=== PATIENT | female | born 1980 | race Caucasian/White ===

== ENCOUNTER 2019-09-04 13:21 | Emergency (ER) | payer OTHER, SELFPAY ==
[2019-09-04 14:32] LABS: Absolute Lymphocytes (CBC) 2.3 K/uL (0.7-4.9); Basophils % 1.2 % (0-1.3); Hematocrit 37.3 % (36.0-45.0); Lymphocytes % 48.4 % (15.3-44.8); MPV 8.7 fL (7.6-11.3); RBC Red Blood Cell Count 4.31 M/uL (3.86-4.86)
[2019-09-04 14:38] LABS: Protime INR 1.03
[2019-09-04 15:04] LABS: ALT/SGPT 18 U/L (12-78); AST/SGOT 9 U/L (15-37); Albumin 4.2 g/dL (3.4-5.0); Alkaline Phosphatase 53 U/L (45-117); BUN Blood Urea Nitrogen 15 mg/dL (7-18); Bicarbonate 26 mmol/L (21-32); Bilirubin Direct 0.2 mg/dL (0-0.2); Bilirubin Total 0.7 mg/dL (0.2-1.0); Glucose Level 86 mg/dL (74-106); Potassium 3.9 mmol/L (3.5-5.1); Protein, Total 7.5 g/dL (6.4-8.2); Sodium Level 140 mmol/L (136-145)
[2019-09-04] MEDS ORDERED: THIAMINE 200 MG/2 ML INJ ONE (15:08)
[2019-09-04 15:09] LABS: Urine Blood NEGATIVE (NEG); Urine Glucose NEGATIVE (NEG); Urine Protein TRACE (NEG); Urine Specific Gravity >1.030 (1.005-1.030); Urine pH 5.5 (5.0-7.0)
[2019-09-04 15:20] LABS: Barbiturates NEGATIVE (NEGATIVE); Benzodiazepines NEGATIVE (NEGATIVE); Cocaine NEGATIVE (NEGATIVE); METHAMPHETAM POSITIVE (NEGATIVE); Methadone NEGATIVE (NEGATIVE); Opiates NEGATIVE (NEGATIVE); Phencyclidine NEGATIVE (NEGATIVE); THC Cannibis NEGATIVE (NEGATIVE)
--- NOTE | 2019-09-04 15:39 | RAD REPORT ---
EXAM DESCRIPTION: CT - CTHCSPWOC - 09/04/2019 3:24 pm CLINICAL HISTORY: Trauma, head and neck injury. Weakness;Pain COMPARISON: No comparisons TECHNIQUE: Axial 5 mm thick images of the head were obtained. Axial 2 mm thick images of the cervical spine were obtained with sagittal and coronal reconstruction images generated and reviewed. All CT scans are performed using dose optimization technique as appropriate and may include automated exposure control or mA/KV adjustment according to patient size. FINDINGS: CT HEAD WITHOUT CONTRAST: No acute hemorrhage, hydrocephalus or extra-axial collection is identified.No areas of brain edema or midline shift. The paranasal sinuses and mastoids are clear.The calvarium is intact. CT CERVICAL SPINE WITHOUT CONTRAST: No fracture or subluxation.No prevertebral soft tissues swelling is identified. IMPRESSION: No acute intracranial or cervical spine findings.
--- NOTE | 2019-09-04 15:39 | RAD REPORT ---
EXAM DESCRIPTION: RAD - Chest Single View - 09/04/2019 3:28 pm CLINICAL HISTORY: COUGH Chest pain. COMPARISON: No comparisons FINDINGS: Portable technique limits examination quality. The lungs are grossly clear. The heart is normal in size. No displaced fractures. IMPRESSION: No acute intrathoracic process suspected.
[2019-09-04 15:52] LABS: Magnesium 2.3 mg/dL (1.8-2.4); NT PRO-BNP 16 pg/mL (<125); Troponin (Emerg Dept Use Only) < 0.02 ng/mL (0.0-0.045)
[2019-09-04] MEDS ORDERED: NA CHLORIDE 0.9% 1,000 ML ONE (16:23)
--- NOTE | 2019-09-04 17:08 | EDPHYS ---
Physician Documentation [facility] Name: Anne Marie Cruz Age: 39 yrs Sex: Female : 1980 Arrival Date: 09/04/2019 Time: 13:23 Bed 25 Private MD: ED Physician Greg Barry HPI: 09/04 14:49 This 39 yrs old Female presents to ER via EMS with complaints of ams x 1 day. efraín 14:49 ams. The patient presents with confusion, decreased mental status. Onset: The efraín symptoms/episode began/occurred this morning. Possible causes: unknown. Associated signs and symptoms: The patient has no apparent associated signs or symptoms. Current symptoms: In the emergency department the patient's symptoms are unchanged from the initial presentation. Patient's baseline: Neuro: alert and fully oriented. FLUE BLOWER: 17:53 lmp unknown mg2 Historical: - Allergies: 13:35 Latex, Natural Rubber; mg2 - Home Meds: 13:35 Clonazepam Oral [Active]; Tramadol Oral [Active]; mg2 - PMHx: 13:35 Chronic pain; Anxiety; mg2 - Immunization history:: Flu vaccine status is unknown. - Ebola Screening: : No symptoms or risks identified at this time. - Family history:: not pertinent. - Social history:: Smoking status: unknown. ROS: 14:49 Constitutional: Negative for fever, chills, and weight loss, Eyes: Negative for injury, efraín pain, redness, and discharge, ENT: Negative for injury, pain, and discharge, Neck: Negative for injury, pain, and swelling, Cardiovascular: Negative for chest pain, palpitations, and edema, Respiratory: Negative for shortness of breath, cough, wheezing, and pleuritic chest pain, Abdomen/GI: Negative for abdominal pain, nausea, vomiting, diarrhea, and constipation, Back: Negative for injury and pain, : Negative for injury, bleeding, discharge, and swelling, MS/Extremity: Negative for injury and deformity, Skin: Negative for injury, rash, and discoloration, Psych: Negative for depression, anxiety, suicide ideation, homicidal ideation, and hallucinations, Allergy/Immunology: Negative for hives, rash, and allergies, Endocrine: Negative for neck swelling, polydipsia, polyuria, polyphagia, and marked weight changes, Hematologic/Lymphatic: Negative for swollen nodes, abnormal bleeding, and unusual bruising. 14:49 Neuro: Positive for altered mental status. Exam: 14:49 Constitutional: This is a well developed, well nourished patient who is awake, alert, efraín and in no acute distress. Head/Face: Normocephalic, atraumatic. Eyes: Pupils equal round and reactive to light, extra-ocular motions intact. Lids and lashes normal. Conjunctiva and sclera are non-icteric and not injected. Cornea within normal limits. Periorbital areas with no swelling, redness, or edema. ENT: Nares patent. No nasal discharge, no septal abnormalities noted. Tympanic membranes are normal and external auditory canals are clear. Oropharynx with no redness, swelling, or masses, exudates, or evidence of obstruction, uvula midline. Mucous membranes moist. Neck: Trachea midline, no thyromegaly or masses palpated, and no cervical lymphadenopathy. Supple, full range of motion without nuchal rigidity, or vertebral point tenderness. No Meningismus. Chest/axilla: Normal chest wall appearance and motion. Nontender with no deformity. No lesions are appreciated. Cardiovascular: Regular rate and rhythm with a normal S1 and S2. No gallops, murmurs, or rubs. Normal PMI, no JVD. No pulse deficits. Respiratory: Lungs have equal breath sounds bilaterally, clear to auscultation and percussion. No rales, rhonchi or wheezes noted. No increased work of breathing, no retractions or nasal flaring. Abdomen/GI: Soft, non-tender, with normal bowel sounds. No distension or tympany. No guarding or rebound. No evidence of tenderness throughout. Back: No spinal tenderness. No costovertebral tenderness. Full range of motion. Female : Normal external genitalia. Skin: Warm, dry with normal turgor. Normal color with no rashes, no lesions, and no evidence of cellulitis. MS/ Extremity: Pulses equal, no cyanosis. Neurovascular intact. Full, normal range of motion. Neuro: Awake and alert, GCS 15, oriented to person, place, time, and situation. Cranial nerves II-XII grossly intact. Motor strength 5/5 in all extremities. Sensory grossly intact. Cerebellar exam normal. Normal gait. Psych: Awake, alert, with orientation to person, place and time. Behavior, mood, and affect are within normal limits. 14:49 Neck: External neck: is normal, no acute changes, C-spine: appears grossly normal, no acute changes, Thyroid: appears normal, no acute changes, Trachea: is midline with no obvious abnormalities, no acute changes, ROM/movement: no acute changes, pain, Meningeal signs: are not present, Kernig's sign is negative, Brudzinski's sign is negative. Vital Signs: 13:33 BP 147 / 90; Pulse 72; Resp 18; Temp 96.9(A); Pulse Ox 100% on R/A; mg2 14:30 BP 133 / 78; Pulse 80; Resp 18; Pulse Ox 100% on R/A; mg2 16:14 BP 135 / 92; Pulse 79; Resp 18; Pulse Ox 100% on R/A; mg2 17:00 BP 133 / 84; Pulse 70; Resp 18; Pulse Ox 100% on R/A; mg2 17:40 Temp 98.7(O); mg2 18:11 BP 119 / 79; Pulse 81; Resp 18; Temp 98.7(O); Pulse Ox 100% on R/A; mg2 MDM: 13:55 Patient medically screened. [facility] 14:51 Data reviewed: vital signs, nurses notes, lab test result(s), EKG, radiologic studies, [facility] CT scan, plain films. 09/04 14:02 Order name: Acetaminophen; Complete Time: 16:23 mg2 09/04 14:02 Order name: Basic Metabolic Panel; Complete Time: 16:23 mg2 09/04 14:02 Order name: CBC with Diff; Complete Time: 16:23 mg2 09/04 14:02 Order name: ETOH Level; Complete Time: 16:23 mg2 09/04 14:02 Order name: Hepatic Function; Complete Time: 16:23 mg2 09/04 14:02 Order name: PT-INR; Complete Time: 16:23 mg2 09/04 14:02 Order name: Ptt, Activated; Complete Time: 16:23 mg2 09/04 14:02 Order name: Salicylate; Complete Time: 16:23 mg2 09/04 14:02 Order name: Urine Drug Screen; Complete Time: 16:23 mg2 09/04 14:48 Order name: Magnesium; Complete Time: 16:23 efraín 09/04 14:48 Order name: NT PRO-BNP; Complete Time: 16:23 efraín 09/04 14:48 Order name: Troponin (emerg Dept Use Only); Complete Time: 16:23 [facility] 09/04 15:06 Order name: Urine Dipstick--Ancillary (enter results); Complete Time: 16:23 [facility] 09/04 14:02 Order name: EKG; Complete Time: 14:04 [facility] 09/04 14:02 Order name: EKG - Nurse/Tech; Complete Time: 14:28 [facility] 09/04 14:03 Order name: IV Saline Lock; Complete Time: 14:03 [facility] 09/04 14:03 Order name: Labs collected and sent; Complete Time: 14:29 [facility] 09/04 14:03 Order name: Urine Dipstick-Ancillary (obtain specimen); Complete Time: 14:56 [facility] 09/04 14:48 Order name: XRAY Chest (1 view); Complete Time: 16:23 [facility] 09/04 14:48 Order name: Cardiac monitoring; Complete Time: 14:56 [facility] 09/04 14:48 Order name: O2 Per Protocol; Complete Time: 14:56 [facility] 09/04 14:48 Order name: O2 Sat Monitoring; Complete Time: 14:56 [facility] 09/04 15:06 Order name: Urine --Ancillary (enter results) [facility] 09/04 15:10 Order name: Urine --Ancillary [facility] 09/04 15:10 Order name: CT Head C Spine; Complete Time: 16:23 [facility] 09/04 16:23 Order name: TSH [facility] 09/04 14:53 Order name: Urine Test (obtain specimen); Complete Time: 14:57 [facility] Administered Medications: 15:13 Drug: Thiamine 100 mg Route: IV; Rate: per protocol; Site: left forearm; mg2 17:40 Follow up: Response: No adverse reaction; IV Status: Completed infusion mg2 16:24 Drug: NS 0.9% 1000 ml Route: IV; Rate: 1 bolus; Site: left forearm; mg2 17:40 Follow up: Response: No adverse reaction; IV Status: Completed infusion; IV Intake: mg2 1000ml Disposition: 09/04/19 17:07 Discharged to Home. Impression: Weakness, Altered mental status, unspecified. - Condition is Stable. - Discharge Instructions: Weakness, Fatigue, Weakness, Iiro-rx-Dbsq. - Medication Reconciliation Form, Thank You Letter, Antibiotic Education, Prescription Opioid Use form. - Follow up: Private Physician; When: 2 - 3 days; Reason: Recheck today's complaints, Continuance of care, Re-evaluation by your physician. Follow up: Howard Arroyo MD; When: 2 - 3 days; Reason: Recheck today's complaints, Re-evaluation by your physician. - Problem is new. - Symptoms are unchanged. Signatures: Dispatcher [employer] [facility] Greg Barry MD MD cha Gardose, Michele RN RN mg2 Corrections: (The following items were deleted from the chart) 14:59 14:48 Centeno ordered. [facility] mg2 15:19 14:49 Head Brain Wo Cont+CT.RAD.BRZ ordered. [facility] EDNY 16:40 14:49 Arterial Blood Gas+RC.LAB.BRZ ordered. [facility] EDNY 17:08 17:07 09/04/2019 17:07 Discharged to Home. Impression: Weakness. Condition is Stable. [facility] Forms are Medication Reconciliation Form, Thank You Letter, Antibiotic Education, Prescription Opioid Use. Follow up: Private Physician; When: 2 - 3 days; Reason: Recheck today's complaints, Continuance of care, Re-evaluation by your physician. Problem is new. Symptoms are unchanged. [facility] 17:09 17:08 09/04/2019 17:07 Discharged to Home. Impression: Weakness; Altered mental status, efraín unspecified. Condition is Stable. Discharge Instructions: Weakness, Fatigue, Weakness, Kijz-uj-Atne. Forms are Medication Reconciliation Form, Thank You Letter, Antibiotic Education, Prescription Opioid Use. Follow up: Private Physician; When: 2 - 3 days; Reason: Recheck today's complaints, Continuance of care, Re-evaluation by your physician. Problem is new. Symptoms are unchanged. [facility] 18:15 17:09 09/04/2019 17:07 Discharged to Home. Impression: Weakness; Altered mental status, mg2 unspecified. Condition is Stable. Discharge Instructions: Weakness, Fatigue, Weakness, Lcvs-so-Efgp. Forms are Medication Reconciliation Form, Thank You Letter, Antibiotic Education, Prescription Opioid Use. Follow up: Private Physician; When: 2 - 3 days; Reason: Recheck today's complaints, Continuance of care, Re-evaluation by your physician. Follow up: Howard Arroyo; When: 2 - 3 days; Reason: Recheck today's complaints, Re-evaluation by your physician. Problem is new. Symptoms are unchanged. efraín
--- NOTE | 2019-09-04 17:08 | ER ---
Nurse's Notes [facility] Name: Anne Marie Cruz Age: 39 yrs Sex: Female : 1980 Arrival Date: 09/04/2019 Time: 13:23 Bed 25 Private MD: Diagnosis: Weakness;Altered mental status, unspecified Presentation: 09/04 13:30 Presenting complaint: EMS states: mother called us because her daughter was unable to mg2 wake up. on scene patient was able to follow commands, move and walk to the stretcher, put on her jacket but she refused to talk and open her eyes. BGL-86 mg/dl. Transition of care: patient was not received from another setting of care. Onset of symptoms was September 04, 2019. Risk Assessment: Do you want to hurt yourself or someone else? Patient reports no desire to harm self or others. Initial Sepsis Screen: Does the patient meet any 2 criteria? No. Patient's initial sepsis screen is negative. Does the patient have a suspected source of infection? No. Patient's initial sepsis screen is negative. Care prior to arrival: None. 13:30 Method Of Arrival: EMS: [facility] mg2 13:30 Acuity: PARISH 3 mg2 Triage Assessment: 13:35 General: Appears in no apparent distress. comfortable, Behavior is not talking or mg2 opening her eyes but v/s stable . Pain: Unable to use pain scale. Patient appears quiet. 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 - Ebola Screening: : No symptoms or risks identified at this time. - Family history:: not pertinent. - Social history:: Smoking status: unknown. Screenin:42 Abuse screen: Denies threats or abuse. Denies injuries from another. Nutritional mg2 screening: No deficits noted. Tuberculosis screening: No symptoms or risk factors identified. Fall Risk. Assessment: 13:43 General: Appears Behavior is quiet. Pain: Unable to use pain scale. Patient appears mg2 quiet. Neuro: patient refused to talk or open her eyes. Cardiovascular: Capillary refill < 3 seconds Patient's skin is warm and dry. Respiratory: Airway is patent Respiratory effort is even, unlabored, Respiratory pattern is regular, symmetrical. 13:43 GI: No deficits noted. : No deficits noted. EENT: patient refused to open her eyes.. mg2 13:43 Derm: Skin is intact, is healthy with good turgor, Skin is pink, warm \T\ dry. normal. mg2 Musculoskeletal: Circulation, motion, and sensation intact. Capillary refill < 3 seconds. 14:57 Reassessment: patient assisted by her sister to the restroom. mg2 17:30 Reassessment: Patient appears in no apparent distress at this time. patient up for d/c mg2 once IVF is completed. 18:13 Reassessment: patient was able to move from bed to the wheelchair when told so. she mg2 perfectly obeys command except that she still refused to talk and open her eyes. d/c in stable condition. Vital Signs: 13:33 BP 147 / 90; Pulse 72; Resp 18; Temp 96.9(A); Pulse Ox 100% on R/A; mg2 14:30 BP 133 / 78; Pulse 80; Resp 18; Pulse Ox 100% on R/A; mg2 16:14 BP 135 / 92; Pulse 79; Resp 18; Pulse Ox 100% on R/A; mg2 17:00 BP 133 / 84; Pulse 70; Resp 18; Pulse Ox 100% on R/A; mg2 17:40 Temp 98.7(O); mg2 18:11 BP 119 / 79; Pulse 81; Resp 18; Temp 98.7(O); Pulse Ox 100% on R/A; mg2 ED Course: 13:23 Patient arrived in ED. aa5 13:30 Gallo Macias, RN is Primary Nurse. mg2 13:33 Triage completed. mg2 13:35 Arm band placed on. mg2 13:55 Greg Barry MD is Attending Physician. efraín 14:03 No provider procedures requiring assistance completed. Inserted saline lock: 22 gauge mg2 in left forearm, using aseptic technique. 14:57 Patient has correct armband on for positive identification. 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 Pulse mg2 ox on. NIBP on. Door closed. Warm blanket given. 15:24 CT completed. Patient tolerated procedure well. Patient moved to radiology. bq 15:25 CT Head C Spine In Process Unspecified. EDMS 15:28 XRAY Chest (1 view) In Process Unspecified. EDMS 17:09 Howard Arroyo MD is Referral Physician. efraín 18:15 IV discontinued, intact, bleeding controlled, No redness/swelling at site. Pressure mg2 dressing applied. Administered Medications: 15:13 Drug: Thiamine 100 mg Route: IV; Rate: per protocol; Site: left forearm; mg2 17:40 Follow up: Response: No adverse reaction; IV Status: Completed infusion mg2 16:24 Drug: NS 0.9% 1000 ml Route: IV; Rate: 1 bolus; Site: left forearm; mg2 17:40 Follow up: Response: No adverse reaction; IV Status: Completed infusion; IV Intake: mg2 1000ml Intake: 17:40 IV: 1000ml; Total: 1000ml. mg2 Outcome: 17:07 Discharge ordered by . efraín 18:15 Discharged to home via wheelchair, with family. mg2 18:15 Condition: stable 18:15 Discharge instructions given to family, Instructed on discharge instructions, follow up and referral plans. Demonstrated understanding of instructions, follow-up care. 18:15 Patient left the ED. mg2 Signatures: Dispatcher [employer] Greg Wilson MD MD cha Quilty, Betty bq Calderon, Audri, RN RN aa5 Gallo Macias, HILLARY RN mg2
[2019-09-04 18:51] VITALS: O2SAT 100
[2019-09-04 18:55] VITALS: TEMP 98.7
[2019-09-04 18:56] VITALS: BP 119/79
--- NOTE | 2019-09-05 10:05 | EKG ---
Test Date: 2019-09-04 Test Time: 14:26:02 Career Services Officer: CLAU MEASUREMENT RESULTS: Intervals: Rate: 81 IL: 126 QRSD: 92 QT: 366 QTc: 425 [place]: P: 47 IL: 126 QRS: 53 T: 51 INTERPRETIVE STATEMENTS: Normal sinus rhythm Normal ECG No previous ECG available for comparison Electronically Signed On 09-05-19 10:04:42 STRAIGHTEDGE WORKER by Jayro Wall
== END 2019-09-04 18:15 | disposition home or self-care (01) ==
LOC: ER 13:21
DX: R53.1 Weakness (principal); F41.9 Anxiety disorder, unspecified; Z91.040 Latex allergy status; Z91.048 Other nonmedicinal substance allergy status
CPT/HCPCS: 36415; 70450; 71045; 72125; 80048; 80076; 80307; 80320; 80329; 81003; 81025; 83735; 83880; 84443; 84484; 85025; 85610; 85730; 93005; 96365; 96366; 99284; J3411; J7030

== ENCOUNTER 2019-09-29 09:09 | Emergency (ER) | payer SELFPAY ==
--- NOTE | 2019-09-29 09:45 | ER ---
Nurse's Notes [facility] Name: Anne Marie Cruz Age: 39 yrs Sex: Female : 1980 Arrival Date: 09/29/2019 Time: 09:11 Bed Waiting Private MD: Diagnosis: Presentation: 09/29 09:23 Presenting complaint: Patient states: "the police think i should go to the ER, because iw I'm on Beny Bentley". 09:25 Presenting complaint: Patient states: pt is A\\T\\O X 4, was brought to hospital by [place] PD, pt requesting to leave and see her PCP, does not want to be evaluated in ER, states she has not started her Zyprexa yet because the first Warning on the label stated she could , pt denies suicidal ideation and denies homicidal ideation. Transition of care: patient was not received from another setting of care. Onset of symptoms was September 29, 2019. Risk Assessment: Do you want to hurt yourself or someone else? Patient reports no desire to harm self or others. Initial Sepsis Screen: Does the patient meet any 2 criteria? No. Patient's initial sepsis screen is negative. Does the patient have a suspected source of infection? No. Patient's initial sepsis screen is negative. Care prior to arrival: None. 09:25 Method Of Arrival: Ambulatory iw 09:31 Acuity: PARISH 5 iw 09:31 Note pt states she wants to follow up with her PCP because it's cheaper. iw MINER PICK: 09:28 LMP 09/09/2019 iw Historical: - Allergies: 09:28 Latex, Natural Rubber; iw - PMHx: 09:28 Anxiety; Chronic pain; iw - Immunization history:: Adult Immunizations not up to date. - Social history:: Smoking status: Patient/guardian denies using tobacco. - Ebola Screening: : Patient negative for fever greater than or equal to 101.5 degrees Fahrenheit, and additional compatible Ebola Virus Disease symptoms Patient denies exposure to infectious person Patient denies travel to an Ebola-affected area in the 21 days before illness onset No symptoms or risks identified at this time. Vital Signs: 09:28 BP 129 / 87; Pulse 97; Resp 16; Temp 98.2; Pulse Ox 100% on R/A; Weight 67.59 kg; iw Height 5 ft. 4 in. (162.56 cm); Pain 0/10; 09:28 Body Mass Index 25.58 (67.59 kg, 162.56 cm) iw ED Course: 09:11 Patient arrived in ED. mr 09:28 Triage completed. iw 09:28 Arm band placed on. iw Administered Medications: No medications were administered Outcome: :44 Eloped from waiting room, before seeing physician Time discovered patient gone: iw September 29, 2019 at 09:44 09:45 Patient left the ED. iw Signatures: Thania De Los Santos mr Bernadette Vieyra, RN RN iw Corrections: (The following items were deleted from the chart) 09:31 09:25 Acuity: PARISH 3 iw iw
[2019-09-29 09:50] VITALS: BP 129/87; TEMP 98.2; O2SAT 100
== END 2019-09-29 09:45 | disposition left against medical advice (07) ==
LOC: ER 09:09
DX: Z53.21 Procedure and treatment not carried out due to patient leaving prior to being seen by health care provider (principal)
CPT/HCPCS: 99281

== ENCOUNTER 2021-06-01 16:31 | Emergency (ER) | payer OTHER ==
--- OUTSIDE RECORDS SUMMARY | 2021-06-01 16:34 | XMS REPORT | Continuity of Care Document ---
:[address] [facility] t Address [address] [place] [address] Care Team Providers Name Role Phone Chi Caceres MD Attending Clinician Peng PARKER Attending Clinician Ric Sims Attending Clinician Doctor Unassigned, Name Attending Clinician Unavailable Problems This patient has no known problems. Allergies, Adverse Reactions, Alerts This patient has no known allergies or adverse reactions. Medications This patient has no known medications. Procedures This patient has no known procedures. Encounters Start End Encounter Admission Attending Care Care Encounter Source Date/Time Date/Time Type Type Clinicians Facility Department ID 2021-05-25 2021-05-25 Telephone [facility] [id number] 00:00:00 00:00:00 [facility] [id number] [facility] [id number] Professio [phone] [place] [address] 2021-05-21 2021-05-21 [facility] [id number] 00:00:00 00:00:00 [facility] [id number] [facility] [id number] Professio [phone] [place] [address] 2021-05-05 2021-05-05 Emergency [facility] [id number] 11:42:00 13:42:00 Marc [place] [id number] [place] [id number] [place] [id number] 2021-05-04 2021-05-[address] [facility] [id number] 00:00:00 00:00:00 [facility] [id number] [place] [id number] Professio [phone] [place] [address] [address] 2021-05-03 2021-05-[address] [facility] [id number] 17:09:02 17:56:[facility] [id number] [place] [id number] Professio [phone] [place] [address] [address] 2021-04-25 2021-04-25 Office [facility] [id number] 10:32:12 10:47:12 Visit [facility] [id number] Edward [place] [id number] Professio [phone] [place] [address] [address] 2021-04-25 2021-04-25 Orders Doctor DESTINEY [id number] 00:00:00 00:00:00 Only Unassigned, IJEOMA [id number] [place] [facility] [id number] Results This patient has no known results.
[2021-06-01] MEDS ORDERED: DIPHENHYDRAMINE 50 MG/ML VIAL ONE (21:52)
[2021-06-01] MEDS ORDERED: LORazepam 2 MG/ML VIAL ONE (21:52)
[2021-06-01 23:17] LABS: Urine Blood Trace-lysed (Negative); Urine Glucose Negative (Negative); Urine Protein Negative (Negative); Urine Specific Gravity 1.025 (1.005-1.030); Urine pH 5.5 (5.0-7.0)
[2021-06-01 23:24] LABS: Basophils % 0.9 % (0-1.3); Hematocrit 38.3 % (36.0-45.0); Lymphocytes % 27.3 % (15.3-44.8); MPV 8.5 fL (7.6-11.3); RBC Red Blood Cell Count 4.37 M/uL (3.86-4.86)
[2021-06-01 23:28] LABS: Protime INR 1.03
[2021-06-01 23:29] LABS: Urine Specific Gravity/Preg 1.025 (1.005-1.030)
[2021-06-01 23:45] LABS: ALT/SGPT 21 U/L (12-78); AST/SGOT 16 U/L (15-37); Albumin 4.3 g/dL (3.4-5.0); Alkaline Phosphatase 84 U/L (45-117); BUN Blood Urea Nitrogen 9 mg/dL (7-18); Bicarbonate 28 mmol/L (21-32); Bilirubin Direct 0.1 mg/dL (0-0.2); Bilirubin Total 0.5 mg/dL (0.2-1.0); Glucose Level 84 mg/dL (74-106); Potassium 3.2 mmol/L (3.5-5.1); Protein, Total 7.9 g/dL (6.4-8.2); Sodium Level 139 mmol/L (136-145)
[2021-06-01 23:52] LABS: Barbiturates NEGATIVE (NEGATIVE); Benzodiazepines NEGATIVE (NEGATIVE); Cocaine NEGATIVE (NEGATIVE); METHAMPHETAM POSITIVE (NEGATIVE); Methadone NEGATIVE (NEGATIVE); Opiates NEGATIVE (NEGATIVE); Phencyclidine NEGATIVE (NEGATIVE); THC Cannibis NEGATIVE (NEGATIVE)
[2021-06-02] MEDS ORDERED: NA CHLORIDE 0.9% 500 ML ONE ×2 (01:31→04:34)
[2021-06-02] MEDS ORDERED: KCL 20 MEQ/100 mL IVPB 20 MEQ/100 ML BAG IV ONE (01:32)
--- NOTE | 2021-06-02 02:40 | EDPHYS ---
Physician Documentation [facility] Name: Anne Marie Cruz Age: 40 yrs Sex: Female : 1980 Arrival Date: 06/01/2021 Time: 16:55 Bed 14 Private MD: ED Physician Tian Plasencia HPI: 06/01 17:15 This 40 yrs old Female presents to ER via Unassigned with complaints of cp Confusion. 17:15 The patient presents to the emergency department with paranoia. Onset: The cp symptoms/episode began/occurred at an unknown time. Past psychiatric history: Prior diagnosis: ADHD, Psychiatric medications include: Adderall. Associated signs and symptoms: Pertinent negatives: abdominal pain, chest pain, homicidal ideation, suicide ideation. 17:15 Patient uncooperative, making paranoid statements concerning the government and cp attempting to take clothes off in ED. Historical: - Allergies: 06/02 03:01 Latex, Natural Rubber; bb - Home Meds: 03:01 Clonazepam Oral [Active]; Tramadol Oral [Active]; bb - PMHx: 03:01 Anxiety; Chronic pain; Bipolar disorder; bb - Immunization history:: Adult Immunizations unknown. - Social history:: Smoking status: unknown. ROS: 06/01 17:20 Constitutional: Negative for fever, poor PO intake. cp 17:20 Cardiovascular: Negative for chest pain. cp 17:20 Respiratory: Negative for cough, shortness of breath, wheezing. 17:20 Abdomen/GI: Negative for abdominal pain, nausea, vomiting, and diarrhea. 17:20 Neuro: Negative for headache. 17:20 All other systems are negative. 17:20 Psych: Positive for visual hallucinations, homicidal ideation, suicide gesture, cp suicidal ideation. 17:20 Eyes: Negative for injury, pain, redness, and discharge. cp 17:20 Unable to obtain ROS due to patient being uncooperative. Exam: 17:30 Constitutional: The patient appears in no acute distress, alert, awake, non-toxic, well cp developed, well nourished. 17:30 Head/Face: Normocephalic, atraumatic. cp 17:30 Eyes: Pupils: equal, round, and reactive to light and accomodation, Conjunctiva: normal, no exudate, no injection, Sclera: no appreciated abnormality, Lids and lashes: appear normal, bilaterally. 17:30 ENT: External ear(s): are unremarkable, Nose: is normal, Mouth: Lips: moist, Oral mucosa: moist, Posterior pharynx: Airway: no evidence of obstruction, patent. 17:30 Neck: ROM/movement: is normal, is supple, without pain, no range of motions limitations, no meningismus. 17:30 Chest/axilla: Inspection: normal, Palpation: is normal, no crepitus, no tenderness. 17:30 Cardiovascular: Rhythm: regular. 17:30 Respiratory: the patient does not display signs of respiratory distress, Respirations: normal, no use of accessory muscles, no retractions, labored breathing, is not present, Breath sounds: are clear throughout, no decreased breath sounds, no stridor, no wheezing. 17:30 Abdomen/GI: Inspection: abdomen appears normal, Palpation: abdomen is soft and non-tender, in all quadrants. 17:30 Neuro: Orientation: to person, situation, Motor: moves all fours, strength is normal. 17:30 Psych: Behavior/mood is uncooperative, Affect is animated. 22:30 ECG was reviewed by the Attending Physician. Vital Signs: 06/02 00:00 BP 111 / 75; Pulse 54; Resp 16; Pulse Ox 100% on R/A; fu 02:48 BP 119 / 64; Pulse 45; Resp 16; Temp 98.2(A); Pulse Ox 100% on R/A; fu 04:00 BP 114 / 81; Pulse 47; Resp 18; Temp 98(A); Pulse Ox 100% on R/A; fu Procedures: 06/01 22:59 Peripheral line: by aseptic technique a peripheral line was placed in the right antecubital vein. MDM: 06/02 00:30 Data reviewed: vital signs, nurses notes, lab test result(s), EKG, I have discussed the patient's presentation/case with the attending Emergency Department Physician; and as a result, I will attempt to transfer to psych facility for evaluation. 02:39 Patient medically screened. 06/01 16:56 Order name: Acetaminophen 06/01 16:56 Order name: Basic Metabolic Panel; Complete Time: 00:14 06/02 00:14 Interpretation: Normal except: K 3.2. 06/01 16:56 Order name: CBC with Diff; Complete Time: 00:14 cp 06/01 16:56 Order name: ETOH Level; Complete Time: 00:14 06/01 16:56 Order name: Hepatic Function; Complete Time: 00:14 cp 06/02 00:14 Interpretation: Normal except: GLOB 3.6. 06/01 16:56 Order name: PT-INR; Complete Time: 00:14 cp 06/01 16:56 Order name: Ptt, Activated; Complete Time: 00:14 cp 06/01 16:56 Order name: Salicylate; Complete Time: 00:14 cp 06/01 16:56 Order name: Urine Drug Screen; Complete Time: 00:14 cp 06/02 00:14 Interpretation: Abnormal: METHAMPHETAMINE POSITIVE. 06/01 16:56 Order name: Acetaminophen Level; Complete Time: 00:14 EDMS 06/01 22:57 Order name: Glucose, Ancillary Testing; Complete Time: 00:14 EDMS 06/01 23:17 Order name: Urine Dipstick-Ancillary; Complete Time: 00:14 EDMS 06/02 00:15 Interpretation: Normal except: UKET 3+; UBLD Trace-lysed. 06/01 23:21 Order name: Urine --Ancillary (enter results); Complete Time: 00:14 tt3 06/01 16:56 Order name: EKG; Complete Time: 16:56 06/01 16:56 Order name: EKG - Nurse/Tech 06/01 16:56 Order name: IV Saline Lock 06/01 16:56 Order name: Labs collected and sent 06/01 16:56 Order name: Suicide Screening ([place]) 06/01 16:56 Order name: Urine Dipstick-Ancillary (obtain specimen) 06/02 04:35 Order name: SARS-COV-2 RT PCR; Complete Time: 04:39 EDMS 06/01 16:56 Order name: Urine Test (obtain specimen) 06/02 01:14 Order name: Vital Signs; Complete Time: 02:51 cp EC/13 22:30 Rate is 74 beats/min. Rhythm is regular. SC interval is normal. QRS interval is normal. cp QT interval is normal. T waves are Inverted in lead aVR. Interpreted by me. Reviewed by me. Administered Medications: 20:01 Not Given (Physician Discretion): Geodon (ziprasidone) 10 mg IM once iw 20:01 Drug: Geodon (ziprasidone) 20 mg Route: IM; Site: left deltoid; iw 20:16 CANCELLED (Physician Discretion): Benadryl (diphenhydrAMINE) 25 mg IM once cp 20:16 CANCELLED (Physician Discretion): Ativan (LORazepam) 1 mg IM once cp 21:30 Drug: Benadryl (diphenhydrAMINE) 25 mg Route: IM; Site: left deltoid; bb 22:05 Drug: Ativan (LORazepam) 2 mg Route: IM; Site: left deltoid; bb 06/02 01:17 Drug: Potassium Chloride 20 mEq Route: IV; Rate: calculated rate; Site: right fu antecubital; 02:17 Follow up: Response: No adverse reaction fu 01:17 Drug: NS 0.9% 1000 ml Route: IV; Rate: 500 ml/hr; Site: right antecubital; fu 02:17 Follow up: Response: No adverse reaction; IV Intake: 1000ml fu Disposition Summary: 06/02/21 02:39 Transfer Ordered Transfer Location: [facility] Facility cp Reason: Higher level of care cp Condition: Stable cp Problem: an acute exacerbation cp Symptoms: are unchanged cp Accepting Physician: Dr. Da Silva(06/02/21 07:41) eb Diagnosis - Unspecified psychosis not due to a substance or known physiological condition cp Discharge Instructions: - Discharge Summary Sheet tt3 Forms: - Medication Reconciliation Form tt3 - SBAR form tt3 Addendum: 06/04/2021 07:10 Co-signature as Attending Physician, Tian Plasencia MD I agree with the assessment and k dr plan of care. Signatures: Dispatcher [employer] EDLA Tian Plasencia MD MD [facility] Barbara uHa RN RN bb Bernadette Vieyra RN RN iw Greg Olguin PA PA cp Isaac Pino RN RN Sushma Parsons Maurice, MD MD [email or web address] Corrections: (The following items were deleted from the chart) 06/01 20:16 16:56 Benadryl (diphenhydrAMINE) 25 mg IM once ordered. cp cp 20:16 17:40 Ativan (LORazepam) 1 mg IM once ordered. cp cp 06/02 03:10 02:58 CORONAVIRUS+MRKHADAR.BRZ ordered. EDMS EDMS 04:44 02:39 Doctor jeovanny [email or web address] 07:41 04:44 Dr. Da Silva [facility]
--- NOTE | 2021-06-02 02:40 | ER ---
Nurse's Notes [facility] Name: Anne Marie Cruz Age: 40 yrs Sex: Female : 1980 Arrival Date: 06/01/2021 Time: 16:55 Bed 14 Private MD: Diagnosis: Unspecified psychosis not due to a substance or known physiological condition Presentation: 06/02 00:00 Method Of Arrival: EMS: [facility] fu 00:00 Chief complaint: EMS states: paranoia. Coronavirus screen: At this time, unable to fu obtain information related to travel outside the [place] Ebola Screen: No symptoms or risks identified at this time. Initial Sepsis Screen: Does the patient meet any 2 criteria? No. Patient's initial sepsis screen is negative. Does the patient have a suspected source of infection? No. Patient's initial sepsis screen is negative. Risk Assessment: Do you want to hurt yourself or someone else? Patient reports desire/thoughts of hurting themselves or someone else. Provider notified. Onset of symptoms is unknown. 00:00 Acuity: PARISH 2 bb Historical: - Allergies: 03:01 Latex, Natural Rubber; bb - Home Meds: 03:01 Clonazepam Oral [Active]; Tramadol Oral [Active]; bb - PMHx: 03:01 Anxiety; Chronic pain; Bipolar disorder; bb - Immunization history:: Adult Immunizations unknown. - Social history:: Smoking status: unknown. Screenin:02 Abuse screen: Denies threats or abuse. Nutritional screening: No deficits noted. bb Tuberculosis screening: No symptoms or risk factors identified. Fall Risk None identified. Assessment: 00:00 General: Appears in no apparent distress. patient asleep at this time, restrained on fu both wrist and both legs, no circulatory impediments noted. Pain: Unable to use pain scale. asleep. 02:45 Reassessment: Received call from [facility] staff, updated on patient status, fu questions were answered. Needs COVID test result. To fax results to [phone]. 02:50 Reassessment: Received call from HILLARY [facility], Question fu were answered. Needs COVID test results. To fax COVID test results to [phone]. 03:32 Reassessment: Received call from [facility]. Questions were answered, fu Will call COVID results to [phone]. 03:45 Reassessment: Received call from [facility] [employer] stating that they can only fu accept patient if patient is out of restraints for 4 hours. 04:32 Reassessment: 4 point restraints checked, circulatory impediments noted. fu 05:25 Reassessment: Patient removed her restraints< IV line and trying to get out of bed and fu hospital premises. Code denton announced. 05:53 Reassessment: called pt's father per her request he said he would come pick her up bb after he got up this morning. 06:55 Reassessment: Patient left AMA, refuse to sign AMA paper, Patient father signed fu instead. Patient left ambulatory with her father. Vital Signs: 00:00 BP 111 / 75; Pulse 54; Resp 16; Pulse Ox 100% on R/A; fu 02:48 BP 119 / 64; Pulse 45; Resp 16; Temp 98.2(A); Pulse Ox 100% on R/A; fu 04:00 BP 114 / 81; Pulse 47; Resp 18; Temp 98(A); Pulse Ox 100% on R/A; fu ED Course: 06/01 16:55 Patient arrived in ED. kdr 16:55 Greg Olguin PA is PHCP. cp 16:55 Tian Plasencia MD is Attending Physician. cp 17:06 sister Jovanna called to leave her cell number [phone]/ she also left her mother's eb cell number at [phone]./ please call them if we need any assistance with her. 22:15 Arm band placed on Patient placed in an exam room, on a stretcher, on pulse oximetry. bb 22:30 Patient has correct armband on for positive identification. bb 23:36 Isaac Pino, HILLARY is Primary Nurse. fu 06/02 01:35 Triage completed. fu 01:35 No provider procedures requiring assistance completed. fu Administered Medications: 06/01 20:01 Not Given (Physician Discretion): Geodon (ziprasidone) 10 mg IM once iw 20:01 Drug: Geodon (ziprasidone) 20 mg Route: IM; Site: left deltoid; iw 20:16 CANCELLED (Physician Discretion): Benadryl (diphenhydrAMINE) 25 mg IM once cp 20:16 CANCELLED (Physician Discretion): Ativan (LORazepam) 1 mg IM once cp 21:30 Drug: Benadryl (diphenhydrAMINE) 25 mg Route: IM; Site: left deltoid; bb 22:05 Drug: Ativan (LORazepam) 2 mg Route: IM; Site: left deltoid; bb 08 01:17 Drug: Potassium Chloride 20 mEq Route: IV; Rate: calculated rate; Site: right fu antecubital; 02:17 Follow up: Response: No adverse reaction fu 01:17 Drug: NS 0.9% 1000 ml Route: IV; Rate: 500 ml/hr; Site: right antecubital; fu 02:17 Follow up: Response: No adverse reaction; IV Intake: 1000ml fu Intake: 02:17 IV: 1000ml; Total: 1000ml. fu Outcome: 02:39 ER care complete, transfer ordered by . cp 07:06 AMA Other Refused to sign fu 07:41 Patient left the ED. eb Signatures: Tian Plasencia MD MD [facility] Barbara Hua RN RN bb Bernadette Vieyra RN RN Greg Shetty PA PA Isaac Pino RN RN Sushma Parsons Corrections: (The following items were deleted from the chart) 01:28 01:25 General: Appears in no apparent distress. patient asleep at this time, restrained fu on both wrist and both legs, no circulatory impediments noted. fu 01:28 01:25 Pain: Unable to use pain scale. asleep fu fu 03:01 00:00 Acuity: PARISH 4 fu 03:10 03:01 CORONAVIRUS+MR.LAB.KENISHA drawn and sent. fu EDMS 03:22 02:45 Reassessment: Received call from [facility] staff, updated on patient fu status, questions were answered. Needs COVID test result. fu 06:27 04:25 BP 0 / ???; Response: No adverse reaction; IV Intake: 1000ml fu fu
[2021-06-02] MEDS ORDERED: CEFTRIAXONE/SWI 1gm 2 GM/20 ML SYR ONE (02:44)
[2021-06-02 07:49] VITALS: O2SAT 100
[2021-06-02 07:53] VITALS: BP 114/81; TEMP 98
== END 2021-06-02 07:41 ==
LOC: ER 16:31
PROC: 05HD33Z Insertion of Infusion Device into Right Cephalic Vein, Percutaneous Approach (ICD-10-PCS; principal; 2021-06-02)
DX: F29 Unspecified psychosis not due to a substance or known physiological condition (principal); F31.9 Bipolar disorder, unspecified; Z20.822 Contact with and (suspected) exposure to COVID-19; Z91.040 Latex allergy status; Z91.048 Other nonmedicinal substance allergy status
CPT/HCPCS: 93005; 85025; 80048; 36415; 80320; 80329 ×2; 81025; 85610; 82947; 80076; 85730; 81003; 80307; 96372; 96374; 99283; 36569; U0003; J1200; J3480; J0696; J7040 ×2

== ENCOUNTER 2021-06-24 18:41 | Emergency (ER) | payer OTHER ==
--- OUTSIDE RECORDS SUMMARY | 2021-06-24 18:44 | XMS REPORT | Continuity of Care Document ---
:1980 Author Organization [facility] t Address [address] [place] [address] Care Team Providers Name Role Phone Chi [...] Clinicians Facility Department ID 2021-05-25 2021-05-25 [id number] 00:00:00 00:00:00 [facility] [id number] [facility] [id number] Professio [phone] nal [address] 2021-05-21 2021-05-21 [facility] [id number] 00:00:00 00:00:00 [facility] [id number] [facility] [id number] Professio [phone] nal [address] 2021-05-05 2021-05-05 Emergency [facility] [id number] 11:42:00 13:42:00 Marc Bangura [id number] [place] [id number] [place] [phone] [phone] 2021-05-04 Telephone [facility] [id number] 00:00:00 00:00:00 [facility] [id number] [place] [id number] Professio [phone] [place] [address] [address] 2021-05-03 2021-05-03 Urgent [facility] [id number] 17:09:02 17:56:38 Care [facility] [id number] [place] [id number] Professio [phone] [place] [address] [address] 2021-04-25 2021-04-25 Office [facility] [id number] 10:32:12 10:47:12 Visit [facility] [id number] Edward [place] [id number] Professio [phone] [place] [address] [address] 2021-04-25 2021-04-25 Orders Doctor DESTINEY [id number] 00:00:00 00:00:00 Only Unassigned, IJEOMA [id number] [place] [facility] [phone] [id number] Results This patient has no known results.
--- NOTE | 2021-06-24 21:59 | EDPHYS ---
Physician Documentation [facility] Name: Anne Marie Cruz Age: 40 yrs Sex: Female : 1980 Arrival Date: 06/24/2021 Time: 18:41 Bed DX3 Private MD: ED Physician Jason White HPI: 06/24 21:54 This 40 yrs old Female presents to ER via Ambulatory with complaints of r/o cp covid. 21:54 The patient or guardian reports cough. cp 21:54 Onset: The symptoms/episode began/occurred for months. Associated signs and symptoms: cp Pertinent positives: sinus pressure/congestion times 1 week, headache times 1 day, Pertinent negatives: ear ache, fever, sore throat, vomiting. Severity of symptoms: in the emergency department the symptoms are unchanged. Patient admits to smoking 2 packs cigarettes per day. Historical: - Allergies: 20:33 Latex, Natural Rubber; kg - Home Meds: 20:33 Clonazepam Oral [Active]; Tramadol Oral [Active]; kg - PMHx: 20:33 Anxiety; Bipolar disorder; Chronic pain; kg - PSHx: 20:33 None; kg - Immunization history:: Adult Immunizations not up to date, Client reports having NOT received the Covid vaccine. - Social history:: Smoking status: Patient reports the use of cigarette tobacco products, smokes one pack cigarettes per day. ROS: 21:54 Eyes: Negative for injury, pain, redness, and discharge. cp 21:54 Constitutional: Negative for body aches, chills, fever, poor PO intake. 21:54 ENT: Positive for sinus congestion. 21:54 Cardiovascular: Negative for chest pain, palpitations. 21:54 Respiratory: Positive for cough, "sounds productive", Negative for shortness of breath, wheezing. 21:54 Abdomen/GI: Negative for abdominal pain, nausea, vomiting, and diarrhea. 21:54 Neuro: Positive for headache, Negative for altered mental status, weakness. Exam: 21:55 Constitutional: The patient appears in no acute distress, alert, awake, non-toxic, well cp developed, well nourished. 21:55 Head/face: Sinus tenderness, that is mild, is located over the right frontal sinus, left frontal sinus, right maxillary sinus and left maxillary sinus. 21:55 Eyes: Periorbital structures: appear normal, Conjunctiva: normal, no exudate, no injection, Sclera: no appreciated abnormality, Lids and lashes: appear normal, bilaterally. 21:55 ENT: External ear(s): are unremarkable, Ear canal(s): are normal, clear, TM's: dullness, bilaterally, Nose: is normal, Posterior pharynx: Airway: no evidence of obstruction, patent. 21:55 Neck: ROM/movement: is normal, is supple, no meningismus, no nuchal rigidity. 21:55 Chest/axilla: Inspection: normal, Palpation: is normal, no crepitus, no tenderness. cp 21:55 Cardiovascular: Rate: normal. 21:55 Respiratory: the patient does not display signs of respiratory distress, Respirations: normal, no use of accessory muscles, no retractions, labored breathing, is not present, Breath sounds: decreased breath sounds, are not appreciated, stridor, is not appreciated, + upper airway congestion. wheezing: is not appreciated. 21:55 Abdomen/GI: Exam negative for discomfort, distension, guarding, Inspection: abdomen appears normal. 21:55 Neuro: Orientation: to person, place \\T\\ time. Mentation: is normal, Motor: moves all cp fours, strength is normal, Gait: is steady, at a normal pace, without difficulty. Vital Signs: 20:30 BP 139 / 93; Pulse 97; Resp 20; Temp 98.1(TE); Pulse Ox 100% on R/A; Weight 72.57 kg kg (R); Height 5 ft. 4 in. (162.56 cm) (R); Pain 9/10; 20:30 Body Mass Index 27.46 (72.57 kg, 162.56 cm) kg MDM: 21:50 Patient medically screened. cp 21:57 Data reviewed: vital signs, nurses notes, lab test result(s). cp 21:57 Differential diagnosis: bronchitis, flu, URI, sinusitis. Counseling: I had a detailed cp discussion with the patient and/or guardian regarding: the historical points, exam findings, and any diagnostic results supporting the discharge/admit diagnosis, lab results, to return to the emergency department if symptoms worsen or persist or if there are any questions or concerns that arise at home. 06/24 20:08 Order name: COVID-19 : Document "Date of Symptom Onset" if Symptomatic. kg 06/24 20:36 Order name: CORONAVIRUS EDMS 06/24 21:30 Order name: SARS-COV-2 RT PCR; Complete Time: 22:01 EDMS Administered Medications: No medications were administered Disposition: 22:05 Chart complete. cp 06/25 07:40 Co-signature as Attending Physician, Jason White MD. [email or web address] Disposition Summary: 06/24/21 21:58 Discharge Ordered Location: Home cp Problem: new cp Symptoms: are unchanged cp Condition: Stable cp Diagnosis - Acute sinusitis, unspecified cp - Bronchitis, not specified as acute or chronic cp Followup: cp - With: Private Physician - When: 2 - 3 days - Reason: Worsening of condition Discharge Instructions: - Discharge Summary Sheet cp - Chronic Bronchitis, Adult cp - Sinusitis, Adult cp - Steps to Quit Smoking cp - Smoking Tobacco Information, Adult cp Forms: - Medication Reconciliation Form cp - Thank You Letter cp - Antibiotic Education cp - Prescription Opioid Use cp Prescriptions: - Flonase Allergy Relief 50 mcg/actuation Nasal spray,suspension - inhale 1 spray by INTRANASAL route once daily for 10 days; 1 Applicator; cp Refills: 0, Product Selection Permitted - Augmentin 875-125 mg Oral Tablet - take 1 tablet by ORAL route every 12 hours for 10 days; 20 tablet; Refills: 0, cp Product Selection Permitted - Tessalon Perles 100 mg Oral Capsule - take 2 capsule by ORAL route every 8 hours As needed; 20 capsule; Refills: 0, cp Product Selection Permitted Signatures: Dispatcher [employer] EDCT Greg Olguin PA PA cp Jason White MD MD 7 Rafaela Benavides, RN RN kg
--- NOTE | 2021-06-24 21:59 | ER ---
Nurse's Notes [facility] Name: Anne Marie Cruz Age: 40 yrs Sex: Female : 1980 Arrival Date: 06/24/2021 Time: 18:41 Bed DX3 Private MD: Diagnosis: Acute sinusitis, unspecified;Bronchitis, not specified as acute or chronic Presentation: 06/24 20:30 Chief complaint: Patient states: Headache, cough x 1 day. Coronavirus screen: Vaccine kg status: Patient reports being unvaccinated. Client denies travel out of the [place] in the last 14 days. At this time, unable to obtain information related to travel outside the [place] cough unrelated to allergies, headache, Client presents with at least one sign or symptom that may indicate coronavirus-19. Standard/surgical mask placed on the client. Provider contacted for isolation considerations. Ebola Screen: Patient negative for fever greater than or equal to 101.5 degrees Fahrenheit, and additional compatible Ebola Virus Disease symptoms Patient denies exposure to infectious person. Patient denies travel to an Ebola-affected area in the 21 days before illness onset. No symptoms or risks identified at this time. Initial Sepsis Screen: Does the patient meet any 2 criteria? No. Patient's initial sepsis screen is negative. Does the patient have a suspected source of infection? No. Patient's initial sepsis screen is negative. Risk Assessment: Do you want to hurt yourself or someone else? Patient reports no desire to harm self or others. Onset of symptoms was June 23, 2021. 20:30 Method Of Arrival: Ambulatory kg 20:30 Acuity: PARISH 4 kg Triage Assessment: 20:33 General: Appears in no apparent distress. Behavior is calm, cooperative, appropriate kg for age, quiet. Pain: Complains of pain in Head. Historical: - Allergies: 20:33 Latex, Natural Rubber; kg - Home Meds: 20:33 Clonazepam Oral [Active]; Tramadol Oral [Active]; kg - PMHx: 20:33 Anxiety; Bipolar disorder; Chronic pain; kg - PSHx: 20:33 None; kg - Immunization history:: Adult Immunizations not up to date, Client reports having NOT received the Covid vaccine. - Social history:: Smoking status: Patient reports the use of cigarette tobacco products, smokes one pack cigarettes per day. Screenin:00 Abuse screen: Denies threats or abuse. Denies injuries from another. Nutritional lp1 screening: No deficits noted. Tuberculosis screening: No symptoms or risk factors identified. Fall Risk None identified. Assessment: 22:00 Reassessment: Patient appears in no apparent distress at this time. Patient is alert, lp1 oriented x 3, equal unlabored respirations, skin warm/dry/pink. Patient assessed on discharge, no apparent distress; talking on phone during discharge instructions, demonstrates understanding. 22:00 Neuro: Level of Consciousness is awake, alert, obeys commands. Respiratory: Respiratory lp1 effort is even, unlabored. Derm: Skin is pink, warm \T\ dry. Vital Signs: 20:30 BP 139 / 93; Pulse 97; Resp 20; Temp 98.1(TE); Pulse Ox 100% on R/A; Weight 72.57 kg kg (R); Height 5 ft. 4 in. (162.56 cm) (R); Pain 9/10; 20:30 Body Mass Index 27.46 (72.57 kg, 162.56 cm) kg ED Course: 18:41 Patient arrived in ED. as 20:33 Triage completed. kg 21:46 Greg Olguin PA is PHCP. cp 21:46 Jason White MD is Attending Physician. cp 22:00 Patient has correct armband on for positive identification. lp1 22:00 No provider procedures requiring assistance completed. Patient did not have IV access lp1 during this emergency room visit. 22:15 Joslyn Rocha, RN is Primary Nurse. lp1 Administered Medications: No medications were administered Outcome: 21:58 Discharge ordered by MD. cp 22:15 Discharged to home ambulatory. lp1 22:15 Condition: good 22:15 Discharge instructions given to patient, Instructed on discharge instructions, follow up and referral plans. medication usage, Demonstrated understanding of instructions, follow-up care, medications, Prescriptions given X 3. 22:15 Patient left the ED. lp1 Signatures: Krista Hadley as Joslyn Rocha, RN RN lp1 Greg Olguin PA PA cp Rafaela Benavides RN RN kg
[2021-06-24 22:31] VITALS: BP 139/93; TEMP 98.1; O2SAT 100
== END 2021-06-24 22:15 | disposition home or self-care (01) ==
LOC: ER 18:41
DX: J40 Bronchitis, not specified as acute or chronic (principal); J01.90 Acute sinusitis, unspecified; F31.9 Bipolar disorder, unspecified; F17.210 Nicotine dependence, cigarettes, uncomplicated; Z91.040 Latex allergy status; Z20.822 Contact with and (suspected) exposure to COVID-19
CPT/HCPCS: 99282; U0003

== ENCOUNTER 2022-06-24 11:30 | Emergency (ER) | payer OTHER ==
--- OUTSIDE RECORDS SUMMARY | 2022-06-24 11:33 | XMS REPORT | Continuity of Care Document ---
:1980 Author Organization [facility] t Address [address] [place] [address] Care Team Providers Name Role Phone LAURA BELTRAN Primary Care Physician Unavailable LAURA BELTRAN Attending Clinician Unavailable Ruby PARKER, Laura Mireles Attending Clinician Marc Khoury MD Attending Clinician Nayla Sims Attending Clinician Doctor Unassigned, [place] Attending Clinician Unavailable Payers Payer Name Policy Type Policy Number Effective Date Expiration Date [facility] [id number] 2017 [facility] MEDICAID 00:00:00 Problems Condition Condition Condition Status Onset Resolution Last Treating Co mments Source Name Details Category Date Date Treatment Clinician Date Bipolar 1 Bipolar 1 Disease Active Uni vers disorder, disorder, 9-29 ity of manic, manic, 00:00: [place] mild mild 00 Medical Branch Attention Attention Disease Active Uni vers deficit deficit 8-09 ity of disorder disorder 00:00: [place] (ADD) in (ADD) in 00 Medica l adult adult Branch Allergies, Adverse Reactions, Alerts Allergy Allergy Status Severity Reaction(s) Onset Inactive Treating Comm ents Source Name Type Date Date Clinician NO KNOWN Drug Active Univers ALLERGIE Class ity of S [facility] Social History Social Habit Start Date Stop Date Quantity Comments Source Exposure to 2022-05-25 2022-06-04 Not sure [facility] SARS-CoV-2 00:00:00 13:05:00 [facility] (event) Branch Alcohol intake 2022-04-28 2022-04-28 Ex-drinker [facility] 00:00:00 00:00:00 (finding) [facility] Tobacco use and 2021-03-28 2021-03-28 Smokeless tobacco Un iversity of exposure 00:00:00 00:00:00 non-user [facility] History of 2010-03-28 Cigarette Smoker Universi ty of tobacco use 00:00:00 [facility] Sex Ass[birth year] At [birth year] Universit y of 00:00:00 00:00:00 [facility] Smoking Status Start Date Stop Date Source Ex-smoker 2021-03-28 00:00:00 2021-03-28 00:00:00 Universi ty of [facility] Medications Ordered Filled Start Stop Current Ordering Indication Dosage Frequency Signature Comments Components Source Medication Medication Date Date Medication? Clinician (SIG) Name Name clonazePAM Yes .5mg Take 0.5 Uni vers 0.5 mg 8-16 mg by ity of tablet 13:20: mouth at [place] [address] bedtime. Medical Branch clonazePAM Yes .5mg Take 0.5 Uni vers 0.5 mg 8-16 mg by ity of tablet 13:20: mouth at [place] [address] bedtime. Medical Branch traZODone 2021- No 50mg Take 50 mg U nivers 50 mg 8-16 08-16 by mouth ity of tablet 13:19: 00:00 at [place] 27 :00 bedtime. Medical Branch traZODone 2021- No 50mg Take 50 mg U nivers 50 mg 8-16 08-16 by mouth ity of tablet 13:19: 00:00 at [place] 27 :00 bedtime. Medical Branch lithium 2021- No 900mg Take 900 Univ ers carbonate 8-16 08-16 mg by ity of 300 mg 13:17: 00:00 mouth at [place] tablet 48 :00 bedtime. Medical Branch lithium 2021- No 900mg Take 900 Univ ers carbonate 8-16 08-16 mg by ity of 300 mg 13:17: 00:00 mouth at [place] tablet 48 :00 bedtime. Medical Branch dextroamphe 2-0 Yes [id number] 20mg Take 1 Univers tamine-amph 8-16 tablet by ity of etamine 00:00: mouth in [place] (ADDERALL) 00 the Medical 20 mg morning Branch tablet and 1 tablet in the evening. dextroamphe 2022-0 Yes [id number] 20mg Take 1 Univers tamine-amph 8-16 tablet by ity of etamine 00:00: mouth in [place] (ADDERALL) 00 the Medical 20 mg morning Branch tablet and 1 tablet in the evening. benzonatate 2021-0 2022- No [id number] 100mg Take 1 Univers 100 mg 7-10 08-16 capsule by ity of capsule 00:00: 00:00 mouth 3 [place] 00 :00 (three) Medical times Branch daily as needed for Cough. benzonatate 2021-0 2- No [id number] 100mg Take 1 Univers 100 mg 7-10 08-16 capsule by ity of capsule 00:00: 00:00 mouth 3 [place] 00 :00 (three) Medical times Branch daily as needed for Cough. lamoTRIgine 2021-0 Yes 50mg Take 50 mg Univers 25 mg 6-30 by mouth ity of tablet 00:00: in the [place] 00 morning. Medical Branch lamoTRIgine 2021-0 Yes 50mg Take 50 mg Univers 25 mg 6-30 by mouth ity of tablet 00:00: in the [place] 00 morning. Medical Branch amoxicillin 2020-0 Yes 1{tbl} Take 1 Un ninoska -clavulanat 9-29 tablet by ity of e 15:10: mouth 2 [place] (AUGMENTIN) 21 (two) Medical 875-125 mg times Branch per tablet daily. OXcarbazepi 2020-0 Yes 300mg Take 300 U nivers ne 300 mg 9-29 mg by ity of tablet 15:10: mouth at [place] [address] bedtime. Medical Branch amoxicillin 2020-0 Yes 1{tbl} Take 1 Un ninoska -clavulanat 9-29 tablet by ity of e 15:10: mouth 2 [place] (AUGMENTIN) 21 (two) Medical 875-125 mg times Branch per tablet daily. OXcarbazepi 2021-0 Yes 300mg Take 300 U nivers ne 300 mg 9-29 mg by ity of tablet 15:10: mouth at [place] 21 bedtime. Medical Branch benzonatate Yes [id number] 100mg Take 1 Univers 100 mg 7-17 capsule by ity of capsule 00:00: mouth 3 [place] 00 (three) Medical times [place] daily as needed for Cough. benzonatate Yes [id number] 100mg Take 1 Univers 100 mg 7-17 capsule by ity of capsule 00:00: mouth 3 [place] 00 (three) Medical times [place] daily as needed for Cough. pantoprazol Yes [id number] 40mg Take 1 Univers e 40 mg EC 6-09 tablet by ity of tablet 00:00: mouth [place] 00 daily. Medical Branch pantoprazol Yes [id number] 40mg Take 1 Univers e 40 mg EC 6-09 tablet by ity of tablet 00:00: mouth [place] 00 daily. [facility] Immunizations Ordered Filled Immunization Date Status Comments [facility] e Immunization Name Name SARS-COV-2 COVID-19 2021-01-15 Completed Unive rsity of LUISANA/J&J VACCINE 00:00:00 [facility] SARS-COV-2 COVID-19 2021-01-15 Completed Unive rsity of LUISANA/J&J VACCINE 00:00:00 [facility] Vital Signs Vital Name Observation Time Observation Value Comments Source Systolic blood 2022-06-04 18:16:00 115 mm[Hg] Univer [facility] Diastolic blood 2022-06-04 18:16:00 74 [facility]Hg] [facility] Body height 2022-06-04 18:16:00 162.6 cm [facility] Body weight 2022-06-04 18:16:00 64.864 kg [facility] BMI 2022-06-04 18:16:00 24.55 kg/m2 [facility] Procedures This patient has no known procedures. Encounters Start End Encounter Admission Attending Care Care Encounter Source Date/Time Date/Time Type Type Clinicians Facility Department ID 2022-07-09 2022-07-09 Outpatient Casey BELTRAN [facility] [id number] Univers 09:15:00 09:15:00 LAURA [id number] [facility] 2022-07-09 2022-07-09 Outpatient R RUBY [facility] [id number] Univers 09:15:00 09:15:00 LAURA bates [facility] 2022-06-04 2022-06-04 Outpatient Casey BELTRAN [facility] [id number] Univers 13:15:00 13:32:49 LAURA bates [facility] 2022-06-04 2022-06-04 Office [facility] [id number] Univers 13:15:00 13:30:00 Visit [facility] [id number] it y of Edward RAYRAYBARB [id number] Jorge Alberto as LUCIUS?BLEA [phone] Tn fuentes BECERRA [address] [place] [address] OFFICE BUILDING 2021-05-25 2021-05-25 Telephone [facility] [id number] 00:00:00 00:00:00 [facility] [id number] Edward [place] [id number] Professio [phone] [place] [address] Office [facility] One 2021-05-21 2021-05-21 Refill [facility] [id number] 00:00:00 00:00:00 [facility] [id number] Edward [place] [id number] Professio [phone] [place] [address] Office [facility] One 2021-05-05 2021-05-05 Emergency [facility] [id number] 11:42:00 13:42:00 Marc [place] [id number] [place] [id number] Ralph [id number] 2021-05-04 2021-05-04 Telephone [facility] [id number] 00:00:00 00:00:00 Nayla [facility] [id number] [place] [id number] Professio [phone] [place] [address] Office [facility] One 2021-05-03 2021-05-03 Urgent [facility] [id number] 17:09:02 17:56:38 Care [facility] 350..13.10 Sveta [id number] Profchrissy [phone] nal 044 Office Building One 2021-04-25 2021-04-25 Office Juan Pabloartie [facility] [id number] 10:32:12 10:47:12 Visit [facility] 350..13.10 Edward Sveta [id number] Profchrissy [phone] nal 044 Office Building One 2021-04-25 2021-04-25 Orders Doctor DESTINEY [id number] 00:00:00 00:00:00 Only Unassigned, [place] [id number] [place] [facility] [id number] Results This patient has no known results.
[2022-06-24 12:42] LABS: Absolute Lymphocytes (CBC) 3.1 K/uL (0.7-4.9); Hematocrit 38.7 % (36.0-45.0); Lymphocytes % 28.9 % (15.3-44.8); MPV 8.4 fL (7.6-11.3); RBC Red Blood Cell Count 4.35 M/uL (3.86-4.86)
[2022-06-24 12:46] LABS: Protime INR 1.03
[2022-06-24 13:00] LABS: ALT/SGPT 14 U/L (12-78); AST/SGOT 4 U/L (15-37); Albumin 3.5 g/dL (3.4-5.0); Alkaline Phosphatase 68 U/L (45-117); BUN Blood Urea Nitrogen 9 mg/dL (7-18); Bicarbonate 29 mmol/L (21-32); Bilirubin Direct < 0.1 mg/dL (0-0.2); Bilirubin Total 0.4 mg/dL (0.2-1.0); Glomerular Filtration Rate 98 ml/min (=/>90); Glucose Level 123 mg/dL (74-106); Potassium 3.3 mmol/L (3.5-5.1); Protein, Total 7.1 g/dL (6.4-8.2); Sodium Level 139 mmol/L (136-145)
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
[2022-06-24 14:19] LABS: SARS-CoV-2 Antigen Rapid Res Negative (Negative)
[2022-06-24] MEDS ORDERED: DIAZEPAM 5 MG TABLET ONE (18:40)
[2022-06-24 18:43] LABS: Urine Blood 1+ (Negative); Urine Glucose Negative (Negative); Urine Protein Negative (Negative); Urine Specific Gravity 1.015 (1.005-1.030)
[2022-06-24 18:58] LABS: Barbiturates NEGATIVE (NEGATIVE); Benzodiazepines NEGATIVE (NEGATIVE); Cocaine NEGATIVE (NEGATIVE); METHAMPHETAM POSITIVE (NEGATIVE); Methadone NEGATIVE (NEGATIVE); Opiates NEGATIVE (NEGATIVE); Phencyclidine NEGATIVE (NEGATIVE); THC Cannibis NEGATIVE (NEGATIVE)
[2022-06-24 20:21] LABS: Urine Specific Gravity/Preg 1.015 (1.005-1.030)
[2022-06-25 01:51] VITALS: BP 119/84; TEMP 98.3; O2SAT 100
== END 2022-06-24 22:42 | disposition home or self-care (01) ==
LOC: ER 11:30
DX: R44.2 Other hallucinations (principal); T43.625A Adverse effect of amphetamines, initial encounter; F31.9 Bipolar disorder, unspecified; Z20.822 Contact with and (suspected) exposure to COVID-19; Z91.040 Latex allergy status; Z91.048 Other nonmedicinal substance allergy status
CPT/HCPCS: 36415; 80048; 80076; 80307; 80320; 80329; 81003; 81025; 85025; 85610; 85730; 87811; 99284

== ENCOUNTER 2022-07-22 07:20 | Emergency (ER) | payer OTHER ==
--- OUTSIDE RECORDS SUMMARY | 2022-07-22 07:24 | XMS REPORT | Continuity of Care Document ---
:1980 Author Organization [facility] t Address [address] [place] [address] Care Team Providers Name Role Phone Laura Caceres MD Primary Care Physician [phone] LAURA CACERES Attending Clinician Unavailable Morris PARKER, Laura Mireles Attending Clinician Marc Khoury MD Attending Clinician Nayla Sims Attending Clinician Doctor Unassigned, Ald[place] Attending Clinician Unavailable Payers Payer Name Policy Type Policy Number Effective Date Expiration Date [facility] [id number] 2017 [facility] STAR 00:00:00 Problems Condition Condition Condition Status Onset [...] Active Univers ALLERGIE Class ity of S [facility] Social History Social Habit Start Date Stop Date Quantity Comments Source Exposure to 2022-06-29 2022-07-09 Not sure [facility] SARS-CoV-2 00:00:00 08:58:00 [facility] (event) Branch Tobacco use and 2022-07-09 2022-07-09 Smokeless tobacco Un iversity of exposure 00:00:00 00:00:00 non-user [facility] Alcohol intake 2022-07-09 2022-07-09 Ex-drinker [facility] 00:00:00 00:00:00 (finding) [facility] History of 2010-03-28 Cigarette Smoker Universi ty of tobacco use 00:00:00 [facility] Sex Ass[birth year] Universit y of 00:00:00 00:00:00 [facility] Smoking Status Start Date Stop Date Source Ex-smoker 2022-07-09 00:00:00 2022-07-09 00:00:00 Universi ty of [facility] Medications Ordered Filled Start Stop Current Ordering Indication Dosage Frequency Signature Comments Components Source Medication Medication Date Date Medication? Clinician (SIG) Name Name traZODone Yes 100mg Take 100 Uni vers 100 mg 9-20 mg by ity of tablet 09:29: mouth at [place] [address] bedtime. Medical Branch traZODone Yes 100mg Take 100 Uni vers 100 mg 9-20 mg by ity of tablet 09:29: mouth [address] traZODone Yes 100mg Take 100 Uni vers 100 mg 9-20 mg by ity of tablet 09:29: mouth [address] Branch traZODone Yes 100mg Take 100 Uni vers 100 mg 9-20 mg by ity of tablet 09:29: mouth [address] Branch clonazePAM 2021- No .5mg Take 0.5 Un ninoska 0.5 mg 9-20 09-20 mg by ity of tablet 09:29: 00:00 mouth at [place] 09 :00 bedtime. Medical Branch clonazePAM 2021-2021- No .5mg Take 0.5 Un ninoska 0.5 mg 9-20 09-20 mg by ity of tablet 09:29: 00:00 mouth at [place] 09 :00 bedtime. Medical Branch OXcarbazepi 2021- No 300mg Take 300 Univers ne 300 mg 9-20 09-20 mg by ity of tablet 09:28: 00:00 mouth at [place] 57 :00 bedtime. Medical Branch OXcarbazepi 2021- No 300mg Take 300 Univers ne 300 mg 9-20 09-20 mg by ity of tablet 09:28: 00:00 mouth at [place] 57 :00 bedtime. Medical Branch amoxicillin 2021-2021- No 1{tbl} Take 1 U nivers -clavulanat 9-20 09-20 tablet by it y of e 09:28: 00:00 mouth 2 [place] (AUGMENTIN) 22 :00 (two) Medical 875-125 mg times Branch per tablet daily. amoxicillin 2021- No 1{tbl} Take 1 U nivers -clavulanat 9-20 09-20 tablet by it y of e 09:28: 00:00 mouth 2 [place] (AUGMENTIN) 22 :00 (two) Medical 875-125 mg times Branch per tablet daily. dextroamphe 2021-0 Yes [id number] 20mg Take 1 Univers tamine-amph 9-20 tablet by ity of etamine 00:00: mouth in [place] (ADDERALL) 00 the Medical 20 mg morning Branch tablet and 1 tablet in the evening. dextroamphe 2021-0 Yes [id number] 20mg Take 1 Univers tamine-amph 9-20 tablet by ity of etamine 00:00: mouth in [place] (ADDERALL) 00 the Medical 20 mg morning Branch tablet and 1 tablet in the evening. dextroamphe 2021-0 Yes [id number] 20mg Take 1 Univers tamine-amph 9-20 tablet by ity of etamine 00:00: mouth in [place] (ADDERALL) 00 the Medical 20 mg morning Branch tablet and 1 tablet in the evening. dextroamphe 2021-0 Yes [id number] 20mg Take 1 Univers tamine-amph 9-20 tablet by ity of etamine 00:00: mouth in [place] (ADDERALL) 00 the Medical 20 mg morning Branch tablet and 1 tablet in the evening. dextroamphe 2021-0 2021- No [id number] 20mg Take 1 Univers tamine-amph 9-20 09-20 tablet by it y of etamine 00:00: 00:00 mouth in [place] (ADDERALL) 00 :00 the Medical 20 mg morning Branch tablet and 1 tablet in the evening. clonazePAM 2021-0 Yes .5mg Take 0.5 Uni vers 0.5 mg 8-16 mg by ity of tablet 13:20: mouth at [place] 16 bedtime. Medical Branch clonazePAM 2021-0 Yes .5mg Take 0.5 Uni vers 0.5 mg 8-16 mg by ity of tablet 13:20: mouth at [place] 16 bedtime. Medical Branch traZODone 2021-0 2- No 50mg Take 50 mg U nivers 50 mg 8-16 08-16 by mouth ity of tablet 13:19: 00:00 at [place] 27 :00 bedtime. Medical Branch traZODone 2021-0 2021- No 50mg Take 50 mg U nivers 50 mg 8-16 08-16 by mouth ity of tablet 13:19: 00:00 at [place] 27 :00 bedtime. Medical Branch lithium 2021-0 2- No 900mg Take 900 Univ ers carbonate 8-16 08-16 mg by ity of 300 mg 13:17: 00:00 mouth at [place] tablet 48 :00 bedtime. Medical Branch lithium 2021-0 2- No 900mg Take 900 Univ ers carbonate 8-16 08-16 mg by ity of 300 mg 13:17: 00:00 mouth at [place] tablet 48 :00 bedtime. Medical Branch dextroamphe 2021-0 Yes [id number] 20mg Take 1 Univers tamine-amph 8-16 tablet by ity of etamine 00:00: mouth in [place] (ADDERALL) 00 the Medical 20 mg morning Branch tablet and 1 tablet in the evening. dextroamphe 2-0 Yes [id number] 20mg Take 1 Univers tamine-amph 8-16 tablet by ity of etamine 00:00: mouth in [place] (ADDERALL) 00 the Medical 20 mg morning Branch tablet and 1 tablet in the evening. dextroamphe 2021-0 2- No [id number] 20mg Take 1 Univers tamine-amph 8-16 09-20 tablet by it y of etamine 00:00: 00:00 mouth in [place] (ADDERALL) 00 :00 the Medical 20 mg morning Branch tablet and 1 tablet in the evening. dextroamphe 2021-0 2021- No [id number] 20mg Take 1 Univers tamine-amph 8-16 09-20 tablet by it y of etamine 00:00: 00:00 mouth in [place] (ADDERALL) 00 :00 the Medical 20 mg morning Branch tablet and 1 tablet in the evening. benzonatate 2021-0 2021- No [id number] 100mg Take 1 Univers 100 mg 7-10 08-16 capsule by ity of capsule 00:00: 00:00 mouth 3 [place] 00 :00 (three) Medical times Branch daily as needed for Cough. benzonatate 2021-0 2021- No [id number] 100mg Take 1 Univers 100 mg 7-10 08-16 capsule by ity of capsule 00:00: 00:00 mouth 3 [place] 00 :00 (three) Medical times Branch daily as needed for Cough. lamoTRIgine 2021-0 Yes 50mg Take 50 mg Univers 25 mg 6-30 by mouth ity of tablet 00:00: in the [place] 00 morning. Medical Branch lamoTRIgine 2021-0 Yes 50mg Take 50 mg Univers 25 mg 6-30 by mouth ity of tablet 00:00: in the [place] 00 morning. Medical Branch lamoTRIgine 2022-0 Yes 50mg Take 50 mg Univers 25 mg 6-30 by mouth ity of tablet 00:00: in the [place] [address] morning. Medical Branch lamoTRIgine 2021-0 Yes 50mg Take 50 mg Univers 25 mg 6-30 by mouth ity of tablet 00:00: in the [place] 00 morning. Medical Branch lamoTRIgine 2021-0 Yes 50mg Take 50 mg Univers 25 mg 6-30 by mouth ity of tablet 00:00: in the [place] 00 morning. Medical Branch lamoTRIgine 2022-0 Yes 50mg Take 50 mg Univers 25 mg 6-30 by mouth ity of tablet 00:00: in the [place] [address] morning. Medical Branch amoxicillin 2020-0 Yes 1{tbl} Take 1 Un ninoska -clavulanat 9-29 tablet by ity of e 15:10: mouth 2 [place] (AUGMENTIN) 21 (two) Medical 875-125 mg times Branch per tablet daily. OXcarbazepi 2021-0 Yes 300mg Take 300 U nivers ne 300 mg 9-29 mg by ity of tablet 15:10: mouth at [place] 21 bedtime. Medical Branch amoxicillin Yes 1{tbl} Take 1 Un ninoska -clavulanat 9-29 tablet by ity of e 15:10: mouth 2 [place] (AUGMENTIN) 21 (two) Medical 875-125 mg times Branch per tablet daily. OXcarbazepi Yes 300mg Take 300 U nivers ne 300 mg 9-29 mg by ity of tablet 15:10: mouth at [place] 21 bedtime. Medical Branch benzonatate Yes [id number] 100mg Take 1 Univers 100 mg 7-17 capsule by ity of capsule 00:00: mouth 3 [place] 00 (three) Medical times Branch daily as needed for Cough. benzonatate Yes [id number] 100mg Take 1 Univers 100 mg 7-17 capsule by ity of capsule 00:00: mouth 3 [place] 00 (three) Medical times Branch daily as needed for Cough. benzonatate 2021- No [id number] 100mg Take 1 Univers 100 mg 7-17 09-20 capsule by ity of capsule 00:00: 00:00 mouth 3 [place] 00 :00 (three) Medical times Branch daily as needed for Cough. benzonatate 2021- No [id number] 100mg Take 1 Univers 100 mg 7-17 09-20 capsule by ity of capsule 00:00: 00:00 mouth 3 [place] 00 :00 (three) Medical times Branch daily as needed for Cough. pantoprazol Yes [id number] 40mg Take 1 Univers e 40 mg EC 6-09 tablet by ity of tablet 00:00: mouth [place] 00 daily. Medical Branch pantoprazol Yes [id number] 40mg Take 1 Univers e 40 mg EC 6-09 tablet by ity of tablet 00:00: mouth [place] 00 daily. Medical Branch pantoprazol Yes [id number] 40mg Take 1 Univers e 40 mg EC 6-09 tablet by ity of tablet 00:00: mouth [place] 00 daily. Medical Branch pantoprazol Yes [id number] 40mg Take 1 Univers e 40 mg EC 6-09 tablet by ity of tablet 00:00: mouth [place] 00 daily. Medical Branch pantoprazol Yes [id number] 40mg Take 1 Univers e 40 mg EC 6-09 tablet by ity of tablet 00:00: mouth [place] 00 daily. Medical Branch pantoprazol Yes [id number] 40mg Take 1 Univers e 40 mg EC 6-09 tablet by ity of tablet 00:00: mouth [place] 00 daily. [facility] Branch Immunizations Ordered Filled Immunization Date Status Comments Sour e Immunization Name Name SARS-COV-2 COVID-19 2021-01-15 Completed Unive rsity of LUISANA/J&J VACCINE 00:00:00 [facility] SARS-COV-2 COVID-19 2021-01-15 Completed Unive rsity of LUISANA/J&J VACCINE 00:00:00 [facility] SARS-COV-2 COVID-19 2021-01-15 Completed Unive rsity of LUISANA/J&J VACCINE 00:00:00 [facility] SARS-COV-2 COVID-19 2021-01-15 Completed Unive rsity of LUISANA/J&J VACCINE 00:00:00 [facility] SARS-COV-2 COVID-19 2021-01-15 Completed Unive rsity of LUISANA/J&J VACCINE 00:00:00 [facility] SARS-COV-2 COVID-19 2021-01-15 Completed Unive rsity of LUISANA/J&J VACCINE 00:00:00 [facility] Vital Signs Vital Name Observation Time Observation Value Comments Source Systolic blood 2022-07-09 14:25:00 139 mm[Hg] Univer sity of [facility] Diastolic blood 2022-07-09 14:25:00 94 mm[Hg] Unive rsity of [facility] Heart rate 2022-07-09 14:25:00 88 /min [facility] Body height 2022-07-09 14:25:00 162.6 cm [facility] Body weight 2022-07-09 14:25:00 65.318 kg [facility] BMI 2022-07-09 14:25:00 24.72 kg/m2 [facility] Systolic blood 2022-06-04 18:16:00 115 [facility] 2022-06-04 18:16:00 74 mm[Hg] [facility] Body height 2022-06-04 18:16:00 162.6 cm [facility] Body weight 2022-06-04 18:16:00 64.864 kg [facility] BMI 2022-06-04 18:16:00 24.55 kg/m2 [facility] Procedures This patient has no known procedures. Encounters Start End Encounter Admission Attending Care Care Encounter Source Date/Time Date/Time Type Type Clinicians Facility Department ID 2022-11-11 2022-11-11 [facility] [id number] L-20 [facility] 09:15:00 09:15:00 LAURA [id number] [facility] 2022-11-11 2022-11-11 [facility] [id number] Univers 09:15:00 09:15:00 LAURA [facility] 2022-07-10 2022-07-10 Telephone [facility] [id number] [facility] 00:00:00 00:00:00 [facility] [id number] it y of [place] [id number] Jorge Alberto as LUCIUS?BLEA [id number] [address] MEDICAL OFFICE [facility] 2022-07-09 2022-07-09 [facility] [id number] Univers 09:15:00 09:44:28 LAURA [facility] 2022-07-09 2022-07-09 Office [facility] [id number] [facility] 09:15:00 09:30:00 Visit [facility] [id number] it y of [place] [id number] Jorge Alberto as LUCIUS?BLEA [phone] [address] MEDICAL OFFICE [facility] 2022-07-09 2022-07-09 [facility] [id number] [facility] 09:15:00 09:15:00 LAURA [id number] [facility] 2022-07-09 2022-07-09 Telephone [facility] [id number] Univers 00:00:00 00:00:00 [facility] [id number] it y of [place] [id number] Jorge Alberto as LUCIUS?BLEA [id number] [address] OFFICE [facility] 2022-06-04 2022-06-04 Outpatient R [facility] [id number] [facility] 13:15:00 13:32:49 LAURA ity of [facility] 2022-06-04 2022-06-04 Office [facility] [id number] Univers 13:15:00 13:30:00 Visit [facility] [id number] it y of [facility] [id number] Jorge Alberto as LUCIUS?BLEA [id number] [address] OFFICE [facility] 2021-05-25 2021-05-25 Telephone [facility] [id number] 00:00:00 00:00:00 [facility] [id number] Edward [place] [id number] Professio [id number] [address] One 2021-05-21 2021-05-21 Refill [facility] [id number] 00:00:00 00:00:00 [facility] [id number] Edward [place] [id number] [id number] [address] One 2021-05-05 2021-05-05 Emergency [facility] [id number] 11:42:00 13:42:00 Marc Bangura [id number] Amy [id number] [place] [id number] 2021-05-04 2021-05-04 [facility] [id number] 00:00:00 00:00:00 [facility] [id number] Sveta [id number] Professio [id number] nal [address] 2021-05-03 2021-05-03 [facility] [id number] 17:09:02 17:56:38 Care Nayla [facility] [id number] Sveta [id number] Professio [id number] nal 044 Office [address] 2021-04-25 2021-04-25 [facility] [id number] 10:32:12 10:47:12 Visit [facility] [id number] Edmik Bangura [id number] Professio [phone] [place] [address] [address] 2021-04-25 2021-04-25 Orders Doctor DESTINEY [id number] 00:00:00 00:00:00 Only Unassigned, [place] [id number] [place] [facility] [id number] [id number] Results This patient has no known results.
[2022-07-22] MEDS ORDERED: MAGNES/ALUMIN/SIMET 30ML UCUP ONE (07:52)
[2022-07-22] MEDS ORDERED: LIDOCAINE VISCOUS 2% SOLN 15 ML UDC ONE (07:52)
[2022-07-22] MEDS ORDERED: NA CHLORIDE 0.9% 1,000 ML ONE (07:52)
[2022-07-22] MEDS ORDERED: FAMOTIDINE 20 MG/2 ML VIAL IV ONE (07:52)
[2022-07-22] MEDS ORDERED: ONDANSETRON 4 MG/2 ML VIAL ONE (07:52)
[2022-07-22 07:56] LABS: Absolute Lymphocytes (CBC) 4.3 K/uL (0.7-4.9); Hematocrit 38.9 % (36.0-45.0); Lymphocytes % 40.1 % (15.3-44.8); MCV 87.3 fL (80-100); MPV 7.7 fL (7.6-11.3); RBC Red Blood Cell Count 4.46 M/uL (3.86-4.86)
[2022-07-22 08:16] LABS: Albumin 3.7 g/dL (3.4-5.0); Bilirubin Total 0.5 mg/dL (0.2-1.0); Potassium 3.6 mmol/L (3.5-5.1); Protein, Total 7.3 g/dL (6.4-8.2)
[2022-07-22 08:41] LABS: Urine Blood 2+ (Negative); Urine Glucose Negative (Negative); Urine Protein 1+ (Negative); Urine Specific Gravity >=1.030 (1.005-1.030); Urine pH 6.5 (5.0-7.0)
[2022-07-22 09:11] LABS: Urine Bacteria <20 /HPF (<20); Urine Mucus 3+ /HPF (None Seen); Urine WBC Clump Rare /HPF (None Seen)
--- NOTE | 2022-07-22 09:25 | RAD REPORT ---
EXAM DESCRIPTION: CTAbdomen Pelvis W Contrast - 07/22/2022 9:06 am CLINICAL HISTORY: Abdominal pain. Abdominal pain, acute, nonlocalized COMPARISON: CT ABD PELVIS W CONTRAST dated 04/07/2009 TECHNIQUE: Biphasic CT imaging of the abdomen and pelvis was performed with 100 ml non-ionic IV cont rast. All CT scans are performed using dose optimization technique as appropriate and may include automated exposure control or mA/KV adjustment according to patient size. FINDINGS: The lung bases are clear. The liver, spleen, pancreas, adrenal glands and kidneys are within normal limits. No bowel obstruction, free air, free fluid or abscess. Significant stool is retained in the colon. No nvisualized appendix. No evidence of significant lymphadenopathy. No suspicious bony findings. IMPRESSION: No acute intra-abdominal or pelvic finding. Moderate stool retention throughout the colon.
--- NOTE | 2022-07-22 09:51 | EDPHYS ---
Physician Documentation [facility] Name: Anne Marie Cruz Age: 42 yrs Sex: Female : 1980 Arrival Date: 07/22/2022 Time: 07:21 Bed 17 Private MD: ED Physician Nitesh Zarate HPI: 07/22 07:43 This 42 yrs old Female presents to ER via Unassigned with complaints of Abdominal Pain. jr11 07:43 The patient presents with abdominal pain in the left lower quadrant, abdominal jr11 distention in the epigastric area, blunt injury. Onset: The symptoms/episode began/occurred 2 week(s) ago. The symptoms do not radiate. Associated signs and symptoms: Pertinent positives: nausea, vomiting. The symptoms are described as achy, sharp. Modifying factors: The symptoms are alleviated by nothing, the symptoms are aggravated by movement. Severity of pain: At its worst the pain was severe in the emergency department the pain is actually worse. not same pain as chronic constipation, worse. Pt recently had endoscopy and colonoscopy. . Historical: - Allergies: 07:50 Latex, Natural Rubber; ap3 - Home Meds: 07:50 Pepcid AC Oral [Active]; Omeprazole Oral [Active]; Protonix Oral [Active]; Adderall XR ap3 Oral [Active]; - PMHx: 07:50 Anxiety; Bipolar disorder; Chronic pain; ap3 - Immunization history:: Client reports receiving the 2nd dose of the Covid vaccine. - Social history:: Smoking status: Patient reports the use of cigarette tobacco products, smokes one pack cigarettes per day. ROS: 07:43 All other systems are negative. jr11 Exam: 07:43 Constitutional: This is a well developed, well nourished patient who is awake, alert, jr11 and in no acute distress. Head/Face: Normocephalic, atraumatic. Eyes: Extra-ocular motions intact. Lids and lashes normal. Conjunctiva and sclera are non-icteric and not injected. Cornea within normal limits. Periorbital areas with no swelling, redness, or edema. ENT: Nares patent. No nasal discharge, no septal abnormalities noted. Oropharynx with no redness, swelling, or masses, exudates, or evidence of obstruction, uvula midline. Mucous membranes moist. Neck: Trachea midline, no thyromegaly or masses palpated, and no cervical lymphadenopathy. Supple, full range of motion without nuchal rigidity, or vertebral point tenderness. No Meningismus. Chest/axilla: Normal chest wall appearance and motion. Nontender with no deformity. No lesions are appreciated. Cardiovascular: Regular rate and rhythm with a normal S1 and S2. No gallops, murmurs, or rubs. Normal PMI, no JVD. No pulse deficits. Respiratory: Lungs have equal breath sounds bilaterally, clear to auscultation and percussion. No rales, rhonchi or wheezes noted. No increased work of breathing, no retractions or nasal flaring. Abdomen/GI: diffuse ttp, LLQ pain worse +vol guarding Skin: Warm, dry with normal turgor. Normal color with no rashes, no lesions, and no evidence of cellulitis. MS/ Extremity: Pulses equal, no cyanosis. Neurovascular intact. Full, normal range of motion. Neuro: Awake and alert, GCS 15, oriented to person, place, time, and situation. No gross motor or sensory deficits. Vital Signs: 07:47 BP 139 / 83; Pulse 73; Resp 19; Temp 97.9; Pulse Ox 100% ; Weight 65.77 kg; Height 5 ap3 ft. 4 in. (162.56 cm); 08:33 BP 121 / 83; Pulse 80; Resp 20; Pulse Ox 99% ; mb8 07:47 Body Mass Index 24.89 (65.77 kg, 162.56 cm) ap3 MDM: 07:42 Patient medically screened. jr11 07:43 Differential diagnosis: non-specific abd pain. Data reviewed: vital signs, nurses notes.jr11 09:49 ED course: No acute abnormality on CT, will RX golytely to clear our colon, f/u GI . jr11 07/22 07:43 Order name: CBC with Diff jr11 07/22 07:43 Order name: CMP jr11 07/22 07:43 Order name: Lipase jr11 07/22 08:02 Order name: CBC with Automated Diff; Complete Time: 08:51 EDMS 07/22 08:17 Order name: Comprehensive Metabolic Panel; Complete Time: 08:51 EDMS 07/22 07:43 Order name: CT Abd/Pelvis - IV Contrast Only 11 07/22 08:17 Order name: Lipase; Complete Time: 08:51 EDMS 07/22 08:41 Order name: Urine Dipstick-Ancillary; Complete Time: 08:51 EDMS 07/22 09:12 Order name: Urine Microscopic Only; Complete Time: 09:18 EDMS 07/22 09:25 Order name: CT; Complete Time: 09:49 EDMS 07/22 07:43 Order name: IV Saline Lock; Complete Time: 07:51 jr11 07/22 07:43 Order name: Labs collected and sent; Complete Time: 07:51 jr11 07/22 07:43 Order name: Urine Dipstick-Ancillary (obtain specimen); Complete Time: 08:47 jr11 07/22 07:43 Order name: Urine Test (obtain specimen); Complete Time: 08:47 jr Administered Medications: 07:59 Drug: NS 0.9% 1000 ml Route: IV; Rate: 1 bolus; Site: right antecubital; mb8 08:46 Follow up: IV Status: Completed infusion mb8 08:00 Drug: Pepcid (famotidine) 20 mg Route: IVP; Site: right antecubital; mb8 08:46 Follow up: Response: No adverse reaction mb8 08:00 Drug: Zofran (Ondansetron) 4 mg Route: IVP; Site: right antecubital; mb8 08:46 Follow up: Response: No adverse reaction; Nausea is decreased mb8 08:00 Drug: GI Cocktail with - (Phenobarbital-Belladonna 10 ml, Maalox Suspension 30 mb8 ml, Lidocaine Liquid 2 % 20 ml) Route: PO; 08:46 Follow up: Response: No adverse reaction mb8 09:56 Drug: Ketorolac 15 mg Route: IVP; Site: right antecubital; mb8 10:09 Follow up: Response: No adverse reaction mb8 Disposition Summary: 07/22/22 09:50 Discharge Ordered Location: Home [facility] Condition: Stable 11 Diagnosis - Constipation, unspecified jr11 - Abdominal pain, Generalized jr11 Discharge Instructions: - Discharge Summary Sheet jr11 - Abdominal Pain, Adult jr11 - Constipation, Adult jr11 Forms: - Medication Reconciliation Form jr11 - Thank You Letter jr11 - Antibiotic Education jr11 - Prescription Opioid Use jr11 Prescriptions: - Golytely - take 8 Fluid Ounce by ORAL route 6 times per day Take 8 oz q 15 min until you jr11 relieve yourself; 1 dose pack; Refills: 0, Product Selection Permitted - Zofran 4 mg Oral Tablet - take 1 tablet by ORAL route every 12 hours As needed; 6 tablet; Refills: 0, jr11 Product Selection Permitted Signatures: Dispatcher [employer] EDFlor Alvarenga RN RN ap3 Nitesh Zarate MD MD jr11 Deni Guy RN RN mb8 Corrections: (The following items were deleted from the chart) 07:51 07:43 [email or web address].BRZ ordered. EDMS EDMS
--- NOTE | 2022-07-22 09:51 | ER ---
Nurse's Notes [facility] Name: Anne Marie Cruz Age: 42 yrs Sex: Female : 1980 Arrival Date: 07/22/2022 Time: 07:21 Bed 17 Private MD: Diagnosis: Constipation, unspecified;Abdominal pain, Generalized Presentation: 07/22 07:47 Chief complaint: Patient states: she is having severe abdominal pain. that when she ap3 went to the restroom this morning, she attempted a bowel movement but was only able to get out a small about. patient states she then started having severe abdominal pain to the point she was sweating, with nausea and vomiting. patient reports having a colonoscopy and endoscopy last week, along with a CT scan with contrast of which she has not received the results. Coronavirus screen: At this time, the client does not indicate any symptoms associated with coronavirus-19. Ebola Screen: No symptoms or risks identified at this time. Initial Sepsis Screen: Does the patient meet any 2 criteria? No. Patient's initial sepsis screen is negative. Does the patient have a suspected source of infection? No. Patient's initial sepsis screen is negative. Risk Assessment: Do you want to hurt yourself or someone else? Patient reports no desire to harm self or others. Onset of symptoms was July 22, 2022. 07:47 Method Of Arrival: Ambulatory ap3 07:47 Acuity: PARISH 3 ap3 Triage Assessment: 07:51 General: Appears uncomfortable, Behavior is crying. Pain: Complains of pain in left ap3 upper quadrant Pain began suddenly. Neuro: Level of Consciousness is awake, alert, obeys commands, Oriented to person, place, time, situation, Gait is steady, Speech is normal. Cardiovascular: Patient's skin is warm and dry. Respiratory: Airway is patent Respiratory effort is even, unlabored. GI: Reports upper abdominal pain, nausea, vomiting. Historical: - Allergies: 07:50 Latex, Natural Rubber; ap3 - Home Meds: 07:50 Pepcid AC Oral [Active]; Omeprazole Oral [Active]; Protonix Oral [Active]; Adderall XR ap3 Oral [Active]; - PMHx: 07:50 Anxiety; Bipolar disorder; Chronic pain; ap3 - Immunization history:: Client reports receiving the 2nd dose of the Covid vaccine. - Social history:: Smoking status: Patient reports the use of cigarette tobacco products, smokes one pack cigarettes per day. Screenin:52 Abuse screen: Denies threats or abuse. Nutritional screening: No deficits noted. ap3 Tuberculosis screening: No symptoms or risk factors identified. 08:01 Fall Risk None identified. mb8 Assessment: 08:00 Pain: Complains of pain in Chest, epigastric, LLQ Pain currently is 10 out of 10 on a mb8 pain scale. GI: Bowel sounds present X 4 quads. Abd is soft. 08:05 General: Patient attempting UA sample. mb8 08:32 General: Patient attempted UA sample again. mb8 Vital Signs: 07:47 BP 139 / 83; Pulse 73; Resp 19; Temp 97.9; Pulse Ox 100% ; Weight 65.77 kg; Height 5 ap3 ft. 4 in. (162.56 cm); 08:33 BP 121 / 83; Pulse 80; Resp 20; Pulse Ox 99% ; mb8 07:47 Body Mass Index 24.89 (65.77 kg, 162.56 cm) ap3 ED Course: 07:21 Patient arrived in ED. as 07:35 Nitesh Zarate MD is Attending Physician. jr11 07:41 Deni Guy RN is Primary Nurse. mb8 07:50 Triage completed. ap3 07:50 Inserted saline lock: 20 gauge in right antecubital area, using aseptic technique. mb8 Blood collected. 07:51 CBC with Diff Sent. kc6 07:51 CMP Sent. kc6 07:51 Lipase Sent. kc6 07:52 Arm band placed on right wrist. ap3 07:52 Placed in gown. Bed in low position. Call light in reach. Adult w/ patient. Pulse ox ap3 on. NIBP on. Door closed. Noise minimized. 08:01 No provider procedures requiring assistance completed. mb8 08:47 Warm blanket given. mb8 09:56 IV discontinued, intact, bleeding controlled, No redness/swelling at site. Pressure mb8 dressing applied. Administered Medications: 07:59 Drug: NS 0.9% 1000 ml Route: IV; Rate: 1 bolus; Site: right antecubital; mb8 08:46 Follow up: IV Status: Completed infusion mb8 08:00 Drug: Pepcid (famotidine) 20 mg Route: IVP; Site: right antecubital; mb8 08:46 Follow up: Response: No adverse reaction mb8 08:00 Drug: Zofran (Ondansetron) 4 mg Route: IVP; Site: right antecubital; mb8 08:46 Follow up: Response: No adverse reaction; Nausea is decreased mb8 08:00 Drug: GI Cocktail with - (Phenobarbital-Belladonna 10 ml, Maalox Suspension 30 mb8 ml, Lidocaine Liquid 2 % 20 ml) Route: PO; 08:46 Follow up: Response: No adverse reaction mb8 09:56 Drug: Ketorolac 15 mg Route: IVP; Site: right antecubital; mb8 10:09 Follow up: Response: No adverse reaction mb8 Medication: 07:52 VIS not applicable for this client. ap3 Outcome: 09:50 Discharge ordered by . irina 10:09 Discharged to home ambulatory. mb8 10:09 Condition: stable 10:09 Discharge instructions given to patient, Instructed on discharge instructions, follow up and referral plans. medication usage, Demonstrated understanding of instructions, follow-up care, medications, Prescriptions given X 2. 10:09 Patient left the ED. mb8 Signatures: Krista Hadley Amanda, RN RN ap3 Nitesh Zarate MD MD jr11 Blanca Telles kc6 Deni Guy RN RN mb8
[2022-07-22] MEDS ORDERED: KETOROLAC 30 MG/ML INJ ONE (09:53)
[2022-07-22 10:17] VITALS: TEMP 97.9
[2022-07-22 10:18] VITALS: BP 121/83; O2SAT 99
== END 2022-07-22 10:09 | disposition home or self-care (01) ==
LOC: ER 07:20
DX: K59.00 Constipation, unspecified (principal); R10.84 Generalized abdominal pain; Z91.09 Other allergy status, other than to drugs and biological substances; F31.9 Bipolar disorder, unspecified; F41.9 Anxiety disorder, unspecified; F17.210 Nicotine dependence, cigarettes, uncomplicated
CPT/HCPCS: 96361; 87088; 85025; 87086; 36415; 83690; 80053; 74177; 96375; 96374; 99284; Q9967; J7030; J2405; 81003; 81015

== ENCOUNTER 2022-11-17 16:04 | Emergency (ER) | payer OTHER ==
--- OUTSIDE RECORDS SUMMARY | 2022-11-17 16:10 | XMS REPORT | Continuity of Care Document ---
:1980 Author Organization [facility] t Address [address] [place] [address] Care Team Providers Name Role Phone Otto Torres Primary Care Physician [phone] LAURA BELTRAN Attending Clinician Unavailable STU BORGES Attending Clinician Unavailable Laura Beltran MD Attending Clinician WALLY ROLDAN Attending Clinician Unavailable Wally Tracy Attending Clinician MUNDO SOMERS Attending Clinician Unavailable Mundo Reyes Attending Clinician Lora oGuld RN Attending Clinician Unavailable Doctor Unassigned, [place] Attending Clinician Unavailable Marc Khoury MD Attending Clinician Nayla Sims Attending Clinician JORDAN HALEY Attending Clinician Unavailable Jhoana Townsend Attending Clinician JHOANA SAINZ Attending Clinician Unavailable Pob, [facility] Attending Clinician Unavailable Zenon Cochran MD Attending Clinician [phone] ZENON COCHRAN Attending Clinician Unavailable KELSI CORBETT Attending Clinician Unavailable Kelsi Corbett DO Attending Clinician JHOANA SAINZ Admitting Clinician Unavailable Payers Payer Name Policy Type Policy Number Effective Date Expiration Date Greg dawson [facility] [id number] 2017 CHOICE MEDICAID 00:00:00 [facility] [id number] [facility] 00:00:00 MEDICAID [facility] [id number] 2017 00:00:00 Problems Condition Condition Condition Status Onset Resolution Last Treating Co mments Source Name Details Category Date Date Treatment Clinician Date Bipolar 1 Bipolar 1 Disease Active Uni vers disorder, disorder, 9 ity of manic, manic, 00:00: [place] mild mild 00 Medical Branch Attention Attention Disease Active Uni vers deficit deficit 8- ity of disorder disorder 00:00: [place] (ADD) in (ADD) in 00 Medica l adult adult Branch Allergies, Adverse Reactions, Alerts Allergy Allergy Status Severity Reaction(s) Onset Inactive Treating Comm ents Source Name Type Date Date Clinician NO KNOWN Drug Active Univers ALLERGIE Class ity of S [facility] Social History Social Habit Start Date Stop Date Quantity Comments Source Exposure to 2022-09-15 2022-09-25 Not sure [facility] SARS-CoV-2 00:00:00 11:03:00 [facility] (event) [place] Alcohol intake 2022-08-08 2022-08-08 Ex-drinker [facility] 00:00:00 00:00:00 (finding) [facility] Tobacco use and 2022-07-09 2022-07-09 Smokeless tobacco Un iversity of exposure 00:00:00 00:00:00 non-user [facility] History of 2010-03-28 Cigarette Smoker [facility] of tobacco use 00:00:00 [facility] Sex Ass[birth year] Universit y of 00:00:00 00:00:00 [facility] Smoking Status Start Date Stop Date Source Ex-smoker 2022-07-09 00:00:00 2022-07-09 00:00:00 [facility] Medications Ordered Filled Start Stop Current Ordering Indication Dosage Frequency Signature Comments Components Source Medication Medication Date Date Medication? Clinician (SIG) Name Name FAMOTIDINE No 1-17 00:00: 00 LAMOTRIGINE 2023-0 No 1-12 00:00: 00 dextroamphe 2022-0 Yes [id number] 30mg Take 1 Univers tamine-amph 1-11 tablet by ity of etamine 00:00: mouth in [place] (ADDERALL) 00 the Medical 30 mg morning Branch tablet and 1 tablet in the evening. ACYCLOVIR 2021-1 No 2-29 00:00: 00 TAKE 1 2021- No 400 TABLET 2-29 EVERY 8 00:00: HOURS 00 DAILY. TAKE 1-2 2021-10 No 25 TABLET(S) 2-23 FOR SLEEP 00:00: 00 HYDROXYZ 2021-10 No HCL 2-23 00:00: 00 TAKE 1 2021-10 No 100 TABLET 2-23 DAILY. 00:00: 00 AMPHET/DEXT 2021-10 No R 30MG 2-22 Tablets 00:00: 00 AMPHET/DEXT 2021-10 No 30 R 30MG 2-22 00:00: 00 dextroamphe 2021-10 Yes [id number] 30mg Take 1 Univers tamine-amph 2-22 tablet by ity of etamine 00:00: mouth in [place] (ADDERALL) 00 the Medical 30 mg morning Branch tablet and 1 tablet in the evening. dextroamphe 2021-10- No [id number] 30mg Take 1 Univers tamine-amph 2-22 01-11 tablet by it y of etamine 00:00: 00:00 mouth in [place] (ADDERALL) 00 :00 the Medical 30 mg morning Branch tablet and 1 tablet in the evening. FAMOTIDINE 2021-1 No 2-20 00:00: 00 OMEPRAZOLE 2021-1 No 2-20 00:00: 00 BUSPIRONE 2021-1 No 2-09 00:00: 00 TRAMADOL 2021-1 No HCL 2-08 00:00: 00 TAKE 1 2021- No 50 TABLET BY 2-08 MOUTH EVERY 00:00: 6 HOURS 00 NEEDED dextroamphe 2021-10 Yes [id number] 30mg Take 1 Univers tamine-amph 2-07 tablet by ity of etamine 00:00: mouth in [place] (ADDERALL) 00 the Medical 30 mg morning Branch tablet and 1 tablet in the evening. dextroamphe 2021- Yes [id number] 30mg Take 1 Univers tamine-amph 2-07 tablet by ity of etamine 00:00: mouth in [place] (ADDERALL) 00 the Medical 30 mg morning Branch tablet and 1 tablet in the evening. dextroamphe 2021-10 Yes [id number] 30mg Take 1 Univers tamine-amph 2-07 tablet by ity of etamine 00:00: mouth in [place] (ADDERALL) 00 the Medical 30 mg morning Branch tablet and 1 tablet in the evening. dextroamphe 2021-10- No [id number] 30mg Take 1 Univers tamine-amph 2-07 - tablet by it y of etamine 00:00: 00:00 mouth in [place] (ADDERALL) 00 :00 the Medical 30 mg morning Branch tablet and 1 tablet in the evening. TAKE 1 2021- No 100 TABLET 1-28 DAILY. 00:00: 00 TAKE 1 2021- No 5 TABLET BY 1-28 MOUTH TWICE 00:00: DAILY 00 TAKE 1 2021- No 100 TABLET AT 1-28 BEDTIME. 00:00: 00 TAKE 1 2021- No 100 TABLET BY 1-28 MOUTH DAILY 00:00: 00 PANTOPRAZOL 2021-10 No E -22 00:00: 00 TAKE 1 2021- No TABLET BY 1-16 MOUTH IN 00:00: THE MORNING 00 AND IN THE EVENING dextroamphe 2021-10 Yes [id number] 20mg Take 1 Univers tamine-amph 1-16 tablet by ity of etamine 00:00: mouth in [place] (ADDERALL) 00 the Medical 20 mg morning Branch tablet and 1 tablet in the evening. dextroamphe 2021-10- No [id number] 20mg Take 1 Univers tamine-amph 1-16 12- tablet by it y of etamine 00:00: 00:00 mouth in [place] (ADDERALL) 00 :00 the Medical 20 mg morning Branch tablet and 1 tablet in the evening. dextroamphe 2021-10- No [id number] 20mg Take 1 Univers tamine-amph 1-16 12- tablet by it y of etamine 00:00: 00:00 mouth in [place] (ADDERALL) 00 :00 the Medical 20 mg morning Branch tablet and 1 tablet in the evening. TRAZODONE 2021-10 No 0-28 00:00: 00 TRAZODONE 2021-10 No 0-28 00:00: 00 dextroamphe 2021-10 Yes [id number] 20mg Take 1 Univers tamine-amph 0-24 tablet by ity of etamine 00:00: mouth in [place] (ADDERALL) 00 the Medical 20 mg morning Branch tablet and 1 tablet in the evening. dextroamphe 2021-10 No [id number] 20mg Take 1 Univers tamine-amph 0-24 11-16 tablet by it y of etamine 00:00: 00:00 mouth in [place] (ADDERALL) 00 :00 the Medical 20 mg morning Branch tablet and 1 tablet in the evening. diazePAM 2021-10 No 2mg 2 mg, Slow [place] (VALIUM) 0-20 10-20 IV Push, ity of injection 2 02:15: 02:20 [place] 1 [place] :[place] dose, On [facility] 08/07/22 at 2115, STAT diazePAM 2021-10 No 2mg 2 mg, Slow [place] (VALIUM) 0-20 10-20 IV Push, ity of injection 2 01:45: 01:43 [place]CE[place] :[place] dose, On [facility] 08/07/22 at 2045, STAT NaCl 0.9% 2021-10 No 1000mL at 999 Uni vers (NS) bolus 0-19 10-20 mL/hr, ity of infusion 22:00: 00:30 1,000 mL, Jorge Alberto as 1,000 mL 00 :00 IV Medical Infusion, Branch ONCE, 1 dose, On [facility] 08/07/22 at 1700, CAMILA diazePAM 2021-10 No 5mg 5 mg, Univers (VALIUM) 0-19 10-19 Oral, ity of tablet 5 mg 22:00: 21:48 [place]CE[place] :[place] dose, On [facility] 08/07/22 at 1700, CAMILA AZITHROMYCI No N TAB 250MG 07-10 00:00: 00 METRONIDAZO 0 No L TAB 500MG 07-10 00:00: 00 traZODone 2022-0 Yes 100mg Take 100 Uni vers 100 mg 9-20 mg by ity of tablet 09:29: mouth at [place] [address] bedtime. Medical Branch traZODone 2-0 Yes 100mg Take 100 Uni vers 100 mg 9-20 mg by ity of tablet 09:29: mouth at [place] [address] bedtime. Medical Branch traZODone 2-0 Yes 100mg Take 100 Uni vers 100 mg 9-20 mg by ity of tablet 09:29: mouth at [place] [address] bedtime. Medical Branch traZODone 2-0 Yes 100mg Take 100 Uni vers 100 mg 9-20 mg by ity of tablet 09:29: mouth at [place] [address] bedtime. Medical Branch traZODone 2-0 Yes 100mg Take 100 Uni vers 100 mg 9-20 mg by ity of tablet 09:29: mouth at [place] [address] bedtime. Medical Branch traZODone 2-0 Yes 100mg Take 100 Uni vers 100 mg 9-20 mg by ity of tablet 09:29: mouth at [place] [address] bedtime. Medical Branch traZODone 2-0 Yes 100mg Take 100 Uni vers 100 mg 9-20 mg by ity of tablet 09:29: mouth at [place] [address] bedtime. Medical Branch traZODone 2-0 Yes 100mg Take 100 Uni vers 100 mg 9-20 mg by ity of tablet 09:29: mouth at [place] [address] bedtime. Medical Branch traZODone 2-0 Yes 100mg Take 100 Uni vers 100 mg 9-20 mg by ity of tablet 09:29: mouth at [place] [address] bedtime. Medical Branch traZODone 2-0 Yes 100mg Take 100 Uni vers 100 mg 9-20 mg by ity of tablet 09:29: mouth at [place] [address] bedtime. Medical Branch traZODone 2-0 Yes 100mg Take 100 Uni vers 100 mg 9-20 mg by ity of tablet 09:29: mouth at [place] [address] bedtime. Medical Branch traZODone 2-0 Yes 100mg Take 100 Uni vers 100 mg 9-20 mg by ity of tablet 09:29: mouth at [place] [address] bedtime. Medical Branch traZODone 2022-0 Yes 100mg Take 100 Uni vers 100 mg 9-20 mg by ity of tablet 09:29: mouth at [place] [address] bedtime. Medical Branch clonazePAM 2021- No .5mg Take 0.5 Un [place] 0.5 mg 9-20 09-20 mg by ity of tablet 09:29: 00:00 mouth at [place] 09 :00 bedtime. Medical Branch clonazePAM 2021- No .5mg Take 0.5 Un [place] 0.5 mg 9-20 09-20 mg by ity of tablet 09:29: 00:00 mouth at [place] 09 :00 bedtime. Medical Branch OXcarbazepi 2021- No 300mg Take 300 Univers ne 300 mg 9-20 09-20 mg by ity of tablet 09:28: 00:00 mouth at [place] 57 :00 bedtime. Medical Branch OXcarbazepi 2021- No 300mg Take 300 Univers ne 300 mg 9-20 09-20 mg by ity of tablet 09:28: 00:00 mouth at [place] 57 :00 bedtime. Medical Branch amoxicillin 2021- No 1{tbl} Take 1 U nivers -clavulanat 9-20 09-20 tablet by it y of e 09:28: 00:00 mouth 2 [place] (AUGMENTIN) 22 :00 (two) Medical 875-125 mg times Branch per tablet daily. amoxicillin 2021- No 1{tbl} Take 1 U nivers -clavulanat 9-20 09-20 tablet by it y of e 09:28: 00:00 mouth 2 [place] (AUGMENTIN) 22 :00 (two) Medical 875-125 mg times Branch per tablet daily. dextroamphe 2021-0 Yes [id number] 20mg Take 1 Univers tamine-amph 9-20 tablet by ity of etamine 00:00: mouth in [place] (ADDERALL) 00 the Medical 20 mg morning Branch tablet and 1 tablet in the evening. dextroamphe 2021-0 Yes [id number] 20mg Take 1 Univers tamine-amph 9-20 tablet by ity of etamine 00:00: mouth in [place] (ADDERALL) 00 the Medical 20 mg morning Branch tablet and 1 tablet in the evening. dextroamphe 2021-0 Yes [id number] 20mg Take 1 Univers tamine-amph 9-20 tablet by ity of etamine 00:00: mouth in [place] (ADDERALL) 00 the Medical 20 mg morning Branch tablet and 1 tablet in the evening. dextroamphe 2021-0 Yes [id number] 20mg Take 1 Univers tamine-amph 9-20 tablet by ity of etamine 00:00: mouth in [place] (ADDERALL) 00 the Medical 20 mg morning Branch tablet and 1 tablet in the evening. dextroamphe 2021-0 Yes [id number] 20mg Take 1 Univers tamine-amph 9-20 tablet by ity of etamine 00:00: mouth in [place] ([facility]) 00 the Medical 20 mg morning Branch tablet and 1 tablet in the evening. dextroamphe 2021-0 Yes [id number] 20mg Take 1 Univers tamine-amph 9-20 tablet by ity of etamine 00:00: mouth in [place] ([facility]) 00 the Medical 20 mg morning Branch tablet and 1 tablet in the evening. dextroamphe 2021-2021- No [id number] 20mg Take 1 Univers tamine-amph 9-20 10-24 tablet by it y of etamine 00:00: 00:00 mouth in [place] ([facility]) 00 :00 the Medical 20 mg morning Branch tablet and 1 tablet in the evening. dextroamphe 2021-0 2021- No [id number] 20mg Take 1 Univers tamine-amph 9-20 09-20 tablet by it y of etamine 00:00: 00:00 mouth in [place] ([facility]) 00 :00 the Medical 20 mg morning Branch tablet and 1 tablet in the evening. TAKE 1 2021-0 No 10 TABLET BY 17 MOUTH ONCE 00:00: DAILY 00 METRONIDAZO 2021-0 No 500 L TAB 500MG 06-05 00:00: 00 AZITHROMYCI 2021-0 No 250 N TAB 250MG 06-05 00:00: 00 clonazePAM 2021-0 Yes .5mg Take 0.5 Uni vers 0.5 mg 8-16 mg by ity of tablet 13:20: mouth at [place] 16 bedtime. Medical Branch clonazePAM 2021-0 Yes .5mg Take 0.5 Uni vers 0.5 mg 8-16 mg by ity of tablet 13:20: mouth at [place] 16 bedtime. Medical Branch traZODone 2021-0 2- No 50mg Take 50 mg U nivers 50 mg 06-0416 by mouth ity of tablet 13:19: 00:00 at [place] 27 :00 bedtime. Medical Branch traZODone 2021- No 50mg Take 50 mg U nivers 50 mg 06-04-16 by mouth ity of tablet 13:19: 00:00 at [place] 27 :00 bedtime. Medical Branch lithium 2021- No 900mg Take 900 Univ ers carbonate 8-16 08-16 mg by ity of 300 mg 13:17: 00:00 mouth at [place] tablet 48 :00 bedtime. Medical Branch lithium 2021- No 900mg Take 900 Univ ers carbonate 8-16 08-16 mg by ity of 300 mg 13:17: 00:00 mouth at [place] tablet 48 :00 bedtime. Medical Branch dextroamphe Yes [id number] 20mg Take 1 Univers tamine-amph 8-16 tablet by ity of etamine 00:00: mouth in [place] (ADDERALL) 00 the Medical 20 mg morning Branch tablet and 1 tablet in the evening. dextroamphe Yes [id number] 20mg Take 1 Univers tamine-amph 8-16 tablet by ity of etamine 00:00: mouth in [place] (ADDERALL) 00 the Medical 20 mg morning Branch tablet and 1 tablet in the evening. dextroamphe 2021- No [id number] 20mg Take 1 Univers tamine-amph 8-16 09-20 tablet by it y of etamine 00:00: 00:00 mouth in [place] (ADDERALL) 00 :00 the Medical 20 mg morning Branch tablet and 1 tablet in the evening. dextroamphe 2021- No [id number] 20mg Take 1 Univers tamine-amph 8-16 09-20 tablet by it y of etamine 00:00: 00:00 mouth in [place] (ADDERALL) 00 :00 the Medical 20 mg morning Branch tablet and 1 tablet in the evening. TAKE 1 No 20 TABLET BY 7-12 MOUTH TWICE 00:00: DAILY 00 &lt 2021-0 No 100 7-12 00:00: 00 benzonatate 2021- No [id number] 100mg Take 1 Univers 100 mg 7-10 08-16 capsule by ity of capsule 00:00: 00:00 mouth 3 [place] 00 :00 (three) Medical times Branch daily as needed for Cough. benzonatate 2022-0 2022- No [id number] 100mg Take 1 Univers 100 mg 7-10 08-16 capsule by ity of capsule 00:00: 00:00 mouth 3 [place] 00 :00 (three) Medical times Branch daily as needed for Cough. Lamictal 25 2-0 No 2mg mg tablet 6-30 00:00: 00 trazodone 2022-0 No 1mg 50 mg 6-30 tablet 00:00: 00 &lt 2022-0 No 6-30 00:00: 00 &lt 2022-0 No 6-30 00:00: 00 Dose 2022-0 No Unknown 6-30 00:00: 00 TAKE 1 2-0 No TABLET BY 6-30 MOUTH ONCE 00:00: DAILY 00 lamoTRIgine 2022-0 Yes 50mg Take 50 mg Univers 25 mg 6-30 by mouth ity of tablet 00:00: in the [place] 00 morning. Medical Branch lamoTRIgine 2022-0 Yes 50mg Take 50 mg Univers 25 mg 6-30 by mouth ity of tablet 00:00: in the [place] 00 morning. Medical Branch lamoTRIgine 2022-0 Yes 50mg Take 50 mg Univers 25 mg 6-30 by mouth ity of tablet 00:00: in the [place] [address] morning. Medical Branch lamoTRIgine 2022-0 Yes 50mg Take 50 mg Univers 25 mg 6-30 by mouth ity of tablet 00:00: in the [place] 00 morning. Medical Branch lamoTRIgine 2022-0 Yes 50mg Take 50 mg Univers 25 mg 6-30 by mouth ity of tablet 00:00: in the [place] 00 morning. Medical Branch lamoTRIgine 2022-0 Yes 50mg Take 50 mg Univers 25 mg 6-30 by mouth ity of tablet 00:00: in the [place] 00 morning. Medical Branch lamoTRIgine 2022-0 Yes 50mg Take 50 mg Univers 25 mg 6-30 by mouth ity of tablet 00:00: in the [place] 00 morning. Medical Branch lamoTRIgine 2022-0 Yes 50mg Take 50 mg Univers 25 mg 6-30 by mouth ity of tablet 00:00: in the [place] 00 morning. Medical Branch lamoTRIgine 2022-0 Yes 50mg Take 50 mg Univers 25 mg 6-30 by mouth ity of tablet 00:00: in the [place] 00 morning. Medical Branch lamoTRIgine 2022-0 Yes 50mg Take 50 mg Univers 25 mg 6-30 by mouth ity of tablet 00:00: in the [place] 00 morning. Medical Branch lamoTRIgine 2022-0 Yes 50mg Take 50 mg Univers 25 mg 6-30 by mouth ity of tablet 00:00: in the [place] morning. Medical Branch lamoTRIgine 2022-0 Yes 50mg Take 50 mg Univers 25 mg 6-30 by mouth ity of tablet 00:00: in the [place] morning. Medical Branch lamoTRIgine 2022-0 Yes 50mg Take 50 mg Univers 25 mg 6-30 by mouth ity of tablet 00:00: in the [place] morning. Medical Branch lamoTRIgine 2022-0 Yes 50mg Take 50 mg Univers 25 mg 6-30 by mouth ity of tablet 00:00: in the [place] morning. Medical Branch lamoTRIgine 2022-0 Yes 50mg Take 50 mg Univers 25 mg 6-30 by mouth ity of tablet 00:00: in the [place] 00 morning. Medical Branch Dose 2022-0 No Unknown 5-31 00:00: 00 Dose 2022-0 No Unknown 3-21 00:00: 00 Dose 2022-0 No Unknown 3-21 00:00: 00 Dose 2022-0 No Unknown 3-21 00:00: 00 Dose 2022-0 No Unknown 3-21 00:00: 00 Dose 2022-0 No Unknown 3-21 00:00: 00 Dose 2022-0 No Unknown 3-21 00:00: 00 Dose 2022-0 No Unknown 3-21 00:00: 00 Dose 2022-0 No Unknown 3-21 00:00: 00 Dose 2022-0 No Unknown 3-14 00:00: 00 Dose 2022-0 No Unknown 3-14 00:00: 00 Dose 2022-0 No Unknown 3-14 00:00: 00 Dose 2022-0 No Unknown 3-14 00:00: 00 Dose 2022-0 No Unknown 3-14 00:00: 00 Dose 2022-0 No Unknown 3-14 00:00: 00 Dose 2022-0 No Unknown 3-14 00:00: 00 Dose 2022-0 No Unknown 3-14 00:00: 00 Dose 2022-0 No Unknown 3-14 00:00: 00 Dose 2022-0 No Unknown 3-14 00:00: 00 Dose 2022-0 No Unknown 3-14 00:00: 00 Dose 2022-0 No Unknown 3-14 00:00: 00 Dose 2022-0 No Unknown 3-14 00:00: 00 Dose 2022-0 No Unknown 3-14 00:00: 00 Dose 2022-0 No Unknown 3-14 00:00: 00 Dose 2022-0 No Unknown 3-14 00:00: 00 Dose 2022-0 No Unknown 3-14 00:00: 00 Dose 2022-0 No Unknown 3-14 00:00: 00 Dose 2022-0 No Unknown 3-14 00:00: 00 Dose 2022-0 No Unknown 3-14 00:00: 00 Dose 2022-0 No Unknown 3-14 00:00: 00 Dose 2022-0 No Unknown 3-14 00:00: 00 Dose 2022-0 No Unknown 3-14 00:00: 00 Dose 2022-0 No Unknown 3-14 00:00: 00 Dose 2022-0 No Unknown 3-14 00:00: 00 Dose 2022-0 No Unknown 3-14 00:00: 00 Dose 2022-0 No Unknown 3-14 00:00: 00 Dose 2022-0 No Unknown 3-14 00:00: 00 Dose 2022-0 No Unknown 3-14 00:00: 00 Dose 2022-0 No Unknown 3-14 00:00: 00 Dose 2022-0 No Unknown 3-14 00:00: 00 Dose 2022-0 No Unknown 3-14 00:00: 00 Dose 2022-0 No Unknown 3-14 00:00: 00 Dose 2022-0 No Unknown 3-14 00:00: 00 Dose 2022-0 No Unknown 3-14 00:00: 00 Dose 2022-0 No Unknown 3-14 00:00: 00 Dose 2022-0 No Unknown 3-14 00:00: 00 Dose 2022-0 No Unknown 3-14 00:00: 00 Dose 2022-0 No Unknown 3-14 00:00: 00 Dose 2022-0 No Unknown 3-14 00:00: 00 Dose 2022-0 No Unknown 3-14 00:00: 00 Dose 2022-0 No Unknown 3-14 00:00: 00 Dose 2022-0 No Unknown 3-14 00:00: 00 Dose 2022-0 No Unknown 3-14 00:00: 00 Dose 2022-0 No Unknown 3-14 00:00: 00 Dose 2022-0 No Unknown 3-14 00:00: 00 Dose 2022-0 No Unknown 3-14 00:00: 00 Dose 2022-0 No Unknown 3-14 00:00: 00 Dose 2022-0 No Unknown 3-14 00:00: 00 Dose 2022-0 No Unknown 3-14 00:00: 00 Dose 2022-0 No Unknown 3-14 00:00: 00 Dose 2022-0 No Unknown 3-14 00:00: 00 Dose 2022-0 No Unknown 3-14 00:00: 00 Dose 2022-0 No Unknown 3-14 00:00: 00 Dose 2022-0 No Unknown 3-14 00:00: 00 Dose 2022-0 No Unknown 3-14 00:00: 00 Dose 2022-0 No Unknown 3-14 00:00: 00 Dose 2022-0 No Unknown 3-14 00:00: 00 Dose 2022-0 No Unknown 3-14 00:00: 00 Dose 2022-0 No Unknown 3-14 00:00: 00 Lamictal 25 2-0 No 2mg mg tablet 2-17 00:00: 00 trazodone 2022-0 No 1mg 50 mg 2-17 tablet 00:00: 00 Dose 2022-0 No Unknown 1-20 00:00: 00 Dose 2022-0 No Unknown 1-20 00:00: 00 Lamictal 25 1-1 No 2mg mg tablet 2-06 00:00: 00 trazodone 1-1 No 1mg 50 mg 2-06 tablet 00:00: 00 Lamictal 25 1-1 No 1mg mg tablet 1-08 00:00: 00 Lamictal 25 1-1 No 2mg mg tablet 1-08 00:00: 00 trazodone 1-1 No 1mg 50 mg 1-08 tablet 00:00: 00 Lamictal 25 1-1 No 1mg mg tablet 0-18 00:00: 00 trazodone 2020-1 No 1mg 50 mg 0-18 tablet 00:00: 00 amoxicillin 2020-0 Yes 1{tbl} Take 1 Un [place] -clavulanat 9-29 tablet by ity of e 15:10: mouth 2 [place] (AUGMENTIN) 21 (two) Medical 875-125 mg times Branch per tablet daily. OXcarbazepi 2020-0 Yes 300mg Take 300 U nivers ne 300 mg 9-29 mg by ity of tablet 15:10: mouth at [place] [address] bedtime. Medical Branch amoxicillin 2020-0 Yes 1{tbl} Take 1 Un [place] -clavulanat 9-29 tablet by ity of e 15:10: mouth 2 [place] (AUGMENTIN) 21 (two) Medical 875-125 mg times Branch per tablet daily. OXcarbazepi 2020-0 Yes 300mg Take 300 U nivers ne 300 mg 9-29 mg by ity of tablet 15:10: mouth at [place] [address] bedtime. Medical Branch Lamictal 25 2020-0 No 1mg mg tablet 9 00:00: 00 trazodone 2020-0 No 1mg 50 mg 9- tablet 00:00: 00 Abilify 30 2020-0 No 1mg mg tablet 06-20 00:00: 00 oxcarbazepi 2020-0 No 2mg ne 600 mg 9 tablet 00:00: 00 lithium 2020-0 No 3mg carbonate 9 300 mg 00:00: capsule 00 benzonatate 2020-0 Yes [id number] 100mg Take 1 Univers 100 mg 7-17 capsule by ity of capsule 00:00: mouth 3 [place] 00 (three) Medical times Branch daily as needed for Cough. benzonatate 2020-0 Yes [id number] 100mg Take 1 Univers 100 mg 7-17 capsule by ity of capsule 00:00: mouth 3 [place] 00 (three) Medical times Branch daily as needed for Cough. benzonatate 2020-0 2021- No [id number] 100mg Take 1 Univers 100 mg 7-17 09-20 capsule by ity of capsule 00:00: 00:00 mouth 3 [place] 00 :00 (three) Medical times Branch daily as needed for Cough. benzonatate 2020-0 2021- No [id number] 100mg Take 1 Univers 100 mg 05-05 09-20 capsule by ity of capsule 00:00: 00:00 mouth 3 [place] 00 :00 (three) Medical times Branch daily as needed for Cough. Lamictal 25 No 1mg mg tablet 04-27 00:00: 00 hydroxyzine 0 No 1mg HCl 25 mg 04-27 tablet 00:00: 00 Lamictal 25 0 No 1mg mg tablet 03-30 00:00: 00 hydroxyzine 0 No 1mg HCl 25 mg 6- tablet 00:00: 00 pantoprazol Yes [id number] 40mg Take 1 Univers e 40 mg EC 6-09 tablet by ity of tablet 00:00: mouth [place] 00 daily. Medical Branch pantoprazol Yes [id number] 40mg Take 1 Univers e 40 mg EC 6-09 tablet by ity of tablet 00:00: mouth [place] 00 daily. Medical Branch pantoprazol Yes [id number] 40mg Take 1 Univers e 40 mg EC 6-09 tablet by ity of tablet 00:00: mouth [place] 00 daily. Medical Branch pantoprazol Yes [id number] 40mg Take 1 Univers e 40 mg EC 6-09 tablet by ity of tablet 00:00: mouth [place] 00 daily. Medical Branch pantoprazol Yes [id number] 40mg Take 1 Univers e 40 mg EC 6-09 tablet by ity of tablet 00:00: mouth [place] 00 daily. Medical Branch pantoprazol Yes [id number] 40mg Take 1 Univers e 40 mg EC 6-09 tablet by ity of tablet 00:00: mouth [place] 00 daily. Medical Branch pantoprazol Yes [id number] 40mg Take 1 Univers e 40 mg EC 6-09 tablet by ity of tablet 00:00: mouth [place] 00 daily. Medical Branch pantoprazol Yes [id number] 40mg Take 1 Univers e 40 mg EC 6-09 tablet by ity of tablet 00:00: mouth [place] 00 daily. Medical Branch pantoprazol Yes [id number] 40mg Take 1 Univers e 40 mg EC 6-09 tablet by ity of tablet 00:00: mouth [place] 00 daily. Medical Branch pantoprazol 2021-0 Yes [id number] 40mg Take 1 Univers e 40 mg EC 6-09 tablet by ity of tablet 00:00: mouth [place] 00 daily. Medical Branch pantoprazol 2020-0 Yes [id number] 40mg Take 1 Univers e 40 mg EC 6-09 tablet by ity of tablet 00:00: mouth [place] 00 daily. [facility] Branch pantoprazol 2020-0 Yes [id number] 40mg Take 1 Univers e 40 mg EC 6-09 tablet by ity of tablet 00:00: mouth [place] 00 daily. [facility] Branch pantoprazol 2020-0 Yes [id number] 40mg Take 1 Univers e 40 mg EC 6-09 tablet by ity of tablet 00:00: mouth [place] 00 daily. [facility] Branch pantoprazol 0 Yes [id number] 40mg Take 1 Univers e 40 mg EC 6-09 tablet by ity of tablet 00:00: mouth [place] 00 daily. [facility] Branch pantoprazol 2020-0 Yes [id number] 40mg Take 1 Univers e 40 mg EC 6-09 tablet by ity of tablet 00:00: mouth [place] 00 daily. Medical Branch Lamictal 25 2020-0 No 1mg mg tablet 5-14 00:00: 00 hydroxyzine 2020-0 No 1mg HCl 25 mg 5-14 tablet 00:00: 00 Lamictal 25 2020-0 No 1mg mg tablet 4-16 00:00: 00 hydroxyzine 2020-0 No 1mg HCl 25 mg 4-16 tablet 00:00: 00 metronidazo 1-0 No 1mg le 500 mg 4-03 tablet 00:00: 00 ciprofloxac 2020-0 No 1mg in 500 mg 4-03 tablet 00:00: 00 Lamictal 25 2020-0 No 1mg mg tablet 3-19 00:00: 00 hydroxyzine 1-0 No 1mg HCl 25 mg 3-19 tablet 00:00: 00 Augmentin 1-0 No 1mg 875 mg-125 3-17 mg tablet 00:00: 00 Macrobid 1-0 No 1mg 100 mg 3-10 capsule 00:00: 00 Lamictal 25 2020-0 No 1mg mg tablet 2-26 00:00: 00 hydroxyzine 1-0 No 1mg HCl 25 mg 2-26 tablet 00:00: 00 Macrobid 2020-0 No 1mg 100 mg 2-09 capsule 00:00: 00 Lamictal 25 2020-0 No 1mg mg tablet 2- 00:00: 00 hydroxyzine 2020-0 No 1mg HCl 25 mg 2-01 tablet 00:00: 00 Lamictal 25 2020-0 No 1mg mg tablet 1-15 00:00: 00 hydroxyzine 2020-0 No 1mg HCl 25 mg 1-15 tablet 00:00: 00 Flagyl 500 2019-1 No 1mg mg tablet 0-23 00:00: 00 mupirocin 2 2019-1 No 1% % topical 0-20 ointment 00:00: 00 acyclovir 2019-1 No 1mg 400 mg 0-20 tablet 00:00: 00 cephalexin 2019-1 No 1mg 500 mg 0-20 capsule 00:00: 00 Flagyl 500 2019-1 No 1mg mg tablet 0-17 00:00: 00 Caladryl 1 2019-1 No 1% %-8 % 0-16 lotion 00:00: 00 hydroxyzine 2019-1 No 12mg HCl 25 mg 0-16 tablet 00:00: 00 Lamictal 25 2019-1 No 2mg mg tablet 0-15 00:00: 00 Lamictal 25 2019-1 No 2mg mg tablet 0-01 00:00: 00 Lamictal 25 2019-0 No 2mg mg tablet 8-19 00:00: 00 hydroxyzine 2019-0 No 12mg HCl 25 mg 8-07 tablet 00:00: 00 Caladryl 1 2019-0 No 1% %-8 % 8-07 lotion 00:00: 00 Lamictal 25 2019-0 No 1mg mg tablet 8-06 00:00: 00 triamcinolo 2020-0 No 1% ne 8-05 acetonide 00:00: 0.1 % 00 topical cream Flagyl 500 2019-0 No 1mg mg tablet 8-05 00:00: 00 acyclovir 2020-0 No 1mg 400 mg 8-05 tablet 00:00: 00 acyclovir 2020-0 No 1mg 400 mg 7-15 tablet 00:00: 00 Latuda 20 2020-0 No 1mg mg tablet 7-08 00:00: 00 Immunizations Ordered Filled Immunization Date Status Comments [facility] e Immunization Name Name SARS-COV-2 COVID-19 2021-01-15 Completed Unive rsity of LUISANA/J&J VACCINE 00:00:00 [facility] SARS-COV-2 COVID-19 2021-01-15 Completed Unive rsity of LUISANA/J&J VACCINE 00:00:00 [facility] SARS-COV-2 COVID-19 2021-01-15 Completed Unive rsity of [place]ISANA/J&J VACCINE 00:00:00 [facility] SARS-COV-2 COVID-19 2021-01-15 Completed Unive rsity of [place]ISANA/J&J VACCINE 00:00:00 [facility] SARS-COV-2 COVID-19 2021-01-15 Completed Unive rsity of [place]ISA[place]/J&J VACCINE 00:00:00 [facility] SARS-COV-2 COVID-19 2021-01-15 Completed Unive rsity of [place]ISANA/J&J VACCINE 00:00:00 [facility] SARS-COV-2 COVID-19 2021-01-15 Completed Unive rsity of [place]ISA[place]/J&J VACCINE 00:00:00 [facility] SARS-COV-2 COVID-19 2021-01-15 Completed Unive rsity of [place]ISA[place]/J&J VACCINE 00:00:00 [facility] SARS-COV-2 COVID-19 2021-01-15 Completed Unive rsity of [place]ISA[place]/J&J VACCINE 00:00:00 [facility] SARS-COV-2 COVID-19 2021-01-15 Completed Unive rsity of LUISANA/J&J VACCINE 00:00:00 [facility] SARS-COV-2 COVID-19 2021-01-15 Completed Unive rsity of LUISA[place]/J&J VACCINE 00:00:00 [facility] SARS-COV-2 COVID-19 2021-01-15 Completed Unive rsity of LUISANA/J&J VACCINE 00:00:00 [facility] SARS-COV-2 COVID-19 2021-01-15 Completed Unive rsity of LUISA[place]/J&J VACCINE 00:00:00 [facility] SARS-COV-2 COVID-19 2021-01-15 Completed Unive rsity of LUISANA/J&J VACCINE 00:00:00 [facility] SARS-COV-2 COVID-19 2021-01-15 Completed Unive rsity of LUISANA/J&J VACCINE 00:00:00 [facility] Vital Signs Vital Name Observation Time Observation Value Comments Source Systolic blood 2022-09-25 17:10:00 120 mm[Hg] Univer sity of pressure [facility] Diastolic blood 2022-09-25 17:10:00 80 mm[Hg] Unive rsity of pressure [facility] Heart rate 2022-09-25 17:10:00 92 /min Universi ty of [facility] Body height 2022-09-25 17:10:00 162.6 cm Universi ty of [facility] Body weight 2022-09-25 17:10:00 64.864 kg Universi ty of [facility] BMI 2022-09-25 17:10:00 24.55 kg/m2 Universi ty of [facility] Systolic blood 2022-08-08 02:23:00 122 mm[Hg] Univer sity of [facility] Diastolic blood 2022-08-08 02:23:00 78 mm[Hg] Unive rsity of pressure [facility] Heart rate 2022-08-08 02:23:00 76 /min Universi ty of [facility] Body temperature 2022-08-08 02:23:00 36.67 Annia Univ ersity of [facility] Respiratory rate 2022-08-08 02:23:00 19 /min Univ ersity of [facility] Oxygen saturation in 2022-08-08 02:23:00 96 /min [facility] Arterial blood by [facility] Pulse oximetry Branch Body height 2022-08-07 20:26:00 162.6 cm [facility] [place] Body weight 2022-08-07 20:26:00 64.1 kg [facility] BMI 2022-08-07 20:26:00 24.26 kg/m2 Universi ty of [facility] Branch Systolic blood 2022-07-09 14:25:00 139 mm[Hg] Univer sity of pressure [facility] Diastolic blood 2022-07-09 14:25:00 94 mm[Hg] Unive rsity of pressure [facility] Heart rate 2022-07-09 14:25:00 88 /min Universi ty of [facility] Body height 2022-07-09 14:25:00 162.6 cm Universi ty [facility] Body weight 2022-07-09 14:25:00 65.318 kg [facility] BMI 2022-07-09 14:25:00 24.72 kg/m2 Universi [facility] Systolic blood 2022-06-04 18:16:00 115 mm[Hg] Univer sity of pressure [facility] Diastolic blood 2022-06-04 18:16:00 74 mm[Hg] Unive rsity of pressure [facility] Body height 2022-06-04 18:16:00 162.6 cm Universi [facility] Body weight 2022-06-04 18:16:00 64.864 kg [facility] BMI 2022-06-04 18:16:00 24.55 kg/m2 [facility] BP Systolic 2022-11-12 09:56:00 119 mm[Hg] BP Diastolic 2022-11-12 09:56:00 84 mm[Hg] Weight Measured 2022-11-12 09:56:00 148.40 pounds Height Measured 2022-11-12 09:56:00 64.00 inches Body Temperature 2022-11-12 09:56:00 98.00 degrees Heart Rate 2022-11-12 09:56:00 99.00 /min Respiratory Rate 2022-11-12 09:56:00 18.00 /min BP Systolic 2021-06-27 13:18:00 BP Diastolic 2021-06-27 13:18:00 Weight Measured 2021-06-27 13:18:00 160.00 pounds Height Measured 2021-06-27 13:18:00 64.00 inches Body Temperature 2021-06-27 13:18:00 Heart Rate 2021-06-27 13:18:00 Respiratory Rate 2021-06-27 13:18:00 BP Systolic 2021-06-18 12:46:00 143 mm[Hg] BP Diastolic 2021-06-18 12:46:00 96 mm[Hg] Weight Measured 2021-06-18 12:46:00 157.60 pounds Height Measured 2021-06-18 12:46:00 64.00 inches Body Temperature 2021-06-18 12:46:00 98.70 degrees Heart Rate 2021-06-18 12:46:00 107.00 /min Respiratory Rate 2021-06-18 12:46:00 BP Systolic 2021-06-06 15:52:00 159 mm[Hg] BP Diastolic 2021-06-06 15:52:00 89 mm[Hg] Weight Measured 2021-06-06 15:52:00 159.40 pounds Height Measured 2021-06-06 15:52:00 64.00 inches Body Temperature 2021-06-06 15:52:00 98.20 degrees Heart Rate 2021-06-06 15:52:00 110.00 /min Respiratory Rate 2021-06-06 15:52:00 BP Systolic 2021-02-02 09:09:00 BP Diastolic 2021-02-02 09:09:00 Weight Measured 2021-02-02 09:09:00 159.40 pounds Height Measured 2021-02-02 09:09:00 64.00 inches Body Temperature 2021-02-02 09:09:00 Heart Rate 2021-02-02 09:09:00 Respiratory Rate 2021-02-02 09:09:00 BP Systolic 2021-01-31 10:37:00 116 mm[Hg] BP Diastolic 2021-01-31 10:37:00 70 mm[Hg] Weight Measured 2021-01-31 10:37:00 159.40 pounds Height Measured 2021-01-31 10:37:00 64.00 inches Body Temperature 2021-01-31 10:37:00 97.30 degrees Heart Rate 2021-01-31 10:37:00 69.00 /min Respiratory Rate 2021-01-31 10:37:00 18.00 /min BP Systolic 2021-01-17 15:51:00 116 mm[Hg] BP Diastolic 2021-01-17 15:51:00 82 mm[Hg] Weight Measured 2021-01-17 15:51:00 160.20 pounds Height Measured 2021-01-17 15:51:00 64.00 inches Body Temperature 2021-01-17 15:51:00 98.20 degrees Heart Rate 2021-01-17 15:51:00 103.00 /min Respiratory Rate 2021-01-17 15:51:00 16.00 /min BP Systolic 2020-12-27 10:17:00 107 mm[Hg] BP Diastolic 2020-12-27 10:17:00 82 mm[Hg] Weight Measured 2020-12-27 10:17:00 162.60 pounds Height Measured 2020-12-27 10:17:00 64.00 inches Body Temperature 2020-12-27 10:17:00 Heart Rate 2020-12-27 10:17:00 75.00 /min Respiratory Rate 2020-12-27 10:17:00 16.00 /min BP Systolic 2020-11-28 10:44:00 111 mm[Hg] BP Diastolic 2020-11-28 10:44:00 55 mm[Hg] Weight Measured 2020-11-28 10:44:00 161.00 pounds Height Measured 2020-11-28 10:44:00 64.00 inches Body Temperature 2020-11-28 10:44:00 97.70 degrees Heart Rate 2020-11-28 10:44:00 71.00 /min Respiratory Rate 2020-11-28 10:44:00 17.00 /min BP Systolic 2020-08-08 17:18:00 129 mm[Hg] BP Diastolic 2020-08-08 17:18:00 80 mm[Hg] Weight Measured 2020-08-08 17:18:00 171.40 pounds Height Measured 2020-08-08 17:18:00 64.00 inches Body Temperature 2020-08-08 17:18:00 98.40 degrees Heart Rate 2020-08-08 17:18:00 67.00 /min Respiratory Rate 2020-08-08 17:18:00 Procedures Procedure Date / Time Performed Performing Clinician Sour e CREATINE KINASE 2022-08-07 21:44:00 [facility] LIPASE 2022-08-07 21:44:00 [facility] TEST, SERUM 2022-08-07 21:44:00 Wally Roldan [facility] rajesh [facility] TROPONIN I 2022-08-07 21:44:00 [facility] HEPATIC FUNCTION PANEL 2022-08-07 21:44:[address] [facility] ([id number]) Medical Branch (ALB,T.PRO,BILI T,BU/BC,ALT,AST,ALK PHOS) BASIC METABOLIC PANEL 2022-08-07 21:44[facility] (NA, K, CL, CO2, Medical Branch GLUCOSE, BUN, CREATININE, CA) SALICYLATE 2022-08-07 21:44:00 [facility] ETHANOL 2022-08-07 21:44:00 [facility] CBC WITH DIFF 2022-08-07 21:44:00 [facility] Plan of Care Planned Activity Planned Date Details Comments Source Goal Plan of Care Note [code = 38416-0] Goal Plan of Care Note [code = 92904-6] Goal Plan of Care Note [code = 94549-9] Goal Plan of Care Note [code = 04751-3] Goal Plan of Care Note [code = 48267-9] Goal Plan of Care Note [code = 29002-9] Goal Plan of Care Note [code = 83174-9] Goal Plan of Care Note [code = 59681-4] Goal Plan of Care Note [code = 60188-7] Goal Plan of Care Note [code = 98969-2] Goal Plan of Care Note [code = 23539-5] Goal Plan of Care Note [code = 67668-2] Goal Plan of Care Note [code = 74091-7] Goal Plan of Care Note [code = 91941-0] Goal Plan of Care Note [code = 07931-4] Goal Plan of Care Note [code = 70815-8] Goal Plan of Care Note [code = 70883-0] Goal Plan of Care Note [code = 58931-2] Goal Plan of Care Note [code = 06876-3] Goal Plan of Care Note [code = 22624-0] Goal Plan of Care Note [code = 28184-8] Goal Plan of Care Note [code = 14747-5] Goal Plan of Care Note [code = 96699-4] Goal Plan of Care Note [code = 50520-2] Goal Plan of Care Note [code = 43828-3] Goal Plan of Care Note [code = 90017-0] Goal Plan of Care Note [code = 51847-9] Goal Plan of Care Note [code = 53975-1] Goal Plan of Care Note [code = 89780-0] Goal Plan of Care Note [code = 31544-9] Goal Plan of Care Note [code = 73576-0] Goal Plan of Care Note [code = 84941-0] Goal Plan of Care Note [code = 59964-8] Encounters Start End Encounter Admission Attending Care Care Encounter Source Date/Time Date/Time Type Type Clinicians Facility Department ID 2021-08-20 Emergency [facility] [id number] [facility] 08:51:37 [facility] 2023-01-23 2023-01-23 Outpatient Casey BELTRAN [facility] [id number] Univers 10:00:00 10:00:00 LAURA [facility] 2022-12-26 2022-12-26 Outpatient [facility] [id number] [address] [place] [address] 00:00:00 00:00:00 [facility] 2022-11-14 2022-11-14 Outpatient [facility] [id number] Ignacio 11:59:29 11:59:29 0126 [facility] 2022-11-12 2022-11-12 Outpatient [facility] [id number] Ignacio 09:48:10 09:48:10 0124 [facility] 2022-11-12 2022-11-12 Outpatient [id number] 00:00:00 00:00:00 Visit [id number] 2022-11-11 2022-11-11 Outpatient Casey BELTRAN [facility] [id number] Univers 09:15:00 09:15:00 LAURA [facility] 2022-10-30 2022-10-30 Ming Beltran [facility] 1.2.840.114 [id number] Univers 00:00:00 00:00:00 Laura [facility] [id number] it y of [place] 4.2.7.2.686 Jorge Alberto as HI?BLEA [id number] [address] MEDICAL OFFICE BUILDING 2022-10-10 2022-10-10 Telephone [facility] 1.2.840.114 [id number] Univers 00:00:00 00:00:00 [facility] [id number] it y of [place] 4.2.7.2.686 Jorge Alberto as HI?BLEA [id number] Ky fuentes BECERRA [address] [place] [address] OFFICE [facility] 2022-10-07 2022-10-07 Telephone [facility] 1.2.840.114 [id number] Univers 00:00:00 00:00:00 [facility] [id number] it y of [place] 4.2.7.2.686 Jorge Alberto as HI?BLEA [phone] Ky fuentes BECERRA [address] [place] [address] OFFICE [facility] 2022-09-25 2022-09-25 Outpatient R [facility] [id number] [facility] 11:00:00 11:20:08 LAURA ity of [facility] 2022-09-25 2022-09-25 Office [facility] 1.2.840.114 [id number] [facility] 11:00:00 11:20:08 Visit [facility] 350.1.13.10 it y of [place] 4.2.7.2.686 Jorge Alberto as HI?BLEA [id number] [place] fuentes BACON[address] OFFICE [facility] 2022-09-03 2022-09-03 [facility] 1.2.840.114 [id number] Univers 00:00:00 00:00:00 [facility] 350.1.13.10 it y of [place] 4.2.7.2.686 Jorge Alberto as HI?BLEA [id number] Ky fuentes BECERRA [address] [place] [address] OFFICE [facility] 2022-08-09 2022-08-09 [facility] 1.2.840.114 [id number] Univers 00:00:00 00:00:00 [facility] 350.1.13.10 it y of [place] 4.2.7.2.686 Jorge Alberto as HI?BLEA [phone] Ky fuentes BECERRA [address] [place] [address] OFFICE [facility] 2022-08-082022-08-08 Telephone [facility] 1.2.840.114 [id number] Univers 00:00:00 00:00:00 [facility] HEALTH 350.1.13.10 it y of [place] 4.2.7.2.686 Jorge Alberto as HI?BLEA [id number] [address] OFFICE [facility] 2022-08-07 2022-08-07 Emergency X [facility] ERT [id number] Univers 15:19:00 21:35:00 [facility] 2022-08-07 2022-08-07 Emergency [facility] [id number] Univers 15:19:00 21:35:00 [facility] 350.1.13.10 it y [place] [id number] [address] ([facility]) 2022-07-10 2022-07-10 Telephone [facility] 1.2.840.114 [id number] Univers 00:00:00 00:00:00 [facility] 350.1.13.10 it y of [place] 4.2.7.2.686 Jorge Alberto as HI?BLEA [id number] [address] OFFICE [facility] 2022-07-09 2022-07-09 Out[facility] [id number] Univers 09:15:00 09:44:28 [facility] 2022-07-09 2022-07-09 Office [facility] 1.2.840.114 [id number] Univers 09:15:00 09:30:00 Visit [facility] 350.1.13.10 it y of [place] 4.2.7.2.686 Jorge Alberto as HI?BLEA [id number] [address] OFFICE [facility] 2022-07-09 2022-07-09 Telephone [facility] 1.2.840.114 [id number] Univers 00:00:00 00:00:00 Laura HEALTH 350.1.13.10 it y of [place] 4.2.7.2.686 Jorge Alberto as HI?BLEA [phone] [address] MEDICAL OFFICE [facility] 2022-06-04 2022-06-04 Outpatient [facility] [id number] Univers 13:15:00 13:32:49 LAURA yvonne [facility] 2022-06-04 2022-06-04 Office [facility] 1.2.840.114 [id number] Univers 13:15:00 13:30:00 Visit [facility] 350.1.13.10 it y of [facility] 4.2.7.2.686 Jorge Alberto as HI?BLEA [id number] [address] OFFICE [facility] 2022-06-04 2022-06-04 Outpatient [facility] [id number] Univers 13:15:00 13:15:00 LAURA [facility] 2022-04-28 2022-04-28 Emergency X [facility] ERT [id number] Univers 11:37:00 12:24:00 MUNDO [facility] 2022-04-28 2022-04-28 Emergency [facility] 1.2.840.114 [id number] Univers 11:37:00 12:24:00 Mundo [place] 350.1.13.10 i [place] [id number] [facility] 084 [place] 2022-04-28 2022-04-28 Letter Lora Gould 1.2.840.114 [id number] Univers 00:00:00 00:00:00 (Out) [facility] [facility] 350.1.13.10 it y of [facility] 4.2.7.2.686 Jorge Alberto as [id number] [facility] 019 [place] 2021-07-18 2021-07-18 Office [facility] 1.2.840.114 [id number] Univers 14:56:51 15:32:[address] [facility] 350.1.13.10 it y of [place] 4.2.7.2.686 Jorge Alberto as Hi?Blea [phone] [address] Office [facility] 2021-07-18 2021-07-18 [facility] [id number] Univers 15:00:00 15:00:00 LAURA ity of [facility] 2021-05-30 2021-05-30 Orders Doctor DESTINEY 1.2.840.114 [id number] Univers 00:00:00 00:00:00 Only Unassigned, IJEOMA 350.1.13.10 ity of [place] [facility] 4.2.7.2.686 Jorge Alberto as [phone] [address] 2021-05-25 2021-05-25 Telephone [facility] 1.2.840.114 [id number] [facility] 00:00:00 00:00:[address] [facility] 350.1.13.10 it y of [place] 4.2.7.2.686 Jorge Alberto as Professio [phone] [address] Office Building One 2021-05-25 2021-05-25 [facility] 1.2.840.114 [id number] 00:00:00 00:00:[address] [facility] 350.1.13.10 [place] 4.2.7.2.686 Professio [phone] [place] [address] Office [facility] One 2021-05-21 2021-05-21 [facility] 1.2.840.114 [id number] [facility] 00:00:00 00:00:[address] [facility] 350.1.13.10 it y of [place] 4.2.7.2.686 Jorge Alberto as Professio [phone] [address] Office Building One 2021-05-21 2021-05-21 [facility] 1.2.840.114 [id number] 00:00:00 00:00:[address] [facility] 350.1.13.10 [place] 4.2.7.2.686 Professio [phone] [place] [address] Office Building One 2021-05-05 2021-05-05 [facility] 1.2.309.722 [id number] Univers 11:42:00 13:42:00 Marc [place] 350.1.13.10 i ty of [place]2.[place] [id number] [address] 2021-05-05 2021-05-05 Emergency [facility] 1.2.132.170 [id number] 11:42:00 13:42:00 aMrc [place] 350.1.13.10 [place] 4.2.7.2.686 [place] [id number] 2021-05-04 2021-05-04 Telephone [facility] 1.2.521.030 [id number] [facility] 00:00:00 00:00:00 [facility] 350.1.13.10 ity of [place] 4.2.7.2.686 Jorge Alberto as Professio [phone] [place] dic[address] Office Building One 2021-05-04 2021-05-04 Telephone [facility] 1.2.814.399 [id number] 00:00:00 00:00:00 [facility] 350.1.13.10 [place] 4.2.7.2.686 Professio [id number] nal [facility] Office Building One 2021-05-03 2021-05-03 Urgent [facility] 1.2.840.114 [id number] [facility] 17:09:02 17:56:38 Care [facility] 350.1.13.10 ity of [place] 4.2.7.2.686 Jorge Alberto as Professio [phone] [place] dic[address] Office Building [facility] 2021-05-03 2021-05-03 Urgent [facility] 1.2.840.114 [id number] 17:09:02 17:56:38 Care [facility] 350.1.13.10 [place] 4.2.7.2.686 Professio [id number] [place] [address] Office Building One 2021-05-03 2021-05-03 Outpatient [facility] [id number] Univers 17:20:00 17:20:00 ity of [facility] 2021-04-25 2021-04-25 [facility] 1.2.840.114 [id number] 10:32:12 10:47:[address] [facility] 350.1.13.10 [place] 4.2.7.2.686 Professio [phone] [place] [address] Office [facility] One 2021-04-25 2021-04-25 Office [facility] 1.2.840.114 [id number] Univers 10:32:12 10:47:[address] [facility] 350.1.13.10 it y of [place] 4.2.7.2.686 Jorge Alberto as Professio [phone] [place] dical [address] Office [facility] One 2021-04-25 2021-04-25 Outpatient R RUBY [facility] [id number] Univers 10:30:00 10:30:00 LAURA bates [facility] 2021-04-25 2021-04-25 Orders Doctor DESTINEY 1.2.840.114 [id number] 00:00:00 00:00:00 Only Unassigned, IJEOMA 350.1.13.10 [place] [facility] 4.2.7.2.686 [id number] 2021-04-25 2021-04-25 Orders Doctor DESTINEY 1.2.840.114 [id number] Univers 00:00:00 00:00:00 Only Unassigned, IJEOMA 350.1.13.10 ity of [place] [facility] 4.2.7.2.686 Jorge Alberto as [phone] [address] 2021-04-19 2021-04-19 Orders Doctor CABELLO 1.2.840.114 [id number] Univers 00:00:00 00:00:00 Only Unassigned, IJEOMA 350.1.13.10 ity of [place] [facility] 4.2.7.2.686 Jorge Alberto as [id number] [address] 2021-04-11 2021-04-11 Outpatient Casey HALEY [facility] [id number] Univers 15:30:00 15:30:00 JORDAN castañedayvonne [facility] 2021-03-28 2021-03-28 Office [facility] 1.2.840.114 [id number] Univers 09:16:27 09:46:[address] [facility] 350.1.13.10 it y of [place] 4.2.7.2.686 Jorge Alberto as Professio [phone] [place] dical nal [address] Office Building One 2021-03-28 2021-03-28 Outpatient R [facility] [id number] Univers 09:30:00 09:30:00 LAURA ity of [facility] 2020-11-25 2020-11-26 Emergency [facility] 1.2.840.114 [id number] Univers 22:09:00 00:35:00 Jhoana Kathleen [place] 350.1.13.10 ity of [place] [id number] [facility] 084 [place] 2020-11-25 2020-11-26 Emergency X [facility] E[facility] [id number] Univers 22:09:00 00:35:00 JHOANA ity of [facility] 2020-10-17 2020-10-17 Job Spotter Marly, Vishnu Lab Main [facility] 1.2.8 40.114 [id number] Univers 11:03:50 11:18:50 Visit Sammie, Zenon Rolo [place] 350.1. 13.10 ity of [place] Profess[place] [id number] [place] dical nal [facility] 2020-10-17 2020-10-17 Outpatient R [facility] [id number] Univers 11:00:00 11:00:00 ZENON ityvonne [facility] 2020-10-17 2020-10-17 Orders Doctor CABELLO 1.2.840.114 [id number] Univers 00:00:00 00:00:00 Only Unassigned, IJEOMA 350.1.13.10 ity of [place] [facility] 4.2.7.2.686 Jorge Alberto as [phone] [facility] [address] [place] 2020-10-05 2020-10-05 Emergency X ARIC [facility] ERT [id number] Univers 09:47:00 15:13:00 KELSI ity [facility] 2020-10-05 2020-10-05 [facility] 1.2.840.114 [id number] Univers 09:47:00 15:13:00 Kelsi Barlow 350.1.13.[address] [facility] [place] 4.2.7.2.686 [facility] [phone] [address] Results Test Description Test Time Test Comments Results Result Comments Source TEST, SERUM 2022-08-07 22:34:41 Test Item Value Reference Range Interpretation Comme nts PREG SERUM (test code = [id number]) Negative GALLO (test code = GALLO) Less than 10 IU/L. ?If low titer or ectopic is suspected, resubmit specimen in 48-72 hours. [facility] NorthwestTROPONIN [id number] 22:33:51 Test Item Value Reference Interpretation Comments Range TROPONIN I (test 0.002 ng/mL See_Comment [Automated code = [id number]) message] The system which generated this result transmitted reference range : <=0.034. The reference range was not used to interpret this result as normal/abnormal . GALLO (test code = Reference (Normal) GALLO) Range (defined by the 99th percentile reference limit): <= 0.034 ng/mL Note: Cardiac troponin begins to rise 3-4 hours after the onset of ischemia. Repeat in 4-6 hours if the sample was drawn within 3-4 hours of the onset of the symptom and found normal. Diagnosis of myocardial injury is made with acute changes in cTn concentrations with at least one serial sample above the 99th percentile upper reference limit (URL), taken together with the patient's clinical presentation. Biotin has been reported to cause a negative bias, interpret results relative to patient's use of biotin. Lab Interpretation Normal (test code = 72892-1) [facility] NorthwestSALICYLATE2022-10-19 22:27:20 SALICYLATE<10mg/L1 5:27 PM [facility] Range: ? Analgesic and Antipyretic Use ? 20-100 mg/L ? ? Anti-Inflammatory Use ? 100-250 mg/L Toxic Range: ? Greater than 300 mg/LUn[facility] [id number] 22:27:15ALCOHOL<10mg/dL10/ 5:27 PM [facility] CAMPUSToxic Greater thanor equal to 80 mg/dL. NOTE: Whole blood values are approximately 10% to 15% lower than serum and plas ma.[facility] NorthwestACETAMINOPHEN2022-10-19 22:27:10 Test Item Value Reference Range Interpretation Comments ACETAMINOP (test code = 10-30 L [id number]) GALLO (test code = GALLO) Toxic: Greater than 200 ug/mL @ 4 hour post ingestion or greater than 50 ug/mL @ 12 hour post ingestion Lab Interpretation (test Abnormal code = 40343-2) [facility] (NA, K, CL, CO2, GLUCOSE, BUN, CREATININE, CA)2022-08-07 22:23:27 Test Item Value Reference Range Interpretation Comments NA (test code = 138 mmol/L 135-145 5900010762) K (test code = 3.9 mmol/L 3.5-5 1459098540) CL (test code = 102 mmol/L 98-108 7803783378) CO2 TOTAL (test code 27 mmol/L 23-31 = 3062989925) AGAP (test code = 2-16 6610867064) BUN (test code = 16 mg/dL 7-23 3535833236) GLUCOSE (test code = 87 mg/dL 70-110 4281812592) CREATININE (test code 0.69 mg/dL 0.5-1.04 = 4834295610) CALCIUM (test code = 9.7 mg/dL 8.6-10.6 0674863262) eGFR (test code = mL/min/1.73m2 1777549141) GALLO (test code = GALLO) Association of Glomerular Filtration Rate (GFR) and Staging of Kidney Disease* + + +- +| GFR (mL/min/1.73 m2) ?| With Kidney Damage ?| ?Without Kidney Damage+ ------+ ----+ ------+| ?>90 ?| ?Stage one ?| ? Normal ?+ -+ + -+| ?60-89 ?| ?Stage two ?| ? Decreased GFR ? + + +- +| ?30-59 ?| ?Stage three ?| ? Stage three ? + + +- +| ?15-29 ?| ?Stage four ? | ? Stage four ?+ -+ + -+| ?<15 (or dialysis) ? ?| ?Stage five ? | ? Stage five ?+ -+ + -+ *Each stage assumes the associated GFR level has been in effect for at least three months. ?Stages 1 to 5, with or without kidney disease, indicate chronic kidney disease. Notes: Determination of stages one and two (with eGFR >59mL/min/1.73 m2) requires estimation of kidney damage for at least three months as defined by structural or functional abnormalities of the kidney, manifested by either:Pathological abnormalities or Markers of kidney damage (including abnormalities in the composition of the blood or urine or abnormalities in imaging tests). [facility] NorthwestCREATINE [id number] 22:23:27 Test Item Value Reference Range Interpretation Comments CK (test code = 0864377029) 45 U/L 33-194 Lab Interpretation (test code = Normal 42224-5) [facility] NorthwestHEPATIC FUNCTION PANEL (06972) (ALB,T.PRO,BILI T,BU/BC,ALT,AST,ALK PHOS)2022-08-07 22:23:27 Test Item Value Reference Range Interpretation Comments TOTAL BILI (test code = 1348918550) 0.7 mg/dL 0.1-1.1 BILI UNCON (test code = 8159664326) 0.3 mg/dL 0.1-1.1 BILI CONJ (test code = 1510096765) 0.0 mg/dL 0-0.3 T PROTEIN (test code = 5250256956) 7.4 g/dL 6.3-8.2 ALBUMIN (test code = 0362208584) 4.4 g/dL 3.5-5 ALK PHOS (test code = 3071517845) 80 U/L 34-122 ALTv (test code = 1742-6) 15 U/L 5-35 AST(SGOT) (test code = 2076386643) 15 U/L 13-40 Lab Interpretation (test code = Normal 55180-7) [facility] NorthwestLIPASE2022-10-19 22:23:27 Test Item Value Reference Range Interpretation Comments LIPASE (test code = 6086504127) 51 U/L 0-220 Lab Interpretation (test code = Normal 13917-1) [facility] WITH [id number] 22:06:06 Test Item Value Reference Range Interpretation Comments WBC (test code = See_Comment H [Automated 6690-2) message] The sy stem which generated this result transmitted reference range : 4.30 - 11.10 10*3/?L. The reference range was not used to interpret this result as normal/abnormal . RBC (test code = See_Comment [Automated 789-8) message] The sy stem which generated this result transmitted reference range : 3.93 - 5.25 10*6/?L. The reference range was not used to interpret this result as normal/abnormal . HGB (test code = 13.6 g/dL 11.6-15 718-7) HCT (test code = 37.9 % 35.7-45.2 4544-3) MCV (test code = 84.8 fL 80.6-95.5 787-2) MCH (test code = 30.4 pg 25.9-32.8 785-6) MCHC (test code = 35.9 g/dL 31.6-35.1 H 786-4) RDW-SD (test code = 40.6 fL 39-49.9 13466-0) RDW-CV (test code = 13.1 % 12-15.5 788-0) PLT (test code = See_Comment H [Automated 777-3) message] The sy stem which generated this result transmitted reference range : 166 - 358 10*3/ ?L. The reference r deb was not used to interpret this result as normal/abnormal . MPV (test code = 10.1 fL 9.5-12.9 59469-2) NRBC/100 WBC (test See_Comment [Automat ed code = 5408377511) message] The system which generated this result transmitted reference range : 0.0 - 10.0 /100 WBCs. The refer ence range was not u sed to interpret th is result as normal/abnormal . NRBC x10^3 (test code See_Comment [Auto mated = 1530971382) message] The s ystem which generated this result transmitted reference range : 10*3/?L. The reference range was not used to interpret this result as normal/abnormal . GRAN MAT (NEUT) % 62.7 % (test code = 770-8) IMM GRAN % (test code 0.40 % = 6176522443) LYMPH % (test code = 25.7 % 736-9) MONO % (test code = 7.8 % 5905-5) EOS % (test code = 2.8 % 713-8) BASO % (test code = 0.6 % 706-2) GRAN MAT x10^3(ANC) 8.40 10*3/uL 1.88-7.09 H (test code = 3073158939) IMM GRAN x10^3 (test 0.06 10*3/uL 0-0.06 code = 9976636889) LYMPH x10^3 (test code 3.44 10*3/uL 1.32-3.29 H = 731-0) MONO x10^3 (test code 1.04 10*3/uL 0.33-0.92 H = 742-7) EOS x10^3 (test code = 0.38 10*3/uL 0.03-0.39 711-2) BASO x10^3 (test code 0.08 10*3/uL 0.01-0.07 H = 704-7) Lab Interpretation Abnormal (test code = 13026-4) [facility] NorthwestSARS-CoV-2 (COVID-19) by RT-PCR (HIGH RISK) 2021-06-29 00:00:00 Test Item Value Reference Range Interpretation Comments SARS-CoV-2 INTERPRETATION (test NEGATIVE code = 09393) SOURCE (test code = 27200) NOT SPECIFIED SARS-CoV-2 (COVID-19) by RT-PCR (HIGH RISK)2021-06-29 00:00:00 Test Item Value Reference Range Interpretation Comments SARS-CoV-2 INTERPRETATION (test NEGATIVE code = 78833) SOURCE (test code = 88136) NOT SPECIFIED COMPREHENSIVE METABOLIC [id number] 00:00:00 Test Item Value Reference Range Interpretation Comments GLUCOSE (test code = 2217) 92 MG/DL BUN (test code = 2208) 11 MG/DL CREATININE (test code = 2214) 0.80 MG/DL eGFR AMER. (test code 108 ML/MIN/1.73 = 10068) eGFR NON- AMER. (test 94 ML/MIN/1.73 code = 03601) CALC BUN/CREAT (test code = 14 RATIO 2235) SODIUM (test code = 2231) 142 MEQ/L POTASSIUM (test code = 2228) 4.3 MEQ/L CHLORIDE (test code = 2215) 106 MEQ/L CARBON DIOXIDE (test code = 27 MEQ/L 2206) CALCIUM (test code = 2209) 9.3 MG/DL PROTEIN, TOTAL (test code = 6.6 G/DL 2228) ALBUMIN (test code = 2201) 4.3 G/DL CALC GLOBULIN (test code = 2.3 G/DL 2240) CALC A/G RATIO (test code = 1.9 RATIO 2234) BILIRUBIN, TOTAL (test code = 0.3 MG/DL 2206) ALKALINE PHOSPHATASE (test 55 U/L code = 2204) AST (test code = 2218) 13 U/L ALT (test code = 2219) 11 U/L COMPREHENSIVE METABOLIC [id number] 00:00:00 Test Item Value Reference Range Interpretation Comments GLUCOSE (test code = 2217) 92 MG/DL BUN (test code = 2208) 11 MG/DL CREATININE (test code = 2214) 0.80 MG/DL eGFR AMER. (test code 108 ML/MIN/1.73 = 40679) eGFR NON- AMER. (test 94 ML/MIN/1.73 code = 88082) CALC BUN/CREAT (test code = 14 RATIO 2235) SODIUM (test code = 2231) 142 MEQ/L POTASSIUM (test code = 2228) 4.3 MEQ/L CHLORIDE (test code = 2215) 106 MEQ/L CARBON DIOXIDE (test code = 27 MEQ/L 2206) CALCIUM (test code = 2209) 9.3 MG/DL PROTEIN, TOTAL (test code = 6.6 G/DL 2228) ALBUMIN (test code = 2201) 4.3 G/DL CALC GLOBULIN (test code = 2.3 G/DL 2240) CALC A/G RATIO (test code = 1.9 RATIO 2234) BILIRUBIN, TOTAL (test code = 0.3 MG/DL 2206) ALKALINE PHOSPHATASE (test 55 U/L code = 2204) AST (test code = 2218) 13 U/L ALT (test code = 2219) 11 U/L [id number] 00:00:00 Test Item Value Reference Range Interpretation Comments AMYLASE (test code = 5) 52 U/L [id number] 00:00:00 Test Item Value Reference Range Interpretation Comments AMYLASE (test code = 5) 52 U/L [id number] 00:00:00 Test Item Value Reference Range Interpretation Comments LIPASE (test code = 2057) 20 U/L [id number] 00:00:00 Test Item Value Reference Range Interpretation Comments LIPASE (test code = 2057) 20 U/L [id number] 00:00:00 Test Item Value Reference Range Interpretation Comments LIPASE (test code = 2057) 20 U/L CULTURE, URINE [ADDED]2021-01-20 00:00:00 Test Item Value Reference Range Interpretation Comments CULTURE, URINE (test SPECIMEN NUMBER: code = 45715) [id number] CULTURE, URINE [ADDED]2021-01-20 00:00:00 Test Item Value Reference Range Interpretation Comments CULTURE, URINE (test SPECIMEN NUMBER: code = 57510) [id number] GC, AMPLIFIED, [id number] 00:00:00 Test Item Value Reference Range Interpretation Comments GONORRHEA, NAAT (test code = 19699) NEGATIVE GC, AMPLIFIED, [id number] 00:00:00 Test Item Value Reference Range Interpretation Comments GONORRHEA, NAAT (test code = 34405) NEGATIVE [id number] 00:00:00 Test Item Value Reference Range Interpretation Comments RPR RESULT (test code = NON-REACTIVE 3501) RPR TITER (test code = 3500) NOT INDIC. TITER [id number] 00:00:00 Test Item Value Reference Range Interpretation Comments RPR RESULT (test code = NON-REACTIVE 3501) RPR TITER (test code = 3500) NOT INDIC. TITER [id number] 00:00:00 Test Item Value Reference Range Interpretation Comments RPR RESULT (test code = NON-REACTIVE 3501) RPR TITER (test code = 3500) NOT INDIC. TITER VAGINAL PATHOGENS DNA [id number] 00:00:00 Test Item Value Reference Range Interpretation Comments CONRAD SPECIES (test code = ) NEGATIVE G. VAGINALIS (test code = 18864) POSITIVE T. VAGINALIS (test code = 25896) NEGATIVE VAGINAL PATHOGENS DNA [id number] 00:00:00 Test Item Value Reference Range Interpretation Comments CONRAD SPECIES (test code = ) NEGATIVE G. VAGINALIS (test code = 10419) POSITIVE T. VAGINALIS (test code = 75464) NEGATIVE HIV AB/AG COMBO RFLX [id number] 00:00:00 Test Item Value Reference Range Interpretation Comments HIV 1/2 4TH GEN, RFLX CONF (test NON-REACTIVE code = 3514) HIV AB/AG COMBO RFLX [id number] 00:00:00 Test Item Value Reference Range Interpretation Comments HIV 1/2 4TH GEN, RFLX CONF (test NON-REACTIVE code = 3514) ACUTE HEPATITIS [id number] 00:00:00 Test Item Value Reference Range Interpretation Comments HEPATITIS A IgM (test code = NON-REACTIVE 99464) HEPATITIS B CORE IgM (test code NON-REACTIVE = 4644) HEPATITIS B SURF AG (test code = NON-REACTIVE 2739) HEPATITIS C ANTIBODY (test code NON-REACTIVE = 4675) INTERPRETATION HEPATITIS A: (NOTE) (test code = 2552) INTERPRETATION HEPATITIS B: (NOTE) (test code = 27020) INTERPRETATION HEPATITIS C: (NOTE) (test code = 50730) ACUTE HEPATITIS [id number] 00:00:00 Test Item Value Reference Range Interpretation Comments HEPATITIS A IgM (test code = NON-REACTIVE 39124) HEPATITIS B CORE IgM (test code NON-REACTIVE = 4644) HEPATITIS B SURF AG (test code = NON-REACTIVE 2739) HEPATITIS C ANTIBODY (test code NON-REACTIVE = 4675) INTERPRETATION HEPATITIS A: (NOTE) (test code = 2552) INTERPRETATION HEPATITIS B: (NOTE) (test code = 25963) INTERPRETATION HEPATITIS C: (NOTE) (test code = 38679) CHLAMYDIA, AMPLIFIED, [id number] 00:00:00 Test Item Value Reference Range Interpretation Comments CHLAMYDIA, NAAT (test code = 81085) NEGATIVE CHLAMYDIA, AMPLIFIED, [id number] 00:00:00 Test Item Value Reference Range Interpretation Comments CHLAMYDIA, NAAT (test code = 52528) NEGATIVE CULTURE, [id number] 00:00:00 Test Item Value Reference Range Interpretation Comments CULTURE, URINE (test SPECIMEN NUMBER: code = 19806) [id number] CULTURE, [id number] 00:00:00 Test Item Value Reference Range Interpretation Comments CULTURE, URINE (test SPECIMEN NUMBER: code = 39496) [id number] CULTURE, [id number] 00:00:00 Test Item Value Reference Range Interpretation Comments CULTURE, URINE (test SPECIMEN NUMBER: code = 44456) [id number] CULTURE, [id number] 00:00:00 Test Item Value Reference Range Interpretation Comments CULTURE, URINE (test SPECIMEN NUMBER: code = 54896) [id number] SARS-CoV-2 (COVID-19) by RT-PCR (HIGH RISK)2020-11-03 00:00:00 Test Item Value Reference Range Interpretation Comments SARS-CoV-2 INTERPRETATION (test NEGATIVE code = 81020) SOURCE (test code = 67428) NOT SPECIFIED SARS-CoV-2 (COVID-19) by RT-PCR (HIGH RISK)2020-11-03 00:00:00 Test Item Value Reference Range Interpretation Comments SARS-CoV-2 INTERPRETATION (test NEGATIVE code = 89284) SOURCE (test code = 92403) NOT SPECIFIED CHLAMYDIA, AMPLIFIED, [id number] 00:00:00 Test Item Value Reference Range Interpretation Comments CHLAMYDIA, NAAT (test code = 84076) NEGATIVE CHLAMYDIA, AMPLIFIED, [id number] 00:00:00 Test Item Value Reference Range Interpretation Comments CHLAMYDIA, NAAT (test code = 10803) NEGATIVE GC, AMPLIFIED, [id number] 00:00:00 Test Item Value Reference Range Interpretation Comments GONORRHEA, NAAT (test code = 34168) NEGATIVE GC, AMPLIFIED, [id number] 00:00:00 Test Item Value Reference Range Interpretation Comments GONORRHEA, NAAT (test code = 09602) NEGATIVE VAGINAL PATHOGENS DNA [id number] 00:00:00 Test Item Value Reference Range Interpretation Comments CONRAD SPECIES (test code = 68322) NEGATIVE G. VAGINALIS (test code = 21127) POSITIVE T. VAGINALIS (test code = 20789) NEGATIVE VAGINAL PATHOGENS DNA [id number] 00:00:00 Test Item Value Reference Range Interpretation Comments CONRAD SPECIES (test code = ) NEGATIVE G. VAGINALIS (test code = 03625) POSITIVE T. VAGINALIS (test code = ) NEGATIVE GC, AMPLIFIED, [id number] 00:00:00 Test Item Value Reference Range Interpretation Comments GONORRHEA, TMA (test code = 40306) NEGATIVE [id number] 00:00:00 Test Item Value Reference Range Interpretation Comments RPR RESULT (test code = NON-REACTIVE 3501) RPR TITER (test code = 3500) NOT INDIC. TITER [id number] 00:00:00 Test Item Value Reference Range Interpretation Comments RPR RESULT (test code = NON-REACTIVE 3501) RPR TITER (test code = 3500) NOT INDIC. TITER [id number] 00:00:00 Test Item Value Reference Range Interpretation Comments RPR RESULT (test code = NON-REACTIVE 3501) RPR TITER (test code = 3500) NOT INDIC. TITER HIV AB/AG COMBO RFLX [id number] 00:00:00 Test Item Value Reference Range Interpretation Comments HIV 1/2 4TH GEN, RFLX CONF (test NON-REACTIVE code = 3514) PAP TEST, THINPREP, [id number] 00:00:00 Test Item Value Reference Range Interpretation Comments SOURCE: (test code = Cervical/Endocervical 8001) SLIDES: (test code = 1 8011) LMP: (test code = 8021) 05/11/2020 SPECIMEN ADEQUACY: (test (NOTE) code = 01120) INTERPRETATION: (test NILM/NO EPITH. 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 VAGINALIS (test code = ) NEGATIVE T. VAGINALIS (test code = ) NEGATIVE HIV AB/AG COMBO RFLX [id number] 00:00:00 Test Item Value Reference Range Interpretation Comments HIV 1/2 4TH GEN, RFLX CONF (test NON-REACTIVE code = 3514) VAGINAL PATHOGENS DNA [id number] 00:00:00 Test Item Value Reference Range Interpretation Comments CONRAD SPECIES (test code = ) NEGATIVE G. VAGINALIS (test code = ) NEGATIVE T. VAGINALIS (test code = ) NEGATIVE PAP TEST, THINPREP, [id number] 00:00:00 Test Item Value Reference Range Interpretation Comments SOURCE: (test code = Cervical/Endocervical 8001) SLIDES: (test code = 1 8011) LMP: (test code = 8021) 05/11/2020 SPECIMEN ADEQUACY: (test (NOTE) code = 85260) INTERPRETATION: (test NILM/NO EPITH. code = 21331) ABNORMALITY;SEE BELOW ELECTRONIC WARFARE OPERATOR: (test JACKSON Mao(ASCP) code = 8101) LOCATION: (test code = (NOTE) 70350) CPT: (test code = 8140) (NOTE) ACUTE HEPATITIS [id number] 00:00:00 Test Item Value Reference Range Interpretation Comments HEPATITIS A IgM (test code = NON-REACTIVE 95714) HEPATITIS B CORE IgM (test code NON-REACTIVE = 4644) HEPATITIS B SURF AG (test code = NON-REACTIVE 3599) HEPATITIS C ANTIBODY (test code NON-REACTIVE = 4675) INTERPRETATION HEPATITIS A: (NOTE) (test code = 2552) INTERPRETATION HEPATITIS B: (NOTE) (test code = 94494) INTERPRETATION HEPATITIS C: (NOTE) (test code = 85041) HPV HIGH RISK WITH GENOTYPE, [id number] 00:00:00 Test Item Value Reference Range Interpretation Comments HPV HIGH RISK INTERP (test code = NEGATIVE 58720) HPV 16 (test code = 96582) NEGATIVE HPV 18 (test code = 95686) NEGATIVE HPV, HR, OTHER GENOTYPES (test code NEGATIVE = 27522) HPV HIGH RISK WITH GENOTYPE, [id number] 00:00:00 Test Item Value Reference Range Interpretation Comments HPV HIGH RISK INTERP (test code = NEGATIVE 96767) HPV 16 (test code = 24817) NEGATIVE HPV 18 (test code = 52031) NEGATIVE HPV, HR, OTHER GENOTYPES (test code NEGATIVE = 61577) ACUTE HEPATITIS [id number] 00:00:00 Test Item Value Reference Range Interpretation Comments HEPATITIS A IgM (test code = NON-REACTIVE 93058) HEPATITIS B CORE IgM (test code NON-REACTIVE = 4644) HEPATITIS B SURF AG (test code = NON-REACTIVE 2739) HEPATITIS C ANTIBODY (test code NON-REACTIVE = 4675) INTERPRETATION HEPATITIS A: (NOTE) (test code = 2552) INTERPRETATION HEPATITIS B: (NOTE) (test code = 38962) INTERPRETATION HEPATITIS C: (NOTE) (test code = 78804) CHLAMYDIA, AMPLIFIED, [id number] 00:00:00 Test Item Value Reference Range Interpretation Comments CHLAMYDIA, TMA (test code = 13106) NEGATIVE CHLAMYDIA, AMPLIFIED, [id number] 00:00:00 Test Item Value Reference Range Interpretation Comments CHLAMYDIA, TMA (test code = 54679) NEGATIVE GC, AMPLIFIED, [id number] 00:00:00 Test Item Value Reference Range Interpretation Comments GONORRHEA, TMA (test code = 08425) NEGATIVE [id number] 00:00:00 Test Item Value Reference Range Interpretation Comments PROLACTIN (test code = 2800) 11.0 NG/ML [id number] 00:00:00 Test Item Value Reference Range Interpretation Comments PROLACTIN (test code = 2800) 11.0 NG/ML [id number] 00:00:00 Test Item Value Reference Range Interpretation Comments TSH, THIRD GENERATION (test code 0.793 UIU/ML = 2821) [id number] 00:00:00 Test Item Value Reference Range Interpretation Comments TSH, THIRD GENERATION (test code 0.793 UIU/ML = 2821) [id number] 00:00:00 Test Item Value Reference Range Interpretation Comments TSH, THIRD GENERATION (test code 0.793 UIU/ML = 2821)"
[2022-11-17 19:34] LABS: Urine Blood 2+ (Negative); Urine Glucose Negative (Negative); Urine Protein Negative (Negative); Urine Specific Gravity 1.025 (1.005-1.030); Urine pH 5.5 (5.0-7.0)
[2022-11-17 19:35] LABS: Hematocrit 38.8 % (36.0-45.0); Lymphocytes % 9.6 % (15.3-44.8); MCV 90.1 fL (80-100); MPV 7.9 fL (7.6-11.3); RBC Red Blood Cell Count 4.31 M/uL (3.86-4.86)
[2022-11-17 19:39] LABS: Protime INR 1.04
[2022-11-17 19:49] LABS: Barbiturates NEGATIVE (NEGATIVE); Benzodiazepines NEGATIVE (NEGATIVE); Cocaine NEGATIVE (NEGATIVE); METHAMPHETAM POSITIVE (NEGATIVE); Methadone NEGATIVE (NEGATIVE); Opiates NEGATIVE (NEGATIVE); Phencyclidine NEGATIVE (NEGATIVE); THC Cannibis NEGATIVE (NEGATIVE)
[2022-11-17 19:50] LABS: Urine Specific Gravity/Preg 1.025 (1.005-1.030)
[2022-11-17] MEDS ORDERED: LIDOCAINE 1% W/EPI 1:100,000 50 ML MDV ONE (19:50)
[2022-11-17] MEDS ORDERED: MUPIROCIN 2% OINT 22GM TUBE TOP ONE (19:50)
[2022-11-17] MEDS ORDERED: SMZ./TMP. 800/160 MG TABLET ONE (19:50)
[2022-11-17 19:55] LABS: ALT/SGPT 20 U/L (13-56); AST/SGOT 7 U/L (15-37); Albumin 3.8 g/dL (3.4-5.0); Alkaline Phosphatase 79 U/L (45-117); BUN Blood Urea Nitrogen 19 mg/dL (7-18); Bicarbonate 25 mmol/L (21-32); Bilirubin Total 0.3 mg/dL (0.2-1.0); Glomerular Filtration Rate 102 ml/min (=/>90); Glucose Level 117 mg/dL (74-106); Protein, Total 7.7 g/dL (6.4-8.2); Sodium Level 136 mmol/L (136-145)
[2022-11-17 19:56] LABS: Bilirubin Direct < 0.1 mg/dL (0-0.2)
--- NOTE | 2022-11-17 20:00 | ER ---
Nurse's Notes [facility] Name: Anne Marie Cruz Age: 42 yrs Sex: Female : 1980 Arrival Date: 11/17/2022 Time: 16:29 Bed 5 Private MD: Diagnosis: Bipolar disorder, unspecified;Cutaneous abscess of left lower limb-knee;Abuse of other non-psychoactive substances Presentation: 11/17 16:41 Chief complaint: Patient states: abdominal pain, thinks she has poison rita, possible ko1 shingles, migraine, chest pain. Coronavirus screen: At this time, the client does not indicate any symptoms associated with coronavirus-19. Ebola Screen: No symptoms or risks identified at this time. Initial Sepsis Screen: Does the patient meet any 2 criteria? No. Patient's initial sepsis screen is negative. Does the patient have a suspected source of infection? No. Patient's initial sepsis screen is negative. Risk Assessment: Do you want to hurt yourself or someone else? Patient reports no desire to harm self or others. Onset of symptoms was November 17, 2022 at 16:44. 16:41 Method Of Arrival: Ambulatory ko1 16:41 Acuity: PARISH 4 ko1 Triage Assessment: 16:44 General: Appears distressed, uncomfortable, Behavior is cooperative, appropriate for ko1 age, anxious. Pain: Complains of pain in abdomen. 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 - Social history:: Smoking status: Patient reports the use of cigarette tobacco products, smokes one pack cigarettes per day. - Family history:: not pertinent. Screenin:00 [facility] ED Fall Risk Assessment (Adult) History of falling in the last 3 months, jb4 including since admission No falls in past 3 months (0 pts) Confusion or Disorientation No (0 pts) Intoxicated or Sedated No (0 pts) Impaired Gait No (0 pts) Mobility Assist Device Used No (0 pt) Altered Elimination No (0 pt) Score/Fall Risk Level 0 - 2 = Low Risk Oriented to surroundings, Maintained a safe environment. Abuse screen: Denies threats or abuse. Nutritional screening: No deficits noted. Tuberculosis screening: No symptoms or risk factors identified. Assessment: 19:00 General: Appears in no apparent distress. uncomfortable, Behavior is calm, cooperative, jb4 appropriate for age. Pain: Complains of pain in abdomen Pain does not radiate. Pain currently is 9 out of 10 on a pain scale. Neuro: Level of Consciousness is awake, alert, obeys commands, Oriented to person, place, time, situation. Cardiovascular: Patient's skin is warm and dry. Respiratory: Airway is patent Respiratory effort is even, unlabored, Respiratory pattern is regular, symmetrical. GI: Abdomen is flat, non-distended. : No signs and/or symptoms were reported regarding the genitourinary system. EENT: No signs and/or symptoms were reported regarding the EENT system. Derm: Skin is intact, Skin is pink, warm \T\ dry. Musculoskeletal: Circulation, motion, and sensation intact. Range of motion: intact in all extremities. 20:00 Reassessment: Patient appears in no apparent distress at this time. Patient and/or jb4 family updated on plan of care and expected duration. Pain level reassessed. Patient is alert, oriented x 3, equal unlabored respirations, skin warm/dry/pink. 11/18 12:18 Reassessment: Pt called ED reporting severe pain to left knee, reports pain with jl7 ambulation, requesting pain medication be called in. This nurse informed pt we are not able to call in pain medication and to return to ED if needed. Vital Signs: 11/17 16:41 BP 131 / 94; Pulse 87; Resp 18; Temp 98.1; Pulse Ox 97% ; Weight 67.13 kg; Height 5 ft. ko1 4 in. (162.56 cm); Pain 10/10; 16:41 Body Mass Index 25.40 (67.13 kg, 162.56 cm) ko1 ED Course: 16:29 Patient arrived in ED. rg4 16:44 Triage completed. ko1 16:44 Arm band placed on right wrist. ko1 16:47 Patient placed in waiting room, Patient notified of wait time. ko1 17:53 Greg Barry MD is Attending Physician. [facility] 19:25 Initial lab(s) drawn, by me, sent to lab. Inserted saline lock: 18 gauge in right jb4 antecubital area, using aseptic technique. Blood collected. 19:59 Colin Hadley MD is Referral Physician. [facility] 19:59 Shmuel Baumann MD is Referral Physician. [facility] 20:00 Patient has correct armband on for positive identification. Placed in gown. Bed in low jb4 position. Call light in reach. Side rails up X 1. 20:10 Assist provider with I \T\ D: of an abscess on left knee Performed by Greg Barry MD jb4 Wound packed. iodoform gauze, Dressing with bandaid Patient tolerated well. IV discontinued, intact, bleeding controlled, No redness/swelling at site. Pressure dressing applied. Administered Medications: 19:48 Drug: Bactrim (trimethoprim-sulfamethoxazole) (160 mg-800 mg (DS) 1 tablet Route: PO; jb4 20:13 Follow up: Response: No adverse reaction [facility] 20:00 Drug: Lidocaine-Epinephrine -1%: (1:100,000) 8 ml {Note: adminitered by ER provider..} jb4 Volume: 20 ml; Route: Infiltration; 20:13 Follow up: Response: No adverse reaction jb4 20:13 Drug: Bactroban (mupirocin) Ointment 2 % 1 application {Note: Applied by ER jb4 physician..} Route: Topical; Site: wound; 20:13 Follow up: Response: Adverse reaction, Physician notified jb4 Medication: 20:00 VIS not applicable for this client. jb4 Outcome: 20:00 Discharge ordered by . [facility] 20:10 Discharged to home ambulatory, with family. jb4 20:10 Condition: stable 20:10 Discharge instructions given to patient, family, Instructed on discharge instructions, follow up and referral plans. medication usage, Demonstrated understanding of instructions, follow-up care, medications, Prescriptions given X 3. 20:17 Patient left the ED. jb4 Signatures: Greg Barry MD MD cha Garcia, Rubi rg4 Kel Sierra, RN RN jb4 Krystal Swartz RN RN jl7 Flor Lala RN RN ap3 Lyssa Munoz RN RN ko1 Corrections: (The following items were deleted from the chart) 16:46 16:44 Allergies: Latex, Natural Rubber; ko1 ko1 20:15 19:00 Reassessment: Patient appears in no apparent distress at this time. Patient jb4 and/or family updated on plan of care and expected duration. Pain level reassessed. Patient is alert, oriented x 3, equal unlabored respirations, skin warm/dry/pink. jb4 11/18 12:22 12:18 Reassessment: Pt called ED reporting severe pain to left knee, reports pain with jl7 ambulation, requesting pain medication be called in. Informed pt we are not able to call in pain medication and to return to ED if needed. ap3
--- NOTE | 2022-11-17 20:00 | EDPHYS ---
Physician Documentation [facility] Name: Anne Marie Cruz Age: 42 yrs Sex: Female : 1980 Arrival Date: 11/17/2022 Time: 16:29 Bed 5 Private MD: ED Physician Greg Barry HPI: 11/17 19:36 This 42 yrs old Female presents to ER via Ambulatory with complaints of efraín Hernia. 19:36 The patient presents with decreased range of motion. The complaints affect the left efraín knee. Context: The problem was sustained at an unknown site. Onset: The symptoms/episode began/occurred 3 day(s) ago. Modifying factors: The symptoms are alleviated by elevating leg, remaining still, the symptoms are aggravated by movement. Associated signs and symptoms: The patient has no apparent associated signs or symptoms. Severity of symptoms: At their worst the symptoms were mild, in the emergency department the symptoms are unchanged. The patient has experienced similar episodes in the past, several times. 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 - Social history:: Smoking status: Patient reports the use of cigarette tobacco products, smokes one pack cigarettes per day. - Family history:: not pertinent. ROS: 19:36 Constitutional: Negative for fever, chills, and weight loss, Eyes: Negative for injury, efraín pain, redness, and discharge, ENT: Negative for injury, pain, and discharge, Neck: Negative for injury, pain, and swelling, Cardiovascular: Negative for chest pain, palpitations, and edema, Respiratory: Negative for shortness of breath, cough, wheezing, and pleuritic chest pain, Abdomen/GI: Negative for abdominal pain, nausea, vomiting, diarrhea, and constipation, Back: Negative for injury and pain, : Negative for injury, bleeding, discharge, and swelling, Neuro: Negative for headache, weakness, numbness, tingling, and seizure, Psych: Negative for depression, anxiety, suicide ideation, homicidal ideation, and hallucinations, Allergy/Immunology: Negative for hives, rash, and allergies, Endocrine: Negative for neck swelling, polydipsia, polyuria, polyphagia, and marked weight changes, Hematologic/Lymphatic: Negative for swollen nodes, abnormal bleeding, and unusual bruising. 19:36 MS/extremity: Positive for decreased range of motion, pain, swelling, tenderness, warmth, of the left knee. Exam: 19:36 Constitutional: This is a well developed, well nourished patient who is awake, alert, efraín and in no acute distress. Head/Face: Normocephalic, atraumatic. Eyes: Pupils equal round and reactive to light, extra-ocular motions intact. Lids and lashes normal. Conjunctiva and sclera are non-icteric and not injected. Cornea within normal limits. Periorbital areas with no swelling, redness, or edema. ENT: Nares patent. No nasal discharge, no septal abnormalities noted. Tympanic membranes are normal and external auditory canals are clear. Oropharynx with no redness, swelling, or masses, exudates, or evidence of obstruction, uvula midline. Mucous membranes moist. Neck: Trachea midline, no thyromegaly or masses palpated, and no cervical lymphadenopathy. Supple, full range of motion without nuchal rigidity, or vertebral point tenderness. No Meningismus. Chest/axilla: Normal chest wall appearance and motion. Nontender with no deformity. No lesions are appreciated. Cardiovascular: Regular rate and rhythm with a normal S1 and S2. No gallops, murmurs, or rubs. Normal PMI, no JVD. No pulse deficits. Respiratory: Lungs have equal breath sounds bilaterally, clear to auscultation and percussion. No rales, rhonchi or wheezes noted. No increased work of breathing, no retractions or nasal flaring. Abdomen/GI: Soft, non-tender, with normal bowel sounds. No distension or tympany. No guarding or rebound. No evidence of tenderness throughout. Back: No spinal tenderness. No costovertebral tenderness. Full range of motion. Pelvic Exam: Normal external genitalia. Speculum exam with closed cervical os, no discharge or bleeding noted. Bimanual exam with normal adnexa, no adnexal or cervical motion tenderness. Normal uterus. Neuro: Awake and alert, GCS 15, oriented to person, place, time, and situation. Cranial nerves II-XII grossly intact. Motor strength 5/5 in all extremities. Sensory grossly intact. Cerebellar exam normal. Normal gait. Psych: Awake, alert, with orientation to person, place and time. Behavior, mood, and affect are within normal limits. 19:36 Skin: abscess, that is small, that is moderate sized, of the left knee, with fluctuance, with induration, with surrounding cellulitis, that is mild, cellulitis, that is minimal, that is mild, induration, that is moderate is noted, located on the left knee. 20:16 ECG was reviewed by the Attending Physician. [facility] Vital Signs: 16:41 BP 131 / 94; Pulse 87; Resp 18; Temp 98.1; Pulse Ox 97% ; Weight 67.13 kg; Height 5 ft. ko1 4 in. (162.56 cm); Pain 10/10; 16:41 Body Mass Index 25.40 (67.13 kg, 162.56 cm) ko1 Procedures: 20:16 I \T\ D: Incision and drainage was performed for an abscess of the left Prepped with [facility] Betadine, Anesthetized with 10 ml's 1% Lidocaine w/ Epi. Incised with #11 blade. Drained moderate amount purulent fluid. Packed with iodoform gauze, Dressing: non-Adherent dressing, the patient tolerated the procedure well. MDM: 17:53 Patient medically screened. [facility] 19:38 Differential diagnosis: contusion, tendonitis. Data reviewed: vital signs, nurses [facility] notes, lab test result(s), EKG. Consideration of Admission/Observation Patient was admitted/placed on observation. Escalation of care including admission/observation considered. I considered the following discharge prescriptions or medication management in the emergency department Medications were administered in the Emergency Department. See MAR. Test considered but Not performed: CT: no ct abd pelvis. 11/17 18:35 Order name: Acetaminophen; Complete Time: 19:59 [facility] 11/17 18:35 Order name: Basic Metabolic Panel; Complete Time: :59 [facility] 11/17 18:35 Order name: CBC with Diff; Complete Time: :59 [facility] 11/17 18:35 Order name: ETOH Level; Complete Time: :59 [facility] 11/17 18:35 Order name: Hepatic Function; Complete Time: 19:59 [facility] 11/17 18:35 Order name: PT-INR; Complete Time: 19:59 [facility] 11/17 18:35 Order name: Ptt, Activated; Complete Time: 19:59 [facility] 11/17 18:35 Order name: Salicylate; Complete Time: 19:59 [facility] 11/17 18:35 Order name: Urine Drug Screen; Complete Time: 19:59 [facility] 11/17 19:34 Order name: Urine Dipstick-Ancillary; Complete Time: 19:34 EDMS 11/17 19:41 Order name: Urine --Ancillary (enter results); Complete Time: 19:59 2 11/17 18:35 Order name: EKG; Complete Time: 18:36 [facility] 11/17 18:35 Order name: EKG - Nurse/Tech; Complete Time: 19:09 [facility] 11/17 18:35 Order name: IV Saline Lock; Complete Time: 19:48 [facility] 11/17 18:35 Order name: Labs collected and sent; Complete Time: 19:48 [facility] 11/17 18:35 Order name: Urine Dipstick-Ancillary (obtain specimen); Complete Time: 19:39 [facility] 11/17 18:35 Order name: Urine Test (obtain specimen); Complete Time: 19:39 [facility] 11/17 19:36 Order name: Dressing - Wound; Complete Time: 20:13 [facility] 11/17 19:36 Order name: Gloves, Sterile; Complete Time: 20:13 [facility] 11/17 19:36 Order name: Setup Suture Tray; Complete Time: 20:13 [facility] EC:16 Rate is 72 beats/min. Rhythm is regular. QRS [place] is Normal. [place] interval is normal. QRS efraín interval is normal. QT interval is normal. No Q waves. T waves are Normal. No ST changes noted. Clinical impression: Normal ECG and No evidence of ischemia. Interpreted by me. Reviewed by me. Administered Medications: 19:48 Drug: Bactrim (trimethoprim-sulfamethoxazole) (160 mg-800 mg (DS) 1 tablet Route: PO; jb4 20:13 Follow up: Response: No adverse reaction jb4 20:00 Drug: Lidocaine-Epinephrine -1%: (1:100,000) 8 ml {Note: adminitered by ER provider..} jb4 Volume: 20 ml; Route: Infiltration; 20:13 Follow up: Response: No adverse reaction jb4 20:13 Drug: Bactroban (mupirocin) Ointment 2 % 1 application {Note: Applied by ER jb4 physician..} Route: Topical; Site: wound; 20:13 Follow up: Response: Adverse reaction, Physician notified jb4 Disposition Summary: 11/17/22 20:00 Discharge Ordered Location: Home [facility] Problem: new efraín Symptoms: have improved efraín Condition: Stable efraín Diagnosis - Bipolar disorder, unspecified efraín - Cutaneous abscess of left lower limb - knee efraín - Abuse of other non-psychoactive substances efraín Followup: efraín - With: Private Physician - When: 2 - 3 days - Reason: Recheck today's complaints, Continuance of care, Re-evaluation by your physician Followup: efraín - With: - When: 2 - 3 days - Reason: Recheck today's complaints, Re-evaluation by your physician Followup: efraín - With: - When: 2 - 3 days - Reason: Recheck today's complaints, Re-evaluation by your physician Discharge Instructions: - Discharge Summary Sheet efraín - Skin Abscess efraín - Incision and Drainage efraín - Skin Abscess, [id number] efraín - Amphetamines Use Disorder efraín - Substance Use Disorder efraín - Mixed Bipolar Disorder efraín - Substance Use Disorder and Mental Illness efraín - Supporting Someone With Substance Use Disorder [facility] Forms: - Medication Reconciliation Form efraín - Thank You Letter efraín - Antibiotic Education efraín - Prescription Opioid Use [facility] Prescriptions: - Cent[place] 2 % Topical ointment - apply 1 application by TOPICAL route 3 times per day; 30 gram; Refills: 0, [facility] Product Selection Permitted - Bactrim DS 800-160 mg Oral Tablet - take 1 tablet by ORAL route every 12 hours for 7 days; 14 tablet; Refills: 0, [facility] Product Selection Permitted - Doxycycline Hyclate 100 mg Oral Tablet - take 1 tablet by ORAL route every 12 hours; 14 tablet; Refills: 0, Product [facility] Selection Permitted Signatures: Dispatcher [employer] Greg Wilson MD MD cha Bryson, James RN RN jb4 Lyssa Munoz RN RN ko1 Corrections: (The following items were deleted from the chart) 16:46 16:44 Allergies: Latex, Natural Rubber; ko1 ko1 19:17 18:35 Suicide Precautions ordered. [facility] [email or web address] 19:17 18:35 Suicide Screening ([place]) ordered. [facility] mary ann
[2022-11-17 21:17] VITALS: BP 131/94; TEMP 98.1; O2SAT 97
--- NOTE | 2022-11-19 17:01 | EKG ---
Test Date: 2022-11-17 Test Time: 19:05:51 Sewing Machine Adjuster: VALERY MEASUREMENT RESULTS: Intervals: Rate: 72 MA: 136 QRSD: 90 QT: 366 QTc: 400 [place]: P: 48 MA: 136 QRS: 65 T: 59 INTERPRETIVE STATEMENTS: Normal sinus rhythm Normal ECG Compared to ECG 06/01/2021 22:22:53 Sinus arrhythmia no longer present Electronically Signed On 11-19-22 16:57:16 NUCLEAR FUEL PROCESSING TECHNICIAN by Arash Quintero
== END 2022-11-17 20:17 | disposition home or self-care (01) ==
LOC: ER 16:04
DX: L02.416 Cutaneous abscess of left lower limb (principal); F55.8 Abuse of other non-psychoactive substances; F31.9 Bipolar disorder, unspecified; F17.210 Nicotine dependence, cigarettes, uncomplicated
CPT/HCPCS: 93005; 85025; 80048; 36415; 81025; 85610; 80076; 85730; 81003; 80307; 99284; G0480 ×3

== ENCOUNTER 2022-12-03 01:09 | Emergency (ER) | payer OTHER ==
--- OUTSIDE RECORDS SUMMARY | 2022-12-03 01:14 | XMS REPORT | Continuity of Care Document ---
:1980 Author Organization [facility] t Address [address] [place] [address] Care Team Providers Name Role Phone Otto Torres Primary Care Physician [phone] LAURA BELTRAN Attending Clinician Unavailable STU BORGES Attending Clinician Unavailable VAUGHN CHOUDHURY Attending Clinician Unavailable Vaughn Iqbal Attending Clinician ARNEL ALARCON Attending Clinician Unavailable Laura eBltran MD Attending Clinician WALLY KEYS Attending Clinician Unavailable Wally Tracy Attending Clinician MUNDO SOMERS Attending Clinician Unavailable Mundo Reyes Attending Clinician Luis Fernando THORNTON, Lora Attending Clinician Unavailable Doctor Unassigned, [place] Attending Clinician Unavailable Marc Khoury MD Attending Clinician Nayla Sims Attending Clinician JORDAN HALEY Attending Clinician Unavailable Jhoana Townsend Attending Clinician JHOANA SAINZ Attending Clinician Unavailable Pob, [facility] Attending Clinician Unavailable Sammie PARKER, Zenon Seth Attending Clinician ZENON COCHRAN Attending Clinician Unavailable KELSI CORBETT Attending Clinician Unavailable Kelsi Corbett DO Attending Clinician JHOANA SAINZ Admitting Clinician Unavailable Payers Payer Name Policy Type Policy Number Effective Date Expiration Date Gustabo dawson [facility] [id number] 2017 [place] [facility] MEDICAID 00:00:00 [facility] [id number] 0420-12-17 [facility] 00:00:00 MEDICAID [facility] [id number] 2017 00:00:00 Problems Condition Condition Condition Status Onset Resolution Last Treating Co mments Source Name Details Category Date Date Treatment Clinician Date Cellulitis Cellulitis Disease Active U nivers of left of left 2- ity of lower lower 00:00: [place] extremity extremity 00 Medi amari Branch Abscess Abscess Disease Active Univers 2- ity of 00:00: [place] 00 [facility] [place] Skin sore Skin sore Disease Active Uni vers 2- ity of 00:00: [place] 00 Medical Branch Follow-up Follow-up Disease Active Uni vers exam exam 2- ity of 00:00: [place] 00 [facility] Bipolar 1 Bipolar 1 Disease Active Uni vers disorder, disorder, 9-29 ity of manic, manic, 00:00: [place] mild mild 00 [facility] [place] Attention Attention Disease Active Uni vers deficit deficit 8-09 ity of disorder disorder 00:00: [place] (ADD) in (ADD) in 00 Medica l adult adult Branch Allergies, Adverse Reactions, Alerts Allergy Allergy Status Severity Reaction(s) Onset Inactive Treating Comm ents Source Name Type Date Date Clinician NO KNOWN Drug Active Univers ALLERGIE Class ity of S [facility] Social History Social Habit Start Date Stop Date Quantity Comments Source Exposure to 2022-11-10 2022-11-20 Not sure [facility] SARS-CoV-2 00:00:00 15:14:00 [facility] (event) Branch Alcohol intake 2022-11-20 2022-11-20 Ex-drinker [facility] 00:00:00 00:00:00 (finding) [facility] Tobacco use and 2022-07-09 2022-07-09 Smokeless tobacco Un iversity of exposure 00:00:00 00:00:00 non-user [facility] History of 2010-03-28 Cigarette Smoker [facility] ty of tobacco use 00:00:00 [facility] Sex Ass[birth year] Universit y of 00:00:00 00:00:00 [facility] Smoking Status Start Date Stop Date Source Ex-smoker 2022-07-09 00:00:00 2022-07-09 00:00:00 [facility] of [facility] Medications Ordered Filled Start Stop Current Ordering Indication Dosage Frequency Signature Comments Components Source Medication Medication Date Date Medication? Clinician (SIG) Name Name triamcinolo 2022-0 Yes [id number] Apply to [place] [address] area(s) 2 ity of acetonide 00:00: (two) [place] 0.1 % cream 00 times Medical daily. Branch triamcinolo 2022-0 Yes [id number] Apply to [place] [address] area(s) 2 ity of acetonide 00:00: (two) [place] 0.1 % cream 00 times Medical daily. Branch sulfamethox 2022-0 Yes Univer s azole-trime 1-31 ity of thoprim 00:00: [place] 800-160 mg 00 Medical per tablet Branch sulfamethox 2022-0 Yes Univer s azole-trime 1-31 ity of thoprim 00:00: [place] 800-160 mg 00 Medical per tablet Branch hydrOXYzine 2022-0 Yes TAKE 1-2 Un ninoska 25 mg 1-27 TABLET BY ity of tablet 00:00: MOUTH FOR SLEEP Medical Branch hydrOXYzine 2022-0 Yes TAKE 1-2 Un ninoska 25 mg 1-27 TABLET BY ity of tablet 00:00: MOUTH FOR [place] SLEEP Medical Branch mupirocin 2 2022-0 Yes APPLY Unive rs % ointment 1-26 SPARINGLY ity of 00:00: TOPICALLY 00 TO THE Medical AFFECTED Branch AREA TWICE DAILY mupirocin 2 2022-0 Yes APPLY Unive rs % ointment 1-26 SPARINGLY ity of 00:00: TOPICALLY TO THE Medical AFFECTED Branch AREA TWICE DAILY predniSONE 2022-0 Yes 20mg Take 20 mg U nivers 20 mg 1-25 by mouth ity of tablet 00:00: every [place] 00 morning. Medical Branch SENNA 8.6 2022-0 Yes TAKE 2-4 Univ ers mg tablet 1-25 TABLETS BY ity of 00:00: MOUTH [place] [address] DIRECTED Medical NEEDED. Branch DO NOT EXCEED 4 TABLETS IN 24 HOURS predniSONE 2022-0 Yes 20mg Take 20 mg U nivers 20 mg 1-25 by mouth ity of tablet 00:00: every [place] 00 morning. Medical Branch SENNA 8.6 2022-0 Yes TAKE 2-4 Univ ers mg tablet 1-25 TABLETS BY ity of 00:00: MOUTH [place] [address] DIRECTED Medical NEEDED. Branch DO NOT EXCEED 4 TABLETS IN 24 HOURS omeprazole 2022-0 Yes TAKE 1 Unive rs 40 mg 1-23 CAPSULE BY ity of capsule 00:00: MOUTH IN [place] 00 THE Medical MORNING Branch omeprazole 2022-0 Yes TAKE 1 Unive rs 40 mg 1-23 CAPSULE BY ity of capsule 00:00: MOUTH IN [place] 00 THE Medical MORNING Branch FAMOTIDINE 2022-0 No 1-17 00:00: 00 LAMOTRIGINE 2022-0 No 1-12 00:00: 00 dextroamphe 3-0 Yes [id number] 30mg Take 1 Univers tamine-amph 1-11 tablet by ity of etamine 00:00: mouth in [place] (ADDERALL) 00 the Medical 30 mg morning Branch tablet and 1 tablet in the evening. dextroamphe 3-0 Yes [id number] 30mg Take 1 Univers tamine-amph 1-11 tablet by ity of etamine 00:00: mouth in [place] (ADDERALL) 00 the Medical 30 mg morning Branch tablet and 1 tablet in the evening. dextroamphe 3-0 Yes [id number] 30mg Take 1 Univers tamine-amph 1-11 tablet by ity of etamine 00:00: mouth in [place] (ADDERALL) 00 the Medical 30 mg morning Branch tablet and 1 tablet in the evening. dextroamphe 2023-0 Yes [id number] 30mg Take 1 Univers tamine-amph 1-11 tablet by ity of etamine 00:00: mouth in [place] (ADDERALL) 00 the Medical 30 mg morning Branch tablet and 1 tablet in the evening. ACYCLOVIR 2021-1 No 2-29 00:00: 00 TAKE 1 2021-1 No 400 TABLET 2-29 EVERY 8 00:00: HOURS 00 DAILY. acyclovir 2021-10 Yes 400mg Take 400 Uni vers 400 mg 2-29 mg by ity of tablet 00:00: mouth [place] 00 every 8 Medical (eight) Branch hours. acyclovir 2021-10 Yes 400mg Take 400 Uni vers 400 mg 2-29 mg by ity of tablet 00:00: mouth [place] 00 every 8 Medical (eight) Branch hours. TAKE 1-2 2021-10 No 25 TABLET(S) 2-23 FOR SLEEP 00:00: 00 HYDROXYZ 2021-10 No HCL 2-23 00:00: 00 TAKE 1 2021-10 No 100 TABLET 2-23 DAILY. 00:00: 00 AMPHET/DEXT 2021-10 No R 30MG 2-22 Tablets 00:00: 00 AMPHET/DEXT 2021-10 No 30 R 30MG 2-22 00:00: 00 dextroamphe 2021-10 Yes [id number] 30mg Take 1 Univers tamine-amph 2-22 tablet by ity of etamine 00:00: mouth in [place] ([facility]) 00 the Medical 30 mg morning Branch tablet and 1 tablet in the evening. dextroamphe 2021-10- No [id number] 30mg Take 1 Univers tamine-amph 2-22 -11 tablet by it y of etamine 00:00: 00:00 mouth in [place] [facility] :[facility] the Medical 30 mg morning Branch tablet and 1 tablet in the evening. FAMOTIDINE 2021-10 No 2-20 00:00: 00 OMEPRAZOLE 2021- No 2-20 00:00: 00 BUSPIRONE 2021-1 No 2-09 00:00: 00 TRAMADOL 2021-10 No HCL 2-08 00:00: 00 TAKE 1 2021-10 No 50 TABLET BY 2-08 MOUTH EVERY 00:00: 6 HOURS 00 NEEDED dextroamphe 2021-10 Yes [id number] 30mg Take 1 Univers tamine-amph 2-07 tablet by ity of etamine 00:00: mouth in [place] (ADDERALL) 00 the Medical 30 mg morning Branch tablet and 1 tablet in the evening. dextroamphe 2021-10 Yes [id number] 30mg Take 1 Univers tamine-amph 2-07 tablet by ity of etamine 00:00: mouth in [place] (ADDERALL) 00 the Medical 30 mg morning Branch tablet and 1 tablet in the evening. dextroamphe 2021-10 Yes [id number] 30mg Take 1 Univers tamine-amph 2-07 tablet by ity of etamine 00:00: mouth in [place] (ADDERALL) 00 the Medical 30 mg morning Branch tablet and 1 tablet in the evening. dextroamphe 2021-10- No [id number] 30mg Take 1 Univers tamine-amph 2-07 10-10 tablet by it y of etamine 00:00: 00:00 mouth in [place] (ADDERALL) 00 :00 the Medical 30 mg morning Branch tablet and 1 tablet in the evening. TAKE 1 2021- No 100 TABLET 1-28 DAILY. 00:00: 00 TAKE 1 2021-10 No 5 TABLET BY 1-28 MOUTH TWICE 00:00: DAILY 00 TAKE 1 2021-10 No 100 TABLET AT -28 BEDTIME. 00:00: 00 TAKE 1 2021- No 100 TABLET BY 1-28 MOUTH DAILY 00:00: 00 PANTOPRAZOL 2021-10 No E 11-10 00:00: 00 TAKE 1 2021- No TABLET BY 1-16 MOUTH IN 00:00: THE MORNING 00 AND IN THE EVENING dextroamphe 2021-10 Yes [id number] 20mg Take 1 Univers tamine-amph -16 tablet by ity of etamine 00:00: mouth in [place] (ADDERALL) 00 the Medical 20 mg morning Branch tablet and 1 tablet in the evening. dextroamphe 2021-10- No [id number] 20mg Take 1 Univers tamine-amph 1-16 12- tablet by it y of etamine 00:00: 00:00 mouth in [place] (ADDERALL) 00 :00 the Medical 20 mg morning Branch tablet and 1 tablet in the evening. dextroamphe 2021-10- No [id number] 20mg Take 1 Univers tamine-amph 1-16 - tablet by it y of etamine 00:00: 00:00 mouth in [place] (ADDERALL) 00 :00 the Medical 20 mg morning Branch tablet and 1 tablet in the evening. TRAZODONE 2021-1 No 0-28 00:00: 00 TRAZODONE 2021-10 No 0-28 00:00: 00 dextroamphe 2021-10 Yes [id number] 20mg Take 1 Univers tamine-amph 0-24 tablet by ity of etamine 00:00: mouth in [place] (ADDERALL) 00 the Medical 20 mg morning Branch tablet and 1 tablet in the evening. dextroamphe 2021-10- No [id number] 20mg Take 1 Univers tamine-amph 0-24 11-16 tablet by it y of etamine 00:00: 00:00 mouth in [place] (ADDERALL) 00 :00 the Medical 20 mg morning Branch tablet and 1 tablet in the evening. diazePAM 2021-10 No 2mg 2 mg, Slow Un ninoska (VALIUM) 0-20 10-20 IV Push, ity of injection 2 02:15: 02:20 [place]CE[place] 1 [place] :[place] dose, On [facility] 08/07/22 at 2115, STAT diazePAM 2021-10 No 2mg 2 mg, Slow Un ninos[place] (VALIUM) 0-20 10-20 IV Push, ity of injection 2 01:45: 01:43 [place]CE[place] 1 [place] 00 :[place] dose, On [facility] 08/07/22 at 2045, STAT NaCl 0.9% 2021-10 No 1000mL at 999 Uni vers (NS) bolus 0-19 10-20 mL/hr, ity of infusion 22:00: 00:30 1,000 mL, Jorge Alberto as 1,000 mL 00 :00 IV Medical Infusion, Branch ONCE, 1 dose, On [facility] 08/07/22 at 1700, CAMILA diazePAM 2021-10 No 5mg 5 mg, Univers (VALIUM) 0-19 10-19 Oral, ity of tablet 5 mg 22:00: 21:48 ONCE, 1 [place] 00 :[place] dose, On [facility] 08/07/22 at 1700, CAMIL[place] AZITHROMYCI 0 No N TAB 250MG 07-10 00:00: 00 METRONIDAZO 0 No L TAB 500MG 07-10 00:00: 00 traZODone Yes 100mg Take 100 Uni vers 100 mg 9-20 mg by ity of tablet 09:29: mouth at [place] [address] bedtime. Medical Branch traZODone 2022-0 Yes 100mg Take 100 Uni vers 100 mg 9-20 mg by ity of tablet 09:29: mouth at [place] [address] bedtime. Medical Branch traZODone 2-0 Yes 100mg Take 100 Uni vers 100 mg 9-20 mg by ity of tablet 09:29: mouth at [place] [address] bedtime. Medical Branch traZODone 2022-0 Yes 100mg Take 100 Uni vers 100 mg 9-20 mg by ity of tablet 09:29: mouth at [place] [address] bedtime. Medical Branch traZODone 2-0 Yes 100mg Take 100 Uni vers 100 mg 9-20 mg by ity of tablet 09:29: mouth at [place] [address] bedtime. Medical Branch traZODone 2-0 Yes 100mg Take 100 Uni vers 100 mg 9-20 mg by ity of tablet 09:29: mouth at [place] [address] bedtime. Medical Branch traZODone 2-0 Yes 100mg Take 100 Uni vers 100 mg 9-20 mg by ity of tablet 09:29: mouth at [place] [address] bedtime. Medical Branch traZODone 2-0 Yes 100mg Take 100 Uni vers 100 mg 9-20 mg by ity of tablet 09:29: mouth at [place] [address] bedtime. Medical Branch traZODone 2-0 Yes 100mg Take 100 Uni vers 100 mg 9-20 mg by ity of tablet 09:29: mouth at [place] [address] bedtime. Medical Branch traZODone 2-0 Yes 100mg Take 100 Uni vers 100 mg 9-20 mg by ity of tablet 09:29: mouth at [place] [address] bedtime. Medical Branch traZODone 2-0 Yes 100mg Take 100 Uni vers 100 mg 9-20 mg by ity of tablet 09:29: mouth at [place] [address] bedtime. Medical Branch traZODone 2-0 Yes 100mg Take 100 Uni vers 100 mg 9-20 mg by ity of tablet 09:29: mouth at [place] [address] bedtime. Medical Branch traZODone 2022-0 Yes 100mg Take 100 Uni vers 100 mg 9-20 mg by ity of tablet 09:29: mouth at [place] [address] bedtime. Medical Branch traZODone 2022-0 Yes 100mg Take 100 Uni vers 100 mg 9-20 mg by ity of tablet 09:29: mouth at [place] 11 bedtime. Medical Branch traZODone Yes 100mg Take 100 Uni vers 100 mg 9-20 mg by ity of tablet 09:29: mouth at [place] 11 bedtime. Medical Branch traZODone Yes 100mg Take 100 Uni vers 100 mg 9-20 mg by ity of tablet 09:29: mouth at [place] 11 bedtime. Medical Branch clonazePAM 2021- No .5mg Take 0.5 Un ninoska 0.5 mg 9-20 09-20 mg by ity of tablet 09:29: 00:00 mouth at [place] 09 :00 bedtime. Medical Branch clonazePAM 2021-2021- No .5mg Take 0.5 Un ninoska 0.5 mg 9-20 09-20 mg by ity of tablet 09:29: 00:00 mouth at [place] 09 :00 bedtime. Medical Branch OXcarbazepi 2021- No 300mg Take 300 Univers ne 300 mg 9-20 09-20 mg by ity of tablet 09:28: 00:00 mouth at [place] 57 :00 bedtime. Medical Branch OXcarbazepi 2021- No 300mg Take 300 Univers ne 300 mg 9-20 09-20 mg by ity of tablet 09:28: 00:00 mouth at [place] 57 :00 bedtime. Medical Branch amoxicillin 2021- No 1{tbl} Take 1 U nivers -clavulanat 9-20 09-20 tablet by it y of e 09:28: 00:00 mouth 2 [place] (AUGMENTIN) 22 :00 (two) Medical 875-125 mg times Branch per tablet daily. amoxicillin 2021- No 1{tbl} Take 1 U nivers -clavulanat 9-20 09-20 tablet by it y of e 09:28: 00:00 mouth 2 [place] (AUGMENTIN) 22 :00 (two) Medical 875-125 mg times Branch per tablet daily. dextroamphe Yes [id number] 20mg Take 1 Univers tamine-amph 9-20 tablet by ity of etamine 00:00: mouth in [place] (ADDERALL) 00 the Medical 20 mg morning Branch tablet and 1 tablet in the evening. dextroamphe 2021-0 Yes [id number] 20mg Take 1 Univers tamine-amph 9-20 tablet by ity of etamine 00:00: mouth in [place] (ADDERALL) 00 the Medical 20 mg morning Branch tablet and 1 tablet in the evening. dextroamphe 2021-0 Yes [id number] 20mg Take 1 Univers tamine-amph 9-20 tablet by ity of etamine 00:00: mouth in [place] (ADDERALL) 00 the Medical 20 mg morning Branch tablet and 1 tablet in the evening. dextroamphe 2021-0 Yes [id number] 20mg Take 1 Univers tamine-amph 9-20 tablet by ity of etamine 00:00: mouth in [place] (ADDERALL) 00 the Medical 20 mg morning Branch tablet and 1 tablet in the evening. dextroamphe 2021-0 Yes [id number] 20mg Take 1 Univers tamine-amph 9-20 tablet by ity of etamine 00:00: mouth in [place] (ADDERALL) 00 the Medical 20 mg morning Branch tablet and 1 tablet in the evening. dextroamphe 2021-0 Yes [id number] 20mg Take 1 Univers tamine-amph 9-20 tablet by ity of etamine 00:00: mouth in [place] (ADDERALL) 00 the Medical 20 mg morning Branch tablet and 1 tablet in the evening. dextroamphe 2021-0 2- No [id number] 20mg Take 1 Univers tamine-amph 9-20 10-24 tablet by it y of etamine 00:00: 00:00 mouth in [place] (ADDERALL) 00 :00 the Medical 20 mg morning Branch tablet and 1 tablet in the evening. dextroamphe 2021-0 2022- No [id number] 20mg Take 1 Univers tamine-amph 9-20 09-20 tablet by it y of etamine 00:00: 00:00 mouth in [place] (ADDERALL) 00 :00 the Medical 20 mg morning Branch tablet and 1 tablet in the evening. TAKE 1 2021-0 No 10 TABLET BY 8-17 MOUTH ONCE 00:00: DAILY 00 METRONIDAZO 2021-0 No 500 L TAB 500MG 8-17 00:00: 00 AZITHROMYCI 2021-0 No 250 N TAB 250MG 06-05 00:00: 00 clonazePAM 2021-0 Yes .5mg Take 0.5 Uni vers 0.5 mg 8-16 mg by ity of tablet 13:20: mouth at [place] [address] bedtime. Medical Branch clonazePAM 2021-0 Yes .5mg Take 0.5 Uni vers 0.5 mg 8-16 mg by ity of tablet 13:20: mouth at [place] 16 bedtime. Medical Branch traZODone 2021-2021- No 50mg Take 50 mg U nivers 50 mg 8-16 08-16 by mouth ity of tablet 13:19: 00:00 at [place] 27 :00 bedtime. Medical Branch traZODone 2021-2021- No 50mg Take 50 mg U nivers 50 mg 8-16 08-16 by mouth ity of tablet 13:19: 00:00 at [place] 27 :00 bedtime. Medical Branch lithium 2021-2021- No 900mg Take 900 Univ ers carbonate 8-16 08-16 mg by ity of 300 mg 13:17: 00:00 mouth at [place] tablet 48 :00 bedtime. Medical Branch lithium 2021-2021- No 900mg Take 900 Univ ers carbonate 8-16 08-16 mg by ity of 300 mg 13:17: 00:00 mouth at [place] tablet 48 :00 bedtime. Medical Branch dextroamphe 2021-0 Yes [id number] 20mg Take 1 Univers tamine-amph 8-16 tablet by ity of etamine 00:00: mouth in [place] (ADDERALL) 00 the Medical 20 mg morning Branch tablet and 1 tablet in the evening. dextroamphe 2021-0 Yes [id number] 20mg Take 1 Univers tamine-amph 8-16 tablet by ity of etamine 00:00: mouth in [place] (ADDERALL) 00 the Medical 20 mg morning Branch tablet and 1 tablet in the evening. dextroamphe 2021-2021- No [id number] 20mg Take 1 Univers tamine-amph 8-16 09-20 tablet by it y of etamine 00:00: 00:00 mouth in [place] (ADDERALL) 00 :00 the Medical 20 mg morning Branch tablet and 1 tablet in the evening. dextroamphe 2021-2021- No [id number] 20mg Take 1 Univers tamine-amph 8-16 09-20 tablet by it y of etamine 00:00: 00:00 mouth in [place] (ADDERALL) 00 :00 the Medical 20 mg morning Branch tablet and 1 tablet in the evening. TAKE 1 2-0 No 20 TABLET BY 7-12 MOUTH TWICE 00:00: DAILY 00 &lt 2022-0 No 100 7-12 00:00: 00 benzonatate 2022-0 2022- No [id number] 100mg Take 1 Univers 100 mg 7-10 08-16 capsule by ity of capsule 00:00: 00:00 mouth 3 [place] 00 :00 (three) Medical times Branch daily as needed for Cough. benzonatate 2022-0 2022- No [id number] 100mg Take 1 Univers 100 mg 7-10 08-16 capsule by ity of capsule 00:00: 00:00 mouth 3 [place] 00 :00 (three) Medical times Branch daily [...] mouth ity of tablet 00:00: in the [place] [address] morning. Medical Branch lamoTRIgine 2022-0 Yes 50mg Take 50 mg Univers 25 mg 6-30 by mouth ity of tablet 00:00: in the [place] [address] morning. Medical Branch lamoTRIgine 2022-0 Yes 50mg Take 50 mg Univers 25 mg 6-30 by mouth ity of tablet 00:00: in the [place] [address] morning. Medical Branch lamoTRIgine 2022-0 Yes 50mg Take 50 mg Univers 25 mg 6-30 by mouth ity of tablet 00:00: in the [place] [address] morning. Medical Branch lamoTRIgine 2022-0 Yes 50mg Take 50 mg Univers 25 mg 6-30 by mouth ity of tablet 00:00: in the [place] [address] morning. Medical Branch lamoTRIgine 2022-0 Yes 50mg Take 50 mg Univers 25 mg 6-30 by mouth ity of tablet 00:00: in the [place] 00 morning. Medical Branch lamoTRIgine 2022-0 Yes 50mg Take 50 mg Univers 25 mg 6-30 by mouth ity of tablet 00:00: in the [place] 00 morning. Medical Branch lamoTRIgine 2022-0 Yes 50mg Take 50 mg Univers 25 mg 6-30 by mouth ity of tablet 00:00: in the [place] morning. Medical Branch lamoTRIgine 2022-0 Yes 50mg Take 50 mg Univers 25 mg 6-30 by mouth ity of tablet 00:00: in the [place] morning. Medical Branch lamoTRIgine 2022-0 Yes 50mg Take 50 mg Univers 25 mg 6-30 by mouth ity of tablet 00:00: in the [place] morning. Medical Branch lamoTRIgine 2022-0 Yes 50mg Take 50 mg Univers 25 mg 6-30 by mouth ity of tablet 00:00: in the [place] morning. Medical Branch lamoTRIgine 2022-0 Yes 50mg Take 50 mg Univers 25 mg 6-30 by mouth ity of tablet 00:00: in the [place] morning. Medical Branch lamoTRIgine 2022-0 Yes 50mg Take 50 mg Univers 25 mg 6-30 by mouth ity of tablet 00:00: in the [place] 00 morning. Medical Branch lamoTRIgine 2022-0 Yes 50mg Take 50 mg Univers 25 mg 6-30 by mouth ity of tablet 00:00: in the [place] morning. Medical Branch lamoTRIgine 2022-0 Yes 50mg Take 50 mg Univers 25 mg 6-30 by mouth ity of tablet 00:00: in the [place] morning. Medical Branch lamoTRIgine 2022-0 Yes 50mg Take 50 mg Univers 25 mg 6-30 by mouth ity of tablet 00:00: in the [place] morning. Medical Branch lamoTRIgine 2022-0 Yes 50mg Take 50 mg Univers 25 mg 6-30 by mouth ity of tablet 00:00: in the [place] 00 morning. Medical Branch lamoTRIgine 2022-0 Yes 50mg Take 50 mg Univers 25 mg 6-30 by mouth ity of tablet 00:00: in the [place] 00 morning. Medical Branch Dose 2022-0 No [...] 2022-0 No Unknown 3-14 00:00: 00 Dose 2021-0 No Unknown 3-14 00:00: 00 Lamictal 25 2021-0 No 2mg mg tablet 2-17 00:00: 00 trazodone 2021-0 No 1mg 50 mg 2-17 tablet 00:00: 00 Dose 2-0 No Unknown 1-20 00:00: 00 Dose 2-0 No Unknown 1-20 00:00: 00 Lamictal 25 2020-1 No 2mg mg tablet 2-06 00:00: 00 trazodone 2020-1 No 1mg 50 mg 2-06 tablet 00:00: 00 Lamictal 25 2020-1 No 1mg mg tablet 1-08 00:00: 00 Lamictal 25 2020-1 No 2mg mg tablet 1-08 00:00: 00 trazodone 2020-1 No 1mg 50 mg 1-08 tablet 00:00: 00 Lamictal 25 2020-1 No 1mg mg tablet 0-18 00:00: 00 trazodone 2020-1 No 1mg 50 mg 0-18 tablet 00:00: 00 amoxicillin 2020-0 Yes 1{tbl} Take 1 Un ninoska -clavulanat 9-29 tablet by ity of e 15:10: mouth 2 [place] (AUGMENTIN) 21 (two) Medical 875-125 mg times Branch per tablet daily. OXcarbazepi 2020-0 Yes 300mg Take 300 U nivers ne 300 mg 9-29 mg by ity of tablet 15:10: mouth at [place] [address] bedtime. Medical Branch amoxicillin 2020-0 Yes 1{tbl} Take 1 Un ninoska -clavulanat 9-29 tablet by ity of e 15:10: mouth 2 [place] (AUGMENTIN) 21 (two) Medical 875-125 mg times Branch per tablet daily. OXcarbazepi 1-0 Yes 300mg Take 300 U nivers ne 300 mg 9-29 mg by ity of tablet 15:10: mouth at [place] [address] bedtime. Medical Branch Lamictal 25 2020-0 No 1mg mg tablet 9- 00:00: 00 trazodone 2020-0 No 1mg 50 mg 9-21 tablet 00:00: 00 Abilify 30 2020-0 No 1mg mg tablet 06-20 00:00: 00 oxcarbazepi 2020-0 No 2mg ne 600 mg 06-20 tablet 00:00: 00 lithium 2020-0 No 3mg carbonate 06-20 300 mg 00:00: capsule 00 benzonatate 2020-0 Yes [id number] 100mg Take 1 Univers 100 mg 7-17 capsule by ity of capsule 00:00: mouth 3 [place] 00 (three) Medical times Branch daily as needed for Cough. benzonatate 2020-0 Yes [id number] 100mg Take 1 Univers 100 mg 7-17 capsule by ity of capsule 00:00: mouth 3 [place] 00 (three) Medical times Branch daily as needed for Cough. benzonatate 2020-0 2- No [id number] 100mg Take 1 Univers 100 mg 7-17 09-20 capsule by ity of capsule 00:00: 00:00 mouth 3 [place] 00 :00 (three) Medical times Branch daily as needed for Cough. benzonatate 0 2- No [id number] 100mg Take 1 Univers 100 mg 7-17 09-20 capsule by ity of capsule 00:00: 00:00 mouth 3 [place] 00 :00 (three) Medical times Branch daily as needed for Cough. Lamictal 25 2020-0 No 1mg mg tablet 7 00:00: 00 hydroxyzine 2020-0 No 1mg HCl 25 mg 7-09 tablet 00:00: 00 Lamictal 25 2020-0 No 1mg mg tablet 6- 00:00: 00 hydroxyzine 2020-0 No 1mg HCl 25 mg 6-11 tablet 00:00: 00 pantoprazol 2020-0 Yes [id number] 40mg Take 1 Univers e 40 mg EC 6-09 tablet by ity of tablet 00:00: mouth [place] 00 daily. Medical Branch pantoprazol 2020-0 Yes [id number] 40mg Take 1 Univers e 40 mg EC 6-09 tablet by ity of tablet 00:00: mouth [place] 00 daily. Medical Branch pantoprazol 2020-0 Yes [id number] 40mg Take 1 Univers e 40 mg EC 6-09 tablet by ity of tablet 00:00: mouth [place] 00 daily. Medical Branch pantoprazol 2020-0 Yes [id number] 40mg Take 1 Univers e 40 mg EC 6-09 tablet by ity of tablet 00:00: mouth [place] 00 daily. Medical Branch pantoprazol Yes [id number] 40mg Take 1 Univers e 40 mg EC 6-09 tablet by ity of tablet 00:00: mouth [place] 00 daily. Medical Branch pantoprazol Yes [id number] 40mg Take 1 Univers e 40 mg EC 6-09 tablet by ity of tablet 00:00: mouth [place] 00 daily. Medical Branch pantoprazol Yes [id number] 40mg Take 1 Univers e 40 mg EC 6-09 tablet by ity of tablet 00:00: mouth [place] 00 daily. Medical Branch pantoprazol Yes [id number] 40mg Take 1 Univers e 40 mg EC 6-09 tablet by ity of tablet 00:00: mouth [place] 00 daily. Medical Branch pantoprazol Yes [id number] 40mg Take 1 Univers e 40 mg EC 6-09 tablet by ity of tablet 00:00: mouth [place] 00 daily. [facility] pantoprazol Yes [id number] 40mg Take 1 Univers e 40 mg EC 6-09 tablet by ity of tablet 00:00: mouth [place] 00 daily. [facility] pantoprazol Yes [id number] 40mg Take 1 Univers e 40 mg EC 6-09 tablet by ity of tablet 00:00: mouth [place] 00 daily. [facility] pantoprazol Yes [id number] 40mg Take 1 Univers e 40 mg EC 6-09 tablet by ity of tablet 00:00: mouth [place] 00 daily. [facility] pantoprazol Yes [id number] 40mg Take 1 Univers e 40 mg EC 6-09 tablet by ity of tablet 00:00: mouth [place] 00 daily. [facility] pantoprazol Yes [id number] 40mg Take 1 Univers e 40 mg EC 6-09 tablet by ity of tablet 00:00: mouth [place] 00 daily. [facility] pantoprazol Yes [id number] 40mg Take 1 Univers e 40 mg EC 6-09 tablet by ity of tablet 00:00: mouth [place] 00 daily. [facility] pantoprazol Yes [id number] 40mg Take 1 Univers e 40 mg EC 6-09 tablet by ity of tablet 00:00: mouth [place] 00 daily. [facility] pantoprazol 2020-0 Yes [id number] 40mg Take 1 Univers e 40 mg EC 6-09 tablet by ity of tablet 00:00: mouth 00 daily. [facility] pantoprazol 2020-0 Yes [id number] 40mg Take 1 Univers e 40 mg EC 6-09 tablet by ity of tablet 00:00: mouth 00 daily. Medical Branch Lamictal 25 2020-0 No 1mg mg tablet 5-14 00:00: 00 hydroxyzine 2020-0 No 1mg HCl 25 mg 5-14 tablet 00:00: 00 Lamictal 25 2020-0 No 1mg mg tablet 4-16 00:00: 00 hydroxyzine 2020-0 No 1mg HCl 25 mg 4-16 tablet 00:00: 00 metronidazo 2020-0 No 1mg le 500 mg 4-03 tablet 00:00: 00 ciprofloxac 2020-0 No 1mg in 500 mg 4-03 tablet 00:00: 00 Lamictal 25 2020-0 No 1mg mg tablet 3-19 00:00: 00 hydroxyzine 2020-0 No 1mg HCl 25 mg 3-19 tablet 00:00: 00 Augmentin 2020-0 No 1mg 875 mg-125 3-17 mg tablet 00:00: 00 Macrobid 2020-0 No 1mg 100 mg 3-10 capsule 00:00: 00 Lamictal 25 2020-0 No 1mg mg tablet 2-26 00:00: 00 hydroxyzine 1-0 No 1mg HCl 25 mg 2-26 tablet 00:00: 00 Macrobid 1-0 No 1mg 100 mg 2-09 capsule 00:00: 00 Lamictal 25 2020-0 No 1mg mg tablet 2- 00:00: 00 hydroxyzine 1-0 No 1mg HCl 25 mg 2-01 tablet 00:00: 00 Lamictal 25 2020-0 No 1mg mg tablet 1-15 00:00: 00 hydroxyzine 2020-0 No 1mg HCl 25 mg 1-15 tablet 00:00: 00 Flagyl 500 2019-1 No 1mg mg tablet 0-23 00:00: 00 mupirocin 2 2019- No 1% % topical 0-20 ointment 00:00: 00 acyclovir 2020-1 No 1mg 400 mg 0-20 tablet 00:00: 00 cephalexin 2020-1 No 1mg 500 mg 0-20 capsule 00:00: 00 Flagyl 500 2019-1 No 1mg mg tablet 0-17 00:00: 00 Caladryl 1 2020-1 No 1% %-8 % 0-16 lotion 00:00: 00 hydroxyzine 2020-1 No 12mg HCl 25 mg 0-16 tablet 00:00: 00 Lamictal 25 2019-1 No 2mg mg tablet 0-15 00:00: 00 Lamictal 25 2020-1 No 2mg mg tablet 0-01 00:00: 00 Lamictal 25 2020-0 No 2mg mg tablet 8-19 00:00: 00 hydroxyzine 2020-0 No 12mg HCl 25 mg 8-07 tablet 00:00: 00 Caladryl 1 2020-0 No 1% %-8 % 8-07 lotion 00:00: 00 Lamictal 25 2020-0 No 1mg mg tablet 8-06 00:00: 00 triamcinolo 2020-0 No 1% ne 8-05 acetonide 00:00: 0.1 % 00 topical cream Flagyl 500 2020-0 No 1mg mg tablet 8-05 00:00: 00 acyclovir 2020-0 No 1mg 400 mg 8-05 tablet 00:00: 00 acyclovir 2020-0 No 1mg 400 mg 7-15 tablet 00:00: 00 Latuda 20 2020-0 No 1mg mg tablet 7-08 00:00: 00 Immunizations Ordered Filled Immunization Date Status Comments [facility] e Immunization Name Name SARS-COV-2 COVID-19 2021-01-15 Completed Unive rsity of LUISANA/J&J VACCINE 00:00:00 [facility] SARS-COV-2 COVID-19 2021-01-15 Completed Unive rsity of LUISANA/J&J VACCINE 00:00:00 [facility] SARS-COV-2 COVID-19 2021-01-15 Completed Unive rsity of LUISANA/J&J VACCINE 00:00:00 [facility] SARS-COV-2 COVID-19 2021-01-15 Completed Unive rsity of LUISANA/J&J VACCINE 00:00:00 [facility] SARS-COV-2 COVID-19 2021-01-15 Completed Unive rsity of LUISANA/J&J VACCINE 00:00:00 [facility] SARS-COV-2 COVID-19 2021-01-15 Completed Unive rsity of LUISANA/J&J VACCINE 00:00:00 [facility] SARS-COV-2 COVID-19 2021-01-15 Completed Unive rsity of LUISANA/J&J VACCINE 00:00:00 [facility] SARS-COV-2 COVID-19 2021-01-15 Completed Unive rsity of LUISANA/J&J VACCINE 00:00:00 [facility] SARS-COV-2 COVID-19 2021-01-15 Completed Unive rsity of LUISANA/J&J VACCINE 00:00:00 [facility] SARS-COV-2 COVID-19 2021-01-15 Completed Unive rsity of LUISANA/J&J VACCINE 00:00:00 [facility] SARS-COV-2 COVID-19 2021-01-15 Completed Unive rsity of LUISANA/J&J VACCINE 00:00:00 [facility] SARS-COV-2 COVID-19 2021-01-15 Completed Unive rsity of LUISANA/J&J VACCINE 00:00:00 [facility] SARS-COV-2 COVID-19 2021-01-15 Completed Unive rsity of LUISANA/J&J VACCINE 00:00:00 [facility] SARS-COV-2 COVID-19 2021-01-15 Completed Unive rsity of LUISANA/J&J VACCINE 00:00:00 [facility] SARS-COV-2 COVID-19 2021-01-15 Completed Unive rsity of LUISANA/J&J VACCINE 00:00:00 [facility] SARS-COV-2 COVID-19 2021-01-15 Completed Unive rsity of LUISANA/J&J VACCINE 00:00:00 [facility] SARS-COV-2 COVID-19 2021-01-15 Completed Unive rsity of LUISANA/J&J VACCINE 00:00:00 [facility] SARS-COV-2 COVID-19 2021-01-15 Completed Unive rsity of LUISANA/J&J VACCINE 00:00:00 [facility] Vital Signs Vital Name Observation Time Observation Value Comments Source Systolic blood 2022-11-20 21:39:00 106 mm[Hg] Univer sity of pressure [place] [facility] Diastolic blood 2022-11-20 21:39:00 63 mm[Hg] Unive rsity of pressure [place] [facility] Heart rate 2022-11-20 21:39:00 118 /min [facility] [place] [facility] Body temperature 2022-11-20 21:39:00 36.72 Annia Univ ersity of [place] [facility] Body height 2022-11-20 21:39:00 162.6 cm [facility] [place] [facility] Body weight 2022-11-20 21:39:00 68.04 kg [facility]i [facility] [place] [facility] BMI 2022-11-20 21:39:00 25.75 kg/m2 [facility] [place] [facility] Oxygen saturation in 2022-11-20 21:39:00 99 /min University of Arterial blood by [employer] [facility]ulse oximetry Branch Systolic blood 2022-09-25 17:10:00 120 mm[Hg] Univer sity of pressure [place] [facility] Diastolic blood 2022-09-25 17:10:00 80 mm[Hg] Unive rsity of pressure [place] [facility] Heart rate 2022-09-25 17:10:00 92 /min [facility] [place] [facility] Body height 2022-09-25 17:10:00 162.6 cm [facility]i ty [facility] [place] [facility] Body weight 2022-09-25 17:10:00 64.864 kg [facility] [place] [facility] BMI 2022-09-25 17:10:00 24.55 kg/m2 [facility] [place] [facility] Systolic blood 2022-08-08 02:23:00 122 mm[Hg] Univer sity of pressure [place] [facility] Diastolic blood 2022-08-08 02:23:00 78 mm[Hg] Unive rsity of pressure [place] [facility] Heart rate 2022-08-08 02:23:00 76 /min [facility]i [facility] [place] [facility] Body temperature 2022-08-08 02:23:00 36.67 Annia Univ [facility] [place] [facility] Respiratory rate 2022-08-08 02:23:00 19 /min Univ ersity [facility] [place] [facility] Oxygen saturation in 2022-08-08 02:23:00 96 /min University of Arterial blood by [employer] [place] [employer] [facility]xim[facility] Branch Body height 2022-08-07 20:26:00 162.6 cm [facility]i [facility] [place] [facility] Body weight 2022-08-07 20:26:00 64.1 kg [facility] [place] [facility] [place] BMI 2022-08-07 20:26:00 24.26 kg/m2 Universi ty of [facility] Systolic blood 2022-07-09 14:25:00 139 mm[Hg] Univer sity of pressure [facility] Diastolic blood 2022-07-09 14:25:00 94 mm[Hg] Unive rsity of pressure [facility] Heart rate 2022-07-09 14:25:00 88 /min Universi ty of [facility] Branch Body height 2022-07-09 14:25:00 162.6 cm Universi ty of [facility] Body weight 2022-07-09 14:25:00 65.318 kg Universi ty [facility] BMI 2022-07-09 14:25:00 24.72 kg/m2 Universi ty [facility] Systolic blood 2022-06-04 18:16:00 115 mm[Hg] Univer sity of pressure [facility] Diastolic blood 2022-06-04 18:16:00 74 mm[Hg] Unive rsity of pressure [facility] Body height 2022-06-04 18:16:00 162.6 cm [facility]i [facility] [place] [facility] Body weight 2022-06-04 18:16:00 64.864 kg Universi ty [facility] BMI 2022-06-04 18:16:00 24.55 kg/m2 Universi ty [facility] BP Systolic 2022-11-12 09:56:00 119 mm[Hg] BP [...] Procedure Date / Time Performed Performing Clinician Lara ya CREATINE KINASE 2022-08-07 21:44:00 [facility] LIPASE 2022-08-07 21:44:00 [facility] TEST, SERUM 2022-08-07 21:44:00 [facility] TROPONIN I 2022-08-07 21:44:00 [facility] HEPATIC FUNCTION PANEL 2022-08-07 21:44:00 [facility] ([id number]) [facility] (ALB,T.PRO,BILI T,BU/BC,ALT,AST,ALK PHOS) BASIC METABOLIC PANEL 2022-08-07 21:44:00 [facility] (NA, K, CL, CO2, Medical Branch GLUCOSE, BUN, CREATININE, CA) SALICYLATE 2022-08-07 21:44:00 [facility] ETHANOL 2022-08-07 21:44:00 [facility] CBC WITH DIFF 2022-08-07 21:44:00 [facility] Plan of Care Planned Activity Planned Date Details Comments Source Goal Plan of Care Note [code = 57603-5] Goal Plan of Care Note [code = 58767-0] Goal Plan of Care Note [code = 54726-2] Goal Plan of Care Note [code = 64251-2] Goal Plan of Care Note [code = 68398-2] Goal Plan of Care Note [code = 73399-8] Goal Plan of Care Note [code = 46017-9] Goal Plan of Care Note [code = 57202-2] Goal Plan of Care Note [code = 84257-5] Goal Plan of Care Note [code = 59246-6] Goal Plan of Care Note [code = 02915-4] Goal Plan of Care Note [code = 24354-4] Goal Plan of Care Note [code = 74875-8] Goal Plan of Care Note [code = 38729-6] Goal Plan of Care Note [code = 98839-0] Goal Plan of Care Note [code = 13450-4] Goal Plan of Care Note [code = 45937-2] Goal Plan of Care Note [code = 81962-2] Goal Plan of Care Note [code = 11301-9] Goal Plan of Care Note [code = 93282-7] Goal Plan of Care Note [code = 11481-0] Goal Plan of Care Note [code = 98407-8] Goal Plan of Care Note [code = 77208-4] Goal Plan of Care Note [code = 76303-6] Goal Plan of Care Note [code = 62229-5] Goal Plan of Care Note [code = 02008-8] Goal Plan of Care Note [code = 67789-1] Goal Plan of Care Note [code = 35941-5] Goal Plan of Care Note [code = 52532-2] Goal Plan of Care Note [code = 40672-7] Goal Plan of Care Note [code = 86766-7] Goal Plan of Care Note [code = 68022-9] Goal Plan of Care Note [code = 28142-7] Encounters Start End Encounter Admission Attending Care Care Encounter Source Date/Time Date/Time Type Type Clinicians Facility Department ID 2021-08-20 Emergency [facility] [id number] Univers 08:51:37 [facility] 2023-01-23 2023-01-23 Outpatient Casey BELTRAN [facility] [id number] Univers 10:00:00 10:00:00 LAURA [facility] 2022-12-26 2022-12-26 Outpatient [facility] [id number] [place] [address] 00:00:00 00:00:00 [facility] 2022-11-20 2022-11-20 Outpatient Casey CHOUDHURY [facility] [id number] Univers 15:30:00 16:22:49 VAUGHN [facility] 2022-11-20 2022-11-20 Office Britney [facility] 1.2.840.114 [id number] Univers 15:30:00 16:22:49 Visit Vaughn [facility] [id number] it y of [facility] 4.2.7.2.686 Jorge Alberto as HI?BLEA [id number] Me dical KNEY 044 [facility] 2022-11-19 2022-11-19 Outpatient Casey AGNES [facility] [id number] Univers 09:30:00 09:30:00 ARNEL bates [facility] 2022-11-14 2022-11-14 Outpatient [facility] [id number] Ignacio 11:59:29 11:59:29 0126 F Yan 2022-11-13 2022-11-[address] [facility] 1.2.840.114 [id number] Univers 00:00:00 00:00:00 [facility] [id number] it y of [place] 4.2.7.2.686 Jorge Alberto as HI?BLEA [phone] Ca fuentes BECERRA [address] [place] [address] 2022-11-12 2022-11-12 Outpatient [facility] [id number] Ignacio 09:48:10 09:48:10 0124 [facility] 2022-11-12 2022-11-12 Outpatient [id number] 00:00:00 00:00:00 Visit [id number] 2022-11-11 2022-11-11 Outpatient Casey RUBY [facility] [id number] Univers 09:15:00 09:15:00 LAURA bates [facility] 2022-10-30 2022-10-30 [facility] 1.2.840.114 [id number] Univers 00:00:00 00:00:00 [facility] [id number] it y of [place] 4.2.7.2.686 Jorge Alberto as HI?BLEA [phone] Ca fuentes BECERRA [address] [place] [address] 2022-10-10 2022-10-[address] [facility] 1.2.840.[id number] [facility] 00:00:00 00:00:00 Laura HEALTH [id number] it y of [place] 4.2.7.2.686 Jorge Alberto as HI?BLEA [phone] Ca dicfaheem BECERRA [address] [place] [address] 2022-10-07 2022-10-[address] [facility] 1.2.840.[id number] [facility] 00:00:00 00:00:00 [facility] [id number] it y of [place] 4.2.7.2.686 Jorge Alberto as HI?BLEA [phone] Ca fuentes [address] OFFICE [facility] 2022-09-25 2022-09-25 Outpatient R [facility] [id number] Univers 11:00:00 11:20:08 LAURA ity of [facility] 2022-09-25 2022-09-[address] [facility] 1.2.840.[id number] [facility] 11:00:00 11:20:08 Visit [facility] [id number] it y of [place] 4.2.7.2.686 Jorge Alberto as HI?BLEA [phone] Ca fuentes BECERRA [address] [place] [address] OFFICE [facility] 2022-09-03 2022-09-03 [facility] 1.2.840.114 [id number] Univers 00:00:00 00:00:00 [facility] [id number] it y of [place] 4.2.7.2.686 Jorge Alberto as HI?BLEA [phone] Ca fuentes [address] OFFICE [facility] 2022-08-09 2022-08-09 [facility] 1.2.840.114 [id number] Univers 00:00:00 00:00:00 [facility] [id number] it y of [place] 4.2.7.2.686 Jorge Alberto as HI?BLEA [phone] Ca fuentes BECERRA [address] [place] [address] OFFICE [facility] 2022-08-08 2022-08-[address] [facility] 1.2.840.114 [id number] Univers 00:00:00 00:00:00 [facility] HEALTH [id number] it y of [place] 4.2.7.2.686 Jorge Alberto as HI?BLEA [phone] Ca fuentes BACON[address] OFFICE [facility] 2022-08-072022-08-07 Emergency X [facility] ERT [id number] Univers 15:19:00 21:35:00 WALLY [facility] 2022-08-07 2022-08-[address] [facility] [id number] Univers 15:19:00 21:35:00 [facility] [id number] it y of [place] 4.2.7.2.686 [place] [phone] [address] ([facility]) 2022-07-10 2022-07-[address] [facility] 1.2.840.114 [id number] Univers 00:00:00 00:00:00 Laura HEALTH [id number] it y of [place] 4.2.7.2.686 Jorge Alberto as HI?BLEA [phone] [address] MEDICAL OFFICE [facility] 2022-07-09 2022-07-09 Outpatient R [facility] [id number] Univers 09:15:00 09:44:28 [facility] 2022-07-09 2022-07-[address] [facility] 1.2.840.114 [id number] Univers 09:15:00 09:30:00 Visit [facility] [id number] it y of [place] 4.2.7.2.686 Jorge Alberto as HI?BLEA [phone] [address] MEDICAL OFFICE [facility] 2022-07-09 2022-07-[address] [facility] 1.2.840.114 [id number] Univers 00:00:00 00:00:00 Laura HEALTH 350.1.13.10 it y of [place] 4.2.7.2.686 Jorge Alberto as HI?BLEA [phone] [address] OFFICE BUILDING 2022-06-04 2022-06-04 Outpatient R [facility] [id number] Univers 13:15:00 13:32:49 [facility] 2022-06-04 2022-06-[address] [facility] 1.2.840.114 [id number] Univers 13:15:00 13:30:00 Visit [facility] 350.1.13.10 it y of [facility] 4.2.7.2.686 Jorge Alberto as HI?BLEA [id number] [address] MEDICAL OFFICE BUILDING 2022-06-04 2022-06-04 Outpatient Casey BELTRAN [facility] [id number] Univers 13:15:00 13:15:00 LAURA [facility] 2022-04-28 2022-04-28 Emergency X [facility] ERT [id number] Univers 11:37:00 12:24:00 MUNDO [facility] 2022-04-28 2022-04-28 [facility] 1.2.840.114 [id number] Univers 11:37:00 12:24:00 Mundo [place] 350.1.13.10 i ty of [place] [id number] [facility] [address] [place] [address] 2022-04-28 2022-04-28 Letter Lora Gould 1.2.840.114 [id number] Univers 00:00:00 00:00:00 (Out) IJEOMA 350.1.13.10 it y of [facility] 4.2.7.2.686 Jorge Alberto as [id number] [facility] [address]19 [place] 2021-07-18 2021-07-[address] [facility] 1.2.840.114 [id number] Univers 14:56:51 15:32:09 Visit [facility] 350.1.13.10 it y of [facility] 4.2.7.2.686 Jorge Alberto as Hi?Blea [phone] [address] Medical Office [facility] 2021-07-18 2021-07-18 Outpatient Casey BELTRAN [facility] [id number] Univers 15:00:00 15:00:00 LAURA yvonne [facility] 2021-05-30 2021-05-30 Pauline CABELLO 1.2.840.114 [id number] Univers 00:00:00 00:00:00 Only Unassigned, IJEOMA 350.1.13.10 ity of [place] [facility] 4.2.7.2.686 Jorge Alberto as [phone] [facility] [address] [place] 2021-05-25 2021-05-25 [facility] 1.2.840.114 [id number] Univers 00:00:00 00:00:00 [facility] 350.1.13.10 it y of [place] 4.2.7.2.686 Jorge Alberto as Professio [phone] Ca dic[address] Office [facility] One 2021-05-25 2021-05-25 [facility] 1.2.840.114 [id number] 00:00:00 00:00:00 [facility] 350.1.13.10 [place] 4.2.7.2.686 Professio [phone] [place] [address] Office [facility] One 2021-05-21 2021-05-21 [facility] 1.2.840.114 [id number] Univers 00:00:00 00:00:00 [facility] 350.1.13.10 it y of [place] 4.2.7.2.686 Jorge Alberto as Professio [phone] [address] Office [facility] One 2021-05-21 2021-05-21 [facility] 1.2.840.114 [id number] 00:00:00 00:00:00 [facility] 350.1.13.10 [place] 4.2.7.2.686 Professio [phone] [place] [address] Office [facility] 2021-05-05 2021-05-05 [facility] 1.2.254.[id number] [facility] [place] 11:42:00 13:42:00 Marc [place] 350.1.13.10 i ty of [place]2.7.2.686 [place] [facility] [id number] [facility] [address]84 [place] 2021-05-05 2021-05-05 [facility] [id number] 11:42:00 13:42:00 Marc [place] 350.1.13.10 [place] 4.2.7.2.686 [facility] [id number] 2021-05-04 2021-05-04 Telephone [facility] [id number] [facility] [place] 00:00:00 00:00:00 Nayla [facility] 350.1.13.10 ity of [place] 4.2.7.2.686 Jorge Alberto as Professio [phone] [address] Office Building One 2021-05-04 2021-05-04 Telephone [facility] [id number] [id number] 00:00:00 00:00:00 Nayla [facility] 350.1.13.10 [place] 4.2.7.2.686 Professio [phone] [place] [address] Office [facility] One 2021-05-03 2021-05-03 Urgent [facility] 1.2.840.114 [id number] Univers 17:09:02 17:56:38 Care Nayla [facility] 350.1.13.10 ity of [place] 4.2.7.2.686 Jorge Alberto as Professio [phone] [address] Office [facility] 2021-05-03 2021-05-03 Urgent [facility] 1.2.840.114 [id number] 17:09:02 17:56:38 Care Nayla L[facility] 350.1.13.10 [place] 4.2.7.2.686 Professio [phone] [place] [address] Office Building One 2021-05-03 2021-05-03 Outpatient R [facility] [id number] Univers 17:20:00 17:20:00 ity of [facility] 2021-04-25 2021-04-[address] [facility] 1.2.840.114 [id number] 10:32:12 10:47:12 Visit [facility] 350.1.13.10 Edward [place] 4.2.7.2.686 Professio [id number] [place] [address] Office Building One 2021-04-25 2021-04-[address] [facility] 1.2.840.114 [id number] Univers 10:32:12 10:47:12 Visit [facility] 350.1.13.10 it y of [place] 4.2.7.2.686 Jorge Alberto as Professio [phone] [address] Office [facility] One 2021-04-25 2021-04-25 Outpatient Casey BELTRAN [facility] [id number] Univers 10:30:00 10:30:00 LAURA castañedayvonne [facility] 2021-04-25 2021-04-25 Orders Doctor DESTINEY 1.2.840.114 [id number] 00:00:00 00:00:00 Only Unassigned, IJEOMA 350.1.13.10 [place] [facility] 4.2.7.2.686 [id number] 2021-04-25 2021-04-25 Orders Doctor DESTINEY 1.2.840.114 [id number] Univers 00:00:00 00:00:00 Only Unassigned, IJEOMA 350.1.13.10 ity of [place] [facility] 4.2.7.2.686 Jorge Alberto as [phone] [address] 2021-04-19 2021-04-19 Orders Doctor DESTINEY 1.2.840.114 [id number] Univers 00:00:00 00:00:00 Only Unassigned, IJEOMA 350.1.13.10 ity of [place] [facility] 4.2.7.2.686 Jorge Alberto as [id number] [address] 2021-04-11 2021-04-11 Outpatient Casey HALEY [facility] [id number] Univers 15:30:00 15:30:00 JORDAN castañedayvonne [facility] 2021-03-28 2021-03-28 [facility] 1.2.840.114 [id number] Univers 09:16:27 09:46:27 Visit [facility] 350.1.13.10 it y of [place] 4.2.7.2.686 Jorge Alberto as Professio [phone] [address] One 2021-03-28 2021-03-28 Outpatient Casey BELTRAN [facility] [id number] Univers 09:30:00 09:30:00 LAURA paulo [facility] 2020-11-25 2020-11-26 Emergency [facility] 1.2.840.114 [id number] Univers 22:09:00 00:35:00 Jhoana [place] 350.1.13.10 ity [facility] 4.2.7.2.686 [facility] [phone] [address] 2020-11-25 2020-11-26 Emergency [facility] [id number] Univers 22:09:00 00:35:00 JHOANA ity [facility] 2020-10-17 2020-10-17 Coding File Clerk Marly, Adc Lab Main [facility] 1.2.8 40.114 [id number] Univers 11:03:50 11:18:50 Visit Zenon Cochran 350.1. 13.10 ity [facility] 4.2.7.[address] [place] [address] Professio [phone] Ca dical [address] 2020-10-17 2020-10-17 Outpatient R [facility]E [facility] [id number] Univers 11:00:00 11:00:00 ZENON bates [facility] 2020-10-17 2020-10-17 Orders Doctor DESTINEY [id number] Univers 00:00:00 00:00:00 Only Unassigned, IJEOMA [id number] ity of [place] [facility] [id number] [facility] [phone] [address] 2020-10-05 2020-10-05 Emergency [facility] [id number] Univers 09:47:00 15:13:00 KELSI ity [facility] 2020-10-05 2020-10-05 Emergency [facility] [id number] [facility] 09:47:00 15:13:00 Kelsi Barlow [id number] [facility] [id number] [facility] [phone] [address] Results Test Description Test Time Test Comments Results Result Comments Source TEST, SERUM 2022-08-07 22:34:41 Test Item Value Reference Range Interpretation Comme nts PREG SERUM (test code = 2003568675) Negative GALLO (test code = GALLO) Less than 10 IU/L. ?If low titer or ectopic is suspected, resubmit specimen in 48-72 hours. [facility] [id number] 22:33:51 Test Item Value Reference Interpretation Comments Range TROPONIN I (test 0.002 ng/mL See_Comment [Automated code = 5549999267) message] The system which generated this result [...] biotin. Lab Interpretation Normal (test code = 62811-9) [facility] 22:27:20 SALICYLATE<10mg/L1 5:[address] [facility]AT[facility] SERVICESVA [facility]ENTERTherapeutic Range: ? Analgesic and Antipyretic Use ? 20-100 mg/L ? ? Anti-Inflammatory Use ? 100-250 mg/L Toxic Range: ? Greater than 300 [facility] [id number] 22:27:15ALCOHOL<10mg/dL08/07/2022 5:[address] [facility] Greater thanor equal to 80 mg/dL. NOTE: Whole blood values are approximately 10% to 15% lower than serum and plas ma.[facility] CenterACETAMINOPHEN2022-10-19 22:27:10 Test Item Value Reference Range Interpretation Comments ACETAMINOP (test code = 10-30 L 7108937076) GALLO (test code = GALLO) Toxic: Greater than 200 ug/mL @ 4 hour post ingestion or greater than 50 ug/mL @ 12 hour post ingestion Lab Interpretation (test Abnormal code = 22037-5) [facility] METABOLIC PANEL (NA, K, CL, CO2, GLUCOSE, BUN, CREATININE, CA)2022-08-07 22:23:27 Test Item Value Reference Range Interpretation Comments NA (test code = 138 mmol/L 135-145 4566719838) K (test code = 3.9 mmol/L 3.5-5 3429502259) CL (test code = 102 mmol/L 98-108 9150080667) CO2 TOTAL (test code 27 mmol/L 23-31 = 5880000632) AGAP (test code = 2-16 7226222026) BUN (test code = 16 mg/dL 7-23 7529415625) GLUCOSE (test code = 87 mg/dL 70-110 5392830889) CREATININE (test code 0.69 mg/dL 0.5-1.04 = 0905513653) CALCIUM (test code = 9.7 mg/dL 8.6-10.6 6562896483) eGFR (test code = mL/min/1.73m2 3946765637) GALLO (test code = GALLO) Association of [...] or urine or abnormalities in imaging tests). [facility] CenterCREATINE [id number] 22:23:27 Test Item Value Reference Range Interpretation Comments CK (test code = 9519522770) 45 U/L 33-194 Lab Interpretation (test code = Normal 36183-4) [facility] CenterHEPATIC FUNCTION PANEL (88939) (ALB,T.PRO,BILI T,BU/BC,ALT,AST,ALK PHOS)2022-08-07 22:23:27 Test Item Value Reference Range Interpretation Comments TOTAL BILI (test code = 2532507251) 0.7 mg/dL 0.1-1.1 BILI UNCON (test code = 4104904277) 0.3 mg/dL 0.1-1.1 BILI CONJ (test code = 1240444624) 0.0 mg/dL 0-0.3 T PROTEIN (test code = 5836328446) 7.4 g/dL 6.3-8.2 ALBUMIN (test code = 6084407641) 4.4 g/dL 3.5-5 ALK PHOS (test code = 7177245868) 80 U/L 34-122 ALTv (test code = 1742-6) 15 U/L 5-35 AST(SGOT) (test code = 9209133574) 15 U/L 13-40 Lab Interpretation (test code = Normal 04600-9) [facility] CenterLIPASE2022-[facility] 22:23:27 Test Item Value Reference Range Interpretation Comments LIPASE (test code = 5684811896) 51 U/L 0-220 Lab Interpretation (test code = Normal 91923-2) [facility] CenterCBC WITH [id number] 22:06:06 Test Item Value Reference Range Interpretation [...] RDW-SD (test code = 40.6 fL 39-49.9 35801-7) RDW-CV (test code = 13.1 % 12-15.5 788-0) PLT (test code = See_Comment H [Automated 777-3) message] The sy stem which generated this result transmitted reference range : 166 - 358 10*3/ ?L. The reference r deb was not used to interpret this result as normal/abnormal . MPV (test code = 10.1 fL 9.5-12.9 09570-0) NRBC/100 WBC (test See_Comment [Automat ed code = 9792497360) message] The system which generated this result transmitted reference range : 0.0 - 10.0 /100 WBCs. The refer ence range was not u sed to interpret th is result as normal/abnormal . NRBC x10^3 (test code See_Comment [Auto mated = 7086828846) message] The s ystem which generated this result transmitted reference range : 10*3/?L. The reference range was not used to interpret this result as normal/abnormal . GRAN MAT (NEUT) % 62.7 % (test code = 770-8) IMM GRAN % (test code 0.40 % = 3260016596) LYMPH % (test code = 25.7 % 736-9) MONO % (test code = 7.8 % 5905-5) EOS % (test code = 2.8 % 713-8) BASO % (test code = 0.6 % 706-2) GRAN MAT x10^3(ANC) 8.40 10*3/uL 1.88-7.09 H (test code = 7441109020) IMM GRAN x10^3 (test 0.06 10*3/uL 0-0.06 code = 7278548156) LYMPH x10^3 (test code 3.44 10*3/uL 1.32-3.29 H = 731-0) MONO x10^3 (test code 1.04 10*3/uL 0.33-0.92 H = 742-7) EOS x10^3 (test code = 0.38 10*3/uL 0.03-0.39 711-2) BASO x10^3 (test code 0.08 10*3/uL 0.01-0.07 H = 704-7) Lab Interpretation Abnormal (test code = 82861-7) [facility] ([facility]OVID-19[facility] by RT-PCR (HIGH RISK) 2021-06-29 00:00:00 Test Item Value Reference Range Interpretation Comments SARS-CoV-2 INTERPRETATION (test NEGATIVE code = 82594) SOURCE (test code = 04699) NOT SPECIFIED SARS-CoV-2 (COVID-19) by RT-PCR (HIGH RISK)2021-06-29 00:00:00 Test Item Value Reference Range Interpretation Comments SARS-CoV-2 INTERPRETATION (test NEGATIVE code = 69804) SOURCE (test code = 22071) NOT SPECIFIED COMPREHENSIVE METABOLIC [id number] 00:00:00 Test Item Value Reference Range Interpretation Comments GLUCOSE (test code = 2217) 92 MG/DL BUN (test code = 2208) 11 MG/DL CREATININE (test code = 2214) 0.80 MG/DL eGFR AMER. (test code 108 ML/MIN/1.73 = 40741) eGFR NON- AMER. (test 94 ML/MIN/1.73 code = 42144) CALC BUN/CREAT (test code = 14 RATIO 2235) SODIUM (test code = 2231) 142 MEQ/L POTASSIUM (test code = 2228) 4.3 MEQ/L CHLORIDE (test code = 2215) 106 MEQ/L CARBON DIOXIDE (test code = 27 MEQ/L 2206) CALCIUM (test code = 2209) 9.3 MG/DL PROTEIN, TOTAL (test code = 6.6 G/DL 222) ALBUMIN (test code = 2201) 4.3 G/DL CALC GLOBULIN (test code = 2.3 G/DL 2240) CALC A/G RATIO (test code = 1.9 RATIO 2234) BILIRUBIN, TOTAL (test code = 0.3 MG/DL 220) ALKALINE PHOSPHATASE (test 55 U/L code = 2204) AST (test code = 2218) 13 U/L ALT (test code = 2219) 11 U/L COMPREHENSIVE METABOLIC [id number] 00:00:00 Test Item Value Reference Range Interpretation Comments GLUCOSE (test code = 2217) 92 MG/DL BUN (test code = 2208) 11 MG/DL CREATININE (test code = 2214) 0.80 MG/DL eGFR AMER. (test code 108 ML/MIN/1.73 = 02330) eGFR NON- AMER. (test 94 ML/MIN/1.73 code = 04912) CALC BUN/CREAT (test code = 14 RATIO 2235) SODIUM (test code = 2231) 142 MEQ/L POTASSIUM (test code = 2228) 4.3 MEQ/L CHLORIDE (test code = 2215) 106 MEQ/L CARBON DIOXIDE (test code = 27 MEQ/L 2205) CALCIUM (test code = 2209) 9.3 MG/DL PROTEIN, TOTAL (test code = 6.6 G/DL 2228) ALBUMIN (test code = 2201) 4.3 G/DL CALC GLOBULIN (test code = 2.3 G/DL 2240) CALC A/G RATIO (test code = 1.9 RATIO 2234) BILIRUBIN, TOTAL (test code = 0.3 MG/DL 7) ALKALINE PHOSPHATASE (test 55 U/L code = 2204) AST (test code = 2218) 13 U/L ALT (test code = 2219) 11 U/L [id number] 00:00:00 Test Item Value Reference Range Interpretation Comments AMYLASE (test code = 2205) 52 U/L [id number] 00:00:00 Test Item Value Reference Range Interpretation Comments AMYLASE (test code = 2205) 52 U/L [id number] 00:00:00 Test Item Value Reference Range Interpretation Comments LIPASE (test code = 2057) 20 U/L [id number] 00:00:00 Test Item Value Reference Range Interpretation Comments LIPASE (test code = 2057) 20 U/L [id number] 00:00:00 Test Item Value Reference Range Interpretation Comments LIPASE (test code = 2057) 20 U/L CULTURE, URINE [ADDED]2021-01-20 00:00:00 Test Item Value Reference Range Interpretation Comments CULTURE, URINE (test SPECIMEN NUMBER: code = 11576) [id number] CULTURE, URINE [ADDED]2021-01-20 00:00:00 Test Item Value Reference Range Interpretation Comments CULTURE, URINE (test SPECIMEN NUMBER: code = 28979) [id number] GC, AMPLIFIED, [id number] 00:00:00 Test Item Value Reference Range Interpretation Comments GONORRHEA, NAAT (test code = 81005) NEGATIVE GC, AMPLIFIED, [id number] 00:00:00 Test Item Value Reference Range Interpretation Comments GONORRHEA, NAAT (test code = 98806) NEGATIVE [id number] 00:00:00 Test Item Value Reference Range Interpretation Comments RPR RESULT (test code = NON-REACTIVE 3501) RPR TITER (test code = 3500) NOT INDIC. TITER [id number] 00:00:00 Test Item Value Reference Range Interpretation Comments RPR RESULT (test code = NON-REACTIVE 3501) RPR TITER (test code = 3500) NOT INDIC. TITER [id number] 00:00:00 Test Item Value Reference Range Interpretation Comments RPR RESULT (test code = NON-REACTIVE 3501) RPR TITER (test code = 3500) NOT INDIC. TITER VAGINAL PATHOGENS DNA [id number] 00:00:00 Test Item Value Reference Range Interpretation Comments CONRAD SPECIES (test code = ) NEGATIVE G. VAGINALIS (test code = 95457) POSITIVE T. VAGINALIS (test code = ) NEGATIVE VAGINAL PATHOGENS DNA [id number] 00:00:00 Test Item Value Reference Range Interpretation Comments CONRAD SPECIES (test code = ) NEGATIVE G. VAGINALIS (test code = 57921) POSITIVE T. VAGINALIS (test code = 11135) NEGATIVE HIV AB/AG COMBO RFLX [id number] 00:00:00 Test Item Value Reference Range Interpretation Comments HIV 1/2 4TH GEN, RFLX CONF (test NON-REACTIVE code = 3514) HIV AB/AG COMBO RFLX [id number] 00:00:00 Test Item Value Reference Range Interpretation Comments HIV 1/2 4TH GEN, RFLX CONF (test NON-REACTIVE code = 3514) ACUTE HEPATITIS [id number] 00:00:00 Test Item Value Reference Range Interpretation Comments HEPATITIS A IgM (test code = NON-REACTIVE 12762) HEPATITIS B CORE IgM (test code NON-REACTIVE = 4644) HEPATITIS B SURF AG (test code = NON-REACTIVE 2739) HEPATITIS C ANTIBODY (test code NON-REACTIVE = 4675) INTERPRETATION HEPATITIS A: (NOTE) (test code = 2552) INTERPRETATION HEPATITIS B: (NOTE) (test code = 29485) INTERPRETATION HEPATITIS C: (NOTE) (test code = 39173) ACUTE HEPATITIS [id number] 00:00:00 Test Item Value Reference Range Interpretation Comments HEPATITIS A IgM (test code = NON-REACTIVE 48940) HEPATITIS B CORE IgM (test code NON-REACTIVE = 4644) HEPATITIS B SURF AG (test code = NON-REACTIVE 2739) HEPATITIS C ANTIBODY (test code NON-REACTIVE = 4675) INTERPRETATION HEPATITIS A: (NOTE) (test code = 2552) INTERPRETATION HEPATITIS B: (NOTE) (test code = 36721) INTERPRETATION HEPATITIS C: (NOTE) (test code = 13478) CHLAMYDIA, AMPLIFIED, [id number] 00:00:00 Test Item Value Reference Range Interpretation Comments CHLAMYDIA, NAAT (test code = 32529) NEGATIVE CHLAMYDIA, AMPLIFIED, [id number] 00:00:00 Test Item Value Reference Range Interpretation Comments CHLAMYDIA, NAAT (test code = 68193) NEGATIVE CULTURE, [id number] 00:00:00 Test Item Value Reference Range Interpretation Comments CULTURE, URINE (test SPECIMEN NUMBER: code = 70749) [id number] CULTURE, [id number] 00:00:00 Test Item Value Reference Range Interpretation Comments CULTURE, URINE (test SPECIMEN NUMBER: code = 46697) [id number] CULTURE, [id number] 00:00:00 Test Item Value Reference Range Interpretation Comments CULTURE, URINE (test SPECIMEN NUMBER: code = 57941) [id number] CULTURE, [id number] 00:00:00 Test Item Value Reference Range Interpretation Comments CULTURE, URINE (test SPECIMEN NUMBER: code = 86740) [id number] SARS-CoV-2 (COVID-19) by RT-PCR (HIGH RISK)2020-11-03 00:00:00 Test Item Value Reference Range Interpretation Comments SARS-CoV-2 INTERPRETATION (test NEGATIVE code = 35217) SOURCE (test code = 37221) NOT SPECIFIED SARS-CoV-2 (COVID-19) by RT-PCR (HIGH RISK)2020-11-03 00:00:00 Test Item Value Reference Range Interpretation Comments SARS-CoV-2 INTERPRETATION (test NEGATIVE code = 20896) SOURCE (test code = 31353) NOT SPECIFIED CHLAMYDIA, AMPLIFIED, [id number] 00:00:00 Test Item Value Reference Range Interpretation Comments CHLAMYDIA, NAAT (test code = 74397) NEGATIVE CHLAMYDIA, AMPLIFIED, [id number] 00:00:00 Test Item Value Reference Range Interpretation Comments CHLAMYDIA, NAAT (test code = 05490) NEGATIVE GC, AMPLIFIED, [id number] 00:00:00 Test Item Value Reference Range Interpretation Comments GONORRHEA, NAAT (test code = 74496) NEGATIVE GC, AMPLIFIED, [id number] 00:00:00 Test Item Value Reference Range Interpretation Comments GONORRHEA, NAAT (test code = 02491) NEGATIVE VAGINAL PATHOGENS DNA [id number] 00:00:00 Test Item Value Reference Range Interpretation Comments CONRAD SPECIES (test code = ) NEGATIVE G. VAGINALIS (test code = 18461) POSITIVE T. VAGINALIS (test code = 69956) NEGATIVE VAGINAL PATHOGENS DNA [id number] 00:00:00 Test Item Value Reference Range Interpretation Comments CONRAD SPECIES (test code = 80222) NEGATIVE G. VAGINALIS (test code = 83151) POSITIVE T. VAGINALIS (test code = 31435) NEGATIVE GC, AMPLIFIED, [id number] 00:00:00 Test Item Value Reference Range Interpretation Comments GONORRHEA, TMA (test code = 86434) NEGATIVE [id number] 00:00:00 Test Item Value Reference Range Interpretation Comments RPR RESULT (test code = NON-REACTIVE 3501) RPR TITER (test code = 3500) NOT INDIC. TITER [id number] 00:00:00 Test Item Value Reference Range Interpretation Comments RPR RESULT (test code = NON-REACTIVE 3501) RPR TITER (test code = 3500) NOT INDIC. TITER [id number] 00:00:00 Test Item Value Reference Range Interpretation Comments RPR RESULT (test code = NON-REACTIVE 3501) RPR TITER (test code = 3500) NOT INDIC. TITER HIV AB/AG COMBO RFLX [id number] 00:00:00 Test Item Value Reference Range Interpretation Comments HIV 1/2 4TH GEN, RFLX CONF (test NON-REACTIVE code = 3514) PAP TEST, THINPREP, [id number] 00:00:00 Test Item Value Reference Range Interpretation Comments SOURCE: (test code = Cervical/Endocervical 8001) SLIDES: (test code = 1 8011) LMP: (test code = 8021) 05/11/2020 SPECIMEN ADEQUACY: (test (NOTE) code = 15007) INTERPRETATION: (test NILM/NO EPITH. code = 90399) ABNORMALITY;SEE BELOW TROMPER: (test JACKSON Mao(ASCP) code = 8101) LOCATION: (test code = (NOTE) 87464) CPT: (test code = 8140) (NOTE) VAGINAL PATHOGENS DNA [id number] 00:00:00 Test Item Value Reference Range Interpretation Comments CONRAD SPECIES (test code = ) NEGATIVE G. VAGINALIS (test code = 35221) NEGATIVE T. VAGINALIS (test code = 35182) NEGATIVE HIV AB/AG COMBO RFLX [id number] 00:00:00 Test Item Value Reference Range Interpretation Comments HIV 1/2 4TH GEN, RFLX CONF (test NON-REACTIVE code = 3514) VAGINAL PATHOGENS DNA [id number] 00:00:00 Test Item Value Reference Range Interpretation Comments CONRAD SPECIES (test code = ) NEGATIVE G. VAGINALIS (test code = 03047) NEGATIVE T. VAGINALIS (test code = 70383) NEGATIVE PAP TEST, THINPREP, [id number] 00:00:00 Test Item Value Reference Range Interpretation Comments SOURCE: (test code = Cervical/Endocervical 8001) SLIDES: (test code = 1 8011) LMP: (test code = 8021) 05/11/2020 SPECIMEN ADEQUACY: (test (NOTE) code = 84782) INTERPRETATION: (test NILM/NO EPITH. code = 10441) ABNORMALITY;SEE BELOW TROMPER: (test JACKSON Mao(ASCP) code = 8101) LOCATION: (test code = (NOTE) 50673) CPT: (test code = 8140) (NOTE) ACUTE HEPATITIS [id number] 00:00:00 Test Item Value Reference Range Interpretation Comments HEPATITIS A IgM (test code = NON-REACTIVE 28710) HEPATITIS B CORE IgM (test code NON-REACTIVE = 4644) HEPATITIS B SURF AG (test code = NON-REACTIVE 2739) HEPATITIS C ANTIBODY (test code NON-REACTIVE = 4675) INTERPRETATION HEPATITIS A: (NOTE) (test code = 2552) INTERPRETATION HEPATITIS B: (NOTE) (test code = 69982) INTERPRETATION HEPATITIS C: (NOTE) (test code = 43365) HPV HIGH RISK WITH GENOTYPE, [id number] 00:00:00 Test Item Value Reference Range Interpretation Comments HPV HIGH RISK INTERP (test code = NEGATIVE 51494) HPV 16 (test code = 69506) NEGATIVE HPV 18 (test code = 66339) NEGATIVE HPV, HR, OTHER GENOTYPES (test code NEGATIVE = 30540) HPV HIGH RISK WITH GENOTYPE, [id number] 00:00:00 Test Item Value Reference Range Interpretation Comments HPV HIGH RISK INTERP (test code = NEGATIVE 99991) HPV 16 (test code = 96472) NEGATIVE HPV 18 (test code = 58332) NEGATIVE HPV, HR, OTHER GENOTYPES (test code NEGATIVE = 20569) ACUTE HEPATITIS [id number] 00:00:00 Test Item Value Reference Range Interpretation Comments HEPATITIS A IgM (test code = NON-REACTIVE 72750) HEPATITIS B CORE IgM (test code NON-REACTIVE = 4644) HEPATITIS B SURF AG (test code = NON-REACTIVE 2739) HEPATITIS C ANTIBODY (test code NON-REACTIVE = 4675) INTERPRETATION HEPATITIS A: (NOTE) (test code = 2552) INTERPRETATION HEPATITIS B: (NOTE) (test code = 45379) INTERPRETATION HEPATITIS C: (NOTE) (test code = 38435) CHLAMYDIA, AMPLIFIED, [id number] 00:00:00 Test Item Value Reference Range Interpretation Comments CHLAMYDIA, TMA (test code = 59283) NEGATIVE CHLAMYDIA, AMPLIFIED, [id number] 00:00:00 Test Item Value Reference Range Interpretation Comments CHLAMYDIA, TMA (test code = 40920) NEGATIVE GC, AMPLIFIED, [id number] 00:00:00 Test Item Value Reference Range Interpretation Comments GONORRHEA, TMA (test code = 72990) NEGATIVE [id number] 00:00:00 Test Item Value Reference Range Interpretation Comments PROLACTIN (test code = 2800) 11.0 NG/ML [id number] 00:00:00 Test Item Value Reference Range Interpretation Comments PROLACTIN (test code = 2800) 11.0 NG/ML [id number] 00:00:00 Test Item Value Reference Range Interpretation Comments TSH, THIRD GENERATION (test code 0.793 UIU/ML = 2821) [id number] 00:00:00 Test Item Value Reference Range Interpretation Comments TSH, THIRD GENERATION (test code 0.793 UIU/ML = 2821) [id number] 00:00:00 Test Item Value Reference Range Interpretation Comments TSH, THIRD GENERATION (test code 0.793 UIU/ML = 2821)"
[2022-12-03] MEDS ORDERED: METOCLOPRAMIDE 10 MG/2mL INJ ONE (02:39)
[2022-12-03] MEDS ORDERED: MORPHINE 2 MG/ML SYR ONE (02:40)
[2022-12-03] MEDS ORDERED: NA CHLORIDE 0.9% 1,000 ML ONE (02:40)
[2022-12-03] MEDS ORDERED: PANTOPRAZOLE 40 MG INJ ONE (02:40)
[2022-12-03 02:54] LABS: Absolute Lymphocytes (CBC) 2.7 K/uL (0.7-4.9); Hematocrit 38.4 % (36.0-45.0); Lymphocytes % 14.9 % (15.3-44.8); MCV 88.4 fL (80-100); RBC Red Blood Cell Count 4.35 M/uL (3.86-4.86)
[2022-12-03 03:09] LABS: Albumin 3.7 g/dL (3.4-5.0); Bilirubin Total 0.2 mg/dL (0.2-1.0); Potassium 3.7 mmol/L (3.5-5.1); Protein, Total 7.6 g/dL (6.4-8.2)
[2022-12-03 03:28] LABS: SARS-COV-2 RT PCR NEGATIVE (NEGATIVE)
[2022-12-03 04:13] LABS: Urine Blood Trace-intact (Negative); Urine Glucose Negative (Negative); Urine Protein Negative (Negative); Urine Specific Gravity 1.015 (1.005-1.030); Urine pH 7.5 (5.0-7.0)
[2022-12-03 04:28] LABS: Urine Bacteria None Seen /HPF (<20)
[2022-12-03 04:54] LABS: Urine Specific Gravity/Preg 1.015 (1.005-1.030)
--- NOTE | 2022-12-03 05:43 | EDPHYS ---
Physician Documentation [facility] Name: Anne Marie Cruz Age: 42 yrs Sex: Female : 1980 Arrival Date: 12/03/2022 Time: 01:12 Bed 14 Private MD: ELIA Physician Greg Barry HPI: 12/03 02:20 This 42 yrs old Female presents to ER via Ambulatory with complaints of Vomiting. cp 02:20 The patient presents to the emergency department with nausea, that is moderate, cp vomiting, 3 times since yesterday, described as bilious. Possible causes: flare up of bowel problem, gastritis, gastric ulcers and possible Crohn's Disease. Associated signs and symptoms: Pertinent positives: abdominal pain for years, cough and headache times 1 month. Severity of symptoms: in the emergency department the symptoms are unchanged. Historical: - Allergies: 01:32 No Known Allergies; kl - Home Meds: 01:31 Adderall XR Oral [Active]; Omeprazole Oral [Active]; Pepcid AC Oral [Active]; Protonix kl Oral [Active]; - PMHx: 01:31 Anxiety; Bipolar disorder; Chronic pain; kl - PSHx: 01:31 hernia repair; kl - Immunization history:: Adult Immunizations up to date. - Social history:: Smoking status: Patient reports the use of cigarette tobacco products, smokes one pack cigarettes per day. ROS: 02:25 Constitutional: Positive for poor PO intake, Negative for body aches, chills, fever. cp 02:25 Eyes: Negative for injury, pain, redness, and discharge. cp 02:25 ENT: Negative for drainage from ear(s), ear pain, sore throat, difficulty swallowing, difficulty handling secretions. 02:25 Cardiovascular: Negative for chest pain, palpitations. 02:25 Respiratory: Positive for cough, Negative for shortness of breath, wheezing. 02:25 Abdomen/GI: Positive for abdominal pain, nausea and vomiting, Negative for diarrhea, constipation, dysphagia, hematemesis, black/tarry stool, rectal bleeding. 02:25 Neuro: Negative for altered mental status, headache, numbness, syncope, weakness. 02:25 All other systems are negative. Exam: 02:30 Constitutional: The patient appears in no acute distress, alert, awake, cp non-diaphoretic, non-toxic, well developed, well nourished. 02:30 Head/Face: Normocephalic, atraumatic. cp 02:30 Eyes: Periorbital structures: appear normal, Conjunctiva: normal, no exudate, no injection, Sclera: no appreciated abnormality, Lids and lashes: appear normal, bilaterally. 02:30 ENT: External ear(s): are unremarkable, Nose: is normal, Mouth: Lips: moist, Oral mucosa: moist, Posterior pharynx: is normal, airway is patent, no erythema, no exudate, Tonsils: are normal in appearance. 02:30 Chest/axilla: Inspection: normal. 02:30 Cardiovascular: Rate: normal, Rhythm: regular, Edema: is not appreciated, JVD: is not appreciated. 02:30 Respiratory: the patient does not display signs of respiratory distress, Respirations: normal, no use of accessory muscles, no retractions, labored breathing, is not present, Breath sounds: are clear throughout, no decreased breath sounds, no stridor, no wheezing. 02:30 Abdomen/GI: Inspection: abdomen appears normal, Bowel sounds: active, all quadrants, Palpation: soft, in all quadrants, moderate abdominal tenderness, in the epigastric area, right upper quadrant and left upper quadrant, rebound tenderness, is not appreciated, involuntary guarding, is not appreciated. 02:30 Back: pain, is absent, ROM is normal. 02:30 Neuro: Orientation: to person, place \T\ time. Mentation: is normal, Motor: moves all fours, strength is normal, Sensation: is normal. Vital Signs: 01:29 BP 113 / 79; Pulse 80; Resp 18; Temp 98.2(TE); Pulse Ox 100% on R/A; Weight 68.04 kg kl (R); Height 5 ft. 4 in. (162.56 cm); Pain 8/10; 03:00 BP 101 / 72; Pulse 75; Resp 16; Pulse Ox 99% on R/A; jb4 01:29 Body Mass Index 25.75 (68.04 kg, 162.56 cm) kl MDM: 01:33 Patient medically screened. efraín 12/03 02:16 Order name: CBC with Diff cp 12/03 02:16 Order name: CMP cp 12/03 02:16 Order name: Lipase cp 12/03 02:16 Order name: Urine Microscopic Only cp 12/03 02:16 Order name: Troponin High Sensitivity cp 12/03 02:16 Order name: COVID-19/FLU A+B cp 12/03 02:16 Order name: Strep cp 12/03 03:01 Order name: CBC with Automated Diff; Complete Time: 03:17 EDMS 12/03 03:17 Interpretation: Normal except: WBC 18.00; GINGER% 77.9; LYM% 14.9; NEUT A 14.0. cp 12/03 03:10 Order name: Comprehensive Metabolic Panel; Complete Time: 03:17 EDMS 12/03 03:10 Order name: Troponin High Sensitivity; Complete Time: 03:17 EDMS 12/03 03:10 Order name: Lipase; Complete Time: 03:17 EDMS 12/03 03:28 Order name: COVID-19/FLU A+B; Complete Time: 04:09 EDMS 12/03 04:13 Order name: Urine Dipstick-Ancillary; Complete Time: 05:33 EDMS 12/03 04:16 Order name: Group A Streptococcus Rapid Sc; Complete Time: 05:33 EDMS 12/03 02:16 Order name: CT Abd/Pelvis - IV Contrast Only cp 12/03 02:16 Order name: IV Saline Lock; Complete Time: 02:32 cp 12/03 02:16 Order name: Labs collected and sent; Complete Time: 02:32 cp 12/03 02:16 Order name: Urine Dipstick-Ancillary (obtain specimen); Complete Time: 04:35 cp 12/03 02:16 Order name: Urine Test (obtain specimen); Complete Time: 04:35 cp 12/03 02:16 Order name: XRAY Chest (1 view) cp 12/03 04:29 Order name: Urine Microscopic Only; Complete Time: 05:33 EDMS 12/03 04:35 Order name: Urine --Ancillary (enter results) mw2 12/03 04:54 Order name: Urine --Ancillary; Complete Time: 05:33 EDMS Administered Medications: 02:49 Drug: NS 0.9% 1000 ml Route: IV; Rate: 1 bolus; Site: right antecubital; jb4 04:00 Follow up: Response: No adverse reaction; IV Status: Completed infusion; IV Intake: jb4 1000ml 02:49 Drug: Reglan (metoCLOPramide) 10 mg Route: IVP; Site: right antecubital; jb4 03:20 Follow up: Response: No adverse reaction jb4 02:49 Drug: morphine 2 mg Route: IVP; Infused Over: 4 mins; Site: right antecubital; jb4 03:20 Follow up: Response: No adverse reaction; Marked relief of symptoms jb4 02:49 Drug: ProTONIX (pantoprazole) 40 mg Route: IVP; Site: right antecubital; jb4 03:20 Follow up: Response: No adverse reaction; Marked relief of symptoms jb4 Disposition Summary: 12/03/22 05:43 Discharge Ordered Location: Home [facility] Problem: new efraín Symptoms: have improved efraín Condition: Stable efraín Diagnosis - Bipolar disorder, unspecified efraín - Abdominal pain, Generalized efraín - Acute bronchitis, unspecified efraín - Tobacco abuse counseling efraín - Tobacco use efraín - Elevated white blood cell count efraín Followup: efraín - With: Private Physician - When: 2 - 3 days - Reason: Recheck today's complaints, Continuance of care, Re-evaluation by your physician Discharge Instructions: - Discharge Summary Sheet efraín - Abdominal Pain, Adult efraín - Abdominal Pain, Adult, [id number] efraín - Acute Bronchitis, Adult efraín - Steps to Quit Smoking efraín - Health Risks of Smoking efraín Forms: - Medication Reconciliation Form [facility] - Thank You Letter [facility] - Antibiotic Education [facility] - Prescription Opioid Use [facility] Prescriptions: - Pepcid 20 mg Oral Tablet - take 1 tablet by ORAL route every 12 hours for 21 days; 42 tablet; Refills: 0, [facility] Product Selection Permitted - Zofran 4 mg Oral Tablet - take 1 tablet by ORAL route every 12 hours As needed; 20 tablet; Refills: 0, [facility] Product Selection Permitted Signatures: Dispatcher [employer] Nayla Singh, RN RN Greg Henry MD MD cha Page, Corey, PA PA cp Bryson, James, RN RN jb4
--- NOTE | 2022-12-03 05:43 | ER ---
Nurse's Notes [facility] Name: Anne Marie Cruz Age: 42 yrs Sex: Female : 1980 Arrival Date: 12/03/2022 Time: 01:12 Bed 14 Private MD: Diagnosis: Bipolar disorder, unspecified;Abdominal pain, Generalized;Acute bronchitis, unspecified;Tobacco abuse counseling;Tobacco use;Elevated white blood cell count Presentation: 12/03 01:29 Chief complaint: Patient states: cough x 1 month vomited x 3 tonight headache x 1 month kl also reports left jaw pain just started. Coronavirus screen: Vaccine status: Patient reports receiving the 2nd dose of the covid vaccine. Ebola Screen: Patient negative for fever greater than or equal to 101.5 degrees Fahrenheit, and additional compatible Ebola Virus Disease symptoms. Initial Sepsis Screen: Does the patient meet any 2 criteria? No. Patient's initial sepsis screen is negative. Does the patient have a suspected source of infection? No. Patient's initial sepsis screen is negative. Risk Assessment: Do you want to hurt yourself or someone else? Patient reports no desire to harm self or others. 01:29 Method Of Arrival: Ambulatory kl 01:29 Acuity: PARISH 3 kl Triage Assessment: 01:32 General: Appears in no apparent distress. comfortable, Behavior is calm, cooperative. kl Pain: Complains of pain in top of head Pain currently is 9 out of 10 on a pain scale. 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 Historical: - Allergies: 01:32 No Known Allergies; kl - Home Meds: 01:31 Adderall XR Oral [Active]; Omeprazole Oral [Active]; Pepcid AC Oral [Active]; Protonix kl Oral [Active]; - PMHx: 01:31 Anxiety; Bipolar disorder; Chronic pain; kl - PSHx: 01:31 hernia repair; kl - Immunization history:: Adult Immunizations up to date. - Social history:: Smoking status: Patient reports the use of cigarette tobacco products, smokes one pack cigarettes per day. Screenin:41 [facility] ED Fall Risk Assessment (Adult) History of falling in the last 3 months, jb4 including since admission No falls in past 3 months (0 pts) Confusion or Disorientation No (0 pts) Score/Fall Risk Level 0 - 2 = Low Risk Oriented to surroundings, Maintained a safe environment. Abuse screen: Denies threats or abuse. Nutritional screening: No deficits noted. Tuberculosis screening: No symptoms or risk factors identified. Assessment: 01:45 General: Appears in no apparent distress. comfortable, Behavior is calm, cooperative, jb4 appropriate for age. Pain: Complains of pain in abdomen Pain does not radiate. Pain currently is 8 out of 10 on a pain scale. Neuro: Level of Consciousness is awake, alert, obeys commands, Oriented to person, place, time, situation. Cardiovascular: Patient's skin is warm and dry. Respiratory: Airway is patent Respiratory effort is even, unlabored, Respiratory pattern is regular, symmetrical. GI: Abdomen is flat. : No signs and/or symptoms were reported regarding the genitourinary system. EENT: No signs and/or symptoms were reported regarding the EENT system. Derm: Skin is intact, Skin is pink, warm \T\ dry. Musculoskeletal: Circulation, motion, and sensation intact. Range of motion: intact in all extremities. 03:00 Reassessment: Patient appears in no apparent distress at this time. Patient and/or jb4 family updated on plan of care and expected duration. Pain level reassessed. Patient is alert, oriented x 3, equal unlabored respirations, skin warm/dry/pink. Pt removed monitoring equipment. 04:00 Reassessment: Pt resting in bed with eyes closed, respirations are even and unlabored jb4 with no s/s of pain or distress noted. 05:11 Reassessment: Patient appears in no apparent distress at this time. No changes from jb4 previously documented assessment. Patient and/or family updated on plan of care and expected duration. Pain level reassessed. Patient is alert, oriented x 3, equal unlabored respirations, skin warm/dry/pink. 05:41 Reassessment: Patient appears in no apparent distress at this time. Patient and/or jb4 family updated on plan of care and expected duration. Pain level reassessed. Patient is alert, oriented x 3, equal unlabored respirations, skin warm/dry/pink. Pt refusing further vitals. Vital Signs: 01:29 BP 113 / 79; Pulse 80; Resp 18; Temp 98.2(TE); Pulse Ox 100% on R/A; Weight 68.04 kg kl (R); Height 5 ft. 4 in. (162.56 cm); Pain 8/10; 03:00 BP 101 / 72; Pulse 75; Resp 16; Pulse Ox 99% on R/A; jb4 01:29 Body Mass Index 25.75 (68.04 kg, 162.56 cm) ED Course: 01:12 Patient arrived in ED. ag3 01:14 Greg Olguin PA is PHCP. jeovanny 01:14 Greg Barry MD is Attending Physician. 01:31 Triage completed. 02:18 Kel Sierra, RN is Primary Nurse. jb4 05:41 No provider procedures requiring assistance completed. IV discontinued, intact, jb4 bleeding controlled, No redness/swelling at site. Pressure dressing applied. 05:42 Patient has correct armband on for positive identification. Bed in low position. Call jb4 light in reach. Side rails up X 1. Administered Medications: 02:49 Drug: NS 0.9% 1000 ml Route: IV; Rate: 1 bolus; Site: right antecubital; jb4 04:00 Follow up: Response: No adverse reaction; IV Status: Completed infusion; IV Intake: jb4 1000ml 02:49 Drug: Reglan (metoCLOPramide) 10 mg Route: IVP; Site: right antecubital; jb4 03:20 Follow up: Response: No adverse reaction jb4 02:49 Drug: morphine 2 mg Route: IVP; Infused Over: 4 mins; Site: right antecubital; jb4 03:20 Follow up: Response: No adverse reaction; Marked relief of symptoms jb4 02:49 Drug: ProTONIX (pantoprazole) 40 mg Route: IVP; Site: right antecubital; jb4 03:20 Follow up: Response: No adverse reaction; Marked relief of symptoms jb4 Intake: 04:00 IV: 1000ml; Total: 1000ml. jb4 Outcome: 05:43 Discharge ordered by . efraín 05:46 Discharged to home ambulatory. jb4 05:46 Condition: stable 05:46 Discharge instructions given to Pt left prior to receiving dispo packet. 05:47 Patient left the ED. jb4 Signatures: Nayla Moreno RN RN kl Anderson, Corey, MD MD cha Page, Corey, PA PA cp Bryson, James, RN RN jb4 Wen Raymundo ag3 Corrections: (The following items were deleted from the chart) 05:11 03:00 Reassessment: Patient appears in no apparent distress at this time. Patient jb4 and/or family updated on plan of care and expected duration. Pain level reassessed. Patient is alert, oriented x 3, equal unlabored respirations, skin warm/dry/pink. Pt removed monitoring equipment. jb4 05:12 03:21 BP 101 / 72; Pulse 75bpm; Resp 16bpm; Pulse Ox 99% RA; jb4 jb4
[2022-12-03 05:57] VITALS: TEMP 98.2
[2022-12-03 05:58] VITALS: BP 101/72; O2SAT 99
--- NOTE | 2022-12-03 18:36 | RAD REPORT ---
EXAM DESCRIPTION: RAD - Chest Single View - 12/03/2022 4:57 am CLINICAL HISTORY: The patient is 42 years old and is Female; COUGH [facility] MAIN TECHNIQUE: Frontal view of the chest. COMPARISON: No relevant prior studies available. FINDINGS: LUNGS: Unremarkable. No consolidation. PLEURAL SPACE: No pleural effusion. No pneumothorax. HEART: See below. MEDIASTINUM: Prominence of the cardiomediastinal silhouette, likely exaggerated secondary to facundo ble technique, positioning, and patient body habitus. BONES/JOINTS: Unremarkable. IMPRESSION: No acute findings in the chest. Electronically signed by: Jake Barnes MD 12/03/2022 5:38 AM SENIOR FINANCIAL ACCOUNTANT Due to temporary technical issues with the PACS/Fluency reporting system, reports are being signed by the in house radiologists without review as a courtesy to insure prompt reporting. The interpreting radiologist is fully responsible for the content of the report.
--- NOTE | 2022-12-03 18:48 | RAD REPORT ---
EXAM DESCRIPTION: CT - Abdomen Pelvis W Contrast - 12/03/2022 6:44 am CLINICAL HISTORY: The patient is 42 years old and is Female; ABD PAIN [facility] MAIN TECHNIQUE: Axial computed tomography images of the abdomen and pelvis with intravenous contrast. S agittal and coronal reformatted images were created and reviewed. This CT exam was performed using one or more of the following dose reduction techniques: automated exposure control, adjustment of t he mA and/or kV according to patient size, and/or use of iterative reconstruction technique. COMPARISON: 07/22/2022 CT abdomen pelvis with contrast FINDINGS: LUNG BASES: Unremarkable. No mass. No consolidation. MEDIASTINUM: Small hiatal hernia. ABDOMEN: LIVER: Indeterminate, single too small to characterize low-attenuation focus within the tip of the right hepatic lobe. No dedicated imaging follow-up recommended for this particular finding. GALLBLADDER AND BILE DUCTS: Unremarkable. No calcified stones. No ductal dilation. PANCREAS: Unremarkable. No mass. No ductal dilation. SPLEEN: Unremarkable. No splenomegaly. ADRENALS: Unremarkable. No mass. KIDNEYS AND URETERS: Unremarkable. No solid mass. No hydronephrosis. STOMACH AND BOWEL: Unremarkable. No obstruction. No mucosal thickening. PELVIS: APPENDIX: No findings to suggest acute appendicitis. BLADDER: Unremarkable. No mass. REPRODUCTIVE: Unremarkable as visualized. ABDOMEN and PELVIS: INTRAPERITONEAL SPACE: Unremarkable. No free air. No significant fluid collection. BONES/JOINTS: Unremarkable. No acute fracture or significant subluxation. SOFT TISSUES: Partially visualized left breast prosthesis. Redemonstrated calcifications in the subcutaneous lower flanks bilaterally, not significantl y changed from prior exam and favoring a chronic or remote traumatic or inflammatory process. VASCULATURE: Unremarkable. No abdominal aortic aneurysm. LYMPH NODES: Unremarkable. No enlarged lymph nodes. IMPRESSION: No acute findings in the abdomen or pelvis. Electronically signed by: Jake Barnes MD 12/03/2022 4:54 AM LOG BUYER Due to temporary technical issues with the PACS/Fluency reporting system, reports are being signed by the in house radiologists without review as a courtesy to insure prompt reporting. The interpreting radiologist is fully responsible for the content of the report.
== END 2022-12-03 05:47 | disposition home or self-care (01) ==
LOC: ER 01:09
DX: R10.84 Generalized abdominal pain (principal); J20.9 Acute bronchitis, unspecified; D72.829 Elevated white blood cell count, unspecified; F31.9 Bipolar disorder, unspecified; Z72.0 Tobacco use; Z71.6 Tobacco abuse counseling; Z20.822 Contact with and (suspected) exposure to COVID-19
CPT/HCPCS: 87070; 85025; 36415; 81025; 87081; 84484; 83690; 80053; 0240U; 74177; 71045; Q9967; J2765; C9113; J2270; J7030; 81003; 81015

== ENCOUNTER 2023-06-03 07:32 | Emergency (ER) | payer OTHER ==
--- OUTSIDE RECORDS SUMMARY | 2023-06-03 07:40 | XMS REPORT | Continuity of Care Document ---
:1980 Author Organization [facility] t Address [address] [facility]. [address] [place] [address] Care Team Providers Name Role Phone Otto Torres Primary Care Physician [phone] LAURA BELTRAN Attending Clinician Unavailable Feroz Barakat MD Attending Clinician FEROZ BARAKAT Attending Clinician Unavailable Laura Beltran MD Attending Clinician YESSENIA CALL Attending Clinician Unavailable Nurse, [facility] Attending Clinician Unavailable Unknown, Attending Attending Clinician Unavailable Yessenia Cruz Attending Clinician UNKNOWN, ATTENDING Attending Clinician Unavailable Vivienne Campuzano Attending Clinician VIVIENNE HOLT Attending Clinician Unavailable Provider, [facility] Attending Clinician Unavailable FLOR INFANTE Attending Clinician Unavailable Flor Infante MD Attending Clinician Doctor Unassigned, Ackley Attending Clinician Unavailable Trena Fairbanks Attending Clinician STU BORGES Attending Clinician Unavailable TRENA RUSSELL Attending Clinician Unavailable VAUGHN CHOUDHURY Attending Clinician Unavailable Vaughn Iqbal Attending Clinician ARNEL ALARCON Attending Clinician Unavailable MILA ROLDAN Attending Clinician Unavailable Jamar VALET PARKER, Mila Attending Clinician MUNDO SOMERS Attending Clinician Unavailable Yovany VALET PARKER, Mundo Attending Clinician Lora Gould RN Attending Clinician Unavailable Marc Khoury MD Attending Clinician Marilyn ANGELP, Nayla Larios Attending Clinician JORDAN HALEY Attending Clinician Unavailable Jhoana Townsend Attending Clinician JHOANA SAINZ Attending Clinician Unavailable Pob, [facility] Attending Clinician Unavailable Cristal Cochran MD Attending Clinician [phone] CRISTAL COCHRAN Attending Clinician Unavailable KELSI CORBETT Attending Clinician Unavailable Kelsi Corbett DO Attending Clinician JHOANA SAINZ Admitting Clinician Unavailable Payers Payer Name Policy Type Policy Number Effective Date Expiration Date [facility] [id number] 2017 [facility] MEDICAID 00:00:00 [facility] [id number] CUSTODIAL 00:00:00 MEDICAID [facility] [id number] 2017 00:00:00 Problems Condition Condition Condition Status Onset Resolution Last Treating Co mments Source Name Details Category Date Date Treatment Clinician Date Cellulitis Cellulitis Disease Active U nivers of left of left 2 ity of lower lower 00:00: [place] extremity extremity 00 [facility] Branch Abscess Abscess Disease Active Univers 2- ity of 00:00: [place] 00 [facility] Branch Skin sore Skin sore Disease Active Uni vers 2- ity of 00:00: 00 [facility] Branch Follow-up Follow-up Disease Active Uni vers exam exam 2- ity of 00:00: [place] 00 [facility] Branch Bipolar 1 Bipolar 1 Disease Active Uni vers disorder, disorder, 9-29 ity of manic, manic, 00:00: [place] mild mild 00 Medical Branch Attention Attention Disease Active 2021-0 Uni vers deficit deficit 8-09 ity of disorder disorder 00:00: [place] (ADD) in (ADD) in 00 Medica l adult adult Branch Allergies, Adverse Reactions, Alerts Allergy Allergy Status Severity Reaction(s) Onset Inactive Treating Comm ents Source Name Type Date Date Clinician NO KNOWN Drug Active Univers ALLERGIE Class ity of S [facility] [place] [facility] Social History Social Habit Start Date Stop Date Quantity Comments Source Gender identity Universit y of [facility] [place] [facility] Sexual orientation Univer sity [facility] Alcohol intake 2023-02-15 2023-02-15 Ex-drinker University 00:00:00 00:00:00 (finding) [facility] [place] [facility] Exposure to 2023-01-28 2023-02-07 Not sure [facility] SARS-CoV-2 (event) 00:00:00 09:18:00 [facility] [place] [facility] Tobacco use and 2022-07-09 2022-07-09 Smokeless Universit y of exposure 00:00:00 00:00:00 tobacco non-user [facility] History of Social 2022-06-04 2022-06-04 Univers ity of function 00:00:00 00:00:00 [facility] [place] [facility] History of tobacco 2010-03-28 Cigarette Smoker University of use 00:00:00 [facility] [place] [facility] Sex [birth year] Universit y of 00:00:00 00:00:00 [facility] [place] [facility] Smoking Status Start Date Stop Date Source Ex-smoker 2022-07-09 00:00:00 2022-07-09 00:00:00 Universi ty [facility] Medications Ordered Filled Start Stop Current Ordering Indication Dosage Frequency Signature Comments Components Source Medication Medication Date Date Medication? Clinician (SIG) Name Name VENTOLIN Yes [id number] INHALE 2 U nivers HFA 90 7-22 PUFFS BY ity of mcg/actuati 00:00: MOUTH [place] on inhaler 00 EVERY 6 Medica l HOURS Branch NEEDED FOR WHEEZING VENTOLIN Yes [id number] INHALE 2 U nivers HFA 90 7-22 PUFFS BY ity of mcg/actuati 00:00: MOUTH [place] on inhaler 00 EVERY 6 Medica l HOURS Branch NEEDED FOR WHEEZING VENTOLIN Yes [id number] INHALE 2 U nivers HFA 90 7-22 PUFFS BY ity of mcg/actuati 00:00: MOUTH [place] on inhaler 00 EVERY 6 Medica l HOURS Branch NEEDED FOR WHEEZING dextroamphe 2023-0 Yes [id number] 30mg Take 1 Univers tamine-amph 7-17 tablet by ity of etamine 00:00: mouth in [place] (ADDERALL) 00 the Medical 30 mg morning Branch tablet and 1 tablet in the evening. dextroamphe 2023-0 Yes [id number] 30mg Take 1 Univers tamine-amph 7-17 tablet by ity of etamine 00:00: mouth in [place] (ADDERALL) 00 the Medical 30 mg morning Branch tablet and 1 tablet in the evening. dextroamphe 2023-0 Yes [id number] 30mg Take 1 Univers tamine-amph 7-17 tablet by ity of etamine 00:00: mouth in [place] (ADDERALL) 00 the Medical 30 mg morning Branch tablet and 1 tablet in the evening. dextroamphe 2023-0 Yes [id number] 30mg Take 1 Univers tamine-amph 7-17 tablet by ity of etamine 00:00: mouth in [place] (ADDERALL) 00 the Medical 30 mg morning Branch tablet and 1 tablet in the evening. VENTOLIN 2023-0 Yes [id number] INHALE 2 U nivers HFA 90 6-20 PUFFS BY ity of mcg/actuati 00:00: MOUTH [place] on inhaler 00 EVERY 6 Medica l HOURS Branch NEEDED FOR WHEEZING VENTOLIN 2023-0 Yes [id number] INHALE 2 U nivers HFA 90 6-20 PUFFS BY ity of mcg/actuati 00:00: MOUTH [place] on inhaler 00 EVERY 6 Medica l HOURS Branch NEEDED FOR WHEEZING VENTOLIN 2023-0 2023- No [id number] INHALE 2 Univers HFA 90 6-20 07-22 PUFFS BY ity of mcg/actuati 00:00: 00:00 M[place]TH [place] inhal[place] 00 :00 EVERY 6 Medica l HOURS Branch NEEDED FOR WHEEZING dextroamphe 2023-0 Yes [id number] 30mg Take 1 Univers tamine-amph 6-15 tablet by ity of etamine 00:00: mouth in [place] (ADDERALL) 00 the Medical 30 mg morning Branch tablet and 1 tablet in the evening. dextroamphe 2023-0 Yes [id number] 30mg Take 1 Univers tamine-amph 6-15 tablet by ity of etamine 00:00: mouth in [place] (ADDERALL) 00 the Medical 30 mg morning Branch tablet and 1 tablet in the evening. dextroamphe 2022-0 2022- No [id number] 30mg Take 1 Univers tamine-amph 6-15 07-17 tablet by it y of etamine 00:00: 00:00 mouth in [place] (ADDERALL) 00 :00 the Medical 30 mg morning Branch tablet and 1 tablet in the evening. dextroamphe 2022-0 Yes [id number] 30mg Take 1 Univers tamine-amph 5-22 tablet by ity of etamine 00:00: mouth in [place] (ADDERALL) 00 the Medical 30 mg morning Branch tablet and 1 tablet in the evening. dextroamphe 2022-0 Yes [id number] 30mg Take 1 Univers tamine-amph 5-22 tablet by ity of etamine 00:00: mouth in [place] (ADDERALL) 00 the Medical 30 mg morning Branch tablet and 1 tablet in the evening. dextroamphe 2022-0 2022- No [id number] 30mg Take 1 Univers tamine-amph 5-22 06-15 tablet by it y of etamine 00:00: 00:00 mouth in [place] (ADDERALL) 00 :00 the Medical 30 mg morning Branch tablet and 1 tablet in the evening. VENTOLIN 3-0 Yes [id number] INHALE 2 U nivers HFA 90 5-20 PUFFS BY ity of mcg/actuati 00:00: MOUTH [place] on inhaler 00 EVERY 6 Medica l HOURS Branch NEEDED FOR WHEEZING VENTOLIN 2023-0 Yes [id number] INHALE 2 U nivers HFA 90 5-20 PUFFS BY ity of mcg/actuati 00:00: MOUTH [place] on inhaler 00 EVERY 6 Medica l HOURS Branch NEEDED FOR WHEEZING VENTOLIN 2023-0 Yes [id number] INHALE 2 U nivers HFA 90 5-20 PUFFS BY ity of mcg/actuati 00:00: MOUTH [place] on inhaler 00 EVERY 6 Medica l HOURS Branch NEEDED FOR WHEEZING VENTOLIN 2023-0 3- No [id number] INHALE 2 Univers HFA 90 5-20 06-20 PUFFS BY ity of mcg/actuati 00:00: 00:00 M[place]TH [place] inhal[place] 00 :00 EVERY 6 Medica l HOURS Branch NEEDED FOR WHEEZING ketorolac 2022- No [id number] 30mg Un ninoska (TORADOL) 02-07 ity of injection 15:45: 14:58 [place] 30 mg 00 :00 Medical Branch ketorolac 2022- No [id number] 30mg 30 mg, Univers (TORADOL) 02-07 Intramuscu ity of injection 15:45: 14:58 [place], ONCE, [place] 30 mg 00 :00 1 dose, On Medical Fri Branch 02/07/23 at 1045, Routine promethazin 2022- No [id number] 5mL Take 5 mL Univers e-dextromet 02-07 by mouth 4 i ty of horphan 00:00: 04:59 (four) [place] 6.25-15 00 :00 times Medical mg/5 mL daily for Branch syrup 10 days. promethazin 2022- No [id number] 5mL Take 5 mL Univers e-dextromet 02-07 by mouth 4 i ty of horphan 00:00: 04:59 (four) [place] 6.25-15 00 :00 times Medical mg/5 mL daily for Branch syrup 10 days. oseltamivir 2022- No [id number] 75mg Take 1 Univers (TAMIFLU) 02-07 capsule by ity of 75 mg 00:00: 04:59 mouth in [place] capsule 00 :00 the Medical morning Branch and 1 capsule in the evening. Do all this for 5 days. traZODone 2022- No 100mg Take 1 Univ ers 100 mg 4-17 -17 tablet by ity of tablet 10:06: 00:00 mouth at [place] 00 :00 bedtime. Medical Branch traZODone 2022- No 100mg Take 1 Univ ers 100 mg 4-17 -17 tablet by ity of tablet 10:06: 00:00 mouth at [place] 00 :00 bedtime. Medical Branch dextroamphe Yes [id number] 30mg Take 1 Univers tamine-amph -17 tablet by ity of etamine 00:00: mouth in [place] (ADDERALL) 00 the Medical 30 mg morning Branch tablet and 1 tablet in the evening. dextroamphe 2023-0 Yes [id number] 30mg Take 1 Univers tamine-amph 4-17 tablet by ity of etamine 00:00: mouth in [place] (ADDERALL) 00 the Medical 30 mg morning Branch tablet and 1 tablet in the evening. dextroamphe 2023-0 Yes [id number] 30mg Take 1 Univers tamine-amph 4-17 tablet by ity of etamine 00:00: mouth in [place] (ADDERALL) 00 the Medical 30 mg morning Branch tablet and 1 tablet in the evening. dextroamphe 2023-0 Yes [id number] 30mg Take 1 Univers tamine-amph 4-17 tablet by ity of etamine 00:00: mouth in [place] (ADDERALL) 00 the Medical 30 mg morning Branch tablet and 1 tablet in the evening. dextroamphe 2023-0 Yes [id number] 30mg Take 1 Univers tamine-amph 4-17 tablet by ity of etamine 00:00: mouth in [place] (ADDERALL) 00 the Medical 30 mg morning Branch tablet and 1 tablet in the evening. dextroamphe 2023-0 Yes [id number] 30mg Take 1 Univers tamine-amph 4-17 tablet by ity of etamine 00:00: mouth in [place] (ADDERALL) 00 the Medical 30 mg morning Branch tablet and 1 tablet in the evening. dextroamphe 2023-0 Yes [id number] 30mg Take 1 Univers tamine-amph 4-17 tablet by ity of etamine 00:00: mouth in [place] (ADDERALL) 00 the Medical 30 mg morning Branch tablet and 1 tablet in the evening. dextroamphe 2023-0 2023- No [id number] 30mg Take 1 Univers tamine-amph 4-17 05-22 tablet by it y of etamine 00:00: 00:00 mouth in [place] (ADDERALL) 00 :00 the Medical 30 mg morning Branch tablet and 1 tablet in the evening. dextroamphe 2023-0 Yes [id number] 30mg Take 1 Univers tamine-amph 3-20 tablet by ity of etamine 00:00: mouth in [place] (ADDERALL) 00 the Medical 30 mg morning Branch tablet and 1 tablet in the evening. dextroamphe 2023-0 Yes [id number] 30mg Take 1 Univers tamine-amph 3-20 tablet by ity of etamine 00:00: mouth in [place] (ADDERALL) 00 the Medical 30 mg morning Branch tablet and 1 tablet in the evening. dextroamphe 2023-0 2023- No [id number] 30mg Take 1 Univers tamine-amph 3-20 04-17 tablet by it y of etamine 00:00: 00:00 mouth in [place] (ADDERALL) 00 :00 the Medical 30 mg morning Branch tablet and 1 tablet in the evening. dextroamphe 2023-0 3- No [id number] 30mg Take 1 Univers tamine-amph 3-20 04-17 tablet by it y of etamine 00:00: 00:00 mouth in [place] (ADDERALL) 00 :00 the Medical 30 mg morning Branch tablet and 1 tablet in the evening. promethazin 3-0 3- No [id number] 5mL Take 5 mL Univers e-dextromet 3-18 -29 by mouth 4 i ty of horphan 00:00: 04:59 (four) [place] 6.25-15 00 :00 times Medical mg/5 mL daily for Branch syrup 10 days. promethazin 2023-0 3- No [id number] 5mL Take 5 mL Univers e-dextromet 3-18 -29 by mouth 4 i ty of horphan 00:00: 04:59 (four) [place] 6.25-15 00 :00 times Medical mg/5 mL daily for Branch syrup 10 days. traZODone 2023-0 Yes 100mg Take 1 Unive rs 100 mg 3-17 tablet by ity of tablet 17:01: mouth at [place] [id number] bedtime. Medical Branch traZODone 2023-0 Yes 100mg Take 1 Unive rs 100 mg 3-17 tablet by ity of tablet 17:01: mouth at [place] 55 bedtime. Medical Branch traZODone 2023-0 Yes 100mg Take 1 Unive rs 100 mg 3-17 tablet by ity of tablet 17:01: mouth at [place] [address] bedtime. Medical Branch traZODone 2023-0 Yes 100mg Take 1 Unive rs 100 mg 3-17 tablet by ity of tablet 17:01: mouth at [place] [address] bedtime. Medical Branch traZODone 2022-0 Yes 100mg Take 1 Unive rs 100 mg 3-17 tablet by ity of tablet 17:01: mouth at [place] [address] bedtime. Medical Branch albuterol 2022-0 Yes [id number] 2{puff} Inhale 2 Univers 90 3-17 Puffs ity of mcg/actuati 00:00: every 6 [place] Alberto as on inhaler 00 (six) Medical hours as Branch needed for Wheezing. triamcinolo 2022-0 Yes [id number] Apply to [facility] ne 3-17 area(s) 2 ity of acetonide 00:00: (two) [place] 0.1 % cream 00 times Medical daily. Branch albuterol 2022-0 Yes [id number] 2{puff} Inhale 2 Univers 90 3-17 Puffs ity of mcg/actuati 00:00: every 6 [place] as on inhaler 00 (six) Medical hours as Branch needed for Wheezing. triamcinolo 2022-0 Yes [id number] Apply to [facility] ne 3-17 area(s) 2 ity of acetonide 00:00: (two) [place] 0.1 % cream 00 times Medical daily. Branch albuterol 2022-0 Yes [id number] 2{puff} Inhale 2 Univers 90 3-17 Puffs ity of mcg/actuati 00:00: every 6 [place] as on inhaler 00 (six) Medical hours as Branch needed for Wheezing. triamcinolo 2022-0 Yes [id number] Apply to [facility] ne 3-17 area(s) 2 ity of acetonide 00:00: (two) [place] 0.1 % cream 00 times Medical daily. Branch albuterol 2022-0 Yes [id number] 2{puff} Inhale 2 Univers 90 3-17 Puffs ity of mcg/actuati 00:00: every 6 [place] as on inhaler 00 (six) Medical hours as Branch needed for Wheezing. triamcinolo 2022-0 Yes [id number] Apply to [facility] ne 3-17 area(s) 2 ity of acetonide 00:00: (two) [place] 0.1 % cream 00 times Medical daily. Branch albuterol 2022-0 Yes [id number] 2{puff} Inhale 2 Univers 90 3-17 Puffs ity of mcg/actuati 00:00: every 6 [place] as on inhaler 00 (six) Medical hours as Branch needed for Wheezing. triamcinolo 2022-0 Yes [id number] Apply to [facility] 3-17 area(s) 2 ity of acetonide 00:00: (two) [place] 0.1 % cream 00 times Medical daily. Branch albuterol 2022-0 Yes [id number] 2{puff} Inhale 2 Univers 90 3-17 Puffs ity of mcg/actuati 00:00: every 6 [place] as on inhaler 00 (six) Medical hours as Branch needed for Wheezing. triamcinolo 2022-0 Yes [id number] Apply to [facility] 3-17 area(s) 2 ity of acetonide 00:00: (two) [place] 0.1 % cream 00 times Medical daily. Branch albuterol 2022-0 Yes [id number] 2{puff} Inhale 2 Univers 90 3-17 Puffs ity of mcg/actuati 00:00: every 6 [place] as on inhaler 00 (six) Medical hours as Branch needed for Wheezing. triamcinolo 2022-0 Yes [id number] Apply to [facility] 3-17 area(s) 2 ity of acetonide 00:00: (two) [place] 0.1 % cream 00 times Medical daily. Branch albuterol 2022-0 Yes [id number] 2{puff} Inhale 2 Univers 90 3-17 Puffs ity of mcg/actuati 00:00: every 6 [place] as on inhaler 00 (six) Medical hours as Branch needed for Wheezing. triamcinolo 2022-0 Yes [id number] Apply to [facility] 3-17 area(s) 2 ity of acetonide 00:00: (two) [place] 0.1 % cream 00 times Medical daily. Branch albuterol 2022-0 Yes [id number] 2{puff} Inhale 2 Univers 90 3-17 Puffs ity of mcg/actuati 00:00: every 6 [place] as on inhaler 00 (six) Medical hours as Branch needed for Wheezing. triamcinolo 2022-0 Yes [id number] Apply to [facility] 3-17 area(s) 2 ity of acetonide 00:00: (two) [place] 0.1 % cream 00 times Medical daily. Branch albuterol 2022-0 Yes [id number] 2{puff} Inhale 2 Univers 90 3-17 Puffs ity of mcg/actuati 00:00: every 6 [place] as on inhaler 00 (six) Medical hours as Branch needed for Wheezing. triamcinolo 2022-0 Yes [id number] Apply to Univers ne 3-17 area(s) 2 ity of acetonide 00:00: (two) [place] 0.1 % cream 00 times Medical daily. Branch albuterol 2022-0 Yes [id number] 2{puff} Inhale 2 Univers 90 3-17 Puffs ity of mcg/actuati 00:00: every 6 [place] as on inhaler 00 (six) Medical hours as Branch needed for Wheezing. triamcinolo 2022-0 Yes [id number] Apply to Univers ne 3-17 area(s) 2 ity of acetonide 00:00: (two) [place] 0.1 % cream 00 times Medical daily. Branch albuterol 2022-0 Yes [id number] 2{puff} Inhale 2 Univers 90 3-17 Puffs ity of mcg/actuati 00:00: every 6 [place] as on inhaler 00 (six) Medical hours as Branch needed for Wheezing. triamcinolo 2022-0 Yes [id number] Apply to Univers ne 3-17 area(s) 2 ity of acetonide 00:00: (two) [place] 0.1 % cream 00 times Medical daily. Branch albuterol 2022-0 Yes [id number] 2{puff} Inhale 2 Univers 90 3-17 Puffs ity of mcg/actuati 00:00: every 6 [place] as on inhaler 00 (six) Medical hours as Branch needed for Wheezing. triamcinolo 2022-0 Yes [id number] Apply to Univers ne 3-17 area(s) 2 ity of acetonide 00:00: (two) [place] 0.1 % cream 00 times Medical daily. Branch albuterol 2022-0 Yes [id number] 2{puff} Inhale 2 Univers 90 3-17 Puffs ity of mcg/actuati 00:00: every 6 [place] Alber[place] as on inhaler 00 (six) Medical hours as Branch needed for Wheezing. triamcinolo 2022-0 Yes [id number] Apply to Univers ne 3-17 area(s) 2 ity of acetonide 00:00: (two) [place] 0.1 % cream 00 times Medical daily. Branch albuterol 2022-0 Yes [id number] 2{puff} Inhale 2 Univers 90 3-17 Puffs ity of mcg/actuati 00:00: every 6 [place] Alberto as on inhaler 00 (six) Medical hours as Branch needed for Wheezing. triamcinolo 2022-0 Yes [id number] Apply to Univers ne 3-17 area(s) 2 ity of acetonide 00:00: (two) [place] 0.1 % cream 00 times Medical daily. Branch benzonatate 2022-0 Yes [id number] 200mg Take 2 Univers 100 mg 3-17 capsules ity of capsule 00:00: by mouth [place] 00 every 8 Medical (eight) Branch hours as needed for Cough. albuterol 2022-0 Yes [id number] 2{puff} Inhale 2 Univers 90 3-17 Puffs ity of mcg/actuati 00:00: every 6 [place] Alber[place] as on inhaler 00 (six) Medical hours as Branch needed for Wheezing. triamcinolo 2022-0 Yes [id number] Apply to [facility] ne 3-17 area(s) 2 ity of acetonide 00:00: (two) [place] 0.1 % cream 00 times Medical daily. Branch benzonatate 2022-0 Yes [id number] 200mg Take 2 Univers 100 mg 3-17 capsules ity of capsule 00:00: by mouth [place] 00 every 8 Medical (eight) Branch hours as needed for Cough. albuterol 2022-0 Yes [id number] 2{puff} Inhale 2 Univers 90 3-17 Puffs ity of mcg/actuati 00:00: every 6 [place] Alber[place] as on inhaler 00 (six) Medical hours as Branch needed for Wheezing. triamcinolo 2022-0 [id number] Apply to [facility] ne 3-17 area(s) 2 ity of acetonide 00:00: (two) [place] 0.1 % cream 00 times Medical daily. Branch benzonatate 3-0 Yes [id number] 200mg Take 2 Univers 100 mg 3-17 capsules ity of capsule 00:00: by mouth [place] 00 every 8 Medical (eight) Branch hours as needed for Cough. albuterol 3-0 Yes [id number] 2{puff} Inhale 2 Univers 90 3-17 Puffs ity of mcg/actuati 00:00: every 6 [place] Alberto as on inhaler 00 (six) Medical hours as Branch needed for Wheezing. triamcinolo 2022-0 Yes [id number] Apply to [facility] ne 3-17 area(s) 2 ity of acetonide 00:00: (two) [place] 0.1 % cream 00 times Medical daily. Branch benzonatate 2022-0 Yes [id number] 200mg Take 2 Univers 100 mg 3-17 capsules ity of capsule 00:00: by mouth [place] 00 every 8 Medical (eight) Branch hours as needed for Cough. albuterol 2022-0 Yes [id number] 2{puff} Inhale 2 Univers 90 3-17 Puffs ity of mcg/actuati 00:00: every 6 [place] Alber[place] as on inhaler 00 (six) Medical hours as Branch needed for Wheezing. triamcinolo 2022-0 [id number] Apply to [facility] ne 3-17 area(s) 2 ity of acetonide 00:00: (two) [place] 0.1 % cream 00 times Medical daily. Branch benzonatate 2022-2022- No [id number] 200mg Take 2 Univers 100 mg 3-17 04-17 capsules ity of capsule 00:00: 00:00 by mouth [place] 00 :00 every 8 Medical (eight) Branch hours as needed for Cough. benzonatate 2022-0 3- No [id number] 200mg Take 2 Univers 100 mg 3-17 04-17 capsules ity of capsule 00:00: 00:00 by mouth [place] 00 :00 every 8 Medical (eight) Branch hours as needed for Cough. predniSONE 2022-0 2023- No [id number] 20mg Take 1 Univers 20 mg 3-17 03-23 tablet by ity of tablet 00:00: 04:59 mouth in [place] 00 :00 the Medical morning Branch for 5 days. predniSONE 202-0 2023- No [id number] 20mg Take 1 Univers 20 mg 3-17 03-23 tablet by ity of tablet 00:00: 04:59 mouth in [place] 00 :00 the Medical morning Branch for 5 days. predniSONE 2022-0 2023- No [id number] 20mg Take 1 Univers 20 mg 3-17 03-23 tablet by ity of tablet 00:00: 04:59 mouth in [place] 00 :00 the Medical morning Branch for 5 days. predniSONE 2022-0 202- No [id number] 20mg Take 1 Univers 20 mg 3-17 - tablet by ity of tablet 00:00: 04:59 mouth in [place] 00 :00 the Medical [facility] for 5 days. albuterol 0 Yes [id number] INHALE 2 Univers (VENTOLIN 3-14 PUFFS BY ity of HFA) 90 00:00: MOUTH [place] mcg/actuati 00 EVERY 6 Medic al on inhaler HOURS Branc h NEEDED FOR WHEEZING albuterol 2022-0 Yes [id number] INHALE 2 Univers (VENTOLIN 3-14 PUFFS BY ity of HFA) 90 00:00: MOUTH [place] mcg/actuati 00 EVERY 6 Medic al on inhaler HOURS Branc h NEEDED FOR WHEEZING albuterol 2022-0 Yes [id number] INHALE 2 Univers (VENTOLIN 3-14 PUFFS BY ity of HFA) 90 00:00: MOUTH [place] mcg/actuati 00 EVERY 6 Medic al on inhaler HOURS Branc h NEEDED FOR WHEEZING albuterol 2022-0 Yes [id number] INHALE 2 Univers (VENTOLIN 3-14 PUFFS BY ity of HFA) 90 00:00: MOUTH [place] mcg/actuati 00 EVERY 6 Medic al on inhaler HOURS Branc h NEEDED FOR WHEEZING albuterol 2022-0 Yes [id number] INHALE 2 Univers (VENTOLIN 3-14 PUFFS BY ity of HFA) 90 00:00: MOUTH [place] mcg/actuati 00 EVERY 6 Medic al on inhaler HOURS Branc h NEEDED FOR WHEEZING albuterol 2022-0 Yes [id number] INHALE 2 Univers (VENTOLIN 3-14 PUFFS BY ity of HFA) 90 00:00: MOUTH [place] mcg/actuati 00 EVERY 6 Medic al on inhaler HOURS Branc h NEEDED FOR WHEEZING albuterol 2022-0 Yes [id number] INHALE 2 Univers (VENTOLIN 3-14 PUFFS BY ity of HFA) 90 00:00: MOUTH [place] mcg/actuati 00 EVERY 6 Medic al on inhaler HOURS Branc h NEEDED FOR WHEEZING albuterol 2022-0 Yes [id number] INHALE 2 Univers (VENTOLIN 3-14 PUFFS BY ity of HFA) 90 00:00: MOUTH [place] mcg/actuati 00 EVERY 6 Medic al on inhaler HOURS Branc h NEEDED FOR WHEEZING albuterol 2023-0 Yes [id number] INHALE 2 Univers (VENTOLIN 3-14 PUFFS BY ity of HFA) 90 00:00: MOUTH [place] mcg/actuati 00 EVERY 6 Medic al on inhaler HOURS Branc h NEEDED FOR WHEEZING albuterol 2022-0 Yes [id number] INHALE 2 Univers (VENTOLIN 3-14 PUFFS BY ity of HFA) 90 00:00: MOUTH [place] mcg/actuati 00 EVERY 6 Medic al on inhaler HOURS Branc h NEEDED FOR WHEEZING albuterol 2022-0 Yes [id number] INHALE 2 Univers (VENTOLIN 3-14 PUFFS BY ity of HFA) 90 00:00: MOUTH [place] mcg/actuati 00 EVERY 6 Medic al on inhaler HOURS Branc h NEEDED FOR WHEEZING albuterol 0 Yes [id number] INHALE 2 Univers (VENTOLIN 3-14 PUFFS BY ity of HFA) 90 00:00: MOUTH [place] mcg/actuati 00 EVERY 6 Medic al on inhaler HOURS Branc h NEEDED FOR WHEEZING albuterol 0 Yes [id number] INHALE 2 Univers (VENTOLIN 3-14 PUFFS BY ity of HFA) 90 00:00: MOUTH [place] mcg/actuati 00 EVERY 6 Medic al on inhaler HOURS Branc h NEEDED FOR WHEEZING albuterol 0 Yes [id number] INHALE 2 [facility] (VENTOLIN 3-14 PUFFS BY ity of HFA) 90 00:00: MOUTH [place] mcg/actuati 00 EVERY 6 Medic al on inhaler HOURS Branc h NEEDED FOR WHEEZING albuterol 2022-0 2022- No [id number] INHALE 2 [facility] (VENTOLIN 3-14 05-20 PUFFS BY ity o f HFA) 90 00:00: 23:29 MOUTH [place] mcg/actuati 00 :11 EVERY 6 Medic al on inhaler HOURS Branc h NEEDED FOR WHEEZING dextroamphe 2022-0 Yes [id number] 30mg Take 1 [facility] tamine-amph 2-20 tablet by ity of etamine 00:00: mouth in [place] (ADDERALL) 00 the Medical 30 mg morning Branch tablet and 1 tablet in the evening. dextroamphe 2022-0 Yes [id number] 30mg Take 1 [facility] tamine-amph 2-20 tablet by ity of etamine 00:00: mouth in [place] (ADDERALL) 00 the Medical 30 mg morning Branch tablet and 1 tablet in the evening. dextroamphe 2023-0 Yes [id number] 30mg Take 1 [facility] tamine-amph 2-20 tablet by ity of etamine 00:00: mouth in [place] (ADDERALL) 00 the Medical 30 mg morning Branch tablet and 1 tablet in the evening. dextroamphe 2023-0 Yes [id number] 30mg Take 1 [facility] tamine-amph 2-20 tablet by ity of etamine 00:00: mouth in [place] (ADDERALL) 00 the Medical 30 mg morning Branch tablet and 1 tablet in the evening. dextroamphe 2023-0 Yes [id number] 30mg Take 1 [facility] tamine-amph 2-20 tablet by ity of etamine 00:00: mouth in [place] (ADDERALL) 00 the Medical 30 mg morning Branch tablet and 1 tablet in the evening. dextroamphe 3-0 Yes [id number] 30mg Take 1 [facility] tamine-amph 2-20 tablet by ity of etamine 00:00: mouth in [place] (ADDERALL) 00 the Medical 30 mg morning Branch tablet and 1 tablet in the evening. dextroamphe 3-0 Yes [id number] 30mg Take 1 [facility] tamine-amph 2-20 tablet by ity of etamine 00:00: mouth in [place] (ADDERALL) 00 the Medical 30 mg morning Branch tablet and 1 tablet in the evening. dextroamphe 2023-0 Yes [id number] 30mg Take 1 [facility] tamine-amph 2-20 tablet by ity of etamine 00:00: [facility] [place] [facility] 30 mg morning Branch tablet and 1 tablet in the evening. dextroamphe 2023-0 2023- No [id number] 30mg Take 1 [facility] tamine-amph 2-20 03-20 tablet by it y of etamine 00:00: 00:00 [facility] [place] [facility] Medical 30 mg morning Branch tablet and 1 tablet in the evening. azelastine 3-0 Yes [id number] 1{spray Use 1 [facility] 137 mcg 2-17 } [address] in ity of (0.1 %) 00:00: each [place] nasal spray 00 nostril in Me dical the Branch morning and [address] in [address] evening. Use in each nostril as directed azelastine 2023-0 Yes [id number] 1{spray Use 1 [facility] 137 mcg 2-17 } [address] in ity of (0.1 %) 00:00: each [place] nasal spray 00 nostril in Me dical the Branch morning and [address] in [address] evening. Use in each nostril as directed azelastine 2023-0 Yes [id number] 1{spray Use 1 [facility] 137 mcg 2-17 } [address] in ity of (0.1 %) 00:00: each [place] nasal spray 00 nostril in Me dical the Branch morning and [address] in the evening. Use in each nostril as directed azelastine 2023-0 Yes [id number] 1{spray Use 1 [facility] 137 mcg 2-17 } [address] in ity of (0.1 %) 00:00: each [place] nasal spray 00 nostril in Me dical the Branch morning and [address] in the evening. Use in each nostril as directed azelastine 2023-0 Yes [id number] 1{spray Use 1 [facility] 137 mcg 2-17 } [address] in ity of (0.1 %) 00:00: each [place] nasal spray 00 nostril in Me dical the Branch morning and [address] in the evening. Use in each nostril as directed azelastine 2023-0 Yes [id number] 1{spray Use 1 [facility] 137 mcg 2-17 } [address] in ity of (0.1 %) 00:00: each [place] nasal spray 00 nostril in N[place] dical the Branch morning and [address] in the evening. Use in each nostril as directed azelastine 2023-0 Yes [id number] 1{spray Use 1 [facility] 137 mcg 2-17 } [address] in ity of (0.1 %) 00:00: each [place] nasal spray 00 nostril in Me dical the Branch morning and [address] in the evening. Use in each nostril as directed azelastine 2023-0 Yes [id number] 1{spray Use 1 [facility] 137 mcg 2-17 } [address] in ity of (0.1 %) 00:00: each [place] nasal spray 00 nostril in Me dical the Branch morning and [address] in the evening. Use in each nostril as directed azelastine 3-0 Yes [id number] 1{spray Use 1 [facility] 137 mcg 2-17 } [address] in ity of (0.1 %) 00:00: each [place] nasal spray 00 nostril in N[place] dical the Branch morning and [address] in the evening. Use in each nostril as directed azelastine 3-0 Yes [id number] 1{spray Use 1 [facility] 137 mcg 2-17 } [address] in ity of (0.1 %) 00:00: each [place] nasal spray 00 nostril in [place] dical the Branch morning and [address] in the evening. Use in each nostril as directed azelastine 2023-0 Yes [id number] 1{spray Use 1 [facility] 137 mcg 2-17 } [address] in ity of (0.1 %) 00:00: each [place] nasal spray 00 nostril in N[place] dical the Branch morning and [address] in the evening. Use in each nostril as directed azelastine 2022-0 Yes [id number] 1{spray Use 1 [facility] 137 mcg 2-17 } [address] in ity of (0.1 %) 00:00: each [place] nasal spray 00 nostril in N[place] dical the Branch morning and [address] in the evening. Use in each nostril as directed azelastine 2022-0 Yes [id number] 1{spray Use 1 [facility] 137 mcg 2-17 } [address] in ity of (0.1 %) 00:00: each [place] nasal spray 00 nostril in N[place] dical the Branch morning and [address] in the evening. Use in each nostril as directed azelastine 2022-0 Yes [id number] 1{spray Use 1 [facility] 137 mcg 2-17 } [address] in ity of (0.1 %) 00:00: each [place] nasal spray 00 nostril in Nd dical the Branch morning and [address] in the evening. Use in each nostril as directed methylPREDN 2022-0 Yes [id number] Take by [facility] ISolone 2-17 mouth ity of (MEDROL, 00:00: SEE-INSTRU [place] as ADAM,) 4 mg 00 CTIONS. Medica l tablets follow Branch package directions azelastine 2022-0 Yes [id number] 1{spray Use 1 [facility] 137 mcg 2-17 } [address] in ity of (0.1 %) 00:00: each [place] nasal spray 00 nostril in Me dical the Branch morning and [address] in the evening. Use in each nostril as directed albuterol 2023-0 Yes [id number] 2{puff} Inhale 2 [facility] 90 2-17 Puffs ity of mcg/actuati 00:00: every 6 [place] Alberto as on inhaler 00 (six) Medical hours as Branch needed for Wheezing. benzonatate 2023-0 Yes [id number] 100mg Take 1 [facility] (TESSALON 2-17 capsule by ity of PERLES) 100 00:00: mouth [place] mg capsule 00 every 8 Medica l (eight) Branch hours as needed for Cough. methylPREDN 2023-0 Yes [id number] Take by [facility] ISolone 2-17 mouth ity of (MEDROL, 00:00: SEE-INSTRU [place] ADAM,) 4 mg 00 CTIONS. Medica l tablets follow Branch package directions azelastine 2023-0 Yes [id number] 1{spray Use 1 [facility] 137 mcg 2-17 } [address] in ity of (0.1 %) 00:00: each [place] nasal spray 00 nostril in N[place] dical the Branch morning and [address] in the evening. Use in each nostril as directed albuterol 3-0 Yes [id number] 2{puff} Inhale 2 [facility] 90 2-17 Puffs ity of mcg/actuati 00:00: every 6 [place] as on inhaler 00 (six) Medical hours as Branch needed for Wheezing. benzonatate 2023-0 Yes [id number] 100mg Take 1 [facility] (TESSALON 2-17 capsule by ity of PERLES) 100 00:00: mouth [place] mg capsule 00 every 8 Medica l (eight) Branch hours as needed for Cough. methylPREDN 2023-0 Yes [id number] Take by [facility] ISolone 2-17 mouth ity of (MEDROL, 00:00: SEE-INSTRU [place] ADAM,) 4 mg 00 CTIONS. Medica l tablets follow Branch package directions azelastine 2023-0 Yes [id number] 1{spray Use 1 [facility] 137 mcg 2-17 } [address] in ity of (0.1 %) 00:00: each [place] nasal spray 00 nostril in Me dical the Branch morning and [address] in the evening. Use in each nostril as directed albuterol 2022-0 Yes [id number] 2{puff} Inhale 2 [facility] 90 2-17 Puffs ity of mcg/actuati 00:00: every 6 [place] as on inhaler 00 (six) Medical hours as Branch needed for Wheezing. benzonatate 2022-0 Yes [id number] 100mg Take 1 [facility] (TESSALON 2-17 capsule by ity of PERLES) 100 00:00: mouth [place] mg capsule 00 every 8 Medica l (eight) Branch hours as needed for Cough. methylPREDN 202-0 Yes [id number] Take by [facility] ISolone 2-17 mouth ity of (MEDROL, 00:00: SEE-INSTRU [place] ADAM,) 4 mg 00 CTIONS. Medica l tablets follow Branch package directions azelastine 2022-0 Yes [id number] 1{spray Use 1 [facility] 137 mcg 2-17 } [address] in ity of (0.1 %) 00:00: each [place] nasal spray 00 nostril in Nd dical the Branch morning and [address] in the evening. Use in each nostril as directed benzonatate 2022-0 Yes [id number] 100mg Take 1 [facility] (TESSALON 2-17 capsule by ity of PERLES) 100 00:00: mouth [place] mg capsule 00 every 8 Medica l (eight) Branch hours as needed for Cough. methylPREDN 3-0 Yes [id number] Take by [facility] ISolone 2-17 mouth ity of (MEDROL, 00:00: SEE-INSTRU [place] as ADAM,) 4 mg 00 CTIONS. Medica l tablets follow Branch package directions azelastine 3-0 Yes [id number] 1{spray Use 1 [facility] 137 mcg 2-17 } [address] in ity of (0.1 %) 00:00: each [place] nasal spray 00 nostril in Me dical the Branch morning and [address] in the evening. Use in each nostril as directed benzonatate 3-0 Yes [id number] 100mg Take 1 [facility] (TESSALON 2-17 capsule by ity of PERLES) 100 00:00: mouth [place] mg capsule 00 every 8 Medica l (eight) Branch hours as needed for Cough. methylPREDN 2023-0 Yes [id number] Take by [facility] ISolone 2-17 mouth ity of (MEDROL, 00:00: SEE-INSTRU [place] ADAM,) 4 mg 00 CTIONS. Medica l tablets follow Branch package directions azelastine 2023-0 Yes [id number] 1{spray Use 1 [facility] 137 mcg 2-17 } [place] in ity of (0.1 %) 00:00: each [place] nasal spray 00 nostril in Nd dical the Branch morning and [address] in the evening. Use in each nostril as directed benzonatate 2023-0 Yes [id number] 100mg Take 1 [facility] (TESSALON 2-17 capsule by ity of PERLES) 100 00:00: mouth [place] mg capsule 00 every 8 Medica l (eight) Branch hours as needed for Cough. methylPREDN 2023-0 Yes [id number] Take by [facility] ISolone 2-17 mouth ity of (MEDROL, 00:00: SEE-INSTRU [place] as ADAM,) 4 mg 00 CTIONS. Medica l tablets follow Branch package directions azelastine 2023-0 Yes [id number] 1{spray Use 1 [facility] 137 mcg 2-17 } [address] in ity of (0.1 %) 00:00: each [place] nasal spray 00 nostril in Nd dical the Branch morning and [address] in the evening. Use in each nostril as directed benzonatate 2023-0 Yes [id number] 100mg Take 1 [facility] (TESSALON 2-17 capsule by ity of PERLES) 100 00:00: mouth [place] mg capsule 00 every 8 Medica l (eight) Branch hours as needed for Cough. methylPREDN 2023-0 Yes [id number] Take by [facility] ISolone 2-17 mouth ity of (MEDROL, 00:00: SEE-INSTRU [place] as ADAM,) 4 mg 00 CTIONS. Medica l tablets follow Branch package directions azelastine 2023-0 Yes [id number] 1{spray Use 1 [facility] 137 mcg 2-17 } [address] in ity of (0.1 %) 00:00: each [place] nasal spray 00 nostril in Nd dical the Branch morning and [address] in the evening. Use in each nostril as directed benzonatate 2023-0 Yes [id number] 100mg Take 1 [facility] (TESSALON 2-17 capsule by ity of PERLES) 100 00:00: mouth [place] mg capsule 00 every 8 Medica l (eight) Branch hours as needed for Cough. methylPREDN 2023-0 Yes [id number] Take by [facility] ISolone 2-17 mouth ity of (MEDROL, 00:00: SEE-INSTRU [place] as ADAM,) 4 mg 00 CTIONS. Medica l tablets follow Branch package directions azelastine 2023-0 Yes [id number] 1{spray Use 1 [facility] 137 mcg 2-17 } [address] in ity of (0.1 %) 00:00: each [place] nasal spray 00 nostril in Nd dical the Branch morning and [address] in the evening. Use in each nostril as directed benzonatate 2023-0 Yes [id number] 100mg Take 1 [facility] (TESSALON 2-17 capsule by ityvonne of PERLES) 100 00:00: mouth [place] mg capsule 00 every 8 Medica l (eight) Branch hours as needed for Cough. methylPREDN 2023-0 Yes [id number] Take by [facility] ISolone 2-17 mouth ity of (MEDROL, 00:00: SEE-INSTRU [place] as ADAM,) 4 mg 00 CTIONS. Medica l tablets follow Branch package directions azelastine 2023-0 Yes [id number] 1{spray Use 1 [facility] 137 mcg 2-17 } [address] in ity of (0.1 %) 00:00: each [place] [facility] [address] in the evening. Use in each nostril as directed benzonatate 2023-0 Yes [id number] 100mg Take 1 [facility] (TESSALON 2-17 capsule by ityvonne of ABNER) 100 00:00: mouth [place] mg capsule 00 every 8 Medica l (eight) Branch hours as needed for Cough. methylPREDN 2023-0 Yes [id number] Take by [facility] ISolone 2-17 mouth ity of (MEDROL, 00:00: SEE-INSTRU [place] as ADAM,) 4 mg 00 CTIONS. Medica l tablets follow Branch package directions azelastine 2023-0 Yes [id number] 1{spray Use 1 [facility] 137 mcg 2-17 } [address] in ity of (0.1 %) 00:00: each [place] nasal spray 00 nostril in Nd dical the Branch morning and [address] in the evening. Use in each nostril as directed benzonatate 2023-0 Yes [id number] 100mg Take 1 [facility] (TESSALON 2-17 capsule by ityvonne of [place]) 100 00:00: mouth [place] mg capsule 00 every 8 Medica l (eight) Branch hours as needed for Cough. azelastine 0 Yes [id number] 1{spray Use 1 [facility] 137 mcg 2-17 } [address] in ity of (0.1 %) 00:00: each [place] nasal spray 00 nostril in Nd dical the Branch morning and [address] in the evening. Use in each nostril as directed benzonatate 0 2022- No [id number] 100mg Take 1 [facility] (TESSALON 2-17 04-17 capsule by ity of [place]REW[place]) 100 00:00: 00:00 mouth [place] mg capsule 00 :00 every 8 Medica l (eight) Branch hours as needed for Cough. methylPREDN 2022-0 2022- No [id number] Take by [facility] ISolone 2-17 04-17 mouth ity of (MEDROL, 00:00: 00:00 SEE-INSTRU [place] ADAM,) 4 mg 00 :00 CTIONS. Medica l tablets follow Branch package directions benzonatate 2022-2022- No [id number] 100mg Take 1 [facility] (TESSALON 2-17 04-17 capsule by ityvonne of [place]) 100 00:00: 00:00 mouth [place] mg capsule 00 :00 every 8 Medica l (eight) Branch hours as needed for Cough. methylPREDN 2022-0 3- No [id number] Take by [facility] ISolone 2-17 04-17 mouth ity of (MEDROL, 00:00: 00:00 SEE-INSTRU [place] ADAM,) 4 mg 00 :00 CTIONS. Medica l tablets follow Branch package directions albuterol 2022-3- No [id number] 2{puff} Inhale 2 [facility] 90 2-17 03-14 Puffs ity of mcg/actuati 00:00: 00:00 every 6 [place] on inhaler 00 :00 (six) Medical hours as Branch needed for Wheezing. albuterol 2022-0 2023- No [id number] 2{puff} Inhale 2 [facility] 90 2-17 03-14 Puffs ity of mcg/actuati 00:00: 00:00 every 6 [place] on inhaler 00 :00 (six) Medical hours as Branch needed for Wheezing. triamcinolo 2023-0 Yes [id number] Apply to [facility] ne 2-01 area(s) 2 ity of acetonide 00:00: (two) [place] 0.1 % cream 00 times Medical daily. Branch triamcinolo 2023-0 Yes [id number] Apply to [facility] ne 2-01 area(s) 2 ity of acetonide 00:00: (two) [place] 0.1 % cream 00 times Medical daily. Branch triamcinolo 2023-0 Yes [id number] Apply to [facility] ne 2-01 area(s) 2 ity of acetonide 00:00: (two) [place] 0.1 % cream 00 times Medical daily. Branch triamcinolo 2023-0 Yes [id number] Apply to [facility] ne 2-01 area(s) 2 ity of acetonide 00:00: (two) [place] 0.1 % cream 00 times Medical daily. Branch triamcinolo 2023-0 Yes [id number] Apply to [facility] ne 2-01 area(s) 2 ity of acetonide 00:00: (two) [place] 0.1 % cream 00 times Medical daily. Branch triamcinolo 2023-0 Yes [id number] Apply to [facility] ne 2-01 area(s) 2 ity of acetonide 00:00: (two) [place] 0.1 % cream 00 times Medical daily. Branch triamcinolo 2023-0 Yes [id number] Apply to [facility] ne 2-01 area(s) 2 ity of acetonide 00:00: (two) [place] 0.1 % cream 00 times Medical daily. Branch triamcinolo 2023-0 Yes [id number] Apply to [facility] ne 2-01 area(s) 2 ity of acetonide 00:00: (two) [place] 0.1 % cream 00 times Medical daily. Branch triamcinolo 2023-0 Yes [id number] Apply to Univers ne 2-01 area(s) 2 ity of acetonide 00:00: (two) [place] 0.1 % cream 00 times Medical daily. Branch triamcinolo 2023-0 2023- No [id number] Apply to Univers ne 2-01 03-17 area(s) 2 ity of acetonide 00:00: 00:00 (two) [place] 0.1 % cream 00 :00 times Medical daily. Branch triamcinolo 2022-0 3- No [id number] Apply to [facility] 11-20 area(s) 2 ity of acetonide 00:00: 00:00 (two) [place] 0.1 % cream 00 :00 times Medical daily. Branch sulfamethox 2022-0 Yes Univer s azole-trime 11-19 ity of thoprim 00:00: [place] 800-160 mg 00 Medical per tablet Branch sulfamethox 2022-0 Yes Univer s azole-trime 11-19 ity of thoprim 00:00: [place] 800-160 mg 00 Medical per tablet Branch sulfamethox 2022-0 2022- No Unive rs azole-trime 11-19 ity of thoprim 00:00: 00:00 [place] 800-160 mg 00 :00 Medical per tablet Branch sulfamethox 2022-0 2022- No Unive rs azole-trime 11-19 ity of thoprim 00:00: 00:00 [place] 800-160 mg 00 :00 Medical per tablet Branch hydrOXYzine 2022-0 Yes TAKE 1-2 Un ninoska 25 mg 1-27 TABLET BY ity of tablet 00:00: MOUTH FOR [place] SLEEP Medical Branch hydrOXYzine 2022-0 Yes TAKE 1-2 Un ninoska 25 mg 1-27 TABLET BY ity of tablet 00:00: MOUTH FOR [place] SLEEP Medical Branch hydrOXYzine 2022-0 Yes TAKE 1-2 Un ninoska 25 mg 1-27 TABLET BY ity of tablet 00:00: MOUTH FOR [place] SLEEP Medical Branch hydrOXYzine 2022-0 Yes TAKE 1-2 Un ninoska 25 mg 1-27 TABLET BY ity of tablet 00:00: MOUTH FOR [place] SLEEP Medical Branch hydrOXYzine 2022-0 Yes TAKE 1-2 Un ninoska 25 mg 1-27 TABLET BY ity of tablet 00:00: MOUTH FOR [place] SLEEP Medical Branch hydrOXYzine 2022-0 Yes TAKE 1-2 Un ninoska 25 mg 1-27 TABLET BY ity of tablet 00:00: MOUTH FOR [place] SLEEP Medical Branch hydrOXYzine 2022-0 Yes TAKE 1-2 Un ninoska 25 mg 1-27 TABLET BY ity of tablet 00:00: MOUTH FOR SLEEP Medical Branch hydrOXYzine 0 Yes TAKE 1-2 Un ninoska 25 mg 1-27 TABLET BY ity of tablet 00:00: MOUTH FOR SLEEP Medical Branch hydrOXYzine 0 Yes TAKE 1-2 Un ninoska 25 mg 1-27 TABLET BY ity of tablet 00:00: MOUTH FOR SLEEP Medical Branch hydrOXYzine 0 Yes TAKE 1-2 Un ninoska 25 mg 1-27 TABLET BY ity of tablet 00:00: MOUTH FOR SLEEP Medical Branch hydrOXYzine 0 Yes TAKE 1-2 Un ninoska 25 mg 1-27 TABLET BY ity of tablet 00:00: MOUTH FOR SLEEP Medical Branch hydrOXYzine 0 Yes TAKE 1-2 Un ninoska 25 mg 1-27 TABLET BY ity of tablet 00:00: MOUTH FOR SLEEP Medical Branch hydrOXYzine 0 Yes TAKE 1-2 Un ninoska 25 mg 1-27 TABLET BY ity of tablet 00:00: MOUTH FOR SLEEP Medical Branch hydrOXYzine 0 Yes TAKE 1-2 Un ninoska 25 mg 1-27 TABLET BY ity of tablet 00:00: MOUTH FOR SLEEP Medical Branch hydrOXYzine 0 2022- No TAKE 1-2 U nivers 25 mg 1-27 04-17 TABLET BY ity of tablet 00:00: 00:00 MOUTH FOR 00 :00 SLEEP Medical Branch hydrOXYzine 0 2022- No TAKE 1-2 U nivers 25 mg 1-27 04-17 TABLET BY ity of tablet 00:00: 00:00 MOUTH FOR 00 :00 SLEEP Medical Branch mupirocin 2 2022-0 Yes [...] AFFECTED Branch AREA TWICE DAILY mupirocin 2 Yes APPLY Unive rs % ointment 1-26 SPARINGLY ity of 00:00: TOPICALLY [place] 00 TO THE Medical AFFECTED Branch AREA TWICE DAILY mupirocin 2 Yes APPLY Unive rs % ointment 1-26 SPARINGLY ity of 00:00: TOPICALLY [place] 00 TO THE Medical AFFECTED Branch AREA TWICE DAILY mupirocin 2 Yes APPLY Unive rs % ointment 1-26 SPARINGLY ity of 00:00: TOPICALLY [place] 00 TO THE Medical AFFECTED Branch AREA TWICE DAILY mupirocin 2 Yes APPLY Unive rs % ointment 1-26 SPARINGLY ity of 00:00: TOPICALLY [place] 00 TO THE Medical AFFECTED Branch AREA TWICE DAILY mupirocin 2 Yes APPLY Unive rs % ointment 1-26 SPARINGLY ity of 00:00: TOPICALLY [place] 00 TO THE Medical AFFECTED Branch AREA TWICE DAILY mupirocin 2 Yes APPLY Unive rs % ointment 1-26 SPARINGLY ity of 00:00: TOPICALLY [place] 00 TO THE Medical AFFECTED Branch AREA TWICE DAILY mupirocin 2 Yes APPLY Unive rs % ointment 1-26 SPARINGLY ity of 00:00: TOPICALLY [place] 00 TO THE Medical AFFECTED Branch AREA TWICE DAILY mupirocin 2 Yes APPLY Unive rs % ointment 1-26 SPARINGLY ity of 00:00: TOPICALLY [place] 00 TO THE Medical AFFECTED Branch AREA TWICE DAILY mupirocin 2 Yes APPLY Unive rs % ointment 1-26 SPARINGLY ity of 00:00: TOPICALLY [place] 00 TO THE Medical AFFECTED Branch AREA TWICE DAILY mupirocin 2 Yes APPLY Unive rs % ointment 1-26 SPARINGLY ity of 00:00: TOPICALLY [place] 00 TO THE Medical AFFECTED Branch AREA TWICE DAILY mupirocin 2 Yes APPLY Unive rs % ointment 1-26 SPARINGLY ity of 00:00: TOPICALLY [place] 00 TO THE Medical AFFECTED Branch AREA TWICE DAILY mupirocin 2 0 2022- No APPLY Univ ers % ointment 1-26 04-17 SPARINGLY ity of 00:00: 00:00 TOPICALLY [place] 00 :00 TO THE Medical AFFECTED Branch AREA TWICE DAILY mupirocin 2 2022-0 2022- No APPLY Univ ers % ointment 11-1417 SPARINGLY ity of 00:00: 00:00 TOPICALLY [place] 00 :00 TO THE Medical AFFECTED Branch AREA TWICE DAILY predniSONE 2022-0 Yes 20mg Take 20 mg U nivers 20 mg 1-25 by mouth ity of tablet 00:00: every 00 morning. Medical Branch SENNA 8.6 Yes TAKE 2-4 Univ ers mg tablet 1-25 TABLETS BY ity of 00:00: MOUTH [place] 00 DIRECTED Medical NEEDED. Branch DO NOT EXCEED 4 TABLETS IN 24 HOURS predniSONE 2022- Yes 20mg Take 20 mg U nivers 20 mg 1-25 by mouth ity of tablet 00:00: every 00 morning. Medical Branch SENNA 8.6 Yes TAKE 2-4 Univ ers mg tablet 1-25 TABLETS BY ity of 00:00: MOUTH [place] 00 DIRECTED Medical NEEDED. Branch DO NOT EXCEED 4 TABLETS IN 24 HOURS SENNA 8.6 Yes TAKE 2-4 Univ ers mg tablet 1-25 TABLETS BY ity of 00:00: MOUTH [place] 00 DIRECTED Medical NEEDED. Branch DO NOT EXCEED 4 TABLETS IN 24 HOURS SENNA 8.6 Yes TAKE 2-4 Univ ers mg tablet 1-25 TABLETS BY ity of 00:00: MOUTH [place] 00 DIRECTED Medical NEEDED. Branch DO NOT EXCEED 4 TABLETS IN 24 HOURS SENNA 8.6 Yes TAKE 2-4 Univ ers mg tablet 1-25 TABLETS BY ity of 00:00: MOUTH [place] 00 DIRECTED Medical NEEDED. Branch DO NOT EXCEED 4 TABLETS IN 24 HOURS SENNA 8.6 Yes TAKE 2-4 Univ ers mg tablet 1-25 TABLETS BY ity of 00:00: MOUTH [place] 00 DIRECTED Medical NEEDED. Branch DO NOT EXCEED 4 TABLETS IN 24 HOURS SENNA 8.6 2022-0 Yes TAKE 2-4 Univ ers mg tablet 1-25 TABLETS BY ity of 00:00: MOUTH [place] 00 DIRECTED Medical NEEDED. Branch DO NOT EXCEED 4 TABLETS IN 24 HOURS SENNA 8.6 Yes TAKE 2-4 Univ ers mg tablet 1-25 TABLETS BY ity of 00:00: MOUTH [place] 00 DIRECTED Medical NEEDED. Branch DO NOT EXCEED 4 TABLETS IN 24 HOURS SENNA 8.6 Yes TAKE 2-4 Univ ers mg tablet 1-25 TABLETS BY ity of 00:00: MOUTH [place] 00 DIRECTED Medical NEEDED. Branch DO NOT EXCEED 4 TABLETS IN 24 HOURS SENNA 8.6 0 Yes TAKE 2-4 Univ ers mg tablet 1-25 TABLETS BY ity of 00:00: MOUTH [place] 00 DIRECTED Medical NEEDED. Branch DO NOT EXCEED 4 TABLETS IN 24 HOURS SENNA 8.6 Yes TAKE 2-4 Univ ers mg tablet 1-25 TABLETS BY ity of 00:00: MOUTH [place] 00 DIRECTED Medical NEEDED. Branch DO NOT EXCEED 4 TABLETS IN 24 HOURS SENNA 8.6 Yes TAKE 2-4 Univ ers mg tablet 1-25 TABLETS BY ity of 00:00: MOUTH [place] 00 DIRECTED Medical NEEDED. Branch DO NOT EXCEED 4 TABLETS IN 24 HOURS SENNA 8.6 Yes TAKE 2-4 Univ ers mg tablet 1-25 TABLETS BY ity of 00:00: MOUTH [place] 00 DIRECTED Medical NEEDED. Branch DO NOT EXCEED 4 TABLETS IN 24 HOURS SENNA 8.6 Yes TAKE 2-4 Univ ers mg tablet 1-25 TABLETS BY ity of 00:00: MOUTH [place] 00 DIRECTED Medical NEEDED. Branch DO NOT EXCEED 4 TABLETS IN 24 HOURS SENNA 8.6 0 2022- No TAKE 2-4 Uni vers mg tablet 1-25 04-17 TABLETS BY ity of 00:00: 00:00 MOUTH [place] 00 :00 DIRECTED Medical NEEDED. Branch DO NOT EXCEED 4 TABLETS IN 24 HOURS SENNA 8.6 0 2022- No TAKE 2-4 Uni vers mg tablet 1-25 04-17 TABLETS BY ity of 00:00: 00:00 MOUTH [place] 00 :00 DIRECTED Medical NEEDED. Branch DO NOT EXCEED 4 TABLETS IN 24 HOURS predniSONE 2022-2022- No 20mg Take 20 mg [facility] 20 mg -25 12-06 by mouth ity of tablet 00:00: 00:00 every [place] 00 :00 morning. Medical Branch predniSONE 2022-2022- No 20mg Take 20 mg [facility] 20 mg -25 02-17 by mouth ity of tablet 00:00: 00:00 every [place] 00 :00 morning. Medical Branch omeprazole 2023-0 Yes TAKE 1 Unive rs 40 mg 1-23 CAPSULE BY ity of capsule 00:00: MOUTH IN [place] 00 THE Medical MORNING Branch omeprazole 2023-0 Yes TAKE 1 Unive rs 40 mg 1-23 CAPSULE BY ity of capsule 00:00: MOUTH IN [place] 00 THE Medical MORNING Branch omeprazole 2023-0 Yes TAKE 1 Unive rs 40 mg 1-23 CAPSULE BY ity of capsule 00:00: MOUTH IN [place] 00 THE Medical MORNING Branch omeprazole 2023-0 Yes TAKE 1 Unive rs 40 mg 1-23 CAPSULE BY ity of capsule 00:00: MOUTH IN [place] 00 THE Medical MORNING Branch omeprazole 2023-0 Yes TAKE 1 Unive rs 40 mg 1-23 CAPSULE BY ity of capsule 00:00: MOUTH IN [place] 00 THE Medical MORNING Branch omeprazole 2023-0 Yes TAKE 1 Unive rs 40 mg 1-23 CAPSULE BY ity of capsule 00:00: MOUTH IN [place] 00 THE Medical MORNING Branch omeprazole 2023-0 Yes TAKE 1 Unive rs 40 mg 1-23 CAPSULE BY ity of capsule 00:00: MOUTH IN [place] 00 THE Medical MORNING Branch omeprazole 2023-0 Yes TAKE 1 Unive rs 40 mg 1-23 CAPSULE BY ity of capsule 00:00: MOUTH IN [place] 00 THE Medical MORNING Branch omeprazole 2023-0 Yes TAKE 1 Unive rs 40 mg 1-23 CAPSULE BY ity of capsule 00:00: MOUTH IN [place] 00 THE Medical MORNING Branch omeprazole 2023-0 Yes TAKE 1 Unive rs 40 mg 1-23 CAPSULE BY ity of capsule 00:00: MOUTH IN [place] 00 THE Medical MORNING Branch omeprazole 2023-0 Yes TAKE 1 Unive rs 40 mg 1-23 CAPSULE BY ity of capsule 00:00: MOUTH IN [place] 00 THE Medical MORNING Branch omeprazole 2023-0 Yes TAKE 1 Unive rs 40 mg 1-23 CAPSULE BY ity of capsule 00:00: MOUTH IN [place] 00 THE Medical MORNING Branch omeprazole 2023-0 Yes TAKE 1 Unive rs 40 mg 1-23 CAPSULE BY ity of capsule 00:00: MOUTH IN [place] 00 THE Medical MORNING Branch omeprazole 2023-0 Yes TAKE 1 Unive rs 40 mg 1-23 CAPSULE BY ity of capsule 00:00: MOUTH IN [place] 00 THE Medical MORNING Branch omeprazole 2022-0 3- No TAKE 1 Univ ers 40 mg 11-11 CAPSULE BY ity of capsule 00:00: 00:00 MOUTH IN [place] 00 :00 THE Medical MORNING Branch omeprazole 2022-0 3- No TAKE 1 Univ ers 40 mg 11-11 CAPSULE BY ity of capsule 00:00: 00:00 MOUTH IN [place] 00 :00 THE Medical MORNING Branch FAMOTIDINE 3-0 No 11-05 00:00: 00 LAMOTRIGINE 3-0 No 1-12 00:00: 00 dextroamphe 3-0 Yes [id number] 30mg Take 1 [facility] tamine-amph 1-11 tablet by ity of etamine 00:00: mouth in [place] [facility] 00 the Medical 30 mg morning Branch tablet and 1 tablet in the evening. dextroamphe 3-0 Yes [id number] 30mg Take 1 [facility] tamine-amph 1-11 tablet by ity of etamine 00:00: mouth in [place] ([facility] 00 the Medical 30 mg morning Branch tablet and 1 tablet in the evening. dextroamphe 3-0 Yes [id number] 30mg Take 1 [facility] tamine-amph 1-11 tablet by ity of etamine 00:00: mouth in [place] ([facility] 00 the Medical 30 mg morning Branch tablet and 1 tablet in the evening. dextroamphe 3-0 Yes [id number] 30mg Take 1 [facility] tamine-amph 1-11 tablet by ity of etamine 00:00: mouth in [place] ([facility] 00 the Medical 30 mg morning Branch tablet and 1 tablet in the evening. dextroamphe 3-0 Yes [id number] 30mg Take 1 [facility] tamine-amph 1-11 tablet by ity of etamine 00:00: mouth in [place] ([facility]) 00 the Medical 30 mg morning Branch tablet and 1 tablet in the evening. dextroamphe 3-0 Yes [id number] 30mg Take 1 [facility] tamine-amph 1-11 tablet by ity of etamine 00:00: mouth in [place] ([facility] the Medical 30 mg morning Branch tablet and 1 tablet in the evening. dextroamphe 3-0 2023- No [id number] 30mg Take 1 [facility] tamine-amph 11 02-20 tablet by it y of etamine 00:00: 00:00 mouth in [place] ([facility]) 00 :00 the Medical 30 mg morning Branch tablet and 1 tablet in the evening. ACYCLOVIR 2021-1 No 2-29 00:00: 00 TAKE 1 2021-1 No 400 TABLET 2-29 EVERY 8 00:00: HOURS 00 DAILY. acyclovir 2021-1 Yes 400mg Take 400 Uni vers 400 mg 2-29 mg by ity of tablet 00:00: mouth 00 every 8 Medical (eight) Branch hours. acyclovir 2021-1 Yes 400mg Take 400 Uni vers 400 mg 2-29 mg by ity of tablet 00:00: mouth [place] 00 every 8 Medical (eight) Branch hours. acyclovir 2021-1 Yes 400mg Take 400 Uni vers 400 mg 2-29 mg by ity of tablet 00:00: mouth [place] 00 every 8 Medical (eight) Branch hours. acyclovir 2021-1 Yes 400mg Take 400 Uni vers 400 mg 2-29 mg by ity of tablet 00:00: mouth [place] 00 every 8 Medical (eight) Branch hours. acyclovir 2021-1 Yes 400mg Take 400 Uni vers 400 mg 2-29 mg by ity of tablet 00:00: mouth [place] 00 every 8 Medical (eight) Branch hours. acyclovir 2021-1 Yes 400mg Take 400 Uni vers 400 mg 2-29 mg by ity of tablet 00:00: mouth [place] 00 every 8 Medical (eight) Branch hours. acyclovir 2021-1 Yes 400mg Take 400 Uni vers 400 mg 2-29 mg by ity of tablet 00:00: mouth 00 every 8 Medical (eight) Branch hours. acyclovir 2021-1 Yes 400mg Take 400 Uni vers 400 mg 2-29 mg by ity of tablet 00:00: mouth [place] 00 every 8 Medical (eight) Branch hours. acyclovir 2021-1 Yes 400mg Take 400 Uni vers 400 mg 2-29 mg by ity of tablet 00:00: mouth [place] 00 every 8 Medical (eight) Branch hours. acyclovir 2021-1 Yes 400mg Take 1 Unive rs 400 mg 2-29 tablet by ity of tablet 00:00: mouth [place] 00 every 8 Medical (eight) Branch hours. acyclovir 2021-10 Yes 400mg Take 1 Unive rs 400 mg 2-29 tablet by ity of tablet 00:00: mouth [place] 00 every 8 Medical (eight) Branch hours. acyclovir 2021-10 Yes 400mg Take 1 Unive rs 400 mg 2-29 tablet by ity of tablet 00:00: mouth [place] 00 every 8 Medical (eight) Branch hours. acyclovir 2021-10 Yes 400mg Take 1 Unive rs 400 mg 2-29 tablet by ity of tablet 00:00: mouth [place] 00 every 8 Medical (eight) Branch hours. acyclovir 2021-10 Yes 400mg Take 1 Unive rs 400 mg 2-29 tablet by ity of tablet 00:00: [facility] 00 every 8 Medical (eight) Branch hours. acyclovir 2021-10- No 400mg Take 1 Univ ers 400 mg 2-29 04-17 tablet by ity of tablet 00:00: 00:00 [facility] 00 :00 every 8 Medical (eight) Branch hours. acyclovir 2021-10- No 400mg Take 1 Univ ers 400 mg 2-29 04-17 tablet by ity of tablet 00:00: 00:00 [facility] [place] 00 :00 every 8 Medical (eight) Branch hours. TAKE 1-2 2021-10 No 25 TABLET(S) 2-23 FOR SLEEP 00:00: 00 HYDROXYZ 2021-10 No HCL 2-23 00:00: 00 TAKE 1 2021- No 100 TABLET 2-23 DAILY. 00:00: 00 AMPHET/DEXT 2021-10 No R 30MG 2-22 Tablets 00:00: 00 AMPHET/DEXT 2021-10 No 30 R 30MG 2-22 00:00: 00 dextroamphe 2021-10 Yes [id number] 30mg Take 1 [facility] tamine-amph 2-22 tablet by ity of etamine 00:00: mouth in [place] ([facility]) 00 the Medical 30 mg morning Branch tablet and 1 tablet in the evening. dextroamphe 2021-2022- No [id number] 30mg Take 1 [facility] tamine-amph 2-22 01-11 tablet by it y of etamine 00:00: 00:00 mouth in [place] ([facility]) 00 :00 the Medical 30 mg morning Branch tablet and 1 tablet in the evening. FAMOTIDINE 2021-10 No 2-20 00:00: 00 OMEPRAZOLE 2021-10 No 2-20 00:00: 00 BUSPIRONE 2021- No 2-09 00:00: 00 TRAMADOL 2021-10 No HCL 2-08 00:00: 00 TAKE 2021-10 No 50 TABLET BY 2-08 MOUTH EVERY 00:00: 6 HOURS 00 NEEDED dextroamphe 2021-10 Yes [id number] 30mg Take 1 [facility] tamine-amph 2-07 tablet by ity of etamine 00:00: mouth in [place] ([facility]) 00 the Medical 30 mg morning Branch tablet and 1 tablet in the evening. dextroamphe 2021-10 Yes [id number] 30mg Take 1 [facility] tamine-amph 2-07 tablet by ity of etamine 00:00: mouth in [place] ([facility]) 00 the Medical 30 mg morning Branch tablet and 1 tablet in the evening. dextroamphe 2021-10 Yes [id number] 30mg Take 1 [facility] tamine-amph 2-07 tablet by ity of etamine 00:00: mouth in [place] ([facility]) 00 the Medical 30 mg morning Branch tablet and 1 tablet in the evening. dextroamphe 2021-10- No [id number] 30mg Take 1 [facility] tamine-amph 2-07 - tablet by it y of etamine 00:00: 00:00 mouth in [place] ([facility]) 00 :00 the Medical 30 mg morning Branch tablet and 1 tablet in the evening. TAKE 2021-10 No 100 TABLET 1-28 DAILY. 00:00: 00 TAKE 2021-10 No 5 TABLET BY 1-28 MOUTH TWICE 00:00: DAILY 00 TAKE 2021-10 No 100 TABLET AT -28 BEDTIME. 00:00: 00 TAKE 2021-10 No 100 TABLET BY 1-28 MOUTH DAILY 00:00: 00 PANTOPRAZOL 2021-10 No E -22 00:00: 00 TAKE 2021-10 No TABLET BY 1-16 MOUTH IN 00:00: THE MORNING 00 AND IN THE EVENING dextroamphe 2021-10 Yes [id number] 20mg Take 1 [facility] tamine-amph 1-16 tablet by ity of etamine 00:00: mouth in [place] ([facility]) 00 the Medical 20 mg morning Branch tablet and 1 tablet in the evening. dextroamphe 2021-10- No [id number] 20mg Take 1 [facility] tamine-amph 1-16 12-07 tablet by it y of etamine 00:00: 00:00 mouth in [place] ([facility]) 00 :00 the Medical 20 mg morning Branch tablet and 1 tablet in the evening. dextroamphe 2021-10- No [id number] 20mg Take 1 [facility] tamine-amph 1-16 12-07 tablet by it y of etamine 00:00: 00:00 mouth in [place] ([facility]) 00 :00 the Medical 20 mg morning Branch tablet and 1 tablet in the evening. TRAZODONE 2021-10 No 0-28 00:00: 00 TRAZODONE 2021-10 No 0-28 00:00: 00 dextroamphe 2021-10 Yes [id number] 20mg Take 1 [facility] tamine-amph 0-24 tablet by ity of etamine 00:00: mouth in [place] ([facility]) 00 the Medical 20 mg morning Branch tablet and 1 tablet in the evening. dextroamphe 2021-10- No [id number] 20mg Take 1 [facility] tamine-amph 0-24 11-16 tablet by it y of etamine 00:00: 00:00 mouth in [place] ([facility]) 00 :00 the Medical 20 mg morning Branch tablet and 1 tablet in the evening. diazePAM 2021-10- No 2mg 2 mg, Slow [facility] [place] (VALIUM) 0-20 10-20 IV Push, ity of injection 2 02:15: 02:20 ONCE, 1 [place] mg 00 :[place] dose, On Fri [place] 08/07/22 at 2115, STAT diazePAM 2021-10- No 2mg 2 mg, Slow [facility] [place] (VALIUM) 0-20 10-20 IV Push, ity of injection 2 01:45: 01:43 ONCE, 1 [place] 00 :00 dose, On Fri [place] 08/07/22 at 2045, STAT NaCl 0.9% 2021-10- No 1000mL at 999 Uni vers (NS) bolus 0-19 10-20 mL/hr, ity of infusion 22:00: 00:30 1,000 mL, Jorge Alberto as 1,000 mL 00 :00 IV Medical Infusion, Branch ONCE, 1 dose, On Fri08/07/22 at 1700, CAMILA diazePAM 2021-10- No 5mg 5 mg, Univers (VALIUM) 0-19 08-07 Oral, ity of tablet 5 mg 22:00: 21:48 ONCE, 1 [place] 00 :00 dose, On Medical Wed Branch 08/07/22 at 1700, CAMIL[place] AZITHROMYCI 0 No N TAB 250MG 07-10 00:00: 00 METRONIDAZO 2021-0 No L TAB 500MG 07-10 00:00: 00 traZODone 2021-0 Yes 100mg Take 100 Uni vers 100 mg 9-20 mg by ity of tablet 09:29: mouth at [address] Medical Branch traZODone 2021-0 Yes 100mg Take 100 Uni vers 100 mg 9-20 mg by [facility]y [facility] tablet 09:29: [address] [facility] traZODone 2021-0 Yes 100mg Take 100 Uni vers 100 mg 9-20 mg by ity of tablet 09:29: [address] Branch traZODone 2021-0 Yes 100mg Take 100 Uni vers 100 mg 9-20 mg by ity of tablet 09:29: [address] Branch traZODone 2021-0 Yes 100mg Take 100 Uni vers 100 mg 9-20 mg by ity of tablet 09:29: [address] Branch traZODone 2021-0 Yes 100mg Take 100 Uni vers 100 mg 9-20 mg by ity of tablet 09:29: [address] Branch traZODone 2021-0 Yes 100mg Take 100 Uni vers 100 mg 9-20 mg by ity of tablet 09:29: [address] Branch traZODone 2021-0 Yes 100mg Take 100 Uni vers 100 mg 9-20 mg by ity of tablet 09:29: [address] Branch traZODone 2021-0 Yes 100mg Take 100 Uni vers 100 mg 9-20 mg by ity of tablet 09:29: mouth at [place] 11 bedtime. Medical Branch traZODone 2022-0 Yes 100mg Take 100 Uni vers 100 mg 9-20 mg by ity of tablet 09:29: mouth at [place] [address] bedtime. Medical Branch traZODone 2022-0 Yes 100mg Take 100 Uni vers 100 mg 9-20 mg by ity of tablet 09:29: mouth at [place] [address] bedtime. Medical Branch traZODone 2022-0 Yes 100mg Take 100 Uni vers 100 mg 9-20 mg by ity of tablet 09:29: mouth at [place] [address] bedtime. Medical Branch traZODone 2022-0 Yes 100mg Take 100 Uni vers 100 mg 9-20 mg by ity of tablet 09:29: mouth at [place] [address] bedtime. Medical Branch traZODone 2022-0 Yes 100mg Take 100 Uni vers 100 mg 9-20 mg by ity of tablet 09:29: mouth at [place] [address] bedtime. Medical Branch traZODone 2022-0 Yes 100mg Take 100 Uni vers 100 mg 9-20 mg by ity of tablet 09:29: mouth at [place] [address] bedtime. Medical Branch traZODone 2022-0 Yes 100mg Take 100 Uni vers 100 mg 9-20 mg by ity of tablet 09:29: mouth at [place] [address] bedtime. Medical Branch traZODone 2022-0 Yes 100mg Take 100 Uni vers 100 mg 9-20 mg by ity of tablet 09:29: mouth at [place] [address] bedtime. Medical Branch traZODone 2022-0 Yes 100mg Take 100 Uni vers 100 mg 9-20 mg by ity of tablet 09:29: mouth at [place] [address] bedtime. Medical Branch traZODone 2022-0 Yes 100mg Take 100 Uni vers 100 mg 9-20 mg by ity of tablet 09:29: mouth at [place] [address] bedtime. Medical Branch traZODone 2022-0 Yes 100mg Take 100 Uni vers 100 mg 9-20 mg by ity of tablet 09:29: mouth at [place] [address] bedtime. Medical Branch traZODone 2022-0 Yes 100mg Take 100 Uni vers 100 mg 9-20 mg by ity of tablet 09:29: mouth at [place] [address] bedtime. Medical Branch traZODone 2022-0 Yes 100mg Take 100 Uni vers 100 mg 9-20 mg by ity of tablet 09:29: mouth at [place] 11 bedtime. Medical Branch traZODone Yes 100mg Take 100 Uni vers 100 mg 9-20 mg by ity of tablet 09:29: mouth at [place] 11 bedtime. Medical Branch clonazePAM 2021- No .5mg Take 0.5 Un [place] 0.5 mg 9-20 09-20 mg by ity of tablet 09:29: 00:00 mouth at [place] 09 :00 bedtime. Medical Branch clonazePAM 2021-2021- No .5mg Take 0.5 Un [place] 0.5 mg 9-20 09-20 mg by ity of tablet 09:29: 00:00 mouth at [place] 09 :00 bedtime. Medical Branch OXcarbazepi 2021- No 300mg Take 300 Univers ne 300 mg 9-20 09-20 mg by ity of tablet 09:28: 00:00 mouth at [place] 57 :00 bedtime. Medical Branch OXcarbazepi 2021- No 300mg Take 300 Univers ne 300 mg 9-20 09-20 mg by ity of tablet 09:28: 00:00 mouth at [place] 57 :00 bedtime. Medical Branch amoxicillin 2021- No 1{tbl} Take 1 U nivers -clavulanat 9-20 09-20 tablet by it y of e 09:28: 00:00 mouth 2 [place] ([facility]) 22 :00 (two) Medical 875-125 mg times Branch per tablet daily. amoxicillin 2021- No 1{tbl} Take 1 U nivers -clavulanat 9-20 09-20 tablet by it y of e 09:28: 00:00 mouth 2 [place] ([facility]) 22 :00 (two) Medical 875-125 mg times Branch per tablet daily. dextroamphe Yes [id number] 20mg Take 1 [facility] tamine-amph 9-20 tablet by ity of etamine 00:00: mouth in [place] ([facility]) 00 the Medical 20 mg morning Branch tablet and 1 tablet in the evening. dextroamphe 2021- Yes [id number] 20mg Take 1 [facility] tamine-amph 9-20 tablet by ity of etamine 00:00: mouth in [place] ([facility]) 00 the Medical 20 mg morning Branch tablet and 1 tablet in the evening. dextroamphe 2-0 Yes [id number] 20mg Take 1 [facility] tamine-amph 9-20 tablet by ity of etamine 00:00: mouth in [place] ([facility]) 00 the Medical 20 mg morning Branch tablet and 1 tablet in the evening. dextroamphe 2-0 Yes [id number] 20mg Take 1 [facility] tamine-amph 9-20 tablet by ity of etamine 00:00: mouth in [place] ([facility]) 00 the Medical 20 mg morning Branch tablet and 1 tablet in the evening. dextroamphe 2021-0 Yes [id number] 20mg Take 1 [facility] tamine-amph 9-20 tablet by ity of etamine 00:00: mouth in [place] ([facility]) 00 the Medical 20 mg morning Branch tablet and 1 tablet in the evening. dextroamphe 2021-0 Yes [id number] 20mg Take 1 [facility] tamine-amph 9-20 tablet by ity of etamine 00:00: mouth in [place] ([facility]) 00 the Medical 20 mg morning Branch tablet and 1 tablet in the evening. dextroamphe 2021-0 2- No [id number] 20mg Take 1 [facility] tamine-amph 9-20 10-24 tablet by it y of etamine 00:00: 00:00 mouth in [place] ([facility]) 00 :00 the Medical 20 mg morning Branch tablet and 1 tablet in the evening. dextroamphe 2021-0 2022- No [id number] 20mg Take 1 [facility] tamine-amph 9-20 09-20 tablet by it y of etamine 00:00: 00:00 mouth in [place] ([facility]) 00 :00 the Medical 20 mg morning Branch tablet and 1 tablet in the evening. TAKE 1 2021-0 No 10 TABLET BY 8-17 MOUTH ONCE 00:00: DAILY 00 METRONIDAZO 2-0 No 500 L TAB 500MG 8-17 00:00: 00 AZITHROMYCI 2-0 No 250 N TAB 250MG 8-17 00:00: 00 clonazePAM 2-0 Yes .5mg Take 0.5 Uni vers 0.5 mg 8-16 mg by ity of tablet 13:20: mouth at [place] 16 bedtime. Medical Branch clonazePAM 2022-0 Yes .5mg Take 0.5 Uni vers 0.5 mg 8-16 mg by ity of tablet 13:20: mouth at [place] 16 bedtime. Medical Branch traZODone 2021- No 50mg Take 50 mg U nivers 50 mg 8-16 08-16 by mouth ity of tablet 13:19: 00:00 at [place] 27 :00 bedtime. Medical Branch traZODone 2021- No 50mg Take 50 mg U nivers 50 mg 8-16 08-16 by mouth ity of tablet 13:19: 00:00 at [place] 27 :00 bedtime. Medical Branch lithium 2021- No 900mg Take 900 Univ ers carbonate 8-16 08-16 mg by ity of 300 mg 13:17: 00:00 mouth at [place] tablet 48 :00 bedtime. Medical Branch lithium 2021- No 900mg Take 900 Univ ers carbonate 8-16 08-16 mg by ity of 300 mg 13:17: 00:00 mouth at [place] tablet 48 :00 bedtime. Medical Branch dextroamphe Yes [id number] 20mg Take 1 [facility] tamine-amph 8-16 tablet by ity of etamine 00:00: mouth in [place] ([facility]) 00 the Medical 20 mg morning Branch tablet and 1 tablet in the evening. dextroamphe Yes [id number] 20mg Take 1 [facility] tamine-amph 8-16 tablet by ity of etamine 00:00: mouth in [place] ([facility]) 00 the Medical 20 mg morning Branch tablet and 1 tablet in the evening. dextroamphe 2021- No [id number] 20mg Take 1 [facility] tamine-amph 8-16 09-20 tablet by it y of etamine 00:00: 00:00 mouth in [place] ([facility]) 00 :00 the Medical 20 mg morning Branch tablet and 1 tablet in the evening. dextroamphe 2021- No [id number] 20mg Take 1 [facility] tamine-amph 8-16 09-20 tablet by it y of etamine 00:00: 00:00 mouth in [place] ([facility]) 00 :00 the Medical 20 mg morning Branch tablet and 1 tablet in the evening. TAKE 1 2022-0 No 20 TABLET BY 7-12 MOUTH TWICE 00:00: DAILY 00 &lt 2022-0 No 100 7-12 00:00: 00 benzonatate 2022-0 2022- No [id number] 100mg Take 1 [facility] 100 mg 7-10 08-16 capsule by ity of capsule 00:00: 00:00 mouth 3 [place] 00 :00 (three) Medical times Branch daily as needed for Cough. benzonatate 2022-0 2022- No [id number] 100mg Take 1 [facility] 100 mg 7-10 08-16 capsule by ity of capsule 00:00: 00:00 mouth 3 [place] 00 :00 (three) Medical times Branch daily as needed for Cough. lamoTRIgine 2022-0 Yes 50mg Take 50 mg [facility] 25 mg 6-30 by mouth ity of tablet 00:00: in the [place] 00 morning. Medical Branch lamoTRIgine 2022-0 Yes 50mg Take 50 mg [facility] 25 mg 6-30 by mouth ity of tablet 00:00: in the [place] 00 morning. Medical Branch lamoTRIgine 2022-0 Yes 50mg Take 50 mg [facility] 25 mg 6-30 by mouth ity of tablet 00:00: in the [place] 00 morning. Medical Branch lamoTRIgine 2022-0 Yes 50mg Take 50 mg [facility] 25 mg 6-30 by mouth ity of tablet 00:00: in the [place] 00 morning. Medical Branch lamoTRIgine 2022-0 Yes 50mg Take 50 mg [facility] 25 mg 6-30 by mouth ity of tablet 00:00: in the [place] 00 morning. Medical Branch lamoTRIgine 2022-0 Yes 50mg Take 50 mg [facility] 25 mg 6-30 by mouth ity of tablet 00:00: in the [place] 00 morning. Medical Branch lamoTRIgine 2022-0 Yes 50mg Take 50 mg [facility] 25 mg 6-30 by mouth ity of tablet 00:00: in the [place] 00 morning. Medical Branch lamoTRIgine 2022-0 Yes 50mg Take 50 mg [facility] 25 mg 6-30 by mouth ity of tablet 00:00: in the [place] 00 morning. Medical Branch lamoTRIgine 2022-0 Yes 50mg Take 50 mg [facility] 25 mg 6-30 by mouth ity of tablet 00:00: in the [place] 00 morning. Medical Branch lamoTRIgine 2022-0 Yes 50mg Take 50 mg [facility] 25 mg 6-30 by mouth ity of tablet 00:00: in the [place] 00 morning. Medical Branch lamoTRIgine 2022-0 Yes 50mg Take 50 mg [facility] 25 mg 6-30 by mouth ity of tablet 00:00: in the [place] 00 morning. Medical Branch lamoTRIgine 2022-0 Yes 50mg Take 50 mg [facility] 25 mg 6-30 by mouth ity of tablet 00:00: in the [place] morning. Medical Branch lamoTRIgine 2022-0 Yes 50mg Take 50 mg [facility] 25 mg 6-30 by mouth ity of tablet 00:00: in the [place] morning. Medical Branch lamoTRIgine 2022-0 Yes 50mg Take 50 mg [facility] 25 mg 6-30 by mouth ity of tablet 00:00: in the [place] morning. Medical Branch lamoTRIgine 2022-0 Yes 50mg Take 50 mg [facility] 25 mg 6-30 by mouth ity of tablet 00:00: in the [place] morning. Medical Branch lamoTRIgine 2022-0 Yes 50mg Take 50 mg [facility] 25 mg 6-30 by mouth ity of tablet 00:00: in the [place] morning. Medical Branch lamoTRIgine 2022-0 Yes 50mg Take 50 mg [facility] 25 mg 6-30 by mouth ity of tablet 00:00: in the [place] 00 morning. Medical Branch lamoTRIgine 2022-0 Yes 50mg Take 50 mg [facility] 25 mg 6-30 by mouth ity of tablet 00:00: in the [place] 00 morning. Medical Branch lamoTRIgine 2022-0 Yes 50mg Take 50 mg [facility] 25 mg 6-30 by mouth ity of tablet 00:00: in the [place] morning. Medical Branch lamoTRIgine 2022-0 Yes 50mg Take 50 mg [facility] 25 mg 6-30 by mouth ity of tablet 00:00: in the [place] morning. Medical Branch lamoTRIgine 2022-0 Yes 50mg Take 50 mg [facility] 25 mg 6-30 by mouth ity of tablet 00:00: in the [place] 00 morning. Medical Branch lamoTRIgine 2022-0 Yes 50mg Take 50 mg [facility] 25 mg 6-30 by mouth ity of tablet 00:00: in the [place] 00 morning. Medical Branch lamoTRIgine 2022-0 Yes 50mg Take 50 mg [facility] 25 mg 6-30 by mouth ity of tablet 00:00: in the [place] 00 morning. Medical Branch lamoTRIgine 2022-0 Yes 50mg Take 2 Univ ers 25 mg 6-30 tablets by ity of tablet 00:00: mouth in [place] 00 the Medical morning. Branch lamoTRIgine 2022-0 Yes 50mg Take 2 Univ ers 25 mg 6-30 tablets by ity of tablet 00:00: mouth in [place] 00 the Medical morning. Branch lamoTRIgine 2022-0 Yes 50mg Take 2 Univ ers 25 mg 6-30 tablets by ity of tablet 00:00: mouth in [place] 00 the Medical morning. Branch lamoTRIgine 2022-0 Yes 50mg Take 2 Univ ers 25 mg 6-30 tablets by ity of tablet 00:00: mouth in [place] 00 the Medical morning. Branch lamoTRIgine 2022-0 Yes 50mg Take 2 Univ ers 25 mg 6-30 tablets by ity of tablet 00:00: mouth in [place] 00 the Medical morning. Branch Lamictal 25 2-0 No 2mg mg tablet [...] mouth ity of tablet 00:00: in the [place] 00 morning. Medical Branch lamoTRIgine 2022-0 Yes 50mg Take 50 mg [facility] 25 mg 6-30 by mouth ity of tablet 00:00: in the [place] 00 morning. Medical Branch lamoTRIgine 2022-0 2023- No 50mg Take 2 Uni vers 25 mg 6-30 04-17 tablets by ity of tablet 00:00: 00:00 mouth in [place] 00 :00 the Medical morning. Branch lamoTRIgine 2022-0 2023- No 50mg Take 2 Uni vers 25 mg 6-30 04-17 tablets by ity of tablet 00:00: 00:00 mouth in [place] 00 :00 the Medical morning. Branch Dose 2022-0 No Unknown 5-31 00:00: [...] 2022-0 No Unknown 3-14 00:00: 00 Dose 2-0 No Unknown 3-14 00:00: 00 Dose 2-0 No Unknown 3-14 00:00: 00 Lamictal 25 [...] by ity of e 15:10: mouth 2 [place] ([facility]) 21 (two) Medical 875-125 mg times Branch per tablet daily. OXcarbazepi 2020-0 Yes 300mg Take 300 U nivers ne 300 mg 9-29 mg by ity of tablet 15:10: mouth at [place] [address] bedtime. Medical Branch amoxicillin 2020-0 Yes 1{tbl} Take 1 Un [place] -clavulanat 9-29 tablet by ity of e 15:10: mouth 2 [place] ([facility]GMENTIN) 21 (two) Medical 875-125 mg times Branch per tablet daily. OXcarbazepi 1-0 Yes 300mg Take 300 U nivers ne 300 mg 9-29 mg by ity of tablet 15:10: mouth at [place] [address] bedtime. Medical Branch Lamictal 25 2020-0 No 1mg mg tablet 9-21 00:00: 00 trazodone 2020-0 No 1mg 50 mg 9-21 tablet 00:00: 00 Abilify 30 2020-0 No 1mg mg tablet 06-20 00:00: 00 oxcarbazepi 2020-0 No 2mg ne 600 mg 06-20 tablet 00:00: 00 lithium 2020-0 No 3mg carbonate 06-20 300 mg 00:00: capsule 00 benzonatate 2020-0 Yes [id number] 100mg Take 1 [facility] 100 mg 7-17 capsule by ity of capsule 00:00: mouth 3 [place] 00 (three) Medical times Branch daily as needed for Cough. benzonatate 0 Yes [id number] 100mg Take 1 [facility] 100 mg 7-17 capsule by ity of capsule 00:00: mouth 3 [place] 00 (three) Medical times Branch daily as needed for Cough. benzonatate 0 2021- No [id number] 100mg Take 1 [facility] 100 mg 7-17 09-20 capsule by ity of capsule 00:00: 00:00 mouth 3 [place] 00 :00 (three) Medical times Branch daily as needed for Cough. benzonatate 0 2- No [id number] 100mg Take 1 [facility] 100 mg 7-17 09-20 capsule by ity of capsule 00:00: 00:00 mouth 3 [place] 00 :00 (three) Medical times Branch daily as needed for Cough. Lamictal 25 2020-0 No 1mg mg tablet 04-27 00:00: 00 hydroxyzine 2020-0 No 1mg HCl 25 mg 7-09 tablet 00:00: 00 Lamictal 25 2020-0 No 1mg mg tablet 03-30 00:00: 00 hydroxyzine 2020-0 No 1mg HCl 25 mg 6-11 tablet 00:00: 00 pantoprazol 2020-0 Yes [id number] 40mg Take 1 Univers e 40 mg EC 6-09 tablet by ity of tablet 00:00: mouth [place] 00 daily. Medical Branch pantoprazol 2020-0 Yes [id number] 40mg Take 1 [facility] e 40 mg EC 6-09 tablet by ity of tablet 00:00: mouth [place] 00 daily. Medical Branch pantoprazol 2020-0 Yes [id number] 40mg Take 1 [facility] e 40 mg EC 6-09 tablet by ity of tablet 00:00: mouth [place] 00 daily. Medical Branch pantoprazol 2020-0 Yes [id number] 40mg Take 1 [facility] e 40 mg EC 6-09 tablet by ity of tablet 00:00: mouth [place] 00 daily. Medical Branch pantoprazol Yes [id number] 40mg Take 1 [facility] e 40 mg EC 6-09 tablet by ity of tablet 00:00: mouth [place] 00 daily. Medical Branch pantoprazol Yes [id number] 40mg Take 1 Univers e 40 mg EC 6-09 tablet by ity of tablet 00:00: mouth [place] 00 daily. [facility] pantoprazol Yes [id number] 40mg Take 1 Univers e 40 mg EC 6-09 tablet by ity of tablet 00:00: mouth [place] 00 daily. [facility] pantoprazol Yes [id number] 40mg Take 1 Univers e 40 mg EC 6-09 tablet by ity of tablet 00:00: mouth [place] 00 daily. [facility] pantoprazol Yes [id number] 40mg Take 1 Univers e 40 mg EC 6-09 tablet by ity of tablet 00:00: mouth [place] 00 daily. [facility] pantoprazol Yes [id number] 40mg Take 1 Univers e 40 mg EC 6-09 tablet by ity of tablet 00:00: mouth [place] 00 daily. [facility] pantoprazol Yes [id number] 40mg Take 1 Univers e 40 mg EC 6-09 tablet by ity of tablet 00:00: mouth [place] 00 daily. [facility] pantoprazol Yes [id number] 40mg Take 1 Univers e 40 mg EC 6-09 tablet by ity of tablet 00:00: mouth [place] 00 daily. [facility] pantoprazol Yes [id number] 40mg Take 1 Univers e 40 mg EC 6-09 tablet by ity of tablet 00:00: mouth [place] 00 daily. [facility] pantoprazol Yes [id number] 40mg Take 1 Univers e 40 mg EC 6-09 tablet by ity of tablet 00:00: mouth [place] 00 daily. [facility] pantoprazol Yes [id number] 40mg Take 1 Univers e 40 mg EC 6-09 tablet by ity of tablet 00:00: mouth [place] 00 daily. [facility] pantoprazol Yes [id number] 40mg Take 1 Univers e 40 mg EC 6-09 tablet by ity of tablet 00:00: mouth [place] 00 daily. [facility] pantoprazol 0 Yes [id number] 40mg Take 1 Univers e 40 mg EC 6-09 tablet by ity of tablet 00:00: mouth [place] 00 daily. [facility] pantoprazol Yes [id number] 40mg Take 1 Univers e 40 mg EC 6-09 tablet by ity of tablet 00:00: mouth [place] 00 daily. [facility] pantoprazol 0 Yes [id number] 40mg Take 1 Univers e 40 mg EC 6-09 tablet by ity of tablet 00:00: mouth [place] 00 daily. [facility] pantoprazol Yes [id number] 40mg Take 1 Univers e 40 mg EC 6-09 tablet by ity of tablet 00:00: mouth [place] 00 daily. [facility] pantoprazol Yes [id number] 40mg Take 1 Univers e 40 mg EC 6-09 tablet by ity of tablet 00:00: mouth [place] 00 daily. [facility] pantoprazol Yes [id number] 40mg Take 1 Univers e 40 mg EC 6-09 tablet by ity of tablet 00:00: mouth [place] 00 daily. [facility] pantoprazol Yes [id number] 40mg Take 1 Univers e 40 mg EC 6-09 tablet by ity of tablet 00:00: mouth [place] 00 daily. [facility] pantoprazol Yes [id number] 40mg Take 1 Univers e 40 mg EC 6-09 tablet by ity of tablet 00:00: mouth [place] 00 daily. [facility] pantoprazol 0 Yes [id number] 40mg Take 1 Univers e 40 mg EC 6-09 tablet by ity of tablet 00:00: mouth [place] 00 daily. [facility] pantoprazol 2020-0 Yes [id number] 40mg Take 1 Univers e 40 mg EC 6-09 tablet by ity of tablet 00:00: mouth [place] 00 daily. [facility] pantoprazol 0 Yes [id number] 40mg Take 1 Univers e 40 mg EC 6-09 tablet by ity of tablet 00:00: mouth [place] 00 daily. [facility] pantoprazol 2020-0 Yes [id number] 40mg Take 1 Univers e 40 mg EC 6-09 tablet by ity of tablet 00:00: mouth [place] 00 daily. [facility] pantoprazol 2020-0 Yes [id number] 40mg Take 1 Univers e 40 mg EC 6-09 tablet by ity of tablet 00:00: mouth [place] 00 daily. [facility] pantoprazol 2020-0 Yes [id number] 40mg Take 1 Univers e 40 mg EC 6- tablet by ity of tablet 00:00: mouth [place] 00 daily. [facility] pantoprazol 2020-0 3- No [id number] 40mg Take 1 Univers e 40 mg EC 6- tablet by ity of tablet 00:00: 00:00 mouth [place] 00 :00 daily. [facility] pantoprazol 0 3- No [id number] 40mg Take 1 Univers e 40 mg EC 03-28 tablet by ity of tablet 00:00: 00:00 mouth [place] 00 :00 daily. [facility] Lamictal 25 2020-0 No 1mg mg tablet 5-14 00:00: 00 hydroxyzine 2020-0 No 1mg HCl 25 mg 5-14 tablet 00:00: 00 Lamictal 25 2020-0 No 1mg mg tablet 4-16 00:00: 00 hydroxyzine 1-0 No 1mg HCl 25 mg 4-16 tablet 00:00: 00 metronidazo 1-0 No 1mg le 500 mg 4-03 tablet 00:00: 00 ciprofloxac 1-0 No 1mg in 500 mg 4-03 tablet 00:00: 00 Lamictal 25 1-0 No 1mg mg tablet 3-19 00:00: 00 hydroxyzine 1-0 No 1mg HCl 25 mg 3-19 tablet 00:00: 00 Augmentin 1-0 No 1mg 875 mg-125 3-17 mg tablet 00:00: 00 Macrobid 2021-0 No 1mg 100 mg 3-10 capsule 00:00: 00 Lamictal 25 1-0 No 1mg mg tablet 2-26 00:00: 00 hydroxyzine 2021-0 No 1mg HCl 25 mg 2-26 tablet 00:00: 00 Macrobid 2021-0 No 1mg 100 mg 2-09 capsule 00:00: 00 Lamictal 25 1-0 No 1mg mg tablet 2- 00:00: 00 [...] Completed Unive rsity of LUISANA/J&J VACCINE 00:00:00 [facility] [place] [facility] SARS-COV-2 COVID-19 2021-01-15 Completed Unive rsity of LUISANA/J&J VACCINE 00:00:00 [facility] [place] [facility] SARS-COV-2 COVID-19 2021-01-15 Completed Unive rsity of LUISANA/J&J VACCINE 00:00:00 [facility] [place] [facility] SARS-COV-2 COVID-19 2021-01-15 Completed Unive rsity of LUISANA/J&J VACCINE 00:00:00 [facility] [place] [facility] SARS-COV-2 COVID-19 2021-01-15 Completed Unive rsity of LUISANA/J&J VACCINE 00:00:00 [facility] [place] [facility] SARS-COV-2 COVID-19 2021-01-15 Completed Unive rsity of LUISANA/J&J VACCINE 00:00:00 [facility] [place] [facility] SARS-COV-2 COVID-19 2021-01-15 Completed Unive rsity of LUISANA/J&J VACCINE 00:00:00 [facility] [place] [facility] SARS-COV-2 COVID-19 2021-01-15 Completed Unive rsity of LUISANA/J&J VACCINE 00:00:00 [facility] [place] [facility] SARS-COV-2 COVID-19 2021-01-15 Completed Unive rsity of LUISANA/J&J VACCINE 00:00:00 [facility] [place] [facility] SARS-COV-2 COVID-19 2021-01-15 Completed Unive rsity of LUISANA/J&J VACCINE 00:00:00 [facility] [place] [facility] SARS-COV-2 COVID-19 2021-01-15 Completed Unive rsity of LUISANA/J&J VACCINE 00:00:00 [facility] [place] [facility] SARS-COV-2 COVID-19 2021-01-15 Completed Unive rsity of LUISANA/J&J VACCINE 00:00:00 [facility] [place] [facility] SARS-COV-2 COVID-19 2021-01-15 Completed Unive rsity of LUISANA/J&J VACCINE 00:00:00 [facility] [place] [facility] SARS-COV-2 COVID-19 2021-01-15 Completed Unive rsity of LUISANA/J&J VACCINE 00:00:00 [facility] [place] [facility] SARS-COV-2 COVID-19 2021-01-15 Completed Unive rsity of LUISANA/J&J VACCINE 00:00:00 [facility] [place] [facility] SARS-COV-2 COVID-19 2021-01-15 Completed Unive rsity of LUISANA/J&J VACCINE 00:00:00 [facility] [place] [facility] SARS-COV-2 COVID-19 2021-01-15 Completed Unive rsity of LUISANA/J&J VACCINE 00:00:00 [facility] [place] [facility] SARS-COV-2 COVID-19 2021-01-15 Completed Unive rsity of LUISANA/J&J VACCINE 00:00:00 [facility] [place] [facility] SARS-COV-2 COVID-19 2021-01-15 Completed Unive rsity of LUISANA/J&J VACCINE 00:00:00 [facility] [place] [facility] SARS-COV-2 COVID-19 2021-01-15 Completed Unive rsity of LUISANA/J&J VACCINE 00:00:00 [facility] [place] [facility] SARS-COV-2 COVID-19 2021-01-15 Completed Unive rsity of LUISANA/J&J VACCINE 00:00:00 [facility] [place] [facility] SARS-COV-2 COVID-19 2021-01-15 Completed Unive rsity of LUISANA/J&J VACCINE 00:00:00 [facility] [place] [facility] SARS-COV-2 COVID-19 2021-01-15 Completed Unive rsity of LUISANA/J&J VACCINE 00:00:00 [facility] [place] [facility] SARS-COV-2 COVID-19 2021-01-15 Completed Unive rsity of LUISANA/J&J VACCINE 00:00:00 [facility] [place] [facility] SARS-COV-2 COVID-19 2021-01-15 Completed Unive rsity of LUISANA/J&J VACCINE 00:00:00 [facility] [place] [facility] SARS-COV-2 COVID-19 2021-01-15 Completed Unive rsity of LUISANA/J&J VACCINE 00:00:00 [facility] [place] [facility] SARS-COV-2 COVID-19 2021-01-15 Completed Unive rsity of LUISANA/J&J VACCINE 00:00:00 [facility] [place] [facility] SARS-COV-2 COVID-19 2021-01-15 Completed Unive rsity of LUISANA/J&J VACCINE 00:00:00 [facility] [place] [facility] SARS-COV-2 COVID-19 2021-01-15 Completed Unive rsity of LUISANA/J&J VACCINE 00:00:00 [facility] [place] [facility] SARS-COV-2 COVID-19 2021-01-15 Completed Unive rsity of LUISANA/J&J VACCINE 00:00:00 [facility] [place] [facility] SARS-COV-2 COVID-19 2021-01-15 Completed Unive rsity of LUISANA/J&J VACCINE 00:00:00 [facility] [place] [facility] SARS-COV-2 COVID-19 2021-01-15 Completed Unive rsity of LUISANA/J&J VACCINE 00:00:00 [facility] [place] [facility] SARS-COV-2 COVID-19 2021-01-15 Completed Unive rsity of LUISANA/J&J VACCINE 00:00:00 [facility] [place] [facility] SARS-COV-2 COVID-19 2021-01-15 Completed Unive rsity of LUISANA/J&J VACCINE 00:00:00 [facility] [place] [facility] SARS-COV-2 COVID-19 2021-01-15 Completed Unive rsity of LUISANA/J&J VACCINE 00:00:00 [facility] [place] [facility] SARS-COV-2 COVID-19 2021-01-15 Completed Unive rsity of LUISANA/J&J VACCINE 00:00:00 [facility] [place] [facility] SARS-COV-2 COVID-19 2021-01-15 Completed Unive rsity of LUISANA/J&J VACCINE 00:00:00 [facility] [place] [facility] SARS-COV-2 COVID-19 2021-01-15 Completed Unive rsity of LUISANA/J&J VACCINE 00:00:00 [facility] [place] [facility] SARS-COV-2 COVID-19 2021-01-15 Completed Unive rsity of LUISANA/J&J VACCINE 00:00:00 [facility] [place] [facility] SARS-COV-2 COVID-19 2021-01-15 Completed Unive rsity of LUISANA/J&J VACCINE 00:00:00 [facility] [place] [facility] SARS-COV-2 COVID-19 2021-01-15 Completed Unive rsity of LUISANA/J&J VACCINE 00:00:00 [facility] [place] [facility] SARS-COV-2 COVID-19 2021-01-15 Completed Unive rsity of [facility]ISA[place]/J&J VACCINE 00:00:00 [facility] [place] [facility] SARS-COV-2 COVID-19 2021-01-15 Completed Unive rsity of LUISANA/J&J VACCINE 00:00:00 [facility] [place] [facility] SARS-COV-2 COVID-19 2021-01-15 Completed Unive rsity of LUISANA/J&J VACCINE 00:00:00 [place] [facility] SARS-COV-2 COVID-19 2021-01-15 Completed Unive rsity of LUISANA/J&J VACCINE 00:00:00 [facility] [place] [facility] Vital Signs Vital Name Observation Time Observation Value Comments Source Systolic blood 2023-02-15 22:41:00 109 mm[Hg] Univer sity of pressure [place] [facility] Diastolic blood 2023-02-15 22:41:00 72 mm[Hg] Unive rsity of pressure [facility] Heart rate 2023-02-15 22:41:00 87 /min Universi ty of [place] [facility] Body temperature 2023-02-15 22:41:00 36.83 Annia Univ ersity of [facility] Respiratory rate 2023-02-15 22:41:00 18 /min Univ ersity of [place] [facility] Body height 2023-02-15 22:41:00 162.6 cm Universi ty [facility] [place] [facility] Body weight 2023-02-15 22:41:00 68.947 kg Universi ty of [place] [facility] BMI 2023-02-15 22:41:00 26.09 kg/m2 Universi ty [facility] [place] [facility] Oxygen saturation in 2023-02-15 22:41:00 96 /min University of Arterial blood by [place] [facility] oxim[facility] Branch Systolic blood 2023-02-07 14:41:00 124 mm[Hg] Univer sity of pressure [place] [facility] Diastolic blood 2023-02-07 14:41:00 83 mm[Hg] Unive rsity of pressure [place] [facility] Heart rate 2023-02-07 14:41:00 94 /min [facility]i ty [facility] [place] [facility] Body temperature 2023-02-07 14:41:00 36.67 Annia Univ ersity of [place] [facility] Body height 2023-02-07 14:41:00 162.6 cm [facility]i ty [facility] [place] [facility] Body weight 2023-02-07 14:41:00 69.718 kg [facility]i [facility] [place] [facility] BMI 2023-02-07 14:41:00 26.38 kg/m2 [facility] [place] [facility] Oxygen saturation in 2023-02-07 14:41:00 98 /min University of Arterial blood by [place] [facility] Pulse oximetry Branch Systolic blood 2023-02-03 14:53:00 125 mm[Hg] Univer sity of pressure [place] [facility] Diastolic blood 2023-02-03 14:53:00 68 mm[Hg] Unive rsity of pressure [place] [facility] Heart rate 2023-02-03 14:53:00 79 /min Universi ty [facility] [place] [facility] Body temperature 2023-02-03 14:53:00 36.33 Annia Univ ersity of [place] [facility] Body height 2023-02-03 14:53:00 162.6 cm Universi ty [facility] [place] [facility] Body weight 2023-02-03 14:53:00 68.629 kg Universi ty [facility] [place] [facility] BMI 2023-02-03 14:53:00 25.97 kg/m2 [facility] ty [facility] [place] [facility] Oxygen saturation in 2023-02-03 14:53:00 100 /min University of Arterial blood by [facility] Pulse oximetry Branch Systolic blood 2023-01-03 21:59:00 133 mm[Hg] Univer sity of pressure [place] [facility] Diastolic blood 2023-01-03 21:59:00 87 mm[Hg] Unive rsity of pressure [place] [facility] Heart rate 2023-01-03 21:59:00 109 /min Universi ty [facility] [place] [facility] Body temperature 2023-01-03 21:59:00 36.89 Annia Univ ers[facility] of [place] [facility] Respiratory rate 2023-01-03 21:59:00 17 /min Univ ersity of [place] [facility] Body weight 2023-01-03 21:59:00 70.308 kg Universi ty [facility] [place] [facility] BMI 2023-01-03 21:59:00 26.61 kg/m2 Univers[facility] ty [facility] [place] [facility] Oxygen saturation in 2023-01-03 21:59:00 98 /min University of Arterial blood by [facility] Pulse oximetry Branch Systolic blood 2022-12-06 15:29:00 132 mm[Hg] Univer sity of pressure [place] [facility] Diastolic blood 2022-12-06 15:29:00 85 mm[Hg] Unive rsity of pressure [place] [facility] Body temperature 2022-12-06 15:29:00 37.11 Annia Univ ersity of [place] [facility] Body height 2022-12-06 15:29:00 162.6 cm Universi ty [facility] [place] [facility] Body weight 2022-12-06 15:29:00 68.947 kg Universi ty of [place] [facility] BMI 2022-12-06 15:29:00 26.09 kg/m2 [facility] ty [facility] [place] [facility] Oxygen saturation in 2022-12-06 15:29:00 99 /min University of Arterial blood by [place] [employer] amari Pulse oximetry Branch Systolic blood 2022-11-20 21:39:00 106 mm[Hg] Univer sity of pressure [place] [facility] Diastolic blood 2022-11-20 21:39:00 63 mm[Hg] Unive rsity of pressure [place] [facility] Heart rate 2022-11-20 21:39:00 118 /min [facility]i ty [facility] [place] [facility] Body temperature 2022-11-20 21:39:00 36.72 Annia Univ ersity of [place] [facility] Body height 2022-11-20 21:39:00 162.6 cm Universi ty [facility] [place] [facility] Body weight 2022-11-20 21:39:00 68.04 kg [facility] [place] [facility] BMI 2022-11-20 21:39:00 25.75 kg/m2 [facility] [place] [facility] Oxygen saturation in 2022-11-20 21:39:00 99 /min University of Arterial blood by [facility] Pulse oximetry Branch Systolic blood 2022-09-25 17:10:00 120 mm[Hg] Univer sity of pressure [place] [facility] Diastolic blood 2022-09-25 17:10:00 80 mm[Hg] Unive rsity of pressure [place] [facility] Heart rate 2022-09-25 17:10:00 92 /min [facility]i ty [facility] [place] [facility] Body height 2022-09-25 17:10:00 162.6 cm [facility] [place] [facility] Body weight 2022-09-25 17:10:00 64.864 kg [facility] [place] [facility] BMI 2022-09-25 17:10:00 24.55 kg/m2 [facility] [place] [facility] Systolic blood 2022-08-08 02:23:00 122 mm[Hg] Univer sity of pressure [place] [facility] Diastolic blood 2022-08-08 02:23:00 78 mm[Hg] Unive rsity of pressure [place] [facility] Heart rate 2022-08-08 02:23:00 76 /min [facility] [place] [facility] Body temperature 2022-08-08 02:23:00 36.67 Annia Univ ersity of [facility] [place] [facility] Respiratory rate 2022-08-08 02:23:00 19 /min Univ ersity of [facility] [place] [facility] Oxygen saturation in 2022-08-08 02:23:00 96 /min [facility] Arterial blood by [facility] Pulse oximetry Branch Body height 2022-08-07 20:26:00 162.6 cm [facility] [place] [facility] [place] Body weight 2022-08-07 20:26:00 64.1 kg [facility] [place] [facility] [place] BMI 2022-08-07 20:26:00 24.26 kg/m2 Universi ty of [facility] [place] [facility] Systolic blood 2022-07-09 14:25:00 139 mm[Hg] Univer sity of [facility] Diastolic blood 2022-07-09 14:25:00 94 mm[Hg] Unive rsity of [facility] Heart rate 2022-07-09 14:25:00 88 /min Universi ty of [facility] [place] [facility] Body height 2022-07-09 14:25:00 162.6 cm [facility] [place] [facility] [place] Body weight 2022-07-09 14:25:00 65.318 kg [facility] [place] [facility] [place] BMI 2022-07-09 14:25:00 24.72 kg/m2 [facility] [place] [facility] [place] Systolic blood 2022-06-04 18:16:00 115 mm[Hg] Univer [facility]ity of [facility] [place] [facility] [place] Diastolic blood 2022-06-04 18:16:00 74 mm[Hg] Unive rsity of [facility] Body height 2022-06-04 18:16:00 162.6 cm [facility] [place] [facility] [place] Body weight 2022-06-04 18:16:00 64.864 kg [facility] [place] [facility] [place] BMI 2022-06-04 18:16:00 24.55 kg/m2 Universi ty of [facility] [place] [facility] BP Systolic 2022-11-12 09:56:00 119 mm[Hg] BP [...] / Time Performed Performing Clinician Sour e POCT SARS-COV-2 2023-02-07 15:13:00 Vivienne Holt [facility] ANTIGEN (BINAX NOW) Medical Bran ch POCT MOLECULAR FLU 2023-02-07 15:06:00 Unknown, Attending [facility] POCT MOLECULAR STREP 2023-02-07 14:52:00 Unknown, Attending [facility] PATIENT FINANCIAL 2023-01-03 21:48:53 Doctor Unassigned, No [facility] POLICY Name [facility] EXTERNAL PROVIDER 2022-12-24 06:01:00 Doctor Unassigned, No [facility] RECORDS Name [facility] CREATINE KINASE 2022-08-07 [facility]44[facility], [facility]UM 2022-08-07 21:44:00 [facility] TROPONIN I 2022-08-07 21:44[facility]EL 2022-08-07 21:44:00 Jamar Mila [facility] ([id number]) [facility] (ALB,T.PRO,BILI T,BU/BC,ALT,AST,ALK PHOS) BASIC METABOLIC PANEL 2022-08-07 [facility], CL, CO2, Medical Branch GLUCOSE, BUN, CREATININE, CA) SALICYLATE 2022-08-07 21:44[facility]22-08-07 [facility] WITH DIFF 2022-08-07 21:44:00 Mila Roldan [place] [facility] [place] [facility] Plan of Care Planned Activity Planned Date Details Comments Source Goal Plan of Care Note [code = 49335-6] Goal Plan of Care Note [code = 95401-3] Goal Plan of Care Note [code = 41671-8] Goal Plan of Care Note [code = 03374-3] Goal Plan of Care Note [code = 55566-0] Goal Plan of Care Note [code = 24630-4] Goal Plan of Care Note [code = 91489-3] Goal Plan of Care Note [code = 98336-1] Goal Plan of Care Note [code = 03708-6] Goal Plan of Care Note [code = 01497-0] Goal Plan of Care Note [code = 01203-9] Goal Plan of Care Note [code = 78880-4] Goal Plan of Care Note [code = 81184-9] Goal Plan of Care Note [code = 83192-2] Goal Plan of Care Note [code = 09709-5] Goal Plan of Care Note [code = 53831-5] Goal Plan of Care Note [code = 66457-5] Goal Plan of Care Note [code = 35822-7] Goal Plan of Care Note [code = 16006-2] Goal Plan of Care Note [code = 99089-9] Goal Plan of Care Note [code = 84170-8] Goal Plan of Care Note [code = 49551-5] Goal Plan of Care Note [code = 06512-6] Goal Plan of Care Note [code = 65659-8] Goal Plan of Care Note [code = 10727-1] Goal Plan of Care Note [code = 80289-2] Goal Plan of Care Note [code = 55473-6] Goal Plan of Care Note [code = 87031-0] Goal Plan of Care Note [code = 17448-6] Goal Plan of Care Note [code = 41473-0] Goal Plan of Care Note [code = 27859-9] Goal Plan of Care Note [code = 08378-7] Goal Plan of Care Note [code = 10433-8] Encounters Start End Encounter Admission Attending Care Care Encounter Source Date/Time Date/Time Type Type Clinicians Facility Department ID 2021-08-20 Emergency [facility] [id number] Univers 08:51:37 ity of [facility] [place] [facility] 2023-05-23 2023-05-23 [facility] 1.2.840.114 [id number] Univers 16:51:14 23:59:00 Encounter Feroz BARLOW [id number] [facility] [place] [id number] [address] 2023-05-23 2023-05-23 [facility] [facility] [id number] Univers 16:50:23 16:50:00 FEROZ ity [facility] 2023-05-23 2023-05-23 [facility] 1.2.840.114 [id number] Univers 16:30:00 16:50:00 Encounter eFroz [place] [id number] ity [facility] [place] [id number] [address] 2023-05-10 2023-05-10 [facility] 1.2.840.114 [id number] Univers 00:00:00 00:00:00 [facility] [id number] it y of [place] 4.2.7.2.686 Jorge Alberto as [place] [id number] [address] MEDICAL OFFICE [facility] 2023-05-05 2023-05-05 [facility] 1.2.840.114 [id number] Univers 00:00:00 00:00:00 [facility] 350.1.13.10 it y of [place] 4.2.7.2.686 Jorge Alberto as [place] [id number] [address] MEDICAL OFFICE [facility] 2023-05-02 2023-05-02 Outpatient [facility] [id number] Univers 00:00:00 00:00:00 FEROZ ity [facility] 2023-04-25 2023-04-25 Outpatient [facility] [id number] Univers 00:00:00 00:00:00 FEROZ ity [facility] 2023-04-08 2023-04-08 [facility] 1.2.840.114 [id number] Univers 00:00:00 00:00:00 [facility] 350.1.13.10 it y of [place] 4.2.7.2.686 Jorge Alberto as [place] [phone] [facility] OFFICE [facility] 2023-04-03 2023-04-03 [facility] 1.2.840.114 [id number] Univers 00:00:00 00:00:00 [facility] 350.1.13.10 it y of [place] 4.2.7.2.686 Jorge Alberto as [place]?BLEA [id number] [facility] JORDI[address] OFFICE [facility] 2023-03-10 2023-03-10 [facility] 1.2.840.114 [id number] Univers 00:00:00 00:00:00 [facility] 350.1.13.10 it y of [place] 4.2.7.2.686 Jorge Alberto as [place]?BLEA [id number] [facility] [address] OFFICE [facility] 2023-03-08 2023-03-08 [facility] 1.2.840.114 [id number] Univers 00:00:00 00:00:00 [facility] 350.1.13.10 it y of [place] 4.2.7.2.686 Jorge Alberto as [place]?BLEA [id number] [facility] J[address] OFFICE [facility] 2023-03-07 2023-03-07 [facility] 1.2.840.114 [id number] Univers 00:00:00 00:00:00 [facility] 350.1.13.10 it y of [place] 4.2.7.2.686 Jorge Alberto as [place] [id number] [address] OFFICE [facility] 2023-03-07 2023-03-07 [facility] 1.2.840.114 [id number] Univers 00:00:00 00:00:00 [facility] 350.1.13.10 it y of [place] 4.2.7.2.686 Jorge Alberto as [place]?BLEA [id number] Nd dical HERNAN [address] MEDICAL OFFICE [facility] 2023-02-17 2023-02-17 Telephone [facility] 1.2.840.114 [id number] Univers 00:00:00 00:00:00 [facility] 350.1.13.10 it y of [place] 4.2.7.2.686 Jorge Alberto as [place]A [id number] Nd fuentes [address] [address] MEDICAL OFFICE [facility] 2023-02-15 2023-02-15 Outpatient R JE [facility] [id number] Univers 17:30:00 17:41:47 REENU [facility] 2023-02-15 2023-02-15 Nurse Nurse, [facility] 1.2.840.114 [id number] Univers 17:30:00 17:41:47 Visit Unknown, [place] [id number] ity of Je Isabellstephan [place] 4.2.7.2.686 [place]A [phone] Nd fuentes [address] MEDICAL OFFICE [facility] 2023-02-15 2023-02-15 Outpatient R UNKNOWN, [facility] [id number] Univers 17:20:00 17:20:00 ATTENDING ity [facility] 2023-02-07 2023-02-07 Urgent Yanet Ishmaelkendy [facility] 1.2.840.114 [id number] Univers 09:20:00 09:40:00 Care Unknown, [facility] 350.1.13.10 ity [facility] 4.2.7.2.686 Jorge Alberto as [place] [phone] Nd fuentes [address] MEDICAL OFFICE [facility] 2023-02-07 2023-02-07 Outpatient R UNKNOWN, ATTENDING [facility] [id number] Univers 09:20:00 09:20:00 [facility]ENNE [facility]-03 2023-02-03 Office [facility] 1.2.840.114 [id number] Univers 10:15:00 10:30:00 Visit [facility] 350.1.13.10 it y of [place] 4.2.7.2.686 Jorge Alberto as HI?BLEA [phone] Nd fuentes BECERRA [address] MEDICAL OFFICE [facility] 2023-02-03 2023-02-03 Outpatient R RUBY [facility] [id number] Univers 10:15:00 10:15:00 LAURA yvonne [facility] 2023-01-23 2023-01-23 Outpatient R RUBY [facility] [id number] Univers 10:00:00 10:00:00 LAURA [facility] 2023-01-06 2023-01-06 [facility] 1.2.840.114 [id number] Univers 00:00:00 00:00:00 [facility] 350.1.13.10 it y of [place] 4.2.7.2.686 Jorge Alberto as HI?BLEA [phone] [facility] 044 [facility] OFFICE [facility] 2023-01-04 2023-01-04 Telephone Provider, [facility] 1.2.840.114 [id number] Univers 00:00:00 00:00:00 [facility] HEALTH 350.1.13.10 it y of Urgent Care [place] 4.2.7.2.686 [place] HI?BLEA [id number] Nd fuentes BECERRA [address] MEDICAL OFFICE [facility] 2023-01-03 2023-01-03 Outpatient Casey INFANTE [facility] [id number] Univers 16:40:00 17:14:19 FLOR bates [facility] 2023-01-03 2023-01-03 Urgent Flor Infante [facility] 1.2.840.114 [id number] Univers 16:40:00 17:14:19 Care Unknown, [facility] 350.1.13.10 ity [facility] 4.2.7.2.686 Jorge Alberto as HI?BLEA [phone] Nd fuentes BECERRA [address] MEDICAL OFFICE [facility] 2023-01-03 2023-01-03 Orders Doctor DESTINEY 1.2.840.114 [id number] Univers 00:00:00 00:00:00 Only Unassigned, IJEOMA 350.1.13.10 ity of [place] [facility] 4.2.7.2.686 Jorge Alberto as [phone] [address] 2023-01-03 2023-01-03 Efraín Infante [facility] 1.2.840.114 [id number] Univers 00:00:00 00:00:00 (Out) Flor HEALTH 350.1.13.10 it y of [place] 4.2.7.2.686 Jorge Alberto as HI?BLEA [phone] [facility] [address] MEDICAL OFFICE [facility] 2023-01-02 2023-01-02 Ming Beltran [facility] 1.2.840.114 [id number] Univers 00:00:00 00:00:00 Laura HEALTH 350.1.13.10 it y of [place] [facility] 4.2.7.2.686 Jorge Alberto as HI?BLEA [phone] [facility] [address] MEDICAL OFFICE [facility] 2022-12-28 2022-12-28 [facility]ill [facility] 1.2.840.114 [id number] Univers 00:00:00 00:00:00 Trena A HEALTH 350.1.13.10 i ty of [facility] 4.2.7.2.686 Jorge Alberto as HI?BLEA [phone] [address] OFFICE [facility] 2022-12-26 2022-12-26 Outpatient KATERINA, [facility] [id number] [address] [place] [address] 00:00:00 00:00:00 [facility] 2022-12-24 2022-12-24 Orders Doctor DESTINEY 1.2.840.114 [id number] Univers 00:00:00 00:00:00 Only Unassigned, IJEOMA 350.1.13.10 ity of [place] [facility] 4.2.7.2.686 Jorge Alberto as [phone] [address] 2022-12-06 2022-12-06 Outpatient R YOSELIN [facility] [id number] Univers 09:30:00 09:56:07 TRENA ity of [facility] 2022-12-06 2022-12-06 Office [facility] 1.2.840.114 [id number] Univers 09:30:00 09:56:07 Visit Trena Althea HEALTH 350.1.13.10 i ty of [place] 4.2.7.2.686 Jorge Alberto as HI?BLEA [phone] Nd fuentes BACON[address] OFFICE [facility] 2022-12-06 2022-12-06 Outpatient R YOSELIN [facility] [id number] Univers 07:00:00 07:00:00 TRENA bates [facility] 2022-12-05 2022-12-05 [facility] 1.2.840.114 [id number] Univers 00:00:00 00:00:00 [facility] 350.1.13.10 it y of [place] 4.2.7.2.686 Jorge Alberto as HI?BLEA [phone] [address] OFFICE [facility] 2022-11-20 2022-11-20 Outpatient R BRITNEY [facility] [id number] Univers 15:30:00 16:22:49 VAUGHN bates [facility] 2022-11-20 2022-11-20 Office [facility] 1.2.840.114 [id number] Univers 15:30:00 16:22:49 Visit [facility] 350.1.13.10 it y of [place] 4.2.7.2.686 Jorge Alberto as HI?BLEA [phone] [address] OFFICE [facility] 2022-11-19 2022-11-19 Outpatient R AGNES [facility] [id number] Univers 09:30:00 09:30:00 ARNELSHAHEEN bates [facility] 2022-11-14 2022-11-14 Outpatient [facility] [id number] Ignacio 11:59:29 11:59:29 0126 [facility] 2022-11-13 2022-11-13 Telephone [facility] 1.2.840.114 [id number] Univers 00:00:00 00:00:00 [facility] 350.1.13.10 it y of [place] 4.2.7.2.686 Jorge Alberto as HI?BLEA [phone] [address] OFFICE [facility] 2022-11-12 2022-11-12 Outpatient [facility] [id number] Ignacio 09:48:10 09:48:10 0124 F Yan 2022-11-12 2022-11-12 Outpatient [id number]- [id number] fc [id number] 00:00:00 00:00:00 Visit [id number] 2022-11-11 2022-11-11 Outpatient Casey BELTRAN [facility] [id number] Univers 09:15:00 09:15:00 [facility] 2022-10-30 2022-10-30 Refill [facility] 1.2.840.114 [id number] Univers 00:00:00 00:00:00 [facility] 350.1.13.10 it y of [place] 4.2.7.2.686 Jorge Alberto as HI?BLEA [phone] [address] OFFICE [facility] 2022-10-10 2022-10-10 Telephone [facility] 1.2.840.114 [id number] Univers 00:00:00 00:00:00 [facility] 350.1.13.10 it y of [place] 4.2.7.2.686 Jorge Alberto as HI?BLEA [phone] [address] 2022-10-07 2022-10-07 Telephone [facility] 1.2.840.[id number] [facility] 00:00:00 00:00:00 [facility] 350.1.13.10 it y of [place] 4.2.7.2.686 Jorge Alberto as HI?BLEA [phone] [address] OFFICE [facility] 2022-09-25 2022-09-25 Outpatient Casey BELTRAN [facility] [id number] Univers 11:00:00 11:20:08 LAURA [facility] 2022-09-25 2022-09-25 Office [facility] 1.2.840.114 [id number] Univers 11:00:00 11:20:08 Visit [facility] 350.1.13.10 it y of [place] 4.2.7.2.686 Jorge Alberto as HI?BLEA [phone] [address] MEDICAL OFFICE [facility] 2022-09-03 2022-09-03 Refill [facility] 1.2.840.114 [id number] Univers 00:00:00 00:00:00 Laura HEALTH 350.1.13.10 it y of [place] 4.2.7.2.686 Jorge Alberto as HI?BLEA [phone] [address] MEDICAL OFFICE [facility] 2022-08-09 2022-08-09 Telephone [facility] 1.2.840.114 [id number] Univers 00:00:00 00:00:00 Laura HEALTH 350.1.13.10 it y of [place] 4.2.7.2.686 Jorge Alberto as HI?BLEA [phone] [address] OFFICE [facility] 2022-08-08 2022-08-08 Telephone [facility] 1.2.840.114 [id number] Univers 00:00:00 00:00:00 [facility] 350.1.13.10 it y of [place] 4.2.7.2.686 Jorge Alberto as HI?BLEA [phone] [address] OFFICE [facility] 2022-08-07 2022-08-07 Emergency X [facility] ERT [id number] Univers 15:19:00 21:35:00 [facility] 2022-08-07 2022-08-07 Emergency [facility] 1.2.395.916 [id number] Univers 15:19:00 21:35:00 [facility] 350.1.13.10 it y of [place].2.[place] [phone] [address] ([facility]) 2022-07-10 2022-07-10 Telephone [facility] 1.2.840.114 [id number] Univers 00:00:00 00:00:00 Laura HEALTH 350.1.13.10 it y of [place] 4.2.7.2.686 Jorge Alberto as HI?BLEA [phone] Me fuentes BECERRA [address] [place] [address] MEDICAL OFFICE [facility] 2022-07-09 2022-07-09 Outpatient R [facility] [id number] Univers 09:15:00 09:44:28 LAURA yvonne [facility] 2022-07-09 2022-07-09 Office [facility] 1.2.840.114 [id number] Univers 09:15:00 09:30:00 Visit [place] [address]503.1.13.10 it y of [place] 4.2.7.2.686 Jorge Alberto as HI?BLEA [phone] Nd fuentes [address]ACON[address] MEDICAL OFFICE [facility] 2022-07-09 2022-07-09 Telephone [facility] 1.2.840.114 [id number] Univers 00:00:00 00:00:00 [facility] 350.1.13.10 it y of [place] 4.2.7.2.686 Jorge Alberto as HI?BLEA [phone] Nd fuentes [address] MEDICAL OFFICE [facility] 2022-06-04 2022-06-04 Outpatient R [facility] [id number] Univers 13:15:00 13:32:49 LAURA [facility] 2022-06-04 2022-06-04 Office [facility] 1.2.840.114 [id number] Univers 13:15:00 13:30:00 Visit [place] [address].1.13.10 it y of [place] 4.2.7.2.686 Jorge Alberto as HI?BLEA [phone] Nd fuentes BECERRA [address] [place] [address] MEDICAL OFFICE [facility] 2022-06-04 2022-06-04 Outpatient R [facility] [id number] Univers 13:15:00 13:15:00 LAURA [facility] 2022-04-28 2022-04-28 Emergency X [facility] ERT [id number] Univers 11:37:00 12:24:00 MUNDO [facility] 2022-04-28 2022-04-28 Emergency [facility] 1.2.840.114 [id number] Univers 11:37:00 12:24:00 Mundo YEN 350.1.13.10 i ty of [place].2.7.2.[place] [phone] [facility] [address] 2022-04-28 2022-04-28 Letter Lora Gould 1.2.840.114 [id number] Univers 00:00:00 00:00:00 (Out) IJEOMA 350.1.13.10 it y of HOSPITAL 4.2.7.2.686 Jorge Alberto as [phone] [facility] [address] 2021-07-18 2021-07-18 Office [facility] 1.2.840.114 [id number] Univers 14:56:51 15:32:09 Visit [facility] 350.1.13.10 it y of [place] 4.2.7.2.686 Jorge Alberto as Hi?Blea [phone] [address] Office Building 2021-07-18 2021-07-18 Outpatient R [facility] [id number] Univers 15:00:00 15:00:00 LAURA ity of [facility] 2021-05-30 2021-05-30 Orders Doctor DESTINEY 1.2.840.114 [id number] Univers 00:00:00 00:00:00 Only Unassigned, IJEOMA 350.1.13.10 ity of [place] [facility] 4.2.7.2.686 Jorge Alberto as [phone] [facility] [address] 2021-05-25 2021-05-25 Telephone [facility] 1.2.840.114 [id number] Univers 00:00:00 00:00:00 [facility] 350.1.13.10 it y of [place] 4.2.7.2.686 Jorge Alberto as Professio [phone] [address] Office Building One 2021-05-25 2021-05-25 Telephone [facility] 1.2.840.114 [id number] 00:00:00 00:00:00 [facility] 350.1.13.10 [place] 4.2.7.2.686 Professio [phone] [place] [address] [facility] 2021-05-21 2021-05-21 [facility] 1.2.840.[id number] [facility] 00:00:00 00:00:00 [facility] 350.1.13.10 it y of [place] 4.2.7.2.686 Jorge Alberto as Professio [phone] [address] 2021-05-21 2021-05-21 [facility] 1.2.840.114 [id number] 00:00:00 00:00:00 [facility] 350.1.13.10 [place] 4.2.7.2.686 Professio [phone] [place] [address] [facility] 2021-05-05 2021-05-05 Emergency [facility] 1.2.554.[id number] [facility] 11:42:00 13:42:00 Marc [place] 350.1.13.10 i ty of [place] 4.2.7.2.686 [facility] [phone] [address] 2021-05-05 2021-05-05 Emergency [facility] 1.2.419.500 [id number] 11:42:00 13:42:00 Marc [place] 350.1.13.10 [place] 4.2.7.2.686 [place] [id number] 2021-05-04 2021-05-04 Telephone [facility] 1.2.699.[id number] [facility] 00:00:00 00:00:00 [facility] 350.1.13.10 ity of [place] 4.2.7.2.686 Jorge Alberto as Professio [phone] [address] [facility] 2021-05-04 2021-05-04 Telephone [facility] 1.2.742.762 [id number] 00:00:00 00:00:00 [facility] 350.1.13.10 [place] 4.2.7.2.686 Professio [phone] [place] [address] [facility] 2021-05-03 2021-05-03 Urgent [facility] 1.2.840.114 [id number] Univers 17:09:02 17:56:38 Care [facility] 350.1.13.10 ity of [place] 4.2.7.2.686 Jorge Alberto as Professio [id number] [address] Office Building One 2021-05-03 2021-05-03 Urgent Marilyn, [facility] 1.2.840.114 [id number] 17:09:02 17:56:38 Care [facility] 350.1.13.10 [place] 4.2.7.2.686 Professio [phone] [place] [address] Office Building One 2021-05-03 2021-05-03 Outpatient R [facility] [id number] Univers 17:20:00 17:20:00 [facility] 2021-04-25 2021-04-25 Office [facility] 1.2.840.114 [id number] 10:32:12 10:47:12 Visit [facility] 350.1.13.10 [place] 4.2.7.2.686 Professio [phone] [place] [address] Office [facility] One 2021-04-25 2021-04-25 Office [facility] 1.2.840.114 [id number] Univers 10:32:12 10:47:12 Visit [facility] 350.1.13.10 it y of [place] 4.2.7.2.686 Jorge Alberto as Professio [phone] [address] Office [facility] One 2021-04-25 2021-04-25 Outpatient R [facility] [id number] [facility] 10:30:00 10:30:00 LAURA [facility] 2021-04-25 2021-04-25 Orders Doctor CABELLO 1.2.840.114 [id number] 00:00:00 00:00:00 Only Unassigned, IJEOMA 350.1.13.10 [place] [facility] 4.2.7.2.686 [id number] 009 2021-04-25 2021-04-25 Orders Doctor CABELLO 1.2.840.114 [id number] Univers 00:00:00 00:00:00 Only Unassigned, IJEOMA 350.1.13.10 ity of [place] [facility] 4.2.7.2.686 Jorge Alberto as [phone] [facility] [address] 2021-04-19 2021-04-19 Orders Doctor DESTINEY 1.2.840.114 [id number] Univers 00:00:00 00:00:00 Only Unassigned, IJEOMA 350.1.13.10 ity of [place] [facility] 4.2.7.2.686 Jorge Alberto as [phone] [address] 2021-04-11 2021-04-11 Outpatient R SUDHA [facility] [id number] Univers 15:30:00 15:30:00 JORDAN bates [facility] 2021-03-28 2021-03-28 [facility] 1.2.840.114 [id number] Univers 09:16:27 09:46:27 Visit [facility] 350.1.13.10 it y of [place] 4.2.7.2.686 Jorge Alberto as essandrey [phone] [address] Office [facility] One 2021-03-28 2021-03-28 Outpatient R RUBY [facility] [id number] Univers 09:30:00 09:30:00 LAURA btaes [facility] 2020-11-25 2020-11-26 Emergency [facility] 1.2.840.114 [id number] Univers 22:09:00 00:35:00 Jhoana [place] 350.1.13.10 ity of [place] 4.2.7.2.686 [place] [facility] [phone] [facility] [address] 2020-11-25 2020-11-26 Emergency X [facility] ERT [id number] Univers 22:09:00 00:35:00 JHOANA bates [facility] 2020-10-17 2020-10-17 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 13.10 ity of [place] 4.2.7.2.686 [facility] [phone] Nd dical nal 353 [facility] 2020-10-17 2020-10-17 Outpatient R URSZULA [facility] [id number] Univers 11:00:00 11:00:00 CRISTAL ityvonne [facility] 2020-10-17 2020-10-17 Orders Doctor DESTINEY 1.2.840.114 [id number] Univers 00:00:00 00:00:00 Only Unassigned, IJEOMA 350.1.13.10 ity of [place] [facility] 4.2.7.2.686 Jorge Alberto [phone] [address] 2020-10-05 2020-10-05 Emergency [facility] [id number] Univers 09:47:00 15:13:00 [facility] 2020-10-05 2020-10-05 Emergency [facility] 1.2.840.114 [id number] Univers 09:47:00 15:13:00 Kelsi [place] 350.1.13.10 garryyvonne [facility] 4.2.7.2.686 [facility] [phone] [address] Results Test Description Test Time Test Comments Results Result Comments Source POCT SARS-COV-2 ANTIGEN (BINAX NOW) 2023-02-07 15:14:00 Test Item Value Reference Range Interpretation Comme nts POCT SARS-COV-2 ANTIGEN (test code Not Detected Not Detected = 49237-1) On board controls acceptable with Yes C Line (test code = 3574) GALLO (test code = GALLO) accurate development and interpretation of all internal controls Lab Interpretation (test code = Normal 09337-7) [facility] MOLECULAR [id number] 15:10:42 Test Item Value Reference Range Interpretation Comments POCT Molecular FluA (test code = Positive Negative A 77594-5) Lab Interpretation (test code = Abnormal 99776-9) [facility] MOLECULAR [id number] 14:59:48 Test Item Value Reference Range Interpretation Comments POCT Molecular Strep (test code = Negative Negative 66830-0) Lab Interpretation (test code = Normal 85962-1) [facility], [id number] 22:34:41 Test Item Value Reference Range Interpretation Comments PREG SERUM (test code Negative = 2911450576) GALLO (test code = GALLO) Less than 10 IU/L. ?If low titer or ectopic is suspected, resubmit specimen in 48-72 hours. [facility] CenterTR[facility] [id number] 22:33:51 Test Item Value Reference Interpretation Comments Range TROPONIN I (test 0.002 ng/mL See_Comment [Automated code = 7455203976) message] The system which generated this result [...] biotin. Lab Interpretation Normal (test code = 54988-1) [facility] Center[facility]ALICYLATE2022-10-19 22:27:20 SALICYLATE<10mg/L1 5:27 PM [facility]Therapeutic Range: ? Analgesic and Antipyretic Use ? 20-100 mg/L ? ? Anti-Inflammatory Use ? 100-250 mg/L Toxic Range: ? Greater than 300 mg/[facility]UnC[facility] [id number] 22:27:15ALCOHOL<10mg/dL08/07/2022 5:27 PM [facility]oxic Greater thanor equal to 80 mg/dL. NOTE: Whole blood values are approximately 10% to 15% lower than serum and plas ma.[facility] CenterACETAMINOPHEN2022-10-19 22:27:10 Test Item Value Reference Range Interpretation Comments ACETAMINOP (test code = 10-30 L 1952955445) GALLO (test code = GALLO) Toxic: Greater than 200 ug/mL @ 4 hour post ingestion or greater than 50 ug/mL @ 12 hour post ingestion Lab Interpretation (test Abnormal code = 03120-6) [facility] METABOLIC PANEL (NA, K, CL, CO2, GLUCOSE, BUN, CREATININE, CA)2022-08-07 22:23:27 Test Item Value Reference Range Interpretation Comments NA (test code = 138 mmol/L 135-145 2388829728) K (test code = 3.9 mmol/L 3.5-5 8460984949) CL (test code = 102 mmol/L 98-108 1132354234) CO2 TOTAL (test code 27 mmol/L 23-31 = 1889228856) AGAP (test code = 2-16 0021976923) BUN (test code = 16 mg/dL 7-23 8831697316) GLUCOSE (test code = 87 mg/dL 70-110 4039222974) CREATININE (test code 0.69 mg/dL 0.5-1.04 = 3320182171) CALCIUM (test code = 9.7 mg/dL 8.6-10.6 2475296807) eGFR (test code = mL/min/1.73m2 6754530929) GALLO (test code = GALLO) Association of [...] or urine or abnormalities in imaging tests). [facility] CenterCREATINE [id number] 22:23:27 Test Item Value Reference Range Interpretation Comments CK (test code = 0246886272) 45 U/L 33-194 Lab Interpretation (test code = Normal 45907-0) [facility] CenterHEPATIC FUNCTION PANEL (16429) (ALB,T.PRO,BILI T,BU/BC,ALT,AST,ALK PHOS)2022-08-07 22:23:27 Test Item Value Reference Range Interpretation Comments TOTAL BILI (test code = 9561942119) 0.7 mg/dL 0.1-1.1 BILI UNCON (test code = 1465410603) 0.3 mg/dL 0.1-1.1 BILI CONJ (test code = 2100455494) 0.0 mg/dL 0-0.3 T PROTEIN (test code = 5191722145) 7.4 g/dL 6.3-8.2 ALBUMIN (test code = 0942041717) 4.4 g/dL 3.5-5 ALK PHOS (test code = 6351839818) 80 U/L 34-122 ALTv (test code = 1742-6) 15 U/L 5-35 AST(SGOT) (test code = 9529724734) 15 U/L 13-40 Lab Interpretation (test code = Normal 14102-8) [facility] CenterLIPASE2022-10-19 22:23:27 Test Item Value Reference Range Interpretation Comments LIPASE (test code = 9507641831) 51 U/L 0-220 Lab Interpretation (test code = Normal 55475-9) [facility] CenterCBC WITH [id number] 22:06:06 Test Item Value Reference Range Interpretation [...] RDW-SD (test code = 40.6 fL 39-49.9 49300-2) RDW-CV (test code = 13.1 % 12-15.5 788-0) PLT (test code = See_Comment H [Automated 777-3) message] The sy stem which generated this result transmitted reference range : 166 - 358 10*3/ ?L. The reference r deb was not used to interpret this result as normal/abnormal . MPV (test code = 10.1 fL 9.5-12.9 85544-4) NRBC/100 WBC (test See_Comment [Automat ed code = 7974222026) message] The system which generated this result transmitted reference range : 0.0 - 10.0 /100 WBCs. The refer ence range was not u sed to interpret th is result as normal/abnormal . NRBC x10^3 (test code See_Comment [Auto mated = 8021588905) message] The s ystem which generated this result transmitted reference range : 10*3/?L. The reference range was not used to interpret this result as normal/abnormal . GRAN MAT (NEUT) % 62.7 % (test code = 770-8) IMM GRAN % (test code 0.40 % = 4884167888) LYMPH % (test code = 25.7 % 736-9) MONO % (test code = 7.8 % 5905-5) EOS % (test code = 2.8 % 713-8) BASO % (test code = 0.6 % 706-2) GRAN MAT x10^3(ANC) 8.40 10*3/uL 1.88-7.09 H (test code = 1425967836) IMM GRAN x10^3 (test 0.06 10*3/uL 0-0.06 code = [id number]) LYMPH x10^3 (test code 3.44 10*3/uL 1.32-3.29 H = 731-0) MONO x10^3 (test code 1.04 10*3/uL 0.33-0.92 H = 742-7) EOS x10^3 (test code = 0.38 10*3/uL 0.03-0.39 711-2) BASO x10^3 (test code 0.08 10*3/uL 0.01-0.07 H = 704-7) Lab Interpretation Abnormal (test code = 68747-5) [facility] 2021-06-29 00:00:00 Test Item Value Reference Range Interpretation Comments SARS-CoV-2 INTERPRETATION (test NEGATIVE code = 33124) SOURCE (test code = 89583) NOT SPECIFIED SARS-CoV-2 (COVID-19) by RT-PCR (HIGH RISK)2021-06-29 00:00:00 Test Item Value Reference Range Interpretation Comments SARS-CoV-2 INTERPRETATION (test NEGATIVE code = 34067) SOURCE (test code = 69143) NOT SPECIFIED COMPREHENSIVE METABOLIC [id number] 00:00:00 Test Item Value Reference Range Interpretation Comments GLUCOSE (test code = 2217) 92 MG/DL BUN (test code = 2208) 11 MG/DL CREATININE (test code = 2214) 0.80 MG/DL eGFR AMER. (test code 108 ML/MIN/1.73 = 74063) eGFR NON- AMER. (test 94 ML/MIN/1.73 code = 56566) CALC BUN/CREAT (test code = 14 RATIO [...] code = 2219) 11 U/L COMPREHENSIVE METABOLIC [id number] 00:00:00 Test Item Value Reference Range Interpretation Comments GLUCOSE (test code = 2217) 92 MG/DL BUN (test code = 2208) 11 MG/DL CREATININE (test code = 2214) 0.80 MG/DL eGFR AMER. (test code 108 ML/MIN/1.73 = 24508) eGFR NON- AMER. (test 94 ML/MIN/1.73 code = 45784) CALC BUN/CREAT (test code = 14 RATIO [...] ALT (test code = 2219) 11 U/L [id number] 00:00:00 Test Item Value Reference Range Interpretation Comments AMYLASE (test code = 2205) 52 U/L [id number] 00:00:00 Test Item Value Reference Range Interpretation Comments AMYLASE (test code = 2205) 52 U/L [id number] 00:00:00 Test Item Value Reference Range Interpretation Comments LIPASE (test code = 2057) 20 U/L [id number] 00:00:00 Test Item Value Reference Range Interpretation Comments LIPASE (test code = 2057) 20 U/L [id number] 00:00:00 Test Item Value Reference Range Interpretation Comments LIPASE (test code = 2057) 20 U/L CULTURE, URINE [ADDED]2021-01-20 00:00:00 Test Item Value Reference Range Interpretation Comments CULTURE, URINE (test SPECIMEN NUMBER: code = 12491) [id number] CULTURE, URINE [ADDED]2021-01-20 00:00:00 Test Item Value Reference Range Interpretation Comments CULTURE, URINE (test SPECIMEN NUMBER: code = 31177) [id number] GC, AMPLIFIED, [id number] 00:00:00 Test Item Value Reference Range Interpretation Comments GONORRHEA, NAAT (test code = 37812) NEGATIVE GC, AMPLIFIED, [id number] 00:00:00 Test Item Value Reference Range Interpretation Comments GONORRHEA, NAAT (test code = 28649) NEGATIVE [id number] 00:00:00 Test Item Value Reference Range Interpretation Comments RPR RESULT (test code = NON-REACTIVE 3501) RPR TITER (test code = 3500) NOT INDIC. TITER [id number] 00:00:00 Test Item Value Reference Range Interpretation Comments RPR RESULT (test code = NON-REACTIVE 3501) RPR TITER (test code = 3500) NOT INDIC. TITER [id number] 00:00:00 Test Item Value Reference Range Interpretation Comments RPR RESULT (test code = NON-REACTIVE 3501) RPR TITER (test code = 3500) NOT INDIC. TITER VAGINAL PATHOGENS DNA [id number] 00:00:00 Test Item Value Reference Range Interpretation Comments CONRAD SPECIES (test code = ) NEGATIVE G. VAGINALIS (test code = ) POSITIVE T. VAGINALIS (test code = ) NEGATIVE VAGINAL PATHOGENS DNA [id number] 00:00:00 Test Item Value Reference Range Interpretation Comments CONRAD SPECIES (test code = ) NEGATIVE G. VAGINALIS (test code = 25428) POSITIVE T. VAGINALIS (test code = 82118) NEGATIVE HIV AB/AG COMBO RFLX [id number] 00:00:00 Test Item Value Reference Range Interpretation Comments HIV 1/2 4TH GEN, RFLX CONF (test NON-REACTIVE code = 3514) HIV AB/AG COMBO RFLX [id number] 00:00:00 Test Item Value Reference Range Interpretation Comments HIV 1/2 4TH GEN, RFLX CONF (test NON-REACTIVE code = 3514) ACUTE HEPATITIS [id number] 00:00:00 Test Item Value Reference Range Interpretation Comments HEPATITIS A IgM (test code = NON-REACTIVE 66763) HEPATITIS B CORE IgM (test code NON-REACTIVE = 4644) HEPATITIS B SURF AG (test code = NON-REACTIVE 2739) HEPATITIS C ANTIBODY (test code NON-REACTIVE = 4675) INTERPRETATION HEPATITIS A: (NOTE) (test code = 2552) INTERPRETATION HEPATITIS B: (NOTE) (test code = 31145) INTERPRETATION HEPATITIS C: (NOTE) (test code = 64249) ACUTE HEPATITIS [id number] 00:00:00 Test Item Value Reference Range Interpretation Comments HEPATITIS A IgM (test code = NON-REACTIVE 13135) HEPATITIS B CORE IgM (test code NON-REACTIVE = 4644) HEPATITIS B SURF AG (test code = NON-REACTIVE 2739) HEPATITIS C ANTIBODY (test code NON-REACTIVE = 4675) INTERPRETATION HEPATITIS A: (NOTE) (test code = 2552) INTERPRETATION HEPATITIS B: (NOTE) (test code = 28626) INTERPRETATION HEPATITIS C: (NOTE) (test code = 11045) CHLAMYDIA, AMPLIFIED, [id number] 00:00:00 Test Item Value Reference Range Interpretation Comments CHLAMYDIA, NAAT (test code = 03342) NEGATIVE CHLAMYDIA, AMPLIFIED, [id number] 00:00:00 Test Item Value Reference Range Interpretation Comments CHLAMYDIA, NAAT (test code = 93782) NEGATIVE CULTURE, [id number] 00:00:00 Test Item Value Reference Range Interpretation Comments CULTURE, URINE (test SPECIMEN NUMBER: code = 06958) [id number] CULTURE, [id number] 00:00:00 Test Item Value Reference Range Interpretation Comments CULTURE, URINE (test SPECIMEN NUMBER: code = 15923) [id number] CULTURE, [id number] 00:00:00 Test Item Value Reference Range Interpretation Comments CULTURE, URINE (test SPECIMEN NUMBER: code = 69994) [id number] CULTURE, [id number] 00:00:00 Test Item Value Reference Range Interpretation Comments CULTURE, URINE (test SPECIMEN NUMBER: code = 17186) [id number] SARS-CoV-2 (COVID-19) by RT-PCR (HIGH RISK)2020-11-03 00:00:00 Test Item Value Reference Range Interpretation Comments SARS-CoV-2 INTERPRETATION (test NEGATIVE code = 71225) SOURCE (test code = 00787) NOT SPECIFIED SARS-CoV-2 (COVID-19) by RT-PCR (HIGH RISK)2020-11-03 00:00:00 Test Item Value Reference Range Interpretation Comments SARS-CoV-2 INTERPRETATION (test NEGATIVE code = 78973) SOURCE (test code = 89652) NOT SPECIFIED CHLAMYDIA, AMPLIFIED, [id number] 00:00:00 Test Item Value Reference Range Interpretation Comments CHLAMYDIA, NAAT (test code = 25116) NEGATIVE CHLAMYDIA, AMPLIFIED, [id number] 00:00:00 Test Item Value Reference Range Interpretation Comments CHLAMYDIA, NAAT (test code = 98350) NEGATIVE GC, AMPLIFIED, [id number] 00:00:00 Test Item Value Reference Range Interpretation Comments GONORRHEA, NAAT (test code = 38131) NEGATIVE GC, AMPLIFIED, [id number] 00:00:00 Test Item Value Reference Range Interpretation Comments GONORRHEA, NAAT (test code = 51093) NEGATIVE VAGINAL PATHOGENS DNA [id number] 00:00:00 Test Item Value Reference Range Interpretation Comments CONRAD SPECIES (test code = 65819) NEGATIVE G. VAGINALIS (test code = 94277) POSITIVE T. VAGINALIS (test code = 79404) NEGATIVE VAGINAL PATHOGENS DNA [id number] 00:00:00 Test Item Value Reference Range Interpretation Comments CONRAD SPECIES (test code = 50138) NEGATIVE G. VAGINALIS (test code = 36077) POSITIVE T. VAGINALIS (test code = 89211) NEGATIVE GC, AMPLIFIED, [id number] 00:00:00 Test Item Value Reference Range Interpretation Comments GONORRHEA, TMA (test code = 42737) NEGATIVE [id number] 00:00:00 Test Item Value Reference Range Interpretation Comments RPR RESULT (test code = NON-REACTIVE 3501) RPR TITER (test code = 3500) NOT INDIC. TITER [id number] 00:00:00 Test Item Value Reference Range Interpretation Comments RPR RESULT (test code = NON-REACTIVE 3501) RPR TITER (test code = 3500) NOT INDIC. TITER [id number] 00:00:00 Test Item Value Reference Range Interpretation Comments RPR RESULT (test code = NON-REACTIVE 3501) RPR TITER (test code = 3500) NOT INDIC. TITER HIV AB/AG COMBO RFLX [id number] 00:00:00 Test Item Value Reference Range Interpretation Comments HIV 1/2 4TH GEN, RFLX CONF (test NON-REACTIVE code = 3514) PAP TEST, THINPREP, [id number] 00:00:00 Test Item Value Reference Range Interpretation Comments SOURCE: (test code = Cervical/Endocervical 8001) SLIDES: (test code = 1 8011) LMP: (test code = 8021) 05/11/2020 SPECIMEN ADEQUACY: (test (NOTE) code = 18952) INTERPRETATION: (test NILM/NO EPITH. code = 58961) ABNORMALITY;SEE BELOW THREAD REELER: (test JACKSON Mao(ASCP) code = 8101) LOCATION: (test code = (NOTE) 83951) CPT: (test code = 8140) (NOTE) VAGINAL PATHOGENS DNA [id number] 00:00:00 Test Item Value Reference Range Interpretation Comments CONRAD SPECIES (test code = ) NEGATIVE G. VAGINALIS (test code = 63319) NEGATIVE T. VAGINALIS (test code = 25974) NEGATIVE HIV AB/AG COMBO RFLX [id number] 00:00:00 Test Item Value Reference Range Interpretation Comments HIV 1/2 4TH GEN, RFLX CONF (test NON-REACTIVE code = 3514) VAGINAL PATHOGENS DNA [id number] 00:00:00 Test Item Value Reference Range Interpretation Comments CONRAD SPECIES (test code = 85995) NEGATIVE G. VAGINALIS (test code = 67033) NEGATIVE T. VAGINALIS (test code = 40417) NEGATIVE PAP TEST, THINPREP, [id number] 00:00:00 Test Item Value Reference Range Interpretation Comments SOURCE: (test code = Cervical/Endocervical 8001) SLIDES: (test code = 1 8011) LMP: (test code = 8021) 05/11/2020 SPECIMEN ADEQUACY: (test (NOTE) code = 60191) INTERPRETATION: (test NILM/NO EPITH. code = 86878) ABNORMALITY;SEE BELOW THREAD REELER: (test JACKSON Mao(ASCP) code = 8101) LOCATION: (test code = (NOTE) 23663) CPT: (test code = 8140) (NOTE) ACUTE HEPATITIS [id number] 00:00:00 Test Item Value Reference Range Interpretation Comments HEPATITIS A IgM (test code = NON-REACTIVE 23841) HEPATITIS B CORE IgM (test code NON-REACTIVE = 4644) HEPATITIS B SURF AG (test code = NON-REACTIVE 2739) HEPATITIS C ANTIBODY (test code NON-REACTIVE = 4675) INTERPRETATION HEPATITIS A: (NOTE) (test code = 2552) INTERPRETATION HEPATITIS B: (NOTE) (test code = 78948) INTERPRETATION HEPATITIS C: (NOTE) (test code = 32313) HPV HIGH RISK WITH GENOTYPE, [id number] 00:00:00 Test Item Value Reference Range Interpretation Comments HPV HIGH RISK INTERP (test code = NEGATIVE 37824) HPV 16 (test code = 93521) NEGATIVE HPV 18 (test code = 01793) NEGATIVE HPV, HR, OTHER GENOTYPES (test code NEGATIVE = 24421) HPV HIGH RISK WITH GENOTYPE, [id number] 00:00:00 Test Item Value Reference Range Interpretation Comments HPV HIGH RISK INTERP (test code = NEGATIVE 56360) HPV 16 (test code = 66671) NEGATIVE HPV 18 (test code = 27549) NEGATIVE HPV, HR, OTHER GENOTYPES (test code NEGATIVE = 81633) ACUTE HEPATITIS [id number] 00:00:00 Test Item Value Reference Range Interpretation Comments HEPATITIS A IgM (test code = NON-REACTIVE 60956) HEPATITIS B CORE IgM (test code NON-REACTIVE = 4644) HEPATITIS B SURF AG (test code = NON-REACTIVE 2739) HEPATITIS C ANTIBODY (test code NON-REACTIVE = 4675) INTERPRETATION HEPATITIS A: (NOTE) (test code = 2552) INTERPRETATION HEPATITIS B: (NOTE) (test code = 97708) INTERPRETATION HEPATITIS C: (NOTE) (test code = 53863) CHLAMYDIA, AMPLIFIED, [id number] 00:00:00 Test Item Value Reference Range Interpretation Comments CHLAMYDIA, TMA (test code = 82363) NEGATIVE CHLAMYDIA, AMPLIFIED, [id number] 00:00:00 Test Item Value Reference Range Interpretation Comments CHLAMYDIA, TMA (test code = 85491) NEGATIVE GC, AMPLIFIED, [id number] 00:00:00 Test Item Value Reference Range Interpretation Comments GONORRHEA, TMA (test code = 17523) NEGATIVE [id number] 00:00:00 Test Item Value Reference Range Interpretation Comments PROLACTIN (test code = 2800) 11.0 NG/ML [id number] 00:00:00 Test Item Value Reference Range Interpretation Comments PROLACTIN (test code = 2800) 11.0 NG/ML [id number] 00:00:00 Test Item Value Reference Range Interpretation Comments TSH, THIRD GENERATION (test code 0.793 UIU/ML = 2821) [id number] 00:00:00 Test Item Value Reference Range Interpretation Comments TSH, THIRD GENERATION (test code 0.793 UIU/ML = 2821) [id number] 00:00:00 Test Item Value Reference Range Interpretation Comments TSH, THIRD GENERATION (test code 0.793 UIU/ML = 2821)"
--- NOTE | 2023-06-03 08:28 | EDPHYS ---
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 08:24 The patient presents to the emergency department with bipolar disorder. Onset: The rn symptoms/episode began/occurred at an unknown time. Severity of symptoms: At their worst the symptoms were mild in the emergency department the symptoms are unchanged. The patient has experienced similar episodes in the past. The patient has not recently seen a physician. 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 Reports has bipolar disorder, refuses to take medication because makes her feel like "a zombie", denies suicidal or homicidal ideations. Denies overdose or ETOH/drugs this AM. . Historical: - Allergies: 07:47 Latex, Natural Rubber; ap3 - Home Meds: 07:47 Adderall XR Oral [Active]; ap3 - PMHx: 07:47 Anxiety; Bipolar disorder; Chronic pain; ap3 - PSHx: 07:47 hernia repair; ap3 - Immunization history:: Adult Immunizations unknown. - Social history:: Smoking status: Patient reports the use of cigarette tobacco products, smokes two packs cigarettes per day. - Family history:: not pertinent. - Hospitalizations: : No recent hospitalization is reported. ROS: 08:24 Constitutional: Negative for fever, chills, and weight loss, Eyes: Negative for injury, rn pain, redness, and discharge, Neck: Negative for injury, pain, and swelling, Cardiovascular: Negative for chest pain, palpitations, and edema, Respiratory: Negative for shortness of breath, cough, wheezing, and pleuritic chest pain, Abdomen/GI: Negative for abdominal pain, nausea, vomiting, diarrhea, and constipation, MS/Extremity: Negative for injury and deformity, Skin: Negative for injury, rash, and discoloration, Neuro: Negative for headache, weakness, numbness, tingling, and seizure, Psych: Negative for suicide ideation, homicidal ideation Exam: 08:24 Constitutional: This is a well developed, well nourished patient who is awake, alert, rn and in no acute distress. Cardiovascular: Regular rate and rhythm. No pulse deficits. Respiratory: No increased work of breathing, no retractions or nasal flaring. Neuro: Awake and alert, GCS 15, oriented to person, place, time, and situation. Vital Signs: 07:46 BP 139 / 101; Pulse 98; Resp 19; Temp 98.2; Pulse Ox 100% ; Weight 67.13 kg (M); ap3 08:28 BP 128 / 77; Pulse 76; Resp 18 S; Pulse Ox 99% on R/A; aa5 MDM: 07:34 Patient medically screened. rn 08:24 Differential diagnosis: bipolar disorder, verónica, depression, non-compliance with rn medications prescribed. Data reviewed: vital signs, nurses notes, and as a result, I will discharge patient. Counseling: I had a detailed discussion with the patient and/or guardian regarding: the historical points, exam findings, and any diagnostic results supporting the discharge/admit diagnosis, the need for outpatient follow up, to return to the emergency department if symptoms worsen or persist or if there are any questions or concerns that arise at home. Special discussion: I discussed with the patient/guardian in detail that at this point there is no indication for admission to the hospital. It is understood, however, that if the symptoms persist or worsen the patient needs to return immediately for re-evaluation. Based on the history and exam findings, there is no indication for further emergent testing or inpatient evaluation. I discussed with the patient/guardian the need to see the psychiatrist for further evaluation of the symptoms. ED course: Pt without suicidal or homicidal ideations, denies intent to harm herself or others, also declines medication or recommendations to see a psychiatrist. Stable vitals, and no overdose. Will dc home with return precautions. . Administered Medications: No medications were administered Disposition Summary: 06/03/23 08:28 Discharge Ordered Location: Home rn Problem: chronic rn Symptoms: are unchanged rn Condition: Stable rn Diagnosis - Bipolar disorder, unspecified rn Followup: rn - With: Private Physician - When: As needed - Reason: Recheck today's complaints, Re-evaluation by your physician Discharge Instructions: - Discharge Summary Sheet rn - Verónica rn - Managing Bipolar Disorder rn Forms: - Medication Reconciliation Form rn - Thank You Letter rn - Antibiotic photo intern - Prescription Opioid Use rn - Patient Portal Instructions rn - Leadership Thank You Letter rn Signatures: Bucky Nichols MD MD rn Calderon, Audri RN RN aa5 Flor Lala RN RN ap3
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
[2023-06-03 08:51] VITALS: BP 139/101; TEMP 98.2; O2SAT 100
== END 2023-06-03 08:43 | disposition home or self-care (01) ==
LOC: ER 07:32
DX: F31.9 Bipolar disorder, unspecified (principal); F17.210 Nicotine dependence, cigarettes, uncomplicated
CPT/HCPCS: 99282

== ENCOUNTER 2023-06-16 08:30 | Emergency (ER) | payer OTHER ==
--- OUTSIDE RECORDS SUMMARY | 2023-06-16 08:37 | XMS REPORT | Continuity of Care Document ---
:1980 Author Organization [facility] t Address [address] [place] [address] Care Team Providers Name Role Phone Otto Torres Primary Care Physician [phone] Laura Beltran MD Attending Clinician LAURA BELTRAN Attending Clinician Unavailable Feroz Barakat MD Attending Clinician FEROZ BARAKAT Attending Clinician Unavailable YESESNIA CALL Attending Clinician Unavailable [facility] Attending Clinician Unavailable Unknown, Attending Attending Clinician Unavailable Yessenia Cruz Attending Clinician UNKNOWN, ATTENDING Attending Clinician Unavailable Vivienne Campuzano Attending Clinician VIVIENNE HOLT Attending Clinician Unavailable Provider, [facility] Attending Clinician Unavailable FLOR INFANTE Attending Clinician Unavailable Flor Infante MD Attending Clinician Doctor Unassigned, [place] Attending Clinician Unavailable Trena [place] Attending Clinician STU BORGES Attending Clinician Unavailable TRENA RUSSELL Attending Clinician Unavailable VAUGHN TAN Attending Clinician Unavailable Vaughn Iqbal Attending Clinician ARNEL ALARCON Attending Clinician Unavailable MILA ROLDAN Attending Clinician Unavailable Jamar DISTRIBUTION TECHNICIAN, Mila Attending Clinician MUNDO SOMERS Attending Clinician Unavailable oYvany TAYLOR, Mundo Attending Clinician Luis Fernando THORNTON, Lora Attending Clinician Unavailable Marc Khoury MD Attending Clinician Marilyn ANGELP, Nayla Larios Attending Clinician JORDAN HALEY Attending Clinician Unavailable Jhoana Townsend Attending Clinician JHOANA SAINZ Attending Clinician Unavailable Marly, [facility] Attending Clinician Unavailable Cristal Cochran MD Attending Clinician [phone] CRISTAL COCHRAN Attending Clinician Unavailable KELSI CORBETT Attending Clinician Unavailable Kelsi Corbett DO Attending Clinician JHOANA SAINZ Admitting Clinician Unavailable Payers Payer Name Policy Type Policy Number Effective Date Expiration Date [facility] [id number] 2017 [facility] MEDICAID 00:00:00 [facility] [id number] [facility] 00:00:00 MEDICAID OF [place] [id number] 2017 00:00:00 Problems Condition Condition Condition Status Onset Resolution Last Treating Co mments Source Name Details Category Date Date Treatment Clinician Date Cellulitis Cellulitis Disease Active U nivers of left of left 2- ity of lower lower 00:00: [place] extremity extremity 00 [facility] Branch Abscess Abscess Disease Active Univers 2- ity of 00:00: [place] 00 [facility] Branch Skin sore Skin sore Disease Active Uni vers 2- ity of 00:00: [place] 00 [facility] Branch Follow-up Follow-up Disease Active Uni vers exam exam 2- ity of 00:00: [place] 00 [facility] Branch Bipolar 1 Bipolar 1 Disease Active Uni vers disorder, disorder, 9-29 ity of manic, manic, 00:00: [place] mild mild 00 Medical Branch Attention Attention Disease Active Uni vers deficit deficit 8-09 ity of disorder disorder 00:00: [place] (ADD) in (ADD) in 00 Medica l adult adult Branch Allergies, Adverse Reactions, Alerts Allergy Allergy Status Severity Reaction(s) Onset Inactive Treating Comm ents Source Name Type Date Date Clinician NO KNOWN Drug Active Univers ALLERGIE Class ity of [facility] Social History Social Habit Start Date Stop Date Quantity Comments Source Gender identity Universit y of [facility] Sexual orientation Univer sity [facility] Alcohol intake 2023-02-15 2023-02-15 Ex-drinker [facility] 00:00:00 00:00:00 (finding) [facility] Exposure to 2023-01-28 2023-02-07 Not sure [facility] SARS-CoV-2 (event) 00:00:00 09:18:[address] [facility] Tobacco use and 2022-07-09 2022-07-09 Smokeless Universit y of exposure 00:00:00 00:00:00 tobacco non-user [facility] History of Social 2022-06-04 2022-06-04 Univers ity of function 00:00:00 00:00:[address] [facility] History of tobacco 2010-03-28 Cigarette Smoker University of use 00:00:[address] [facility] Sex Assigned At [birth year] Universit y of 00:00:00 00:00:[address] [facility] Smoking Status Start Date Stop Date Source Ex-smoker 2022-07-09 00:00:00 2022-07-09 00:00:00 Universi ty [facility] Medications Ordered Filled Start Stop Current Ordering Indication Dosage Frequency Signature Comments Components Source Medication Medication Date Date Medication? Clinician (SIG) Name Name dextroamphe Yes [id number] 30mg Take 1 Univers tamine-amph 8-21 tablet by ity of etamine 00:00: mouth in [place] (ADDERALL) 00 the Medical 30 mg morning Branch tablet and 1 tablet in the evening. dextroamphe Yes [id number] 30mg Take 1 Univers tamine-amph 8-21 tablet by ity of etamine 00:00: mouth in [place] (ADDERALL) 00 the Medical 30 mg morning Branch tablet and 1 tablet in the evening. VENTOLIN Yes [id number] INHALE 2 U nivers HFA 90 8-18 PUFFS BY ity of mcg/actuati 00:00: MOUTH [place] on inhaler 00 EVERY 6 Medica l HOURS Branch NEEDED FOR WHEEZING VENTOLIN 2023-0 Yes [id number] INHALE 2 U nivers HFA 90 8-18 PUFFS BY ity of mcg/actuati 00:00: MOUTH [place] on inhaler 00 EVERY 6 Medica l HOURS Branch NEEDED FOR WHEEZING VENTOLIN 2023-0 Yes [id number] INHALE 2 U nivers HFA 90 8-18 PUFFS BY ity of mcg/actuati 00:00: MOUTH [place] on inhaler 00 EVERY 6 Medica l HOURS Branch NEEDED FOR WHEEZING VENTOLIN 2023-0 Yes [id number] INHALE 2 U nivers HFA 90 7-22 PUFFS BY ity of mcg/actuati 00:00: MOUTH [place] on inhaler 00 EVERY 6 Medica l HOURS Branch NEEDED FOR WHEEZING VENTOLIN 2023-0 Yes [id number] INHALE 2 U nivers HFA 90 7-22 PUFFS BY ity of mcg/actuati 00:00: MOUTH [place] on inhaler 00 EVERY 6 Medica l HOURS Branch NEEDED FOR WHEEZING VENTOLIN 2023-0 Yes [id number] INHALE 2 U nivers HFA 90 7-22 PUFFS BY ity of mcg/actuati 00:00: MOUTH [place] on inhaler 00 EVERY 6 Medica l HOURS Branch NEEDED FOR WHEEZING VENTOLIN 2023-0 2023- No [id number] INHALE 2 Univers HFA 90 7-22 08-18 PUFFS BY ity of mcg/actuati 00:00: 00:00 M[place]TH [place] inhaler 00 :00 EVERY 6 Medica l HOURS Branch NEEDED FOR WHEEZING dextroamphe 2023-0 Yes [id number] 30mg Take 1 Univers tamine-amph 7-17 tablet by ity of etamine 00:00: mouth in [place] (ADDERALL) 00 the Medical 30 mg morning Branch tablet and 1 tablet in the evening. dextroamphe 2023-0 Yes [id number] 30mg Take 1 Univers tamine-amph 7-17 tablet by ity of etamine 00:00: mouth in [place] (ADDERALL) 00 the Medical 30 mg morning Branch tablet and 1 tablet in the evening. dextroamphe 2023-0 Yes [id number] 30mg Take 1 Univers tamine-amph 7-17 tablet by ity of etamine 00:00: mouth in [place] (ADDERALL) 00 the Medical 30 mg morning Branch tablet and 1 tablet in the evening. dextroamphe 2023-0 Yes [id number] 30mg Take 1 Univers tamine-amph 7-17 tablet by ity of etamine 00:00: mouth in [place] (ADDERALL) 00 the Medical 30 mg morning Branch tablet and 1 tablet in the evening. dextroamphe 2023-0 Yes [id number] 30mg Take 1 Univers tamine-amph 7-17 tablet by ity of etamine 00:00: mouth in [place] (ADDERALL) 00 the Medical 30 mg morning Branch tablet and 1 tablet in the evening. dextroamphe 2023-0 2023- No [id number] 30mg Take 1 Univers tamine-amph 7-17 08-21 tablet by it y of etamine 00:00: 00:00 mouth in [place] (ADDERALL) 00 :00 the Medical 30 mg morning Branch tablet and 1 tablet in the evening. VENTOLIN 2023-0 Yes [id number] INHALE 2 U nivers HFA 90 6-20 PUFFS BY ity of mcg/actuati 00:00: MOUTH [place] on inhaler 00 EVERY 6 Medica l HOURS Branch NEEDED FOR WHEEZING VENTOLIN 2023-0 Yes [id number] INHALE 2 U nivers HFA 90 6-20 PUFFS BY ity of mcg/actuati 00:00: MOUTH [place] on inhaler 00 EVERY 6 Medica l HOURS Branch NEEDED FOR WHEEZING VENTOLIN 2023-0 2023- No [id number] INHALE 2 Univers HFA 90 6-20 07-22 PUFFS BY ity of mcg/actuati 00:00: 00:00 [place]TH [place] inhal[place] 00 :00 EVERY 6 Medica l HOURS Branch NEEDED FOR WHEEZING dextroamphe 2023-0 Yes [id number] 30mg Take 1 Univers tamine-amph 6-15 tablet by ity of etamine 00:00: mouth in [place] (ADDERALL) 00 the Medical 30 mg morning Branch tablet and 1 tablet in the evening. dextroamphe 2023-0 Yes [id number] 30mg Take 1 Univers tamine-amph 6-15 tablet by ity of etamine 00:00: mouth in [place] (ADDERALL) 00 the Medical 30 mg morning Branch tablet and 1 tablet in the evening. dextroamphe 2022-0 3- No [id number] 30mg Take 1 Univers tamine-amph 6-15 07-17 tablet by it y of etamine 00:00: 00:00 mouth in [place] (ADDERALL) 00 :00 the Medical 30 mg morning Branch tablet and 1 tablet in the evening. dextroamphe 2022-0 Yes [id number] 30mg Take 1 Univers tamine-amph 5-22 tablet by ity of etamine 00:00: mouth in [place] (ADDERALL) 00 the Medical 30 mg morning Branch tablet and 1 tablet in the evening. dextroamphe 2022-0 Yes [id number] 30mg Take 1 Univers tamine-amph 5-22 tablet by ity of etamine 00:00: mouth in [place] (ADDERALL) 00 the Medical 30 mg morning Branch tablet and 1 tablet in the evening. dextroamphe 2022-0 3- No [id number] 30mg Take 1 Univers tamine-amph 5-22 06-15 tablet by it y of etamine 00:00: 00:00 mouth in [place] (ADDERALL) 00 :00 the Medical 30 mg morning Branch tablet and 1 tablet in the evening. VENTOLIN 2023-0 Yes [id number] INHALE 2 U nivers HFA 90 5-20 PUFFS BY ity of mcg/actuati 00:00: MOUTH [place] on inhaler 00 EVERY 6 Medica l HOURS Branch NEEDED FOR WHEEZING VENTOLIN 2023-0 Yes [id number] INHALE 2 U nivers HFA 90 5-20 PUFFS BY ity of mcg/actuati 00:00: MOUTH [place] on inhaler 00 EVERY 6 Medica l HOURS Branch NEEDED FOR WHEEZING VENTOLIN 2023-0 Yes [id number] INHALE 2 U nivers HFA 90 5-20 PUFFS BY ity of mcg/actuati 00:00: MOUTH [place] on inhaler 00 EVERY 6 Medica l HOURS Branch NEEDED FOR WHEEZING VENTOLIN 2023-0 2023- No [id number] INHALE 2 Univers HFA 90 5-20 06-20 PUFFS BY ity of mcg/actuati 00:00: 00:00 M[place]TH [place] inhaler 00 :00 EVERY 6 Medica l HOURS Branch NEEDED FOR WHEEZING ketorolac 2023-0 2023- No [id number] 30mg Un ninoska (TORADOL) 02-07 ity of injection 15:45: 14:58 [place] 30 mg 00 :00 Medical Branch ketorolac 2022- No [id number] 30mg 30 mg, Univers (TORADOL) 02-07 Intramuscu ity of injection 15:45: 14:58 [place], ONCE, [place] 30 mg 00 :00 1 dose, On Medical Fri Branch 02/07/23 at 1045, Routine promethazin 2022- No [id number] 5mL Take 5 mL Univers e-dextromet 02-07 by mouth 4 i ty of horphan 00:00: 04:59 (four) [place] 6.25-15 00 :00 times Medical mg/5 mL daily for Branch syrup 10 days. promethazin 2022- No [id number] 5mL Take 5 mL Univers e-dextromet 02-07 by mouth 4 i ty of horphan 00:00: 04:59 (four) [place] 6.25-15 00 :00 times Medical mg/5 mL daily for Branch syrup 10 days. oseltamivir 2022- No [id number] 75mg Take 1 Univers (TAMIFLU) 02-07 capsule by ity of 75 mg 00:00: 04:59 mouth in [place] capsule 00 :00 the Medical morning Branch and 1 capsule in the evening. Do all this for 5 days. traZODone 2022- No 100mg Take 1 Univ ers 100 mg 4-17 -17 tablet by ity of tablet 10:06: 00:00 mouth at [place] 00 :00 bedtime. Medical Branch traZODone 2022- No 100mg Take 1 Univ ers 100 mg 4-17 -17 tablet by ity of tablet 10:06: 00:00 mouth at [place] 00 :00 bedtime. Medical Branch dextroamphe Yes [id number] 30mg Take 1 Univers tamine-amph 4-17 tablet by ity of etamine 00:00: mouth in [place] (ADDERALL) 00 the Medical 30 mg morning Branch tablet and 1 tablet in the evening. dextroamphe 2023-0 Yes [id number] 30mg Take 1 Univers tamine-amph 4-17 tablet by ity of etamine 00:00: mouth in [place] (ADDERALL) 00 the Medical 30 mg morning Branch tablet and 1 tablet in the evening. dextroamphe 3-0 Yes [id number] 30mg Take 1 Univers tamine-amph 4-17 tablet by ity of etamine 00:00: mouth in [place] (ADDERALL) 00 the Medical 30 mg morning Branch tablet and 1 tablet in the evening. dextroamphe 2023-0 Yes [id number] 30mg Take 1 Univers tamine-amph 4-17 tablet by ity of etamine 00:00: mouth in [place] (ADDERALL) 00 the Medical 30 mg morning Branch tablet and 1 tablet in the evening. dextroamphe 3-0 Yes [id number] 30mg Take 1 Univers tamine-amph 4-17 tablet by ity of etamine 00:00: mouth in [place] (ADDERALL) 00 the Medical 30 mg morning Branch tablet and 1 tablet in the evening. dextroamphe 3-0 Yes [id number] 30mg Take 1 Univers tamine-amph 4-17 tablet by ity of etamine 00:00: mouth in [place] (ADDERALL) 00 the Medical 30 mg morning Branch tablet and 1 tablet in the evening. dextroamphe 3-0 Yes [id number] 30mg Take 1 Univers tamine-amph 4-17 tablet by ity of etamine 00:00: mouth in [place] (ADDERALL) 00 the Medical 30 mg morning Branch tablet and 1 tablet in the evening. dextroamphe 2023-0 3- No [id number] 30mg Take 1 Univers tamine-amph 4-17 05-22 tablet by it y of etamine 00:00: 00:00 mouth in [place] (ADDERALL) 00 :00 the Medical 30 mg morning Branch tablet and 1 tablet in the evening. dextroamphe 2023-0 Yes [id number] 30mg Take 1 Univers tamine-amph 3-20 tablet by ity of etamine 00:00: mouth in [place] (ADDERALL) 00 the Medical 30 mg morning Branch tablet and 1 tablet in the evening. dextroamphe 2023-0 Yes [id number] 30mg Take 1 Univers tamine-amph 3-20 tablet by ity of etamine 00:00: mouth in [place] (ADDERALL) 00 the Medical 30 mg morning Branch tablet and 1 tablet in the evening. dextroamphe 2023-0 3- No [id number] 30mg Take 1 Univers tamine-amph 3-20 04-17 tablet by it y of etamine 00:00: 00:00 mouth in [place] (ADDERALL) 00 :00 the Medical 30 mg morning Branch tablet and 1 tablet in the evening. dextroamphe 2023-0 3- No [id number] 30mg Take 1 Univers tamine-amph 3-20 04-17 tablet by it y of etamine 00:00: 00:00 mouth in [place] (ADDERALL) 00 :00 the Medical 30 mg morning Branch tablet and 1 tablet in the evening. promethazin 3-0 3- No [id number] 5mL Take 5 mL Univers e-dextromet 3-18 -29 by mouth 4 i ty of horphan 00:00: 04:59 (four) [place] 6.25-15 00 :00 times Medical mg/5 mL daily for Branch syrup 10 days. promethazin 2023-0 3- No [id number] 5mL Take 5 mL Univers e-dextromet 3-18 -29 by mouth 4 i ty of horphan 00:00: 04:59 (four) [place] 6.25-15 00 :00 times Medical mg/5 mL daily for Branch syrup 10 days. traZODone 2023-0 Yes 100mg Take 1 Unive rs 100 mg 3-17 tablet by ity of tablet 17:01: mouth at [place] [address] bedtime. Medical Branch traZODone 2023-0 Yes 100mg Take 1 Unive rs 100 mg 3-17 tablet by ity of tablet 17:01: mouth at [place] [address] bedtime. Medical Branch traZODone 2023-0 Yes 100mg Take 1 Unive rs 100 mg 3-17 tablet by ity of tablet 17:01: mouth at [place] [address] bedtime. Medical Branch traZODone 2023-0 Yes 100mg Take 1 Unive rs 100 mg 3-17 tablet by ity of tablet 17:01: mouth at [place] [address] bedtime. Medical Branch traZODone 2023-0 Yes 100mg Take 1 Unive rs 100 mg 3-17 tablet by ity of tablet 17:01: mouth at [place] 55 bedtime. Medical Branch albuterol 2022-0 Yes [id number] 2{puff} Inhale 2 Univers 90 3-17 Puffs ity of mcg/actuati 00:00: every 6 Jorge Alberto as on inhaler 00 (six) Medical hours as Branch needed for Wheezing. triamcinolo 2022-0 Yes [id number] Apply to [facility] 3-17 area(s) 2 ity of acetonide 00:00: (two) [place] 0.1 % cream 00 times Medical daily. Branch albuterol 2022-0 Yes [id number] 2{puff} Inhale 2 Univers 90 3-17 Puffs ity of mcg/actuati 00:00: every 6 [place] Alber[place] as on inhaler 00 (six) Medical hours as Branch needed for Wheezing. triamcinolo 2022-0 Yes [id number] Apply to [facility] 3- area(s) 2 ity of acetonide 00:00: (two) [place] 0.1 % cream 00 times Medical daily. Branch albuterol 2022-0 Yes [id number] 2{puff} Inhale 2 Univers 90 3-17 Puffs ity of mcg/actuati 00:00: every 6 [place] Alber[place] as on inhaler 00 (six) Medical hours as Branch needed for Wheezing. triamcinolo 2022-0 Yes [id number] Apply to [facility] 3-17 area(s) 2 ity of acetonide 00:00: (two) [place] 0.1 % cream 00 times Medical daily. Branch albuterol 2022-0 Yes [id number] 2{puff} Inhale 2 Univers 90 3-17 Puffs ity of mcg/actuati 00:00: every 6 [place] as on inhaler 00 (six) Medical hours as Branch needed for Wheezing. triamcinolo 2022-0 Yes [id number] Apply to [facility] 3-17 area(s) 2 ity of acetonide 00:00: (two) [place] 0.1 % cream 00 times Medical daily. Branch albuterol 2022-0 Yes [id number] 2{puff} Inhale 2 Univers 90 3-17 Puffs ity of mcg/actuati 00:00: every 6 [place] as on inhaler 00 (six) Medical hours as Branch needed for Wheezing. triamcinolo 2022-0 Yes [id number] Apply to [facility] 3-17 area(s) 2 ity of acetonide 00:00: (two) [place] 0.1 % cream 00 times Medical daily. Branch albuterol 2022-0 Yes [id number] 2{puff} Inhale 2 Univers 90 3-17 Puffs ity of mcg/actuati 00:00: every 6 [place] as on inhaler 00 (six) Medical hours as Branch needed for Wheezing. triamcinolo 2022-0 Yes [id number] Apply to Univers ne 3-17 area(s) 2 ity of acetonide 00:00: (two) [place] 0.1 % cream 00 times Medical daily. Branch albuterol 2022-0 Yes [id number] 2{puff} Inhale 2 Univers 90 3-17 Puffs ity of mcg/actuati 00:00: every 6 [place] Alber[place] as on inhaler 00 (six) Medical hours as Branch needed for Wheezing. triamcinolo 2022-0 Yes [id number] Apply to [facility] ne 3-17 area(s) 2 ity of acetonide 00:00: (two) [place] 0.1 % cream 00 times Medical daily. Branch albuterol 2022-0 Yes [id number] 2{puff} Inhale 2 Univers 90 3-17 Puffs ity of mcg/actuati 00:00: every 6 [place] as on inhaler 00 (six) Medical hours as Branch needed for Wheezing. triamcinolo 2022-0 Yes [id number] Apply to [facility] ne 3-17 area(s) 2 ity of acetonide 00:00: (two) [place] 0.1 % cream 00 times Medical daily. Branch albuterol 2022-0 Yes [id number] 2{puff} Inhale 2 Univers 90 3-17 Puffs ity of mcg/actuati 00:00: every 6 [place] as on inhaler 00 (six) Medical hours as Branch needed for Wheezing. triamcinolo 2022-0 Yes [id number] Apply to [facility] ne 3-17 area(s) 2 ity of acetonide 00:00: (two) [place] 0.1 % cream 00 times Medical daily. Branch albuterol 2022-0 Yes [id number] 2{puff} Inhale 2 Univers 90 3-17 Puffs ity of mcg/actuati 00:00: every 6 [place] Alber[place] as on inhaler 00 (six) Medical hours as Branch needed for Wheezing. triamcinolo 2022-0 Yes [id number] Apply to [facility] 3-17 area(s) 2 ity of acetonide 00:00: (two) [place] 0.1 % cream 00 times Medical daily. Branch albuterol 2022-0 Yes [id number] 2{puff} Inhale 2 Univers 90 3-17 Puffs ity of mcg/actuati 00:00: every 6 [place] Alber[place] as on inhaler 00 (six) Medical hours as Branch needed for Wheezing. triamcinolo 2022-0 Yes [id number] Apply to [facility] 3-17 area(s) 2 ity of acetonide 00:00: (two) [place] 0.1 % cream 00 times Medical daily. Branch albuterol 2022-0 Yes [id number] 2{puff} Inhale 2 Univers 90 3-17 Puffs ity of mcg/actuati 00:00: every 6 [place] Alber[place] as on inhaler 00 (six) Medical hours as Branch needed for Wheezing. triamcinolo 2022-0 Yes [id number] Apply to [facility] 3-17 area(s) 2 ity of acetonide 00:00: (two) [place] 0.1 % cream 00 times Medical daily. Branch albuterol 2022-0 Yes [id number] 2{puff} Inhale 2 Univers 90 3-17 Puffs ity of mcg/actuati 00:00: every 6 [place] Alber[place] as on inhaler 00 (six) Medical hours as Branch needed for Wheezing. triamcinolo 2022-0 Yes [id number] Apply to [facility] 3-17 area(s) 2 ity of acetonide 00:00: (two) [place] 0.1 % cream 00 times Medical daily. Branch albuterol 2022-0 Yes [id number] 2{puff} Inhale 2 Univers 90 3-17 Puffs ity of mcg/actuati 00:00: every 6 [place] Alber[place] as on inhaler 00 (six) Medical hours as Branch needed for Wheezing. triamcinolo 2022-0 Yes [id number] Apply to [facility] ne 3-17 area(s) 2 ity of acetonide 00:00: (two) [place] 0.1 % cream 00 times Medical daily. Branch albuterol 2022-0 Yes [id number] 2{puff} Inhale 2 Univers 90 3-17 Puffs ity of mcg/actuati 00:00: every 6 [place] Alberto as on inhaler 00 (six) Medical hours as Branch needed for Wheezing. triamcinolo 2023-0 Yes [id number] Apply to Univers ne 3-17 area(s) 2 ity of acetonide 00:00: (two) [place] 0.1 % cream 00 times Medical daily. Branch triamcinolo 2023-0 Yes [id number] Apply to Univers ne 3-17 area(s) 2 ity of acetonide 00:00: (two) [place] 0.1 % cream 00 times Medical daily. Branch triamcinolo 3-0 Yes [id number] Apply to Univers ne 3-17 area(s) 2 ity of acetonide 00:00: (two) [place] 0.1 % cream 00 times Medical daily. Branch triamcinolo 3-0 Yes [id number] Apply to Univers ne 3-17 area(s) 2 ity of acetonide 00:00: (two) [place] 0.1 % cream 00 times Medical daily. Branch benzonatate 3-0 Yes [id number] 200mg Take 2 Univers 100 mg 3-17 capsules ity of capsule 00:00: by mouth [place] 00 every 8 Medical (eight) Branch hours as needed for Cough. albuterol 2023-0 Yes [id number] 2{puff} Inhale 2 Univers 90 3-17 Puffs ity of mcg/actuati 00:00: every 6 [place] Alber[place] as on inhaler 00 (six) Medical hours as Branch needed for Wheezing. triamcinolo 2023-0 Yes [id number] Apply to Univers ne 3-17 area(s) 2 ity of acetonide 00:00: (two) [place] 0.1 % cream 00 times Medical daily. Branch benzonatate 2022-0 Yes [id number] 200mg Take 2 Univers 100 mg 3-17 capsules ity of capsule 00:00: by mouth [place] 00 every 8 Medical (eight) Branch hours as needed for Cough. albuterol 2023-0 Yes [id number] 2{puff} Inhale 2 Univers 90 3-17 Puffs ity of mcg/actuati 00:00: every 6 [place] Alber[place] as on inhaler 00 (six) Medical hours as Branch needed for Wheezing. triamcinolo 2023-0 Yes [id number] Apply to Univers ne 3-17 area(s) 2 ity of acetonide 00:00: (two) [place] 0.1 % cream 00 times Medical daily. Branch benzonatate 2022-0 Yes [id number] 200mg Take 2 Univers 100 mg 3-17 capsules ity of capsule 00:00: by mouth [place] 00 every 8 Medical (eight) Branch hours as needed for Cough. albuterol 2022-0 Yes [id number] 2{puff} Inhale 2 Univers 90 3-17 Puffs ity of mcg/actuati 00:00: every 6 Jorge Alberto as on inhaler 00 (six) Medical hours as Branch needed for Wheezing. triamcinolo 2022-0 Yes [id number] Apply to Univers ne 3-17 area(s) 2 ity of acetonide 00:00: (two) [place] 0.1 % cream 00 times Medical daily. Branch benzonatate 2022-0 Yes [id number] 200mg Take 2 Univers 100 mg 3-17 capsules ity of capsule 00:00: by mouth [place] 00 every 8 Medical (eight) Branch hours as needed for Cough. albuterol 2022-0 Yes [id number] 2{puff} Inhale 2 Univers 90 3-17 Puffs ity of mcg/actuati 00:00: every 6 Jorge Alberto as on inhaler 00 (six) Medical hours as Branch needed for Wheezing. triamcinolo 2022-0 Yes [id number] Apply to Univers ne 3-17 area(s) 2 ity of acetonide 00:00: (two) [place] 0.1 % cream 00 times Medical daily. Branch albuterol 2022-0 2023- No [id number] 2{puff} Inhale 2 Univers 90 3-17 08-18 Puffs ity of mcg/actuati 00:00: 00:00 every 6 [place] on inhaler 00 :00 (six) Medical hours as Branch needed for Wheezing. benzonatate 2023-0 2023- No [id number] 200mg Take 2 Univers 100 mg 3-17 04-17 capsules ity of capsule 00:00: 00:00 by mouth [place] 00 :00 every 8 Medical (eight) Branch hours as needed for Cough. benzonatate 2023-0 2023- No [id number] 200mg Take 2 Univers 100 mg 3-17 04-17 capsules ity of capsule 00:00: 00:00 by mouth [place] 00 :00 every 8 Medical (eight) Branch hours as needed for Cough. predniSONE 2022-0 2023- No [id number] 20mg Take 1 Univers 20 mg 3-17 -23 tablet by ity of tablet 00:00: 04:59 mouth in [place] 00 :00 the Medical morning Branch for 5 days. predniSONE 2022-0 2023- No [id number] 20mg Take 1 Univers 20 mg 3-17 -23 tablet by ity of tablet 00:00: 04:59 mouth in [place] 00 :00 the Medical morning Branch for 5 days. predniSONE 2022-0 2023- No [id number] 20mg Take 1 Univers 20 mg 3-17 -23 tablet by ity of tablet 00:00: 04:59 mouth in [place] 00 :00 the Medical morning Branch for 5 days. predniSONE 2022-0 2023- No [id number] 20mg Take 1 Univers 20 mg 3-17 -23 tablet by ity of tablet 00:00: 04:59 mouth in [place] 00 :00 the Medical morning Branch for 5 days. albuterol 2022-0 Yes [id number] INHALE 2 Univers (VENTOLIN 3-14 PUFFS BY ity of HFA) 90 00:00: MOUTH [place] mcg/actuati 00 EVERY 6 Medic al on inhaler HOURS Branc h NEEDED FOR WHEEZING albuterol 2022-0 Yes [id number] INHALE 2 Univers (VENTOLIN 3-14 PUFFS BY ity of HFA) 90 00:00: MOUTH [place] mcg/actuati 00 EVERY 6 Medic al on inhaler HOURS Branc h NEEDED FOR WHEEZING albuterol 2022-0 Yes [id number] INHALE 2 [facility] (VENTOLIN 3-14 PUFFS BY ity of HFA) 90 00:00: MOUTH [place] mcg/actuati 00 EVERY 6 Medic al on inhaler HOURS Branc h NEEDED FOR WHEEZING albuterol 2022-0 Yes [id number] INHALE 2 [facility] (VENTOLIN 3-14 PUFFS BY ity of HFA) 90 00:00: MOUTH [place] mcg/actuati 00 EVERY 6 Medic al on inhaler HOURS Branc h NEEDED FOR WHEEZING albuterol 2022-0 Yes [id number] INHALE 2 [facility] (VENTOLIN 3-14 PUFFS BY ity of HFA) 90 00:00: MOUTH [place] mcg/actuati 00 EVERY 6 Medic al on inhaler HOURS Branc h NEEDED FOR WHEEZING albuterol 2022-0 Yes [id number] INHALE 2 [facility] (VENTOLIN 3-14 PUFFS BY ity of HFA) 90 00:00: MOUTH [place] mcg/actuati 00 EVERY 6 Medic al on inhaler HOURS Branc h NEEDED FOR WHEEZING albuterol 2022-0 Yes [id number] INHALE 2 [facility] (VENTOLIN 3-14 PUFFS BY ity of HFA) 90 00:00: MOUTH [place] mcg/actuati 00 EVERY 6 Medic al on inhaler HOURS Branc h NEEDED FOR WHEEZING albuterol 2022-0 Yes [id number] INHALE 2 [facility] (VENTOLIN 3-14 PUFFS BY ity of HFA) 90 00:00: MOUTH [place] mcg/actuati 00 EVERY 6 Medic al on inhaler HOURS Branc h NEEDED FOR WHEEZING albuterol 2022-0 Yes [id number] INHALE 2 [facility] (VENTOLIN 3-14 PUFFS BY ity of HFA) 90 00:00: MOUTH [place] mcg/actuati 00 EVERY 6 Medic al on inhaler HOURS Branc h NEEDED FOR WHEEZING albuterol 2022-0 Yes [id number] INHALE 2 [facility] (VENTOLIN 3-14 PUFFS BY ity of HFA) 90 00:00: MOUTH [place] mcg/actuati 00 EVERY 6 Medic al on inhaler HOURS Branc h NEEDED FOR WHEEZING albuterol 2022-0 Yes [id number] INHALE 2 [facility] (VENTOLIN 3-14 PUFFS BY ity of HFA) 90 00:00: MOUTH [place] mcg/actuati 00 EVERY 6 Medic al on inhaler HOURS Branc h NEEDED FOR WHEEZING albuterol 2022-0 Yes [id number] INHALE 2 [facility] (VENTOLIN 3-14 PUFFS BY ity of HFA) 90 00:00: MOUTH [place] mcg/actuati 00 EVERY 6 Medic al on inhaler HOURS Branc h NEEDED FOR WHEEZING albuterol 2022-0 Yes [id number] INHALE 2 [facility] (VENTOLIN 3-14 PUFFS BY ity of HFA) 90 00:00: MOUTH [place] mcg/actuati 00 EVERY 6 Medic al on inhaler HOURS Branc h NEEDED FOR WHEEZING albuterol 2022-0 Yes [id number] INHALE 2 [facility] (VENTOLIN 3-14 PUFFS BY ity of HFA) 90 00:00: MOUTH [place] mcg/actuati 00 EVERY 6 Medic al on inhaler HOURS Branc h NEEDED FOR WHEEZING albuterol 2022-0 3- No [id number] INHALE 2 [facility] (VENTOLIN 3-14 05-20 PUFFS BY ity o f HFA) 90 00:00: 23:29 MOUTH [place] mcg/actuati 00 :11 EVERY 6 Medic al on inhaler HOURS Branc h NEEDED FOR WHEEZING dextroamphe 2022-0 Yes [id number] 30mg Take 1 [facility] tamine-amph 2-20 tablet by ity of etamine 00:00: mouth in [place] (ADDERALL) 00 the Medical 30 mg morning Branch tablet and 1 tablet in the evening. dextroamphe 2022-0 Yes [id number] 30mg Take 1 [facility] tamine-amph 2-20 tablet by ity of etamine 00:00: mouth in [place] (ADDERALL) 00 the Medical 30 mg morning Branch tablet and 1 tablet in the evening. dextroamphe 2022-0 Yes [id number] 30mg Take 1 [facility] tamine-amph 2-20 tablet by ity of etamine 00:00: mouth in [place] (ADDERALL) 00 the Medical 30 mg morning Branch tablet and 1 tablet in the evening. dextroamphe 2022-0 Yes [id number] 30mg Take 1 [facility] tamine-amph 2-20 tablet by ity of etamine 00:00: mouth in [place] (ADDERALL) 00 the Medical 30 mg morning Branch tablet and 1 tablet in the evening. dextroamphe 2022-0 Yes [id number] 30mg Take 1 [facility] tamine-amph 2-20 tablet by ity of etamine 00:00: mouth in [place] (ADDERALL) 00 the Medical 30 mg morning Branch tablet and 1 tablet in the evening. dextroamphe 3-0 Yes [id number] 30mg Take 1 [facility] tamine-amph 2-20 tablet by ity of etamine 00:00: mouth in [place] (ADDERALL) 00 the Medical 30 mg morning Branch tablet and 1 tablet in the evening. dextroamphe 2022-0 Yes [id number] 30mg Take 1 [facility] tamine-amph 2-20 tablet by ity of etamine 00:00: mouth in [place] (ADDERALL) 00 the Medical 30 mg morning Branch tablet and 1 tablet in the evening. dextroamphe 2022-0 Yes [id number] 30mg Take 1 [facility] tamine-amph 2-20 tablet by ity of etamine 00:00: mouth in [place] (ADDERALL) 00 the Medical 30 mg morning Branch tablet and 1 tablet in the evening. dextroamphe 2022-0 2023- No [id number] 30mg Take 1 [facility] tamine-amph 2-20 03-20 tablet by it y of etamine 00:00: 00:00 mouth in [place] (ADDERALL) 00 :00 the Medical 30 mg morning Branch tablet and 1 tablet in the evening. azelastine 2022-0 Yes [id number] 1{spray Use 1 [facility] 137 mcg 2-17 } [facility] in ity of (0.1 %) 00:00: each [place] [facility] 1 [facility] in the evening. Use in each nostril as directed azelastine 2022-0 Yes [id number] 1{spray Use 1 [facility] 137 mcg 2-17 } [facility] in ity of (0.1 %) 00:00: each [place] [facility] and 1 [facility] in the evening. Use in each nostril as directed azelastine 2022-0 Yes [id number] 1{spray Use 1 [facility] 137 mcg 2-17 } [facility] in ity of (0.1 %) 00:00: each [place] nasal spray 00 nostril in N[facility] the Branch morning and 1 [facility] in the evening. Use in each nostril as directed azelastine 2022-0 Yes [id number] 1{spray Use 1 [facility] 137 mcg 2-17 } [facility] in ity of (0.1 %) 00:00: each [place] nasal spray 00 nostril in N[facility] the Branch morning and 1 [facility] in the evening. Use in each nostril as directed azelastine 2022-0 Yes [id number] 1{spray Use 1 [facility] 137 mcg 2-17 } [facility] in ity of (0.1 %) 00:00: each [place] nasal spray 00 nostril in Nm dical the Branch morning and 1 [facility] in the evening. Use in each nostril as directed azelastine 2022-0 Yes [id number] 1{spray Use 1 [facility] 137 mcg 2-17 } [facility] in ity of (0.1 %) 00:00: each [place] nasal spray 00 nostril in [facility] the Branch morning and 1 [facility] in the evening. Use in each nostril as directed azelastine 2023-0 Yes [id number] 1{spray Use 1 [facility] 137 mcg 2-17 } [facility] in ity of (0.1 %) 00:00: each [place] nasal spray 00 nostril in Me dical the Branch morning and 1 [facility] in the evening. Use in each nostril as directed azelastine 2023-0 Yes [id number] 1{spray Use 1 [facility] 137 mcg 2-17 } [facility] in ity of (0.1 %) 00:00: each [place] nasal spray 00 nostril in Nm dical the Branch morning and 1 [facility] in the evening. Use in each nostril as directed azelastine 2023-0 Yes [id number] 1{spray Use 1 [facility] 137 mcg 2-17 } [facility] in ity of (0.1 %) 00:00: each [place] nasal spray 00 nostril in Nm dical the Branch morning and 1 [facility] in the evening. Use in each nostril as directed azelastine 2023-0 Yes [id number] 1{spray Use 1 [facility] 137 mcg 2-17 } [facility] in ity of (0.1 %) 00:00: each [place] nasal spray 00 nostril in Me dical the Branch morning and 1 [facility] in the evening. Use in each nostril as directed azelastine 2023-0 Yes [id number] 1{spray Use 1 [facility] 137 mcg 2-17 } [facility] in ity of (0.1 %) 00:00: each [place] nasal spray 00 nostril in Me dical the Branch morning and 1 [facility] in the evening. Use in each nostril as directed azelastine 2023-0 Yes [id number] 1{spray Use 1 [facility] 137 mcg 2-17 } [facility] in ity of (0.1 %) 00:00: each [place] nasal spray 00 nostril in Me dical the Branch morning and 1 [facility] in the evening. Use in each nostril as directed azelastine 2023-0 Yes [id number] 1{spray Use 1 [facility] 137 mcg 2-17 } [facility] in ity of (0.1 %) 00:00: each [place] nasal spray 00 nostril in Nm [facility]ical the Branch morning and 1 [facility] in the evening. Use in each nostril as directed azelastine 2022-0 Yes [id number] 1{spray Use 1 [facility] 137 mcg 2-17 } [facility] in ity of (0.1 %) 00:00: each [place] nasal spray 00 nostril in Nm [facility]ical the Branch morning and 1 [facility] in the evening. Use in each nostril as directed azelastine 2022-0 Yes [id number] 1{spray Use 1 [facility] 137 mcg 2-17 } [facility] in ity of (0.1 %) 00:00: each [place] [facility] in the evening. Use in each nostril as directed azelastine 2022-0 Yes [id number] 1{spray Use 1 [facility] 137 mcg 2-17 } [facility] in ity of (0.1 %) 00:00: each [place] nasal spray 00 nostril in [facility] the Branch morning and 1 [facility] in the evening. Use in each nostril as directed azelastine 2022-0 Yes [id number] 1{spray Use 1 [facility] 137 mcg 2-17 } [facility] in ity of (0.1 %) 00:00: each [place] nasal spray 00 nostril in [facility] the Branch morning and 1 [facility] in the evening. Use in each nostril as directed methylPREDN 0 Yes [id number] Take by [facility] ISolone 2-17 mouth ity of (MEDROL, 00:00: SEE-INSTRU [place] as ADAM,) 4 mg 00 CTIONS. Medica l tablets follow Branch package directions azelastine 0 Yes [id number] 1{spray Use 1 [facility] 137 mcg 2-17 } [facility] in ity of (0.1 %) 00:00: each [place] [facility] and 1 [facility] in the evening. Use in each nostril as directed albuterol 0 Yes [id number] 2{puff} Inhale 2 [facility] 90 2-17 Puffs ity of mcg/actuati 00:00: every 6 [place] as on inhaler 00 (six) Medical hours as Branch needed for Wheezing. benzonatate 0 Yes [id number] 100mg Take 1 [facility] (TESSALON 2-17 capsule by ity of PERLhomedeco2u) 100 00:00: mouth [place] mg capsule 00 every 8 Medica l (eight) Branch hours as needed for Cough. methylPREDN 2023-0 Yes [id number] Take by [facility] ISolone 2-17 mouth ity of (MEDROL, 00:00: SEE-INSTRU [place] ADAM,) 4 mg 00 CTIONS. Medica l tablets follow Branch package directions azelastine 2022-0 Yes [id number] 1{spray Use 1 [facility] 137 mcg 2-17 } [facility] in ity of (0.1 %) 00:00: each [place] nasal spray 00 nostril in [facility] the Branch morning and 1 [facility] in the evening. Use in each nostril as directed albuterol 2022-0 Yes [id number] 2{puff} Inhale 2 [facility] 90 2-17 Puffs ity of mcg/actuati 00:00: every 6 [place] as on inhaler 00 (six) Medical hours as Branch needed for Wheezing. benzonatate 2022-0 Yes [id number] 100mg Take 1 [facility] (TESSALON 2-17 capsule by ity of PERLES) 100 00:00: mouth [place] mg capsule 00 every 8 Medica l (eight) Branch hours as needed for Cough. methylPREDN 2022-0 Yes [id number] Take by [facility] ISolone 2-17 mouth ity of (MEDROL, 00:00: SEE-INSTRU [place] ADAM,) 4 mg 00 CTIONS. Medica l tablets follow Branch package directions azelastine 3-0 Yes [id number] 1{spray Use 1 [facility] 137 mcg 2-17 } [facility] in ity of (0.1 %) 00:00: each [place] nasal spray 00 nostril in Me dical the Branch morning and 1 [facility] in the evening. Use in each nostril as directed albuterol 2023-0 Yes [id number] 2{puff} Inhale 2 [facility] 90 2-17 Puffs ity of mcg/actuati 00:00: every 6 [place] as on inhaler 00 (six) Medical hours as Branch needed for Wheezing. benzonatate 2023-0 Yes [id number] 100mg Take 1 [facility] (TESSALON 2-17 capsule by ity of PERLES) 100 00:00: mouth [place] mg capsule 00 every 8 Medica l (eight) Branch hours as needed for Cough. methylPREDN 2023-0 Yes [id number] Take by [facility] ISolone 2-17 mouth ity of (MEDROL, 00:00: SEE-INSTRU [place] ADAM,) 4 mg 00 CTIONS. Medica l tablets follow Branch package directions azelastine 2023-0 Yes [id number] 1{spray Use 1 [facility] 137 mcg 2-17 } [facility] in ity of (0.1 %) 00:00: each [place] nasal spray 00 nostril in Nm dical the Branch morning and 1 [facility] in the evening. Use in each nostril as directed benzonatate 2023-0 Yes [id number] 100mg Take 1 [facility] (TESSALON 2-17 capsule by ity of PERLES) 100 00:00: mouth [place] mg capsule 00 every 8 Medica l (eight) Branch hours as needed for Cough. methylPREDN 2023-0 Yes [id number] Take by [facility] ISolone 2-17 mouth ity of (MEDROL, 00:00: SEE-INSTRU [place] as ADAM,) 4 mg 00 CTIONS. Medica l tablets follow Branch package directions azelastine 3-0 Yes [id number] 1{spray Use 1 [facility] 137 mcg 2-17 } [facility] in ity of (0.1 %) 00:00: each [place] nasal spray 00 nostril in Nm dical the Branch morning and 1 [facility] in the evening. Use in each nostril as directed benzonatate 2023-0 Yes [id number] 100mg Take 1 [facility] (TESSALON 2-17 capsule by ity of PERLES) 100 00:00: mouth [place] mg capsule 00 every 8 Medica l (eight) Branch hours as needed for Cough. methylPREDN 2023-0 Yes [id number] Take by [facility] ISolone 2-17 mouth ity of (MEDROL, 00:00: SEE-INSTRU [place] as ADAM,) 4 mg 00 CTIONS. Medica l tablets follow Branch package directions azelastine 2023-0 Yes [id number] 1{spray Use 1 [facility] 137 mcg 2-17 } [facility] in ity of (0.1 %) 00:00: each [place] nasal spray 00 nostril in Nm dical the Branch morning and 1 [facility] in the evening. Use in each nostril as directed benzonatate 2023-0 Yes [id number] 100mg Take 1 [facility] (TESSALON 2-17 capsule by ity of PERLES) 100 00:00: mouth [place] mg capsule 00 every 8 Medica l (eight) Branch hours as needed for Cough. methylPREDN 2023-0 Yes [id number] Take by [facility] ISolone 2-17 mouth ity of (MEDROL, 00:00: SEE-INSTRU [place] as ADAM,) 4 mg 00 CTIONS. Medica l tablets follow Branch package directions azelastine 2023-0 Yes [id number] 1{spray Use 1 [facility] 137 mcg 2-17 } [facility] in ity of (0.1 %) 00:00: each [place] nasal spray 00 nostril in Me [facility] the Branch morning and 1 [facility] in the evening. Use in each nostril as directed benzonatate 3-0 Yes [id number] 100mg Take 1 [facility] (TESSALON 2-17 capsule by ity of PERLhomedeco2u) 100 00:00: mouth [place] mg capsule 00 every 8 Medica l (eight) Branch hours as needed for Cough. methylPREDN 2023-0 Yes [id number] Take by [facility] ISolone 2-17 mouth ity of (MEDROL, 00:00: SEE-INSTRU [place] ADAM,) 4 mg 00 CTIONS. Medica l tablets follow Branch package directions azelastine 3-0 Yes [id number] 1{spray Use 1 [facility] 137 mcg 2-17 } [facility] in ity of (0.1 %) 00:00: each [place] nasal spray 00 nostril in Me [facility] the Branch morning and 1 [facility] in the evening. Use in each nostril as directed benzonatate 2023-0 Yes [id number] 100mg Take 1 [facility] (TESSALON 2-17 capsule by ity of PERLES) 100 00:00: mouth [place] mg capsule 00 every 8 Medica l (eight) Branch hours as needed for Cough. methylPREDN 2023-0 Yes [id number] Take by [facility] ISolone 2-17 mouth ity of (MEDROL, 00:00: SEE-INSTRU [place] as ADAM,) 4 mg 00 CTIONS. Medica l tablets follow Branch package directions azelastine 2023-0 Yes [id number] 1{spray Use 1 [facility] 137 mcg 2-17 } [facility] in ity of (0.1 %) 00:00: each [place] nasal spray 00 nostril in [facility] the Branch morning and 1 [facility] in the evening. Use in each nostril as directed benzonatate 2023-0 Yes [id number] 100mg Take 1 [facility] (TESSALON 2-17 capsule by ity of PERLES) 100 00:00: mouth [place] mg capsule 00 every 8 Medica l (eight) Branch hours as needed for Cough. methylPREDN 2023-0 Yes [id number] Take by [facility] ISolone 2-17 mouth ity of (MEDROL, 00:00: SEE-INSTRU [place] ADAM,) 4 mg 00 CTIONS. Medica l tablets follow Branch package directions azelastine 2023-0 Yes [id number] 1{spray Use 1 [facility] 137 mcg 2-17 } [facility] in ity of (0.1 %) 00:00: each [place] nasal spray 00 nostril in [facility] the Branch morning and 1 [facility] in the evening. Use in each nostril as directed benzonatate 2023-0 Yes [id number] 100mg Take 1 [facility] (TESSALON 2-17 capsule by ity of PERLES) 100 00:00: mouth [place] mg capsule 00 every 8 Medica l (eight) Branch hours as needed for Cough. methylPREDN 2023-0 Yes [id number] Take by [facility] ISolone 2-17 mouth ity of (MEDROL, 00:00: SEE-INSTRU [place] as ADAM,) 4 mg 00 CTIONS. Medica l tablets follow Branch package directions azelastine 2023-0 Yes [id number] 1{spray Use 1 [facility] 137 mcg 2-17 } [facility] in ity of (0.1 %) 00:00: each [place] nasal spray 00 nostril in [facility] the Branch morning and 1 [facility] in the evening. Use in each nostril as directed benzonatate 2023-0 Yes [id number] 100mg Take 1 [facility] (TESSALON 2-17 capsule by ity of PERLES) 100 00:00: mouth [place] mg capsule 00 every 8 Medica l (eight) Branch hours as needed for Cough. azelastine 2023-0 Yes [id number] 1{spray Use 1 [facility] 137 mcg 2-17 } [facility] in ity of (0.1 %) 00:00: each [place] nasal spray 00 nostril in [facility] the Branch morning and 1 [facility] in the evening. Use in each nostril as directed benzonatate 2022- No [id number] 100mg Take 1 [facility] (TESSALON 2-17 -17 capsule by ityvonne of DREWhomedeco2u) 100 00:00: 00:00 mouth [place] mg capsule 00 :00 every 8 Medica l (eight) Branch hours as needed for Cough. methylPREDN 2022-2022- No [id number] Take by [facility] ISolone 217 -17 mouth ity of (MEDROL, 00:00: 00:00 SEE-INSTRU [place] ADAM,) 4 mg 00 :00 CTIONS. Medica l tablets follow Branch package directions benzonatate 2022-2022- No [id number] 100mg Take 1 [facility] (TESSALON 2-17 -17 capsule by ityvonne of ABNER) 100 00:00: 00:00 mouth [place] mg capsule 00 :00 every 8 Medica l (eight) Branch hours as needed for Cough. methylPREDN 2022- No [id number] Take by [facility] ISolone 217 17 mouth ity of (MEDROL, 00:00: 00:00 SEE-INSTRU [place] ADAM,) 4 mg 00 :00 CTIONS. Medica l tablets follow Branch package directions albuterol 2022- No [id number] 2{puff} Inhale 2 [facility] 90 217 03-14 Puffs ity of mcg/actuati 00:00: 00:00 every 6 [place] on inhaler 00 :00 (six) Medical hours as Branch needed for Wheezing. albuterol 2022- No [id number] 2{puff} Inhale 2 [facility] 90 217 03-14 Puffs ity of mcg/actuati 00:00: 00:00 every 6 [place] on inhaler 00 :00 (six) Medical hours as Branch needed for Wheezing. triamcinolo Yes [id number] Apply to [facility] 11-20 area(s) 2 ity of acetonide 00:00: (two) [place] 0.1 % cream 00 times Medical daily. Branch triamcinolo Yes [id number] Apply to [facility] 2- area(s) 2 ity of acetonide 00:00: (two) [place] 0.1 % cream 00 times Medical daily. Branch triamcinolo 2023-0 Yes [id number] Apply to [facility] 2-01 area(s) 2 ity of acetonide 00:00: (two) [place] 0.1 % cream 00 times Medical daily. Branch triamcinolo 2023-0 Yes [id number] Apply to [facility] 2- area(s) 2 ity of acetonide 00:00: (two) [place] 0.1 % cream 00 times Medical daily. Branch triamcinolo 2023-0 Yes [id number] Apply to [facility] 2- area(s) 2 ity of acetonide 00:00: (two) [place] 0.1 % cream 00 times Medical daily. Branch triamcinolo 2023-0 Yes [id number] Apply to [facility] 2- area(s) 2 ity of acetonide 00:00: (two) [place] 0.1 % cream 00 times Medical daily. Branch triamcinolo 2023-0 Yes [id number] Apply to [facility] 2- area(s) 2 ity of acetonide 00:00: (two) [place] 0.1 % cream 00 times Medical daily. Branch triamcinolo 2023-0 Yes [id number] Apply to [facility] 2- area(s) 2 ity of acetonide 00:00: (two) [place] 0.1 % cream 00 times Medical daily. Branch triamcinolo 2023-0 Yes [id number] Apply to [facility] 2- area(s) 2 ity of acetonide 00:00: (two) [place] 0.1 % cream 00 times Medical daily. Branch triamcinolo 2023-0 2023- No [id number] Apply to [facility] 2-10 22-17 area(s) 2 ity of acetonide 00:00: 00:00 (two) [place] 0.1 % cream 00 :00 times Medical daily. Branch triamcinolo 2023-0 2023- No [id number] Apply to [facility] 2-10 22-17 area(s) 2 ity of acetonide 00:00: 00:00 (two) [place] 0.1 % cream 00 :00 times Medical daily. Branch sulfamethox 3-0 Yes [facility] [place] [facility] s azole-trime 1-31 ity of thoprim 00:00: [...] BY ity of tablet 00:00: MOUTH FOR [place] SLEEP Medical Branch hydrOXYzine 2022-0 Yes TAKE 1-2 Un ninoska 25 mg 1-27 TABLET BY ity of tablet 00:00: MOUTH FOR [place] SLEEP Medical Branch hydrOXYzine 2022-0 Yes TAKE 1-2 Un ninoska 25 mg 1-27 TABLET BY ity of tablet 00:00: MOUTH FOR [place] SLEEP Medical Branch hydrOXYzine 2022-0 Yes TAKE 1-2 Un ninoska 25 mg 1-27 TABLET BY ity of tablet 00:00: MOUTH FOR [place] SLEEP Medical Branch hydrOXYzine 2022-0 Yes TAKE 1-2 Un ninoska 25 mg 1-27 TABLET BY ity of tablet 00:00: MOUTH FOR [place] SLEEP Medical Branch hydrOXYzine 2022-0 Yes TAKE 1-2 Un ninoska 25 mg 1-27 TABLET BY ity of tablet 00:00: MOUTH FOR [place] SLEEP Medical Branch hydrOXYzine 2022-0 Yes TAKE 1-2 Un ninoska 25 mg 1-27 TABLET BY ity of tablet 00:00: MOUTH FOR [place] SLEEP Medical Branch hydrOXYzine 2022-0 Yes TAKE 1-2 Un ninoska 25 mg 1-27 TABLET BY ity of tablet 00:00: MOUTH FOR [place] SLEEP Medical Branch hydrOXYzine 2022-0 Yes TAKE 1-2 Un ninoska 25 mg 1-27 TABLET BY ity of tablet 00:00: MOUTH FOR [place] SLEEP Medical Branch hydrOXYzine 2022-0 Yes TAKE [...] 00 :00 SLEEP Medical Branch mupirocin 2 0 Yes APPLY Unive rs % ointment 1-26 SPARINGLY ity of 00:00: TOPICALLY TO THE Medical AFFECTED Branch AREA TWICE DAILY mupirocin 2 0 Yes APPLY Unive rs % ointment 1-26 SPARINGLY ity of 00:00: TOPICALLY TO THE Medical AFFECTED Branch AREA TWICE DAILY mupirocin 2 0 Yes APPLY Unive rs % ointment 1-26 SPARINGLY ity of 00:00: TOPICALLY 00 TO THE Medical AFFECTED Branch AREA TWICE DAILY mupirocin 2 0 Yes APPLY Unive rs % ointment 1-26 SPARINGLY ity of 00:00: TOPICALLY 00 TO THE Medical AFFECTED Branch AREA TWICE DAILY mupirocin 2 0 Yes APPLY Unive rs % ointment 1-26 [...] AFFECTED Branch AREA TWICE DAILY mupirocin 2 2022- No APPLY Univ ers % ointment 11-14-17 SPARINGLY ity of 00:00: 00:00 TOPICALLY [place] 00 :00 TO THE Medical AFFECTED Branch AREA TWICE DAILY mupirocin 2 0 2022- No APPLY Univ ers % ointment 11-14-17 SPARINGLY ity of 00:00: 00:00 TOPICALLY [place] 00 :00 TO THE Medical AFFECTED Branch AREA TWICE DAILY predniSONE Yes 20mg Take 20 mg U nivers [...] by mouth ity of tablet 00:00: every [place] 00 morning. Medical Branch SENNA 8.6 Yes [...] 1-25 TABLETS BY ity of 00:00: MOUTH [place] 00 DIRECTED Medical NEEDED. Branch DO NOT EXCEED 4 TABLETS IN 24 HOURS SENNA 8.6 Yes TAKE 2-4 Univ ers mg tablet 1-25 TABLETS BY ity of 00:00: MOUTH [place] 00 DIRECTED Medical NEEDED. Branch DO NOT EXCEED 4 TABLETS IN 24 HOURS SENNA 8.6 2022- No TAKE 2-4 Uni vers mg tablet 1-25 04-17 TABLETS BY ity of 00:00: 00:00 MOUTH [place] 00 :00 DIRECTED Medical NEEDED. Branch DO NOT EXCEED 4 TABLETS IN 24 HOURS SENNA 8.6 2022- No TAKE 2-4 Uni vers mg tablet 1-25 04-17 TABLETS BY ity of 00:00: 00:00 MOUTH [place] 00 :00 DIRECTED Medical NEEDED. Branch DO NOT EXCEED 4 TABLETS IN 24 HOURS predniSONE 2022-0 2022- No 20mg Take 20 mg [facility] 20 mg -25 12-06 by mouth ity of tablet 00:00: 00:00 every [place] 00 :00 morning. Medical Branch predniSONE 2022-0 2022- No 20mg Take 20 mg [facility] 20 mg 1-25 -17 by mouth ity of tablet 00:00: 00:00 every [place] 00 :00 morning. Medical Branch omeprazole Yes TAKE 1 Unive rs 40 mg 1-23 CAPSULE BY ity of capsule 00:00: MOUTH IN [place] 00 THE Medical MORNING Branch omeprazole Yes TAKE 1 Unive rs 40 mg 1-23 CAPSULE BY ity of capsule 00:00: MOUTH IN [place] 00 THE Medical MORNING Branch omeprazole Yes TAKE 1 Unive rs 40 mg 1-23 CAPSULE BY ity of capsule 00:00: MOUTH IN [place] 00 THE Medical MORNING Branch omeprazole 2023-0 Yes TAKE 1 Unive rs 40 mg 1-23 CAPSULE BY ity of capsule 00:00: MOUTH IN [place] 00 THE Medical MORNING Branch omeprazole 2023-0 Yes TAKE 1 Unive rs 40 mg 1-23 CAPSULE BY ity of capsule 00:00: MOUTH IN [place] 00 THE Medical MORNING Branch omeprazole 2023-0 Yes TAKE 1 Unive rs 40 mg 1-23 CAPSULE BY ity of capsule 00:00: MOUTH IN [place] 00 THE Medical MORNING Branch omeprazole 2023-0 Yes TAKE 1 Unive rs 40 mg 1-23 CAPSULE BY ity of capsule 00:00: MOUTH IN [place] 00 THE Medical MORNING Branch omeprazole 2023-0 Yes TAKE 1 Unive rs 40 mg 1-23 CAPSULE BY ity of capsule 00:00: MOUTH IN [place] 00 THE Medical MORNING Branch omeprazole 2023-0 Yes TAKE 1 Unive rs 40 mg 1-23 CAPSULE BY ity of capsule 00:00: MOUTH IN [place] 00 THE Medical MORNING Branch omeprazole 2023-0 Yes TAKE 1 Unive rs 40 mg 1-23 CAPSULE BY ity of capsule 00:00: MOUTH IN [place] 00 THE Medical MORNING Branch omeprazole 2023-0 Yes TAKE 1 Unive rs 40 mg 1-23 CAPSULE BY ity of capsule 00:00: MOUTH IN [place] 00 THE Medical MORNING Branch omeprazole 2023-0 Yes TAKE 1 Unive rs 40 mg 1-23 CAPSULE BY ity of capsule 00:00: MOUTH IN [place] 00 THE Medical MORNING Branch omeprazole 2023-0 Yes TAKE 1 Unive rs 40 mg 1-23 CAPSULE BY ity of capsule 00:00: MOUTH IN [place] 00 THE Medical MORNING Branch omeprazole 2023-0 Yes TAKE 1 Unive rs 40 mg 1-23 CAPSULE BY ity of capsule 00:00: MOUTH IN [place] 00 THE Medical MORNING Branch omeprazole 2023-0 3- No TAKE 1 Univ ers 40 mg 1-23 04-17 CAPSULE BY ity of capsule 00:00: 00:00 MOUTH IN [place] 00 :00 THE Medical MORNING Branch omeprazole 2023-0 3- No TAKE 1 Univ ers 40 mg 1-23 04-17 CAPSULE BY ity of capsule 00:00: 00:00 MOUTH IN [place] 00 :00 THE Medical MORNING Branch FAMOTIDINE 3-0 No 1-17 00:00: 00 LAMOTRIGINE 2023-0 No 1-12 00:00: 00 dextroamphe 2023-0 Yes [id number] 30mg Take 1 [facility] tamine-amph 1-11 tablet by ity of etamine 00:00: mouth in [place] ([facility]) 00 the Medical 30 mg morning Branch tablet and 1 tablet in the evening. dextroamphe 2023-0 Yes [id number] 30mg Take 1 [facility] tamine-amph 1-11 tablet by ity of etamine 00:00: mouth in [place] ([facility]) 00 the Medical 30 mg morning Branch tablet and 1 tablet in the evening. dextroamphe 3-0 Yes [id number] 30mg Take 1 [facility] tamine-amph 1-11 tablet by ity of etamine 00:00: mouth in [place] ([facility]) 00 the Medical 30 mg morning Branch tablet and 1 tablet in the evening. dextroamphe 2023-0 Yes [id number] 30mg Take 1 [facility] tamine-amph 1-11 tablet by ity of etamine 00:00: mouth in [place] ([facility]) 00 the Medical 30 mg morning Branch tablet and 1 tablet in the evening. dextroamphe 3-0 Yes [id number] 30mg Take 1 [facility] tamine-amph 1-11 tablet by ity of etamine 00:00: mouth in [place] ([facility]DERAL) 00 the Medical 30 mg morning Branch tablet and 1 tablet in the evening. dextroamphe 3-0 Yes [id number] 30mg Take 1 [facility] tamine-amph 1-11 tablet by ity of etamine 00:00: mouth in [place] ([facility]) 00 the Medical 30 mg morning Branch tablet and 1 tablet in the evening. dextroamphe 2023-0 2023- No [id number] 30mg Take 1 [facility] tamine-amph 1-11 02-20 tablet by it y of etamine 00:00: 00:00 [facility] [place] [facility] Medical 30 mg morning Branch tablet and 1 tablet in the evening. ACYCLOVIR 2021-1 No 2-29 00:00: 00 TAKE 1 2-1 No 400 TABLET 2-29 EVERY 8 00:00: HOURS 00 DAILY. acyclovir 2021-1 Yes 400mg Take 400 [facility] vers 400 mg 2-29 mg by ity of tablet 00:00: mouth [place] 00 every 8 Medical (eight) Branch hours. acyclovir 2-1 Yes 400mg Take 400 [facility] vers 400 mg 2-29 mg by ity of tablet 00:00: mouth [place] 00 every 8 Medical (eight) Branch hours. acyclovir 2022-1 Yes 400mg Take 400 [facility] vers 400 mg 2-29 mg by ity of tablet 00:00: mouth [place] 00 every 8 Medical (eight) Branch hours. acyclovir 2-1 Yes 400mg Take 400 [facility] vers 400 mg 2-29 mg by ity of tablet 00:00: mouth [place] 00 every 8 Medical (eight) Branch hours. acyclovir 2-1 Yes 400mg Take 400 [facility] vers 400 mg 2-29 mg by ity of tablet 00:00: mouth [place] 00 every 8 Medical (eight) Branch hours. acyclovir 2-1 Yes 400mg Take 400 [facility] vers 400 mg 2-29 mg by ity of tablet 00:00: mouth [place] 00 every 8 Medical (eight) Branch hours. acyclovir 2-1 Yes 400mg Take 400 [facility] vers 400 mg 2-29 mg by ity of tablet 00:00: mouth [place] 00 every 8 Medical (eight) Branch hours. acyclovir 2-1 Yes 400mg Take 400 [facility] vers 400 mg 2-29 mg by ity of tablet 00:00: mouth [place] 00 every 8 Medical (eight) Branch hours. acyclovir 2-1 Yes 400mg Take 400 [facility] vers 400 mg 2-29 mg by ity of tablet 00:00: mouth [place] 00 every 8 Medical (eight) Branch hours. acyclovir 2-1 Yes 400mg Take 1 [facility] rs 400 mg 2-29 tablet by ity of tablet 00:00: mouth [place] 00 every 8 Medical (eight) Branch hours. acyclovir 2022-1 Yes 400mg Take 1 [facility] rs 400 mg 2-29 tablet by ity of tablet 00:00: mouth [place] 00 every 8 Medical (eight) Branch hours. acyclovir 2022-1 Yes 400mg Take 1 [facility] rs 400 mg 2-29 tablet by ity of tablet 00:00: mouth [place] 00 every 8 Medical (eight) Branch hours. acyclovir 2022-1 Yes 400mg Take 1 [facility] rs 400 mg 2-29 tablet by ity of tablet 00:00: mouth [place] 00 every 8 Medical (eight) Branch hours. acyclovir 2021-10 Yes 400mg Take 1 [facility] rs 400 mg 2-29 tablet by ity of tablet 00:00: mouth [place] 00 every 8 Medical (eight) Branch hours. acyclovir 2021-10- No 400mg Take 1 [facility] ers 400 mg 2-29 -17 tablet by ity of tablet 00:00: 00:00 mouth [place] 00 :00 every 8 Medical (eight) Branch hours. acyclovir 2021-10- No 400mg Take 1 [facility] ers 400 mg 2-29 -17 tablet by ity of tablet 00:00: 00:00 mouth [place] 00 :00 every 8 Medical (eight) Branch hours. TAKE 1-2 2021-10 No 25 TABLET(S) 2-23 FOR SLEEP 00:00: 00 HYDROXYZ 2021-10 No HCL 2-23 00:00: 00 TAKE 1 2021-10 No 100 TABLET 2-23 DAILY. 00:00: 00 AMPHET/DEXT 2021-10 No R 30MG 2-22 Tablets 00:00: 00 AMPHET/DEXT 2021-10 No 30 R 30MG 2-22 00:00: 00 dextroamphe 2021-10 Yes [id number] 30mg Take 1 [facility] tamine-amph 2-22 tablet by ity of etamine 00:00: mouth in [place] ([facility]) 00 the Medical 30 mg morning Branch tablet and 1 tablet in the evening. dextroamphe 2021-10- No [id number] 30mg Take 1 [facility] tamine-amph 2-22 - tablet by it y of etamine 00:00: 00:00 mouth in [place] ([facility]) 00 :00 the Medical 30 mg morning Branch tablet and 1 tablet in the evening. FAMOTIDINE 2021-10 No 2-20 00:00: 00 OMEPRAZOLE 2021-10 No 2-20 00:00: 00 BUSPIRONE 2021- No 2-09 00:00: 00 TRAMADOL 2021-10 No HCL 2-08 00:00: 00 TAKE 1 2021- No 50 TABLET BY 2-08 MOUTH EVERY 00:00: 6 HOURS 00 NEEDED dextroamphe 2021-10 Yes [id number] 30mg Take 1 [facility] tamine-amph 2-07 tablet by ity of etamine 00:00: mouth in [place] ([facility]) 00 the Medical 30 mg morning Branch tablet and 1 tablet in the evening. dextroamphe 2021-10 Yes [id number] 30mg Take 1 [facility] tamine-amph 2-07 tablet by ity of etamine 00:00: mouth in [place] ([facility]) 00 the Medical 30 mg morning Branch tablet and 1 tablet in the evening. dextroamphe 2021-10 Yes [id number] 30mg Take 1 [facility] tamine-amph 2-07 tablet by ity of etamine 00:00: mouth in [place] ([facility]) 00 the Medical 30 mg morning Branch tablet and 1 tablet in the evening. dextroamphe 2021-10- No [id number] 30mg Take 1 [facility] tamine-amph 2-07 - tablet by it y of etamine 00:00: 00:00 mouth in [place] ([facility]) 00 :00 the Medical 30 mg morning Branch tablet and 1 tablet in the evening. TAKE 2021-10 No 100 TABLET 1-28 DAILY. 00:00: 00 TAKE 2021-10 No 5 TABLET BY 1-28 MOUTH TWICE 00:00: DAILY 00 TAKE 2021-10 No 100 TABLET AT 1-28 BEDTIME. 00:00: 00 TAKE 2021-10 No 100 TABLET BY 1-28 MOUTH DAILY 00:00: 00 PANTOPRAZOL 2021-10 No E - 00:00: 00 TAKE 2021-10 No TABLET BY 1-16 MOUTH IN 00:00: THE MORNING 00 AND IN THE EVENING dextroamphe 2021-10 Yes [id number] 20mg Take 1 [facility] tamine-amph 1-16 tablet by ity of etamine 00:00: mouth in [place] ([facility]) 00 the Medical 20 mg morning Branch tablet and 1 tablet in the evening. dextroamphe 2021-10- No [id number] 20mg Take 1 [facility] tamine-amph 1-16 12-07 tablet by it y of etamine 00:00: 00:00 mouth in [place] ([facility]) 00 :00 the Medical 20 mg morning Branch tablet and 1 tablet in the evening. dextroamphe 2021-10- No [id number] 20mg Take 1 [facility] tamine-amph 1-16 12-07 tablet by it y of etamine 00:00: 00:00 mouth in [place] ([facility]) 00 :00 the Medical 20 mg morning Branch tablet and 1 tablet in the evening. TRAZODONE 2021-10 No 0-28 00:00: 00 TRAZODONE 2021-10 No 0-28 00:00: 00 dextroamphe 2021-10 Yes [id number] 20mg Take 1 [facility] tamine-amph 0-24 tablet by ity of etamine 00:00: mouth in [place] ([facility]) 00 the Medical 20 mg morning Branch tablet and 1 tablet in the evening. dextroamphe 2021-10- No [id number] 20mg Take 1 [facility] tamine-amph 0-24 11-16 tablet by it y of etamine 00:00: 00:00 mouth in [place] ([facility]) 00 :00 the Medical 20 mg morning Branch tablet and 1 tablet in the evening. diazePAM 2021-10- No 2mg 2 mg, Slow [facility] [place] (VALIUM) 0-20 10-20 IV Push, ity of injection 2 02:15: 02:20 ONCE, 1 [place] 00 :[place] dose, On [facility] 08/07/22 at 2115, STAT diazePAM 2021-10 No 2mg 2 mg, Slow [facility] [place] (VALIUM) 0-20 10-20 IV Push, ity of injection 2 01:45: 01:43 ONCE, 1 [place] 00 :[place] dose, On [facility] 08/07/22 at 2045, STAT NaCl 0.9% 2021-10 No 1000mL at 999 Uni vers (NS) bolus 0-19 10-20 mL/hr, ity of infusion 22:00: 00:30 1,000 mL, Jorge Alberto as 1,000 mL 00 :00 IV Medical Infusion, Branch ONCE, 1 dose, On [facility] 08/07/22 at 1700, CAMILA diazePAM 2021-10- No 5mg 5 mg, Univers (VALIUM) 0-19 10-19 Oral, ity of tablet 5 mg 22:00: 21:48 ONCE, [place] :[place] dose, On [facility] 08/07/22 at 1700, CAMILA AZITHROMYCI 2-0 No N TAB 250MG 07-10 00:00: 00 METRONIDAZO 2022-0 No L TAB 500MG 07-10 00:00: 00 traZODone 2022-0 Yes 100mg Take 100 Uni vers 100 mg 9-20 mg by ity of tablet 09:29: mouth at [place] [address] bedtime. Medical Branch traZODone 2022-0 Yes 100mg Take 100 [facility] vers 100 mg 9-20 mg by ity of tablet 09:29: mouth at [place] [address] bedtime. Medical Branch traZODone 2022-0 Yes 100mg Take 100 [facility] vers 100 mg 9-20 mg by ity of tablet 09:29: mouth at [place] [address] bedtime. Medical Branch traZODone 2-0 Yes 100mg Take 100 [facility] vers 100 mg 9-20 mg by ity of tablet 09:29: mouth [address] Branch traZODone 2022-0 Yes 100mg Take 100 [facility] vers 100 mg 9-20 mg by ity of tablet 09:29: mouth [address] Branch traZODone 2-0 Yes 100mg Take 100 [facility] vers 100 mg 9-20 mg by ity of tablet 09:29: mouth [address] Branch traZODone 2-0 Yes 100mg Take 100 [facility] vers 100 mg 9-20 mg by ity of tablet 09:29: mouth [address] Branch traZODone 2-0 Yes 100mg Take 100 [facility] vers 100 mg 9-20 mg by ity of tablet 09:29: mouth at [place] [address] bedtime. Medical Branch traZODone 2022-0 Yes 100mg Take 100 [facility] vers 100 mg 9-20 mg by ity of tablet 09:29: mouth [address] Branch traZODone 2022-0 Yes 100mg Take 100 [facility] vers 100 mg 9-20 mg by ity of tablet 09:29: mouth at [place] [address] bedtime. Medical Branch traZODone 2022-0 Yes 100mg Take 100 Uni vers 100 mg 9-20 mg by ity of tablet 09:29: mouth at [place] [address] bedtime. Medical Branch traZODone 2022-0 Yes 100mg Take 100 Uni vers 100 mg 9-20 mg by ity of tablet 09:29: mouth at [place] [address] bedtime. Medical Branch traZODone 2022-0 Yes 100mg Take 100 Uni vers 100 mg 9-20 mg by ity of tablet 09:29: mouth at [place] [address] bedtime. Medical Branch traZODone 2-0 Yes 100mg Take 100 Uni vers 100 mg 9-20 mg by ity of tablet 09:29: mouth at [place] [address] bedtime. Medical Branch traZODone 2-0 Yes 100mg Take 100 Uni vers 100 mg 9-20 mg by ity of tablet 09:29: mouth at [place] [address] bedtime. Medical Branch traZODone 2-0 Yes 100mg Take 100 Uni vers 100 mg 9-20 mg by ity of tablet 09:29: mouth at [place] [address] bedtime. Medical Branch traZODone 2-0 Yes 100mg Take 100 Uni vers 100 mg 9-20 mg by ity of tablet 09:29: mouth at [place] [address] bedtime. Medical Branch traZODone 2-0 Yes 100mg Take 100 Uni vers 100 mg 9-20 mg by ity of tablet 09:29: mouth at [place] [address] bedtime. Medical Branch traZODone 2-0 Yes 100mg Take 100 [facility] vers 100 mg 9-20 mg by ity of tablet 09:29: mouth at [place] [address] bedtime. Medical Branch traZODone 2-0 Yes 100mg Take 100 [facility] vers 100 mg 9-20 mg by ity of tablet 09:29: mouth at [place] [address] bedtime. Medical Branch traZODone 2-0 Yes 100mg Take 100 [facility] vers 100 mg 9-20 mg by ity of tablet 09:29: mouth at [place] [address] bedtime. Medical Branch traZODone 2-0 Yes 100mg Take 100 [facility] vers 100 mg 9-20 mg by ity of tablet 09:29: mouth at [place] [address] bedtime. Medical Branch traZODone 2-0 Yes 100mg Take 100 Uni vers 100 mg 9-20 mg by ity of tablet 09:29: mouth at [place] [address] bedtime. Medical Branch clonazePAM 2022-0 2022- No .5mg Take 0.5 [facility] [place] 0.5 mg 9-20 09-20 mg by ity of tablet 09:29: 00:00 mouth at [place] 09 :00 bedtime. Medical Branch clonazePAM 2022-0 2022- No .5mg Take 0.5 [facility] [place] 0.5 mg 9-20 09-20 mg by ity of tablet 09:29: 00:00 mouth at [place] 09 :00 bedtime. Medical Branch OXcarbazepi 2021- No 300mg Take 300 [facility] ne 300 mg 9-20 09-20 mg by ity of tablet 09:28: 00:00 mouth at [place] 57 :00 bedtime. Medical Branch OXcarbazepi 2021- No 300mg Take 300 [facility] ne 300 mg 9-20 09-20 mg by ity of tablet 09:28: 00:00 mouth at [place] 57 :00 bedtime. Medical Branch amoxicillin 2021- No 1{tbl} Take 1 U nivers -clavulanat 9-20 09-20 tablet by it y of e 09:28: 00:00 mouth 2 [place] (AUGMENTIN) 22 :00 (two) Medical 875-125 mg times Branch per tablet daily. amoxicillin 2021- No 1{tbl} Take 1 U nivers -clavulanat 9-20 09-20 tablet by it y of e 09:28: 00:00 mouth 2 [place] (AUGMENTIN) 22 :00 (two) Medical 875-125 mg times Branch per tablet daily. dextroamphe 2021- Yes [id number] 20mg Take 1 [facility] tamine-amph 9-20 tablet by ity of etamine 00:00: mouth in [place] ([facility]) 00 the Medical 20 mg morning Branch tablet and 1 tablet in the evening. dextroamphe 2021-0 Yes [id number] 20mg Take 1 [facility] tamine-amph 9-20 tablet by ity of etamine 00:00: mouth in [place] (ADDERALL) 00 the Medical 20 mg morning Branch tablet and 1 tablet in the evening. dextroamphe 2021-0 Yes [id number] 20mg Take 1 [facility] tamine-amph 9-20 tablet by ity of etamine 00:00: mouth in [place] ([facility]DERALL) 00 the Medical 20 mg morning Branch tablet and 1 tablet in the evening. dextroamphe 2021-0 Yes [id number] 20mg Take 1 [facility] tamine-amph 9-20 tablet by ity of etamine 00:00: mouth in [place] (ADDERALL) 00 the Medical 20 mg morning Branch tablet and 1 tablet in the evening. dextroamphe 2-0 Yes [id number] 20mg Take 1 [facility] tamine-amph 9-20 tablet by ity of etamine 00:00: mouth in [place] (ADDERALL) 00 the Medical 20 mg morning Branch tablet and 1 tablet in the evening. dextroamphe 2022-0 Yes [id number] 20mg Take 1 [facility] tamine-amph 9-20 tablet by ity of etamine 00:00: mouth in [place] ([facility]) 00 the Medical 20 mg morning Branch tablet and 1 tablet in the evening. dextroamphe 2021-0 2022- No [id number] 20mg Take 1 [facility] tamine-amph 9-20 10-24 tablet by it y of etamine 00:00: 00:00 mouth in [place] ([facility]) 00 :00 the Medical 20 mg morning Branch tablet and 1 tablet in the evening. dextroamphe 2021-0 2- No [id number] 20mg Take 1 [facility] tamine-amph 9-20 09-20 tablet by it y of etamine 00:00: 00:00 mouth in [place] ([facility]) 00 :00 the Medical 20 mg morning Branch tablet and 1 tablet in the evening. TAKE 1 2021-0 No 10 TABLET BY 06-05 MOUTH ONCE 00:00: DAILY 00 METRONIDAZO 2-0 No 500 L TAB 500MG 06-05 00:00: 00 AZITHROMYCI 2-0 No 250 N TAB 250MG 06-05 00:00: 00 clonazePAM 2022-0 Yes .5mg Take 0.5 Uni vers 0.5 mg 8-16 mg by ity of tablet 13:20: mouth at [place] 16 bedtime. Medical Branch clonazePAM 2-0 Yes .5mg Take 0.5 Uni vers 0.5 mg 8-16 mg by ity of tablet 13:20: mouth at [place] 16 bedtime. Medical Branch traZODone 2-0 2- No 50mg Take 50 mg U nivers 50 mg 06-04-16 by mouth ity of tablet 13:19: 00:00 at [place] 27 :00 bedtime. Medical Branch traZODone 2022-0 2022- No 50mg Take 50 mg U nivers 50 mg 8-16 08-16 by mouth ity of tablet 13:19: 00:00 at [place] 27 :00 bedtime. Medical Branch lithium 2021- No 900mg Take 900 Univ ers carbonate 8-16 08-16 mg by ity of 300 mg 13:17: 00:00 mouth at [place] tablet 48 :00 bedtime. Medical Branch lithium 2021- No 900mg Take 900 Univ ers carbonate 8-16 08-16 mg by ity of 300 mg 13:17: 00:00 mouth at [place] tablet 48 :00 bedtime. Medical Branch dextroamphe Yes [id number] 20mg Take 1 [facility] tamine-amph 8-16 tablet by ity of etamine 00:00: mouth in [place] ([facility]) 00 the Medical 20 mg morning Branch tablet and 1 tablet in the evening. dextroamphe Yes [id number] 20mg Take 1 [facility] tamine-amph 8-16 tablet by ity of etamine 00:00: mouth in [place] ([facility]) 00 the Medical 20 mg morning Branch tablet and 1 tablet in the evening. dextroamphe 2021- No [id number] 20mg Take 1 [facility] tamine-amph 8-16 09-20 tablet by it y of etamine 00:00: 00:00 mouth in [place] ([facility]) 00 :00 the Medical 20 mg morning Branch tablet and 1 tablet in the evening. dextroamphe 2021- No [id number] 20mg Take 1 [facility] tamine-amph 8-16 09-20 tablet by it y of etamine 00:00: 00:00 mouth in [place] ([facility]) 00 :00 the Medical 20 mg morning Branch tablet and 1 tablet in the evening. TAKE 1 2021-0 No 20 TABLET BY 7-12 MOUTH TWICE 00:00: DAILY 00 &lt 2021-0 No 100 7-12 00:00: 00 benzonatate 2021-2021- No [id number] 100mg Take 1 [facility] 100 mg 7-07 27-16 capsule by ity of capsule 00:00: 00:00 mouth 3 [place] 00 :00 (three) Medical times Branch daily as needed for Cough. benzonatate 2021-2021- No [id number] 100mg Take 1 [facility] 100 mg 7-10 08-16 capsule by ity of capsule 00:00: 00:00 mouth 3 [place] 00 :00 (three) Medical times Branch daily as needed for Cough. lamoTRIgine 2022-0 Yes 50mg Take 50 mg [facility] 25 mg 6-30 by mouth ity of tablet 00:00: in the [place] 00 morning. Medical Branch lamoTRIgine 2022-0 Yes 50mg Take 50 mg [facility] 25 mg 6-30 by mouth ity of tablet 00:00: in the [place] 00 morning. Medical Branch lamoTRIgine 2022-0 Yes 50mg Take 50 mg [facility] 25 mg 6-30 by mouth ity of tablet 00:00: in the [place] 00 morning. Medical Branch lamoTRIgine 2022-0 Yes 50mg Take 50 mg [facility] 25 mg 6-30 by mouth ity of tablet 00:00: in the [place] 00 morning. Medical Branch lamoTRIgine 2022-0 Yes 50mg Take 50 mg [facility] 25 mg 6-30 by mouth ity of tablet 00:00: in the [place] morning. Medical Branch lamoTRIgine 2022-0 Yes 50mg Take 50 mg [facility] 25 mg 6-30 by mouth ity of tablet 00:00: in the [place] 00 morning. Medical Branch lamoTRIgine 2022-0 Yes 50mg Take 50 mg [facility] 25 mg 6-30 by mouth ity of tablet 00:00: in the [place] 00 morning. Medical Branch lamoTRIgine 2022-0 Yes 50mg Take 50 mg [facility] 25 mg 6-30 by mouth ity of tablet 00:00: in the [place] 00 morning. Medical Branch lamoTRIgine 2022-0 Yes 50mg Take 50 mg [facility] 25 mg 6-30 by mouth ity of tablet 00:00: in the [place] 00 morning. Medical Branch lamoTRIgine 2022-0 Yes 50mg Take 50 mg [facility] 25 mg 6-30 by mouth ity of tablet 00:00: in the [place] 00 morning. Medical Branch lamoTRIgine 2022-0 Yes 50mg Take 50 mg [facility] 25 mg 6-30 by mouth ity of tablet 00:00: in the [place] 00 morning. Medical Branch lamoTRIgine 2022-0 Yes 50mg Take 50 mg [facility] 25 mg 6-30 by mouth ity of tablet 00:00: in the [place] 00 morning. Medical Branch lamoTRIgine 2022-0 Yes 50mg Take 50 mg [facility] 25 mg 6-30 by mouth ity of tablet 00:00: in the [place] 00 morning. Medical Branch lamoTRIgine 2022-0 Yes 50mg Take 50 mg [facility] 25 mg 6-30 by mouth ity of tablet 00:00: in the [place] 00 morning. Medical Branch lamoTRIgine 2022-0 Yes 50mg Take 50 mg [facility] 25 mg 6-30 by mouth ity of tablet 00:00: in the [place] morning. Medical Branch lamoTRIgine 2022-0 Yes 50mg Take 50 mg [facility] 25 mg 6-30 by mouth ity of tablet 00:00: in the [place] 00 morning. Medical Branch lamoTRIgine 2022-0 Yes 50mg Take 50 mg [facility] 25 mg 6-30 by mouth ity of tablet 00:00: in the [place] morning. Medical Branch lamoTRIgine 2022-0 Yes 50mg Take 50 mg [facility] 25 mg 6-30 by mouth ity of tablet 00:00: in the [place] morning. Medical Branch lamoTRIgine 2022-0 Yes 50mg Take 50 mg [facility] 25 mg 6-30 by mouth ity of tablet 00:00: in the [place] morning. Medical Branch lamoTRIgine 2022-0 Yes 50mg Take 50 mg [facility] 25 mg 6-30 by mouth ity of tablet 00:00: in the [place] 00 morning. Medical Branch lamoTRIgine 2022-0 Yes 50mg Take 50 mg [facility] 25 mg 6-30 by mouth ity of tablet 00:00: in the [place] 00 morning. Medical Branch lamoTRIgine 2022-0 Yes 50mg Take 50 mg [facility] 25 mg 6-30 by mouth ity of tablet 00:00: in the [place] morning. Medical Branch lamoTRIgine 2022-0 Yes 50mg Take 50 mg [facility] 25 mg 6-30 by mouth ity of tablet 00:00: in the [place] 00 morning. Medical Branch lamoTRIgine 2022-0 Yes 50mg Take 50 mg [facility] 25 mg 6-30 by mouth ity of tablet 00:00: in the [place] 00 morning. Medical Branch lamoTRIgine 2022-0 Yes 50mg Take 50 mg [facility] 25 mg 6-30 by mouth ity of tablet 00:00: in the [place] 00 morning. Medical Branch lamoTRIgine 2022-0 Yes 50mg Take 2 Univ ers 25 mg 6-30 tablets by ity of tablet 00:00: mouth in [place] 00 the Medical morning. Branch lamoTRIgine 2022-0 Yes 50mg Take 2 Univ ers 25 mg 6-30 tablets by ity of tablet 00:00: mouth in [place] 00 the Medical morning. Branch lamoTRIgine 2022-0 Yes 50mg Take 2 Univ ers 25 mg 6-30 tablets by ity of tablet 00:00: mouth in [place] 00 the Medical morning. Branch lamoTRIgine 2022-0 Yes 50mg Take 2 Univ ers 25 mg 6-30 tablets by ity of tablet 00:00: mouth in [place] 00 the Medical morning. Branch lamoTRIgine 2022-0 Yes 50mg Take 2 Univ ers 25 mg 6-30 tablets by ity of tablet 00:00: mouth in [place] 00 the Medical morning. Branch Lamictal 25 2-0 No 2mg mg tablet 6-30 00:00: 00 trazodone 2022-0 No 1mg 50 mg 6-30 tablet 00:00: 00 &lt 2022-0 No 6-30 00:00: 00 &lt 2022-0 No 6-30 00:00: 00 Dose 2022-0 No Unknown 6-30 00:00: 00 TAKE 1 2-0 No TABLET BY 6-30 MOUTH ONCE 00:00: DAILY 00 lamoTRIgine 2022-0 2023- No 50mg Take 2 Uni vers 25 mg 6-30 04-17 tablets by ity of tablet 00:00: 00:00 mouth in [place] 00 :00 the Medical morning. Branch lamoTRIgine 2022-0 2023- No 50mg Take 2 Uni vers 25 mg 6-30 04-17 tablets by ity of tablet 00:00: 00:00 mouth in [place] 00 :00 the Medical morning. Branch Dose [...] No Unknown 1-20 00:00: 00 Lamictal 25 2021-1 No 2mg mg tablet 2-06 00:00: 00 trazodone 2020-10 No 1mg 50 mg 2-06 tablet 00:00: 00 Lamictal 25 2020-10 No 1mg mg tablet 1-08 00:00: 00 Lamictal 25 2020-10 No 2mg mg tablet 1-08 00:00: 00 trazodone 2020-10 No 1mg 50 mg 1-08 tablet 00:00: 00 Lamictal 25 2020-10 No 1mg mg tablet 0-18 00:00: 00 trazodone 2020-10 No 1mg 50 mg 0-18 tablet 00:00: 00 amoxicillin 0 Yes 1{tbl} Take 1 [facility] [place] -clavulanat 9-29 tablet by ity of e 15:10: mouth 2 [place] ([facility]) 21 (two) Medical 875-125 mg times Branch per tablet daily. OXcarbazepi 0 Yes 300mg Take 300 U nivers ne 300 mg 9-29 mg by ity of tablet 15:10: mouth at [place] [address] bedtime. Medical Branch amoxicillin Yes 1{tbl} Take 1 Un [place] -clavulanat 9-29 tablet by ity of e 15:10: mouth 2 [place] (AUGMENTIN) 21 (two) Medical 875-125 mg times Branch per tablet daily. OXcarbazepi 0 Yes 300mg Take 300 U nivers ne 300 mg 9-29 mg by ity of tablet 15:10: mouth at [place] [address] bedtime. Medical Branch Lamictal 25 No 1mg mg tablet 07-10 00:00: 00 trazodone 2020-0 No 1mg 50 mg 9- tablet 00:00: 00 Abilify 30 2020-0 No 1mg mg tablet 06-20 00:00: 00 oxcarbazepi 2020-0 No 2mg ne 600 mg 06-20 tablet 00:00: 00 lithium 2020-0 No 3mg carbonate 06-20 300 mg 00:00: capsule 00 benzonatate 2020-0 Yes [id number] 100mg Take 1 [facility] 100 mg 7-17 capsule by ity of capsule 00:00: mouth 3 [place] [address] (three) Medical times Branch daily as needed for Cough. benzonatate Yes [id number] 100mg Take 1 [facility] 100 mg 7-17 capsule by ity of capsule 00:00: mouth 3 [place] 00 (three) Medical times Branch daily as needed for Cough. benzonatate 2021- No [id number] 100mg Take 1 [facility] 100 mg 7-17 09-20 capsule by ity of capsule 00:00: 00:00 mouth 3 [place] 00 :00 (three) Medical times Branch daily as needed for Cough. benzonatate 2021- No [id number] 100mg Take 1 [facility] 100 mg 7-17 09-20 capsule by ity of capsule 00:00: 00:00 mouth 3 [place] 00 :00 (three) Medical times Branch daily as needed for Cough. Lamictal 25 0 No 1mg mg tablet 7-09 00:00: 00 hydroxyzine 2020-0 No 1mg HCl 25 mg 7-09 tablet 00:00: 00 Lamictal 25 2020-0 No 1mg mg tablet 6-11 00:00: 00 hydroxyzine 2020-0 No 1mg HCl 25 mg 6-11 tablet 00:00: 00 pantoprazol 0 Yes [id number] 40mg Take 1 [facility] e 40 mg EC 6-09 tablet by ity of tablet 00:00: mouth [place] 00 daily. Medical Branch pantoprazol Yes [id number] 40mg Take 1 [facility] e 40 mg EC 6-09 tablet by ity of tablet 00:00: mouth [place] 00 daily. Medical Branch pantoprazol Yes [id number] 40mg Take 1 [facility] e 40 mg EC 6-09 tablet by ity of tablet 00:00: mouth [place] 00 daily. Medical Branch pantoprazol Yes [id number] 40mg Take 1 [facility] e 40 mg EC 6-09 tablet by ity of tablet 00:00: mouth [place] 00 daily. Medical Branch pantoprazol 2020-0 Yes [id number] 40mg Take 1 [facility] e 40 mg EC 6-09 tablet by ity of tablet 00:00: mouth [place] 00 daily. Medical Branch pantoprazol Yes [id number] 40mg Take 1 [facility] e 40 mg EC 6-09 tablet by ity of tablet 00:00: mouth [place] 00 daily. Medical Branch pantoprazol Yes [id number] 40mg Take 1 [facility] e 40 mg EC 6-09 tablet by ity of tablet 00:00: mouth [place] 00 daily. Medical Branch pantoprazol Yes [id number] 40mg Take 1 [facility] e 40 mg EC 6-09 tablet by ity of tablet 00:00: mouth [place] 00 daily. Medical Branch pantoprazol Yes [id number] 40mg Take 1 [facility] e 40 mg EC 6-09 tablet by ity of tablet 00:00: mouth [place] 00 daily. Medical Branch pantoprazol Yes [id number] 40mg Take 1 Univers e 40 mg EC 6-09 tablet by ity of tablet 00:00: mouth [place] 00 daily. [facility] pantoprazol Yes [id number] 40mg Take 1 Univers e 40 mg EC 6-09 tablet by ity of tablet 00:00: mouth [place] 00 daily. [facility] pantoprazol Yes [id number] 40mg Take 1 Univers e 40 mg EC 6-09 tablet by ity of tablet 00:00: mouth [place] 00 daily. [facility] pantoprazol Yes [id number] 40mg Take 1 Univers e 40 mg EC 6-09 tablet by ity of tablet 00:00: mouth [place] 00 daily. [facility] pantoprazol Yes [id number] 40mg Take 1 Univers e 40 mg EC 6-09 tablet by ity of tablet 00:00: mouth [place] 00 daily. [facility] pantoprazol Yes [id number] 40mg Take 1 Univers e 40 mg EC 6-09 tablet by ity of tablet 00:00: mouth [place] 00 daily. [facility] pantoprazol Yes [id number] 40mg Take 1 Univers e 40 mg EC 6-09 tablet by ity of tablet 00:00: mouth [place] 00 daily. [facility] pantoprazol Yes [id number] 40mg Take 1 Univers e 40 mg EC 6-09 tablet by ity of tablet 00:00: mouth [place] 00 daily. [facility] pantoprazol Yes [id number] 40mg Take 1 Univers e 40 mg EC 6-09 tablet by ity of tablet 00:00: mouth [place] 00 daily. [facility] pantoprazol Yes [id number] 40mg Take 1 Univers e 40 mg EC 6-09 tablet by ity of tablet 00:00: mouth [place] 00 daily. [facility] pantoprazol Yes [id number] 40mg Take 1 Univers e 40 mg EC 6-09 tablet by ity of tablet 00:00: mouth [place] 00 daily. [facility] pantoprazol Yes [id number] 40mg Take 1 Univers e 40 mg EC 6-09 tablet by ity of tablet 00:00: mouth [place] 00 daily. [facility] pantoprazol Yes [id number] 40mg Take 1 Univers e 40 mg EC 6-09 tablet by ity of tablet 00:00: mouth [place] 00 daily. [facility] pantoprazol Yes [id number] 40mg Take 1 Univers e 40 mg EC 6-09 tablet by ity of tablet 00:00: mouth [place] 00 daily. [facility] pantoprazol Yes [id number] 40mg Take 1 Univers e 40 mg EC 6-09 tablet by ity of tablet 00:00: mouth [place] 00 daily. [facility] pantoprazol Yes [id number] 40mg Take 1 Univers e 40 mg EC 6-09 tablet by ity of tablet 00:00: mouth [place] 00 daily. [facility] pantoprazol Yes [id number] 40mg Take 1 Univers e 40 mg EC 6-09 tablet by ity of tablet 00:00: mouth [place] 00 daily. [facility] pantoprazol Yes [id number] 40mg Take 1 Univers e 40 mg EC 6-09 tablet by ity of tablet 00:00: mouth [place] 00 daily. [facility] pantoprazol Yes [id number] 40mg Take 1 Univers e 40 mg EC 6-09 tablet by ity of tablet 00:00: mouth [place] 00 daily. [facility] pantoprazol Yes [id number] 40mg Take 1 Univers e 40 mg EC 6-09 tablet by ity of tablet 00:00: mouth [place] 00 daily. [facility] pantoprazol Yes [id number] 40mg Take 1 Univers e 40 mg EC 6-09 tablet by ity of tablet 00:00: mouth [place] 00 daily. [facility] pantoprazol 3- No [id number] 40mg Take 1 Univers e 40 mg EC 6-09 04-17 tablet by ity of tablet 00:00: 00:00 mouth [place] 00 :00 daily. [facility] pantoprazol 2020-0 2023- No [id number] 40mg Take 1 Univers e 40 mg [...] 1mg mg tablet 1-15 00:00: 00 hydroxyzine 1-0 No 1mg HCl 25 mg 1-15 tablet 00:00: 00 Flagyl 500 2019-1 No 1mg mg tablet 0- 00:00: 00 mupirocin 2 2019- No 1% [...] Immunizations Ordered Filled Immunization Date Status Comments [facility] e Immunization Name Name SARS-COV-2 COVID-19 2021-01-15 Completed Unive rsity of [facility]/J&J VACCINE 00:00:[address] [facility] SARS-COV-2 COVID-19 2021-01-15 Completed Unive rsity of [facility]J&J VACCINE 00:00:[address] [facility] SARS-COV-2 COVID-19 2021-01-15 Completed Unive rsity of [place]/J&J VACCINE 00:00:[address] [facility] SARS-COV-2 COVID-19 2021-01-15 Completed Unive rsity of [facility]J&J VACCINE 00:00:[address] [facility] SARS-COV-2 COVID-19 2021-01-15 Completed Unive rsity of [facility]J&J VACCINE 00:00:[address] [facility] SARS-COV-2 COVID-19 2021-01-15 Completed Unive rsity of [facility]/J&J VACCINE 00:00:[address] [facility] SARS-COV-2 COVID-19 2021-01-15 Completed Unive rsity of [facility]/J&J VACCINE 00:00:[address] [facility] SARS-COV-2 COVID-19 2021-01-15 Completed Unive rsity of [place]/J&J VACCINE 00:00:[address] [facility] SARS-COV-2 COVID-19 2021-01-15 Completed Unive rsity of [facility]/J&J VACCINE 00:00:[address] [facility] SARS-COV-2 COVID-19 2021-01-15 Completed Unive rsity of [place]/J&J VACCINE 00:00:[address] [facility] SARS-COV-2 COVID-19 2021-01-15 Completed Unive rsity of [facility]/J&J VACCINE 00:00:[address] [facility] SARS-COV-2 COVID-19 2021-01-15 Completed Unive rsity of [place]/J&J VACCINE 00:00:[address] [facility] SARS-COV-2 COVID-19 2021-01-15 Completed Unive rsity of [place]/J&J VACCINE 00:00:[address] [facility] SARS-COV-2 COVID-19 2021-01-15 Completed Unive rsity of [place]/J&J VACCINE 00:00:[address] [facility] SARS-COV-2 COVID-19 2021-01-15 Completed Unive rsity of [place]/J&J VACCINE 00:00:[address] [facility] SARS-COV-2 COVID-19 2021-01-15 Completed Unive rsity of [place]/J&J VACCINE 00:00:[address] [facility] SARS-COV-2 COVID-19 2021-01-15 Completed Unive rsity of [facility]/J&J VACCINE 00:00:[address] [facility] SARS-COV-2 COVID-19 2021-01-15 Completed Unive rsity of [facility]/J&J VACCINE 00:00:[address] [facility] SARS-COV-2 COVID-19 2021-01-15 Completed Unive rsity of [facility]/J&J VACCINE 00:00:[address] [facility] SARS-COV-2 COVID-19 2021-01-15 Completed Unive rsity of [facility]/J&J VACCINE 00:00:[address] [facility] SARS-COV-2 COVID-19 2021-01-15 Completed Unive rsity of [facility]/J&J VACCINE 00:00:[address] [facility] SARS-COV-2 COVID-19 2021-01-15 Completed Unive rsity of [facility]/J&J VACCINE 00:00:[address] [facility] SARS-COV-2 COVID-19 2021-01-15 Completed Unive rsity of [facility]/J&J VACCINE 00:00:[address] [facility] SARS-COV-2 COVID-19 2021-01-15 Completed Unive rsity of [facility]J&J VACCINE 00:00:[address] [facility] SARS-COV-2 COVID-19 2021-01-15 Completed Unive rsity of [facility]/J&J VACCINE 00:00:[address] [facility] SARS-COV-2 COVID-19 2021-01-15 Completed Unive rsity of [facility]J&J VACCINE 00:00:[address] [facility] SARS-COV-2 COVID-19 2021-01-15 Completed Unive rsity of [facility]/J&J VACCINE 00:00:[address] [facility] SARS-COV-2 COVID-19 2021-01-15 Completed Unive rsity of [facility]/J&J VACCINE 00:00:[address] [facility] SARS-COV-2 COVID-19 2021-01-15 Completed Unive rsity of [facility]/J&J VACCINE 00:00:[address] [facility] SARS-COV-2 COVID-19 2021-01-15 Completed Unive rsity of [facility]/J&J VACCINE 00:00:[address] [facility] SARS-COV-2 COVID-19 2021-01-15 Completed Unive rsity of [facility]/J&J VACCINE 00:00:[address] [facility] SARS-COV-2 COVID-19 2021-01-15 Completed Unive rsity of [facility]J&J VACCINE 00:00:[address] [facility] SARS-COV-2 COVID-19 2021-01-15 Completed Unive rsity of [facility]J&J VACCINE 00:00:[address] [facility] SARS-COV-2 COVID-19 2021-01-15 Completed Unive rsity of [facility]J&J VACCINE 00:00:[address] [facility] SARS-COV-2 COVID-19 2021-01-15 Completed Unive rsity of [facility]J&J VACCINE 00:00:[address] [facility] SARS-COV-2 COVID-19 2021-01-15 Completed Unive rsity of [facility]/J&J VACCINE 00:00:[address] [facility] SARS-COV-2 COVID-19 2021-01-15 Completed Unive rsity of [facility]/J&J VACCINE 00:00:[address] [facility] SARS-COV-2 COVID-19 2021-01-15 Completed Unive rsity of [facility]/J&J VACCINE 00:00:[address] [facility] SARS-COV-2 COVID-19 2021-01-15 Completed Unive rsity of [facility]/J&J VACCINE 00:00:[address] [facility] SARS-COV-2 COVID-19 2021-01-15 Completed Unive rsity of [facility]/J&J VACCINE 00:00:[address] [facility] SARS-COV-2 COVID-19 2021-01-15 Completed Unive rsity of [facility]/J&J VACCINE 00:00:[address] [facility] SARS-COV-2 COVID-19 2021-01-15 Completed Unive rsity of [facility]/J&J VACCINE 00:00:[address] [facility] SARS-COV-2 COVID-19 2021-01-15 Completed Unive rsity of [facility]/J&J VACCINE 00:00:[address] [facility] SARS-COV-2 COVID-19 2021-01-15 Completed Unive rsity of [facility]/J&J VACCINE 00:00:[address] [facility] SARS-COV-2 COVID-19 2021-01-15 Completed Unive rsity of [facility]J&J VACCINE 00:00:[address] [facility] SARS-COV-2 COVID-19 2021-01-15 Completed Unive rsity of [facility]/J&J VACCINE 00:00:[address] [facility] SARS-COV-2 COVID-19 2021-01-15 Completed Unive rsity of [facility]/J&J VACCINE 00:00:[address] [facility] SARS-COV-2 COVID-19 2021-01-15 Completed Unive rsity of [facility]/J&J VACCINE 00:00:[address] [facility] Vital Signs Vital Name Observation Time Observation Value Comments Source Systolic blood 2023-02-15 22:41:00 109 mm[Hg] Univer sity of pressure [place] [facility] Diastolic blood 2023-02-15 22:41:00 72 mm[Hg] Unive rsity of pressure [facility] Heart rate 2023-02-15 22:41:00 87 /min Universi ty of [facility] Body temperature 2023-02-15 22:41:00 36.83 Annia Univ ersity of [facility] Respiratory rate 2023-02-15 22:41:00 18 /min Univ ersity of [facility] Body height 2023-02-15 22:41:00 162.6 cm Universi ty of [place] [facility] Body weight 2023-02-15 22:41:00 68.947 kg Universi ty of [place] [facility] BMI 2023-02-15 22:41:00 26.09 kg/m2 Universi ty of [place] [facility] Oxygen saturation in 2023-02-15 22:41:00 96 /min University of Arterial blood by [place] [facility] Pulse oximetry Branch Systolic blood 2023-02-07 14:41:00 124 mm[Hg] Univer sity of pressure [place] [facility] Diastolic blood 2023-02-07 14:41:00 83 mm[Hg] Unive rsity of pressure [facility] Heart rate 2023-02-07 14:41:00 94 /min Universi ty of [place] [facility] Body temperature 2023-02-07 14:41:00 36.67 Annia Univ ersity of [place] [facility] Body height 2023-02-07 14:41:00 162.6 cm Universi ty of [place] [facility] Body weight 2023-02-07 14:41:00 69.718 kg Universi ty of [place] [facility] BMI 2023-02-07 14:41:00 26.38 kg/m2 Universi ty of [facility] Oxygen saturation in 2023-02-07 14:41:00 98 /min University of Arterial blood by [place] [facility] Pulse oximetry Branch Systolic blood 2023-02-03 14:53:00 125 mm[Hg] Univer sity of pressure [facility] Diastolic blood 2023-02-03 14:53:00 68 mm[Hg] Unive rsity of pressure [facility] Heart rate 2023-02-03 14:53:00 79 /min Universi ty of [place] [facility] Body temperature 2023-02-03 14:53:00 36.33 Annia Univ ersity of [place] [facility] Body height 2023-02-03 14:53:00 162.6 cm Universi ty of [place] [facility] Body weight 2023-02-03 14:53:00 68.629 kg Universi ty of [place] [facility] BMI 2023-02-03 14:53:00 25.97 kg/m2 Universi ty of [place] [facility] Oxygen saturation in 2023-02-03 14:53:00 100 /min University of Arterial blood by [place] [employer] [facility] Pulse oximetry Branch Systolic blood 2023-01-03 21:59:00 133 mm[Hg] Univer sity of pressure [facility] Diastolic blood 2023-01-03 21:59:00 87 mm[Hg] Unive rsity of pressure [facility] Heart rate 2023-01-03 21:59:00 109 /min Universi ty of [facility] Body temperature 2023-01-03 21:59:00 36.89 Annia Univ ersity of [place] [facility] Respiratory rate 2023-01-03 21:59:00 17 /min Univ ersity of [facility] Body weight 2023-01-03 21:59:00 70.308 kg Universi ty of [place] [facility] BMI 2023-01-03 21:59:00 26.61 kg/m2 Universi ty of [place] [facility] Oxygen saturation in 2023-01-03 21:59:00 98 /min University of Arterial blood by [facility] Pulse oximetry Branch Systolic blood 2022-12-06 15:29:00 132 mm[Hg] Univer sity of pressure [facility] Diastolic blood 2022-12-06 15:29:00 85 mm[Hg] Unive rsity of pressure [facility] Body temperature 2022-12-06 15:29:00 37.11 Annia Univ ersity of [place] [facility] Body height 2022-12-06 15:29:00 162.6 cm Universi ty of [place] [facility] Body weight 2022-12-06 15:29:00 68.947 kg Universi ty of [place] [facility] BMI 2022-12-06 15:29:00 26.09 kg/m2 Universi ty of [place] [facility] Oxygen saturation in 2022-12-06 15:29:00 99 /min University of Arterial blood by [facility] Pulse oximetry Branch Systolic blood 2022-11-20 21:39:00 106 mm[Hg] Univer sity of pressure [facility] Diastolic blood 2022-11-20 21:39:00 63 mm[Hg] Unive rsity of pressure [facility] Heart rate 2022-11-20 21:39:00 118 /min Universi ty of [place] [facility] Body temperature 2022-11-20 21:39:00 36.72 Annia Univ ersity of [place] [facility] Body height 2022-11-20 21:39:00 162.6 cm Universi ty of [place] [facility] Body weight 2022-11-20 21:39:00 68.04 kg Universi ty of [place] [facility] BMI 2022-11-20 21:39:00 25.75 kg/m2 Universi ty of [place] [facility] Oxygen saturation in 2022-11-20 21:39:00 99 /min University of Arterial blood by [facility] Pulse oximetry Branch Systolic blood 2022-09-25 17:10:00 120 mm[Hg] Univer sity of pressure [facility] Diastolic blood 2022-09-25 17:10:00 80 mm[Hg] Unive rsity of pressure [facility] Heart rate 2022-09-25 17:10:00 92 /min Universi ty of [place] [facility] Body height 2022-09-25 17:10:00 162.6 cm Universi ty of [place] [facility] Body weight 2022-09-25 17:10:00 64.864 kg Universi ty of [place] [facility] BMI 2022-09-25 17:10:00 24.55 kg/m2 Universi ty of [place] [facility] Systolic blood 2022-08-08 02:23:00 122 mm[Hg] Univer sity of pressure [facility] Diastolic blood 2022-08-08 02:23:00 78 mm[Hg] Unive rsity of pressure [facility] Heart rate 2022-08-08 02:23:00 76 /min Universi ty of [place] [facility] Body temperature 2022-08-08 02:23:00 36.67 Annia Univ ersity of [place] [facility] Respiratory rate 2022-08-08 02:23:00 19 /min [facility] Oxygen saturation in 2022-08-08 02:23:00 96 /min [facility] Arterial blood by [facility] Pulse oximetry Branch Body height 2022-08-07 20:26:00 162.6 cm [facility] [place] [facility] Body weight 2022-08-07 20:26:00 64.1 kg [facility]i ty [facility] [place] [facility] BMI 2022-08-07 20:26:00 24.26 kg/m2 Universi ty of [facility] Systolic blood 2022-07-09 14:25:00 139 mm[Hg] Univer sity of [facility] Diastolic blood 2022-07-09 14:25:00 94 mm[Hg] Unive rsity of [facility] Heart rate 2022-07-09 14:25:00 88 /min [facility]i ty [facility] [place] [facility] Body height 2022-07-09 14:25:00 162.6 cm [facility]i ty [facility] [place] [facility] Body weight 2022-07-09 14:25:00 65.318 kg [facility] [place] [facility] BMI 2022-07-09 14:25:00 24.72 kg/m2 [facility] ty [facility] [place] [facility] Systolic blood 2022-06-04 18:16:00 115 mm[Hg] Univer sity of pressure [facility] Diastolic blood 2022-06-04 18:16:00 74 mm[Hg] Unive rsity of [facility] Body height 2022-06-04 18:16:00 162.6 cm [facility] ty [facility] [place] [facility] Body weight 2022-06-04 18:16:00 64.864 kg [facility] [place] [facility] BMI 2022-06-04 18:16:00 24.55 kg/m2 Universi ty of [facility] BP Systolic 2022-11-12 09:56:00 119 mm[Hg] [...] e POCT SARS-COV-2 2023-02-07 15:13:[address] [facility] ANTIGEN (BINAX NOW) Medical Bran ch POCT MOLECULAR FLU 2023-02-07 15:06:00 Unknown, Attending [facility] POCT MOLECULAR STREP 2023-02-07 14:52:00 Unknown, Attending [facility] [place] [facility] PATIENT FINANCIAL 2023-01-03 21:48:53 Doctor Unassigned, No [facility] POLICY Name [facility] EXTERNAL PROVIDER 2022-12-24 06:01:00 Doctor Unassigned, No [facility] RECORDS Name [facility] CREATINE KINASE 2022-08-07 21:44[facility]07 [facility] TEST, SERUM 2022-08-07 [facility]:44[facility]22-08-07 21:44[facility]EL 2022-08-07 21:44:00 Jamar Mila [facility] ([id number]) [facility] (ALB,T.PRO,BILI T,BU/BC,ALT,AST,ALK PHOS) BASIC METABOLIC PANEL 2022-08-07 21:44:[address] [facility] (NA, K, CL, CO2, Medical Branch GLUCOSE, BUN, CREATININE, CA) SALICYLATE 2022-08-07 21:44:00 [facility] 2022-08-07 21:44:[address] [facility] CBC WITH DIFF 2022-08-07 21:44:[address]an o f [facility] Plan of Care Planned Activity Planned Date Details Comments Source Goal Plan of Care Note [code = 53820-3] Goal Plan of Care Note [code = 18210-5] Goal Plan of Care Note [code = 22450-0] Goal Plan of Care Note [code = 45245-1] Goal Plan of Care Note [code = 36109-6] Goal Plan of Care Note [code = 91072-3] Goal Plan of Care Note [code = 62608-2] Goal Plan of Care Note [code = 38582-6] Goal Plan of Care Note [code = 60858-2] Goal Plan of Care Note [code = 09932-9] Goal Plan of Care Note [code = 02677-7] Goal Plan of Care Note [code = 41278-8] Goal Plan of Care Note [code = 85096-7] Goal Plan of Care Note [code = 91806-2] Goal Plan of Care Note [code = 92921-6] Goal Plan of Care Note [code = 78360-5] Goal Plan of Care Note [code = 75071-6] Goal Plan of Care Note [code = 70018-9] Goal Plan of Care Note [code = 79832-8] Goal Plan of Care Note [code = 20768-2] Goal Plan of Care Note [code = 19865-4] Goal Plan of Care Note [code = 02835-9] Goal Plan of Care Note [code = 41850-1] Goal Plan of Care Note [code = 98559-1] Goal Plan of Care Note [code = 99268-9] Goal Plan of Care Note [code = 96330-4] Goal Plan of Care Note [code = 24159-6] Goal Plan of Care Note [code = 56046-7] Goal Plan of Care Note [code = 31244-9] Goal Plan of Care Note [code = 99627-9] Goal Plan of Care Note [code = 41004-9] Goal Plan of Care Note [code = 17025-7] Goal Plan of Care Note [code = 11998-9] Encounters Start End Encounter Admission Attending Care Care Encounter Source Date/Time Date/Time Type Type Clinicians Facility Department ID 2021-08-20 Emergency [facility] [id number] Univers 08:51:37 ity [facility] 2023-06-16 2023-06-16 [facility] 1.2.840.114 [id number] Univers 00:00:00 00:00:00 Laura BARLOW [id number] i ty of [place] [facility] [place] [facility] [id number] [address] 2023-06-09 2023-06-09 [facility] 1.2.840.114 [id number] Univers 00:00:00 00:00:00 Laura [facility] [id number] it y of [facility] 4.2.7.2.686 Jorge Alberto [place] [phone] [address] OFFICE [facility] 2023-06-06 2023-06-06 [facility] 1.2.840.114 [id number] Univers 00:00:00 00:00:00 Laura [facility] [id number] it y of [facility] 4.2.7.2.686 Jorge Alberto as [place] [id number] [address] OFFICE [facility] 2023-06-04 2023-06-04 [facility] [id number] Univers 10:00:00 10:00:00 LAURA ity [facility] 2023-05-23 2023-05-23 [facility] 1.2.840.114 [id number] Univers 16:51:14 23:59:00 Encounter Feroz BAR[place] [id number] ity [facility] 4[place]7.2.[place] [id number] [facility] [address] 2023-05-23 2023-05-23 [facility] [id number] Univers 16:50:23 16:50:00 FEROZ ity [facility] 2023-05-23 2023-05-23 [facility] 1.2.840.114 [id number] Univers 16:30:00 16:50:00 Encounter Feroz [place] 350.1.13.10 [place] [id number] [facility] [address] 2023-05-10 2023-05-10 [facility] 1.2.840.114 [id number] Univers 00:00:00 00:00:00 [facility] [id number] it y of [place] 4.2.7.2.686 Jorge Alberto as [place]A [id number] [address] OFFICE [facility] 2023-05-05 2023-05-05 Telephone [facility] 1.2.840.114 [id number] Univers 00:00:00 00:00:00 [facility] [id number] it y of [place] [facility] 4.2.7.2.686 Jorge Alberto [place] [id number] [address] 2023-05-02 2023-05-02 [facility] [id number] Univers 00:00:00 00:00:00 [facility] 2023-04-25 2023-04-25 [facility] [id number] Univers 00:00:00 00:00:00 [facility] 2023-04-08 2023-04-08 [facility] 1.2.840.114 [id number] Univers 00:00:00 00:00:00 [facility] [id number] it y of [place] 4.2.7.2.686 Jorge Alberto as [place]?BLEA [id number] [address] 2023-04-03 2023-04-03 [facility] 1.2.840.114 [id number] Univers 00:00:00 00:00:00 [facility] [id number] it y of [place] 4.2.7.2.686 Jorge Alberto as [place]?BLEA [id number] [address] 2023-03-10 2023-03-10 Telephone [facility] 1.2.840.114 [id number] [facility] 00:00:00 00:00:00 [facility] HEALTH 350.1.13.10 it y of [place] 4.2.7.2.686 Jorge Alberto as [place]?BLEA [id number] [address] OFFICE [facility] 2023-03-08 2023-03-08 [facility] 1.2.840.114 [id number] Univers 00:00:00 00:00:00 Laura HEALTH 350.1.13.10 it y of [place] 4.2.7.2.686 Jorge Alberto as [place]A [id number] [address] OFFICE [facility] 2023-03-07 2023-03-07 [facility] 1.2.840.114 [id number] [facility] 00:00:00 00:00:00 [facility] [id number] it y of [place] 4.2.7.2.686 Jorge Alberto as [place]?BLEA [id number] [address] OFFICE [facility] 2023-03-07 2023-03-07 Telephone [facility] 1.2.840.114 [id number] Univers 00:00:00 00:00:00 [facility] HEALTH [id number] it y of [place] 4.2.7.2.686 Jorge Alberto as [place]?BLEA [id number] [address] OFFICE [facility] 2023-02-17 2023-02-17 Telephone [facility] 1.2.840.114 [id number] Univers 00:00:00 00:00:00 [facility] [id number] it y of [place] 4.2.7.2.686 Jorge Alberto as [place]?BLEA [id number] [address] OFFICE [facility] 2023-02-15 2023-02-15 Outpatient R ONEYDA [facility] [id number] [facility] 17:30:00 17:41:[address] [facility] 2023-02-15 2023-02-15 Nurse Nurse, [facility] 1.2.840.114 [id number] Univers 17:30:00 17:41:47 Visit Unknown, Attending [facility] 350.1.13.10 ity of Isabell Callpatylois YEN 4.2.7.2.686 [place]?BLEA [id number] [facility] [address] MEDICAL OFFICE [facility] 2023-02-15 2023-02-15 Outpatient R UNKNOWN, [facility] [id number] Univers 17:20:00 17:20:00 ATTENDING [facility] 2023-02-07 2023-02-07 Urgent Vivienne Holt [facility] 1.2.840.114 [id number] Univers 09:20:00 09:40:00 Care Unknown, Attending [facility] [id number] ity of YEN 4.2.7.2.686 Jorge Alberto as [place]?BLEA [id number] [address] OFFICE [facility] 2023-02-07 2023-02-07 Outpatient R UNKNOWN, ATTENDING [facility] [id number] Univers 09:20:00 09:20:00 VIVIENNE HOLT [facility] 2023-02-03 2023-02-03 Office [facility] 1.2.840.114 [id number] Univers 10:15:00 10:30:[address] [facility] 350.1.13.10 it y of [place] 4.2.7.2.686 Jorge Alberto as HI?BLEA [id number] [facility] [address] MEDICAL OFFICE [facility] 2023-02-03 2023-02-03 Outpatient R RUBY [facility] [id number] Univers 10:15:00 10:15:00 LAURA [facility] 2023-01-23 2023-01-23 Outpatient R RUBY [facility] [id number] Univers 10:00:00 10:00:00 [facility] 2023-01-06 2023-01-06 Refill Ruby [facility] 1.2.840.114 [id number] Univers 00:00:00 00:00:00 [facility] 350.1.13.10 it y of Edward YEN 4.2.7.2.686 Jorge Alberto as HI?BLEA [id number] [facility] [address] MEDICAL OFFICE [facility] 2023-01-04 2023-01-04 Telephone Provider, [facility] 1.2.840.114 [id number] Univers 00:00:00 00:00:00 Ang Db HEALTH 350.1.13.10 it y of Urgent Care [place] 4.2.7.2.686 [place] HI?BLEA [phone] [address] OFFICE [facility] 2023-01-03 2023-01-03 Outpatient R NARESH [facility] [id number] Univers 16:40:00 17:14:[address] [facility] 2023-01-03 2023-01-03 Urgent Flor Infante [facility] 1.2.840.114 [id number] Univers 16:40:00 17:14:19 Care Unknown, [facility] HEALTH 350.1.13.10 ity of [place] 4.2.7.2.686 Jorge Alberto as HI?BLEA [id number] [address] OFFICE [facility] 2023-01-03 2023-01-03 Orders Doctor DESTINEY 1.2.840.114 [id number] Univers 00:00:00 00:00:00 Only Unassigned, IJEOMA 350.1.13.10 ity of [place] [facility] 4.2.7.2.686 Jorge Alberto as [phone] [address] 2023-01-03 2023-01-03 Letter Naresh [facility] 1.2.840.114 [id number] Univers 00:00:00 00:00:00 (Out) Flor HEALTH 350.1.13.10 it [facility] 4.2.7.2.686 Jorge Alberto as HI?BLEA [phone] [address] MEDICAL OFFICE [facility] 2023-01-02 2023-01-02 Ming Beltran [facility] 1.2.840.114 [id number] Univers 00:00:00 00:00:00 Laura HEALTH 350.1.13.10 it y of [place] 4.2.7.2.686 Jorge Alberto as HI?BLEA [phone] [address] MEDICAL OFFICE [facility] 2022-12-28 2022-12-28 [facility] 1.2.840.114 [id number] Univers 00:00:00 00:00:00 Trena A HEALTH 350.1.13.10 i ty of [place] 4.2.7.2.686 Jorge Alberto as HI?BLEA [id number] [address] OFFICE [facility] 2022-12-26 2022-12-26 Outpatient [facility] [id number] Wall 00:00:00 00:00:00 [facility] 2022-12-24 2022-12-24 Orders Doctor DESTINEY 1.2.840.114 [id number] Univers 00:00:00 00:00:00 Only Unassigned, IJEOMA 350.1.13.10 [facility] 4.2.7.2.686 Jorge Alberto as [phone] [address] 2022-12-06 2022-12-06 Out[facility] [id number] Univers 09:30:00 09:56:[address] [facility] 2022-12-06 2022-12-06 [facility] 1.2.840.114 [id number] Univers 09:30:00 09:56:07 Visit Trena Oh HEALTH 350.1.13.10 i ty of [place] 4.2.7.2.686 Jorge Alberto as HI?BLEA [id number] [address] OFFICE [facility] 2022-12-06 2022-12-06 Outpatient [facility] [id number] Univers 07:00:00 07:00:[address] [facility] 2022-12-05 2022-12-05 [facility] 1.2.840.114 [id number] Univers 00:00:00 00:00:00 [facility] 350.1.13.10 it y of [place] 4.2.7.2.686 Jorge Alberto as HI?BLEA [phone] [address] OFFICE [facility] 2022-11-20 2022-11-20 Outpatient Casey TAN [facility] [id number] Univers 15:30:00 16:22:49 VAUGHN bates [facility] 2022-11-20 2022-11-20 Office [facility] 1.2.840.114 [id number] Univers 15:30:00 16:22:49 Visit Vaughn ALFORD 350.1.13.10 it y of [place] 4.2.7.2.686 Jorge Alberto as HI?BLEA [phone] Nm fuentes OCHOA [address] [place] [address] OFFICE [facility] 2022-11-19 2022-11-19 Outpatient Casey ALARCON [facility] [id number] Univers 09:30:00 09:30:00 ARNEL bates [facility] 2022-11-14 2022-11-14 Outpatient [facility] [id number] Ignacio 11:59:29 11:59:29 0126 F Yan 2022-11-13 2022-11-13 [facility] ..840.114 100 [id number] Univers 00:00:00 00:00:00 [facility] 350.1.13.10 it y of [place] 4.2.7.2.686 Jorge Alberto as HI?BLEA [phone] Nm fuentes [address] 2022-11-12 2022-11-12 Outpatient [facility] [id number] Ignacio 09:48:10 09:48:10 0124 [facility] 2022-11-12 2022-11-12 Outpatient [id number] fc [id number] 00:00:00 00:00:00 Visit [id number] 2022-11-11 2022-11-11 [facility] [id number] Univers 09:15:00 09:15:00 LAURA bates [facility] 2022-10-30 2022-10-30 [facility] .2.840.114 [id number] Univers 00:00:00 00:00:00 Laura [facility] 350.1.13.10 it y of [place] 4.2.7.2.686 Jorge Alberto as HI?BLEA [phone] Nm fuentes OCHOA [address] [place] [address] MEDICAL OFFICE [facility] 2022-10-10 2022-10-10 Telephone [facility] 1.2.840.114 [id number] Univers 00:00:00 00:00:00 [facility] 350.1.13.10 it y of [place] 4.2.7.2.686 Jorge Alberto as HI?BLEA [phone] Nm fuentes BACON[address] OFFICE [facility] 2022-10-07 2022-10-07 [facility] 1.2.840.114 [id number] Univers 00:00:00 00:00:00 [facility] 350.1.13.10 it y of [place] 4.2.7.2.686 Jorge Alberto as HI?BLEA [phone] [address] OFFICE [facility] 2022-09-25 2022-09-25 Outpatient R [facility] [id number] Univers 11:00:00 11:20:[address] [facility] 2022-09-25 2022-09-25 Office [facility] 1.2.840.114 [id number] [facility] 11:00:00 11:20:[address] [facility] 350.1.13.10 it y of [place] 4.2.7.2.686 Jorge Alberto as HI?BLEA [phone] [address] OFFICE [facility] 2022-09-03 2022-09-03 Refill [facility] 1.2.840.114 [id number] [facility] 00:00:00 00:00:00 [facility] 350.1.13.10 it y of [place] 4.2.7.2.686 Jorge Alberto as HI?BLEA [phone] Nm monica[address] OFFICE [facility] 2022-08-09 2022-08-09 [facility] 1.2.840.114 [id number] Univers 00:00:00 00:00:00 [facility] 350.1.13.10 it y of [place] 4.2.7.2.686 Jorge Alberto as HI?BLEA [phone] [address] MEDICAL OFFICE [facility] 2022-08-08 2022-08-08 Telephone [facility] 1.2.840.114 [id number] Univers 00:00:00 00:00:00 Laura HEALTH 350.1.13.10 it y of [place] 4.2.7.2.686 Jorge Alberto as HI?BLEA [id number] [address] MEDICAL OFFICE [facility] 2022-08-07 2022-08-07 Emergency X [facility] ERT [id number] Univers 15:19:00 21:35:00 [facility] 2022-08-07 2022-08-07 Emergency [facility] 1.2.127.188 [id number] Univers 15:19:00 21:35:00 [facility] 350.1.13.10 it y of [place] 4.2.7.2.686 [place] [phone] [address] ([facility]) 2022-07-10 2022-07-10 Telephone [facility] 1.2.840.114 [id number] Univers 00:00:00 00:00:00 [facility] HEALTH 350.1.13.10 it y of [place] 4.2.7.2.686 Jorge Alberto as HI?BLEA [id number] [address] MEDICAL OFFICE [facility] 2022-07-09 2022-07-09 Outpatient R [facility] [id number] Univers 09:15:00 09:44:28 [facility] 2022-07-09 2022-07-09 Office [facility] 1.2.840.114 [id number] Univers 09:15:00 09:30:00 Visit [facility] HEALTH 350.1.13.10 it y of [place] 4.2.7.2.686 Jorge Alberto as HI?BLEA [phone] [address] OFFICE [facility] 2022-07-09 2022-07-09 Telephone [facility] 1.2.840.114 [id number] Univers 00:00:00 00:00:00 Laura HEALTH 350.1.13.10 it y of [place] 4.2.7.2.686 Jorge Alberto as HI?BLEA [phone] Nm monica[address] MEDICAL OFFICE [facility] 2022-06-04 2022-06-04 Outpatient R [facility] [id number] Univers 13:15:00 13:32:49 LAURA bates [facility] 2022-06-04 2022-06-04 Office [facility] 1.2.840.114 [id number] Univers 13:15:00 13:30:[address] [facility] 350.1.13.10 it y of [place] 4.2.7.2.686 Jorge Alberto as HI?BLEA [id number] [address] OFFICE [facility] 2022-06-04 2022-06-04 Outpatient R [facility] [id number] Univers 13:15:00 13:15:00 LAURA [facility] 2022-04-28 2022-04-28 Emergency X [facility] ERT [id number] Univers 11:37:00 12:24:00 MUNDO [facility] 2022-04-28 2022-04-28 [facility] 1.2.840.114 [id number] Univers 11:37:00 12:24:00 Mundo [place] 350.1.13.10 i ty of [place] 4.2.7.2.686 [place] [phone] [facility] [address] 2022-04-28 2022-04-28 Letter Lora Gould 1.2.840.114 [id number] Univers 00:00:00 00:00:00 (Out) IJEOMA 350.1.13.10 it y of [facility] 4.2.7.2.686 Jorge Alberto as [phone] [facility] [address] 2021-07-18 2021-07-18 Office [facility] 1.2.840.114 [id number] Univers 14:56:51 15:32:09 Visit [facility] 350.1.13.10 it y of [place] 4.2.7.2.686 Jorge Alberto as Hi?Blea [phone] Nm fuentes ochoa [address] [place] [address] Medical Office Building 2021-07-18 2021-07-18 Outpatient R RUBY [facility] [id number] Univers 15:00:00 15:00:[address] [facility] 2021-05-30 2021-05-30 Orders Doctor DESTINEY 1.2.840.114 [id number] Univers 00:00:00 00:00:00 Only Unassigned, IJEOMA 350.1.13.10 ity of [place] [facility] 4.2.7.2.686 Jorge Alberto as [phone] [address] 2021-05-25 2021-05-25 Telephone [facility] 1.2.840.114 [id number] Univers 00:00:00 00:00:00 [facility] 350.1.13.10 it y of [place] 4.2.7.2.686 Jorge Alberto as Professio [phone] Nm fuentes monte [address] [place] [address] Office [facility] One 2021-05-25 2021-05-25 Telephone [facility] 1.2.840.114 [id number] 00:00:00 00:00:00 [facility] 350.1.13.10 [place] 4.2.7.2.686 Professio [phone] [place] [address] Office [facility] One 2021-05-21 2021-05-21 [facility] 1.2.840.114 [id number] Univers 00:00:00 00:00:00 [facility] 350.1.13.10 it y of [place] 4.2.7.2.686 Jorge Alberto as Professio [phone] [address] Office Building One 2021-05-21 2021-05-21 [facility] 1.2.840.114 [id number] 00:00:00 00:00:00 [facility] 350.1.13.10 [place] 4.2.7.2.686 Professio [phone] [place] [address] Office Building One 2021-05-05 2021-05-05 Emergency [facility] 1.2.233.610 [id number] Univers 11:42:00 13:42:00 Marc [place] 350.1.13.10 i ty of [place] 4.2.7.2.686 [place] [phone] [address] 2021-05-05 2021-05-05 Emergency [facility] 1.2.806.543 [id number] 11:42:00 13:42:00 Marc [place] 350.1.13.10 [place] 4.2.7.2.686 [place] [phone] [facility] 2021-05-04 2021-05-04 Telephone [facility] 1.2.233.575 [id number] Univers 00:00:00 00:00:00 [facility] Health 350.1.13.10 ity of [place] 4.2.7.2.686 Jorge Alberto as Professio [phone] Nm dic[address] Office [facility] One 2021-05-04 2021-05-04 Telephone [facility] 1.2.504.770 [id number] 00:00:00 00:00:00 [facility] Health 350.1.13.10 [place] 4.2.7.2.686 Professio [phone] [place] [address] Office [facility] One 2021-05-03 2021-05-03 Urgent [facility] 1.2.840.114 [id number] [facility] 17:09:02 17:56:38 Care [facility] 350.1.13.10 ity of [place] 4.2.7.2.686 Jorge Alberto as Professio [phone] Nm dic[address] Office Building One 2021-05-03 2021-05-03 Urgent [facility] 1.2.840.114 [id number] 17:09:02 17:56:38 Care [facility] Health 350.1.13.10 [place] 4.2.7.2.686 Professio [id number] [place] [address] Office [facility] One 2021-05-03 2021-05-03 Outpatient R [facility] [id number] Univers 17:20:00 17:20:[address] [facility] 2021-04-25 2021-04-25 Office [facility] 1.2.840.114 [id number] 10:32:12 10:47:12 Visit [facility] 350.1.13.10 [place] 4.2.7.2.686 Professio [phone] nal [address] [place] [address] One 2021-04-25 2021-04-25 Office [facility] 1.2.840.114 [id number] Univers 10:32:12 10:47:12 Visit [facility] 350.1.13.10 it y of [place] 4.2.7.2.686 Jorge Alberto as Professio [id number] Nm dical [address] One 2021-04-25 2021-04-25 [facility] [id number] Univers 10:30:00 10:30:00 LAURA [facility] 2021-04-25 2021-04-25 Orders Doctor CABELLO 1.2.840.114 [id number] 00:00:00 00:00:00 Only Unassigned, IJEOMA 350.1.13.10 [place] [facility] 4.2.7.2.686 [id number] 009 2021-04-25 2021-04-25 Orders Doctor DESTINEY 1.2.840.114 [id number] Univers 00:00:00 00:00:00 Only Unassigned, IJEOMA 350.1.13.10 ity of [place] [facility]ITAL 4.2.7.2.686 Jorge Alberto as [phone] [address] 2021-04-19 2021-04-19 Orders Doctor DESTINEY 1.2.840.114 [id number] Univers 00:00:00 00:00:00 Only Unassigned, IJEOMA 350.1.13.10 ity of [place] [facility]OSPITAL 4.2.7.2.686 Jorge Alberto as [phone] [address] 2021-04-11 2021-04-11 Outpatient R SUDHA [facility] [id number] Univers 15:30:00 15:30:00 JORDAN [facility] 2021-03-28 2021-03-28 Office [facility] 1.2.840.114 [id number] Univers 09:16:27 09:46:27 Visit [facility] 350.1.13.10 it y of [place] 4.2.7.2.686 Jorge Alberto as Professio [phone] Nm dical nal [address] Office Building One 2021-03-28 2021-03-28 Outpatient R RUBY [facility] [id number] Univers 09:30:00 09:30:00 LAURA castañeday [facility] 2020-11-25 2020-11-26 Emergency [facility] 1.2.840.114 [id number] Univers 22:09:00 00:35:00 Jhoana [place] 350.1.13.10 ity [place] 4.2.7.2.686 [place] [phone] [facility] [address] 2020-11-25 2020-11-26 Emergency [facility] ERT [id number] Univers 22:09:00 00:35:00 JHOANA castañeday [facility] 2020-10-17 2020-10-17 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 13.10 ity [place] 4.2.7.2.686 [place] Profess[place] [phone] [facility] 353 [facility] 2020-10-17 2020-10-17 Outpatient Casey COCHRAN [facility] 1030 [id number] Univers 11:00:00 11:00:00 CRISTAL bates [facility] 2020-10-17 2020-10-17 Orders Doctor CABELLO 1.2.840.114 [id number] Univers 00:00:00 00:00:00 Only Unassigned, IJEOMA 350.1.13.10 ity of [place] [facility] 4.2.7.2.686 Jorge Alberto as [phone] [facility] [address] 2020-10-05 2020-10-05 Emergency [facility] E[facility] [id number] Univers 09:47:00 15:13:00 KELSI bates [facility] 2020-10-05 2020-10-05 [facility] 1.2.840.114 [id number] [facility] 09:47:00 15:13:00 Kelsi [place] 350.1.13.10 [place] 4.2.7.2.686 [facility] [phone] [place] [address]354 Branch Results Test Description Test Time Test Comments Results Result Comments Source POCT SARS-COV-2 ANTIGEN (BINAX NOW) 2023-02-07 15:14:00 Test Item Value Reference Range Interpretation Comme nts POCT SARS-COV-2 ANTIGEN (test code Not Detected Not Detected = 38553-3) On board controls acceptable with Yes C Line (test code = 3574) GALLO (test code = GALLO) accurate development and interpretation of all internal controls Lab Interpretation (test code = Normal 05732-9) [facility] MOLECULAR [id number] 15:10:42 Test Item Value Reference Range Interpretation Comments POCT Molecular FluA (test code = Positive Negative A 79906-6) Lab Interpretation (test code = Abnormal 88954-4) [facility] MOLECULAR [id number] 14:59:48 Test Item Value Reference Range Interpretation Comments POCT Molecular Strep (test code = Negative Negative 74262-2) Lab Interpretation (test code = Normal 49815-4) [facility], [id number] 22:34:41 Test Item Value Reference Range Interpretation Comments PREG SERUM (test code Negative = 3266794791) GALLO (test code = GALLO) Less than 10 IU/L. ?If low titer or ectopic is suspected, resubmit specimen in 48-72 hours. [facility] WorthTROPONIN [id number] 22:33:51 Test Item Value Reference Interpretation Comments Range TROPONIN I (test 0.002 ng/mL See_Comment [Automated code = 5742932693) message] The system which generated this result [...] biotin. Lab Interpretation Normal (test code = 13231-6) [facility] Worth[facility]ALICYLATE2022-10-19 22:27:20 SALICYLATE<10mg/L1 5:27 PM [facility]ITALTherapeutic Range: ? Analgesic and Antipyretic Use ? 20-100 mg/L ? ? Anti-Inflammatory Use ? 100-250 mg/L Toxic Range: ? Greater than 300 mg/LUnMethodist [facility] [id number] 22:27:15ALCOHOL<10mg/dL08/07/2022 5:27 PM [facility]ITALToxic Greater thanor equal to 80 mg/dL. NOTE: Whole blood values are approximately 10% to 15% lower than serum and plas ma.[facility] WorthACETAMINOPHEN2022-10-19 22:27:10 Test Item Value Reference Range Interpretation Comments ACETAMINOP (test code = 10-30 L 3922309987) GALLO (test code = GALLO) Toxic: Greater than 200 ug/mL @ 4 hour post ingestion or greater than 50 ug/mL @ 12 hour post ingestion Lab Interpretation (test Abnormal code = 72903-7) [facility] WorthBASIC METABOLIC PANEL (NA, K, CL, CO2, GLUCOSE, BUN, CREATININE, CA)2022-08-07 22:23:27 Test Item Value Reference Range Interpretation Comments NA (test code = 138 mmol/L 135-145 6420353560) K (test code = 3.9 mmol/L 3.5-5 3452120560) CL (test code = 102 mmol/L 98-108 0201154825) CO2 TOTAL (test code 27 mmol/L 23-31 = 6732952664) AGAP (test code = 2-16 5850884961) BUN (test code = 16 mg/dL 7-23 2925834958) GLUCOSE (test code = 87 mg/dL 70-110 6785916816) CREATININE (test code 0.69 mg/dL 0.5-1.04 = 0446402325) CALCIUM (test code = 9.7 mg/dL 8.6-10.6 8542757878) eGFR (test code = mL/min/1.73m2 4148647658) GALLO (test code = GALLO) Association of [...] or urine or abnormalities in imaging tests). [facility] WorthCREATINE [id number] 22:23:27 Test Item Value Reference Range Interpretation Comments CK (test code = 9377724798) 45 U/L 33-194 Lab Interpretation (test code = Normal 91156-6) [facility] WorthHEPATIC FUNCTION PANEL (31705) (ALB,T.PRO,BILI T,BU/BC,ALT,AST,ALK PHOS)2022-08-07 22:23:27 Test Item Value Reference Range Interpretation Comments TOTAL BILI (test code = 3947007388) 0.7 mg/dL 0.1-1.1 BILI UNCON (test code = 8872563174) 0.3 mg/dL 0.1-1.1 BILI CONJ (test code = 7004863156) 0.0 mg/dL 0-0.3 T PROTEIN (test code = 7602771241) 7.4 g/dL 6.3-8.2 ALBUMIN (test code = 9389503227) 4.4 g/dL 3.5-5 ALK PHOS (test code = 4460668155) 80 U/L 34-122 ALTv (test code = 1742-6) 15 U/L 5-35 AST(SGOT) (test code = 9498484809) 15 U/L 13-40 Lab Interpretation (test code = Normal 50278-8) [facility] WorthLIPASE2022-10-19 22:23:27 Test Item Value Reference Range Interpretation Comments LIPASE (test code = 5289135530) 51 U/L 0-220 Lab Interpretation (test code = Normal 51952-6) [facility] WITH [id number] 22:06:06 Test Item Value Reference Range Interpretation Comments WBC (test code = See_Comment H [Automated 7649-2) message] The sy stem which generated this result transmitted reference range : 4.30 - 11.10 10*3/?L. The reference range was not used to interpret this result as normal/abnormal . RBC (test code = See_Comment [Automated 133-8) message] The sy stem which generated this [...] RDW-SD (test code = 40.6 fL 39-49.9 26886-4) RDW-CV (test code = 13.1 % 12-15.5 788-0) PLT (test code = See_Comment H [Automated 777-3) message] The sy stem which generated this result transmitted reference range : 166 - 358 10*3/ ?L. The reference r deb was not used to interpret this result as normal/abnormal . MPV (test code = 10.1 fL 9.5-12.9 09204-1) NRBC/100 WBC (test See_Comment [Automat ed code = 6079941726) message] The system which generated this result transmitted reference range : 0.0 - 10.0 /100 WBCs. The refer ence range was not u sed to interpret th is result as normal/abnormal . NRBC x10^3 (test code See_Comment [Auto mated = 7643914181) message] The s ystem which generated this result transmitted reference range : 10*3/?L. The reference range was not used to interpret this result as normal/abnormal . GRAN MAT (NEUT) % 62.7 % (test code = 770-8) IMM GRAN % (test code 0.40 % = 5279726289) LYMPH % (test code = 25.7 % 736-9) MONO % (test code = 7.8 % 5905-5) EOS % (test code = 2.8 % 713-8) BASO % (test code = 0.6 % 706-2) GRAN MAT x10^3(ANC) 8.40 10*3/uL 1.88-7.09 H (test code = 6446369574) IMM GRAN x10^3 (test 0.06 10*3/uL 0-0.06 code = 2947925197) LYMPH x10^3 (test code 3.44 10*3/uL 1.32-3.29 H = 731-0) MONO x10^3 (test code 1.04 10*3/uL 0.33-0.92 H = 742-7) EOS x10^3 (test code = 0.38 10*3/uL 0.03-0.39 711-2) BASO x10^3 (test code 0.08 10*3/uL 0.01-0.07 H = 704-7) Lab Interpretation Abnormal (test code = 95101-5) [facility] (HIGH RISK) 2021-06-29 00:00:00 Test Item Value Reference Range Interpretation Comments SARS-CoV-2 INTERPRETATION (test NEGATIVE code = 07941) SOURCE (test code = 09024) NOT SPECIFIED SARS-CoV-2 (COVID-19) by RT-PCR (HIGH RISK)2021-06-29 00:00:00 Test Item Value Reference Range Interpretation Comments SARS-CoV-2 INTERPRETATION (test NEGATIVE code = 86009) SOURCE (test code = 32633) NOT SPECIFIED COMPREHENSIVE METABOLIC [id number] 00:00:00 Test Item Value Reference Range Interpretation Comments GLUCOSE (test code = 2217) 92 MG/DL BUN (test code = 2208) 11 MG/DL CREATININE (test code = 2214) 0.80 MG/DL eGFR AMER. (test code 108 ML/MIN/1.73 = 06856) eGFR NON- AMER. (test 94 ML/MIN/1.73 code = 11803) CALC BUN/CREAT (test code = 14 RATIO [...] CALC GLOBULIN (test code = 2.3 G/DL 0) CALC A/G RATIO (test code = 1.9 RATIO 4) BILIRUBIN, TOTAL (test code = 0.3 MG/DL 2206) ALKALINE PHOSPHATASE (test 55 U/L code = 2204) AST (test code = 2218) 13 U/L ALT (test code = 2219) 11 U/L COMPREHENSIVE METABOLIC [id number] 00:00:00 Test Item Value Reference Range Interpretation Comments GLUCOSE (test code = 2217) 92 MG/DL BUN (test code = 2208) 11 MG/DL CREATININE (test code = 2214) 0.80 MG/DL eGFR AMER. (test code 108 ML/MIN/1.73 = 42340) eGFR NON- AMER. (test 94 ML/MIN/1.73 code = 53969) CALC BUN/CREAT (test code = 14 RATIO 2235) SODIUM (test code = 2231) 142 MEQ/L POTASSIUM (test code = 2228) 4.3 MEQ/L CHLORIDE (test code = 2215) 106 MEQ/L CARBON DIOXIDE (test code = 27 MEQ/L 2205) CALCIUM (test code = 2209) 9.3 MG/DL PROTEIN, TOTAL (test code = 6.6 G/DL 2228) ALBUMIN (test code = 220) 4.3 G/DL CALC GLOBULIN (test code = 2.3 G/DL 2239) CALC A/G RATIO (test code = 1.9 RATIO 2233) BILIRUBIN, TOTAL (test code = 0.3 MG/DL 2206) ALKALINE PHOSPHATASE (test 55 U/L code = 2204) AST (test code = 2218) 13 U/L ALT (test code = 2219) 11 U/L [id number] 00:00:00 Test Item Value Reference Range Interpretation Comments AMYLASE (test code = 2205) 52 U/L [id number] 00:00:00 Test Item Value Reference Range Interpretation Comments AMYLASE (test code = 2205) 52 U/L [id number] 00:00:00 Test Item Value Reference Range Interpretation Comments LIPASE (test code = 2057) 20 U/L [id number] 00:00:00 Test Item Value Reference Range Interpretation Comments LIPASE (test code = 2057) 20 U/L [id number] 00:00:00 Test Item Value Reference Range Interpretation Comments LIPASE (test code = 2057) 20 U/L CULTURE, URINE [ADDED]2021-01-20 00:00:00 Test Item Value Reference Range Interpretation Comments CULTURE, URINE (test SPECIMEN NUMBER: code = 02603) [id number] CULTURE, URINE [ADDED]2021-01-20 00:00:00 Test Item Value Reference Range Interpretation Comments CULTURE, URINE (test SPECIMEN NUMBER: code = 03438) [id number] GC, AMPLIFIED, [id number] 00:00:00 Test Item Value Reference Range Interpretation Comments GONORRHEA, NAAT (test code = 88113) NEGATIVE GC, AMPLIFIED, [id number] 00:00:00 Test Item Value Reference Range Interpretation Comments GONORRHEA, NAAT (test code = 26320) NEGATIVE [id number] 00:00:00 Test Item Value Reference Range Interpretation Comments RPR RESULT (test code = NON-REACTIVE 3501) RPR TITER (test code = 3500) NOT INDIC. TITER [id number] 00:00:00 Test Item Value Reference Range Interpretation Comments RPR RESULT (test code = NON-REACTIVE 3501) RPR TITER (test code = 3500) NOT INDIC. TITER [id number] 00:00:00 Test Item Value Reference Range Interpretation Comments RPR RESULT (test code = NON-REACTIVE 3501) RPR TITER (test code = 3500) NOT INDIC. TITER VAGINAL PATHOGENS DNA [id number] 00:00:00 Test Item Value Reference Range Interpretation Comments CONRAD SPECIES (test code = 21256) NEGATIVE G. VAGINALIS (test code = 25305) POSITIVE T. VAGINALIS (test code = 10503) NEGATIVE VAGINAL PATHOGENS DNA [id number] 00:00:00 Test Item Value Reference Range Interpretation Comments CONRAD SPECIES (test code = 99125) NEGATIVE G. VAGINALIS (test code = 94100) POSITIVE T. VAGINALIS (test code = 47294) NEGATIVE HIV AB/AG COMBO RFLX [id number] 00:00:00 Test Item Value Reference Range Interpretation Comments HIV 1/2 4TH GEN, RFLX CONF (test NON-REACTIVE code = 3514) HIV AB/AG COMBO RFLX [id number] 00:00:00 Test Item Value Reference Range Interpretation Comments HIV 1/2 4TH GEN, RFLX CONF (test NON-REACTIVE code = 3514) ACUTE HEPATITIS [id number] 00:00:00 Test Item Value Reference Range Interpretation Comments HEPATITIS A IgM (test code = NON-REACTIVE 30464) HEPATITIS B CORE IgM (test code NON-REACTIVE = 5144) HEPATITIS B SURF AG (test code = NON-REACTIVE 9019) HEPATITIS C ANTIBODY (test code NON-REACTIVE = 7375) INTERPRETATION HEPATITIS A: (NOTE) (test code = 2552) INTERPRETATION HEPATITIS B: (NOTE) (test code = 50781) INTERPRETATION HEPATITIS C: (NOTE) (test code = 16950) ACUTE HEPATITIS [id number] 00:00:00 Test Item Value Reference Range Interpretation Comments HEPATITIS A IgM (test code = NON-REACTIVE 83141) HEPATITIS B CORE IgM (test code NON-REACTIVE = 4644) HEPATITIS B SURF AG (test code = NON-REACTIVE 2739) HEPATITIS C ANTIBODY (test code NON-REACTIVE = 4675) INTERPRETATION HEPATITIS A: (NOTE) (test code = 2552) INTERPRETATION HEPATITIS B: (NOTE) (test code = 04149) INTERPRETATION HEPATITIS C: (NOTE) (test code = 19931) CHLAMYDIA, AMPLIFIED, [id number] 00:00:00 Test Item Value Reference Range Interpretation Comments CHLAMYDIA, NAAT (test code = 23322) NEGATIVE CHLAMYDIA, AMPLIFIED, [id number] 00:00:00 Test Item Value Reference Range Interpretation Comments CHLAMYDIA, NAAT (test code = 65203) NEGATIVE CULTURE, [id number] 00:00:00 Test Item Value Reference Range Interpretation Comments CULTURE, URINE (test SPECIMEN NUMBER: code = 26911) [id number] CULTURE, [id number] 00:00:00 Test Item Value Reference Range Interpretation Comments CULTURE, URINE (test SPECIMEN NUMBER: code = 28701) [id number] CULTURE, [id number] 00:00:00 Test Item Value Reference Range Interpretation Comments CULTURE, URINE (test SPECIMEN NUMBER: code = 33908) [id number] CULTURE, [id number] 00:00:00 Test Item Value Reference Range Interpretation Comments CULTURE, URINE (test SPECIMEN NUMBER: code = 74809) [id number] SARS-CoV-2 (COVID-19) by RT-PCR (HIGH RISK)2020-11-03 00:00:00 Test Item Value Reference Range Interpretation Comments SARS-CoV-2 INTERPRETATION (test NEGATIVE code = 20930) SOURCE (test code = 82756) NOT SPECIFIED SARS-CoV-2 (COVID-19) by RT-PCR (HIGH RISK)2020-11-03 00:00:00 Test Item Value Reference Range Interpretation Comments SARS-CoV-2 INTERPRETATION (test NEGATIVE code = 47027) SOURCE (test code = 62998) NOT SPECIFIED CHLAMYDIA, AMPLIFIED, [id number] 00:00:00 Test Item Value Reference Range Interpretation Comments CHLAMYDIA, NAAT (test code = 45040) NEGATIVE CHLAMYDIA, AMPLIFIED, [id number] 00:00:00 Test Item Value Reference Range Interpretation Comments CHLAMYDIA, NAAT (test code = 05962) NEGATIVE GC, AMPLIFIED, [id number] 00:00:00 Test Item Value Reference Range Interpretation Comments GONORRHEA, NAAT (test code = 20362) NEGATIVE GC, AMPLIFIED, [id number] 00:00:00 Test Item Value Reference Range Interpretation Comments GONORRHEA, NAAT (test code = 10738) NEGATIVE VAGINAL PATHOGENS DNA [id number] 00:00:00 Test Item Value Reference Range Interpretation Comments CONRAD SPECIES (test code = 71148) NEGATIVE G. VAGINALIS (test code = 86310) POSITIVE T. VAGINALIS (test code = 78608) NEGATIVE VAGINAL PATHOGENS DNA [id number] 00:00:00 Test Item Value Reference Range Interpretation Comments CONRAD SPECIES (test code = 51821) NEGATIVE G. VAGINALIS (test code = 55252) POSITIVE T. VAGINALIS (test code = 65211) NEGATIVE GC, AMPLIFIED, [id number] 00:00:00 Test Item Value Reference Range Interpretation Comments GONORRHEA, TMA (test code = 73398) NEGATIVE [id number] 00:00:00 Test Item Value Reference Range Interpretation Comments RPR RESULT (test code = NON-REACTIVE 3501) RPR TITER (test code = 3500) NOT INDIC. TITER [id number] 00:00:00 Test Item Value Reference Range Interpretation Comments RPR RESULT (test code = NON-REACTIVE 3501) RPR TITER (test code = 3500) NOT INDIC. TITER [id number] 00:00:00 Test Item Value Reference Range Interpretation Comments RPR RESULT (test code = NON-REACTIVE 3501) RPR TITER (test code = 3500) NOT INDIC. TITER HIV AB/AG COMBO RFLX [id number] 00:00:00 Test Item Value Reference Range Interpretation Comments HIV 1/2 4TH GEN, RFLX CONF (test NON-REACTIVE code = 3514) PAP TEST, THINPREP, [id number] 00:00:00 Test Item Value Reference Range Interpretation Comments SOURCE: (test code = Cervical/Endocervical 8001) SLIDES: (test code = 1 8011) LMP: (test code = 8021) 05/11/2020 SPECIMEN ADEQUACY: (test (NOTE) code = 63736) INTERPRETATION: (test NILM/NO EPITH. 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 VAGINALIS (test code = 77385) NEGATIVE T. VAGINALIS (test code = 25932) NEGATIVE HIV AB/AG COMBO RFLX [id number] 00:00:00 Test Item Value Reference Range Interpretation Comments HIV 1/2 4TH GEN, RFLX CONF (test NON-REACTIVE code = 3514) VAGINAL PATHOGENS DNA [id number] 00:00:00 Test Item Value Reference Range Interpretation Comments CONRAD SPECIES (test code = ) NEGATIVE G. VAGINALIS (test code = 04544) NEGATIVE T. VAGINALIS (test code = 88024) NEGATIVE PAP TEST, THINPREP, [id number] 00:00:00 Test Item Value Reference Range Interpretation Comments SOURCE: (test code = Cervical/Endocervical 8001) SLIDES: (test code = 1 8011) LMP: (test code = 8021) 05/11/2020 SPECIMEN ADEQUACY: (test (NOTE) code = 41536) INTERPRETATION: (test NILM/NO EPITH. code = 86940) ABNORMALITY;SEE BELOW ADULT REMEDIAL EDUCATION INSTRUCTOR: (test Giovany BarnettCT(ASCP) code = 8101) LOCATION: (test code = (NOTE) 47273) CPT: (test code = 8140) (NOTE) ACUTE HEPATITIS [id number] 00:00:00 Test Item Value Reference Range Interpretation Comments HEPATITIS A IgM (test code = NON-REACTIVE 90837) HEPATITIS B CORE IgM (test code NON-REACTIVE = 1744) HEPATITIS B SURF AG (test code = NON-REACTIVE 0329) HEPATITIS C ANTIBODY (test code NON-REACTIVE = 4675) INTERPRETATION HEPATITIS A: (NOTE) (test code = 2552) INTERPRETATION HEPATITIS B: (NOTE) (test code = 31305) INTERPRETATION HEPATITIS C: (NOTE) (test code = 76197) HPV HIGH RISK WITH GENOTYPE, [id number] 00:00:00 Test Item Value Reference Range Interpretation Comments HPV HIGH RISK INTERP (test code = NEGATIVE 42472) HPV 16 (test code = 76140) NEGATIVE HPV 18 (test code = 86704) NEGATIVE HPV, HR, OTHER GENOTYPES (test code NEGATIVE = 04036) HPV HIGH RISK WITH GENOTYPE, [id number] 00:00:00 Test Item Value Reference Range Interpretation Comments HPV HIGH RISK INTERP (test code = NEGATIVE 01836) HPV 16 (test code = 23724) NEGATIVE HPV 18 (test code = 41595) NEGATIVE HPV, HR, OTHER GENOTYPES (test code NEGATIVE = 86114) ACUTE HEPATITIS [id number] 00:00:00 Test Item Value Reference Range Interpretation Comments HEPATITIS A IgM (test code = NON-REACTIVE 27262) HEPATITIS B CORE IgM (test code NON-REACTIVE = 4644) HEPATITIS B SURF AG (test code = NON-REACTIVE 2739) HEPATITIS C ANTIBODY (test code NON-REACTIVE = 4675) INTERPRETATION HEPATITIS A: (NOTE) (test code = 2552) INTERPRETATION HEPATITIS B: (NOTE) (test code = 88077) INTERPRETATION HEPATITIS C: (NOTE) (test code = 45368) CHLAMYDIA, AMPLIFIED, [id number] 00:00:00 Test Item Value Reference Range Interpretation Comments CHLAMYDIA, TMA (test code = 99607) NEGATIVE CHLAMYDIA, AMPLIFIED, [id number] 00:00:00 Test Item Value Reference Range Interpretation Comments CHLAMYDIA, TMA (test code = 60164) NEGATIVE GC, AMPLIFIED, [id number] 00:00:00 Test Item Value Reference Range Interpretation Comments GONORRHEA, TMA (test code = 82015) NEGATIVE [id number] 00:00:00 Test Item Value Reference Range Interpretation Comments PROLACTIN (test code = 2800) 11.0 NG/ML [id number] 00:00:00 Test Item Value Reference Range Interpretation Comments PROLACTIN (test code = 2800) 11.0 NG/ML [id number] 00:00:00 Test Item Value Reference Range Interpretation Comments TSH, THIRD GENERATION (test code 0.793 UIU/ML = 2821) [id number] 00:00:00 Test Item Value Reference Range Interpretation Comments TSH, THIRD GENERATION (test code 0.793 UIU/ML = 2821) [id number] 00:00:00 Test Item Value Reference Range Interpretation Comments TSH, THIRD GENERATION (test code 0.793 UIU/ML = 2821) Notes Date/Time Note Provider Source 2023-06-16 Formatting of this note might be differe nt from the original. Sirena Crowe LVN [facility] 08:03:57-00:00 Patient presented to clinic with c/o face burning. Face was red, irritated, lips, eyes and soft tissues were swollen. Patient reported she cleaned her face wit arm & hammer body wipes and charcoal. I advised the patient to see k care in the ED as she may need IV steroids and there medications for an allergic reaction. Patient verbalized understanding. Sirena Crowe LVN 06/16/2023 8:08 AM 2023-06-09 Formatting of this note is different from the or iginal. [facility] 10:48:12-00:00 Recent Visits Date Type Provider Dept 02/03/23 Office Visit Laura Beltran MD [facility] 12/06/22 Office Visit Trena Russell PA [facility] 11/20/22 Office Visit Vaughn Tan FNP [facility] 09/25/22 Office Visit Laura Beltran MD [facility] 07/09/22 Office Visit Laura Beltran MD [facility] 06/04/22 Office Visit Laura Beltran MD [facility] Showing recent visits within past 540 days with a meds authorizing provider and meeting all other requirements Future Appointments No visits were found meeting these conditions. Showing future appointments within next 150 days with a meds authorizing provider and meeting all other requirements Last refill was dextroamphetamine-amphetamine (ADDERALL) 30 mg t ablet 60 tablet 0 05/05/2023 2023-06-09 [facility] 09:19:15-00:00 Patient is requesting a refill. [facility] #[id number] [address] [facility] Electronically signed by Alis Landon at 0 06/09/2023 9:19 AM CDT"
[2023-06-16] MEDS ORDERED: METHYLPREDNISOLONE 125 MG INJ ONE (09:01)
[2023-06-16] MEDS ORDERED: FAMOTIDINE 20 MG/2 ML VIAL IV ONE (09:01)
[2023-06-16] MEDS ORDERED: DIPHENHYDRAMINE 50 MG/ML VIAL ONE (09:01)
[2023-06-16] MEDS ORDERED: NA CHLORIDE 0.9% 1,000 ML ONE (09:01)
[2023-06-16] MEDS ORDERED: KETOROLAC 30 MG/ML INJ ONE (09:58)
[2023-06-16] MEDS ORDERED: LIDOCAINE HCL JELLY 2% 6 ML SYRINGE TOP ONE (09:59)
--- NOTE | 2023-06-16 10:05 | ER ---
Nurse's Notes [facility] Name: Anne Marie Cruz Age: 42 yrs Sex: Female : 1980 Arrival Date: 06/16/2023 Time: 08:30 Bed 16 Private MD: Diagnosis: Allergic contact dermatitis due to cosmetics Presentation: 06/16 08:42 Chief complaint: Patient states: she used some face wipes last night and then she left iw a charcoal face mask on overnight , redness and irritation to her face this morning. Coronavirus screen: At this time, the client does not indicate any symptoms associated with coronavirus-19. Ebola Screen: Patient negative for fever greater than or equal to 101.5 degrees Fahrenheit, and additional compatible Ebola Virus Disease symptoms Patient denies exposure to infectious person. Patient denies travel to an Ebola-affected area in the 21 days before illness onset. No symptoms or risks identified at this time. Anaphylaxis evaluation, no signs or symptoms of anaphylaxis were noted. Initial Sepsis Screen: Does the patient meet any 2 criteria? No. Patient's initial sepsis screen is negative. Does the patient have a suspected source of infection? No. Patient's initial sepsis screen is negative. Risk Assessment: Do you want to hurt yourself or someone else? Patient reports no desire to harm self or others. Onset of symptoms was June 16, 2023. 08:42 Method Of Arrival: Ambulatory iw 08:42 Acuity: PARISH 3 iw Historical: - Allergies: 08:43 Latex, Natural Rubber; iw - Home Meds: 08:43 Hydrocodone-Acetaminophen Oral [Active]; Adderall XR Oral [Active]; iw - PMHx: 08:43 Anxiety; Bipolar disorder; Chronic pain; iw - PSHx: 08:43 hernia repair; iw Screenin:45 [facility] ED Fall Risk Assessment (Adult) History of falling in the last 3 months, aa5 including since admission No falls in past 3 months (0 pts) Confusion or Disorientation No (0 pts) Intoxicated or Sedated No (0 pts) Impaired Gait No (0 pts) Mobility Assist Device Used No (0 pt) Altered Elimination No (0 pt) Score/Fall Risk Level 0 - 2 = Low Risk Oriented to surroundings, Maintained a safe environment, Educated pt \T\ family on fall prevention, incl call for assistance when getting out of bed. Abuse screen: Denies threats or abuse. Nutritional screening: No deficits noted. Tuberculosis screening: No symptoms or risk factors identified. Assessment: 08:45 General: Appears uncomfortable, Behavior is calm, cooperative. Pain: Complains of pain aa5 in face Quality of pain is described as burning, Pain began this morning Is continuous. Neuro: Level of Consciousness is awake, alert, obeys commands, Oriented to person, place, time, situation. Cardiovascular: Patient's skin is warm and dry. Respiratory: Airway is patent Respiratory effort is even, unlabored, Respiratory pattern is regular, symmetrical, Breath sounds are clear bilaterally. GI: Abdomen is non-distended, Bowel sounds present X 4 quads. Abd is soft X 4 quads. : No signs and/or symptoms were reported regarding the genitourinary system. EENT: No signs and/or symptoms were reported regarding the EENT system. Derm: Skin is pink, warm \T\ dry. chemical burn that is 1 st degree noted to face and neck. Musculoskeletal: Range of motion: intact in all extremities. 09:34 Reassessment: Patient is alert, oriented x 3, equal unlabored respirations, skin aa5 warm/dry/pink. Patient states symptoms have not improved. States not feeling better, c/o burning to face. . 10:30 Reassessment: Patient is alert, oriented x 3, equal unlabored respirations, skin aa5 warm/dry/pink. Patient states feeling better. Patient states symptoms have improved. 10:35 Reassessment: Patient is alert, oriented x 3, equal unlabored respirations, skin aa5 warm/dry/pink. Vital Signs: 08:42 BP 158 / 93; Pulse 55; Resp 16; Temp 97.9; Pulse Ox 100% on R/A; Weight 68.04 kg; iw Height 5 ft. 4 in. ; Pain 10/10; 09:52 BP 148 / 104; Pulse 51; Resp 16 S; Pulse Ox 100% on R/A; aa5 10:30 BP 114 / 74; Pulse 53; Resp 16 S; Temp 98(TE); Pulse Ox 100% on R/A; aa5 08:42 Body Mass Index 25.75 (68.04 kg, 162.56 cm) iw 08:42 Pain Scale: Adult iw ED Course: 08:32 Patient arrived in ED. mg5 08:32 Greg Olguin PA is PHCP. cp 08:32 Bucky Nichols MD is Attending Physician. cp 08:43 Triage completed. iw 08:45 Arm band placed on. iw 08:45 Patient has correct armband on for positive identification. Bed in low position. Call aa5 light in reach. Side rails up X 1. Adult w/ patient. Pulse ox on. NIBP on. 08:50 Inserted saline lock: 20 gauge in right antecubital area, using aseptic technique. rs5 Blood collected. 08:58 Rachelle Whitfield, RN is Primary Nurse. aa5 10:35 No provider procedures requiring assistance completed. IV discontinued, intact, aa5 bleeding controlled, No redness/swelling at site. Pressure dressing applied. Administered Medications: 08:50 Drug: NS 0.9% IV 1000 ml Route: IV; Rate: 1 bolus; Site: right antecubital; aa5 10:30 Follow up: IV Status: Completed infusion; IV Intake: 1000ml aa5 08:50 Drug: MethylPrednisoLONE IVP 125 mg Route: IVP; Site: right antecubital; aa5 09:00 Follow up: Response: No adverse reaction aa5 08:51 Drug: diphenhydrAMINE IVP 50 mg Route: IVP; Site: right antecubital; aa5 09:00 Follow up: Response: No adverse reaction aa5 08:52 Drug: Famotidine IVP 20 mg Route: IVP; Site: right antecubital; aa5 09:00 Follow up: Response: No adverse reaction aa5 09:51 Drug: Ketorolac IVP 15 mg Route: IVP; Site: right antecubital; aa5 09:57 Follow up: Response: No adverse reaction aa5 09:52 Drug: Lidocaine Mucous Membrane Gel 2 % 1 ea Volume: 15 ml; Route: Mucous Membrane; aa5 10:30 Follow up: Response: Pain is decreased aa5 Medication: 10:35 VIS not applicable for this client. aa5 Intake: 10:30 IV: 1000ml; Total: 1000ml. aa5 Outcome: 10:04 Discharge ordered by . cp 10:35 Discharged to home ambulatory, with significant other. aa5 10:35 Condition: improved 10:35 Discharge instructions given to patient, Instructed on discharge instructions, follow up and referral plans. medication usage, Demonstrated understanding of instructions, follow-up care, medications, Prescriptions given X 3. 10:36 Patient left the ED. aa5 Signatures: Bernadette Vieyra RN RN Rachelle Hunt RN RN aa5 Greg Olguin PA PA cp Sotelo, Ricky, RN RN rs5 Jaqueline Poole mg5 Corrections: (The following items were deleted from the chart) 08:59 08:59 NS 0.9% IV 1000 ml IV at 1 bolus in right antecubital aa5 aa5 09:00 09:00 Inserted saline lock: 20 gauge in right antecubital area, using aseptic rs5 technique. Blood collected. rs5 09: 08:40 Abuse screen: Denies threats or abuse. aa5 aa5 09:02 08:40 Nutritional screening: No deficits noted. aa5 aa5 09:02 08:40 Tuberculosis screening: No symptoms or risk factors identified. aa5 aa5 09:02 08:40 [facility] ED Fall Risk Assessment (Adult) History of falling in the last 3 months, aa5 including since admission No falls in past 3 months (0 pts) Confusion or Disorientation No (0 pts) Intoxicated or Sedated No (0 pts) Impaired Gait No (0 pts) Mobility Assist Device Used No (0 pt) Altered Elimination No (0 pt) Score/Fall Risk Level 0 - 2 = Low Risk Oriented to surroundings, Maintained a safe environment, Educated pt \T\ family on fall prevention, incl call for assistance when getting out of bed, aa5
--- NOTE | 2023-06-16 10:05 | EDPHYS ---
Physician Documentation [facility] Name: Anne Marie Cruz Age: 42 yrs Sex: Female : 1980 Arrival Date: 06/16/2023 Time: 08:30 Bed 16 Private MD: ED Physician Bucky Nichols HPI: 06/16 08:50 This 42 yrs old Female presents to ER via Ambulatory with complaints of Allergic cp Reaction - Facial burning. 08:50 The patient presents with localized swelling, redness of skin. Onset: The cp symptoms/episode began/occurred last night. Possible causes: used new facial cleanser from [employer]. At home the patient or guardian has treated the symptoms with took pain medication Hydrocodone. Severity of symptoms: in the emergency department the symptoms are worse moderately. Historical: - Allergies: 08:43 Latex, Natural Rubber; iw - Home Meds: 08:43 Hydrocodone-Acetaminophen Oral [Active]; Adderall XR Oral [Active]; iw - PMHx: 08:43 Anxiety; Bipolar disorder; Chronic pain; iw - PSHx: 08:43 hernia repair; iw ROS: 08:55 Constitutional: Negative for body aches, chills, fever, poor PO intake. cp 08:55 Cardiovascular: Negative for chest pain, edema, palpitations. cp 08:55 Respiratory: Negative for cough, shortness of breath, wheezing. 08:55 Abdomen/GI: Negative for vomiting, diarrhea, constipation. 08:55 Skin: Positive for erythema, rash, of the face, burning. 08:55 All other systems are negative. Exam: 09:00 Constitutional: The patient appears in no acute distress, alert, awake, non-toxic, well cp developed, well nourished. 09:00 Head/face: Noted is erythema, that is moderate, of the forehead, right cheek, left cheek, chin, right jaw and left jaw, swelling, that is mild. 09:00 Eyes: Periorbital structures: appear normal, Pupils: equal, round, and reactive to light and accomodation, Extraocular movements: intact throughout, Conjunctiva: normal, no exudate, no injection, Sclera: no appreciated abnormality, Lids and lashes: appear normal, bilaterally. 09:00 ENT: External ear(s): are unremarkable, Nose: is normal, Mouth: Lips: moist, Oral mucosa: pink and intact, moist, Posterior pharynx: is normal, airway is patent, no erythema, no exudate. 09:00 Chest/axilla: Inspection: normal. 09:00 Cardiovascular: Rate: bradycardic, Rhythm: regular, Edema: is not appreciated, JVD: is not appreciated. 09:00 Respiratory: the patient does not display signs of respiratory distress, Respirations: normal, no use of accessory muscles, no retractions, labored breathing, is not present, Breath sounds: are clear throughout, no decreased breath sounds, no stridor, no wheezing. 09:00 Abdomen/GI: Exam negative for discomfort, distension, guarding, Inspection: abdomen appears normal. 09:00 Skin: rash can be described as erythematous, on the face. Vital Signs: 08:42 BP 158 / 93; Pulse 55; Resp 16; Temp 97.9; Pulse Ox 100% on R/A; Weight 68.04 kg; iw Height 5 ft. 4 in. ; Pain 10/10; 09:52 BP 148 / 104; Pulse 51; Resp 16 S; Pulse Ox 100% on R/A; aa5 10:30 BP 114 / 74; Pulse 53; Resp 16 S; Temp 98(TE); Pulse Ox 100% on R/A; aa5 08:42 Body Mass Index 25.75 (68.04 kg, 162.56 cm) iw 08:42 Pain Scale: Adult iw MDM: 08:40 Patient medically screened. cp 10:03 Data reviewed: vital signs, nurses notes. cp 10:03 Differential diagnosis: anaphylaxis, angioedema, contact dermatitis. Counseling: I had cp a detailed discussion with the patient and/or guardian regarding the historical points, exam findings, and any diagnostic results supporting the discharge/admit diagnosis, to return to the emergency department if symptoms worsen or persist or if there are any questions or concerns that arise at home. Response to treatment: the patient's symptoms have markedly improved after treatment, pain improved. will discharge to home for continued monitoring. 06/16 08:43 Order name: IV; Complete Time: 08:58 cp Administered Medications: 08:50 Drug: NS 0.9% IV 1000 ml Route: IV; Rate: 1 bolus; Site: right antecubital; aa5 10:30 Follow up: IV Status: Completed infusion; IV Intake: 1000ml aa5 08:50 Drug: MethylPrednisoLONE IVP 125 mg Route: IVP; Site: right antecubital; aa5 09:00 Follow up: Response: No adverse reaction aa5 08:51 Drug: diphenhydrAMINE IVP 50 mg Route: IVP; Site: right antecubital; aa5 09:00 Follow up: Response: No adverse reaction aa5 08:52 Drug: Famotidine IVP 20 mg Route: IVP; Site: right antecubital; aa5 09:00 Follow up: Response: No adverse reaction aa5 09:51 Drug: Ketorolac IVP 15 mg Route: IVP; Site: right antecubital; aa5 09:57 Follow up: Response: No adverse reaction aa5 09:52 Drug: Lidocaine Mucous Membrane Gel 2 % 1 ea Volume: 15 ml; Route: Mucous Membrane; aa5 10:30 Follow up: Response: Pain is decreased aa5 Disposition: 18:24 Co-signature as Attending Physician, Bucky Nichols MD I reviewed the patient's care rn provided by the Advanced Practice Provider and agree with the diagnosis and treatment plan. Disposition Summary: 06/16/23 10:04 Discharge Ordered Location: Home cp Problem: new cp Symptoms: have improved cp Condition: Stable cp Diagnosis - Allergic contact dermatitis due to cosmetics cp Followup: cp - With: Private Physician - When: 1 - 2 days - Reason: Worsening of condition Discharge Instructions: - Discharge Summary Sheet cp - Contact Dermatitis cp Forms: - Medication Reconciliation Form cp - Thank You Letter cp - Antibiotic Education cp - Prescription Opioid Use cp - Patient Portal Instructions cp - Leadership Thank You Letter cp Prescriptions: - lidocaine 4 % Topical gel - apply 1 application by TOPICAL route 4 times per day as needed for pain; 45 cp gram; Refills: 0, Product Selection Permitted - Pepcid 20 mg Oral Tablet - take 1 tablet by ORAL route every 12 hours for 10 days; 20 tablet; Refills: 0, cp Product Selection Permitted - Prednisone 20 mg Oral Tablet - take 2 tablets by ORAL route once daily for 5 days then take 1 tablet daily for cp 3 days and then 1/2 tablet daily for 2 days; 14 tablet; Refills: 0, Product Selection Permitted Signatures: Bernadette Vieyra RN RN iw Nieto, Roman, MD MD rn Calderon, Audri, RN RN aa5 Page, Greg, PA PA cp Corrections: (The following items were deleted from the chart) 06/17 10:06/16 08:40 Constitutional: The patient appears in no acute distress, alert, awake, cp non-toxic, well developed, well nourished, cp 06/17 10:06/16 08:40 Head/face: Noted is erythema, that is moderate, of the forehead, right cp cheek, left cheek, chin, right jaw and left jaw, swelling, that is mild, cp 06/17 10:06/16 08:40 Eyes: Periorbital structures: appear normal, Pupils: equal, round, and cp reactive to light and accomodation, Extraocular movements: intact throughout, Conjunctiva: normal, no exudate, no injection, Sclera: no appreciated abnormality, Lids and lashes: appear normal, bilaterally, cp 06/17 10:06/16 08:40 ENT: External ear(s): are unremarkable, Nose: is normal, Mouth: Lips: cp moist, Oral mucosa: pink and intact, moist, Posterior pharynx: is normal, airway is patent, no erythema, no exudate, cp 06/17 10:06/16 08:40 Chest/axilla: Inspection: normal, cp cp 06/17 10:06/16 08:40 Cardiovascular: Rate: bradycardic, Rhythm: regular, Edema: is not cp appreciated, JVD: is not appreciated, cp 06/17 10:06/16 08:40 Respiratory: the patient does not display signs of respiratory distress, cp Respirations: normal, no use of accessory muscles, no retractions, labored breathing, is not present, Breath sounds: are clear throughout, no decreased breath sounds, no stridor, no wheezing, cp 06/17 10:06/16 08:40 Abdomen/GI: Exam negative for discomfort, distension, guarding, Inspection: cp abdomen appears normal, cp 06/17 10:06/16 08:40 Skin: rash can be described as erythematous, on the face, cp cp
[2023-06-16 11:25] VITALS: TEMP 97.9; O2SAT 100
[2023-06-16 11:32] VITALS: BP 148/104
== END 2023-06-16 10:36 | disposition home or self-care (01) ==
LOC: ER 08:30
DX: L23.2 Allergic contact dermatitis due to cosmetics (principal); F31.9 Bipolar disorder, unspecified; Z91.040 Latex allergy status; Z91.048 Other nonmedicinal substance allergy status
CPT/HCPCS: 96361; 96375; 96374; 99284; J1200; J2930; J7030

== ENCOUNTER 2023-09-02 11:28 | Emergency (ER) | payer OTHER ==
--- OUTSIDE RECORDS SUMMARY | 2023-09-02 11:36 | XMS REPORT | Continuity of Care Document ---
:1980 Author Organization [facility] t Address [address] [place] [address] Care Team Providers Name Role Phone Otto Torres Primary Care Physician [phone] LAURA BELTRAN Attending Clinician Unavailable Laura Beltran MD Attending Clinician Doctor Unassigned, [place] Attending Clinician Unavailable MAIKEL SIGALA Attending Clinician Unavailable Vivienne Campuzano Attending Clinician Unknown, Attending Attending Clinician Unavailable VIVIENNE HOLT Attending Clinician Unavailable MC STRONG Attending Clinician Unavailable Mc Strong MD Attending Clinician Feroz Barakat MD Attending Clinician FEROZ BARAKAT Attending Clinician Unavailable YESSENIA CALL Attending Clinician Unavailable , [facility] Attending Clinician Unavailable Yessenia Cruz Attending Clinician UNKNOWN, ATTENDING Attending Clinician Unavailable Provider, [facility] Attending Clinician Unavailable FLOR INFANTE Attending Clinician Unavailable Flor Infante MD Attending Clinician Trena Fairbanks Attending Clinician STU BORGES Attending Clinician Unavailable TRENA RUSSELL Attending Clinician Unavailable VAUGHN CHOUDHURY Attending Clinician Unavailable Britney BETTING AGENCY MANAGER, Vaughn Attending Clinician ARNEL ALARCON Attending Clinician Unavailable MILA ROLDAN Attending Clinician Unavailable Jamar BETTING AGENCY MANAGER, Mila Attending Clinician MUNDO SOMERS Attending Clinician Unavailable Yovany BETTING AGENCY MANAGER, Mundo Attending Clinician Lora Gould RN Attending Clinician Unavailable Marc Khoury MD Attending Clinician Marilyn BETTING AGENCY MANAGER, Nayla Larios Attending Clinician JORDAN HALEY Attending Clinician Unavailable Catalina TAYLOR, Jhoana Wang Attending Clinician JHOANA SAINZ Attending Clinician Unavailable Pob[facility] Attending Clinician Unavailable Cristal Cochran MD Attending Clinician [phone] CRISTAL COCHRAN Attending Clinician Unavailable KELSI CORBETT Attending Clinician Unavailable Kelsi Corbett DO Attending Clinician JHOANA SAINZ Admitting Clinician Unavailable Payers Payer Name Policy Type Policy Number Effective Date Expiration Date [facility] [id number] 2017 [facility] MEDICA[facility] 00:00:[address] [facility] [id number] [facility] 00:00:00 MEDICAID [facility] [id number] 2017 00:00:00 Problems Condition Condition Condition Status Onset Resolution Last Treating Co mments Source Name Details Category Date Date Treatment Clinician Date Cellulitis Cellulitis Disease Active U nivers of left of left 2 ity of lower lower 00:00: [place] extremity extremity 00 [facility] Branch Abscess Abscess Disease Active Univers 2 ity of 00:00: [address] Skin sore Skin sore Disease Active Uni vers 2 ity of 00:00: [address] Follow-up Follow-up Disease Active Uni vers exam exam 2 ity of 00:00: [address] Bipolar 1 Bipolar 1 Disease Active Uni vers disorder, disorder, 9- ity of manic, manic, 00:00: [place] mild mild 00 [facility] Attention Attention Disease Active Uni vers deficit deficit 8-09 ity of disorder disorder 00:00: [place] (ADD) in (ADD) in 00 Medica l adult adult Branch Allergies, Adverse Reactions, Alerts Allergy Allergy Status Severity Reaction(s) Onset Inactive Treating Comm ents Source Name Type Date Date Clinician NO KNOWN Drug Active Univers ALLERGIE Class ity of S [facility] Social History Social Habit Start Date Stop Date Quantity Comments Source Gender identity [facility]it y [facility] Social 2023-08-11 2023-08-11 Univers ity of function 00:00:00 00:00:00 [facility] Alcohol intake 2023-08-11 2023-08-11 Ex-drinker [facility] 00:00:00 00:00:00 (finding) [facility] Exposure to 2023-01-28 2023-02-07 Not sure [facility] SARS-CoV-2 (event) 00:00:00 09:18:00 [facility] Tobacco use and 2022-07-09 2022-07-09 Smokeless Universit y of exposure 00:00:00 00:00:00 tobacco non-user [facility] [place] [facility] History of tobacco 2010-03-28 Cigarette Smoker University of use 00:00:00 [facility] Sex Assigned At [birth year] Universit y of 00:00:00 00:00:00 [facility] Smoking Status Start Date Stop Date Source Ex-smoker 2022-07-09 00:00:00 2022-07-09 00:00:00 Universi ty [facility] Medications Ordered Filled Start Stop Current Ordering Indication Dosage Frequency Signature Comments Components Source Medication Medication Date Date Medication? Clinician (SIG) Name Name dextroamphe 2022-10 Yes [id number] 30mg Take 1 Univers tamine-amph 0-23 tablet by ity of etamine 00:00: mouth in [place] (ADDERALL) 00 the Medical 30 mg morning Branch tablet and 1 tablet in the evening. dextroamphe 2022-10 Yes [id number] 30mg Take 1 Univers tamine-amph 0-23 tablet by ity of etamine 00:00: mouth in [place] (ADDERALL) 00 the Medical 30 mg morning Branch tablet and 1 tablet in the evening. dextroamphe 2022-10 Yes [id number] 30mg Take 1 Univers tamine-amph 0-23 tablet by ity of etamine 00:00: mouth in [place] (ADDERALL) 00 the Medical 30 mg morning Branch tablet and 1 tablet in the evening. VENTOLIN 2022-10 Yes [id number] INHALE 2 U nivers HFA 90 0-09 PUFFS BY ity of mcg/actuati 00:00: MOUTH [place] on inhaler 00 EVERY 6 Medica l HOURS Branch NEEDED FOR WHEEZING VENTOLIN 2022-10 Yes [id number] INHALE 2 U nivers HFA 90 0-09 PUFFS BY ity of mcg/actuati 00:00: MOUTH [place] on inhaler 00 EVERY 6 Medica l HOURS Branch NEEDED FOR WHEEZING VENTOLIN 2022-10 Yes [id number] INHALE 2 U nivers HFA 90 0-09 PUFFS BY ity of mcg/actuati 00:00: MOUTH [place] on inhaler 00 EVERY 6 Medica l HOURS Branch NEEDED FOR WHEEZING VENTOLIN 2022-10- No [id number] INHALE 2 Univers HFA 90 0-09 10-23 PUFFS BY ity of mcg/actuati 00:00: 00:[place]TH [place] inhal[place] 00 :00 EVERY 6 Medica l HOURS Branch NEEDED FOR WHEEZING VENTOLIN 2022-10- No [id number] INHALE 2 Univers HFA 90 0-09 10-23 PUFFS BY ity of mcg/actuati 00:00: 00:00 [place]TH [place] 00 :00 EVERY 6 Medica l HOURS Branch NEEDED FOR WHEEZING VENTOLIN 2022-10- No [id number] INHALE 2 Univers HFA 90 0-09 10-23 PUFFS BY ity of mcg/actuati 00:00: 00:00 [place]TH [place] inhal[place] 00 :00 EVERY 6 Medica l HOURS Branch NEEDED FOR WHEEZING ketorolac 2022-0 2022- No [id number] 30mg Un ninoska (TORADOL) 28 09-28 ity of injection 02:30: 01:48 [place] 30 mg 00 :00 Medical Branch ketorolac 2022-0 2022- No [id number] 30mg 30 mg, Univers (TORADOL) 07-17 Intramuscu ity of injection 02:30: 01:48 [place], ONCE[place] 30 mg 00 :00 1 dose, On [facility] Wed Branch 07/16/23 at 2130, Routine traMADoL 50 2023-0 Yes 50mg Take 1 Univ ers mg tablet 9-28 tablet by ity o f 00:00: mouth in [place] [address] the Medical morning Branch and 1 tablet in the evening. traMADoL 50 2023-0 Yes 50mg Take 1 Univ ers mg tablet 9-28 tablet by ity o f 00:00: mouth in [place] [address] the Medical morning Branch and 1 tablet in the evening. traMADoL 50 2023-0 Yes 50mg Take 1 Univ ers mg tablet 9-28 tablet by ity o f 00:00: mouth in [place] [address] the morning Branch and 1 tablet in the evening. hydrOXYzine 2023-0 Yes [id number] 50mg Take 1 Univers 50 mg 9-27 tablet by ity of tablet 00:00: mouth in [place] [address] the Branch and 1 tablet at noon and 1 tablet in the evening. hydrOXYzine 3-0 Yes [id number] 50mg Take 1 Univers 50 mg 9-27 tablet by ity of tablet 00:00: mouth in [place] [address] the morning Branch and 1 tablet at noon and 1 tablet in the evening. hydrOXYzine 2023-0 Yes [id number] 50mg Take 1 Univers 50 mg 9-27 tablet by ity of tablet 00:00: mouth in [place] [address] the morning Branch and 1 tablet at noon and 1 tablet in the evening. hydrOXYzine 2023-0 Yes [id number] 50mg Take 1 Univers 50 mg 9-27 tablet by ity of tablet 00:00: mouth in [place] [address] the morning Branch and 1 tablet at noon and 1 tablet in the evening. hydrOXYzine 2023-0 2023- No [id number] 50mg Take 1 Univers 50 mg 9-27 10-23 tablet by ity of tablet 00:00: 00:00 mouth in [place] 00 :00 the morning Branch and 1 tablet at noon and 1 tablet in the evening. hydrOXYzine 2023-0 2023- No [id number] 50mg Take 1 Univers 50 mg 9-27 10-23 tablet by ity of tablet 00:00: 00:00 mouth in [place] 00 :00 the Medical morning Branch and 1 tablet at noon and 1 tablet in the evening. hydrOXYzine 2022-0 2022- No [id number] 50mg Take 1 Univers 50 mg 07-16 tablet by ity of tablet 00:00: 00:00 mouth in [place] 00 :00 the Medical morning Branch and 1 tablet at noon and 1 tablet in the evening. hydrOXYzine 2022-0 2022- No [id number] 50mg Take 1 Univers 50 mg 07-16 tablet by ity of tablet 00:00: 00:00 mouth in [place] 00 :00 the Medical morning Branch and 1 tablet at noon and 1 tablet in the evening. Do all this for 10 days. diphenhydrA 2022- No 25mg 25 mg, Uni vers MINE 07-15 Oral, ity of (BENADRYL) 09:45: 09:40 ONCE, 1 Jorge Alberto as tablet 25 00 :00 dose, On Medica l mg e [place] 07/15/23 at 0445, CAMILA dextroamphe 3-0 Yes [id number] 30mg Take 1 Univers tamine-amph 9-18 tablet by ity of etamine 00:00: mouth in [place] (ADDERALL) 00 the Medical 30 mg morning Branch tablet and 1 tablet in the evening. dextroamphe 3-0 Yes [id number] 30mg Take 1 Univers tamine-amph 9-18 tablet by ity of etamine 00:00: mouth in [place] (ADDERALL) 00 the Medical 30 mg morning Branch tablet and 1 tablet in the evening. dextroamphe 3-0 Yes [id number] 30mg Take 1 Univers tamine-amph 9-18 tablet by ity of etamine 00:00: mouth in [place] (ADDERALL) 00 the Medical 30 mg morning Branch tablet and 1 tablet in the evening. dextroamphe 2023-0 Yes [id number] 30mg Take 1 Univers tamine-amph 9-18 tablet by ity of etamine 00:00: mouth in [place] (ADDERALL) 00 the Medical 30 mg morning Branch tablet and 1 tablet in the evening. dextroamphe 2023-0 Yes [id number] 30mg Take 1 Univers tamine-amph 9-18 tablet by ity of etamine 00:00: mouth in [place] (ADDERALL) 00 the Medical 30 mg morning Branch tablet and 1 tablet in the evening. dextroamphe 2023-0 Yes [id number] 30mg Take 1 Univers tamine-amph 9-18 tablet by ity of etamine 00:00: mouth in [place] (ADDERALL) 00 the Medical 30 mg morning Branch tablet and 1 tablet in the evening. dextroamphe 2023-0 3- No [id number] 30mg Take 1 Univers tamine-amph 9-18 10-23 tablet by it y of etamine 00:00: 00:00 mouth in [place] (ADDERALL) 00 :00 the Medical 30 mg morning Branch tablet and 1 tablet in the evening. dextroamphe 2023-0 2023- No [id number] 30mg Take 1 Univers tamine-amph 9-18 10-23 tablet by it y of etamine 00:00: 00:00 mouth in [place] (ADDERALL) 00 :00 the Medical 30 mg morning Branch tablet and 1 tablet in the evening. dextroamphe 2023-0 3- No [id number] 30mg Take 1 Univers tamine-amph 9-18 10-23 tablet by it y of etamine 00:00: 00:00 mouth in [place] (ADDERALL) 00 :00 the Medical 30 mg morning Branch tablet and 1 tablet in the evening. VENTOLIN 2023-0 Yes [id number] INHALE 2 U nivers HFA 90 9-14 PUFFS BY ity of mcg/actuati 00:00: MOUTH [place] on inhaler 00 EVERY 6 Medica l HOURS Branch NEEDED FOR WHEEZING VENTOLIN 2023-0 Yes [id number] INHALE 2 U nivers HFA 90 9-14 PUFFS BY ity of mcg/actuati 00:00: MOUTH [place] on inhaler 00 EVERY 6 Medica l HOURS Branch NEEDED FOR WHEEZING VENTOLIN 2023-0 Yes [id number] INHALE 2 U nivers HFA 90 9-14 PUFFS BY ity of mcg/actuati 00:00: MOUTH [place] on inhaler 00 EVERY 6 Medica l HOURS Branch NEEDED FOR WHEEZING VENTOLIN 2023-0 Yes [id number] INHALE 2 U nivers HFA 90 9-14 PUFFS BY ity of mcg/actuati 00:00: MOUTH [place] on inhaler 00 EVERY 6 Medica l HOURS Branch NEEDED FOR WHEEZING VENTOLIN 2023-0 2023- No [id number] INHALE 2 Univers HFA 90 9-14 10-09 PUFFS BY ity of mcg/actuati 00:00: 00:00 [place] 00 :00 EVERY 6 Medica l HOURS Branch NEEDED FOR WHEEZING dextroamphe 2023-0 Yes [id number] 30mg Take 1 Univers tamine-amph 8-21 tablet by ity of etamine 00:00: mouth in [place] (ADDERALL) 00 the Medical 30 mg morning Branch tablet and 1 tablet in the evening. dextroamphe 3-0 Yes [id number] 30mg Take 1 Univers tamine-amph 8-21 tablet by ity of etamine 00:00: mouth in [place] (ADDERALL) 00 the Medical 30 mg morning Branch tablet and 1 tablet in the evening. dextroamphe 3-0 Yes [id number] 30mg Take 1 Univers tamine-amph 8-21 tablet by ity of etamine 00:00: mouth in [place] (ADDERALL) 00 the Medical 30 mg morning Branch tablet and 1 tablet in the evening. dextroamphe 3-0 2023- No [id number] 30mg Take 1 Univers tamine-amph 8-21 09-18 tablet by it y of etamine 00:00: 00:00 mouth in [place] (ADDERALL) 00 :00 the Medical 30 mg morning Branch tablet and 1 tablet in the evening. VENTOLIN 2023-0 Yes [id number] INHALE 2 U nivers HFA 90 8-18 PUFFS BY ity of mcg/actuati 00:00: MOUTH [place] on inhaler 00 EVERY 6 Medica l HOURS Branch NEEDED FOR WHEEZING VENTOLIN 2023-0 Yes [id number] INHALE 2 U nivers HFA 90 8-18 PUFFS BY ity of mcg/actuati 00:00: MOUTH [place] on inhaler 00 EVERY 6 Medica l HOURS Branch NEEDED FOR WHEEZING VENTOLIN 2023-0 Yes [id number] INHALE 2 U nivers HFA 90 8-18 PUFFS BY ity of mcg/actuati 00:00: MOUTH [place] on inhaler 00 EVERY 6 Medica l HOURS Branch NEEDED FOR WHEEZING VENTOLIN 2023-0 2023- No [id number] INHALE 2 Univers HFA 90 8-18 09-14 PUFFS BY ity of mcg/actuati 00:00: 00:00 [place]TH [place] inhal[place] 00 :00 EVERY 6 Medica l HOURS Branch NEEDED FOR WHEEZING VENTOLIN 2023-0 Yes [id number] INHALE 2 U nivers HFA 90 7-22 PUFFS BY ity of mcg/actuati 00:00: MOUTH [place] on inhaler 00 EVERY 6 Medica l HOURS Branch NEEDED FOR WHEEZING VENTOLIN 2023-0 Yes [id number] INHALE 2 U nivers HFA 90 7-22 PUFFS BY ity of mcg/actuati 00:00: MOUTH [place] on inhaler 00 EVERY 6 Medica l HOURS Branch NEEDED FOR WHEEZING VENTOLIN 2023-0 Yes [id number] INHALE 2 U nivers HFA 90 7-22 PUFFS BY ity of mcg/actuati 00:00: MOUTH [place] on inhaler 00 EVERY 6 Medica l HOURS Branch NEEDED FOR WHEEZING VENTOLIN 2023-0 2023- No [id number] INHALE 2 Univers HFA 90 7-22 08-18 PUFFS BY ity of mcg/actuati 00:00: 00:00 [place]TH [place] inhal[place] 00 :00 EVERY 6 Medica l HOURS Branch NEEDED FOR WHEEZING dextroamphe 2023-0 Yes [id number] 30mg Take 1 Univers tamine-amph 7-17 tablet by ity of etamine 00:00: mouth in [place] (ADDERALL) 00 the Medical 30 mg morning Branch tablet and 1 tablet in the evening. dextroamphe 2023-0 Yes [id number] 30mg Take 1 Univers tamine-amph 7-17 tablet by ity of etamine 00:00: mouth in [place] (ADDERALL) 00 the Medical 30 mg morning Branch tablet and 1 tablet in the evening. dextroamphe 2023-0 Yes [id number] 30mg Take 1 Univers tamine-amph 7-17 tablet by ity of etamine 00:00: mouth in [place] (ADDERALL) 00 the Medical 30 mg morning Branch tablet and 1 tablet in the evening. dextroamphe 2023-0 Yes [id number] 30mg Take 1 Univers tamine-amph 7-17 tablet by ity of etamine 00:00: mouth in [place] (ADDERALL) 00 the Medical 30 mg morning Branch tablet and 1 tablet in the evening. dextroamphe 2023-0 Yes [id number] 30mg Take 1 Univers tamine-amph 7-17 tablet by ity of etamine 00:00: mouth in [place] (ADDERALL) 00 the Medical 30 mg morning Branch tablet and 1 tablet in the evening. dextroamphe 2023-0 3- No [id number] 30mg Take 1 Univers tamine-amph 7-17 08-21 tablet by it y of etamine 00:00: 00:00 mouth in [place] (ADDERALL) 00 :00 the Medical 30 mg morning Branch tablet and 1 tablet in the evening. VENTOLIN 3-0 Yes [id number] INHALE 2 U nivers HFA 90 6-20 PUFFS BY ity of mcg/actuati 00:00: MOUTH [place] on inhaler 00 EVERY 6 Medica l HOURS Branch NEEDED FOR WHEEZING VENTOLIN 3-0 Yes [id number] INHALE 2 U nivers HFA 90 6-20 PUFFS BY ity of mcg/actuati 00:00: MOUTH [place] on inhaler 00 EVERY 6 Medica l HOURS Branch NEEDED FOR WHEEZING VENTOLIN 3-0 3- No [id number] INHALE 2 Univers HFA 90 6-20 07-22 PUFFS BY ity of mcg/actuati 00:00: 00:00 M[place]TH [place] inhal[place] 00 :00 EVERY 6 Medica l HOURS Branch NEEDED FOR WHEEZING dextroamphe 3-0 Yes [id number] 30mg Take 1 Univers tamine-amph 6-15 tablet by ity of etamine 00:00: mouth in [place] [facility] the Medical 30 mg morning Branch tablet and 1 tablet in the evening. dextroamphe 2023-0 Yes [id number] 30mg Take 1 Univers tamine-amph 6-15 tablet by ity of etamine 00:00: mouth in [place] (ADDERALL) 00 the Medical 30 mg morning Branch tablet and 1 tablet in the evening. dextroamphe 2023-0 3- No [id number] 30mg Take 1 Univers tamine-amph 6-15 07-17 tablet by it y of etamine 00:00: 00:00 mouth in [place] [facility] the Medical 30 mg morning Branch tablet and 1 tablet in the evening. dextroamphe 2023-0 Yes [id number] 30mg Take 1 Univers tamine-amph 5-22 tablet by ity of etamine 00:00: mouth in [place] (ADDERALL) 00 the Medical 30 mg morning Branch tablet and 1 tablet in the evening. dextroamphe 2022-0 Yes [id number] 30mg Take 1 Univers tamine-amph 5-22 tablet by ity of etamine 00:00: mouth in [place] (ADDERALL) 00 the Medical 30 mg morning Branch tablet and 1 tablet in the evening. dextroamphe 2022-0 2022- No [id number] 30mg Take 1 Univers tamine-amph 5-22 06-15 tablet by it y of etamine 00:00: 00:00 mouth in [place] (ADDERALL) 00 :00 the Medical 30 mg morning Branch tablet and 1 tablet in the evening. VENTOLIN 2022-0 Yes [id number] INHALE 2 U nivers HFA 90 5-20 PUFFS BY ity of mcg/actuati 00:00: MOUTH [place] on inhaler 00 EVERY 6 Medica l HOURS Branch NEEDED FOR WHEEZING VENTOLIN 2022-0 Yes [id number] INHALE 2 U nivers HFA 90 5-20 PUFFS BY ity of mcg/actuati 00:00: MOUTH [place] on inhaler 00 EVERY 6 Medica l HOURS Branch NEEDED FOR WHEEZING VENTOLIN 2022-0 Yes [id number] INHALE 2 U nivers HFA 90 5-20 PUFFS BY ity of mcg/actuati 00:00: MOUTH [place] on inhaler 00 EVERY 6 Medica l HOURS Branch NEEDED FOR WHEEZING VENTOLIN 2022-0 2022- No [id number] INHALE 2 Univers HFA 90 5-20 06-20 PUFFS BY ity of mcg/actuati 00:00: 00:00 [place]TH [place] inhal[place] 00 :00 EVERY 6 Medica l HOURS Branch NEEDED FOR WHEEZING ketorolac 2022-0 2022- No [id number] 30mg Un ninoska (TORADOL) 02-07 ity of injection 15:45: 14:58 [place] 30 mg 00 :00 Medical Branch ketorolac 2022-0 2022- No [id number] 30mg 30 mg, Univers (TORADOL) 02-07 Intramuscu ity of injection 15:45: 14:58 [place], ONCE, [place] 30 mg 00 :00 1 dose, On Medical Fri Branch 02/07/23 at 1045, Routine promethazin 2022-2022- No [id number] 5mL Take 5 mL Univers e-dextromet 02-07 by mouth 4 i ty of horphan 00:00: 04:59 (four) [place] 6.25-15 00 :00 times Medical mg/5 mL daily for Branch syrup 10 days. promethazin 0 2022- No [id number] 5mL Take 5 mL Univers e-dextromet 02-07 by mouth 4 i ty of horphan 00:00: 04:59 (four) [place] 6.25-15 00 :00 times Medical mg/5 mL daily for Branch syrup 10 days. oseltamivir 2022-2022- No [id number] 75mg Take 1 Univers (TAMIFLU) 02-07-27 capsule by ity of 75 mg 00:00: 04:59 mouth in [place] capsule 00 :00 the Medical morning Branch and 1 capsule in the evening. Do all this for 5 days. traZODone 2022- No 100mg Take 1 Univ ers 100 mg 4-17 04-17 tablet by ity of tablet 10:06: 00:00 mouth at [place] 00 :00 bedtime. Medical Branch traZODone 2022-0 2022- No 100mg Take 1 Univ ers 100 mg 4-17 04-17 tablet by ity of tablet 10:06: 00:00 mouth at [place] 00 :00 bedtime. Medical Branch dextroamphe 2022-0 Yes [id number] 30mg Take 1 Univers tamine-amph 4-17 tablet by ity of etamine 00:00: mouth in [place] (ADDERALL) 00 the Medical 30 mg morning Branch tablet and 1 tablet in the evening. dextroamphe 2022-0 Yes [id number] 30mg Take 1 Univers tamine-amph 4-17 tablet by ity of etamine 00:00: mouth in [place] (ADDERALL) 00 the Medical 30 mg morning Branch tablet and 1 tablet in the evening. dextroamphe 3-0 Yes [id number] 30mg Take 1 Univers tamine-amph 4-17 tablet by ity of etamine 00:00: mouth in [place] (ADDERALL) 00 the Medical 30 mg morning Branch tablet and 1 tablet in the evening. dextroamphe 2023-0 Yes [id number] 30mg Take 1 Univers tamine-amph 4-17 tablet by ity of etamine 00:00: mouth in [place] (ADDERALL) 00 the Medical 30 mg morning Branch tablet and 1 tablet in the evening. dextroamphe 2023-0 Yes [id number] 30mg Take 1 Univers tamine-amph 4-17 tablet by ity of etamine 00:00: mouth in [place] (ADDERALL) 00 the Medical 30 mg morning Branch tablet and 1 tablet in the evening. dextroamphe 3-0 Yes [id number] 30mg Take 1 Univers tamine-amph 4-17 tablet by ity of etamine 00:00: mouth in [place] (ADDERALL) 00 the Medical 30 mg morning Branch tablet and 1 tablet in the evening. dextroamphe 2023-0 Yes [id number] 30mg Take 1 Univers tamine-amph 4-17 tablet by ity of etamine 00:00: mouth in [place] ([facility] the Medical 30 mg morning Branch tablet and 1 tablet in the evening. dextroamphe 3-0 2023- No [id number] 30mg Take 1 Univers tamine-amph 4-17 05-22 tablet by it y of etamine 00:00: 00:00 mouth in [place] ([facility] :00 the Medical 30 mg morning Branch tablet and 1 tablet in the evening. dextroamphe 2023-0 Yes [id number] 30mg Take 1 Univers tamine-amph 3-20 tablet by ity of etamine 00:00: mouth in [place] (ADDERAL) 00 the Medical 30 mg morning Branch tablet and 1 tablet in the evening. dextroamphe 2023-0 Yes [id number] 30mg Take 1 Univers tamine-amph 3-20 tablet by ity of etamine 00:00: mouth in [place] (ADDERALL) 00 the Medical 30 mg morning Branch tablet and 1 tablet in the evening. dextroamphe 2023-0 2023- No [id number] 30mg Take 1 Univers tamine-amph 3-20 04-17 tablet by it y of etamine 00:00: 00:00 mouth in [place] ([facility] the Medical 30 mg morning Branch tablet and 1 tablet in the evening. dextroamphe 2022- No [id number] 30mg Take 1 Univers tamine-amph 3-20 -17 tablet by it y of etamine 00:00: 00:00 mouth in [place] (ADDERALL) 00 :00 the Medical 30 mg morning Branch tablet and 1 tablet in the evening. promethazin 2022- No [id number] 5mL Take 5 mL Univers e-dextromet 18 - by mouth 4 i ty of horphan 00:00: 04:59 (four) [place] 6.25-15 00 :00 times Medical mg/5 mL daily for Branch syrup 10 days. promethazin 2022- No [id number] 5mL Take 5 mL Univers e-dextromet 18 01-15 by mouth 4 i ty of horphan 00:00: 04:59 (four) [place] 6.25-15 00 :00 times Medical mg/5 mL daily for Branch syrup 10 days. traZODone Yes 100mg Take 1 Unive rs 100 mg 3-17 tablet by ity of tablet 17:01: mouth at [place] [address] bedtime. Medical Branch traZODone 0 Yes 100mg Take 1 Unive rs 100 mg 3-17 tablet by ity of tablet 17:01: mouth at [place] [address] bedtime. Medical Branch traZODone 0 Yes 100mg Take 1 Unive rs 100 mg 3-17 tablet by ity of tablet 17:01: mouth at [place] [address] bedtime. Medical Branch traZODone 0 Yes 100mg Take 1 Unive rs 100 mg 3-17 tablet by ity of tablet 17:01: mouth at [place] [address] bedtime. Medical Branch traZODone 0 Yes 100mg Take 1 Unive rs 100 mg 3-17 tablet by ity of tablet 17:01: mouth at [place] [address] bedtime. Medical Branch albuterol Yes [id number] 2{puff} Inhale 2 Univers 90 3-17 Puffs ity of mcg/actuati 00:00: every 6 Jorge Alberto as on inhaler 00 (six) Medical hours as Branch needed for Wheezing. triamcinolo Yes [id number] Apply to Univers ne 3-17 area(s) 2 ity of acetonide 00:00: (two) [place] 0.1 % cream 00 times Medical daily. Branch albuterol 2022-0 Yes [id number] 2{puff} Inhale 2 Univers 90 3-17 Puffs ity of mcg/actuati 00:00: every 6 Jorge Alberto as on inhaler 00 (six) Medical hours as Branch needed for Wheezing. triamcinolo 2022-0 Yes [id number] Apply to [place] [facility] area(s) 2 ity of acetonide 00:00: (two) [place] 0.1 % cream 00 times Medical daily. Branch albuterol 2022-0 Yes [id number] 2{puff} Inhale 2 Univers 90 3-17 Puffs ity of mcg/actuati 00:00: every 6 Jorge Alberto as on inhaler 00 (six) Medical hours as Branch needed for Wheezing. triamcinolo 2022-0 Yes [id number] Apply to [place] [address] area(s) 2 ity of acetonide 00:00: (two) [place] 0.1 % cream 00 times Medical daily. Branch albuterol 0 Yes [id number] 2{puff} Inhale 2 [facility] 90 3-17 Puffs ity of mcg/actuati 00:00: every 6 Jorge Alberto as on inhaler 00 (six) Medical hours as Branch needed for Wheezing. triamcinolo 2022-0 Yes [id number] Apply to [place] [address] area(s) 2 ity of acetonide 00:00: (two) [place] 0.1 % cream 00 times Medical daily. Branch albuterol 2022-0 Yes [id number] 2{puff} Inhale 2 [facility] 90 3-17 Puffs ity of mcg/actuati 00:00: every 6 [place] as on inhaler 00 (six) Medical hours as Branch needed for Wheezing. triamcinolo 2022-0 Yes [id number] Apply to [facility] area(s) 2 ity of acetonide 00:00: (two) [place] 0.1 % cream 00 times Medical daily. Branch albuterol 2022-0 Yes [id number] 2{puff} Inhale 2 [facility] 90 3-17 Puffs ity of mcg/actuati 00:00: every 6 [place] as on inhaler 00 (six) Medical hours as Branch needed for Wheezing. triamcinolo 2022-0 Yes [id number] Apply to [facility] 3-17 area(s) 2 ity of acetonide 00:00: (two) [place] 0.1 % cream 00 times Medical daily. Branch albuterol 2022-0 Yes [id number] 2{puff} Inhale 2 [facility] 90 3-17 Puffs ity of mcg/actuati 00:00: every 6 [place] as on inhaler 00 (six) Medical hours as Branch needed for Wheezing. triamcinolo 2022-0 Yes [id number] Apply to [facility] 3-17 area(s) 2 ity of acetonide 00:00: (two) [place] 0.1 % cream 00 times Medical daily. Branch albuterol 2022-0 Yes [id number] 2{puff} Inhale 2 [facility] 90 3-17 Puffs ity of mcg/actuati 00:00: every 6 [place] as on inhaler 00 (six) Medical hours as Branch needed for Wheezing. triamcinolo 2022-0 Yes [id number] Apply to [facility] 3-17 area(s) 2 ity of acetonide 00:00: (two) [place] 0.1 % cream 00 times Medical daily. Branch albuterol 2022-0 Yes [id number] 2{puff} Inhale 2 [facility] 90 3-17 Puffs ity of mcg/actuati 00:00: every 6 [place] as on inhaler 00 (six) Medical hours as Branch needed for Wheezing. triamcinolo 2022-0 Yes [id number] Apply to [facility] 3-17 area(s) 2 ity of acetonide 00:00: (two) [place] 0.1 % cream 00 times Medical daily. Branch albuterol 2022-0 Yes [id number] 2{puff} Inhale 2 [facility] 90 3-17 Puffs ity of mcg/actuati 00:00: every 6 [place] as on inhaler 00 (six) Medical hours as Branch needed for Wheezing. triamcinolo 2022-0 Yes [id number] Apply to [facility] 3-17 area(s) 2 ity of acetonide 00:00: (two) [place] 0.1 % cream 00 times Medical daily. Branch albuterol 2022-0 Yes [id number] 2{puff} Inhale 2 [facility] 90 3-17 Puffs ity of mcg/actuati 00:00: every 6 [place] as on inhaler 00 (six) Medical hours as Branch needed for Wheezing. triamcinolo 2022-0 Yes [id number] Apply to [facility] 3-17 area(s) 2 ity of acetonide 00:00: (two) [place] 0.1 % cream 00 times Medical daily. Branch albuterol 2022-0 Yes [id number] 2{puff} Inhale 2 [facility] 90 3-17 Puffs ity of mcg/actuati 00:00: every 6 [place] as on inhaler 00 (six) Medical hours as Branch needed for Wheezing. triamcinolo 2022-0 Yes [id number] Apply to [facility] ne 3-17 area(s) 2 ity of acetonide 00:00: (two) [place] 0.1 % cream 00 times Medical daily. Branch albuterol 2022-0 Yes [id number] 2{puff} Inhale 2 [facility] 90 3-17 Puffs ity of mcg/actuati 00:00: every 6 [place] as on inhaler 00 (six) Medical hours as Branch needed for Wheezing. triamcinolo 2022-0 Yes [id number] Apply to [facility] 3-17 area(s) 2 ity of acetonide 00:00: (two) [place] 0.1 % cream 00 times Medical daily. Branch albuterol 2022-0 Yes [id number] 2{puff} Inhale 2 [facility] 90 3-17 Puffs ity of mcg/actuati 00:00: every 6 [place] as on inhaler 00 (six) Medical hours as Branch needed for Wheezing. triamcinolo 2022-0 Yes [id number] Apply to [facility] ne 3-17 area(s) 2 ity of acetonide 00:00: (two) [place] 0.1 % cream 00 times Medical daily. Branch albuterol 2022-0 Yes [id number] 2{puff} Inhale 2 [facility] 90 3-17 Puffs ity of mcg/actuati 00:00: every 6 [place] Alber[place] as on inhaler 00 (six) Medical hours as Branch needed for Wheezing. triamcinolo 2022-0 Yes [id number] Apply to [facility] ne 3-17 area(s) 2 ity of acetonide 00:00: (two) [place] 0.1 % cream 00 times Medical daily. Branch triamcinolo 2022-0 Yes [id number] Apply to [facility] ne 3-17 area(s) 2 ity of acetonide 00:00: (two) [place] 0.1 % cream 00 times Medical daily. Branch triamcinolo 2023-0 Yes [id number] Apply to [facility] ne 3-17 area(s) 2 ity of acetonide 00:00: (two) [place] 0.1 % cream 00 times Medical daily. Branch triamcinolo 2023-0 Yes [id number] Apply to [facility] ne 3-17 area(s) 2 ity of acetonide 00:00: (two) [place] 0.1 % cream 00 times Medical daily. Branch triamcinolo 2023-0 Yes [id number] Apply to [facility] ne 3-17 area(s) 2 ity of acetonide 00:00: (two) [place] 0.1 % cream 00 times Medical daily. Branch triamcinolo 2023-0 Yes [id number] Apply to [facility] ne 3-17 area(s) 2 ity of acetonide 00:00: (two) [place] 0.1 % cream 00 times Medical daily. Branch triamcinolo 2023-0 Yes [id number] Apply to [facility] ne 3-17 area(s) 2 ity of acetonide 00:00: (two) [place] 0.1 % cream 00 times Medical daily. Branch triamcinolo 2023-0 Yes [id number] Apply to [facility] ne 3-17 area(s) 2 ity of acetonide 00:00: (two) [place] 0.1 % cream 00 times Medical daily. Branch triamcinolo 2023-0 Yes [id number] Apply to [facility] ne 3-17 area(s) 2 ity of acetonide 00:00: (two) [place] 0.1 % cream 00 times Medical daily. Branch triamcinolo 2023-0 Yes [id number] Apply to [facility] ne 3-17 area(s) 2 ity of acetonide 00:00: (two) [place] 0.1 % cream 00 times Medical daily. Branch triamcinolo 2023-0 Yes [id number] Apply to [facility] ne 3-17 area(s) 2 ity of acetonide 00:00: (two) [place] 0.1 % cream 00 times Medical daily. Branch triamcinolo 2023-0 Yes [id number] Apply to [facility] ne 3-17 area(s) 2 ity of acetonide 00:00: (two) [place] 0.1 % cream 00 times Medical daily. Branch triamcinolo 2022-0 Yes [id number] Apply to [facility] ne 3-17 area(s) 2 ity of acetonide 00:00: (two) [place] 0.1 % cream 00 times Medical daily. Branch benzonatate 2022-0 Yes [id number] 200mg Take 2 [facility] 100 mg 3-17 capsules ity of capsule 00:00: by mouth [place] 00 every 8 Medical (eight) Branch hours as needed for Cough. albuterol 2022-0 Yes [id number] 2{puff} Inhale 2 [facility] 90 3-17 Puffs ity of mcg/actuati 00:00: every 6 [place] as on inhaler 00 (six) Medical hours as Branch needed for Wheezing. triamcinolo 2022-0 Yes [id number] Apply to [facility] ne 3-17 area(s) 2 ity of acetonide 00:00: (two) [place] 0.1 % cream 00 times Medical daily. Branch benzonatate 2022-0 Yes [id number] 200mg Take 2 [facility] 100 mg 3-17 capsules ity of capsule 00:00: by mouth [place] 00 every 8 Medical (eight) Branch hours as needed for Cough. albuterol 2022-0 Yes [id number] 2{puff} Inhale 2 [facility] 90 3-17 Puffs ity of mcg/actuati 00:00: every 6 [place] as on inhaler 00 (six) Medical hours as Branch needed for Wheezing. triamcinolo 2022-0 Yes [id number] Apply to [facility] ne 3-17 area(s) 2 ity of acetonide 00:00: (two) [place] 0.1 % cream 00 times Medical daily. Branch benzonatate 2022-0 Yes [id number] 200mg Take 2 [facility] 100 mg 3-17 capsules ity of capsule 00:00: by mouth [place] 00 every 8 Medical (eight) Branch hours as needed for Cough. albuterol 2023-0 Yes [id number] 2{puff} Inhale 2 [facility] 90 3-17 Puffs ity of mcg/actuati 00:00: every 6 [place] Alberto as on inhaler 00 (six) Medical hours as Branch needed for Wheezing. triamcinolo 2023-0 Yes [id number] Apply to [facility] ne 3-17 area(s) 2 ity of acetonide 00:00: (two) [place] 0.1 % cream 00 times Medical daily. Branch benzonatate Yes [id number] 200mg Take 2 [facility] 100 mg 3-17 capsules ity of capsule 00:00: by mouth [place] 00 every 8 Medical (eight) Branch hours as needed for Cough. albuterol 2022-0 Yes [id number] 2{puff} Inhale 2 [facility] 90 3-17 Puffs ity of mcg/actuati 00:00: every 6 [place] Alberto as on inhaler 00 (six) Medical hours as Branch needed for Wheezing. triamcinolo 2022-0 Yes [id number] Apply to [facility] ne 3-17 area(s) 2 ity of acetonide 00:00: (two) [place] 0.1 % cream 00 times Medical daily. Branch triamcinolo 2022- No [id number] Apply to [facility] ne 3-17 10-23 area(s) 2 ity of acetonide 00:00: 00:00 (two) [place] 0.1 % cream 00 :00 times Medical daily. Branch triamcinolo 2022- No [id number] Apply to [facility] ne 3-17 10-23 area(s) 2 ity of acetonide 00:00: 00:00 (two) [place] 0.1 % cream 00 :00 times Medical daily. Branch triamcinolo 2022- No [id number] Apply to [facility] ne 3-17 10-23 area(s) 2 ity of acetonide 00:00: 00:00 (two) [place] 0.1 % cream 00 :00 times Medical daily. Branch albuterol 3- No [id number] 2{puff} Inhale 2 [facility] 90 3-17 08-18 Puffs ity of mcg/actuati 00:00: 00:00 every 6 [place] on inhaler 00 :00 (six) Medical hours as Branch needed for Wheezing. benzonatate 2022-0 3- No [id number] 200mg Take 2 [facility] 100 mg 3-17 04-17 capsules ity of capsule 00:00: 00:00 by mouth [place] 00 :00 every 8 Medical (eight) Branch hours as needed for Cough. benzonatate 2022-0 3- No [id number] 200mg Take 2 [facility] 100 mg 3-17 04-17 capsules ity of capsule 00:00: 00:00 by mouth [place] 00 :00 every 8 Medical (eight) Branch hours as needed for Cough. predniSONE 2022-0 2023- No [id number] 20mg Take 1 [facility] 20 mg 3-17 -23 tablet by ity of tablet 00:00: 04:59 mouth in [place] 00 :00 the Medical morning Branch for 5 days. predniSONE 2022-0 2023- No [id number] 20mg Take 1 [facility] 20 mg 3-17 -23 tablet by ity of tablet 00:00: 04:59 mouth in [place] 00 :00 the [facility] morning Branch for 5 days. predniSONE 2022-0 2023- No [id number] 20mg Take 1 [facility] 20 mg 3-17 -23 tablet by ity of tablet 00:00: 04:59 mouth in [place] 00 :00 the [facility] morning Branch for 5 days. predniSONE 2022-0 3- No [id number] 20mg Take 1 [facility] 20 mg 3-17 -23 tablet by ity of tablet 00:00: 04:59 mouth in [place] 00 :00 the [facility] morning Branch for 5 days. albuterol 0 Yes [id number] INHALE 2 [facility] (VENTOLIN 3-14 PUFFS BY ity of HFA) 90 00:00: MOUTH [place] mcg/actuati 00 EVERY 6 Medic al on inhaler HOURS Branc h NEEDED FOR WHEEZING albuterol 0 Yes [id number] INHALE 2 [facility] (VENTOLIN 3-14 PUFFS BY ity of HFA) 90 00:00: MOUTH [place] mcg/actuati 00 EVERY 6 Medic al on inhaler HOURS Branc h NEEDED FOR WHEEZING albuterol 2022-0 Yes [id number] INHALE 2 [facility] (VENTOLIN 3-14 PUFFS BY ity of HFA) 90 00:00: MOUTH [place] mcg/actuati 00 EVERY 6 Medic al on inhaler HOURS Branc h NEEDED FOR WHEEZING albuterol 2022-0 Yes [id number] INHALE 2 [facility] (VENTOLIN 3-14 PUFFS BY ity of HFA) 90 00:00: MOUTH [place] mcg/actuati 00 EVERY 6 Medic al on inhaler HOURS Branc h NEEDED FOR WHEEZING albuterol 2022-0 Yes [id number] INHALE 2 [facility] (VENTOLIN 3-14 PUFFS BY ity of HFA) 90 00:00: MOUTH [place] mcg/actuati 00 EVERY 6 Medic al on inhaler HOURS Branc h NEEDED FOR WHEEZING albuterol 2022-0 Yes [id number] INHALE 2 [facility] (VENTOLIN 3-14 PUFFS BY ity of HFA) 90 00:00: MOUTH [place] mcg/actuati 00 EVERY 6 Medic al on inhaler HOURS Branc h NEEDED FOR WHEEZING albuterol 2022-0 Yes [id number] INHALE 2 [facility] (VENTOLIN 3-14 PUFFS BY ity of HFA) 90 00:00: MOUTH [place] mcg/actuati 00 EVERY 6 Medic al on inhaler HOURS Branc h NEEDED FOR WHEEZING albuterol 2022-0 Yes [id number] INHALE 2 [facility] (VENTOLIN 3-14 PUFFS BY ity of HFA) 90 00:00: MOUTH [place] mcg/actuati 00 EVERY 6 Medic al on inhaler HOURS Branc h NEEDED FOR WHEEZING albuterol 2022-0 Yes [id number] INHALE 2 [facility] (VENTOLIN 3-14 PUFFS BY ity of HFA) 90 00:00: MOUTH [place] mcg/actuati 00 EVERY 6 Medic al on inhaler HOURS Branc h NEEDED FOR WHEEZING albuterol 2022-0 Yes [id number] INHALE 2 [facility] (VENTOLIN 3-14 PUFFS BY ity of HFA) 90 00:00: MOUTH [place] mcg/actuati 00 EVERY 6 Medic al on inhaler HOURS Branc h NEEDED FOR WHEEZING albuterol 3-0 Yes [id number] INHALE 2 [facility] (VENTOLIN 3-14 PUFFS BY ity of HFA) 90 00:00: MOUTH [place] mcg/actuati 00 EVERY 6 Medic al on inhaler HOURS Branc h NEEDED FOR WHEEZING albuterol 3-0 Yes [id number] INHALE 2 [facility] (VENTOLIN 3-14 PUFFS BY ity of HFA) 90 00:00: MOUTH [place] mcg/actuati 00 EVERY 6 Medic al on inhaler HOURS Branc h NEEDED FOR WHEEZING albuterol 3-0 Yes [id number] INHALE 2 [facility] (VENTOLIN 3-14 PUFFS BY ity of HFA) 90 00:00: MOUTH [place] mcg/actuati 00 EVERY 6 Medic al on inhaler HOURS Branc h NEEDED FOR WHEEZING albuterol 2022-0 Yes [id number] INHALE 2 [facility] (VENTOLIN 3-14 PUFFS BY ity of HFA) 90 00:00: MOUTH [place] mcg/actuati 00 EVERY 6 Medic al on inhaler HOURS Branc h NEEDED FOR WHEEZING albuterol 2022-0 2022- No [id number] INHALE 2 [facility] (VENTOLIN 3-14 05-20 PUFFS BY ity o f HFA) 90 00:00: 23:29 MOUTH [place] mcg/actuati 00 :11 EVERY 6 Medic al on inhaler HOURS Branc h NEEDED FOR WHEEZING dextroamphe 2022-0 Yes [id number] 30mg Take 1 [facility] tamine-amph 2-20 tablet by ity of etamine 00:00: mouth in [place] (ADDERALL) 00 the Medical 30 mg morning Branch tablet and 1 tablet in the evening. dextroamphe 2022-0 Yes [id number] 30mg Take 1 [facility] tamine-amph 2-20 tablet by ity of etamine 00:00: mouth in [place] (ADDERALL) 00 the Medical 30 mg morning Branch tablet and 1 tablet in the evening. dextroamphe 2022-0 Yes [id number] 30mg Take 1 [facility] tamine-amph 2-20 tablet by ity of etamine 00:00: mouth in [place] (ADDERALL) 00 the Medical 30 mg morning Branch tablet and 1 tablet in the evening. dextroamphe 2022-0 Yes [id number] 30mg Take 1 [facility] tamine-amph 2-20 tablet by ity of etamine 00:00: mouth in [place] (ADDERALL) 00 the Medical 30 mg morning Branch tablet and 1 tablet in the evening. dextroamphe 2022-0 Yes [id number] 30mg Take 1 [facility] tamine-amph 2-20 tablet by ity of etamine 00:00: mouth in [place] (ADDERALL) 00 the Medical 30 mg morning Branch tablet and 1 tablet in the evening. dextroamphe 3-0 Yes [id number] 30mg Take 1 [facility] tamine-amph 2-20 tablet by ity of etamine 00:00: mouth in [place] (ADDERALL) 00 the Medical 30 mg morning Branch tablet and 1 tablet in the evening. dextroamphe 3-0 Yes [id number] 30mg Take 1 [facility] tamine-amph 2-20 tablet by ity of etamine 00:00: mouth in [place] (ADDERALL) 00 the Medical 30 mg morning Branch tablet and 1 tablet in the evening. dextroamphe 3-0 Yes [id number] 30mg Take 1 [facility] tamine-amph 2-20 tablet by ity of etamine 00:00: mouth in [place] (ADDERALL) 00 the Medical 30 mg morning Branch tablet and 1 tablet in the evening. dextroamphe 2022-0 2023- No [id number] 30mg Take 1 [facility] tamine-amph 2-20 03-20 tablet by it y of etamine 00:00: 00:00 mouth in [place] (ADDERALL) 00 :00 the Medical 30 mg morning Branch tablet and 1 tablet in the evening. azelastine 2022-0 Yes [id number] 1{spray Use 1 [facility] 137 mcg 2-17 } [place] in ity of (0.1 %) 00:00: each [place] nasal spray [address] the Branch morning and 1 [place] in the evening. Use in each nostril as directed azelastine 2022-0 Yes [id number] 1{spray Use 1 [facility] 137 mcg 2-17 } [place] in ity of (0.1 %) 00:00: each [place] nasal spray [address]ical the Branch morning and 1 [place] in the evening. Use in each nostril as directed azelastine 2022-0 Yes [id number] 1{spray Use 1 [facility] 137 mcg 2-17 } [place] in ity of (0.1 %) 00:00: each [place] nasal spray [address]ical the Branch morning and 1 [place] in the evening. Use in each nostril as directed azelastine 3-0 Yes [id number] 1{spray Use 1 [facility] 137 mcg 2-17 } [place] in ity of (0.1 %) 00:00: each [place] nasal spray [address] dical the Branch morning and 1 [place] in the evening. Use in each nostril as directed azelastine 2022-0 Yes [id number] 1{spray Use 1 [facility] 137 mcg 2-17 } [place] in ity of (0.1 %) 00:00: each [place] nasal spray [address] dical the Branch morning and 1 [place] in the evening. Use in each nostril as directed azelastine 3-0 Yes [id number] 1{spray Use 1 [facility] 137 mcg 2-17 } [place] in ity of (0.1 %) 00:00: each [place] nasal spray 00 nostril in Me dical the Branch morning and 1 [place] in the evening. Use in each nostril as directed azelastine 2023-0 Yes [id number] 1{spray Use 1 [facility] 137 mcg 2-17 } [place] in ity of (0.1 %) 00:00: each [place] nasal spray 00 nostril in Me dical the Branch morning and 1 [place] in the evening. Use in each nostril as directed azelastine 2023-0 Yes [id number] 1{spray Use 1 [facility] 137 mcg 2-17 } [place] in ity of (0.1 %) 00:00: each [place] nasal spray 00 nostril in Me dical the Branch morning and 1 [place] in the evening. Use in each nostril as directed azelastine 2023-0 Yes [id number] 1{spray Use 1 [facility] 137 mcg 2-17 } [place] in ity of (0.1 %) 00:00: each [place] nasal spray 00 nostril in Me dical the Branch morning and 1 [place] in the evening. Use in each nostril as directed azelastine 2023-0 Yes [id number] 1{spray Use 1 [facility] 137 mcg 2-17 } [place] in ity of (0.1 %) 00:00: each [place] nasal spray 00 nostril in Me dical the Branch morning and 1 [place] in the evening. Use in each nostril as directed azelastine 2023-0 Yes [id number] 1{spray Use 1 [facility] 137 mcg 2-17 } [place] in ity of (0.1 %) 00:00: each [place] nasal spray 00 nostril in Me dical the Branch morning and 1 [place] in the evening. Use in each nostril as directed azelastine 2023-0 Yes [id number] 1{spray Use 1 [facility] 137 mcg 2-17 } [place] in ity of (0.1 %) 00:00: each [place] nasal spray 00 nostril in Me dical the Branch morning and 1 [place] in the evening. Use in each nostril as directed azelastine 2023-0 Yes [id number] 1{spray Use 1 [facility] 137 mcg 2-17 } [place] in ity of (0.1 %) 00:00: each [place] nasal spray 00 nostril in Me dical the Branch morning and 1 [place] in the evening. Use in each nostril as directed azelastine 2023-0 Yes [id number] 1{spray Use 1 [facility] 137 mcg 2-17 } [place] in ity of (0.1 %) 00:00: each [place] nasal spray 00 nostril in Me dical the Branch morning and 1 [place] in the evening. Use in each nostril as directed azelastine 2023-0 Yes [id number] 1{spray Use 1 [facility] 137 mcg 2-17 } [place] in ity of (0.1 %) 00:00: each [place] nasal spray [address] dical the Branch morning and 1 [place] in the evening. Use in each nostril as directed azelastine 2023-0 Yes [id number] 1{spray Use 1 [facility] 137 mcg 2-17 } [place] in ity of (0.1 %) 00:00: each [place] nasal spray [address] dical the Branch morning and 1 [place] in the evening. Use in each nostril as directed azelastine 2023-0 Yes [id number] 1{spray Use 1 [facility] 137 mcg 2-17 } [place] in ity of (0.1 %) 00:00: each [place] nasal spray 00 nostril in Me dical the Branch morning and 1 [place] in the evening. Use in each nostril as directed azelastine 2023-0 Yes [id number] 1{spray Use 1 [facility] 137 mcg 2-17 } [place] in ity of (0.1 %) 00:00: each [place] nasal spray 00 nostril in Me dical the Branch morning and 1 [place] in the evening. Use in each nostril as directed azelastine 2023-0 Yes [id number] 1{spray Use 1 [facility] 137 mcg 2-17 } [place] in ity of (0.1 %) 00:00: each [place] nasal spray 00 nostril in Me dical the Branch morning and 1 [place] in the evening. Use in each nostril as directed azelastine 2023-0 Yes [id number] 1{spray Use 1 [facility] 137 mcg 2-17 } [place] in ity of (0.1 %) 00:00: each [place] nasal spray [address] dical the Branch morning and 1 [place] in the evening. Use in each nostril as directed azelastine 3-0 Yes [id number] 1{spray Use 1 [facility] 137 mcg 2-17 } [place] in ity of (0.1 %) 00:00: each [place] nasal spray [address] dical the Branch morning and 1 [place] in the evening. Use in each nostril as directed azelastine 3-0 Yes [id number] 1{spray Use 1 [facility] 137 mcg 2-17 } [place] in ity of (0.1 %) 00:00: each [place] nasal spray [address] dical the Branch morning and 1 [place] in the evening. Use in each nostril as directed azelastine 2022-0 Yes [id number] 1{spray Use 1 [facility] 137 mcg 2-17 } [place] in ity of (0.1 %) 00:00: each [place] [facility] [place] in the evening. Use in each nostril as directed azelastine 2022-0 Yes [id number] 1{spray Use 1 [facility] 137 mcg 2-17 } [place] in ity of (0.1 %) 00:00: each [place] nasal spray [address]ical the Branch morning and 1 [place] in the evening. Use in each nostril as directed azelastine 2022-0 Yes [id number] 1{spray Use 1 [facility] 137 mcg 2-17 } [place] in ity of (0.1 %) 00:00: each [place] nasal spray [address]ical the Branch morning and 1 [place] in the evening. Use in each nostril as directed azelastine 3-0 Yes [id number] 1{spray Use 1 [facility] 137 mcg 2-17 } [place] in ity of (0.1 %) 00:00: each [place] nasal spray [address]ical the Branch morning and 1 [place] in the evening. Use in each nostril as directed methylPREDN 2022-0 Yes [id number] Take by [facility] ISolone 2-17 mouth ity of (MEDROL, 00:00: SEE-INSTRU [place] as ADAM,) 4 mg 00 CTIONS. Medica l tablets follow Branch package directions azelastine 2022-0 Yes [id number] 1{spray Use 1 [facility] 137 mcg 2-17 } [place] in ity of (0.1 %) 00:00: each [place] nasal spray [address] dical the Branch morning and 1 [place] in the evening. Use in each nostril as directed albuterol 2022-0 Yes [id number] 2{puff} Inhale 2 [facility] 90 2-17 Puffs ity of mcg/actuati 00:00: every 6 [place] as on inhaler 00 (six) Medical hours as Branch needed for Wheezing. benzonatate 2022-0 Yes [id number] 100mg Take 1 [facility] (TESSALON 2-17 capsule by ity of PERLES) 100 00:00: mouth [place] mg capsule 00 every 8 Medica l (eight) Branch hours as needed for Cough. methylPREDN 2022-0 Yes [id number] Take by [facility] ISolone 2-17 mouth ity of (MEDROL, 00:00: SEE-INSTRU [place] as ADAM,) 4 mg 00 CTIONS. Medica l tablets follow Branch package directions azelastine 2022-0 Yes [id number] 1{spray Use 1 [facility] 137 mcg 2-17 } [place] in ity of (0.1 %) 00:00: each [place] [facility] [place] in the evening. Use in each nostril as directed albuterol 2022-0 Yes [id number] 2{puff} Inhale 2 [facility] 90 2-17 Puffs ity of mcg/actuati 00:00: every 6 [place] as on inhaler 00 (six) Medical hours as Branch needed for Wheezing. benzonatate 2022-0 Yes [id number] 100mg Take 1 [facility] (TESSALON 2-17 capsule by ity of PERLES) 100 00:00: mouth [place] mg capsule 00 every 8 Medica l (eight) Branch hours as needed for Cough. methylPREDN 2023-0 Yes [id number] Take by [facility] ISolone 2-17 mouth ity of (MEDROL, 00:00: SEE-INSTRU [place] as ADAM,) 4 mg 00 CTIONS. Medica l tablets follow Branch package directions azelastine 2022-0 Yes [id number] 1{spray Use 1 [facility] 137 mcg 2-17 } [place] in ity of (0.1 %) 00:00: each [place] nasal spray [address] dical the Branch morning and 1 [place] in the evening. Use in each nostril as directed albuterol 2022-0 Yes [id number] 2{puff} Inhale 2 [facility] 90 2-17 Puffs ity of mcg/actuati 00:00: every 6 [place] as on inhaler 00 (six) Medical hours as Branch needed for Wheezing. benzonatate 2023-0 Yes [id number] 100mg Take 1 [facility] (TESSALON 2-17 capsule by ity of PERLES) 100 00:00: mouth [place] mg capsule 00 every 8 Medica l (eight) Branch hours as needed for Cough. methylPREDN 2023-0 Yes [id number] Take by [facility] ISolone 2-17 mouth ity of (MEDROL, 00:00: SEE-INSTRU [place] as ADAM,) 4 mg 00 CTIONS. Medica l tablets follow Branch package directions azelastine 3-0 Yes [id number] 1{spray Use 1 [facility] 137 mcg 2-17 } [place] in ity of (0.1 %) 00:00: each [place] nasal spray [address]ical the Branch morning and 1 [place] in the evening. Use in each nostril as directed benzonatate 3-0 Yes [id number] 100mg Take 1 [facility] (TESSALON 2-17 capsule by ity of PERLES) 100 00:00: mouth [place] mg capsule 00 every 8 Medica l (eight) Branch hours as needed for Cough. methylPREDN 2023-0 Yes [id number] Take by [facility] ISolone 2-17 mouth ity of (MEDROL, 00:00: SEE-INSTRU [place] as ADAM,) 4 mg 00 CTIONS. Medica l tablets follow Branch package directions azelastine 2023-0 Yes [id number] 1{spray Use 1 [facility] 137 mcg 2-17 } [place] in ity of (0.1 %) 00:00: each [place] nasal spray [address] dical the Branch morning and 1 [place] in the evening. Use in each nostril as directed benzonatate 2023-0 Yes [id number] 100mg Take 1 [facility] (TESSALON 2-17 capsule by ity of PERLES) 100 00:00: mouth [place] mg capsule 00 every 8 Medica l (eight) Branch hours as needed for Cough. methylPREDN 2023-0 Yes [id number] Take by [facility] ISolone 2-17 mouth ity of (MEDROL, 00:00: SEE-INSTRU Jorge Alberto as ADAM,) 4 mg 00 CTIONS. Medica l tablets follow Branch package directions azelastine 3-0 Yes [id number] 1{spray Use 1 [facility] 137 mcg 2-17 } [place] in ity of (0.1 %) 00:00: each [place] nasal spray [address] d[address] the Branch morning and 1 [place] in the evening. Use in each nostril as directed benzonatate 2023-0 Yes [id number] 100mg Take 1 [facility] (TESSALON 2-17 capsule by ity of PERLES) 100 00:00: mouth [place] mg capsule 00 every 8 Medica l (eight) Branch hours as needed for Cough. methylPREDN 2023-0 Yes [id number] Take by [facility] ISolone 2-17 mouth ity of (MEDROL, 00:00: SEE-INSTRU Jorge Alberto as ADAM,) 4 mg 00 CTIONS. Medica l tablets follow Branch package directions azelastine 3-0 Yes [id number] 1{spray Use 1 [facility] 137 mcg 2-17 } [place] in ity of (0.1 %) 00:00: each [place] nasal spray [address] dical the Branch morning and 1 [place] in the evening. Use in each nostril as directed benzonatate 2023-0 Yes [id number] 100mg Take 1 [facility] (TESSALON 2-17 capsule by ity of PERLES) 100 00:00: mouth [place] mg capsule 00 every 8 Medica l (eight) Branch hours as needed for Cough. methylPREDN 3-0 Yes [id number] Take by [facility] ISolone 2-17 mouth ity of (MEDROL, 00:00: SEE-INSTRU Jorge Alberto as ADAM,) 4 mg 00 CTIONS. Medica l tablets follow Branch package directions azelastine 2023-0 Yes [id number] 1{spray Use 1 [facility] 137 mcg 2-17 } [place] in ity of (0.1 %) 00:00: each [place] nasal spray 00 nostril in Me dical the Branch morning and 1 [place] in the evening. Use in each nostril as directed benzonatate 2023-0 Yes [id number] 100mg Take 1 [facility] (TESSALON 2-17 capsule by ity of PERLES) 100 00:00: mouth [place] mg capsule 00 every 8 Medica l (eight) Branch hours as needed for Cough. methylPREDN 2023-0 Yes [id number] Take by [facility] ISolone 2-17 mouth ity of (MEDROL, 00:00: SEE-INSTRU Jorge Alberto as ADAM,) 4 mg 00 CTIONS. Medica l tablets follow Branch package directions azelastine 2023-0 Yes [id number] 1{spray Use 1 [facility] 137 mcg 2-17 } [place] in ity of (0.1 %) 00:00: each [place] nasal spray [address] dical the Branch morning and 1 [place] in the evening. Use in each nostril as directed benzonatate 2023-0 Yes [id number] 100mg Take 1 [facility] (TESSALON 2-17 capsule by ity of PERLES) 100 00:00: mouth [place] mg capsule 00 every 8 Medica l (eight) Branch hours as needed for Cough. methylPREDN 2023-0 Yes [id number] Take by [facility] ISolone 2-17 mouth ity of (MEDROL, 00:00: SEE-INSTRU Jorge Alberto as ADAM,) 4 mg 00 CTIONS. Medica l tablets follow Branch package directions azelastine 2023-0 Yes [id number] 1{spray Use 1 [facility] 137 mcg 2-17 } [place] in ity of (0.1 %) 00:00: each [place] nasal spray [address] dical the Branch morning and 1 [place] in the evening. Use in each nostril as directed benzonatate 2023-0 Yes [id number] 100mg Take 1 [facility] (TESSALON 2-17 capsule by ity of PERLES) 100 00:00: mouth [place] mg capsule 00 every 8 Medica l (eight) Branch hours as needed for Cough. methylPREDN 2023-0 Yes [id number] Take by [facility] ISolone 2-17 mouth ity of (MEDROL, 00:00: SEE-INSTRU Jorge Alberto as ADAM,) 4 mg 00 CTIONS. Medica l tablets follow Branch package directions azelastine 2023-0 Yes [id number] 1{spray Use 1 [facility] 137 mcg 2-17 } [place] in ity of (0.1 %) 00:00: each [place] nasal spray [address] dical the Branch morning and 1 [place] in the evening. Use in each nostril as directed benzonatate 3-0 Yes [id number] 100mg Take 1 [facility] (TESSALON 2-17 capsule by [place]) 100 00:00: mouth [place] mg capsule 00 every 8 Medica l (eight) Branch hours as needed for Cough. azelastine 3-0 Yes [id number] 1{spray Use 1 [facility] 137 mcg 2-17 } [place] in ity of (0.1 %) 00:00: each [place] nasal spray [address] dical the Branch morning and 1 [place] in the evening. Use in each nostril as directed azelastine 2022-0 3- No [id number] 1{spray Use 1 [facility] 137 mcg 2-17 10-23 } [place] in ity of (0.1 %) 00:00: 00:00 each [place] nasal spray 00 :[address] dical the Branch morning and 1 [place] in the evening. Use in each nostril as directed azelastine 2022-0 3- No [id number] 1{spray Use 1 [facility] 137 mcg 2-17 10-23 } [place] in ity of (0.1 %) 00:00: 00:00 each [place] [facility] [place] in the evening. Use in each nostril as directed azelastine 3-0 3- No [id number] 1{spray Use 1 [facility] 137 mcg 2-17 10-23 } [place] in ity of (0.1 %) 00:00: 00:00 each [place] [facility] [place] in the evening. Use in each nostril as directed benzonatate 3-0 2023- No [id number] 100mg Take 1 [facility] (TESSALON 2-17 04-17 capsule by [place]) 100 00:00: 00:00 mouth [place] capsule 00 :00 every 8 Medica l (eight) Branch hours as needed for Cough. methylPREDN 3-0 2023- No [id number] Take by [facility] ISolone 2-17 04-17 mouth ity of (MEDROL, 00:00: 00:00 SEE-INSTRU [place] ADAM,) 4 mg 00 :00 CTIONS. Medica l tablets follow Branch package directions benzonatate 2022- No [id number] 100mg Take 1 [facility] (TESSALON 12-06 capsule by ity of ABNER) 100 00:00: 00:00 mouth [place] mg capsule 00 :00 every 8 Medica l (eight) Branch hours as needed for Cough. methylPREDN 2022- No [id number] Take by [facility] ISolone -17 - mouth ity of (MEDROL, 00:00: 00:00 SEE-INSTRU [place] ADAM,) 4 mg 00 :00 CTIONS. Medica l tablets follow Branch package directions albuterol 2022- No [id number] 2{puff} Inhale 2 [facility] 90 2-17 03-14 Puffs ity of mcg/actuati 00:00: 00:00 every 6 [place] on inhaler 00 :00 (six) Medical hours as Branch needed for Wheezing. albuterol 2022- No [id number] 2{puff} Inhale 2 [facility] 90 2-17 03-14 Puffs ity of mcg/actuati 00:00: 00:00 every 6 [place] on inhaler 00 :00 (six) Medical hours as Branch needed for Wheezing. triamcinolo 2022-0 Yes [id number] Apply to [facility] ne 2-01 area(s) 2 ity of acetonide 00:00: (two) [place] 0.1 % cream 00 times Medical daily. Branch triamcinolo 2022-0 Yes [id number] Apply to [facility] ne 2-01 area(s) 2 ity of acetonide 00:00: (two) [place] 0.1 % cream 00 times Medical daily. Branch triamcinolo 2022-0 Yes [id number] Apply to [facility] ne 2-01 area(s) 2 ity of acetonide 00:00: (two) [place] 0.1 % cream 00 times Medical daily. Branch triamcinolo 2022-0 Yes [id number] Apply to [facility] ne 2-01 area(s) 2 ity of acetonide 00:00: (two) [place] 0.1 % cream 00 times Medical daily. Branch triamcinolo 202-0 Yes [id number] Apply to [place] [facility] 2- area(s) 2 ity of acetonide 00:00: (two) [place] 0.1 % cream 00 times Medical daily. Branch triamcinolo 2023-0 Yes [id number] Apply to [place] [facility] 2- area(s) 2 ity of acetonide 00:00: (two) [place] 0.1 % cream 00 times Medical daily. Branch triamcinolo 2023-0 Yes [id number] Apply to [place] [facility] 2 area(s) 2 ity of acetonide 00:00: (two) [place] 0.1 % cream 00 times Medical daily. Branch triamcinolo 2023-0 Yes [id number] Apply to [place] [facility] 2 area(s) 2 ity of acetonide 00:00: (two) [place] 0.1 % cream 00 times Medical daily. Branch triamcinolo 2023-0 Yes [id number] Apply to [place] [facility] 2 area(s) 2 ity of acetonide 00:00: (two) [place] 0.1 % cream 00 times Medical daily. Branch triamcinolo 3-0 2023- No [id number] Apply to [place] [facility] 2 03-17 area(s) 2 ity of acetonide 00:00: 00:00 (two) [place] 0.1 % cream 00 :00 times Medical daily. Branch triamcinolo 3-0 2023- No [id number] Apply to [place] [facility] 11-20-17 area(s) 2 ity of acetonide 00:00: 00:00 (two) [place] 0.1 % cream 00 :00 times Medical daily. Branch sulfamethox 2022-0 Yes Univer s azole-trime 11-19 ity of thoprim 00:00: [place] 800-160 mg 00 Medical per tablet Branch sulfamethox 2022-0 Yes Univer s azole-trime 11-19 ity of thoprim 00:00: [place] 800-160 mg 00 Medical per tablet Branch sulfamethox 3-0 2023- No Unive rs azole-trime 11-19 ity of thoprim 00:00: 00:00 [place] 800-160 mg 00 :00 Medical per tablet Branch sulfamethox 3-0 2023- No Unive rs azole-trime 11-19 ity of [...] 00:00: MOUTH FOR SLEEP Medical Branch hydrOXYzine Yes TAKE 1-2 Un ninoska 25 mg 1-27 TABLET BY ity of tablet 00:00: MOUTH FOR SLEEP Medical Branch hydrOXYzine 2022- No TAKE 1-2 U nivers 25 mg 1-27 -17 TABLET BY ity of tablet 00:00: 00:00 MOUTH FOR 00 :00 SLEEP Medical Branch hydrOXYzine 2022- No TAKE 1-2 U nivers 25 mg 1-27 -17 TABLET BY ity of tablet 00:00: 00:00 MOUTH FOR 00 :00 SLEEP Medical Branch mupirocin 2 Yes APPLY Unive rs % [...] 2022- No APPLY Univ ers % ointment 1-12 02-17 SPARINGLY ity of 00:00: 00:00 TOPICALLY [place] [...] by mouth ity of tablet 00:00: every morning. Medical Branch SENNA 8.6 Yes TAKE 2-4 Univ ers mg tablet 1-25 TABLETS BY ity of 00:00: MOUTH DIRECTED Medical NEEDED. Branch DO NOT EXCEED 4 TABLETS IN 24 HOURS predniSONE 2022-0 Yes 20mg Take 20 mg U nivers 20 mg 1-25 by mouth ity of tablet 00:00: every morning. Medical Branch SENNA 8.6 Yes TAKE 2-4 Univ ers mg tablet 1-25 TABLETS BY ity of 00:00: MOUTH DIRECTED Medical NEEDED. Branch DO NOT EXCEED [...] 1-25 TABLETS BY ity of 00:00: MOUTH [place] [id number] DIRECTED Medical NEEDED. Branch DO NOT EXCEED 4 TABLETS IN 24 HOURS SENNA 8.6 2022-0 Yes TAKE 2-4 Univ ers mg tablet 1-25 TABLETS BY ity of 00:00: MOUTH [place] 00 DIRECTED Medical NEEDED. Branch DO NOT EXCEED 4 TABLETS IN 24 HOURS SENNA 8.6 2022-0 3- No TAKE 2-4 Uni vers mg tablet 1-25 -17 TABLETS BY ity of 00:00: 00:00 MOUTH [place] 00 :00 DIRECTED Medical NEEDED. Branch DO NOT EXCEED 4 TABLETS IN 24 HOURS SENNA 8.6 2022-0 2022- No TAKE 2-4 Uni vers mg tablet 1-25 04-17 TABLETS BY ity of 00:00: 00:00 MOUTH [place] 00 :00 DIRECTED Medical NEEDED. Branch DO NOT EXCEED 4 TABLETS IN 24 HOURS predniSONE 3-0 3- No 20mg Take 20 mg [facility] 20 mg 1-25 -17 by mouth ity of tablet 00:00: 00:00 every [place] 00 :00 morning. Medical Branch predniSONE 3-0 3- No 20mg Take 20 mg [facility] 20 mg 1-25 -17 by mouth ity of tablet 00:00: 00:00 every [place] 00 :00 morning. Medical Branch omeprazole 3-0 Yes TAKE 1 Unive rs 40 mg 1-23 CAPSULE BY ity of capsule 00:00: MOUTH IN [place] 00 THE Medical MORNING Branch omeprazole 3-0 Yes TAKE 1 Unive rs 40 mg 1-23 CAPSULE BY ity of capsule 00:00: MOUTH IN [place] 00 THE Medical MORNING Branch omeprazole 3-0 Yes TAKE 1 Unive rs 40 mg 1-23 CAPSULE BY ity of capsule 00:00: MOUTH IN [place] 00 THE Medical MORNING Branch omeprazole 3-0 Yes TAKE 1 Unive rs 40 mg 1-23 CAPSULE BY ity of capsule 00:00: MOUTH IN [place] 00 THE Medical MORNING Branch omeprazole 3-0 Yes TAKE 1 Unive rs 40 mg 1-23 CAPSULE BY ity of capsule 00:00: MOUTH IN [place] 00 THE Medical MORNING Branch omeprazole 3-0 Yes TAKE 1 Unive rs 40 mg 1-23 CAPSULE BY ity of capsule 00:00: MOUTH IN [place] 00 THE Medical MORNING Branch omeprazole 2023-0 Yes TAKE 1 Unive rs 40 mg 1-23 CAPSULE BY ity of capsule 00:00: MOUTH IN [place] 00 THE Medical MORNING Branch omeprazole 2023-0 Yes TAKE 1 Unive rs 40 mg 1-23 CAPSULE BY ity of capsule 00:00: MOUTH IN [place] 00 THE Medical MORNING Branch omeprazole 2023-0 Yes TAKE 1 Unive rs 40 mg 1-23 CAPSULE BY ity of capsule 00:00: MOUTH IN [place] 00 THE Medical MORNING Branch omeprazole 2023-0 Yes TAKE 1 Unive rs 40 mg 1-23 CAPSULE BY ity of capsule 00:00: MOUTH IN [place] 00 THE Medical MORNING Branch omeprazole 2023-0 Yes TAKE 1 Unive rs 40 mg 1-23 CAPSULE BY ity of capsule 00:00: MOUTH IN [place] 00 THE Medical MORNING Branch omeprazole 3-0 Yes TAKE 1 Unive rs 40 mg 1-23 CAPSULE BY ity of capsule 00:00: MOUTH IN [place] 00 THE Medical MORNING Branch omeprazole 2023-0 Yes TAKE 1 Unive rs 40 mg 1-23 CAPSULE BY ity of capsule 00:00: MOUTH IN [place] 00 THE Medical MORNING Branch omeprazole 3-0 Yes TAKE 1 Unive rs 40 mg 1-23 CAPSULE BY ity of capsule 00:00: MOUTH IN [place] 00 THE Medical MORNING Branch omeprazole 3-0 3- No TAKE 1 Univ ers 40 mg 1-23 04-17 CAPSULE BY ity of capsule 00:00: 00:00 MOUTH IN [place] 00 :00 THE Medical MORNING Branch omeprazole 2023-0 3- No TAKE 1 Univ ers 40 mg 1-23 04-17 CAPSULE BY ity of capsule 00:00: 00:00 MOUTH IN [place] 00 :00 THE Medical MORNING Branch FAMOTIDINE 3-0 No 1-17 00:00: 00 LAMOTRIGINE 3-0 No 1-12 00:00: 00 dextroamphe 2023-0 Yes [id number] 30mg Take 1 [facility] tamine-amph 1-11 tablet by ity of etamine 00:00: mouth in [place] (ADDERALL) 00 the Medical 30 mg morning Branch tablet and 1 tablet in the evening. dextroamphe 2023-0 Yes [id number] 30mg Take 1 [facility] tamine-amph 1-11 tablet by ity of etamine 00:00: mouth in [place] (ADDERALL) 00 the Medical 30 mg morning Branch tablet and 1 tablet in the evening. dextroamphe 2023-0 Yes [id number] 30mg Take 1 [facility] tamine-amph 1-11 tablet by ity of etamine 00:00: mouth in [place] (ADDERALL) 00 the Medical 30 mg morning Branch tablet and 1 tablet in the evening. dextroamphe 2023-0 Yes [id number] 30mg Take 1 [facility] tamine-amph 1-11 tablet by ity of etamine 00:00: mouth in [place] [facility] the Medical 30 mg morning Branch tablet and 1 tablet in the evening. dextroamphe 2023-0 Yes [id number] 30mg Take 1 [facility] tamine-amph 1-11 tablet by ity of etamine 00:00: mouth in [place] [facility] the Medical 30 mg morning Branch tablet and 1 tablet in the evening. dextroamphe 2023-0 Yes [id number] 30mg Take 1 [facility] tamine-amph 1-11 tablet by ity of etamine 00:00: mouth in [place] ([facility]) 00 the Medical 30 mg morning Branch tablet and 1 tablet in the evening. dextroamphe 2023-0 2023- No [id number] 30mg Take 1 [facility] tamine-amph 1-11 02-20 tablet by it y of etamine 00:00: 00:00 mouth in [place] [facility] :[facility] the Medical 30 mg morning Branch tablet and 1 tablet in the evening. acyclovir 2-1 Yes 400mg Take 400 Uni vers 400 mg 2-29 mg by ity of tablet 00:00: mouth [place] 00 every 8 Medical (eight) Branch hours. acyclovir 2022-1 Yes 400mg Take 400 Uni vers 400 mg 2-29 mg by ity of tablet 00:00: mouth [place] 00 every 8 Medical (eight) Branch hours. acyclovir 2022-1 Yes 400mg Take 400 Uni vers 400 mg 2-29 mg by ity of tablet 00:00: mouth [place] 00 every 8 Medical (eight) Branch hours. acyclovir 2022-1 Yes 400mg Take 400 Uni vers 400 mg 2-29 mg by ity of tablet 00:00: mouth [place] 00 every 8 Medical (eight) Branch hours. acyclovir 2022-1 Yes 400mg Take 400 Uni vers 400 mg 2-29 mg by ity of tablet 00:00: mouth [place] 00 every 8 Medical (eight) Branch hours. acyclovir 2021- Yes 400mg Take 400 Uni vers 400 [...] every 8 Medical (eight) Branch hours. acyclovir 2021- Yes 400mg Take 1 Unive rs 400 mg 2-29 tablet by ity of tablet 00:00: mouth [place] 00 every 8 Medical (eight) Branch hours. acyclovir 2021- Yes 400mg Take 1 Unive rs 400 mg 2-29 tablet by ity of tablet 00:00: mouth [place] 00 every 8 Medical (eight) Branch hours. acyclovir 2021- Yes 400mg Take 1 Unive rs 400 mg 2-29 tablet by ity of tablet 00:00: mouth [place] 00 every 8 Medical (eight) Branch hours. acyclovir 2021- Yes 400mg Take 1 Unive rs 400 mg 2-29 tablet by ity of tablet 00:00: mouth [place] 00 every 8 Medical (eight) Branch hours. acyclovir 2021- Yes 400mg Take 1 Unive rs 400 mg 2-29 tablet by ity of tablet 00:00: mouth [place] 00 every 8 Medical (eight) Branch hours. ACYCLOVIR 2021-1 No 2-29 00:00: 00 TAKE 1 2021-1 No 400 TABLET 2-29 EVERY 8 00:00: HOURS 00 DAILY. acyclovir 2021-1 2022- No 400mg Take 1 Univ ers 400 [...] No 100 TABLET 2-23 DAILY. 00:00: 00 dextroamphe 2021-10 Yes [id number] 30mg Take 1 [facility] tamine-amph 2-22 tablet by ity of etamine 00:00: mouth in [place] ([facility]DER[facility]) 00 the Medical 30 mg morning Branch tablet and 1 tablet in the evening. AMPHET/DEXT 2021-10 No R 30MG 2-22 Tablets 00:00: 00 AMPHET/DEXT 2021-10 No 30 R 30MG 2-22 00:00: 00 dextroamphe 2021-10- No [id number] 30mg Take 1 [facility] tamine-amph 2-22 01-11 tablet by it y of etamine 00:00: 00:00 mouth in [place] (ADDERALL) 00 :00 the Medical 30 mg morning Branch tablet and 1 tablet in the evening. FAMOTIDINE 2021-10 No 2-20 00:00: 00 OMEPRAZOLE 2021-10 No 2-20 00:00: 00 BUSPIRONE 2021-10 No 2-09 00:00: 00 TRAMADOL 2021-10 No HCL 2-08 00:00: 00 TAKE 1 2021-10 No 50 TABLET BY 2-08 MOUTH EVERY 00:00: 6 HOURS 00 NEEDED dextroamphe 2021-10 Yes [id number] 30mg Take 1 [facility] tamine-amph 2-07 tablet by ity of etamine 00:00: mouth in [place] (ADDERALL) 00 the Medical 30 mg morning Branch tablet and 1 tablet in the evening. dextroamphe 2021-10 Yes [id number] 30mg Take 1 [facility] tamine-amph 2-07 tablet by ity of etamine 00:00: mouth in [place] (ADDERALL) 00 the Medical 30 mg morning Branch tablet and 1 tablet in the evening. dextroamphe 2021-10 Yes [id number] 30mg Take 1 [facility] tamine-amph 2-07 tablet by ity of etamine 00:00: mouth in [place] (ADDERALL) 00 the Medical 30 mg morning Branch tablet and 1 tablet in the evening. dextroamphe 2021-10- No [id number] 30mg Take 1 [facility] tamine-amph 2-07 10-10 tablet by it y of etamine 00:00: 00:00 mouth in [place] (ADDERALL) 00 :00 the Medical 30 mg morning Branch tablet and 1 tablet in the evening. TAKE 2021-10 No 100 TABLET -28 DAILY. 00:00: 00 TAKE 2021-10 No 5 TABLET BY -28 MOUTH TWICE 00:00: DAILY 00 TAKE 2021-10 No 100 TABLET AT 11-16 BEDTIME. 00:00: 00 TAKE 2021-10 No 100 TABLET BY -28 MOUTH DAILY 00:00: 00 PANTOPRAZOL 2021-10 No E 11-10 00:00: 00 dextroamphe 2021-10 Yes [id number] 20mg Take 1 [facility] tamine-amph 1-16 tablet by ity of etamine 00:00: mouth in [place] (ADDERAL) 00 the Medical 20 mg morning Branch tablet and 1 tablet in the evening. TAKE 2021-10 No TABLET BY 1-16 MOUTH IN 00:00: THE MORNING 00 AND IN THE EVENING dextroamphe 2021-10- No [id number] 20mg Take 1 [facility] tamine-amph 1-16 - tablet by it y of etamine 00:00: 00:00 mouth in [place] ([facility] :00 the Medical 20 mg morning Branch tablet and 1 tablet in the evening. dextroamphe 2021-10- No [id number] 20mg Take 1 [facility] tamine-amph 1-16 12-07 tablet by it y of etamine 00:00: 00:00 mouth in [place] (ADDERALL) 00 :00 the Medical 20 mg morning Branch tablet and 1 tablet in the evening. TRAZODONE 2021-10 No 0-28 00:00: 00 TRAZODONE 2021-10 No 0-28 00:00: 00 dextroamphe 2021-10 Yes [id number] 20mg Take 1 [facility] tamine-amph 0-24 tablet by ity of etamine 00:00: mouth in [place] (ADDERALL) 00 the Medical 20 mg morning Branch tablet and 1 tablet in the evening. dextroamphe 2021-10- No [id number] 20mg Take 1 [facility] tamine-amph 0-24 11-16 tablet by it y of etamine 00:00: 00:00 mouth in [place] (ADDERALL) 00 :00 the Medical 20 mg morning Branch tablet and 1 tablet in the evening. diazePAM 2021-10- No 2mg 2 mg, Slow Un [place] (VALIUM) 0-20 10-20 IV Push, ity of injection 2 02:15: 02:20 ONCE, 1 [place] 00 :00 dose, On [facility] 08/07/22 at 2115, STAT diazePAM 2021-10 No 2mg 2 mg, Slow Un n[place] (VALIUM) 0-20 10-20 IV Push, ity of injection 2 01:45: 01:43 ONCE, 1 [place] mg 00 :00 dose, On [facility] 08/07/22 at 2045, STAT NaCl 0.9% 2021-10 No 1000mL at 999 Uni vers (NS) bolus 0-19 10-20 mL/hr, ity of infusion 22:00: 00:30 1,000 mL, Jorge Alberto as 1,000 mL 00 :00 IV Medical Infusion, Branch ONCE, 1 dose, On [facility] 08/07/22 at 1700, CAMILA diazePAM 2021-10 No 5mg 5 mg, Univers (VALIUM) 0-19 10-19 Oral, ity of tablet 5 mg 22:00: 21:48 ONCE, 1 [place] 00 :00 dose, On [facility] 08/07/22 at 1700, CAMILA AZITHROMYCI 0 No N TAB 250MG 9 00:00: 00 METRONIDAZO 2021-0 No L TAB 500MG 9- 00:00: 00 traZODone 2021-0 Yes 100mg Take 100 Uni vers 100 mg 9-20 mg by ity of tablet 09:29: mouth at [place] [address] bedtime. [facility] traZODone 2021-0 Yes 100mg Take 100 Uni vers 100 mg 9-20 mg by ity of tablet 09:29: mouth at [place] [address] bedtime. Medical Branch traZODone 2022-0 Yes 100mg Take 100 Uni vers 100 mg 9-20 mg by ity of tablet 09:29: mouth at [place] [address] bedtime. Medical Branch traZODone 2-0 Yes 100mg Take 100 Uni vers 100 mg 9-20 mg by ity of tablet 09:29: mouth at [place] [address] bedtime. Medical Branch traZODone 2022-0 Yes 100mg Take 100 Uni vers 100 mg 9-20 mg by ity of tablet 09:29: mouth at [place] [address] bedtime. Medical Branch traZODone 2022-0 Yes 100mg Take 100 Uni vers 100 mg 9-20 mg by ity of tablet 09:29: mouth at [place] [address] bedtime. Medical Branch traZODone 2-0 Yes 100mg Take 100 Uni vers 100 mg 9-20 mg by ity of tablet 09:29: mouth at [place] [address] bedtime. Medical Branch traZODone 2-0 Yes 100mg Take 100 Uni vers 100 mg 9-20 mg by ity of tablet 09:29: mouth at [place] [address] bedtime. Medical Branch traZODone 2-0 Yes 100mg Take 100 Uni vers 100 mg 9-20 mg by ity of tablet 09:29: mouth at [place] [address] bedtime. Medical Branch traZODone 2-0 Yes 100mg Take 100 Uni vers 100 mg 9-20 mg by ity of tablet 09:29: mouth at [place] [address] bedtime. Medical Branch traZODone 2-0 Yes 100mg Take 100 Uni vers 100 mg 9-20 mg by ity of tablet 09:29: mouth at [place] [address] bedtime. Medical Branch traZODone 2-0 Yes 100mg Take 100 Uni vers 100 mg 9-20 mg by ity of tablet 09:29: mouth at [place] [address] bedtime. Medical Branch traZODone 2022-0 Yes 100mg Take 100 Uni vers 100 mg 9-20 mg by ity of tablet 09:29: mouth at [place] [address] bedtime. Medical Branch traZODone 2022-0 Yes 100mg Take 100 Uni vers 100 mg 9-20 mg by ity of tablet 09:29: mouth at [place] [address] bedtime. Medical Branch traZODone 2022-0 Yes 100mg Take 100 Uni vers 100 mg 9-20 mg by ity of tablet 09:29: mouth at [place] [address] bedtime. Medical Branch traZODone 2022-0 Yes 100mg Take 100 Uni vers 100 mg 9-20 mg by ity of tablet 09:29: mouth at [place] [address] bedtime. Medical Branch traZODone 2022-0 Yes 100mg Take 100 Uni vers 100 mg 9-20 mg by ity of tablet 09:29: mouth at [place] [address] bedtime. Medical Branch traZODone 2022-0 Yes 100mg Take 100 Uni vers 100 mg 9-20 mg by ity of tablet 09:29: mouth at [place] [address] bedtime. Medical Branch traZODone 2022-0 Yes 100mg Take 100 Uni vers 100 mg 9-20 mg by ity of tablet 09:29: mouth at [place] [address] bedtime. Medical Branch traZODone 2-0 Yes 100mg Take 100 Uni vers 100 mg 9-20 mg by ity of tablet 09:29: mouth at [place] [address] bedtime. Medical Branch traZODone 2022-0 Yes 100mg Take 100 Uni vers 100 mg 9-20 mg by ity of tablet 09:29: mouth at [place] [address] bedtime. Medical Branch traZODone 2-0 Yes 100mg Take 100 Uni vers 100 mg 9-20 mg by ity of tablet 09:29: mouth at [place] [address] bedtime. Medical Branch traZODone 2-0 Yes 100mg Take 100 Uni vers 100 mg 9-20 mg by ity of tablet 09:29: mouth at [place] [address] bedtime. Medical Branch clonazePAM 2022-0 2022- No .5mg Take 0.5 Un [place] 0.5 mg 9-20 09-20 mg by ity of tablet 09:29: 00:00 mouth at [place] 09 :00 bedtime. Medical Branch clonazePAM 2022-0 2022- No .5mg Take 0.5 Un n[place] 0.5 mg 9-20 09-20 mg by ity of tablet 09:29: 00:00 mouth at [place] 09 :00 bedtime. Medical Branch OXcarbazepi 2022-0 2022- No 300mg Take 300 Univers ne 300 mg 9-20 09-20 mg by ity of tablet 09:28: 00:00 mouth at [place] 57 :00 bedtime. Medical Branch OXcarbazepi 2022-0 2022- No 300mg Take 300 Univers ne 300 mg 9-20 09-20 mg by ity of tablet 09:28: 00:00 mouth at [place] 57 :00 bedtime. Medical Branch amoxicillin 2021-0 2022- No 1{tbl} Take 1 U nivers -clavulanat 9-20 09-20 tablet by it y of e 09:28: 00:00 mouth 2 [place] (AUGMENTIN) 22 :00 (two) Medical 875-125 mg times Branch per tablet daily. amoxicillin 2021-0 2021- No 1{tbl} Take 1 U nivers -clavulanat 9-20 09-20 tablet by it y of e 09:28: 00:00 mouth 2 [place] (AUGMENTIN) 22 :00 (two) Medical 875-125 mg times Branch per tablet daily. dextroamphe 2021-0 Yes [id number] 20mg Take 1 [facility] tamine-amph 9-20 tablet by ity of etamine 00:00: mouth in [place] ([facility]DER[facility]) 00 the Medical 20 mg morning Branch tablet and 1 tablet in the evening. dextroamphe 2021-0 Yes [id number] 20mg Take 1 [facility] tamine-amph 9-20 tablet by ity of etamine 00:00: mouth in [place] ([facility]DERALL) 00 the Medical 20 mg morning Branch tablet and 1 tablet in the evening. dextroamphe 2021-0 Yes [id number] 20mg Take 1 [facility] tamine-amph 9-20 tablet by ity of etamine 00:00: mouth in [place] ([facility]DER[facility]) 00 the Medical 20 mg morning Branch tablet and 1 tablet in the evening. dextroamphe 2021-0 Yes [id number] 20mg Take 1 [facility] tamine-amph 9-20 tablet by ity of etamine 00:00: mouth in [place] ([facility]DER[facility]) 00 the Medical 20 mg morning Branch tablet and 1 tablet in the evening. dextroamphe 2021-0 Yes [id number] 20mg Take 1 [facility] tamine-amph 9-20 tablet by ity of etamine 00:00: mouth in [place] ([facility]) 00 the Medical 20 mg morning Branch tablet and 1 tablet in the evening. dextroamphe 2021-0 Yes [id number] 20mg Take 1 [facility] tamine-amph 9-20 tablet by ity of etamine 00:00: mouth in [place] ([facility]DER[facility]) 00 the Medical 20 mg morning Branch tablet and 1 tablet in the evening. dextroamphe 2021- No [id number] 20mg Take 1 [facility] tamine-amph 9-20 10-24 tablet by it y of etamine 00:00: 00:00 mouth in [place] ([facility]DERALL) 00 :00 the Medical 20 mg morning Branch tablet and 1 tablet in the evening. dextroamphe 2021- No [id number] 20mg Take 1 [facility] tamine-amph 9-20 09-20 tablet by it y of etamine 00:00: 00:00 mouth in [place] ([facility]DERALL) 00 :00 the Medical 20 mg morning Branch tablet and 1 tablet in the evening. TAKE 1 No 10 TABLET BY 06-05 MOUTH ONCE 00:00: DAILY 00 METRONIDAZO No 500 L TAB 500MG 06-05 00:00: 00 AZITHROMYCI 2021- No 250 N TAB 250MG 06-05 00:00: 00 clonazePAM 2021- Yes .5mg Take 0.5 Uni vers 0.5 mg 8-16 mg by ity of tablet 13:20: mouth at [place] [address] bedtime. Medical Branch clonazePAM Yes .5mg Take 0.5 Uni vers 0.5 mg 8-16 mg by ity of tablet 13:20: mouth at [place] [address] bedtime. Medical Branch traZODone 2021- No 50mg Take 50 mg U nivers 50 mg 16 08-16 by mouth ity of tablet 13:19: 00:00 at [place] 27 :00 bedtime. Medical Branch traZODone 2021- No 50mg Take 50 mg U nivers 50 mg 816 08-16 by mouth ity of tablet 13:19: 00:00 at [place] 27 :00 bedtime. Medical Branch lithium 2021-2021- No 900mg Take 900 Univ ers carbonate 8-16 08-16 mg by ity of 300 mg 13:17: 00:00 mouth at [place] tablet 48 :00 bedtime. Medical Branch lithium 2021-2021- No 900mg Take 900 Univ ers carbonate 8-16 08-16 mg by ity of 300 mg 13:17: 00:00 mouth at [place] tablet 48 :00 bedtime. Medical Branch dextroamphe 2022-0 Yes [id number] 20mg Take 1 [facility] tamine-amph 8-16 tablet by ity of etamine 00:00: [facility] [place] [facility] 20 mg morning Branch tablet and 1 tablet in the evening. dextroamphe 2-0 Yes [id number] 20mg Take 1 [facility] tamine-amph 8-16 tablet by ity of etamine 00:00: [facility] [place] [facility] 20 mg morning Branch tablet and 1 tablet in the evening. dextroamphe 2-0 2022- No [id number] 20mg Take 1 [facility] tamine-amph 8-16 09-20 tablet by it y of etamine 00:00: 00:00 mouth [facility] [place] [facility] 20 mg morning Branch tablet and 1 tablet in the evening. dextroamphe 2-0 2022- No [id number] 20mg Take 1 [facility] tamine-amph 8-16 09-20 tablet by it y of etamine 00:00: 00:00 mouth in [place] ([facility]DER[facility]) 00 :00 the Medical 20 mg morning Branch tablet and 1 tablet in the evening. TAKE 1 2021-0 No 20 TABLET BY 7-12 MOUTH TWICE 00:00: DAILY 00 &lt 2-0 No 100 7-12 00:00: 00 benzonatate 2022-0 2022- No [id number] 100mg Take 1 [facility] 100 mg 7-10 08-16 capsule by ity of capsule 00:00: 00:00 mouth 3 [place] 00 :00 (three) Medical times Branch daily as needed for Cough. benzonatate 2022-0 2022- No [id number] 100mg Take 1 [facility] 100 mg 7-10 08-16 capsule by ity of capsule 00:00: 00:00 mouth 3 [place] 00 :00 (three) Medical times Branch daily as needed for Cough. lamoTRIgine 2022-0 Yes 50mg Take 50 mg [facility] 25 mg 6-30 by mouth ity of tablet 00:00: in the [place] [address] morning. Medical Branch lamoTRIgine 2022-0 Yes 50mg Take 50 mg [facility] 25 mg 6-30 by mouth ity of tablet 00:00: in the [place] 00 morning. Medical Branch lamoTRIgine 2022-0 Yes 50mg Take 50 mg [facility] 25 mg 6-30 by mouth ity of tablet 00:00: in the [place] 00 morning. Medical Branch lamoTRIgine 2022-0 Yes 50mg Take 50 mg [facility] 25 mg 6-30 by mouth ity of tablet 00:00: in the [place] 00 morning. Medical Branch lamoTRIgine 2022-0 Yes 50mg Take 50 mg [facility] 25 mg 6-30 by mouth ity of tablet 00:00: in the [place] morning. Medical Branch lamoTRIgine 2022-0 Yes 50mg Take 50 mg [facility] 25 mg 6-30 by mouth ity of tablet 00:00: in the [place] morning. Medical Branch lamoTRIgine 2022-0 Yes 50mg Take 50 mg [facility] 25 mg 6-30 by mouth ity of tablet 00:00: in the [place] morning. Medical Branch lamoTRIgine 2022-0 Yes 50mg Take 50 mg [facility] 25 mg 6-30 by mouth ity of tablet 00:00: in the [place] morning. Medical Branch lamoTRIgine 2022-0 Yes 50mg Take 50 mg [facility] 25 mg 6-30 by mouth ity of tablet 00:00: in the [place] morning. Medical Branch lamoTRIgine 2022-0 Yes 50mg Take 50 mg [facility] 25 mg 6-30 by mouth ity of tablet 00:00: in the [place] 00 morning. Medical Branch lamoTRIgine 2022-0 Yes 50mg Take 50 mg [facility] 25 mg 6-30 by mouth ity of tablet 00:00: in the [place] morning. Medical Branch lamoTRIgine 2022-0 Yes 50mg Take 50 mg [facility] 25 mg 6-30 by mouth ity of tablet 00:00: in the [place] morning. Medical Branch lamoTRIgine 2022-0 Yes 50mg Take 50 mg [facility] 25 mg 6-30 by mouth ity of tablet 00:00: in the [place] morning. Medical Branch lamoTRIgine 2022-0 Yes 50mg Take 50 mg [facility] 25 mg 6-30 by mouth ity of tablet 00:00: in the [place] 00 morning. Medical Branch lamoTRIgine 2022-0 Yes 50mg Take 50 mg [facility] 25 mg 6-30 by mouth ity of tablet 00:00: in the [place] morning. Medical Branch lamoTRIgine 2022-0 Yes 50mg Take 50 mg [facility] 25 mg 6-30 by mouth ity of tablet 00:00: in the [place] 00 morning. Medical Branch lamoTRIgine 2022-0 Yes 50mg Take 50 mg [facility] 25 mg 6-30 by mouth ity of tablet 00:00: in the [place] 00 morning. Medical Branch lamoTRIgine 2022-0 Yes 50mg Take 50 mg [facility] 25 mg 6-30 by mouth ity of tablet 00:00: in the [place] morning. Medical Branch lamoTRIgine 2022-0 Yes 50mg Take 50 mg [facility] 25 mg 6-30 by mouth ity of tablet 00:00: in the [place] morning. Medical Branch lamoTRIgine 2022-0 Yes 50mg Take 50 mg [facility] 25 mg 6-30 by mouth ity of tablet 00:00: in the [place] morning. Medical Branch lamoTRIgine 2022-0 Yes 50mg Take 50 mg [facility] 25 mg 6-30 by mouth ity of tablet 00:00: in the [place] morning. Medical Branch lamoTRIgine 2022-0 Yes 50mg Take 50 mg [facility] 25 mg 6-30 by mouth ity of tablet 00:00: in the [place] morning. Medical Branch lamoTRIgine 2022-0 Yes 50mg Take 50 mg [facility] 25 mg 6-30 by mouth ity of tablet 00:00: in the [place] morning. Medical Branch lamoTRIgine 2022-0 Yes 50mg Take 50 mg [facility] 25 mg 6-30 by mouth ity of tablet 00:00: in the [place] 00 morning. Medical Branch lamoTRIgine 2022-0 Yes 50mg Take 50 mg [facility] 25 mg 6-30 by mouth ity of tablet 00:00: in the [place] morning. Medical Branch lamoTRIgine 2022-0 Yes 50mg Take 2 Univ ers 25 mg 6-30 tablets by ity of tablet 00:00: mouth in [place] the Medical morning. Branch lamoTRIgine 2022-0 Yes 50mg Take 2 Univ ers 25 mg 6-30 tablets by ity of tablet 00:00: mouth in [place] the Medical morning. Branch lamoTRIgine 2022-0 Yes 50mg Take 2 Univ ers 25 mg 6-30 tablets by ity of tablet 00:00: mouth in [place] the Medical morning. Branch lamoTRIgine 2022-0 Yes 50mg Take 2 Univ ers 25 mg 6-30 tablets by ity of tablet 00:00: mouth in [place] 00 the Medical morning. Branch lamoTRIgine 2-0 Yes 50mg Take 2 Univ ers 25 mg 6-30 tablets by ity of tablet 00:00: mouth in [place] 00 the Medical morning. Branch Lamictal 25 2-0 No 2mg mg tablet 6-30 00:00: 00 trazodone 2022-0 No 1mg 50 mg 6-30 tablet 00:00: 00 &lt 2022-0 No 6-30 00:00: 00 &lt 2022-0 No 6-30 00:00: 00 Dose 2022-0 No Unknown 6-30 00:00: 00 TAKE 1 2-0 No TABLET BY 6-30 MOUTH ONCE 00:00: DAILY 00 lamoTRIgine 2-0 2023- No 50mg Take 2 Uni vers 25 mg 6-30 04-17 tablets by ity of tablet 00:00: 00:00 mouth in [place] 00 :00 the Medical morning. Branch lamoTRIgine 2-0 2023- No 50mg Take 2 Uni vers 25 mg 6-30 04-17 tablets by ity of tablet 00:00: 00:00 mouth in [place] 00 :00 the Medical morning. Branch Dose [...] No Unknown 3-14 00:00: 00 Lamictal 25 2022-0 No 2mg mg tablet 2-17 00:00: 00 [...] by ity of e 15:10: mouth 2 [place] (AUGMENTIN) 21 (two) Medical 875-125 mg times Branch per tablet daily. OXcarbazepi 2020-0 Yes 300mg Take 300 U nivers ne 300 mg 9-29 mg by ity of tablet 15:10: mouth at [place] [address] bedtime. Medical Branch amoxicillin 2020-0 Yes 1{tbl} Take 1 Un ninoska -clavulanat 9-29 tablet by ity of e 15:10: mouth 2 [place] (AUGMENTIN) 21 (two) Medical 875-125 mg times Branch per tablet daily. OXcarbazepi 2020-0 Yes 300mg Take 300 U nivers ne 300 mg 9-29 mg by ity of tablet 15:10: mouth at [place] [address] bedtime. Medical Branch Lamictal 25 2020-0 No 1mg mg tablet 9 00:00: 00 trazodone 2020-0 No 1mg 50 mg 9- tablet 00:00: 00 Abilify 30 2020-0 No 1mg mg tablet 9 00:00: 00 oxcarbazepi 2020-0 No 2mg ne 600 mg 9 tablet 00:00: 00 lithium 2020-0 No 3mg carbonate 9 300 mg 00:00: capsule 00 benzonatate 2020-0 Yes [id number] 100mg Take 1 [facility] 100 mg 7-17 capsule by ity of capsule 00:00: mouth 3 [place] 00 (three) Medical times Branch daily as needed for Cough. benzonatate 2020-0 Yes [id number] 100mg Take 1 [facility] 100 mg 7-17 capsule by ity of capsule 00:00: mouth 3 [place] 00 (three) Medical times Branch daily as needed for Cough. benzonatate 2020-0 2021- No [id number] 100mg Take 1 [facility] 100 mg 7-17 09-20 capsule by ity of capsule 00:00: 00:00 mouth 3 [place] 00 :00 (three) Medical times Branch daily as needed for Cough. benzonatate 2020-0 2021- No [id number] 100mg Take 1 [facility] 100 mg 7-17 09-20 capsule by ity of capsule 00:00: 00:00 mouth 3 [place] 00 :00 (three) Medical times Branch daily as needed for Cough. Lamictal 25 0 No 1mg mg tablet 04-27 00:00: 00 hydroxyzine 2020-0 No 1mg HCl 25 mg 04-27 tablet 00:00: 00 Lamictal 25 2020-0 No 1mg mg tablet 03-30 00:00: 00 hydroxyzine 2020-0 No 1mg HCl 25 mg 03-30 tablet 00:00: 00 pantoprazol 2020-0 Yes [id number] 40mg Take 1 [facility] e 40 mg EC 6-09 tablet by ity of tablet 00:00: mouth [place] 00 daily. Medical Branch pantoprazol Yes [id number] 40mg Take 1 [facility] e 40 mg EC 6-09 tablet by ity of tablet 00:00: mouth [place] 00 daily. Medical Branch pantoprazol Yes [id number] 40mg Take 1 [facility] e 40 mg EC 6-09 tablet by ity of tablet 00:00: mouth [place] 00 daily. Medical Branch pantoprazol Yes [id number] 40mg Take 1 [facility] e 40 mg EC 6-09 tablet by ity of tablet 00:00: mouth [place] 00 daily. Medical Branch pantoprazol Yes [id number] 40mg Take 1 [facility] e 40 mg EC 6-09 tablet by ity of tablet 00:00: mouth [place] 00 daily. Medical Branch pantoprazol Yes [id number] 40mg Take 1 [facility] e 40 mg EC 6-09 tablet by ity of tablet 00:00: mouth [place] 00 daily. Medical Branch pantoprazol Yes [id number] 40mg Take 1 [facility] e 40 mg EC 6-09 tablet by ity of tablet 00:00: mouth [place] 00 daily. Medical Branch pantoprazol Yes [id number] 40mg Take 1 [facility] e 40 mg EC 6-09 tablet by ity of tablet 00:00: mouth [place] 00 daily. Medical Branch pantoprazol 2020- Yes [id number] 40mg Take 1 [facility] e 40 mg EC 6-09 tablet by ity of tablet 00:00: mouth [place] 00 daily. Medical Branch pantoprazol Yes [id number] 40mg Take 1 [facility] e 40 mg EC 6-09 tablet by ity of tablet 00:00: mouth [place] 00 daily. Medical Branch pantoprazol Yes [id number] 40mg Take 1 [facility] e 40 mg EC 6-09 tablet by ity of tablet 00:00: mouth [place] 00 daily. Medical Branch pantoprazol Yes [id number] 40mg Take 1 [facility] e 40 mg EC 6-09 tablet by ity of tablet 00:00: mouth [place] 00 daily. Medical Branch pantoprazol Yes [id number] 40mg Take 1 [facility] e 40 mg EC 6-09 tablet by ity of tablet 00:00: mouth [place] 00 daily. Medical Branch pantoprazol Yes [id number] 40mg Take 1 [facility] e 40 mg EC 6-09 tablet by ity of tablet 00:00: mouth [place] 00 daily. Medical Branch pantoprazol Yes [id number] 40mg Take 1 [facility] e 40 mg EC 6-09 tablet by ity of tablet 00:00: mouth [place] 00 daily. Medical Branch pantoprazol Yes [id number] 40mg Take 1 [facility] e 40 mg EC 6-09 tablet by ity of tablet 00:00: mouth [place] 00 daily. Medical Branch pantoprazol Yes [id number] 40mg Take 1 [facility] e 40 mg EC 6-09 tablet by ity of tablet 00:00: mouth [place] 00 daily. Medical Branch pantoprazol Yes [id number] 40mg Take 1 [facility] e 40 mg EC 6-09 tablet by ity of tablet 00:00: mouth [place] 00 daily. Medical Branch pantoprazol Yes [id number] 40mg Take 1 [facility] e 40 mg EC 6-09 tablet by ity of tablet 00:00: mouth [place] 00 daily. Medical Branch pantoprazol Yes [id number] 40mg Take 1 [facility] e 40 mg EC 6-09 tablet by ity of tablet 00:00: mouth [place] 00 daily. Medical Branch pantoprazol Yes [id number] 40mg Take 1 [facility] e 40 mg EC 6-09 tablet by ity of tablet 00:00: mouth [place] 00 daily. Medical Branch pantoprazol Yes [id number] 40mg Take 1 [facility] e 40 mg EC 6-09 tablet by ity of tablet 00:00: mouth [place] 00 daily. Medical Branch pantoprazol Yes [id number] 40mg Take 1 [facility] e 40 mg EC 6-09 tablet by ity of tablet 00:00: mouth [place] 00 daily. Medical Branch pantoprazol Yes [id number] 40mg Take 1 [facility] e 40 mg EC 6-09 tablet by ity of tablet 00:00: mouth [place] 00 daily. Medical Branch pantoprazol Yes [id number] 40mg Take 1 [facility] e 40 mg EC 6-09 tablet by ity of tablet 00:00: mouth [place] 00 daily. Medical Branch pantoprazol Yes [id number] 40mg Take 1 [facility] e 40 mg EC 6-09 tablet by ity of tablet 00:00: mouth [place] 00 daily. Medical Branch pantoprazol Yes [id number] 40mg Take 1 [facility] e 40 mg EC 6-09 tablet by ity of tablet 00:00: mouth [place] 00 daily. Medical Branch pantoprazol Yes [id number] 40mg Take 1 [facility] e 40 mg EC 6-09 tablet by ity of tablet 00:00: mouth [place] 00 daily. Medical Branch pantoprazol Yes [id number] 40mg Take 1 [facility] e 40 mg EC 6-09 tablet by ity of tablet 00:00: mouth [place] 00 daily. Medical Branch pantoprazol Yes [id number] 40mg Take 1 [facility] e 40 mg EC 6-09 tablet by ity of tablet 00:00: mouth [place] 00 daily. Medical Branch pantoprazol 2022- No [id number] 40mg Take 1 [facility] e 40 mg EC 6-09 04-17 tablet by ity of tablet 00:00: 00:00 mouth [place] 00 :00 daily. Medical Branch pantoprazol 2022- No [id number] 40mg Take 1 [facility] e 40 mg EC 6-09 04-17 tablet by ity of tablet 00:00: 00:00 mouth [place] 00 :00 daily. Medical Branch Lamictal 25 0 No 1mg mg tablet 5-14 00:00: 00 hydroxyzine 2020-0 No 1mg HCl 25 mg 5-14 tablet 00:00: 00 Lamictal 25 1-0 No 1mg mg tablet 4-16 00:00: 00 hydroxyzine 1-0 No 1mg HCl 25 mg 4-16 tablet 00:00: 00 metronidazo 2021-0 No 1mg le 500 mg 4-03 tablet 00:00: 00 ciprofloxac 2021-0 No 1mg in 500 mg 4-03 tablet [...] Lamictal 25 2019-1 No 2mg mg tablet 0 00:00: 00 Lamictal 25 2019-0 No 2mg mg tablet 06-07 00:00: 00 hydroxyzine 2020-0 No 12mg HCl 25 mg 8 tablet 00:00: 00 Caladryl 1 2020-0 No 1% %-8 % 05-26 lotion 00:00: 00 Lamictal 25 2019-0 No 1mg mg tablet 05-25 00:00: 00 triamcinolo 2020-0 No 1% ne 05-24 acetonide 00:00: 0.1 % 00 topical cream Flagyl 500 2019-0 No 1mg mg tablet 05-24 00:00: 00 acyclovir 2020-0 No 1mg 400 mg 8 tablet 00:00: 00 acyclovir 2020-0 No 1mg 400 mg 715 tablet 00:00: 00 Latuda 20 2019-0 No 1mg mg tablet 04-26 00:00: 00 Immunizations Ordered Filled Date Status Comments Source Immunization Name Immunization Name SARS-COV-2 COVID-19 2021-01-15 Completed [facility] of [facility] VACCINE 00:00:00 [facility] SARS-COV-2 COVID-19 2021-01-15 Completed Unive rsity of [facility]/J&J VACCINE 00:00:00 [facility] SARS-COV-2 COVID-19 2021-01-15 Completed Unive rsity of [facility]/J&J VACCINE 00:00:00 [facility] SARS-COV-2 COVID-19 2021-01-15 Completed Unive rsity of [facility]/J&J VACCINE 00:00:00 [facility] SARS-COV-2 COVID-19 2021-01-15 Completed Unive rsity of [facility]/J&J VACCINE 00:00:00 [facility] SARS-COV-2 COVID-19 2021-01-15 Completed Unive rsity of [facility]/J&J VACCINE 00:00:00 [facility] SARS-COV-2 COVID-19 2021-01-15 Completed Unive rsity of [facility]/J&J VACCINE 00:00:00 [facility] SARS-COV-2 COVID-19 2021-01-15 Completed Unive rsity of [facility]/J&J VACCINE 00:00:00 [facility] SARS-COV-2 COVID-19 2021-01-15 Completed Unive rsity of [facility]/J&J VACCINE 00:00:00 [facility] SARS-COV-2 COVID-19 2021-01-15 Completed Unive rsity of [facility]/J&J VACCINE 00:00:00 [facility] SARS-COV-2 COVID-19 2021-01-15 Completed Unive rsity of [facility]/J&J VACCINE 00:00:00 [facility] SARS-COV-2 COVID-19 2021-01-15 Completed Unive rsity of [facility]/J&J VACCINE 00:00:00 [facility] SARS-COV-2 COVID-19 2021-01-15 Completed Unive rsity of [facility]/J&J VACCINE 00:00:00 [facility] SARS-COV-2 COVID-19 2021-01-15 Completed Unive rsity of [facility]/J&J VACCINE 00:00:00 [facility] SARS-COV-2 COVID-19 2021-01-15 Completed Unive rsity of [facility]/J&J VACCINE 00:00:00 [facility] SARS-COV-2 COVID-19 2021-01-15 Completed Unive rsity of [facility]/J&J VACCINE 00:00:00 [facility] SARS-COV-2 COVID-19 2021-01-15 Completed Unive rsity of [facility]ISA[facility]/J&J VACCINE 00:00:00 [facility] SARS-COV-2 COVID-19 2021-01-15 Completed Unive rsity of [facility]ISA[facility]/J&J VACCINE 00:00:00 [facility] SARS-COV-2 COVID-19 2021-01-15 Completed Unive rsity of [facility]ISA[facility]/J&J VACCINE 00:00:00 [facility] SARS-COV-2 COVID-19 2021-01-15 Completed Unive rsity of [facility]ISA[facility]/J&J VACCINE 00:00:00 [facility] SARS-COV-2 COVID-19 2021-01-15 Completed Unive rsity of [facility]/J&J VACCINE 00:00:00 [facility] SARS-COV-2 COVID-19 2021-01-15 Completed Unive rsity of [facility]/J&J VACCINE 00:00:00 [facility] SARS-COV-2 COVID-19 2021-01-15 Completed Unive rsity of [facility]/J&J VACCINE 00:00:00 [facility] SARS-COV-2 COVID-19 2021-01-15 Completed Unive rsity of [facility]/J&J VACCINE 00:00:00 [facility] SARS-COV-2 COVID-19 2021-01-15 Completed Unive rsity of [facility]ISA[facility]/J&J VACCINE 00:00:00 [facility] SARS-COV-2 COVID-19 2021-01-15 Completed Unive rsity of LUISANA/J&J VACCINE 00:00:00 [facility] SARS-COV-2 COVID-19 2021-01-15 Completed Unive rsity of [facility]ISA[facility]/J&J VACCINE 00:00:00 [facility] SARS-COV-2 COVID-19 2021-01-15 Completed Unive rsity of [facility]ISA[facility]/J&J VACCINE 00:00:00 [facility] SARS-COV-2 COVID-19 2021-01-15 Completed Unive rsity of [facility]/J&J VACCINE 00:00:00 [facility] SARS-COV-2 COVID-19 2021-01-15 Completed Unive rsity of [facility]/J&J VACCINE 00:00:00 [facility] SARS-COV-2 COVID-19 2021-01-15 Completed Unive rsity of [facility]/J&J VACCINE 00:00:00 [facility] SARS-COV-2 COVID-19 2021-01-15 Completed Unive rsity of [facility]ISA[facility]/J&J VACCINE 00:00:00 [facility] SARS-COV-2 COVID-19 2021-01-15 Completed Unive rsity of [facility]ISA[facility]/J&J VACCINE 00:00:00 [facility] SARS-COV-2 COVID-19 2021-01-15 Completed Unive rsity of [facility]ISA[facility]/J&J VACCINE 00:00:00 [facility] SARS-COV-2 COVID-19 2021-01-15 Completed Unive rsity of [facility]ISANA/J&J VACCINE 00:00:00 [facility] SARS-COV-2 COVID-19 2021-01-15 Completed Unive rsity of [facility]ISANA/J&J VACCINE 00:00:00 [facility] SARS-COV-2 COVID-19 2021-01-15 Completed Unive rsity of [facility]ISANA/J&J VACCINE 00:00:00 [facility] SARS-COV-2 COVID-19 2021-01-15 Completed Unive rsity of [facility]ISANA/J&J VACCINE 00:00:00 [facility] SARS-COV-2 COVID-19 2021-01-15 Completed Unive rsity of LUISANA/J&J VACCINE 00:00:00 [facility] SARS-COV-2 COVID-19 2021-01-15 Completed Unive rsity of [facility]ISA[facility]/J&J VACCINE 00:00:00 [facility] SARS-COV-2 COVID-19 2021-01-15 Completed Unive rsity of [facility]/J&J VACCINE 00:00:00 [facility] SARS-COV-2 COVID-19 2021-01-15 Completed Unive rsity of [facility]/J&J VACCINE 00:00:00 [facility] SARS-COV-2 COVID-19 2021-01-15 Completed Unive rsity of [facility]/J&J VACCINE 00:00:00 [facility] SARS-COV-2 COVID-19 2021-01-15 Completed Unive rsity of [facility]/J&J VACCINE 00:00:00 [facility] SARS-COV-2 COVID-19 2021-01-15 Completed Unive rsity of [facility]ISA[facility]/J&J VACCINE 00:00:00 [facility] SARS-COV-2 COVID-19 2021-01-15 Completed Unive rsity of [facility]/J&J VACCINE 00:00:00 [facility] SARS-COV-2 COVID-19 2021-01-15 Completed Unive rsity of [facility]ISA[facility]/J&J VACCINE 00:00:00 [facility] SARS-COV-2 COVID-19 2021-01-15 Completed Unive rsity of [facility]/J&J VACCINE 00:00:00 [facility] SARS-COV-2 COVID-19 2021-01-15 Completed Unive rsity of [facility]ISA[facility]/J&J VACCINE 00:00:00 [facility] SARS-COV-2 COVID-19 2021-01-15 Completed Unive rsity of [facility]ISA[facility]/J&J VACCINE 00:00:00 [facility] SARS-COV-2 COVID-19 Unknown Completed Unive rsity of [facility]/J&J VACCINE [facility] SARS-COV-2 COVID-19 Unknown Completed Unive rsity of [facility]ISA[facility]/J&J VACCINE [place] [facility] SARS-COV-2 COVID-19 Unknown Completed Unive rsity of LUISANA/J&J VACCINE [place] [facility] SARS-COV-2 COVID-19 Unknown Completed Unive rsity of LUISANA/J&J VACCINE [facility] SARS-COV-2 COVID-19 Unknown Completed Unive rsity of LUISANA/J&J VACCINE [facility] SARS-COV-2 COVID-19 Unknown Completed Unive rsity of LUISANA/J&J VACCINE [place] [facility] SARS-COV-2 COVID-19 Unknown Completed Unive rsity of LUISANA/J&J VACCINE [facility] SARS-COV-2 COVID-19 Unknown Completed Unive rsity of LUISANA/J&J VACCINE [facility] SARS-COV-2 COVID-19 Unknown Completed Unive rsity of [facility]ISA[facility]/J&J VACCINE [facility] SARS-COV-2 COVID-19 Unknown Completed Unive rsity of [facility]/J&J VACCINE [facility] SARS-COV-2 COVID-19 Unknown Completed Unive rsity of [facility]/J&J VACCINE [facility] Vital Signs Vital Name Observation Time Observation Value Comments Source Systolic blood 2023-08-11 18:07:00 121 mm[Hg] Univer sity of pressure [facility] Diastolic blood 2023-08-11 18:07:00 80 mm[Hg] Unive rsity of pressure [facility] Heart rate 2023-08-11 18:07:00 96 /min [facility] ty [facility] Body height 2023-08-11 18:07:00 162.6 cm [facility]i ty [facility] Body weight 2023-08-11 18:07:00 64.411 kg [facility]i ty [facility] BMI 2023-08-11 18:07:00 24.37 kg/m2 [facility]i ty [facility] Heart rate 2023-07-17 01:37:00 102 /min [facility]i ty [facility] Respiratory rate 2023-07-17 01:37:00 17 /min Univ ersity of [facility] Body weight 2023-07-17 01:37:00 65.998 kg Universi ty [facility] BMI 2023-07-17 01:37:00 24.98 kg/m2 [facility] [place] [facility] Oxygen saturation in 2023-07-17 01:37:00 98 /min [facility] of Arterial blood by [place] [facility] Pulse oximetry Branch Systolic blood 2023-07-15 09:08:00 152 mm[Hg] Univer sity of pressure [place] [facility] Diastolic blood 2023-07-15 09:08:00 106 mm[Hg] Unive rsity of pressure [place] [facility] Branch Heart rate 2023-07-15 09:08:00 62 /min [facility] Body temperature 2023-07-15 09:08:00 37.22 Annia [facility] Respiratory rate 2023-07-15 09:08:00 18 /min [facility] Body height 2023-07-15 09:08:00 162.6 cm [facility] Body weight 2023-07-15 09:08:00 67.132 kg [facility] BMI 2023-07-15 09:08:00 25.40 kg/m2 [facility] Oxygen saturation in 2023-07-15 09:08:00 100 /min [facility] Ar[facility] blood by [place] A[facility] amari Pulse oximetry Branch Systolic blood 2023-02-15 22:41:00 109 mm[Hg] [facility] Diastolic blood 2023-02-15 22:41:00 72 mm[Hg] [facility] Heart rate 2023-02-15 22:41:00 87 /min [facility] Body temperature 2023-02-15 22:41:00 36.83 Annia [facility] Respiratory rate 2023-02-15 22:41:00 18 /min [facility] Body height 2023-02-15 22:41:00 162.6 cm [facility] Body weight 2023-02-15 22:41:00 68.947 kg [facility] [place] [facility] BMI 2023-02-15 22:41:00 26.09 kg/m2 [facility] Oxygen saturation in 2023-02-15 22:41:00 96 /min [facility] [place] blood by [place] [facility] amari Pulse oximetry Branch Systolic blood 2023-02-07 14:41:00 124 mm[Hg] [facility] Diastolic blood 2023-02-07 14:41:00 83 mm[Hg] [facility] [place] [facility] Heart rate 2023-02-07 14:41:00 94 /min [facility] [place] [facility] Body temperature 2023-02-07 14:41:00 36.67 Annia [facility] Body height 2023-02-07 14:41:00 162.6 cm [facility] Body weight 2023-02-07 14:41:00 69.718 kg [facility] [place] [facility] BMI 2023-02-07 14:41:00 26.38 kg/m2 [facility] Oxygen saturation in 2023-02-07 14:41:00 98 /min [facility] Arterial blood by [facility] amari Pulse oximetry Branch Systolic blood 2023-02-03 14:53:00 125 mm[Hg] [facility] Diastolic blood 2023-02-03 14:53:00 68 mm[Hg] [facility] Heart rate 2023-02-03 14:53:00 79 /min [facility] Body temperature 2023-02-03 14:53:00 36.33 Annia [facility] Body height 2023-02-03 14:53:00 162.6 cm [facility] Body weight 2023-02-03 14:53:00 68.629 kg [facility] BMI 2023-02-03 14:53:00 25.97 kg/m2 [facility] Oxygen saturation in 2023-02-03 14:53:00 100 /min [facility] [place] [facility] am[facility] Pulse oximetry Branch Systolic blood 2023-01-03 21:59:00 133 mm[Hg] [facility] Diastolic blood 2023-01-03 21:59:00 87 mm[Hg] [facility] [place] [facility] Heart rate 2023-01-03 21:59:00 109 /min [facility] Body temperature 2023-01-03 21:59:00 36.89 Annia [facility] Respiratory rate 2023-01-03 21:59:00 17 /min [facility] Body weight 2023-01-03 21:59:00 70.308 kg [facility] BMI 2023-01-03 21:59:00 26.61 kg/m2 [facility] Oxygen saturation in 2023-01-03 21:59:00 98 /min [facility] blood by [place] [facility] amari Pulse oximetry Branch Systolic blood 2022-12-06 15:29:00 132 mm[Hg] [facility] Diastolic blood 2022-12-06 15:29:00 85 mm[Hg] [facility] Body temperature 2022-12-06 15:29:00 37.11 Annia [facility] Body height 2022-12-06 15:29:00 162.6 cm [facility] Body weight 2022-12-06 15:29:00 68.947 kg [facility] BMI 2022-12-06 15:29:00 26.09 kg/m2 [facility] [place] [facility] Oxygen saturation in 2022-12-06 15:29:00 99 /min [facility] by [place] [facility] amari Pulse oximetry Branch Systolic blood 2022-11-20 21:39:00 106 mm[Hg] [facility] Diastolic blood 2022-11-20 21:39:00 63 mm[Hg] [facility] Heart rate 2022-11-20 21:39:00 118 /min [facility] Body temperature 2022-11-20 21:39:00 36.72 Annia [facility] Body height 2022-11-20 21:39:00 162.6 cm [facility] Body weight 2022-11-20 21:39:00 68.04 kg [facility] BMI 2022-11-20 21:39:00 25.75 kg/m2 [facility] Oxygen saturation in 2022-11-20 21:39:00 99 /min [facility] Arterial blood by [facility] amari Pulse oximetry Branch Systolic blood 2022-09-25 17:10:00 120 mm[Hg] [facility] [place] [facility] Diastolic blood 2022-09-25 17:10:00 80 mm[Hg] Unive rsity of pressure [facility] Heart rate 2022-09-25 17:10:00 92 /min Universi [facility] of [facility] Body height 2022-09-25 17:10:00 162.6 cm Universi [facility] of [facility] Body weight 2022-09-25 17:10:00 64.864 kg [facility] [place] [facility] [place] BMI 2022-09-25 17:10:00 24.55 kg/m2 [facility] of [facility] Systolic blood 2022-08-08 02:23:00 122 mm[Hg] Univer sity of pressure [facility] Diastolic blood 2022-08-08 02:23:00 78 mm[Hg] Unive rsity of [facility] Heart rate 2022-08-08 02:23:00 76 /min Universi [facility] of [facility] Body temperature 2022-08-08 02:23:00 36.67 Annia Univ [facility] Respiratory rate 2022-08-08 02:23:00 19 /min Univ ersity of [facility] Oxygen saturation in 2022-08-08 02:23:00 96 /min [facility] Arterial blood by [facility] Pulse oximetry Branch Body height 2022-08-07 20:26:00 162.6 cm Universi ty of [facility] Body weight 2022-08-07 20:26:00 64.1 kg [facility] [place] BMI 2022-08-07 20:26:00 24.26 kg/m2 Univers[facility] of [facility] Systolic blood 2022-07-09 14:25:00 139 mm[Hg] Univer sity of pressure [facility] Diastolic blood 2022-07-09 14:25:00 94 mm[Hg] Unive rsity of pressure [facility] Heart rate 2022-07-09 14:25:00 88 /min Universi [facility] of [facility] Body height 2022-07-09 14:25:00 162.6 cm Universi ty of [facility] Body weight 2022-07-09 14:25:00 65.318 kg [facility] [place] BMI 2022-07-09 14:25:00 24.72 kg/m2 Universi [facility] of [facility] Systolic blood 2022-06-04 18:16:00 115 mm[Hg] Univer sity of pressure [facility] Diastolic blood 2022-06-04 18:16:00 74 mm[Hg] Unive rsity of pressure [facility] Body height 2022-06-04 18:16:00 162.6 cm [facility] Body weight 2022-06-04 18:16:00 64.864 kg [facility] BMI 2022-06-04 18:16:00 24.55 kg/m2 [facility] BP Systolic 2022-11-12 09:56:00 119 mm[Hg] [...] Procedure Date / Time Performed Performing Clinician [facility] e ASSIGNMENT OF BENEFITS 2023-08-11 18:02:12 Doctor Unassigned, No [facility] NOTICE OF PRIVACY 2023-07-15 09:02:01 Doctor Unassigned, No [facility] CONSENT/REFUSAL FOR 2023-07-15 09:01:33 [facility] Medical [place] TREATMENT POCT SARS-COV-2 2023-02-07 15:13:00 Vivienne Holt o f [place] ANTIGEN (BINAX NOW) Medical Bran ch POCT MOLECULAR FLU 2023-02-07 15:06:00 Unknown, Attending [facility] POCT MOLECULAR STREP 2023-02-07 14:52:00 Unknown, Attending [facility] PATIENT FINANCIAL 2023-01-03 21:48:53 Doctor Unassigned, No [facility] POLICY Name Medical Branch EXTERNAL PROVIDER 2022-12-24 06:01:00 Doctor Unassigned, No [facility] RECORDS Name [facility] CREATINE KINASE 2022-08-07 21:44:00 Jamar [facility] LIPASE 2022-08-07 21:44:00 Jamar [facility] TEST, SERUM 2022-08-07 [facility]07 [facility]EL 2022-08-07 21:44:00 Jamar [facility] ([id number]) [facility] (ALB,T.PRO,BILI T,BU/BC,ALT,AST,ALK PHOS) BASIC METABOLIC PANEL 2022-08-07 21:44:00 Jamar [facility] (NA, K, CL, CO2, Medical Branch GLUCOSE, BUN, CREATININE, CA) SALICYLATE 2022-08-07 21:44:00 [facility] ETHANOL 2022-08-07 21:44:00 Jamar [facility] CBC WITH DIFF 2022-08-07 21:44[facility]00 [facility] Plan of Care Planned Activity Planned Date Details Comments Source Goal Plan of Care Note [code = 26295-4] Goal Plan of Care Note [code = 48201-9] Goal Plan of Care Note [code = 17181-5] Goal Plan of Care Note [code = 33202-9] Goal Plan of Care Note [code = 79873-7] Goal Plan of Care Note [code = 81706-7] Goal Plan of Care Note [code = 70147-0] Goal Plan of Care Note [code = 23185-3] Goal Plan of Care Note [code = 50860-5] Goal Plan of Care Note [code = 67178-6] Goal Plan of Care Note [code = 09681-2] Goal Plan of Care Note [code = 57155-9] Goal Plan of Care Note [code = 46536-5] Goal Plan of Care Note [code = 94346-5] Goal Plan of Care Note [code = 23096-2] Goal Plan of Care Note [code = 69001-9] Goal Plan of Care Note [code = 08792-2] Goal Plan of Care Note [code = 35910-5] Goal Plan of Care Note [code = 79347-0] Goal Plan of Care Note [code = 50844-3] Goal Plan of Care Note [code = 36584-0] Goal Plan of Care Note [code = 09180-0] Goal Plan of Care Note [code = 48089-5] Goal Plan of Care Note [code = 11212-4] Goal Plan of Care Note [code = 18634-2] Goal Plan of Care Note [code = 87025-4] Goal Plan of Care Note [code = 51232-6] Goal Plan of Care Note [code = 06888-8] Goal Plan of Care Note [code = 58617-8] Goal Plan of Care Note [code = 35023-7] Goal Plan of Care Note [code = 79690-3] Goal Plan of Care Note [code = 50608-7] Goal Plan of Care Note [code = 64980-5] Encounters Start End Encounter Admission Attending Care Care Encounter Source Date/Time Date/Time Type Type Clinicians Facility Department ID 2021-08-20 Emergency [facility] [id number] [facility]-11 2023-08-11 Outpatient R RUBY [facility] [id number] Univers 13:00:00 13:23:48 LAURA [facility] 2023-08-11 2023-08-11 Office [facility] 1.2.840.114 [id number] Univers 13:00:00 13:23:48 Visit [facility] 350.1.13.10 it y of [place] 4.2.7.2.686 Jorge Alberto as [place]?BLEA [phone] [address] MEDICAL OFFICE BUILDING 2023-08-11 2023-08-11 Orders Doctor CABELLO 1.2.840.114 [id number] Univers 00:00:00 00:00:00 Only Unassigned, IJEOMA 350.1.13.10 ity of [place] [facility] 4.2.7.2.686 Jorge Alberto as [phone] [address] 2023-08-05 2023-08-05 [facility] 1.2.840.114 [id number] Univers 00:00:00 00:00:00 [facility] 350.1.13.10 it y of [place] [facility] 4.2.7.2.686 Jorge Alberto as [place]A [id number] [facility] [address] [place] MEDICAL OFFICE [facility] 2023-07-26 2023-07-26 [facility] 1.2.840.114 [id number] Univers 00:00:00 00:00:00 [facility] 350.1.13.10 it y of [place] 4.2.7.2.686 Jorge Alberto as [place] [id number] [facility] [address] [place] MEDICAL OFFICE [facility] 2023-07-24 2023-07-24 Outpatient R MAIKEL SIGALA [facility] [id number] Univers 10:45:00 10:45:00 ity of [facility] 2023-07-16 2023-07-16 Urgent Yanet [facility] 1.2.840.114 [id number] Univers 20:20:00 20:40:00 Care Unknown, [facility] 350.1.13.10 ity of [place] 4.2.7.2.686 Jorge Alberto as [place]A [id number] [facility] [address] [place] MEDICAL OFFICE [facility] 2023-07-16 2023-07-16 Outpatient R YANET [facility] [id number] Univers 20:20:00 20:20:00 VIVIENNE [facility] 2023-07-15 2023-07-15 Emergency X [facility] ERT [id number] Univers 04:10:00 04:44:00 MC [facility] 2023-07-15 2023-07-15 Emergency [facility] 1.2.801.385 [id number] Univers 04:10:00 04:44:00 Mc Garza [place] 350.1.13.10 ity of [place].2.[place] [id number] [facility] [address] [place] 2023-07-03 2023-07-03 [facility] 1.2.840.114 [id number] Univers 00:00:00 00:00:00 Laura HEALTH 350.1.13.10 it y of [place] 4.2.7.2.686 Jorge Alberto as [place] [id number] [address] 2023-07-03 2023-07-03 [facility] 1.2.840.114 [id number] Univers 00:00:00 00:00:00 Laura HEALTH 350.1.13.10 it y of [place] 4.2.7.2.686 Jorge Alberto as [place] [id number] [address] 2023-06-16 2023-06-16 [facility] 1.2.840.114 [id number] Univers 00:00:00 00:00:00 Laura [place] 350.1.13.10 i ty of [place].2.[place] [facility] [id number] [address] 2023-06-09 2023-06-09 [facility] 1.2.840.114 [id number] Univers 00:00:00 00:00:00 Laura HEALTH 350.1.13.10 it y of [place] 4.2.7.2.686 Jorge Alberto as [place]A [id number] [address] 2023-06-06 2023-06-06 [facility] 1.2.840.114 [id number] Univers 00:00:00 00:00:00 Laura HEALTH 350.1.13.10 it y of [place] 4.2.7.2.686 Jorge Alberto as [place]A [id number] [address] 2023-06-04 2023-06-04 [facility] [id number] Univers 10:00:00 10:00:00 LAURA castañeday of [facility] 2023-05-23 2023-05-23 [facility] 1.2.840.114 [id number] Univers 16:51:14 23:59:00 Encounter Feroz SEOTON 350.1.13.10 ity of [place] 4.2.7.2.[address] [facility] [id number] [address] 2023-05-23 2023-05-23 Outpatient R [facility] [id number] Univers 16:50:23 16:50:00 FEROZ ity of [facility] 2023-05-23 2023-05-23 [facility] 1.2.840.114 [id number] Univers 16:30:00 16:50:00 Encounter Feroz SEOTON 350.1.13.[address] [facility] 4.2.7.2.686 [facility] [id number] [facility] [address] [place] 2023-05-13 2023-05-13 Patient Doctor [facility] 1.2.840.114 [id number] Univers 00:00:00 00:00:00 Secure Msg Unassigned, HEALTH 350.1.13.10 ity of [place] 4.2.7.2.686 Jorge Alberto as [place]A [id number] Ct dical KNEY [address] [place] MEDICAL OFFICE [facility] 2023-05-10 2023-05-10 [facility] 1.2.840.114 [id number] Univers 00:00:00 00:00:00 Laura HEALTH 350.1.13.10 it y of [place] 4.2.7.2.686 Jorge Alberto as [place]?BLEA [id number] Ct dical KNEY [address] [place] MEDICAL OFFICE BUILDING 2023-05-07 2023-05-07 Patient Doctor [facility] 1.2.840.114 [id number] Univers 00:00:00 00:00:00 Secure Msg Unassigned, [place] 350.1.13.10 ity of [place] [facility] 4.2.7.2.[place] [id number] Ct dical NAL [address] [place] [facility] 2023-05-05 2023-05-05 [facility] 1.2.840.114 [id number] Univers 00:00:00 00:00:00 Laura HEALTH 350.1.13.10 it y of [place] 4.2.7.2.686 Jorge Alberto as [place] [id number] [address] 2023-05-02 2023-05-02 [facility] [id number] Univers 00:00:00 00:00:00 [facility] 2023-04-25 2023-04-25 [facility] [id number] Univers 00:00:00 00:00:00 [facility] 2023-04-08 2023-04-08 [facility] 1.2.840.114 [id number] Univers 00:00:00 00:00:00 [facility] 350.1.13.10 it y of [place] 4.2.7.2.686 Jorge Alberto as [place]A [id number] [address] 2023-04-03 2023-04-03 [facility] 1.2.840.114 [id number] Univers 00:00:00 00:00:00 [facility] HEALTH 350.1.13.10 it y of [place] 4.2.7.2.686 Jorge Alberto as [place]A [id number] [address] 2023-03-10 2023-03-10 [facility] 1.2.840.114 [id number] Univers 00:00:00 00:00:00 Laura HEALTH 350.1.13.10 it y of [place] 4.2.7.2.686 Jorge Alberto as [place]A [id number] [address] 2023-03-08 2023-03-08 [facility] 1.2.840.114 [id number] Univers 00:00:00 00:00:00 Laura HEALTH 350.1.13.10 it y of [place] 4.2.7.2.686 Jorge Alberto as [place]?BLEA [id number] Ct fuentes BECERRA [address] [place] MEDICAL OFFICE [facility] 2023-03-07 2023-03-07 Refill [facility] 1.2.840.114 [id number] Univers 00:00:00 00:00:00 [facility] 350.1.13.10 it y of Edward [place] 4.2.7.2.686 Jorge Alberto as [place]?BLEA [id number] Ct fuentes [address]ECERRA [address] [place] MEDICAL OFFICE [facility] 2023-03-07 2023-03-07 Telephone [facility] 1.2.840.114 [id number] Univers 00:00:00 00:00:00 [facility] 350.1.13.10 it y of [place] 4.2.7.2.686 Jorge Alberto as [place]?BLEA [id number] [facility] J[address] OFFICE [facility] 2023-02-17 2023-02-17 Telephone [facility] 1.2.840.114 [id number] Univers 00:00:00 00:00:00 [facility] 350.1.13.10 it y of [place] 4.2.7.2.686 Jorge Alberto as [place] [phone] [facility] J[address] OFFICE [facility] 2023-02-15 2023-02-15 Outpatient R ONEYDA [facility] [id number] Univers 17:30:00 17:41:47 JERMAINEU ity [facility] 2023-02-15 2023-02-15 Nurse Nurse, [facility] 1.2.840.114 [id number] Univers 17:30:00 17:41:47 Visit Unknown, [facility] HEALTH 350.1.13.10 ity of Yessenia [place] 4.2.7.2.686 [place] HI?BLEA [phone] Ct fuentes [address]ER[address] [facility] OFFICE [facility] 2023-02-15 2023-02-15 Outpatient R UNKNOWN, [facility] [id number] Univers 17:20:00 17:20:00 ATTENDING ity of [facility] 2023-02-07 2023-02-07 Urgent Vivienne Holt [facility] 1.2.840.114 [id number] Univers 09:20:00 09:40:00 Care Unknown, [place] 23114.1.13.10 ity of [place] 4.2.7.2.686 Jorge Alberto as HI?BLEA [id number] [facility] [address] MEDICAL OFFICE [facility] 2023-02-07 2023-02-07 Outpatient R UNKNOWN, ATTENDING [facility] [id number] Univers 09:20:00 09:20:00 VIVIENNE HOLT [facility] 2023-02-03 2023-02-03 [facility] 1.2.840.114 [id number] [facility] 10:15:00 10:30:00 Visit [facility] 350.1.13.10 it y of Edward [place] 4.2.7.2.686 Jorge Alberto as [place]?BLEA [id number] [address] MEDICAL OFFICE [facility] 2023-02-03 2023-02-03 Outpatient R RUBY [facility] [id number] Univers 10:15:00 10:15:00 [facility] 2023-01-23 2023-01-23 Outpatient R RUBY [facility] [id number] Univers 10:00:00 10:00:00 [facility] 2023-01-06 2023-01-06 [facility] 1.2.840.114 [id number] Univers 00:00:00 00:00:00 [facility] 350.1.13.10 it y of Edward [place] 4.2.7.2.686 Jorge Alberto as HI?BLEA [id number] [facility] [address] [facility] OFFICE [facility] 2023-01-04 2023-01-04 Telephone Provider, [facility] 1.2.840.114 [id number] Univers 00:00:00 00:00:00 [facility] HEALTH 350.1.13.10 it y of Urgent Care [place] 4.2.7.2.686 [place] HI?BLEA [id number] [facility] [address] MEDICAL OFFICE [facility] 2023-01-03 2023-01-03 Outpatient R NARESH [facility] [id number] Univers 16:40:00 17:14:19 FLOR ity of [facility] 2023-01-03 2023-01-03 Urgent Flor Infante [facility] 1.2.840.114 [id number] Univers 16:40:00 17:14:19 Care Unknown, [facility] HEALTH 350.1.13.10 ity of [place] 4.2.7.2.686 Jorge Alberto as [place] [id number] [address] MEDICAL OFFICE [facility] 2023-01-03 2023-01-03 Orders Doctor DESTINEY 1.2.840.114 [id number] Univers 00:00:00 00:00:00 Only Unassigned, IJEOMA 350.1.13.10 ity of [place] [facility] 4.2.7.2.686 Jorge Alberto as [id number] [address] 2023-01-03 2023-01-03 Letter [facility] 1.2.840.114 [id number] Univers 00:00:00 00:00:00 (Out) Flor HEALTH 350.1.13.10 it y of [place] 4.2.7.2.686 Jorge Alberto as [place]A [id number] [address] OFFICE [facility] 2023-01-02 2023-01-02 [facility]ambika [facility] 1.2.840.114 [id number] Univers 00:00:00 00:00:00 Laura HEALTH 350.1.13.10 it y of Edward [place] 4.2.7.2.686 Jorge Alberto as [place] [id number] [address] OFFICE [facility] 2022-12-28 2022-12-28 Refambika [facility] 1.2.840.114 [id number] Univers 00:00:00 00:00:00 Trena A HEALTH 350.1.13.10 i [facility] 4.2.7.2.686 Jorge Alberto as [place] [id number] [address] OFFICE [facility] 2022-12-26 2022-12-26 Outpatient [facility] [id number] Wall 00:00:00 00:00:00 [facility] [employer] 2022-12-24 2022-12-24 Orders Doctor DESTINEY 1.2.840.114 [id number] Univers 00:00:00 00:00:00 Only Unassigned, IJEOMA 350.1.13.10 ity of [place] [facility] 4.2.7.2.686 Jorge Alberto as [id number] [address] 2022-12-06 2022-12-06 Out[facility] [id number] Univers 09:30:00 09:56:07 TRENA bates [facility] 2022-12-06 2022-12-06 Office [facility] 1.2.840.114 [id number] Univers 09:30:00 09:56:07 Visit Trena Oh [facility] 350.1.13.10 i ty of [place] 4.2.7.2.686 Jorge Alberto as [place]A [id number] [address] OFFICE [facility] 2022-12-06 2022-12-06 Outpatient [facility] [id number] Univers 07:00:00 07:00:00 TRENA bates [facility] 2022-12-05 2022-12-05 Ming [facility] 1.2.840.114 [id number] Univers 00:00:00 00:00:00 [facility] 350.1.13.10 it y of Edward [place] 4.2.7.2.686 Jorge Alberto as [place]?BLEA [id number] [address] MEDICAL OFFICE [facility] 2022-11-20 2022-11-20 Outpatient [facility] [id number] Univers 15:30:00 16:22:49 VAUGHN bates [facility] 2022-11-20 2022-11-20 Office [facility] 1.2.840.114 [id number] Univers 15:30:00 16:22:49 Visit Vaughn [facility] [id number] it y [facility] [id number] Jorge Alberto as [place]?BLEA [id number] [address] OFFICE [facility] 2022-11-19 2022-11-19 Outpatient R ANGES [facility] [id number] Univers 09:30:00 09:30:00 ARNEL bates [facility] 2022-11-14 2022-11-14 Outpatient CLIFTON LAZO [id number] Ignacio 11:59:29 11:59:29 [id number] F Yan 2022-11-13 2022-11-13 Telephone [facility] [id number] [facility] 00:00:00 00:00:00 [facility] 350.1.13.10 it y of [place] 4.2.7.2.686 Jorge Alberto as HI?BLEA [phone] Ct [address] OFFICE [facility] 2022-11-12 2022-11-12 Outpatient CLIFTON LAZO [id number] 023 Ignacio 09:48:10 09:48:10 0124 F Yan 2022-11-12 2022-11-12 Outpatient [id number] [id number] 00:00:00 00:00:00 Visit [id number] 2022-11-11 2022-11-11 Outpatient R RUBY [facility] [id number] Univers 09:15:00 09:15:00 LAURA bates [facility] 2022-10-30 2022-10-30 [facility] 1.2.840.114 [id number] Univers 00:00:00 00:00:00 [facility] 350.1.13.10 it y of [place] 4.2.7.2.686 Jorge Alberto as HI?BLEA [phone] Ct [address] OFFICE [facility] 2022-10-10 2022-10-10 Telephone [facility] 1.2.840.114 [id number] [facility] 00:00:00 00:00:00 [facility] HEALTH 350.1.13.10 it y of [place] 4.2.7.2.686 Jorge Alberto as HI?BLEA [phone] Ct [address] OFFICE [facility] 2022-10-07 2022-10-07 Telephone [facility] 1.2.840.114 [id number] [facility] 00:00:00 00:00:00 [facility] 350.1.13.10 it y of [place] 4.2.7.2.686 Jorge Alberto as HI?BLEA [id number] [address] OFFICE [facility] 2022-09-25 2022-09-25 [facility] [id number] Univers 11:00:00 11:20:08 LAURA ity of [facility] 2022-09-25 2022-09-25 Office [facility] 1.2.840.114 [id number] [facility] 11:00:00 11:20:08 Visit [facility] 350.1.13.10 it y of [place] 4.2.7.2.686 Jorge Alberto as HI?BLEA [phone] [address] OFFICE [facility] 2022-09-03 2022-09-03 Refill [facility] 1.2.840.114 [id number] Univers 00:00:00 00:00:00 [facility] 350.1.13.10 it y of [place] 4.2.7.2.686 Jorge Alberto as HI?BLEA [phone] [address] OFFICE [facility] 2022-08-09 2022-08-09 Telephone [facility] 1.2.840.114 [id number] Univers 00:00:00 00:00:00 [facility] 350.1.13.10 it y of [place] 4.2.7.2.686 Jorge Alberto as HI?BLEA [phone] [address] OFFICE [facility] 2022-08-08 2022-08-08 Telephone [facility] 1.2.840.114 [id number] Univers 00:00:00 00:00:00 [facility] HEALTH 350.1.13.10 it y of [place] 4.2.7.2.686 Jorge Alberto as HI?BLEA [id number] [address] OFFICE [facility] 2022-08-07 2022-08-07 Emergency X [facility] ERT [id number] Univers 15:19:00 21:35:00 MILA [facility] 2022-08-07 2022-08-07 Emergency [facility] 1.2.900.446 [id number] Univers 15:19:00 21:35:00 [facility] 350.1.13.10 it y of [place] 4.2.7.2.686 [place] [phone] [address] ([facility]) 2022-07-10 2022-07-10 Telephone [facility] 1.2.840.114 [id number] Univers 00:00:00 00:00:00 [facility] HEALTH 350.1.13.10 it y of [place] 4.2.7.2.686 Jorge Alberto as HI?BLEA [id number] [address] MEDICAL OFFICE [facility] 2022-07-09 2022-07-09 Outpatient [facility] [id number] Univers 09:15:00 09:44:28 [facility] 2022-07-09 2022-07-09 Office [facility] 1.2.840.114 [id number] Univers 09:15:00 09:30:00 Visit [facility] 350.1.13.10 it y of [place] 4.2.7.2.686 Jorge Alberto as HI?BLEA [phone] [address] MEDICAL OFFICE [facility] 2022-07-09 2022-07-09 Telephone [facility] 1.2.840.114 [id number] Univers 00:00:00 00:00:00 [facility] 350.1.13.10 it y of [place] 4.2.7.2.686 Jorge Alberto as HI?BLEA [phone] [address] MEDICAL OFFICE BUILDING 2022-06-04 2022-06-04 [facility] [id number] Univers 13:15:00 13:32:49 [facility] 2022-06-04 2022-06-04 Office [facility] 1.2.840.114 [id number] Univers 13:15:00 13:30:00 Visit [facility] 350.1.13.10 it y of [place] 4.2.7.2.686 Jorge Alberto as HI?BLEA [phone] [address] MEDICAL OFFICE BUILDING 2022-06-04 2022-06-04 Outpatient R RUBY [facility] [id number] Univers 13:15:00 13:15:00 LAURA yvonne [facility] 2022-04-28 2022-04-28 Emergency X [facility] ERT [id number] Univers 11:37:00 12:24:00 MUNDO yvonne [facility] 2022-04-28 2022-04-28 Emergency [facility] 1.2.840.114 [id number] Univers 11:37:00 12:24:00 Mundo BARLOW 350.1.13.10 i ty of [place].2.7.2.686 [place] [phone] [facility] [address] 2022-04-28 2022-04-28 Letter Lora Gould 1.2.840.114 [id number] Univers 00:00:00 00:00:00 (Out) IJEOMA 350.1.13.10 it y of HOSPITAL 4.2.7.2.686 Jorge Alberto as [id number] [facility] [address] 2021-07-18 2021-07-18 Office [facility] 1.2.840.114 [id number] Univers 14:56:51 15:32:09 Visit [facility] 350.1.13.10 it y of [place] 4.2.7.2.686 Jorge Alberto as Hi?Blea [phone] [address] Medical Office [facility] 2021-07-18 2021-07-18 Outpatient R RUBY [facility] [id number] Univers 15:00:00 15:00:00 LAURA bates [facility] 2021-05-30 2021-05-30 Orders Doctor CABELLO 1.2.840.114 [id number] Univers 00:00:00 00:00:00 Only Unassigned, IJEOMA 350.1.13.10 ity of [place] [facility] 4.2.7.2.686 Jorge Alberto as [id number] [facility] [address] 2021-05-25 2021-05-25 Telephone [facility] 1.2.840.114 [id number] Univers 00:00:00 00:00:00 [facility] 350.1.13.10 it y of [place] 4.2.7.2.686 Jorge Alberto as Professio [phone] [facility] [address] Office [facility] One 2021-05-25 2021-05-25 [facility] 1.2.840.114 [id number] 00:00:00 00:00:00 [facility] 350.1.13.10 [place] 4.2.7.2.686 Professio [phone] [place] [address] Office [facility] One 2021-05-21 2021-05-21 [facility] 1.2.840.114 [id number] Univers 00:00:00 00:00:00 [facility] 350.1.13.10 it y of [place] 4.2.7.2.686 Jorge Alberto as Professio [id number] Ct dic[address] Office [facility] One 2021-05-21 2021-05-21 [facility] 1.2.840.114 [id number] 00:00:00 00:00:00 [facility] 350.1.13.10 [place] 4.2.7.2.686 Professio [id number] [place] [address] Office [facility] One 2021-05-05 2021-05-05 [facility] 1.2.388.255 [id number] [facility] 11:42:00 13:42:00 Marc [place] 350.1.13.10 i ty of [place]2.[place].2.[place] [phone] [facility] [address] 2021-05-05 2021-05-05 [facility] 1.2.018.619 [id number] 11:42:00 13:42:00 Marc [place] 350.1.13.10 [place] 4.2.7.2.686 [place] [phone] [facility] 2021-05-04 2021-05-04 Telephone [facility] 1.2.861.394 [id number] Univers 00:00:00 00:00:00 Nayla Larios [facility] 350.1.13.10 ity of [place] 4.2.7.2.686 Jorge Alberto as Professio [phone] [address] Office [facility] One 2021-05-04 2021-05-04 Telephone [facility] 1.2.325.030 [id number] 00:00:00 00:00:00 Nayla Larios [facility] 350.1.13.10 [place] 4.2.7.2.686 Professio [phone] [place] [address] Office [facility] One 2021-05-03 2021-05-03 Urgent [facility] 1.2.840.114 [id number] [facility] 17:09:02 17:56:38 [facility] 350.1.13.10 ity of [place] 4.2.7.2.686 Jorge Alberto as Professio [phone] [address] Office [facility] One 2021-05-03 2021-05-03 Urgent [facility] 1.2.840.114 [id number] 17:09:02 17:56:38 [facility] 350.1.13.10 [place] 4.2.7.2.686 Professio [phone] [place] [address] Office [facility] One 2021-05-03 2021-05-03 Outpatient R [facility] [id number] Univers 17:20:00 17:20:00 ity of [facility] 2021-04-25 2021-04-25 Office [facility] 1.2.840.114 [id number] 10:32:12 10:47:12 Visit [facility] 350.1.13.10 [place] 4.2.7.2.686 Professio [phone] [place] [address] Office Building One 2021-04-25 2021-04-25 Office [facility] 1.2.840.114 [id number] Univers 10:32:12 10:47:12 Visit [facility] 350.1.13.10 it y of [place] 4.2.7.2.686 Jorge Alberto as Professio [phone] Ct dical [address] One 2021-04-25 2021-04-25 Outpatient Casey BELTRAN [facility] [id number] Univers 10:30:00 10:30:00 LAURA bates [facility] 2021-04-25 2021-04-25 Orders Doctor DESTINEY 1.2.840.114 [id number] 00:00:00 00:00:00 Only Unassigned, IJEOMA 350.1.13.10 [place] [facility] 4.2.7.2.686 [id number] 009 2021-04-25 2021-04-25 Orders Doctor DESTINEY 1.2.840.114 [id number] Univers 00:00:00 00:00:00 Only Unassigned, IJEOMA 350.1.13.10 ity of [place] [facility] 4.2.7.2.686 Jorge Alberto as [phone] [address] 2021-04-19 2021-04-19 Orders Doctor DESTINEY 1.2.840.114 [id number] Univers 00:00:00 00:00:00 Only Unassigned, IJEOMA 350.1.13.10 ity of [place] [facility] 4.2.7.2.686 Jorge Alberto as [phone] [address] 2021-04-11 2021-04-11 Outpatient Casey HALEY [facility] [id number] Univers 15:30:00 15:30:00 JORDAN bates [facility] 2021-03-28 2021-03-28 [facility] 1.2.840.114 [id number] Univers 09:16:27 09:46:27 Visit [facility] 350.1.13.10 it y of [place] 4.2.7.2.686 Jorge Alberto as Professio [phone] [address] One 2021-03-28 2021-03-28 Outpatient R RUBY [facility] [id number] Univers 09:30:00 09:30:00 LAURA bates [facility] 2021-02-20 2021-02-20 Patient Doctor [facility] 1.2.840.114 [id number] Univers 00:00:00 00:00:00 Secure Msg Unassigned, PRIMARY 350.1.13.10 ity of [place]2.7.2.[place] [id number] Ct dical [address] 2020-11-25 2020-11-26 Emergency [facility] 1.2.840.114 [id number] Univers 22:09:00 00:35:00 Jhoana [place] 350.1.13.10 ity of [place] [phone] [facility] [address] 2020-11-25 2020-11-26 Emergency [facility] [id number] Univers 22:09:00 00:35:00 JHOANA ity [facility] 2020-10-17 2020-10-17 Plug Cutter Marly, Adc Lab Main [facility] 1.2.8 40.114 [id number] Univers 11:03:50 11:18:50 Visit Cristal Cochran 350.1. 13.10 ity of [place] 4.2.7.2.[place] [phone] Ct dical nal 353 [facility] 2020-10-17 2020-10-17 Outpatient R URSZULA [facility] [id number] Univers 11:00:00 11:00:00 CRISTAL bates [facility] 2020-10-17 2020-10-17 Orders Doctor CABELLO 1.2.840.114 [id number] Univers 00:00:00 00:00:00 Only Unassigned, IJEOMA 350.1.13.10 ity of [place] [facility] 4.2.7.2.686 Jorge Alberto as [phone] [facility] [address] 2020-10-05 2020-10-05 Emergency X ARIC [facility] ERT [id number] Univers 09:47:00 15:13:00 KELSI bates [facility] 2020-10-05 2020-10-05 Emergency [facility] 1.2.840.114 [id number] Univers 09:47:00 15:13:00 Kelsi [place] 350.1.13.10 ity of [place] 4.2.7.2.686 [facility] [phone] [place] 291384 Branch Results Test Description Test Time Test Comments Results Result Comments Source POCT SARS-COV-2 ANTIGEN (BINAX NOW) 2023-02-07 15:14:00 Test Item Value Reference Range Interpretation Comme nts POCT SARS-COV-2 ANTIGEN (test code Not Detected Not Detected = 42391-2) On board controls acceptable with Yes C Line (test code = 3574) GALLO (test code = GALLO) accurate development and interpretation of all internal controls Lab Interpretation (test code = Normal 69827-1) [facility] MOLECULAR [id number] 15:10:42 Test Item Value Reference Range Interpretation Comments POCT Molecular FluA (test code = Positive Negative A 34093-9) Lab Interpretation (test code = Abnormal 19550-9) [facility] MOLECULAR [id number] 14:59:48 Test Item Value Reference Range Interpretation Comments POCT Molecular Strep (test code = Negative Negative 39656-1) Lab Interpretation (test code = Normal 98425-5) [facility], [id number] 22:34:41 Test Item Value Reference Range Interpretation Comments PREG SERUM (test code Negative = 8890779831) GALLO (test code = GALLO) Less than 10 IU/L. ?If low titer or ectopic is suspected, resubmit specimen in 48-[address] [facility] [id number] 22:33:51 Test Item Value Reference Interpretation Comments Range TROPONIN I (test 0.002 ng/mL See_Comment [Automated code = 4184903384) message] The system which generated this result [...] biotin. Lab Interpretation Normal (test code = 42831-7) [facility]AL[facility]ATE2022-10-19 22:27:20 SALICYLATE<10mg/L1 5:27 PM [facility]ITALTherapeutic Range: ? Analgesic and Antipyretic Use ? 20-100 mg/L ? ? Anti-Inflammatory Use ? 100-250 mg/L Toxic Range: ? Greater than 300 mg/LUnHCA [facility] [id number] 22:27:15ALCOHOL<10mg/dL08/07/2022 5:27 PM [facility] LABORATORY SERVICESSAN [facility] CENTERToxic Greater thanor equal to 80 mg/dL. NOTE: Whole blood values are approximately 10% to 15% lower than serum and plas ma.[facility] CenterACETAMINOPHEN2022-10-19 22:27:10 Test Item Value Reference Range Interpretation Comments ACETAMINOP (test code = 10-30 L 1042645373) GALLO (test code = GALLO) Toxic: Greater than 200 ug/mL @ 4 hour post ingestion or greater than 50 ug/mL @ 12 hour post ingestion Lab Interpretation (test Abnormal code = 29133-7) [facility]IC PANEL (NA, K, CL, CO2, GLUCOSE, BUN, CREATININE, CA)2022-08-07 22:23:27 Test Item Value Reference Range Interpretation Comments NA (test code = 138 mmol/L 135-145 8690701450) K (test code = 3.9 mmol/L 3.5-5 2431561265) CL (test code = 102 mmol/L 98-108 0160794311) CO2 TOTAL (test code 27 mmol/L 23-31 = 3909137400) AGAP (test code = 2-16 2383959638) BUN (test code = 16 mg/dL 7-23 2247171619) GLUCOSE (test code = 87 mg/dL 70-110 2451226018) CREATININE (test code 0.69 mg/dL 0.5-1.04 = 1146953166) CALCIUM (test code = 9.7 mg/dL 8.6-10.6 5537598551) eGFR (test code = mL/min/1.73m2 3252493388) GALLO (test code = GALLO) Association of [...] or urine or abnormalities in imaging tests). [facility] CenterCREATINE [id number] 22:23:27 Test Item Value Reference Range Interpretation Comments CK (test code = 7125335484) 45 U/L 33-194 Lab Interpretation (test code = Normal 60324-1) [facility] CenterHEPATIC FUNCTION PANEL (39952) (ALB,T.PRO,BILI T,BU/BC,ALT,AST,ALK PHOS)2022-08-07 22:23:27 Test Item Value Reference Range Interpretation Comments TOTAL BILI (test code = 4272606953) 0.7 mg/dL 0.1-1.1 BILI UNCON (test code = 0604891469) 0.3 mg/dL 0.1-1.1 BILI CONJ (test code = 1755941981) 0.0 mg/dL 0-0.3 T PROTEIN (test code = 1133300411) 7.4 g/dL 6.3-8.2 ALBUMIN (test code = 4803691777) 4.4 g/dL 3.5-5 ALK PHOS (test code = 8639676351) 80 U/L 34-122 ALTv (test code = 1742-6) 15 U/L 5-35 AST(SGOT) (test code = 1443498217) 15 U/L 13-40 Lab Interpretation (test code = Normal 73500-3) [facility] CenterLIPASE2022-10-19 22:23:27 Test Item Value Reference Range Interpretation Comments LIPASE (test code = 2382904255) 51 U/L 0-220 Lab Interpretation (test code = Normal 58637-5) [facility] WITH [id number] 22:06:06 Test Item Value Reference Range Interpretation [...] RDW-SD (test code = 40.6 fL 39-49.9 64998-7) RDW-CV (test code = 13.1 % 12-15.5 788-0) PLT (test code = See_Comment H [Automated 777-3) message] The sy stem which generated this result transmitted reference range : 166 - 358 10*3/ ?L. The reference r deb was not used to interpret this result as normal/abnormal . MPV (test code = 10.1 fL 9.5-12.9 23288-7) NRBC/100 WBC (test See_Comment [Automat ed code = 4784185048) message] The system which generated this result transmitted reference range : 0.0 - 10.0 /100 WBCs. The refer ence range was not u sed to interpret th is result as normal/abnormal . NRBC x10^3 (test code See_Comment [Auto mated = 0603720038) message] The s ystem which generated this result transmitted reference range : 10*3/?L. The reference range was not used to interpret this result as normal/abnormal . GRAN MAT (NEUT) % 62.7 % (test code = 770-8) IMM GRAN % (test code 0.40 % = 6654896213) LYMPH % (test code = 25.7 % 736-9) MONO % (test code = 7.8 % 5905-5) EOS % (test code = 2.8 % 713-8) BASO % (test code = 0.6 % 706-2) GRAN MAT x10^3(ANC) 8.40 10*3/uL 1.88-7.09 H (test code = 2397677410) IMM GRAN x10^3 (test 0.06 10*3/uL 0-0.06 code = 2267510043) LYMPH x10^3 (test code 3.44 10*3/uL 1.32-3.29 H = 731-0) MONO x10^3 (test code 1.04 10*3/uL 0.33-0.92 H = 742-7) EOS x10^3 (test code = 0.38 10*3/uL 0.03-0.39 711-2) BASO x10^3 (test code 0.08 10*3/uL 0.01-0.07 H = 704-7) Lab Interpretation Abnormal (test code = 01598-4) [facility]ARS[facility]CoV-[facility] (COVID-19) by RT-PCR (HIGH RISK) 2021-06-29 00:00:00 Test Item Value Reference Range Interpretation Comments SARS-CoV-2 INTERPRETATION (test NEGATIVE code = 94956) SOURCE (test code = 15992) NOT SPECIFIED SARS-CoV-2 (COVID-19) by RT-PCR (HIGH RISK)2021-06-29 00:00:00 Test Item Value Reference Range Interpretation Comments SARS-CoV-2 INTERPRETATION (test NEGATIVE code = 73417) SOURCE (test code = 07648) NOT SPECIFIED COMPREHENSIVE METABOLIC [id number] 00:00:00 Test Item Value Reference Range Interpretation Comments GLUCOSE (test code = 2217) 92 MG/DL BUN (test code = 2208) 11 MG/DL CREATININE (test code = 2214) 0.80 MG/DL eGFR AMER. (test code 108 ML/MIN/1.73 = 15066) eGFR NON- AMER. (test 94 ML/MIN/1.73 code = 23435) CALC BUN/CREAT (test code = 14 RATIO [...] code = 2219) 11 U/L COMPREHENSIVE METABOLIC [id number] 00:00:00 Test Item Value Reference Range Interpretation Comments GLUCOSE (test code = 2217) 92 MG/DL BUN (test code = 2208) 11 MG/DL CREATININE (test code = 2214) 0.80 MG/DL eGFR AMER. (test code 108 ML/MIN/1.73 = 50185) eGFR NON- AMER. (test 94 ML/MIN/1.73 code = 99551) CALC BUN/CREAT (test code = 14 RATIO 2234) SODIUM (test code = 2231) 142 MEQ/L [...] 2218) 13 U/L ALT (test code = 221) 11 U/L [id number] 00:00:00 Test Item Value Reference Range Interpretation Comments AMYLASE (test code = 2205) 52 U/L [id number] 00:00:00 Test Item Value Reference Range Interpretation Comments AMYLASE (test code = 2205) 52 U/L [id number] 00:00:00 Test Item Value Reference Range Interpretation Comments LIPASE (test code = 2057) 20 U/L [id number] 00:00:00 Test Item Value Reference Range Interpretation Comments LIPASE (test code = 2057) 20 U/L [id number] 00:00:00 Test Item Value Reference Range Interpretation Comments LIPASE (test code = 2057) 20 U/L CULTURE, URINE [ADDED]2021-01-20 00:00:00 Test Item Value Reference Range Interpretation Comments CULTURE, URINE (test SPECIMEN NUMBER: code = 90763) [id number] CULTURE, URINE [ADDED]2021-01-20 00:00:00 Test Item Value Reference Range Interpretation Comments CULTURE, URINE (test SPECIMEN NUMBER: code = 46834) [id number] GC, AMPLIFIED, [id number] 00:00:00 Test Item Value Reference Range Interpretation Comments GONORRHEA, NAAT (test code = 71521) NEGATIVE GC, AMPLIFIED, [id number] 00:00:00 Test Item Value Reference Range Interpretation Comments GONORRHEA, NAAT (test code = 28042) NEGATIVE [id number] 00:00:00 Test Item Value Reference Range Interpretation Comments RPR RESULT (test code = NON-REACTIVE 3501) RPR TITER (test code = 3500) NOT INDIC. TITER [id number] 00:00:00 Test Item Value Reference Range Interpretation Comments RPR RESULT (test code = NON-REACTIVE 3501) RPR TITER (test code = 3500) NOT INDIC. TITER [id number] 00:00:00 Test Item Value Reference Range Interpretation Comments RPR RESULT (test code = NON-REACTIVE 3501) RPR TITER (test code = 3500) NOT INDIC. TITER VAGINAL PATHOGENS DNA [id number] 00:00:00 Test Item Value Reference Range Interpretation Comments CONRAD SPECIES (test code = ) NEGATIVE G. VAGINALIS (test code = 18001) POSITIVE T. VAGINALIS (test code = 87842) NEGATIVE VAGINAL PATHOGENS DNA [id number] 00:00:00 Test Item Value Reference Range Interpretation Comments CONRAD SPECIES (test code = 40250) NEGATIVE G. VAGINALIS (test code = 34129) POSITIVE T. VAGINALIS (test code = 14429) NEGATIVE HIV AB/AG COMBO RFLX [id number] 00:00:00 Test Item Value Reference Range Interpretation Comments HIV 1/2 4TH GEN, RFLX CONF (test NON-REACTIVE code = 3514) HIV AB/AG COMBO RFLX [id number] 00:00:00 Test Item Value Reference Range Interpretation Comments HIV 1/2 4TH GEN, RFLX CONF (test NON-REACTIVE code = 3514) ACUTE HEPATITIS [id number] 00:00:00 Test Item Value Reference Range Interpretation Comments HEPATITIS A IgM (test code = NON-REACTIVE 10520) HEPATITIS B CORE IgM (test code NON-REACTIVE = 4644) HEPATITIS B SURF AG (test code = NON-REACTIVE 2739) HEPATITIS C ANTIBODY (test code NON-REACTIVE = 5575) INTERPRETATION HEPATITIS A: (NOTE) (test code = 2552) INTERPRETATION HEPATITIS B: (NOTE) (test code = 49800) INTERPRETATION HEPATITIS C: (NOTE) (test code = 60407) ACUTE HEPATITIS [id number] 00:00:00 Test Item Value Reference Range Interpretation Comments HEPATITIS A IgM (test code = NON-REACTIVE 59690) HEPATITIS B CORE IgM (test code NON-REACTIVE = 4644) HEPATITIS B SURF AG (test code = NON-REACTIVE 2739) HEPATITIS C ANTIBODY (test code NON-REACTIVE = 4675) INTERPRETATION HEPATITIS A: (NOTE) (test code = 2552) INTERPRETATION HEPATITIS B: (NOTE) (test code = 26384) INTERPRETATION HEPATITIS C: (NOTE) (test code = 25470) CHLAMYDIA, AMPLIFIED, [id number] 00:00:00 Test Item Value Reference Range Interpretation Comments CHLAMYDIA, NAAT (test code = 03066) NEGATIVE CHLAMYDIA, AMPLIFIED, [id number] 00:00:00 Test Item Value Reference Range Interpretation Comments CHLAMYDIA, NAAT (test code = 06105) NEGATIVE CULTURE, [id number] 00:00:00 Test Item Value Reference Range Interpretation Comments CULTURE, URINE (test SPECIMEN NUMBER: code = 26577) [id number] CULTURE, [id number] 00:00:00 Test Item Value Reference Range Interpretation Comments CULTURE, URINE (test SPECIMEN NUMBER: code = 07573) [id number] CULTURE, [id number] 00:00:00 Test Item Value Reference Range Interpretation Comments CULTURE, URINE (test SPECIMEN NUMBER: code = 31862) [id number] CULTURE, [id number] 00:00:00 Test Item Value Reference Range Interpretation Comments CULTURE, URINE (test SPECIMEN NUMBER: code = 53732) [id number] SARS-CoV-2 (COVID-19) by RT-PCR (HIGH RISK)2020-11-03 00:00:00 Test Item Value Reference Range Interpretation Comments SARS-CoV-2 INTERPRETATION (test NEGATIVE code = 81470) SOURCE (test code = 81072) NOT SPECIFIED SARS-CoV-2 (COVID-19) by RT-PCR (HIGH RISK)2020-11-03 00:00:00 Test Item Value Reference Range Interpretation Comments SARS-CoV-2 INTERPRETATION (test NEGATIVE code = 20121) SOURCE (test code = 67251) NOT SPECIFIED CHLAMYDIA, AMPLIFIED, [id number] 00:00:00 Test Item Value Reference Range Interpretation Comments CHLAMYDIA, NAAT (test code = 58589) NEGATIVE CHLAMYDIA, AMPLIFIED, [id number] 00:00:00 Test Item Value Reference Range Interpretation Comments CHLAMYDIA, NAAT (test code = 90693) NEGATIVE GC, AMPLIFIED, [id number] 00:00:00 Test Item Value Reference Range Interpretation Comments GONORRHEA, NAAT (test code = 15519) NEGATIVE GC, AMPLIFIED, [id number] 00:00:00 Test Item Value Reference Range Interpretation Comments GONORRHEA, NAAT (test code = 78903) NEGATIVE VAGINAL PATHOGENS DNA [id number] 00:00:00 Test Item Value Reference Range Interpretation Comments CONRAD SPECIES (test code = 07929) NEGATIVE G. VAGINALIS (test code = 44527) POSITIVE T. VAGINALIS (test code = 75296) NEGATIVE VAGINAL PATHOGENS DNA [id number] 00:00:00 Test Item Value Reference Range Interpretation Comments CONRAD SPECIES (test code = 29828) NEGATIVE G. VAGINALIS (test code = 34304) POSITIVE T. VAGINALIS (test code = 30110) NEGATIVE GC, AMPLIFIED, [id number] 00:00:00 Test Item Value Reference Range Interpretation Comments GONORRHEA, TMA (test code = 00433) NEGATIVE [id number] 00:00:00 Test Item Value Reference Range Interpretation Comments RPR RESULT (test code = NON-REACTIVE 3501) RPR TITER (test code = 3500) NOT INDIC. TITER [id number] 00:00:00 Test Item Value Reference Range Interpretation Comments RPR RESULT (test code = NON-REACTIVE 3501) RPR TITER (test code = 3500) NOT INDIC. TITER [id number] 00:00:00 Test Item Value Reference Range Interpretation Comments RPR RESULT (test code = NON-REACTIVE 3501) RPR TITER (test code = 3500) NOT INDIC. TITER HIV AB/AG COMBO RFLX [id number] 00:00:00 Test Item Value Reference Range Interpretation Comments HIV 1/2 4TH GEN, RFLX CONF (test NON-REACTIVE code = 3514) PAP TEST, THINPREP, [id number] 00:00:00 Test Item Value Reference Range Interpretation Comments SOURCE: (test code = Cervical/Endocervical 8001) SLIDES: (test code = 1 8011) LMP: (test code = 8021) 05/11/2020 SPECIMEN ADEQUACY: (test (NOTE) code = 07152) INTERPRETATION: (test NILM/NO EPITH. code = 14016) ABNORMALITY;SEE BELOW WEB DESIGNER: (test JACKSON Mao(ASCP) code = 8101) LOCATION: (test code = (NOTE) 14531) CPT: (test code = 8140) (NOTE) VAGINAL PATHOGENS DNA [id number] 00:00:00 Test Item Value Reference Range Interpretation Comments CONRAD SPECIES (test code = ) NEGATIVE G. VAGINALIS (test code = 52085) NEGATIVE T. VAGINALIS (test code = 93880) NEGATIVE HIV AB/AG COMBO RFLX [id number] 00:00:00 Test Item Value Reference Range Interpretation Comments HIV 1/2 4TH GEN, RFLX CONF (test NON-REACTIVE code = 3514) VAGINAL PATHOGENS DNA [id number] 00:00:00 Test Item Value Reference Range Interpretation Comments CONRAD SPECIES (test code = ) NEGATIVE G. VAGINALIS (test code = 61786) NEGATIVE T. VAGINALIS (test code = 20006) NEGATIVE PAP TEST, THINPREP, [id number] 00:00:00 Test Item Value Reference Range Interpretation Comments SOURCE: (test code = Cervical/Endocervical 8001) SLIDES: (test code = 1 8011) LMP: (test code = 8021) 05/11/2020 SPECIMEN ADEQUACY: (test (NOTE) code = 38310) INTERPRETATION: (test NILM/NO EPITH. code = 42016) ABNORMALITY;SEE BELOW WEB DESIGNER: (test JACKSON Mao(ASCP) code = 8101) LOCATION: (test code = (NOTE) 04713) CPT: (test code = 8140) (NOTE) ACUTE HEPATITIS [id number] 00:00:00 Test Item Value Reference Range Interpretation Comments HEPATITIS A IgM (test code = NON-REACTIVE 26826) HEPATITIS B CORE IgM (test code NON-REACTIVE = 5544) HEPATITIS B SURF AG (test code = NON-REACTIVE 0559) HEPATITIS C ANTIBODY (test code NON-REACTIVE = 9104) INTERPRETATION HEPATITIS A: (NOTE) (test code = 2552) INTERPRETATION HEPATITIS B: (NOTE) (test code = 38400) INTERPRETATION HEPATITIS C: (NOTE) (test code = 25221) HPV HIGH RISK WITH GENOTYPE, [id number] 00:00:00 Test Item Value Reference Range Interpretation Comments HPV HIGH RISK INTERP (test code = NEGATIVE 42446) HPV 16 (test code = 75038) NEGATIVE HPV 18 (test code = 43574) NEGATIVE HPV, HR, OTHER GENOTYPES (test code NEGATIVE = 40682) HPV HIGH RISK WITH GENOTYPE, [id number] 00:00:00 Test Item Value Reference Range Interpretation Comments HPV HIGH RISK INTERP (test code = NEGATIVE 65365) HPV 16 (test code = 07721) NEGATIVE HPV 18 (test code = 31803) NEGATIVE HPV, HR, OTHER GENOTYPES (test code NEGATIVE = 77317) ACUTE HEPATITIS [id number] 00:00:00 Test Item Value Reference Range Interpretation Comments HEPATITIS A IgM (test code = NON-REACTIVE 64669) HEPATITIS B CORE IgM (test code NON-REACTIVE = 4644) HEPATITIS B SURF AG (test code = NON-REACTIVE 5799) HEPATITIS C ANTIBODY (test code NON-REACTIVE = 4675) INTERPRETATION HEPATITIS A: (NOTE) (test code = 2552) INTERPRETATION HEPATITIS B: (NOTE) (test code = 44395) INTERPRETATION HEPATITIS C: (NOTE) (test code = 65154) CHLAMYDIA, AMPLIFIED, [id number] 00:00:00 Test Item Value Reference Range Interpretation Comments CHLAMYDIA, TMA (test code = 51645) NEGATIVE CHLAMYDIA, AMPLIFIED, [id number] 00:00:00 Test Item Value Reference Range Interpretation Comments CHLAMYDIA, TMA (test code = 42881) NEGATIVE GC, AMPLIFIED, [id number] 00:00:00 Test Item Value Reference Range Interpretation Comments GONORRHEA, TMA (test code = 40858) NEGATIVE [id number] 00:00:00 Test Item Value Reference Range Interpretation Comments PROLACTIN (test code = 2800) 11.0 NG/ML [id number] 00:00:00 Test Item Value Reference Range Interpretation Comments PROLACTIN (test code = 2800) 11.0 NG/ML [id number] 00:00:00 Test Item Value Reference Range Interpretation Comments TSH, THIRD GENERATION (test code 0.793 UIU/ML = 2821) [id number] 00:00:00 Test Item Value Reference Range Interpretation Comments TSH, THIRD GENERATION (test code 0.793 UIU/ML = 2821) [id number] 00:00:00 Test Item Value Reference Range Interpretation Comments TSH, THIRD GENERATION (test code 0.793 UIU/ML = 2821)"
--- NOTE | 2023-09-02 12:03 | RAD REPORT ---
EXAM DESCRIPTION: CT - CTHCSPWOC - 09/02/2023 11:46 am CLINICAL HISTORY: Trauma, head and neck injury. TRAUMA COMPARISON: Head C Spine Mpr Wo Con dated 09/04/2019 TECHNIQUE: Axial 5 mm thick images of the head were obtained. Axial 2 mm thick images of the cervical spine were obtained with sagittal and coronal reconstruction images generated and reviewed. All CT scans are performed using dose optimization technique as appropriate and may include automated exposure control or mA/KV adjustment according to patient size. FINDINGS: CT HEAD WITHOUT CONTRAST: No acute hemorrhage, hydrocephalus or extra-axial collection is identified.No areas of brain edema or midline shift. The paranasal sinuses and mastoids are clear.The calvarium is intact. CT CERVICAL SPINE WITHOUT CONTRAST: No fracture or subluxation.No prevertebral soft tissues swelling is identified. IMPRESSION: No acute intracranial or cervical spine findings.
--- NOTE | 2023-09-02 12:09 | RAD REPORT ---
EXAM DESCRIPTION: RAD - Chest Single View - 09/02/2023 12:02 pm CLINICAL HISTORY: TRAUMA COMPARISON: Chest Single View dated 12/03/2022; Chest Single View dated 09/04/2019 FINDINGS: Lines: None. Lungs: No evidence of edema or pneumonia. Pleural: No significant pleural effusions or pneumothorax. Cardiac: The heart size is within normal limits. Mediastinum: Within normal limits. Bones: No acute fractures. Other: None IMPRESSION: No acute cardiopulmonary disease.
--- NOTE | 2023-09-02 12:09 | RAD REPORT ---
EXAM DESCRIPTION: RAD - Lumbar Spine 3 Views - 09/02/2023 12:02 pm CLINICAL HISTORY: trauma COMPARISON: Lumbar Spine 3 Views dated 10/01/2017 FINDINGS/IMPRESSION: No acute fracture. Minimal thoracolumbar curvature. No significant focal degene rative changes.
[2023-09-02 12:48] LABS: Protime INR 1.02
[2023-09-02] MEDS ORDERED: NA CHLORIDE 0.9% 1,000 ML ONE (13:02)
[2023-09-02 13:18] LABS: Specific Gravity 1.027 (1.005-1.030)
[2023-09-02 13:18] LABS: Absolute Lymphocytes (CBC) 4.3 K/uL (0.7-4.9); Hematocrit 43.4 % (36.0-45.0); Lymphocytes % 44.8 % (15.3-44.8); MCV 92.6 fL (80-100); MPV 8.1 fL (7.6-11.3); Platelets 350 thou/uL (152-406); RBC Red Blood Cell Count 4.68 M/uL (3.86-4.86)
[2023-09-02 13:23] LABS: Specific Gravity 1.027 (1.005-1.030); Transitional Epithelial <5 /HPF (None Seen); Urine Bacteria >50 /HPF (<20); Urine Bilirubin NEGATIVE (Negative); Urine Blood 1+ (Negative); Urine Clarity Extremely Turbid (Clear); Urine Color Yellow (Yellow); Urine Glucose NEGATIVE (Negative); Urine Mucus 3+ /HPF (None Seen); Urine Protein TRACE (Negative); Urine Urobilinogen 1+ (Normal)
[2023-09-02 13:31] LABS: Barbiturates NEGATIVE (NEGATIVE); Benzodiazepines NEGATIVE (NEGATIVE); Cocaine NEGATIVE (NEGATIVE); METHAMPHETAM POSITIVE (NEGATIVE); Methadone NEGATIVE (NEGATIVE); Opiates NEGATIVE (NEGATIVE); Phencyclidine NEGATIVE (NEGATIVE); THC Cannibis NEGATIVE (NEGATIVE)
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
[2023-09-02 14:42] VITALS: TEMP 98.4
[2023-09-02 16:02] VITALS: BP 132/96; O2SAT 97
--- NOTE | 2023-09-03 17:23 | EKG ---
Test Date: 2023-09-02 Test Time: 12:09:15 Pediatric Care Coordinator: MARLY MEASUREMENT RESULTS: Intervals: Rate: 108 WV: 124 QRSD: 88 QT: 314 QTc: 420 Kegley: P: 72 WV: 124 QRS: 76 T: 59 INTERPRETIVE STATEMENTS: Sinus tachycardia Right atrial enlargement Borderline ECG Compared to ECG 11/17/2022 19:05:51 Atrial abnormality now present Sinus rhythm no longer present Electronically Signed On 09-03-23 17:20:26 PRINCIPAL STATISTICAL PROGRAMMER by Arash Quintero
== END 2023-09-02 14:30 | disposition home or self-care (01) ==
LOC: ER 11:28
DX: F15.10 Other stimulant abuse, uncomplicated (principal); V47.5XXA Car driver injured in collision with fixed or stationary object in traffic accident, initial encounter; F31.9 Bipolar disorder, unspecified; Z91.040 Latex allergy status
CPT/HCPCS: 93005; 85025; 81001; 36415; 81025; 85610; 80307; 70450; 72125; 71045; 72100; 96360; 99284; 82077; J7030

== ENCOUNTER → 2023-11-08 | Emergency (ER) | payer OTHER ==
[~2023-11-08] MED LIST: TDAP (DIPHTH,PERTUSS(ACELL),TET VAC) 0.5 ML VIAL IMVAC ONE
--- OUTSIDE RECORDS SUMMARY | 2023-11-08 14:48 | XMS REPORT | Continuity of Care Document ---
Author Name Unknown Address [address] [facility] [facility] [address] [place] [address] [facility] Address [address] [place] [address] Care Team Providers Care Investor Relations Analyst Name Role Phone Roseanne Otto TAYLOR Primary Care Physician LAURA BELTRAN Attending Clinician UnaGABY Iverson Attending Clinician Unavailable GABY PANTOJA Attending Clinician Unavailable Laura Beltran MD Attending Clinician [phone] Doctor Unassigned, [place] Attending Clinician U MAIKEL Arreola Attending Clinician Unavailable Vivienne Campuzano Attending Clinician [phone] Unknown, Attending Attending Clinician Unavailab VIVIENNE Koo Attending Clinician Unavailable MC STRONG Attending Clinician Unavailable Mc Strong MD Attending Clinician [phone] Feroz Barakat MD Attending Clinician [phone] FEROZ BARAKAT Attending Clinician Unavailab YESSENIA English Attending Clinician Unavailable [facility] Attending Clinician Un available Yessenia Cruz Attending Clinician [phone] UNKNOWN, ATTENDING Attending Clinician Unavailab le Provider, [facility] Attending Clinician Unavailable FLOR INFANTE Attending Clinician Unavailable Naresh PARKER, Flor Attending Clinician [phone] Trena Fairbanks Attending Clinician [phone] STU BORGES Attending Clinician Unavailab TRENA Rinaldi Attending Clinician Unavailable VAUGHN TAN Attending Clinician Unavailable Britney NEUROLOGY EPILEPSY PHYSICIAN, Vaughn Attending Clinician [phone] ARNEL ALARCON Attending Clinician Unavailable MILA ROLDAN Attending Clinician Unavailable Jamar NEUROLOGY EPILEPSY PHYSICIAN, Mila Attending Clinician [phone] MUNDO PEDROZA Attending Clinician Unavailable Yovany NEUROLOGY EPILEPSY PHYSICIAN, Mundo Attending Clinician [phone] Lora Gould RN Attending Clinician Unavailable Marc Khoury MD Attending Clinician [phone] Marilyn NEUROLOGY EPILEPSY PHYSICIAN, Nayla Larios Attending Clinician [phone] JORDAN HALEY Attending Clinician UnavailJhoana Yeboah Attending Clinician [phone] JHOANA ARNOLD Attending Clinician Unavaila lydia Pob, [facility] Attending Clinician UnavailCristal Aquino MD Attending Clinician + [phone] CRISTAL SEAMAN Attending Clinician Unava KELSI Borrego Attending Clinician Unavailab Kelsi Wang DO Attending Clinician [phone] JHOANA ARNOLD Admitting Clinician Unavailalthea moore Payers Payer Name Policy Type Policy Number Effective Date Expirati on Date Source [employer] MEDICAID [id number] 2017 00:00:00 [facility] [id number] 5000-12-17 00:00:00 [place] [id number] 2017 00:00:00 Problems Condition Name Condition Details Condition Category Status Onset Date Resolution Date Last Treatment Date Treating Clinician Comments Source Cellulitis of left lower extremity Cellulitis of left lower extremity Disease Active 11-20 00:00: 00 [facility] Abscess Abscess Disease Active 11-20 00:00: 00 [facility] Skin sore Skin sore Disease Active 2- 00:00: 00 [facility] Follow-up exam Follow-up exam Disease Active 2- 00:00: 00 [facility] Bipolar 1 disorder, manic, mild Bipolar 1 disorder, manic, mild Disease Active 9 00:00: 00 [facility] Attention deficit disorder (ADD) in adult Attention deficit disorder (ADD) in adult Disease Active 8- 00:00: 00 [facility] Allergies, Adverse Reactions, Alerts Allergy Name Allergy Type Status Severity Reaction(s) Onset Date Inactive Date Treating Clinician Comments Source NO KNOWN ALLERGIE S Drug Class Active [facility] Social History Social Habit Start Date Stop Date Quantity Comments Source Gender identity [facility] Sexual orientation [facility] Alcohol intake 2023-10-16 00:00:00 2023-10-16 00:00:00 Ex-drinker (finding) [facility] History of Social function 2023-08-11 00:00:00 2023-08-11 00:00:00 [facility] Exposure to SARS-CoV-2 (event) 2023-01-28 00:00:00 2023-02-07 09:18:00 Not sure [facility] Tobacco use and exposure 2022-07-09 00:00:00 2022-07-09 00:00:00 Smokeless tobacco non-user [facility] History of tobacco use 2010-03-28 00:00:00 Cigarette Smoker [facility] Sex Assigned At 1980 00:00:00 1980 00:00:00 [facility] Smoking Status Start Date Stop Date Source Ex-smoker 2022-07-09 00:00:00 2022-07-09 00:00:00 [facility] Medications Ordered Medication Name Filled Medication Name Start Date Stop Date Current Medication? Ordering Clinician Indication Dosage Frequency Signature (SIG) Comments Components Source ketorolac (TORADOL) injection 30 mg 2022-10 23:45: 00 10-16 23:05 :00 No [id number] 30mg [facility] ketorolac (TORADOL) injection 30 mg 2022-10 23:45: 00 10-16 23:05 :00 No [id number] 30mg 30 mg, Intramuscu lar, ONCE, 1 dose, On Fri10/16/23 at 1745, Routine [facility] ketorolac (TORADOL) injection 30 mg 2022-10 23:45: 00 10-16 23:05 :00 No [id number] 30mg [facility] ketorolac (TORADOL) injection 30 mg 2022-10 23:45: 00 10-16 23:05 :00 No [id number] 30mg 30 mg, Intramuscu lar, ONCE, 1 dose, On Fri10/16/23 at 1745, Routine [facility] nirmatrelvi r-ritonavir 300 mg (150 mg x 2)-100 mg tablet 2022-10 00:00: 00 Yes [id number] 3{tbl} Take 3 tablets by mouth in the morning and 3 tablets in the evening. [facility] ibuprofen 800 mg tablet 2022-10 00:00: 00 Yes [id number] 800mg Take 1 tablet by mouth every 8 (eight) hours as needed (With meals). [facility] promethazin e-dextromet horphan 6.25-15 mg/5 mL syrup 2022-10 00:00: 00 Yes [id number] 5mL Take 5 mL by mouth 4 (four) times daily as needed for Cough. [facility] albuterol 90 mcg/actuati on inhaler 2022-10 00:00: 00 Yes [id number] 2{puff} Inhale 2 Puffs every 6 (six) hours as needed for Wheezing or Shortness of Breath. [facility] fluticasone propionate 50 mcg/actuati on nasal spray 2022-10 00:00: 00 Yes [id number] Use two sprays in each nostril daily for a week, then use one spray in each nostril daily [facility] nirmatrelvi r-ritonavir 300 mg (150 mg x 2)-100 mg tablet 2022-10 00:00: 00 Yes [id number] 3{tbl} Take 3 tablets by mouth in the morning and 3 tablets in the evening. [facility] ibuprofen 800 mg tablet 2022-10 00:00: 00 Yes [id number] 800mg Take 1 tablet by mouth every 8 (eight) hours as needed (With meals). [facility] promethazin e-dextromet horphan 6.25-15 mg/5 mL syrup 2022-10 00:00: 00 Yes [id number] 5mL Take 5 mL by mouth 4 (four) times daily as needed for Cough. [facility] albuterol 90 mcg/actuati on inhaler 2022-10 00:00: 00 Yes [id number] 2{puff} Inhale 2 Puffs every 6 (six) hours as needed for Wheezing or Shortness of Breath. [facility] fluticasone propionate 50 mcg/actuati on nasal spray 2022-10 00:00: 00 Yes [id number] Use two sprays in each nostril daily for a week, then use one spray in each nostril daily [facility] dextroamphe tamine-amph etamine (ADDERALL) 20 mg tablet 2022-10 00:00: 00 Yes [id number] 20mg Take 1 tablet by mouth in the morning and 1 tablet at noon and 1 tablet in the evening. [facility] dextroamphe tamine-amph etamine (ADDERALL) 20 mg tablet 2022-10 00:00: 00 Yes [id number] 20mg Take 1 tablet by mouth in the morning and 1 tablet at noon and 1 tablet in the evening. [facility] dextroamphe tamine-amph etamine (ADDERALL) 20 mg tablet 2022-10 00:00: 00 Yes [id number] 20mg Take 1 tablet by mouth in the morning and 1 tablet at noon and 1 tablet in the evening. [facility] dextroamphe tamine-amph etamine (ADDERALL) 30 mg tablet 2022-10 00:00: 00 Yes [id number] 30mg Take 1 tablet by mouth in the morning and 1 tablet in the evening. [facility] dextroamphe tamine-amph etamine (ADDERALL) 30 mg tablet 2022-10 00:00: 00 10-08 00:00 :00 No [id number] 30mg Take 1 tablet by mouth in the morning and 1 tablet in the evening. [facility] dextroamphe tamine-amph etamine (ADDERALL) 30 mg tablet 2022-10 00:00: 00 Yes [id number] 30mg Take 1 tablet by mouth in the morning and 1 tablet in the evening. [facility] dextroamphe tamine-amph etamine (ADDERALL) 30 mg tablet 2022-10 00:00: 00 Yes [id number] 30mg Take 1 tablet by mouth in the morning and 1 tablet in the evening. [facility] dextroamphe tamine-amph etamine (ADDERALL) 30 mg tablet 2022-10 00:00: 00 10-06 00:00 :00 No [id number] 30mg Take 1 tablet by mouth in the morning and 1 tablet in the evening. [facility] dextroamphe tamine-amph etamine (ADDERALL) 30 mg tablet 2022-10 00:00: 00 Yes [id number] 30mg Take 1 tablet by mouth in the morning and 1 tablet in the evening. [facility] dextroamphe tamine-amph etamine (ADDERALL) 30 mg tablet 2022-10 00:00: 00 09-17 00:00 :00 No [id number] 30mg Take 1 tablet by mouth in the morning and 1 tablet in the evening. [facility] dextroamphe tamine-amph etamine (ADDERALL) 30 mg tablet 2022-10 00:00: 00 Yes [id number] 30mg Take 1 tablet by mouth in the morning and 1 tablet in the evening. [facility] dextroamphe tamine-amph etamine (ADDERALL) 30 mg tablet 2022-10 00:00: 00 Yes [id number] 30mg Take 1 tablet by mouth in the morning and 1 tablet in the evening. [facility] dextroamphe tamine-amph etamine (ADDERALL) 30 mg tablet 2022-10 00:00: 00 09-10 00:00 :00 No [id number] 30mg Take 1 tablet by mouth in the morning and 1 tablet in the evening. [facility] dextroamphe tamine-amph etamine (ADDERALL) 30 mg tablet 2022-10 00:00: 00 Yes [id number] 30mg Take 1 tablet by mouth in the morning and 1 tablet in the evening. [facility] dextroamphe tamine-amph etamine (ADDERALL) 30 mg tablet 2022-10 00:00: 00 09-08 00:00 :00 No [id number] 30mg Take 1 tablet by mouth in the morning and 1 tablet in the evening. [facility] dextroamphe tamine-amph etamine (ADDERALL) 30 mg tablet 2022-10 00:00: 00 Yes [id number] 30mg Take 1 tablet by mouth in the morning and 1 tablet in the evening. [facility] dextroamphe tamine-amph etamine (ADDERALL) 30 mg tablet 2022-10 00:00: 00 Yes [id number] 30mg Take 1 tablet by mouth in the morning and 1 tablet in the evening. [facility] dextroamphe tamine-amph etamine (ADDERALL) 30 mg tablet 2022-10 00:00: 00 Yes [id number] 30mg Take 1 tablet by mouth in the morning and 1 tablet in the evening. [facility] dextroamphe tamine-amph etamine (ADDERALL) 30 mg tablet 2022-10 00:00: 00 09-03 00:00 :00 No [id number] 30mg Take 1 tablet by mouth in the morning and 1 tablet in the evening. [facility] VENTOLIN HFA 90 mcg/actuati on inhaler 2022-10 0-09 00:00: 00 Yes [id number] INHALE 2 PUFFS BY MOUTH EVERY 6 HOURS NEEDED FOR WHEEZING [facility] VENTOLIN HFA 90 mcg/actuati on inhaler 2022-10 0-09 00:00: 00 Yes [id number] INHALE 2 PUFFS BY MOUTH EVERY 6 HOURS NEEDED FOR WHEEZING [facility] VENTOLIN HFA 90 mcg/actuati on inhaler 2022-10 0- 00:00: 00 Yes [id number] INHALE 2 PUFFS BY MOUTH EVERY 6 HOURS NEEDED FOR WHEEZING [facility] VENTOLIN HFA 90 mcg/actuati on inhaler 2022-10 0- 00:00: 00 08-11 00:00 :00 No [id number] INHALE 2 PUFFS BY MOUTH EVERY 6 HOURS [facility] FOR WHEEZING [facility] V[facility] HFA 90 mcg/actuati on inhaler 2022-10 0 00:00: 00 08-11 00:00 :00 No [id number] INHALE 2 PUFFS BY MOUTH EVERY 6 HOURS NEEDED FOR WHEEZING [facility] VENTOLIN HFA 90 mcg/actuati on inhaler 2022-10 0 00:00: 00 08-11 00:00 :00 No [id number] INHALE 2 PUFFS BY MOUTH EVERY 6 HOURS NEEDED FOR WHEEZING [facility] ketorolac (TORADOL) injection 30 mg 07-17 02:30: 00 07-17 01:48 :00 No [id number] [facility] ketorolac (TORADOL) injection 30 mg 07-17 02:30: 00 07-17 01:48 :00 No [id number] 30mg 30 mg, Intramuscu lar, ONCE, 1 dose, On Fri07/16/23 at 2130, Routine [facility] tra[facility] mg tablet 07-17 00:00: 00 Yes 50mg Take 1 tablet by mouth in the morning and 1 tablet in the evening. [facility] traMADoL 50 mg tablet 07-17 00:00: 00 Yes 50mg Take 1 tablet by mouth in the morning and 1 tablet in the evening. [facility] traMADoL 50 mg tablet 07-17 00:00: 00 Yes 50mg Take 1 tablet by mouth in the morning and 1 tablet in the evening. [facility] traMADoL 50 mg tablet 07-17 00:00: 00 Yes 50mg Take 1 tablet by mouth in the morning and 1 tablet in the evening. [facility] traMADoL 50 mg tablet 07-17 00:00: 00 Yes 50mg Take 1 tablet by mouth in the morning and 1 tablet in the evening. [facility] traMADoL 50 mg tablet 07-17 00:00: 00 Yes 50mg Take 1 tablet by mouth in the morning and 1 tablet in the evening. [facility] traMADoL 50 mg tablet 07-17 00:00: 00 Yes 50mg Take 1 tablet by mouth in the morning and 1 tablet in the evening. [facility] traMADoL 50 mg tablet 07-17 00:00: 00 Yes 50mg Take 1 tablet by mouth in the morning and 1 tablet in the evening. [facility] traMADoL 50 mg tablet 07-17 00:00: 00 Yes 50mg Take 1 tablet by mouth in the morning and 1 tablet in the evening. [facility] traMADoL 50 mg tablet 07-17 00:00: 00 Yes 50mg Take 1 tablet by mouth in the morning and 1 tablet in the evening. [facility] traMADoL 50 mg tablet 07-17 00:00: 00 Yes 50mg Take 1 tablet by mouth in the morning and 1 tablet in the evening. [facility] traMADoL 50 mg tablet 07-17 00:00: 00 Yes 50mg Take 1 tablet by mouth in the morning and 1 tablet in the evening. [facility] traMADoL 50 mg tablet 07-17 00:00: 00 Yes 50mg Take 1 tablet by mouth in the morning and 1 tablet in the evening. [facility] hydrOXYzine 50 mg tablet 07-16 00:00: 00 Yes [id number] 50mg Take 1 tablet by mouth in the morning and 1 tablet at noon and 1 tablet in the evening. [facility] hydrOXYzine 50 mg tablet 0 07-16 00:00: 00 Yes [id number] 50mg Take 1 tablet by mouth in the morning and 1 tablet at noon and 1 tablet in the evening. [facility] hydrOXYzine 50 mg tablet 0 07-16 00:00: 00 Yes [id number] 50mg Take 1 tablet by mouth in the morning and 1 tablet at noon and 1 tablet in the evening. [facility] hydrOXYzine 50 mg tablet 07-16 00:00: 00 Yes [id number] 50mg Take 1 tablet by mouth in the morning and 1 tablet at noon and 1 tablet in the evening. [facility] hydrOXYzine 50 mg tablet 07-16 00:00: 00 08-11 00:00 :00 No [id number] 50mg Take 1 tablet by mouth in the morning and 1 tablet at noon and 1 tablet in the evening. [facility] hydrOXYzine 50 mg tablet 07-16 00:00: 00 08-11 00:00 :00 No [id number] 50mg Take 1 tablet by mouth in the morning and 1 tablet at noon and 1 tablet in the evening. [facility] hydrOXYzine 50 mg tablet 07-16 00:00: 00 08-11 00:00 :00 No [id number] 50mg Take 1 tablet by mouth in the morning and 1 tablet at noon and 1 tablet in the evening. [facility] hydrOXYzine 50 mg tablet 07-16 00:00: 00 07-16 00:00 :00 No [id number] 50mg Take 1 tablet by mouth in the morning and 1 tablet at noon and 1 tablet in the evening. Do all this for 10 days. [facility] diphenhydrA MINE (BENADRYL) tablet 25 mg 07-15 09:45: 00 07-15 09:40 :00 No 25mg 25 mg, Oral, ONCE, 1 dose, On Fri07/15/23 at 0445, CAMILA [facility] dextroamphe tamine-amph etamine (ADDERALL) 30 mg tablet 07-07 00:00: 00 Yes [id number] 30mg Take 1 tablet by mouth in the morning and 1 tablet in the evening. [facility] dextroamphe tamine-amph etamine (ADDERALL) 30 mg tablet 07-07 00:00: 00 Yes [id number] 30mg Take 1 tablet by mouth in the morning and 1 tablet in the evening. [facility] dextroamphe tamine-amph etamine (ADDERALL) 30 mg tablet 07-07 00:00: 00 Yes [id number] 30mg Take 1 tablet by mouth in the morning and 1 tablet in the evening. [facility] dextroamphe tamine-amph etamine (ADDERALL) 30 mg tablet 07-07 00:00: 00 Yes [id number] 30mg Take 1 tablet by mouth in the morning and 1 tablet in the evening. [facility] dextroamphe tamine-amph etamine (ADDERALL) 30 mg tablet 07-07 00:00: 00 Yes [id number] 30mg Take 1 tablet by mouth in the morning and 1 tablet in the evening. [facility] dextroamphe tamine-amph etamine (ADDERALL) 30 mg tablet 07-07 00:00: 00 Yes [id number] 30mg Take 1 tablet by mouth in the morning and 1 tablet in the evening. [facility] dextroamphe tamine-amph etamine (ADDERALL) 30 mg tablet 07-07 00:00: 00 08-11 00:00 :00 No [id number] 30mg Take 1 tablet by mouth in the morning and 1 tablet in the evening. [facility] dextroamphe tamine-amph etamine (ADDERALL) 30 mg tablet 07-07 00:00: 00 08-11 00:00 :00 No [id number] 30mg Take 1 tablet by mouth in the morning and 1 tablet in the evening. [facility] dextroamphe tamine-amph etamine (ADDERALL) 30 mg tablet 918 00:00: 00 08-11 00:00 :00 No [id number] 30mg Take 1 tablet by mouth in the morning and 1 tablet in the evening. [facility] VENTOLIN HFA 90 mcg/actuati on inhaler 0 14 00:00: 00 Yes [id number] INHALE 2 PUFFS BY MOUTH EVERY 6 HOURS NEEDED FOR WHEEZING [facility] V[facility]IN HFA 90 mcg/actuati on inhaler 0 14 00:00: 00 Yes [id number] INHALE 2 PUFFS BY MOUTH EVERY 6 HOURS NEEDED FOR WHEEZING [facility] VENTOLIN HFA 90 mcg/actuati on inhaler 0 14 00:00: 00 Yes [id number] INHALE 2 PUFFS BY MOUTH EVERY 6 HOURS NEEDED FOR WHEEZING [facility] VENTOLIN HFA 90 mcg/actuati on inhaler 0 14 00:00: 00 Yes [id number] INHALE 2 PUFFS BY MOUTH EVERY 6 HOURS NEEDED FOR WHEEZING [facility] VENTOLIN HFA 90 mcg/actuati on inhaler 14 00:00: 00 07-28 00:00 :00 No [id number] INHALE 2 PUFFS BY MOUTH EVERY 6 HOURS NEEDED FOR WHEEZING [facility] dextroamphe tamine-amph etamine (ADDERALL) 30 mg tablet 06-09 00:00: 00 Yes [id number] 30mg Take 1 tablet by mouth in the morning and 1 tablet in the evening. [facility] dextroamphe tamine-amph etamine (ADDERALL) 30 mg tablet 06-09 00:00: 00 Yes [id number] 30mg Take 1 tablet by mouth in the morning and 1 tablet in the evening. [facility] dextroamphe tamine-amph etamine (ADDERALL) 30 mg tablet 06-09 00:00: 00 Yes [id number] 30mg Take 1 tablet by mouth in the morning and 1 tablet in the evening. [facility] dextroamphe tamine-amph etamine (ADDERALL) 30 mg tablet 8 00:00: 00 07-07 00:00 :00 No [id number] 30mg Take 1 tablet by mouth in the morning and 1 tablet in the evening. [facility] VENTOLIN HFA 90 mcg/actuati on inhaler 0 818 00:00: 00 Yes [id number] INHALE 2 PUFFS BY MOUTH EVERY 6 HOURS NEEDED FOR WHEEZING [facility] VENTOLIN HFA 90 mcg/actuati on inhaler 0 818 00:00: 00 Yes [id number] INHALE 2 PUFFS BY MOUTH EVERY 6 HOURS NEEDED FOR WHEEZING [facility] V[facility] HFA 90 mcg/actuati on inhaler 0 818 00:00: 00 Yes [id number] INHALE 2 PUFFS BY MOUTH EVERY 6 HOURS NEEDED FOR WHEEZING [facility] V[facility] HFA 90 mcg/actuati on inhaler 18 00:00: 00 07-03 00:00 :00 No [id number] INHALE 2 PUFFS BY MOUTH EVERY 6 HOURS NEEDED FOR WHEEZING [facility] VENTOLIN HFA 90 mcg/actuati on inhaler 7 00:00: 00 Yes [id number] INHALE 2 PUFFS BY MOUTH EVERY 6 HOURS NEEDED FOR WHEEZING [facility] V[facility] HFA 90 mcg/actuati on inhaler 0 7 00:00: 00 Yes [id number] INHALE 2 PUFFS BY MOUTH EVERY 6 HOURS NEEDED FOR WHEEZING [facility] VENTOLIN HFA 90 mcg/actuati on inhaler 0 722 00:00: 00 Yes [id number] INHALE 2 PUFFS BY MOUTH EVERY 6 HOURS NEEDED FOR WHEEZING [facility] V[facility] HFA 90 mcg/actuati on inhaler 0 722 00:00: 00 06-06 00:00 :00 No [id number] INHALE 2 PUFFS BY MOUTH EVERY 6 HOURS NEEDED FOR WHEEZING [facility] dextroamphe tamine-amph etamine (ADDERALL) 30 mg tablet 05-05 00:00: 00 Yes [id number] 30mg Take 1 tablet by mouth in the morning and 1 tablet in the evening. [facility] dextroamphe tamine-amph etamine (ADDERALL) 30 mg tablet 05-05 00:00: 00 Yes [id number] 30mg Take 1 tablet by mouth in the morning and 1 tablet in the evening. [facility] dextroamphe tamine-amph etamine (ADDERALL) 30 mg tablet 05-05 00:00: 00 Yes [id number] 30mg Take 1 tablet by mouth in the morning and 1 tablet in the evening. [facility] dextroamphe tamine-amph etamine (ADDERALL) 30 mg tablet 05-05 00:00: 00 Yes [id number] 30mg Take 1 tablet by mouth in the morning and 1 tablet in the evening. [facility] dextroamphe tamine-amph etamine (ADDERALL) 30 mg tablet 05-05 00:00: 00 Yes [id number] 30mg Take 1 tablet by mouth in the morning and 1 tablet in the evening. [facility] dextroamphe tamine-amph etamine (ADDERALL) 30 mg tablet 05-05 00:00: 00 06-09 00:00 :00 No [id number] 30mg Take 1 tablet by mouth in the morning and 1 tablet in the evening. [facility] VENTOLIN HFA 90 mcg/actuati on inhaler 04-08 00:00: 00 Yes [id number] INHALE 2 PUFFS BY MOUTH EVERY 6 HOURS NEEDED FOR WHEEZING [facility] VENTOLIN HFA 90 mcg/actuati on inhaler 04-08 00:00: 00 Yes [id number] INHALE 2 PUFFS BY MOUTH EVERY 6 HOURS NEEDED FOR WHEEZING [facility] VENTOLIN HFA 90 mcg/actuati on inhaler 04-08 00:00: 00 05-10 00:00 :00 No [id number] INHALE 2 PUFFS BY MOUTH EVERY 6 HOURS NEEDED FOR WHEEZING [facility] dextroamphe tamine-amph etamine (ADDERALL) 30 mg tablet 04-03 00:00: 00 Yes [id number] 30mg Take 1 tablet by mouth in the morning and 1 tablet in the evening. [facility] dextroamphe tamine-amph etamine (ADDERALL) 30 mg tablet 04-03 00:00: 00 Yes [id number] 30mg Take 1 tablet by mouth in the morning and 1 tablet in the evening. [facility] dextroamphe tamine-amph etamine (ADDERALL) 30 mg tablet 04-03 00:00: 00 05-05 00:00 :00 No [id number] 30mg Take 1 tablet by mouth in the morning and 1 tablet in the evening. [facility] dextroamphe tamine-amph etamine (ADDERALL) 30 mg tablet 03-10 00:00: 00 Yes [id number] 30mg Take 1 tablet by mouth in the morning and 1 tablet in the evening. [facility] dextroamphe tamine-amph etamine (ADDERALL) 30 mg tablet 03-10 00:00: 00 Yes [id number] 30mg Take 1 tablet by mouth in the morning and 1 tablet in the evening. [facility] dextroamphe tamine-amph etamine (ADDERALL) 30 mg tablet 03-10 00:00: 00 04-03 00:00 :00 No [id number] 30mg Take 1 tablet by mouth in the morning and 1 tablet in the evening. [facility] VENTOLIN HFA 90 mcg/actuati on inhaler 03-08 00:00: 00 Yes [id number] INHALE 2 PUFFS BY MOUTH EVERY 6 HOURS NEEDED FOR WHEEZING [facility] VENTOLIN HFA 90 mcg/actuati on inhaler 03-08 00:00: 00 Yes [id number] INHALE 2 PUFFS BY MOUTH EVERY 6 HOURS NEEDED FOR WHEEZING [facility] VENTOLIN HFA 90 mcg/actuati on inhaler 03-08 00:00: 00 Yes [id number] INHALE 2 PUFFS BY MOUTH EVERY 6 HOURS NEEDED FOR WHEEZING [facility] VENTOLIN HFA 90 mcg/actuati on inhaler 03-08 00:00: 00 04-08 00:00 :00 No [id number] INHALE 2 PUFFS BY MOUTH EVERY 6 HOURS NEEDED FOR WHEEZING [facility] ketorolac (TORADOL) injection 30 mg 02-07 15:45: 00 02-07 14:58 :00 No [id number] 30mg [facility] ketorolac (TORADOL) injection 30 mg 02-07 15:45: 00 02-07 14:58 :00 No [id number] 30mg 30 mg, Intramuscu lar, ONCE, 1 dose, On Fri02/07/23 at 1045, Routine [facility] promethazin e-dextromet horphan 6.25-15 mg/5 mL syrup 02-07 00:00: 00 02-18 04:59 :00 No [id number] 5mL Take 5 mL by mouth 4 (four) times daily for 10 days. [facility] promethazin e-dextromet horphan 6.25-15 mg/5 mL syrup 02-07 00:00: 00 02-18 04:59 :00 No [id number] 5mL Take 5 mL by mouth 4 (four) times daily for 10 days. [facility] oseltamivir (TAMIFLU) 75 mg capsule 02-07 00:00: 00 02-13 04:59 :00 No [id number] 75mg Take 1 capsule by mouth in the morning and 1 capsule in the evening. Do all this for 5 days. [facility] traZODone 100 mg tablet 02-03 10:06: 00 02-03 00:00 :00 No 100mg Take 1 tablet by mouth at bedtime. [facility] traZODone 100 mg tablet 02-03 10:06: 00 02-03 00:00 :00 No 100mg Take 1 tablet by mouth at bedtime. [facility] dextroamphe tamine-amph etamine (ADDERALL) 30 mg tablet 02-03 00:00: 00 Yes [id number] 30mg Take 1 tablet by mouth in the morning and 1 tablet in the evening. [facility] dextroamphe tamine-amph etamine (ADDERALL) 30 mg tablet 02-03 00:00: 00 Yes [id number] 30mg Take 1 tablet by mouth in the morning and 1 tablet in the evening. [facility] dextroamphe tamine-amph etamine (ADDERALL) 30 mg tablet 02-03 00:00: 00 Yes [id number] 30mg Take 1 tablet by mouth in the morning and 1 tablet in the evening. [facility] dextroamphe tamine-amph etamine (ADDERALL) 30 mg tablet 02-03 00:00: 00 Yes [id number] 30mg Take 1 tablet by mouth in the morning and 1 tablet in the evening. [facility] dextroamphe tamine-amph etamine (ADDERALL) 30 mg tablet 02-03 00:00: 00 Yes [id number] 30mg Take 1 tablet by mouth in the morning and 1 tablet in the evening. [facility] dextroamphe tamine-amph etamine (ADDERALL) 30 mg tablet 02-03 00:00: 00 Yes [id number] 30mg Take 1 tablet by mouth in the morning and 1 tablet in the evening. [facility] dextroamphe tamine-amph etamine (ADDERALL) 30 mg tablet 02-03 00:00: 00 Yes [id number] 30mg Take 1 tablet by mouth in the morning and 1 tablet in the evening. [facility] dextroamphe tamine-amph etamine (ADDERALL) 30 mg tablet 02-03 00:00: 00 03-10 00:00 :00 No [id number] 30mg Take 1 tablet by mouth in the morning and 1 tablet in the evening. [facility] dextroamphe tamine-amph etamine (ADDERALL) 30 mg tablet 20 00:00: 00 Yes [id number] 30mg Take 1 tablet by mouth in the morning and 1 tablet in the evening. [facility] dextroamphe tamine-amph etamine (ADDERALL) 30 mg tablet 01-06 00:00: 00 Yes [id number] 30mg Take 1 tablet by mouth in the morning and 1 tablet in the evening. [facility] dextroamphe tamine-amph etamine (ADDERALL) 30 mg tablet 01-06 00:00: 00 02-03 00:00 :00 No [id number] 30mg Take 1 tablet by mouth in the morning and 1 tablet in the evening. [facility] dextroamphe tamine-amph etamine (ADDERALL) 30 mg tablet 01-06 00:00: 00 02-03 00:00 :00 No [id number] 30mg Take 1 tablet by mouth in the morning and 1 tablet in the evening. [facility] promethazin e-dextromet horphan 6.25-15 mg/5 mL syrup 0 18 00:00: 00 01-15 04:59 :00 No [id number] 5mL Take 5 mL by mouth 4 (four) times daily for 10 days. [facility] promethazin e-dextromet horphan 6.25-15 mg/5 mL syrup 0 18 00:00: 00 01-15 04:59 :00 No [id number] 5mL Take 5 mL by mouth 4 (four) times daily for 10 days. [facility] traZODone 100 mg tablet 01-03 17:01: 55 Yes 100mg Take 1 tablet by mouth at bedtime. [facility] traZODone 100 mg tablet 01-03 17:01: 55 Yes 100mg Take 1 tablet by mouth at bedtime. [facility] traZODone 100 mg tablet 2022-0 17 17:01: 55 Yes 100mg Take 1 tablet by mouth at bedtime. [facility] traZODone 100 mg tablet 2022-0 01-03 17:01: 55 Yes 100mg Take 1 tablet by mouth at bedtime. [facility] traZODone 100 mg tablet 2022-0 17 17:01: 55 Yes 100mg Take 1 tablet by mouth at bedtime. [facility] albuterol 90 mcg/actuati on inhaler 0 17 00:00: 00 Yes [id number] 2{puff} Inhale 2 Puffs every 6 (six) hours as needed for Wheezing. [facility] triamcinolo ne acetonide 0.1 % cream 0 01-03 00:00: 00 Yes [id number] Apply to area(s) 2 (two) times daily. [facility] albuterol 90 mcg/actuati on inhaler 0 01-03 00:00: 00 Yes [id number] 2{puff} Inhale 2 Puffs every 6 (six) hours as needed for Wheezing. [facility] triamcinolo ne acetonide 0.1 % cream 0 01-03 00:00: 00 Yes [id number] Apply to area(s) 2 (two) times daily. [facility] albuterol 90 mcg/actuati on inhaler 0 01-03 00:00: 00 Yes [id number] 2{puff} Inhale 2 Puffs every 6 (six) hours as needed for Wheezing. [facility] triamcinolo ne acetonide 0.1 % cream 0 17 00:00: 00 Yes [id number] Apply to area(s) 2 (two) times daily. [facility] albuterol 90 mcg/actuati on inhaler 2022-0 17 00:00: 00 Yes [id number] 2{puff} Inhale 2 Puffs every 6 (six) hours as needed for Wheezing. [facility] triamcinolo ne acetonide 0.1 % cream 2022-0 317 00:00: 00 Yes [id number] Apply to area(s) 2 (two) times daily. [facility] al[facility]erol 90 mcg/actuati on inhaler 2022-0 3-17 00:00: 00 Yes [id number] 2{puff} Inhale 2 Puffs every 6 (six) hours as needed for Wheezing. [facility] triamcinolo ne acetonide 0.1 % cream 0 317 00:00: 00 Yes [id number] Apply to area(s) 2 (two) times daily. [facility] albuterol 90 mcg/actuati on inhaler 2022-0 317 00:00: 00 Yes [id number] 2{puff} Inhale 2 Puffs every 6 (six) hours as needed for Wheezing. [facility] triamcinolo ne acetonide 0.1 % cream 2022-0 317 00:00: 00 Yes [id number] Apply to area(s) 2 (two) times daily. [facility] albuterol 90 mcg/actuati on inhaler 2022-0 17 00:00: 00 Yes [id number] 2{puff} Inhale 2 Puffs every 6 (six) hours as needed for Wheezing. [facility] triamcinolo ne acetonide 0.1 % cream 2022-0 317 00:00: 00 Yes [id number] Apply to area(s) 2 (two) times daily. [facility] albuterol 90 mcg/actuati on inhaler 2022-0 317 00:00: 00 Yes [id number] 2{puff} Inhale 2 Puffs every 6 (six) hours as needed for Wheezing. [facility] triamcinolo ne acetonide 0.1 % cream 2022-0 317 00:00: 00 Yes [id number] Apply to area(s) 2 (two) times daily. [facility] albuterol 90 mcg/actuati on inhaler 2022-0 317 00:00: 00 Yes [id number] 2{puff} Inhale 2 Puffs every 6 (six) hours as needed for Wheezing. [facility] triamcinolo ne acetonide 0.1 % cream 2022-0 317 00:00: 00 Yes [id number] Apply to area(s) 2 (two) times daily. [facility] al[facility]ol 90 mcg/actuati on inhaler 2022-0 3-17 00:00: 00 Yes [id number] 2{puff} Inhale 2 Puffs every 6 (six) hours as needed for Wheezing. [facility] triamcinolo ne acetonide 0.1 % cream 2022-0 317 00:00: 00 Yes [id number] Apply to area(s) 2 (two) times daily. [facility] al[facility]erol 90 mcg/actuati on inhaler 2022-0 317 00:00: 00 Yes [id number] 2{puff} Inhale 2 Puffs every 6 (six) hours as needed for Wheezing. [facility] triamcinolo ne acetonide 0.1 % cream 2022-0 317 00:00: 00 Yes [id number] Apply to area(s) 2 (two) times daily. [facility] albuterol 90 mcg/actuati on inhaler 2022-0 317 00:00: 00 Yes [id number] 2{puff} Inhale 2 Puffs every 6 (six) hours as needed for Wheezing. [facility] triamcinolo ne acetonide 0.1 % cream 2022-0 317 00:00: 00 Yes [id number] Apply to area(s) 2 (two) times daily. [facility] albuterol 90 mcg/actuati on inhaler 2022-0 317 00:00: 00 Yes [id number] 2{puff} Inhale 2 Puffs every 6 (six) hours as needed for Wheezing. [facility] triamcinolo ne acetonide 0.1 % cream 2022-0 3-17 00:00: 00 Yes [id number] Apply to area(s) 2 (two) times daily. [facility] albuterol 90 mcg/actuati on inhaler 3-0 3-17 00:00: 00 Yes [id number] 2{puff} Inhale 2 Puffs every 6 (six) hours as needed for Wheezing. [facility] triamcinolo ne acetonide 0.1 % cream 2022-0 3-17 00:00: 00 Yes [id number] Apply to area(s) 2 (two) times daily. [facility] albuterol 90 mcg/actuati on inhaler 2022-0 3-17 00:00: 00 Yes [id number] 2{puff} Inhale 2 Puffs every 6 (six) hours as needed for Wheezing. [facility] triamcinolo ne acetonide 0.1 % cream 2022-0 3-17 00:00: 00 Yes [id number] Apply to area(s) 2 (two) times daily. [facility] triamcinolo ne acetonide 0.1 % cream 2022-0 3-17 00:00: 00 Yes [id number] Apply to area(s) 2 (two) times daily. [facility] triamcinolo ne acetonide 0.1 % cream 2022-0 3-17 00:00: 00 Yes [id number] Apply to area(s) 2 (two) times daily. [facility] triamcinolo ne acetonide 0.1 % cream 2022-0 3-17 00:00: 00 Yes [id number] Apply to area(s) 2 (two) times daily. [facility] triamcinolo ne acetonide 0.1 % cream 2022-0 3-17 00:00: 00 Yes [id number] Apply to area(s) 2 (two) times daily. [facility] triamcinolo ne acetonide 0.1 % cream 2022-0 3-17 00:00: 00 Yes [id number] Apply to area(s) 2 (two) times daily. [facility] triamcinolo ne acetonide 0.1 % cream 2022-0 3-17 00:00: 00 Yes [id number] Apply to area(s) 2 (two) times daily. [facility] triamcinolo ne acetonide 0.1 % cream 3-0 3-17 00:00: 00 Yes [id number] Apply to area(s) 2 (two) times daily. [facility] triamcinolo ne acetonide 0.1 % cream 2022-0 317 00:00: 00 Yes [id number] Apply to area(s) 2 (two) times daily. [facility] triamcinolo ne acetonide 0.1 % cream 2022-0 317 00:00: 00 Yes [id number] Apply to area(s) 2 (two) times daily. [facility] triamcinolo ne acetonide 0.1 % cream 2022-0 317 00:00: 00 Yes [id number] Apply to area(s) 2 (two) times daily. [facility] triamcinolo ne acetonide 0.1 % cream 2022-0 17 00:00: 00 Yes [id number] Apply to area(s) 2 (two) times daily. [facility] triamcinolo ne acetonide 0.1 % cream 2022-0 17 00:00: 00 Yes [id number] Apply to area(s) 2 (two) times daily. [facility] benzonatate 100 mg capsule 2022-0 17 00:00: 00 Yes [id number] 200mg Take 2 capsules by mouth every 8 (eight) hours as needed for Cough. [facility] albuterol 90 mcg/actuati on inhaler 2022-0 17 00:00: 00 Yes [id number] 2{puff} Inhale 2 Puffs every 6 (six) hours as needed for Wheezing. [facility] triamcinolo ne acetonide 0.1 % cream 2022-0 17 00:00: 00 Yes [id number] Apply to area(s) 2 (two) times daily. [facility] benzonatate 100 mg capsule 2022-0 317 00:00: 00 Yes [id number] 200mg Take 2 capsules by mouth every 8 (eight) hours as needed for Cough. [facility] albuterol 90 mcg/actuati on inhaler 3-0 17 00:00: 00 Yes [id number] 2{puff} Inhale 2 Puffs every 6 (six) hours as needed for Wheezing. [facility] triamcinolo ne acetonide 0.1 % cream 2022-0 317 00:00: 00 Yes [id number] Apply to area(s) 2 (two) times daily. [facility] benzonatate 100 mg capsule 0 17 00:00: 00 Yes [id number] 200mg Take 2 capsules by mouth every 8 (eight) hours as needed for Cough. [facility] albuterol 90 mcg/actuati on inhaler 0 17 00:00: 00 Yes [id number] 2{puff} Inhale 2 Puffs every 6 (six) hours as needed for Wheezing. [facility] triamcinolo ne acetonide 0.1 % cream 0 17 00:00: 00 Yes [id number] Apply to area(s) 2 (two) times daily. [facility] benzonatate 100 mg capsule 0 17 00:00: 00 Yes [id number] 200mg Take 2 capsules by mouth every 8 (eight) hours as needed for Cough. [facility] albuterol 90 mcg/actuati on inhaler 0 17 00:00: 00 Yes [id number] 2{puff} Inhale 2 Puffs every 6 (six) hours as needed for Wheezing. [facility] triamcinolo ne acetonide 0.1 % cream 0 17 00:00: 00 Yes [id number] Apply to area(s) 2 (two) times daily. [facility] triamcinolo ne acetonide 0.1 % cream 2022-0 17 00:00: 00 08-11 00:00 :00 No [id number] Apply to area(s) 2 (two) times daily. [facility] triamcinolo ne acetonide 0.1 % cream 2022-0 17 00:00: 00 08-11 00:00 :00 No [id number] Apply to area(s) 2 (two) times daily. [facility] triamcinolo ne acetonide 0.1 % cream 2022-0 317 00:00: 00 08-11 00:00 :00 No [id number] Apply to area(s) 2 (two) times daily. [facility] albuterol 90 mcg/actuati on inhaler 0 317 00:00: 00 06-06 00:00 :00 No [id number] 2{puff} Inhale 2 Puffs every 6 (six) hours as needed for Wheezing. [facility] benzonatate 100 mg capsule 2022-0 317 00:00: 00 02-03 00:00 :00 No [id number] 200mg Take 2 capsules by mouth every 8 (eight) hours as needed for Cough. [facility] benzonatate 100 mg capsule 2022-0 17 00:00: 00 02-03 00:00 :00 No [id number] 200mg Take 2 capsules by mouth every 8 (eight) hours as needed for Cough. [facility] predniSONE 20 mg tablet 2022-0 17 00:00: 00 01-09 04:59 :00 No [id number] 20mg Take 1 tablet by mouth in the morning for 5 days. [facility] predniSONE 20 mg tablet 2022-0 17 00:00: 00 01-09 04:59 :00 No [id number] 20mg Take 1 tablet by mouth in the morning for 5 days. [facility] predniSONE 20 mg tablet 2022-0 317 00:00: 00 01-09 04:59 :00 No [id number] 20mg Take 1 tablet by mouth in the morning for 5 days. [facility] predniSONE 20 mg tablet 2022-0 17 00:00: 00 01-09 04:59 :00 No [id number] 20mg Take 1 tablet by mouth in the morning for 5 days. [facility] albuterol (VENTOLIN HFA) 90 mcg/actuati on inhaler 14 00:00: 00 Yes [id number] INHALE 2 PUFFS BY MOUTH EVERY 6 HOURS NEEDED FOR WHEEZING [facility] albuterol (VENTOLIN HFA) 90 mcg/actuati on inhaler 0 314 00:00: 00 Yes [id number] INHALE 2 PUFFS BY MOUTH EVERY 6 HOURS NEEDED FOR WHEEZING [facility] albuterol (VENTOLIN HFA) 90 mcg/actuati on inhaler 3-14 00:00: 00 Yes [id number] INHALE 2 PUFFS BY MOUTH EVERY 6 HOURS NEEDED FOR WHEEZING [facility] albuterol (VENTOLIN HFA) 90 mcg/actuati on inhaler 3-14 00:00: 00 Yes [id number] INHALE 2 PUFFS BY MOUTH EVERY 6 HOURS NEEDED FOR WHEEZING [facility] albuterol (VENTOLIN HFA) 90 mcg/actuati on inhaler 3-14 00:00: 00 Yes [id number] INHALE 2 PUFFS BY MOUTH EVERY 6 HOURS NEEDED FOR WHEEZING [facility] albuterol (VENTOLIN HFA) 90 mcg/actuati on inhaler 314 00:00: 00 Yes [id number] INHALE 2 PUFFS BY MOUTH EVERY 6 HOURS NEEDED FOR WHEEZING [facility] albuterol (VENTOLIN HFA) 90 mcg/actuati on inhaler 3-14 00:00: 00 Yes [id number] INHALE 2 PUFFS BY MOUTH EVERY 6 HOURS NEEDED FOR WHEEZING [facility] albuterol (VENTOLIN HFA) 90 mcg/actuati on inhaler 3-14 00:00: 00 Yes [id number] INHALE 2 PUFFS BY MOUTH EVERY 6 HOURS NEEDED FOR WHEEZING [facility] albuterol (VENTOLIN HFA) 90 mcg/actuati on inhaler 3-14 00:00: 00 Yes [id number] INHALE 2 PUFFS BY MOUTH EVERY 6 HOURS NEEDED FOR WHEEZING [facility] albuterol (VENTOLIN HFA) 90 mcg/actuati on inhaler 3-14 00:00: 00 Yes [id number] INHALE 2 PUFFS BY MOUTH EVERY 6 HOURS NEEDED FOR WHEEZING [facility] albuterol (VENTOLIN HFA) 90 mcg/actuati on inhaler 3-14 00:00: 00 Yes [id number] INHALE 2 PUFFS BY MOUTH EVERY 6 HOURS NEEDED FOR WHEEZING [facility] albuterol (VENTOLIN HFA) 90 mcg/actuati on inhaler 314 00:00: 00 Yes [id number] INHALE 2 PUFFS BY MOUTH EVERY 6 HOURS NEEDED FOR WHEEZING [facility] albuterol (VENTOLIN HFA) 90 mcg/actuati on inhaler 314 00:00: 00 Yes [id number] INHALE 2 PUFFS BY MOUTH EVERY 6 HOURS NEEDED FOR WHEEZING [facility] (VENTOLIN HFA) 90 mcg/actuati on inhaler 14 00:00: 00 Yes [id number] INHALE 2 PUFFS BY MOUTH EVERY 6 HOURS NEEDED FOR WHEEZING [facility] albuterol (VENTOLIN HFA) 90 mcg/actuati on inhaler 12-31 00:00: 00 03-08 23:29 :11 No [id number] INHALE 2 PUFFS BY MOUTH EVERY 6 HOURS NEEDED FOR WHEEZING [facility] dextroamphe tamine-amph etamine (ADDERALL) 30 mg tablet 12-09 00:00: 00 Yes [id number] 30mg Take 1 tablet by mouth in the morning and 1 tablet in the evening. [facility] dextroamphe tamine-amph etamine (ADDERALL) 30 mg tablet 12-09 00:00: 00 Yes [id number] 30mg Take 1 tablet by mouth in the morning and 1 tablet in the evening. [facility] dextroamphe tamine-amph etamine (ADDERALL) 30 mg tablet 12-09 00:00: 00 Yes [id number] 30mg Take 1 tablet by mouth in the morning and 1 tablet in the evening. [facility] dextroamphe tamine-amph etamine (ADDERALL) 30 mg tablet 12-09 00:00: 00 Yes [id number] 30mg Take 1 tablet by mouth in the morning and 1 tablet in the evening. [facility] dextroamphe tamine-amph etamine (ADDERALL) 30 mg tablet 12-09 00:00: 00 Yes [id number] 30mg Take 1 tablet by mouth in the morning and 1 tablet in the evening. [facility] dextroamphe tamine-amph etamine (ADDERALL) 30 mg tablet 12-09 00:00: 00 Yes [id number] 30mg Take 1 tablet by mouth in the morning and 1 tablet in the evening. [facility] dextroamphe tamine-amph etamine (ADDERALL) 30 mg tablet 12-09 00:00: 00 Yes [id number] 30mg Take 1 tablet by mouth in the morning and 1 tablet in the evening. [facility] dextroamphe tamine-amph etamine (ADDERALL) 30 mg tablet 12-09 00:00: 00 Yes [id number] 30mg Take 1 tablet by mouth in the morning and 1 tablet in the evening. [facility] dextroamphe tamine-amph etamine (ADDERALL) 30 mg tablet 12-09 00:00: 00 01-06 00:00 :00 No [id number] 30mg Take 1 tablet by mouth in the morning and 1 tablet in the evening. [facility] azelastine 137 mcg (0.1 %) nasal spray 12-06 00:00: 00 Yes [id number] 1{spray } Use 1 Dania in each nostril in the morning and 1 Dania in the evening. Use in each nostril as directed [facility] azelastine 137 mcg (0.1 %) nasal spray 12-06 00:00: 00 Yes [id number] 1{spray } Use 1 Dania in each nostril in the morning and 1 Dania in the evening. Use in each nostril as directed [facility] azelastine 137 mcg (0.1 %) nasal spray 12-06 00:00: 00 Yes [id number] 1{spray } Use 1 Dania in each nostril in the morning and 1 Dania in the evening. Use in each nostril as directed [facility] azelastine 137 mcg (0.1 %) nasal spray 12-06 00:00: 00 Yes [id number] 1{spray } Use 1 Dania in each nostril in the morning and 1 Dania in the evening. Use in each nostril as directed [facility] azelastine 137 mcg (0.1 %) nasal spray 12-06 00:00: 00 Yes [id number] 1{spray } Use 1 Dania in each nostril in the morning and 1 Dania in the evening. Use in each nostril as directed [facility] azelastine 137 mcg (0.1 %) nasal spray 12-06 00:00: 00 Yes [id number] 1{spray } Use 1 Dania in each nostril in the morning and 1 Dania in the evening. Use in each nostril as directed [facility] methylPREDN ISolone (MEDROL, ADAM,) 4 mg tablets 12-06 00:00: 00 Yes [id number] Take by mouth SEE-INSTRU CTIONS. follow package directions [facility] azelastine 137 mcg (0.1 %) nasal spray 12-06 00:00: 00 Yes [id number] 1{spray } Use 1 Dania in each nostril in the morning and 1 Dania in the evening. Use in each nostril as directed [facility] albuterol 90 mcg/actuati on inhaler 12-06 00:00: 00 Yes [id number] 2{puff} Inhale 2 Puffs every 6 (six) hours as needed for Wheezing. [facility] benzonatate (TESSALON PERLES) 100 mg capsule 12-06 00:00: 00 Yes [id number] 100mg Take 1 capsule by mouth every 8 (eight) hours as needed for Cough. [facility] methylPREDN ISolone (MEDROL, ADAM,) 4 mg tablets 12-06 00:00: 00 Yes [id number] Take by mouth SEE-INSTRU CTIONS. follow package directions [facility] azelastine 137 mcg (0.1 %) nasal spray 12-06 00:00: 00 Yes [id number] 1{spray } Use 1 Dania in each nostril in the morning and 1 Dania in the evening. Use in each nostril as directed [facility] albuterol 90 mcg/actuati on inhaler 12-06 00:00: 00 Yes [id number] 2{puff} Inhale 2 Puffs every 6 (six) hours as needed for Wheezing. [facility] benzonatate (TESSALON PERLES) 100 mg capsule 12-06 00:00: 00 Yes [id number] 100mg Take 1 capsule by mouth every 8 (eight) hours as needed for Cough. [facility] methylPREDN ISolone (MEDROL, ADAM,) 4 mg tablets 12-06 00:00: 00 Yes [id number] Take by mouth SEE-INSTRU CTIONS. follow package directions [facility] azelastine 137 mcg (0.1 %) nasal spray 12-06 00:00: 00 Yes [id number] 1{spray } Use 1 Dania in each nostril in the morning and 1 Dania in the evening. Use in each nostril as directed [facility] albuterol 90 mcg/actuati on inhaler 12-06 00:00: 00 Yes [id number] 2{puff} Inhale 2 Puffs every 6 (six) hours as needed for Wheezing. [facility] benzonatate (TESSALON PERLES) 100 mg capsule 12-06 00:00: 00 Yes [id number] 100mg Take 1 capsule by mouth every 8 (eight) hours as needed for Cough. [facility] methylPREDN ISolone (MEDROL, ADAM,) 4 mg tablets 12-06 00:00: 00 Yes [id number] Take by mouth SEE-INSTRU CTIONS. follow package directions [facility] azelastine 137 mcg (0.1 %) nasal spray 12-06 00:00: 00 Yes [id number] 1{spray } Use 1 Dania in each nostril in the morning and 1 Dania in the evening. Use in each nostril as directed [facility] benzonatate (TESSALON PERLES) 100 mg capsule 12-06 00:00: 00 Yes [id number] 100mg Take 1 capsule by mouth every 8 (eight) hours as needed for Cough. [facility] methylPREDN ISolone (MEDROL, ADAM,) 4 mg tablets 0 17 00:00: 00 Yes [id number] Take by mouth SEE-INSTRU CTIONS. follow package directions [facility] azelastine 137 mcg (0.1 %) nasal spray 0 -17 00:00: 00 Yes [id number] 1{spray } Use 1 Dania in each nostril in the morning and 1 Dania in the evening. Use in each nostril as directed [facility] benzonatate (TESSALON PERLES) 100 mg capsule 0 12-06 00:00: 00 Yes [id number] 100mg Take 1 capsule by mouth every 8 (eight) hours as needed for Cough. [facility] methylPREDN ISolone (MEDROL, ADAM,) 4 mg tablets 2022-0 12-06 00:00: 00 Yes [id number] Take by mouth SEE-INSTRU CTIONS. follow package directions [facility] azelastine 137 mcg (0.1 %) nasal spray 12-06 00:00: 00 Yes [id number] 1{spray } Use 1 Dania in each nostril in the morning and 1 Dania in the evening. Use in each nostril as directed [facility] benzonatate (TESSALON PERLES) 100 mg capsule 2022-0 12-06 00:00: 00 Yes [id number] 100mg Take 1 capsule by mouth every 8 (eight) hours as needed for Cough. [facility] methylPREDN ISolone (MEDROL, ADAM,) 4 mg tablets 2022-0 17 00:00: 00 Yes [id number] Take by mouth SEE-INSTRU CTIONS. follow package directions [facility] azelastine 137 mcg (0.1 %) nasal spray 0 -17 00:00: 00 Yes [id number] 1{spray } Use 1 Dania in each nostril in the morning and 1 Dania in the evening. Use in each nostril as directed [facility] benzonatate (TESSALON PERLES) 100 mg capsule 2022-0 17 00:00: 00 Yes [id number] 100mg Take 1 capsule by mouth every 8 (eight) hours as needed for Cough. [facility] methylPREDN ISolone (MEDROL, ADAM,) 4 mg tablets 0 -17 00:00: 00 Yes [id number] Take by mouth SEE-INSTRU CTIONS. follow package directions [facility] azelastine 137 mcg (0.1 %) nasal spray - 00:00: 00 Yes [id number] 1{spray } Use 1 Dania in each nostril in the morning and 1 Dania in the evening. Use in each nostril as directed [facility] benzonatate (TESSALON PERLES) 100 mg capsule 12-06 00:00: 00 Yes [id number] 100mg Take 1 capsule by mouth every 8 (eight) hours as needed for Cough. [facility] methylPREDN ISolone (MEDROL, ADAM,) 4 mg tablets 0 12-06 00:00: 00 Yes [id number] Take by mouth SEE-INSTRU CTIONS. follow package directions [facility] azelastine 137 mcg (0.1 %) nasal spray 0 12-06 00:00: 00 Yes [id number] 1{spray } Use 1 Dania in each nostril in the morning and 1 Dania in the evening. Use in each nostril as directed [facility] benzonatate (TESSALON PERLES) 100 mg capsule 2022-0 - 00:00: 00 Yes [id number] 100mg Take 1 capsule by mouth every 8 (eight) hours as needed for Cough. [facility] methylPREDN ISolone (MEDROL, ADAM,) 4 mg tablets 2022-0 - 00:00: 00 Yes [id number] Take by mouth SEE-INSTRU CTIONS. follow package directions [facility] azelastine 137 mcg (0.1 %) nasal spray 0 -17 00:00: 00 Yes [id number] 1{spray } Use 1 Dania in each nostril in the morning and 1 Dania in the evening. Use in each nostril as directed [facility] benzonatate (TESSALON PERLES) 100 mg capsule 12-06 00:00: 00 Yes [id number] 100mg Take 1 capsule by mouth every 8 (eight) hours as needed for Cough. [facility] methylPREDN ISolone (MEDROL, ADAM,) 4 mg tablets 12-06 00:00: 00 Yes [id number] Take by mouth SEE-INSTRU CTIONS. follow package directions [facility] azelastine 137 mcg (0.1 %) nasal spray 12-06 00:00: 00 Yes [id number] 1{spray } Use 1 Dania in each nostril in the morning and 1 Dania in the evening. Use in each nostril as directed [facility] benzonatate (TESSALON PERLES) 100 mg capsule 12-06 00:00: 00 Yes [id number] 100mg Take 1 capsule by mouth every 8 (eight) hours as needed for Cough. [facility] azelastine 137 mcg (0.1 %) nasal spray 12-06 00:00: 00 Yes [id number] 1{spray } Use 1 Dania in each nostril in the morning and 1 Dania in the evening. Use in each nostril as directed [facility] azelastine 137 mcg (0.1 %) nasal spray 12-06 00:00: 00 Yes [id number] 1{spray } Use 1 Dania in each nostril in the morning and 1 Dania in the evening. Use in each nostril as directed [facility] azelastine 137 mcg (0.1 %) nasal spray 12-06 00:00: 00 Yes [id number] 1{spray } Use 1 Dania in each nostril in the morning and 1 Dania in the evening. Use in each nostril as directed [facility] azelastine 137 mcg (0.1 %) nasal spray 12-06 00:00: 00 Yes [id number] 1{spray } Use 1 Dania in each nostril in the morning and 1 Dania in the evening. Use in each nostril as directed [facility] azelastine 137 mcg (0.1 %) nasal spray 17 00:00: 00 Yes [id number] 1{spray } Use 1 Dania in each nostril in the morning and 1 Dania in the evening. Use in each nostril as directed [facility] azelastine 137 mcg (0.1 %) nasal spray 17 00:00: 00 Yes [id number] 1{spray } Use 1 Dania in each nostril in the morning and 1 Dania in the evening. Use in each nostril as directed [facility] azelastine 137 mcg (0.1 %) nasal spray 12-06 00:00: 00 Yes [id number] 1{spray } Use 1 Dania in each nostril in the morning and 1 Dania in the evening. Use in each nostril as directed [facility] azelastine 137 mcg (0.1 %) nasal spray 12-06 00:00: 00 Yes [id number] 1{spray } Use 1 Dania in each nostril in the morning and 1 Dania in the evening. Use in each nostril as directed [facility] azelastine 137 mcg (0.1 %) nasal spray 12-06 00:00: 00 Yes [id number] 1{spray } Use 1 Dania in each nostril in the morning and 1 Dania in the evening. Use in each nostril as directed [facility] azelastine 137 mcg (0.1 %) nasal spray 12-06 00:00: 00 Yes [id number] 1{spray } Use 1 Dania in each nostril in the morning and 1 Dania in the evening. Use in each nostril as directed [facility] azelastine 137 mcg (0.1 %) nasal spray 17 00:00: 00 Yes [id number] 1{spray } Use 1 Dania in each nostril in the morning and 1 Dania in the evening. Use in each nostril as directed [facility] azelastine 137 mcg (0.1 %) nasal spray 17 00:00: 00 Yes [id number] 1{spray } Use 1 Dania in each nostril in the morning and 1 Dania in the evening. Use in each nostril as directed [facility] azelastine 137 mcg (0.1 %) nasal spray 12-06 00:00: 00 Yes [id number] 1{spray } Use 1 Dania in each nostril in the morning and 1 Dania in the evening. Use in each nostril as directed [facility] azelastine 137 mcg (0.1 %) nasal spray 12-06 00:00: 00 Yes [id number] 1{spray } Use 1 Dania in each nostril in the morning and 1 Dania in the evening. Use in each nostril as directed [facility] azelastine 137 mcg (0.1 %) nasal spray 12-06 00:00: 00 Yes [id number] 1{spray } Use 1 Dania in each nostril in the morning and 1 Dania in the evening. Use in each nostril as directed [facility] azelastine 137 mcg (0.1 %) nasal spray 12-06 00:00: 00 Yes [id number] 1{spray } Use 1 Dania in each nostril in the morning and 1 Dania in the evening. Use in each nostril as directed [facility] azelastine 137 mcg (0.1 %) nasal spray 12-06 00:00: 00 Yes [id number] 1{spray } Use 1 Dania in each nostril in the morning and 1 Dania in the evening. Use in each nostril as directed [facility] azelastine 137 mcg (0.1 %) nasal spray 12-06 00:00: 00 Yes [id number] 1{spray } Use 1 Dania in each nostril in the morning and 1 Dania in the evening. Use in each nostril as directed [facility] azelastine 137 mcg (0.1 %) nasal spray 12-06 00:00: 00 Yes [id number] 1{spray } Use 1 Dania in each nostril in the morning and 1 Dania in the evening. Use in each nostril as directed [facility] azelastine 137 mcg (0.1 %) nasal spray 12-06 00:00: 00 Yes [id number] 1{spray } Use 1 Dania in each nostril in the morning and 1 Dania in the evening. Use in each nostril as directed [facility] azelastine 137 mcg (0.1 %) nasal spray 12-06 00:00: 00 Yes [id number] 1{spray } Use 1 Dania in each nostril in the morning and 1 Dania in the evening. Use in each nostril as directed [facility] azelastine 137 mcg (0.1 %) nasal spray 12-06 00:00: 00 08-11 00:00 :00 No [id number] 1{spray } Use 1 Dania in each nostril in the morning and 1 Dania in the evening. Use in each nostril as directed [facility] azelastine 137 mcg (0.1 %) nasal spray 12-06 00:00: 00 08-11 00:00 :00 No [id number] 1{spray } Use 1 Dania in each nostril in the morning and 1 Dania in the evening. Use in each nostril as directed [facility] azelastine 137 mcg (0.1 %) nasal spray 12-06 00:00: 00 08-11 00:00 :00 No [id number] 1{spray } Use 1 Dania in each nostril in the morning and 1 Dania in the evening. Use in each nostril as directed [facility] benzonatate (TESSALON PERLES) 100 mg capsule 12-06 00:00: 00 02-03 00:00 :00 No [id number] 100mg Take 1 capsule by mouth every 8 (eight) hours as needed for Cough. [facility] methylPREDN ISolone (MEDROL, ADAM,) 4 mg tablets 12-06 00:00: 00 02-03 00:00 :00 No [id number] Take by mouth SEE-INSTRU CTIONS. follow package directions [facility] benzonatate (TESSALON PERLES) 100 mg capsule 12-06 00:00: 00 02-03 00:00 :00 No [id number] 100mg Take 1 capsule by mouth every 8 (eight) hours as needed for Cough. [facility] methylPREDN ISolone (MEDROL, ADAM,) 4 mg tablets 12-06 00:00: 00 02-03 00:00 :00 No [id number] Take by mouth SEE-INSTRU CTIONS. follow package directions [facility] albuterol 90 mcg/actuati on inhaler 12-06 00:00: 00 12-31 00:00 :00 No [id number] 2{puff} Inhale 2 Puffs every 6 (six) hours as needed for Wheezing. [facility] albuterol 90 mcg/actuati on inhaler 12-06 00:00: 00 12-31 00:00 :00 No [id number] 2{puff} Inhale 2 Puffs every 6 (six) hours as needed for Wheezing. [facility] triamcinolo ne acetonide 0.1 % cream 11-20 00:00: 00 Yes [id number] Apply to area(s) 2 (two) times daily. [facility] triamcinolo ne acetonide 0.1 % cream 11-20 00:00: 00 Yes [id number] Apply to area(s) 2 (two) times daily. [facility] triamcinolo ne acetonide 0.1 % cream 2 00:00: 00 Yes [id number] Apply to area(s) 2 (two) times daily. [facility] triamcinolo ne acetonide 0.1 % cream 2 00:00: 00 Yes [id number] Apply to area(s) 2 (two) times daily. [facility] triamcinolo ne acetonide 0.1 % cream 2 00:00: 00 Yes [id number] Apply to area(s) 2 (two) times daily. [facility] triamcinolo ne acetonide 0.1 % cream 2- 00:00: 00 Yes [id number] Apply to area(s) 2 (two) times daily. [facility] triamcinolo ne acetonide 0.1 % cream 2- 00:00: 00 Yes [id number] Apply to area(s) 2 (two) times daily. [facility] triamcinolo ne acetonide 0.1 % cream 2- 00:00: 00 Yes [id number] Apply to area(s) 2 (two) times daily. [facility] triamcinolo ne acetonide 0.1 % cream 2- 00:00: 00 Yes [id number] Apply to area(s) 2 (two) times daily. [facility] triamcinolo ne acetonide 0.1 % cream 2 00:00: 00 01-03 00:00 :00 No [id number] Apply to area(s) 2 (two) times daily. [facility] triamcinolo ne acetonide 0.1 % cream 2 00:00: 00 01-03 00:00 :00 No [id number] Apply to area(s) 2 (two) times daily. [facility] sulfamethox azole-trime thoprim 800-160 mg per tablet - 00:00: 00 Yes [facility] sulfamethox azole-trime thoprim 800-160 mg per tablet - 00:00: 00 Yes [facility] sulfamethox azole-trime thoprim 800-160 mg per tablet 11-19 00:00: 00 12-06 00:00 :00 No [facility] sulfamethox azole-trime thoprim 800-160 mg per tablet 11-19 00:00: 00 12-06 00:00 :00 No [facility] hydrOXYzine 25 mg tablet 1- 00:00: 00 Yes TAKE 1-2 TABLET BY MOUTH FOR SLEEP [facility] hydrOXYzine 25 mg tablet 0 11-15 00:00: 00 Yes TAKE 1-2 TABLET BY MOUTH FOR SLEEP [facility] hydrOXYzine 25 mg tablet 0 11-15 00:00: 00 Yes TAKE 1-2 TABLET BY MOUTH FOR SLEEP [facility] hydrOXYzine 25 mg tablet 0 11-15 00:00: 00 Yes TAKE 1-2 TABLET BY MOUTH FOR SLEEP [facility] hydrOXYzine 25 mg tablet 0 11-15 00:00: 00 Yes TAKE 1-2 TABLET BY MOUTH FOR SLEEP [facility] hydrOXYzine 25 mg tablet 0 11-15 00:00: 00 Yes TAKE 1-2 TABLET BY MOUTH FOR SLEEP [facility] hydrOXYzine 25 mg tablet 0 11-15 00:00: 00 Yes TAKE 1-2 TABLET BY MOUTH FOR SLEEP [facility] hydrOXYzine 25 mg tablet 0 11-15 00:00: 00 Yes TAKE 1-2 TABLET BY MOUTH FOR SLEEP [facility] hydrOXYzine 25 mg tablet 0 11-15 00:00: 00 Yes TAKE 1-2 TABLET BY MOUTH FOR SLEEP [facility] hydrOXYzine 25 mg tablet 0 11-15 00:00: 00 Yes TAKE 1-2 TABLET BY MOUTH FOR SLEEP [facility] hydrOXYzine 25 mg tablet 0 11-15 00:00: 00 Yes TAKE 1-2 TABLET BY MOUTH FOR SLEEP [facility] hydrOXYzine 25 mg tablet 0 11-15 00:00: 00 Yes TAKE 1-2 TABLET BY MOUTH FOR SLEEP [facility] hydrOXYzine 25 mg tablet 0 11-15 00:00: 00 Yes TAKE 1-2 TABLET BY MOUTH FOR SLEEP [facility] hydrOXYzine 25 mg tablet 0 11-15 00:00: 00 Yes TAKE 1-2 TABLET BY MOUTH FOR SLEEP [facility] hydrOXYzine 25 mg tablet 0 11-15 00:00: 00 02-03 00:00 :00 No TAKE 1-2 TABLET BY MOUTH FOR SLEEP [facility] hydrOXYzine 25 mg tablet 11-15 00:00: 00 02-03 00:00 :00 No TAKE 1-2 TABLET BY MOUTH FOR SLEEP [facility] mupirocin 2 % ointment 11-14 00:00: 00 Yes APPLY SPARINGLY TOPICALLY TO THE AFFECTED AREA TWICE DAILY [facility] mupirocin 2 % ointment 11-14 00:00: 00 Yes APPLY SPARINGLY TOPICALLY TO THE AFFECTED AREA TWICE DAILY [facility] mupirocin 2 % ointment 0 11-14 00:00: 00 Yes APPLY SPARINGLY TOPICALLY TO THE AFFECTED AREA TWICE DAILY [facility] mupirocin 2 % ointment 0 11-14 00:00: 00 Yes APPLY SPARINGLY TOPICALLY TO THE AFFECTED AREA TWICE DAILY [facility] mupirocin 2 % ointment 11-14 00:00: 00 Yes APPLY SPARINGLY TOPICALLY TO THE AFFECTED AREA TWICE DAILY [facility] mupirocin 2 % ointment 0 11-14 00:00: 00 Yes APPLY SPARINGLY TOPICALLY TO THE AFFECTED AREA TWICE DAILY [facility] mupirocin 2 % ointment 0 11-14 00:00: 00 Yes APPLY SPARINGLY TOPICALLY TO THE AFFECTED AREA TWICE DAILY [facility] mupirocin 2 % ointment 0 11-14 00:00: 00 Yes APPLY SPARINGLY TOPICALLY TO THE AFFECTED AREA TWICE DAILY [facility] mupirocin 2 % ointment 0 11-14 00:00: 00 Yes APPLY SPARINGLY TOPICALLY TO THE AFFECTED AREA TWICE DAILY [facility] mupirocin 2 % ointment 0 11-14 00:00: 00 Yes APPLY SPARINGLY TOPICALLY TO THE AFFECTED AREA TWICE DAILY [facility] mupirocin 2 % ointment 0 11-14 00:00: 00 Yes APPLY SPARINGLY TOPICALLY TO THE AFFECTED AREA TWICE DAILY [facility] mupirocin 2 % ointment 11-14 00:00: 00 Yes APPLY SPARINGLY TOPICALLY TO THE AFFECTED AREA TWICE DAILY [facility] mupirocin 2 % ointment 11-14 00:00: 00 Yes APPLY SPARINGLY TOPICALLY TO THE AFFECTED AREA TWICE DAILY [facility] mupirocin 2 % ointment 0 11-14 00:00: 00 Yes APPLY SPARINGLY TOPICALLY TO THE AFFECTED AREA TWICE DAILY [facility] mupirocin 2 % ointment 11-14 00:00: 00 02-03 00:00 :00 No APPLY SPARINGLY TOPICALLY TO THE AFFECTED AREA [facility]ICE [facility] 11-14 00:00: 00 02-03 00:00 :00 No APPLY SPARINGLY TOPICALLY TO THE AFFECTED AREA TWICE DAILY [facility] predni[facility]E 20 mg tablet 11-13 00:00: 00 Yes 20mg Take 20 mg by mouth every morning. [facility] SENNA 8.6 mg tablet 0 11-13 00:00: 00 Yes TAKE 2-4 TABLETS BY MOUTH DIRECTED NEEDED. DO NOT EXCEED 4 TABLETS IN 24 HOURS [facility] mg tablet 0 11-13 00:00: 00 Yes 20mg Take 20 mg by mouth every morning. [facility] SENNA 8.6 mg tablet 0 11-13 00:00: 00 Yes TAKE 2-4 TABLETS BY MOUTH DIRECTED NEEDED. DO NOT EXCEED 4 TABLETS IN 24 HOURS [facility] SENNA 8.6 mg tablet 0 11-13 00:00: 00 Yes TAKE 2-4 TABLETS BY MOUTH DIRECTED NEEDED. DO NOT EXCEED 4 TABLETS IN 24 HOURS [facility] SENNA 8.6 mg tablet 0 11-13 00:00: 00 Yes TAKE 2-4 TABLETS BY MOUTH DIRECTED NEEDED. DO NOT EXCEED 4 TABLETS IN 24 HOURS [facility] SENNA 8.6 mg tablet 0 11-13 00:00: 00 Yes TAKE 2-4 TABLETS BY MOUTH DIRECTED NEEDED. DO NOT EXCEED 4 TABLETS IN 24 HOURS [facility] SENNA 8.6 mg tablet 3-0 25 00:00: 00 Yes TAKE 2-4 TABLETS BY MOUTH DIRECTED NEEDED. DO NOT EXCEED 4 TABLETS IN 24 HOURS [facility] SENNA 8.6 mg tablet 3-0 25 00:00: 00 Yes TAKE 2-4 TABLETS BY MOUTH DIRECTED NEEDED. DO NOT EXCEED 4 TABLETS IN 24 HOURS [facility] SENNA 8.6 mg tablet 3-0 25 00:00: 00 Yes TAKE 2-4 TABLETS BY MOUTH DIRECTED NEEDED. DO NOT EXCEED 4 TABLETS IN 24 HOURS [facility] SENNA 8.6 mg tablet 3-0 25 00:00: 00 Yes TAKE 2-4 TABLETS BY MOUTH DIRECTED NEEDED. DO NOT EXCEED 4 TABLETS IN 24 HOURS [facility] SENNA 8.6 mg tablet 3-0 25 00:00: 00 Yes TAKE 2-4 TABLETS BY MOUTH DIRECTED NEEDED. DO NOT EXCEED 4 TABLETS IN 24 HOURS [facility] SENNA 8.6 mg tablet 3-0 25 00:00: 00 Yes TAKE 2-4 TABLETS BY MOUTH DIRECTED NEEDED. DO NOT EXCEED 4 TABLETS IN 24 HOURS [facility] SENNA 8.6 mg tablet 3-0 25 00:00: 00 Yes TAKE 2-4 TABLETS BY MOUTH DIRECTED NEEDED. DO NOT EXCEED 4 TABLETS IN 24 HOURS [facility] SENNA 8.6 mg tablet 3-0 25 00:00: 00 Yes TAKE 2-4 TABLETS BY MOUTH DIRECTED NEEDED. DO NOT EXCEED 4 TABLETS IN 24 HOURS [facility] SENNA 8.6 mg tablet 3-0 25 00:00: 00 Yes TAKE 2-4 TABLETS BY MOUTH DIRECTED NEEDED. DO NOT EXCEED 4 TABLETS IN 24 HOURS [facility] SENNA 8.6 mg tablet 3-0 25 00:00: 00 [id number] 00:00 :00 No TAKE 2-4 TABLETS BY MOUTH DIRECTED NEEDED. DO NOT EXCEED 4 TABLETS IN 24 HOURS [facility] SENNA 8.6 mg tablet 2022-11-13 00:00: 00 02-03 00:00 :00 No TAKE 2-4 TABLETS BY MOUTH DIRECTED NEEDED. DO NOT EXCEED 4 TABLETS IN 24 HOURS [facility] predniSONE 20 mg tablet 2022-0 11-13 00:00: 00 12-06 00:00 :00 No 20mg Take 20 mg by mouth every morning. [facility] predniSONE 20 mg tablet 2022-0 11-13 00:00: 00 12-06 00:00 :00 No 20mg Take 20 mg by mouth every morning. [facility] omeprazole 40 mg capsule 2022-0 11-11 00:00: 00 Yes TAKE 1 CAPSULE BY MOUTH IN THE MORNING [facility] omeprazole 40 mg capsule 3-0 11-11 00:00: 00 Yes TAKE 1 CAPSULE BY MOUTH IN THE MORNING [facility] omeprazole 40 mg capsule 3-0 11-11 00:00: 00 Yes TAKE 1 CAPSULE BY MOUTH IN THE MORNING [facility] omeprazole 40 mg capsule 3-0 11-11 00:00: 00 Yes TAKE 1 CAPSULE BY MOUTH IN THE MORNING [facility] omeprazole 40 mg capsule 3-0 11-11 00:00: 00 Yes TAKE 1 CAPSULE BY MOUTH IN THE MORNING [facility] omeprazole 40 mg capsule 3-0 11-11 00:00: 00 Yes TAKE 1 CAPSULE BY MOUTH IN THE MORNING [facility] omeprazole 40 mg capsule 3-0 11-11 00:00: 00 Yes TAKE 1 CAPSULE BY MOUTH IN THE MORNING [facility] omeprazole 40 mg capsule 3-0 11-11 00:00: 00 Yes TAKE 1 CAPSULE BY MOUTH IN THE MORNING [facility] omeprazole 40 mg capsule 3-0 11-11 00:00: 00 Yes TAKE 1 CAPSULE BY MOUTH IN THE MORNING [facility] omeprazole 40 mg capsule 3-0 11-11 00:00: 00 Yes TAKE 1 CAPSULE BY MOUTH IN THE MORNING [facility] omeprazole 40 mg capsule 3-0 11-11 00:00: 00 Yes TAKE 1 CAPSULE BY MOUTH IN THE MORNING [facility] omeprazole 40 mg capsule 2022-0 11-11 00:00: 00 Yes TAKE 1 CAPSULE BY MOUTH IN THE MORNING [facility] omeprazole 40 mg capsule 0 11-11 00:00: 00 Yes TAKE 1 CAPSULE BY MOUTH IN THE MORNING [facility] omeprazole 40 mg capsule 2022-0 11-11 00:00: 00 Yes TAKE 1 CAPSULE BY MOUTH IN THE MORNING [facility] omeprazole 40 mg capsule 2022-0 11-11 00:00: 00 02-03 00:00 :00 No TAKE 1 CAPSULE BY MOUTH IN THE MORNING [facility] omeprazole 40 mg capsule 2022-0 11-11 00:00: 00 02-03 00:00 :00 No TAKE 1 CAPSULE BY MOUTH IN THE MORNING [facility] FAMOTIDINE 0 11-05 00:00: 00 No LAMOTRIGINE 2022-0 10-31 00:00: 00 No dextroamphe tamine-amph etamine (ADDERALL) 30 mg tablet 10-30 00:00: 00 Yes [id number] 30mg Take 1 tablet by mouth in the morning and 1 tablet in the evening. [facility] dextroamphe tamine-amph etamine (ADDERALL) 30 mg tablet 10-30 00:00: 00 Yes [id number] 30mg Take 1 tablet by mouth in the morning and 1 tablet in the evening. [facility] dextroamphe tamine-amph etamine (ADDERALL) 30 mg tablet 10-30 00:00: 00 Yes [id number] 30mg Take 1 tablet by mouth in the morning and 1 tablet in the evening. [facility] dextroamphe tamine-amph etamine (ADDERALL) 30 mg tablet 0 10-30 00:00: 00 Yes [id number] 30mg Take 1 tablet by mouth in the morning and 1 tablet in the evening. [facility] dextroamphe tamine-amph etamine (ADDERALL) 30 mg tablet 10-30 00:00: 00 Yes [id number] 30mg Take 1 tablet by mouth in the morning and 1 tablet in the evening. [facility] dextroamphe tamine-amph etamine (ADDERALL) 30 mg tablet 10-30 00:00: 00 Yes [id number] 30mg Take 1 tablet by mouth in the morning and 1 tablet in the evening. [facility] dextroamphe tamine-amph etamine (ADDERALL) 30 mg tablet 10-30 00:00: 00 12-09 00:00 :00 No [id number] 30mg Take 1 tablet by mouth in the morning and 1 tablet in the evening. [facility] acyclovir 400 mg tablet 2021-10 00:00: 00 Yes 400mg Take 400 mg by mouth every 8 (eight) hours. [facility] acyclovir 400 mg tablet 2021-10 00:00: 00 Yes 400mg Take 400 mg by mouth every 8 (eight) hours. [facility] acyclovir 400 mg tablet 2021-10 00:00: 00 Yes 400mg Take 400 mg by mouth every 8 (eight) hours. [facility] acyclovir 400 mg tablet 2021-10 00:00: 00 Yes 400mg Take 400 mg by mouth every 8 (eight) hours. [facility] acyclovir 400 mg tablet 2021-10 00:00: 00 Yes 400mg Take 400 mg by mouth every 8 (eight) hours. [facility] acyclovir 400 mg tablet 2021-10 00:00: 00 Yes 400mg Take 400 mg by mouth every 8 (eight) hours. [facility] acyclovir 400 mg tablet 2021-10 00:00: 00 Yes 400mg Take 400 mg by mouth every 8 (eight) hours. [facility] acyclovir 400 mg tablet 2021-10 00:00: 00 Yes 400mg Take 400 mg by mouth every 8 (eight) hours. [facility] ACYCLOVIR 2021-10 00:00: 00 No acyclovir 400 mg tablet 2021-10 00:00: 00 Yes 400mg Take 400 mg by mouth every 8 (eight) hours. [facility] acyclovir 400 mg tablet 2021-10 00:00: 00 Yes 400mg Take 1 tablet by mouth every 8 (eight) hours. [facility] acyclovir 400 mg tablet 2021-10 00:00: 00 Yes 400mg Take 1 tablet by mouth every 8 (eight) hours. [facility] acyclovir 400 mg tablet 2021-10 00:00: 00 Yes 400mg Take 1 tablet by mouth every 8 (eight) hours. [facility] acyclovir 400 mg tablet 2021-10 00:00: 00 Yes 400mg Take 1 tablet by mouth every 8 (eight) hours. [facility] acyclovir 400 mg tablet 2021-10 00:00: 00 Yes 400mg Take 1 tablet by mouth every 8 (eight) hours. [facility] TAKE 1 TABLET EVERY 8 HOURS DAILY. 2021-10 00:00: 00 No 400 acyclovir 400 mg tablet 2021-10 00:00: 00 02-03 00:00 :00 No 400mg Take 1 tablet by mouth every 8 (eight) hours. [facility] acyclovir 400 mg tablet 2021-10 00:00: 00 02-03 00:00 :00 No 400mg Take 1 tablet by mouth every 8 (eight) hours. [facility] TAKE 1-2 TABLET(S) FOR SLEEP 2021-10 00:00: 00 No 25 HYDROXYZ HCL 2021-10 00:00: 00 No TAKE 1 TABLET DAILY. 2021-10 00:00: 00 No 100 dextroamphe tamine-amph etamine (ADDERALL) 30 mg tablet 2021-10 00:00: 00 Yes [id number] 30mg Take 1 tablet by mouth in the morning and 1 tablet in the evening. [facility] AMPHET/DEXT R 30MG Tablets 2021-10 00:00: 00 No AMPHET/DEXT R 30MG 2021-10 00:00: 00 No 30 dextroamphe tamine-amph etamine (ADDERALL) 30 mg tablet 2021-10 00:00: 00 10-30 00:00 :00 No [id number] 30mg Take 1 tablet by mouth in the morning and 1 tablet in the evening. [facility] FAMOTIDINE 2021-10 00:00: 00 No OMEPRAZOLE 2021-10 00:00: 00 No BUSPIRONE 2021-10 00:00: 00 No TRAMADOL HCL 2021-10 00:00: 00 No TAKE 1 TABLET BY MOUTH EVERY 6 HOURS NEEDED 2021-10 00:00: 00 No 50 dextroamphe tamine-amph etamine (ADDERALL) 30 mg tablet 2021-10 00:00: 00 Yes [id number] 30mg Take 1 tablet by mouth in the morning and 1 tablet in the evening. [facility] dextroamphe tamine-amph etamine (ADDERALL) 30 mg tablet 2021-10 00:00: 00 Yes [id number] 30mg Take 1 tablet by mouth in the morning and 1 tablet in the evening. [facility] dextroamphe tamine-amph etamine (ADDERALL) 30 mg tablet 2021-10 00:00: 00 Yes [id number] 30mg Take 1 tablet by mouth in the morning and 1 tablet in the evening. [facility] dextroamphe tamine-amph etamine (ADDERALL) 30 mg tablet 2021-10 00:00: 00 10-10 00:00 :00 No [id number] 30mg Take 1 tablet by mouth in the morning and 1 tablet in the evening. [facility] TAKE 1 TABLET DAILY. 2021-10 00:00: 00 No 100 TAKE 1 TABLET BY MOUTH TWICE DAILY 2021-10 00:00: 00 No 5 TAKE 1 TABLET AT BEDTIME. 2021-10 00:00: 00 No 100 TAKE 1 TABLET BY MOUTH DAILY 2021-10 00:00: 00 No 100 PANTOPRAZOL E 2021-10 1- 00:00: 00 No dextroamphe tamine-amph etamine (ADDERALL) 20 mg tablet 2021-10 00:00: 00 Yes [id number] 20mg Take 1 tablet by mouth in the morning and 1 tablet in the evening. [facility] TAKE 1 TABLET BY MOUTH IN THE MORNING AND IN THE EVENING 2021-10 00:00: 00 No dextroamphe tamine-amph etamine (ADDERALL) 20 mg tablet 2021-10 00:00: 00 09-25 00:00 :00 No [id number] 20mg Take 1 tablet by mouth in the morning and 1 tablet in the evening. [facility] dextroamphe tamine-amph etamine (ADDERALL) 20 mg tablet 2021-10 00:00: 00 09-25 00:00 :00 No [id number] 20mg Take 1 tablet by mouth in the morning and 1 tablet in the evening. [facility] TRAZODONE 2021-10 0 00:00: 00 No TRAZODONE 2021-10 028 00:00: 00 No dextroamphe tamine-amph etamine (ADDERALL) 20 mg tablet 2021-10 0-24 00:00: 00 Yes [id number] 20mg Take 1 tablet by mouth in the morning and 1 tablet in the evening. [facility] dextroamphe tamine-amph etamine (ADDERALL) 20 mg tablet 2021-10 0-24 00:00: 00 09-04 00:00 :00 No [id number] 20mg Take 1 tablet by mouth in the morning and 1 tablet in the evening. [facility] diazePAM (VALIUM) injection 2 mg 2021-10 0-20 02:15: 00 08-08 02:20 :00 No 2mg 2 mg, Slow IV Push, ONCE, 1 dose, On Fri08/07/22 at 2115, STAT [facility] diazePAM (VALIUM) injection 2 mg 2021-10 020 01:45: 00 08-08 01:43 :00 No 2mg 2 mg, Slow IV Push, ONCE, 1 dose, On Fri08/07/22 at 2045, STAT [facility] NaCl 0.9% (NS) bolus infusion 1,000 mL 2021-10 22:00: 00 08-08 00:30 :00 No 1000mL at 999 mL/hr, 1,000 mL, IV Infusion, ONCE, 1 dose, On Fri08/07/22 at 1700, CAMILA [facility] diazePAM (VALIUM) tablet 5 mg 2021-10 22:00: 00 08-07 21:48 :00 No 5mg 5 mg, Oral, ONCE, 1 dose, On Fri08/07/22 at 1700, CAMILA [facility] AZITHROMYCI N TAB 250MG 07-10 00:00: 00 No METRONIDAZO L TAB 500MG 07-10 00:00: 00 No traZODone 100 mg tablet 07-09 09:29: 11 Yes 100mg Take 100 mg by mouth at bedtime. [facility] traZODone 100 mg tablet 07-09 09:29: 11 Yes 100mg Take 100 mg by mouth at bedtime. [facility] traZODone 100 mg tablet 07-09 09:29: 11 Yes 100mg Take 100 mg by mouth at bedtime. [facility] traZODone 100 mg tablet 07-09 09:29: 11 Yes 100mg Take 100 mg by mouth at bedtime. [facility] traZODone 100 mg tablet 07-09 09:29: 11 Yes 100mg Take 100 mg by mouth at bedtime. [facility] traZODone 100 mg tablet 07-09 09:29: 11 Yes 100mg Take 100 mg by mouth at bedtime. [facility] traZODone 100 mg tablet 07-09 09:29: 11 Yes 100mg Take 100 mg by mouth at bedtime. [facility] traZODone 100 mg tablet 2022-0 -20 09:29: 11 Yes 100mg Take 100 mg by mouth at bedtime. [facility] traZODone 100 mg tablet 2-0 9-20 09:29: 11 Yes 100mg Take 100 mg by mouth at bedtime. [facility] traZODone 100 mg tablet 2-0 -20 09:29: 11 Yes 100mg Take 100 mg by mouth at bedtime. [facility] traZODone 100 mg tablet 2-0 -20 09:29: 11 Yes 100mg Take 100 mg by mouth at bedtime. [facility] traZODone 100 mg tablet 2-0 -20 09:29: 11 Yes 100mg Take 100 mg by mouth at bedtime. [facility] traZODone 100 mg tablet 2-0 -20 09:29: 11 Yes 100mg Take 100 mg by mouth at bedtime. [facility] traZODone 100 mg tablet 2-0 -20 09:29: 11 Yes 100mg Take 100 mg by mouth at bedtime. [facility] traZODone 100 mg tablet 2-0 -20 09:29: 11 Yes 100mg Take 100 mg by mouth at bedtime. [facility] traZODone 100 mg tablet 2021-0 -20 09:29: 11 Yes 100mg Take 100 mg by mouth at bedtime. [facility] traZODone 100 mg tablet 2-0 -20 09:29: 11 Yes 100mg Take 100 mg by mouth at bedtime. [facility] traZODone 100 mg tablet 2-0 9-20 09:29: 11 Yes 100mg Take 100 mg by mouth at bedtime. [facility] traZODone 100 mg tablet 2-0 -20 09:29: 11 Yes 100mg Take 100 mg by mouth at bedtime. [facility] traZODone 100 mg tablet 2-0 9-20 09:29: 11 Yes 100mg Take 100 mg by mouth at bedtime. [facility] traZODone 100 mg tablet 07-09 09:29: 11 Yes 100mg Take 100 mg by mouth at bedtime. [facility] traZODone 100 mg tablet 07-09 09:29: 11 Yes 100mg Take 100 mg by mouth at bedtime. [facility] traZODone 100 mg tablet 07-09 09:29: 11 Yes 100mg Take 100 mg by mouth at bedtime. [facility] clonazePAM 0.5 mg tablet 07-09 09:29: 09 07-09 00:00 :00 No .5mg Take 0.5 mg by mouth at bedtime. [facility] clonazePAM 0.5 mg tablet 07-09 09:29: 07-09 00:00 :00 No .5mg Take 0.5 mg by mouth at bedtime. [facility] OXcarbazepi ne 300 mg tablet 07-09 09:28: 57 07-09 00:00 :00 No 300mg Take 300 mg by mouth at bedtime. [facility] OXcarbazepi ne 300 mg tablet 07-09 09:28: 57 07-09 00:00 :00 No 300mg Take 300 mg by mouth at bedtime. [facility] amoxicillin -clavulanat e (AUGMENTIN) 875-125 mg per tablet 07-09 09:28: 07-09 00:00 :00 No 1{tbl} Take 1 tablet by mouth 2 (two) times daily. [facility] amoxicillin -clavulanat e (AUGMENTIN) 875-125 mg per tablet 07-09 09:28: 07-09 00:00 :00 No 1{tbl} Take 1 tablet by mouth 2 (two) times daily. [facility] dextroamphe tamine-amph etamine (ADDERALL) 20 mg tablet 07-09 00:00: 00 Yes [id number] 20mg Take 1 tablet by mouth in the morning and 1 tablet in the evening. [facility] dextroamphe tamine-amph etamine (ADDERALL) 20 mg tablet 07-09 00:00: 00 Yes [id number] 20mg Take 1 tablet by mouth in the morning and 1 tablet in the evening. [facility] dextroamphe tamine-amph etamine (ADDERALL) 20 mg tablet 07-09 00:00: 00 Yes [id number] 20mg Take 1 tablet by mouth in the morning and 1 tablet in the evening. [facility] dextroamphe tamine-amph etamine (ADDERALL) 20 mg tablet 07-09 00:00: 00 Yes [id number] 20mg Take 1 tablet by mouth in the morning and 1 tablet in the evening. [facility] dextroamphe tamine-amph etamine (ADDERALL) 20 mg tablet 07-09 00:00: 00 Yes [id number] 20mg Take 1 tablet by mouth in the morning and 1 tablet in the evening. [facility] dextroamphe tamine-amph etamine (ADDERALL) 20 mg tablet 07-09 00:00: 00 Yes [id number] 20mg Take 1 tablet by mouth in the morning and 1 tablet in the evening. [facility] dextroamphe tamine-amph etamine (ADDERALL) 20 mg tablet 07-09 00:00: 00 08-12 00:00 :00 No [id number] 20mg Take 1 tablet by mouth in the morning and 1 tablet in the evening. [facility] dextroamphe tamine-amph etamine (ADDERALL) 20 mg tablet 07-09 00:00: 00 07-09 00:00 :00 No [id number] 20mg Take 1 tablet by mouth in the morning and 1 tablet in the evening. [facility] TAKE 1 TABLET BY MOUTH ONCE DAILY 06-05 00:00: 00 No 10 METRONIDAZO L TAB 500MG 8- 00:00: 00 No 500 AZITHROMYCI N TAB 250MG 8- 00:00: 00 No 250 clonazePAM 0.5 mg tablet 06-04 13:20: 16 Yes .5mg Take 0.5 mg by mouth at bedtime. [facility] clonazePAM 0.5 mg tablet 06-04 13:20: 16 Yes .5mg Take 0.5 mg by mouth at bedtime. [facility] traZODone 50 mg tablet 06-04 13:19: 27 06-04 00:00 :00 No 50mg Take 50 mg by mouth at bedtime. [facility] traZODone 50 mg tablet 06-04 13:19: 27 06-04 00:00 :00 No 50mg Take 50 mg by mouth at bedtime. [facility] lithium carbonate 300 mg tablet 06-04 13:17: 48 06-04 00:00 :00 No 900mg Take 900 mg by mouth at bedtime. [facility] lithium carbonate 300 mg tablet 06-04 13:17: 48 06-04 00:00 :00 No 900mg Take 900 mg by mouth at bedtime. [facility] dextroamphe tamine-amph etamine (ADDERALL) 20 mg tablet 06-04 00:00: 00 Yes [id number] 20mg Take 1 tablet by mouth in the morning and 1 tablet in the evening. [facility] dextroamphe tamine-amph etamine (ADDERALL) 20 mg tablet 06-04 00:00: 00 Yes [id number] 20mg Take 1 tablet by mouth in the morning and 1 tablet in the evening. [facility] dextroamphe tamine-amph etamine (ADDERALL) 20 mg tablet 06-04 00:00: 00 07-09 00:00 :00 No [id number] 20mg Take 1 tablet by mouth in the morning and 1 tablet in the evening. [facility] dextroamphe tamine-amph etamine (ADDERALL) 20 mg tablet 06-04 00:00: 00 2022- 09-20 00:00 :00 No [id number] 20mg Take 1 tablet by mouth in the morning and 1 tablet in the evening. [facility] TAKE 1 TABLET BY MOUTH TWICE DAILY 0 -12 00:00: 00 No 20 &lt 0 7-12 00:00: 00 No 100 benzonatate 100 mg capsule 2021-0 7-10 00:00: 00 06-04 00:00 :00 No [id number] 100mg Take 1 capsule by mouth 3 (three) times daily as needed for Cough. [facility] benzonatate 100 mg capsule 2021-0 04-28 00:00: 00 06-04 00:00 :00 No [id number] 100mg Take 1 capsule by mouth 3 (three) times daily as needed for Cough. [facility] lamoTRIgine 25 mg tablet 2021-0 04-18 00:00: 00 Yes 50mg Take 50 mg by mouth in the morning. [facility] lamoTRIgine 25 mg tablet 2021-0 6 00:00: 00 Yes 50mg Take 50 mg by mouth in the morning. [facility] lamoTRIgine 25 mg tablet 2021-0 04-18 00:00: 00 Yes 50mg Take 50 mg by mouth in the morning. [facility] lamoTRIgine 25 mg tablet 2021-0 04-18 00:00: 00 Yes 50mg Take 50 mg by mouth in the morning. [facility] lamoTRIgine 25 mg tablet 2-0 6 00:00: 00 Yes 50mg Take 50 mg by mouth in the morning. [facility] lamoTRIgine 25 mg tablet 2-0 630 00:00: 00 Yes 50mg Take 50 mg by mouth in the morning. [facility] lamoTRIgine 25 mg tablet 2-0 630 00:00: 00 Yes 50mg Take 50 mg by mouth in the morning. [facility] lamoTRIgine 25 mg tablet 2-0 630 00:00: 00 Yes 50mg Take 50 mg by mouth in the morning. [facility] lamoTRIgine 25 mg tablet 2-0 630 00:00: 00 Yes 50mg Take 50 mg by mouth in the morning. [facility] lamoTRIgine 25 mg tablet 2-0 04-18 00:00: 00 Yes 50mg Take 50 mg by mouth in the morning. [facility] lamoTRIgine 25 mg tablet 2-0 04-18 00:00: 00 Yes 50mg Take 50 mg by mouth in the morning. [facility] lamoTRIgine 25 mg tablet 2-0 04-18 00:00: 00 Yes 50mg Take 50 mg by mouth in the morning. [facility] lamoTRIgine 25 mg tablet 2-0 04-18 00:00: 00 Yes 50mg Take 50 mg by mouth in the morning. [facility] lamoTRIgine 25 mg tablet 2-0 04-18 00:00: 00 Yes 50mg Take 50 mg by mouth in the morning. [facility] lamoTRIgine 25 mg tablet 2-0 04-18 00:00: 00 Yes 50mg Take 50 mg by mouth in the morning. [facility] lamoTRIgine 25 mg tablet 2-0 04-18 00:00: 00 Yes 50mg Take 50 mg by mouth in the morning. [facility] lamoTRIgine 25 mg tablet 2-0 04-18 00:00: 00 Yes 50mg Take 50 mg by mouth in the morning. [facility] lamoTRIgine 25 mg tablet 2-0 04-18 00:00: 00 Yes 50mg Take 50 mg by mouth in the morning. [facility] lamoTRIgine 25 mg tablet 2-0 04-18 00:00: 00 Yes 50mg Take 50 mg by mouth in the morning. [facility] lamoTRIgine 25 mg tablet 2-0 04-18 00:00: 00 Yes 50mg Take 50 mg by mouth in the morning. [facility] lamoTRIgine 25 mg tablet 2-0 04-18 00:00: 00 Yes 50mg Take 50 mg by mouth in the morning. [facility] lamoTRIgine 25 mg tablet 2-0 04-18 00:00: 00 Yes 50mg Take 50 mg by mouth in the morning. [facility] lamoTRIgine 25 mg tablet 2-0 04-18 00:00: 00 Yes 50mg Take 50 mg by mouth in the morning. [facility] lamoTRIgine 25 mg tablet 2-0 04-18 00:00: 00 Yes 50mg Take 50 mg by mouth in the morning. [facility] lamoTRIgine 25 mg tablet 2-0 04-18 00:00: 00 Yes 50mg Take 50 mg by mouth in the morning. [facility] lamoTRIgine 25 mg tablet 2-0 04-18 00:00: 00 Yes 50mg Take 2 tablets by mouth in the morning. [facility] lamoTRIgine 25 mg tablet 2021-0 04-18 00:00: 00 Yes 50mg Take 2 tablets by mouth in the morning. [facility] lamoTRIgine 25 mg tablet 2-0 04-18 00:00: 00 Yes 50mg Take 2 tablets by mouth in the morning. [facility] lamoTRIgine 25 mg tablet 2-0 04-18 00:00: 00 Yes 50mg Take 2 tablets by mouth in the morning. [facility] lamoTRIgine 25 mg tablet 2-0 04-18 00:00: 00 Yes 50mg Take 2 tablets by mouth in the morning. [facility] Lamictal 25 mg tablet 2-0 04-18 00:00: 00 No 2mg trazodone 50 mg tablet 2-0 04-18 00:00: 00 No 1mg &lt 2-0 04-18 00:00: 00 No &lt 2022-0 04-18 00:00: 00 No Dose Unknown 2-0 04-18 00:00: 00 No TAKE 1 TABLET BY MOUTH ONCE DAILY 2-0 04-18 00:00: 00 No lamoTRIgine 25 mg tablet 2-0 04-18 00:00: 00 02-03 00:00 :00 No 50mg Take 2 tablets by mouth in the morning. [facility] lamoTRIgine 25 mg tablet 2-0 04-18 00:00: 00 2023- 04-17 00:00 :00 No 50mg Take 2 tablets by mouth in the morning. [facility] Dose Unknown 2022-0 5-31 00:00: 00 No Dose Unknown 2022-0 3-21 00:00: 00 No Dose Unknown 2022-0 3-21 00:00: 00 No Dose Unknown 2022-0 3-21 00:00: 00 No Dose Unknown 2022-0 3-21 00:00: 00 No Dose Unknown 2022-0 3-21 00:00: 00 No Dose Unknown 2022-0 3-21 00:00: 00 No Dose Unknown 2022-0 3-21 00:00: 00 No Dose Unknown 2022-0 3-21 00:00: 00 No Dose Unknown 2022-0 3-14 00:00: 00 No Dose Unknown 2022-0 3-14 00:00: 00 No Dose Unknown 2022-0 3-14 00:00: 00 No Dose Unknown 2022-0 3-14 00:00: 00 No Dose Unknown 2022-0 3-14 00:00: 00 No Dose Unknown 2022-0 3-14 00:00: 00 No Dose Unknown 2022-0 3-14 00:00: 00 No Dose Unknown 2022-0 3-14 00:00: 00 No Dose Unknown 2022-0 3-14 00:00: 00 No Dose Unknown 2022-0 3-14 00:00: 00 No Dose Unknown 2022-0 3-14 00:00: 00 No Dose Unknown 2022-0 3-14 00:00: 00 No Dose Unknown 2022-0 3-14 00:00: 00 No Dose Unknown 2022-0 3-14 00:00: 00 No Dose Unknown 2022-0 3-14 00:00: 00 No Dose Unknown 2022-0 3-14 00:00: 00 No Dose Unknown 2022-0 3-14 00:00: 00 No Dose Unknown 2022-0 3-14 00:00: 00 No Dose Unknown 2022-0 3-14 00:00: 00 No Dose Unknown 2022-0 3-14 00:00: 00 No Dose Unknown 2022-0 3-14 00:00: 00 No Dose Unknown 2022-0 3-14 00:00: 00 No Dose Unknown 2022-0 3-14 00:00: 00 No Dose Unknown 2022-0 3-14 00:00: 00 No Dose Unknown 2022-0 3-14 00:00: 00 No Dose Unknown 2022-0 3-14 00:00: 00 No Dose Unknown 2022-0 3-14 00:00: 00 No Dose Unknown 2022-0 3-14 00:00: 00 No Dose Unknown 2022-0 3-14 00:00: 00 No Dose Unknown 2022-0 3-14 00:00: 00 No Dose Unknown 2022-0 3-14 00:00: 00 No Dose Unknown 2022-0 3-14 00:00: 00 No Dose Unknown 2022-0 3-14 00:00: 00 No Dose Unknown 2022-0 3-14 00:00: 00 No Dose Unknown 2022-0 3-14 00:00: 00 No Dose Unknown 2022-0 3-14 00:00: 00 No Dose Unknown 2022-0 3-14 00:00: 00 No Dose Unknown 2022-0 3-14 00:00: 00 No Dose Unknown 2022-0 3-14 00:00: 00 No Dose Unknown 2022-0 3-14 00:00: 00 No Dose Unknown 2022-0 3-14 00:00: 00 No Dose Unknown 2022-0 3-14 00:00: 00 No Dose Unknown 2022-0 3-14 00:00: 00 No Dose Unknown 2022-0 3-14 00:00: 00 No Dose Unknown 2022-0 3-14 00:00: 00 No Dose Unknown 2022-0 3-14 00:00: 00 No Dose Unknown 2022-0 3-14 00:00: 00 No Dose Unknown 2022-0 3-14 00:00: 00 No Dose Unknown 2022-0 3-14 00:00: 00 No Dose Unknown 2022-0 3-14 00:00: 00 No Dose Unknown 2022-0 3-14 00:00: 00 No Dose Unknown 2022-0 3-14 00:00: 00 No Dose Unknown 2022-0 3-14 00:00: 00 No Dose Unknown 2022-0 3-14 00:00: 00 No Dose Unknown 2022-0 3-14 00:00: 00 No Dose Unknown 2022-0 3-14 00:00: 00 No Dose Unknown 0 3-14 00:00: 00 No Dose Unknown 0 3-14 00:00: 00 No Dose Unknown 0 3-14 00:00: 00 No Dose Unknown 0 3-14 00:00: 00 No Lamictal 25 mg tablet 0 2-17 00:00: 00 No 2mg trazodone 50 mg tablet 0 2-17 00:00: 00 No 1mg Dose Unknown 0 1-20 00:00: 00 No Dose Unknown 0 1-20 00:00: 00 No Lamictal 25 mg tablet 2020-10 2-06 00:00: 00 No 2mg trazodone 50 mg tablet 2020-10 2-06 00:00: 00 No 1mg Lamictal 25 mg tablet 2020-10 1-08 00:00: 00 No 1mg Lamictal 25 mg tablet 2020-10 1-08 00:00: 00 No 2mg trazodone 50 mg tablet 2020-10 1-08 00:00: 00 No 1mg Lamictal 25 mg tablet 2020-10 0-18 00:00: 00 No 1mg trazodone 50 mg tablet 2020-10 0-18 00:00: 00 No 1mg amoxicillin -clavulanat e (AUGMENTIN) 875-125 mg per tablet 07-18 15:10: 21 Yes 1{tbl} Take 1 tablet by mouth 2 (two) times daily. [facility] OXcarbazepi ne 300 mg tablet 07-18 15:10: 21 Yes 300mg Take 300 mg by mouth at bedtime. [facility] amoxicillin -clavulanat e (AUGMENTIN) 875-125 mg per tablet 07-18 15:10: 21 Yes 1{tbl} Take 1 tablet by mouth 2 (two) times daily. [facility] OXcarbazepi ne 300 mg tablet 07-18 15:10: 21 Yes 300mg Take 300 mg by mouth at bedtime. [facility] Lamictal 25 mg tablet 07-10 00:00: 00 No 1mg trazodone 50 mg tablet 07-10 00:00: 00 No 1mg Abilify 30 mg tablet 06-20 00:00: 00 No 1mg oxcarbazepi ne 600 mg tablet 06-20 00:00: 00 No 2mg lithium carbonate 300 mg capsule 06-20 00:00: 00 No 3mg benzonatate 100 mg capsule 05-05 00:00: 00 Yes [id number] 100mg Take 1 capsule by mouth 3 (three) times daily as needed for Cough. [facility] benzonatate 100 mg capsule 05-05 00:00: 00 Yes [id number] 100mg Take 1 capsule by mouth 3 (three) times daily as needed for Cough. [facility] benzonatate 100 mg capsule 05-05 00:00: 00 07-09 00:00 :00 No [id number] 100mg Take 1 capsule by mouth 3 (three) times daily as needed for Cough. [facility] benzonatate 100 mg capsule 05-05 00:00: 00 07-09 00:00 :00 No [id number] 100mg Take 1 capsule by mouth 3 (three) times daily as needed for Cough. [facility] Lamictal 25 mg tablet 04-27 00:00: 00 No 1mg hydroxyzine HCl 25 mg tablet 04-27 00:00: 00 No 1mg Lamictal 25 mg tablet 03-30 00:00: 00 No 1mg hydroxyzine HCl 25 mg tablet 03-30 00:00: 00 No 1mg pantoprazol e 40 mg EC tablet 03-28 00:00: 00 Yes [id number] 40mg Take 1 tablet by mouth daily. [facility] pantoprazol e 40 mg EC tablet 03-28 00:00: 00 Yes [id number] 40mg Take 1 tablet by mouth daily. [facility] pantoprazol e 40 mg EC tablet 03-28 00:00: 00 Yes [id number] 40mg Take 1 tablet by mouth daily. [facility] pantoprazol e 40 mg EC tablet 03-28 00:00: 00 Yes [id number] 40mg Take 1 tablet by mouth daily. [facility] pantoprazol e 40 mg EC tablet 03-28 00:00: 00 Yes [id number] 40mg Take 1 tablet by mouth daily. [facility] pantoprazol e 40 mg EC tablet 03-28 00:00: 00 Yes [id number] 40mg Take 1 tablet by mouth daily. [facility] pantoprazol e 40 mg EC tablet 03-28 00:00: 00 Yes [id number] 40mg Take 1 tablet by mouth daily. [facility] pantoprazol e 40 mg EC tablet 03-28 00:00: 00 Yes [id number] 40mg Take 1 tablet by mouth daily. [facility] pantoprazol e 40 mg EC tablet 03-28 00:00: 00 Yes [id number] 40mg Take 1 tablet by mouth daily. [facility] pantoprazol e 40 mg EC tablet 03-28 00:00: 00 Yes [id number] 40mg Take 1 tablet by mouth daily. [facility] pantoprazol e 40 mg EC tablet 03-28 00:00: 00 Yes [id number] 40mg Take 1 tablet by mouth daily. [facility] pantoprazol e 40 mg EC tablet 03-28 00:00: 00 Yes [id number] 40mg Take 1 tablet by mouth daily. [facility] pantoprazol e 40 mg EC tablet 03-28 00:00: 00 Yes [id number] 40mg Take 1 tablet by mouth daily. [facility] pantoprazol e 40 mg EC tablet 03-28 00:00: 00 Yes [id number] 40mg Take 1 tablet by mouth daily. [facility] pantoprazol e 40 mg EC tablet 03-28 00:00: 00 Yes [id number] 40mg Take 1 tablet by mouth daily. [facility] pantoprazol e 40 mg EC tablet 03-28 00:00: 00 Yes [id number] 40mg Take 1 tablet by mouth daily. [facility] pantoprazol e 40 mg EC tablet 03-28 00:00: 00 Yes [id number] 40mg Take 1 tablet by mouth daily. [facility] pantoprazol e 40 mg EC tablet 03-28 00:00: 00 Yes [id number] 40mg Take 1 tablet by mouth daily. [facility] pantoprazol e 40 mg EC tablet 03-28 00:00: 00 Yes [id number] 40mg Take 1 tablet by mouth daily. [facility] pantoprazol e 40 mg EC tablet 03-28 00:00: 00 Yes [id number] 40mg Take 1 tablet by mouth daily. [facility] pantoprazol e 40 mg EC tablet 03-28 00:00: 00 Yes [id number] 40mg Take 1 tablet by mouth daily. [facility] pantoprazol e 40 mg EC tablet 03-28 00:00: 00 Yes [id number] 40mg Take 1 tablet by mouth daily. [facility] pantoprazol e 40 mg EC tablet 03-28 00:00: 00 Yes [id number] 40mg Take 1 tablet by mouth daily. [facility] pantoprazol e 40 mg EC tablet 03-28 00:00: 00 Yes [id number] 40mg Take 1 tablet by mouth daily. [facility] pantoprazol e 40 mg EC tablet 03-28 00:00: 00 Yes [id number] 40mg Take 1 tablet by mouth daily. [facility] pantoprazol e 40 mg EC tablet 03-28 00:00: 00 Yes [id number] 40mg Take 1 tablet by mouth daily. [facility] pantoprazol e 40 mg EC tablet 03-28 00:00: 00 Yes [id number] 40mg Take 1 tablet by mouth daily. [facility] pantoprazol e 40 mg EC tablet 03-28 00:00: 00 Yes [id number] 40mg Take 1 tablet by mouth daily. [facility] pantoprazol e 40 mg EC tablet 03-28 00:00: 00 Yes [id number] 40mg Take 1 tablet by mouth daily. [facility] pantoprazol e 40 mg EC tablet 03-28 00:00: 00 Yes [id number] 40mg Take 1 tablet by mouth daily. [facility] pantoprazol e 40 mg EC tablet 03-28 00:00: 00 02-03 00:00 :00 No [id number] 40mg Take 1 tablet by mouth daily. [facility] pantoprazol e 40 mg EC tablet 03-28 00:00: 00 02-03 00:00 :00 No [id number] 40mg Take 1 tablet by mouth daily. [facility] Lamictal 25 mg tablet 5-14 00:00: 00 No 1mg hydroxyzine HCl 25 mg tablet 5-14 00:00: 00 No 1mg Lamictal 25 mg tablet 4-16 00:00: 00 No 1mg hydroxyzine HCl 25 mg tablet 4-16 00:00: 00 No 1mg metronidazo le 500 mg tablet 4-03 00:00: 00 No 1mg ciprofloxac in 500 mg tablet 4-03 00:00: 00 No 1mg Lamictal 25 mg tablet 3-19 00:00: 00 No 1mg hydroxyzine HCl 25 mg tablet 3-19 00:00: 00 No 1mg Augmentin 875 mg-125 mg tablet 3-17 00:00: 00 No 1mg Macrobid 100 mg capsule 0 3-10 00:00: 00 No 1mg Lamictal 25 mg tablet 2-26 00:00: 00 No 1mg hydroxyzine HCl 25 mg tablet 0 2-26 00:00: 00 No 1mg Macrobid 100 mg capsule 0 2-09 00:00: 00 No 1mg Lamictal 25 mg tablet 2- 00:00: 00 No 1mg hydroxyzine HCl 25 mg tablet 2- 00:00: 00 No 1mg Lamictal 25 mg tablet 1-15 00:00: 00 No 1mg hydroxyzine HCl 25 mg tablet 1-15 00:00: 00 No 1mg Flagyl 500 mg tablet 2019-10 0-23 00:00: 00 No 1mg mupirocin 2 % topical ointment 2019-10 0-20 00:00: 00 No 1% acyclovir 400 mg tablet 2019-10 0-20 00:00: 00 No 1mg cephalexin 500 mg capsule 2019-10 0-20 00:00: 00 No 1mg Flagyl 500 mg tablet 2019-10 0-17 00:00: 00 No 1mg Caladryl 1 %-8 % lotion 2019-10 0-16 00:00: 00 No 1% hydroxyzine HCl 25 mg tablet 2019-10 0-16 00:00: 00 No 12mg Lamictal 25 mg tablet 2019-10 0-15 00:00: 00 No 2mg Lamictal 25 mg tablet 2019-10 0- 00:00: 00 No 2mg Lamictal 25 mg tablet 8-19 00:00: 00 No 2mg hydroxyzine HCl 25 mg tablet 8-07 00:00: 00 No 12mg Caladryl 1 %-8 % lotion 8-07 00:00: 00 No 1% Lamictal 25 mg tablet 8-06 00:00: 00 No 1mg triamcinolo ne acetonide 0.1 % topical cream 8-05 00:00: 00 No 1% Flagyl 500 mg tablet 8-05 00:00: 00 No 1mg acyclovir 400 mg tablet 8-05 00:00: 00 No 1mg acyclovir 400 mg tablet 7-15 00:00: 00 No 1mg Latuda 20 mg tablet 7-08 00:00: 00 No 1mg Immunizations Ordered Immunization Name Filled Immunization Name Date Status Comments Source SARS-COV-2 COVID-19 LUISANA/J&J VACCINE 2021-01-15 00:00:00 Completed [facility] SARS-COV-2 COVID-19 LUISANA/J&J VACCINE 2021-01-15 00:00:00 Completed [facility] SARS-COV-2 COVID-19 LUISANA/J&J VACCINE 2021-01-15 00:00:00 Completed [facility] SARS-COV-2 COVID-19 LUISANA/J&J VACCINE 2021-01-15 00:00:00 Completed [facility] SARS-COV-2 COVID-19 LUISANA/J&J VACCINE 2021-01-15 00:00:00 Completed [facility] SARS-COV-2 COVID-19 LUISANA/J&J VACCINE 2021-01-15 00:00:00 Completed [facility] SARS-COV-2 COVID-19 LUISANA/J&J VACCINE 2021-01-15 00:00:00 Completed [facility] SARS-COV-2 COVID-19 LUISANA/J&J VACCINE 2021-01-15 00:00:00 Completed [facility] SARS-COV-2 COVID-19 LUISANA/J&J VACCINE 2021-01-15 00:00:00 Completed [facility] SARS-COV-2 COVID-19 LUISANA/J&J VACCINE 2021-01-15 00:00:00 Completed [facility] SARS-COV-2 COVID-19 LUISANA/J&J VACCINE 2021-01-15 00:00:00 Completed [facility] SARS-COV-2 COVID-19 LUIASNA/J&J VACCINE 2021-01-15 00:00:00 Completed [facility] SARS-COV-2 COVID-19 LUISANA/J&J VACCINE 2021-01-15 00:00:00 Completed [facility] SARS-COV-2 COVID-19 LUISANA/J&J VACCINE 2021-01-15 00:00:00 Completed [facility] SARS-COV-2 COVID-19 LUISANA/J&J VACCINE 2021-01-15 00:00:00 Completed [facility] SARS-COV-2 COVID-19 LUISANA/J&J VACCINE 2021-01-15 00:00:00 Completed [facility] SARS-COV-2 COVID-19 LUISANA/J&J VACCINE 2021-01-15 00:00:00 Completed [facility] SARS-COV-2 COVID-19 LUISANA/J&J VACCINE 2021-01-15 00:00:00 Completed [facility] SARS-COV-2 COVID-19 LUISANA/J&J VACCINE 2021-01-15 00:00:00 Completed [facility] SARS-COV-2 COVID-19 LUISANA/J&J VACCINE 2021-01-15 00:00:00 Completed [facility] SARS-COV-2 COVID-19 LUISANA/J&J VACCINE 2021-01-15 00:00:00 Completed [facility] SARS-COV-2 COVID-19 LUISANA/J&J VACCINE 2021-01-15 00:00:00 Completed [facility] SARS-COV-2 COVID-19 LUISANA/J&J VACCINE 2021-01-15 00:00:00 Completed [facility] SARS-COV-2 COVID-19 LUISANA/J&J VACCINE 2021-01-15 00:00:00 Completed [facility] SARS-COV-2 COVID-19 LUISANA/J&J VACCINE 2021-01-15 00:00:00 Completed [facility] SARS-COV-2 COVID-19 LUISANA/J&J VACCINE 2021-01-15 00:00:00 Completed [facility] SARS-COV-2 COVID-19 LUISANA/J&J VACCINE 2021-01-15 00:00:00 Completed [facility] SARS-COV-2 COVID-19 LUISANA/J&J VACCINE 2021-01-15 00:00:00 Completed [facility] SARS-COV-2 COVID-19 LUISANA/J&J VACCINE 2021-01-15 00:00:00 Completed [facility] SARS-COV-2 COVID-19 LUISANA/J&J VACCINE 2021-01-15 00:00:00 Completed [facility] SARS-COV-2 COVID-19 LUISANA/J&J VACCINE 2021-01-15 00:00:00 Completed [facility] SARS-COV-2 COVID-19 LUISANA/J&J VACCINE 2021-01-15 00:00:00 Completed [facility] SARS-COV-2 COVID-19 LUISANA/J&J VACCINE 2021-01-15 00:00:00 Completed [facility] SARS-COV-2 COVID-19 LUISANA/J&J VACCINE 2021-01-15 00:00:00 Completed [facility] SARS-COV-2 COVID-19 LUISANA/J&J VACCINE 2021-01-15 00:00:00 Completed [facility] SARS-COV-2 COVID-19 LUISANA/J&J VACCINE 2021-01-15 00:00:00 Completed [facility] SARS-COV-2 COVID-19 LUISANA/J&J VACCINE 2021-01-15 00:00:00 Completed [facility] SARS-COV-2 COVID-19 LUISANA/J&J VACCINE 2021-01-15 00:00:00 Completed [facility] SARS-COV-2 COVID-19 LUISANA/J&J VACCINE 2021-01-15 00:00:00 Completed [facility] SARS-COV-2 COVID-19 LUISANA/J&J VACCINE 2021-01-15 00:00:00 Completed [facility] SARS-COV-2 COVID-19 LUISANA/J&J VACCINE 2021-01-15 00:00:00 Completed [facility] SARS-COV-2 COVID-19 LUISANA/J&J VACCINE 2021-01-15 00:00:00 Completed [facility] SARS-COV-2 COVID-19 LUISANA/J&J VACCINE 2021-01-15 00:00:00 Completed [facility] SARS-COV-2 COVID-19 LUISANA/J&J VACCINE 2021-01-15 00:00:00 Completed [facility] SARS-COV-2 COVID-19 LUISANA/J&J VACCINE 2021-01-15 00:00:00 Completed [facility] SARS-COV-2 COVID-19 LUISANA/J&J VACCINE 2021-01-15 00:00:00 Completed [facility] SARS-COV-2 COVID-19 LUISANA/J&J VACCINE 2021-01-15 00:00:00 Completed [facility] SARS-COV-2 COVID-19 LUISANA/J&J VACCINE 2021-01-15 00:00:00 Completed [facility] SARS-COV-2 COVID-19 LUISANA/J&J VACCINE 2021-01-15 00:00:00 Completed [facility] SARS-COV-2 COVID-19 LUISANA/J&J VACCINE 2021-01-15 00:00:00 Completed [facility] SARS-COV-2 COVID-19 LUISANA/J&J VACCINE Unknown Completed [facility] SARS-COV-2 COVID-19 LUISANA/J&J VACCINE Unknown Completed [facility] SARS-COV-2 COVID-19 LUISANA/J&J VACCINE Unknown Completed [facility] SARS-COV-2 COVID-19 LUISANA/J&J VACCINE Unknown Completed [facility] SARS-COV-2 COVID-19 LUISANA/J&J VACCINE Unknown Completed [facility] SARS-COV-2 COVID-19 LUSIANA/J&J VACCINE Unknown Completed [facility] SARS-COV-2 COVID-19 LUISANA/J&J VACCINE Unknown Completed [facility] SARS-COV-2 COVID-19 LUISANA/J&J VACCINE Unknown Completed [facility] SARS-COV-2 COVID-19 LUISANA/J&J VACCINE Unknown Completed [facility] SARS-COV-2 COVID-19 LUISANA/J&J VACCINE Unknown Completed [facility] SARS-COV-2 COVID-19 LUISANA/J&J VACCINE Unknown Completed [facility] SARS-COV-2 COVID-19 LUISANA/J&J VACCINE Unknown Completed [facility] SARS-COV-2 COVID-19 LUISANA/J&J VACCINE Unknown Completed [facility] SARS-COV-2 COVID-19 LUISANA/J&J VACCINE Unknown Completed [facility] SARS-COV-2 COVID-19 LUISANA/J&J VACCINE Unknown Completed [facility] SARS-COV-2 COVID-19 LUISANA/J&J VACCINE Unknown Completed [facility] SARS-COV-2 COVID-19 LUISANA/J&J VACCINE Unknown Completed [facility] SARS-COV-2 COVID-19 LUISANA/J&J VACCINE Unknown Completed [facility] SARS-COV-2 COVID-19 LUISANA/J&J VACCINE Unknown Completed [facility] SARS-COV-2 COVID-19 LUISANA/J&J VACCINE Unknown Completed [facility] SARS-COV-2 COVID-19 LUISANA/J&J VACCINE Unknown Completed [facility] Vital Signs Vital Name Observation Time Observation Value Comments S ource Systolic blood pressure 2023-10-16 22:45:00 126 mm[Hg] [facility] Diastolic blood pressure 2023-10-16 22:45:00 79 mm[Hg] [facility] Heart rate 2023-10-16 22:45:00 94 /min [facility] Body temperature 2023-10-16 22:45:00 37.06 Annia [facility] Body height 2023-10-16 22:45:00 162.6 cm [facility] Body weight 2023-10-16 22:45:00 63.095 kg [facility] BMI 2023-10-16 22:45:00 23.88 kg/m2 [facility] Oxygen saturation in Arterial blood by Pulse oximetry 2023-10-16 22:45:00 99 /min [facility] Systolic blood pressure 2023-08-11 18:07:00 121 mm[Hg] [facility] Diastolic blood pressure 2023-08-11 18:07:00 80 mm[Hg] [facility] Heart rate 2023-08-11 18:07:00 96 /min [facility] Body height 2023-08-11 18:07:00 162.6 cm [facility] Body weight 2023-08-11 18:07:00 64.411 kg [facility] BMI 2023-08-11 18:07:00 24.37 kg/m2 [facility] Heart rate 2023-07-17 01:37:00 102 /min [facility] Respiratory rate 2023-07-17 01:37:00 17 /min [facility] Body weight 2023-07-17 01:37:00 65.998 kg [facility] BMI 2023-07-17 01:37:00 24.98 kg/m2 [facility] Oxygen saturation in Arterial blood by Pulse oximetry 2023-07-17 01:37:00 98 /min [facility] Systolic blood pressure 2023-07-15 09:08:00 152 mm[Hg] [facility] Diastolic blood pressure 2023-07-15 09:08:00 106 mm[Hg] [facility] Heart rate 2023-07-15 09:08:00 62 /min [facility] Body temperature 2023-07-15 09:08:00 37.22 Annia [facility] Respiratory rate 2023-07-15 09:08:00 18 /min [facility] Body height 2023-07-15 09:08:00 162.6 cm [facility] Body weight 2023-07-15 09:08:00 67.132 kg [facility] BMI 2023-07-15 09:08:00 25.40 kg/m2 [facility] Oxygen saturation in Arterial blood by Pulse oximetry 2023-07-15 09:08:00 100 /min [facility] Systolic blood pressure 2023-02-15 22:41:00 109 mm[Hg] [facility] Diastolic blood pressure 2023-02-15 22:41:00 72 mm[Hg] [facility] Heart rate 2023-02-15 22:41:00 87 /min [facility] Body temperature 2023-02-15 22:41:00 36.83 Annia [facility] Respiratory rate 2023-02-15 22:41:00 18 /min [facility] Body height 2023-02-15 22:41:00 162.6 cm [facility] Body weight 2023-02-15 22:41:00 68.947 kg [facility] BMI 2023-02-15 22:41:00 26.09 kg/m2 [facility] Oxygen saturation in Arterial blood by Pulse oximetry 2023-02-15 22:41:00 96 /min [facility] Systolic blood pressure 2023-02-07 14:41:00 124 mm[Hg] [facility] Diastolic blood pressure 2023-02-07 14:41:00 83 mm[Hg] [facility] Heart rate 2023-02-07 14:41:00 94 /min [facility] Body temperature 2023-02-07 14:41:00 36.67 Annia [facility] Body height 2023-02-07 14:41:00 162.6 cm [facility] Body weight 2023-02-07 14:41:00 69.718 kg [facility] BMI 2023-02-07 14:41:00 26.38 kg/m2 [facility] Oxygen saturation in Arterial blood by Pulse oximetry 2023-02-07 14:41:00 98 /min [facility] Systolic blood pressure 2023-02-03 14:53:00 125 mm[Hg] [facility] Diastolic blood pressure 2023-02-03 14:53:00 68 mm[Hg] [facility] Heart rate 2023-02-03 14:53:00 79 /min [facility] Body temperature 2023-02-03 14:53:00 36.33 Annia [facility] Body height 2023-02-03 14:53:00 162.6 cm [facility] Body weight 2023-02-03 14:53:00 68.629 kg [facility] BMI 2023-02-03 14:53:00 25.97 kg/m2 [facility] Oxygen saturation in Arterial blood by Pulse oximetry 2023-02-03 14:53:00 100 /min [facility] Systolic blood pressure 2023-01-03 21:59:00 133 mm[Hg] [facility] Diastolic blood pressure 2023-01-03 21:59:00 87 mm[Hg] [facility] Heart rate 2023-01-03 21:59:00 109 /min [facility] Body temperature 2023-01-03 21:59:00 36.89 Annia [facility] Respiratory rate 2023-01-03 21:59:00 17 /min [facility] Body weight 2023-01-03 21:59:00 70.308 kg [facility] BMI 2023-01-03 21:59:00 26.61 kg/m2 [facility] Oxygen saturation in Arterial blood by Pulse oximetry 2023-01-03 21:59:00 98 /min [facility] Systolic blood pressure 2022-12-06 15:29:00 132 mm[Hg] [facility] Diastolic blood pressure 2022-12-06 15:29:00 85 mm[Hg] [facility] Body temperature 2022-12-06 15:29:00 37.11 Annia [facility] Body height 2022-12-06 15:29:00 162.6 cm [facility] Body weight 2022-12-06 15:29:00 68.947 kg [facility] BMI 2022-12-06 15:29:00 26.09 kg/m2 [facility] Oxygen saturation in Arterial blood by Pulse oximetry 2022-12-06 15:29:00 99 /min [facility] Systolic blood pressure 2022-11-20 21:39:00 106 mm[Hg] [facility] Diastolic blood pressure 2022-11-20 21:39:00 63 mm[Hg] [facility] Heart rate 2022-11-20 21:39:00 118 /[facility] 2022-11-20 21:39:00 36.72 Annia [facility] Body height 2022-11-20 21:39:00 162.6 cm [facility] Body weight 2022-11-20 21:39:00 68.04 kg [facility] BMI 2022-11-20 21:39:00 25.75 kg/m2 [facility] Oxygen saturation in Arterial blood by Pulse oximetry 2022-11-20 21:39:00 99 /min [facility] Systolic blood pressure 2022-09-25 17:10:00 120 mm[Hg] [facility] Diastolic blood pressure 2022-09-25 17:10:00 80 mm[Hg] [facility] Heart rate 2022-09-25 17:10:00 92 /min [facility] Body height 2022-09-25 17:10:00 162.6 cm [facility] Body weight 2022-09-25 17:10:00 64.864 kg [facility] BMI 2022-09-25 17:10:00 24.55 kg/m2 [facility] Systolic blood pressure 2022-08-08 02:23:00 122 mm[Hg] [facility] Diastolic blood pressure 2022-08-08 02:23:00 78 mm[Hg] [facility] Heart rate 2022-08-08 02:23:00 76 /min [facility] Body temperature 2022-08-08 02:23:00 36.67 Annia [facility] Respiratory rate 2022-08-08 02:23:00 19 /min [facility] Oxygen saturation in Arterial blood by Pulse oximetry 2022-08-08 02:23:00 96 /min [facility] Body height 2022-08-07 20:26:00 162.6 cm [facility] Body weight 2022-08-07 20:26:00 64.1 kg [facility] BMI 2022-08-07 20:26:00 24.26 kg/m2 [facility] Systolic blood pressure 2022-07-09 14:25:00 139 mm[Hg] [facility] Diastolic blood pressure 2022-07-09 14:25:00 94 mm[Hg] [facility] Heart rate 2022-07-09 14:25:00 88 /min [facility] Body height 2022-07-09 14:25:00 162.6 cm [facility] Body weight 2022-07-09 14:25:00 65.318 kg [facility] BMI 2022-07-09 14:25:00 24.72 kg/m2 [facility] Systolic blood pressure 2022-06-04 18:16:00 115 mm[Hg] [facility] Diastolic blood pressure 2022-06-04 18:16:00 74 mm[Hg] [facility] Body height 2022-06-04 18:16:00 162.6 cm [facility] Body weight 2022-06-04 18:16:00 64.864 kg [facility] BMI 2022-06-04 18:16:00 24.55 kg/m2 [facility] BP Systolic 2022-11-12 09:56:00 119 mm[Hg] BP [...] Procedures Procedure Date / Time Performed Performing Clinicia n Source POCT MOLECULAR FLU 2023-10-16 22:59:00 Gaby Pantoja [facility] POCT MOLECULAR STREP 2023-10-16 22:51:00 Annamaria Pantoja [facility] POCT SARS-COV-2 ANTIGEN (BINAX NOW) 2023-10-16 00:00:00 Gaby Pantoja [facility] ASSIGNMENT OF BENEFITS 2023-08-11 18:02:12 Docto r Unassigned, [place] [facility] NOTICE OF PRIVACY PRACTICES 2023-07-15 09:02:01 Doctor Unassigned, [place] [facility] CONSENT/REFUSAL FOR DIAGNOSIS AND TREATMENT 2023-07-15 09:01:33 Doctor Unassigned, [place] [facility] POCT SARS-COV-2 ANTIGEN (BINAX NOW) 2023-02-07 15:13:00 Vivienne Holt [facility] POCT MOLECULAR FLU 2023-02-07 15:06:00 Unknown, Attend ing [facility] POCT MOLECULAR STREP 2023-02-07 14:52:00 Unknown, Attfelton sanchez [facility] PATIENT FINANCIAL POLICY 2023-01-03 21:48:53 Doctor Unassigned, [place] [facility] EXTERNAL PROVIDER RECORDS 2022-12-24 06:01:00 Doctor Unassigned, [place] [facility] CREATINE KINASE 2022-08-07 21:44:00 Mila Roldan [facility] LIPASE 2022-08-07 21:44:00 Mila Roldan [facility] TEST, SERUM 2022-08-07 21:44:00 Anaid Roldan [facility] TROPONIN I 2022-08-07 21:44:00 Mila Roldan [facility] HEPATIC FUNCTION PANEL (10354) (ALB,T.PRO,BILI T,BU/BC,ALT,AST,ALK PHOS) 2022-08-07 21:44:00 Mila Roldan [facility] BASIC METABOLIC PANEL (NA, K, CL, CO2, GLUCOSE, BUN, CREATININE, CA) 2022-08-07 21:44:00 Mila Roldan [facility] SALICYLATE 2022-08-07 21:44:00 Mila Roldan [facility] ETHANOL 2022-08-07 21:44:00 Mila Roldan [facility] CBC WITH DIFF 2022-08-07 21:44:00 Mila Roldan [facility] Plan of Care Planned Activity Planned Date Details Comments Source Goal Plan of Care Note [code = 91331-1] Goal Plan of Care Note [code = 41068-7] Goal Plan of Care Note [code = 57233-5] Goal Plan of Care Note [code = 57946-7] Goal Plan of Care Note [code = 32209-1] Goal Plan of Care Note [code = 73596-3] Goal Plan of Care Note [code = 85535-5] Goal Plan of Care Note [code = 56421-7] Goal Plan of Care Note [code = 73069-1] Goal Plan of Care Note [code = 47424-3] Goal Plan of Care Note [code = 19899-9] Goal Plan of Care Note [code = 92061-0] Goal Plan of Care Note [code = 03210-3] Goal Plan of Care Note [code = 27167-8] Goal Plan of Care Note [code = 56311-4] Goal Plan of Care Note [code = 11474-6] Goal Plan of Care Note [code = 17007-9] Goal Plan of Care Note [code = 95764-2] Goal Plan of Care Note [code = 50062-9] Goal Plan of Care Note [code = 39143-5] Goal Plan of Care Note [code = 60727-6] Goal Plan of Care Note [code = 29195-7] Goal Plan of Care Note [code = 10351-0] Goal Plan of Care Note [code = 73089-5] Goal Plan of Care Note [code = 92702-5] Goal Plan of Care Note [code = 52837-2] Goal Plan of Care Note [code = 03128-0] Goal Plan of Care Note [code = 46959-0] Goal Plan of Care Note [code = 31672-4] Goal Plan of Care Note [code = 74415-9] Goal Plan of Care Note [code = 43177-6] Goal Plan of Care Note [code = 22155-7] Goal Plan of Care Note [code = 67974-3] Encounters Start Date/Time End Date/Time Encounter Type Admission Type Attending [facility] Care Facility Care Department Encounter ID Source 2021-08-20 08:51:37 Emergency [facility] [id number] [facility] 2023-10-16 16:40:00 2023-10-16 17:06:52 Outpatient R GABY PANTOJA [facility] [id number] [facility] 2023-10-16 16:40:00 2023-10-16 17:06:52 [facility] [id number] 350.1.13.10 4.2.7.2.686 [id number] [facility] 2023-10-08 00:00:00 2023-10-08 00:00:00 [facility] [id number] 350.1.13.10 4.2.7.2.686 [id number] [facility] 2023-10-06 00:00:00 2023-10-06 00:00:00 [facility] [id number] 350.1.13.10 4.2.7.2.686 [id number] [facility] 2023-10-06 00:00:00 2023-10-06 00:00:00 [facility]phone [facility] 1.2840.114 350.1.13.10 4.2.7.2.686 [id number] [facility] 2023-09-17 00:00:00 2023-09-17 00:00:00 [facility] [id number] 350.1.13.10 4.2.7.2.686 [id number] [facility] 2023-09-10 00:00:00 2023-09-10 00:00:00 [facility] [id number] 350.1.13.10 4.2.7.2.686 [id number] [facility] 2023-09-09 00:00:00 2023-09-09 00:00:00 Telephone [facility] [id number] 350.1.13.10 4.2.7.2.686 [id number] [facility] 2023-09-05 00:00:00 2023-09-05 00:00:00 Telephone Laura Beltran [facility] 1..840.114 350.1.13.10 4.2.7.2.686 [id number] [facility] 2023-09-03 00:00:00 2023-09-03 00:00:00 Refill [facility] 1.840.114 350.1.13.10 4.2.7.2.686 [id number] [facility] 2023-08-11 13:00:00 2023-08-11 13:23:48 Outpatient R RUBY [facility] [id number] [facility] 2023-08-11 13:00:00 2023-08-11 13:23:48 [facility] 1.840.114 350.1.13.10 4.2.7.2.686 [id number] [facility] 2023-08-11 00:00:00 2023-08-11 00:00:00 Orders Only Doctor Unassigned, [place] [facility] 1.840.114 350.1.13.10 4.2.7.2.686 [id number] [facility] 2023-08-05 00:00:00 2023-08-05 00:00:00 [facility] 1.840.114 350.1.13.10 4.2.7.2.686 [id number] [facility] 2023-07-26 00:00:00 2023-07-26 00:00:00 Refill VesLaura echols [facility] 1..840.114 350.1.13.10 4.2.7.2.686 [id number] [facility] 2023-07-24 10:45:00 2023-07-24 10:45:00 Outpatient R MAIKEL SIGALA [facility] [id number] [facility] 2023-07-16 20:20:00 2023-07-16 20:40:00 Urgent Care Vivienne Holt Unknown, Attending [facility] 1..840.114 350.1.13.10 4.2.7.2.686 [id number] [facility] 2023-07-16 20:20:00 2023-07-16 20:20:00 Outpatient R VIVIENNE HOLT [facility] [id number] [facility] 2023-07-15 04:10:00 2023-07-15 04:44:00 Emergency X [facility] ERT [id number] [facility] 2023-07-15 04:10:00 2023-07-15 04:44:00 Emergency Mc Strong S [facility] 1..840.114 350.1.13.10 4.2.7.2.686 [id number] [facility] 2023-07-03 00:00:00 2023-07-03 00:00:00 Ming AguilaLaura echols [facility] 1..840.114 350.1.13.10 4.2.7.2.686 [id number] 044 [id number] [facility] 2023-07-03 00:00:00 2023-07-03 00:00:00 Ming [facility] 1.2.840.114 350.1.13.10 4.2.7.2.686 [id number] 044 [id number] [facility] 2023-06-16 00:00:00 2023-06-16 00:00:00 Telephone Laura Beltran [facility] PROFESSIO NAL BUILDING 1.2.840.114 350.1.13.10 4.2.7.2.686 [id number] 044 [id number] [facility] 2023-06-09 00:00:00 2023-06-09 00:00:00 Refill Ruby [facility] 1.2.840.114 350.1.13.10 4.2.7.2.686 [id number] [facility] 2023-06-06 00:00:00 2023-06-06 00:00:00 Refill Ruby [facility] 1.2.840.114 350.1.13.10 4.2.7.2.686 [id number] [id number] [facility] 2023-06-04 10:00:00 2023-06-04 10:00:00 Outpatient Casey BELTRAN LAUAR [facility] [id number] [facility] 2023-05-23 16:51:14 2023-05-23 23:59:00 Hospital Encounter Feroz Barakat [facility] 1.2.840.114 350.1.13.10 4.2.7.2.686 [id number] [facility] 2023-05-23 16:50:23 2023-05-23 16:50:00 Outpatient R FEROZ BARAKAT [facility] [id number] [facility] 2023-05-23 16:30:00 2023-05-23 16:50:00 Hospital Encounter Feroz Barakat [facility] 1.2.840.114 350.1.13.10 4.2.7.2.686 [id number] [facility] 2023-05-13 00:00:00 2023-05-13 00:00:00 Patient Secure Msg Doctor Unassigned, [place] [facility] 1.2.840.114 350.1.13.10 4.2.7.2.686 [id number] [facility] 2023-05-10 00:00:00 2023-05-10 00:00:00 Refill Laura Beltran [facility] 1.2.840.114 350.1.13.10 4.2.7.2.686 [id number] 044 [id number] [facility] 2023-05-07 00:00:00 2023-05-07 00:00:00 Patient Secure Msg Doctor Unassigned, [place] [facility] PROFESSIO NAL BUILDING 1.2.840.114 350.1.13.10 4.2.7.2.686 [id number] [facility] 2023-05-05 00:00:00 2023-05-05 00:00:00 Telephone Ruby Laura [facility] OFF[facility] BUILD[facility] 1.2.840.114 350.1.13.10 4.2.7.2.686 [id number] [facility] 2023-05-02 00:00:00 2023-05-02 00:00:00 [facility] [id number] [facility] 2023-04-25 00:00:00 2023-04-25 00:00:00 [facility] [id number] [facility] 2023-04-08 00:00:00 2023-04-08 00:00:00 [facility] 1.2.840.114 350.1.13.10 4.2.7.2.686 [id number] 044 [id number] [facility] 2023-04-03 00:00:00 2023-04-03 00:00:00 [facility]ill [facility] 1.2.840.114 350.1.13.10 4.2.7.2.686 [id number] [facility] 2023-03-10 00:00:00 2023-03-10 00:00:00 Telephone [facility] 1.2840.114 350.1.13.10 4.2.7.2.686 [id number] 044 [id number] [facility] 2023-03-08 00:00:00 2023-03-08 00:00:00 Refill [facility] 1.2840.114 350.1.13.10 4.2.7.2.686 [id number] [id number] [facility] 2023-03-07 00:00:00 2023-03-07 00:00:00 Refill [facility] 1.2840.114 350.1.13.10 4.2.7.2.686 [id number] [id number] [facility] 2023-03-07 00:00:00 2023-03-07 00:00:00 Telephone [facility] 1.2840.114 350.1.13.10 4.2.7.2.686 [id number] 044 [id number] [facility] 2023-02-17 00:00:00 2023-02-17 00:00:00 Telephone Laura Beltran [facility] 1.84.114 350.1.13.10 4.2.7.2.686 [id number] [id number] [facility] 2023-02-15 17:30:00 2023-02-15 17:41:47 [facility] [id number] [facility] 2023-02-15 17:30:00 2023-02-15 17:41:47 Nurse Visit Nurse, Jose Petty Urgent Care Unknown, Attending [facility] 1.84.114 350.1.13.10 4.2.7.2.686 [id number] [facility] 2023-02-15 17:20:00 2023-02-15 17:20:00 Outpatient R UNKNOWN, ATTENDING [facility] [id number] [facility] 2023-02-07 09:20:00 2023-02-07 09:40:00 Urgent Care Vivienne Holt Unknown, Attending [facility] BUILD[facility] 1.840.114 350.1.13.10 4.2.7.2.686 [id number] [facility] 2023-02-07 09:20:00 2023-02-07 09:20:00 Outpatient R UNKNOWN, ATTENDING VIVIENNE HOLT [facility] [id number] [facility] 2023-02-03 10:15:00 2023-02-03 10:30:00 Office Visit Laura Beltran [facility] BUILD[facility] 1.84.114 350.1.13.10 4.2.7.2.686 [id number] [facility] 2023-02-03 10:15:00 2023-02-03 10:15:00 Outpatient LAURA AMADOR [facility] [id number] [facility] 2023-01-23 10:00:00 2023-01-23 10:00:00 Outpatient LAURA AMADOR [facility] [id number] [facility] 2023-01-06 00:00:00 2023-01-06 00:00:00 Refill Laura Beltran [facility] BUILD[facility] 1.840.114 350.1.13.10 4.2.7.2.686 [id number] [facility] 2023-01-04 00:00:00 2023-01-04 00:00:00 Telephone Provider, Jose Petty Urgent Care [facility] BUILD[facility] 1.840.114 350.1.13.10 4.2.7.2.686 [id number] [facility] 2023-01-03 16:40:00 2023-01-03 17:14:19 Outpatient FLOR FATIMA [facility] [id number] [facility] 2023-01-03 16:40:00 2023-01-03 17:14:19 Urgent Care Flor Infante Unknown, Attending [facility] BUILD[facility] 1.840.114 350.1.13.10 4.2.7.2.686 [id number] [facility] 2023-01-03 00:00:00 2023-01-03 00:00:00 Orders Only Doctor Unassigned, [place] [facility] 1.840.114 350.1.13.10 4.2.7.2.686 [id number] [facility] 2023-01-03 00:00:00 2023-01-03 00:00:00 Letter (Out) Flor Infante [facility] OFF[facility] BUILD[facility] 1.84.114 350.1.13.10 4.2.7.2.686 [id number] [facility] 2023-01-02 00:00:00 2023-01-02 00:00:00 Refill Laura Beltran [facility] OFF[facility] BUILD[facility] 1.84.114 350.1.13.10 4.2.7.2.686 [id number] [id number] [facility] 2022-12-28 00:00:00 2022-12-28 00:00:00 [facility] 1.84.114 350.1.13.10 4.2.7.2.686 [id number] [facility] 2022-12-26 00:00:00 2022-12-26 00:00:00 Outpatient STU BORGES [facility] [id number] [facility] 2022-12-24 00:00:00 2022-12-24 00:00:00 Orders Only Doctor Unassigned, [place] [facility] 1.84.114 350.1.13.10 4.2.7.2.686 [id number] [facility] 2022-12-06 09:30:00 2022-12-06 09:56:07 Outpatient R TRENA RUSSELL [facility] [id number] [facility] 2022-12-06 09:30:00 2022-12-06 09:56:07 Office Visit Trena Russell [facility] OFF[facility] BUILDING 1.284.114 350.1.13.10 4.2.7.2.686 [id number] [facility] 2022-12-06 07:00:00 2022-12-06 07:00:00 Outpatient R TRENA RUSSELL [facility] [id number] [facility] 2022-12-05 00:00:00 2022-12-05 00:00:00 Refill Laura Beltran [facility] 1.2.840.114 350.1.13.10 4.2.7.2.686 [id number] [id number] [facility] 2022-11-20 15:30:00 2022-11-20 16:22:49 Outpatient R VAUGHN TAN [facility] [id number] [facility] 2022-11-20 15:30:00 2022-11-20 16:22:49 Office Visit Vaughn Tan [facility] 1.2.840.114 350.1.13.10 4.2.7.2.686 [id number] [facility] 2022-11-19 09:30:00 2022-11-19 09:30:00 Outpatient R ARNEL ALARCON [facility] [id number] [facility] 2022-11-14 11:59:29 2022-11-14 11:59:29 Outpatient [facility] 6 Ignacio Heredia 2022-11-13 00:00:00 2022-11-13 00:00:00 Telephone Laura Beltran [facility] 1.2.840.114 350.1.13.10 4.2.7.2.686 [id number] [facility] 2022-11-12 09:48:10 2022-11-12 09:48:10 Outpatient [facility] 4 Ignacio Heredia 2022-11-12 00:00:00 2022-11-12 00:00:00 Outpatient Visit [id number] 2022-11-11 09:15:00 2022-11-11 09:15:00 Outpatient LAURA AMADOR [facility] [id number] [facility] 2022-10-30 00:00:00 2022-10-30 00:00:00 Refill Laura Beltran [facility] 1..840.114 350.1.13.10 4.2.7.2.686 [id number] [facility] 2022-10-10 00:00:00 2022-10-10 00:00:00 Telephone Laura Beltran [facility] 1..840.114 350.1.13.10 4.2.7.2.686 [id number] [id number] [facility] 2022-10-07 00:00:00 2022-10-07 00:00:00 Telephone Laura Beltran [facility] 1..840.114 350.1.13.10 4.2.7.2.686 [id number] [facility] 2022-09-25 11:00:00 2022-09-25 11:20:08 Outpatient LAURA AMADOR [facility] [id number] [facility] 2022-09-25 11:00:00 2022-09-25 11:20:08 Office Visit Ruby Laura [facility] 1..840.114 350.1.13.10 4.2.7.2.686 [id number] [id number] [facility] 2022-09-03 00:00:00 2022-09-03 00:00:00 Refill Laura Beltran [facility] 1.2.840.114 350.1.13.10 4.2.7.2.686 [id number] 044 [id number] [facility] 2022-08-09 00:00:00 2022-08-09 00:00:00 Telephone AguilanoryLaura alva [facility] 1.2.840.114 350.1.13.10 4.2.7.2.686 [id number] 044 [id number] [facility] 2022-08-08 00:00:00 2022-08-08 00:00:00 Telephone Juan Pablochandan [facility] 1.2.840.114 350.1.13.10 4.2.7.2.686 [id number] [facility] 2022-08-07 15:19:00 2022-08-07 21:35:00 Emergency X [facility] [id number] [facility] 2022-08-07 15:19:00 2022-08-07 21:35:[address] [facility] 1.2.840.114 350.1.13.10 4.2.7.2.686 [id number] [facility] 2022-07-10 00:00:00 2022-07-10 00:00:00 Telephone [facility] 1.2.840.114 350.1.13.10 4.2.7.2.686 [id number] 044 [id number] [facility] 2022-07-09 09:15:00 2022-07-09 09:44:28 Outpatient R LAURA BELTRAN [facility] [id number] [facility] 2022-07-09 09:15:00 2022-07-09 09:30:00 Office Visit Ruby [facility] 1..114 350.1.13.10 4.2.7.2.686 [id number] [facility] 2022-07-09 00:00:00 2022-07-09 00:00:00 Telephone Laura Beltran [facility] 1.0.114 350.1.13.10 4.2.7.2.686 [id number] [id number] [facility] 2022-06-04 13:15:00 2022-06-04 13:32:49 Outpatient Casey AGUILANORYCHANDANLAURA [facility] [id number] [facility] 2022-06-04 13:15:00 2022-06-04 13:30:00 Office Visit Laura Beltran [facility] 1.114 350.1.13.10 4.2.7.2.686 [id number] 044 [id number] [facility] 2022-06-04 13:15:00 2022-06-04 13:15:00 Outpatient LAURA AMADOR [facility] [id number] [facility] 2022-04-28 11:37:00 2022-04-28 12:24:00 Emergency X MUNDO PEDROZA [facility] ERT [id number] [facility] 2022-04-28 11:37:00 2022-04-28 12:24:00 Emergency Mundo Pedroza [facility] 1..114 350.1.13.10 4.2.7.2.686 [id number] [facility] 2022-04-28 00:00:00 2022-04-28 00:00:00 Letter (Out) Lora Gould [facility] 1..114 350.1.13.10 4.2.7.2.686 [id number] [facility] 2021-07-18 14:56:51 2021-07-18 15:32:09 Office Visit Laura Beltran [facility] 1.84.114 350.1.13.10 4.2.7.2.686 [id number] [facility] 2021-07-18 15:00:00 2021-07-18 15:00:00 Outpatient R AGUILABHARATHLAURA [facility] [id number] [facility] 2021-05-30 00:00:00 2021-05-30 00:00:00 Orders Only Doctor Unassigned, [place] [facility] 1.84.114 350.1.13.10 4.2.7.2.686 [id number] [facility] 2021-05-25 00:00:00 2021-05-25 00:00:00 Telephone [facility] 1..114 350.1.13.10 4.2.7.2.686 [id number] 044 [id number] [facility] 2021-05-25 00:00:00 2021-05-25 00:00:00 Telephone AguilanorychandanLaura [facility] 1.84.114 350.1.13.10 4.2.7.2.686 [id number] 044 [id number] 2021-05-21 00:00:00 2021-05-21 00:00:00 Refill Laura Beltran [facility] One ..114 350.1.13.10 4.2.7.2.686 [id number] [facility] 2021-05-21 00:00:00 2021-05-21 00:00:00 Refill Laura Beltran Edward [facility] Office [facility] 1.2.840.114 350.1.13.10 4.2.7.2.686 [id number] [id number] 2021-05-05 11:42:00 2021-05-05 13:42:00 Emergency [facility] 1.2.840.114 350.1.13.10 4.2.7.2.686 [id number] 084 [id number] [facility] 2021-05-05 11:42:00 2021-05-05 13:42:00 Emergency [facility] 1.2.840.114 350.1.13.10 4.2.7.2.686 [id number] [id number] 2021-05-04 00:00:00 2021-05-04 00:00:00 Telephone MarilynNayla [facility] 1.2840.114 350.1.13.10 4.2.7.2.686 [id number] [id number] [facility] 2021-05-04 00:00:00 2021-05-04 00:00:00 Telephone Marilyn Nayla Ric [facility] 1.2840.114 350.1.13.10 4.2.7.2.686 [id number] 044 [id number] 2021-05-03 17:09:02 2021-05-03 17:56:38 Urgent Care Nayla Sanders [facility] 1.2840.114 350.1.13.10 4.2.7.2.686 [id number] 044 [id number] [facility] 2021-05-03 17:09:02 2021-05-03 17:56:38 Urgent Care Marilyn Nayla Ric [facility] 1.2840.114 350.1.13.10 4.2.7.2.686 [id number] [id number] 2021-05-03 17:20:00 2021-05-03 17:20:00 Outpatient R [facility] [id number] [facility] 2021-04-25 10:32:12 2021-04-25 10:47:12 Office Visit Laura Beltran [facility] Office [facility] 1.2840.114 350.1.13.10 4.2.7.2.686 [id number] [id number] 2021-04-25 10:32:12 2021-04-25 10:47:12 Office Visit Ruby [facility] 1.284.114 350.1.13.10 4.2.7.2.686 [id number] [facility] 2021-04-25 10:30:00 2021-04-25 10:30:00 Outpatient R LAURA BELTRAN [facility] [id number] [facility] 2021-04-25 00:00:00 2021-04-25 00:00:00 Orders Only Doctor Unassigned, [place] [facility] 1.2840.114 350.1.13.10 4.2.7.2.686 [id number] 2021-04-25 00:00:00 2021-04-25 00:00:00 Orders Only Doctor Unassigned, [place] [facility] 1.2840.114 350.1.13.10 4.2.7.2.686 [id number] [facility] 2021-04-19 00:00:00 2021-04-19 00:00:00 Orders Only Doctor Unassigned, [place] [facility] 1.2840.114 350.1.13.10 4.2.7.2.686 [id number] [facility] 2021-04-11 15:30:00 2021-04-11 15:30:00 Outpatient JORDAN COSTA [facility] [id number] [facility] 2021-03-28 09:16:27 2021-03-28 09:46:27 Office Visit Laura Beltran [facility] 1..840.114 350.1.13.10 4.2.7.2.686 [id number] [facility] 2021-03-28 09:30:00 2021-03-28 09:30:00 Outpatient Casey BELTRAN LAURA [facility] [id number] [facility] 2021-02-20 00:00:00 2021-02-20 00:00:00 Patient Secure Msg Doctor Unassigned, [place] [facility] 1..840.114 350.1.13.10 4.2.7.2.686 [id number] [facility] 2020-11-25 22:09:00 2020-11-26 00:35:00 Emergency Jhoana Arnold [facility] 1.840.114 350.1.13.10 4.2.7.2.686 [id number] [facility] 2020-11-25 22:09:00 2020-11-26 00:35:00 Emergency X JHOANA ARNOLD [facility] ERT [id number] [facility] 2020-10-17 11:03:50 2020-10-17 11:18:50 Ophthalmologist Retina Specialist Visit Pob, Adc Lab Cristal Verma [facility] 1.840.114 350.1.13.10 4.2.7.2.686 [id number] [facility] 2020-10-17 11:00:00 2020-10-17 11:00:00 Outpatient CRISTAL LANDEROS [facility] [id number] [facility] 2020-10-17 00:00:00 2020-10-17 00:00:00 Orders Only Doctor Unassigned, [place] [facility] 1.2.840.114 350.1.13.10 4.2.7.2.686 [id number] [facility] 2020-10-05 09:47:00 2020-10-05 15:13:00 Emergency X KELSI CORBETT [facility] ERT [id number] [facility] 2020-10-05 09:47:00 2020-10-05 15:13:00 Emergency Kelsi Corbett [facility] 1..840.114 350.1.13.10 4.2.7.2.686 [id number] [facility] Results Test Description Test Time Test Comments Results Result Co mments Source [facility] Molecular [id number] 23:10:47* Test Item Value Reference Range Interpretation Comme nts POCT Molecular FluA (test co de = 05129-1) Negative Negative POCT Molecular FluB (test co de = 26064-1) Negative Negative Lab Interpretation (test cod e = 28296-2) Normal [facility] SARS-COV-2 ANTIGEN (BINAX NOW)2023-10-16 23:05:00* Test Item Value Reference Range Interpretation Comme nts POCT SARS-COV-2 ANTIGEN (gladys t code = 87153-0) Positive Not Detected A On board controls acceptable with C Line (test code = 3574) Yes Lab Interpretation (test cod e = 23569-8) Abnormal [facility] SARS-COV-2 ANTIGEN (BINAX NOW)2023-10-16 23:05:00* Test Item Value Reference Range Interpretation Comme nts POCT SARS-COV-2 ANTIGEN (gladys t code = 67327-7) Positive Not Detected A On board controls acceptable with C Line (test code = 3574) Yes Lab Interpretation (test cod e = 10958-7) Abnormal [facility] MOLECULAR [id number] 22:59:34* Test Item Value Reference Range Interpretation Comme nts POCT Molecular Strep (test c ode = 85927-1) Negative Negative Lab Interpretation (test cod e = 44827-1) Normal [facility] MOLECULAR [id number] 22:59:34* Test Item Value Reference Range Interpretation Comme nts POCT Molecular Strep (test c ode = 01155-6) Negative Negative Lab Interpretation (test cod e = 36513-3) Normal [facility] SARS-COV-2 ANTIGEN (BINAX NOW)2023-02-07 15:14:00* Test Item Value Reference Range Interpretation Comme nts POCT SARS-COV-2 ANTIGEN (test code = 88734-9) Not Detected Not Detected On board controls acceptable with C Line (test code = 3574) Yes GALLO (test code = GALLO) accurate developme nt and interpretation of all internal controls Lab Interpretation (test code = 40797-4) Normal [facility] MOLECULAR [id number] 15:10:42* Test Item Value Reference Range Interpretation Comme nts POCT Molecular FluA (test co de = 86343-3) Positive Negative A Lab Interpretation (test cod e = 79860-0) Abnormal [facility] MOLECULAR [id number] 14:59:48* Test Item Value Reference Range Interpretation Comme nts POCT Molecular Strep (test c ode = 60700-4) Negative Negative Lab Interpretation (test cod e = 41661-1) [facility] [id number] 22:34:41* Test Item Value Reference Range Interpretation Comme nts PREG SERUM (test code = 3936034004) Negative GALLO (test code = GALLO) Less than 10 IU/L. ?If low titer or ectopic is suspected, resubmit specimen in 48-72 hours. [facility] [id number] 22:33:51* Test Item Value Reference Range Interpretation Comments TROPONIN I (test code = 9640835178) 0.002 ng/mL See_Comment [Automated message] The system which generated this result transmitted reference range: <=0.034. The reference range was not used to interpret this result as normal/abnormal. GALLO (test code = GALLO) Reference (Normal) Range (defined by the 99th percentile reference [...] to patient's use of biotin. Lab Interpretation (test code = 24428-2) Normal [facility]AL[facility]2022-10-19 22:27:20 SALICYLATE<10mg/L1 5:27 PM [facility]COMM[facility] PENINSULATherapeutic Range: ? Analgesic and Antipyretic Use ? 20-100 mg/L ? ? Anti-Inflammatory Use ? 100-250 mg/L Toxic Range: ? Greater than 300 mg/LUnH[facility] [id number] 22:27:15ALCOHOL<10mg/dL08/07/2022 5:27 PM [facility]COMM[facility] MON[facility]Y PENINSULAToxic Greater than or equal to 80 mg/dL. NOTE: Whole blood values are approximately 10% to 15% lower than serum and plasma.[facility] CampusACETAMINOPHEN2022-10-19 22:27:10* Test Item Value Reference Range Interpretation Comme nts ACETAMINOP (test code = 1695820678) 10-30 L GALLO (test code = GALLO) Toxic: Greater sapphire n 200 ug/mL @ 4 hour post ingestion or greater than 50 ug/mL @ 12 hour post ingestion Lab Interpretation (test code = 89805-2) [facility] (NA, K, CL, CO2, GLUCOSE, BUN, CREATININE, CA)2022-08-07 22:23:27* Test Item Value Reference Range Interpretation Comme nts NA (test code = 0611639223) 138 mmol/L 135-145 K (test code = 2694882921) 3.9 mmol/L 3.5-5 CL (test code = 3579482131) 102 mmol/L 98-108 CO2 TOTAL (test code = 9531558889) 27 mmol/L 23-31 AGAP (test code = 2713006551) 2-16 BUN (test code = 8444029480) 16 mg/dL 7-23 GLUCOSE (test code = 0856419631) 87 mg/dL 70-110 CREATININE (test code = 5173696631) 0.69 mg/dL 0.5-1.04 CALCIUM (test code = 3415966715) 9.7 mg/dL 8.6-10.6 eGFR (test code = 8293459694) mL/min/1.73m2 GALLO (test code = GALLO) Association of [...] or urine or abnormalities in imaging tests). [facility]CREAT[facility] [id number] 22:23:27* Test Item Value Reference Range Interpretation Comme nts CK (test code = 7264058277) 45 U/L 33-194 Lab Interpretation (test cod e = 62283-8) Normal [facility] (00456) (ALB,T.PRO,BILI T,BU/BC,ALT,AST,ALK PHOS)2022-08-07 22:23:27* Test Item Value Reference Range Interpretation Comme nts TOTAL BILI (test code = 9936923533) 0.7 mg/dL 0.1-1.1 BILI UNCON (test code = 3655551126) 0.3 mg/dL 0.1-1.1 BILI CONJ (test code = 4432845344) 0.0 mg/dL 0-0.3 T PROTEIN (test code = 6116278908) 7.4 g/dL 6.3-8.2 ALBUMIN (test code = 8963497395) 4.4 g/dL 3.5-5 ALK PHOS (test code = 1238337649) 80 U/L 34-122 ALTv (test code = 1742-6) 15 U/L 5-35 AST(SGOT) (test code = 2543481511) 15 U/L 13-40 Lab Interpretation (test cod e = 81144-6) [facility] 22:23:27* Test Item Value Reference Range Interpretation Comme nts LIPASE (test code = 4704098225) 51 U/L 0-220 Lab Interpretation (test cod e = 54008-4) Normal [facility]CBC WITH [id number] 22:06:06* Test Item Value Reference Range Interpretation Comme nts WBC (test code = 6690-2) See_Comment H [Automated messa ge] The system which generated this result transmitted reference range: 4.30 - 11.10 10*3/?L. The reference range was not used to interpret this result as normal/abnormal. RBC (test code = 789-8) See_Comment [Automated messa ge] The system which generated this result transmitted reference range: 3.93 - 5.25 10*6/?L. The reference range was not used to interpret this result as normal/abnormal. HGB (test code = 718-7) 13.6 g/dL 11.6-15 HCT (test code = 4544-3) 37.9 % 35.7-45.2 MCV (test code = 787-2) 84.8 fL 80.6-95.5 MCH (test code = 785-6) 30.4 pg 25.9-32.8 MCHC (test code = 786-4) 35.9 g/dL 31.6-35.1 H RDW-SD (test code = 06996-3) 40.6 fL 39-49.9 RDW-CV (test code = 788-0) 13.1 % 12-15.5 PLT (test code = 777-3) See_Comment H [Automated messa ge] The system which generated this result transmitted reference range: 166 - 358 10*3/?L. The reference range was not used to interpret this result as normal/abnormal. MPV (test code = 67966-4) 10.1 fL 9.5-12.9 NRBC/100 WBC (test code = 0367667998) See_Comment [Automated NONO ssage] The system which generated this result transmitted reference range: 0.0 - 10.0 /100 WBCs. The reference range was not used to interpret this result as normal/abnormal. NRBC x10^3 (test code = 5544227782) See_Comment [Automated messa ge] The system which generated this result transmitted reference range: 10*3/?L. The reference range was not used to interpret this result as normal/abnormal. GRAN MAT (NEUT) % (test code = 770-8) 62.7 % IMM GRAN % (test code = 5352597843) 0.40 % LYMPH % (test code = 736-9) 25.7 % MONO % (test code = 5905-5) 7.8 % EOS % (test code = 713-8) 2.8 % BASO % (test code = 706-2) 0.6 % GRAN MAT x10^3(ANC) (test code = 8768626862) 8.40 10*3/uL 1.88-7.09 H IMM GRAN x10^3 (test code = 8809450452) 0.06 10*3/uL 0-0.06 LYMPH x10^3 (test code = 731-0) 3.44 10*3/uL 1.32-3.29 H MONO x10^3 (test code = 742-7) 1.04 10*3/uL 0.33-0.92 H EOS x10^3 (test code = 711-2) 0.38 10*3/uL 0.03-0.39 BASO x10^3 (test code = 704-7) 0.08 10*3/uL 0.01-0.07 H Lab Interpretation (test code = 92512-4) [facility]normal [facility]ARS[facility] (COVID-19) by RT-PCR (HIGH RISK) 2021-06-29 00:00:00* Test Item Value Reference Range Interpretation Comme nts SARS-CoV-2 INTERPRETATION (t est code = 23765) NEGATIVE SOURCE (test code = 08048) NOT SPECIFIED SARS-CoV-2 (COVID-19) by RT-PCR (HIGH RISK)2021-06-29 00:00:00* Test Item Value Reference Range Interpretation Comme nts SARS-CoV-2 INTERPRETATION (t est code = 00621) NEGATIVE SOURCE (test code = 99385) NOT SPECIFIED COMPREHENSIVE METABOLIC [id number] 00:00:00* Test Item Value Reference Range Interpretation Comme nts GLUCOSE (test code = 2217) 92 MG/DL BUN (test code = 2208) 11 MG/DL CREATININE (test code = 2214) 0.80 MG/DL eGFR AMER. (test cod e = 64731) 108 ML/MIN/1.73 eGFR NON- AMER. (test code = 48365) 94 ML/MIN/1.73 CALC BUN/CREAT (test code = 2235) 14 RATIO SODIUM (test code = 2231) 142 MEQ/L POTASSIUM (test code = 2228) 4.3 MEQ/L CHLORIDE (test code = 2215) 106 MEQ/L CARBON DIOXIDE (test code = 2206) 27 MEQ/L CALCIUM (test code = 2209) 9.3 MG/DL PROTEIN, TOTAL (test code = 2229) 6.6 G/DL ALBUMIN (test code = 2201) 4.3 G/DL CALC GLOBULIN (test code = 2240) 2.3 G/DL CALC A/G RATIO (test code = 2234) 1.9 RATIO BILIRUBIN, TOTAL (test code = 2207) 0.3 MG/DL ALKALINE PHOSPHATASE (test code = 2204) 55 U/L AST (test code = 2218) 13 U/L ALT (test code = 2219) 11 U/L COMPREHENSIVE METABOLIC [id number] 00:00:00* Test Item Value Reference Range Interpretation Comme nts GLUCOSE (test code = 2217) 92 MG/DL BUN (test code = 2208) 11 MG/DL CREATININE (test code = 2214) 0.80 MG/DL eGFR AMER. (test cod e = 33281) 108 ML/MIN/1.73 eGFR NON- AMER. (test code = 33418) 94 ML/MIN/1.73 CALC BUN/CREAT (test code = 2235) 14 RATIO SODIUM (test code = 2231) 142 MEQ/L POTASSIUM (test code = 2228) 4.3 MEQ/L CHLORIDE (test code = 2215) 106 MEQ/L CARBON DIOXIDE (test code = 2206) 27 MEQ/L CALCIUM (test code = 2209) 9.3 MG/DL PROTEIN, TOTAL (test code = 2229) 6.6 G/DL ALBUMIN (test code = 2201) 4.3 G/DL CALC GLOBULIN (test code = 2240) 2.3 G/DL CALC A/G RATIO (test code = 2234) 1.9 RATIO BILIRUBIN, TOTAL (test code = 2207) 0.3 MG/DL ALKALINE PHOSPHATASE (test code = 2204) 55 U/L AST (test code = 2218) 13 U/L ALT (test code = 2219) 11 U/L [id number] 00:00:00* Test Item Value Reference Range Interpretation Comme nts AMYLASE (test code = 2205) 52 U/L [id number] 00:00:00* Test Item Value Reference Range Interpretation Comme nts AMYLASE (test code = 5) 52 U/L [id number] 00:00:00* Test Item Value Reference Range Interpretation Comme nts LIPASE (test code = 2057) 20 U/L [id number] 00:00:00* Test Item Value Reference Range Interpretation Comme nts LIPASE (test code = 2057) 20 U/L [id number] 00:00:00* Test Item Value Reference Range Interpretation Comme nts LIPASE (test code = 2057) 20 U/L CULTURE, URINE [ADDED]2021-01-20 00:00:00* Test Item Value Reference Range Interpretation Comme nts CULTURE, URINE (test code = 49998) SPECIMEN NUMBER: [id number] CULTURE, URINE [ADDED]2021-01-20 00:00:00* Test Item Value Reference Range Interpretation Comme nts CULTURE, URINE (test code = 20297) SPECIMEN NUMBER: [id number] GC, AMPLIFIED, [id number] 00:00:00* Test Item Value Reference Range Interpretation Comme nts GONORRHEA, NAAT (test code = 59980) NEGATIVE GC, AMPLIFIED, [id number] 00:00:00* Test Item Value Reference Range Interpretation Comme nts GONORRHEA, NAAT (test code = 64593) NEGATIVE [id number] 00:00:00* Test Item Value Reference Range Interpretation Comme nts RPR RESULT (test code = 3501) NON-REACTIVE RPR TITER (test code = 3500) NOT INDIC. TITER [id number] 00:00:00* Test Item Value Reference Range Interpretation Comme nts RPR RESULT (test code = 3501) NON-REACTIVE RPR TITER (test code = 3500) NOT INDIC. TITER [id number] 00:00:00* Test Item Value Reference Range Interpretation Comme nts RPR RESULT (test code = 3501) NON-REACTIVE RPR TITER (test code = 3500) NOT INDIC. TITER VAGINAL PATHOGENS DNA [id number] 00:00:00* Test Item Value Reference Range Interpretation Comme nts CONRAD SPECIES (test code = 85188) NEGATIVE G. VAGINALIS (test code = 52002) POSITIVE T. VAGINALIS (test code = 43064) NEGATIVE VAGINAL PATHOGENS DNA [id number] 00:00:00* Test Item Value Reference Range Interpretation Comme nts CONRAD SPECIES (test code = 94176) NEGATIVE G. VAGINALIS (test code = 70829) POSITIVE T. VAGINALIS (test code = 22224) NEGATIVE HIV AB/AG COMBO RFLX [id number] 00:00:00* Test Item Value Reference Range Interpretation Comme nts HIV 1/2 4TH GEN, RFLX CONF ( test code = 3514) NON-REACTIVE HIV AB/AG COMBO RFLX [id number] 00:00:00* Test Item Value Reference Range Interpretation Comme nts HIV 1/2 4TH GEN, RFLX CONF ( test code = 3514) NON-REACTIVE ACUTE HEPATITIS [id number] 00:00:00* Test Item Value Reference Range Interpretation Comme nts HEPATITIS A IgM (test code = 67274) NON-REACTIVE HEPATITIS B CORE IgM (test c ode = 4644) NON-REACTIVE HEPATITIS B SURF AG (test co de = 2739) NON-REACTIVE HEPATITIS C ANTIBODY (test c ode = 4675) NON-REACTIVE INTERPRETATION HEPATITIS A: (test code = 2552) (NOTE) INTERPRETATION HEPATITIS B: (test code = 90978) (NOTE) INTERPRETATION HEPATITIS C: (test code = 36649) (NOTE) ACUTE HEPATITIS [id number] 00:00:00* Test Item Value Reference Range Interpretation Comme nts HEPATITIS A IgM (test code = 49044) NON-REACTIVE HEPATITIS B CORE IgM (test c ode = 4644) NON-REACTIVE HEPATITIS B SURF AG (test co de = 2739) NON-REACTIVE HEPATITIS C ANTIBODY (test c ode = 4675) NON-REACTIVE INTERPRETATION HEPATITIS A: (test code = 2552) (NOTE) INTERPRETATION HEPATITIS B: (test code = 45054) (NOTE) INTERPRETATION HEPATITIS C: (test code = 88316) (NOTE) CHLAMYDIA, AMPLIFIED, [id number] 00:00:00* Test Item Value Reference Range Interpretation Comme nts CHLAMYDIA, NAAT (test code = 42888) NEGATIVE CHLAMYDIA, AMPLIFIED, [id number] 00:00:00* Test Item Value Reference Range Interpretation Comme nts CHLAMYDIA, NAAT (test code = 07883) NEGATIVE CULTURE, [id number] 00:00:00* Test Item Value Reference Range Interpretation Comme nts CULTURE, URINE (test code = 34203) SPECIMEN NUMBER: [id number] CULTURE, [id number] 00:00:00* Test Item Value Reference Range Interpretation Comme nts CULTURE, URINE (test code = 64755) SPECIMEN NUMBER: [id number] CULTURE, [id number] 00:00:00* Test Item Value Reference Range Interpretation Comme nts CULTURE, URINE (test code = 74690) SPECIMEN NUMBER: [id number] CULTURE, [id number] 00:00:00* Test Item Value Reference Range Interpretation Comme nts CULTURE, URINE (test code = 05781) SPECIMEN NUMBER: [id number] SARS-CoV-2 (COVID-19) by RT-PCR (HIGH RISK)2020-11-03 00:00:00* Test Item Value Reference Range Interpretation Comme nts SARS-CoV-2 INTERPRETATION (t est code = 94218) NEGATIVE SOURCE (test code = 44577) NOT SPECIFIED SARS-CoV-2 (COVID-19) by RT-PCR (HIGH RISK)2020-11-03 00:00:00* Test Item Value Reference Range Interpretation Comme nts SARS-CoV-2 INTERPRETATION (t est code = 16909) NEGATIVE SOURCE (test code = 12088) NOT SPECIFIED CHLAMYDIA, AMPLIFIED, [id number] 00:00:00* Test Item Value Reference Range Interpretation Comme nts CHLAMYDIA, NAAT (test code = 97713) NEGATIVE CHLAMYDIA, AMPLIFIED, [id number] 00:00:00* Test Item Value Reference Range Interpretation Comme nts CHLAMYDIA, NAAT (test code = 08714) NEGATIVE GC, AMPLIFIED, [id number] 00:00:00* Test Item Value Reference Range Interpretation Comme nts GONORRHEA, NAAT (test code = 48742) NEGATIVE GC, AMPLIFIED, [id number] 00:00:00* Test Item Value Reference Range Interpretation Comme nts GONORRHEA, NAAT (test code = 10202) NEGATIVE VAGINAL PATHOGENS DNA [id number] 00:00:00* Test Item Value Reference Range Interpretation Comme nts CONRAD SPECIES (test code = 53315) NEGATIVE G. VAGINALIS (test code = 04738) POSITIVE T. VAGINALIS (test code = 68398) NEGATIVE VAGINAL PATHOGENS DNA [id number] 00:00:00* Test Item Value Reference Range Interpretation Comme nts CONRAD SPECIES (test code = 03054) NEGATIVE G. VAGINALIS (test code = 95807) POSITIVE T. VAGINALIS (test code = 09074) NEGATIVE GC, AMPLIFIED, [id number] 00:00:00* Test Item Value Reference Range Interpretation Comme nts GONORRHEA, TMA (test code = 79679) NEGATIVE [id number] 00:00:00* Test Item Value Reference Range Interpretation Comme nts RPR RESULT (test code = 3501) NON-REACTIVE RPR TITER (test code = 3500) NOT INDIC. TITER [id number] 00:00:00* Test Item Value Reference Range Interpretation Comme nts RPR RESULT (test code = 3501) NON-REACTIVE RPR TITER (test code = 3500) NOT INDIC. TITER [id number] 00:00:00* Test Item Value Reference Range Interpretation Comme nts RPR RESULT (test code = 3501) NON-REACTIVE RPR TITER (test code = 3500) NOT INDIC. TITER HIV AB/AG COMBO RFLX [id number] 00:00:00* Test Item Value Reference Range Interpretation Comme nts HIV 1/2 4TH GEN, RFLX CONF ( test code = 3514) NON-REACTIVE PAP TEST, THINPREP, [id number] 00:00:00* Test Item Value Reference Range Interpretation Comme nts SOURCE: (test code = 8001) Cervical/Endocervical SLIDES: (test code = 8011) 1 LMP: (test code = 8021) 05/11/2020 SPECIMEN ADEQUACY: (test code = 32850) (NOTE) INTERPRETATION: (test code = 53017) NILM/NO EPITH. ABNORMALITY;SEE BELOW TRUCK SAFETY INSPECTOR: (test code = 8101) JACKSON Mao(ASCP) LOCATION: (test code = 84798) (NOTE) CPT: (test code = 8140) (NOTE) VAGINAL PATHOGENS DNA [id number] 00:00:00* Test Item Value Reference Range Interpretation Comme nts CONRAD SPECIES (test code = 89872) NEGATIVE G. VAGINALIS (test code = 51783) NEGATIVE T. VAGINALIS (test code = 08510) NEGATIVE HIV AB/AG COMBO RFLX [id number] 00:00:00* Test Item Value Reference Range Interpretation Comme nts HIV 1/2 4TH GEN, RFLX CONF ( test code = 3514) NON-REACTIVE VAGINAL PATHOGENS DNA [id number] 00:00:00* Test Item Value Reference Range Interpretation Comme nts CONRAD SPECIES (test code = 73871) NEGATIVE G. VAGINALIS (test code = 53364) NEGATIVE T. VAGINALIS (test code = 74704) NEGATIVE PAP TEST, THINPREP, [id number] 00:00:00* Test Item Value Reference Range Interpretation Comme nts SOURCE: (test code = 8001) Cervical/Endocervical SLIDES: (test code = 8011) 1 LMP: (test code = 8021) 05/11/2020 SPECIMEN ADEQUACY: (test code = 33388) (NOTE) INTERPRETATION: (test code = 83147) NILM/NO EPITH. ABNORMALITY;SEE BELOW TRUCK SAFETY INSPECTOR: (test code = 8101) JACKSON Mao(ASCP) LOCATION: (test code = 85927) (NOTE) CPT: (test code = 8140) (NOTE) ACUTE HEPATITIS [id number] 00:00:00* Test Item Value Reference Range Interpretation Comme nts HEPATITIS A IgM (test code = 29211) NON-REACTIVE HEPATITIS B CORE IgM (test c ode = 4644) NON-REACTIVE HEPATITIS B SURF AG (test co de = 2739) NON-REACTIVE HEPATITIS C ANTIBODY (test c ode = 4675) NON-REACTIVE INTERPRETATION HEPATITIS A: (test code = 2552) (NOTE) INTERPRETATION HEPATITIS B: (test code = 82161) (NOTE) INTERPRETATION HEPATITIS C: (test code = 48438) (NOTE) HPV HIGH RISK WITH GENOTYPE, [id number] 00:00:00* Test Item Value Reference Range Interpretation Comme nts HPV HIGH RISK INTERP (test c ode = 89725) NEGATIVE HPV 16 (test code = 83692) NEGATIVE HPV 18 (test code = 99447) NEGATIVE HPV, HR, OTHER GENOTYPES (te st code = 83869) NEGATIVE HPV HIGH RISK WITH GENOTYPE, [id number] 00:00:00* Test Item Value Reference Range Interpretation Comme nts HPV HIGH RISK INTERP (test c ode = 62631) NEGATIVE HPV 16 (test code = 43207) NEGATIVE HPV 18 (test code = 39647) NEGATIVE HPV, HR, OTHER GENOTYPES (te st code = 47733) NEGATIVE ACUTE HEPATITIS [id number] 00:00:00* Test Item Value Reference Range Interpretation Comme nts HEPATITIS A IgM (test code = 62652) NON-REACTIVE HEPATITIS B CORE IgM (test c ode = 4644) NON-REACTIVE HEPATITIS B SURF AG (test co de = 2739) NON-REACTIVE HEPATITIS C ANTIBODY (test c ode = 4675) NON-REACTIVE INTERPRETATION HEPATITIS A: (test code = 2552) (NOTE) INTERPRETATION HEPATITIS B: (test code = 91546) (NOTE) INTERPRETATION HEPATITIS C: (test code = 95155) (NOTE) CHLAMYDIA, AMPLIFIED, [id number] 00:00:00* Test Item Value Reference Range Interpretation Comme nts CHLAMYDIA, TMA (test code = 80127) NEGATIVE CHLAMYDIA, AMPLIFIED, [id number] 00:00:00* Test Item Value Reference Range Interpretation Comme nts CHLAMYDIA, TMA (test code = 27782) NEGATIVE GC, AMPLIFIED, [id number] 00:00:00* Test Item Value Reference Range Interpretation Comme nts GONORRHEA, TMA (test code = 52389) NEGATIVE [id number] 00:00:00* Test Item Value Reference Range Interpretation Comme nts PROLACTIN (test code = 2800) 11.0 NG/ML [id number] 00:00:00* Test Item Value Reference Range Interpretation Comme nts PROLACTIN (test code = 2800) 11.0 NG/ML [id number] 00:00:00* Test Item Value Reference Range Interpretation Comme nts TSH, THIRD GENERATION (test code = 2821) 0.793 UIU/ML [id number] 00:00:00* Test Item Value Reference Range Interpretation Comme nts TSH, THIRD GENERATION (test code = 2821) 0.793 UIU/ML [id number] 00:00:00* Test Item Value Reference Range Interpretation Comme nts TSH, THIRD GENERATION (test code = 2821) 0.793 UIU/ML Notes Date/Time Note Provider Source 2023-10-08 13:26:52 AuKURHmW1JrnEn9V+S9O ttbW6Xmttsr 7Yu6slddooeycfwEdfeWzLa4i56z3Gw H90923-32-24K80:26:52 Anne Marie Durham is a 43 year old femalePt states that her pharmacy doesn't have dextroamphetamine-amphetamine 30 mg tablet (AdderalL) in stock but they do have dextroamphetamine-amphetamine 20 mg tablet (AdderalL)She is requesting the dosage be changed to 20mg with an adjusted quantity to equal her current 30mg dosage. She states she currently takes two 30mg pills daily. Please contact pt if necessary [phone] (home)[id number] [place] [address] [address] [place] [facility] [facility]: Byanjypfrwaxqq signed by Ravi Deal at 10/08/2023 1:30 PM QQK22829-8Vyhmvwjpi encounter VydxTY6907-35-92J03:30:43Teleph one encounter NoteTXT1.2.840.331859.1.13.104. 2.7.2.037810|[id number] [facility] for [facility] jczw97787-6TshuUGDWWLYGITJFfogk tted C-CDA narrative cuwk646257247RwNjefyz [address] TtzpFqwjpopblPzsmewpsfFXHB10472 [address]AUKFYVZWRKKRLXLWDCACGE[address] -12-20T13:30:431.2.840.174236.1 .72.3.15|1.2.840.245070.1.13.10 4.2.7.2.727879_[id number] Ravi Deal [facility] 2023-07-03 11:58:29 cat3YSAKaj08oWkpwy+K qywM9sP6pDv NlaFRTkMVYhzcSQlFLIVRITkcaU0jKw HF9612-45-74K94:58:29 Recent VisitsDate Type Provider Dept 02/03/23 Office Visit Laura Beltran MD [facility] 12/06/22 Office Visit Trena Russell PA [facility] 11/20/22 Office Visit Vaughn Tan FNP [facility] 09/25/22 Office Visit Laura Beltran MD [facility] 07/09/22 Office Visit Laura Beltran MD [facility] 06/04/22 Office Visit Laura Beltran MD [facility] Showing recent visits within past 540 days with a meds authorizing provider and meeting all other requirementsFuture AppointmentsNo visits were found meeting these conditions.Showing future appointments within next 150 days with a meds authorizing provider and meeting all other requirementsLast refill wasdextroamphetamine-amphetamin e (ADDERALL) 30 mg tablet 60 tablet 0 06/09/2023 58718-8Dbqayofdh encounter HlygGW6205-84-69X91:58:50Teleph one encounter NoteTXT1.2.840.712477.1.13.104. 2.7.2.809986|[id number] [facility] for patient ukfa12729-2IjflFDGESKRKMQ[address] FbrtRttthdhzkEmcbbmrhtSCHC[address]TDNIRNQOJPYRKFPLNZCJFF7603 -09-14T11:58:501.2.840.668690.1 .72.3.15|1.2.840.412236.1.13.10 4.2.7.2.727879_[id number] [facility] 2023-07-03 11:50:58 QO+gEZUve8vMBgxnsZOW 172roQQtlSR Lr+DcbHbjF+75TyK3aC4Dw4tUvi+81M kK9737-87-28G99:50:58 Anne Marie Durham is a 42 year old femalePt calling to have refill on medication and has 10 supplements left.dextroamphetamine-amphetam ine (ADDERALL) 30 mg tabletPlease [id number] - [place], [place] - [address] [facility] [employer] [facility] [address]Raeax: [phone] Zrkbjqqyhusrvw signed by Yao Winston at 07/03/2023 11:54 AM AZS54221-6Laqykwssg encounter YpjdFJ9495-66-95L42:54:26Teleph one encounter NoteTXT1.2.840.301141.1.13.104. 2.7.2.325357|[id number] ble for patient veji84068-0AnyjSBRVHOBQFZ[address] Wilson StreetTXTX[address]GKSMPVQRJPTTORTGFDIRFU5406 -09-14T11:54:261.2.840.355181.1 .72.3.15|1.2.840.718496.1.13.10 4.2.7.2.727879_[id number] [facility] 2023-06-16 08:03:57 oC8+ttUS0mtUDNL7jffZ LV8MgnAde9+ 8DfzxIHfN9+GaRj1VIhAxzuIu7jGJD/ MV7110-55-75X80:03:57 Patient presented to clinic with c/o face burning. Face was red, irritated, lips, eyes and soft tissues were swollen. Patient reported she cleaned her face wit arm & hammer body wipes and charcoal. I advised the patient to seek care in the ED as she may need IV steroids and there medications for an allergic reaction. Patient verbalized understanding.Sirena Crowe LVN 06/16/2023 8:08 AM 99830-2Inezladie encounter LktrDD0428-60-64Y50:08:53Teleph one encounter NoteTXT1.2.840.235100.1.13.104. 2.7.2.612136|[id number] ble for patient [id number] shavon Crowe [address]TXTX[address] 78416MSOJDEPEOQXPFCKJGJPODO8259 -08-28T08:08:531.2.840.034481.1 .72.3.15|1.2.840.406819.1.13.10 4.2.7.2.727879_[id number] Sirena Crowe ADMISSION LIAISON [facility] 2023-06-09 10:48:12 vxxI6BgSdLC+6a27b2Fb rBfZ2MQF1og IRaHHJag6e78u/6NtGHZDKkROJKfZaY EC8216-04-19E42:48:12 Recent VisitsDate Type Provider Dept 02/03/23 Office Visit Laura Beltran MD [facility] 12/06/22 Office Visit Trena Russell PA [facility] 11/20/22 Office Visit Vaughn Tan FNP [facility] 09/25/22 Office Visit Laura Beltran MD [facility] 07/09/22 Office Visit Laura Beltran MD [facility] 06/04/22 Office Visit Laura Beltran MD [facility] Showing recent visits within past 540 days with a meds authorizing provider and meeting all other requirementsFuture AppointmentsNo visits were found meeting these conditions.Showing future appointments within next 150 days with a meds authorizing provider and meeting all other requirementsLast refill wasdextroamphetamine-amphetamin e (ADDERALL) 30 mg tablet 60 tablet 0 05/05/2023 27615-2Ychdfdmib encounter QsicVD1912-32-72E20:48:36Teleph one encounter NoteTXT1.2.840.994432.1.13.104. 2.7.2.561323|[id number] [facility] zyxp25626-8BiivEIXRYFMJVS[address] UeqxAcbbzbeejCwhuozqpcSMKC05911 85298ZFHTYVANDGCXUPSWSSAEBU5679 -08-21T10:48:361.2.840.326904.1 .72.3.15|1.2.840.270917.1.13.10 4.2.7.2.727879_[id number] [facility] 2023-06-09 09:19:15 18XGVjjk6ZyOgHUecf+a t6DYaYEVbjg F9ktJ89U9fggsDQtxLoYTfWdgp80a6w rP6914-11-40S19:19:15 Patient is requesting a refill.[facility] #[id number] - [address] AT [facility] [address]IVEPhone: 69[address]-0Qqrscfvzr encounter XsfxCE3297-76-99J70:19:48Teleph one encounter NoteTXT1.2.840.739261.1.13.104. 2.7.2.518958|[id number] [facility] bwcm14398-3DxirRINGQSGPVH[address] TvxiKknxybavgAwlyxwmqbHYUT86864 86936PVPJYOGKONIUZQQBSNCTCP8544 -08-21T09:19:481.2.840.263928.1 .72.3.15|1.2.840.448931.1.13.10 4.2.7.2.727879_[id number] [facility]"
--- NOTE | 2023-11-08 15:08 | EDPHYS ---
Physician Documentation [facility] Name: Anne Marie Cruz Age: 43 yrs Sex: Female : 1980 Arrival Date: 11/08/2023 Time: 14:40 Bed IW3 Private MD: ED Physician Barrera Higgins HPI: 11/08 15:10 This 43 yrs old Female presents to ER via Ambulatory with complaints of Dog ec2 Bite - left leg. 15:10 Patient arrives today for evaluation of a dog bite to the left leg. States that she was ec2 bitten 2 days ago in the left calf. Reports some pain and discomfort at the area. States that the dog is a friends dog and she is unsure of the status of the vaccinations. Patient reports no fevers or chills, no nausea or vomiting. From reports from the patient dog's been acting normally.. Historical: - Allergies: 15:02 Latex, Natural Rubber; nj1 - PMHx: 15:02 Bipolar disorder; Anxiety; Chronic pain; nj1 - PSHx: 15:02 hernia repair; nj1 - Immunization history:: Adult Immunizations up to date. - Social history:: Smoking status: . ROS: 15:10 Constitutional: as per hpi ec2 Exam: 15:10 Constitutional: GEN: NAD Head: atraumatic Eyes: EOMI Ears: External ears are ec2 normal. CV: regular rate LUNGS: no respiratory distress ABD: non-distended SKIN: Small puncture wounds noted to the posterior calf, scant erythema, no discharge noted, no crepitus, minimal ecchymosis. NEURO: moves all extremities equally Vital Signs: 15:03 BP 159 / 94; Pulse 89; Resp 16; Temp 97.4(TE); Pulse Ox 100% on R/A; Pain 5/10; nj1 15:03 Pain Scale: Adult nj1 MDM: 15:08 Patient medically screened. ec2 15:10 Data reviewed: vital signs. ED course: Patient arrives today for evaluation of a dog ec2 bite. Examination remarkable for skin findings as noted above. Will start the patient on Augmentin and instructed her on wound closure. Discussed rabies postexposure and decided against it given the the dog behaving normally. I considered other processes such as gas gangrene, bony fracture.. Administered Medications: 15:17 Drug: Boostrix Tdap IM 0.5 ml IM once; as a single dose Route: IM; Site: right hb ventrogluteal; Disposition Summary: 11/08/23 15:08 Discharge Ordered Notes: Location: Home ec2 Condition: Stable ec2 Diagnosis - Bitten by dog ec2 Followup: ec2 - With: Private Physician - When: - Reason: Recheck today's complaints Discharge Instructions: - Discharge Summary Sheet ec2 - Animal Bite, Adult, [id number] ec2 Forms: - Medication Reconciliation Form ec2 - Thank You Letter ec2 - Antibiotic Education ec2 - Prescription Opioid Use ec2 - Patient Portal Instructions ec2 - Leadership Thank You Letter ec2 Prescriptions: - Augmentin 875-125 mg Oral Tablet - take 1 tablet ORAL route every 12 hours for 10 days; 20 tablet; Refills: 0, ec2 Product Selection Permitted Signatures: Anne Marie Lamas RN RN Courtney Perry RN RN nj1 Barrera Higgins MD MD ec2
--- NOTE | 2023-11-08 15:08 | ER ---
Nurse's Notes [facility] [place] Name: Anne Marie Cruz Age: 43 yrs Sex: Female : 1980 Arrival Date: 11/08/2023 Time: 14:40 Bed IW3 Private MD: Diagnosis: Bitten by dog Presentation: 11/08 15:01 Chief complaint: Bit by fiend's dog on left calf 2 days ago, concerned about swelling nj1 and bruising. Coronavirus screen: At this time, the client does not indicate any symptoms associated with coronavirus-19. Ebola Screen: No symptoms or risks identified at this time. Initial Sepsis Screen: Does the patient meet any 2 criteria? No. Patient's initial sepsis screen is negative. Does the patient have a suspected source of infection? No. Patient's initial sepsis screen is negative. Risk Assessment: Do you want to hurt yourself or someone else? Patient reports no desire to harm self or others. Onset of symptoms was November 06, 2023. 15:01 Method Of Arrival: Ambulatory [facility] 15:04 Acuity: PARISH 4 nj Historical: - Allergies: 15:02 Latex, Natural Rubber; nj1 - PMHx: 15:02 Bipolar disorder; Anxiety; Chronic pain; nj1 - PSHx: 15:02 hernia repair; nj1 - Immunization history:: Adult Immunizations up to date. - Social history:: Smoking status: . Vital Signs: 15:03 BP 159 / 94; Pulse 89; Resp 16; Temp 97.4(TE); Pulse Ox 100% on R/A; Pain 5/10; nj1 15:03 Pain Scale: Adult nj1 ED Course: 14:44 Patient arrived in ED. im 14:50 Barrera Higgins MD is Attending Physician. ec2 15:03 Arm band placed on. nj1 15:04 Triage completed. nj1 Administered Medications: 15:17 Drug: Boostrix Tdap IM 0.5 ml IM once; as a single dose Route: IM; Site: right hb ventrogluteal; Outcome: 15:08 Discharge ordered by . ec2 15:19 Patient left the ED. Signatures: Anne Marie Lamas RN RN Courtney Perry RN RN nj Heather Torres im Higgins, Barrera, MD MD ec2
[2023-11-08 17:32] VITALS: BP 159/94; TEMP 97.4; O2SAT 100
== END ==
LOC: ER 14:40
DX: S81.852A Open bite, left lower leg, initial encounter (principal); W54.0XXA Bitten by dog, initial encounter; F31.9 Bipolar disorder, unspecified; F41.9 Anxiety disorder, unspecified; Z91.040 Latex allergy status; Z23 Encounter for immunization
CPT/HCPCS: 96372; 99283

== ENCOUNTER 2024-01-26 21:13 | Emergency (ER) | payer OTHER, SELFPAY ==
--- OUTSIDE RECORDS SUMMARY | 2024-01-26 21:19 | XMS REPORT | Continuity of Care Document ---
Author Name Unknown Address [address] [facility] [address] [place] [address] [facility] thconnect Address [address] [facility] [address] [place] [address] Care Team Providers Care Special Education Resource Room Teacher Name Role Phone Roseanne Otto TAYLOR Primary Care Physician ENEIDA CANNON Attending Clinician Unavail able Laura Beltran MD Attending Clinician + [phone] LAURA BELTRAN Attending Clinician UnaVivienne Be Attending Clinician [phone] Unknown, Attending Attending Clinician Unavailab VIVIENNE Koo Attending Clinician Unavailable Doctor Unassigned, Candelaria Attending Clinician U justinaailGABY Ocampo Attending Clinician Unavailable GABY PALMA Attending Clinician Unavailable MAIKEL SIGALA Attending Clinician Unavailable [facility] STRONG Attending Clinician Unavailable Mc Strong MD Attending Clinician [phone] Feroz Barakat MD Attending Clinician [phone] FEROZ BARAKAT Attending Clinician Unavailab YESSENIA English Attending Clinician Unavailable Nurse, [facility] Attending Clinician Un available Yessenia Cruz Attending Clinician [phone] UNKNOWN, ATTENDING Attending Clinician Unavailab le Provider, [facility] Attending Clinician Unavailable FLOR URBANO Attending Clinician Unavailable Naresh PARKER, Flor Attending Clinician [phone] Trena Fairbanks Attending Clinician [phone] STU BORGES Attending Clinician Unavailab TRENA Rinaldi Attending Clinician Unavailable VAUGHN ATN Attending Clinician Unavailable Britney CRAB BUTCHER, Vaughn Attending Clinician [phone] ARNEL ALARCON Attending Clinician Unavailable MILA KEYS Attending Clinician Unavailable Jamar CRAB BUTCHER, Mila Attending Clinician [phone] MUNDO PEDROZA Attending Clinician Unavailable Yovany CRAB BUTCHER, Mundo Attending Clinician [phone] Lora Gould RN Attending Clinician Unavailable Marc Khoury MD Attending Clinician [phone] Marilyn CRAB BUTCHER, Nayla Larios Attending Clinician [phone] JORDAN HALEY Attending Clinician UnavailRoxy ANGELPJhoana Attending Clinician [phone] JHOANA ARNOLD Attending Clinician Unavailalthea moore Pob, [facility] Attending Clinician UnavailCristal Aquino MD Attending Clinician [phone] CRISTAL SEAMAN Attending Clinician Unava KELSI Borrego Attending Clinician Unavailab Kelsi Wang DO Attending Clinician [phone] JHOANA ARNOLD Admitting Clinician Unavailalthea moore Payers Payer Name Policy Type Policy Number Effective Date Expirati on Date Source [facility] MEDICAID [id number] 2017 00:00:00 [facility] [id number] [id number] 00:00:00 [facility] [id number] 2023 00:00:00 MEDICAID OF [place] [id number] 2017 00:00:00 Problems Condition Name Condition Details Condition Category Status Onset Date Resolution Date Last Treatment Date Treating Clinician Comments Source Cellulitis of left lower extremity Cellulitis of left lower extremity Disease Active 11-20 00:00: 00 [facility] Abscess Abscess Disease Active 2- 00:00: 00 [facility] Skin sore Skin sore Disease Active 2- 00:00: 00 [facility] Follow-up exam Follow-up exam Disease Active 2- 00:00: 00 [facility] Bipolar 1 disorder, manic, mild Bipolar 1 disorder, manic, mild Disease Active 9-29 00:00: 00 [facility] Attention deficit disorder (ADD) in adult Attention deficit disorder (ADD) in adult Disease Active 8-09 00:00: 00 [facility] Allergies, Adverse Reactions, Alerts Allergy Name Allergy Type Status Severity Reaction(s) Onset Date Inactive Date Treating Clinician Comments Source NO KNOWN ALLERGIE S Drug Class Active [facility] Social History Social Habit Start Date Stop Date Quantity Comments Source Gender identity [facility] Sexual orientation U [facility] Alcohol intake 2024-01-07 00:00:00 2024-01-07 00:00:00 Ex-drinker (finding) [facility] Tobacco use and exposure 2024-01-04 00:00:00 2024-01-04 00:00:00 Smokeless tobacco non-user [facility] History of Social function 2023-08-11 00:00:00 2023-08-11 00:00:00 [facility] Exposure to SARS-CoV-2 (event) 2023-01-28 00:00:00 2023-02-07 09:18:00 Not sure [facility] History of tobacco use 2010-03-28 00:00:00 Cigarette Smoker [facility] Sex Assigned At 1980 00:00:00 1980 00:00:00 [facility] Smoking Status Start Date Stop Date Source Smokes tobacco daily 2024-01-04 00:00:00 [facility] Ex-smoker 2022-07-09 00:00:00 2022-07-09 00:00:00 [facility] Medications Ordered Medication Name Filled Medication Name Start Date Stop Date Current Medication? Ordering Clinician Indication Dosage Frequency Signature (SIG) Comments Components Source dextroamphe tamine-amph etamine (ADDERALL) 30 mg tablet 3-18 00:00: 00 Yes [id number] 30mg Take 1 tablet by mouth in the morning and 1 tablet in the evening. [facility] ketorolac (TORADOL) injection 30 mg 01-03 21:45: 00 01-03 21:11 :00 No [id number] 30mg [facility] predniSONE 20 mg tablet 01-03 00:00: 00 01-06 00:00 :00 No [id number] 40mg Take 2 tablets by mouth in the morning for 5 days. [facility] hydrocortis one 2.5 % cream 01-03 00:00: 00 01-06 00:00 :00 No [id number] Apply to area(s) 2 (two) times daily for 7 days. [facility] dextroamphe tamine-amph etamine (ADDERALL) 20 mg tablet 12-11 00:00: 00 Yes [id number] 20mg Take 1 tablet by mouth in the morning and 1 tablet at noon and 1 tablet in the evening. [facility] dextroamphe tamine-amph etamine (ADDERALL) 30 mg tablet 12-11 00:00: 00 12-31 00:00 :00 No [id number] 30mg Take 1 tablet by mouth in the morning and 1 tablet in the evening. [facility] dextroamphe tamine-amph etamine (ADDERALL) 30 mg tablet 20 00:00: 00 12-11 00:00 :00 No [id number] 30mg Take 1 tablet by mouth in the morning and 1 tablet in the evening. [facility] dextroamphe tamine-amph etamine (ADDERALL) 30 mg tablet 2-19 00:00: 00 12-09 00:00 :00 No [id number] 30mg Take 1 tablet by mouth in the morning and 1 tablet in the evening. [facility] dextroamphe tamine-amph etamine (ADDERALL) 30 mg tablet 11-10 00:00: 00 12-08 00:00 :00 No [id number] 30mg Take 1 tablet by mouth in the morning and 1 tablet in the evening. [facility] ketorolac (TORADOL) injection 30 mg 2022-10 23:45: 00 10-16 23:05 :00 No [id number] 30mg [facility] ibuprofen 800 mg tablet 2022-10 00:00: 00 Yes [id number] 800mg Take 1 tablet by mouth every 8 (eight) hours as needed (With meals). [facility] promethazin e-dextromet horphan 6.25-15 mg/5 mL syrup 2022-10 00:00: 00 Yes [id number] 5mL Take 5 mL by mouth 4 (four) times daily as needed for Cough. [facility] albuterol 90 mcg/actuati on inhaler 2022-10 00:00: 00 Yes [id number] 2{puff} Inhale 2 Puffs every 6 (six) hours as needed for Wheezing or Shortness of Breath. [facility] fluticasone propionate 50 mcg/actuati on nasal spray 2022-10 00:00: 00 Yes [id number] Use two sprays in each nostril daily for a week, then use one spray in each nostril daily [facility] nirmatrelvi r-ritonavir 300 mg (150 mg x 2)-100 mg tablet 2022-10 00:00: 00 11-10 00:00 :00 No [id number] 3{tbl} Take 3 tablets by mouth in the morning and 3 tablets in the evening. [facility] dextroamphe tamine-amph etamine (ADDERALL) 20 mg tablet 2022-10 00:00: 00 11-10 00:00 :00 No [id number] 20mg Take 1 tablet by mouth in the morning and 1 tablet at noon and 1 tablet in the evening. [facility] dextroamphe tamine-amph etamine (ADDERALL) 30 mg tablet 2022-10 2-18 00:00: 00 10-08 00:00 :00 No [id number] 30mg Take 1 tablet by mouth in the morning and 1 tablet in the evening. [facility] dextroamphe tamine-amph etamine (ADDERALL) 30 mg tablet 2022-10 00:00: 00 10-06 00:00 :00 No [id number] 30mg Take 1 tablet by mouth in the morning and 1 tablet in the evening. [facility] dextroamphe tamine-amph etamine (ADDERALL) 30 mg tablet 2022-10 00:00: 00 09-17 00:00 :00 No [id number] 30mg Take 1 tablet by mouth in the morning and 1 tablet in the evening. [facility] dextroamphe tamine-amph etamine (ADDERALL) 30 mg tablet 2022-10 00:00: 00 09-10 00:00 :00 No [id number] 30mg Take 1 tablet by mouth in the morning and 1 tablet in the evening. [facility] dextroamphe tamine-amph etamine (ADDERALL) 30 mg tablet 2022-10 00:00: 00 09-08 00:00 :00 No [id number] 30mg Take 1 tablet by mouth in the morning and 1 tablet in the evening. [facility] dextroamphe tamine-amph etamine (ADDERALL) 30 mg tablet 2022-10 00:00: 00 09-03 00:00 :00 No [id number] 30mg Take 1 tablet by mouth in the morning and 1 tablet in the evening. [facility] VENTOLIN HFA 90 mcg/actuati on inhaler 2022-10 0- 00:00: 00 08-11 00:00 :00 No [id number] INHALE 2 PUFFS BY MOUTH EVERY 6 HOURS NEEDED FOR WHEEZING [facility] ketorolac (TORADOL) injection 30 mg 07-17 02:30: 00 07-17 01:48 :[id number] [facility] traMADoL 50 mg tablet 07-17 00:00: 00 Yes 50mg Take 1 tablet by mouth in the morning and 1 tablet in the evening. [facility] hydrOXYzine 50 mg tablet 07-16 00:00: 00 08-11 00:00 :00 No [id number] 50mg Take 1 tablet by mouth in the morning and 1 tablet at noon and 1 tablet in the evening. [facility] diphenhydrA MINE (BENADRYL) tablet 25 mg 07-15 09:45: 00 07-15 09:40 :00 No 25mg 25 mg, Oral, ONCE, 1 dose, On Fri07/15/23 at 0445, CAMILA [facility] dextroamphe tamine-amph etamine (ADDERALL) 30 mg tablet 07-07 00:00: 00 08-11 00:00 :00 No [id number] 30mg Take 1 tablet by mouth in the morning and 1 tablet in the evening. [facility] VENTOLIN HFA 90 mcg/actuati on inhaler 07-03 00:00: 00 07-28 00:00 :00 No [id number] INHALE 2 PUFFS BY MOUTH EVERY 6 HOURS NEEDED FOR WHEEZING [facility] dextroamphe tamine-amph etamine (ADDERALL) 30 mg tablet 06-09 00:00: 00 07-07 00:00 :00 No [id number] 30mg Take 1 tablet by mouth in the morning and 1 tablet in the evening. [facility] VENTOLIN HFA 90 mcg/actuati on inhaler 06-06 00:00: 00 07-03 00:00 :00 No [id number] INHALE 2 PUFFS BY MOUTH EVERY 6 HOURS NEEDED FOR WHEEZING [facility] VENTOLIN HFA 90 mcg/actuati on inhaler 05-10 00:00: 00 06-06 00:00 :00 No [id number] INHALE 2 PUFFS BY MOUTH EVERY 6 HOURS NEEDED FOR WHEEZING [facility] dextroamphe tamine-amph etamine (ADDERALL) 30 mg tablet 05-05 00:00: 00 06-09 00:00 :00 No [id number] 30mg Take 1 tablet by mouth in the morning and 1 tablet in the evening. [facility] VENTOLIN HFA 90 mcg/actuati on inhaler 04-08 00:00: 00 05-10 00:00 :00 No [id number] INHALE 2 PUFFS BY MOUTH EVERY 6 HOURS NEEDED FOR WHEEZING [facility] dextroamphe tamine-amph etamine (ADDERALL) 30 mg tablet 04-03 00:00: 00 05-05 00:00 :00 No [id number] 30mg Take 1 tablet by mouth in the morning and 1 tablet in the evening. [facility] dextroamphe tamine-amph etamine (ADDERALL) 30 mg tablet 03-10 00:00: 00 04-03 00:00 :00 No [id number] 30mg Take 1 tablet by mouth in the morning and 1 tablet in the evening. [facility] VENTOLIN HFA 90 mcg/actuati on inhaler 03-08 00:00: 00 04-08 00:00 :00 No [id number] INHALE 2 PUFFS BY MOUTH EVERY 6 HOURS NEEDED FOR WHEEZING [facility] ketorolac (TORADOL) injection 30 mg 02-07 15:45: 00 02-07 14:58 :[id number] [facility] promethazin e-dextromet horphan 6.25-15 mg/5 mL syrup 02-07 00:00: 00 02-18 04:59 :00 No [id number] 5mL Take 5 mL by mouth 4 (four) times daily for 10 days. [facility] oseltamivir (TAMIFLU) 75 mg capsule 02-07 00:00: 00 2023- 04-27 04:59 :00 No [id number] 75mg Take 1 capsule by mouth in the morning and 1 capsule in the evening. Do all this for 5 days. [facility] traZODone 100 mg tablet 02-03 10:06: 00 02-03 00:00 :00 No 100mg Take 1 tablet by mouth at bedtime. [facility] dextroamphe tamine-amph etamine (ADDERALL) 30 mg tablet 02-03 00:00: 00 03-10 00:00 :00 No [id number] 30mg Take 1 tablet by mouth in the morning and 1 tablet in the evening. [facility] dextroamphe tamine-amph etamine (ADDERALL) 30 mg tablet 01-06 00:00: 00 02-03 00:00 :00 No [id number] 30mg Take 1 tablet by mouth in the morning and 1 tablet in the evening. [facility] promethazin e-dextromet horphan 6.25-15 mg/5 mL syrup 01-04 00:00: 00 01-15 04:59 :00 No [id number] 5mL Take 5 mL by mouth 4 (four) times daily for 10 days. [facility] traZODone 100 mg tablet 01-03 17:01: 55 Yes 100mg Take 1 tablet by mouth at bedtime. [facility] triamcinolo ne acetonide 0.1 % cream 01-03 00:00: 00 08-11 00:00 :00 No [id number] Apply to area(s) 2 (two) times daily. [facility] albuterol 90 mcg/actuati on inhaler 01-03 00:00: 00 06-06 00:00 :00 No [id number] 2{puff} Inhale 2 Puffs every 6 (six) hours as needed for Wheezing. [facility] benzonatate 100 mg capsule 01-03 00:00: 00 02-03 00:00 :00 No [id number] 200mg Take 2 capsules by mouth every 8 (eight) hours as needed for Cough. [facility] predniSONE 20 mg tablet 01-03 00:00: 00 01-09 04:59 :00 No [id number] 20mg Take 1 tablet by mouth in the morning for 5 days. [facility] albuterol (VENTOLIN HFA) 90 mcg/actuati on inhaler 12-31 00:00: 00 03-08 23:29 :11 No [id number] INHALE 2 PUFFS BY MOUTH EVERY 6 HOURS NEEDED FOR WHEEZING [facility] dextroamphe tamine-amph etamine (ADDERALL) 30 mg tablet 12-09 00:00: 00 01-06 00:00 :00 No [id number] 30mg Take 1 tablet by mouth in the morning and 1 tablet in the evening. [facility] azelastine 137 mcg (0.1 %) nasal spray 12-06 00:00: 00 08-11 00:00 :00 No [id number] 1{spray } Use 1 Thornton in each nostril in the morning and 1 Thornton in the evening. Use in each nostril as directed [facility] benzonatate (TESSALON PERLES) 100 mg capsule 12-06 00:00: 00 02-03 00:00 :00 No [id number] 100mg Take 1 capsule by mouth every 8 (eight) hours as needed for Cough. [facility] methylPREDN ISolone (MEDROL, ADAM,) 4 mg tablets 12-06 00:00: 00 02-03 00:00 :00 No [id number] Take by mouth SEE-INSTRU CTIONS. follow package directions [facility] albuterol 90 mcg/actuati on inhaler 12-06 00:00: 00 12-31 00:00 :00 No [id number] 2{puff} Inhale 2 Puffs every 6 (six) hours as needed for Wheezing. [facility] triamcinolo ne acetonide 0.1 % cream 2 00:00: 00 01-03 00:00 :00 No [id number] Apply to area(s) 2 (two) times daily. [facility] sulfamethox azole-trime thoprim 800-160 mg per tablet 1- 00:00: 00 12-06 00:00 :[address] [facility] hydrOXYzine 25 mg tablet 11-15 00:00: 00 02-03 00:00 :00 No TAKE 1-2 TABLET BY MOUTH FOR SLEEP [facility] mupirocin 2 % ointment 11-14 00:00: 00 02-03 00:00 :00 No APPLY SPARINGLY TOPICALLY TO THE AFFECTED AREA TWICE DAILY [facility] SENNA 8.6 mg tablet 11-13 00:00: 00 02-03 00:00 :00 No TAKE 2-4 TABLETS BY MOUTH DIRECTED NEEDED. DO NOT EXCEED 4 TABLETS IN 24 HOURS [facility] predniSONE 20 mg tablet 11-13 00:00: 00 12-06 00:00 :00 No 20mg Take 20 mg by mouth every morning. [facility] omeprazole 40 mg capsule - 00:00: 00 02-03 00:00 :00 No TAKE 1 CAPSULE BY MOUTH IN THE MORNING [facility] FAMOTIDINE 11-05 00:00: 00 No LAMOTRIGINE 1-12 00:00: 00 No dextroamphe tamine-amph etamine (ADDERALL) 30 mg tablet 1-11 00:00: 00 12-09 00:00 :00 No [id number] 30mg Take 1 tablet by mouth in the morning and 1 tablet in the evening. [facility] ACYCLOVIR 2021-10 2- 00:00: 00 No acyclovir 400 mg tablet 2021-10 2 00:00: 00 02-03 00:00 :00 No 400mg Take 1 tablet by mouth every 8 (eight) hours. [facility] TAKE 1-2 TABLET(S) FOR SLEEP 2021-10 00:00: 00 No 25 TAKE 1 TABLET DAILY. 2021-10 00:00: 00 No 100 AMPHET/DEXT R 30MG Tablets 2021-10 00:00: 00 No dextroamphe tamine-amph etamine (ADDERALL) 30 mg tablet 2021-10 00:00: 00 10-30 00:00 :00 No [id number] 30mg Take 1 tablet by mouth in the morning and 1 tablet in the evening. [facility] FAMOTIDINE 2021-10 00:00: 00 No OMEPRAZOLE 2021-10 00:00: 00 No BUSPIRONE 2021-10 00:00: 00 No TRAMADOL HCL 2021-10 00:00: 00 No dextroamphe tamine-amph etamine (ADDERALL) 30 mg tablet 2021-10 00:00: 00 10-10 00:00 :00 No [id number] 30mg Take 1 tablet by mouth in the morning and 1 tablet in the evening. [facility] TAKE 1 TABLET DAILY. 2021-10 00:00: 00 No 100 TAKE 1 TABLET BY MOUTH TWICE DAILY 2021-10 00:00: 00 No 5 TAKE 1 TABLET AT BEDTIME. 2021-10 00:00: 00 No 100 TAKE 1 TABLET BY MOUTH DAILY 2021-10 00:00: 00 No 100 PANTOPRAZOL E 2021-10 00:00: 00 No TAKE 1 TABLET BY MOUTH IN THE MORNING AND IN THE EVENING 2021-10 00:00: 00 No dextroamphe tamine-amph etamine (ADDERALL) 20 mg tablet 2021-10 00:00: 00 09-25 00:00 :00 No [id number] 20mg Take 1 tablet by mouth in the morning and 1 tablet in the evening. [facility] TRAZODONE 2021-10 00:00: 00 No TRAZODONE 2021-10 00:00: 00 No dextroamphe tamine-amph etamine (ADDERALL) 20 mg tablet 2021-10 024 00:00: 00 09-04 00:00 :00 No [id number] 20mg Take 1 tablet by mouth in the morning and 1 tablet in the evening. [facility] diazePAM (VALIUM) injection 2 mg 2021-10 02:15: 00 08-08 02:20 :00 No 2mg 2 mg, Slow IV Push, ONCE, 1 dose, On Fri08/07/22 at 2115, STAT [facility] diazePAM (VALIUM) injection 2 mg 2021-10 01:45: 00 08-08 01:43 :00 No 2mg 2 mg, Slow IV Push, ONCE, 1 dose, On Fri08/07/22 at 2045, STAT [facility] NaCl 0.9% (NS) bolus infusion 1,000 mL 2021-10 22:00: 00 08-08 00:30 :00 No 1000mL at 999 mL/hr, 1,000 mL, IV Infusion, ONCE, 1 dose, On Fri08/07/22 at 1700, CAMILA [facility] diazePAM (VALIUM) tablet 5 mg 2021-10 22:00: 00 08-07 21:48 :00 No 5mg 5 mg, Oral, ONCE, 1 dose, On Fri08/07/22 at 1700, CAMILA [facility] AZITHROMYCI N TAB 250MG 07-10 00:00: 00 No METRONIDAZO L TAB 500MG 07-10 00:00: 00 No traZODone 100 mg tablet 07-09 09:29: 11 Yes 100mg Take 100 mg by mouth at bedtime. [facility] clonazePAM 0.5 mg tablet 07-09 09:29: 09 07-09 00:00 :00 No .5mg Take 0.5 mg by mouth at bedtime. [facility] OXcarbazepi ne 300 mg tablet 07-09 09:28: 57 07-09 00:00 :00 No 300mg Take 300 mg by mouth at bedtime. [facility] amoxicillin -clavulanat e (AUGMENTIN) 875-125 mg per tablet 07-09 09:28: 22 07-09 00:00 :00 No 1{tbl} Take 1 tablet by mouth 2 (two) times daily. [facility] dextroamphe tamine-amph etamine (ADDERALL) 20 mg tablet 07-09 00:00: 00 08-12 00:00 :00 No [id number] 20mg Take 1 tablet by mouth in the morning and 1 tablet in the evening. [facility] TAKE 1 TABLET BY MOUTH ONCE DAILY 06-05 00:00: 00 No 10 METRONIDAZO L TAB 500MG 06-05 00:00: 00 No 500 AZITHROMYCI N TAB 250MG 06-05 00:00: 00 No 250 clonazePAM 0.5 mg tablet 06-04 13:20: 16 Yes .5mg Take 0.5 mg by mouth at bedtime. [facility] traZODone 50 mg tablet 06-04 13:19: 27 06-04 00:00 :00 No 50mg Take 50 mg by mouth at bedtime. [facility] lithium carbonate 300 mg tablet 06-04 13:17: 48 06-04 00:00 :00 No 900mg Take 900 mg by mouth at bedtime. [facility] dextroamphe tamine-amph etamine (ADDERALL) 20 mg tablet 06-04 00:00: 00 07-09 00:00 :00 No [id number] 20mg Take 1 tablet by mouth in the morning and 1 tablet in the evening. [facility] TAKE 1 TABLET BY MOUTH TWICE DAILY 04-30 00:00: 00 No 20 &lt 12 00:00: 00 No 100 benzonatate 100 mg capsule 7-10 00:00: 00 06-04 00:00 :00 No [id number] 100mg Take 1 capsule by mouth 3 (three) times daily as needed for Cough. [facility] Lamictal 25 mg tablet 2021-0 6-30 00:00: 00 No 2mg trazodone 50 mg tablet 2021-0 630 00:00: 00 No 1mg &lt 2021-0 630 00:00: 00 No Dose Unknown 2021-0 6-30 00:00: 00 No TAKE 1 TABLET BY MOUTH ONCE DAILY 2021-0 6-30 00:00: 00 No lamoTRIgine 25 mg tablet 2021-0 630 00:00: 00 04- 00:00 :00 No 50mg Take 2 tablets by mouth in the morning. [facility] Dose Unknown 2021-0 5-31 00:00: 00 No Dose Unknown 2021-0 3-21 00:00: 00 No Dose Unknown 2021-0 3-21 00:00: 00 No Dose Unknown 2021-0 3-21 00:00: 00 No Dose Unknown 2021-0 3-21 00:00: 00 No Dose Unknown 2021-0 3-14 00:00: 00 No Dose Unknown 2-0 3-14 00:00: 00 No Dose Unknown 2-0 3-14 00:00: 00 No Dose Unknown 2-0 3-14 00:00: 00 No Lamictal 25 mg tablet 2021-0 2-17 00:00: 00 No 2mg trazodone 50 mg tablet 2021-0 2-17 00:00: 00 No 1mg Dose Unknown 2021-0 1-20 00:00: 00 No Dose Unknown 2-0 1-20 00:00: 00 No Lamictal 25 mg tablet 1 2-06 00:00: 00 No 2mg trazodone 50 mg tablet 2020-10 2-06 00:00: 00 No 1mg Lamictal 25 mg tablet 2020-10 1- 00:00: 00 No 1mg Lamictal 25 mg tablet 2020-10 1-08 00:00: 00 No 2mg trazodone 50 mg tablet 2020-10 1-08 00:00: 00 No 1mg Lamictal 25 mg tablet 2020-10 0-18 00:00: 00 No 1mg trazodone 50 mg tablet 2020-10 018 00:00: 00 No 1mg amoxicillin -clavulanat e (AUGMENTIN) 875-125 mg per tablet 07-18 15:10: 21 Yes 1{tbl} Take 1 tablet by mouth 2 (two) times daily. [facility] OXcarbazepi ne 300 mg tablet 07-18 15:10: 21 Yes 300mg Take 300 mg by mouth at bedtime. [facility] Lamictal 25 mg tablet 07-10 00:00: 00 No 1mg trazodone 50 mg tablet 07-10 00:00: 00 No 1mg Abilify 30 mg tablet 06-20 00:00: 00 No 1mg oxcarbazepi ne 600 mg tablet 06-20 00:00: 00 No 2mg lithium carbonate 300 mg capsule 06-20 00:00: 00 No 3mg benzonatate 100 mg capsule 05-05 00:00: 00 07-09 00:00 :00 No [id number] 100mg Take 1 capsule by mouth 3 (three) times daily as needed for Cough. [facility] Lamictal 25 mg tablet 04-27 00:00: 00 No 1mg hydroxyzine HCl 25 mg tablet 04-27 00:00: 00 No 1mg Lamictal 25 mg tablet 03-30 00:00: 00 No 1mg hydroxyzine HCl 25 mg tablet 03-30 00:00: 00 No 1mg pantoprazol e 40 mg EC tablet 03-28 00:00: 00 02-03 00:00 :00 No [id number] 40mg Take 1 tablet by mouth daily. [facility] Lamictal 25 mg tablet 03-02 00:00: 00 No 1mg hydroxyzine HCl 25 mg tablet 03-02 00:00: 00 No 1mg Lamictal 25 mg tablet -16 00:00: 00 No 1mg hydroxyzine HCl 25 mg tablet 2021-0 4-16 00:00: 00 No 1mg metronidazo le 500 mg tablet 0 4-03 00:00: 00 No 1mg ciprofloxac in 500 mg tablet 2020-0 4-03 00:00: 00 No 1mg Lamictal 25 mg tablet 0 3-19 00:00: 00 No 1mg hydroxyzine HCl 25 mg tablet 0 3-19 00:00: 00 No 1mg Augmentin 875 mg-125 mg tablet 0 3-17 00:00: 00 No 1mg Macrobid 100 mg capsule 2020-0 3-10 00:00: 00 No 1mg Lamictal 25 mg tablet 0 2-26 00:00: 00 No 1mg hydroxyzine HCl 25 mg tablet 0 2-26 00:00: 00 No 1mg Macrobid 100 mg capsule 2020-0 2-09 00:00: 00 No 1mg Lamictal 25 mg tablet 2020-0 2-01 00:00: 00 No 1mg hydroxyzine HCl 25 mg tablet 0 2-01 00:00: 00 No 1mg Lamictal 25 mg tablet 0 1-15 00:00: 00 No 1mg hydroxyzine HCl 25 mg tablet 0 1-15 00:00: 00 No 1mg Flagyl 500 mg tablet 2019-10 0-23 00:00: 00 No 1mg mupirocin 2 % topical ointment 1 0-20 00:00: 00 No 1% acyclovir 400 mg tablet 1 0-20 00:00: 00 No 1mg cephalexin 500 mg capsule 1 0-20 00:00: 00 No 1mg Flagyl 500 mg tablet 2019-10 0-17 00:00: 00 No 1mg Caladryl 1 %-8 % lotion 2019-10 0-16 00:00: 00 No 1% hydroxyzine HCl 25 mg tablet 2019-10 0-16 00:00: 00 No 12mg Lamictal 25 mg tablet 2019-10 0-15 00:00: 00 No 2mg Lamictal 25 mg tablet 2019-10 0-01 00:00: 00 No 2mg Lamictal 25 mg tablet 0 8-19 00:00: 00 No 2mg hydroxyzine HCl 25 mg tablet 05-26 00:00: 00 No 12mg Caladryl 1 %-8 % lotion 05-26 00:00: 00 No 1% Lamictal 25 mg tablet 05-25 00:00: 00 No 1mg triamcinolo ne acetonide 0.1 % topical cream 05-24 00:00: 00 No 1% Flagyl 500 mg tablet 05-24 00:00: 00 No 1mg acyclovir 400 mg tablet 05-24 00:00: 00 No 1mg acyclovir 400 mg tablet 05-03 00:00: 00 No 1mg Latuda 20 mg tablet 04-26 00:00: 00 No 1mg Immunizations Ordered Immunization Name Filled Immunization Name Date Status Comments Source SARS-COV-2 COVID-19 LUISANA/J&J VACCINE 2021-01-15 00:00:00 Completed [facility] SARS-COV-2 COVID-19 LUISANA/J&J VACCINE 2021-01-15 00:00:00 Completed [facility] SARS-COV-2 COVID-19 LUISANA/J&J VACCINE 2021-01-15 00:00:00 Completed [facility] SARS-COV-2 COVID-19 LUISANA/J&J VACCINE 2021-01-15 00:00:00 Completed [facility] SARS-COV-2 COVID-19 LUISANA/J&J VACCINE 2021-01-15 00:00:00 Completed [facility] SARS-COV-2 COVID-19 LUISANA/J&J VACCINE 2021-01-15 00:00:00 Completed [facility] SARS-COV-2 COVID-19 LUISANA/J&J VACCINE 2021-01-15 00:00:00 Completed [facility] SARS-COV-2 COVID-19 LUISANA/J&J VACCINE 2021-01-15 00:00:00 Completed [facility] SARS-COV-2 COVID-19 LUISANA/J&J VACCINE 2021-01-15 00:00:00 Completed [facility] SARS-COV-2 COVID-19 LUISANA/J&J VACCINE 2021-01-15 00:00:00 Completed [facility] SARS-COV-2 COVID-19 LUISANA/J&J VACCINE 2021-01-15 00:00:00 Completed [facility] SARS-COV-2 COVID-19 LUISANA/J&J VACCINE 2021-01-15 00:00:00 Completed [facility] SARS-COV-2 COVID-19 LUISANA/J&J VACCINE 2021-01-15 00:00:00 Completed [facility] SARS-COV-2 COVID-19 LUISANA/J&J VACCINE 2021-01-15 00:00:00 Completed [facility] SARS-COV-2 COVID-19 LUISANA/J&J VACCINE 2021-01-15 00:00:00 Completed [facility] SARS-COV-2 COVID-19 LUISANA/J&J VACCINE 2021-01-15 00:00:00 Completed [facility] SARS-COV-2 COVID-19 LUISANA/J&J VACCINE 2021-01-15 00:00:00 Completed [facility] SARS-COV-2 COVID-19 LUISANA/J&J VACCINE 2021-01-15 00:00:00 Completed [facility] SARS-COV-2 COVID-19 LUISANA/J&J VACCINE 2021-01-15 00:00:00 Completed [facility] SARS-COV-2 COVID-19 LUISANA/J&J VACCINE 2021-01-15 00:00:00 Completed [facility] SARS-COV-2 COVID-19 LUISANA/J&J VACCINE 2021-01-15 00:00:00 Completed [facility] SARS-COV-2 COVID-19 LUISANA/J&J VACCINE 2021-01-15 00:00:00 Completed [facility] SARS-COV-2 COVID-19 LUISANA/J&J VACCINE 2021-01-15 00:00:00 Completed [facility] SARS-COV-2 COVID-19 LUISANA/J&J VACCINE 2021-01-15 00:00:00 Completed [facility] SARS-COV-2 COVID-19 LUISANA/J&J VACCINE 2021-01-15 00:00:00 Completed [facility] SARS-COV-2 COVID-19 LUISANA/J&J VACCINE 2021-01-15 00:00:00 Completed [facility] SARS-COV-2 COVID-19 LUISANA/J&J VACCINE 2021-01-15 00:00:00 Completed [facility] SARS-COV-2 COVID-19 LUISANA/J&J VACCINE 2021-01-15 00:00:00 Completed [facility] SARS-COV-2 COVID-19 LUISANA/J&J VACCINE 2021-01-15 00:00:00 Completed [facility] SARS-COV-2 COVID-19 LUISANA/J&J VACCINE 2021-01-15 00:00:00 Completed [facility] SARS-COV-2 COVID-19 LUISANA/J&J VACCINE 2021-01-15 00:00:00 Completed [facility] SARS-COV-2 COVID-19 LUISANA/J&J VACCINE 2021-01-15 00:00:00 Completed [facility] SARS-COV-2 COVID-19 LUISANA/J&J VACCINE 2021-01-15 00:00:00 Completed [facility] SARS-COV-2 COVID-19 LUISANA/J&J VACCINE 2021-01-15 00:00:00 Completed [facility] SARS-COV-2 COVID-19 LUISANA/J&J VACCINE 2021-01-15 00:00:00 Completed [facility] SARS-COV-2 COVID-19 LUISANA/J&J VACCINE 2021-01-15 00:00:00 Completed [facility] SARS-COV-2 COVID-19 LUISANA/J&J VACCINE 2021-01-15 00:00:00 Completed [facility] SARS-COV-2 COVID-19 LUISANA/J&J VACCINE 2021-01-15 00:00:00 Completed [facility] SARS-COV-2 COVID-19 LUISANA/J&J VACCINE 2021-01-15 00:00:00 Completed [facility] SARS-COV-2 COVID-19 LUISANA/J&J VACCINE 2021-01-15 00:00:00 Completed [facility] SARS-COV-2 COVID-19 LUISANA/J&J VACCINE 2021-01-15 00:00:00 Completed [facility] SARS-COV-2 COVID-19 LUISANA/J&J VACCINE 2021-01-15 00:00:00 Completed [facility] SARS-COV-2 COVID-19 LUISANA/J&J VACCINE 2021-01-15 00:00:00 Completed [facility] SARS-COV-2 COVID-19 LUISANA/J&J VACCINE 2021-01-15 00:00:00 Completed [facility] SARS-COV-2 COVID-19 LUISANA/J&J VACCINE 2021-01-15 00:00:00 Completed [facility] SARS-COV-2 COVID-19 LUISANA/J&J VACCINE 2021-01-15 00:00:00 Completed [facility] SARS-COV-2 COVID-19 LUISANA/J&J VACCINE 2021-01-15 00:00:00 Completed [facility] SARS-COV-2 COVID-19 LUISANA/J&J VACCINE 2021-01-15 00:00:00 Completed [facility] SARS-COV-2 COVID-19 LUISANA/J&J VACCINE 2021-01-15 00:00:00 Completed [facility] SARS-COV-2 COVID-19 LUISANA/J&J VACCINE 2021-01-15 00:00:00 Completed [facility] SARS-COV-2 COVID-19 LUISANA/J&J VACCINE Unknown Completed [facility] SARS-COV-2 COVID-19 LUISANA/J&J VACCINE Unknown Completed [facility] SARS-COV-2 COVID-19 LUISANA/J&J VACCINE Unknown Completed [facility] SARS-COV-2 COVID-19 LUISANA/J&J VACCINE Unknown Completed [facility] SARS-COV-2 COVID-19 LUISANA/J&J VACCINE Unknown Completed [facility] SARS-COV-2 COVID-19 LUISANA/J&J VACCINE Unknown Completed [facility] SARS-COV-2 COVID-19 LUISANA/J&J VACCINE Unknown Completed [facility] SARS-COV-2 COVID-19 LUISANA/J&J VACCINE Unknown Completed [facility] SARS-COV-2 COVID-19 LUISANA/J&J VACCINE Unknown Completed [facility] SARS-COV-2 COVID-19 LUISANA/J&J VACCINE Unknown Completed [facility] SARS-COV-2 COVID-19 LUISANA/J&J VACCINE Unknown Completed [facility] SARS-COV-2 COVID-19 LUISANA/J&J VACCINE Unknown Completed [facility] SARS-COV-2 COVID-19 LUISANA/J&J VACCINE Unknown Completed [facility] SARS-COV-2 COVID-19 LUISANA/J&J VACCINE Unknown Completed [facility] SARS-COV-2 COVID-19 LUISANA/J&J VACCINE Unknown Completed [facility] SARS-COV-2 COVID-19 LUISANA/J&J VACCINE Unknown Completed [facility] SARS-COV-2 COVID-19 LUISANA/J&J VACCINE Unknown Completed [facility] SARS-COV-2 COVID-19 LUISANA/J&J VACCINE Unknown Completed [facility] SARS-COV-2 COVID-19 LUISANA/J&J VACCINE Unknown Completed [facility] SARS-COV-2 COVID-19 LUISANA/J&J VACCINE Unknown Completed [facility] SARS-COV-2 COVID-19 LUISANA/J&J VACCINE Unknown Completed [facility] SARS-COV-2 COVID-19 LUISANA/J&J VACCINE Unknown Completed [facility] SARS-COV-2 COVID-19 LUISANA/J&J VACCINE Unknown Completed [facility] SARS-COV-2 COVID-19 LUISANA/J&J VACCINE Unknown Completed [facility] SARS-COV-2 COVID-19 LUISANA/J&J VACCINE Unknown Completed [facility] SARS-COV-2 COVID-19 LUISANA/J&J VACCINE Unknown Completed [facility] SARS-COV-2 COVID-19 LUISANA/J&J VACCINE Unknown Completed [facility] SARS-COV-2 COVID-19 LUISANA/J&J VACCINE Unknown Completed [facility] SARS-COV-2 COVID-19 LUISANA/J&J VACCINE Unknown Completed [facility] SARS-COV-2 COVID-19 LUISANA/J&J VACCINE Unknown Completed [facility] SARS-COV-2 COVID-19 LUISANA/J&J VACCINE Unknown Completed [facility] SARS-COV-2 COVID-19 LUISANA/J&J VACCINE Unknown Completed [facility] SARS-COV-2 COVID-19 LUISANA/J&J VACCINE Unknown Completed [facility] SARS-COV-2 COVID-19 LUISANA/J&J VACCINE Unknown Completed [facility] SARS-COV-2 COVID-19 LUISANA/J&J VACCINE Unknown Completed [facility] Vital Signs Vital Name Observation Time Observation Value Comments S ource Systolic blood pressure 2024-01-07 20:03:00 148 mm[facility]Hg[facility] Di[facility] 2024-01-07 20:03:00 89 mm[Hg[facility] Heart rate 2024-01-07 20:02:00 87 /min [facility] Body temperature 2024-01-07 20:02:00 36.61 Annia [facility] Body height 2024-01-07 20:02:00 162.6 cm [facility] Body weight 2024-01-07 20:02:00 65.318 kg [facility] BMI 2024-01-07 20:02:00 24.72 kg/m2 [facility] Systolic blood pressure 2024-01-04 20:56:00 126 mm[Hg[facility] Diastolic blood pressure 2024-01-04 20:56:00 80 mm[Hg[facility] Heart rate 2024-01-04 20:56:00 71 /min [facility] Body temperature 2024-01-04 20:56:00 36.72 Annia [facility] Respiratory rate 2024-01-04 20:56:00 20 /min [facility] Body height 2024-01-04 20:56:00 162.6 cm [facility] Body weight 2024-01-04 20:56:00 67.631 kg [facility] BMI 2024-01-04 20:56:00 25.59 kg/m2 [facility] Oxygen saturation in Arterial blood by Pulse oximetry 2024-01-04 20:56:00 100 /min [facility] Systolic blood pressure 2023-10-16 22:45:00 126 mm[Hg] [facility] Diastolic blood pressure 2023-10-16 22:45:00 79 mm[Hg] [facility] Heart rate 2023-10-16 22:45:00 94 /min [facility] Body temperature 2023-10-16 22:45:00 37.06 Annia [facility] Body height 2023-10-16 22:45:00 162.6 cm [facility] Body weight 2023-10-16 22:45:00 63.095 kg [facility] BMI 2023-10-16 22:45:00 23.88 kg/m2 [facility] Oxygen saturation in Arterial blood by Pulse oximetry 2023-10-16 22:45:00 99 /min [facility] Systolic blood pressure 2023-08-11 18:07:00 121 mm[Hg[facility] Diastolic blood pressure 2023-08-11 18:07:00 80 mm[Hg] [facility] Heart rate 2023-08-11 18:07:00 96 /min [facility] Body height 2023-08-11 18:07:00 162.6 cm [facility] Body weight 2023-08-11 18:07:00 64.411 kg [facility] BMI 2023-08-11 18:07:00 24.37 kg/m2 [facility] Heart rate 2023-07-17 01:37:00 102 /min [facility] Respiratory rate 2023-07-17 01:37:00 17 /min [facility] Body weight 2023-07-17 01:37:00 65.998 kg [facility] BMI 2023-07-17 01:37:00 24.98 kg/m2 [facility] Oxygen saturation in Arterial blood by Pulse oximetry 2023-07-17 01:37:00 98 /min [facility] Systolic blood pressure 2023-07-15 09:08:00 152 mm[Hg] [facility] Diastolic blood pressure 2023-07-15 09:08:00 106 mm[Hg] [facility] Heart rate 2023-07-15 09:08:00 62 /min [facility] 2023-07-15 09:08:00 37.22 Annia [facility] Respiratory rate 2023-07-15 09:08:00 18 /min [facility] Body height 2023-07-15 09:08:00 162.6 cm [facility] Body weight 2023-07-15 09:08:00 67.132 kg [facility] BMI 2023-07-15 09:08:00 25.40 kg/m2 [facility] Oxygen saturation in Arterial blood by Pulse oximetry 2023-07-15 09:08:00 100 /min [facility] Systolic blood pressure 2023-02-15 22:41:00 109 mm[Hg] [facility] Diastolic blood pressure 2023-02-15 22:41:00 72 mm[Hg] [facility] Heart rate 2023-02-15 22:41:00 87 /min [facility] Body temperature 2023-02-15 22:41:00 36.83 Annia [facility] Respiratory rate 2023-02-15 22:41:00 18 /min [facility] Body height 2023-02-15 22:41:[address] [facility] Body weight 2023-02-15 22:41:00 68.947 kg [facility] BMI 2023-02-15 22:41:00 26.09 kg/m2 [facility] Oxygen saturation in Arterial blood by Pulse oximetry 2023-02-15 22:41:00 96 /min [facility] Body height 2023-02-07 14:41:[address] [facility] weight 2023-02-07 14:41:[address] [facility] BMI 2023-02-07 14:41:00 26.38 kg/m2 [facility] Oxygen saturation in Arterial blood by Pulse oximetry 2023-02-07 14:41:00 98 /min [facility] Systolic blood pressure 2023-02-07 14:41:00 124 mm[Hg[facility] Diastolic blood pressure 2023-02-07 14:41:00 83 mm[Hg] [facility] Heart rate 2023-02-07 14:41:00 94 /min [facility] Body temperature 2023-02-07 14:41:00 36.67 Annia [facility] Systolic blood pressure 2023-02-03 14:53:00 125 mm[Hg] [facility] Diastolic blood pressure 2023-02-03 14:53:00 68 mm[Hg] [facility] Heart rate 2023-02-03 14:53:00 79 /min [facility] Body temperature 2023-02-03 14:53:00 36.33 Annia [facility] Body height 2023-02-03 14:53:00 162.6 cm [facility] Body weight 2023-02-03 14:53:00 68.629 kg [facility] BMI 2023-02-03 14:53:00 25.97 kg/m2 [facility] Oxygen saturation in Arterial blood by Pulse oximetry 2023-02-03 14:53:00 100 /min [facility] Systolic blood pressure 2023-01-03 21:59:00 133 mm[Hg] [facility] Diastolic blood pressure 2023-01-03 21:59:00 87 mm[Hg] [facility] Heart rate 2023-01-03 21:59:00 109 /min [facility] Body temperature 2023-01-03 21:59:00 36.89 Annia [facility] Respiratory rate 2023-01-03 21:59:00 17 /min [facility] Body weight 2023-01-03 21:59:00 70.308 kg [facility] BMI 2023-01-03 21:59:00 26.61 kg/m2 [facility] Oxygen saturation in Arterial blood by Pulse oximetry 2023-01-03 21:59:00 98 /min [facility] Systolic blood pressure 2022-12-06 15:29:00 132 mm[Hg[facility] Diastolic blood pressure 2022-12-06 15:29:00 85 mm[Hg] [facility] Body temperature 2022-12-06 15:29:00 37.11 Annia [facility] Body height 2022-12-06 15:29:00 162.6 cm [facility] Body weight 2022-12-06 15:29:00 68.947 kg [facility] BMI 2022-12-06 15:29:00 26.09 kg/m2 [facility] Oxygen saturation in Arterial blood by Pulse oximetry 2022-12-06 15:29:00 99 /min [facility] Systolic blood pressure 2022-11-20 21:39:00 106 mm[Hg] [facility] Diastolic blood pressure 2022-11-20 21:39:00 63 mm[Hg] [facility] Heart rate 2022-11-20 21:39:00 118 /min [facility] Body temperature 2022-11-20 21:39:00 36.72 Annia [facility] Body height 2022-11-20 21:39:00 162.6 cm [facility] Body weight 2022-11-20 21:39:00 68.04 kg [facility] BMI 2022-11-20 21:39:00 25.75 kg/m2 [facility] Oxygen saturation in Arterial blood by Pulse oximetry 2022-11-20 21:39:00 99 /min [facility] Systolic blood pressure 2022-09-25 17:10:00 120 mm[Hg] [facility] Diastolic blood pressure 2022-09-25 17:10:00 80 mm[Hg] [facility] Heart rate 2022-09-25 17:10:00 92 /min [facility] Body height 2022-09-25 17:10:00 162.6 cm [facility] Body weight 2022-09-25 17:10:00 64.864 kg [facility] BMI 2022-09-25 17:10:00 24.55 kg/m2 [facility] Systolic blood pressure 2022-08-08 02:23:00 122 mm[Hg[facility] Diastolic blood pressure 2022-08-08 02:23:00 78 mm[Hg] [facility] Heart rate 2022-08-08 02:23:00 76 /min [facility] Body temperature 2022-08-08 02:23:00 36.67 Annia [facility] Respiratory rate 2022-08-08 02:23:00 19 /min [facility] Oxygen saturation in Arterial blood by Pulse oximetry 2022-08-08 02:23:00 96 /min [facility] Body height 2022-08-07 20:26:00 162.6 cm [facility] Body weight 2022-08-07 20:26:00 64.1 kg [facility] BMI 2022-08-07 20:26:00 24.26 kg/m2 [facility] Systolic blood pressure 2022-07-09 14:25:00 139 mm[Hg[facility] Diastolic blood pressure 2022-07-09 14:25:00 94 mm[Hg] [facility] Heart rate 2022-07-09 14:25:00 88 /min [facility] Body height 2022-07-09 14:25:00 162.6 cm [facility] Body weight 2022-07-09 14:25:00 65.318 kg [facility] BMI 2022-07-09 14:25:00 24.72 kg/m2 [facility] Systolic blood pressure 2022-06-04 18:16:00 115 mm[Hg] [facility] Diastolic blood pressure 2022-06-04 18:16:00 74 mm[Hg] [facility] Body height 2022-06-04 18:16:00 162.6 cm [facility] Body weight 2022-06-04 18:16:00 64.864 kg [place] [...] / Time Performed Performing Clinicia n Source [facility] PATIENT FINANCIAL POLICY 2024-01-04 20:47:36 Doctor Unassigned, Candelaria [facility] POCT MOLECULAR FLU 2023-10-16 22:59:00 Gbay Palma [facility] POCT MOLECULAR STREP 2023-10-16 22:51:00 Annamaria Palma [facility] POCT SARS-COV-2 ANTIGEN (BINAX NOW) 2023-10-16 00:00:00 Gaby Palma [facility] ASSIGNMENT OF BENEFITS 2023-08-11 18:02:12 Docto r Unassigned, Candelaria [facility] NOTICE OF PRIVACY PRACTICES 2023-07-15 09:02:01 Doctor Unassigned, Candelaria [facility] CONSENT/REFUSAL FOR DIAGNOSIS AND TREATMENT 2023-07-15 09:01:33 Doctor Unassigned, Candelaria [facility] POCT SARS-COV-2 ANTIGEN (BINAX NOW) 2023-02-07 15:13:00 Vivienne Holt [facility] POCT MOLECULAR FLU 2023-02-07 15:06:00 Unknown, Attend [facility] POCT MOLECULAR STREP 2023-02-07 14:52:00 Unknown, Shaquille sanchez [facility] PATIENT FINANCIAL POLICY 2023-01-03 21:48:53 Doctor Unassigned, Candelaria [facility] EXTERNAL PROVIDER RECORDS 2022-12-24 06:01:00 Doctor Unassigned, Candelaria [facility] CREATINE KINASE 2022-08-07 21:44:00 Mila Keys [facility] LIPASE 2022-08-07 21:44:00 Mila Keys [facility] TEST, SERUM 2022-08-07 21:44:00 Anaid Keys [facility] TROPONIN I 2022-08-07 21:44:00 Mila Keys [facility] HEPATIC FUNCTION PANEL ([id number]) (ALB,T.PRO,BILI T,BU/BC,ALT,AST,ALK PHOS) 2022-08-07 21:44:00 Mila Keys [facility] BASIC METABOLIC PANEL (NA, K, CL, CO2, GLUCOSE, BUN, CREATININE, CA) 2022-08-07 21:44:00 Mila Keys [facility] SALICYLATE 2022-08-07 21:44:00 Mila Keys [facility] ETHANOL 2022-08-07 21:44:00 Mila Keys [facility] CBC WITH DIFF 2022-08-07 21:44:00 Mila Keys [facility] Plan of Care Planned Activity Planned Date Details Comments Source Goal Plan of Care Note [code = 10676-4] Goal Plan of Care Note [code = 24944-1] Goal Plan of Care Note [code = 85077-2] Goal Plan of Care Note [code = 23620-3] Goal Plan of Care Note [code = 15029-8] Goal Plan of Care Note [code = 88547-6] Goal Plan of Care Note [code = 65701-5] Goal Plan of Care Note [code = 07352-2] Goal Plan of Care Note [code = 57405-2] Goal Plan of Care Note [code = 38744-1] Goal Plan of Care Note [code = 63754-5] Goal Plan of Care Note [code = 04019-8] Goal Plan of Care Note [code = 58595-0] Goal Plan of Care Note [code = 91877-8] Goal Plan of Care Note [code = 31484-3] Goal Plan of Care Note [code = 57991-0] Goal Plan of Care Note [code = 20902-8] Goal Plan of Care Note [code = 99934-2] Goal Plan of Care Note [code = 43325-0] Goal Plan of Care Note [code = 69368-8] Goal Plan of Care Note [code = 09779-5] Goal Plan of Care Note [code = 95602-5] Goal Plan of Care Note [code = 61256-0] Goal Plan of Care Note [code = 10999-3] Goal Plan of Care Note [code = 06026-8] Goal Plan of Care Note [code = 57567-6] Goal Plan of Care Note [code = 17327-5] Goal Plan of Care Note [code = 44995-7] Goal Plan of Care Note [code = 36618-7] Goal Plan of Care Note [code = 69629-2] Goal Plan of Care Note [code = 04648-2] Goal Plan of Care Note [code = 49656-4] Goal Plan of Care Note [code = 78460-6] Encounters Start Date/Time End Date/Time Encounter Type Admission Type Attending Clinicians Care Facility Care Department Encounter ID Source 2021-08-20 08:51:37 Emergency [facility] [id number] [facility] 2024-01-14 14:30:00 2024-01-14 14:30:00 Outpatient ENEIDA RODRIGUEZ [facility] [id number] [facility] 2024-01-07 15:15:00 2024-01-07 15:30:00 Office Visit Laura Beltran [facility] 1.2.840.114 350.1.13.10 4.2.7.2.686 [id number] [facility] 2024-01-07 15:15:00 2024-01-07 15:15:00 Outpatient LAURA AMADOR [facility] [id number] [facility] 2024-01-04 15:40:00 2024-01-04 16:00:00 Urgent Care WilbertVivienne rivers Unknown, Attending [facility] 1.2.840.114 350.1.13.10 4.2.7.2.686 [id number] [facility] 2024-01-04 15:40:00 2024-01-04 15:40:00 Outpatient R VIVIENNE HOLT [facility] [id number] [facility] 2024-01-04 00:00:00 2024-01-04 00:00:00 Orders Only Doctor Unassigned, Candelaria [facility] 1.2.840.114 350.1.13.10 4.2.7.2.686 [id number] [facility] 2024-01-01 00:00:00 2024-01-01 00:00:00 Refill Laura Beltran [facility] 1.2.840.114 350.1.13.10 4.2.7.2.686 [id number] [id number] [facility] 2023-12-29 00:00:00 2023-12-29 00:00:00 Letter (Out) [facility] 1.2.840.114 350.1.13.10 4.2.7.2.686 [id number] [facility] 2023-12-24 00:00:00 2023-12-24 00:00:00 Telephone Laura Beltran [facility] 1.2.840.114 350.1.13.10 4.2.7.2.686 [id number] 044 [id number] [facility] 2023-12-15 09:30:00 2023-12-15 09:30:00 Outpatient LAURA AMADOR [facility] [id number] [facility] 2023-12-11 00:00:00 2023-12-11 00:00:00 [facility] 1.2840.114 350.1.13.10 4.2.7.2.686 [id number] 044 [id number] [facility] 2023-12-11 00:00:00 2023-12-11 00:00:00 Telephone Laura Beltran [facility] LUCIUS?[facility] 1.2840.114 350.1.13.10 4.2.7.2.686 [id number] 044 [id number] [facility] 2023-12-09 00:00:00 2023-12-09 00:00:00 Telephone Luara Beltrna [facility] LUCIUS?[facility] 1.2840.114 350.1.13.10 4.2.7.2.686 [id number] [id number] [facility] 2023-12-08 00:00:00 2023-12-08 00:00:00 Refill Laura Beltran [facility] LUCIUS?[facility] 1.2840.114 350.1.13.10 4.2.7.2.686 [id number] 044 [id number] [facility] 2023-12-04 00:00:00 2023-12-04 00:00:00 Telephone Lauar Beltran [facility] LUCUIS?[facility] 1.2840.114 350.1.13.10 4.2.7.2.686 [id number] 044 [id number] [facility] 2023-11-27 00:00:00 2023-11-27 00:00:00 Telephone [facility] 1.2840.114 350.1.13.10 4.2.7.2.686 [id number] 044 [id number] [facility] 2023-11-10 15:40:11 2023-11-10 15:40:11 Outpatient [facility] [id number] Ignacio Heredia 2023-11-08 00:00:00 2023-11-08 00:00:00 Telephone Laura Beltran [facility] LUCIUS?[facility] 1.840.114 350.1.13.10 4.2.7.2.686 [id number] 044 [id number] [facility] 2023-10-16 16:40:00 2023-10-16 17:06:52 Outpatient R GABY [facility] [id number] [facility] 2023-10-16 16:40:00 2023-10-16 17:06:52 Office Visit Scarlett [facility] LUCIUS?[facility] 1.84.114 350.1.13.10 4.2.7.2.686 [id number] 044 [id number] [facility] 2023-10-08 00:00:00 2023-10-08 00:00:00 Telephone Laura Beltran [facility] LUCIUS?[facility] 1.84.114 350.1.13.10 4.2.7.2.686 [id number] 044 [id number] [facility] 2023-10-06 00:00:00 2023-10-06 00:00:00 [facility]ill [facility] 1.84.114 350.1.13.10 4.2.7.2.686 [id number] 044 [id number] [facility] 2023-10-06 00:00:00 2023-10-06 00:00:00 Telephone Laura Beltran [facility] LUCIUS?[facility] 1.84.114 350.1.13.10 4.2.7.2.686 [id number] 044 [id number] [facility] 2023-09-17 00:00:00 2023-09-17 00:00:00 [facility]Laura [facility] 1.2.840.114 350.1.13.10 4.2.7.2.686 [id number] 044 [id number] [facility] 2023-09-10 00:00:00 2023-09-10 00:00:00 Refill Laura Beltran [facility] LUCIUS?[facility] 1.2840.114 350.1.13.10 4.2.7.2.686 [id number] 044 [id number] [facility] 2023-09-09 00:00:00 2023-09-09 00:00:00 Telephone Laura Beltran [facility] 1.2840.114 350.1.13.10 4.2.7.2.686 [id number] 044 [id number] [facility] 2023-09-05 00:00:00 2023-09-05 00:00:00 Telephone Laura Beltran [facility] LUCIUS?[facility] 1.840.114 350.1.13.10 4.2.7.2.686 [id number] 044 [id number] [facility] 2023-09-03 00:00:00 2023-09-03 00:00:00 Refill Ruby [facility] LUCIUS?[facility] 1.284.114 350.1.13.10 4.2.7.2.686 [id number] 044 [id number] [facility] 2023-08-11 13:00:00 2023-08-11 13:23:48 Outpatient R LAURA BELTRAN [facility] [id number] [facility] 2023-08-11 13:00:00 2023-08-11 13:23:48 Office Visit Laura Beltran [facility] 1..840.114 350.1.13.10 4.2.7.2.686 [id number] 044 [id number] [facility] 2023-08-11 00:00:00 2023-08-11 00:00:00 Orders Only Doctor Unassigned, Candelaria [facility] 1..840.114 350.1.13.10 4.2.7.2.686 [id number] [facility] 2023-08-05 00:00:00 2023-08-05 00:00:00 Refill Laura Bletran [facility] 1..840.114 350.1.13.10 4.2.7.2.686 [id number] [id number] [facility] 2023-07-26 00:00:00 2023-07-26 00:00:00 Refill Ruby [facility] 1.2.840.114 350.1.13.10 4.2.7.2.686 [id number] [id number] [facility] 2023-07-24 10:45:00 2023-07-24 10:45:00 Outpatient MAIKEL HINDS [facility] [id number] [facility] 2023-07-16 20:20:00 2023-07-16 20:40:00 Urgent Care Vivienne Holt Unknown, Attending [facility] 1.2.840.114 350.1.13.10 4.2.7.2.686 [id number] [facility] 2023-07-16 20:20:00 2023-07-16 20:20:00 Outpatient Casey HOLT RANLEN [facility] [id number] [facility] 2023-07-15 04:10:00 2023-07-15 04:44:00 Emergency X [facility] E[facility] [id number] [facility] 2023-07-15 04:10:00 2023-07-15 04:44:00 Emergency Mc Strong [facility] 1.2.840.114 350.1.13.10 4.2.7.2.686 [id number] [facility] 2023-07-03 00:00:00 2023-07-03 00:00:00 Refill Ruby [facility] 1.2.840.114 350.1.13.10 4.2.7.2.686 [id number] [id number] [facility] 2023-07-03 00:00:00 2023-07-03 00:00:00 Refill Ruby [facility] 1.2.840.114 350.1.13.10 4.2.7.2.686 [id number] 044 [id number] [facility] 2023-06-16 00:00:00 2023-06-16 00:00:00 Telephone Juan Pabloartie [facility] 1.2.840.114 350.1.13.10 4.2.7.2.686 [id number] 044 [id number] [facility] 2023-06-09 00:00:00 2023-06-09 00:00:00 Refill Ruby [facility] 1.2.840.114 350.1.13.10 4.2.7.2.686 [id number] 044 [id number] [facility] 2023-06-06 00:00:00 2023-06-06 00:00:00 RefLaura Grady [facility] 1.114 350.1.13.10 4.2.7.2.686 [id number] 044 [id number] [facility] 2023-06-04 10:00:00 2023-06-04 10:00:00 Outpatient LAURA AMADOR [facility] [id number] [facility] 2023-05-23 16:51:14 2023-05-23 23:59:00 [facility]114 350.1.13.10 4.2.7.2.686 [id number] [facility] 2023-05-23 16:50:23 2023-05-23 16:50:00 Outpatient R FEROZ BARAKAT [facility] [id number] [facility] 2023-05-23 16:30:00 2023-05-23 16:50:00 Hospital Encounter Feroz Barakat [facility] 1..114 350.1.13.10 4.2.7.2.686 [id number] [facility] 2023-05-13 00:00:00 2023-05-13 00:00:00 Patient Secure Msg Doctor Unassigned, Candelaria [facility] 1.114 350.1.13.10 4.2.7.2.686 [id number] 044 [id number] [facility] 2023-05-10 00:00:00 2023-05-10 00:00:00 Laura Perez [facility] LUCIUS?[facility] 1.114 350.1.13.10 4.2.7.2.686 [id number] 044 [id number] [facility] 2023-05-07 00:00:00 2023-05-07 00:00:00 Patient Secure Msg [facility] Un[facility]igned, [facility] 1.840.114 350.1.13.10 4.2.7.2.686 [id number] [facility] 2023-05-05 00:00:00 2023-05-05 00:00:00 Telephone Laura Belrtan [facility] LUCIUS?[facility] 1.84.114 350.1.13.10 4.2.7.2.686 [id number] [id number] [facility] 2023-05-02 00:00:00 2023-05-02 00:00:00 Outpatient Casey BARAKAT [facility] [id number] [facility] 2023-04-25 00:00:00 2023-04-25 00:00:00 Outpatient Casey BARAKAT [facility] [id number] [facility] 2023-04-08 00:00:00 2023-04-08 00:00:00 Refill Laura Beltran [facility] LUCIUS?[facility] 1.84.114 350.1.13.10 4.2.7.2.686 [id number] 044 [id number] [facility] 2023-04-03 00:00:00 2023-04-03 00:00:00 Refill Laura Beltran [facility] LUCIUS?[facility] 1.840.114 350.1.13.10 4.2.7.2.686 [id number] 044 [id number] [facility] 2023-03-10 00:00:00 2023-03-10 00:00:00 Telephone Laura Beltran [facility] LUCIUS?[facility] 1.840.114 350.1.13.10 4.2.7.2.686 [id number] 044 [id number] [facility] 2023-03-08 00:00:00 2023-03-08 00:00:00 Refill Laura Beltran [facility] LUCIUS?[facility] 1.2840.114 350.1.13.10 4.2.7.2.686 [id number] 044 [id number] [facility] 2023-03-07 00:00:00 2023-03-07 00:00:00 Refill Laura Beltran [facility] LUCIUS?[facility] 1.2840.114 350.1.13.10 4.2.7.2.686 [id number] 044 [id number] [facility] 2023-03-07 00:00:00 2023-03-07 00:00:00 Telephone Laura Beltran [facility] LUCIUS?[facility] 1.2840.114 350.1.13.10 4.2.7.2.686 [id number] 044 [id number] [facility] 2023-02-17 00:00:00 2023-02-17 00:00:00 Telephone Laura Beltran [facility] LUCIUS?[facility] 1.2840.114 350.1.13.10 4.2.7.2.686 [id number] 044 [id number] [facility] 2023-02-15 17:30:00 2023-02-15 17:41:47 Outpatient R YESSENIA WOOTEN [facility] [id number] [facility] 2023-02-15 17:30:00 2023-02-15 17:41:47 Nurse Visit Nurse, Jose Petty [facility] Unknown, Attending Ysesenia Wooten [facility] 1.2840.114 350.1.13.10 4.2.7.2.686 [id number] [facility] 2023-02-15 17:20:00 2023-02-15 17:20:00 Outpatient R UNKNOWN, ATTENDING [facility] [id number] [facility] 2023-02-07 09:20:00 2023-02-07 09:40:00 Urgent Care Vivienne Holt, Attending [facility] 1.2.840.114 350.1.13.10 4.2.7.2.686 [id number] 370 [id number] [facility] 2023-02-07 09:20:00 2023-02-07 09:20:00 Outpatient R UNKNOWN, ATTENDING VIVIENNE HOLT [facility] [id number] [facility] 2023-02-03 10:15:00 2023-02-03 10:30:00 Office Visit Laura Beltran [facility]?LYDIAAlthea [facility] 1.2.840.114 350.1.13.10 4.2.7.2.686 [id number] 044 [id number] [facility] 2023-02-03 10:15:00 2023-02-03 10:15:00 Outpatient R LAURA BELTRAN [facility] [id number] [facility] 2023-01-23 10:00:00 2023-01-23 10:00:00 Outpatient LAURA AMADOR [facility] [id number] [facility] 2023-01-06 00:00:00 2023-01-06 00:00:00 Refill Laura Beltran [facility] 1.2.840.114 350.1.13.10 4.2.7.2.686 [id number] 044 [id number] [facility] 2023-01-04 00:00:00 2023-01-04 00:00:00 Telephone Provider, Jose Petty Urgent Care [facility] 1.0114 350.1.13.10 4.2.7.2.686 [id number] 370 [id number] [facility] 2023-01-03 16:40:00 2023-01-03 17:14:19 Outpatient R FLOR URBANO [facility] [id number] [facility] 2023-01-03 16:40:00 2023-01-03 17:14:19 Urgent Care Naresh Flor Unknown, Attending [facility] 1.0114 350.1.13.10 4.2.7.2.686 [id number] [facility] 2023-01-03 00:00:00 2023-01-03 00:00:00 Orders Only Doctor Unassigned, Candelaria [facility] 1.840.114 350.1.13.10 4.2.7.2.686 [id number] [facility] 2023-01-03 00:00:00 2023-01-03 00:00:00 Letter (Out) Naresh Flor [facility] LUCIUS?[facility] 1.114 350.1.13.10 4.2.7.2.686 [id number] [facility] 2023-01-02 00:00:00 2023-01-02 00:00:00 Refill Laura Beltran [facility] LUCIUS?[facility] 1.114 350.1.13.10 4.2.7.2.686 [id number] 044 [id number] [facility] 2022-12-28 00:00:00 2022-12-28 00:00:00 Refill Trena Wyatt [facility] LUCIUS?[facility] 1.0.114 350.1.13.10 4.2.7.2.686 [id number] 044 [id number] [facility] 2022-12-26 00:00:00 2022-12-26 00:00:00 Outpatient STU BORGES [facility] [id number] [facility] 2022-12-24 00:00:00 2022-12-24 00:00:00 Orders Only Doctor Unassigned, Candelaria [facility] 1.840.114 350.1.13.10 4.2.7.2.686 [id number] [facility] 2022-12-06 09:30:00 2022-12-06 09:56:07 Outpatient R TRENA WYATT [facility] [id number] [facility] 2022-12-06 09:30:00 2022-12-06 09:56:07 Office Visit Trena Wyatt [facility] 1.840.114 350.1.13.10 4.2.7.2.686 [id number] 044 [id number] [facility] 2022-12-06 07:00:00 2022-12-06 07:00:00 Outpatient R TRENA WYATT [facility] [id number] [facility] 2022-12-05 00:00:00 2022-12-05 00:00:00 Laura Perez [facility] 1.840.114 350.1.13.10 4.2.7.2.686 [id number] [facility] 2022-11-20 15:30:00 2022-11-20 16:22:49 Outpatient R VAUGHN TAN [facility] [id number] [facility] 2022-11-20 15:30:00 2022-11-20 16:22:49 Office Visit Vaughn Tan [facility] 1.840.114 350.1.13.10 4.2.7.2.686 [id number] 044 [id number] [facility] 2022-11-19 09:30:00 2022-11-19 09:30:00 Outpatient ARNEL MAKI [facility] [id number] [facility] 2022-11-14 11:59:29 2022-11-14 11:59:29 Outpatient [facility] [address] Heredia 2022-11-13 00:00:00 2022-11-13 00:00:00 Telephone Laura Beltran [facility] 1.840.114 350.1.13.10 4.2.7.2.686 [id number] [id number] [facility] 2022-11-12 09:48:10 2022-11-12 09:48:10 Outpatient [facility] 4 Ignacio Heredia 2022-11-12 00:00:00 2022-11-12 00:00:00 Outpatient Visit [id number] 2022-11-11 09:15:00 2022-11-11 09:15:00 Outpatient Casey BELTRAN LAURA [facility] [id number] [facility] 2022-10-30 00:00:00 2022-10-30 00:00:00 Refill Ruby [facility] 1..840.114 350.1.13.10 4.2.7.2.686 [id number] [facility] 2022-10-10 00:00:00 2022-10-10 00:00:00 Telephone Laura Beltran [facility] 1..840.114 350.1.13.10 4.2.7.2.686 [id number] 044 [id number] [facility] 2022-10-07 00:00:00 2022-10-07 00:00:00 Telephone Laura Beltran [facility] LUCIUS?[facility] 1.2.840.114 350.1.13.10 4.2.7.2.686 [id number] 044 [id number] [facility] 2022-09-25 11:00:00 2022-09-25 11:20:08 Outpatient R RUBY LAURA [facility] [id number] [facility] 2022-09-25 11:00:00 2022-09-25 11:20:08 [facility] 1.2.840.114 350.1.13.10 4.2.7.2.686 [id number] [id number] [facility] 2022-09-03 00:00:00 2022-09-03 00:00:00 Refill Ruby [facility] LUCIUS?[facility] 1..840.114 350.1.13.10 4.2.7.2.686 [id number] [id number] [facility] 2022-08-09 00:00:00 2022-08-09 00:00:00 Telephone Laura Beltran [facility] LUCIUS?[facility] 1.2.840.114 350.1.13.10 4.2.7.2.686 [id number] [facility] 2022-08-08 00:00:00 2022-08-08 00:00:00 Telephone [facility] LUCIUS?[facility] 1.2.840.114 350.1.13.10 4.2.7.2.686 [id number] [facility] 2022-08-07 15:19:00 2022-08-07 21:35:00 Emergency X MILA KEYS [facility] ERT [id number] [facility] 2022-08-07 15:19:00 2022-08-07 21:35:00 Emergency Mila Keys [facility] 1.2.840.114 350.1.13.10 4.2.7.2.686 [id number] [facility] 2022-07-10 00:00:00 2022-07-10 00:00:00 Telephone Ruby Laura [facility] LUCIUS?[facility] 1..840.114 350.1.13.10 4.2.7.2.686 [id number] [facility] 2022-07-09 09:15:00 2022-07-09 09:44:28 Outpatient LAURA AMADOR [facility] [id number] [facility] 2022-07-09 09:15:00 2022-07-09 09:30:00 Office Visit Laura Beltran [facility] LUCIUS?[facility] 1.2.840.114 350.1.13.10 4.2.7.2.686 [id number] 044 [id number] [facility] 2022-07-09 00:00:00 2022-07-09 00:00:00 Telephone Laura Beltran [facility] 1..840.114 350.1.13.10 4.2.7.2.686 [id number] [facility] 2022-06-04 13:15:00 2022-06-04 13:32:49 Outpatient LAURA AMADOR [facility] [id number] [facility] 2022-06-04 13:15:00 2022-06-04 13:30:00 Office Visit Laura Beltran [facility]CI[facility] 1.2.840.114 350.1.13.10 4.2.7.2.686 [id number] [facility] 2022-06-04 13:15:00 2022-06-04 13:15:00 Outpatient LAURA AMADOR [facility] [id number] [facility] 2022-04-28 11:37:00 2022-04-28 12:24:00 Emergency X OLEG PEDROZAANNE [facility] ERT [id number] [facility] 2022-04-28 11:37:00 2022-04-28 12:24:00 Emergency Mundo Pedroza [facility] 1.84.114 350.1.13.10 4.2.7.2.686 [id number] [facility] 2022-04-28 00:00:00 2022-04-28 00:00:00 Letter (Out) Lora Gould [facility] 1..114 350.1.13.10 4.2.7.2.686 [id number] [facility] 2021-07-18 14:56:51 2021-07-18 15:32:09 Office Visit Laura Beltran [facility] 1..840.114 350.1.13.10 4.2.7.2.686 [id number] [facility] 2021-07-18 15:00:00 2021-07-18 15:00:00 Outpatient LAURA AMADOR [facility] [id number] [facility] 2021-05-30 00:00:00 2021-05-30 00:00:00 Orders Only Doctor Unassigned, Candelaria [facility] 1.84.114 350.1.13.10 4.2.7.2.686 [id number] [facility] 2021-05-25 00:00:00 2021-05-25 00:00:00 Telephone Laura Beltran [facility] Office Building One 1.2.840.114 350.1.13.10 4.2.7.2.686 [id number] 2021-05-25 00:00:00 2021-05-25 00:00:00 Telephone Laura Beltran [facility] Office Building One 1.2.840.114 350.1.13.10 4.2.7.2.686 [id number] [facility] 2021-05-21 00:00:00 2021-05-21 00:00:00 Refill Laura Beltran [facility] Office Building One 1.2.840.114 350.1.13.10 4.2.7.2.686 [id number] 2021-05-21 00:00:00 2021-05-21 00:00:00 Refill Laura Beltran [facility] Office Building One 1.2.840.114 350.1.13.10 4.2.7.2.686 [id number] [facility] 2021-05-05 11:42:00 2021-05-05 13:42:00 [facility] 1.2.840.114 350.1.13.10 4.2.7.2.686 [id number] [id number] 2021-05-05 11:42:00 2021-05-05 13:42:00 Emergency Peng [facility] 1.2.840.114 350.1.13.10 4.2.7.2.686 [id number] [id number] [facility] 2021-05-04 00:00:00 2021-05-04 00:00:00 Telephone Nayla Sanders [facility] Office Building One 1.2840.114 350.1.13.10 4.2.7.2.686 [id number] [id number] 2021-05-04 00:00:00 2021-05-04 00:00:00 Telephone Nayla Sanders [facility] Office Building One 1.2840.114 350.1.13.10 4.2.7.2.686 [id number] 044 [id number] [facility] 2021-05-03 17:09:02 2021-05-03 17:56:38 Urgent Care Nayla Sanders [facility] Office Building One 1.2840.114 350.1.13.10 4.2.7.2.686 [id number] 044 [id number] 2021-05-03 17:09:02 2021-05-03 17:56:38 Urgent Care Nayla Sanders [facility] Office Building One 1.2840.114 350.1.13.10 4.2.7.2.686 [id number] [facility] 2021-05-03 17:20:00 2021-05-03 17:20:00 Outpatient R [facility] [id number] [facility] 2021-04-25 10:32:12 2021-04-25 10:47:12 Office Visit Laura Beltran mik [facility] Office Building One 1.20.114 350.1.13.10 4.2.7.2.686 [id number] 2021-04-25 10:32:12 2021-04-25 10:47:12 Office Visit Laura Beltran [facility] Office Building One 1.2840.114 350.1.13.10 4.2.7.2.686 [id number] [facility] 2021-04-25 10:30:00 2021-04-25 10:30:00 Outpatient LAURA AMADOR [facility] [id number] [facility] 2021-04-25 00:00:00 2021-04-25 00:00:00 Orders Only Doctor Unassigned, Candelaria [facility] 1.2840.114 350.1.13.10 4.2.7.2.686 [id number] 2021-04-25 00:00:00 2021-04-25 00:00:00 Orders Only Doctor Unassigned, Candelaria [facility] 1.0.114 350.1.13.10 4.2.7.2.686 [id number] [facility] 2021-04-19 00:00:00 2021-04-19 00:00:00 Orders Only Doctor Unassigned, Candelaria [facility] 1.0.114 350.1.13.10 4.2.7.2.686 [id number] [facility] 2021-04-11 15:30:00 2021-04-11 15:30:00 Outpatient JORDAN COSTA [facility] [id number] [facility] 2021-03-28 09:16:27 2021-03-28 09:46:27 Office Visit Laura Beltran [facility] Office Building One 1..114 350.1.13.10 4.2.7.2.686 [id number] [facility] 2021-03-28 09:30:00 2021-03-28 09:30:00 Outpatient LAURA AMADOR [facility] [id number] [facility] 2021-02-20 00:00:00 2021-02-20 00:00:00 Patient Secure Msg Doctor Unassigned, Candelaria [facility] 1..114 350.1.13.10 4.2.7.2.686 [id number] [facility] 2020-11-25 22:09:00 2020-11-26 00:35:00 Emergency Jhoana Arnold [facility] 1.2.114 350.1.13.10 4.2.7.2.686 [id number] [facility] 2020-11-25 22:09:00 2020-11-26 00:35:00 Emergency X JHOANA ARNOLD [facility] ERT [id number] [facility] 2020-10-17 11:03:50 2020-10-17 11:18:50 Warp Tension Tester Visit Podevorah, Adc Lab Main Cristal Seaman [facility] 1.84.114 350.1.13.10 4.2.7.2.686 [id number] [facility] 2020-10-17 11:00:00 2020-10-17 11:00:00 Outpatient R CRISTAL SEAMAN [facility] [id number] [facility] 2020-10-17 00:00:00 2020-10-17 00:00:00 Orders Only Doctor Unassigned, Candelaria [facility] 1.114 350.1.13.10 4.2.7.2.686 [id number] [facility] 2020-10-05 09:47:00 2020-10-05 15:13:00 Emergency X KELSI CORBETT [facility] ERT [id number] [facility] 2020-10-05 09:47:00 2020-10-05 15:13:00 Emergency Kelsi Corbett [facility] 1.114 350.1.13.10 4.2.7.2.686 [id number] [facility] Results Test Description Test Time Test Comments Results Result Co mments Source HERPES SIMPLEX AB, [id number] 13:50:57* Test Item Value Reference Range [facility]ation [facility] HERPES SIMPLEX AB, IgM (test code = 54398) 0.84 INDEX SEE BELOW INTERPRETATION U NITS RANGE ----- ----- NEGATIVE INDEX <=0.89 EQUIVOCAL INDEX 0.90-1.09 POSITIVE INDEX >=1.10 GONORRHEA, NAAT, [id number] 12:26:16* Test Item Value Reference Range Interpretation Comme nts GONORRHEA, NAAT, URINE (test code = 02205) NEGATIVE NEGATIVE Testing is perfo rmed with Pradeep VLADISLAV 6800/8800 systems usingreal-time polymerase chain reaction (PCR) method. A negative result does not exclude low level infection, specimensampling error, or collection error. CHLAMYDIA, NAAT, [id number] 12:26:16* Test Item Value Reference Range Interpretation Comme nts CHLAMYDIA, NAAT, URINE (test code = 64227) NEGATIVE NEGATIVE Testing is perfo rmed with Pradeep VLADISLAV 6800/8800 systems usingreal-time polymerase chain reaction (PCR) method. A negative result does not exclude low level infection, specimensampling error, or collection error. HERPES SIMPLEX 1/2 AB, IgG [id number] 04:35:18* Test Item Value Reference Range Interpretation [facility] HERPES SIMPLEX 1 AB, IgG (test code = 69669) 11.300 INDEX SEE BELOW H INTERPRETATION UNITS RANGE ----- ----- NON-REACTIVE INDEX <1.000 REACTIVE INDEX >=1.000 HERPES SIMPLEX 2 AB, IgG (test code = 10101) 0.072 INDEX SEE BELOW INTERPRETATION U NITS RANGE ----- ----- NON-REACTIVE INDEX <1.000 REACTIVE INDEX >=1.000 HEPATITIS PANEL, [id number] 04:35:18* Test Item Value Reference Range Interpretation Comme nts HEPATITIS A IgM (test code = 20905) NON-REACTIVE NON-REACTIVE HEPATITIS B CORE IgM (test code = 4644) NON-REACTIVE NON-REACTIVE HEPATITIS B SURF AG (test code = 2739) NON-REACTIVE NON-REACTIVE HEPATITIS C ANTIBODY (test code = 4675) NON-REACTIVE NON-REACTIVE INTERPRETATION HEPATITIS A: (test code = 2552) (NOTE) Hepatitis A sero logy shows no evidence of acute hepatitis A. INTERPRETATION HEPATITIS B: (test code = 70006) (NOTE) Hepatitis B sero logy shows no evidence of acute hepatitis B andno indication of exposure to hepatitis B virus in the previous onur eight months. INTERPRETATION HEPATITIS C: (test code = 97791) (NOTE) Hepatitis C sero logy shows no evidence of exposure to hepatitisC virus at this time. It can take up to 12 months after exposure tothe hepatitis C virus for antibodies to become detectable in the blood in certain patients. UNLESS OTHERWISE INDICATED, ALL TESTING PERFORMED AT [facility] [address] [place] [address] NURSE OUTREACH CASE MANAGER: GABY MALDONADO M.D. [place] NUMBER [id number] [facility] [place] [id number] HIV 1/2 4TH GEN, RFLX [id number] 04:35:18* Test Item Value Reference Range Interpretation Comme nts HIV 1/2 4TH GEN, RFLX CONF ( test code = 3514) NON-REACTIVE NON-REACTIVE RPR REFLEX TO T. PALLIDUM - [id number] 03:16:34* Test Item Value Reference Range Interpretation Comme nts RPR (test code = 76036) NON-REACTIVE NON-REACTIVE RPR TITER (test code = 3500) NOT INDIC. TITER NOT INDIC. POCT Molecular [id number] 23:10:47* Test Item Value Reference Range Interpretation Comme nts POCT Molecular FluA (test co de = 60506-5) Negative Negative POCT Molecular FluB (test co de = 19659-3) Negative Negative Lab Interpretation (test cod e = 23720-4) Normal [facility] Molecular [id number] 23:10:47* Test Item Value Reference Range Interpretation Comme nts POCT Molecular FluA (test co de = 23650-4) Negative Negative POCT Molecular FluB (test co de = 10566-4) Negative Negative Lab Interpretation (test cod e = 67335-9) Normal [facility] SARS-COV-2 ANTIGEN (BINAX NOW)2023-10-16 23:05:00* Test Item Value Reference Range Interpretation Comme nts POCT SARS-COV-2 ANTIGEN (gladys t code = 12111-1) Positive Not Detected A On board controls acceptable with C Line (test code = 3574) Yes Lab Interpretation (test cod e = 96194-8) Abnormal [facility] SARS-COV-2 ANTIGEN (BINAX NOW)2023-10-16 23:05:00* Test Item Value Reference Range Interpretation Comme nts POCT SARS-COV-2 ANTIGEN (gladys t code = 08204-9) Positive Not Detected A On board controls acceptable with C Line (test code = 3574) Yes Lab Interpretation (test cod e = 85814-9) Abnormal [facility] MOLECULAR [id number] 22:59:34* Test Item Value Reference Range Interpretation Comme nts POCT Molecular Strep (test c ode = 57011-7) Negative Negative Lab Interpretation (test cod e = 08833-6) Normal [facility] MOLECULAR [id number] 22:59:34* Test Item Value Reference Range Interpretation Comme nts POCT Molecular Strep (test c ode = 60619-9) Negative Negative Lab Interpretation (test cod e = 40175-8) Normal [facility] SARS-COV-2 ANTIGEN (BINAX NOW)2023-02-07 15:14:00* Test Item Value Reference Range Interpretation Comme nts POCT SARS-COV-2 ANTIGEN (test code = 21314-5) Not Detected Not Detected On board controls acceptable with C Line (test code = 3574) Yes GALLO (test code = GALLO) accurate developme nt and interpretation of all internal controls Lab Interpretation (test code = 16754-2) Normal [facility] MOLECULAR [id number] 15:10:42* Test Item Value Reference Range Interpretation Comme nts POCT Molecular FluA (test co de = 26451-8) Positive Negative A Lab Interpretation (test cod e = 30371-2) Abnormal [facility] MOLECULAR [id number] 14:59:48* Test Item Value Reference Range Interpretation Comme nts POCT Molecular Strep (test c ode = 91012-1) Negative Negative Lab Interpretation (test cod e = 77418-7) Normal [facility], [id number] 22:34:41* Test Item Value Reference Range Interpretation Comme nts PREG SERUM (test code = 7343355789) Negative GALLO (test code = GALLO) Less than 10 IU/L. ?If low titer or ectopic is suspected, resubmit specimen in 48-72 hours. [facility] HospitalTR[facility] [id number] 22:33:51* Test Item Value Reference Range Interpretation Comments TROPONIN I (test code = 8205135828) 0.002 ng/mL See_Comment [Automated message] The system [...] of biotin. Lab Interpretation (test code = 62559-0) Normal [facility]SALICYLATE2022-10-19 22:27:20 SALICYLATE<10mg/L1 5:27 PM [facility]The[facility] Range: ? Analgesic and Antipyretic Use ? 20-100 mg/L ? ? Anti-Inflammatory Use ? 100-250 mg/L Toxic Range: ? Greater than 300 mg/LUnB[facility] [id number] 22:27:15ALCOHOL<10mg/dL08/07/2022 5:27 PM [facility]ENTERToxic Greater than or equal to 80 mg/dL. NOTE: Whole blood values are approximately 10% to 15% lower than serum and plasma.[facility] HospitalACETAMINOPHEN2022-10-19 22:27:10* Test Item Value Reference Range Interpretation Comme nts ACETAMINOP (test code = 4819521598) 10-30 L GALLO (test code = GALLO) Toxic: Greater sapphire n 200 ug/mL @ 4 hour post ingestion or greater than 50 ug/mL @ 12 hour post ingestion Lab Interpretation (test code = 11691-4) Abnormal [facility] METABOLIC PANEL (NA, K, CL, CO2, GLUCOSE, BUN, CREATININE, CA)2022-08-07 22:23:27* Test Item Value Reference Range Interpretation Comme nts NA (test code = 3008391141) 138 mmol/L 135-145 K (test code = 5605686080) 3.9 mmol/L 3.5-5 CL (test code = 0637120366) 102 mmol/L 98-108 CO2 TOTAL (test code = 0457882099) 27 mmol/L 23-31 AGAP (test code = 7456573808) 2-16 BUN (test code = 6386464955) 16 mg/dL 7-23 GLUCOSE (test code = 9447564834) 87 mg/dL 70-110 CREATININE (test code = 3679359527) 0.69 mg/dL 0.5-1.04 CALCIUM (test code = 4963486305) 9.7 mg/dL 8.6-10.6 eGFR (test code = 9605505301) mL/min/1.73m2 GALLO (test code = GALLO) Association [...] or urine or abnormalities in imaging tests). [facility] HospitalCREATINE [id number] 22:23:27* Test Item Value Reference Range Interpretation Comme nts CK (test code = 0325388128) 45 U/L 33-194 Lab Interpretation (test cod e = 72164-1) Normal [facility] HospitalHEPATIC FUNCTION PANEL (51240) (ALB,T.PRO,BILI T,BU/BC,ALT,AST,ALK PHOS)2022-08-07 22:23:27* Test Item Value Reference Range Interpretation Comme nts TOTAL BILI (test code = 2443766394) 0.7 mg/dL 0.1-1.1 BILI UNCON (test code = 7961117879) 0.3 mg/dL 0.1-1.1 BILI CONJ (test code = 9363952318) 0.0 mg/dL 0-0.3 T PROTEIN (test code = 9303953195) 7.4 g/dL 6.3-8.2 ALBUMIN (test code = 0383724543) 4.4 g/dL 3.5-5 ALK PHOS (test code = 6328809724) 80 U/L 34-122 ALTv (test code = 1742-6) 15 U/L 5-35 AST(SGOT) (test code = 4747480393) 15 U/L 13-40 Lab Interpretation (test cod e = 29874-9) Normal [facility] HospitalLIPASE2022-10-19 22:23:27* Test Item Value Reference Range Interpretation Comme nts LIPASE (test code = 1745804945) 51 U/L 0-220 Lab Interpretation (test cod e = 27361-6) Normal [facility] HospitalCBC WITH [id number] 22:06:06* Test Item Value Reference Range Interpretation [...] g/dL 31.6-35.1 H RDW-SD (test code = 19397-8) 40.6 fL 39-49.9 RDW-CV (test code = 788-0) 13.1 % 12-15.5 PLT (test code = 777-3) See_Comment H [Automated messa ge] The system which generated this result transmitted reference range: 166 - 358 10*3/?L. The reference range was not used to interpret this result as normal/abnormal. MPV (test code = 15721-0) 10.1 fL 9.5-12.9 NRBC/100 WBC (test code = 8309051327) See_Comment [Automated [employer] ssage] The system which generated this result transmitted reference range: 0.0 - 10.0 /100 WBCs. The reference range was not used to interpret this result as normal/abnormal. NRBC x10^3 (test code = 6671766199) See_Comment [Automated messa ge] The system which generated this result transmitted reference range: 10*3/?L. The reference range was not used to interpret this result as normal/abnormal. GRAN MAT (NEUT) % (test code = 770-8) 62.7 % IMM GRAN % (test code = 7317661468) 0.40 % LYMPH % (test code = 736-9) 25.7 % MONO % (test code = 5905-5) 7.8 % EOS % (test code = 713-8) 2.8 % BASO % (test code = 706-2) 0.6 % GRAN MAT x10^3(ANC) (test code = 1770648245) 8.40 10*3/uL 1.88-7.09 H IMM GRAN x10^3 (test code = 5148191535) 0.06 10*3/uL 0-0.06 LYMPH x10^3 (test code = 731-0) 3.44 10*3/uL 1.32-3.29 H MONO x10^3 (test code = 742-7) 1.04 10*3/uL 0.33-0.92 H EOS x10^3 (test code = 711-2) 0.38 10*3/uL 0.03-0.39 BASO x10^3 (test code = 704-7) 0.08 10*3/uL 0.01-0.07 H Lab Interpretation (test code = 46933-2) Abnormal [facility] HospitalSARS-CoV-2 (COVID-19) by RT-PCR (HIGH RISK) 2021-06-29 00:00:00* Test Item Value Reference Range Interpretation Comme nts SARS-CoV-2 INTERPRETATION (t est code = 28202) NEGATIVE SOURCE (test code = 16206) NOT SPECIFIED SARS-CoV-2 (COVID-19) by RT-PCR (HIGH RISK)2021-06-29 00:00:00* Test Item Value Reference Range Interpretation Comme nts SARS-CoV-2 INTERPRETATION (t est code = 15382) NEGATIVE SOURCE (test code = 39614) NOT SPECIFIED [id number] 00:00:00* Test Item Value Reference Range Interpretation Comme nts LIPASE (test code = 2058) 20 U/L [id number] 00:00:00* Test Item Value Reference Range Interpretation Comme nts LIPASE (test code = 2057) 20 U/L [id number] 00:00:00* Test Item Value Reference Range Interpretation Comme nts LIPASE (test code = 2058) 20 U/L COMPREHENSIVE METABOLIC [id number] 00:00:00* Test Item Value Reference Range Interpretation Comme nts GLUCOSE (test code = 2217) 92 MG/DL BUN (test code = 2208) 11 MG/DL CREATININE (test code = 2214) 0.80 MG/DL eGFR AMER. (test cod e = 31928) 108 ML/MIN/1.73 eGFR NON- AMER. (test code = 42981) 94 ML/MIN/1.73 CALC BUN/CREAT (test code = [...] code = 2219) 11 U/L COMPREHENSIVE METABOLIC [id number] 00:00:00* Test Item Value Reference Range Interpretation Comme nts GLUCOSE (test code = 2217) 92 MG/DL BUN (test code = 2208) 11 MG/DL CREATININE (test code = 2214) 0.80 MG/DL eGFR AMER. (test cod e = 63352) 108 ML/MIN/1.73 eGFR NON- AMER. (test code = 05042) 94 ML/MIN/1.73 CALC BUN/CREAT (test code = [...] ALT (test code = 2219) 11 U/L [id number] 00:00:00* Test Item Value Reference Range Interpretation Comme nts AMYLASE (test code = 2205) 52 U/L [id number] 00:00:00* Test Item Value Reference Range Interpretation Comme nts AMYLASE (test code = 2205) 52 U/L CULTURE, URINE [ADDED]2021-01-20 00:00:00* Test Item Value Reference Range Interpretation Comme nts CULTURE, URINE (test code = 47129) SPECIMEN NUMBER: [id number] CULTURE, URINE [ADDED]2021-01-20 00:00:00* Test Item Value Reference Range Interpretation Comme nts CULTURE, URINE (test code = 77984) SPECIMEN NUMBER: [id number] ACUTE HEPATITIS [id number] 00:00:00* Test Item Value Reference Range Interpretation Comme nts HEPATITIS A IgM (test code = 73566) NON-REACTIVE HEPATITIS B CORE IgM (test c ode = 4644) NON-REACTIVE HEPATITIS B SURF AG (test co de = 2739) NON-REACTIVE HEPATITIS C ANTIBODY (test c ode = 4675) NON-REACTIVE INTERPRETATION HEPATITIS A: (test code = 2552) (NOTE) INTERPRETATION HEPATITIS B: (test code = 10753) (NOTE) INTERPRETATION HEPATITIS C: (test code = 33792) (NOTE) CHLAMYDIA, AMPLIFIED, [id number] 00:00:00* Test Item Value Reference Range Interpretation Comme nts CHLAMYDIA, NAAT (test code = 18267) NEGATIVE CHLAMYDIA, AMPLIFIED, [id number] 00:00:00* Test Item Value Reference Range Interpretation Comme nts CHLAMYDIA, NAAT (test code = 83653) NEGATIVE GC, AMPLIFIED, [id number] 00:00:00* Test Item Value Reference Range Interpretation Comme nts GONORRHEA, NAAT (test code = 44184) NEGATIVE GC, AMPLIFIED, [id number] 00:00:00* Test Item Value Reference Range Interpretation Comme nts GONORRHEA, NAAT (test code = 00600) NEGATIVE [id number] 00:00:00* Test Item Value Reference Range Interpretation Comme nts RPR RESULT (test code = 3501) NON-REACTIVE RPR TITER (test code = 3500) NOT INDIC. TITER [id number] 00:00:00* Test Item Value Reference Range Interpretation Comme nts RPR RESULT (test code = 3501) NON-REACTIVE RPR TITER (test code = 3500) NOT INDIC. TITER [id number] 00:00:00* Test Item Value Reference Range Interpretation Comme nts RPR RESULT (test code = 3501) NON-REACTIVE RPR TITER (test code = 3500) NOT INDIC. TITER VAGINAL PATHOGENS DNA [id number] 00:00:00* Test Item Value Reference Range Interpretation Comme nts CONRAD SPECIES (test code = 79697) NEGATIVE G. VAGINALIS (test code = 37256) POSITIVE T. VAGINALIS (test code = 79496) NEGATIVE VAGINAL PATHOGENS DNA [id number] 00:00:00* Test Item Value Reference Range Interpretation Comme nts CONRAD SPECIES (test code = 38746) NEGATIVE G. VAGINALIS (test code = 38560) POSITIVE T. VAGINALIS (test code = 55557) NEGATIVE HIV AB/AG COMBO RFLX [id number] 00:00:00* Test Item Value Reference Range Interpretation Comme nts HIV 1/2 4TH GEN, RFLX CONF ( test code = 3514) NON-REACTIVE HIV AB/AG COMBO RFLX [id number] 00:00:00* Test Item Value Reference Range Interpretation Comme nts HIV 1/2 4TH GEN, RFLX CONF ( test code = 3514) NON-REACTIVE ACUTE HEPATITIS [id number] 00:00:00* Test Item Value Reference Range Interpretation Comme nts HEPATITIS A IgM (test code = 75566) NON-REACTIVE HEPATITIS B CORE IgM (test c ode = 4644) NON-REACTIVE HEPATITIS B SURF AG (test co de = 1829) NON-REACTIVE HEPATITIS C ANTIBODY (test c ode = 4694) NON-REACTIVE INTERPRETATION HEPATITIS A: (test code = 2552) (NOTE) INTERPRETATION HEPATITIS B: (test code = 14816) (NOTE) INTERPRETATION HEPATITIS C: (test code = 82035) (NOTE) CULTURE, [id number] 00:00:00* Test Item Value Reference Range Interpretation Comme nts CULTURE, URINE (test code = 89234) SPECIMEN NUMBER: [id number] CULTURE, [id number] 00:00:00* Test Item Value Reference Range Interpretation Comme nts CULTURE, URINE (test code = 89358) SPECIMEN NUMBER: [id number] CULTURE, [id number] 00:00:00* Test Item Value Reference Range Interpretation Comme nts CULTURE, URINE (test code = 21933) SPECIMEN NUMBER: [id number] CULTURE, [id number] 00:00:00* Test Item Value Reference Range Interpretation Comme nts CULTURE, URINE (test code = [address]) SPECIMEN NUMBER: [id number] SARS-CoV-2 (COVID-19) by RT-PCR (HIGH RISK)2020-11-03 00:00:00* Test Item Value Reference Range Interpretation Comme nts SARS-CoV-2 INTERPRETATION (t est code = 66545) NEGATIVE SOURCE (test code = 05015) NOT SPECIFIED SARS-CoV-2 (COVID-19) by RT-PCR (HIGH RISK)2020-11-03 00:00:00* Test Item Value Reference Range Interpretation Comme nts SARS-CoV-2 INTERPRETATION (t est code = 33609) NEGATIVE SOURCE (test code = 94636) NOT SPECIFIED CHLAMYDIA, AMPLIFIED, [id number] 00:00:00* Test Item Value Reference Range Interpretation Comme nts CHLAMYDIA, NAAT (test code = 10302) NEGATIVE CHLAMYDIA, AMPLIFIED, [id number] 00:00:00* Test Item Value Reference Range Interpretation Comme nts CHLAMYDIA, NAAT (test code = 12113) NEGATIVE GC, AMPLIFIED, [id number] 00:00:00* Test Item Value Reference Range Interpretation Comme nts GONORRHEA, NAAT (test code = 35396) NEGATIVE GC, AMPLIFIED, [id number] 00:00:00* Test Item Value Reference Range Interpretation Comme nts GONORRHEA, NAAT (test code = 61808) NEGATIVE VAGINAL PATHOGENS DNA [id number] 00:00:00* Test Item Value Reference Range Interpretation Comme nts CONRAD SPECIES (test code = ) NEGATIVE G. VAGINALIS (test code = 65381) POSITIVE T. VAGINALIS (test code = 69756) NEGATIVE VAGINAL PATHOGENS DNA [id number] 00:00:00* Test Item Value Reference Range Interpretation Comme nts CONRAD SPECIES (test code = ) NEGATIVE G. VAGINALIS (test code = 10136) POSITIVE T. VAGINALIS (test code = 65080) NEGATIVE ACUTE HEPATITIS [id number] 00:00:00* Test Item Value Reference Range Interpretation Comme nts HEPATITIS A IgM (test code = 40151) NON-REACTIVE HEPATITIS B CORE IgM (test c ode = 4644) NON-REACTIVE HEPATITIS B SURF AG (test co de = 2739) NON-REACTIVE HEPATITIS C ANTIBODY (test c ode = 4675) NON-REACTIVE INTERPRETATION HEPATITIS A: (test code = 2552) (NOTE) INTERPRETATION HEPATITIS B: (test code = 05447) (NOTE) INTERPRETATION HEPATITIS C: (test code = 39673) (NOTE) CHLAMYDIA, AMPLIFIED, [id number] 00:00:00* Test Item Value Reference Range Interpretation Comme nts CHLAMYDIA, TMA (test code = 05157) NEGATIVE CHLAMYDIA, AMPLIFIED, [id number] 00:00:00* Test Item Value Reference Range Interpretation Comme nts CHLAMYDIA, TMA (test code = 43580) NEGATIVE GC, AMPLIFIED, [id number] 00:00:00* Test Item Value Reference Range Interpretation Comme nts GONORRHEA, TMA (test code = 81627) NEGATIVE GC, AMPLIFIED, [id number] 00:00:00* Test Item Value Reference Range Interpretation Comme nts GONORRHEA, TMA (test code = 57238) NEGATIVE [id number] 00:00:00* Test Item Value Reference Range Interpretation Comme nts RPR RESULT (test code = 3501) NON-REACTIVE RPR TITER (test code = 3500) NOT INDIC. TITER [id number] 00:00:00* Test Item Value Reference Range Interpretation Comme nts RPR RESULT (test code = 3501) NON-REACTIVE RPR TITER (test code = 3500) NOT INDIC. TITER [id number] 00:00:00* Test Item Value Reference Range Interpretation Comme nts RPR RESULT (test code = 3501) NON-REACTIVE RPR TITER (test code = 3500) NOT INDIC. TITER HIV AB/AG COMBO RFLX [id number] 00:00:00* Test Item Value Reference Range Interpretation Comme nts HIV 1/2 4TH GEN, RFLX CONF ( test code = 3514) NON-REACTIVE PAP TEST, THINPREP, [id number] 00:00:00* Test Item Value Reference Range Interpretation Comme nts SOURCE: (test code = 8001) Cervical/Endocervical SLIDES: (test code = 8011) 1 LMP: (test code = 8021) 05/11/2020 SPECIMEN ADEQUACY: (test code = 16972) (NOTE) INTERPRETATION: (test code = 42027) NILM/NO EPITH. ABNORMALITY;SEE BELOW RUBBER ENGRAVER: (test code = 8101) JACKSON Mao(ASCP) LOCATION: (test code = 10352) (NOTE) CPT: (test code = 8140) (NOTE) VAGINAL PATHOGENS DNA [id number] 00:00:00* Test Item Value Reference Range Interpretation Comme nts CONRAD SPECIES (test code = 13648) NEGATIVE G. VAGINALIS (test code = 30354) NEGATIVE T. VAGINALIS (test code = 85460) NEGATIVE HIV AB/AG COMBO RFLX [id number] 00:00:00* Test Item Value Reference Range Interpretation Comme nts HIV 1/2 4TH GEN, RFLX CONF ( test code = 3514) NON-REACTIVE VAGINAL PATHOGENS DNA [id number] 00:00:00* Test Item Value Reference Range Interpretation Comme nts CONRAD SPECIES (test code = 60704) NEGATIVE G. VAGINALIS (test code = 64297) NEGATIVE T. VAGINALIS (test code = 63249) NEGATIVE PAP TEST, THINPREP, [id number] 00:00:00* Test Item Value Reference Range Interpretation Comme nts SOURCE: (test code = 8001) Cervical/Endocervical SLIDES: (test code = 8011) 1 LMP: (test code = 8021) 05/11/2020 SPECIMEN ADEQUACY: (test code = 77504) (NOTE) INTERPRETATION: (test code = 71282) NILM/NO EPITH. ABNORMALITY;SEE BELOW RUBBER ENGRAVER: (test code = 8101) JACKSON Mao(ASCP) LOCATION: (test code = 88313) (NOTE) CPT: (test code = 8140) (NOTE) ACUTE HEPATITIS [id number] 00:00:00* Test Item Value Reference Range Interpretation Comme nts HEPATITIS A IgM (test code = 89836) NON-REACTIVE HEPATITIS B CORE IgM (test c ode = 4644) NON-REACTIVE HEPATITIS B SURF AG (test co de = 2739) NON-REACTIVE HEPATITIS C ANTIBODY (test c ode = 4675) NON-REACTIVE INTERPRETATION HEPATITIS A: (test code = 2552) (NOTE) INTERPRETATION HEPATITIS B: (test code = 25341) (NOTE) INTERPRETATION HEPATITIS C: (test code = 25546) (NOTE) HPV HIGH RISK WITH GENOTYPE, [id number] 00:00:00* Test Item Value Reference Range Interpretation Comme nts HPV HIGH RISK INTERP (test c ode = 32798) NEGATIVE HPV 16 (test code = 52651) NEGATIVE HPV 18 (test code = 50818) NEGATIVE HPV, HR, OTHER GENOTYPES (te st code = 82370) NEGATIVE HPV HIGH RISK WITH GENOTYPE, [id number] 00:00:00* Test Item Value Reference Range Interpretation Comme nts HPV HIGH RISK INTERP (test c ode = 94994) NEGATIVE HPV 16 (test code = 08567) NEGATIVE HPV 18 (test code = 51757) NEGATIVE HPV, HR, OTHER GENOTYPES (te st code = 21943) NEGATIVE [id number] 00:00:00* Test Item Value Reference Range Interpretation Comme nts PROLACTIN (test code = 2800) 11.0 NG/ML [id number] 00:00:00* Test Item Value Reference Range Interpretation Comme nts PROLACTIN (test code = 2800) 11.0 NG/ML [id number] 00:00:00* Test Item Value Reference Range Interpretation Comme nts TSH, THIRD GENERATION (test code = 2821) 0.793 UIU/ML [id number] 00:00:00* Test Item Value Reference Range Interpretation Comme nts TSH, THIRD GENERATION (test code = 2821) 0.793 UIU/ML [id number] 00:00:00* Test Item Value Reference Range Interpretation Comme nts TSH, THIRD GENERATION (test code = 2821) 0.793 UIU/ML Notes Date/Time Note Provider Source 2024-01-01 16:51:37 tLyrr/8728f66+jbRaiEHXV+2RHrUe0oMSx WyGPAt3VFkQZFdJLg4yx1Klq8HM9a1264-0 12-31T16:51:37 Images from the original note were not included.Requested Renewalsdextroamphetamine-amphetami ne (ADDERALL) 30 mg tabletPossible duplicate: Hover to review recent actions on this medicationSig: Take 1 tablet by mouth in the morning and 1 tablet in the evening.Disp: 60 tablet Refills: 0Start: 01/01/2024Earliest Fill Date: 01/01/2024lass: eRXNon-formulary For: Attention deficit disorder (ADD) in adultLast ordered: 3 weeks ago (12/11/2023) by Ruby Jose Review Required Sekdcf1501/01/2024 04:48 PMProtocol Details This refill cannot be delegatedValid encounter within last 12 monthsTo be filled at: [id number] [place], [place] - [address] [facility] Viv VisitsDate Type Provider Dept112/17/22 Office Visit Gaby Palma MD [facility]08/11/23 Office Visit Laura Beltran MD [facility]02/03/23 Office Visit Laura Beltran MD [facility]12/06/22 Office Visit Trena Wyatt PA [facility]11/20/22 Office Visit Vaughn Tan FNP [facility]09/25/22 Office Visit Laura Beltran MD [facility] Fam MedShowing recent visits within past 540 days with a meds authorizing provider and meeting all other requirementsFuture AppointmentsNo visits were found meeting these conditions.Showing future appointments within next 150 days with a meds authorizing provider and meeting all other requirements 49760-5Xjfdakcbv encounter ApbsLM4236-40-00Q99:51:45Telephone encounter NoteTXT1.2.840.257214.1.13.104.2.7. 2.772014|[id number] for patient labc87670-9XvtuFHKOPFYYCZHBhcemjlfg C-CDA narrative [id number] M Fisher [address] JbgqSostbqsvvYqcszpfgtECOP153913415 1UJBJMASIRGMKDGUPYQFFLY5808-16-56S0 6:51:451.2.840.186720.1.72.3.15|1.2 .840.779298.1.13.104.2.7.2.727879_2 [id number] Sirena Crowe [facility] 2024-01-01 16:46:45 QwD2Je+AtGeMvu70O1FiVOwfsl3ueVtaz0/ ZDFFvtIinQpzk5KyVV/zMxr04qJLE4087-7 6:46:45 Copied from [facility] #[id number]. Topic: Clinical - Order>> Jan 01, 2024 4:46 PM Patient Student Worker wrote:Anne Marie Durham is a 43 year old female is calling in refill for :dextroamphetamine-amphetamine 30 mg tablet (AdderalL)[id number] [place] - [address] [facility] [address] [address]Isvff: [phone] Tkwnxoykgalcvn signed by Ravi Deal at 01/01/2024 4:48 PM RVH15344-9Fvswurnof encounter JcgkFC5771-04-33Y90:48:05Telephone encounter NoteTXT1.2.840.573964.1.13.104.2.7. 2.397898|[id number] for patient vmqj84979-8JunrLGCACRRVGAMFufzavyle C-CDA narrative text[id number] 2PKOQILRZAGSFFSSOEOPQLD1948-11-29F7 6:48:051.2.840.821195.1.72.3.15|1.2 .840.303255.1.13.104.2.7.2.727879_2 [id number] [facility] 2023-12-24 09:00:54 hPLauYMudipw4Bv2fnARIAn136UIcetTGpG YOyponAJrSpzMsHYvEqSHMUnYzdiQ3332-6 09:00:54 Anne Marie Durham is a 43 year old femalePatient requesting referral for ophthalmology and dermatology. Please advise. 74117-9Dnofdxzoh encounter UkviUI0360-24-02X62:04:48Telephone encounter NoteTXT1.2.840.657968.1.13.104.2.7. 2.878294|[id number] for patient tanl94014-8EjsvKIXASLTOJQISrhyfviaw C-CDA narrative fjaj138773975Yrkzqvd L ThompsonUT31 Cook [id number] 5DQAAQHNFOKBZABSTBETGUU4279-03-39F0 9:04:481.2.840.687970.1.72.3.15|1.2 .840.424314.1.13.104.2.7.2.727879_2 [id number] Saulo Carver [facility] 2023-12-11 15:06:12 1+kj85VZ4OCBCy5XrM0cd4JooIU5JGu0s53 k9dbJr2P7KIoYGK39Bn7WSxRqUf8R4079-5 5:06:12 Pt calling to report that she has contacted several pharmacies and has been told she will need to request a change in her Adderall medication to 60mg capsules or to 20mg tablets (disp 90) in order for her current pharmacy to fill. Pt states she does not want generic medication 53012-3Lfllbzkey encounter KjmyTH2964-03-10U46:09:16Telephone encounter NoteTXT1.2.840.496548.1.13.104.2.7. 2.721004|[id number] for patient evhx70842-5OaooZUKPZJDRRZLTjhrsvijz C-CDA narrative [id number] L Hernandez[id number] 9QTEPBLHZTPUCSYDTKNKRAA7661-06-00W6 5:09:161.2.840.393665.1.72.3.15|1.2 .840.841888.1.13.104.2.7.2.727879_2 [id number] Eliza Landon [facility] 2023-12-11 11:24:13 oRIn1gERnEkRZfNi5yiL9RfEVdCh9yFY2d3 6vzI8V/b++NooIPdTFg2BSXlFFPBx0881-8 :24:13 Anne Marie Durham is a 43 year old femalePatient calling asking if Rx dextroamphetamine-amphetamine (ADDERALL) [facility] mg [facility] [place] [facility]. Please advise. 42884-6Xiuksbulz encounter EveqHY5987-18-10L84:26:15Telephone encounter NoteTXT1.2.840.741217.1.13.104.2.7. 2.321106|[id number] for patient yrsg07560-8UkbvCOLVUKSAKLMRrehqjrjc C-CDA narrative camx781773882Awoaurw J [address] HqcqBrlspoxuvOjecblzdaNUZG371244024 0QIYYDQUFXTBSAKRTDHHLCM3333-56-08S7 1:26:151.2.840.411456.1.72.3.15|1.2 .840.246217.1.13.104.2.7.2.727879_2 [id number] Kaya Larios [facility] 2023-12-09 09:42:25 tJhtYB490T2/SDt29S6XpKZjtNBLRx4bB7T RIkJypOZwiXK8qm7bXqpCVmQ/e8Uz7124-2 09:42:25 Anne Marie Durham is a 43 year old femalePt states that her pharmacy has the ADHD medication on back order, please resubmit to:[facility] [place] [address]-5Hudkvazrm encounter SzapRE5944-00-20E67:48:39Telephone encounter NoteTXT1.2.840.959768.1.13.104.2.7. 2.654199|[id number] for patient tdxq36365-4AuaaVQLKLLMJJWZQxybmnden C-CDA narrative pkuf477465282Dwmtwsz M [address] IhqgHjeiloomzVshbvnpasSYLY912476772 0OTSKMTVTEWPQVNQFGCJXPS2920-06-37A9 9:48:391.2.840.751557.1.72.3.15|1.2 .840.179474.1.13.104.2.7.2.727879_2 [id number] Chantal Delatorre [facility] 2023-12-08 14:58:12 Rz7ICcJfis0mkBVh53jmbLi5WxcbEcpK7MF N272pXpgY3ApNTvCps1bcbe6WiPIh4745-0 12-08T14:58:12 Images from the original note were not included.Requested Renewalsdextroamphetamine-amphetami ne (ADDERALL) 30 mg tabletSig: Take 1 tablet by mouth in the morning and 1 tablet in the evening.Disp: 60 tablet Refills: 0Start: 12/08/2023Earliest Fill Date: 12/08/2023lass: eRXNon-formulary For: Attention deficit disorder (ADD) in adultLast ordered: 4 weeks ago (11/10/2023) by Ruby Jose Review Required Zonfjl0912/08/2023 02:13 PMProtocol Details This refill cannot be delegatedValid encounter within last 12 monthsTo be filled at: [id number] [place], [place] - [address] [facility] DRIVERecent VisitsDate Type Provider Dept112/17/22 Office Visit Gaby Palma MD [facility] Fam Med08/11/23 Office Visit Laura Beltran MD [facility] Med02/03/23 Office Visit Laura Beltran MD [facility] Med12/06/22 Office Visit Trena Wyatt PA [facility]11/20/22 Office Visit Vaughn Tan FNP [facility]09/25/22 Office Visit Laura Beltran MD [facility]07/09/22 Office Visit Laura Beltran MD [facility] MedShowing recent visits within past 540 days with a meds authorizing provider and meeting all other requirementsFuture AppointmentsDate Type Provider Dept12/15/23 Appointment Laura Beltran MD [facility] MedShowing future appointments within next 150 days with a meds authorizing provider and meeting all other requirements 34156-8Decrpjxvj encounter QbovJT2823-06-92A93:58:19Telephone encounter NoteTXT1.2.840.165917.1.13.104.2.7. 2.429972|[id number] for patient ldrr17155-5RqylJNTRCALGRFUAovjhzxlf C-CDA narrative hcyk462662473Nqgfelt Abida Sebastien [id number] 4KYXIOYNUEWZISJLUGWXCNQ2564-71-28S8 4:58:191.2.840.641361.1.72.3.15|1.2 .840.012238.1.13.104.2.7.2.727879_2 [id number] Sirena Crowe [facility] 2023-12-08 14:12:34 IK3M+DOxx1EN6yuEwbX9iw9n20lDTrkz6hm G5AS/vAIGfNR8y0TzTogX92FYC0EM9382-1 12-08T14:12:34 Anne Marie Durham is a 43 year old femalePt called requesting a refill. Pt is out of medication.[facility] #[id number] AT [facility] DRIVEPhone: Hglzawmygzzuwq signed by Mariaa Villegas at 12/08/2023 2:13 PM CAS45475-8Nyxnqflsj encounter QbjvSZ2653-54-49D42:13:35Telephone encounter NoteTXT1.2.840.792738.1.13.104.2.7. 2.598466|[id number] for patient fxnj57644-7KsomAOILCCZGKHTPanwqvfxr C-CDA narrative [id number] 3NPAVLIKAULUMXZXGWVSJGQ1976-86-59C6 4:13:351.2.840.451903.1.72.3.15|1.2 .840.667358.1.13.104.2.7.2.727879_2 [id number] [facility] 2023-12-04 12:13:53 FN1VLj161ms6o+/1Ei+edEwQ37Zob7/K1Xp 631IeWVE3dEcQSpZHL8EtuCnJN9jv5860-7 12-04T12:13:53 1.Anne Marie Durham is a 43 year old femalePt is requesting a referral to Dr Gurjit Romeo, [facility] in [place].Ph [phone] Vpqdl visit consultation.No appt currently per pt til referral placed.2. Pt is requesting brand name of [employer]- due to the dextroamphetamine-amphetamine (ADDERALL) 30 mg tablet does not like. 33174-8Smdagtcfj encounter LuwtXA8905-20-15X55:21:28Telephone encounter NoteTXT1.2.840.617731.1.13.104.2.7. 2.083916|[id number] for patient kect59657-2OdqgXOZCPHZWGUBSqskmszfo C-CDA narrative text[address] YvqtMobucnvfiSdhnnmvmbOPAR389014901 5VKXFAQSSDQVHZQGPBTCDNK5307-83-74Z6 2:21:281.2.840.978680.1.72.3.15|1.2 .840.106460.1.13.104.2.7.2.727879_2 [id number] [facility] 2023-11-27 08:27:14 hbFKY9dqGXqT9Flj4+kGlZjeFDEpPTlnuBt ARHMUAHthxzzjaTkRXE6us54u998K3333-9 08:27:14 error 51852-9Ksjxpgbyo encounter FrqiDH3957-18-97D93:35:49Telephone encounter NoteTXT1.2.840.061187.1.13.104.2.7. 2.788724|4094138669ULOiwlmayjs for patient lbhu86321-8MbqeVZBMJNYUCTXXeatmqnqt C-CDA narrative wvbj119054698MnLlzqvx Say[address] GdmkIictewnjeRqmtkolmoOEAD263001210 5WSMGTBHHVQBTXTXQXQURGM3400-01-36M7 8:35:491.2.840.144889.1.72.3.15|1.2 .840.186490.1.13.104.2.7.2.727879_2 [id number] Ravi Deal [facility] 2023-11-10 11:09:04 JEVfnfMrtp/TuUdOjoQD99VVQqze64ozE8V i29npQeU4YerB48h10UlIccx7MWi88575-6 1:09:04 Recent VisitsDate Type Provider Dept112/17/22 Office Visit Gaby Palma MD [facility]08/11/23 Office Visit Laura Beltran MD [facility]02/03/23 Office Visit Laura Beltran MD [facility]12/06/22 Office Visit Trena Wyatt PA [facility]11/20/22 Office Visit Vaughn Tan FNP [facility]09/25/22 Office Visit Laura Beltran MD [facility]07/09/22 Office Visit Laura Beltran MD [facility]06/04/22 Office Visit Laura Beltran MD [facility] Fam MedShowing recent visits within past 540 days with a meds authorizing provider and meeting all other requirementsFuture AppointmentsDate Type Provider Dept12/15/23 Appointment Laura Beltran MD [facility] MedShowing future appointments within next 150 days with a meds authorizing provider and meeting all other requirementsPatient is wanting to with back to 30 mg adderall 77342-7Bvxgveiwk encounter TnrvID2074-76-81V58:09:44Telephone encounter NoteTXT1.2.840.879969.1.13.104.2.7. 2.977471|[id number] for patient vvkz67128-9HmskGOBYTQIPBFEBlziqkygv C-CDA narrative textUT[address] NuvkOckssznkcBrwdfsetvZFOO963063346 8BNVFGUDFUGKBFXZBWJKGOX3088-54-61G2 1:09:441.2.840.741691.1.72.3.15|1.2 .840.687980.1.13.104.2.7.2.727879_2 [id number] [facility] 2023-11-10 09:11:44 zpDgxSpLRHDo6B7DzMnpdQeRHXmn/M2DxKY oODG6Q1PJL73HGxmzJS0rfuzMPs1t4481-4 11-10T09:11:44 Anne Marie Durham is a 43 year old femalePt called following up on request. Please advise. 95351-2Meayebqvv encounter VhypBD4433-90-74L78:15:29Telephone encounter NoteTXT1.2.840.729874.1.13.104.2.7. 2.425752|1007711650KCSvovuzodt for patient dedg40083-2LrciTXHFOSIQDEWJouvjxsls C-CDA narrative lgig86028375Imbnqor R [id number] 3UIHSIOAQFWALTLJEVFSKCT3064-85-80D9 9:15:291.2.840.773587.1.72.3.15|1.2 .840.159946.1.13.104.2.7.2.727879_2 [id number] Mariaa Villegas [facility] 2023-11-08 16:34:25 Recj9S2r1ye9eOOOMVOPKDGQnYxz77v0AyZ 5X1r6CpLSJx8b13daY5fCXBEv3J0Q1820-3 6:34:25 Anne Marie Durham is a 43 year old femalePt calling to request a prescription of her correct [facility] the 30mg pillsdextroamphetamine-amphetamine 30 mg tablet (AdderalL)[id number] - [address] [address]Czwrh: [phone] Wjrocwvxyjuvds signed by Theo Chang at 11/08/2023 4:37 PM MTY24485-5Vrdzypuat encounter TyspNK0697-93-12S16:37:37Telephone encounter NoteTXT1.2.840.150475.1.13.104.2.7. 2.176776|7391297495SBZtmmdtusr for patient cfko21385-4HctpGORACYQKRWVZvlcntuoz C-CDA narrative vooi147995511QslsTheo Chavez[address] StreetBmwuYkiasfwfsCujbtdxwwSYEW314312164 1AZHHWKQDHAAZPNTLFBHEWL3145-63-99O8 6:37:371.2.840.728257.1.72.3.15|1.2 .840.989696.1.13.104.2.7.2.727879_2 [id number] XanderAlthea Barnett [facility] 2023-10-08 13:26:52 BaCQLZuA7QiwCi2W+W2OrfwR9Oczsyd0Cp5 dnkclmtjqrhCsrxZhAg4o37u8XxB63305-3 3:26:52 Anne Marie Durham is a 43 year old femalePt states that her pharmacy doesn't have dextroamphetamine-amphetamine 30 mg tablet (AdderalL) in stock but they do have dextroamphetamine-amphetamine 20 mg tablet (AdderalL)She is requesting the dosage be changed to 20mg with an adjusted quantity to equal her current 30mg dosage. She states she currently takes two 30mg pills daily. Please contact pt if necessary [phone] (home)[id number] [place] [address] [address] [facility] [employer]: Gvwmqqvnzzplhi signed by Ravi Deal at 10/08/2023 1:30 PM VAT93463-1Yysppounl encounter GhbcWR9854-94-56C82:30:43Telephone encounter NoteTXT1.2.840.176722.1.13.104.2.7. 2.923375|9119488108ARGdmsjkawg for patient zjaa93253-0QhnhHRTODTUPEYGBpwrestqq C-CDA narrative gdxn151456464CeQzehwo Say[address] DswfTtknaeejfYbepsrqxaIXNL040538378 8RCSASRZZPWWJWGDVBQAMVJ3957-88-80L7 3:30:431.2.840.306870.1.72.3.15|1.2 .840.994599.1.13.104.2.7.2.727879_1 [id number] Ravi Deal [facility] 2023-07-03 11:58:29 yus8QVIVrt73zBcngu+JqgoW0lF4pSsSqjS CZrUXHzgsVExVNPKLPEgurF4gVdKX9657-1 07-03T11:58:29 Recent VisitsDate Type Provider Dept 02/03/23 Office Visit Laura Beltran MD [facility] 12/06/22 Office Visit Trena Wyatt PA [facility] 11/20/22 Office Visit Vaughn Tan FNP [facility] 09/25/22 Office Visit Laura Beltran MD [facility] 07/09/22 Office Visit Laura [...] provider and meeting all other requirementsLast refill wasdextroamphetamine-amphetamine (ADDERALL) 30 mg tablet 60 tablet 0 06/09/2023 95269-8Rpovwooas encounter HunpLJ6131-09-70U35:58:50Telephone encounter NoteTXT1.2.840.472469.1.13.104.2.7. 2.528277|[id number] for patient svjt33493-3PdbmVFFMTAJOGJ[address] Dw[id number] 0EURSQLZAITXGEAVZKUZEPT2663-35-48H2 1:58:501.2.840.264672.1.72.3.15|1.2 .840.504222.1.13.104.2.7.2.727879_1 [id number] [facility] 2023-07-03 11:50:58 QO+gTUQmv1gBUabsiZNE904rlEBneTEGv+D cbHbjF+52SrJ9xW2Ts8nZti+48ZpR6563-6 07-03T11:50:58 Anne Marie Durham is a 42 year old femalePt calling to have refill on medication and has 10 supplements left.dextroamphetamine-amphetamine (ADDERALL) 30 mg tabletPlease [id number] - [place], [place] - [address] [address] [facility] TeeBeeDee [id number] [facility] [address]Dnyzy: [phone] Wsattxxzfkawdg signed by Yao Winston at 07/03/2023 11:54 AM TAS68778-4Dprojlnfm encounter KsgxOD0112-68-29V53:54:26Telephone encounter NoteTXT1.2.840.164530.1.13.104.2.7. 2.199941|[id number] for patient kxqv59112-9KyesMPNNZZIPMD[address] Nd[id number] 8CODNGJFCPYPWNVKPDUIIEY8088-09-52N1 1:54:261.2.840.978455.1.72.3.15|1.2 .840.597376.1.13.104.2.7.2.727879_1 [id number] [facility] 2023-06-16 08:03:57 oC8+zpME7spOATV0cdwBDN4DlqHgq7+3Nsa lNZkB2+QlKw9HYiUvjrJf7cITC/PQ7527-8 06-16T08:03:57 Patient presented to clinic with c/o face [...] verbalized understanding.Sirena Crowe LVN 06/16/2023 8:08 AM 11217-4Fcuelswhz encounter LibuEP7876-49-05N04:08:53Telephone encounter NoteTXT1.2.840.861736.1.13.104.2.7. 2.105748|1665049632YOInsudhqfl for patient rfgs52698-0TjbkYN606196448Spviian M Sebastien [address] Ik[id number] 5JQHMPWLVIHCYSGOLUELQGY7370-34-50A0 8:08:531.2.840.254817.1.72.3.15|1.2 .840.054272.1.13.104.2.7.2.727879_1 [id number] Sirena M Sebastien [facility] 2023-06-09 10:48:12 iumI5QxToNV+2c14i3SrxZuS1SGX7naNMwR CLwd0j37m/0VlBVAUVdMQIBsDvQZJ5201-4 06-09T10:48:12 Recent VisitsDate Type Provider Dept 02/03/23 Office Visit Laura Beltran MD [facility] 12/06/22 Office Visit Trena Wyatt PA [facility] 11/20/22 Office [...] provider and meeting all other requirementsLast refill wasdextroamphetamine-amphetamine (ADDERALL) 30 mg tablet 60 tablet 0 05/05/2023 81322-9Igwrtjrta encounter BlgnUF2203-92-60H90:48:36Telephone encounter NoteTXT1.2.840.258194.1.13.104.2.7. 2.242776|[id number] for patient vqek22173-7JeokCUNSVOQUNF[address] [id number] 3EMQEMYVSMPNTRHNXTUJMKS1246-48-34M0 0:48:361.2.840.246709.1.72.3.15|1.2 .840.143318.1.13.104.2.7.2.727879_1 [id number] [facility] 2023-06-09 09:19:15 85JEYuna3IeYfOYdhs+wb4XXrGWZopjR7gb U91V2klozAPuoQmBWaGhvi78f0psC2043-6 06-09T09:19:15 Patient is requesting a refill.BELLEVUE [id number] [address] [facility]ITALPhone: [id number] encounter [id number] encounter [id number] for patient [id number] [id number] [facility]"
--- NOTE | 2024-01-26 21:58 | ER ---
Nurse's Notes [facility] Name: Anne Marie Cruz Age: 43 yrs Sex: Female : 1980 Arrival Date: 01/26/2024 Time: 21:13 Bed 10 Private MD: Diagnosis: Rash and other nonspecific skin eruption Presentation: 01/25 21:30 Chief complaint: Patient states: "I've been itchy all over, got flashes, having a scab mb9 on my head that causes me to have a headache, bloating of my stomach, and bites all over. I don't know if I have fleas, a parasite, bed bugs, or lice. I'm super itchy". Coronavirus screen: At this time, the client does not indicate any symptoms associated with coronavirus-19. Ebola Screen: No symptoms or risks identified at this time. Initial Sepsis Screen: Does the patient meet any 2 criteria? No. Patient's initial sepsis screen is negative. Does the patient have a suspected source of infection? No. Patient's initial sepsis screen is negative. Risk Assessment: Do you want to hurt yourself or someone else? Patient reports no desire to harm self or others. Onset of symptoms was January 26, 2024. 21:30 Acuity: PARISH 3 mb9 21:30 Method Of Arrival: Ambulatory mb9 Triage Assessment: 23:02 Headache History: Denies prior headaches. General: Appears in no apparent distress. cm10 comfortable, Behavior is calm, cooperative. Pain: Denies pain. Neuro: No deficits noted. Level of Consciousness is awake, alert, obeys commands, Oriented to person, place, time, situation. Respiratory: No deficits noted. Airway is patent Respiratory effort is even, unlabored, Respiratory pattern is regular, symmetrical. 23:02 Pain: Also complains of. cm10 Historical: - Allergies: 21:32 Latex; mb9 - PMHx: 21:32 Anxiety; Bipolar disorder; Chronic pain; mb9 - PSHx: 21:32 hernia repair; mb9 - Immunization history:: Adult Immunizations up to date. - Infectious Disease History:: Denies. - Social history:: Smoking status: Patient denies any tobacco usage or history of. Screenin:01 [facility] ED Fall Risk Assessment (Adult) History of falling in the last 3 months, cm10 including since admission No falls in past 3 months (0 pts) Confusion or Disorientation No (0 pts) Intoxicated or Sedated No (0 pts) Impaired Gait No (0 pts) Mobility Assist Device Used No (0 pt) Altered Elimination No (0 pt) Score/Fall Risk Level 0 - 2 = Low Risk Oriented to surroundings, Maintained a safe environment, Hourly rounding (assess needs \\T\\ fall precautionary measures) done. Abuse screen: Denies threats or abuse. Denies injuries from another. Nutritional screening: No deficits noted. Tuberculosis screening: No symptoms or risk factors identified. Vital Signs: 21:30 BP 140 / 89; Pulse 98; Resp 18; Temp 98.2; Pulse Ox 100% ; mb9 ED Course: 21:17 Patient arrived in ED. ra3 21:30 Greg Olguin PA is PHCP. cp 21:30 Reed Perea MD is Attending Physician. cp 21:30 Arm band placed on. mb9 21:32 Triage completed. mb9 22:39 Patient's name was called from [facility]. No response. cm10 23:01 Patient has correct armband on for positive identification. Provided Education on: cm10 Follow-up instructions. 23:01 No provider procedures requiring assistance completed. Patient did not have IV access cm10 during this emergency room visit. Administered Medications: 21:55 CANCELLED (Physician Discretion): [id number] mg PO once cp 22:45 Drug: MethylPREDNISolone Sodium Succinate IM 125 mg IM once Route: IM; Site: right cm10 gluteus; 23:03 Follow up: Response: No adverse reaction cm10 22:45 Drug: diphenhydrAMINE PO 50 mg PO once Route: PO; cm10 23:03 Follow up: Response: No adverse reaction cm10 Medication: 23:01 VIS not applicable for this client. cm10 Outcome: 21:57 Discharge ordered by . cp 23:01 Discharged to home ambulatory, [facility] cm10 23:01 Condition: good 23:01 Discharge instructions given to patient, Instructed on discharge instructions, follow up and referral plans. medication usage, Demonstrated understanding of instructions, follow-up care, medications, Prescriptions given X 2, 23:02 Patient left the ED. cm10 Signatures: Greg Olguin PA PA cp Breneman, Mary Beth, RN RN mb9 Marcia Hadley RN RN cm10 Tanya Toribio ra3 Corrections: (The following items were deleted from the chart) 21:33 21:30 Chief complaint: Patient states: "I've been itchy all over, got flashes, having a mb9 scab on my head that causes me to have a headache, bloating of my stomach, and bites all over. I don't know if I have fleas, bed bugs, or lice. I'm super itchy" mb9
--- NOTE | 2024-01-26 21:58 | EDPHYS ---
Physician Documentation [facility] Name: Anne Marie Cruz Age: 43 yrs Sex: Female : 1980 Arrival Date: 01/26/2024 Time: 21:13 Bed 10 Private MD: ED Physician Reed Perea HPI: 01/25 21:55 This 43 yrs old Female presents to ER via Ambulatory with complaints of Headache, cp Itching - all over, hot,sweating with stomach pain. 21:55 The patient complains of pain to the top of head. The patient describes the headache as cp aching. Associated signs and symptoms: Pertinent positives: rash, generalized itching, Pertinent negatives: fever, neck stiffness, vomiting. Patient reports concern for possible scabies and/or lice infection. Reports sleeping outside with boyfriend. C/o rash all over, generalized itching, headache from head sores. Historical: - Allergies: 21:32 Latex; mb9 - PMHx: 21:32 Anxiety; Bipolar disorder; Chronic pain; mb9 - PSHx: 21:32 hernia repair; mb9 - Immunization history:: Adult Immunizations up to date. - Infectious Disease History:: Denies. - Social history:: Smoking status: Patient denies any tobacco usage or history of. ROS: 21:55 Constitutional: Negative for body aches, chills, fever, poor PO intake, cp 21:55 Eyes: Negative for injury, pain, redness, and discharge, cp 21:55 ENT: Negative for drainage from ear(s), ear pain, sore throat, difficulty swallowing, difficulty handling secretions, 21:55 Cardiovascular: Negative for chest pain, 21:55 Respiratory: Negative for cough, shortness of breath, wheezing, 21:55 Abdomen/GI: Positive for nausea, Negative for vomiting, diarrhea, constipation, 21:55 Skin: Positive for rash, diffusely, pruritus, 21:55 Neuro: Positive for headache, 21:55 All other systems are negative, Exam: 21:55 Constitutional: The patient appears in no acute distress, alert, awake, non-toxic, well cp developed, well nourished, anxious, 21:55 Head/Face: Normocephalic, atraumatic. cp 21:55 Eyes: Periorbital structures: appear normal, Conjunctiva: normal, no exudate, no injection, Sclera: no appreciated abnormality, Lids and lashes: appear normal, bilaterally, 21:55 ENT: External ear(s): are unremarkable, Nose: is normal, Mouth: Lips: moist, Oral mucosa: moist, Posterior pharynx: Airway: no evidence of obstruction, patent, 21:55 Chest/axilla: Inspection: normal, 21:55 Cardiovascular: Rate: normal, 21:55 Respiratory: the patient does not display signs of respiratory distress, Respirations: normal, no use of accessory muscles, no retractions, labored breathing, is not present, 21:55 Skin: rash a moderate rash is noted, rash can be described as excoriated, nonspecific, and is diffusely located, Vital Signs: 21:30 BP 140 / 89; Pulse 98; Resp 18; Temp 98.2; Pulse Ox 100% ; mb9 MDM: 21:30 Patient medically screened. cp 21:55 Differential diagnosis: scabies, dermatitis, cellulitis, eczema. cp 21:57 Data reviewed: vital signs, nurses notes, and as a result, I will discharge patient. cp 21:57 Counseling: I had a detailed discussion with the patient and/or guardian regarding the cp historical points, exam findings, and any diagnostic results supporting the discharge/admit diagnosis, to return to the emergency department if symptoms worsen or persist or if there are any questions or concerns that arise at home. Administered Medications: 21:55 CANCELLED (Physician Discretion): [id number] mg PO once cp 22:45 Drug: MethylPREDNISolone Sodium Succinate IM 125 mg IM once Route: IM; Site: right cm10 gluteus; 23:03 Follow up: Response: No adverse reaction cm10 22:45 Drug: diphenhydrAMINE PO 50 mg PO once Route: PO; cm10 23:03 Follow up: Response: No adverse reaction cm10 Disposition: 01/26 21:29 Co-signature as Attending Physician, Reed Perea MD I agree with the assessment sp4 and plan of care. I reviewed the patient's care provided by the Advanced Practice Provider and agree with the diagnosis and treatment plan. Disposition Summary: 01/26/24 21:57 Discharge Ordered Notes: Location: Home cp Problem: new cp Symptoms: have improved cp Condition: Stable cp Diagnosis - Rash and other nonspecific skin eruption cp Followup: cp - With: Private Physician - When: 1 week - Reason: Recheck today's complaints Discharge Instructions: - Discharge Summary Sheet cp - Rash, Adult cp - Scabies, Adult cp Forms: - Medication Reconciliation Form cp - Thank You Letter cp - Antibiotic Education cp - Prescription Opioid Use cp - Patient Portal Instructions cp - Leadership Thank You Letter cp Prescriptions: - Vistaril 25 mg Oral capsule - take 2 capsule ORAL route every 6 hours as needed for itching; 30 capsule; cp Refills: 0, Product Selection Permitted - Elimite 5 % Topical cream - apply 1 application TOPICAL route one time Apply 60 grams of cream per cp treatment. Wash after 12 hours. repeat treatment 2 weeks later; 120 gram; Refills: 0, Product Selection Permitted Signatures: Greg Olguin PA PA cp Breneman, Mary Beth RN RN mb9 Reed Perea MD MD sp4 Marcia Hadley RN RN cm10 Corrections: (The following items were deleted from the chart) 01/25 21:55 21:55 diphenhydrAMINE PO 25 mg PO once ordered. cp cp
[2024-01-26] MEDS ORDERED: METHYLPREDNISOLONE 125 MG INJ ONE (22:40)
[2024-01-26] MEDS ORDERED: DIPHENHYDRAMINE 25 MG TAB/CAP ONE (22:41)
[2024-01-27 04:27] VITALS: BP 140/89; TEMP 98.2; O2SAT 100
== END 2024-01-26 23:02 | disposition home or self-care (01) ==
LOC: ER 21:13
DX: R21 Rash and other nonspecific skin eruption (principal)
CPT/HCPCS: 96372; 99284; J2930

== ENCOUNTER 2024-03-18 00:01 | Emergency (ER) | payer OTHER, SELFPAY ==
--- OUTSIDE RECORDS SUMMARY | 2024-03-18 00:08 | XMS REPORT | Continuity of Care Document ---
Author Name Unknown Address [address] [facility] [address] [place] [address] [facility] Address [address] [facility] [address] [place] [address] Care Team Providers Care Senior Actuarial Analyst Name Role Phone Roseanne Otto TAYLOR Primary Care Physician Laura Beltran MD Attending Clinician + [phone] ENEIDA CANNON Attending Clinician Unavail able LAURA BELTRAN Attending Clinician UnaVivienne Be Attending Clinician [phone] Unknown, Attending Attending Clinician Unavailab VIVIENNE Koo Attending Clinician Unavailable Doctor Unassigned, [place] Attending Clinician U GABY Pink Attending Clinician Unavailable GABY PALMA Attending Clinician Unavailable MAIKEL SIGALA Attending Clinician Unavailable [facility] STRONG Attending Clinician Unavailable Mc Strong MD Attending Clinician [phone] Feroz Barakat MD Attending Clinician [phone] FEROZ BARAKAT Attending Clinician Unavailab le YESSENIA CALL Attending Clinician Unavailable [facility] Attending Clinician Un available Yessenia Cruz Attending Clinician [phone] UNKNOWN, ATTENDING Attending Clinician Unavailab le Provider, [facility] Attending Clinician Unavailable FLOR INFANTE Attending Clinician Unavailable Naresh PARKER, Flor Attending Clinician [phone] Trena Fairbanks Attending Clinician [phone] STU BORGES Attending Clinician Unavailab TRENA Rinaldi Attending Clinician Unavailable VAUGHN TAN Attending Clinician Unavailable Britney EXTRACTIONS TECHNICIAN, Vaughn Attending Clinician [phone] ARNEL ALARCON Attending Clinician Unavailable MILA KEYS Attending Clinician Unavailable Jamar EXTRACTIONS TECHNICIAN, Mila Attending Clinician [phone] MUNDO PEDROZA Attending Clinician Unavailable Yovany EXTRACTIONS TECHNICIAN, Mundo Attending Clinician [phone] Luis Fernando THORNTON, Lora Attending Clinician Unavailable Marc Khoury MD Attending Clinician [phone] Marilyn EXTRACTIONS TECHNICIAN, Nayla Larios Attending Clinician + [phone] JORDAN HALEY Attending Clinician UnavailRoxy ANGELPJhoana Attending Clinician [phone] JHOANA ARNOLD Attending Clinician Unavailalthea moore Pob, [facility] Attending Clinician Unavailwen Seaman MD, Cristal Seth Attending Clinician [phone] CRISTAL SEAMAN Attending Clinician Unava KELSI Borrego Attending Clinician Unavailab Kelsi Wang DO Attending Clinician [phone] JHOANA ARNOLD Admitting Clinician Unavailalthea moore Payers Payer Name Policy Type Policy Number Effective Date Expirati on Date Source [facility] MEDICAID [id number] 2017 00:00:00 [facility] [id number] [id number] 00:00:00 MEDICAID OF [place] [id number] 2017 00:00:00 Problems Condition Name Condition Details Condition Category Status Onset Date Resolution Date Last Treatment Date Treating Clinician Comments Source Cellulitis of left lower extremity Cellulitis of left lower extremity Disease Active 11-20 00:00: 00 [facility] Abscess Abscess Disease Active 11-20 00:00: 00 [facility] Skin sore Skin sore Disease Active 2- 00:00: 00 [facility] Follow-up exam Follow-up exam Disease Active 2- 00:00: 00 [facility] Bipolar 1 disorder, manic, mild Bipolar 1 disorder, manic, mild Disease Active 9- 00:00: 00 [facility] Attention deficit disorder (ADD) in adult Attention deficit disorder (ADD) in adult Disease Active 8- 00:00: 00 [facility] Allergies, Adverse Reactions, Alerts Allergy Name Allergy Type Status Severity Reaction(s) Onset Date Inactive Date Treating Clinician Comments Source NO KNOWN ALLERGIE S Drug Class Active [facility] Social History Social Habit Start Date Stop Date Quantity Comments Source Gender identity [facility] Sexual orientation [facility] Alcoholic beverage intake 2024-01-07 00:00:00 2024-01-07 00:00:00 Ex-drinker (finding) [facility] Alcohol intake 2024-01-07 00:00:00 2024-01-07 00:00:00 Ex-drinker (finding) [facility] Tobacco use and exposure 2024-01-04 00:00:00 2024-01-04 00:00:00 Smokeless tobacco non-user [facility] History of Social function 2023-08-11 00:00:00 2023-08-11 00:00:00 [facility] Exposure to SARS-CoV-2 (event) 2023-01-28 00:00:00 2023-02-07 09:18:00 Not sure [facility] History of tobacco use 2010-03-28 00:00:00 Cigarette Smoker [facility] Sex assigned at 1980 00:00:00 1980 00:00:00 [facility] Smoking Status Start Date Stop Date Source Smokes tobacco daily 2024-01-04 00:00:00 [facility] Ex-smoker 2022-07-09 00:00:00 2022-07-09 00:00:00 [facility] Medications Ordered Medication Name Filled Medication Name Start Date Stop Date Current Medication? Ordering Clinician Indication Dosage Frequency Signature (SIG) Comments Components Source dextroamphe tamine-amph etamine (ADDERALL) 30 mg tablet 5-20 00:00: 00 Yes [id number] 30mg Take 1 tablet by mouth in the morning and 1 tablet in the evening. [facility] dextroamphe tamine-amph etamine (ADDERALL) 30 mg tablet 4-24 00:00: 00 03-08 00:00 :00 No [id number] 30mg Take 1 tablet by mouth in the morning and 1 tablet in the evening. [facility] dextroamphe tamine-amph etamine (ADDERALL) 30 mg tablet 3-18 00:00: 00 Yes [id number] 30mg Take 1 tablet by mouth in the morning and 1 tablet in the evening. [facility] ketorolac (TORADOL) injection 30 mg 17 21:45: 00 01-03 21:11 :00 No [id number] 30mg [facility] predniSONE 20 mg tablet 17 00:00: 00 01-06 00:00 :00 No [id number] 40mg Take 2 tablets by mouth in the morning for 5 days. [facility] hydrocortis one 2.5 % cream 17 00:00: 00 01-06 00:00 :00 No [id number] Apply to area(s) 2 (two) times daily for 7 days. [facility] dextroamphe tamine-amph etamine (ADDERALL) 20 mg tablet 2-22 00:00: 00 03-08 00:00 :00 No [id number] 20mg Take 1 tablet by mouth in the morning and 1 tablet at noon and 1 tablet in the evening. [facility] dextroamphe tamine-amph etamine (ADDERALL) 30 mg tablet 2-22 00:00: 00 12-31 00:00 :00 No [id number] 30mg Take 1 tablet by mouth in the morning and 1 tablet in the evening. [facility] dextroamphe tamine-amph etamine (ADDERALL) 30 mg tablet 12-09 00:00: 00 Yes [id number] 30mg Take 1 tablet by mouth in the morning and 1 tablet in the evening. [facility] dextroamphe tamine-amph etamine (ADDERALL) 30 mg tablet 12-08 00:00: 00 Yes [id number] 30mg Take 1 tablet by mouth in the morning and 1 tablet in the evening. [facility] dextroamphe tamine-amph etamine (ADDERALL) 30 mg tablet 11-10 00:00: 00 12-08 00:00 :00 No [id number] 30mg Take 1 tablet by mouth in the morning and 1 tablet in the evening. [facility] ketorolac (TORADOL) injection 30 mg 2022-10 23:45: 00 10-16 23:05 :00 No [id number] 30mg [facility] ibuprofen 800 mg tablet 2022-10 00:00: 00 Yes [id number] 800mg Take 1 tablet by mouth every 8 (eight) hours as needed (With meals). [facility] promethazin e-dextromet horphan 6.25-15 mg/5 mL syrup 2022-10 00:00: 00 Yes [id number] 5mL Take 5 mL by mouth 4 (four) times daily as needed for Cough. [facility] albuterol 90 mcg/actuati on inhaler 2022-10 00:00: 00 Yes [id number] 2{puff} Inhale 2 Puffs every 6 (six) hours as needed for Wheezing or Shortness of Breath. [facility] fluticasone propionate 50 mcg/actuati on nasal spray 2022-10 00:00: 00 Yes [id number] Use two sprays in each nostril daily for a week, then use one spray in each nostril daily [facility] nirmatrelvi r-ritonavir 300 mg (150 mg x 2)-100 mg tablet 2022-10 00:00: 00 11-10 00:00 :00 No [id number] 3{tbl} Take 3 tablets by mouth in the morning and 3 tablets in the evening. [facility] dextroamphe tamine-amph etamine (ADDERALL) 20 mg tablet 2022-10 220 00:00: 00 11-10 00:00 :00 No [id number] 20mg Take 1 tablet by mouth in the morning and 1 tablet at noon and 1 tablet in the evening. [facility] dextroamphe tamine-amph etamine (ADDERALL) 30 mg tablet 2022-10 2- 00:00: 00 Yes [id number] 30mg Take 1 tablet by mouth in the morning and 1 tablet in the evening. [facility] dextroamphe tamine-amph etamine (ADDERALL) 30 mg tablet 2022-10 00:00: 00 10-06 00:00 :00 No [id number] 30mg Take 1 tablet by mouth in the morning and 1 tablet in the evening. [facility] dextroamphe tamine-amph etamine (ADDERALL) 30 mg tablet 2022-10 1 00:00: 00 Yes [id number] 30mg Take 1 tablet by mouth in the morning and 1 tablet in the evening. [facility] dextroamphe tamine-amph etamine (ADDERALL) 30 mg tablet 2022-10 1 00:00: 00 09-10 00:00 :00 No [id number] 30mg Take 1 tablet by mouth in the morning and 1 tablet in the evening. [facility] dextroamphe tamine-amph etamine (ADDERALL) 30 mg tablet 2022-10 1 00:00: 00 Yes [id number] 30mg Take 1 tablet by mouth in the morning and 1 tablet in the evening. [facility] dextroamphe tamine-amph etamine (ADDERALL) 30 mg tablet 2022-10 0-23 00:00: 00 09-03 00:00 :00 No [id number] 30mg Take 1 tablet by mouth in the morning and 1 tablet in the evening. [facility] VENTOLIN HFA 90 mcg/actuati on inhaler 2022-10 0 00:00: 00 08-11 00:00 :00 No [id number] INHALE 2 PUFFS BY MOUTH EVERY 6 HOURS NEEDED FOR WHEEZING [facility] ketorolac (TORADOL) injection 30 mg 07-17 02:30: 00 07-17 01:48 :00 No [id number] [facility] tablet 07-17 00:00: 00 Yes 50mg Take 1 tablet by mouth in the morning and 1 tablet in the evening. [facility] hydrOXYzine 50 mg tablet 07-16 00:00: 00 08-11 00:00 :00 No [id number] 50mg Take 1 tablet by mouth in the morning and 1 tablet at noon and 1 tablet in the evening. [facility] diphenhydrA MINE (BENADRYL) tablet 25 mg 07-15 09:45: 00 07-15 09:40 :00 No 25mg 25 mg, Oral, ONCE, 1 dose, On Fri07/15/23 at 0445, [facility] dextroamphe tamine-amph etamine (ADDERALL) 30 mg tablet 07-07 00:00: 00 08-11 00:00 :00 No [id number] 30mg Take 1 tablet by mouth in the morning and 1 tablet in the evening. [facility] VENTOLIN HFA 90 mcg/actuati on inhaler 9-14 00:00: 00 07-28 00:00 :00 No [id number] INHALE 2 PUFFS BY MOUTH EVERY 6 HOURS NEEDED FOR WHEEZING [facility] dextroamphe tamine-amph etamine (ADDERALL) 30 mg tablet 21 00:00: 00 07-07 00:00 :00 No [id number] 30mg Take 1 tablet by mouth in the morning and 1 tablet in the evening. [facility] VENTOLIN HFA 90 mcg/actuati on inhaler 8-18 00:00: 00 07-03 00:00 :00 No [id number] INHALE 2 PUFFS BY MOUTH EVERY 6 HOURS NEEDED FOR WHEEZING [facility] VENTOLIN HFA 90 mcg/actuati on inhaler 7-22 00:00: 00 06-06 00:00 :00 No [id number] INHALE 2 PUFFS BY MOUTH EVERY 6 HOURS NEEDED FOR WHEEZING [facility] dextroamphe tamine-amph etamine (ADDERALL) 30 mg tablet 17 00:00: 00 06-09 00:00 :00 No [id number] 30mg Take 1 tablet by mouth in the morning and 1 tablet in the evening. [facility] VENTOLIN HFA 90 mcg/actuati on inhaler 6-20 00:00: 00 05-10 00:00 :00 No [id number] INHALE 2 PUFFS BY MOUTH EVERY 6 HOURS NEEDED FOR WHEEZING [facility] dextroamphe tamine-amph etamine (ADDERALL) 30 mg tablet 6-15 00:00: 00 05-05 00:00 :00 No [id number] 30mg Take 1 tablet by mouth in the morning and 1 tablet in the evening. [facility] dextroamphe tamine-amph etamine (ADDERALL) 30 mg tablet 5-22 00:00: 00 04-03 00:00 :00 No [id number] 30mg Take 1 tablet by mouth in the morning and 1 tablet in the evening. [facility] VENTOLIN HFA 90 mcg/actuati on inhaler 5-20 00:00: 00 04-08 00:00 :00 No [id number] INHALE 2 PUFFS BY MOUTH EVERY 6 HOURS NEEDED FOR WHEEZING [facility] ketorolac (TORADOL) injection 30 mg 4-21 15:45: 00 02-07 14:58 :00 No [id number] 30mg [facility] promethazin e-dextromet horphan 6.25-15 mg/5 mL syrup -21 00:00: 00 02-18 04:59 :00 No [id number] 5mL Take 5 mL by mouth 4 (four) times daily for 10 days. [facility] oseltamivir (TAMIFLU) 75 mg capsule 4-21 00:00: 00 02-13 04:59 :00 No [id number] 75mg Take 1 capsule by mouth in the morning and 1 capsule in the evening. Do all this for 5 days. [facility] traZODone 100 mg tablet 02-03 10:06: 00 02-03 00:00 :00 No 100mg Take 1 tablet by mouth at bedtime. [facility] dextroamphe tamine-amph etamine (ADDERALL) 30 mg tablet 02-03 00:00: 00 03-10 00:00 :00 No [id number] 30mg Take 1 tablet by mouth in the morning and 1 tablet in the evening. [facility] dextroamphe tamine-amph etamine (ADDERALL) 30 mg tablet -20 00:00: 00 02-03 00:00 :00 No [id number] 30mg Take 1 tablet by mouth in the morning and 1 tablet in the evening. [facility] promethazin e-dextromet horphan 6.25-15 mg/5 mL syrup 18 00:00: 00 01-15 04:59 :00 No [id number] 5mL Take 5 mL by mouth 4 (four) times daily for 10 days. [facility] traZODone 100 mg tablet 01-03 17:01: 55 Yes 100mg Take 1 tablet by mouth at bedtime. [facility] triamcinolo ne acetonide 0.1 % cream 17 00:00: 00 08-11 00:00 :00 No [id number] Apply to area(s) 2 (two) times daily. [facility] albuterol 90 mcg/actuati on inhaler 317 00:00: 00 06-06 00:00 :00 No [id number] 2{puff} Inhale 2 Puffs every 6 (six) hours as needed for Wheezing. [facility] benzonatate 100 mg capsule 317 00:00: 00 02-03 00:00 :00 No [id number] 200mg Take 2 capsules by mouth every 8 (eight) hours as needed for Cough. [facility] predniSONE 20 mg tablet 17 00:00: 00 01-09 04:59 :00 No [id number] 20mg Take 1 tablet by mouth in the morning for 5 days. [facility] albuterol (VENTOLIN HFA) 90 mcg/actuati on inhaler 314 00:00: 00 03-08 23:29 :11 No [id number] INHALE 2 PUFFS BY MOUTH EVERY 6 HOURS NEEDED FOR WHEEZING [facility] dextroamphe tamine-amph etamine (ADDERALL) 30 mg tablet 20 00:00: 00 01-06 00:00 :00 No [id number] 30mg Take 1 tablet by mouth in the morning and 1 tablet in the evening. [facility] azelastine 137 mcg (0.1 %) nasal spray 12-06 00:00: 00 08-11 00:00 :00 No [id number] 1{spray } Use 1 [place] in each nostril in the morning and 1 [place] in the evening. Use in each nostril as directed [facility] benzonatate (TESSALON PERLES) 100 mg capsule 17 00:00: 00 02-03 00:00 :00 No [id number] 100mg Take 1 capsule by mouth every 8 (eight) hours as needed for Cough. [facility] methylPREDN ISolone (MEDROL, ADAM,) 4 mg tablets 17 00:00: 00 02-03 00:00 :00 No [id number] Take by mouth SEE-INSTRU CTIONS. follow package directions [facility] albuterol 90 mcg/actuati on inhaler 12-06 00:00: 00 12-31 00:00 :00 No [id number] 2{puff} Inhale 2 Puffs every 6 (six) hours as needed for Wheezing. [facility] triamcinolo ne acetonide 0.1 % cream 2 00:00: 00 01-03 00:00 :00 No [id number] Apply to area(s) 2 (two) times daily. [facility] sulfamethox azole-trime thoprim 800-160 mg per tablet 11-19 00:00: 00 12-06 00:00 :00 No [facility] hydrOXYzine 25 mg tablet 11-15 00:00: 00 02-03 00:00 :00 No TAKE 1-2 TABLET BY MOUTH FOR SLEEP [facility] mupirocin 2 % ointment - 00:00: 00 02-03 00:00 :00 No APPLY SPARINGLY TOPICALLY TO THE AFFECTED AREA TWICE DAILY [facility] SENNA 8.6 mg tablet 11-13 00:00: 00 02-03 00:00 :00 No TAKE 2-4 TABLETS BY MOUTH DIRECTED NEEDED. DO NOT EXCEED 4 TABLETS IN 24 HOURS [facility] predniSONE 20 mg tablet 11-13 00:00: 00 12-06 00:00 :00 No 20mg Take 20 mg by mouth every morning. [facility] omeprazole 40 mg capsule - 00:00: 00 02-03 00:00 :00 No TAKE 1 CAPSULE BY MOUTH IN THE MORNING [facility] FAMOTIDINE 11-05 00:00: 00 No LAMOTRIGINE -12 00:00: 00 No dextroamphe tamine-amph etamine (ADDERALL) 30 mg tablet 1-11 00:00: 00 12-09 00:00 :00 No [id number] 30mg Take 1 tablet by mouth in the morning and 1 tablet in the evening. [facility] ACYCLOVIR 2021-10 00:00: 00 No acyclovir 400 mg tablet 2021-10 00:00: 00 02-03 00:00 :00 No 400mg Take 1 tablet by mouth every 8 (eight) hours. [facility] TAKE 1-2 TABLET(S) FOR SLEEP 2021-10 00:00: 00 No 25 TAKE 1 TABLET DAILY. 2021-10 00:00: 00 No 100 AMPHET/DEXT R 30MG Tablets 2021-10 00:00: 00 No dextroamphe tamine-amph etamine (ADDERALL) 30 mg tablet 2021-10 00:00: 00 Yes [id number] 30mg Take 1 tablet by mouth in the morning and 1 tablet in the evening. [facility] FAMOTIDINE 2021-10 00:00: 00 No OMEPRAZOLE 2021-10 00:00: 00 No BUSPIRONE 2021-10 2 00:00: 00 No TRAMADOL HCL 2021-10 00:00: 00 No dextroamphe tamine-amph etamine (ADDERALL) 30 mg tablet 2021-10 00:00: 00 10-10 00:00 :00 No [id number] 30mg Take 1 tablet by mouth in the morning and 1 tablet in the evening. [facility] TAKE 1 TABLET DAILY. 2021-10 [...] dextroamphe tamine-amph etamine (ADDERALL) 20 mg tablet 2022-1 1-16 00:00: 00 09-25 00:00 :00 No [id number] 20mg Take 1 tablet by mouth in the morning and 1 tablet in the evening. [facility] TRAZODONE 2021-10 0- 00:00: 00 No TRAZODONE 2021-1028 00:00: 00 No dextroamphe tamine-amph etamine (ADDERALL) 20 mg tablet 2021-10 0-24 00:00: 00 Yes [id number] 20mg Take 1 tablet by mouth in the morning and 1 tablet in the evening. [facility] diazePAM (VALIUM) injection 2 mg 2021-10 02:15: 00 08-08 02:20 :00 No 2mg 2 mg, Slow IV Push, ONCE, 1 dose, On Fri08/07/22 at 2115, STAT [facility] diazePAM (VALIUM) injection 2 mg 2021-10 01:45: 00 08-08 01:43 :00 No 2mg 2 mg, Slow IV Push, ONCE, 1 dose, On Fri08/07/22 at 2045, STAT [facility] NaCl 0.9% (NS) bolus infusion 1,000 mL 2021-10 22:00: 00 08-08 00:30 :00 No 1000mL at 999 mL/hr, 1,000 mL, IV Infusion, ONCE, 1 dose, On Fri08/07/22 at 1700, [facility] diazePAM (VALIUM) tablet 5 mg 2021-10 22:00: 00 08-07 21:48 :00 No 5mg 5 mg, Oral, ONCE, 1 dose, On Fri08/07/22 at 1700, [facility] AZITHROMYCI N TAB 250MG 07-10 00:00: 00 No METRONIDAZO L TAB 500MG 07-10 00:00: 00 No traZODone 100 mg tablet 07-09 09:29: 11 Yes 100mg Take 100 mg by mouth at bedtime. [facility] clonazePAM 0.5 mg tablet 07-09 09:29: 09 07-09 00:00 :00 No .5mg Take 0.5 mg by mouth at bedtime. [facility] OXcarbazepi ne 300 mg tablet 07-09 09:28: 57 07-09 00:00 :00 No 300mg Take 300 mg by mouth at bedtime. [facility] amoxicillin -clavulanat e (AUGMENTIN) 875-125 mg per tablet 07-09 09:28: 22 07-09 00:00 :00 No 1{tbl} Take 1 tablet by mouth 2 (two) times daily. [facility] dextroamphe tamine-amph etamine (ADDERALL) 20 mg tablet 07-09 00:00: 00 08-12 00:00 :00 No [id number] 20mg Take 1 tablet by mouth in the morning and 1 tablet in the evening. [facility] TAKE 1 TABLET BY MOUTH ONCE DAILY 06-05 00:00: 00 No 10 METRONIDAZO L TAB 500MG 06-05 00:00: 00 No 500 AZITHROMYCI N TAB 250MG 06-05 00:00: 00 No 250 clonazePAM 0.5 mg tablet 06-04 13:20: 16 Yes .5mg Take 0.5 mg by mouth at bedtime. [facility] traZODone 50 mg tablet 06-04 13:19: 27 06-04 00:00 :00 No 50mg Take 50 mg by mouth at bedtime. [facility] lithium carbonate 300 mg tablet 06-04 13:17: 48 06-04 00:00 :00 No 900mg Take 900 mg by mouth at bedtime. [facility] dextroamphe tamine-amph etamine (ADDERALL) 20 mg tablet 06-04 00:00: 00 07-09 00:00 :00 No [id number] 20mg Take 1 tablet by mouth in the morning and 1 tablet in the evening. [facility] TAKE 1 TABLET BY MOUTH TWICE DAILY 2021-0 7-12 00:00: 00 No 20 &lt 2022-0 7-12 00:00: 00 No 100 benzonatate 100 mg capsule 2021-0 7-10 00:00: 00 08-16 00:00 :00 No [id number] 100mg Take 1 capsule by mouth 3 (three) times daily as needed for Cough. [facility] Lamictal 25 mg tablet 2021-0 6-30 00:00: 00 No 2mg trazodone 50 mg tablet 2021-0 630 00:00: 00 No 1mg &lt 2021-0 630 00:00: 00 No Dose Unknown 2021-0 630 00:00: 00 No TAKE 1 TABLET BY MOUTH ONCE DAILY 2021-0 630 00:00: 00 No lamoTRIgine 25 mg tablet 2021-0 630 00:00: 00 02-03 00:00 :00 No 50mg Take 2 tablets by mouth in the morning. [facility] Dose Unknown 2021-0 5-31 00:00: 00 No Dose Unknown 2-0 3-21 00:00: 00 No Dose Unknown 2-0 3-21 00:00: 00 No Dose Unknown 2-0 3-21 00:00: 00 No Dose Unknown 2-0 3-21 00:00: 00 No Dose Unknown 2-0 3-14 00:00: 00 No Dose Unknown 2-0 3-14 00:00: 00 No Dose Unknown 2-0 3-14 00:00: 00 No Dose Unknown 2-0 3-14 00:00: 00 No Lamictal 25 mg tablet 2021-0 2-17 00:00: 00 No 2mg trazodone 50 mg tablet 2021-0 2-17 00:00: 00 No 1mg Dose Unknown 2-0 1-20 00:00: 00 No Dose Unknown 2-0 1-20 00:00: 00 No Lamictal 25 mg tablet 2020-1 2-06 00:00: 00 No 2mg trazodone 50 mg tablet 2020-1 2-06 00:00: 00 No 1mg Lamictal 25 mg tablet 2020-10 00:00: 00 No 1mg Lamictal 25 mg tablet 2020-10 00:00: 00 No 2mg trazodone 50 mg tablet 2020-10 00:00: 00 No 1mg Lamictal 25 mg tablet 2020-10 00:00: 00 No 1mg trazodone 50 mg tablet 2020-10 00:00: 00 No 1mg amoxicillin -clavulanat e (AUGMENTIN) 875-125 mg per tablet 07-18 15:10: 21 Yes 1{tbl} Take 1 tablet by mouth 2 (two) times daily. [facility] OXcarbazepi ne 300 mg tablet 07-18 15:10: 21 Yes 300mg Take 300 mg by mouth at bedtime. [facility] Lamictal 25 mg tablet 07-10 00:00: 00 No 1mg trazodone 50 mg tablet 07-10 00:00: 00 No 1mg Abilify 30 mg tablet 06-20 00:00: 00 No 1mg oxcarbazepi ne 600 mg tablet 06-20 00:00: 00 No 2mg lithium carbonate 300 mg capsule 06-20 00:00: 00 No 3mg benzonatate 100 mg capsule 05-05 00:00: 00 07-09 00:00 :00 No [id number] 100mg Take 1 capsule by mouth 3 (three) times daily as needed for Cough. [facility] Lamictal 25 mg tablet 04-27 00:00: 00 No 1mg hydroxyzine HCl 25 mg tablet 04-27 00:00: 00 No 1mg Lamictal 25 mg tablet 03-30 00:00: 00 No 1mg hydroxyzine HCl 25 mg tablet 03-30 00:00: 00 No 1mg pantoprazol e 40 mg EC tablet 03-28 00:00: 00 02-03 00:00 :00 No [id number] 40mg Take 1 tablet by mouth daily. [facility] Lamictal 25 mg tablet 2020-0 5-14 00:00: 00 No 1mg hydroxyzine HCl 25 mg tablet 2020-0 5-14 00:00: 00 No 1mg Lamictal 25 mg tablet 2020-0 4-16 00:00: 00 No 1mg hydroxyzine HCl 25 mg tablet 2020-0 4-16 00:00: 00 No 1mg metronidazo le 500 mg tablet 2020-0 4-03 00:00: 00 No 1mg ciprofloxac in 500 mg tablet 2020-0 4-03 00:00: 00 No 1mg Lamictal 25 mg tablet 2020-0 3-19 00:00: 00 No 1mg hydroxyzine HCl 25 mg tablet 2020-0 3-19 00:00: 00 No 1mg Augmentin 875 mg-125 mg tablet 0 3-17 00:00: 00 No 1mg Macrobid 100 mg capsule 2020-0 3-10 00:00: 00 No 1mg Lamictal 25 mg tablet 2020-0 2-26 00:00: 00 No 1mg hydroxyzine HCl 25 mg tablet 2020-0 2-26 00:00: 00 No 1mg Macrobid 100 mg capsule 2020-0 2-09 00:00: 00 No 1mg Lamictal 25 mg tablet 2020-0 2-01 00:00: 00 No 1mg hydroxyzine HCl 25 mg tablet 2020-0 2-01 00:00: 00 No 1mg Lamictal 25 mg tablet 2020-0 1-15 00:00: 00 No 1mg hydroxyzine HCl [...] triamcinolo ne acetonide 0.1 % topical cream 805 00:00: 00 No 1% Flagyl 500 mg tablet 805 00:00: 00 No 1mg acyclovir 400 mg tablet 8 00:00: 00 No 1mg acyclovir 400 mg tablet 715 00:00: 00 No 1mg Latuda 20 mg tablet 08 00:00: 00 No 1mg Immunizations Ordered Immunization Name Filled Immunization Name Date Status Comments Source SARS-COV-2 COVID-19 LUISANA/J&J VACCINE 2021-01-15 00:00:00 Completed [facility] SARS-COV-2 COVID-19 LUISANA/J&J VACCINE 2021-01-15 00:00:00 Completed [facility] SARS-COV-2 COVID-19 LUISANA/J&J VACCINE 2021-01-15 00:00:00 Completed [facility] SARS-COV-2 COVID-19 LUISANA/J&J VACCINE 2021-01-15 00:00:00 Completed [facility] SARS-COV-2 COVID-19 LUISANA/J&J VACCINE 2021-01-15 00:00:00 Completed [facility] SARS-COV-2 COVID-19 LUISANA/J&J VACCINE 2021-01-15 00:00:00 Completed [facility] SARS-COV-2 COVID-19 LUISANA/J&J VACCINE 2021-01-15 00:00:00 Completed [facility] SARS-COV-2 COVID-19 LUISANA/J&J VACCINE 2021-01-15 00:00:00 Completed [facility] SARS-COV-2 COVID-19 LUISANA/J&J VACCINE 2021-01-15 00:00:00 Completed [facility] SARS-COV-2 COVID-19 LUISANA/J&J VACCINE 2021-01-15 00:00:00 Completed [facility] SARS-COV-2 COVID-19 LUISANA/J&J VACCINE 2021-01-15 00:00:00 Completed [facility] SARS-COV-2 COVID-19 LUISANA/J&J VACCINE 2021-01-15 00:00:00 Completed [facility] SARS-COV-2 COVID-19 LUISANA/J&J VACCINE 2021-01-15 00:00:00 Completed [facility] SARS-COV-2 COVID-19 LUISANA/J&J VACCINE 2021-01-15 00:00:00 Completed [facility] SARS-COV-2 COVID-19 LUISANA/J&J VACCINE 2021-01-15 00:00:00 Completed [facility] SARS-COV-2 COVID-19 LUISANA/J&J VACCINE 2021-01-15 00:00:00 Completed [facility] SARS-COV-2 COVID-19 LUISANA/J&J VACCINE 2021-01-15 00:00:00 Completed [facility] SARS-COV-2 COVID-19 LUISANA/J&J VACCINE 2021-01-15 00:00:00 Completed [facility] SARS-COV-2 COVID-19 LUISANA/J&J VACCINE 2021-01-15 00:00:00 Completed [facility] SARS-COV-2 COVID-19 LUISANA/J&J VACCINE 2021-01-15 00:00:00 Completed [facility] SARS-COV-2 COVID-19 LUISANA/J&J VACCINE 2021-01-15 00:00:00 Completed [facility] SARS-COV-2 COVID-19 LUISANA/J&J VACCINE 2021-01-15 00:00:00 Completed [facility] SARS-COV-2 COVID-19 LUISANA/J&J VACCINE 2021-01-15 00:00:00 Completed [facility] SARS-COV-2 COVID-19 LUISANA/J&J VACCINE 2021-01-15 00:00:00 Completed [facility] SARS-COV-2 COVID-19 LUISANA/J&J VACCINE 2021-01-15 00:00:00 Completed [facility] SARS-COV-2 COVID-19 LUISANA/J&J VACCINE 2021-01-15 00:00:00 Completed [facility] SARS-COV-2 COVID-19 LUISANA/J&J VACCINE 2021-01-15 00:00:00 Completed [facility] SARS-COV-2 COVID-19 LUISANA/J&J VACCINE 2021-01-15 00:00:00 Completed [facility] SARS-COV-2 COVID-19 LUISANA/J&J VACCINE 2021-01-15 00:00:00 Completed [facility] SARS-COV-2 COVID-19 LUISANA/J&J VACCINE 2021-01-15 00:00:00 Completed [facility] SARS-COV-2 COVID-19 LUISANA/J&J VACCINE 2021-01-15 00:00:00 Completed [facility] SARS-COV-2 COVID-19 LUISANA/J&J VACCINE 2021-01-15 00:00:00 Completed [facility] SARS-COV-2 COVID-19 LUISANA/J&J VACCINE 2021-01-15 00:00:00 Completed [facility] SARS-COV-2 COVID-19 LUISANA/J&J VACCINE 2021-01-15 00:00:00 Completed [facility] SARS-COV-2 COVID-19 LUISANA/J&J VACCINE 2021-01-15 00:00:00 Completed [facility] SARS-COV-2 COVID-19 LUISANA/J&J VACCINE 2021-01-15 00:00:00 Completed [facility] SARS-COV-2 COVID-19 LUISANA/J&J VACCINE 2021-01-15 00:00:00 Completed [facility] SARS-COV-2 COVID-19 LUISANA/J&J VACCINE 2021-01-15 00:00:00 Completed [facility] SARS-COV-2 COVID-19 LUISANA/J&J VACCINE 2021-01-15 00:00:00 Completed [facility] SARS-COV-2 COVID-19 LUISANA/J&J VACCINE 2021-01-15 00:00:00 Completed [facility] SARS-COV-2 COVID-19 LUISANA/J&J VACCINE 2021-01-15 00:00:00 Completed [facility] SARS-COV-2 COVID-19 LUISANA/J&J VACCINE 2021-01-15 00:00:00 Completed [facility] SARS-COV-2 COVID-19 LUISANA/J&J VACCINE 2021-01-15 00:00:00 Completed [facility] SARS-COV-2 COVID-19 LUISANA/J&J VACCINE 2021-01-15 00:00:00 Completed [facility] SARS-COV-2 COVID-19 LUISANA/J&J VACCINE 2021-01-15 00:00:00 Completed [facility] SARS-COV-2 COVID-19 LUISANA/J&J VACCINE 2021-01-15 00:00:00 Completed [facility] SARS-COV-2 COVID-19 LUISANA/J&J VACCINE 2021-01-15 00:00:00 Completed [facility] SARS-COV-2 COVID-19 LUISANA/J&J VACCINE 2021-01-15 00:00:00 Completed [facility] SARS-COV-2 COVID-19 LUISANA/J&J VACCINE 2021-01-15 00:00:00 Completed [facility] SARS-COV-2 COVID-19 LUISANA/J&J VACCINE 2021-01-15 00:00:00 Completed [facility] SARS-COV-2 COVID-19 LUISANA/J&J VACCINE Unknown Completed [facility] SARS-COV-2 COVID-19 LUISANA/J&J VACCINE Unknown Completed [facility] SARS-COV-2 COVID-19 LUISANA/J&J VACCINE Unknown Completed [facility] SARS-COV-2 COVID-19 LUISANA/J&J VACCINE Unknown Completed [facility] SARS-COV-2 COVID-19 LUISANA/J&J VACCINE Unknown Completed [facility] SARS-COV-2 COVID-19 LUISANA/J&J VACCINE Unknown Completed [facility] SARS-COV-2 COVID-19 LUISANA/J&J VACCINE Unknown Completed [facility] SARS-COV-2 COVID-19 LUISANA/J&J VACCINE Unknown Completed [facility] SARS-COV-2 COVID-19 LUISANA/J&J VACCINE Unknown Completed [facility] SARS-COV-2 COVID-19 LUISANA/J&J VACCINE Unknown Completed [facility] SARS-COV-2 COVID-19 LUISANA/J&J VACCINE Unknown Completed [facility] SARS-COV-2 COVID-19 LUISANA/J&J VACCINE Unknown Completed [facility] SARS-COV-2 COVID-19 LUISANA/J&J VACCINE Unknown Completed [facility] SARS-COV-2 COVID-19 LUISANA/J&J VACCINE Unknown Completed [facility] SARS-COV-2 COVID-19 LUISANA/J&J VACCINE Unknown Completed [facility] SARS-COV-2 COVID-19 LUISANA/J&J VACCINE Unknown Completed [facility] SARS-COV-2 COVID-19 LUISANA/J&J VACCINE Unknown Completed [facility] SARS-COV-2 COVID-19 LUISANA/J&J VACCINE Unknown Completed [facility] SARS-COV-2 COVID-19 LUISANA/J&J VACCINE Unknown Completed [facility] SARS-COV-2 COVID-19 LUISANA/J&J VACCINE Unknown Completed [facility] SARS-COV-2 COVID-19 LUISANA/J&J VACCINE Unknown Completed [facility] SARS-COV-2 COVID-19 LUISANA/J&J VACCINE Unknown Completed [facility] SARS-COV-2 COVID-19 LUISANA/J&J VACCINE Unknown Completed [facility] SARS-COV-2 COVID-19 LUISANA/J&J VACCINE Unknown Completed [facility] SARS-COV-2 COVID-19 LUISANA/J&J VACCINE Unknown Completed [facility] SARS-COV-2 COVID-19 LUISANA/J&J VACCINE Unknown Completed [facility] SARS-COV-2 COVID-19 LUISANA/J&J VACCINE Unknown Completed [facility] SARS-COV-2 COVID-19 LUISANA/J&J VACCINE Unknown Completed [facility] SARS-COV-2 COVID-19 LUISANA/J&J VACCINE Unknown Completed [facility] SARS-COV-2 COVID-19 LUISANA/J&J VACCINE Unknown Completed [facility] SARS-COV-2 COVID-19 LUISANA/J&J VACCINE Unknown Completed [facility] SARS-COV-2 COVID-19 LUISANA/J&J VACCINE Unknown Completed [facility] SARS-COV-2 COVID-19 LUISANA/J&J VACCINE Unknown Completed [facility] SARS-COV-2 COVID-19 LUISANA/J&J VACCINE Unknown Completed [facility] SARS-COV-2 COVID-19 LUISANA/J&J VACCINE Unknown Completed [facility] SARS-COV-2 COVID-19 LUISANA/J&J VACCINE Unknown Completed [facility] SARS-COV-2 COVID-19 LUISANA/J&J VACCINE Unknown Completed [facility] Vital Signs Vital Name Observation Time Observation Value Comments S ource Systolic blood pressure 2024-01-07 20:03:00 148 mm[Hg] [facility] Diastolic blood pressure 2024-01-07 20:03:00 89 mm[Hg] [facility] Heart rate 2024-01-07 20:02:00 87 /min [facility] Body temperature 2024-01-07 20:02:00 36.61 Annia [facility] Body height 2024-01-07 20:02:00 162.6 cm [facility] Body weight 2024-01-07 20:02:00 65.318 kg [facility] BMI 2024-01-07 20:02:00 24.72 kg/m2 [facility] Systolic blood pressure 2024-01-04 20:56:00 126 mm[Hg] [facility] Diastolic blood pressure 2024-01-04 20:56:00 80 mm[Hg] [facility] Heart rate 2024-01-04 20:56:00 71 /min [facility] Body temperature 2024-01-04 20:56:00 36.72 Annia [facility] Respiratory rate 2024-01-04 20:56:00 20 /min [facility] Body height 2024-01-04 20:56:00 162.6 cm Univ [facility] Body weight 2024-01-04 20:56:00 67.631 kg Univ [facility] BMI 2024-01-04 20:56:00 25.59 kg/m2 Univ [facility] Oxygen saturation in Arterial blood by Pulse oximetry 2024-01-04 20:56:00 100 /min [facility] Systolic blood pressure 2023-10-16 22:45:00 126 mm[Hg] [facility] Diastolic blood pressure 2023-10-16 22:45:00 79 mm[Hg] [facility] Heart rate 2023-10-16 22:45:00 94 /min [facility] Body temperature 2023-10-16 22:45:00 37.06 Annia [facility] Body height 2023-10-16 22:45:00 162.6 cm Univ [facility] Body weight 2023-10-16 22:45:00 63.095 kg Univ [facility] BMI 2023-10-16 22:45:00 23.88 kg/m2 Univ [facility] Oxygen saturation in Arterial blood by Pulse oximetry 2023-10-16 22:45:00 99 /min [facility] Systolic blood pressure 2023-08-11 18:07:00 121 mm[Hg] [facility] Diastolic blood pressure 2023-08-11 18:07:00 80 mm[Hg] [facility] Heart rate 2023-08-11 18:07:00 96 /min [facility] Body height 2023-08-11 18:07:00 162.6 cm Univ [facility] Body weight 2023-08-11 18:07:00 64.411 kg Univ [facility] BMI 2023-08-11 18:07:00 24.37 kg/m2 [facility] Heart rate 2023-07-17 01:37:00 102 /min [facility] Respiratory rate 2023-07-17 01:37:00 17 /min [facility] Body weight 2023-07-17 01:37:00 65.998 kg Univ [facility] BMI 2023-07-17 01:37:00 24.98 kg/m2 [facility] Oxygen saturation in Arterial blood by Pulse oximetry 2023-07-17 01:37:00 98 /min [facility] Systolic blood pressure 2023-07-15 09:08:00 152 mm[Hg] [facility] Diastolic blood pressure 2023-07-15 09:08:00 106 mm[Hg] [facility] Heart rate 2023-07-15 09:08:00 62 /min [facility] Body temperature 2023-07-15 09:08:00 37.22 Annia [facility] Respiratory rate 2023-07-15 09:08:00 18 /min [facility] Body height 2023-07-15 09:08:00 162.6 cm Univ [facility] Body weight 2023-07-15 09:08:00 67.132 kg [facility] BMI 2023-07-15 09:08:00 25.40 kg/m2 [facility] Oxygen saturation in Arterial blood by Pulse oximetry 2023-07-15 09:08:00 100 /min [facility] Systolic blood pressure 2023-02-15 22:41:00 109 mm[Hg] [facility] Diastolic blood pressure 2023-02-15 22:41:00 72 mm[Hg] [facility] Heart rate 2023-02-15 22:41:00 87 /min [facility] Body temperature 2023-02-15 22:41:00 36.83 Annia [facility] Respiratory rate 2023-02-15 22:41:00 18 /min [facility] Body height 2023-02-15 22:41:00 162.6 cm [facility] 2023-02-15 22:41:00 68.947 kg [facility] BMI 2023-02-15 22:41:00 26.09 kg/m2 [facility] Oxygen saturation in Arterial blood by Pulse oximetry 2023-02-15 22:41:00 96 /min [facility] Systolic blood pressure 2023-02-07 14:41:00 124 mm[Hg] [facility] Diastolic blood pressure 2023-02-07 14:41:00 83 mm[Hg] [facility] Heart rate 2023-02-07 14:41:00 94 /min [facility] Body temperature 2023-02-07 14:41:00 36.67 Annia [facility] Body height 2023-02-07 14:41:00 162.6 cm [facility] Body weight 2023-02-07 14:41:00 69.718 kg [facility] BMI 2023-02-07 14:41:00 26.38 kg/m2 [facility] Oxygen saturation in Arterial blood by Pulse oximetry 2023-02-07 14:41:00 98 /min [facility] Systolic blood pressure 2023-02-03 14:53:00 125 mm[Hg] [facility] Diastolic blood pressure 2023-02-03 14:53:00 68 mm[Hg] [facility] Heart rate 2023-02-03 14:53:00 79 /min [facility] Body temperature 2023-02-03 14:53:00 36.33 Annia [facility] Body height 2023-02-03 14:53:00 162.6 cm Univ [facility] Body weight 2023-02-03 14:53:00 68.629 kg [facility] BMI 2023-02-03 14:53:00 25.97 kg/m2 [facility] Oxygen saturation in Arterial blood by Pulse oximetry 2023-02-03 14:53:00 100 /min [facility] Systolic blood pressure 2023-01-03 21:59:00 133 mm[Hg] [facility] Diastolic blood pressure 2023-01-03 21:59:00 87 mm[Hg] [facility] Heart rate 2023-01-03 21:59:00 109 /min [facility] Body temperature 2023-01-03 21:59:00 36.89 Annia [facility] Respiratory rate 2023-01-03 21:59:00 17 /min [facility] Body weight 2023-01-03 21:59:00 70.308 kg Univ [facility] BMI 2023-01-03 21:59:00 26.61 kg/m2 Univ [facility] Oxygen saturation in Arterial blood by Pulse oximetry 2023-01-03 21:59:00 98 /min [facility] Systolic blood pressure 2022-12-06 15:29:00 132 mm[Hg] [facility] Diastolic blood pressure 2022-12-06 15:29:00 85 mm[Hg] [facility] Body temperature 2022-12-06 15:29:00 37.11 Annia [facility] Body height 2022-12-06 15:29:00 162.6 cm [facility] Body weight 2022-12-06 15:29:00 68.947 kg [facility] BMI 2022-12-06 15:29:00 26.09 kg/m2 [facility] Oxygen saturation in Arterial blood by Pulse oximetry 2022-12-06 15:29:00 99 /min [facility] Systolic blood pressure 2022-11-20 21:39:00 106 mm[Hg] [facility] Diastolic blood pressure 2022-11-20 21:39:00 63 mm[Hg] [facility] Heart rate 2022-11-20 21:39:00 118 /min [facility] Body temperature 2022-11-20 21:39:00 36.72 Annia [facility] Body height 2022-11-20 21:39:00 162.6 cm Univ [facility] Body weight 2022-11-20 21:39:00 68.04 kg Univ [facility] BMI 2022-11-20 21:39:00 25.75 kg/m2 [facility] Oxygen saturation in Arterial blood by Pulse oximetry 2022-11-20 21:39:00 99 /min [facility] Systolic blood pressure 2022-09-25 17:10:00 120 mm[Hg] [facility] Diastolic blood pressure 2022-09-25 17:10:00 80 mm[Hg] [facility] Heart rate 2022-09-25 17:10:00 92 /min [facility] Body height 2022-09-25 17:10:00 162.6 cm [facility] Body weight 2022-09-25 17:10:00 64.864 kg [facility] BMI 2022-09-25 17:10:00 24.55 kg/m2 [facility] Systolic blood pressure 2022-08-08 02:23:00 122 mm[Hg] [facility] Diastolic blood pressure 2022-08-08 02:23:00 78 mm[Hg] [facility] Heart rate 2022-08-08 02:23:00 76 /min [facility] Body temperature 2022-08-08 02:23:00 36.67 Annia [facility] Respiratory rate 2022-08-08 02:23:00 19 /min [facility] Oxygen saturation in Arterial blood by Pulse oximetry 2022-08-08 02:23:00 96 /min [facility] Body height 2022-08-07 20:26:00 162.6 cm [facility] Body weight 2022-08-07 20:26:00 64.1 kg [facility] BMI 2022-08-07 20:26:00 24.26 kg/m2 [facility] Systolic blood pressure 2022-07-09 14:25:00 139 mm[Hg] [facility] Diastolic blood pressure 2022-07-09 14:25:00 94 mm[Hg] [facility] Heart rate 2022-07-09 14:25:00 88 /min [facility] Body height 2022-07-09 14:25:00 162.6 cm [facility] Body weight 2022-07-09 14:25:00 65.318 kg [facility] BMI 2022-07-09 14:25:00 24.72 kg/m2 [facility] Systolic blood pressure 2022-06-04 18:16:00 115 mm[Hg] [facility] Diastolic blood pressure 2022-06-04 18:16:00 74 mm[Hg] [facility] Body height 2022-06-04 18:16:00 162.6 cm [facility] Body weight 2022-06-04 18:16:00 64.864 kg [facility] BMI 2022-06-04 18:16:00 24.55 kg/m2 [facility] BP Systolic 2022-11-12 09:56:00 119 mm[Hg] [...] / Time Performed Performing Clinic[facility] n Source [facility] FINANCIAL POLICY 2024-01-04 20:47:36 Doctor Unassigned, [place] [facility] POCT MOLECULAR FLU 2023-10-16 22:59:00 Gaby Palma [facility] POCT MOLECULAR STREP 2023-10-16 22:51:00 Annamaria Palma [facility] POCT SARS-COV-2 ANTIGEN (BINAX NOW) 2023-10-16 00:00:00 Gaby Palma [facility] ASSIGNMENT OF BENEFITS 2023-08-11 18:02:12 Docto r Unassigned, [place] [facility] NOTICE OF PRIVACY PRACTICES 2023-07-15 09:02:01 Doctor Unassigned, [place] [facility] CONSENT/REFUSAL FOR DIAGNOSIS AND TREATMENT 2023-07-15 09:01:33 Doctor Unassigned, [place] [facility] POCT SARS-COV-2 ANTIGEN (BINAX NOW) 2023-02-07 15:13:00 Vivienne Holt [facility] POCT MOLECULAR FLU 2023-02-07 15:06:00 Unknown, Attend ing [facility] POCT MOLECULAR STREP 2023-02-07 14:52:00 Unknown, [facility] PATIENT FINANCIAL POLICY 2023-01-03 21:48:53 Doctor Unassigned, [place] [facility] EXTERNAL PROVIDER RECORDS 2022-12-24 06:01:00 Doctor Unassigned, [place] [facility] CREATINE KINASE 2022-08-07 21:44:00 Mila Keys [facility] LIPASE 2022-08-07 21:44:00 Mila Keys [facility] TEST, SERUM 2022-08-07 21:44:00 Anaid Keys [facility] TROPONIN I 2022-08-07 21:44:00 Mlia Keys [facility] HEPATIC FUNCTION PANEL (32354) (ALB,T.PRO,BILI T,BU/BC,ALT,AST,ALK PHOS) 2022-08-07 21:44:00 Mila Keys [facility] BASIC METABOLIC PANEL (NA, K, CL, CO2, GLUCOSE, BUN, CREATININE, CA) 2022-08-07 21:44:00 Jamar Mila [facility] SALICYLATE 2022-08-07 21:44:00 Mila Keys [facility] ETHANOL 2022-08-07 21:44:00 Mila Keys [facility] CBC WITH DIFF 2022-08-07 21:44[facility]00 [facility] Planned Activity Planned Date Details Comments Source Goal Plan of Care Note [code = 70637-5] Goal Plan of Care Note [code = 68799-0] Goal Plan of Care Note [code = 77912-3] Goal Plan of Care Note [code = 29579-7] Goal Plan of Care Note [code = 87381-1] Goal Plan of Care Note [code = 01525-0] Goal Plan of Care Note [code = 30583-1] Goal Plan of Care Note [code = 41729-3] Goal Plan of Care Note [code = 60621-3] Goal Plan of Care Note [code = 04416-9] Goal Plan of Care Note [code = 11255-0] Goal Plan of Care Note [code = 42563-4] Goal Plan of Care Note [code = 28895-7] Goal Plan of Care Note [code = 92522-0] Goal Plan of Care Note [code = 73172-1] Goal Plan of Care Note [code = 92124-4] Goal Plan of Care Note [code = 73174-5] Goal Plan of Care Note [code = 27738-9] Goal Plan of Care Note [code = 83594-7] Goal Plan of Care Note [code = 01545-7] Goal Plan of Care Note [code = 40094-3] Goal Plan of Care Note [code = 42169-5] Goal Plan of Care Note [code = 46509-9] Goal Plan of Care Note [code = 06643-7] Goal Plan of Care Note [code = 56601-9] Goal Plan of Care Note [code = 93806-6] Goal Plan of Care Note [code = 97676-9] Goal Plan of Care Note [code = 86672-2] Goal Plan of Care Note [code = 72781-7] Goal Plan of Care Note [code = 37464-3] Goal Plan of Care Note [code = 76564-1] Goal Plan of Care Note [code = 33629-1] Goal Plan of Care Note [code = 93065-4] Encounters Start Date/Time End Date/Time Encounter Type Admission Type Attending Clinicians Care Facility Care Department Encounter ID Source 2021-08-20 08:51:37 Emergency [facility] [id number] 2024-03-08 00:00:00 2024-03-08 11:42:52 [facility] [id number] 350.1.13.10 4.2.7.2.686 [id number] [facility] 2024-02-11 00:00:00 2024-02-11 00:00:00 Refill Laura Beltran [facility] 1.84.114 350.1.13.10 4.2.7.2.686 [id number] [facility] 2024-01-14 14:30:00 2024-01-14 14:30:00 Outpatient R ENEIDA CANNON [facility] [id number] [facility] 2024-01-07 15:15:00 2024-01-07 15:30:00 Office Visit Laura Beltran [facility] [id number] 350.1.13.10 4.2.7.2.686 [id number] [facility] 2024-01-07 15:15:00 2024-01-07 15:15:00 Outpatient R LAURA BELTRAN [facility] [id number] [facility] 2024-01-04 15:40:00 2024-01-04 16:00:00 Urgent Care Vivienne Holt Unknown, Attending [facility] 1.84.114 350.1.13.10 4.2.7.2.686 [id number] [facility] 2024-01-04 15:40:00 2024-01-04 15:40:00 Outpatient R VIVIENNE HOLT [facility] [id number] [facility] 2024-01-04 00:00:00 2024-01-04 00:00:00 Orders Only Doctor Unassigned, [place] [facility] 1.84114 350.1.13.10 4.2.7.2.686 [id number] [facility] 2024-01-01 00:00:00 2024-01-01 00:00:00 Refill Ruby Laura [facility] [place]?[facility] [id number] 350.1.13.10 4.2.7.2.686 [id number] [facility] 2023-12-29 00:00:00 2023-12-29 00:00:00 Letter (Out) [facility] 1.840.114 350.1.13.10 4.2.7.2.686 [id number] [facility] 2023-12-24 00:00:00 2023-12-24 00:00:00 [facility] 1..840.114 350.1.13.10 4.2.7.2.686 [id number] [facility] 2023-12-15 09:30:00 2023-12-15 09:30:00 Outpatient R LAURA BELTRAN [facility] [id number] [facility] 2023-12-11 00:00:00 2023-12-11 00:00:00 [facility] 1..840.114 350.1.13.10 4.2.7.2.686 [id number] [facility] 2023-12-11 00:00:00 2023-12-11 00:00:00 Telephone Ruby Laura [facility] [place]?[facility] 1..840.114 350.1.13.10 4.2.7.2.686 [id number] [facility] 2023-12-09 00:00:00 2023-12-09 00:00:00 [facility] [id number] 350.1.13.10 4.2.7.2.686 [id number] [facility] 2023-12-08 00:00:00 2023-12-08 00:00:00 Refill [facility] [facility] 1.2.840.114 350.1.13.10 4.2.7.2.686 [id number] 044 [id number] [facility] 2023-12-04 00:00:00 2023-12-04 00:00:00 Telephone Laura Beltran [facility] HI?[facility] 1.2.840.114 350.1.13.10 4.2.7.2.686 [id number] 044 [id number] [facility] 2023-11-27 00:00:00 2023-11-27 00:00:00 Telephone Laura Beltran [facility] HI?[facility] 1.2.840.114 350.1.13.10 4.2.7.2.686 [id number] 044 [id number] [facility] 2023-11-10 15:40:11 2023-11-10 15:40:11 Outpatient [facility] [id number] Ignacio Heredia 2023-11-08 00:00:00 2023-11-08 00:00:00 Telephone Laura Beltran [facility] HI?[facility] 1.2.840.114 350.1.13.10 4.2.7.2.686 [id number] 044 [id number] [facility] 2023-10-16 16:40:00 2023-10-16 17:06:52 Outpatient GABY GONZALEZ [facility]RISTINE [facility] [id number] [facility] 2023-10-16 16:40:00 2023-10-16 17:06:52 Office Visit Gaby Palma [facility] 1.2840.114 350.1.13.10 4.2.7.2.686 [id number] 044 [id number] [facility] 2023-10-08 00:00:00 2023-10-08 00:00:00 Telephone Laura Beltran [facility] 1.2.840.114 350.1.13.10 4.2.7.2.686 [id number] 044 [id number] [facility] 2023-10-06 00:00:00 2023-10-06 00:00:00 Refill Laura Beltran [facility] 1.2840.114 350.1.13.10 4.2.7.2.686 [id number] 044 [id number] [facility] 2023-10-06 00:00:00 2023-10-06 00:00:00 Telephone Laura Beltran [facility] 1.2840.114 350.1.13.10 4.2.7.2.686 [id number] 044 [id number] [facility] 2023-09-17 00:00:00 2023-09-17 00:00:00 Refill Laura Beltran [facility] 1.2840.114 350.1.13.10 4.2.7.2.686 [id number] 044 [id number] [facility] 2023-09-10 00:00:00 2023-09-10 00:00:00 Refill Laura Beltran [facility] HI[facility] 1.2840.114 350.1.13.10 4.2.7.2.686 [id number] 044 [id number] [facility] 2023-09-09 00:00:00 2023-09-09 00:00:00 Telephone Laura Beltran [facility] HI[facility] 1..840.114 350.1.13.10 4.2.7.2.686 [id number] 044 [id number] [facility] 2023-09-05 00:00:00 2023-09-05 00:00:00 Telephone Laura Beltran [facility] 1..840.114 350.1.13.10 4.2.7.2.686 [id number] 044 [id number] [facility] 2023-09-03 00:00:00 2023-09-03 00:00:00 [facility] 1.840.114 350.1.13.10 4.2.7.2.686 [id number] 044 [id number] [facility] 2023-08-11 13:00:00 2023-08-11 13:23:48 Outpatient R LAURA BELTRAN [facility] [id number] [facility] 2023-08-11 13:00:00 2023-08-11 13:23:48 [facility] 1..840.114 350.1.13.10 4.2.7.2.686 [id number] 044 [id number] [facility] 2023-08-11 00:00:00 2023-08-11 00:00:00 Orders Only Doctor Unassigned, [place] [facility] 1.84.114 350.1.13.10 4.2.7.2.686 [id number] [id number] [facility] 2023-08-05 00:00:00 2023-08-05 00:00:00 Refill Laura Beltran [facility] 1.840.114 350.1.13.10 4.2.7.2.686 [id number] 044 [id number] [facility] 2023-07-26 00:00:00 2023-07-26 00:00:00 Laura Perez [facility] 1.840.114 350.1.13.10 4.2.7.2.686 [id number] 044 [id number] [facility] 2023-07-24 10:45:00 2023-07-24 10:45:00 Outpatient MAIKEL HINDS [facility] [id number] [facility] 2023-07-16 20:20:00 2023-07-16 20:40:00 Urgent Care Vivienne Holt Unknown, Attending [facility] 1.840.114 350.1.13.10 4.2.7.2.686 [id number] [facility] 2023-07-16 20:20:00 2023-07-16 20:20:00 Outpatient R VIVIENNE HOLT [facility] [id number] [facility] 2023-07-15 04:10:00 2023-07-15 04:44:00 Emergency [facility] [id number] [facility] 2023-07-15 04:10:00 2023-07-15 04:44:00 Emergency Joshua Strongdorysfabián [facility] 1.84.114 350.1.13.10 4.2.7.2.686 [id number] 084 [id number] [facility] 2023-07-03 00:00:00 2023-07-03 00:00:00 Laura Perez [facility] 1.840.114 350.1.13.10 4.2.7.2.686 [id number] 044 [id number] [facility] 2023-07-03 00:00:00 2023-07-03 00:00:00 Laura Perez [facility] HI?[facility] 1.2840.114 350.1.13.10 4.2.7.2.686 [id number] 044 [id number] [facility] 2023-06-16 00:00:00 2023-06-16 00:00:00 Laura Cosby [facility] 1.2840.114 350.1.13.10 4.2.7.2.686 [id number] 044 [id number] [facility] 2023-06-09 00:00:00 2023-06-09 00:00:00 [facility] 1.2840.114 350.1.13.10 4.2.7.2.686 [id number] 044 [id number] [facility] 2023-06-06 00:00:00 2023-06-06 00:00:00 Ming Beltran [facility] HI?[facility] 1.2840.114 350.1.13.10 4.2.7.2.686 [id number] 044 [id number] [facility] 2023-06-04 10:00:00 2023-06-04 10:00:00 Outpatient LAURA AMADOR [facility] [id number] [facility] 2023-05-23 16:51:14 2023-05-23 23:59:00 Hospital Encounter Dorothea Feroz Greg [facility] 1.2840.114 350.1.13.10 4.2.7.2.686 [id number] [id number] [facility] 2023-05-23 16:50:23 2023-05-23 16:50:00 Outpatient R FEROZ BARAKAT [facility] [id number] [facility] 2023-05-23 16:30:00 2023-05-23 16:50:00 Hospital Encounter Feroz Barakat S [facility] 1.2.840.114 350.1.13.10 4.2.7.2.686 [id number] [id number] [facility] 2023-05-13 00:00:00 2023-05-13 00:00:00 Patient Secure Msg Doctor Unassigned, [place] [facility] 1..840.114 350.1.13.10 4.2.7.2.686 [id number] 044 [id number] [facility] 2023-05-10 00:00:00 2023-05-10 00:00:00 [facility] 1..840.114 350.1.13.10 4.2.7.2.686 [id number] 044 [id number] [facility] 2023-05-07 00:00:00 2023-05-07 00:00:00 Patient Secure Msg Doctor Unassigned, [place] [facility] 1.2.840.114 350.1.13.10 4.2.7.2.686 [id number] [facility] 2023-05-05 00:00:00 2023-05-05 00:00:00 Telephone [facility] 1.2.840.114 350.1.13.10 4.2.7.2.686 [id number] 044 [id number] [facility] 2023-05-02 00:00:00 2023-05-02 00:00:00 Outpatient FEROZ MACHADO [facility] [id number] [facility] 2023-04-25 00:00:00 2023-04-25 00:00:00 Outpatient [facility] [id number] [facility] 2023-04-08 00:00:00 2023-04-08 00:00:00 Refill Laura Beltran [facility] 1.2840.114 350.1.13.10 4.2.7.2.686 [id number] 044 [id number] [facility] 2023-04-03 00:00:00 2023-04-03 00:00:00 Refill Ruby [facility] HI?[facility] 1.2840.114 350.1.13.10 4.2.7.2.686 [id number] 044 [id number] [facility] 2023-03-10 00:00:00 2023-03-10 00:00:00 Telephone Laura Beltran [facility] HI?[facility] 1.2840.114 350.1.13.10 4.2.7.2.686 [id number] 044 [id number] [facility] 2023-03-08 00:00:00 2023-03-08 00:00:00 Refill Laura Beltran [facility] 1.2840.114 350.1.13.10 4.2.7.2.686 [id number] 044 [id number] [facility] 2023-03-07 00:00:00 2023-03-07 00:00:00 Refill Laura Beltran [facility] 1.2840.114 350.1.13.10 4.2.7.2.686 [id number] 044 [id number] [facility] 2023-03-07 00:00:00 2023-03-07 00:00:00 Telephone Laura Beltran [facility] 1.2.840.114 350.1.13.10 4.2.7.2.686 [id number] 044 [id number] [facility] 2023-02-17 00:00:00 2023-02-17 00:00:00 Telephone Laura Beltran [facility] 1..840.114 350.1.13.10 4.2.7.2.686 [id number] 044 [id number] [facility] 2023-02-15 17:30:00 2023-02-15 17:41:47 Outpatient R YESSENIA CALL [facility] [id number] [facility] 2023-02-15 17:30:00 2023-02-15 17:41:47 Nurse Visit Nurse, Jose [facility]ty [facility] Unknown, Attending Je [facility] 1.2.840.114 350.1.13.10 4.2.7.2.686 [id number] 370 [id number] [facility] 2023-02-15 17:20:00 2023-02-15 17:20:00 Outpatient R UNKNOWN, ATTENDING [facility] [id number] [facility] 2023-02-07 09:20:00 2023-02-07 09:40:00 Urgent Care Vivienne Holt Unknown, Attending [facility] 1.2.840.114 350.1.13.10 4.2.7.2.686 [id number] [facility] 2023-02-07 09:20:00 2023-02-07 09:20:00 Outpatient R UNKNOWN, ATTENDING VIVIENNE HOLT [facility] [id number] [facility] 2023-02-03 10:15:00 2023-02-03 10:30:00 Office Visit Laura Beltran [facility] 1.2.840.114 350.1.13.10 4.2.7.2.686 [id number] 044 [id number] [facility] 2023-02-03 10:15:00 2023-02-03 10:15:00 Outpatient R LAURA BELTRAN [facility] [id number] [facility] 2023-01-23 10:00:00 2023-01-23 10:00:00 Outpatient LAURA AMADOR [facility] [id number] [facility] 2023-01-06 00:00:00 2023-01-06 00:00:00 Refill Laura Beltran [facility] 1.2.840.114 350.1.13.10 4.2.7.2.686 [id number] 044 [id number] [facility] 2023-01-04 00:00:00 2023-01-04 00:00:00 Telephone Provider, Jose Petty Urgent Care [facility] 1.2.840.114 350.1.13.10 4.2.7.2.686 [id number] 370 [id number] [facility] 2023-01-03 16:40:00 2023-01-03 17:14:19 Outpatient R FLOR INFANTE [facility] [id number] [facility] 2023-01-03 16:40:00 2023-01-03 17:14:19 Urgent Care Flor Infante Unknown, Attending [facility] 1.2.840.114 350.1.13.10 4.2.7.2.686 [id number] 370 [id number] [facility] 2023-01-03 00:00:00 2023-01-03 00:00:00 Orders Only Doctor Unassigned, [place] [facility] 1.2840.114 350.1.13.10 4.2.7.2.686 [id number] [facility] 2023-01-03 00:00:00 2023-01-03 00:00:00 Letter (Out) NareshFlor [facility] 1.2840.114 350.1.13.10 4.2.7.2.686 [id number] 370 [id number] [facility] 2023-01-02 00:00:00 2023-01-02 00:00:00 Refill Laura Beltran [facility] 1.2.840.114 350.1.13.10 4.2.7.2.686 [id number] 044 [id number] [facility] 2022-12-28 00:00:00 2022-12-28 00:00:00 Refill Trena Wyatt [facility] 1.2840.114 350.1.13.10 4.2.7.2.686 [id number] 044 [id number] [facility] 2022-12-26 00:00:00 2022-12-26 00:00:00 Outpatient STU BORGES [facility] [id number] [facility] 2022-12-24 00:00:00 2022-12-24 00:00:00 Orders Only Doctor Unassigned, [place] [facility] 1.2840.114 350.1.13.10 4.2.7.2.686 [id number] [facility] 2022-12-06 09:30:00 2022-12-06 09:56:07 Outpatient R TRENA WYATT [facility] [id number] [facility] 2022-12-06 09:30:00 2022-12-06 09:56:07 Office Visit Trena Wyatt [facility] 1.2.840.114 350.1.13.10 4.2.7.2.686 [id number] [id number] [facility] 2022-12-06 07:00:00 2022-12-06 07:00:00 Outpatient R TRENA WYATT [facility] [id number] [facility] 2022-12-05 00:00:00 2022-12-05 00:00:00 Refill Laura Beltran [facility] 1..840.114 350.1.13.10 4.2.7.2.686 [id number] [id number] [facility] 2022-11-20 15:30:00 2022-11-20 16:22:49 Outpatient R FAUSTOVAUGHN Oh [facility] [id number] [facility] 2022-11-20 15:30:00 2022-11-20 16:22:49 Office Visit Faustoalthea Vaughn [facility] 1.2.840.114 350.1.13.10 4.2.7.2.686 [id number] 044 [id number] [facility] 2022-11-19 09:30:00 2022-11-19 09:30:00 Outpatient R ARNEL ALARCON [facility] [id number] [facility] 2022-11-14 11:59:29 2022-11-14 11:59:29 Outpatient [facility] [id number] Ignacio F Yan 2022-11-13 00:00:00 2022-11-13 00:00:00 Telephone Laura Beltran [facility] 1.2.840.114 350.1.13.10 4.2.7.2.686 [id number] 044 [id number] [facility] 2022-11-12 09:48:10 2022-11-12 09:48:10 Outpatient [facility] [id number] Ignacio Heredia 2022-11-12 00:00:00 2022-11-12 00:00:00 Outpatient Visit [id number] 2022-11-11 09:15:00 2022-11-11 09:15:00 Outpatient LAURA AMADOR [facility] [id number] [facility] 2022-10-30 00:00:00 2022-10-30 00:00:00 [facility] 1.2.840.114 350.1.13.10 4.2.7.2.686 [id number] [id number] [facility] 2022-10-10 00:00:00 2022-10-10 00:00:00 Telephone Ruby [facility] HI?[facility] 1.2.840.114 350.1.13.10 4.2.7.2.686 [id number] 044 [id number] [facility] 2022-10-07 00:00:00 2022-10-07 00:00:00 Telephone Laura Beltran [facility] 1.2.840.114 350.1.13.10 4.2.7.2.686 [id number] 044 [id number] [facility] 2022-09-25 11:00:00 2022-09-25 11:20:08 Outpatient LAURA AMADOR [facility] [id number] [facility] 2022-09-25 11:00:00 2022-09-25 11:20:08 Office Visit Ruby [facility] HI?[facility] 1.2.840.114 350.1.13.10 4.2.7.2.686 [id number] 044 [id number] [facility] 2022-09-03 00:00:00 2022-09-03 00:00:00 Refill Ruby [facility] 1.2.840.114 350.1.13.10 4.2.7.2.686 [id number] 044 [id number] [facility] 2022-08-09 00:00:00 2022-08-09 00:00:00 Telephone Ruby [facility] 1.2840.114 350.1.13.10 4.2.7.2.686 [id number] 044 [id number] [facility] 2022-08-08 00:00:00 2022-08-08 00:00:00 Telephone Ruby [facility] 1.2840.114 350.1.13.10 4.2.7.2.686 [id number] 044 [id number] [facility] 2022-08-07 15:19:00 2022-08-07 21:35:00 Emergency X [facility] [id number] [facility] 2022-08-07 15:19:00 2022-08-07 21:35:00 Emergency [facility] 1.2840.114 350.1.13.10 4.2.7.2.686 [id number] [id number] [facility] 2022-07-10 00:00:00 2022-07-10 00:00:00 Telephone Ruby [facility] 1.2.840.114 350.1.13.10 4.2.7.2.686 [id number] [id number] [facility] 2022-07-09 09:15:00 2022-07-09 09:44:28 Outpatient R LAURA BELTRAN [facility] [id number] [facility] 2022-07-09 09:15:00 2022-07-09 09:30:00 Office Visit Laura Beltran [facility] 1.2.840.114 350.1.13.10 4.2.7.2.686 [id number] 044 [id number] [facility] 2022-07-09 00:00:00 2022-07-09 00:00:00 Telephone Laura Beltran [facility] 1..840.114 350.1.13.10 4.2.7.2.686 [id number] 044 [id number] [facility] 2022-06-04 13:15:00 2022-06-04 13:32:49 Outpatient R LAURA BELTRAN [facility] [id number] [facility] 2022-06-04 13:15:00 2022-06-04 13:30:00 Office Visit Laura Beltran [facility] 1..840.114 350.1.13.10 4.2.7.2.686 [id number] 044 [id number] [facility] 2022-06-04 13:15:00 2022-06-04 13:15:00 Outpatient R LAURA BELTRAN [facility] [id number] [facility] 2022-04-28 11:37:00 2022-04-28 12:24:00 Emergency X PED[facility] [id number] [facility] 2022-04-28 11:37:00 2022-04-28 12:24:00 Emergency Mundo Pedroza [facility] 1..840.114 350.1.13.10 4.2.7.2.686 [id number] [id number] [facility] 2022-04-28 00:00:00 2022-04-28 00:00:00 Letter (Out) Lora Gould [facility] 1..114 350.1.13.10 4.2.7.2.686 [id number] [facility] 2021-07-18 14:56:51 2021-07-18 15:32:09 Office Visit Laura Beltran [facility] 1.84.114 350.1.13.10 4.2.7.2.686 [id number] 044 [id number] [facility] 2021-07-18 15:00:00 2021-07-18 15:00:00 Outpatient R [facility] [id number] [facility] 2021-05-30 00:00:00 2021-05-30 00:00:00 Orders Only Doctor Unassigned, [place] [facility] 1..114 350.1.13.10 4.2.7.2.686 [id number] [facility] 2021-05-25 00:00:00 2021-05-25 00:00:00 Telephone Laura Beltran [facility] .840.114 350.1.13.10 4.2.7.2.686 [id number] 044 [id number] 2021-05-25 00:00:00 2021-05-25 00:00:00 Telephone Laura Beltran [facility] .84.114 350.1.13.10 4.2.7.2.686 [id number] 044 [id number] [facility] 2021-05-21 00:00:00 2021-05-21 00:00:00 Refill Laura Beltran [facility] 1.2840.114 350.1.13.10 4.2.7.2.686 [id number] 044 [id number] 2021-05-21 00:00:00 2021-05-21 00:00:00 Ming Juan PabloartieLaura Gordonmik [facility] 1.2840.114 350.1.13.10 4.2.7.2.686 [id number] 044 [id number] [facility] 2021-05-05 11:42:00 2021-05-05 13:42:00 [facility] 1.2.840.114 350.1.13.10 4.2.7.2.686 [id number] 084 [id number] 2021-05-05 11:42:00 2021-05-05 13:42:00 Emergency Peng [facility] 1.2.840.114 350.1.13.10 4.2.7.2.686 [id number] 084 [id number] [facility] 2021-05-04 00:00:00 2021-05-04 00:00:00 Telephone Nayla Sanders [facility] 1.2840.114 350.1.13.10 4.2.7.2.686 [id number] 044 [id number] 2021-05-04 00:00:00 2021-05-04 00:00:00 Telephone Nayla Sanders [facility] 1.2840.114 350.1.13.10 4.2.7.2.686 [id number] [facility] 2021-05-03 17:09:02 2021-05-03 17:56:38 Urgent Care Nayla Sanders [facility] 1.2840.114 350.1.13.10 4.2.7.2.686 [id number] 2021-05-03 17:09:02 2021-05-03 17:56:38 Urgent Care Nayla Sanders [facility] 1.114 350.1.13.10 4.2.7.2.686 [id number] [facility] 2021-05-03 17:20:00 2021-05-03 17:20:00 Outpatient R [facility] [id number] [facility] 2021-04-25 10:32:12 2021-04-25 10:47:12 Office Visit Laura Beltran [facility] 1.114 350.1.13.10 4.2.7.2.686 [id number] 2021-04-25 10:32:12 2021-04-25 10:47:12 Office Visit Laura Beltran [facility] 1.114 350.1.13.10 4.2.7.2.686 [id number] [facility] 2021-04-25 10:30:00 2021-04-25 10:30:00 Outpatient R LAURA BELTRAN [facility] [id number] [facility] 2021-04-25 00:00:00 2021-04-25 00:00:00 Orders Only Doctor Unassigned, [place] [facility] 1.114 350.1.13.10 4.2.7.2.686 [id number] 2021-04-25 00:00:00 2021-04-25 00:00:00 Orders Only Doctor Unassigned, [place] [facility] 1..114 350.1.13.10 4.2.7.2.686 [id number] [facility] 2021-04-19 00:00:00 2021-04-19 00:00:00 Orders Only Doctor Unassigned, [place] [facility] 1..114 350.1.13.10 4.2.7.2.686 [id number] [facility] 2021-04-11 15:30:00 2021-04-11 15:30:00 Outpatient JORDAN COSTA [facility] [id number] [facility] 2021-03-28 09:16:27 2021-03-28 09:46:27 Office Visit Laura Beltran [facility] 1.840.114 350.1.13.10 4.2.7.2.686 [id number] [facility] 2021-03-28 09:30:00 2021-03-28 09:30:00 Outpatient LAURA AMADOR [facility] [id number] [facility] 2021-02-20 00:00:00 2021-02-20 00:00:00 Patient Secure Msg Doctor Unassigned, [place] [facility] 1.840.114 350.1.13.10 4.2.7.2.686 [id number] [facility] 2020-11-25 22:09:00 2020-11-26 00:35:00 Emergency Jhoana Arnold [facility] 1.84.114 350.1.13.10 4.2.7.2.686 [id number] [facility] 2020-11-25 22:09:00 2020-11-26 00:35:00 Emergency X JHOANA ARNOLD [facility] [id number] [facility] 2020-10-17 11:03:50 2020-10-17 11:18:50 Manager Licensing Visit Podevorah, [facility] Cristal Se[facility] 1.840.114 350.1.13.10 4.2.7.2.686 [id number] [facility] 2020-10-17 11:00:00 2020-10-17 11:00:00 Outpatient R CRISTAL SEAMAN [facility] [id number] [facility] 2020-10-17 00:00:00 2020-10-17 00:00:00 Orders Only Doctor Unassigned, [place] [facility] 1.840.114 350.1.13.10 4.2.7.2.686 [id number] [facility] 2020-10-05 09:47:00 2020-10-05 15:13:00 Emergency X KELSI CORBETT [facility] [id number] [facility] 2020-10-05 09:47:00 2020-10-05 15:13:00 Emergency Kelsi Corbett [facility] 1..840.114 350.1.13.10 4.2.7.2.686 [id number] [facility] Results Test Description Test Time Test Comments Results Result Co mments Source HERPES SIMPLEX AB, [id number] 13:50:57* Test Item Value Reference Range Interpretation Comme nts HERPES SIMPLEX AB, IgM (test code = 87327) 0.84 INDEX SEE BELOW INTERPRETATION U NITS RANGE ----- ----- NEGATIVE INDEX <=0.89 EQUIVOCAL INDEX 0.90-1.09 POSITIVE INDEX >=1.10 GONORRHEA, NAAT, [id number] 12:26:16* Test Item Value Reference Range Interpretation Comme nts GONORRHEA, NAAT, URINE (test code = 06419) NEGATIVE NEGATIVE Testing is perfo rmed with [employer] 6800/8800 systems usingreal-time polymerase chain reaction (PCR) method. A negative result does not exclude low level infection, specimensampling error, or collection error. CHLAMYDIA, NAAT, [id number] 12:26:16* Test Item Value Reference Range Interpretation Comme nts CHLAMYDIA, NAAT, URINE (test code = 74647) NEGATIVE NEGATIVE Testing is perfo rmed with Pradeep VLADISLAV 6800/8800 systems usingreal-time polymerase chain reaction (PCR) method. A negative result does not exclude low level infection, specimensampling error, or collection error. HEPATITIS PANEL, [id number] 04:35:18* Test Item Value Reference Range Interpretation Comme nts HEPATITIS A IgM (test code = 81104) NON-REACTIVE NON-REACTIVE HEPATITIS B CORE IgM (test code = 4644) NON-REACTIVE NON-REACTIVE HEPATITIS B SURF AG (test code = 2739) NON-REACTIVE NON-REACTIVE HEPATITIS C ANTIBODY (test code = 4675) NON-REACTIVE NON-REACTIVE INTERPRETATION HEPATITIS A: (test code = 2552) (NOTE) Hepatitis A sero logy shows no evidence of acute hepatitis A. INTERPRETATION HEPATITIS B: (test code = 11245) (NOTE) Hepatitis B sero logy shows no evidence of acute hepatitis B andno indication of exposure to hepatitis B virus in the previous onur eight months. INTERPRETATION HEPATITIS C: (test code = 83921) (NOTE) Hepatitis C sero logy shows no evidence of exposure to hepatitisC virus at this time. It can take up to 12 months after exposure tothe hepatitis C virus for antibodies to become detectable in the blood in certain patients. UNLESS OTHERWISE INDICATED, ALL TESTING PERFORMED AT [facility] [address] [place] [address] DOOR HANGER: GABY MALDONADO M.D. CLIA NUMBER [id number] [facility] [place]. [id number] HIV 1/2 4TH GEN, RFLX [id number] 04:35:18* Test Item Value Reference Range Interpretation Comme [facility] HIV 1/2 4TH GEN, RFLX CONF ( test code = 3514) NON-REACTIVE NON-REACTIVE HERPES SIMPLEX 1/2 AB, IgG [id number] 04:35:18* Test Item Value Reference Range Interpretation Comme [facility] HERPES SIMPLEX 1 AB, IgG (test code = 05636) 11.300 INDEX SEE BELOW H INTERPRETATION U NITS RANGE ----- ----- NON-REACTIVE INDEX <1.000 REACTIVE INDEX >=1.000 HERPES SIMPLEX 2 AB, IgG (test code = 28522) 0.072 INDEX SEE BELOW INTERPRETATION U NITS RANGE ----- ----- NON-REACTIVE INDEX <1.000 REACTIVE INDEX >=1.000 RPR REFLEX TO T. PALLIDUM - [id number] 03:16:34* Test Item Value Reference Range Interpretation Comme nts RPR (test code = 00649) NON-REACTIVE NON-REACTIVE RPR TITER (test code = 3500) NOT INDIC. TITER NOT INDIC. POCT Molecular [id number] 23:10:47* Test Item Value Reference Range Interpretation Comme nts POCT Molecular FluA (test co de = 00224-3) Negative Negative POCT Molecular FluB (test co de = 84074-1) Negative Negative Lab Interpretation (test cod e = 32807-7) Normal [facility] Molecular [id number] 23:10:47* Test Item Value Reference Range Interpretation Comme nts POCT Molecular FluA (test co de = 94316-2) Negative Negative POCT Molecular FluB (test co de = 69347-1) Negative Negative Lab Interpretation (test cod e = 87307-7) Normal [facility] SARS-COV-2 ANTIGEN (BINAX NOW)2023-10-16 23:05:00* Test Item Value Reference Range Interpretation Comme nts POCT SARS-COV-2 ANTIGEN (gladys t code = 64092-8) Positive Not Detected A On board controls acceptable with C Line (test code = 3574) Yes Lab Interpretation (test cod e = 15393-9) Abnormal [facility] SARS-COV-2 ANTIGEN (BINAX NOW)2023-10-16 23:05:00* Test Item Value Reference Range Interpretation Comme nts POCT SARS-COV-2 ANTIGEN (gladys t code = 76490-8) Positive Not Detected A On board controls acceptable with C Line (test code = 3574) Yes Lab Interpretation (test cod e = 87497-8) Abnormal [facility] MOLECULAR [id number] 22:59:34* Test Item Value Reference Range Interpretation Comme nts POCT Molecular Strep (test c ode = 77214-8) Negative Negative Lab Interpretation (test cod e = 58802-1) Normal [facility] MOLECULAR [id number] 22:59:34* Test Item Value Reference Range Interpretation Comme nts POCT Molecular Strep (test c ode = 70263-9) Negative Negative Lab Interpretation (test cod e = 22032-2) Normal [facility] SARS-COV-2 ANTIGEN (BINAX NOW)2023-02-07 15:14:00* Test Item Value Reference Range Interpretation Comme nts POCT SARS-COV-2 ANTIGEN (test code = 50434-7) Not Detected Not Detected On board controls acceptable with C Line (test code = 3574) Yes GALLO (test code = GALLO) accurate developme nt and interpretation of all internal controls Lab Interpretation (test code = 05205-0) Normal [facility] MOLECULAR [id number] 15:10:42* Test Item Value Reference Range Interpretation Comme nts POCT Molecular FluA (test co de = 75143-0) Positive Negative A Lab Interpretation (test cod e = 08145-2) Abnormal [facility] MOLECULAR [id number] 14:59:48* Test Item Value Reference Range Interpretation Comme nts POCT Molecular Strep (test c ode = 17816-2) Negative Negative Lab Interpretation (test cod e = 14025-6) [facility], [id number] 22:34:41* Test Item Value Reference Range Interpretation Comme nts PREG SERUM (test code = 7653592579) Negative GALLO (test code = GALLO) Less than 10 IU/L. ?If low titer or ectopic is suspected, resubmit specimen in 48-72 hours. [facility] CenterTROPONIN [id number] 22:33:51* Test Item Value Reference Range Interpretation Comments TROPONIN I (test code = 5679235859) 0.002 ng/mL See_Comment [Automated message] The system [...] of biotin. Lab Interpretation (test code = 24572-7) Normal [facility] CenterSALICYLATE2022-10-19 22:27:20 SALICYLATE<10mg/L1 5:27 PM [facility] SERVICESHOLLY[facility] VAN NUYSTherapeutic Range: ? Analgesic and Antipyretic Use ? 20-100 mg/L ? ? Anti-Inflammatory Use ? 100-250 mg/L Toxic Range: ? Greater than 300 mg/LUnSurgery Specialty Hospit[facility] of [facility] [id number] 22:27:15ALCOHOL<10mg/dL08/07/2022 5:27 PM [facility] SERVICESHOLLYWOOD [facility] OF VAN NUYSToxic Greater than or equal to 80 mg/dL. NOTE: Whole blood values are approximately 10% to 15% lower than serum and plasma.[facility] CenterACETAMINOPHEN2022-10-19 22:27:10* Test Item Value Reference Range Interpretation Comme nts ACETAMINOP (test code = 0368671244) 10-30 L GALLO (test code = GALLO) Toxic: Greater sapphire n 200 ug/mL @ 4 hour post ingestion or greater than 50 ug/mL @ 12 hour post ingestion Lab Interpretation (test code = 51453-6) Abnormal [facility] CenterBASIC METABOLIC PANEL (NA, K, CL, CO2, GLUCOSE, BUN, CREATININE, CA)2022-08-07 22:23:27* Test Item Value Reference Range Interpretation Comme nts NA (test code = 7937047878) 138 mmol/L 135-145 K (test code = 9519551621) 3.9 mmol/L 3.5-5 CL (test code = 3378505499) 102 mmol/L 98-108 CO2 TOTAL (test code = 9100024158) 27 mmol/L 23-31 AGAP (test code = 5105695825) 2-16 BUN (test code = 1457914291) 16 mg/dL 7-23 GLUCOSE (test code = 7420142920) 87 mg/dL 70-110 CREATININE (test code = 1135857645) 0.69 mg/dL 0.5-1.04 CALCIUM (test code = 7071481430) 9.7 mg/dL 8.6-10.6 eGFR (test code = 3485850604) mL/min/1.73m2 GALLO (test code = GALLO) Association [...] or urine or abnormalities in imaging tests). [facility] CenterCREATINE [id number] 22:23:27* Test Item Value Reference Range Interpretation Comme nts CK (test code = 0406572187) 45 U/L 33-194 Lab Interpretation (test cod e = 79887-7) Normal [facility] CenterHEPATIC FUNCTION PANEL (73788) (ALB,T.PRO,BILI T,BU/BC,ALT,AST,ALK PHOS)2022-08-07 22:23:27* Test Item Value Reference Range Interpretation Comme nts TOTAL BILI (test code = 7450984672) 0.7 mg/dL 0.1-1.1 BILI UNCON (test code = 9698153993) 0.3 mg/dL 0.1-1.1 BILI CONJ (test code = 0865771020) 0.0 mg/dL 0-0.3 T PROTEIN (test code = 8364236425) 7.4 g/dL 6.3-8.2 ALBUMIN (test code = 0303535660) 4.4 g/dL 3.5-5 ALK PHOS (test code = 7657447816) 80 U/L 34-122 ALTv (test code = 1742-6) 15 U/L 5-35 AST(SGOT) (test code = 0065765979) 15 U/L 13-40 Lab Interpretation (test cod e = 76511-5) Normal [facility] CenterLIPASE2022-10-19 22:23:27* Test Item Value Reference Range Interpretation Comme nts LIPASE (test code = 3858396780) 51 U/L 0-220 Lab Interpretation (test cod e = 17031-0) Normal [facility] CenterCB WITH [id number] 22:06:06* Test Item Value Reference Range Interpretation Comme nts WBC (test code = 6690-2) See_Comment H [Automated [employer]] The system which generated this result [...] g/dL 31.6-35.1 H RDW-SD (test code = 02758-8) 40.6 fL 39-49.9 RDW-CV (test code = 788-0) 13.1 % 12-15.5 PLT (test code = 777-3) See_Comment H [Automated messa ge] The system which generated this result transmitted reference range: 166 - 358 10*3/?L. The reference range was not used to interpret this result as normal/abnormal. MPV (test code = 55295-7) 10.1 fL 9.5-12.9 NRBC/100 WBC (test code = 1570554166) See_Comment [Automated [employer]] The system which generated this result transmitted reference range: 0.0 - 10.0 /100 WBCs. The reference range was not used to interpret this result as normal/abnormal. NRBC x10^3 (test code = 0625514508) See_Comment [Automated messa ge] The system which generated this result transmitted reference range: 10*3/?L. The reference range was not used to interpret this result as normal/abnormal. GRAN MAT (NEUT) % (test code = 770-8) 62.7 % IMM GRAN % (test code = 9368377203) 0.40 % LYMPH % (test code = 736-9) 25.7 % MONO % (test code = 5905-5) 7.8 % EOS % (test code = 713-8) 2.8 % BASO % (test code = 706-2) 0.6 % GRAN MAT x10^3(ANC) (test code = 9561843742) 8.40 10*3/uL 1.88-7.09 H IMM GRAN x10^3 (test code = 9346182741) 0.06 10*3/uL 0-0.06 LYMPH x10^3 (test code = 731-0) 3.44 10*3/uL 1.32-3.29 H MONO x10^3 (test code = 742-7) 1.04 10*3/uL 0.33-0.92 H EOS x10^3 (test code = 711-2) 0.38 10*3/uL 0.03-0.39 BASO x10^3 (test code = 704-7) 0.08 10*3/uL 0.01-0.07 H Lab Interpretation (test code = 14993-5) [facility]normal [facility] CenterSARS-CoV-2 (COVID-19) by RT-PCR (HIGH RISK) 2021-06-29 00:00:00* Test Item Value Reference Range Interpretation Comme nts SARS-CoV-2 INTERPRETATION (t est code = 12355) NEGATIVE SOURCE (test code = 91542) NOT SPECIFIED SARS-CoV-2 (COVID-19) by RT-PCR (HIGH RISK)2021-06-29 00:00:00* Test Item Value Reference Range Interpretation Comme nts SARS-CoV-2 INTERPRETATION (t est code = 17977) NEGATIVE SOURCE (test code = 91727) NOT SPECIFIED [id number] 00:00:00* Test Item Value Reference Range Interpretation Comme nts LIPASE (test code = 2058) 20 U/L [id number] 00:00:00* Test Item Value Reference Range Interpretation Comme nts LIPASE (test code = 2058) 20 U/L [id number] 00:00:00* Test Item Value Reference Range Interpretation Comme nts LIPASE (test code = 8) 20 U/L COMPREHENSIVE METABOLIC [id number] 00:00:00* Test Item Value Reference Range Interpretation Comme nts GLUCOSE (test code = 2217) 92 MG/DL BUN (test code = 2208) 11 MG/DL CREATININE (test code = 2214) 0.80 MG/DL eGFR AMER. (test cod e = 72288) 108 ML/MIN/1.73 eGFR NON- AMER. (test code = 84991) 94 ML/MIN/1.73 CALC BUN/CREAT (test code = [...] code = 2219) 11 U/L COMPREHENSIVE METABOLIC [id number] 00:00:00* Test Item Value Reference Range Interpretation Comme nts GLUCOSE (test code = 2217) 92 MG/DL BUN (test code = 2208) 11 MG/DL CREATININE (test code = 2214) 0.80 MG/DL eGFR AMER. (test cod e = 81633) 108 ML/MIN/1.73 eGFR NON- AMER. (test code = 98580) 94 ML/MIN/1.73 CALC BUN/CREAT (test code = [...] ALT (test code = 2219) 11 U/L [id number] 00:00:00* Test Item Value Reference Range Interpretation Comme nts AMYLASE (test code = 2205) 52 U/L [id number] 00:00:00* Test Item Value Reference Range Interpretation Comme nts AMYLASE (test code = 2205) 52 U/L CULTURE, URINE [ADDED]2021-01-20 00:00:00* Test Item Value Reference Range Interpretation Comme nts CULTURE, URINE (test code = 03676) SPECIMEN NUMBER: [id number] CULTURE, URINE [ADDED]2021-01-20 00:00:00* Test Item Value Reference Range Interpretation Comme nts CULTURE, URINE (test code = 48327) SPECIMEN NUMBER: [id number] ACUTE HEPATITIS [id number] 00:00:00* Test Item Value Reference Range Interpretation Comme nts HEPATITIS A IgM (test code = 25651) NON-REACTIVE HEPATITIS B CORE IgM (test c ode = 4644) NON-REACTIVE HEPATITIS B SURF AG (test co de = 2739) NON-REACTIVE HEPATITIS C ANTIBODY (test c ode = 4675) NON-REACTIVE INTERPRETATION HEPATITIS A: (test code = 2552) (NOTE) INTERPRETATION HEPATITIS B: (test code = 58771) (NOTE) INTERPRETATION HEPATITIS C: (test code = 90116) (NOTE) CHLAMYDIA, AMPLIFIED, [id number] 00:00:00* Test Item Value Reference Range Interpretation Comme nts CHLAMYDIA, NAAT (test code = 32463) NEGATIVE CHLAMYDIA, AMPLIFIED, [id number] 00:00:00* Test Item Value Reference Range Interpretation Comme nts CHLAMYDIA, NAAT (test code = 30097) NEGATIVE GC, AMPLIFIED, [id number] 00:00:00* Test Item Value Reference Range Interpretation Comme nts GONORRHEA, NAAT (test code = 60873) NEGATIVE GC, AMPLIFIED, [id number] 00:00:00* Test Item Value Reference Range Interpretation Comme nts GONORRHEA, NAAT (test code = 36062) NEGATIVE [id number] 00:00:00* Test Item Value Reference Range Interpretation Comme nts RPR RESULT (test code = 3501) NON-REACTIVE RPR TITER (test code = 3500) NOT INDIC. TITER [id number] 00:00:00* Test Item Value Reference Range Interpretation Comme nts RPR RESULT (test code = 3501) NON-REACTIVE RPR TITER (test code = 3500) NOT INDIC. TITER [id number] 00:00:00* Test Item Value Reference Range Interpretation Comme nts RPR RESULT (test code = 3501) NON-REACTIVE RPR TITER (test code = 3500) NOT INDIC. TITER VAGINAL PATHOGENS DNA [id number] 00:00:00* Test Item Value Reference Range Interpretation Comme nts CONRAD SPECIES (test code = 16781) NEGATIVE G. VAGINALIS (test code = 94522) POSITIVE T. VAGINALIS (test code = 94928) NEGATIVE VAGINAL PATHOGENS DNA [id number] 00:00:00* Test Item Value Reference Range Interpretation Comme nts CONRAD SPECIES (test code = ) NEGATIVE G. VAGINALIS (test code = 95262) POSITIVE T. VAGINALIS (test code = 37027) NEGATIVE HIV AB/AG COMBO RFLX [id number] 00:00:00* Test Item Value Reference Range Interpretation Comme nts HIV 1/2 4TH GEN, RFLX CONF ( test code = 3514) NON-REACTIVE HIV AB/AG COMBO RFLX [id number] 00:00:00* Test Item Value Reference Range Interpretation Comme nts HIV 1/2 4TH GEN, RFLX CONF ( test code = 3514) NON-REACTIVE ACUTE HEPATITIS [id number] 00:00:00* Test Item Value Reference Range Interpretation Comme nts HEPATITIS A IgM (test code = 23004) NON-REACTIVE HEPATITIS B CORE IgM (test c ode = 4644) NON-REACTIVE HEPATITIS B SURF AG (test co de = 2739) NON-REACTIVE HEPATITIS C ANTIBODY (test c ode = 4675) NON-REACTIVE INTERPRETATION HEPATITIS A: (test code = 2552) (NOTE) INTERPRETATION HEPATITIS B: (test code = 49901) (NOTE) INTERPRETATION HEPATITIS C: (test code = 86268) (NOTE) CULTURE, [id number] 00:00:00* Test Item Value Reference Range Interpretation Comme nts CULTURE, URINE (test code = 47878) SPECIMEN NUMBER: [id number] CULTURE, [id number] 00:00:00* Test Item Value Reference Range Interpretation Comme nts CULTURE, URINE (test code = 31190) SPECIMEN NUMBER: [id number] CULTURE, [id number] 00:00:00* Test Item Value Reference Range Interpretation Comme nts CULTURE, URINE (test code = 32216) SPECIMEN NUMBER: [id number] CULTURE, [id number] 00:00:00* Test Item Value Reference Range Interpretation Comme nts CULTURE, URINE (test code = 52724) SPECIMEN NUMBER: [id number] SARS-CoV-2 (COVID-19) by RT-PCR (HIGH RISK)2020-11-03 00:00:00* Test Item Value Reference Range Interpretation Comme nts SARS-CoV-2 INTERPRETATION (t est code = 56072) NEGATIVE SOURCE (test code = 13013) NOT SPECIFIED SARS-CoV-2 (COVID-19) by RT-PCR (HIGH RISK)2020-11-03 00:00:00* Test Item Value Reference Range Interpretation Comme nts SARS-CoV-2 INTERPRETATION (t est code = 61454) NEGATIVE SOURCE (test code = 07610) NOT SPECIFIED CHLAMYDIA, AMPLIFIED, [id number] 00:00:00* Test Item Value Reference Range Interpretation Comme nts CHLAMYDIA, NAAT (test code = 42012) NEGATIVE CHLAMYDIA, AMPLIFIED, [id number] 00:00:00* Test Item Value Reference Range Interpretation Comme nts CHLAMYDIA, NAAT (test code = 35778) NEGATIVE GC, AMPLIFIED, [id number] 00:00:00* Test Item Value Reference Range Interpretation Comme nts GONORRHEA, NAAT (test code = 98938) NEGATIVE GC, AMPLIFIED, [id number] 00:00:00* Test Item Value Reference Range Interpretation Comme nts GONORRHEA, NAAT (test code = 03121) NEGATIVE VAGINAL PATHOGENS DNA [id number] 00:00:00* Test Item Value Reference Range Interpretation Comme nts CONRAD SPECIES (test code = 80458) NEGATIVE G. VAGINALIS (test code = 52107) POSITIVE T. VAGINALIS (test code = 58526) NEGATIVE VAGINAL PATHOGENS DNA [id number] 00:00:00* Test Item Value Reference Range Interpretation Comme nts CONRAD SPECIES (test code = 58835) NEGATIVE G. VAGINALIS (test code = 65160) POSITIVE T. VAGINALIS (test code = 07347) NEGATIVE ACUTE HEPATITIS [id number] 00:00:00* Test Item Value Reference Range Interpretation Comme nts HEPATITIS A IgM (test code = 94649) NON-REACTIVE HEPATITIS B CORE IgM (test c ode = 4644) NON-REACTIVE HEPATITIS B SURF AG (test co de = 7429) NON-REACTIVE HEPATITIS C ANTIBODY (test c ode = 4671) NON-REACTIVE INTERPRETATION HEPATITIS A: (test code = 2552) (NOTE) INTERPRETATION HEPATITIS B: (test code = 07676) (NOTE) INTERPRETATION HEPATITIS C: (test code = 71014) (NOTE) CHLAMYDIA, AMPLIFIED, [id number] 00:00:00* Test Item Value Reference Range Interpretation Comme nts CHLAMYDIA, TMA (test code = 65144) NEGATIVE CHLAMYDIA, AMPLIFIED, [id number] 00:00:00* Test Item Value Reference Range Interpretation Comme nts CHLAMYDIA, TMA (test code = 60957) NEGATIVE GC, AMPLIFIED, [id number] 00:00:00* Test Item Value Reference Range Interpretation Comme nts GONORRHEA, TMA (test code = 79859) NEGATIVE GC, AMPLIFIED, [id number] 00:00:00* Test Item Value Reference Range Interpretation Comme nts GONORRHEA, TMA (test code = 74818) NEGATIVE [id number] 00:00:00* Test Item Value Reference Range Interpretation Comme nts RPR RESULT (test code = 3501) NON-REACTIVE RPR TITER (test code = 3500) NOT INDIC. TITER [id number] 00:00:00* Test Item Value Reference Range Interpretation Comme nts RPR RESULT (test code = 3501) NON-REACTIVE RPR TITER (test code = 3500) NOT INDIC. TITER [id number] 00:00:00* Test Item Value Reference Range Interpretation Comme nts RPR RESULT (test code = 3501) NON-REACTIVE RPR TITER (test code = 3500) NOT INDIC. TITER HIV AB/AG COMBO RFLX [id number] 00:00:00* Test Item Value Reference Range Interpretation Comme [facility] HIV 1/2 4TH GEN, RFLX CONF ( test code = 3514) NON-REACTIVE PAP TEST, THINPREP, [id number] 00:00:00* Test Item Value Reference Range Interpretation Comme nts SOURCE: (test code = 8001) Cervical/Endocervical SLIDES: (test code = 8011) 1 LMP: (test code = 8021) 05/11/2020 SPECIMEN ADEQUACY: (test code = 75704) (NOTE) INTERPRETATION: (test code = 35814) NILM/NO EPITH. ABNORMALITY;SEE BELOW COTTON BREEDER: (test code = 8101) JACKSON Mao(ASCP) LOCATION: (test code = 04064) (NOTE) CPT: (test code = 8140) (NOTE) VAGINAL PATHOGENS DNA [id number] 00:00:00* Test Item Value Reference Range Interpretation Comme nts CONRAD SPECIES (test code = ) NEGATIVE G. VAGINALIS (test code = 92056) NEGATIVE T. VAGINALIS (test code = 43734) NEGATIVE HIV AB/AG COMBO RFLX [id number] 00:00:00* Test Item Value Reference Range Interpretation Comme nts HIV 1/2 4TH GEN, RFLX CONF ( test code = 3514) NON-REACTIVE VAGINAL PATHOGENS DNA [id number] 00:00:00* Test Item Value Reference Range Interpretation Comme nts CONRAD SPECIES (test code = ) NEGATIVE G. VAGINALIS (test code = 72730) NEGATIVE T. VAGINALIS (test code = 84285) NEGATIVE PAP TEST, THINPREP, [id number] 00:00:00* Test Item Value Reference Range Interpretation Comme nts SOURCE: (test code = 8001) Cervical/Endocervical SLIDES: (test code = 8011) 1 LMP: (test code = 8021) 05/11/2020 SPECIMEN ADEQUACY: (test code = 12318) (NOTE) INTERPRETATION: (test code = 04890) NILM/NO EPITH. ABNORMALITY;SEE BELOW COTTON BREEDER: (test code = 8101) JACKSON Mao(ASCP) LOCATION: (test code = 04147) (NOTE) CPT: (test code = 8140) (NOTE) ACUTE HEPATITIS [id number] 00:00:00* Test Item Value Reference Range Interpretation Comme nts HEPATITIS A IgM (test code = 46181) NON-REACTIVE HEPATITIS B CORE IgM (test c ode = 4644) NON-REACTIVE HEPATITIS B SURF AG (test co de = 3289) NON-REACTIVE HEPATITIS C ANTIBODY (test c ode = 4631) NON-REACTIVE INTERPRETATION HEPATITIS A: (test code = 2552) (NOTE) INTERPRETATION HEPATITIS B: (test code = 56479) (NOTE) INTERPRETATION HEPATITIS C: (test code = 71946) (NOTE) HPV HIGH RISK WITH GENOTYPE, [id number] 00:00:00* Test Item Value Reference Range Interpretation Comme nts HPV HIGH RISK INTERP (test c ode = 86710) NEGATIVE HPV 16 (test code = 79144) NEGATIVE HPV 18 (test code = 54548) NEGATIVE HPV, HR, OTHER GENOTYPES (te st code = 42236) NEGATIVE HPV HIGH RISK WITH GENOTYPE, [id number] 00:00:00* Test Item Value Reference Range Interpretation Comme nts HPV HIGH RISK INTERP (test c ode = 01989) NEGATIVE HPV 16 (test code = 05183) NEGATIVE HPV 18 (test code = 19228) NEGATIVE HPV, HR, OTHER GENOTYPES (te st code = 95296) NEGATIVE [id number] 00:00:00* Test Item Value Reference Range Interpretation Comme nts PROLACTIN (test code = 2800) 11.0 NG/ML [id number] 00:00:00* Test Item Value Reference Range Interpretation Comme nts PROLACTIN (test code = 2800) 11.0 NG/ML [id number] 00:00:00* Test Item Value Reference Range Interpretation Comme nts TSH, THIRD GENERATION (test code = 2821) 0.793 UIU/ML [id number] 00:00:00* Test Item Value Reference Range Interpretation Comme nts TSH, THIRD GENERATION (test code = 2821) 0.793 UIU/ML [id number] 00:00:00* Test Item Value Reference Range Interpretation Comme nts TSH, THIRD GENERATION (test code = 2821) 0.793 UIU/ML Notes Date/Time Note Provider Source 2024-03-08 10:07:44 [id number] Images from the original note were not included.Requested Renewalsdextroamphetamine-amphetami ne (ADDERALL) 30 mg tabletSig: Take 1 tablet by mouth in the morning and 1 tablet in the evening.Disp: 60 tablet Refills: 0Start: 03/08/2024Earliest Fill Date: 03/08/2024lass: eRXFor: Attention deficit disorder (ADD) in adultLast ordered: 3 weeks ago (02/11/2024) by Ruby Jose Review Required Vnmzkc3703/08/2024 10:01 AMProtocol Details This refill cannot be delegatedValid encounter within last 12 monthsTo be filled at: [id number] - [place], [place] - [address] [facility] Mallorie VisitsDate Type Provider Dept01/07/24 Office Visit Laura Beltran MD [facility]10/16/23 Office Visit Gaby Palma MD [facility]08/11/23 Office Visit Laura Beltran MD [facility]02/03/23 Office Visit Laura Beltran MD [facility]12/06/22 Office Visit Trena Wyatt PA [facility]11/20/22 Office Visit Vaughn Tan FNP [facility]09/25/22 Office Visit Laura Beltran MD [facility] MedShowing recent visits within past 540 days with a meds authorizing provider and meeting all other requirementsFuture AppointmentsNo visits were found meeting these conditions.Showing future appointments within next 150 days with a meds authorizing provider and meeting all other requirements [id number] encounter [id number]:07:58Telephone encounter [id number]. [id number] for patient [id number] C-CDA narrative [id number] M Fisher [address] [address] Hb[id number] 8KGSGRSBHXCKLXUHCFVNNCZ5074-00-74L3 0:07:581.2.840.162681.1.72.3.15|1.2 .840.137743.1.13.104.2.7.2.727879_2 [id number] Sirena Crowe LVN [facility] 2024-02-11 14:59:40 3818-88-16Q99:59:40 Recent VisitsDate Type Provider Dept01/07/24 Office Visit Laura Beltran MD Ang-Db [facility] Med10/16/23 Office Visit Gaby Palma MD Ang-Db [facility] Med08/11/23 Office Visit Laura Beltran MD Ang-Db [facility] Med02/03/23 Office Visit Laura Beltran MD Ang-Db [facility] Med12/06/22 Office Visit Trena Wyatt PA Ang-Db [facility] Fam Med11/20/22 Office Visit Vaughn Tan FNP Ang-Db [facility] Med09/25/22 Office Visit Laura Beltran MD Ang-Db [facility] MedShowing recent visits within past 540 days with a meds authorizing provider and meeting all other requirementsFuture AppointmentsNo visits were found meeting these conditions.Showing future appointments within next 150 days with a meds authorizing provider and meeting all other requirementsLast refill wasdextroamphetamine-amphetamine (ADDERALL) 30 mg tablet 60 tablet 0 01/05/2024 -- --Sig: Take 1 tablet by mouth in the morning and 1 tablet in the evening. 54856-0Dzfgirver encounter UcnuTZ8332-37-52D92:00:03Telephone encounter NoteTXT1.2.840.413127.1.13.104.2.7. 2.021303|[id number] for patient weff81598-5XlikKMHLKTHCYIQOckxllosg C-CDA narrative text[address] Vbg[id number] 3VQGABAZSQZFRMXNAZZURWK4394-96-69C7 5:00:031.2.840.010013.1.72.3.15|1.2 .840.849608.1.13.104.2.7.2.727879_2 [id number] [facility] 2024-02-11 14:42:36 1824-55-80L15:42:36 Copied from [facility] #[id number]. Topic: Clinical - Order>> Feb 11, 2024 2:41 PM Patient Ssn/Ssbn Assistant Navigator wrote:Anne Marie Durham is a 43 year old female is calling in refill fordextroamphetamine-amphetamine 30 mg tablet (AdderalL)[id number] [facility] [employer] DRIVEPhone: Vgrwojf is completely out 28574-1Jspvdihgg encounter HacfCR5675-07-43A54:43:22Telephone encounter NoteTXT1.2.840.217448.1.13.104.2.7. 2.442059|[id number] for patient cqfr25327-5BmffNZJBMSFUWWDLwmhtlyyz C-CDA narrative text[address] MavyQbzq[id number] 8MAROSYGLLMXOFRMFUJFQPW0782-02-64V1 4:43:221.2.840.936353.1.72.3.15|1.2 .840.700944.1.13.104.2.7.2.727879_2 [id number] [facility] 2024-01-01 16:51:37 5864-13-81D67:51:37 Images from the original note were not included.Requested Renewalsdextroamphetamine-amphetami ne (ADDERALL) 30 mg tabletPossible duplicate: Jolanta to review recent actions on this medicationSig: Take 1 tablet by mouth in the morning and 1 tablet in the evening.Disp: 60 tablet Refills: 0Start: 01/01/2024Earliest Fill Date: 01/01/2024lass: eRXNon-formulary For: Attention deficit disorder (ADD) in adultLast ordered: 3 weeks ago (12/11/2023) by Ruby Jose Review Required Fzosaz5401/01/2024 04:48 PMProtocol Details This refill cannot be delegatedValid encounter within last 12 monthsTo be filled at: [facility][id number] - [facility] [place] - [address] [facility]Recent VisitsDate Type Provider Dept112/17/22 Office Visit Gaby Palma MD Ang-Db [facility]08/11/23 Office Visit Laura Beltran MD Ang[facility]02/03/23 Office Visit Laura Beltran MD Ang[facility]12/06/22 Office Visit Trena Wyatt PA Ang[facility]11/20/22 Office Visit Vaughn Tan FNP Ang-Db [facility]09/25/22 Office Visit Laura Beltran MD Ang-Db [facility] MedShowing recent visits within past 540 days with a meds authorizing provider and meeting all other requirementsFuture AppointmentsNo visits were found meeting these conditions.Showing future appointments within next 150 days with a meds authorizing provider and meeting all other requirements 42494-0Bsdwfmilj encounter WqyjFP3716-00-91L77:51:45Telephone encounter NoteTXT1.2.840.381760.1.13.104.2.7. 2.550075|[id number] for patient cwyk77254-2CvjmPWNGRPNGTNAIwfricaxh C-CDA narrative [id number] M Fisher [address] XrgfM[id number] 2UKMVXQAPVPTKVLVLCDMOFQ8649-07-28F1 6:51:451.2.840.230713.1.72.3.15|1.2 .840.035551.1.13.104.2.7.2.727879_2 [id number] Sirena Crowe LVN [facility] 2024-01-01 16:46:45 7596-23-55N35:46:45 Copied from [facility] #[id number]. Topic: Clinical - Order>> Jan 01, 2024 4:46 PM Patient Ssn/Ssbn Assistant Navigator wrote:Anne Marie Durham is a 43 year old female is calling in refill for :dextroamphetamine-amphetamine 30 mg tablet (AdderalL)[facility][id number] - [place], [place] - [address] [facility] [address]Wopld: [phone] Wxkzkftavvbbpg signed by Ravi Deal at 01/01/2024 4:48 PM CFK04459-7Wqlijvgvg encounter UwenMX5790-30-51O08:48:05Telephone encounter NoteTXT1.2.840.759376.1.13.104.2.7. 2.295181|[id number] for patient vlwi93447-2KrjeOWRSJNROVSFGiufpnwpg C-CDA narrative text[address] JblsPmzyceouxEdwleuecuTNHG471873550 7WICTFQQMTPCIWPXRKFPNMT6008-84-36V9 6:48:051.2.840.548549.1.72.3.15|1.2 .840.050380.1.13.104.2.7.2.727879_2 [id number] [facility] 2023-12-24 09:00:54 0152-43-55F05:00:54 Anne Marie Durham is a 43 year old femalePatient requesting referral for ophthalmology and dermatology. Please advise. 55233-7Pnevdpbmg encounter AetyDR3584-75-29O75:04:48Telephone encounter NoteTXT1.2.840.212625.1.13.104.2.7. 2.737456|[id number] for patient ulvq85842-6KtseAHLIOFIKNWCHjgemjxoa C-CDA narrative jlsg698058237Rqepnfe L Thompson[id number] 9ORDMEOGSXINFLJGMBDRJFD6436-48-21Q6 9:04:481.2.840.697714.1.72.3.15|1.2 .840.186375.1.13.104.2.7.2.727879_2 [id number] Saulo Carver [facility] 2023-12-11 15:06:12 3284-24-75F02:06:12 Pt calling to report that she has contacted several pharmacies and has been told she will need to request a change in her Adderall medication to 60mg capsules or to 20mg tablets (disp 90) in order for her current pharmacy to fill. Pt states she does not want generic medication 24305-0Dkapobgni encounter KwqnKE2207-87-03W10:09:16Telephone encounter NoteTXT1.2.840.307559.1.13.104.2.7. 2.138992|[id number] for patient vbzo48624-2BqozHRLNFYACOJOJjucworks C-CDA narrative zopy43206154Dhmud L [id number] 9USPOOOAVJLQOTTTVWJNFDN8695-28-15M7 5:09:161.2.840.609428.1.72.3.15|1.2 .840.027330.1.13.104.2.7.2.727879_2 [id number] Eliza Landon [facility] 2023-12-11 11:24:13 4014-51-15G13:24:13 Anne Marie Durham is a 43 year old femalePatient calling asking if Rx dextroamphetamine-amphetamine (ADDERALL) 30 mg tablet ca be sent to [facility] in [place] instead. Please advise. 18238-3Brnavjpff encounter FbstJZ0260-26-69P04:26:15Telephone encounter NoteTXT1.2.840.239619.1.13.104.2.7. 2.096074|[id number] for patient higz58948-1QalkHVJETFQTTRBIilxpxqsf C-CDA narrative ghor409114210Vioqltk J Raines[address]TXTX[address] 1RYDAPHVCMRHSYWLTSUAFFJ0334-10-94U7 1:26:151.2.840.794687.1.72.3.15|1.2 .840.860635.1.13.104.2.7.2.727879_2 [id number] Kaya Knight [facility] 2023-12-09 09:42:25 3903-16-36S54:42:25 Anne Marie Durham is a 43 year old femalePt states that her pharmacy has the ADHD medication on back order, please resubmit to:[facility], [place] [address]-8Nfqvjtlzg encounter WljjIR7223-81-20U40:48:39Telephone encounter NoteTXT1.2.840.807061.1.13.104.2.7. 2.507126|[id number] for patient awtm73713-2IaxjAVTAZTDKYVDGrwvznnhy C-CDA narrative akbl440617006Jvctnxr M Ray[id number] 3SNPGMGRWOTLMKTTWIUWMYP4140-37-02B1 9:48:391.2.840.305806.1.72.3.15|1.2 .840.701471.1.13.104.2.7.2.727879_2 [id number] Chantal Delatorre [facility] 2023-12-08 14:58:12 9777-49-97H34:58:12 Images from the original note were not included.Requested Renewalsdextroamphetamine-amphetami ne (ADDERALL) 30 mg tabletSig: Take 1 tablet by mouth in the morning and 1 tablet in the evening.Disp: 60 tablet Refills: 0Start: 12/08/2023Earliest Fill Date: 12/08/2023lass: eRXNon-formulary For: Attention deficit disorder (ADD) in adultLast ordered: 4 weeks ago (11/10/2023) by Ruby Jose Review Required Chlmvv4512/08/2023 02:13 PMProtocol Details This refill cannot be delegatedValid encounter within last 12 monthsTo be filled at: [id number] [place], [place] - [address] [facility] DRIVERecent VisitsDate Type Provider Dept112/17/22 Office Visit Gaby Palma MD Ang-Db [facility] Med08/11/23 Office Visit Laura Beltran MD Ang-Db [facility] Med02/03/23 Office Visit Laura Beltran MD Ang-Db [facility] Med12/06/22 Office Visit Trena Wyatt PA Ang-Db [facility] Med11/20/22 Office Visit Vaughn Tan FNP Ang-Db [facility] Med09/25/22 Office Visit Laura Beltran MD Ang-Db [facility] Med07/09/22 Office Visit Laura Beltran MD Ang-Db [facility] MedShowing recent visits within past 540 days with a meds authorizing provider and meeting all other requirementsFuture AppointmentsDate Type Provider Dept12/15/23 Appointment Laura Beltran MD Ang-Db [facility] MedShowing future appointments within next 150 days with a meds authorizing provider and meeting all other requirements 37170-1Eumqjqpqx encounter CyppEX2563-37-40P98:58:19Telephone encounter NoteTXT1.2.840.245560.1.13.104.2.7. 2.371171|[id number] for patient vebp43074-8UeyzEWBVYJNWUWRMhwawghwe C-CDA narrative xzme334412229Wzjonci M Fisher [id number] 6NEDAJBRNINDLLYRODUBSXU4965-53-36J0 4:58:191.2.840.000253.1.72.3.15|1.2 .840.720489.1.13.104.2.7.2.727879_2 [id number] Sirena Crowe [facility] 2023-12-08 14:12:34 6311-66-38J04:12:34 Anne Marie Durham is a 43 year old femalePt called requesting a refill. Pt is out of medication.[id number] FIRSTHEALTHPhone: Svzoddynvzzywe signed by Mariaa Villegas at 12/08/2023 2:13 PM UCY96874-5Glvgjyukc encounter BwgtOB4036-57-23E72:13:35Telephone encounter NoteTXT1.2.840.811158.1.13.104.2.7. 2.616400|[id number] for patient rauj15435-0XoayYPCMPNMBXPKDvbdgbqfr C-CDA narrative [id number] 1HXEMWMUWIOCKDPRFMLDQAU0702-88-35N7 4:13:351.2.840.519763.1.72.3.15|1.2 .840.952126.1.13.104.2.7.2.727879_2 [id number] [facility] 2023-12-04 12:13:53 2494-29-12Q52:13:53 1.Anne Marie Durham is a 43 year old femalePt is requesting a referral to Dr Gurjit Romeo, [facility] in [place].Ph [phone] Itgjl visit consultation.No appt currently per pt til referral placed.2. Pt is requesting brand name of [employer]- due to the dextroamphetamine-amphetamine (ADDERALL) 30 mg tablet does not like. 82229-5Grwnsukkk encounter TnceUU0979-00-90Z78:21:28Telephone encounter NoteTXT1.2.840.591382.1.13.104.2.7. 2.908662|[id number] for patient zhbt84071-0XuxcGWXDUBFUFBGFscpuzshy C-CDA narrative text[address] QfswXolqqaojlOajxnuwbhSZYY633080098 7PBTFOIYQBIXMIWKQLPOVJI3066-75-65B9 2:21:281.2.840.286121.1.72.3.15|1.2 .840.163492.1.13.104.2.7.2.727879_2 [id number] [facility] 2023-11-27 08:27:14 2528-15-58D45:27:14 error 98443-0Xyxeknbzl encounter CoteAK9776-28-27O37:35:49Telephone encounter NoteTXT1.2.840.913150.1.13.104.2.7. 2.923411|[id number] for patient rhfk69859-8DredMWMSHAEFYWDQtpmiivvt C-CDA narrative dufa275731090RqOxouoj [address] ZvgoWmbndfpewRvlzfqkbfPEKK609363732 3YFWFARPNURBIGNLJHUXVEW6598-86-84U5 8:35:491.2.840.269971.1.72.3.15|1.2 .840.779564.1.13.104.2.7.2.727879_[id number] [facility] 2023-11-10 11:09:04 8567-17-03R62:09:04 Recent VisitsDate Type Provider Dept112/17/22 Office Visit [...] Med06/04/22 Office Visit Laura Beltran MD Ang-Db [facility] MedShowing recent visits within past 540 days with a meds authorizing provider and meeting all other requirementsFuture AppointmentsDate Type Provider Dept12/15/23 Appointment Laura Beltran MD Ang-Db [facility] MedShowing future appointments within next 150 days with a meds authorizing provider and meeting all other requirementsPatient is wanting to with back to 30 mg adderall 46254-0Luftuwgfw encounter KngsHH6382-73-89C36:09:44Telephone encounter NoteTXT1.2.840.051009.1.13.104.2.7. 2.757679|[id number] for patient pwaj11334-6BofbZLCBWZLOIJNRsebqliuj C-CDA narrative textUT[address] StreetTXTX775557755 8CFRWUAGNTWAYEPJEBKXCYX9082-01-86Z2 1:09:441.2.840.615850.1.72.3.15|1.2 .840.700843.1.13.104.2.7.2.727879_2 [id number] [facility] 2023-11-10 09:11:44 3471-40-91L11:11:44 Anne Marie Durham is a 43 year old femalePt called following up on request. Please advise. 62976-0Yeplknora encounter NnuxUL1721-23-99W96:15:29Telephone encounter NoteTXT1.2.840.783371.1.13.104.2.7. 2.357706|[id number] for patient ldvm69915-1VtcyNPBKFDTQCPGIihthlvlz C-CDA narrative xzqy69297057HfspmifMariaa Sykes[address] StreetTXTX[address] 1XANPLQVOMTSTHXHUDNELWR2688-44-68M1 9:15:291.2.840.531595.1.72.3.15|1.2 .840.026779.1.13.104.2.7.2.727879_2 [id number] Mariaa Villegas [facility] 2023-11-08 16:34:25 0214-68-84Q74:34:25 Anne Marie Durham is a 43 year old femalePt calling to request a prescription of her correct dosage of medication andrew now has instock the 30mg pillsdextroamphetamine-amphetamine 30 mg tablet (AdderalL)[id number] - [place], [place] - [address] [facility] [employer] [place] [address] [facility]1][place] [address]Dfwok: [phone] Ebebhimpvryqob signed by Theo Chang at 11/08/2023 4:37 PM LYH39260-1Romyuxnte encounter MyyvOG6433-56-25Y13:37:37Telephone encounter NoteTXT1.2.840.331042.1.13.104.2.7. 2.813021|1967369539KJQfaxuonyt for patient vjgu24740-5YhywEMPRQOZHKMYGrbeqtfxl C-CDA narrative lljw565691474KyvlTheo Barnett[address] XnktJlbkmjtbbXpakuqizeZZXW171447554 4LAKOSWQQHVTNWOCZKZQBOS6026-00-48M7 6:37:371.2.840.170669.1.72.3.15|1.2 .840.703647.1.13.104.2.7.2.727879_2 [id number] Theo Barnett [facility] 2023-10-08 13:26:52 8157-22-47C12:26:52 Anne Marie Durham is a 43 year old femalePt states that her pharmacy doesn't have dextroamphetamine-amphetamine 30 mg tablet (AdderalL) in stock but they do have dextroamphetamine-amphetamine 20 mg tablet (AdderalL)She is requesting the dosage be changed to 20mg with an adjusted quantity to equal her current 30mg dosage. She states she currently takes two 30mg pills daily. Please contact pt if necessary [phone] (home)[facility] #[id number] [place], [place] - [address] [facility]: Jzaehvrzydjbpp signed by Say Ravi at 10/08/2023 1:30 PM ACW47560-9Ybxycvcvr encounter MmzxOF8791-64-32I48:30:43Telephone encounter NoteTXT1.2.840.144773.1.13.104.2.7. 2.462038|[id number] for patient jwac48996-8TzcnJCMUNJFDFKUNuxqfwkxa C-CDA narrative ilko214038674JzClxmgg [address] EewcAdtkollcqDcriggvqqPDYL873251217 2SLJZPSMNIGMGCSLLEGGEZY6909-43-07O2 3:30:431.2.840.603297.1.72.3.15|1.2 .840.231657.1.13.104.2.7.2.727879_1 [id number] Ravi Deal [facility] 2023-07-03 11:58:29 7761-81-56N44:58:29 Recent VisitsDate Type Provider Dept 02/03/23 Office Visit Laura Beltran MD [facility] 12/06/22 Office Visit Trena Wyatt PA [facility] 11/20/22 Office Visit Vaughn Tan FNP [facility] 09/25/22 Office Visit Laura Beltran MD [facility] 07/09/22 Office Visit Laura Beltran MD [facility] 06/04/22 Office Visit Laura Beltran MD AngDb [facility] Med Showing recent visits within past 540 days with a meds authorizing provider and meeting all other requirementsFuture AppointmentsNo visits were found meeting these conditions.Showing future appointments within next 150 days with a meds authorizing provider and meeting all other requirementsLast refill wasdextroamphetamine-amphetamine (ADDERALL) 30 mg tablet 60 tablet 0 06/09/2023 52767-1Eflgcekxy encounter WvunXT0790-20-99R36:58:50Telephone encounter NoteTXT1.2.840.331499.1.13.104.2.7. 2.598613|4173838724NUVbdqhyzis for patient kgil53308-7AshiLBYWXYXHDE[address] StreetTXTX[address] 4ANDWWJCJOCSCTKWDJDJPEY4509-55-02C1 1:58:501.2.840.116328.1.72.3.15|1.2 .840.395796.1.13.104.2.7.2.727879_1 [id number] [facility] 2023-07-03 11:50:58 1238-18-91N36:50:58 Anne Marie Durham is a 42 year old femalePt calling to have refill on medication and has 10 supplements left.dextroamphetamine-amphetamine (ADDERALL) 30 mg tabletPlease [facility] #[id number] - [place], [place] - [facility] [address] [facility] [employer] [address] [address]Slahz: [phone] Ndptsvcabyhrkj signed by Yao Winston at 07/03/2023 11:54 AM BHA24697-3Fcqixaqnz encounter JuepET7823-54-23B28:54:26Telephone encounter NoteTXT1.2.840.117562.1.13.104.2.7. 2.857117|[id number] for patient jrpf43743-0OcjlVVZOULWDDZ84 [address] [id number] 5XJKENXYHCSPKODZHHAWLOO7955-14-71R7 1:54:261.2.840.055371.1.72.3.15|1.2 .840.304483.1.13.104.2.7.2.727879_1 [id number] [facility] 2023-06-16 08:03:57 8586-33-13X96:03:57 Patient presented to clinic with c/o face [...] verbalized understanding.Sirena Crowe LVN 06/16/2023 8:08 AM 17540-3Vbcqpvdgy encounter TtwbCR0243-56-99S34:08:53Telephone encounter NoteTXT1.2.840.603842.1.13.104.2.7. 2.721400|[id number] for patient omec29691-3VtrzOQ951425906Karqbkm M Fisher [address] TcrtDlvbzprdgMuyenkfyqCPIN424321265 7NLVYSBZTZAUCFGIAEEKTKZ0324-79-95W8 8:08:531.2.840.998610.1.72.3.15|1.2 .840.577038.1.13.104.2.7.2.727879_1 [id number] Sirena Crowe [facility] 2023-06-09 10:48:12 2814-50-33E33:48:12 Recent VisitsDate Type Provider Dept 02/03/23 Office [...] 30 mg tablet 60 tablet 0 05/05/2023 41361-7Logjozidt encounter AqbrVD3695-29-54Z96:48:36Telephone encounter NoteTXT1.2.840.336881.1.13.104.2.7. 2.496720|[id number] for patient bcwr84454-6TddfQGULDDKGYX[address]TXTX[address] 0PXJRTIMMSLELRUITWLNGOO0859-37-82C6 0:48:361.2.840.211769.1.72.3.15|1.2 .840.222874.1.13.104.2.7.2.727879_1 [id number] [facility] 2023-06-09 09:19:15 4808-68-96I33:19:15 Patient is requesting a refill.[id number] [facility]ITALPhone: [address]-4Qhzqhragi encounter YytlJF9359-99-92M90:19:48Telephone encounter NoteTXT1.2.840.657202.1.13.104.2.7. 2.008514|[id number] for patient dslt86807-9IsefIYHFZXMTXJ[address] [id number] 0QVSIHIYUFCKAIJIGFLMUQH7921-95-03X7 9:19:481.2.840.161455.1.72.3.15|1.2 .840.545252.1.13.104.2.7.2.727879_1 [id number] [facility]"
--- NOTE | 2024-03-18 00:32 | EDPHYS ---
Physician Documentation [facility] Name: Anne Marie Cruz Age: 43 yrs Sex: Female : 1980 Arrival Date: 03/18/2024 Time: 00:01 Bed DX3 Private MD: ED Physician Reed Perea HPI: 03/18 00:10 This 43 yrs old Female presents to ER via Unassigned with complaints of BUGS sp4 IN HAIR, Altered Mental Status. 22:27 Patient is 43-year-old female with a history of bipolar disorder anxiety chronic pain sp4 and methamphetamine abuse. Patient complains of bugs and parasites in her hair also skin ulcers to the scalp. Unknown onset.. Historical: - Allergies: 00:15 Latex; vc1 - PMHx: 00:15 Anxiety; Bipolar disorder; Chronic pain; vc1 - PSHx: 00:15 hernia repair; vc1 - Immunization history:: Adult Immunizations unknown. - Infectious Disease History:: Denies. - Social history:: Smoking status: unknown. - Family history:: not pertinent. ROS: 22:27 Constitutional: Negative for fever, chills, and weight loss, positive anxiety, positive sp4 excoriations, positive hair loss, positive skin ulcers to the scalp. Positive areas of hair loss to the scalp. 22:27 All other systems are negative, Exam: 22:27 Constitutional: This is a well developed, well nourished patient who is awake, alert, sp4 and in no acute distress. Patient is anxious restless appears intoxicated on stimulant, consistently scratching her scalp. Patient has multiple scalp excoriations. Head/Face: Normocephalic, atraumatic. Positive multiple scalp excoriations from persistent scratching and clawing at the skin Eyes: Pupils equal round and reactive to light, extra-ocular motions intact. Lids and lashes normal. Conjunctiva and sclera are not injected. Cornea within normal limits. Periorbital areas with no swelling, redness, or edema. ENT: Nares patent. No nasal discharge, no septal abnormalities noted. Tympanic membranes are normal and external auditory canals are clear. Oropharynx with no redness, swelling, or masses, exudates, or evidence of obstruction, uvula midline. Mucous membranes moist. Neck: Trachea midline, no thyromegaly or masses palpated, and no cervical lymphadenopathy. Supple, full range of motion without nuchal rigidity, or vertebral point tenderness. Chest/axilla: Normal chest wall appearance and motion. Nontender with no deformity. No lesions are appreciated. Cardiovascular: Regular rate and rhythm with a normal S1 and S2. No gallops, murmurs, or rubs. Normal PMI, no JVD. No pulse deficits. Respiratory: Lungs have equal breath sounds bilaterally, clear to auscultation and percussion. No rales, rhonchi or wheezes noted. No increased work of breathing, no retractions or nasal flaring. Abdomen/GI: Soft, with normal bowel sounds. No distension or tympany. No guarding or rebound. No evidence of tenderness throughout. Back: No spinal tenderness. No costovertebral tenderness. Skin: Warm, dry with normal turgor. Normal color with no rashes, no lesions, and no evidence of cellulitis. MS/ Extremity: Pulses equal, no cyanosis. Neurovascular intact. Full, normal range of motion. Neuro: Awake and alert, GCS 15, oriented to person, place, time, and situation. Cranial nerves II-XII grossly intact. Motor strength 5/5 in all extremities. Sensory grossly intact. Psych: Awake, alert, with orientation to person, place , patient has persistent anxiety and restlessness persistent scratching and excoriating of the scalp. Vital Signs: 00:15 BP 158 / 99; Pulse 102; Resp 17; Temp 97.9; Pulse Ox 99% ; vc1 Damián Coma Score: 22:27 Eye Response: spontaneous(4). Motor Response: obeys commands(6). Verbal Response: sp4 oriented(5). Total: 15. MDM: 00:11 Patient medically screened. sp4 22:27 Differential Diagnosis: alcohol intoxication, overdose, Intoxication, trichotillomania, sp4 neurotic excoriations. Data reviewed: vital signs, nurses notes. ED course: Patient clearly has excoriations to scalp secondary to constant picking at the scalp and scratching. Patient advised to discontinue amphetamine abuse. Patient advised to take Diflucan to prevent fungal skin infection. Diflucan will be prescribed. Patient was strongly advised to discontinue stimulant abuse.. Administered Medications: No medications were administered Disposition Summary: 03/18/24 00:32 Discharge Ordered Notes: Location: Home sp4 Problem: new sp4 Symptoms: have improved sp4 Condition: Stable sp4 Diagnosis - Neurotic excoriation, trichotillomania, circular skin lesions sp4 Followup: sp4 - With: Private Physician - When: 7 - 10 days - Reason: Recheck today's complaints Discharge Instructions: - Discharge Summary Sheet sp4 - Rash, Adult, [id number] sp4 Forms: - Patient Portal Instructions sp4 Prescriptions: - Fluconazole 200 mg Oral tablet - take 1 tablet ORAL route once daily; 10 tablet; Refills: 0, Product Selection sp4 Permitted Signatures: Mariaa Walker RN RN vc1 Reed Perea MD MD sp4
--- NOTE | 2024-03-18 01:35 | ER ---
Nurse's Notes [facility] Name: Anne Marie Cruz Age: 43 yrs Sex: Female : 1980 Arrival Date: 03/18/2024 Time: 00:01 Bed DX3 Private MD: Diagnosis: Neurotic excoriation, trichotillomania, circular skin lesions Presentation: 03/18 00:15 Chief complaint: Patient states: I have bugs in my hair and they are like worms vc1 tunnelling through my heat. Coronavirus screen: At this time, the client does not indicate any symptoms associated with coronavirus-19. Ebola Screen: Patient negative for fever greater than or equal to 101.5 degrees Fahrenheit, and additional compatible Ebola Virus Disease symptoms Patient denies exposure to infectious person. Patient denies travel to an Ebola-affected area in the 21 days before illness onset. No symptoms or risks identified at this time. Initial Sepsis Screen: Does the patient meet any 2 criteria? No. Patient's initial sepsis screen is negative. Does the patient have a suspected source of infection? No. Patient's initial sepsis screen is negative. Risk Assessment: Do you want to hurt yourself or someone else?. Onset of symptoms is unknown. 00:15 Method Of Arrival: Ambulatory vc1 00:15 Acuity: PARISH 5 vc1 Triage Assessment: 00:30 General: Appears in no apparent distress. uncomfortable, unkempt, Behavior is restless. vc1 Pain: Complains of pain in scalp. EENT: No deficits noted. No signs and/or symptoms were reported regarding the EENT system. Neuro: Level of Consciousness is awake, alert, obeys commands, Oriented to person, place, time, situation, Appropriate for age. Cardiovascular: Patient's skin is warm and dry. Respiratory: Airway is patent Respiratory effort is even, unlabored, Respiratory pattern is regular, symmetrical. GI: No deficits noted. No signs and/or symptoms were reported involving the gastrointestinal system. : No deficits noted. No signs and/or symptoms were reported regarding the genitourinary system. Derm: Skin has lesions on patient with open sore covering arms and face. Patient with patches or hair missing from head. Pt noted to be consistently scratching head. Historical: - Allergies: 00:15 Latex; vc1 - PMHx: 00:15 Anxiety; Bipolar disorder; Chronic pain; vc1 - PSHx: 00:15 hernia repair; vc1 - Immunization history:: Adult Immunizations unknown. - Infectious Disease History:: Denies. - Social history:: Smoking status: unknown. - Family history:: not pertinent. Screenin:15 [facility] ED Fall Risk Assessment (Adult) History of falling in the last 3 months, vc1 including since admission No falls in past 3 months (0 pts) Confusion or Disorientation No (0 pts) Intoxicated or Sedated No (0 pts) Impaired Gait No (0 pts) Mobility Assist Device Used No (0 pt) Altered Elimination No (0 pt) Score/Fall Risk Level 0 - 2 = Low Risk Oriented to surroundings, Maintained a safe environment, Educated pt \T\ family on fall prevention, incl call for assistance when getting out of bed. Abuse screen: Denies threats or abuse. Nutritional screening: No deficits noted. Tuberculosis screening: No symptoms or risk factors identified. Vital Signs: 00:15 BP 158 / 99; Pulse 102; Resp 17; Temp 97.9; Pulse Ox 99% ; vc1 [place] Coma Score: 22:27 Eye Response: spontaneous(4). Motor Response: obeys commands(6). Verbal Response: sp4 oriented(5). Total: 15. ED Course: 00:09 Patient arrived in ED. gm2 00:10 Reed Perea MD is Attending Physician. sp4 00:15 Arm band placed on right wrist. vc1 01:00 No provider procedures requiring assistance completed. Patient did not have IV access vc1 during this emergency room visit. 01:30 Triage completed. vc1 Administered Medications: No medications were administered Medication: 01:00 VIS not applicable for this client. vc1 Outcome: 00:32 Discharge ordered by . sp4 01:34 Patient left the ED. vc1 Signatures: Mariaa Walker RN RN vc1 Reed Perea MD MD sp4 Irish Ramey gm2
[2024-03-18 01:50] VITALS: BP 158/99; TEMP 97.9; O2SAT 99
== END 2024-03-18 01:34 | disposition home or self-care (01) ==
LOC: ER 00:01
DX: L98.1 Factitial dermatitis (principal); F63.3 Trichotillomania; L98.8 Other specified disorders of the skin and subcutaneous tissue; F31.9 Bipolar disorder, unspecified
CPT/HCPCS: 99281

== ENCOUNTER 2024-03-18 21:53 | Emergency (ER) | payer OTHER, SELFPAY ==
--- OUTSIDE RECORDS SUMMARY | 2024-03-18 21:58 | XMS REPORT | Continuity of Care Document ---
Author Name Unknown Address [address] [facility] [address] [place] [address] [facility] Address [address] [facility] [address] [place] [address] Care Team Providers Care Heat Treater Name Role Phone Roseanne Otto TAYLOR Primary Care Physician Laura Beltran MD Attending Clinician + [phone] ENEIDA CANNON Attending Clinician Unavail able LAURA BELTRAN Attending Clinician UnaVivienne Be Attending Clinician [phone] Unknown, Attending Attending Clinician Unavailab VIVIENNE Koo Attending Clinician Unavailable Doctor Unassigned, [place] Attending Clinician U GABY Pink Attending Clinician Unavailable GABY PALMA Attending Clinician Unavailable MAIKEL SIGALA Attending Clinician Unavailable MC STRONG Attending Clinician Unavailable Mc Strong MD Attending Clinician [phone] Feroz Barakat MD Attending Clinician [phone] FEROZ BARAKAT Attending Clinician Unavailab le YESSENIA CALL Attending Clinician Unavailable [facility] Attending Clinician Un available Yessenia Cruz Attending Clinician [phone] UNKNOWN, ATTENDING Attending Clinician Unavailab le Provider, [facility] Attending Clinician Unavailable FLOR INFANTE Attending Clinician Unavailable Naresh PARKER, Flor Attending Clinician [phone] Trena Fairbanks Attending Clinician [phone] STU BORGES Attending Clinician Unavailab TRENA Rinaldi Attending Clinician Unavailable VAUGHN TAN Attending Clinician Unavailable Britney [employer], Vaughn Attending Clinician [phone] ARNEL ALARCON Attending Clinician Unavailable MILA EKYS Attending Clinician Unavailable Jamar [employer], Mila Attending Clinician [phone] MUNDO PEDROZA Attending Clinician Unavailable Yovany [employer], Mundo Attending Clinician [phone] Luis Fernando THORNTON, Lora Attending Clinician Unavailable Marc Khoury MD Attending Clinician [phone] Marilyn [employer], Nayla Larios Attending Clinician + [phone] JORDAN HALEY Attending Clinician UnavailRoxy ANGELPJhoana Attending Clinician [phone] JHOANA ARNOLD Attending Clinician Unavailalthea moore Pob, [facility] Attending Clinician Unavailwen Seaman MD, Cristal Seth Attending Clinician [phone] CRISTAL SEAMAN Attending Clinician Unava KELSI Borrego Attending Clinician Unavailab Kelsi Wang DO Attending Clinician [phone] JHOANA ARNOLD Admitting Clinician Unavailalthea moore Payers Payer Name Policy Type Policy Number Effective Date Expirati on Date Source [facility] MEDICAID [id number] 2017 00:00:00 [facility] [id number] 00:00:00 [place] [id number] 2017 00:00:00 Problems Condition Name Condition Details Condition Category Status Onset Date Resolution Date Last Treatment Date Treating Clinician Comments Source Cellulitis of left lower extremity Cellulitis of left lower extremity Disease Active 11-20 00:00: 00 [facility] Abscess Abscess Disease Active 11-20 00:00: 00 [facility] Skin sore Skin sore Disease Active 2- 00:00: 00 [facility] Follow-up exam Follow-up exam Disease Active 2- 00:00: 00 [facility] Bipolar 1 disorder, manic, mild Bipolar 1 disorder, manic, mild Disease Active 9- 00:00: 00 [facility] Attention deficit disorder (ADD) in adult Attention deficit disorder (ADD) in adult Disease Active 8- 00:00: 00 [facility] Allergies, Adverse Reactions, Alerts Allergy Name Allergy Type Status Severity Reaction(s) Onset Date Inactive Date Treating Clinician Comments Source NO KNOWN ALLERGIE S Drug Class Active [facility] Social History Social Habit Start Date Stop Date Quantity Comments Source Gender identity [facility] acute hospital Sexual orientation [facility] Alcoholic beverage intake 2024-01-07 00:00:00 2024-01-07 00:00:00 Ex-drinker (finding) [facility] Alcohol intake 2024-01-07 00:00:00 2024-01-07 00:00:00 Ex-drinker (finding) [facility] Tobacco use and exposure 2024-01-04 00:00:00 2024-01-04 00:00:00 Smokeless tobacco non-user [facility] History of Social function 2023-08-11 00:00:00 2023-08-11 00:00:00 [facility] Exposure to SARS-CoV-2 (event) 2023-01-28 00:00:00 2023-02-07 09:18:00 Not sure [facility] History of tobacco use 2010-03-28 00:00:00 Cigarette Smoker [facility] Sex assigned at 1980 00:00:00 1980 00:00:00 [facility] Smoking Status Start Date Stop Date Source Smokes tobacco daily 2024-01-04 00:00:00 [facility] Ex-smoker 2022-07-09 00:00:00 2022-07-09 00:00:00 [facility] Medications Ordered Medication Name Filled Medication Name Start Date Stop Date Current Medication? Ordering Clinician Indication Dosage Frequency Signature (SIG) Comments Components Source dextroamphe tamine-amph etamine (ADDERALL) 30 mg tablet 5-20 00:00: 00 Yes [id number] 30mg Take 1 tablet by mouth in the morning and 1 tablet in the evening. [facility] dextroamphe tamine-amph etamine (ADDERALL) 30 mg tablet 4-24 00:00: 00 03-08 00:00 :00 No [id number] 30mg Take 1 tablet by mouth in the morning and 1 tablet in the evening. [facility] dextroamphe tamine-amph etamine (ADDERALL) 30 mg tablet 3-18 00:00: 00 Yes [id number] 30mg Take 1 tablet by mouth in the morning and 1 tablet in the evening. [facility] ketorolac (TORADOL) injection 30 mg 17 21:45: 00 01-03 21:11 :00 No [id number] 30mg [facility] predniSONE 20 mg tablet 17 00:00: 00 01-06 00:00 :00 No [id number] 40mg Take 2 tablets by mouth in the morning for 5 days. [facility] hydrocortis one 2.5 % cream 17 00:00: 00 01-06 00:00 :00 No [id number] Apply to area(s) 2 (two) times daily for 7 days. [facility] dextroamphe tamine-amph etamine (ADDERALL) 20 mg tablet 2-22 00:00: 00 03-08 00:00 :00 No [id number] 20mg Take 1 tablet by mouth in the morning and 1 tablet at noon and 1 tablet in the evening. [facility] dextroamphe tamine-amph etamine (ADDERALL) 30 mg tablet 2-22 00:00: 00 12-31 00:00 :00 No [id number] 30mg Take 1 tablet by mouth in the morning and 1 tablet in the evening. [facility] dextroamphe tamine-amph etamine (ADDERALL) 30 mg tablet 12-09 00:00: 00 Yes [id number] 30mg Take 1 tablet by mouth in the morning and 1 tablet in the evening. [facility] dextroamphe tamine-amph etamine (ADDERALL) 30 mg tablet 12-08 00:00: 00 Yes [id number] 30mg Take 1 tablet by mouth in the morning and 1 tablet in the evening. [facility] dextroamphe tamine-amph etamine (ADDERALL) 30 mg tablet 11-10 00:00: 00 12-08 00:00 :00 No [id number] 30mg Take 1 tablet by mouth in the morning and 1 tablet in the evening. [facility] ketorolac (TORADOL) injection 30 mg 2022-10 23:45: 00 10-16 23:05 :00 No [id number] 30mg [facility] ibuprofen 800 mg tablet 2022-10 00:00: 00 Yes [id number] 800mg Take 1 tablet by mouth every 8 (eight) hours as needed (With meals). [facility] promethazin e-dextromet horphan 6.25-15 mg/5 mL syrup 2022-10 00:00: 00 Yes [id number] 5mL Take 5 mL by mouth 4 (four) times daily as needed for Cough. [facility] albuterol 90 mcg/actuati on inhaler 2022-10 00:00: 00 Yes [id number] 2{puff} Inhale 2 Puffs every 6 (six) hours as needed for Wheezing or Shortness of Breath. [facility] fluticasone propionate 50 mcg/actuati on nasal spray 2022-10 00:00: 00 Yes [id number] Use two sprays in each nostril daily for a week, then use one spray in each nostril daily [facility] nirmatrelvi r-ritonavir 300 mg (150 mg x 2)-100 mg tablet 2022-10 00:00: 00 11-10 00:00 :00 No [id number] 3{tbl} Take 3 tablets by mouth in the morning and 3 tablets in the evening. [facility] dextroamphe tamine-amph etamine (ADDERALL) 20 mg tablet 2022-10 220 00:00: 00 11-10 00:00 :00 No [id number] 20mg Take 1 tablet by mouth in the morning and 1 tablet at noon and 1 tablet in the evening. [facility] dextroamphe tamine-amph etamine (ADDERALL) 30 mg tablet 2022-10 2- 00:00: 00 Yes [id number] 30mg Take 1 tablet by mouth in the morning and 1 tablet in the evening. [facility] dextroamphe tamine-amph etamine (ADDERALL) 30 mg tablet 2022-10 00:00: 00 10-06 00:00 :00 No [id number] 30mg Take 1 tablet by mouth in the morning and 1 tablet in the evening. [facility] dextroamphe tamine-amph etamine (ADDERALL) 30 mg tablet 2022-10 1 00:00: 00 Yes [id number] 30mg Take 1 tablet by mouth in the morning and 1 tablet in the evening. [facility] dextroamphe tamine-amph etamine (ADDERALL) 30 mg tablet 2022-10 1 00:00: 00 09-10 00:00 :00 No [id number] 30mg Take 1 tablet by mouth in the morning and 1 tablet in the evening. [facility] dextroamphe tamine-amph etamine (ADDERALL) 30 mg tablet 2022-10 1 00:00: 00 Yes [id number] 30mg Take 1 tablet by mouth in the morning and 1 tablet in the evening. [facility] dextroamphe tamine-amph etamine (ADDERALL) 30 mg tablet 2022-10 0-23 00:00: 00 09-03 00:00 :00 No [id number] 30mg Take 1 tablet by mouth in the morning and 1 tablet in the evening. [facility] VENTOLIN HFA 90 mcg/actuati on inhaler 2022-10 0 00:00: 00 08-11 00:00 :00 No [id number] INHALE 2 PUFFS BY MOUTH EVERY 6 HOURS NEEDED FOR WHEEZING [facility] ketorolac (TORADOL) injection 30 mg 07-17 02:30: 00 07-17 01:48 :00 No [id number] [facility] traM[facility] 50 mg tablet 07-17 00:00: 00 Yes 50mg Take 1 tablet by mouth in the morning and 1 tablet in the evening. [facility] hydrOXYzine 50 mg tablet 07-16 00:00: 00 08-11 00:00 :00 No [id number] 50mg Take 1 tablet by mouth in the morning and 1 tablet at noon and 1 tablet in the evening. [facility] diphenhydrA MINE (BENADRYL) tablet 25 mg 07-15 09:45: 00 07-15 09:40 :00 No 25mg 25 mg, Oral, ONCE, 1 dose, On Fri07/15/23 at 0445, CAMILA [facility] dextroamphe tamine-amph etamine (ADDERALL) 30 mg tablet 07-07 00:00: 00 08-11 00:00 :00 No [id number] 30mg Take 1 tablet by mouth in the morning and 1 tablet in the evening. [facility] VENTOLIN HFA 90 mcg/actuati on inhaler 9-14 00:00: 00 07-28 00:00 :00 No [id number] INHALE 2 PUFFS BY MOUTH EVERY 6 HOURS NEEDED FOR WHEEZING [facility] dextroamphe tamine-amph etamine (ADDERALL) 30 mg tablet 21 00:00: 00 07-07 00:00 :00 No [id number] 30mg Take 1 tablet by mouth in the morning and 1 tablet in the evening. [facility] VENTOLIN HFA 90 mcg/actuati on inhaler 8-18 00:00: 00 07-03 00:00 :00 No [id number] INHALE 2 PUFFS BY MOUTH EVERY 6 HOURS NEEDED FOR WHEEZING [facility] VENTOLIN HFA 90 mcg/actuati on inhaler 7-22 00:00: 00 06-06 00:00 :00 No [id number] INHALE 2 PUFFS BY MOUTH EVERY 6 HOURS NEEDED FOR WHEEZING [facility] dextroamphe tamine-amph etamine (ADDERALL) 30 mg tablet 17 00:00: 00 06-09 00:00 :00 No [id number] 30mg Take 1 tablet by mouth in the morning and 1 tablet in the evening. [facility] VENTOLIN HFA 90 mcg/actuati on inhaler 6-20 00:00: 00 05-10 00:00 :00 No [id number] INHALE 2 PUFFS BY MOUTH EVERY 6 HOURS NEEDED FOR WHEEZING [facility] dextroamphe tamine-amph etamine (ADDERALL) 30 mg tablet 6-15 00:00: 00 05-05 00:00 :00 No [id number] 30mg Take 1 tablet by mouth in the morning and 1 tablet in the evening. [facility] dextroamphe tamine-amph etamine (ADDERALL) 30 mg tablet 5-22 00:00: 00 04-03 00:00 :00 No [id number] 30mg Take 1 tablet by mouth in the morning and 1 tablet in the evening. [facility] VENTOLIN HFA 90 mcg/actuati on inhaler 5-20 00:00: 00 04-08 00:00 :00 No [id number] INHALE 2 PUFFS BY MOUTH EVERY 6 HOURS NEEDED FOR WHEEZING [facility] ketorolac (TORADOL) injection 30 mg 4-21 15:45: 00 02-07 14:58 :00 No [id number] 30mg [facility] promethazin e-dextromet horphan 6.25-15 mg/5 mL syrup -21 00:00: 00 02-18 04:59 :00 No [id number] 5mL Take 5 mL by mouth 4 (four) times daily for 10 days. [facility] oseltamivir (TAMIFLU) 75 mg capsule 4-21 00:00: 00 02-13 04:59 :00 No [id number] 75mg Take 1 capsule by mouth in the morning and 1 capsule in the evening. Do all this for 5 days. [facility] traZODone 100 mg tablet 02-03 10:06: 00 02-03 00:00 :00 No 100mg Take 1 tablet by mouth at bedtime. [facility] dextroamphe tamine-amph etamine (ADDERALL) 30 mg tablet 02-03 00:00: 00 03-10 00:00 :00 No [id number] 30mg Take 1 tablet by mouth in the morning and 1 tablet in the evening. [facility] dextroamphe tamine-amph etamine (ADDERALL) 30 mg tablet -20 00:00: 00 02-03 00:00 :00 No [id number] 30mg Take 1 tablet by mouth in the morning and 1 tablet in the evening. [facility] promethazin e-dextromet horphan 6.25-15 mg/5 mL syrup 18 00:00: 00 01-15 04:59 :00 No [id number] 5mL Take 5 mL by mouth 4 (four) times daily for 10 days. [facility] traZODone 100 mg tablet 01-03 17:01: 55 Yes 100mg Take 1 tablet by mouth at bedtime. [facility] triamcinolo ne acetonide 0.1 % cream 17 00:00: 00 08-11 00:00 :00 No [id number] Apply to area(s) 2 (two) times daily. [facility] albuterol 90 mcg/actuati on inhaler 317 00:00: 00 06-06 00:00 :00 No [id number] 2{puff} Inhale 2 Puffs every 6 (six) hours as needed for Wheezing. [facility] benzonatate 100 mg capsule 317 00:00: 00 02-03 00:00 :00 No [id number] 200mg Take 2 capsules by mouth every 8 (eight) hours as needed for Cough. [facility] predniSONE 20 mg tablet 17 00:00: 00 01-09 04:59 :00 No [id number] 20mg Take 1 tablet by mouth in the morning for 5 days. [facility] albuterol (VENTOLIN HFA) 90 mcg/actuati on inhaler 314 00:00: 00 03-08 23:29 :11 No [id number] INHALE 2 PUFFS BY MOUTH EVERY 6 HOURS NEEDED FOR WHEEZING [facility] dextroamphe tamine-amph etamine (ADDERALL) 30 mg tablet 20 00:00: 00 01-06 00:00 :00 No [id number] 30mg Take 1 tablet by mouth in the morning and 1 tablet in the evening. [facility] azelastine 137 mcg (0.1 %) nasal spray 12-06 00:00: 00 08-11 00:00 :00 No [id number] 1{spray } Use 1 Mayer in each nostril in the morning and 1 Mayer in the evening. Use in each nostril as directed [facility] benzonatate (TESSALON PERLES) 100 mg capsule 17 00:00: 00 02-03 00:00 :00 No [id number] 100mg Take 1 capsule by mouth every 8 (eight) hours as needed for Cough. [facility] methylPREDN ISolone (MEDROL, ADAM,) 4 mg tablets 17 00:00: 00 02-03 00:00 :00 No [id number] Take by mouth SEE-INSTRU CTIONS. follow package directions [facility] albuterol 90 mcg/actuati on inhaler 12-06 00:00: 00 12-31 00:00 :00 No [id number] 2{puff} Inhale 2 Puffs every 6 (six) hours as needed for Wheezing. [facility] triamcinolo ne acetonide 0.1 % cream 2 00:00: 00 01-03 00:00 :00 No [id number] Apply to area(s) 2 (two) times daily. [facility] sulfamethox azole-trime thoprim 800-160 mg per tablet 11-19 00:00: 00 12-06 00:00 :00 No [facility] hydrOXYzine 25 mg tablet 11-15 00:00: 00 02-03 00:00 :00 No TAKE 1-2 TABLET BY MOUTH FOR SLEEP [facility] mupirocin 2 % ointment - 00:00: 00 02-03 00:00 :00 No APPLY SPARINGLY TOPICALLY TO THE AFFECTED AREA TWICE DAILY [facility] SENNA 8.6 mg tablet 11-13 00:00: 00 02-03 00:00 :00 No TAKE 2-4 TABLETS BY MOUTH DIRECTED NEEDED. DO NOT EXCEED 4 TABLETS IN 24 HOURS [facility] predniSONE 20 mg tablet 11-13 00:00: 00 12-06 00:00 :00 No 20mg Take 20 mg by mouth every morning. [facility] omeprazole 40 mg capsule - 00:00: 00 02-03 00:00 :00 No TAKE 1 CAPSULE BY MOUTH IN THE MORNING [facility] FAMOTIDINE 11-05 00:00: 00 No LAMOTRIGINE -12 00:00: 00 No dextroamphe tamine-amph etamine (ADDERALL) 30 mg tablet 1-11 00:00: 00 12-09 00:00 :00 No [id number] 30mg Take 1 tablet by mouth in the morning and 1 tablet in the evening. [facility] ACYCLOVIR 2021-10 00:00: 00 No acyclovir 400 mg tablet 2021-10 00:00: 00 02-03 00:00 :00 No 400mg Take 1 tablet by mouth every 8 (eight) hours. [facility] TAKE 1-2 TABLET(S) FOR SLEEP 2021-10 00:00: 00 No 25 TAKE 1 TABLET DAILY. 2021-10 00:00: 00 No 100 AMPHET/DEXT R 30MG Tablets 2021-10 00:00: 00 No dextroamphe tamine-amph etamine (ADDERALL) 30 mg tablet 2021-10 00:00: 00 Yes [id number] 30mg Take 1 tablet by mouth in the morning and 1 tablet in the evening. [facility] FAMOTIDINE 2021-10 00:00: 00 No OMEPRAZOLE 2021-10 00:00: 00 No BUSPIRONE 2021-10 2 00:00: 00 No TRAMADOL HCL 2021-10 00:00: 00 No dextroamphe tamine-amph etamine (ADDERALL) 30 mg tablet 2021-10 00:00: 00 10-10 00:00 :00 No [id number] 30mg Take 1 tablet by mouth in the morning and 1 tablet in the evening. [facility] TAKE 1 TABLET DAILY. 2021-10 00:00: [...] 1-16 00:00: 00 09-25 00:00 :00 No [id number] 20mg Take 1 tablet by mouth in the morning and 1 tablet in the evening. [facility] TRAZODONE 2021-10 0- 00:00: 00 No TRAZODONE 2021-1028 00:00: 00 No dextroamphe tamine-amph etamine (ADDERALL) 20 mg tablet 2021-10 0-24 00:00: 00 Yes [id number] 20mg Take 1 tablet by mouth in the morning and 1 tablet in the evening. [facility] diazePAM (VALIUM) injection 2 mg 2021-10 02:15: 00 08-08 02:20 :00 No 2mg 2 mg, Slow IV Push, ONCE, 1 dose, On Fri08/07/22 at 2115, STAT [facility] diazePAM (VALIUM) injection 2 mg 2021-10 01:45: 00 08-08 01:43 :00 No 2mg 2 mg, Slow IV Push, ONCE, 1 dose, On Fri08/07/22 at 2045, STAT [facility] NaCl 0.9% (NS) bolus infusion 1,000 mL 2021-10 22:00: 00 08-08 00:30 :00 No 1000mL at 999 mL/hr, 1,000 mL, IV Infusion, ONCE, 1 dose, On Fri08/07/22 at 1700, CAMILA [facility] diazePAM (VALIUM) tablet 5 mg 2021-10 22:00: 00 08-07 21:48 :00 No 5mg 5 mg, Oral, ONCE, 1 dose, On Fri08/07/22 at 1700, [facility] AZITHROMYCI N TAB 250MG 07-10 00:00: 00 No METRONIDAZO L TAB 500MG 07-10 00:00: 00 No traZODone 100 mg tablet 07-09 09:29: 11 Yes 100mg Take 100 mg by mouth at bedtime. [facility] clonazePAM 0.5 mg tablet 07-09 09:29: 09 07-09 00:00 :00 No .5mg Take 0.5 mg by mouth at bedtime. [facility] OXcarbazepi ne 300 mg tablet 07-09 09:28: 57 07-09 00:00 :00 No 300mg Take 300 mg by mouth at bedtime. [facility] amoxicillin -clavulanat e (AUGMENTIN) 875-125 mg per tablet 07-09 09:28: 22 07-09 00:00 :00 No 1{tbl} Take 1 tablet by mouth 2 (two) times daily. [facility] dextroamphe tamine-amph etamine (ADDERALL) 20 mg tablet 07-09 00:00: 00 08-12 00:00 :00 No [id number] 20mg Take 1 tablet by mouth in the morning and 1 tablet in the evening. [facility] TAKE 1 TABLET BY MOUTH ONCE DAILY 06-05 00:00: 00 No 10 METRONIDAZO L TAB 500MG 06-05 00:00: 00 No 500 AZITHROMYCI N TAB 250MG 06-05 00:00: 00 No 250 clonazePAM 0.5 mg tablet 06-04 13:20: 16 Yes .5mg Take 0.5 mg by mouth at bedtime. [facility] traZODone 50 mg tablet 06-04 13:19: 27 06-04 00:00 :00 No 50mg Take 50 mg by mouth at bedtime. [facility] lithium carbonate 300 mg tablet 06-04 13:17: 48 06-04 00:00 :00 No 900mg Take 900 mg by mouth at bedtime. [facility] dextroamphe tamine-amph etamine (ADDERALL) 20 mg tablet 06-04 00:00: 00 07-09 00:00 :00 No [id number] 20mg Take 1 tablet by mouth in the morning and 1 tablet in the evening. [facility] TAKE 1 TABLET BY MOUTH TWICE DAILY 2021-0 7-12 00:00: 00 No 20 &lt 2022-0 7-12 00:00: 00 No 100 benzonatate 100 mg capsule 2021-0 7-10 00:00: 00 08-16 00:00 :00 No [id number] 100mg Take 1 capsule by mouth 3 (three) times daily as needed for Cough. [facility] Lamictal 25 mg tablet 2021-0 6-30 [...] 2 tablets by mouth in the morning. [facility] Dose Unknown 2021-0 5-31 00:00: 00 No [...] tablet by mouth 2 (two) times daily. [facility] OXcarbazepi ne 300 mg tablet 07-18 15:10: 21 Yes 300mg Take 300 mg by mouth at bedtime. [facility] Lamictal 25 mg tablet 07-10 00:00: 00 No 1mg trazodone 50 mg tablet 07-10 00:00: 00 No 1mg Abilify 30 mg tablet 06-20 00:00: 00 No 1mg oxcarbazepi ne 600 mg tablet 06-20 00:00: 00 No 2mg lithium carbonate 300 mg capsule 06-20 00:00: 00 No 3mg benzonatate 100 mg capsule 05-05 00:00: 00 07-09 00:00 :00 No [id number] 100mg Take 1 capsule by mouth 3 (three) times daily as needed for Cough. [facility] Lamictal 25 mg tablet 04-27 00:00: 00 No 1mg hydroxyzine HCl 25 mg tablet 04-27 00:00: 00 No 1mg Lamictal 25 mg tablet 03-30 00:00: 00 No 1mg hydroxyzine HCl 25 mg tablet 03-30 00:00: 00 No 1mg pantoprazol e 40 mg EC tablet 03-28 00:00: 00 02-03 00:00 :00 No [id number] 40mg Take 1 tablet by mouth daily. [facility] Lamictal 25 mg tablet 2020-0 5-14 00:00: [...] SARS-COV-2 COVID-19 LUISANA/J&J VACCINE 2021-01-15 00:00:00 Completed [facility] SARS-COV-2 COVID-19 LUISANA/J&J VACCINE 2021-01-15 00:00:00 Completed [facility] SARS-COV-2 COVID-19 LUISANA/J&J VACCINE 2021-01-15 00:00:00 Completed [facility] SARS-COV-2 COVID-19 LUISANA/J&J VACCINE 2021-01-15 00:00:00 Completed [facility] SARS-COV-2 COVID-19 LUISANA/J&J VACCINE 2021-01-15 00:00:00 Completed [facility] SARS-COV-2 COVID-19 LUISANA/J&J VACCINE 2021-01-15 00:00:00 Completed [facility] SARS-COV-2 COVID-19 LUISANA/J&J VACCINE 2021-01-15 00:00:00 Completed [facility] SARS-COV-2 COVID-19 LUISANA/J&J VACCINE 2021-01-15 00:00:00 Completed [facility] SARS-COV-2 COVID-19 LUISANA/J&J VACCINE 2021-01-15 00:00:00 Completed [facility] SARS-COV-2 COVID-19 LUISANA/J&J VACCINE 2021-01-15 00:00:00 Completed [facility] SARS-COV-2 COVID-19 LUISANA/J&J VACCINE 2021-01-15 00:00:00 Completed [facility] SARS-COV-2 COVID-19 LUISANA/J&J VACCINE 2021-01-15 00:00:00 Completed [facility] SARS-COV-2 COVID-19 LUISANA/J&J VACCINE 2021-01-15 00:00:00 Completed [facility] SARS-COV-2 COVID-19 LUISANA/J&J VACCINE 2021-01-15 00:00:00 Completed [facility] SARS-COV-2 COVID-19 LUISANA/J&J VACCINE 2021-01-15 00:00:00 Completed [facility] SARS-COV-2 COVID-19 LUISANA/J&J VACCINE 2021-01-15 00:00:00 Completed [facility] SARS-COV-2 COVID-19 LUISANA/J&J VACCINE 2021-01-15 00:00:00 Completed [facility] SARS-COV-2 COVID-19 LUISANA/J&J VACCINE 2021-01-15 00:00:00 Completed [facility] SARS-COV-2 COVID-19 LUISANA/J&J VACCINE 2021-01-15 00:00:00 Completed [facility] SARS-COV-2 COVID-19 LUISANA/J&J VACCINE 2021-01-15 00:00:00 Completed [facility] SARS-COV-2 COVID-19 LUISANA/J&J VACCINE 2021-01-15 00:00:00 Completed [facility] SARS-COV-2 COVID-19 LUISANA/J&J VACCINE 2021-01-15 00:00:00 Completed [facility] SARS-COV-2 COVID-19 LUISANA/J&J VACCINE 2021-01-15 00:00:00 Completed [facility] SARS-COV-2 COVID-19 LUISANA/J&J VACCINE 2021-01-15 00:00:00 Completed [facility] SARS-COV-2 COVID-19 LUISANA/J&J VACCINE 2021-01-15 00:00:00 Completed [facility] SARS-COV-2 COVID-19 LUISANA/J&J VACCINE 2021-01-15 00:00:00 Completed [facility] SARS-COV-2 COVID-19 LUISANA/J&J VACCINE 2021-01-15 00:00:00 Completed [facility] SARS-COV-2 COVID-19 LUISANA/J&J VACCINE 2021-01-15 00:00:00 Completed [facility] SARS-COV-2 COVID-19 LUISANA/J&J VACCINE 2021-01-15 00:00:00 Completed [facility] SARS-COV-2 COVID-19 LUISANA/J&J VACCINE 2021-01-15 00:00:00 Completed [facility] SARS-COV-2 COVID-19 LUISANA/J&J VACCINE 2021-01-15 00:00:00 Completed [facility] SARS-COV-2 COVID-19 LUISANA/J&J VACCINE 2021-01-15 00:00:00 Completed [facility] SARS-COV-2 COVID-19 LUISANA/J&J VACCINE 2021-01-15 00:00:00 Completed [facility] SARS-COV-2 COVID-19 LUISANA/J&J VACCINE 2021-01-15 00:00:00 Completed [facility] SARS-COV-2 COVID-19 LUISANA/J&J VACCINE 2021-01-15 00:00:00 Completed [facility] SARS-COV-2 COVID-19 LUISANA/J&J VACCINE 2021-01-15 00:00:00 Completed [facility] SARS-COV-2 COVID-19 LUISANA/J&J VACCINE 2021-01-15 00:00:00 Completed [facility] SARS-COV-2 COVID-19 LUISANA/J&J VACCINE 2021-01-15 00:00:00 Completed [facility] SARS-COV-2 COVID-19 LUISANA/J&J VACCINE 2021-01-15 00:00:00 Completed [facility] SARS-COV-2 COVID-19 LUISANA/J&J VACCINE 2021-01-15 00:00:00 Completed [facility] SARS-COV-2 COVID-19 LUISANA/J&J VACCINE 2021-01-15 00:00:00 Completed [facility] SARS-COV-2 COVID-19 LUISANA/J&J VACCINE 2021-01-15 00:00:00 Completed [facility] SARS-COV-2 COVID-19 LUISANA/J&J VACCINE 2021-01-15 00:00:00 Completed [facility] SARS-COV-2 COVID-19 LUISANA/J&J VACCINE 2021-01-15 00:00:00 Completed [facility] SARS-COV-2 COVID-19 LUISANA/J&J VACCINE 2021-01-15 00:00:00 Completed [facility] SARS-COV-2 COVID-19 LUISANA/J&J VACCINE 2021-01-15 00:00:00 Completed [facility] SARS-COV-2 COVID-19 LUISANA/J&J VACCINE 2021-01-15 00:00:00 Completed [facility] SARS-COV-2 COVID-19 LUISANA/J&J VACCINE 2021-01-15 00:00:00 Completed [facility] SARS-COV-2 COVID-19 LUISANA/J&J VACCINE 2021-01-15 00:00:00 Completed [facility] SARS-COV-2 COVID-19 LUISANA/J&J VACCINE 2021-01-15 00:00:00 Completed [facility] SARS-COV-2 COVID-19 LUISANA/J&J VACCINE Unknown Completed [facility] SARS-COV-2 COVID-19 LUISANA/J&J VACCINE Unknown Completed [facility] SARS-COV-2 COVID-19 LUISANA/J&J VACCINE Unknown Completed [facility] SARS-COV-2 COVID-19 LUISANA/J&J VACCINE Unknown Completed [facility] SARS-COV-2 COVID-19 LUISANA/J&J VACCINE Unknown Completed [facility] SARS-COV-2 COVID-19 LUISANA/J&J VACCINE Unknown Completed [facility] SARS-COV-2 COVID-19 LUISANA/J&J VACCINE Unknown Completed [facility] SARS-COV-2 COVID-19 LUISANA/J&J VACCINE Unknown Completed [facility] SARS-COV-2 COVID-19 LUISANA/J&J VACCINE Unknown Completed [facility] SARS-COV-2 COVID-19 LUISANA/J&J VACCINE Unknown Completed [facility] SARS-COV-2 COVID-19 LUISANA/J&J VACCINE Unknown Completed [facility] SARS-COV-2 COVID-19 LUISANA/J&J VACCINE Unknown Completed [facility] SARS-COV-2 COVID-19 LUISANA/J&J VACCINE Unknown Completed [facility] SARS-COV-2 COVID-19 LUISANA/J&J VACCINE Unknown Completed [facility] SARS-COV-2 COVID-19 LUISANA/J&J VACCINE Unknown Completed [facility] SARS-COV-2 COVID-19 LUISANA/J&J VACCINE Unknown Completed [facility] SARS-COV-2 COVID-19 LUISANA/J&J VACCINE Unknown Completed [facility] SARS-COV-2 COVID-19 LUISANA/J&J VACCINE Unknown Completed [facility] SARS-COV-2 COVID-19 LUISANA/J&J VACCINE Unknown Completed [facility] SARS-COV-2 COVID-19 LUISANA/J&J VACCINE Unknown Completed [facility] SARS-COV-2 COVID-19 LUISANA/J&J VACCINE Unknown Completed [facility] SARS-COV-2 COVID-19 LUISANA/J&J VACCINE Unknown Completed [facility] SARS-COV-2 COVID-19 LUISANA/J&J VACCINE Unknown Completed [facility] SARS-COV-2 COVID-19 LUISANA/J&J VACCINE Unknown Completed [facility] SARS-COV-2 COVID-19 LUISANA/J&J VACCINE Unknown Completed [facility] SARS-COV-2 COVID-19 LUISANA/J&J VACCINE Unknown Completed [facility] SARS-COV-2 COVID-19 LUISANA/J&J VACCINE Unknown Completed [facility] SARS-COV-2 COVID-19 LUISANA/J&J VACCINE Unknown Completed [facility] SARS-COV-2 COVID-19 LUISANA/J&J VACCINE Unknown Completed [facility] SARS-COV-2 COVID-19 LUISANA/J&J VACCINE Unknown Completed [facility] SARS-COV-2 COVID-19 LUISANA/J&J VACCINE Unknown Completed [facility] SARS-COV-2 COVID-19 LUISANA/J&J VACCINE Unknown Completed [facility] SARS-COV-2 COVID-19 LUISANA/J&J VACCINE Unknown Completed [facility] SARS-COV-2 COVID-19 LUISANA/J&J VACCINE Unknown Completed [facility] SARS-COV-2 COVID-19 LUISANA/J&J VACCINE Unknown Completed [facility] SARS-COV-2 COVID-19 LUISANA/J&J VACCINE Unknown Completed [facility] SARS-COV-2 COVID-19 LUISANA/J&J VACCINE Unknown Completed [facility] Vital Signs Vital Name Observation Time Observation Value Comments S ource Systolic blood pressure 2024-01-07 20:03:00 148 mm[Hg] [facility] Diastolic blood pressure 2024-01-07 20:03:00 89 mm[Hg] [facility] Heart rate 2024-01-07 20:02:00 87 /min [facility] Body temperature 2024-01-07 20:02:00 36.61 Annia [facility] Body height 2024-01-07 20:02:00 162.6 cm [facility] acute hospital Body weight 2024-01-07 20:02:00 65.318 kg [facility] acute hospital BMI 2024-01-07 20:02:00 24.72 kg/m2 [facility] acute hospital Systolic blood pressure 2024-01-04 20:56:00 126 mm[Hg] [facility] Diastolic blood pressure 2024-01-04 20:56:00 80 mm[Hg] [facility] Heart rate 2024-01-04 20:56:00 71 /min [facility] Body temperature 2024-01-04 20:56:00 36.72 Annia [facility] Respiratory rate 2024-01-04 20:56:00 20 /min [facility] Body height 2024-01-04 20:56:00 162.6 cm [facility] Body weight 2024-01-04 20:56:00 67.631 kg [facility] BMI 2024-01-04 20:56:00 25.59 kg/m2 [facility] Oxygen saturation in Arterial blood by Pulse oximetry 2024-01-04 20:56:00 100 /min [facility] Systolic blood pressure 2023-10-16 22:45:00 126 mm[Hg] [facility] Diastolic blood pressure 2023-10-16 22:45:00 79 mm[Hg] [facility] Heart rate 2023-10-16 22:45:00 94 /min [facility] Body temperature 2023-10-16 22:45:00 37.06 Annia [facility] Body height 2023-10-16 22:45:00 162.6 cm [facility] Body weight 2023-10-16 22:45:00 63.095 kg [facility] BMI 2023-10-16 22:45:00 23.88 kg/m2 [facility] Oxygen saturation in Arterial blood by Pulse oximetry 2023-10-16 22:45:00 99 /min [facility] Systolic blood pressure 2023-08-11 18:07:00 121 mm[Hg] [facility] Diastolic blood pressure 2023-08-11 18:07:00 80 mm[Hg] [facility] Heart rate 2023-08-11 18:07:00 96 /min [facility] Body height 2023-08-11 18:07:00 162.6 cm [facility] Body weight 2023-08-11 18:07:00 64.411 kg [facility] BMI 2023-08-11 18:07:00 24.37 kg/m2 [facility] Heart rate 2023-07-17 01:37:00 102 /min [facility] Respiratory rate 2023-07-17 01:37:00 17 /min [facility] Body weight 2023-07-17 01:37:00 65.998 kg [facility] BMI 2023-07-17 01:37:00 24.98 kg/m2 [facility] Oxygen saturation in Arterial blood by Pulse oximetry 2023-07-17 01:37:00 98 /min [facility] Systolic blood pressure 2023-07-15 09:08:00 152 mm[Hg] [facility] Diastolic blood pressure 2023-07-15 09:08:00 106 mm[Hg] [facility] Heart rate 2023-07-15 09:08:00 62 /min [facility] Body temperature 2023-07-15 09:08:00 37.22 Annia [facility] Respiratory rate 2023-07-15 09:08:00 18 /min [facility] Body height 2023-07-15 09:08:00 162.6 cm [facility] Body weight 2023-07-15 09:08:00 67.132 kg [facility] acute hospital BMI 2023-07-15 09:08:00 25.40 kg/m2 [facility] acute hospital Oxygen saturation in Arterial blood by Pulse oximetry 2023-07-15 09:08:00 100 /min [facility] Systolic blood pressure 2023-02-15 22:41:00 109 mm[Hg] [facility] Diastolic blood pressure 2023-02-15 22:41:00 72 mm[Hg] [facility] Heart rate 2023-02-15 22:41:00 87 /min [facility] Body temperature 2023-02-15 22:41:00 36.83 Annia [facility] Respiratory rate 2023-02-15 22:41:00 18 /min [facility] Body height 2023-02-15 22:41:00 162.6 cm [facility] 2023-02-15 22:41:00 68.947 kg [facility] acute hospital BMI 2023-02-15 22:41:00 26.09 kg/m2 [facility] acute hospital Oxygen saturation in Arterial blood by Pulse oximetry 2023-02-15 22:41:00 96 /min [facility] Systolic blood pressure 2023-02-07 14:41:00 124 mm[Hg] [facility] Diastolic blood pressure 2023-02-07 14:41:00 83 mm[Hg] [facility] Heart rate 2023-02-07 14:41:00 94 /min [facility] Body temperature 2023-02-07 14:41:00 36.67 Annia [facility] Body height 2023-02-07 14:41:00 162.6 cm [facility] acute hospital Body weight 2023-02-07 14:41:00 69.718 kg [facility] acute hospital BMI 2023-02-07 14:41:00 26.38 kg/m2 [facility] acute hospital Oxygen saturation in Arterial blood by Pulse oximetry 2023-02-07 14:41:00 98 /min [facility] Systolic blood pressure 2023-02-03 14:53:00 125 mm[Hg] [facility] Diastolic blood pressure 2023-02-03 14:53:00 68 mm[Hg] [facility] Heart rate 2023-02-03 14:53:00 79 /min [facility] Body temperature 2023-02-03 14:53:00 36.33 Annia [facility] Body height 2023-02-03 14:53:00 162.6 cm [facility] Body weight 2023-02-03 14:53:00 68.629 kg General acute hospital BMI 2023-02-03 14:53:00 25.97 kg/m2 [facility] acute hospital Oxygen saturation in Arterial blood by Pulse oximetry 2023-02-03 14:53:00 100 /min [facility] Systolic blood pressure 2023-01-03 21:59:00 133 mm[Hg] [facility] Diastolic blood pressure 2023-01-03 21:59:00 87 mm[Hg] [facility] Heart rate 2023-01-03 21:59:00 109 /min [facility] Body temperature 2023-01-03 21:59:00 36.89 Annia [facility] Respiratory rate 2023-01-03 21:59:00 17 /min [facility] Body weight 2023-01-03 21:59:00 70.308 kg [facility] BMI 2023-01-03 21:59:00 26.61 kg/m2 [facility] Oxygen saturation in Arterial blood by Pulse oximetry 2023-01-03 21:59:00 98 /min [facility] Systolic blood pressure 2022-12-06 15:29:00 132 mm[Hg] [facility] Diastolic blood pressure 2022-12-06 15:29:00 85 mm[Hg] [facility] Body temperature 2022-12-06 15:29:00 37.11 Annia [facility] Body height 2022-12-06 15:29:00 162.6 cm [facility] acute hospital Body weight 2022-12-06 15:29:00 68.947 kg [facility] acute hospital BMI 2022-12-06 15:29:00 26.09 kg/m2 [facility] acute hospital Oxygen saturation in Arterial blood by Pulse oximetry 2022-12-06 15:29:00 99 /min [facility] Systolic blood pressure 2022-11-20 21:39:00 106 mm[Hg] [facility] Diastolic blood pressure 2022-11-20 21:39:00 63 mm[Hg] [facility] Heart rate 2022-11-20 21:39:00 118 /min [facility] Body temperature 2022-11-20 21:39:00 36.72 Annia [facility] Body height 2022-11-20 21:39:00 162.6 cm [facility] Body weight 2022-11-20 21:39:00 68.04 kg [facility] BMI 2022-11-20 21:39:00 25.75 kg/m2 [facility] Oxygen saturation in Arterial blood by Pulse oximetry 2022-11-20 21:39:00 99 /min [facility] Systolic blood pressure 2022-09-25 17:10:00 120 mm[Hg] [facility] Diastolic blood pressure 2022-09-25 17:10:00 80 mm[Hg] [facility] Heart rate 2022-09-25 17:10:00 92 /min [facility] Body height 2022-09-25 17:10:00 162.6 cm [facility] acute hospital Body weight 2022-09-25 17:10:00 64.864 kg [facility] acute hospital BMI 2022-09-25 17:10:00 24.55 kg/m2 [facility] acute hospital Systolic blood pressure 2022-08-08 02:23:00 122 mm[Hg] [facility] Diastolic blood pressure 2022-08-08 02:23:00 78 mm[Hg] [facility] Heart rate 2022-08-08 02:23:00 76 /min [facility] Body temperature 2022-08-08 02:23:00 36.67 Annia [facility] Respiratory rate 2022-08-08 02:23:00 19 /min [facility] Oxygen saturation in Arterial blood by Pulse oximetry 2022-08-08 02:23:00 96 /min [facility] Body height 2022-08-07 20:26:00 162.6 cm [facility] acute hospital Body weight 2022-08-07 20:26:00 64.1 kg General acute hospital BMI 2022-08-07 20:26:00 24.26 kg/m2 [facility] acute hospital Systolic blood pressure 2022-07-09 14:25:00 139 mm[Hg] [facility] Diastolic blood pressure 2022-07-09 14:25:00 94 mm[Hg] [facility] Heart rate 2022-07-09 14:25:00 88 /min [facility] Body height 2022-07-09 14:25:00 162.6 cm [facility] acute hospital Body weight 2022-07-09 14:25:00 65.318 kg [facility] acute hospital BMI 2022-07-09 14:25:00 24.72 kg/m2 [facility] acute hospital Systolic blood pressure 2022-06-04 18:16:00 115 mm[Hg] [facility] Diastolic blood pressure 2022-06-04 18:16:00 74 mm[Hg] [facility] Body height 2022-06-04 18:16:00 162.6 cm [facility] acute hospital Body weight 2022-06-04 18:16:00 64.864 kg General acute hospital BMI 2022-06-04 18:16:00 24.55 kg/m2 General acute hospital BP Systolic 2022-11-12 09:56:00 119 mm[Hg] BP [...] / Time Performed Performing Clinicia n Source [facility] PATIENT FINANCIAL POLICY 2024-01-04 20:47:36 Doctor Unassigned, [place] [facility] POCT MOLECULAR FLU 2023-10-16 22:59:00 Gaby Palma [facility] POCT MOLECULAR STREP 2023-10-16 22:51:00 Annamaria Palma [facility] POCT SARS-COV-2 ANTIGEN (BINAX NOW) 2023-10-16 00:00:00 Gaby Palma [facility] ASSIGNMENT OF BENEFITS 2023-08-11 18:02:12 Docto r Unassigned, [place] [facility] NOTICE OF PRIVACY PRACTICES 2023-07-15 09:02:01 Doctor Unassigned, [place] [facility] CONSENT/REFUSAL FOR DIAGNOSIS AND TREATMENT 2023-07-15 09:01:33 Doctor Unassigned, [place] [facility] POCT SARS-COV-2 ANTIGEN (BINAX NOW) 2023-02-07 15:13:00 Vivienne Holt [facility] POCT MOLECULAR FLU 2023-02-07 15:06:00 Unknown, Attend ing [facility] POCT MOLECULAR STREP 2023-02-07 14:52:00 Unknown, [facility] PATIENT FINANCIAL POLICY 2023-01-03 21:48:53 Doctor Unassigned, [place] [facility] EXTERNAL PROVIDER RECORDS 2022-12-24 06:01:00 Doctor Unassigned, [place] [facility] CREATINE KINASE 2022-08-07 21:44:00 Mila Keys [facility] LIPASE 2022-08-07 21:44:00 Mila Keys [facility] TEST, SERUM 2022-08-07 21:44:00 Anaid Keys [facility] TROPONIN I 2022-08-07 21:44:00 Mila Keys [facility] HEPATIC FUNCTION PANEL (53670) (ALB,T.PRO,BILI T,BU/BC,ALT,AST,ALK PHOS) 2022-08-07 21:44:00 Mila Keys [facility] BASIC METABOLIC PANEL (NA, K, CL, CO2, GLUCOSE, BUN, CREATININE, CA) 2022-08-07 21:44:00 Jamar Mila [facility] SALICYLATE 2022-08-07 21:44:00 Mila Keys [facility] ETHANOL 2022-08-07 21:44:00 Mila Keys [facility] CBC WITH DIFF 2022-08-07 [facility]:44[facility] Activity Planned Date Details Comments Source Goal Plan of Care Note [code = 20371-1] Goal Plan of Care Note [code = 05853-2] Goal Plan of Care Note [code = 03432-8] Goal Plan of Care Note [code = 99780-1] Goal Plan of Care Note [code = 36157-7] Goal Plan of Care Note [code = 73959-8] Goal Plan of Care Note [code = 25254-6] Goal Plan of Care Note [code = 89993-1] Goal Plan of Care Note [code = 12735-1] Goal Plan of Care Note [code = 54339-3] Goal Plan of Care Note [code = 42067-2] Goal Plan of Care Note [code = 80516-0] Goal Plan of Care Note [code = 68645-3] Goal Plan of Care Note [code = 69918-0] Goal Plan of Care Note [code = 41758-9] Goal Plan of Care Note [code = 35999-8] Goal Plan of Care Note [code = 74168-2] Goal Plan of Care Note [code = 23692-8] Goal Plan of Care Note [code = 87303-2] Goal Plan of Care Note [code = 70271-0] Goal Plan of Care Note [code = 47627-7] Goal Plan of Care Note [code = 94413-3] Goal Plan of Care Note [code = 40239-2] Goal Plan of Care Note [code = 55615-4] Goal Plan of Care Note [code = 91250-7] Goal Plan of Care Note [code = 93562-3] Goal Plan of Care Note [code = 70253-2] Goal Plan of Care Note [code = 35233-1] Goal Plan of Care Note [code = 25640-8] Goal Plan of Care Note [code = 95479-0] Goal Plan of Care Note [code = 91953-6] Goal Plan of Care Note [code = 61736-6] Goal Plan of Care Note [code = 97054-8] Encounters Start Date/Time End Date/Time Encounter Type Admission Type Attending Clinicians Care Facility Care Department Encounter ID Source 2021-08-20 08:51:37 Emergency [id number] 2024-03-08 00:00:00 2024-03-08 11:42:52 Laura Perez [facility] [place] 1.2.840.114 350.1.13.10 4.2.7.2.686 [id number] [facility] 2024-02-11 00:00:00 2024-02-11 00:00:00 Refill Laura Beltran [facility] 1.84.114 350.1.13.10 4.2.7.2.686 [id number] [facility] 2024-01-14 14:30:00 2024-01-14 14:30:00 Outpatient R ENEIDA CANNON [facility] [id number] [facility] 2024-01-07 15:15:00 2024-01-07 15:30:00 Office Visit Laura Beltran [facility] 1.84114 350.1.13.10 4.2.7.2.686 [id number] [facility] 2024-01-07 15:15:00 2024-01-07 15:15:00 Outpatient R LAURA BELTRAN [facility] [id number] [facility] 2024-01-04 15:40:00 2024-01-04 16:00:00 Urgent Care Vivienne Holt Unknown, Attending [facility] 1.84.114 350.1.13.10 4.2.7.2.686 [id number] [facility] 2024-01-04 15:40:00 2024-01-04 15:40:00 Outpatient R VIVIENNE HOLT [facility] [id number] [facility] 2024-01-04 00:00:00 2024-01-04 00:00:00 Orders Only Doctor Unassigned, [place] [facility] 1.84114 350.1.13.10 4.2.7.2.686 [id number] [facility] 2024-01-01 00:00:00 2024-01-01 00:00:00 Refill Ruby Laura [facility] [place]?[facility] 1.2.840.114 350.1.13.10 4.2.7.2.686 [id number] [facility] 2023-12-29 00:00:00 2023-12-29 00:00:00 Letter (Out) [facility] 1.840.114 350.1.13.10 4.2.7.2.686 [id number] [facility] 2023-12-24 00:00:00 2023-12-24 00:00:00 Telephone [facility] 1..840.114 350.1.13.10 4.2.7.2.686 [id number] [facility] 2023-12-15 09:30:00 2023-12-15 09:30:00 Outpatient R LAURA BELTRAN [facility] [id number] [facility] 2023-12-11 00:00:00 2023-12-11 00:00:00 [facility] 1..840.114 350.1.13.10 4.2.7.2.686 [id number] [facility] 2023-12-11 00:00:00 2023-12-11 00:00:00 Telephone Ruby Laura [facility] [place]?[facility] 1..840.114 350.1.13.10 4.2.7.2.686 [id number] [facility] 2023-12-09 00:00:00 2023-12-09 00:00:00 Telephone [facility] 1.2.840.114 350.1.13.10 4.2.7.2.686 [id number] [facility] 2023-12-08 00:00:00 2023-12-08 00:00:00 Refill Laura Beltran [facility] [place] 1.2.840.114 350.1.13.10 4.2.7.2.686 [id number] [facility] 2023-12-04 00:00:00 2023-12-04 00:00:00 Telephone Laura Beltran [facility] [place] 1.2.840.114 350.1.13.10 4.2.7.2.686 [id number] [facility] 2023-11-27 00:00:00 2023-11-27 00:00:00 Telephone Laura Beltran [facility] [place] 1.2.840.114 350.1.13.10 4.2.7.2.686 [id number] [facility] 2023-11-10 15:40:11 2023-11-10 15:40:11 Outpatient [facility] [id number] Ignacio Heredia 2023-11-08 00:00:00 2023-11-08 00:00:00 Telephone Laura Beltran [facility] 1.2.840.114 350.1.13.10 4.2.7.2.686 [id number] [facility] 2023-10-16 16:40:00 2023-10-16 17:06:52 Outpatient GABY GONZALEZ [facility] [id number] [facility] 2023-10-16 16:40:00 2023-10-16 17:06:52 Office Visit Gaby Palma [facility] [place]?[facility] BUILDING 1.2840.114 350.1.13.10 4.2.7.2.686 [id number] 044 [id number] [facility] 2023-10-08 00:00:00 2023-10-08 00:00:00 Telephone Laura Beltran [facility] OFF[facility] BUILDING 1.2.840.114 350.1.13.10 4.2.7.2.686 [id number] 044 [id number] [facility] 2023-10-06 00:00:00 2023-10-06 00:00:00 Refill Laura Beltran [facility] 1.2840.114 350.1.13.10 4.2.7.2.686 [id number] 044 [id number] [facility] 2023-10-06 00:00:00 2023-10-06 00:00:00 Telephone Laura [facility]an [facility] 1.2840.114 350.1.13.10 4.2.7.2.686 [id number] 044 [id number] [facility] 2023-09-17 00:00:00 2023-09-17 00:00:00 Refill Laura [facility]tran [facility] 1.2840.114 350.1.13.10 4.2.7.2.686 [id number] 044 [id number] [facility] 2023-09-10 00:00:00 2023-09-10 00:00:00 Refill Laura Beltran [facility] 1.2840.114 350.1.13.10 4.2.7.2.686 [id number] 044 [id number] [facility] 2023-09-09 00:00:00 2023-09-09 00:00:00 Telephone Laura Beltran [facility] 1..840.114 350.1.13.10 4.2.7.2.686 [id number] 044 [id number] [facility] 2023-09-05 00:00:00 2023-09-05 00:00:00 Telephone Laura Beltran [facility] 1..840.114 350.1.13.10 4.2.7.2.686 [id number] 044 [id number] [facility] 2023-09-03 00:00:00 2023-09-03 00:00:00 Refill Aguilanoryartie [facility] 1.840.114 350.1.13.10 4.2.7.2.686 [id number] 044 [id number] [facility] 2023-08-11 13:00:00 2023-08-11 13:23:48 Outpatient R LAURA BELTRAN [facility] [id number] [facility] 2023-08-11 13:00:00 2023-08-11 13:23:48 [facility] 1..840.114 350.1.13.10 4.2.7.2.686 [id number] 044 [id number] [facility] 2023-08-11 00:00:00 2023-08-11 00:00:00 Orders Only Doctor Unassigned, Hartsel [facility] 1.84.114 350.1.13.10 4.2.7.2.686 [id number] [facility] 2023-08-05 00:00:00 2023-08-05 00:00:00 Refill Laura Beltran [facility] 1.840.114 350.1.13.10 4.2.7.2.686 [id number] 044 [id number] [facility] 2023-07-26 00:00:00 2023-07-26 00:00:00 Laura Perez [facility] 1.840.114 350.1.13.10 4.2.7.2.686 [id number] 044 [id number] [facility] 2023-07-24 10:45:00 2023-07-24 10:45:00 Outpatient MAIKEL HINDS [facility] [id number] [facility] 2023-07-16 20:20:00 2023-07-16 20:40:00 Urgent Care Vivienne Holt Unknown, Attending [facility] 1.840.114 350.1.13.10 4.2.7.2.686 [id number] 370 [id number] [facility] 2023-07-16 20:20:00 2023-07-16 20:20:00 Outpatient R VIVIENNE HOLT [facility] [id number] [facility] 2023-07-15 04:10:00 2023-07-15 04:44:00 Emergency X [facility] ERT [id number] [facility] 2023-07-15 04:10:00 2023-07-15 04:44:00 Emergency Joshua Strongdorysfabi[facility] 1.84.114 350.1.13.10 4.2.7.2.686 [id number] [id number] [facility] 2023-07-03 00:00:00 2023-07-03 00:00:00 Laura Perez [facility] 1.840.114 350.1.13.10 4.2.7.2.686 [id number] 044 [id number] [facility] 2023-07-03 00:00:00 2023-07-03 00:00:00 Laura Perez [facility] 1.2840.114 350.1.13.10 4.2.7.2.686 [id number] 044 [id number] [facility] 2023-06-16 00:00:00 2023-06-16 00:00:00 Laura Cosby [facility] PROFESSIO NAL BUILDING 1.2840.114 350.1.13.10 4.2.7.2.686 [id number] 044 [id number] [facility] 2023-06-09 00:00:00 2023-06-09 00:00:00 [facility] 1.2840.114 350.1.13.10 4.2.7.2.686 [id number] 044 [id number] [facility] 2023-06-06 00:00:00 2023-06-06 00:00:00 Ming Beltran [facility] HI?[facility] 1.2840.114 350.1.13.10 4.2.7.2.686 [id number] 044 [id number] [facility] 2023-06-04 10:00:00 2023-06-04 10:00:00 Outpatient LAURA AMADOR [facility] [id number] [facility] 2023-05-23 16:51:14 2023-05-23 23:59:00 Hospital Encounter Dorothea Feroz Greg [facility] 1.2840.114 350.1.13.10 4.2.7.2.686 [id number] [facility] 2023-05-23 16:50:23 2023-05-23 16:50:00 Outpatient R FEROZ BARAKAT [facility] [id number] [facility] 2023-05-23 16:30:00 2023-05-23 16:50:00 Hospital Encounter Feroz Barakat S [facility] 1.2.840.114 350.1.13.10 4.2.7.2.686 [id number] [facility] 2023-05-13 00:00:00 2023-05-13 00:00:00 Patient Secure Msg Doctor Unassigned, Hartsel [facility] MEDICAL OFFICE BUILDING 1..840.114 350.1.13.10 4.2.7.2.686 [id number] 044 [id number] [facility] 2023-05-10 00:00:00 2023-05-10 00:00:00 Refill [facility]tr[facility] OFFICE BUILDING 1..840.114 350.1.13.10 4.2.7.2.686 [id number] 044 [id number] [facility] 2023-05-07 00:00:00 2023-05-07 00:00:00 Patient Secure Msg Doctor Unassigned, Hartsel [facility] PROFESSIO NAL BUILDING 1.2.840.114 350.1.13.10 4.2.7.2.686 [id number] [facility] 2023-05-05 00:00:00 2023-05-05 00:00:00 Telephone Laura Beltran [facility] MEDICAL OFFICE BUILDING 1.2.840.114 350.1.13.10 4.2.7.2.686 [id number] 044 [id number] [facility] 2023-05-02 00:00:00 2023-05-02 00:00:00 Outpatient FEROZ MACHADO [facility] [id number] [facility] 2023-04-25 00:00:00 2023-04-25 00:00:00 [facility] [id number] [facility] 2023-04-08 00:00:00 2023-04-08 00:00:00 Refill Laura Beltran [facility] OFF[facility] BUILDING 1.2840.114 350.1.13.10 4.2.7.2.686 [id number] 044 [id number] [facility] 2023-04-03 00:00:00 2023-04-03 00:00:00 Refill Ruby [facility] HI?[facility] OFF[facility] BUILDING 1.2840.114 350.1.13.10 4.2.7.2.686 [id number] 044 [id number] [facility] 2023-03-10 00:00:00 2023-03-10 00:00:00 Telephone Laura Beltran [facility] HI?[facility] MEDICAL OFFICE BUILDING 1.2840.114 350.1.13.10 4.2.7.2.686 [id number] 044 [id number] [facility] 2023-03-08 00:00:00 2023-03-08 00:00:00 Refill Laura Beltran [facility] BUILD[facility] 1.2840.114 350.1.13.10 4.2.7.2.686 [id number] 044 [id number] [facility] 2023-03-07 00:00:00 2023-03-07 00:00:00 Refill Laura Beltran [facility] OFF[facility] BUILDING 1.2840.114 350.1.13.10 4.2.7.2.686 [id number] 044 [id number] [facility] 2023-03-07 00:00:00 2023-03-07 00:00:00 Telephone Laura Beltran [facility] BUILDING 1.2.840.114 350.1.13.10 4.2.7.2.686 [id number] 044 [id number] [facility] 2023-02-17 00:00:00 2023-02-17 00:00:00 Telephone Laura Beltran [facility] BUILDING 1..840.114 350.1.13.10 4.2.7.2.686 [id number] 044 [id number] [facility] 2023-02-15 17:30:00 2023-02-15 17:41:47 Outpatient R YESSENIA CALL [facility] [id number] [facility] 2023-02-15 17:30:00 2023-02-15 17:41:47 Nurse Visit Nurse, Jose Petty [facility]gent Care Unknown, Attending Je [facility] MEDICAL OFFICE BUILDING 1.2.840.114 350.1.13.10 4.2.7.2.686 [id number] 370 [id number] [facility] 2023-02-15 17:20:00 2023-02-15 17:20:00 Outpatient R UNKNOWN, ATTENDING [facility] [id number] [facility] 2023-02-07 09:20:00 2023-02-07 09:40:00 Urgent Care Vivienne Holt Unknown, Attending [facility] MEDICAL OFFICE BUILDING 1.2.840.114 350.1.13.10 4.2.7.2.686 [id number] 370 [id number] [facility] 2023-02-07 09:20:00 2023-02-07 09:20:00 Outpatient R UNKNOWN, ATTENDING VIVIENNE HOLT [facility] [id number] [facility] 2023-02-03 10:15:00 2023-02-03 10:30:00 Office Visit Laura Beltran [facility] MEDICAL OFFICE BUILDING 1.2.840.114 350.1.13.10 4.2.7.2.686 [id number] [facility] 2023-02-03 10:15:00 2023-02-03 10:15:00 Outpatient R LAURA BELTRAN [facility] [id number] [facility] 2023-01-23 10:00:00 2023-01-23 10:00:00 Outpatient LAURA AMADOR [facility] [id number] [facility] 2023-01-06 00:00:00 2023-01-06 00:00:00 Refill Laura Beltran [facility] MEDICAL OFFICE BUILDING 1.2.840.114 350.1.13.10 4.2.7.2.686 [id number] [facility] 2023-01-04 00:00:00 2023-01-04 00:00:00 Telephone Provider, Jose Petty Urgent Care [facility] MEDICAL OFFICE BUILDING 1.2.840.114 350.1.13.10 4.2.7.2.686 [id number] 370 [id number] [facility] 2023-01-03 16:40:00 2023-01-03 17:14:19 Outpatient R FLOR INFANTE [facility] [id number] [facility] 2023-01-03 16:40:00 2023-01-03 17:14:19 Urgent Care Flor Infante Unknown, Attending [facility] MEDICAL OFFICE BUILDING 1.2.840.114 350.1.13.10 4.2.7.2.686 [id number] 370 [id number] [facility] 2023-01-03 00:00:00 2023-01-03 00:00:00 Orders Only Doctor Unassigned, Hartsel [facility] 1.2840.114 350.1.13.10 4.2.7.2.686 [id number] [facility] 2023-01-03 00:00:00 2023-01-03 00:00:00 Letter (Out) NareshFlor [facility] MEDICAL OFFICE BUILDING 1.2840.114 350.1.13.10 4.2.7.2.686 [id number] 370 [id number] [facility] 2023-01-02 00:00:00 2023-01-02 00:00:00 Refill Laura Beltran [facility] MEDICAL OFFICE BUILDING 1.2.840.114 350.1.13.10 4.2.7.2.686 [id number] 044 [id number] [facility] 2022-12-28 00:00:00 2022-12-28 00:00:00 Refill Trena Wyatt [facility] MEDICAL OFFICE BUILDING 1.2840.114 350.1.13.10 4.2.7.2.686 [id number] 044 [id number] [facility] 2022-12-26 00:00:00 2022-12-26 00:00:00 Outpatient STU BORGES [facility] [id number] [facility] 2022-12-24 00:00:00 2022-12-24 00:00:00 Orders Only Doctor Unassigned, Hartsel [facility] 1.2840.114 350.1.13.10 4.2.7.2.686 [id number] [facility] 2022-12-06 09:30:00 2022-12-06 09:56:07 Outpatient R TRENA WYATT [facility] [id number] [facility] 2022-12-06 09:30:00 2022-12-06 09:56:07 Office Visit Trena Wyatt [facility] HI?[facility] 1.2.840.114 350.1.13.10 4.2.7.2.686 [id number] [id number] [facility] 2022-12-06 07:00:00 2022-12-06 07:00:00 Outpatient R TRENA WYATT [facility] [id number] [facility] 2022-12-05 00:00:00 2022-12-05 00:00:00 Refill Laura Beltran [facility] MED[facility] OFF[facility] BUILDING 1..840.114 350.1.13.10 4.2.7.2.686 [id number] [id number] [facility] 2022-11-20 15:30:00 2022-11-20 16:22:49 Outpatient R FAUSTOVAUGHN Oh [facility] [id number] [facility] 2022-11-20 15:30:00 2022-11-20 16:22:49 Office Visit Faustoalthea Vaughn [facility] HI?[facility] 1.2.840.114 350.1.13.10 4.2.7.2.686 [id number] [id number] [facility] 2022-11-19 09:30:00 2022-11-19 09:30:00 Outpatient R ARNEL ALARCON [facility] [id number] [facility] 2022-11-14 11:59:29 2022-11-14 11:59:29 Outpatient [facility] [id number] Ignacio F Yan 2022-11-13 00:00:00 2022-11-13 00:00:00 Telephone Laura Beltran [facility] MED[facility] OFFICE BUILDING 1.2.840.114 350.1.13.10 4.2.7.2.686 [id number] [facility] 2022-11-12 09:48:10 2022-11-12 09:48:10 Outpatient [facility] [id number] Ignacio Heredia 2022-11-12 00:00:00 2022-11-12 00:00:00 Outpatient Visit [id number] 2022-11-11 09:15:00 2022-11-11 09:15:00 Outpatient LAURA AMADOR [facility] [id number] [facility] 2022-10-30 00:00:00 2022-10-30 00:00:00 [facility] MEDICAL OFFICE BUILDING 1.2.840.114 350.1.13.10 4.2.7.2.686 [id number] 044 [id number] [facility] 2022-10-10 00:00:00 2022-10-10 00:00:00 Telephone Ruby [facility] HI?[facility] MEDICAL OFFICE BUILDING 1.2.840.114 350.1.13.10 4.2.7.2.686 [id number] 044 [id number] [facility] 2022-10-07 00:00:00 2022-10-07 00:00:00 Telephone Laura Beltran [facility] HI?[facility] MEDICAL OFFICE BUILDING 1.2.840.114 350.1.13.10 4.2.7.2.686 [id number] 044 [id number] [facility] 2022-09-25 11:00:00 2022-09-25 11:20:08 Outpatient LAURA AMADOR [facility] [id number] [facility] 2022-09-25 11:00:00 2022-09-25 11:20:08 Office Visit Ruby [facility] IH?[facility] MEDICAL OFFICE BUILDING 1.2.840.114 350.1.13.10 4.2.7.2.686 [id number] [id number] [facility] 2022-09-03 00:00:00 2022-09-03 00:00:00 Refill Ruby [facility] HI?[facility] 1.2.840.114 350.1.13.10 4.2.7.2.686 [id number] 044 [id number] [facility] 2022-08-09 00:00:00 2022-08-09 00:00:00 Telephone Ruby [facility] MEDICAL OFFICE BUILDING 1.2840.114 350.1.13.10 4.2.7.2.686 [id number] [id number] [facility] 2022-08-08 00:00:00 2022-08-08 00:00:00 Telephone Ruby [facility] BUILD[facility] 1.2840.114 350.1.13.10 4.2.7.2.686 [id number] [id number] [facility] 2022-08-07 15:19:00 2022-08-07 21:35:00 Emergency X [facility] [id number] [facility] 2022-08-07 15:19:00 2022-08-07 21:35:[address] [facility] 1.2840.114 350.1.13.10 4.2.7.2.686 [id number] [facility] 2022-07-10 00:00:00 2022-07-10 00:00:00 Telephone Ruby [facility] MEDICAL OFFICE BUILDING 1.2.840.114 350.1.13.10 4.2.7.2.686 [id number] [id number] [facility] 2022-07-09 09:15:00 2022-07-09 09:44:28 Outpatient R LAURA BELTRAN [facility] [id number] [facility] 2022-07-09 09:15:00 2022-07-09 09:30:00 Office Visit Laura Beltran [facility] 1.2.840.114 350.1.13.10 4.2.7.2.686 [id number] 044 [id number] [facility] 2022-07-09 00:00:00 2022-07-09 00:00:00 Telephone Laura Beltran [facility] OFF[facility] BUILD[facility] 1..840.114 350.1.13.10 4.2.7.2.686 [id number] [id number] [facility] 2022-06-04 13:15:00 2022-06-04 13:32:49 Outpatient R LAURA BELTRAN [facility] [id number] [facility] 2022-06-04 13:15:00 2022-06-04 13:30:00 Office Visit Laura Beltran [facility] OFF[facility] BUILD[facility] 1..840.114 350.1.13.10 4.2.7.2.686 [id number] 044 [id number] [facility] 2022-06-04 13:15:00 2022-06-04 13:15:00 Outpatient R LAURA BELTRAN [facility] [id number] [facility] 2022-04-28 11:37:00 2022-04-28 12:24:00 Emergency X PEDROZA MUNDO [facility] ERT [id number] [facility] 2022-04-28 11:37:00 2022-04-28 12:24:00 Emergency Mundo Pedroza [facility] 1..840.114 350.1.13.10 4.2.7.2.686 [id number] [facility] 2022-04-28 00:00:00 2022-04-28 00:00:00 Letter (Out) Lora Gould [facility] 1..114 350.1.13.10 4.2.7.2.686 [id number] [facility] 2021-07-18 14:56:51 2021-07-18 15:32:09 Office Visit Laura Beltran [facility] Hi?[facility] 1.84.114 350.1.13.10 4.2.7.2.686 [id number] [facility] 2021-07-18 15:00:00 2021-07-18 15:00:00 Outpatient R RUBY [facility] [id number] [facility] 2021-05-30 00:00:00 2021-05-30 00:00:00 Orders Only Doctor Unassigned, Hartsel [facility] 1..114 350.1.13.10 4.2.7.2.686 [id number] [id number] [facility] 2021-05-25 00:00:00 2021-05-25 00:00:[address] [facility] .840.114 350.1.13.10 4.2.7.2.686 [id number] 044 [id number] 2021-05-25 00:00:00 2021-05-25 00:00:[address] [facility] .84.114 350.1.13.10 4.2.7.2.686 [id number] 044 [id number] [facility] 2021-05-21 00:00:00 2021-05-21 00:00:[address] [facility] 1.2840.114 350.1.13.10 4.2.7.2.686 [id number] 044 [id number] 2021-05-21 00:00:00 2021-05-21 00:00:00 Ming Juan PabloartieLaura Gordonmik [facility] 1.2840.114 350.1.13.10 4.2.7.2.686 [id number] 044 [id number] [facility] 2021-05-05 11:42:00 2021-05-05 13:42:00 [facility] 1.2.840.114 350.1.13.10 4.2.7.2.686 [id number] 2021-05-05 11:42:00 2021-05-05 13:42:00 Emergency Peng [facility] 1.2.840.114 350.1.13.10 4.2.7.2.686 [id number] [id number] [facility] 2021-05-04 00:00:00 2021-05-04 00:00:00 Telephone Nayla Sanders [facility] 1.2840.114 350.1.13.10 4.2.7.2.686 [id number] 044 [id number] 2021-05-04 00:00:00 2021-05-04 00:00:00 Telephone Nayla Sanders [facility] 1.2840.114 350.1.13.10 4.2.7.2.686 [id number] 044 [id number] [facility] 2021-05-03 17:09:02 2021-05-03 17:56:38 Urgent Care Nayla Sanders [facility] 1.2840.114 350.1.13.10 4.2.7.2.686 [id number] 044 [id number] 2021-05-03 17:09:02 2021-05-03 17:56:38 Urgent Care Nayla Sanders [facility] 1.114 350.1.13.10 4.2.7.2.686 [id number] 044 [id number] [facility] 2021-05-03 17:20:00 2021-05-03 17:20:00 Outpatient R [facility] [id number] [facility] 2021-04-25 10:32:12 2021-04-25 10:47:12 Office Visit Laura Beltran [facility] 1.114 350.1.13.10 4.2.7.2.686 [id number] 044 [id number] 2021-04-25 10:32:12 2021-04-25 10:47:12 Office Visit Laura Beltran [facility] 1.114 350.1.13.10 4.2.7.2.686 [id number] [facility] 2021-04-25 10:30:00 2021-04-25 10:30:00 Outpatient R LAURA BELTRAN [facility] [id number] [facility] 2021-04-25 00:00:00 2021-04-25 00:00:00 Orders Only Doctor Unassigned, Hartsel [facility] 1.114 350.1.13.10 4.2.7.2.686 [id number] 2021-04-25 00:00:00 2021-04-25 00:00:00 Orders Only Doctor Unassigned, Hartsel [facility] 1..114 350.1.13.10 4.2.7.2.686 [id number] [facility] 2021-04-19 00:00:00 2021-04-19 00:00:00 Orders Only Doctor Unassigned, Hartsel [facility] 1..114 350.1.13.10 4.2.7.2.686 [id number] [facility] 2021-04-11 15:30:00 2021-04-11 15:30:00 Outpatient JORDAN COSTA [facility] [id number] [facility] 2021-03-28 09:16:27 2021-03-28 09:46:27 [facility] 1.840.114 350.1.13.10 4.2.7.2.686 [id number] [facility] 2021-03-28 09:30:00 2021-03-28 09:30:00 Outpatient LAURA AMADOR [facility] [id number] [facility] 2021-02-20 00:00:00 2021-02-20 00:00:00 Patient Secure Msg Doctor Unassigned, [place] [facility] 1.840.114 350.1.13.10 4.2.7.2.686 [id number] [facility] 2020-11-25 22:09:00 2020-11-26 00:35:00 Emergency Jhoana Arnold [facility] 1.84.114 350.1.13.10 4.2.7.2.686 [id number] [facility] 2020-11-25 22:09:00 2020-11-26 00:35:00 Emergency X JHOANA ARNOLD [facility] ERT [id number] [facility] 2020-10-17 11:03:50 2020-10-17 11:18:50 Cargo Service Agent Visit Podevorah, [facility] 1.840.114 350.1.13.10 4.2.7.2.686 [id number] [facility] 2020-10-17 11:00:00 2020-10-17 11:00:00 Outpatient R CRISTAL SEAMAN [facility] [id number] [facility] 2020-10-17 00:00:00 2020-10-17 00:00:00 Orders Only Doctor Unassigned, [place] [facility] 1.840.114 350.1.13.10 4.2.7.2.686 [id number] [facility] 2020-10-05 09:47:00 2020-10-05 15:13:00 Emergency X KELSI CORBETT [facility] ERT [id number] [facility] 2020-10-05 09:47:00 2020-10-05 15:13:00 Emergency Kelsi Corbett [facility] 1..840.114 350.1.13.10 4.2.7.2.686 [id number] [facility] Results Test Description Test Time Test Comments Results Result Co mments Source HERPES SIMPLEX AB, [id number] 13:50:57* Test Item Value Reference Range Interpretation Comme nts HERPES SIMPLEX AB, IgM (test code = 47481) 0.84 INDEX SEE BELOW INTERPRETATION U NITS RANGE ----- ----- NEGATIVE INDEX <=0.89 EQUIVOCAL INDEX 0.90-1.09 POSITIVE INDEX >=1.10 GONORRHEA, NAAT, [id number] 12:26:16* Test Item Value Reference Range Interpretation Comme nts GONORRHEA, NAAT, URINE (test code = 21296) NEGATIVE NEGATIVE Testing is perfo rmed with [employer] 6800/8800 systems usingreal-time polymerase chain reaction (PCR) method. A negative result does not exclude low level infection, specimensampling error, or collection error. CHLAMYDIA, NAAT, [id number] 12:26:16* Test Item Value Reference Range Interpretation Comme nts CHLAMYDIA, NAAT, URINE (test code = 83830) NEGATIVE NEGATIVE Testing is perfo rmed with Pradeep VLADISLAV 6800/8800 systems usingreal-time polymerase chain reaction (PCR) method. A negative result does not exclude low level infection, specimensampling error, or collection error. HERPES SIMPLEX 1/2 AB, IgG [id number] 04:35:18* Test Item Value Reference Range Interpretation Comme nts HERPES SIMPLEX 1 AB, IgG (test code = 71042) 11.300 INDEX SEE BELOW H INTERPRETATION U NITS RANGE ----- ----- NON-REACTIVE INDEX <1.000 REACTIVE INDEX >=1.000 HERPES SIMPLEX 2 AB, IgG (test code = 22138) 0.072 INDEX SEE BELOW INTERPRETATION U NITS RANGE ----- ----- NON-REACTIVE INDEX <1.000 REACTIVE INDEX >=1.000 HEPATITIS PANEL, [id number] 04:35:18* Test Item Value Reference Range Interpretation Comme nts HEPATITIS A IgM (test code = 12285) NON-REACTIVE NON-REACTIVE HEPATITIS B CORE IgM (test code = 4644) NON-REACTIVE NON-REACTIVE HEPATITIS B SURF AG (test code = 2739) NON-REACTIVE NON-REACTIVE HEPATITIS C ANTIBODY (test code = 4675) NON-REACTIVE NON-REACTIVE INTERPRETATION HEPATITIS A: (test code = 2552) (NOTE) Hepatitis A sero logy shows no evidence of acute hepatitis A. INTERPRETATION HEPATITIS B: (test code = 52117) (NOTE) Hepatitis B sero logy shows no evidence of acute hepatitis B andno indication of exposure to hepatitis B virus in the previous onur eight months. INTERPRETATION HEPATITIS C: (test code = 96800) (NOTE) Hepatitis C sero logy shows no evidence of exposure to hepatitisC virus at this time. It can take up to 12 months after exposure tothe hepatitis C virus for antibodies to become detectable in the blood in certain patients. UNLESS OTHERWISE INDICATED, ALL TESTING PERFORMED AT [facility] [address] [place] [id number] [employer]ET[employer] PROGRAM MANAGER: GABY MALDONADO M.D. [facility] NUMBER [id number] [facility] [place]. [id number] HIV 1/2 4TH GEN, RFLX [id number] 04:35:18* Test Item Value Reference Range Interpretation Comme nts HIV 1/2 4TH GEN, RFLX CONF ( test code = 3514) NON-REACTIVE NON-REACTIVE RPR REFLEX TO T. PALLIDUM - [id number] 03:16:34* Test Item Value Reference Range Interpretation Comme nts RPR (test code = 38226) NON-REACTIVE NON-REACTIVE RPR TITER (test code = 3500) NOT INDIC. TITER NOT INDIC. POCT Molecular [id number] 23:10:47* Test Item Value Reference Range Interpretation Comme nts POCT Molecular FluA (test co de = 98232-9) Negative Negative POCT Molecular FluB (test co de = 44715-2) Negative Negative Lab Interpretation (test cod e = 72268-1) Normal [facility] Molecular [id number] 23:10:47* Test Item Value Reference Range Interpretation Comme nts POCT Molecular FluA (test co de = 69962-9) Negative Negative POCT Molecular FluB (test co de = 70260-5) Negative Negative Lab Interpretation (test cod e = 02415-3) Normal [facility] SARS-COV-2 ANTIGEN (BINAX NOW)2023-10-16 23:05:00* Test Item Value Reference Range Interpretation Comme [facility] POCT SARS-COV-2 ANTIGEN (gladys t code = 51284-6) Positive Not Detected A On board controls acceptable with C Line (test code = 3574) Yes Lab Interpretation (test cod e = 78252-2) Abnormal [facility] SARS-COV-2 ANTIGEN (BINAX NOW)2023-10-16 23:05:00* Test Item Value Reference Range Interpretation Comme [facility] POCT SARS-COV-2 ANTIGEN (gladys t code = 47191-2) Positive Not Detected A On board controls acceptable with C Line (test code = 3574) Yes Lab Interpretation (test cod e = 13726-4) Abnormal [facility] MOLECULAR [id number] 22:59:34* Test Item Value Reference Range Interpretation Comme nts POCT Molecular Strep (test c ode = 69840-2) Negative Negative Lab Interpretation (test cod e = 37030-2) Normal [facility] MOLECULAR [id number] 22:59:34* Test Item Value Reference Range Interpretation Comme nts POCT Molecular Strep (test c ode = 30097-0) Negative Negative Lab Interpretation (test cod e = 56580-5) Normal [facility] SARS-COV-2 ANTIGEN (BINAX NOW)2023-02-07 15:14:00* Test Item Value Reference Range Interpretation Comme nts POCT SARS-COV-2 ANTIGEN (test code = 62079-8) Not Detected Not Detected On board controls acceptable with C Line (test code = 3574) Yes GALLO (test code = GALLO) accurate developme nt and interpretation of all internal controls Lab Interpretation (test code = 75024-9) Normal [facility] MOLECULAR [id number] 15:10:42* Test Item Value Reference Range Interpretation Comme nts POCT Molecular FluA (test co de = 12980-8) Positive Negative A Lab Interpretation (test cod e = 21790-4) Abnormal [facility] MOLECULAR [id number] 14:59:48* Test Item Value Reference Range Interpretation Comme nts POCT Molecular Strep (test c ode = 24223-2) Negative Negative Lab Interpretation (test cod e = 99871-7) Normal [facility] America[facility]REG[facility]NC[facility] TEST, [id number] 22:34:41* Test Item Value Reference Range Interpretation Comme nts PREG SERUM (test code = 3787450356) Negative GALLO (test code = GALLO) Less than 10 IU/L. ?If low titer or ectopic is suspected, resubmit specimen in 48-72 hours. [facility] AmericaTROPONIN [id number] 22:33:51* Test Item Value Reference Range Interpretation Comments TROPONIN I (test code = 6078460038) 0.002 ng/mL See_Comment [Automated message] The system [...] of biotin. Lab Interpretation (test code = 25104-9) Normal [facility] AmericaSALICYLATE2022-10-19 22:27:20 SALICYLATE<10mg/L1 5:27 PM [facility] SERVICESKENTFIELD HOSPITALTherapeutic Range: ? Analgesic and Antipyretic Use ? 20-100 mg/L ? ? Anti-Inflammatory Use ? 100-250 mg/L Toxic Range: ? Greater than 300 mg/LUnM[facility] [id number] 22:27:15ALCOHOL<10mg/dL08/07/2022 5:27 PM [facility] SERVICESKENTFIELD HOSPITALToxic Greater than or equal to 80 mg/dL. NOTE: Whole blood values are approximately 10% to 15% lower than serum and plasma.[facility] AmericaACETAMINOPHEN2022-10-19 22:27:10* Test Item Value Reference Range Interpretation Comme nts ACETAMINOP (test code = 8238669628) 10-30 L GALLO (test code = GALLO) Toxic: Greater sapphire n 200 ug/mL @ 4 hour post ingestion or greater than 50 ug/mL @ 12 hour post ingestion Lab Interpretation (test code = 35426-3) Abnormal [facility] AmericaBASIC METABOLIC PANEL (NA, K, CL, CO2, GLUCOSE, BUN, CREATININE, CA)2022-08-07 22:23:27* Test Item Value Reference Range Interpretation Comme nts NA (test code = 3304073231) 138 mmol/L 135-145 K (test code = 7037370285) 3.9 mmol/L 3.5-5 CL (test code = 0265703111) 102 mmol/L 98-108 CO2 TOTAL (test code = 1541589179) 27 mmol/L 23-31 AGAP (test code = 7979203211) 2-16 BUN (test code = 3212308321) 16 mg/dL 7-23 GLUCOSE (test code = 4726675816) 87 mg/dL 70-110 CREATININE (test code = 3849336212) 0.69 mg/dL 0.5-1.04 CALCIUM (test code = 5586841326) 9.7 mg/dL 8.6-10.6 eGFR (test code = 8331601923) mL/min/1.73m2 GALLO (test code = GALLO) Association [...] or urine or abnormalities in imaging tests). [facility] AmericaCREATINE [id number] 22:23:27* Test Item Value Reference Range Interpretation Comme nts CK (test code = 4594656739) 45 U/L 33-194 Lab Interpretation (test cod e = 46052-9) Normal [facility] AmericaHEPATIC FUNCTION PANEL (89389) (ALB,T.PRO,BILI T,BU/BC,ALT,AST,ALK PHOS)2022-08-07 22:23:27* Test Item Value Reference Range Interpretation Comme nts TOTAL BILI (test code = 2638759713) 0.7 mg/dL 0.1-1.1 BILI UNCON (test code = 2155933906) 0.3 mg/dL 0.1-1.1 BILI CONJ (test code = 3900947678) 0.0 mg/dL 0-0.3 T PROTEIN (test code = 6136808092) 7.4 g/dL 6.3-8.2 ALBUMIN (test code = 9848666894) 4.4 g/dL 3.5-5 ALK PHOS (test code = 3756215986) 80 U/L 34-122 ALTv (test code = 1742-6) 15 U/L 5-35 AST(SGOT) (test code = 0866722309) 15 U/L 13-40 Lab Interpretation (test cod e = 76022-4) Normal [facility] AmericaLIPASE2022-10-19 22:23:27* Test Item Value Reference Range Interpretation Comme nts LIPASE (test code = 5753219041) 51 U/L 0-220 Lab Interpretation (test cod e = 72206-3) Normal [facility] AmericaCB WITH [id number] 22:06:06* Test Item Value Reference Range Interpretation Comme nts WBC (test code = 6690-2) See_Comment H [Automated IndaBoxa ge] The system which generated this result [...] g/dL 31.6-35.1 H RDW-SD (test code = 84729-0) 40.6 fL 39-49.9 RDW-CV (test code = 788-0) 13.1 % 12-15.5 PLT (test code = 777-3) See_Comment H [Automated messa ge] The system which generated this result transmitted reference range: 166 - 358 10*3/?L. The reference range was not used to interpret this result as normal/abnormal. MPV (test code = 06659-8) 10.1 fL 9.5-12.9 NRBC/100 WBC (test code = 0815082564) See_Comment [Automated Avieon ssage] The system which generated this result transmitted reference range: 0.0 - 10.0 /100 WBCs. The reference range was not used to interpret this result as normal/abnormal. NRBC x10^3 (test code = 3237814819) See_Comment [Automated messa ge] The system which generated this result transmitted reference range: 10*3/?L. The reference range was not used to interpret this result as normal/abnormal. GRAN MAT (NEUT) % (test code = 770-8) 62.7 % IMM GRAN % (test code = 3156634586) 0.40 % LYMPH % (test code = 736-9) 25.7 % MONO % (test code = 5905-5) 7.8 % EOS % (test code = 713-8) 2.8 % BASO % (test code = 706-2) 0.6 % GRAN MAT x10^3(ANC) (test code = 9296524683) 8.40 10*3/uL 1.88-7.09 H IMM GRAN x10^3 (test code = 8111633282) 0.06 10*3/uL 0-0.06 LYMPH x10^3 (test code = 731-0) 3.44 10*3/uL 1.32-3.29 H MONO x10^3 (test code = 742-7) 1.04 10*3/uL 0.33-0.92 H EOS x10^3 (test code = 711-2) 0.38 10*3/uL 0.03-0.39 BASO x10^3 (test code = 704-7) 0.08 10*3/uL 0.01-0.07 H Lab Interpretation (test code = 46372-2) Abnormal [facility] AmericaSARS-CoV-2 (COVID-19) by RT-PCR (HIGH RISK) 2021-06-29 00:00:00* Test Item Value Reference Range Interpretation Comme nts SARS-CoV-2 INTERPRETATION (t est code = 22525) NEGATIVE SOURCE (test code = 69874) NOT SPECIFIED SARS-CoV-2 (COVID-19) by RT-PCR (HIGH RISK)2021-06-29 00:00:00* Test Item Value Reference Range Interpretation Comme nts SARS-CoV-2 INTERPRETATION (t est code = 46069) NEGATIVE SOURCE (test code = 42391) NOT SPECIFIED [id number] 00:00:00* Test Item Value Reference Range Interpretation Comme nts LIPASE (test code = 2058) 20 U/L [id number] 00:00:00* Test Item Value Reference Range Interpretation Comme nts LIPASE (test code = 2058) 20 U/L [id number] 00:00:00* Test Item Value Reference Range Interpretation Comme nts LIPASE (test code = 8) 20 U/L COMPREHENSIVE METABOLIC [id number] 00:00:00* Test Item Value Reference Range Interpretation Comme nts GLUCOSE (test code = 2217) 92 MG/DL BUN (test code = 2208) 11 MG/DL CREATININE (test code = 2214) 0.80 MG/DL eGFR AMER. (test cod e = 44313) 108 ML/MIN/1.73 eGFR NON- AMER. (test code = 84593) 94 ML/MIN/1.73 CALC BUN/CREAT (test code = [...] code = 2219) 11 U/L COMPREHENSIVE METABOLIC [id number] 00:00:00* Test Item Value Reference Range Interpretation Comme nts GLUCOSE (test code = 2217) 92 MG/DL BUN (test code = 2208) 11 MG/DL CREATININE (test code = 2214) 0.80 MG/DL eGFR AMER. (test cod e = 18453) 108 ML/MIN/1.73 eGFR NON- AMER. (test code = 46678) 94 ML/MIN/1.73 CALC BUN/CREAT (test code = [...] ALT (test code = 2219) 11 U/L [id number] 00:00:00* Test Item Value Reference Range Interpretation Comme nts AMYLASE (test code = 2205) 52 U/L [id number] 00:00:00* Test Item Value Reference Range Interpretation Comme nts AMYLASE (test code = 2205) 52 U/L CULTURE, URINE [ADDED]2021-01-20 00:00:00* Test Item Value Reference Range Interpretation Comme nts CULTURE, URINE (test code = 74131) SPECIMEN NUMBER: [id number] CULTURE, URINE [ADDED]2021-01-20 00:00:00* Test Item Value Reference Range Interpretation Comme nts CULTURE, URINE (test code = 68148) SPECIMEN NUMBER: [id number] ACUTE HEPATITIS [id number] 00:00:00* Test Item Value Reference Range Interpretation Comme nts HEPATITIS A IgM (test code = 63594) NON-REACTIVE HEPATITIS B CORE IgM (test c ode = 4644) NON-REACTIVE HEPATITIS B SURF AG (test co de = 2739) NON-REACTIVE HEPATITIS C ANTIBODY (test c ode = 4675) NON-REACTIVE INTERPRETATION HEPATITIS A: (test code = 2552) (NOTE) INTERPRETATION HEPATITIS B: (test code = 83307) (NOTE) INTERPRETATION HEPATITIS C: (test code = 00959) (NOTE) CHLAMYDIA, AMPLIFIED, [id number] 00:00:00* Test Item Value Reference Range Interpretation Comme nts CHLAMYDIA, NAAT (test code = 82013) NEGATIVE CHLAMYDIA, AMPLIFIED, [id number] 00:00:00* Test Item Value Reference Range Interpretation Comme nts CHLAMYDIA, NAAT (test code = 32165) NEGATIVE GC, AMPLIFIED, [id number] 00:00:00* Test Item Value Reference Range Interpretation Comme nts GONORRHEA, NAAT (test code = 61657) NEGATIVE GC, AMPLIFIED, [id number] 00:00:00* Test Item Value Reference Range Interpretation Comme nts GONORRHEA, NAAT (test code = 28069) NEGATIVE [id number] 00:00:00* Test Item Value Reference Range Interpretation Comme nts RPR RESULT (test code = 3501) NON-REACTIVE RPR TITER (test code = 3500) NOT INDIC. TITER [id number] 00:00:00* Test Item Value Reference Range Interpretation Comme nts RPR RESULT (test code = 3501) NON-REACTIVE RPR TITER (test code = 3500) NOT INDIC. TITER [id number] 00:00:00* Test Item Value Reference Range Interpretation Comme nts RPR RESULT (test code = 3501) NON-REACTIVE RPR TITER (test code = 3500) NOT INDIC. TITER VAGINAL PATHOGENS DNA [id number] 00:00:00* Test Item Value Reference Range Interpretation Comme nts CONRAD SPECIES (test code = 02639) NEGATIVE G. VAGINALIS (test code = 11378) POSITIVE T. VAGINALIS (test code = 60173) NEGATIVE VAGINAL PATHOGENS DNA [id number] 00:00:00* Test Item Value Reference Range Interpretation Comme nts CONRAD SPECIES (test code = ) NEGATIVE G. VAGINALIS (test code = 37765) POSITIVE T. VAGINALIS (test code = 47444) NEGATIVE HIV AB/AG COMBO RFLX [id number] 00:00:00* Test Item Value Reference Range Interpretation Comme nts HIV 1/2 4TH GEN, RFLX CONF ( test code = 3514) NON-REACTIVE HIV AB/AG COMBO RFLX [id number] 00:00:00* Test Item Value Reference Range Interpretation Comme nts HIV 1/2 4TH GEN, RFLX CONF ( test code = 3514) NON-REACTIVE ACUTE HEPATITIS [id number] 00:00:00* Test Item Value Reference Range Interpretation Comme nts HEPATITIS A IgM (test code = 79304) NON-REACTIVE HEPATITIS B CORE IgM (test c ode = 4644) NON-REACTIVE HEPATITIS B SURF AG (test co de = 2739) NON-REACTIVE HEPATITIS C ANTIBODY (test c ode = 4675) NON-REACTIVE INTERPRETATION HEPATITIS A: (test code = 2552) (NOTE) INTERPRETATION HEPATITIS B: (test code = 12968) (NOTE) INTERPRETATION HEPATITIS C: (test code = 39042) (NOTE) CULTURE, [id number] 00:00:00* Test Item Value Reference Range Interpretation Comme nts CULTURE, URINE (test code = 76903) SPECIMEN NUMBER: [id number] CULTURE, [id number] 00:00:00* Test Item Value Reference Range Interpretation Comme nts CULTURE, URINE (test code = 66146) SPECIMEN NUMBER: [id number] CULTURE, [id number] 00:00:00* Test Item Value Reference Range Interpretation Comme nts CULTURE, URINE (test code = 09283) SPECIMEN NUMBER: [id number] CULTURE, [id number] 00:00:00* Test Item Value Reference Range Interpretation Comme nts CULTURE, URINE (test code = 76340) SPECIMEN NUMBER: [id number] SARS-CoV-2 (COVID-19) by RT-PCR (HIGH RISK)2020-11-03 00:00:00* Test Item Value Reference Range Interpretation Comme nts SARS-CoV-2 INTERPRETATION (t est code = 40304) NEGATIVE SOURCE (test code = 90468) NOT SPECIFIED SARS-CoV-2 (COVID-19) by RT-PCR (HIGH RISK)2020-11-03 00:00:00* Test Item Value Reference Range Interpretation Comme nts SARS-CoV-2 INTERPRETATION (t est code = 70635) NEGATIVE SOURCE (test code = 20670) NOT SPECIFIED CHLAMYDIA, AMPLIFIED, [id number] 00:00:00* Test Item Value Reference Range Interpretation Comme nts CHLAMYDIA, NAAT (test code = 48057) NEGATIVE CHLAMYDIA, AMPLIFIED, [id number] 00:00:00* Test Item Value Reference Range Interpretation Comme nts CHLAMYDIA, NAAT (test code = 78920) NEGATIVE GC, AMPLIFIED, [id number] 00:00:00* Test Item Value Reference Range Interpretation Comme nts GONORRHEA, NAAT (test code = 63115) NEGATIVE GC, AMPLIFIED, [id number] 00:00:00* Test Item Value Reference Range Interpretation Comme nts GONORRHEA, NAAT (test code = 57186) NEGATIVE VAGINAL PATHOGENS DNA [id number] 00:00:00* Test Item Value Reference Range Interpretation Comme nts CONRAD SPECIES (test code = 43982) NEGATIVE G. VAGINALIS (test code = 23634) POSITIVE T. VAGINALIS (test code = 22998) NEGATIVE VAGINAL PATHOGENS DNA [id number] 00:00:00* Test Item Value Reference Range Interpretation Comme nts CONRAD SPECIES (test code = 41674) NEGATIVE G. VAGINALIS (test code = 41234) POSITIVE T. VAGINALIS (test code = 76426) NEGATIVE ACUTE HEPATITIS [id number] 00:00:00* Test Item Value Reference Range Interpretation Comme nts HEPATITIS A IgM (test code = 08505) NON-REACTIVE HEPATITIS B CORE IgM (test c ode = 4644) NON-REACTIVE HEPATITIS B SURF AG (test co de = 0519) NON-REACTIVE HEPATITIS C ANTIBODY (test c ode = 4624) NON-REACTIVE INTERPRETATION HEPATITIS A: (test code = 2552) (NOTE) INTERPRETATION HEPATITIS B: (test code = 18156) (NOTE) INTERPRETATION HEPATITIS C: (test code = 07347) (NOTE) CHLAMYDIA, AMPLIFIED, [id number] 00:00:00* Test Item Value Reference Range Interpretation Comme nts CHLAMYDIA, TMA (test code = 67376) NEGATIVE CHLAMYDIA, AMPLIFIED, [id number] 00:00:00* Test Item Value Reference Range Interpretation Comme nts CHLAMYDIA, TMA (test code = 15869) NEGATIVE GC, AMPLIFIED, [id number] 00:00:00* Test Item Value Reference Range Interpretation Comme nts GONORRHEA, TMA (test code = 27793) NEGATIVE GC, AMPLIFIED, [id number] 00:00:00* Test Item Value Reference Range Interpretation Comme nts GONORRHEA, TMA (test code = 81607) NEGATIVE [id number] 00:00:00* Test Item Value Reference Range Interpretation Comme nts RPR RESULT (test code = 3501) NON-REACTIVE RPR TITER (test code = 3500) NOT INDIC. TITER [id number] 00:00:00* Test Item Value Reference Range Interpretation Comme nts RPR RESULT (test code = 3501) NON-REACTIVE RPR TITER (test code = 3500) NOT INDIC. TITER [id number] 00:00:00* Test Item Value Reference Range Interpretation Comme nts RPR RESULT (test code = 3501) NON-REACTIVE RPR TITER (test code = 3500) NOT INDIC. TITER HIV AB/AG COMBO RFLX [id number] 00:00:00* Test Item Value Reference Range Interpretation Comme [facility] HIV 1/2 4TH GEN, RFLX CONF ( test code = 3514) NON-REACTIVE PAP TEST, THINPREP, [id number] 00:00:00* Test Item Value Reference Range Interpretation Comme nts SOURCE: (test code = 8001) Cervical/Endocervical SLIDES: (test code = 8011) 1 LMP: (test code = 8021) 05/11/2020 SPECIMEN ADEQUACY: (test code = 73012) (NOTE) INTERPRETATION: (test code = 76668) NILM/NO EPITH. ABNORMALITY;SEE BELOW [employer]: (test code = 8101) JACKSON Mao(ASCP) LOCATION: (test code = 31438) (NOTE) CPT: (test code = 8140) (NOTE) VAGINAL PATHOGENS DNA [id number] 00:00:00* Test Item Value Reference Range Interpretation Comme nts CONRAD SPECIES (test code = ) NEGATIVE G. VAGINALIS (test code = 67427) NEGATIVE T. VAGINALIS (test code = 97946) NEGATIVE HIV AB/AG COMBO RFLX [id number] 00:00:00* Test Item Value Reference Range Interpretation Comme nts HIV 1/2 4TH GEN, RFLX CONF ( test code = 3514) NON-REACTIVE VAGINAL PATHOGENS DNA [id number] 00:00:00* Test Item Value Reference Range Interpretation Comme nts CONRAD SPECIES (test code = ) NEGATIVE G. VAGINALIS (test code = 37248) NEGATIVE T. VAGINALIS (test code = 05759) NEGATIVE PAP TEST, THINPREP, [id number] 00:00:00* Test Item Value Reference Range Interpretation Comme nts SOURCE: (test code = 8001) Cervical/Endocervical SLIDES: (test code = 8011) 1 LMP: (test code = 8021) 05/11/2020 SPECIMEN ADEQUACY: (test code = 24396) (NOTE) INTERPRETATION: (test code = 75281) NILM/NO EPITH. ABNORMALITY;SEE BELOW [employer]NS[employer]: (test code = 8101) JACKSON Mao(ASCP) LOCATION: (test code = 32398) (NOTE) CPT: (test code = 8140) (NOTE) ACUTE HEPATITIS [id number] 00:00:00* Test Item Value Reference Range Interpretation Comme nts HEPATITIS A IgM (test code = 29977) NON-REACTIVE HEPATITIS B CORE IgM (test c ode = 4644) NON-REACTIVE HEPATITIS B SURF AG (test co de = 4109) NON-REACTIVE HEPATITIS C ANTIBODY (test c ode = 4611) NON-REACTIVE INTERPRETATION HEPATITIS A: (test code = 2552) (NOTE) INTERPRETATION HEPATITIS B: (test code = 30827) (NOTE) INTERPRETATION HEPATITIS C: (test code = 55270) (NOTE) HPV HIGH RISK WITH GENOTYPE, [id number] 00:00:00* Test Item Value Reference Range Interpretation Comme nts HPV HIGH RISK INTERP (test c ode = 31305) NEGATIVE HPV 16 (test code = 33432) NEGATIVE HPV 18 (test code = 36610) NEGATIVE HPV, HR, OTHER GENOTYPES (te st code = 15510) NEGATIVE HPV HIGH RISK WITH GENOTYPE, [id number] 00:00:00* Test Item Value Reference Range Interpretation Comme nts HPV HIGH RISK INTERP (test c ode = 98522) NEGATIVE HPV 16 (test code = 20763) NEGATIVE HPV 18 (test code = 96760) NEGATIVE HPV, HR, OTHER GENOTYPES (te st code = 41403) NEGATIVE [id number] 00:00:00* Test Item Value Reference Range Interpretation Comme nts PROLACTIN (test code = 2800) 11.0 NG/ML [id number] 00:00:00* Test Item Value Reference Range Interpretation Comme nts PROLACTIN (test code = 2800) 11.0 NG/ML [id number] 00:00:00* Test Item Value Reference Range Interpretation Comme nts TSH, THIRD GENERATION (test code = 2821) 0.793 UIU/ML [id number] 00:00:00* Test Item Value Reference Range Interpretation Comme nts TSH, THIRD GENERATION (test code = 2821) 0.793 UIU/ML [id number] 00:00:00* Test Item Value Reference Range Interpretation Comme nts TSH, THIRD GENERATION (test code = 2821) 0.793 UIU/ML Notes Date/Time Note Provider Source 2024-03-08 10:07:44 4262-95-28H60:07:44 Images from the original note were not included.Requested Renewalsdextroamphetamine-amphetami ne (ADDERALL) 30 mg tabletSig: Take 1 tablet by mouth in the morning and 1 tablet in the evening.Disp: 60 tablet Refills: 0Start: 03/08/2024Earliest Fill Date: 03/08/2024lass: eRXFor: Attention deficit disorder (ADD) in adultLast ordered: 3 weeks ago (02/11/2024) by Ruby Jose Review Required Npmtrz3203/08/2024 10:01 AMProtocol Details This refill cannot be delegatedValid encounter within last 12 monthsTo be filled at: [id number] - [place], [place] - [address] [facility] MARY ANNE & Mallorie VisitsDate Type Provider [...] authorizing provider and meeting all other requirements 91022-2Dxyeepiig encounter HdqwAW3841-63-39S11:07:58Telephone encounter [id number]. 2.147048|[id number] for patient sxuh14758-4SogqYGVKLBBFMVDJyhtwmgbb C-CDA narrative [id number] M Fisher [address] Dg[id number] 8QJPPYRNQWVRMITVKLUEPBU9973-93-25W0 0:07:581.2.840.490477.1.72.3.15|1.2 .840.019008.1.13.104.2.7.2.727879_2 [id number] Sirena Crowe LVN [facility] 2024-02-11 14:59:40 3456-80-22F23:59:40 Recent VisitsDate Type Provider Dept01/07/24 Office Visit Laura Beltran MD Ang-Db [facility]10/16/23 Office Visit Gaby Palma MD [facility] Med08/11/23 Office Visit Laura Beltran MD [facility] Med02/03/23 Office Visit Laura Beltran MD [facility] Med12/06/22 Office Visit Trena Wyatt PA [facility] Med11/20/22 Office Visit Vaughn Tan FNP Ang[facility] Med09/25/22 Office Visit Laura Beltran MD [facility] MedShowing recent visits within past 540 days [...] morning and 1 tablet in the evening. [id number] encounter [id number]:00:03Telephone encounter [id number]. [id number] for patient [id number] C-CDA narrative text[address] [id number] [id number] 5:00:031.2.840.655687.1.72.3.15|1.2 .840.706117.1.13.104.2.7.2.727879_2 [id number] [facility] 2024-02-11 14:42:36 [id number]:42:36 Copied from [facility] #[id number]. Topic: Clinical - Order>> Feb 11, 2024 2:41 PM Patient Cargo Service Agent wrote:Anne Marie Durham is a 43 year old female is calling in refill fordextroamphetamine-amphetamine 30 mg tablet (AdderalL)[id number] [facility] BATS DRIVEPhone: Fewqzos is completely out 07[address]-8Whymgvnag encounter IhydFD8542-10-34T12:43:22Telephone encounter NoteTXT1.2.840.288032.1.13.104.2.7. 2.278731|[id number] for patient rwnu59272-5UssyEJLWCUGXRPBXpriuogvx C-CDA narrative text[address] AwxiApbikhsstSavwmcilrJGXF781673641 6IOPHWGUUUVJUWPVDRWCASD7896-21-85M9 4:43:221.2.840.564127.1.72.3.15|1.2 .840.275123.1.13.104.2.7.2.727879_2 [id number] [facility] 2024-01-01 16:51:37 2181-07-77R30:51:37 Images from the original note were not included.Requested Renewalsdextroamphetamine-amphetami ne (ADDERALL) 30 mg tabletPossible duplicate: Jolanta to review recent actions on this medicationSig: Take 1 tablet by mouth in the morning and 1 tablet in the evening.Disp: 60 tablet Refills: 0Start: 01/01/2024Earliest Fill Date: 01/01/2024lass: eRXNon-formulary For: Attention deficit disorder (ADD) in adultLast ordered: 3 weeks ago (12/11/2023) by Ruby Jose Review Required Chplwl9801/01/2024 04:48 PMProtocol Details This refill cannot be delegatedValid encounter within last 12 monthsTo be filled at: [place] [id number] [place] [facility] [address] [facility] WILKINSRecent VisitsDate Type Provider Dept112/17/22 [...] authorizing provider and meeting all other requirements 51142-2Zvbbuflpu encounter AjsiRW2184-78-24G32:51:45Telephone encounter NoteTXT1.2.840.828528.1.13.104.2.7. 2.692397|[id number] for patient wdfb35561-7GxsoINYLOQZFNGJZaoiwazod C-CDA narrative [id number] M Fisher [address] Cz[id number] 3HHHKIZYISUNIXKPXVLFQCP0880-07-77B6 6:51:451.2.840.108159.1.72.3.15|1.2 .840.915238.1.13.104.2.7.2.727879_2 [id number] Sirena Crowe LVN [facility] 2024-01-01 16:46:45 9047-93-31T06:46:45 Copied from [facility] #[id number]. Topic: Clinical - Order>> Jan 01, 2024 4:46 PM Patient Cargo Service Agent wrote:Anne Marie Durham is a 43 year old female is calling in refill for :dextroamphetamine-amphetamine 30 mg tablet (AdderalL)[facility] #[id number] - [place], [place] - [address] [facility] [address]Thjig: [phone] Bfzfoiyoempqqi signed by Ravi Deal at 01/01/2024 4:48 PM ZBZ20439-5Uaztezszf encounter ZjbuPZ7604-79-44P98:48:05Telephone encounter NoteTXT1.2.840.451969.1.13.104.2.7. 2.231304|[id number] for patient kcbm98965-5NhfjNFKRPMJENFNHfplkhrgv C-CDA narrative text[address] QnbuGj[id number] 1BMWPTPCHQAAVOLXLXOHSSN2819-60-06Y5 6:48:051.2.840.303584.1.72.3.15|1.2 .840.855668.1.13.104.2.7.2.727879_2 [id number] [facility] 2023-12-24 09:00:54 0134-01-76X54:00:54 Anne Marie Durham is a 43 year old femalePatient requesting referral for ophthalmology and dermatology. Please advise. 31449-1Acjktnupa encounter MgosCJ7317-20-87F31:04:48Telephone encounter NoteTXT1.2.840.536114.1.13.104.2.7. 2.175499|[id number] for patient mchv88580-9NcvrBJMOGSGYTYNZmaxqvzls C-CDA narrative qjgg035594703Biwytse L Thompson[address] [id number] 0GQSNJDYNCJGCGCDAMZEVIP0676-38-13L9 9:04:481.2.840.043321.1.72.3.15|1.2 .840.223273.1.13.104.2.7.2.727879_2 [id number] Saulo Carver [facility] 2023-12-11 15:06:12 0759-54-85C15:06:12 Pt calling to report that she has contacted several pharmacies and has been told she will need to request a change in her Adderall medication to 60mg capsules or to 20mg tablets (disp 90) in order for her current pharmacy to fill. Pt states she does not want generic medication 13668-6Qdtdipbrs encounter RoonXD8129-24-25O82:09:16Telephone encounter NoteTXT1.2.840.140086.1.13.104.2.7. 2.262096|[id number] for patient gtno24776-8TvbcVVWBCJVZLNTQqiklbzwa C-CDA narrative agqz09026200Kpnai L [id number] 5ILVAUBNCGVCCTTDWQBHFNN8511-32-06A2 5:09:161.2.840.131303.1.72.3.15|1.2 .840.983175.1.13.104.2.7.2.727879_2 [id number] Eliza Landon [facility] 2023-12-11 11:24:13 5599-00-86J55:24:13 Anne Marie Durham is a 43 year old femalePatient calling asking if Rx dextroamphetamine-amphetamine (ADDERALL) 30 mg tablet ca be sent to [facility] in [place] instead. Please advise. 53765-6Avvqbhwzt encounter WwqwSS3409-64-57Y21:26:15Telephone encounter NoteTXT1.2.840.787925.1.13.104.2.7. 2.646401|[id number] for patient vrgq53207-7LpfgQRSVKXEWXNAOukbmwvvb C-CDA narrative hxsv784218135Lmsqsmt J Raines[address]TXTX[address]755 4YTHRHYZJAFZUIWPEETEJSY7435-22-73X9 1:26:151.2.840.967186.1.72.3.15|1.2 .840.895688.1.13.104.2.7.2.727879_2 [id number] Kaya Knight [facility] 2023-12-09 09:42:25 0610-35-66T05:42:25 Anne Marie Durham is a 43 year old femalePt states that her pharmacy has the ADHD medication on back order, please resubmit to:[facility], [place] [address]-9Bvunlcjrm encounter UaagME9900-57-78A26:48:39Telephone encounter NoteTXT1.2.840.954938.1.13.104.2.7. 2.122134|[id number] for patient gegv26516-0RziaRIAHKNIPKTHUwkygykok C-CDA narrative igyw081571983Rcovrwr M Ray[id number] 2RVHHFHKSQZMOVMCWEOOGQX6597-42-77U3 9:48:391.2.840.147228.1.72.3.15|1.2 .840.484367.1.13.104.2.7.2.727879_2 [id number] Chantal Delatorre [facility] 2023-12-08 14:58:12 2910-69-16X89:58:12 Images from the original note were not included.Requested Renewalsdextroamphetamine-amphetami ne (ADDERALL) 30 mg tabletSig: Take 1 tablet by mouth in the morning and 1 tablet in the evening.Disp: 60 tablet Refills: 0Start: 12/08/2023Earliest Fill Date: 12/08/2023lass: eRXNon-formulary For: Attention deficit disorder (ADD) in adultLast ordered: 4 weeks ago (11/10/2023) by Ruby Jose Review Required Pqumie8712/08/2023 02:13 PMProtocol Details This refill cannot be delegatedValid encounter within last 12 monthsTo be filled at: [id number] [place], [place] - [address] [facility] [address] [facility] DRIVERecent VisitsDate Type Provider Dept112/17/22 Office Visit Gaby Palma MD Ang-Db [facility] Med08/11/23 Office Visit Laura Beltran MD Ang-Db [facility] Med02/03/23 Office Visit Laura Beltran MD Ang-Db [facility] Med12/06/22 Office Visit Trena Wyatt PA Ang-Db [facility] Med11/20/22 Office Visit Vaughn Tan FNP Ang[facility] Med09/25/22 Office Visit Laura Beltran MD Ang-Db [facility] Med07/09/22 Office Visit Laura Beltran MD Ang-Db [facility] MedShowing recent visits within past 540 days with a meds authorizing provider and meeting all other requirementsFuture AppointmentsDate Type Provider Dept12/15/23 Appointment Laura Beltran MD Ang-Db [facility] MedShowing future appointments within next 150 days with a meds authorizing provider and meeting all other requirements 64578-3Elanswksl encounter YtssQS8534-71-76Z94:58:19Telephone encounter NoteTXT1.2.840.913199.1.13.104.2.7. 2.601647|[id number] for patient vqun40525-6ZxmhHUAUOKQYDDJCgkqcjjdx C-CDA narrative mmqh073860087Oiwagbu M Fisher [id number] 8UAWEEGOXZMPXMMJEPZMGOC2757-03-16P6 4:58:191.2.840.125975.1.72.3.15|1.2 .840.875870.1.13.104.2.7.2.727879_2 [id number] Sirena Crowe [facility] 2023-12-08 14:12:34 7359-57-71L48:12:34 Anne Marie Durham is a 43 year old femalePt called requesting a refill. Pt is out of medication.[id number] [facility]: Yrpapfsbjrjpxw signed by Mariaa Villegas at 12/08/2023 2:13 PM UVS45170-0Hdpdnucnv encounter WrgwVM4272-09-92Q92:13:35Telephone encounter NoteTXT1.2.840.975619.1.13.104.2.7. 2.459139|[id number] for patient lcfw98030-8FqokLCJBJGSGCPHAsvgeriiq C-CDA narrative [id number] 2CLNGGCZJDXFTOTOUVCNITS2496-75-82Q4 4:13:351.2.840.406304.1.72.3.15|1.2 .840.869287.1.13.104.2.7.2.727879_2 [id number] [facility] 2023-12-04 12:13:53 4813-78-20K11:13:53 1.Anne Marie Durham is a 43 year old femalePt is requesting a referral to Dr Gurjit Romeo, [facility] in [place].Ph [phone] Thxij visit consultation.No appt currently per pt til referral placed.2. Pt is requesting brand name of [employer]- due to the dextroamphetamine-amphetamine (ADDERALL) 30 mg tablet does not like. 00899-8Rlygywuzs encounter EdydHO4962-46-57H97:21:28Telephone encounter NoteTXT1.2.840.676115.1.13.104.2.7. 2.792925|[id number] for patient mdni20929-9GyiyDEMMZRPJAVFEeazpfhcc C-CDA narrative textUT[address] GkxuGudgudvxjWxewzqytsWKCY607617816 7NTAMYEURPWXBJBHLNCIJKB2531-39-32I7 2:21:281.2.840.033616.1.72.3.15|1.2 .840.163340.1.13.104.2.7.2.727879_2 [id number] [facility] 2023-11-27 08:27:14 4319-03-04V01:27:14 error 62652-7Khmvpijtk encounter YuvzBN0762-24-11C66:35:49Telephone encounter NoteTXT1.2.840.061690.1.13.104.2.7. 2.033067|[id number] for patient oueh13168-5FtqrSPBWLUOUIMQWzlbyzylt C-CDA narrative epnk038213932YgJqwglw Crawford[address] TokdNpykjvzttFmfqiojmoEOUD024740774 2EKQFHEJTDJDUJCKZUNEBZJ7105-82-20Q4 8:35:491.2.840.257630.1.72.3.15|1.2 .840.144786.1.13.104.2.7.2.727879_2 [id number] Ravi [facility] 2023-11-10 11:09:04 9457-06-39Y03:09:04 Recent VisitsDate Type Provider Dept112/17/22 Office Visit [...] to with back to 30 mg adderall 01965-8Wizwksfqa encounter QqtfMF2197-37-65X31:09:44Telephone encounter NoteTXT1.2.840.057453.1.13.104.2.7. 2.805467|[id number] for patient qlvr63566-6FwkaAFVMHQVXVEDUzwhdhefg C-CDA narrative textUT[address]TXTX775557755 5PLCTQBGTRWEURMWCYKBYYA8265-12-24V5 1:09:441.2.840.169676.1.72.3.15|1.2 .840.065700.1.13.104.2.7.2.727879_2 [id number] [facility] 2023-11-10 09:11:44 4664-99-49I02:11:44 Anne Marie Durham is a 43 year old femalePt called following up on request. Please advise. 17151-2Fgywqwfzm encounter UdiqGO5869-50-06S52:15:29Telephone encounter NoteTXT1.2.840.337671.1.13.104.2.7. 2.959269|[id number] for patient cvee16923-2ErepKMHQKBUNNABExiybssgo C-CDA narrative wuyd36433275PdflbadMariaa Sykes[id number] 7HDXLPEIISTKVSCYRESCBKR0399-97-80X6 9:15:291.2.840.143029.1.72.3.15|1.2 .840.405408.1.13.104.2.7.2.727879_2 [id number] Mariaa Villegas [facility] 2023-11-08 16:34:25 3758-33-93W99:34:25 Anne Marie Durham is a 43 year old femalePt calling to request a prescription of her correct dosage of medication andrew now has instock the 30mg pillsdextroamphetamine-amphetamine 30 mg tablet (AdderalL)[id number] - [place], [place] - [address] [facility] [place] [address] [facility]genH[facility] [place] [address]Pteud: [phone] Cwdwmdophzzsek signed by Theo Chang at 11/08/2023 4:37 PM NNL17243-0Aacijawlf encounter FnidAL4009-50-84T91:37:37Telephone encounter NoteTXT1.2.840.985108.1.13.104.2.7. 2.751651|[id number] for patient aggl87751-0MeskAJTKSTNNCFLDepdzdlnt C-CDA narrative mynb245584468HfiyTheo Barnett[address] JrahMambednceHiedqfmydYQKN459254515 9LNWZQODHRWGLUWXOFRWCIU6089-47-43J6 6:37:371.2.840.273342.1.72.3.15|1.2 .840.852227.1.13.104.2.7.2.727879_2 [id number] Theo Barnett [facility] 2023-10-08 13:26:52 4769-23-53T46:26:52 Anne Marie Durham is a 43 year old femalePt states that her pharmacy doesn't have dextroamphetamine-amphetamine 30 mg tablet (AdderalL) in stock but they do have dextroamphetamine-amphetamine 20 mg tablet (AdderalL)She is requesting the dosage be changed to 20mg with an adjusted quantity to equal her current 30mg dosage. She states she currently takes two 30mg pills daily. Please contact pt if necessary [phone] (home)[facility][id number] [place], [place] - [address] [facility]Command Information [facility] HEALTHPhone: Nbqbyhqmokdkiu signed by Say Ravi at 10/08/2023 1:30 PM GRP99592-5Guiwqighi encounter JhsnHH7846-09-82E23:30:43Telephone encounter NoteTXT1.2.840.371559.1.13.104.2.7. 2.314783|[id number] for patient lajm56804-6TubfNRLTFFOGOCTWmikzgcth C-CDA narrative yzdy986256489SkSuysyw Say[address] WswvTnvqgxrikBrktvxxafZDUG242385122 4VHCNTGOEXFYREIESJZTGVR3155-09-85K5 3:30:431.2.840.234646.1.72.3.15|1.2 .840.378885.1.13.104.2.7.2.727879_1 [id number] Ravi Deal [facility] 2023-07-03 11:58:29 5292-82-27W60:58:29 Recent VisitsDate Type Provider Dept 02/03/23 Office Visit Laura Beltran MD [facility] 12/06/22 Office Visit Trena Wyatt PA [facility] 11/20/22 Office Visit Vaughn Tan FNP [facility] 09/25/22 Office Visit Laura Beltran MD [facility] 07/09/22 Office Visit Laura Beltran MD [facility] 06/04/22 Office Visit Laura Beltran MD AngDb [facility] Showing recent visits within past 540 days with a meds authorizing provider and meeting all other requirementsFuture AppointmentsNo visits were found meeting these conditions.Showing future appointments within next 150 days with a meds authorizing provider and meeting all other requirementsLast refill wasdextroamphetamine-amphetamine (ADDERALL) 30 mg tablet 60 tablet 0 06/09/2023 04346-4Nlrlegysv encounter UwtaSC1141-10-88W79:58:50Telephone encounter NoteTXT1.2.840.048276.1.13.104.2.7. 2.439216|[id number] for patient yjsy98548-0QaluBOUDICITYH[address]TXTX[address] 7BRTSAAZBPNQGNQQUDRSPMF4772-55-27I0 1:58:501.2.840.385085.1.72.3.15|1.2 .840.922451.1.13.104.2.7.2.727879_1 [id number] [facility] 2023-07-03 11:50:58 6883-99-92Y90:50:58 Anne Marie Durham is a 42 year old femalePt calling to have refill on medication and has 10 supplements left.dextroamphetamine-amphetamine (ADDERALL) 30 mg tabletPlease [facility] #[id number] - [place], [place] - [facility] [address] [facility] [address] [address]Roiin: [phone] Luutnwllyaqsau signed by Yao Winston at 07/03/2023 11:54 AM BJZ31705-9Snfzusfff encounter KdqtXT2021-91-81N84:54:26Telephone encounter NoteTXT1.2.840.757357.1.13.104.2.7. 2.200867|[id number] for patient fjuk68525-0CkpmROJMNDVAQS[address]TXTX[address] 1GEOIPXVNJFKKBXNXIARNZR8261-99-70E8 1:54:261.2.840.994598.1.72.3.15|1.2 .840.671550.1.13.104.2.7.2.727879_1 [id number] [facility] 2023-06-16 08:03:57 1681-94-01N93:03:57 Patient presented to clinic with c/o face [...] verbalized understanding.Sirena Crowe LVN 06/16/2023 8:08 AM 63045-9Jjocyxxta encounter YkenTA5477-21-04K09:08:53Telephone encounter NoteTXT1.2.840.416776.1.13.104.2.7. 2.138892|[id number] for patient icnm46376-0FhinUV797759169Vrclgul M Fisher [address] NaxzShorxhrquFzrztviuaETDP954334562 8DLRCLLZNPLZZDSWQGZMTAP2783-64-42R8 8:08:531.2.840.224202.1.72.3.15|1.2 .840.037019.1.13.104.2.7.2.727879_1 [id number] Sirena Crowe [facility] 2023-06-09 10:48:12 2892-17-87N90:48:12 Recent VisitsDate Type Provider Dept 02/03/23 Office Visit Laura Beltran MD [facility] 12/06/22 Office Visit Trena Wyatt PA [facility] 11/20/22 Office Visit Vaughn Tan FNP [facility] 09/25/22 Office Visit Laura Beltran MD [facility] 07/09/22 Office Visit Laura Beltran MD [facility] 06/04/22 Office Visit aLura Beltran MD [facility] Showing recent visits within past 540 days with a meds authorizing provider and meeting all other requirementsFuture AppointmentsNo visits were found meeting these conditions.Showing future appointments within next 150 days with a meds authorizing provider and meeting all other requirementsLast refill wasdextroamphetamine-amphetamine (ADDERALL) 30 mg tablet 60 tablet 0 05/05/2023 62333-0Gdmazapan encounter GxyfON1957-83-13G54:48:36Telephone encounter NoteTXT1.2.840.168211.1.13.104.2.7. 2.948533|[id number] for patient cdbl87859-0TeytTFJLEGUBIO[address]TXTX[address] 0RBOZKLJWVYTJSIYTZHBAUU6531-08-73G3 0:48:361.2.840.570357.1.72.3.15|1.2 .840.194644.1.13.104.2.7.2.727879_1 [id number] [facility] 2023-06-09 09:19:15 2180-05-40G88:19:15 Patient is requesting a refill.[facility] #[id number] [facility] ANAKTUVUK PASSOHIOHEALTH [facility] HEALTH CENTERPhone: [address]-4Tjjnqkcgn encounter HyrkIG1742-32-47L53:19:48Telephone encounter NoteTXT1.2.840.085668.1.13.104.2.7. 2.126614|[id number] for patient rnoc73579-8NafjGKPRUDBONA[address] StreetTXTX[address] 5CGBTUGFYSLEJZWTQOECSJV1894-21-38P1 9:19:481.2.840.797923.1.72.3.15|1.2 .840.657209.1.13.104.2.7.2.727879_1 [id number] [facility]"
--- NOTE | 2024-03-18 23:03 | ER ---
Nurse's Notes [facility] Name: Anne Marie Cruz Age: 43 yrs Sex: Female : 1980 Arrival Date: 03/18/2024 Time: 21:53 Bed IW1 Private MD: Diagnosis: Noncardiac chest pain, neurotic excoriations, Acute anxiety Presentation: 03/18 22:19 Chief complaint: Patient states: "I have pain all over my body. I have abdominal pain cm10 and chest pain and it is sharp. I also have flies.". Coronavirus screen: Client denies travel out of the [place] in the last 14 days. At this time, the client does not indicate any symptoms associated with coronavirus-19. Ebola Screen: Patient denies travel to an Ebola-affected area in the 21 days before illness onset. No symptoms or risks identified at this time. Initial Sepsis Screen: Does the patient meet any 2 criteria? No. Patient's initial sepsis screen is negative. Does the patient have a suspected source of infection? No. Patient's initial sepsis screen is negative. Risk Assessment: Do you want to hurt yourself or someone else? Patient reports no desire to harm self or others. Onset of symptoms was March 18, 2024. 22:19 Method Of Arrival: Ambulatory cm10 22:19 Acuity: PARISH 3 cm10 22:40 Note pt not in lobby. kl Triage Assessment: 22:20 General: Appears in no apparent distress. uncomfortable, Behavior is cooperative. cm10 Neuro: No deficits noted. Level of Consciousness is awake, alert, obeys commands, Oriented to person, place, time, situation, Appropriate for age. Respiratory: Airway is patent Respiratory effort is even, unlabored, Respiratory pattern is regular, symmetrical. Historical: - Allergies: 22:20 Latex; cm10 - PMHx: 22:20 Anxiety; Bipolar disorder; Chronic pain; cm10 - PSHx: 22:20 hernia repair; cm10 - Immunization history:: Adult Immunizations up to date. - Infectious Disease History:: Denies. - Social history:: Smoking status: Patient reports the use of cigarette tobacco products, smokes one pack cigarettes per day. Screenin:15 [facility] ED Fall Risk Assessment (Adult) History of falling in the last 3 months, kl including since admission No falls in past 3 months (0 pts). Abuse screen: Denies threats or abuse. Nutritional screening: No deficits noted. Tuberculosis screening: No symptoms or risk factors identified. Assessment: 22:15 General: Appears unkempt, Behavior is anxious, restless. Pain: Complains of pain in kl head chest abdomen neck Pain began gradually. Cardiovascular: Reports chest pain, Rhythm is sinus rhythm. GI: Reports upper abdominal pain. Derm: open areas to scalp. 22:40 General: PT seen walking out of ER.. cm10 23:03 General: Pt has been in parking lot with significant other smoking cigarettes the vc1 entire time. . Vital Signs: 22:19 BP 141 / 89; Pulse 78; Resp 18; Temp 98.4; Pulse Ox 97% on R/A; Weight 63.5 kg; Height cm10 5 ft. 4 in. ; Pain 10/10; 22:19 Body Mass Index 24.03 (63.50 kg, 162.56 cm) cm10 22:19 Pain Scale: Adult cm10 ED Course: 21:55 Patient arrived in ED. im 21:58 Patient's name was called from ER lobby. No response. cm10 22:02 Reed Perea MD is Attending Physician. sp4 22:20 Triage completed. cm10 22:21 Arm band placed on Patient placed in an exam room, on a stretcher. EKG completed in cm10 triage. Results shown to MD. 22:21 EKG done, by ED staff, reviewed by Reed Perea MD. cm10 23:03 No provider procedures requiring assistance completed. Patient did not have IV access vc1 during this emergency room visit. O2 via room air. Administered Medications: 22:59 Not Given (Patient Eloped): mg PO once kb3 23:13 Drug: Diazepam PO 10 mg PO once Route: PO; vc1 23:13 Follow up: Response: Medication administered at discharge. vc1 Medication: 23:04 VIS not applicable for this client. vc1 Outcome: 23:03 Discharge ordered by . sp4 23:04 Discharged to Pt has spent entire visit in the parking lot vc1 23:04 Condition: stable 23:04 Instructed on Pt not available to sign paperwork. Left facitlity 23:05 Patient left the ED. vc1 23:14 Patient left the ED. vc1 Signatures: Nayla Moreno, HILLARY RN kl Mariaa Walker RN RN vc1 Reed Perea MD MD sp4 Heather Torres Clarissa, RN RN cm10 Tyler, Anna Marie THORNTON kb3
--- NOTE | 2024-03-18 23:03 | EDPHYS ---
Physician Documentation [facility] Name: Anne Marie Cruz Age: 43 yrs Sex: Female : 1980 Arrival Date: 03/18/2024 Time: 21:53 Bed IW1 Private MD: ED Physician Reed Perea HPI: 03/18 22:03 This 43 yrs old Female presents to ER via Unassigned with complaints of Chest sp4 Pain, Pain All Over. 23:08 43-year-old female presents with complaint of acute onset of chest pain today also sp4 generalized pain also multiple scalp excoriations. Patient was here complaining of scalp itching discomfort and excoriations yesterday as well.. Historical: - Allergies: 22:20 Latex; cm10 - PMHx: 22:20 Anxiety; Bipolar disorder; Chronic pain; cm10 - PSHx: 22:20 hernia repair; cm10 - Immunization history:: Adult Immunizations up to date. - Infectious Disease History:: Denies. - Social history:: Smoking status: Patient reports the use of cigarette tobacco products, smokes one pack cigarettes per day. ROS: 23:08 Constitutional: Negative for fever, chills, and weight loss, positive chest pains, sp4 positive areas of hair loss and itching to the scalp. 23:08 All other systems are negative, Exam: 23:07 Constitutional: This is a well developed, well nourished patient who is awake, alert, sp4 and in no acute distress. Head/Face: Normocephalic, atraumatic. Multiple scalp excoriations with some areas of hair loss. Eyes: Pupils equal round and reactive to light, extra-ocular motions intact. Lids and lashes normal. Conjunctiva and sclera are not injected. Cornea within normal limits. Periorbital areas with no swelling, redness, or edema. ENT: Nares patent. No nasal discharge, no septal abnormalities noted. Tympanic membranes are normal and external auditory canals are clear. Oropharynx with no redness, swelling, or masses, exudates, or evidence of obstruction, uvula midline. Mucous membranes moist. Neck: Trachea midline, no thyromegaly or masses palpated, and no cervical lymphadenopathy. Supple, full range of motion without nuchal rigidity, or vertebral point tenderness. Chest/axilla: Normal chest wall appearance and motion. Nontender with no deformity. No lesions are appreciated. Cardiovascular: Regular rate and rhythm with a normal S1 and S2. No gallops, murmurs, or rubs. Normal PMI, no JVD. No pulse deficits. Respiratory: Lungs have equal breath sounds bilaterally, clear to auscultation and percussion. No rales, rhonchi or wheezes noted. No increased work of breathing, no retractions or nasal flaring. Abdomen/GI: Soft, with normal bowel sounds. No distension or tympany. No guarding or rebound. No evidence of tenderness throughout. Back: No spinal tenderness. No costovertebral tenderness. Skin: Warm, dry with normal turgor. Normal color with no rashes, no lesions, and no evidence of cellulitis. MS/ Extremity: Pulses equal, no cyanosis. Neurovascular intact. Full, normal range of motion. Neuro: Awake and alert, GCS 15, oriented to person, place, time, and situation. Cranial nerves II-XII grossly intact. Motor strength 5/5 in all extremities. Sensory grossly intact. Psych: Awake, alert, with orientation to person, place and time. Behavior, mood, and affect are within normal limits 23:07 ECG was reviewed by the Attending Physician. EKG 2223 normal sinus rhythm with a rate of 73. Normal EKG. Vital Signs: 22:19 BP 141 / 89; Pulse 78; Resp 18; Temp 98.4; Pulse Ox 97% on R/A; Weight 63.5 kg; Height cm10 5 ft. 4 in. ; Pain 10/10; 22:19 Body Mass Index 24.03 (63.50 kg, 162.56 cm) cm10 22:19 Pain Scale: Adult cm10 MDM: 22:03 Patient medically screened. sp4 23:09 Differential diagnosis: anxiety, costochondritis, herpes zoster, peptic ulcer disease. sp4 The patient was not given aspirin in the Emergency Department. Aspirin not given, patient refused. Data reviewed: vital signs, nurses notes, old medical records, EKG. ED course: Patient was found outside smoking. Patient stable for discharge home at this time. EKG is normal. No additional workup indicated. Suspect methamphetamine abuse.. 03/18 22: Order name: EKG; Complete Time: : sp4 05/30 22:03 Order name: EKG - Nurse/Tech; Complete Time: 22:26 sp4 EC:07 Rate is 73 beats/min. Rhythm is regular, Normal Sinus Rhythm. QRS [place] is Normal. [place] sp4 interval is normal. QRS interval is normal. QT interval is normal. No Q waves. T waves are Normal. No ST changes noted. Clinical impression: Normal ECG. Interpreted by me. Reviewed by me. Administered Medications: 22:59 Not Given (Patient Eloped): [id number] mg PO once kb3 23:13 Drug: Diazepam PO 10 mg PO once Route: PO; vc1 23:13 Follow up: Response: Medication administered at discharge. vc1 Disposition Summary: 03/18/24 23:03 Discharge Ordered Notes: EKG is normal , No sings of acute emergency Location: Home sp4 Problem: new sp4 Symptoms: have improved sp4 Condition: Stable sp4 Diagnosis - Noncardiac chest pain, neurotic excoriations, Acute anxiety sp4 Followup: sp4 - With: Private Physician - When: 7 - 10 days - Reason: Recheck today's complaints Discharge Instructions: - Discharge Summary Sheet sp4 - Nonspecific Chest Pain, Adult, [place] sp4 Forms: - Patient Portal Instructions sp4 Signatures: Dispatcher [employer] EDMS Mariaa Walker RN RN vc1 Reed Perea MD MD sp4 Marcia Hadley RN RN cm10 Anna Marie Scott RN kb3
[2024-03-18] MEDS ORDERED: DIAZEPAM 5 MG TABLET ONE (23:09)
[2024-03-19 00:01] VITALS: BP 141/89; TEMP 98.4; O2SAT 97
--- NOTE | 2024-03-19 16:48 | EKG ---
Test Date: 2024-03-18 Test Time: 22:23:24 Security Operations Specialist: MARCELLE MEASUREMENT RESULTS: Intervals: Rate: 73 MS: 132 QRSD: 94 QT: 360 QTc: 396 [place]: P: 43 MS: 132 QRS: 47 T: 51 INTERPRETIVE STATEMENTS: Normal sinus rhythm Septal infarct, age undetermined Abnormal ECG Compared to ECG 09/02/2023 12:09:15 Myocardial infarct finding now present Sinus tachycardia no longer present Atrial abnormality no longer present Electronically Signed On 03-19-24 16:47:19 CDT by Arash Quintero
== END 2024-03-18 23:14 | disposition home or self-care (01) ==
LOC: ER 21:53
DX: R07.89 Other chest pain (principal); L98.1 Factitial dermatitis; F41.9 Anxiety disorder, unspecified; F17.210 Nicotine dependence, cigarettes, uncomplicated
CPT/HCPCS: 93005; 99284

== ENCOUNTER 2024-04-02 02:25 | Emergency (ER) | payer OTHER ==
--- OUTSIDE RECORDS SUMMARY | 2024-04-02 02:33 | XMS REPORT | Continuity of Care Document ---
Author Name Unknown Address [address] [facility] [address] [place] [address] [facility] Address [address] [facility] [address] [place] [address] Care Team Providers Care Pulmonology Technician Name Role Phone Roseanne Otto TAYLOR Primary Care Physician [id number] [phone] Laura Beltran MD Attending Clinician + [phone] ENEIDA CANNON Attending Clinician Unavail able LAURA BELTRAN Attending Clinician UnaVivienne Be Attending Clinician [phone] Unknown, Attending Attending Clinician Unavailab VIVIENNE Koo Attending Clinician Unavailable Doctor Unassigned, [place] Attending Clinician U GABY Pink Attending Clinician Unavailable GABY PALMA Attending Clinician Unavailable MAIKEL SIGALA Attending Clinician Unavailable MC STRONG Attending Clinician Unavailable Mc Strong MD Attending Clinician [phone] Feroz Barakat MD Attending Clinician [phone] FEROZ BARAKAT Attending Clinician Unavailab le YESSENIA CALL Attending Clinician Unavailable [facility] Attending Clinician Un available Yessenia Cruz Attending Clinician [phone] UNKNOWN, ATTENDING Attending Clinician Unavailab le Provider, [facility] Attending Clinician Unavailable FLOR INFANTE Attending Clinician Unavailable Naresh PARKER, Flor Attending Clinician [phone] Trena Fairbanks Attending Clinician [phone] STU BORGES Attending Clinician Unavailab TRENA Rinaldi Attending Clinician Unavailable VAUGHN TAN Attending Clinician Unavailable Britney DIRECTOR OF LAND ACQUISITION, Vaughn Attending Clinician [phone] ARNEL ALARCON Attending Clinician Unavailable MILA KEYS Attending Clinician Unavailable Jamar DIRECTOR OF LAND ACQUISITION, Mila Attending Clinician [phone] MUNDO PEDROZA Attending Clinician Unavailable Yovany DIRECTOR OF LAND ACQUISITION, Mundo Attending Clinician [phone] Luis Fernando THORNTON, Lora Attending Clinician Unavailable Marc Khoury MD Attending Clinician [phone] Marilyn DIRECTOR OF LAND ACQUISITION, Nayla Larios Attending Clinician + [phone] JORDAN HALEY Attending Clinician UnavailRoxy ANGELPJhoana Attending Clinician [phone] JHOANA ARNOLD Attending Clinician Unavailalthea moore Pob, [facility] Attending Clinician Unavailwen Seaman MD, Cristal Seth Attending Clinician [phone] CRISTAL SEAMAN Attending Clinician Unava KELSI Borrego Attending Clinician Unavailab Kelsi Wang DO Attending Clinician [phone] JHOANA ARNOLD Admitting Clinician Unavailalthea moore Payers Payer Name Policy Type Policy Number Effective Date Expirati on Date Source [facility] MEDICAID [id number] 2017 00:00:00 [facility] [id number] 2429-12-17 00:00:00 [place] [id number] 2017 00:00:00 Problems Condition Name Condition Details Condition Category Status Onset Date Resolution Date Last Treatment Date Treating Clinician Comments Source Cellulitis of left lower extremity Cellulitis of left lower extremity Disease Active 11-20 00:00: 00 [facility] Abscess Abscess Disease Active 11-20 00:00: 00 [facility] Skin sore Skin sore Disease Active 2- 00:00: 00 [facility] Follow-up exam Follow-up exam Disease Active 2- 00:00: 00 [facility] Bipolar 1 disorder, manic, mild Bipolar 1 disorder, manic, mild Disease Active 9- 00:00: 00 [facility] Attention deficit disorder (ADD) in adult Attention deficit disorder (ADD) in adult Disease Active 8- 00:00: 00 [facility] Allergies, Adverse Reactions, Alerts Allergy Name Allergy Type Status Severity Reaction(s) Onset Date Inactive Date Treating Clinician Comments Source NO KNOWN ALLERGIE S Drug Class Active [facility] Social History Social Habit Start Date Stop Date Quantity Comments Source Gender identity [facility] Sexual orientation U [facility] Alcoholic beverage intake 2024-01-07 00:00:00 2024-01-07 00:00:00 Ex-drinker (finding) [facility] Alcohol intake 2024-01-07 00:00:00 2024-01-07 00:00:00 Ex-drinker (finding) [facility] Tobacco use and exposure 2024-01-04 00:00:00 2024-01-04 00:00:00 Smokeless tobacco non-user [facility] History of Social function 2023-08-11 00:00:00 2023-08-11 00:00:00 [facility] Exposure to SARS-CoV-2 (event) 2023-01-28 00:00:00 2023-02-07 09:18:00 Not sure [facility] History of tobacco use 2010-03-28 00:00:00 Cigarette Smoker [facility] Sex assigned at 1980 00:00:00 1980 00:00:00 [facility] Smoking Status Start Date Stop Date Source Smokes tobacco daily 2024-01-04 00:00:00 [facility] Ex-smoker 2022-07-09 00:00:00 2022-07-09 00:00:00 U [facility] Medications Ordered Medication Name Filled Medication Name Start Date Stop Date Current Medication? Ordering Clinician Indication Dosage Frequency Signature (SIG) Comments Components Source dextroamphe tamine-amph etamine (ADDERALL) 30 mg tablet 5-20 00:00: 00 Yes [id number] 30mg Take 1 tablet by mouth in the morning and 1 tablet in the evening. [facility] dextroamphe tamine-amph etamine (ADDERALL) 30 mg tablet 4-24 00:00: 00 03-08 00:00 :00 No [id number] 30mg Take 1 tablet by mouth in the morning and 1 tablet in the evening. [facility] dextroamphe tamine-amph etamine (ADDERALL) 30 mg tablet 3-18 00:00: 00 Yes [id number] 30mg Take 1 tablet by mouth in the morning and 1 tablet in the evening. [facility] ketorolac (TORADOL) injection 30 mg 17 21:45: 00 01-03 21:11 :00 No [id number] 30mg [facility] predniSONE 20 mg tablet 17 00:00: 00 01-06 00:00 :00 No [id number] 40mg Take 2 tablets by mouth in the morning for 5 days. [facility] hydrocortis one 2.5 % cream 17 00:00: 00 01-06 00:00 :00 No [id number] Apply to area(s) 2 (two) times daily for 7 days. [facility] dextroamphe tamine-amph etamine (ADDERALL) 20 mg tablet 2-22 00:00: 00 03-08 00:00 :00 No [id number] 20mg Take 1 tablet by mouth in the morning and 1 tablet at noon and 1 tablet in the evening. [facility] dextroamphe tamine-amph etamine (ADDERALL) 30 mg tablet 2-22 00:00: 00 12-31 00:00 :00 No [id number] 30mg Take 1 tablet by mouth in the morning and 1 tablet in the evening. [facility] dextroamphe tamine-amph etamine (ADDERALL) 30 mg tablet 12-09 00:00: 00 Yes [id number] 30mg Take 1 tablet by mouth in the morning and 1 tablet in the evening. [facility] dextroamphe tamine-amph etamine (ADDERALL) 30 mg tablet 12-08 00:00: 00 Yes [id number] 30mg Take 1 tablet by mouth in the morning and 1 tablet in the evening. [facility] dextroamphe tamine-amph etamine (ADDERALL) 30 mg tablet 11-10 00:00: 00 12-08 00:00 :00 No [id number] 30mg Take 1 tablet by mouth in the morning and 1 tablet in the evening. [facility] ketorolac (TORADOL) injection 30 mg 2022-10 23:45: 00 10-16 23:05 :00 No [id number] 30mg [facility] ibuprofen 800 mg tablet 2022-10 00:00: 00 Yes [id number] 800mg Take 1 tablet by mouth every 8 (eight) hours as needed (With meals). [facility] promethazin e-dextromet horphan 6.25-15 mg/5 mL syrup 2022-10 00:00: 00 Yes [id number] 5mL Take 5 mL by mouth 4 (four) times daily as needed for Cough. [facility] albuterol 90 mcg/actuati on inhaler 2022-10 00:00: 00 Yes [id number] 2{puff} Inhale 2 Puffs every 6 (six) hours as needed for Wheezing or Shortness of Breath. [facility] fluticasone propionate 50 mcg/actuati on nasal spray 2022-10 00:00: 00 Yes [id number] Use two sprays in each nostril daily for a week, then use one spray in each nostril daily [facility] nirmatrelvi r-ritonavir 300 mg (150 mg x 2)-100 mg tablet 2022-10 00:00: 00 11-10 00:00 :00 No [id number] 3{tbl} Take 3 tablets by mouth in the morning and 3 tablets in the evening. [facility] dextroamphe tamine-amph etamine (ADDERALL) 20 mg tablet 2022-10 220 00:00: 00 11-10 00:00 :00 No [id number] 20mg Take 1 tablet by mouth in the morning and 1 tablet at noon and 1 tablet in the evening. [facility] dextroamphe tamine-amph etamine (ADDERALL) 30 mg tablet 2022-10 2- 00:00: 00 Yes [id number] 30mg Take 1 tablet by mouth in the morning and 1 tablet in the evening. [facility] dextroamphe tamine-amph etamine (ADDERALL) 30 mg tablet 2022-10 00:00: 00 10-06 00:00 :00 No [id number] 30mg Take 1 tablet by mouth in the morning and 1 tablet in the evening. [facility] dextroamphe tamine-amph etamine (ADDERALL) 30 mg tablet 2022-10 1 00:00: 00 Yes [id number] 30mg Take 1 tablet by mouth in the morning and 1 tablet in the evening. [facility] dextroamphe tamine-amph etamine (ADDERALL) 30 mg tablet 2022-10 1 00:00: 00 09-10 00:00 :00 No [id number] 30mg Take 1 tablet by mouth in the morning and 1 tablet in the evening. [facility] dextroamphe tamine-amph etamine (ADDERALL) 30 mg tablet 2022-10 1 00:00: 00 Yes [id number] 30mg Take 1 tablet by mouth in the morning and 1 tablet in the evening. [facility] dextroamphe tamine-amph etamine (ADDERALL) 30 mg tablet 2022-10 0-23 00:00: 00 09-03 00:00 :00 No [id number] 30mg Take 1 tablet by mouth in the morning and 1 tablet in the evening. [facility] VENTOLIN HFA 90 mcg/actuati on inhaler 2022-10 0 00:00: 00 08-11 00:00 :00 No [id number] INHALE 2 PUFFS BY MOUTH EVERY 6 HOURS NEEDED FOR WHEEZING [facility] ketorolac (TORADOL) injection 30 mg 07-17 02:30: 00 07-17 01:48 :00 No [id number] [facility] tra[facility] mg tablet 07-17 00:00: 00 Yes 50mg Take 1 tablet by mouth in the morning and 1 tablet in the evening. [facility] hydrOXYzine 50 mg tablet 07-16 00:00: 00 08-11 00:00 :00 No [id number] 50mg Take 1 tablet by mouth in the morning and 1 tablet at noon and 1 tablet in the evening. [facility] diphenhydrA MINE (BENADRYL) tablet 25 mg 07-15 09:45: 00 07-15 09:40 :00 No 25mg 25 mg, Oral, ONCE, 1 dose, On Fri07/15/23 at 0445, CAMILA [facility] dextroamphe tamine-amph etamine (ADDERALL) 30 mg tablet 07-07 00:00: 00 08-11 00:00 :00 No [id number] 30mg Take 1 tablet by mouth in the morning and 1 tablet in the evening. [facility] VENTOLIN HFA 90 mcg/actuati on inhaler 9-14 00:00: 00 07-28 00:00 :00 No [id number] INHALE 2 PUFFS BY MOUTH EVERY 6 HOURS NEEDED FOR WHEEZING [facility] dextroamphe tamine-amph etamine (ADDERALL) 30 mg tablet 21 00:00: 00 07-07 00:00 :00 No [id number] 30mg Take 1 tablet by mouth in the morning and 1 tablet in the evening. [facility] VENTOLIN HFA 90 mcg/actuati on inhaler 8-18 00:00: 00 07-03 00:00 :00 No [id number] INHALE 2 PUFFS BY MOUTH EVERY 6 HOURS NEEDED FOR WHEEZING [facility] VENTOLIN HFA 90 mcg/actuati on inhaler 7-22 00:00: 00 06-06 00:00 :00 No [id number] INHALE 2 PUFFS BY MOUTH EVERY 6 HOURS NEEDED FOR WHEEZING [facility] dextroamphe tamine-amph etamine (ADDERALL) 30 mg tablet 17 00:00: 00 06-09 00:00 :00 No [id number] 30mg Take 1 tablet by mouth in the morning and 1 tablet in the evening. [facility] VENTOLIN HFA 90 mcg/actuati on inhaler 6-20 00:00: 00 05-10 00:00 :00 No [id number] INHALE 2 PUFFS BY MOUTH EVERY 6 HOURS NEEDED FOR WHEEZING [facility] dextroamphe tamine-amph etamine (ADDERALL) 30 mg tablet 6-15 00:00: 00 05-05 00:00 :00 No [id number] 30mg Take 1 tablet by mouth in the morning and 1 tablet in the evening. [facility] dextroamphe tamine-amph etamine (ADDERALL) 30 mg tablet 5-22 00:00: 00 04-03 00:00 :00 No [id number] 30mg Take 1 tablet by mouth in the morning and 1 tablet in the evening. [facility] VENTOLIN HFA 90 mcg/actuati on inhaler 5-20 00:00: 00 04-08 00:00 :00 No [id number] INHALE 2 PUFFS BY MOUTH EVERY 6 HOURS NEEDED FOR WHEEZING [facility] ketorolac (TORADOL) injection 30 mg 4-21 15:45: 00 02-07 14:58 :00 No [id number] 30mg [facility] promethazin e-dextromet horphan 6.25-15 mg/5 mL syrup -21 00:00: 00 02-18 04:59 :00 No [id number] 5mL Take 5 mL by mouth 4 (four) times daily for 10 days. [facility] oseltamivir (TAMIFLU) 75 mg capsule 4-21 00:00: 00 02-13 04:59 :00 No [id number] 75mg Take 1 capsule by mouth in the morning and 1 capsule in the evening. Do all this for 5 days. [facility] traZODone 100 mg tablet 02-03 10:06: 00 02-03 00:00 :00 No 100mg Take 1 tablet by mouth at bedtime. [facility] dextroamphe tamine-amph etamine (ADDERALL) 30 mg tablet 02-03 00:00: 00 03-10 00:00 :00 No [id number] 30mg Take 1 tablet by mouth in the morning and 1 tablet in the evening. [facility] dextroamphe tamine-amph etamine (ADDERALL) 30 mg tablet -20 00:00: 00 02-03 00:00 :00 No [id number] 30mg Take 1 tablet by mouth in the morning and 1 tablet in the evening. [facility] promethazin e-dextromet horphan 6.25-15 mg/5 mL syrup 18 00:00: 00 01-15 04:59 :00 No [id number] 5mL Take 5 mL by mouth 4 (four) times daily for 10 days. [facility] traZODone 100 mg tablet 01-03 17:01: 55 Yes 100mg Take 1 tablet by mouth at bedtime. [facility] triamcinolo ne acetonide 0.1 % cream 17 00:00: 00 08-11 00:00 :00 No [id number] Apply to area(s) 2 (two) times daily. [facility] albuterol 90 mcg/actuati on inhaler 317 00:00: 00 06-06 00:00 :00 No [id number] 2{puff} Inhale 2 Puffs every 6 (six) hours as needed for Wheezing. [facility] benzonatate 100 mg capsule 317 00:00: 00 02-03 00:00 :00 No [id number] 200mg Take 2 capsules by mouth every 8 (eight) hours as needed for Cough. [facility] predniSONE 20 mg tablet 17 00:00: 00 01-09 04:59 :00 No [id number] 20mg Take 1 tablet by mouth in the morning for 5 days. [facility] albuterol (VENTOLIN HFA) 90 mcg/actuati on inhaler 314 00:00: 00 03-08 23:29 :11 No [id number] INHALE 2 PUFFS BY MOUTH EVERY 6 HOURS NEEDED FOR WHEEZING [facility] dextroamphe tamine-amph etamine (ADDERALL) 30 mg tablet 20 00:00: 00 01-06 00:00 :00 No [id number] 30mg Take 1 tablet by mouth in the morning and 1 tablet in the evening. [facility] azelastine 137 mcg (0.1 %) nasal spray 12-06 00:00: 00 08-11 00:00 :00 No [id number] 1{spray } Use 1 [place] in each nostril in the morning and 1 [place] in the evening. Use in each nostril as directed [facility] benzonatate (TESSALON PERLES) 100 mg capsule 17 00:00: 00 02-03 00:00 :00 No [id number] 100mg Take 1 capsule by mouth every 8 (eight) hours as needed for Cough. [facility] methylPREDN ISolone (MEDROL, ADAM,) 4 mg tablets 17 00:00: 00 02-03 00:00 :00 No [id number] Take by mouth SEE-INSTRU CTIONS. follow package directions [facility] albuterol 90 mcg/actuati on inhaler 12-06 00:00: 00 12-31 00:00 :00 No [id number] 2{puff} Inhale 2 Puffs every 6 (six) hours as needed for Wheezing. [facility] triamcinolo ne acetonide 0.1 % cream 2 00:00: 00 01-03 00:00 :00 No [id number] Apply to area(s) 2 (two) times daily. [facility] sulfamethox azole-trime thoprim 800-160 mg per tablet 11-19 00:00: 00 12-06 00:00 :00 No [facility] hydrOXYzine 25 mg tablet 11-15 00:00: 00 02-03 00:00 :00 No TAKE 1-2 TABLET BY MOUTH FOR SLEEP [facility] mupirocin 2 % ointment - 00:00: 00 02-03 00:00 :00 No APPLY SPARINGLY TOPICALLY TO THE AFFECTED AREA TWICE DAILY [facility] SENNA 8.6 mg tablet 11-13 00:00: 00 02-03 00:00 :00 No TAKE 2-4 TABLETS BY MOUTH DIRECTED NEEDED. DO NOT EXCEED 4 TABLETS IN 24 HOURS [facility] predniSONE 20 mg tablet 11-13 00:00: 00 12-06 00:00 :00 No 20mg Take 20 mg by mouth every morning. [facility] omeprazole 40 mg capsule - 00:00: 00 02-03 00:00 :00 No TAKE 1 CAPSULE BY MOUTH IN THE MORNING [facility] FAMOTIDINE 11-05 00:00: 00 No LAMOTRIGINE -12 00:00: 00 No dextroamphe tamine-amph etamine (ADDERALL) 30 mg tablet 1-11 00:00: 00 12-09 00:00 :00 No [id number] 30mg Take 1 tablet by mouth in the morning and 1 tablet in the evening. [facility] ACYCLOVIR 2021-10 00:00: 00 No acyclovir 400 mg tablet 2021-10 00:00: 00 02-03 00:00 :00 No 400mg Take 1 tablet by mouth every 8 (eight) hours. [facility] TAKE 1-2 TABLET(S) FOR SLEEP 2021-10 00:00: 00 No 25 TAKE 1 TABLET DAILY. 2021-10 00:00: 00 No 100 AMPHET/DEXT R 30MG Tablets 2021-10 00:00: 00 No dextroamphe tamine-amph etamine (ADDERALL) 30 mg tablet 2021-10 00:00: 00 Yes [id number] 30mg Take 1 tablet by mouth in the morning and 1 tablet in the evening. [facility] FAMOTIDINE 2021-10 00:00: 00 No OMEPRAZOLE 2021-10 00:00: 00 No BUSPIRONE 2021-10 2 00:00: 00 No TRAMADOL HCL 2021-10 00:00: 00 No dextroamphe tamine-amph etamine (ADDERALL) 30 mg tablet 2021-10 00:00: 00 10-10 00:00 :00 No [id number] 30mg Take 1 tablet by mouth in the morning and 1 tablet in the evening. [facility] TAKE 1 TABLET DAILY. 2021-10 00:00: [...] 1-16 00:00: 00 09-25 00:00 :00 No [id number] 20mg Take 1 tablet by mouth in the morning and 1 tablet in the evening. [facility] TRAZODONE 2021-10 0- 00:00: 00 No TRAZODONE 2021-1028 00:00: 00 No dextroamphe tamine-amph etamine (ADDERALL) 20 mg tablet 2021-10 0-24 00:00: 00 Yes [id number] 20mg Take 1 tablet by mouth in the morning and 1 tablet in the evening. [facility] diazePAM (VALIUM) injection 2 mg 2021-10 02:15: 00 08-08 02:20 :00 No 2mg 2 mg, Slow IV Push, ONCE, 1 dose, On Fri08/07/22 at 2115, STAT [facility] diazePAM (VALIUM) injection 2 mg 2021-10 01:45: 00 08-08 01:43 :00 No 2mg 2 mg, Slow IV Push, ONCE, 1 dose, On Fri08/07/22 at 2045, STAT [facility] NaCl 0.9% (NS) bolus infusion 1,000 mL 2021-10 22:00: 00 08-08 00:30 :00 No 1000mL at 999 mL/hr, 1,000 mL, IV Infusion, ONCE, 1 dose, On Fri08/07/22 at 1700, CAMILA [facility] diazePAM (VALIUM) tablet 5 mg 2021-10 22:00: 00 08-07 21:48 :00 No 5mg 5 mg, Oral, ONCE, 1 dose, On Fri08/07/22 at 1700, [facility] AZITHROMYCI N TAB 250MG 07-10 00:00: 00 No METRONIDAZO L TAB 500MG 07-10 00:00: 00 No traZODone 100 mg tablet 07-09 09:29: 11 Yes 100mg Take 100 mg by mouth at bedtime. [facility] clonazePAM 0.5 mg tablet 07-09 09:29: 09 07-09 00:00 :00 No .5mg Take 0.5 mg by mouth at bedtime. [facility] OXcarbazepi ne 300 mg tablet 07-09 09:28: 57 07-09 00:00 :00 No 300mg Take 300 mg by mouth at bedtime. [facility] amoxicillin -clavulanat e (AUGMENTIN) 875-125 mg per tablet 07-09 09:28: 22 07-09 00:00 :00 No 1{tbl} Take 1 tablet by mouth 2 (two) times daily. [facility] dextroamphe tamine-amph etamine (ADDERALL) 20 mg tablet 07-09 00:00: 00 08-12 00:00 :00 No [id number] 20mg Take 1 tablet by mouth in the morning and 1 tablet in the evening. [facility] TAKE 1 TABLET BY MOUTH ONCE DAILY 06-05 00:00: 00 No 10 METRONIDAZO L TAB 500MG 06-05 00:00: 00 No 500 AZITHROMYCI N TAB 250MG 06-05 00:00: 00 No 250 clonazePAM 0.5 mg tablet 06-04 13:20: 16 Yes .5mg Take 0.5 mg by mouth at bedtime. [facility] traZODone 50 mg tablet 06-04 13:19: 27 06-04 00:00 :00 No 50mg Take 50 mg by mouth at bedtime. [facility] lithium carbonate 300 mg tablet 06-04 13:17: 48 06-04 00:00 :00 No 900mg Take 900 mg by mouth at bedtime. [facility] dextroamphe tamine-amph etamine (ADDERALL) 20 mg tablet 06-04 00:00: 00 07-09 00:00 :00 No [id number] 20mg Take 1 tablet by mouth in the morning and 1 tablet in the evening. [facility] TAKE 1 TABLET BY MOUTH TWICE DAILY 2021-0 7-12 00:00: 00 No 20 &lt 2022-0 7-12 00:00: 00 No 100 benzonatate 100 mg capsule 2021-0 7-10 00:00: 00 08-16 00:00 :00 No [id number] 100mg Take 1 capsule by mouth 3 (three) times daily as needed for Cough. [facility] Lamictal 25 mg tablet 2021-0 6-30 [...] 2 tablets by mouth in the morning. [facility] Dose Unknown 2021-0 5-31 00:00: 00 [...] tablet by mouth 2 (two) times daily. [facility] OXcarbazepi ne 300 mg tablet 07-18 15:10: 21 Yes 300mg Take 300 mg by mouth at bedtime. [facility] Lamictal 25 mg tablet 07-10 00:00: 00 No 1mg trazodone 50 mg tablet 07-10 00:00: 00 No 1mg Abilify 30 mg tablet 06-20 00:00: 00 No 1mg oxcarbazepi ne 600 mg tablet 06-20 00:00: 00 No 2mg lithium carbonate 300 mg capsule 06-20 00:00: 00 No 3mg benzonatate 100 mg capsule 05-05 00:00: 00 07-09 00:00 :00 No [id number] 100mg Take 1 capsule by mouth 3 (three) times daily as needed for Cough. [facility] Lamictal 25 mg tablet 04-27 00:00: 00 No 1mg hydroxyzine HCl 25 mg tablet 04-27 00:00: 00 No 1mg Lamictal 25 mg tablet 03-30 00:00: 00 No 1mg hydroxyzine HCl 25 mg tablet 03-30 00:00: 00 No 1mg pantoprazol e 40 mg EC tablet 03-28 00:00: 00 02-03 00:00 :00 No [id number] 40mg Take 1 tablet by mouth daily. [facility] Lamictal 25 mg tablet 2020-0 5-14 [...] SARS-COV-2 COVID-19 LUISANA/J&J VACCINE 2021-01-15 00:00:00 Completed [facility] SARS-COV-2 COVID-19 LUISANA/J&J VACCINE 2021-01-15 00:00:00 Completed [facility] SARS-COV-2 COVID-19 LUISANA/J&J VACCINE 2021-01-15 00:00:00 Completed [facility] SARS-COV-2 COVID-19 LUISANA/J&J VACCINE 2021-01-15 00:00:00 Completed [facility] SARS-COV-2 COVID-19 LUISANA/J&J VACCINE 2021-01-15 00:00:00 Completed [facility] SARS-COV-2 COVID-19 LUISANA/J&J VACCINE 2021-01-15 00:00:00 Completed [facility] SARS-COV-2 COVID-19 LUISANA/J&J VACCINE 2021-01-15 00:00:00 Completed [facility] SARS-COV-2 COVID-19 LUISANA/J&J VACCINE 2021-01-15 00:00:00 Completed [facility] SARS-COV-2 COVID-19 LUISANA/J&J VACCINE 2021-01-15 00:00:00 Completed [facility] SARS-COV-2 COVID-19 LUISANA/J&J VACCINE 2021-01-15 00:00:00 Completed [facility] SARS-COV-2 COVID-19 LUISANA/J&J VACCINE 2021-01-15 00:00:00 Completed [facility] SARS-COV-2 COVID-19 LUISANA/J&J VACCINE 2021-01-15 00:00:00 Completed [facility] SARS-COV-2 COVID-19 LUISANA/J&J VACCINE 2021-01-15 00:00:00 Completed [facility] SARS-COV-2 COVID-19 LUISANA/J&J VACCINE 2021-01-15 00:00:00 Completed [facility] SARS-COV-2 COVID-19 LUISANA/J&J VACCINE 2021-01-15 00:00:00 Completed [facility] SARS-COV-2 COVID-19 LUISANA/J&J VACCINE 2021-01-15 00:00:00 Completed [facility] SARS-COV-2 COVID-19 LUISANA/J&J VACCINE 2021-01-15 00:00:00 Completed [facility] SARS-COV-2 COVID-19 LUISANA/J&J VACCINE 2021-01-15 00:00:00 Completed [facility] SARS-COV-2 COVID-19 LUISANA/J&J VACCINE 2021-01-15 00:00:00 Completed [facility] SARS-COV-2 COVID-19 LUISANA/J&J VACCINE 2021-01-15 00:00:00 Completed [facility] SARS-COV-2 COVID-19 LUISANA/J&J VACCINE 2021-01-15 00:00:00 Completed [facility] SARS-COV-2 COVID-19 LUISANA/J&J VACCINE 2021-01-15 00:00:00 Completed [facility] SARS-COV-2 COVID-19 LUISANA/J&J VACCINE 2021-01-15 00:00:00 Completed [facility] SARS-COV-2 COVID-19 LUISANA/J&J VACCINE 2021-01-15 00:00:00 Completed [facility] SARS-COV-2 COVID-19 LUISANA/J&J VACCINE 2021-01-15 00:00:00 Completed [facility] SARS-COV-2 COVID-19 LUISANA/J&J VACCINE 2021-01-15 00:00:00 Completed [facility] SARS-COV-2 COVID-19 LUISANA/J&J VACCINE 2021-01-15 00:00:00 Completed [facility] SARS-COV-2 COVID-19 LUISANA/J&J VACCINE 2021-01-15 00:00:00 Completed [facility] SARS-COV-2 COVID-19 LUISANA/J&J VACCINE 2021-01-15 00:00:00 Completed [facility] SARS-COV-2 COVID-19 LUISANA/J&J VACCINE 2021-01-15 00:00:00 Completed [facility] SARS-COV-2 COVID-19 LUISANA/J&J VACCINE 2021-01-15 00:00:00 Completed [facility] SARS-COV-2 COVID-19 LUISANA/J&J VACCINE 2021-01-15 00:00:00 Completed [facility] SARS-COV-2 COVID-19 LUISANA/J&J VACCINE 2021-01-15 00:00:00 Completed [facility] SARS-COV-2 COVID-19 LUISANA/J&J VACCINE 2021-01-15 00:00:00 Completed [facility] SARS-COV-2 COVID-19 LUISANA/J&J VACCINE 2021-01-15 00:00:00 Completed [facility] SARS-COV-2 COVID-19 LUISANA/J&J VACCINE 2021-01-15 00:00:00 Completed [facility] SARS-COV-2 COVID-19 LUISANA/J&J VACCINE 2021-01-15 00:00:00 Completed [facility] SARS-COV-2 COVID-19 LUISANA/J&J VACCINE 2021-01-15 00:00:00 Completed [facility] SARS-COV-2 COVID-19 LUISANA/J&J VACCINE 2021-01-15 00:00:00 Completed [facility] SARS-COV-2 COVID-19 LUISANA/J&J VACCINE 2021-01-15 00:00:00 Completed [facility] SARS-COV-2 COVID-19 LUISANA/J&J VACCINE 2021-01-15 00:00:00 Completed [facility] SARS-COV-2 COVID-19 LUISANA/J&J VACCINE 2021-01-15 00:00:00 Completed [facility] SARS-COV-2 COVID-19 LUISANA/J&J VACCINE 2021-01-15 00:00:00 Completed [facility] SARS-COV-2 COVID-19 LUISANA/J&J VACCINE 2021-01-15 00:00:00 Completed [facility] SARS-COV-2 COVID-19 LUISANA/J&J VACCINE 2021-01-15 00:00:00 Completed [facility] SARS-COV-2 COVID-19 LUISANA/J&J VACCINE 2021-01-15 00:00:00 Completed [facility] SARS-COV-2 COVID-19 LUISANA/J&J VACCINE 2021-01-15 00:00:00 Completed [facility] SARS-COV-2 COVID-19 LUISANA/J&J VACCINE 2021-01-15 00:00:00 Completed [facility] SARS-COV-2 COVID-19 LUISANA/J&J VACCINE 2021-01-15 00:00:00 Completed [facility] SARS-COV-2 COVID-19 LUISANA/J&J VACCINE 2021-01-15 00:00:00 Completed [facility] SARS-COV-2 COVID-19 LUISANA/J&J VACCINE Unknown Completed [facility] SARS-COV-2 COVID-19 LUISANA/J&J VACCINE Unknown Completed [facility] SARS-COV-2 COVID-19 LUISANA/J&J VACCINE Unknown Completed [facility] SARS-COV-2 COVID-19 LUISANA/J&J VACCINE Unknown Completed [facility] SARS-COV-2 COVID-19 LUISANA/J&J VACCINE Unknown Completed [facility] SARS-COV-2 COVID-19 LUISANA/J&J VACCINE Unknown Completed [facility] SARS-COV-2 COVID-19 LUISANA/J&J VACCINE Unknown Completed [facility] SARS-COV-2 COVID-19 LUISANA/J&J VACCINE Unknown Completed [facility] SARS-COV-2 COVID-19 LUISANA/J&J VACCINE Unknown Completed [facility] SARS-COV-2 COVID-19 LUISANA/J&J VACCINE Unknown Completed [facility] SARS-COV-2 COVID-19 LUISANA/J&J VACCINE Unknown Completed [facility] SARS-COV-2 COVID-19 LUISANA/J&J VACCINE Unknown Completed [facility] SARS-COV-2 COVID-19 LUISANA/J&J VACCINE Unknown Completed [facility] SARS-COV-2 COVID-19 LUISANA/J&J VACCINE Unknown Completed [facility] SARS-COV-2 COVID-19 LUISANA/J&J VACCINE Unknown Completed [facility] SARS-COV-2 COVID-19 LUISANA/J&J VACCINE Unknown Completed [facility] SARS-COV-2 COVID-19 LUISANA/J&J VACCINE Unknown Completed [facility] SARS-COV-2 COVID-19 LUISANA/J&J VACCINE Unknown Completed [facility] SARS-COV-2 COVID-19 LUISANA/J&J VACCINE Unknown Completed [facility] SARS-COV-2 COVID-19 LUISANA/J&J VACCINE Unknown Completed [facility] SARS-COV-2 COVID-19 LUISANA/J&J VACCINE Unknown Completed [facility] SARS-COV-2 COVID-19 LUISANA/J&J VACCINE Unknown Completed [facility] SARS-COV-2 COVID-19 LUISANA/J&J VACCINE Unknown Completed [facility] SARS-COV-2 COVID-19 LUISANA/J&J VACCINE Unknown Completed [facility] SARS-COV-2 COVID-19 LUISANA/J&J VACCINE Unknown Completed [facility] SARS-COV-2 COVID-19 LUISANA/J&J VACCINE Unknown Completed [facility] SARS-COV-2 COVID-19 LUISANA/J&J VACCINE Unknown Completed [facility] SARS-COV-2 COVID-19 LUISANA/J&J VACCINE Unknown Completed [facility] SARS-COV-2 COVID-19 LUISANA/J&J VACCINE Unknown Completed [facility] SARS-COV-2 COVID-19 LUISANA/J&J VACCINE Unknown Completed [facility] SARS-COV-2 COVID-19 LUISANA/J&J VACCINE Unknown Completed [facility] SARS-COV-2 COVID-19 LUISANA/J&J VACCINE Unknown Completed [facility] SARS-COV-2 COVID-19 LUISANA/J&J VACCINE Unknown Completed [facility] SARS-COV-2 COVID-19 LUISANA/J&J VACCINE Unknown Completed [facility] SARS-COV-2 COVID-19 LUISANA/J&J VACCINE Unknown Completed [facility] SARS-COV-2 COVID-19 LUISANA/J&J VACCINE Unknown Completed [facility] SARS-COV-2 COVID-19 LUISANA/J&J VACCINE Unknown Completed [facility] Vital Signs Vital Name Observation Time Observation Value Comments S ource Systolic blood pressure 2024-01-07 20:03:00 148 mm[Hg] [facility] Diastolic blood pressure 2024-01-07 20:03:00 89 mm[Hg] [facility] Heart rate 2024-01-07 20:02:00 87 /min [facility] Body temperature 2024-01-07 20:02:00 36.61 Annia [facility] Body height 2024-01-07 20:02:00 162.6 cm [facility] Body weight 2024-01-07 20:02:00 65.318 kg [facility] BMI 2024-01-07 20:02:00 24.72 kg/m2 [facility] Systolic blood pressure 2024-01-04 20:56:00 126 mm[Hg] [facility] Diastolic blood pressure 2024-01-04 20:56:00 80 mm[Hg] [facility] Heart rate 2024-01-04 20:56:00 71 /min [facility] Body temperature 2024-01-04 20:56:00 36.72 Annia [facility] Respiratory rate 2024-01-04 20:56:00 20 /min [facility] Body height 2024-01-04 20:56:00 162.6 cm [facility] Body weight 2024-01-04 20:56:00 67.631 kg Univ [facility] BMI 2024-01-04 20:56:00 25.59 kg/m2 [facility] Oxygen saturation in Arterial blood by Pulse oximetry 2024-01-04 20:56:00 100 /min [facility] Systolic blood pressure 2023-10-16 22:45:00 126 mm[Hg] [facility] Diastolic blood pressure 2023-10-16 22:45:00 79 mm[Hg] [facility] Heart rate 2023-10-16 22:45:00 94 /min [facility] Body temperature 2023-10-16 22:45:00 37.06 Annia [facility] Body height 2023-10-16 22:45:00 162.6 cm [facility] Body weight 2023-10-16 22:45:00 63.095 kg [facility] BMI 2023-10-16 22:45:00 23.88 kg/m2 [facility] Oxygen saturation in Arterial blood by Pulse oximetry 2023-10-16 22:45:00 99 /min [facility] Systolic blood pressure 2023-08-11 18:07:00 121 mm[Hg] [facility] Diastolic blood pressure 2023-08-11 18:07:00 80 mm[Hg] [facility] Heart rate 2023-08-11 18:07:00 96 /min [facility] Body height 2023-08-11 18:07:00 162.6 cm [facility] Body weight 2023-08-11 18:07:00 64.411 kg [facility] BMI 2023-08-11 18:07:00 24.37 kg/m2 [facility] Heart rate 2023-07-17 01:37:00 102 /min [facility] Respiratory rate 2023-07-17 01:37:00 17 /min [facility] Body weight 2023-07-17 01:37:00 65.998 kg [facility] BMI 2023-07-17 01:37:00 24.98 kg/m2 [facility] Oxygen saturation in Arterial blood by Pulse oximetry 2023-07-17 01:37:00 98 /min [facility] Systolic blood pressure 2023-07-15 09:08:00 152 mm[Hg] [facility] Diastolic blood pressure 2023-07-15 09:08:00 106 mm[Hg] [facility] Heart rate 2023-07-15 09:08:00 62 /min [facility] Body temperature 2023-07-15 09:08:00 37.22 Annia [facility] Respiratory rate 2023-07-15 09:08:00 18 /min [facility] Body height 2023-07-15 09:08:00 162.6 cm [facility] Body weight 2023-07-15 09:08:00 67.132 kg [facility] BMI 2023-07-15 09:08:00 25.40 kg/m2 [facility] Oxygen saturation in Arterial blood by Pulse oximetry 2023-07-15 09:08:00 100 /min [facility] Systolic blood pressure 2023-02-15 22:41:00 109 mm[Hg] [facility] Diastolic blood pressure 2023-02-15 22:41:00 72 mm[Hg] [facility] Heart rate 2023-02-15 22:41:00 87 /min [facility] Body temperature 2023-02-15 22:41:00 36.83 Annia [facility] Respiratory rate 2023-02-15 22:41:00 18 /min [facility] Body height 2023-02-15 22:41:00 162.6 [facility] 2023-02-15 22:41:00 68.947 kg [facility] BMI 2023-02-15 22:41:00 26.09 kg/m2 [facility] Oxygen saturation in Arterial blood by Pulse oximetry 2023-02-15 22:41:00 96 /min [facility] Systolic blood pressure 2023-02-07 14:41:00 124 mm[Hg] [facility] Diastolic blood pressure 2023-02-07 14:41:00 83 mm[Hg] [facility] Heart rate 2023-02-07 14:41:00 94 /min [facility] Body temperature 2023-02-07 14:41:00 36.67 Annia [facility] Body height 2023-02-07 14:41:00 162.6 cm [facility] Body weight 2023-02-07 14:41:00 69.718 kg [facility] BMI 2023-02-07 14:41:00 26.38 kg/m2 [facility] Oxygen saturation in Arterial blood by Pulse oximetry 2023-02-07 14:41:00 98 /min [facility] Systolic blood pressure 2023-02-03 14:53:00 125 mm[Hg] [facility] Diastolic blood pressure 2023-02-03 14:53:00 68 mm[Hg] [facility] Heart rate 2023-02-03 14:53:00 79 /min [facility] Body temperature 2023-02-03 14:53:00 36.33 Annia [facility] Body height 2023-02-03 14:53:00 162.6 cm Univ [facility] Body weight 2023-02-03 14:53:00 68.629 kg [facility] BMI 2023-02-03 14:53:00 25.97 kg/m2 [facility] Oxygen saturation in Arterial blood by Pulse oximetry 2023-02-03 14:53:00 100 /min [facility] Systolic blood pressure 2023-01-03 21:59:00 133 mm[Hg] [facility] Diastolic blood pressure 2023-01-03 21:59:00 87 mm[Hg] [facility] Heart rate 2023-01-03 21:59:00 109 /min [facility] Body temperature 2023-01-03 21:59:00 36.89 Annia [facility] Respiratory rate 2023-01-03 21:59:00 17 /min [facility] Body weight 2023-01-03 21:59:00 70.308 kg Univ [facility] BMI 2023-01-03 21:59:00 26.61 kg/m2 [facility] Oxygen saturation in Arterial blood by Pulse oximetry 2023-01-03 21:59:00 98 /min [facility] Systolic blood pressure 2022-12-06 15:29:00 132 mm[Hg] [facility] Diastolic blood pressure 2022-12-06 15:29:00 85 mm[Hg] [facility] Body temperature 2022-12-06 15:29:00 37.11 Annia [facility] Body height 2022-12-06 15:29:00 162.6 cm [facility] Body weight 2022-12-06 15:29:00 68.947 kg [facility] BMI 2022-12-06 15:29:00 26.09 kg/m2 [facility] Oxygen saturation in Arterial blood by Pulse oximetry 2022-12-06 15:29:00 99 /min [facility] Systolic blood pressure 2022-11-20 21:39:00 106 mm[Hg] [facility] Diastolic blood pressure 2022-11-20 21:39:00 63 mm[Hg] [facility] Heart rate 2022-11-20 21:39:00 118 /min [facility] Body temperature 2022-11-20 21:39:00 36.72 Annia [facility] Body height 2022-11-20 21:39:00 162.6 cm [facility] Body weight 2022-11-20 21:39:00 68.04 kg [facility] BMI 2022-11-20 21:39:00 25.75 kg/m2 [facility] Oxygen saturation in Arterial blood by Pulse oximetry 2022-11-20 21:39:00 99 /min [facility] Systolic blood pressure 2022-09-25 17:10:00 120 mm[Hg] [facility] Diastolic blood pressure 2022-09-25 17:10:00 80 mm[Hg] [facility] Heart rate 2022-09-25 17:10:00 92 /min [facility] Body height 2022-09-25 17:10:00 162.6 cm [facility] Body weight 2022-09-25 17:10:00 64.864 kg [facility] BMI 2022-09-25 17:10:00 24.55 kg/m2 [facility] Systolic blood pressure 2022-08-08 02:23:00 122 mm[Hg] [facility] Diastolic blood pressure 2022-08-08 02:23:00 78 mm[Hg] [facility] Heart rate 2022-08-08 02:23:00 76 /min [facility] Body temperature 2022-08-08 02:23:00 36.67 Annia [facility] Respiratory rate 2022-08-08 02:23:00 19 /min [facility] Oxygen saturation in Arterial blood by Pulse oximetry 2022-08-08 02:23:00 96 /min [facility] Body height 2022-08-07 20:26:00 162.6 cm [facility] Body weight 2022-08-07 20:26:00 64.1 kg [facility] BMI 2022-08-07 20:26:00 24.26 kg/m2 [facility] Systolic blood pressure 2022-07-09 14:25:00 139 mm[Hg] [facility] Diastolic blood pressure 2022-07-09 14:25:00 94 mm[Hg] [facility] Heart rate 2022-07-09 14:25:00 88 /min [facility] Body height 2022-07-09 14:25:00 162.6 cm [facility] Body weight 2022-07-09 14:25:00 65.318 kg [facility] BMI 2022-07-09 14:25:00 24.72 kg/m2 [facility] Systolic blood pressure 2022-06-04 18:16:00 115 mm[Hg] [facility] Diastolic blood pressure 2022-06-04 18:16:00 74 mm[Hg] [facility] Body height 2022-06-04 18:16:00 162.6 cm [facility] Body weight 2022-06-04 18:16:00 64.864 kg [facility] BMI 2022-06-04 18:16:00 24.55 kg/m2 [facility] BP Systolic 2022-11-12 09:56:00 119 mm[Hg] [...] / Time Performed Performing Clinicia n Source [facility] PATIENT FINANCIAL POLICY 2024-01-04 20:47:36 Doctor Unassigned, [place] [facility] POCT MOLECULAR FLU 2023-10-16 22:59:00 Gaby Palma [facility] POCT MOLECULAR STREP 2023-10-16 22:51:00 Annamaria Palma [facility] POCT SARS-COV-2 ANTIGEN (BINAX NOW) 2023-10-16 00:00:00 Gaby Palma [facility] ASSIGNMENT OF BENEFITS 2023-08-11 18:02:12 Docto r Unassigned, [place] [facility] NOTICE OF PRIVACY PRACTICES 2023-07-15 09:02:01 Doctor Unassigned, [place] [facility] CONSENT/REFUSAL FOR DIAGNOSIS AND TREATMENT 2023-07-15 09:01:33 Doctor Unassigned, [place] [facility] POCT SARS-COV-2 ANTIGEN (BINAX NOW) 2023-02-07 15:13:00 Vivienne Holt [facility] POCT MOLECULAR FLU 2023-02-07 15:06:00 Unknown, Attend ing [facility] POCT MOLECULAR STREP 2023-02-07 14:52:00 Unknown, Atte laura [facility] PATIENT FINANCIAL POLICY 2023-01-03 21:48:53 Doctor Unassigned, [place] [facility] EXTERNAL PROVIDER RECORDS 2022-12-24 06:01:00 Doctor Unassigned, [place] [facility] CREATINE KINASE 2022-08-07 21:44:00 Mila Keys [facility] LIPASE 2022-08-07 21:44:00 Mila Keys [facility] TEST, SERUM 2022-08-07 21:44:00 Anaid Keys [facility] TROPONIN I 2022-08-07 21:44:00 Mila Keys [facility] HEPATIC FUNCTION PANEL (62963) (ALB,T.PRO,BILI T,BU/BC,ALT,AST,ALK PHOS) 2022-08-07 21:44:00 Mila Keys [facility] BASIC METABOLIC PANEL (NA, K, CL, CO2, GLUCOSE, BUN, CREATININE, CA) 2022-08-07 21:44:00 Jamar Mila [facility] SALICYLATE 2022-08-07 21:44:00 Mila Keys [facility] ETHANOL 2022-08-07 21:44:00 Mila Keys [facility] CBC WITH DIFF 2022-08-07 [facility]:44[facility] Activity Planned Date Details Comments Source Goal Plan of Care Note [code = 29698-7] Goal Plan of Care Note [code = 19834-5] Goal Plan of Care Note [code = 67985-5] Goal Plan of Care Note [code = 33497-5] Goal Plan of Care Note [code = 95285-2] Goal Plan of Care Note [code = 92799-9] Goal Plan of Care Note [code = 12742-3] Goal Plan of Care Note [code = 69600-8] Goal Plan of Care Note [code = 90517-4] Goal Plan of Care Note [code = 62777-4] Goal Plan of Care Note [code = 46602-3] Goal Plan of Care Note [code = 20459-3] Goal Plan of Care Note [code = 47253-7] Goal Plan of Care Note [code = 61365-5] Goal Plan of Care Note [code = 25876-6] Goal Plan of Care Note [code = 18181-6] Goal Plan of Care Note [code = 68216-7] Goal Plan of Care Note [code = 99663-2] Goal Plan of Care Note [code = 90625-4] Goal Plan of Care Note [code = 83802-6] Goal Plan of Care Note [code = 60109-9] Goal Plan of Care Note [code = 10590-3] Goal Plan of Care Note [code = 30452-2] Goal Plan of Care Note [code = 19006-9] Goal Plan of Care Note [code = 38239-1] Goal Plan of Care Note [code = 53696-9] Goal Plan of Care Note [code = 25192-8] Goal Plan of Care Note [code = 35622-3] Goal Plan of Care Note [code = 62365-1] Goal Plan of Care Note [code = 92767-6] Goal Plan of Care Note [code = 64454-2] Goal Plan of Care Note [code = 10547-7] Goal Plan of Care Note [code = 71366-3] Encounters Start Date/Time End Date/Time Encounter Type Admission Type Attending Clinicians Care Facility Care Department Encounter ID Source 2021-08-20 08:51:37 Emergency [facility] [id number] [facility] 2024-03-08 00:00:00 2024-03-08 11:42:52 [facility] [id number] 350.1.13.10 4.2.7.2.686 [id number] [facility] 2024-02-11 00:00:00 2024-02-11 00:00:00 Refill [facility]tran [facility] 1.84.114 350.1.13.10 4.2.7.2.686 [id number] [facility] 2024-01-14 14:30:00 2024-01-14 14:30:00 Outpatient R ENEIDA CANNON [facility] [id number] [facility] 2024-01-07 15:15:00 2024-01-07 15:30:00 Office Visit Laura Beltran [facility] [id number] 350.1.13.10 4.2.7.2.686 [id number] [facility] 2024-01-07 15:15:00 2024-01-07 15:15:00 Outpatient R LAURA BELTRAN [facility] [id number] [facility] 2024-01-04 15:40:00 2024-01-04 16:00:00 Urgent Care Vivienne Holt Unknown, Attending [facility] 1.84.114 350.1.13.10 4.2.7.2.686 [id number] [facility] 2024-01-04 15:40:00 2024-01-04 15:40:00 Outpatient R VIVIENNE HOLT [facility] [id number] [facility] 2024-01-04 00:00:00 2024-01-04 00:00:00 Orders Only Doctor Unassigned, [place] [facility] 1.84114 350.1.13.10 4.2.7.2.686 [id number] [facility] 2024-01-01 00:00:00 2024-01-01 00:00:00 Refill Ruby Laura [facility] [place] [id number] 350.1.13.10 4.2.7.2.686 [id number] [facility] 2023-12-29 00:00:00 2023-12-29 00:00:00 Letter (Out) [facility] 1.840.114 350.1.13.10 4.2.7.2.686 [id number] [facility] 2023-12-24 00:00:00 2023-12-24 00:00:00 [facility] 1..840.114 350.1.13.10 4.2.7.2.686 [id number] [facility] 2023-12-15 09:30:00 2023-12-15 09:30:00 Outpatient R LAURA BELTRAN [facility] [id number] [facility] 2023-12-11 00:00:00 2023-12-11 00:00:00 [facility] 1..840.114 350.1.13.10 4.2.7.2.686 [id number] [facility] 2023-12-11 00:00:00 2023-12-11 00:00:00 Telephone Ruby Laura [facility] [place] 1..840.114 350.1.13.10 4.2.7.2.686 [id number] [facility] 2023-12-09 00:00:00 2023-12-09 00:00:00 [facility] 1.2.840.114 350.1.13.10 4.2.7.2.686 [id number] 044 [id number] [facility] 2023-12-08 00:00:00 2023-12-08 00:00:00 Refill Laura Beltran [facility] 1.2.840.114 350.1.13.10 4.2.7.2.686 [id number] 044 [id number] [facility] 2023-12-04 00:00:00 2023-12-04 00:00:00 Telephone Laura Beltran [facility] 1.2.840.114 350.1.13.10 4.2.7.2.686 [id number] 044 [id number] [facility] 2023-11-27 00:00:00 2023-11-27 00:00:00 Telephone Laura Beltran [facility] HI?[facility] 1.2.840.114 350.1.13.10 4.2.7.2.686 [id number] 044 [id number] [facility] 2023-11-10 15:40:11 2023-11-10 15:40:11 Outpatient [facility] [id number] Ignacio Heredia 2023-11-08 00:00:00 2023-11-08 00:00:00 Telephone Laura Beltran [facility] 1.2.840.114 350.1.13.10 4.2.7.2.686 [id number] 044 [id number] [facility] 2023-10-16 16:40:00 2023-10-16 17:06:52 Outpatient GABY GONZALEZ [facility] [id number] [facility] 2023-10-16 16:40:00 2023-10-16 17:06:52 Office Visit Gaby Palma [facility] HI?[facility] 1.2840.114 350.1.13.10 4.2.7.2.686 [id number] 044 [id number] [facility] 2023-10-08 00:00:00 2023-10-08 00:00:00 Telephone Laura Beltran [facility] 1.2.840.114 350.1.13.10 4.2.7.2.686 [id number] 044 [id number] [facility] 2023-10-06 00:00:00 2023-10-06 00:00:00 Refill Laura Beltran [facility] 1.2840.114 350.1.13.10 4.2.7.2.686 [id number] 044 [id number] [facility] 2023-10-06 00:00:00 2023-10-06 00:00:00 Telephone Laura Beltran [facility] 1.2840.114 350.1.13.10 4.2.7.2.686 [id number] 044 [id number] [facility] 2023-09-17 00:00:00 2023-09-17 00:00:00 Refill Laura Beltran [facility] 1.2840.114 350.1.13.10 4.2.7.2.686 [id number] 044 [id number] [facility] 2023-09-10 00:00:00 2023-09-10 00:00:00 Refill Laura Beltran [facility] 1.2840.114 350.1.13.10 4.2.7.2.686 [id number] 044 [id number] [facility] 2023-09-09 00:00:00 2023-09-09 00:00:00 Telephone Laura Beltran [facility] 1..840.114 350.1.13.10 4.2.7.2.686 [id number] 044 [id number] [facility] 2023-09-05 00:00:00 2023-09-05 00:00:00 Telephone Laura Beltran [facility] 1..840.114 350.1.13.10 4.2.7.2.686 [id number] 044 [id number] [facility] 2023-09-03 00:00:00 2023-09-03 00:00:00 [facility] 1.840.114 350.1.13.10 4.2.7.2.686 [id number] 044 [id number] [facility] 2023-08-11 13:00:00 2023-08-11 13:23:48 Outpatient R LAURA BELTRAN [facility] [id number] [facility] 2023-08-11 13:00:00 2023-08-11 13:23:48 [facility] 1..840.114 350.1.13.10 4.2.7.2.686 [id number] 044 [id number] [facility] 2023-08-11 00:00:00 2023-08-11 00:00:00 Orders Only Doctor Unassigned, [place] [facility] 1.84.114 350.1.13.10 4.2.7.2.686 [id number] [id number] [facility] 2023-08-05 00:00:00 2023-08-05 00:00:00 Refill [facility] 1.840.114 350.1.13.10 4.2.7.2.686 [id number] 044 [id number] [facility] 2023-07-26 00:00:00 2023-07-26 00:00:00 Laura Perez [facility] 1.840.114 350.1.13.10 4.2.7.2.686 [id number] 044 [id number] [facility] 2023-07-24 10:45:00 2023-07-24 10:45:00 Outpatient MAIKEL HINDS [facility] [id number] [facility] 2023-07-16 20:20:00 2023-07-16 20:40:00 Urgent Care Vivienne Holt Unknown, Attending [facility] 1.840.114 350.1.13.10 4.2.7.2.686 [id number] 370 [id number] [facility] 2023-07-16 20:20:00 2023-07-16 20:20:00 Outpatient R VIVIENNE HOLT [facility] [id number] [facility] 2023-07-15 04:10:00 2023-07-15 04:44:00 Emergency X [facility] ERT [id number] [facility] 2023-07-15 04:10:00 2023-07-15 04:44:00 Emergency Joshua Strongdorysfabián [facility] 1.84.114 350.1.13.10 4.2.7.2.686 [id number] [facility] 2023-07-03 00:00:00 2023-07-03 00:00:00 [facility] Perez [facility] 1.840.114 350.1.13.10 4.2.7.2.686 [id number] 044 [id number] [facility] 2023-07-03 00:00:00 2023-07-03 00:00:00 Laura Perez [facility] HI?[facility] 1.2840.114 350.1.13.10 4.2.7.2.686 [id number] 044 [id number] [facility] 2023-06-16 00:00:00 2023-06-16 00:00:00 Laura Cosby [facility] 1.2840.114 350.1.13.10 4.2.7.2.686 [id number] 044 [id number] [facility] 2023-06-09 00:00:00 2023-06-09 00:00:00 [facility] 1.2840.114 350.1.13.10 4.2.7.2.686 [id number] 044 [id number] [facility] 2023-06-06 00:00:00 2023-06-06 00:00:00 Ming Beltran [facility] HI?[facility] 1.2840.114 350.1.13.10 4.2.7.2.686 [id number] 044 [id number] [facility] 2023-06-04 10:00:00 2023-06-04 10:00:00 Outpatient LAURA AMADOR [facility] [id number] [facility] 2023-05-23 16:51:14 2023-05-23 23:59:00 Hospital Encounter Dorothea Feroz Greg [facility] 1.2840.114 350.1.13.10 4.2.7.2.686 [id number] [facility] 2023-05-23 16:50:23 2023-05-23 16:50:00 Outpatient R FEROZ BARAKAT [facility] [id number] [facility] 2023-05-23 16:30:00 2023-05-23 16:50:00 Hospital Encounter Feroz Barakat S [facility] 1.2.840.114 350.1.13.10 4.2.7.2.686 [id number] 804 [id number] [facility] 2023-05-13 00:00:00 2023-05-13 00:00:00 Patient Secure Msg Doctor Unassigned, [place] [facility] 1..840.114 350.1.13.10 4.2.7.2.686 [id number] 044 [id number] [facility] 2023-05-10 00:00:00 2023-05-10 00:00:00 [facility] 1..840.114 350.1.13.10 4.2.7.2.686 [id number] 044 [id number] [facility] 2023-05-07 00:00:00 2023-05-07 00:00:00 Patient Secure Msg Doctor Unassigned, [place] [facility] 1.2.840.114 350.1.13.10 4.2.7.2.686 [id number] [facility] 2023-05-05 00:00:00 2023-05-05 00:00:00 Telephone [facility] 1.2.840.114 350.1.13.10 4.2.7.2.686 [id number] 044 [id number] [facility] 2023-05-02 00:00:00 2023-05-02 00:00:00 Outpatient FEROZ MACHADO [facility] [id number] [facility] 2023-04-25 00:00:00 2023-04-25 00:00:00 Outpatient [facility] [id number] [facility] 2023-04-08 00:00:00 2023-04-08 00:00:00 Refill Laura Beltran [facility] HI?[facility] 1.2840.114 350.1.13.10 4.2.7.2.686 [id number] 044 [id number] [facility] 2023-04-03 00:00:00 2023-04-03 00:00:00 Refill Ruby [facility] HI?[facility] 1.2840.114 350.1.13.10 4.2.7.2.686 [id number] 044 [id number] [facility] 2023-03-10 00:00:00 2023-03-10 00:00:00 Telephone Laura Beltran [facility] HI?[facility] 1.2840.114 350.1.13.10 4.2.7.2.686 [id number] 044 [id number] [facility] 2023-03-08 00:00:00 2023-03-08 00:00:00 Refill Laura Beltran [facility] 1.2840.114 350.1.13.10 4.2.7.2.686 [id number] 044 [id number] [facility] 2023-03-07 00:00:00 2023-03-07 00:00:00 Refill Laura Beltran [facility] 1.2840.114 350.1.13.10 4.2.7.2.686 [id number] 044 [id number] [facility] 2023-03-07 00:00:00 2023-03-07 00:00:00 Telephone Laura Beltran [facility] 1.2.840.114 350.1.13.10 4.2.7.2.686 [id number] 044 [id number] [facility] 2023-02-17 00:00:00 2023-02-17 00:00:00 Telephone Laura Beltran [facility] 1..840.114 350.1.13.10 4.2.7.2.686 [id number] 044 [id number] [facility] 2023-02-15 17:30:00 2023-02-15 17:41:47 Outpatient R YESSENIA CALL [facility] [id number] [facility] 2023-02-15 17:30:00 2023-02-15 17:41:47 Nurse Visit Nurse, Jose Petty [facility] Unknown, Attending [facility] 1.2.840.114 350.1.13.10 4.2.7.2.686 [id number] [facility] 2023-02-15 17:20:00 2023-02-15 17:20:00 Outpatient R UNKNOWN, ATTENDING [facility] [id number] [facility] 2023-02-07 09:20:00 2023-02-07 09:40:00 Urgent Care Vivienne Holt Unknown, Attending [facility] 1.2.840.114 350.1.13.10 4.2.7.2.686 [id number] [facility] 2023-02-07 09:20:00 2023-02-07 09:20:00 Outpatient R UNKNOWN, ATTENDING VIVIENNE HOLT [facility] [id number] [facility] 2023-02-03 10:15:00 2023-02-03 10:30:00 Office Visit Laura [facility]tran [facility] 1.2.840.114 350.1.13.10 4.2.7.2.686 [id number] 044 [id number] [facility] 2023-02-03 10:15:00 2023-02-03 10:15:00 Outpatient R LAURA BELTRAN [facility] [id number] [facility] 2023-01-23 10:00:00 2023-01-23 10:00:00 Outpatient LAURA AMADOR [facility] [id number] [facility] 2023-01-06 00:00:00 2023-01-06 00:00:00 Refill Laura [facility]tran [facility] 1.2.840.114 350.1.13.10 4.2.7.2.686 [id number] 044 [id number] [facility] 2023-01-04 00:00:00 2023-01-04 00:00:00 Telephone Provider, Jose Petty Urgent Care [facility] 1.2.840.114 350.1.13.10 4.2.7.2.686 [id number] 370 [id number] [facility] 2023-01-03 16:40:00 2023-01-03 17:14:19 Outpatient R FLOR INFANTE [facility] [id number] [facility] 2023-01-03 16:40:00 2023-01-03 17:14:19 Urgent Care Flor Infante Unknown, Attending [facility] 1.2.840.114 350.1.13.10 4.2.7.2.686 [id number] 370 [id number] [facility] 2023-01-03 00:00:00 2023-01-03 00:00:00 Orders Only Doctor Unassigned, [place] [facility] 1.2840.114 350.1.13.10 4.2.7.2.686 [id number] [facility] 2023-01-03 00:00:00 2023-01-03 00:00:00 Letter (Out) NareshFlor [facility] 1.2840.114 350.1.13.10 4.2.7.2.686 [id number] 370 [id number] [facility] 2023-01-02 00:00:00 2023-01-02 00:00:00 Refill Laura Beltran [facility] 1.2.840.114 350.1.13.10 4.2.7.2.686 [id number] 044 [id number] [facility] 2022-12-28 00:00:00 2022-12-28 00:00:00 Refill Trena Wyatt [facility] 1.2840.114 350.1.13.10 4.2.7.2.686 [id number] 044 [id number] [facility] 2022-12-26 00:00:00 2022-12-26 00:00:00 Outpatient STU BORGES [facility] [id number] [facility] 2022-12-24 00:00:00 2022-12-24 00:00:00 Orders Only Doctor Unassigned, [place] [facility] 1.2840.114 350.1.13.10 4.2.7.2.686 [id number] [facility] 2022-12-06 09:30:00 2022-12-06 09:56:07 Outpatient R TRENA WYATT [facility] [id number] [facility] 2022-12-06 09:30:00 2022-12-06 09:56:07 Office Visit Trena Wyatt [facility] HI?[facility] 1.2.840.114 350.1.13.10 4.2.7.2.686 [id number] 044 [id number] [facility] 2022-12-06 07:00:00 2022-12-06 07:00:00 Outpatient R TRENA WYATT [facility] [id number] [facility] 2022-12-05 00:00:00 2022-12-05 00:00:00 Refill Laura Beltran [facility] 1..840.114 350.1.13.10 4.2.7.2.686 [id number] 044 [id number] [facility] 2022-11-20 15:30:00 2022-11-20 16:22:49 Outpatient R FAUSTOVAUGHN Oh [facility] [id number] [facility] 2022-11-20 15:30:00 2022-11-20 16:22:49 Office Visit Faustoalthea Vaughn [facility] HI?[facility] 1.2.840.114 350.1.13.10 4.2.7.2.686 [id number] 044 [id number] [facility] 2022-11-19 09:30:00 2022-11-19 09:30:00 Outpatient R ARNEL ALARCON [facility] [id number] [facility] 2022-11-14 11:59:29 2022-11-14 11:59:[address] [facility] [id number] Ignacio F Yan 2022-11-13 00:00:00 2022-11-13 00:00:00 Telephone Laura Beltran [facility] 1.2.840.114 350.1.13.10 4.2.7.2.686 [id number] 044 [id number] [facility] 2022-11-12 09:48:10 2022-11-12 09:48:[address] [facility] [id number] Ignacio Heredia 2022-11-12 00:00:00 2022-11-12 00:00:00 Outpatient Visit [id number] 2022-11-11 09:15:00 2022-11-11 09:15:00 Outpatient LAURA AMADOR [facility] [id number] [facility] 2022-10-30 00:00:00 2022-10-30 00:00:00 [facility] 1.2.840.114 350.1.13.10 4.2.7.2.686 [id number] 044 [id number] [facility] 2022-10-10 00:00:00 2022-10-10 00:00:00 Telephone Ruby [facility] HI?[facility] 1.2.840.114 350.1.13.10 4.2.7.2.686 [id number] 044 [id number] [facility] 2022-10-07 00:00:00 2022-10-07 00:00:00 Telephone Laura Beltran [facility] 1.2.840.114 350.1.13.10 4.2.7.2.686 [id number] 044 [id number] [facility] 2022-09-25 11:00:00 2022-09-25 11:20:08 Outpatient LAURA AMADOR [facility] [id number] [facility] 2022-09-25 11:00:00 2022-09-25 11:20:08 Office Visit Ruby [facility] HI?[facility] 1.2.840.114 350.1.13.10 4.2.7.2.686 [id number] 044 [id number] [facility] 2022-09-03 00:00:00 2022-09-03 00:00:00 Refill Ruby [facility] HI?[facility] 1.2.840.114 350.1.13.10 4.2.7.2.686 [id number] 044 [id number] [facility] 2022-08-09 00:00:00 2022-08-09 00:00:00 Telephone Ruby [facility] 1.2840.114 350.1.13.10 4.2.7.2.686 [id number] 044 [id number] [facility] 2022-08-08 00:00:00 2022-08-08 00:00:00 Telephone Ruby [facility] 1.2840.114 350.1.13.10 4.2.7.2.686 [id number] 044 [id number] [facility] 2022-08-07 15:19:00 2022-08-07 21:35:00 Emergency X [facility] [id number] [facility] 2022-08-07 15:19:00 2022-08-07 21:35:00 Emergency [facility] 1.2840.114 350.1.13.10 4.2.7.2.686 [id number] [facility] 2022-07-10 00:00:00 2022-07-10 00:00:00 Telephone uRby [facility] 1.2.840.114 350.1.13.10 4.2.7.2.686 [id number] 044 [id number] [facility] 2022-07-09 09:15:00 2022-07-09 09:44:28 Outpatient R LAURA BELTRAN [facility] [id number] [facility] 2022-07-09 09:15:00 2022-07-09 09:30:00 Office Visit Laura [facility]tran [facility] 1.2.840.114 350.1.13.10 4.2.7.2.686 [id number] 044 [id number] [facility] 2022-07-09 00:00:00 2022-07-09 00:00:00 Telephone [facility]an [facility] 1..840.114 350.1.13.10 4.2.7.2.686 [id number] 044 [id number] [facility] 2022-06-04 13:15:00 2022-06-04 13:32:49 Outpatient R LAURA BELTRAN [facility] [id number] [facility] 2022-06-04 13:15:00 2022-06-04 13:30:00 Office Visit Laura [facility]tran [facility] 1..840.114 350.1.13.10 4.2.7.2.686 [id number] 044 [id number] [facility] 2022-06-04 13:15:00 2022-06-04 13:15:00 Outpatient R LAURA BELTRAN [facility] [id number] [facility] 2022-04-28 11:37:00 2022-04-28 12:24:00 Emergency X PEDROZA MUNDO [facility] ERT [id number] [facility] 2022-04-28 11:37:00 2022-04-28 12:24:00 Emergency Mundo Pedroza [facility] 1..840.114 350.1.13.10 4.2.7.2.686 [id number] [id number] [facility] 2022-04-28 00:00:00 2022-04-28 00:00:00 Letter (Out) Lora Gould [facility] 1..114 350.1.13.10 4.2.7.2.686 [id number] 019 [id number] [facility] 2021-07-18 14:56:51 2021-07-18 15:32:09 Office Visit Laura Beltran [facility] Hi?[facility] 1.84.114 350.1.13.10 4.2.7.2.686 [id number] 044 [id number] [facility] 2021-07-18 15:00:00 2021-07-18 15:00:00 Outpatient R RUBY [facility] [id number] [facility] 2021-05-30 00:00:00 2021-05-30 00:00:00 Orders Only Doctor Unassigned, [place] [facility] 1..114 350.1.13.10 4.2.7.2.686 [id number] [id number] [facility] 2021-05-25 00:00:00 2021-05-25 00:00:00 Telephone Laura Beltran [facility] .840.114 350.1.13.10 4.2.7.2.686 [id number] 044 [id number] 2021-05-25 00:00:00 2021-05-25 00:00:00 Telephone Laura Beltran [facility] .84.114 350.1.13.10 4.2.7.2.686 [id number] 044 [id number] [facility] 2021-05-21 00:00:00 2021-05-21 00:00:00 Refill Laura Beltran [facility] 1.2840.114 350.1.13.10 4.2.7.2.686 [id number] 044 [id number] 2021-05-21 00:00:00 2021-05-21 00:00:00 Ming Juan PabloartieLaura Gordonmik [facility] 1.2840.114 350.1.13.10 4.2.7.2.686 [id number] 044 [id number] [facility] 2021-05-05 11:42:00 2021-05-05 13:42:00 [facility] 1.2.840.114 350.1.13.10 4.2.7.2.686 [id number] 084 [id number] 2021-05-05 11:42:00 2021-05-05 13:42:00 Emergency Peng [facility] 1.2.840.114 350.1.13.10 4.2.7.2.686 [id number] 084 [id number] [facility] 2021-05-04 00:00:00 2021-05-04 00:00:00 Telephone Nayla Sanders [facility] 1.2840.114 350.1.13.10 4.2.7.2.686 [id number] 044 [id number] 2021-05-04 00:00:00 2021-05-04 00:00:00 Telephone Nayla Sanders [facility] 1.2840.114 350.1.13.10 4.2.7.2.686 [id number] 044 [id number] [facility] 2021-05-03 17:09:02 2021-05-03 17:56:38 Urgent Care Nayla Sanders [facility] 1.2840.114 350.1.13.10 4.2.7.2.686 [id number] 2021-05-03 17:09:02 2021-05-03 17:56:38 Urgent Care Nayla Sanders [facility] 1.114 350.1.13.10 4.2.7.2.686 [id number] [facility] 2021-05-03 17:20:00 2021-05-03 17:20:00 Outpatient R [facility] [id number] [facility] 2021-04-25 10:32:12 2021-04-25 10:47:12 Office Visit Laura Beltran [facility] 1.114 350.1.13.10 4.2.7.2.686 [id number] 2021-04-25 10:32:12 2021-04-25 10:47:12 Office Visit Laura Beltran [facility] 1.114 350.1.13.10 4.2.7.2.686 [id number] [facility] 2021-04-25 10:30:00 2021-04-25 10:30:00 Outpatient R LAURA BELTRAN [facility] [id number] [facility] 2021-04-25 00:00:00 2021-04-25 00:00:00 Orders Only Doctor Unassigned, [place] [facility] 1.114 350.1.13.10 4.2.7.2.686 [id number] 2021-04-25 00:00:00 2021-04-25 00:00:00 Orders Only Doctor Unassigned, [place] [facility] 1..114 350.1.13.10 4.2.7.2.686 [id number] [facility] 2021-04-19 00:00:00 2021-04-19 00:00:00 Orders Only Doctor Unassigned, [place] [facility] 1..114 350.1.13.10 4.2.7.2.686 [id number] [facility] 2021-04-11 15:30:00 2021-04-11 15:30:00 Outpatient JORDAN COSTA [facility] [id number] [facility] 2021-03-28 09:16:27 2021-03-28 09:46:27 Office Visit Laura Beltran [facility] include 234 beds at the [facility] 1.840.114 350.1.13.10 4.2.7.2.686 [id number] [facility] 2021-03-28 09:30:00 2021-03-28 09:30:00 Outpatient LAURA AMADOR [facility] [id number] [facility] 2021-02-20 00:00:00 2021-02-20 00:00:00 Patient Secure Msg Doctor Unassigned, [place] [facility] 1.840.114 350.1.13.10 4.2.7.2.686 [id number] [facility] 2020-11-25 22:09:00 2020-11-26 00:35:00 Emergency Jhoana Arnold [facility] 1.84.114 350.1.13.10 4.2.7.2.686 [id number] [facility] 2020-11-25 22:09:00 2020-11-26 00:35:00 Emergency X JHOANA ARNOLD [facility] ERT [id number] [facility] 2020-10-17 11:03:50 2020-10-17 11:18:50 Hotel 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 Desk Agent Visit Podevorah, [facility] Lab Main [facility] 1.840.114 350.1.13.10 4.2.7.2.686 [id number] [facility] 2020-10-17 11:00:00 2020-10-17 11:00:00 Outpatient R CRISTAL SEAMAN [facility] [id number] [facility] 2020-10-17 00:00:00 2020-10-17 00:00:00 Orders Only Doctor Unassigned, [place] [facility] 1.840.114 350.1.13.10 4.2.7.2.686 [id number] [facility] 2020-10-05 09:47:00 2020-10-05 15:13:00 Emergency X KELSI CORBETT [facility] ERT [id number] [facility] 2020-10-05 09:47:00 2020-10-05 15:13:00 Emergency Kelsi Corbett [facility] 1..840.114 350.1.13.10 4.2.7.2.686 [id number] [facility] Results Test Description Test Time Test Comments Results Result Co mments Source HERPES SIMPLEX AB, [id number] 13:50:57* Test Item Value Reference Range Interpretation Comme nts HERPES SIMPLEX AB, IgM (test code = 36822) 0.84 INDEX SEE BELOW INTERPRETATION U NITS RANGE ----- ----- NEGATIVE INDEX <=0.89 EQUIVOCAL INDEX 0.90-1.09 POSITIVE INDEX >=1.10 GONORRHEA, NAAT, [id number] 12:26:16* Test Item Value Reference Range Interpretation Comme nts GONORRHEA, NAAT, URINE (test code = 26002) NEGATIVE NEGATIVE Testing is perfo rmed with [employer] 6800/8800 systems usingreal-time polymerase chain reaction (PCR) method. A negative result does not exclude low level infection, specimensampling error, or collection error. CHLAMYDIA, NAAT, [id number] 12:26:16* Test Item Value Reference Range Interpretation Comme nts CHLAMYDIA, NAAT, URINE (test code = 07622) NEGATIVE NEGATIVE Testing is perfo rmed with Pradeep VLADISLAV 6800/8800 systems usingreal-time polymerase chain reaction (PCR) method. A negative result does not exclude low level infection, specimensampling error, or collection error. HIV 1/2 4TH GEN, RFLX [id number] 04:35:18* Test Item Value Reference Range Interpretation [facility] HIV 1/2 4TH GEN, RFLX CONF ( test code = 3514) NON-REACTIVE NON-REACTIVE HERPES SIMPLEX 1/2 AB, IgG [id number] 04:35:18* Test Item Value Reference Range Interpretation [facility] HERPES SIMPLEX 1 AB, IgG (test code = 45198) 11.300 INDEX SEE BELOW H INTERPRETATION U NITS RANGE ----- ----- NON-REACTIVE INDEX <1.000 REACTIVE INDEX >=1.000 HERPES SIMPLEX 2 AB, IgG (test code = 79842) 0.072 INDEX SEE BELOW INTERPRETATION U NITS RANGE ----- ----- NON-REACTIVE INDEX <1.000 REACTIVE INDEX >=1.000 HEPATITIS PANEL, [id number] 04:35:18* Test Item Value Reference Range Interpretation [facility] HEPATITIS A IgM (test code = 75782) NON-REACTIVE NON-REACTIVE HEPATITIS B CORE IgM (test code = 4644) NON-REACTIVE NON-REACTIVE HEPATITIS B SURF AG (test code = 2739) NON-REACTIVE NON-REACTIVE HEPATITIS C ANTIBODY (test code = 4675) NON-REACTIVE NON-REACTIVE INTERPRETATION HEPATITIS A: (test code = 2552) (NOTE) Hepatitis A sero logy shows no evidence of acute hepatitis A. INTERPRETATION HEPATITIS B: (test code = 44875) (NOTE) Hepatitis B sero logy shows no evidence of acute hepatitis B andno indication of exposure to hepatitis B virus in the previous onur eight months. INTERPRETATION HEPATITIS C: (test code = 58037) (NOTE) Hepatitis C sero logy shows no evidence of exposure to hepatitisC virus at this time. It can take up to 12 months after exposure tothe hepatitis C virus for antibodies to become detectable in the blood in certain patients. UNLESS OTHERWISE INDICATED, ALL TESTING PERFORMED AT [facility] [address] [place] [address] HANGAR ATTENDANT: GABY MALDONADO M.D. [place] NUMBER [id number] [facility] [place]. [id number] RPR REFLEX TO T. PALLIDUM - [id number] 03:16:34* Test Item Value Reference Range Interpretation Comme nts RPR (test code = 48386) NON-REACTIVE NON-REACTIVE RPR TITER (test code = 3500) NOT INDIC. TITER NOT INDIC. POCT Molecular [id number] 23:10:47* Test Item Value Reference Range Interpretation Comme nts POCT Molecular FluA (test co de = 39922-8) Negative Negative POCT Molecular FluB (test co de = 12755-0) Negative Negative Lab Interpretation (test cod e = 48827-9) Normal [facility] Molecular [id number] 23:10:47* Test Item Value Reference Range Interpretation Comme nts POCT Molecular FluA (test co de = 72501-0) Negative Negative POCT Molecular FluB (test co de = 81216-2) Negative Negative Lab Interpretation (test cod e = 80032-5) Normal [facility] SARS-COV-2 ANTIGEN (BINAX NOW)2023-10-16 23:05:00* Test Item Value Reference Range Interpretation Comme nts POCT SARS-COV-2 ANTIGEN (gladys t code = 48672-5) Positive Not Detected A On board controls acceptable with C Line (test code = 3574) Yes Lab Interpretation (test cod e = 99290-7) Abnormal [facility] SARS-COV-2 ANTIGEN (BINAX NOW)2023-10-16 23:05:00* Test Item Value Reference Range Interpretation Comme nts POCT SARS-COV-2 ANTIGEN (gladys t code = 17562-6) Positive Not Detected A On board controls acceptable with C Line (test code = 3574) Yes Lab Interpretation (test cod e = 54995-8) Abnormal [facility] MOLECULAR [id number] 22:59:34* Test Item Value Reference Range Interpretation Comme nts POCT Molecular Strep (test c ode = 23798-8) Negative Negative Lab Interpretation (test cod e = 34059-6) Normal [facility] MOLECULAR [id number] 22:59:34* Test Item Value Reference Range Interpretation Comme nts POCT Molecular Strep (test c ode = 25632-5) Negative Negative Lab Interpretation (test cod e = 42887-2) Normal [facility] SARS-COV-2 ANTIGEN (BINAX NOW)2023-02-07 15:14:00* Test Item Value Reference Range Interpretation Comme nts POCT SARS-COV-2 ANTIGEN (test code = 79145-4) Not Detected Not Detected On board controls acceptable with C Line (test code = 3574) Yes GALLO (test code = GALLO) accurate developme nt and interpretation of all internal controls Lab Interpretation (test code = 14247-3) Normal [facility] MOLECULAR [id number] 15:10:42* Test Item Value Reference Range Interpretation Comme nts POCT Molecular FluA (test co de = 11687-7) Positive Negative A Lab Interpretation (test cod e = 04669-3) Abnormal [facility] MOLECULAR [id number] 14:59:48* Test Item Value Reference Range Interpretation Comme nts POCT Molecular Strep (test c ode = 18655-5) Negative Negative Lab Interpretation (test cod e = 85742-1) Normal [facility], [id number] 22:34:41* Test Item Value Reference Range Interpretation Comme nts PREG SERUM (test code = 8312330199) Negative GALLO (test code = GALLO) Less than 10 IU/L. ?If low titer or ectopic is suspected, resubmit specimen in 48-72 hours. [facility] HospitalTR[facility]IN [id number] 22:33:51* Test Item Value Reference Range Interpretation Comments TROPONIN I (test code = 7459935256) 0.002 ng/mL See_Comment [Automated message] The system [...] of biotin. Lab Interpretation (test code = 92178-9) Normal [facility] HospitalSALICYLATE2022-10-19 22:27:20 SALICYLATE<10mg/L1 5:27 PM [facility] LAB[facility] SERVICESGL[facility] MEDICAL CENTERTherapeutic Range: ? Analgesic and Antipyretic Use ? 20-100 mg/L ? ? Anti-Inflammatory Use ? 100-250 mg/L Toxic Range: ? Greater than 300 mg/LUn[facility] [id number] 22:27:15ALCOHOL<10mg/dL08/07/2022 5:27 PM [facility] LABORAT[facility] SERVICESGLENN MEDICAL CENTERToxic Greater than or equal to 80 mg/dL. NOTE: Whole blood values are approximately 10% to 15% lower than serum and plasma.[facility] HospitalACETAMINOPHEN2022-10-19 22:27:10* Test Item Value Reference Range Interpretation Comme nts ACETAMINOP (test code = 6811902333) 10-30 L GALLO (test code = GALLO) Toxic: Greater sapphire n 200 ug/mL @ 4 hour post ingestion or greater than 50 ug/mL @ 12 hour post ingestion Lab Interpretation (test code = 70338-1) Abnormal [facility] HospitalBASIC METABOLIC PANEL (NA, K, CL, CO2, GLUCOSE, BUN, CREATININE, CA)2022-08-07 22:23:27* Test Item Value Reference Range Interpretation Comme nts NA (test code = 1864756078) 138 mmol/L 135-145 K (test code = 8608185158) 3.9 mmol/L 3.5-5 CL (test code = 4582169450) 102 mmol/L 98-108 CO2 TOTAL (test code = 1744890575) 27 mmol/L 23-31 AGAP (test code = 3636954104) 2-16 BUN (test code = 8695622769) 16 mg/dL 7-23 GLUCOSE (test code = 5333214065) 87 mg/dL 70-110 CREATININE (test code = 2043445385) 0.69 mg/dL 0.5-1.04 CALCIUM (test code = 3423665776) 9.7 mg/dL 8.6-10.6 eGFR (test code = 7694895988) mL/min/1.73m2 GALLO (test code = GALLO) Association [...] or urine or abnormalities in imaging tests). [facility] HospitalCREATINE [id number] 22:23:27* Test Item Value Reference Range Interpretation Comme nts CK (test code = 1137413608) 45 U/L 33-194 Lab Interpretation (test cod e = 46290-7) Normal [facility] HospitalHEPATIC FUNCTION PANEL (35104) (ALB,T.PRO,BILI T,BU/BC,ALT,AST,ALK PHOS)2022-08-07 22:23:27* Test Item Value Reference Range Interpretation Comme nts TOTAL BILI (test code = 4489083274) 0.7 mg/dL 0.1-1.1 BILI UNCON (test code = 9501247773) 0.3 mg/dL 0.1-1.1 BILI CONJ (test code = 5644040024) 0.0 mg/dL 0-0.3 T PROTEIN (test code = 7716486657) 7.4 g/dL 6.3-8.2 ALBUMIN (test code = 0876225156) 4.4 g/dL 3.5-5 ALK PHOS (test code = 2134418523) 80 U/L 34-122 ALTv (test code = 1742-6) 15 U/L 5-35 AST(SGOT) (test code = 6871258098) 15 U/L 13-40 Lab Interpretation (test cod e = 49929-1) Normal [facility] HospitalLIPASE2022-10-19 22:23:27* Test Item Value Reference Range Interpretation Comme nts LIPASE (test code = 6232741463) 51 U/L 0-220 Lab Interpretation (test cod e = 80069-0) Normal [facility] HospitalCB WITH [id number] 22:06:06* Test Item Value Reference Range Interpretation Comme nts WBC (test code = 6690-2) See_Comment H [Automated HarQena ge] The system which generated this result [...] g/dL 31.6-35.1 H RDW-SD (test code = 21115-7) 40.6 fL 39-49.9 RDW-CV (test code = 788-0) 13.1 % 12-15.5 PLT (test code = 777-3) See_Comment H [Automated messa ge] The system which generated this result transmitted reference range: 166 - 358 10*3/?L. The reference range was not used to interpret this result as normal/abnormal. MPV (test code = 96350-6) 10.1 fL 9.5-12.9 NRBC/100 WBC (test code = 7033910134) See_Comment [Automated Fab ssage] The system which generated this result transmitted reference range: 0.0 - 10.0 /100 WBCs. The reference range was not used to interpret this result as normal/abnormal. NRBC x10^3 (test code = 6910609933) See_Comment [Automated messa ge] The system which generated this result transmitted reference range: 10*3/?L. The reference range was not used to interpret this result as normal/abnormal. GRAN MAT (NEUT) % (test code = 770-8) 62.7 % IMM GRAN % (test code = 1616423681) 0.40 % LYMPH % (test code = 736-9) 25.7 % MONO % (test code = 5905-5) 7.8 % EOS % (test code = 713-8) 2.8 % BASO % (test code = 706-2) 0.6 % GRAN MAT x10^3(ANC) (test code = 0444787450) 8.40 10*3/uL 1.88-7.09 H IMM GRAN x10^3 (test code = 0146738873) 0.06 10*3/uL 0-0.06 LYMPH x10^3 (test code = 731-0) 3.44 10*3/uL 1.32-3.29 H MONO x10^3 (test code = 742-7) 1.04 10*3/uL 0.33-0.92 H EOS x10^3 (test code = 711-2) 0.38 10*3/uL 0.03-0.39 BASO x10^3 (test code = 704-7) 0.08 10*3/uL 0.01-0.07 H Lab Interpretation (test code = 98469-5) Abnormal [facility] HospitalSARS-CoV-2 (COVID-19) by RT-PCR (HIGH RISK) 2021-06-29 00:00:00* Test Item Value Reference Range Interpretation Comme nts SARS-CoV-2 INTERPRETATION (t est code = 30022) NEGATIVE SOURCE (test code = 04861) NOT SPECIFIED SARS-CoV-2 (COVID-19) by RT-PCR (HIGH RISK)2021-06-29 00:00:00* Test Item Value Reference Range Interpretation Comme nts SARS-CoV-2 INTERPRETATION (t est code = 07459) NEGATIVE SOURCE (test code = 65535) NOT SPECIFIED COMPREHENSIVE METABOLIC [id number] 00:00:00* Test Item Value Reference Range Interpretation Comme nts GLUCOSE (test code = 2217) 92 MG/DL BUN (test code = 2208) 11 MG/DL CREATININE (test code = 2214) 0.80 MG/DL eGFR AMER. (test cod e = 39740) 108 ML/MIN/1.73 eGFR NON- AMER. (test code = 37163) 94 ML/MIN/1.73 CALC BUN/CREAT (test code = [...] code = 2219) 11 U/L COMPREHENSIVE METABOLIC [id number] 00:00:00* Test Item Value Reference Range Interpretation Comme nts GLUCOSE (test code = 2217) 92 MG/DL BUN (test code = 2208) 11 MG/DL CREATININE (test code = 2214) 0.80 MG/DL eGFR AMER. (test cod e = 25292) 108 ML/MIN/1.73 eGFR NON- AMER. (test code = 65613) 94 ML/MIN/1.73 CALC BUN/CREAT (test code = [...] ALT (test code = 2219) 11 U/L [id number] 00:00:00* Test Item Value Reference Range Interpretation Comme nts AMYLASE (test code = 2205) 52 U/L [id number] 00:00:00* Test Item Value Reference Range Interpretation Comme nts AMYLASE (test code = 2205) 52 U/L [id number] 00:00:00* Test Item Value Reference Range Interpretation Comme nts LIPASE (test code = 2057) 20 U/L [id number] 00:00:00* Test Item Value Reference Range Interpretation Comme nts LIPASE (test code = 2057) 20 U/L [id number] 00:00:00* Test Item Value Reference Range Interpretation Comme nts LIPASE (test code = 8) 20 U/L CULTURE, URINE [ADDED]2021-01-20 00:00:00* Test Item Value Reference Range Interpretation Comme nts CULTURE, URINE (test code = 17618) SPECIMEN NUMBER: [id number] CULTURE, URINE [ADDED]2021-01-20 00:00:00* Test Item Value Reference Range Interpretation Comme nts CULTURE, URINE (test code = 24491) SPECIMEN NUMBER: [id number] 00:00:00* Test Item Value Reference Range Interpretation Comme nts RPR RESULT (test code = 3501) NON-REACTIVE RPR TITER (test code = 3500) NOT INDIC. TITER VAGINAL PATHOGENS DNA [id number] 00:00:00* Test Item Value Reference Range Interpretation Comme nts CONRAD SPECIES (test code = 66527) NEGATIVE G. VAGINALIS (test code = 38670) POSITIVE T. VAGINALIS (test code = 63264) NEGATIVE VAGINAL PATHOGENS DNA [id number] 00:00:00* Test Item Value Reference Range Interpretation Comme nts CONRAD SPECIES (test code = 88893) NEGATIVE G. VAGINALIS (test code = 59946) POSITIVE T. VAGINALIS (test code = 28579) NEGATIVE HIV AB/AG COMBO RFLX [id number] 00:00:00* Test Item Value Reference Range Interpretation Comme nts HIV 1/2 4TH GEN, RFLX CONF ( test code = 3514) NON-REACTIVE HIV AB/AG COMBO RFLX [id number] 00:00:00* Test Item Value Reference Range Interpretation Comme nts HIV 1/2 4TH GEN, RFLX CONF ( test code = 3514) NON-REACTIVE ACUTE HEPATITIS [id number] 00:00:00* Test Item Value Reference Range Interpretation Comme nts HEPATITIS A IgM (test code = 42720) NON-REACTIVE HEPATITIS B CORE IgM (test c ode = 4644) NON-REACTIVE HEPATITIS B SURF AG (test co de = 2739) NON-REACTIVE HEPATITIS C ANTIBODY (test c ode = 4675) NON-REACTIVE INTERPRETATION HEPATITIS A: (test code = 2552) (NOTE) INTERPRETATION HEPATITIS B: (test code = 42432) (NOTE) INTERPRETATION HEPATITIS C: (test code = 40601) (NOTE) ACUTE HEPATITIS [id number] 00:00:00* Test Item Value Reference Range Interpretation Comme nts HEPATITIS A IgM (test code = 04068) NON-REACTIVE HEPATITIS B CORE IgM (test c ode = 4644) NON-REACTIVE HEPATITIS B SURF AG (test co de = 2739) NON-REACTIVE HEPATITIS C ANTIBODY (test c ode = 4620) NON-REACTIVE INTERPRETATION HEPATITIS A: (test code = 2552) (NOTE) INTERPRETATION HEPATITIS B: (test code = 17250) (NOTE) INTERPRETATION HEPATITIS C: (test code = 29495) (NOTE) CHLAMYDIA, AMPLIFIED, [id number] 00:00:00* Test Item Value Reference Range Interpretation Comme nts CHLAMYDIA, NAAT (test code = 73664) NEGATIVE CHLAMYDIA, AMPLIFIED, [id number] 00:00:00* Test Item Value Reference Range Interpretation Comme nts CHLAMYDIA, NAAT (test code = 94525) NEGATIVE GC, AMPLIFIED, [id number] 00:00:00* Test Item Value Reference Range Interpretation Comme nts GONORRHEA, NAAT (test code = 86745) NEGATIVE GC, AMPLIFIED, [id number] 00:00:00* Test Item Value Reference Range Interpretation Comme nts GONORRHEA, NAAT (test code = 92942) NEGATIVE [id number] 00:00:00* Test Item Value Reference Range Interpretation Comme nts RPR RESULT (test code = 3501) NON-REACTIVE RPR TITER (test code = 3500) NOT INDIC. TITER [id number] 00:00:00* Test Item Value Reference Range Interpretation Comme nts RPR RESULT (test code = 3501) NON-REACTIVE RPR TITER (test code = 3500) NOT INDIC. TITER CULTURE, [id number] 00:00:00* Test Item Value Reference Range Interpretation Comme nts CULTURE, URINE (test code = 86497) SPECIMEN NUMBER: [id number] CULTURE, [id number] 00:00:00* Test Item Value Reference Range Interpretation Comme nts CULTURE, URINE (test code = 33373) SPECIMEN NUMBER: [id number] CULTURE, [id number] 00:00:00* Test Item Value Reference Range Interpretation Comme nts CULTURE, URINE (test code = 33212) SPECIMEN NUMBER: [id number] CULTURE, [id number] 00:00:00* Test Item Value Reference Range Interpretation Comme nts CULTURE, URINE (test code = 92889) SPECIMEN NUMBER: [id number] SARS-CoV-2 (COVID-19) by RT-PCR (HIGH RISK)2020-11-03 00:00:00* Test Item Value Reference Range Interpretation Comme nts SARS-CoV-2 INTERPRETATION (t est code = 81044) NEGATIVE SOURCE (test code = 31926) NOT SPECIFIED SARS-CoV-2 (COVID-19) by RT-PCR (HIGH RISK)2020-11-03 00:00:00* Test Item Value Reference Range Interpretation Comme nts SARS-CoV-2 INTERPRETATION (t est code = 27024) NEGATIVE SOURCE (test code = 84436) NOT SPECIFIED CHLAMYDIA, AMPLIFIED, [id number] 00:00:00* Test Item Value Reference Range Interpretation Comme nts CHLAMYDIA, NAAT (test code = 70453) NEGATIVE CHLAMYDIA, AMPLIFIED, [id number] 00:00:00* Test Item Value Reference Range Interpretation Comme nts CHLAMYDIA, NAAT (test code = 94958) NEGATIVE GC, AMPLIFIED, [id number] 00:00:00* Test Item Value Reference Range Interpretation Comme nts GONORRHEA, NAAT (test code = 40777) NEGATIVE GC, AMPLIFIED, [id number] 00:00:00* Test Item Value Reference Range Interpretation Comme nts GONORRHEA, NAAT (test code = 31040) NEGATIVE VAGINAL PATHOGENS DNA [id number] 00:00:00* Test Item Value Reference Range Interpretation Comme nts CONRAD SPECIES (test code = 78970) NEGATIVE G. VAGINALIS (test code = 74688) POSITIVE T. VAGINALIS (test code = 09160) NEGATIVE VAGINAL PATHOGENS DNA [id number] 00:00:00* Test Item Value Reference Range Interpretation Comme nts CONRAD SPECIES (test code = 30292) NEGATIVE G. VAGINALIS (test code = 36818) POSITIVE T. VAGINALIS (test code = 73424) NEGATIVE [id number] 00:00:00* Test Item Value Reference Range Interpretation Comme nts RPR RESULT (test code = 3501) NON-REACTIVE RPR TITER (test code = 3500) NOT INDIC. TITER [id number] 00:00:00* Test Item Value Reference Range Interpretation Comme nts RPR RESULT (test code = 3501) NON-REACTIVE RPR TITER (test code = 3500) NOT INDIC. TITER [id number] 00:00:00* Test Item Value Reference Range Interpretation Comme nts RPR RESULT (test code = 3501) NON-REACTIVE RPR TITER (test code = 3500) NOT INDIC. TITER HIV AB/AG COMBO RFLX [id number] 00:00:00* Test Item Value Reference Range Interpretation Comme nts HIV 1/2 4TH GEN, RFLX CONF ( test code = 3514) NON-REACTIVE PAP TEST, THINPREP, [id number] 00:00:00* Test Item Value Reference Range Interpretation Comme nts SOURCE: (test code = 8001) Cervical/Endocervical SLIDES: (test code = 8011) 1 LMP: (test code = 8021) 05/11/2020 SPECIMEN ADEQUACY: (test code = 27989) (NOTE) INTERPRETATION: (test code = 82025) NILM/NO EPITH. ABNORMALITY;SEE BELOW LAB ANIMAL TECHNOLOGIST: (test code = 8101) JACKSON Mao(ASCP) LOCATION: (test code = 07794) (NOTE) CPT: (test code = 8140) (NOTE) VAGINAL PATHOGENS DNA [id number] 00:00:00* Test Item Value Reference Range Interpretation Comme nts CONRAD SPECIES (test code = 19073) NEGATIVE G. VAGINALIS (test code = 17918) NEGATIVE T. VAGINALIS (test code = 36412) NEGATIVE HIV AB/AG COMBO RFLX [id number] 00:00:00* Test Item Value Reference Range Interpretation Comme nts HIV 1/2 4TH GEN, RFLX CONF ( test code = 3514) NON-REACTIVE VAGINAL PATHOGENS DNA [id number] 00:00:00* Test Item Value Reference Range Interpretation Comme nts CONRAD SPECIES (test code = 51529) NEGATIVE G. VAGINALIS (test code = 01320) NEGATIVE T. VAGINALIS (test code = 63228) NEGATIVE PAP TEST, THINPREP, [id number] 00:00:00* Test Item Value Reference Range Interpretation Comme nts SOURCE: (test code = 8001) Cervical/Endocervical SLIDES: (test code = 8011) 1 LMP: (test code = 8021) 05/11/2020 SPECIMEN ADEQUACY: (test code = 24950) (NOTE) INTERPRETATION: (test code = 08067) NILM/NO EPITH. ABNORMALITY;SEE BELOW LAB ANIMAL TECHNOLOGIST: (test code = 8101) JACKSON Mao(ASCP) LOCATION: (test code = 40899) (NOTE) CPT: (test code = 8140) (NOTE) ACUTE HEPATITIS [id number] 00:00:00* Test Item Value Reference Range Interpretation Comme nts HEPATITIS A IgM (test code = 41324) NON-REACTIVE HEPATITIS B CORE IgM (test c ode = 4644) NON-REACTIVE HEPATITIS B SURF AG (test co de = 2739) NON-REACTIVE HEPATITIS C ANTIBODY (test c ode = 4675) NON-REACTIVE INTERPRETATION HEPATITIS A: (test code = 2552) (NOTE) INTERPRETATION HEPATITIS B: (test code = 37563) (NOTE) INTERPRETATION HEPATITIS C: (test code = 25701) (NOTE) HPV HIGH RISK WITH GENOTYPE, [id number] 00:00:00* Test Item Value Reference Range Interpretation Comme nts HPV HIGH RISK INTERP (test c ode = 54555) NEGATIVE HPV 16 (test code = 93268) NEGATIVE HPV 18 (test code = 48646) NEGATIVE HPV, HR, OTHER GENOTYPES (te st code = 92181) NEGATIVE HPV HIGH RISK WITH GENOTYPE, [id number] 00:00:00* Test Item Value Reference Range Interpretation Comme nts HPV HIGH RISK INTERP (test c ode = 42971) NEGATIVE HPV 16 (test code = 94647) NEGATIVE HPV 18 (test code = 87187) NEGATIVE HPV, HR, OTHER GENOTYPES (te st code = 93569) NEGATIVE ACUTE HEPATITIS [id number] 00:00:00* Test Item Value Reference Range Interpretation Comme nts HEPATITIS A IgM (test code = 56152) NON-REACTIVE HEPATITIS B CORE IgM (test c ode = 4644) NON-REACTIVE HEPATITIS B SURF AG (test co de = 2739) NON-REACTIVE HEPATITIS C ANTIBODY (test c ode = 4675) NON-REACTIVE INTERPRETATION HEPATITIS A: (test code = 2552) (NOTE) INTERPRETATION HEPATITIS B: (test code = 53196) (NOTE) INTERPRETATION HEPATITIS C: (test code = 83048) (NOTE) CHLAMYDIA, AMPLIFIED, [id number] 00:00:00* Test Item Value Reference Range Interpretation Comme nts CHLAMYDIA, TMA (test code = 54062) NEGATIVE CHLAMYDIA, AMPLIFIED, [id number] 00:00:00* Test Item Value Reference Range Interpretation Comme nts CHLAMYDIA, TMA (test code = 01046) NEGATIVE GC, AMPLIFIED, [id number] 00:00:00* Test Item Value Reference Range Interpretation Comme nts GONORRHEA, TMA (test code = 10118) NEGATIVE GC, AMPLIFIED, [id number] 00:00:00* Test Item Value Reference Range Interpretation Comme nts GONORRHEA, TMA (test code = 71412) NEGATIVE [id number] 00:00:00* Test Item Value Reference Range Interpretation Comme nts PROLACTIN (test code = 2800) 11.0 NG/ML [id number] 00:00:00* Test Item Value Reference Range Interpretation Comme nts PROLACTIN (test code = 2800) 11.0 NG/ML [id number] 00:00:00* Test Item Value Reference Range Interpretation Comme nts TSH, THIRD GENERATION (test code = 2821) 0.793 UIU/ML [id number] 00:00:00* Test Item Value Reference Range Interpretation Comme nts TSH, THIRD GENERATION (test code = 2821) 0.793 UIU/ML [id number] 00:00:00* Test Item Value Reference Range Interpretation Comme nts TSH, THIRD GENERATION (test code = 2821) 0.793 UIU/ML Notes Date/Time Note Provider Source 2024-03-08 10:07:44 4375-31-44O98:07:44 Images from the original note were not included.Requested Renewalsdextroamphetamine-amphetami ne (ADDERALL) 30 mg tabletSig: Take 1 tablet by mouth in the morning and 1 tablet in the evening.Disp: 60 tablet Refills: 0Start: 03/08/2024Earliest Fill Date: 03/08/2024lass: eRXFor: Attention deficit disorder (ADD) in adultLast ordered: 3 weeks ago (02/11/2024) by Ruby Jose Review Required Zigphj4903/08/2024 10:01 AMProtocol Details This refill cannot be delegatedValid encounter within last 12 monthsTo be filled at: [id number] - [place], [place] - [address] [facility] MARY ANNE & Mallorie VisitsDate Type Provider [...] authorizing provider and meeting all other requirements 96660-2Goazeefic encounter LhogDD1456-39-74E64:07:58Telephone encounter NoteTXT1.2.840.485736.1.13.104.2.7. 2.011021|[id number] for patient zptg70869-4FbkzRINRAZBCPWRSvskspvbb C-CDA narrative dsra302601317Wevpidb M Fisher [address] MdckIchjgtqbeWwxvewgquBVQY241364039 9OJTXOJLRCYEGVEOZTKQPAL3169-17-96B5 0:07:581.2.840.852597.1.72.3.15|1.2 .840.754213.1.13.104.2.7.2.727879_2 [id number] Sirena Crowe LVN [facility] 2024-02-11 14:59:40 5996-76-15C18:59:40 Recent VisitsDate Type Provider Dept01/07/24 Office Visit Laura Beltran MD Ang-Db [facility] Med10/16/23 Office Visit Gaby Palma MD Ang-Db [facility] Med08/11/23 Office Visit Laura Beltran MD Ang-Db [facility] Med02/03/23 Office Visit Laura Beltran MD Ang-Db [facility] Med12/06/22 Office Visit Trena Wyatt PA Ang-Db [facility] Med11/20/22 Office Visit Vaughn Tan FNP Ang-Db [facility] Med09/25/22 Office Visit Laura Beltran MD Ang-Db [facility] MedShowing recent visits within past 540 [...] morning and 1 tablet in the evening. 49278-8Vlefvyhzq encounter FhdfUH8683-01-39Y61:00:03Telephone encounter NoteTXT1.2.840.577084.1.13.104.2.7. 2.867131|6164227034VVJywljnvgd for patient owtf27281-5XwcbWFSOXREXQPMBgjwamucc C-CDA narrative text[address] JbetHwiqptphsUtyzotcwpMSUI459380488 5GOBTZOJFQLGJRAEMTOZSVZ6017-05-74V8 5:00:031.2.840.335891.1.72.3.15|1.2 .840.136175.1.13.104.2.7.2.727879_2 [id number] [facility] 2024-02-11 14:42:36 5592-60-25O60:42:36 Copied from [facility] #[id number]. Topic: Clinical - Order>> Feb 11, 2024 2:41 PM Patient Video Effects Editor wrote:Anne Marie Durham is a 43 year old female is calling in refill fordextroamphetamine-amphetamine 30 mg tablet (AdderalL)[id number] AT [facility] ClickBus DRIVEPhone: Cpqajeb is completely out 55952-1Yfpbcnzzf encounter NrrnGZ1563-81-01W45:43:22Telephone encounter NoteTXT1.2.840.819418.1.13.104.2.7. 2.742879|3833442038OJTfmsbqjbh for patient kfsk25274-2KgphIYBVDMOJUNEKxnqluvxo C-CDA narrative text[address] LyydBrypkxzxsBvofqoxxqUVQS851901106 1DZTCFPPUXDNBXLLXYFVRWQ6831-92-67K2 4:43:221.2.840.232258.1.72.3.15|1.2 .840.373824.1.13.104.2.7.2.727879_2 [id number] [facility] 2024-01-01 16:51:37 6983-93-91I52:51:37 Images from the original note were not included.Requested Renewalsdextroamphetamine-amphetami ne (ADDERALL) 30 mg tabletPossible duplicate: Jolanta to review recent actions on this medicationSig: Take 1 tablet by mouth in the morning and 1 tablet in the evening.Disp: 60 tablet Refills: 0Start: 01/01/2024Earliest Fill Date: 01/01/2024lass: eRXNon-formulary For: Attention deficit disorder (ADD) in adultLast ordered: 3 weeks ago (12/11/2023) by Ruby Jose Review Required Yzqvpa5201/01/2024 04:48 PMProtocol Details This refill cannot be delegatedValid encounter within last 12 monthsTo be filled at: [id number] [place] [facility] [address] [facility] & WILKINSRecent VisitsDate Type Provider Dept112/17/22 [...] authorizing provider and meeting all other requirements 76956-4Pcqtxntqc encounter BnzjVB2047-59-98N54:51:45Telephone encounter NoteTXT1.2.840.262085.1.13.104.2.7. 2.050983|5146488116NKLcimdcmmp for patient ydid53681-2KqfpRVWGXCYXJNKDjevnlewh C-CDA narrative wdbs451129023Aikykvu M Fisher [address] GfboLploxcnadZmrcegsvcGLND182837878 5EDRFYQSWBHFQQGZPSLFFRW4813-02-55K8 6:51:451.2.840.830545.1.72.3.15|1.2 .840.125461.1.13.104.2.7.2.727879_2 [id number] Sirena Crowe LVN [facility] 2024-01-01 16:46:45 9398-65-51O87:46:45 Copied from [facility] #[id number]. Topic: Clinical - Order>> Jan 01, 2024 4:46 PM Patient Video Effects Editor wrote:Anne Marie Durham is a 43 year old female is calling in refill for :dextroamphetamine-amphetamine 30 mg tablet (AdderalL)[facility][id number] - [place], [place] - [address] [facility] [address] [address]Bgxkm: [phone] Cjnymzyxbkidqn signed by Ravi Deal at 01/01/2024 4:48 PM IAR58423-6Xmqlauydg encounter NbspNT0121-00-48Q29:48:05Telephone encounter NoteTXT1.2.840.312261.1.13.104.2.7. 2.970644|6457019892IHSkzeckyou for patient gfqa44133-0EhlbDWHEWLLAEPRFmjpmonqq C-CDA narrative text[address] FjtfOscrbwzxpSanrvtjsuLAQY322273366 4OJDHAPRVTXHCXEYDKJDJWM0892-87-27H9 6:48:051.2.840.447663.1.72.3.15|1.2 .840.330254.1.13.104.2.7.2.727879_2 [id number] [facility] 2023-12-24 09:00:54 3616-68-93V67:00:54 Anne Marie Durham is a 43 year old femalePatient requesting referral for ophthalmology and dermatology. Please advise. 76077-1Wdtyanbwq encounter BrslEB2601-89-78S96:04:48Telephone encounter NoteTXT1.2.840.106162.1.13.104.2.7. 2.054848|0241688328CKQqrvjdcyu for patient vdmy96225-1HexwCKMNRUTMBDSUujqevkas C-CDA narrative vyjs437877682Leifdhd L Thompson01 Ray StreetTXTX[address] 0YJYPPKNVRDRRHQZXOQMFKL3048-95-92Y6 9:04:481.2.840.880202.1.72.3.15|1.2 .840.024609.1.13.104.2.7.2.727879_2 [id number] Saulo Carver [facility] 2023-12-11 15:06:12 0940-74-67R73:06:12 Pt calling to report that she has contacted several pharmacies and has been told she will need to request a change in her Adderall medication to 60mg capsules or to 20mg tablets (disp 90) in order for her current pharmacy to fill. Pt states she does not want generic medication 83733-3Wnncbxhtb encounter AsotCY0058-07-22Z12:09:16Telephone encounter NoteTXT1.2.840.947568.1.13.104.2.7. 2.311190|4459914533IAOipkbhpza for patient irnd85972-4PznrHWPLAVKBAONUwvxqakbu C-CDA narrative bqkj91740202Ftkuk L [address]TXTX[address]755 5RRSMTPFBBCZXYQQXZNDEWL8020-79-71G7 5:09:161.2.840.383363.1.72.3.15|1.2 .840.443209.1.13.104.2.7.2.727879_2 [id number] Eliza Landon [facility] 2023-12-11 11:24:13 8499-93-52G13:24:13 Anne Marie Durham is a 43 year old femalePatient calling asking if Rx dextroamphetamine-amphetamine (ADDERALL) 30 mg tablet ca be sent to [facility] in [place] instead. Please advise. 56644-5Slmifwbll encounter EssbOV7612-85-68N11:26:15Telephone encounter NoteTXT1.2.840.217007.1.13.104.2.7. 2.428164|5722926770HDCgoygjxgi for patient axzp26371-1OgkjPPWBQCYNGWWLmipizpmz C-CDA narrative vyaw702195721Evinsfl J Raines[address] Ray StreetTXTX[address]755 0KSBWHEELVEJZAUSKLGWJNN0591-53-78T8 1:26:151.2.840.631050.1.72.3.15|1.2 .840.325181.1.13.104.2.7.2.727879_2 [id number] Kaya Knight [facility] 2023-12-09 09:42:25 6257-78-81H09:42:25 Anne Marie Durham is a 43 year old femalePt states that her pharmacy has the ADHD medication on back order, please resubmit to:[facility], [place] [address]-6Lgoehjbod encounter HmbnII6870-51-62O56:48:39Telephone encounter NoteTXT1.2.840.119198.1.13.104.2.7. 2.196515|3446503413UCTgbehxwlf for patient jdzj09094-8QbguWLNHBKOMOMJYrndvstqv C-CDA narrative bczm001223775Kxigxgz M Ray[address] Ray StreetTXTX[address]755 0PIMTBLZWJAEASMYGNNBWPM4909-26-35K2 9:48:391.2.840.547535.1.72.3.15|1.2 .840.312177.1.13.104.2.7.2.727879_2 [id number] Chantal Delatorre [facility] 2023-12-08 14:58:12 2192-63-49J51:58:12 Images from the original note were not included.Requested Renewalsdextroamphetamine-amphetami ne (ADDERALL) 30 mg tabletSig: Take 1 tablet by mouth in the morning and 1 tablet in the evening.Disp: 60 tablet Refills: 0Start: 12/08/2023Earliest Fill Date: 12/08/2023lass: eRXNon-formulary For: Attention deficit disorder (ADD) in adultLast ordered: 4 weeks ago (11/10/2023) by Ruby Jose Review Required Paercv9512/08/2023 02:13 PMProtocol Details This refill cannot be delegatedValid encounter within last 12 monthsTo be filled at: [facility] #[id number] [place], [place] - [address] [facility] DRIVERecent VisitsDate Type Provider Dept112/17/22 Office Visit Gaby Palma MD Ang-Db [facility] Med08/11/23 Office Visit Laura Beltran MD Ang-Db [facility] Med02/03/23 Office Visit Laura Beltran MD Ang-Db [facility] Med12/06/22 Office Visit Trena Wyatt PA Ang-Db [facility] Med11/20/22 Office Visit Vaughn Tan FNP Ang-Db [facility] Med09/25/22 Office Visit Laura Beltran MD Ang-Db [facility] Med07/09/22 Office Visit Laura Beltran MD Ang-Db [facility] MedShowing recent visits within past 540 days with a meds authorizing provider and meeting all other requirementsFuture AppointmentsDate Type Provider Dept12/15/23 Appointment Laura Beltran MD Ang-Db [facility] MedShowing future appointments within next 150 days with a meds authorizing provider and meeting all other requirements 42188-0Nroqpysqs encounter JdiwJN0145-93-20O80:58:19Telephone encounter NoteTXT1.2.840.910542.1.13.104.2.7. 2.071833|5020944870QAJmmbytukz for patient gevn39437-1StcyCELYBDRSAEKUueknfajt C-CDA narrative vvre002941282Rtmpzky M Fisher [address]TXTX[address] 9VUCUJNMZFMSOGQNYGQTWNC6988-35-75I9 4:58:191.2.840.165037.1.72.3.15|1.2 .840.773296.1.13.104.2.7.2.727879_2 [id number] Sirena Crowe [facility] 2023-12-08 14:12:34 3836-42-11Q75:12:34 Anne Marie Durham is a 43 year old femalePt called requesting a refill. Pt is out of medication.[id number] [facility]: Pyziiouvdmqbtk signed by Mariaa Villegas at 12/08/2023 2:13 PM NCZ47028-5Jnyzbjxrx encounter HrnpAK3604-52-64K37:13:35Telephone encounter NoteTXT1.2.840.619468.1.13.104.2.7. 2.438730|7222918487GLZoeabvjug for patient rgba72856-5HhcpMYSNTOYCMTDNsaobkais C-CDA narrative [address]TXTX[address] 4PXISVLXQSFGYSJZVMUZHPT0908-21-74W6 4:13:351.2.840.397625.1.72.3.15|1.2 .840.690162.1.13.104.2.7.2.727879_2 [id number] [facility] 2023-12-04 12:13:53 3831-73-49F40:13:53 1.Anne Marie Durham is a 43 year old femalePt is requesting a referral to Dr Gurjit Romeo, [facility] in [place].Ph [phone] Kmyuf visit consultation.No appt currently per pt til referral placed.2. Pt is requesting brand name of [employer]- due to the dextroamphetamine-amphetamine (ADDERALL) 30 mg tablet does not like. 87622-2Edpmuidgl encounter BnuqLV3299-07-51L35:21:28Telephone encounter NoteTXT1.2.840.132327.1.13.104.2.7. 2.753106|1540769789BMEicllovyc for patient iuja91732-5OonrFALHKJITIFEIgssewrag C-CDA narrative text[address] QkzmTikibdbwmGfumjvzrqCOHZ701446785 2BZJKQEKJIBFKQTKPNZBJHL2195-56-00C8 2:21:281.2.840.799495.1.72.3.15|1.2 .840.461911.1.13.104.2.7.2.727879_2 [id number] [facility] 2023-11-27 08:27:14 7741-54-86W32:27:14 error 78158-0Kukqutvto encounter EgzrSK8215-23-50I79:35:49Telephone encounter NoteTXT1.2.840.811697.1.13.104.2.7. 2.932419|7186793654OFHrqkdbsvi for patient bcok43797-4CvpbCBHAKNSNJATTihxexvda C-CDA narrative ulsh384945374CtKbsuba Crawford[address] TsufVajwhksnkXwrnjvbbgQSSS120232694 2NMATINHYUEOCYVRKJPBHBP7860-18-81K4 8:35:491.2.840.027408.1.72.3.15|1.2 .840.213559.1.13.104.2.7.2.727879_2 [id number] Ravi [facility] 2023-11-10 11:09:04 1343-78-95R10:09:04 Recent VisitsDate Type Provider Dept112/17/22 Office Visit [...] to with back to 30 mg adderall 71361-1Qxscmuuor encounter IssmIZ1592-47-75H20:09:44Telephone encounter NoteTXT1.2.840.299452.1.13.104.2.7. 2.293562|9138189609HJQzdauvalr for patient nscc79644-3SyniJXLUYAFZDFXNqmbdodqq C-CDA narrative textUT[address] StreetTXTX775557755 7KCJXJEHAMGVIQJGLICGWNZ9739-25-75B6 1:09:441.2.840.038323.1.72.3.15|1.2 .840.061614.1.13.104.2.7.2.727879_2 [id number] [facility] 2023-11-10 09:11:44 7782-67-78A19:11:44 Anne Marie Durham is a 43 year old femalePt called following up on request. Please advise. 32373-8Bwyrpkisb encounter YjkzXI9788-21-99T88:15:29Telephone encounter NoteTXT1.2.840.310999.1.13.104.2.7. 2.250760|5837543631JJUaaqkqofa for patient fqyd66410-1IdwfEYCQZQOHPOZSuimfnllk C-CDA narrative wtdp89045742HfbmsylMariaa Sykes[address] StreetTXTX[address] 9HYMVCXXTDXBTVLOFAOZDUK3282-00-93U1 9:15:291.2.840.095507.1.72.3.15|1.2 .840.694186.1.13.104.2.7.2.727879_2 [id number] Mariaa Villegas [facility] 2023-11-08 16:34:25 7630-02-91I22:34:25 Anne Marie Durham is a 43 year old femalePt calling to request a prescription of her correct dosage of medication andrew now has instock the 30mg pillsdextroamphetamine-amphetamine 30 mg tablet (AdderalL)[id number] - [place] - [address] [facility] [place] [address] [address] [facility] [place] [address]Oouel: [phone] Xsmskfdupczhuz signed by Theo Chang at 11/08/2023 4:37 PM XYA76387-5Pjmxnkaqn encounter XfrvGQ6751-31-49M28:37:37Telephone encounter NoteTXT1.2.840.917366.1.13.104.2.7. 2.161441|1657544758FVJlttjeaxj for patient orrf65477-4KkcyEOFJRBUHWSMVptqvbtsw C-CDA narrative cigp039298790NgwjTheo Barnett[address] IydsYpsdrezzgAmxnkpupyZGAB573694432 3FFWJERIFILHAHZEUHDKREP1477-45-24Q4 6:37:371.2.840.118740.1.72.3.15|1.2 .840.489337.1.13.104.2.7.2.727879_2 [id number] Theo Barnett [facility] 2023-10-08 13:26:52 1180-27-36G70:26:52 Anne Marie Durham is a 43 year old femalePt states that her pharmacy doesn't have dextroamphetamine-amphetamine 30 mg tablet (AdderalL) in stock but they do have dextroamphetamine-amphetamine 20 mg tablet (AdderalL)She is requesting the dosage be changed to 20mg with an adjusted quantity to equal her current 30mg dosage. She states she currently takes two 30mg pills daily. Please contact pt if necessary [phone] (home)[id number] [place], [place] - [address] [facility]: Kzkwjprlqpurxc signed by Say Ravi at 10/08/2023 1:30 PM ORI32223-0Knmvypfvt encounter MgpsPG6572-31-17J50:30:43Telephone encounter NoteTXT1.2.840.779481.1.13.104.2.7. 2.456952|0127340843ZYUbmcattle for patient usft45626-5OqqbNKJXNQYAMJGZxbdnosef C-CDA narrative vtkb166185177MoNxiymv [address] GxvkLabiqktybDjfhzzqcrMBTS127541677 6CZHLYKPESQFMDZZAXXSEFB7418-71-41F6 3:30:431.2.840.165621.1.72.3.15|1.2 .840.003723.1.13.104.2.7.2.727879_1 [id number] Ravi Deal [facility] 2023-07-03 11:58:29 1672-33-35B19:58:29 Recent VisitsDate Type Provider Dept 02/03/23 Office Visit Laura Beltran MD [facility] 12/06/22 Office Visit Trena Wyatt PA [facility] 11/20/22 Office Visit Vaughn Tan FNP [facility] 09/25/22 Office Visit Laura Beltran MD [facility] 07/09/22 Office Visit Laura Beltran MD [facility] 06/04/22 Office Visit Laura Beltran MD [facility] Med Showing recent visits within past 540 days with a meds authorizing provider and meeting all other requirementsFuture AppointmentsNo visits were found meeting these conditions.Showing future appointments within next 150 days with a meds authorizing provider and meeting all other requirementsLast refill wasdextroamphetamine-amphetamine (ADDERALL) 30 mg tablet 60 tablet 0 06/09/2023 34581-4Hwwthuidw encounter VwfkIG8923-15-91S96:58:50Telephone encounter NoteTXT1.2.840.969017.1.13.104.2.7. 2.910266|5691497134FAKhacdapqk for patient aemv59325-7WmnzLJQIZJGECZ[address] StreetTXTX[address] 9GDHKXERQYRNJOAWYZPKTAF4661-21-02F8 1:58:501.2.840.360989.1.72.3.15|1.2 .840.549907.1.13.104.2.7.2.727879_1 [id number] [facility] 2023-07-03 11:50:58 0966-59-35C99:50:58 Anne Marie Durham is a 42 year old femalePt calling to have refill on medication and has 10 supplements left.dextroamphetamine-amphetamine (ADDERALL) 30 mg tabletPlease [facility] #[id number] - [place], [place] - [facility] [address] [facility] [employer] [address] [address]Rwzom: [phone] Yxnjslknttcbir signed by Yao Winston at 07/03/2023 11:54 AM MFF59349-6Bhfsuiupp encounter HnrpPL2464-95-34J93:54:26Telephone encounter NoteTXT1.2.840.550069.1.13.104.2.7. 2.212883|4643208752WYOuuyizvfb for patient zhiw84635-5AjazOTBZTNOQBF93 [address] StreetTXTX[address] 7OWZBNRBXSOBCDNRBNPFCWG2999-44-70L0 1:54:261.2.840.809761.1.72.3.15|1.2 .840.641785.1.13.104.2.7.2.727879_1 [id number] [facility] 2023-06-16 08:03:57 5227-46-34W09:03:57 Patient presented to clinic with c/o face [...] verbalized understanding.Sirena Crowe LVN 06/16/2023 8:08 AM 99838-8Gubwdvfoy encounter DrvlXH6611-81-29A87:08:53Telephone encounter NoteTXT1.2.840.493190.1.13.104.2.7. 2.400381|3834288906BAGxvretfpy for patient jrvs07089-3QkdsPR373235719Mjopolv M Fisher [address] EjtbGgiryxabmQdamipbfdBXDV449853510 2UQSWTRJNHEKWWJACKZGNBG8151-94-67D5 8:08:531.2.840.524507.1.72.3.15|1.2 .840.352069.1.13.104.2.7.2.727879_1 [id number] Sirena Crowe [facility] 2023-06-09 10:48:12 4682-32-84P66:48:12 Recent VisitsDate Type Provider Dept 02/03/23 Office [...] 30 mg tablet 60 tablet 0 05/05/2023 54329-9Wlmesphvd encounter DhapGE0365-39-55C62:48:36Telephone encounter NoteTXT1.2.840.079006.1.13.104.2.7. 2.605176|0721507596RJYiuqopxnu for patient abof00567-3SljnTSMRVRVRHI[address]TXTX775[address] 5XBNXXCICYRRGXTQAOATMTV2627-44-82B1 0:48:361.2.840.189208.1.72.3.15|1.2 .840.144238.1.13.104.2.7.2.727879_1 [id number] [facility] 2023-06-09 09:19:15 2410-13-79D77:19:15 Patient is requesting a refill.[facility] #[id number] [facility] OHOGAMIUTMCCULLOUGH-[facility]IAL HOSPITALPhone: [address]-5Talczwgjq encounter AyqhTT3886-12-40Q14:19:48Telephone encounter NoteTXT1.2.840.509822.1.13.104.2.7. 2.919492|6633161387YSXtjpwqmny for patient xhiv17362-3UrkbBZDMFADKJE38 [address] StreetTXTX775557755 9MNMPGZZNQMDLYSOPWITNOV9272-09-91R9 9:19:481.2.840.225151.1.72.3.15|1.2 .840.146217.1.13.104.2.7.2.727879_1 [id number] [facility]"
--- NOTE | 2024-04-02 02:51 | EDPHYS ---
Physician Documentation [facility] Name: Anne Marie Cruz Age: 43 yrs Sex: Female : 1980 Arrival Date: 04/02/2024 Time: 02:25 Bed IW1 Private MD: ED Physician Reed Perea HPI: 04/02 02:37 This 43 yrs old Female presents to ER via Unassigned with complaints of sp4 Allergy Symptoms, Sore Throat. 04:38 43-year-old female presents with complaint of diffuse redness itching dermatitis sp4 secondary to exposure to poison rita and also complaining of sore throat.. Historical: - Allergies: 02:43 Latex; jb4 - PMHx: 02:43 Anxiety; Bipolar disorder; Chronic pain; jb4 - PSHx: 02:43 hernia repair; jb4 - Immunization history:: Adult Immunizations unknown. - Infectious Disease History:: Denies. - Social history:: Smoking status: Patient reports the use of cigarette tobacco products, smokes one pack cigarettes per day. - Family history:: not pertinent. ROS: 04:38 Constitutional: Negative for fever, chills, and weight loss, positive for skin redness sp4 and itching, positive for sore throat. 04:38 All other systems are negative, Exam: 04:38 Constitutional: This is a well developed, well nourished patient who is awake, alert, sp4 and in no acute distress. Head/Face: Normocephalic, atraumatic. Eyes: Pupils equal round and reactive to light, extra-ocular motions intact. Lids and lashes normal. Conjunctiva and sclera are not injected. Cornea within normal limits. Periorbital areas with no swelling, redness, or edema. ENT: Nares patent. No nasal discharge, no septal abnormalities noted. Tympanic membranes are normal and external auditory canals are clear. Oropharynx with no redness, swelling, or masses, exudates, or evidence of obstruction, uvula midline. Mucous membranes moist. Neck: Trachea midline, no thyromegaly or masses palpated, and no cervical lymphadenopathy. Supple, full range of motion without nuchal rigidity, or vertebral point tenderness. Chest/axilla: Normal chest wall appearance and motion. Nontender with no deformity. No lesions are appreciated. Cardiovascular: Regular rate and rhythm with a normal S1 and S2. No gallops, murmurs, or rubs. Normal PMI, no JVD. No pulse deficits. Respiratory: Lungs have equal breath sounds bilaterally, clear to auscultation and percussion. No rales, rhonchi or wheezes noted. No increased work of breathing, no retractions or nasal flaring. Abdomen/GI: Soft, with normal bowel sounds. No distension or tympany. No guarding or rebound. No evidence of tenderness throughout. Back: No spinal tenderness. No costovertebral tenderness. Skin: Warm, dry with normal turgor. There is some mild to moderate sunburn associated with small areas of skin dermatitis. MS/ Extremity: Pulses equal, no cyanosis. Neurovascular intact. Full, normal range of motion. Neuro: Awake and alert, GCS 15, oriented to person, place, time, and situation. Cranial nerves II-XII grossly intact. Motor strength 5/5 in all extremities. Sensory grossly intact. Psych: Awake, alert, with orientation to person, place and time. Behavior, mood, and affect are within normal limits Vital Signs: 02:40 BP 127 / 83; Pulse 102; Resp 19; Temp 98.2; Pulse Ox 100% on R/A; Weight 68.04 kg (R); jb4 Height 5 ft. 4 in. (R); 02:40 Body Mass Index 25.75 (68.04 kg, 162.56 cm) jb4 Katy Coma Score: 04:38 Eye Response: spontaneous(4). Motor Response: obeys commands(6). Verbal Response: sp4 oriented(5). Total: 15. MDM: 02:46 Patient medically screened. sp4 04:40 Differential diagnosis: Allergic rhinitis, bronchitis, influenza, peritonsillar abscess sp4 pharyngitis. Data reviewed: vital signs, nurses notes. ED course: Patient stable for discharge home after medications administered in ER. Will prescribe prednisone for the next 5 days for presumed poison rita dermatitis.. Administered Medications: 03:00 Drug: predniSONE PO 60 mg PO once Route: PO; jb4 03:01 Follow up: Response: Medication administered at discharge. jb4 03:00 Drug: diphenhydrAMINE PO 25 mg PO once Route: PO; jb4 03:01 Follow up: Response: Medication administered at discharge. jb4 03:00 Drug: Ibuprofen PO 800 mg PO once Route: PO; jb4 03:01 Follow up: Response: Medication administered at discharge. jb4 03:00 Drug: Acetaminophen PO 1000 mg PO once Route: PO; jb4 03:01 Follow up: Response: Medication administered at discharge. jb4 Disposition Summary: 04/02/24 02:50 Discharge Ordered Notes: Location: Home sp4 Problem: new sp4 Symptoms: have improved sp4 Condition: Stable sp4 Diagnosis - Dermatitis, unspecified sp4 - Acute contact dermatitis sp4 Followup: sp4 - With: Private Physician - When: 7 - 10 days - Reason: Recheck today's complaints Discharge Instructions: - Discharge Summary Sheet sp4 - Rash, Adult sp4 Forms: - Patient Portal Instructions sp4 Prescriptions: - Prednisone 20 mg Oral Tablet - take 2 tablets ORAL route once daily for 5 days; 10 tablet; Refills: 0, Product sp4 Selection Permitted Signatures: Kel Sierra RN RN jb4 Reed Perea MD MD sp4
--- NOTE | 2024-04-02 02:51 | ER ---
Nurse's Notes [facility] Name: Anne Marie Cruz Age: 43 yrs Sex: Female : 1980 Arrival Date: 04/02/2024 Time: 02:25 Bed IW1 Private MD: Diagnosis: Dermatitis, unspecified;Acute contact dermatitis Presentation: 04/02 02:40 Chief complaint: Patient states: I have a sore on my middle left finger. I think I was jb4 exposed to poison NOHELIA. my arms are itchy. My eyes and mouth are dry. Coronavirus screen: At this time, the client does not indicate any symptoms associated with coronavirus-19. Ebola Screen: No symptoms or risks identified at this time. Onset: The symptoms/episode began/occurred gradually. Anaphylaxis evaluation, no signs or symptoms of anaphylaxis were noted. Initial Sepsis Screen: Does the patient meet any 2 criteria? No. Patient's initial sepsis screen is negative. Does the patient have a suspected source of infection? No. Patient's initial sepsis screen is negative. Risk Assessment: Do you want to hurt yourself or someone else? Patient reports no desire to harm self or others. Onset of symptoms was April 02, 2024. Transition of care: patient was not received from another setting of care. 02:40 Method Of Arrival: Ambulatory jb4 02:40 Acuity: PARISH 5 jb4 Historical: - Allergies: 02:43 Latex; jb4 - PMHx: 02:43 Anxiety; Bipolar disorder; Chronic pain; jb4 - PSHx: 02:43 hernia repair; jb4 - Immunization history:: Adult Immunizations unknown. - Infectious Disease History:: Denies. - Social history:: Smoking status: Patient reports the use of cigarette tobacco products, smokes one pack cigarettes per day. - Family history:: not pertinent. Screenin:43 [facility] ED Fall Risk Assessment (Adult) History of falling in the last 3 months, jb4 including since admission No falls in past 3 months (0 pts) Confusion or Disorientation No (0 pts) Intoxicated or Sedated No (0 pts) Impaired Gait No (0 pts) Mobility Assist Device Used No (0 pt) Altered Elimination No (0 pt) Score/Fall Risk Level 0 - 2 = Low Risk Oriented to surroundings, Maintained a safe environment. Abuse screen: Denies threats or abuse. Nutritional screening: No deficits noted. Tuberculosis screening: No symptoms or risk factors identified. Assessment: 02:43 General: Appears in no apparent distress. comfortable, Behavior is calm, cooperative, jb4 appropriate for age. Pain: Complains of pain in sore throat Pain does not radiate. Pain currently is 6 out of 10 on a pain scale. Neuro: Level of Consciousness is awake, alert, obeys commands, Oriented to person, place, time, situation. Cardiovascular: Patient's skin is warm and dry. Respiratory: Airway is patent Respiratory effort is even, unlabored, Respiratory pattern is regular, symmetrical. GI: No signs and/or symptoms were reported involving the gastrointestinal system. : No signs and/or symptoms were reported regarding the genitourinary system. EENT: No signs and/or symptoms were reported regarding the EENT system. Derm: Skin is intact, Skin is pink, warm \T\ dry. Musculoskeletal: Circulation, motion, and sensation intact. Range of motion: intact in all extremities. Vital Signs: 02:40 BP 127 / 83; Pulse 102; Resp 19; Temp 98.2; Pulse Ox 100% on R/A; Weight 68.04 kg (R); jb4 Height 5 ft. 4 in. (R); 02:40 Body Mass Index 25.75 (68.04 kg, 162.56 cm) jb4 Hasty Coma Score: 04:38 Eye Response: spontaneous(4). Motor Response: obeys commands(6). Verbal Response: sp4 oriented(5). Total: 15. ED Course: 02:31 Patient arrived in ED. gm2 02:37 Reed Perea MD is Attending Physician. sp4 02:43 Triage completed. jb4 02:43 Arm band placed on right wrist. jb4 02:43 Patient has correct armband on for positive identification. Bed in low position. Call jb4 light in reach. Side rails up X 1. Provided Education on: PLan of care. 03:01 No provider procedures requiring assistance completed. Patient did not have IV access jb4 during this emergency room visit. Administered Medications: 03:00 Drug: predniSONE PO 60 mg PO once Route: PO; jb4 03:01 Follow up: Response: Medication administered at discharge. jb4 03:00 Drug: diphenhydrAMINE PO 25 mg PO once Route: PO; jb4 03:01 Follow up: Response: Medication administered at discharge. jb4 03:00 Drug: Ibuprofen PO 800 mg PO once Route: PO; jb4 03:01 Follow up: Response: Medication administered at discharge. jb4 03:00 Drug: Acetaminophen PO 1000 mg PO once Route: PO; jb4 03:01 Follow up: Response: Medication administered at discharge. jb4 Medication: 02:43 VIS not applicable for this client. jb4 Outcome: 02:50 Discharge ordered by . sp4 03:01 Discharged to home ambulatory, jb4 03:01 Condition: stable 03:01 Discharge instructions given to patient, Instructed on discharge instructions, follow up and referral plans. medication usage, Demonstrated understanding of instructions, follow-up care, medications, Prescriptions given X 1, 03:02 Patient left the ED. jb4 Signatures: Kel Sierra, RN RN jb4 Reed Perea MD MD sp4 Irish Ramey 2
[2024-04-02] MEDS ORDERED: predniSONE 20 MG TAB ONE (02:52)
[2024-04-02] MEDS ORDERED: ACETAMINOPHEN 500 MG TAB ONE (02:52)
[2024-04-02] MEDS ORDERED: DIPHENHYDRAMINE 25 MG TAB/CAP ONE ×2 (02:53→02:54)
[2024-04-02] MEDS ORDERED: IBUPROFEN 400 MG TAB ONE (02:53)
[2024-04-02 03:16] VITALS: BP 127/83; TEMP 98.2; O2SAT 100
== END 2024-04-02 03:02 | disposition home or self-care (01) ==
LOC: ER 02:25
DX: L23.9 Allergic contact dermatitis, unspecified cause (principal); R07.0 Pain in throat
CPT/HCPCS: 99283; J7512

== ENCOUNTER 2024-06-23 15:31 | Emergency (ER) | payer OTHER ==
--- OUTSIDE RECORDS SUMMARY | 2024-06-23 15:37 | XMS REPORT | Continuity of Care Document ---
Author Name Unknown Address [address] [place] [address] [facility] Address [address] [place] [address] Care Team Providers Care Registered Nurse First Assistant Name Role Phone Roseanne Otto TAYLOR Primary Care Physician LAURA BELTRAN Attending Clinician Unadede Beltran MD, Laura Mireles Attending Clinician + [phone] Laura Beltran MD Attending Clinician ENEIDA CANNON Attending Clinician Unavail able Vivienne Campuzano Attending Clinician [phone] Unknown, Attending Attending Clinician Unavailab VIVIENNE Koo Attending Clinician Unavailable Doctor Unassigned, [place] Attending Clinician U navailable GABY PALMA Attending Clinician Unavailable GABY PALMA Attending Clinician Unavailable MAIKEL SIGALA Attending Clinician Unavailable MC STRONG Attending Clinician Unavailable Mc Strong MD Attending Clinician [phone] Feroz Barakat MD Attending Clinician [phone] FEROZ BARAKAT Attending Clinician Unavailab le ANDRIY WOOTEN Attending Clinician Unavailable Nurse, [facility] Attending Clinician Un available Wooten LUMBER YARD WORKER, Reenu Attending Clinician [phone] UNKNOWN, ATTENDING Attending Clinician Unavailab jackie Mendez, [facility] Attending Clinician Unavailable FLOR INFANTE Attending Clinician Unavailable Naresh PARKER, Flor Attending Clinician [phone] Trena Fairbanks Attending Clinician [phone] STU BORGES Attending Clinician Unavailab TRENA Rinaldi Attending Clinician Unavailable VAUGHN TAN Attending Clinician Unavailable Britney LUMBER YARD WORKER, Vaughn Attending Clinician [phone] ARNEL ALARCON Attending Clinician Unavailable MILA KEYS Attending Clinician Unavailable Ludmila LUMBER YARD WORKER, Mila Attending Clinician [phone] MUNDO PEDROZA Attending Clinician Unavailable Yovany LUMBER YARD WORKER, Mundo Attending Clinician [phone] Luis Fernando THORNTON, Lora Attending Clinician Unavailable Marc Khoury MD Attending Clinician [phone] Marilyn LUMBER YARD WORKER, Nayla Larios Attending Clinician [phone] JORDAN HALEY Attending Clinician UnavailRoxy ANGELP, Jhoana Wang Attending Clinician [phone] JHOANA ARNOLD Attending Clinician Unavailalthea Luke, [facility] Attending Clinician Unavailwen Seaman MD, Cristal Seth Attending Clinician [phone] CRISTAL SEAMAN Attending Clinician Unava KELSI Borrego Attending Clinician UnavailKelsi Cutler DO Attending Clinician [phone] JHOANA ARNOLD Admitting Clinician Unavailalthea moore Payers Payer Name Policy Type Policy Number Effective Date Expirati on Date Source [employer] MEDICAID [id number] 2017 00:00:00 [facility] [id number] 0224-12-17 00:00:00 [place] [id number] 2017 00:00:00 Problems Condition Name Condition Details Condition Category Status Onset Date Resolution Date Last Treatment Date Treating Clinician Comments Source Cellulitis of left lower extremity Cellulitis of left lower extremity Disease Active 11-20 00:00: 00 [facility] acute hospital Abscess Abscess Disease Active 2- 00:00: 00 [facility] Skin sore Skin sore Disease Active 2- 00:00: 00 [facility] Follow-up exam Follow-up exam Disease Active 2- 00:00: 00 [facility] Bipolar 1 disorder, manic, mild Bipolar 1 disorder, manic, mild Disease Active 9- 00:00: 00 [facility] Attention deficit disorder (ADD) in adult Attention deficit disorder (ADD) in adult Disease Active 8- 00:00: 00 [facility] Allergies, Adverse Reactions, Alerts Allergy Name Allergy Type Status Severity Reaction(s) Onset Date Inactive Date Treating Clinician Comments Source NO KNOWN ALLERGIE S Drug Class Active [facility] acute hospital Social History Social Habit Start Date Stop Date Quantity Comments Source [facility] History of Social function 2024-06-14 00:00:00 2024-06-14 00:00:00 [facility] Alcoholic beverage intake 2024-06-14 00:00:00 2024-06-14 00:00:00 Ex-drinker (finding) [facility] Tobacco use and exposure 2024-06-14 00:00:00 2024-06-14 00:00:00 Smokeless tobacco non-user [facility] Alcohol intake 2024-01-07 00:00:00 2024-01-07 00:00:00 Ex-drinker (finding) [facility] Exposure to SARS-CoV-2 (event) 2023-01-28 00:00:00 2023-02-07 09:18:00 Not sure [facility] History of tobacco use 2010-03-28 00:00:00 Cigarette Smoker [facility] Sex assigned at 1980 00:00:00 1980 00:00:00 [facility] Smoking Status Start Date Stop Date Source Smokes tobacco daily 2024-06-14 00:00:00 [facility] Ex-smoker 2022-07-09 00:00:00 2022-07-09 00:00:00 [facility] Medications Ordered Medication Name Filled Medication Name Start Date Stop Date Current Medication? Ordering Clinician Indication Dosage Frequency Signature (SIG) Comments Components Source dextroamphe tamine-amph etamine (ADDERALL) 30 mg tablet 8-26 00:00: 00 Yes [id number] 30mg Take 1 tablet by mouth in the morning and 1 tablet in the evening. [facility] acute hospital dextroamphe tamine-amph etamine (ADDERALL) 30 mg tablet 7-24 00:00: 00 06-14 00:00 :00 No [id number] 30mg Take 1 tablet by mouth in the morning and 1 tablet in the evening. [facility] dextroamphe tamine-amph etamine (ADDERALL) 30 mg tablet 6-27 00:00: 00 05-12 00:00 :00 No [id number] 30mg Take 1 tablet by mouth in the morning and 1 tablet in the evening. [facility] dextroamphe tamine-amph etamine (ADDERALL) 30 mg tablet 5-20 00:00: 00 04-14 00:00 :00 No [id number] 30mg Take 1 tablet by mouth in the morning and 1 tablet in the evening. [facility] dextroamphe tamine-amph etamine (ADDERALL) 30 mg tablet 4-24 00:00: 00 03-08 00:00 :00 No [id number] 30mg Take 1 tablet by mouth in the morning and 1 tablet in the evening. [facility] dextroamphe tamine-amph etamine (ADDERALL) 30 mg tablet 0 3-18 00:00: 00 Yes [id number] 30mg Take 1 tablet by mouth in the morning and 1 tablet in the evening. [facility] ketorolac (TORADOL) injection 30 mg 3-17 21:45: 00 01-03 21:11 :00 No [id number] 30mg [facility] predniSONE 20 mg tablet 3-17 00:00: 00 01-06 00:00 :00 No [id number] 40mg Take 2 tablets by mouth in the morning for 5 days. [facility] hydrocortis one 2.5 % cream 01-03 00:00: 00 01-06 00:00 :00 No [id number] Apply to area(s) 2 (two) times daily for 7 days. [facility] dextroamphe tamine-amph etamine (ADDERALL) 20 mg tablet 12-11 00:00: 00 03-08 00:00 :00 No [id number] 20mg Take 1 tablet by mouth in the morning and 1 tablet at noon and 1 tablet in the evening. [facility] dextroamphe tamine-amph etamine (ADDERALL) 30 mg tablet 12-11 00:00: 00 12-31 00:00 :00 No [id number] 30mg Take 1 tablet by mouth in the morning and 1 tablet in the evening. [facility] dextroamphe tamine-amph etamine (ADDERALL) 30 mg tablet 12-09 00:00: 00 Yes [id number] 30mg Take 1 tablet by mouth in the morning and 1 tablet in the evening. [facility] dextroamphe tamine-amph etamine (ADDERALL) 30 mg tablet 12-08 00:00: 00 Yes [id number] 30mg Take 1 tablet by mouth in the morning and 1 tablet in the evening. [facility] dextroamphe tamine-amph etamine (ADDERALL) 30 mg tablet 11-10 00:00: 00 12-08 00:00 :00 No [id number] 30mg Take 1 tablet by mouth in the morning and 1 tablet in the evening. [facility] ketorolac (TORADOL) injection 30 mg 2022-10 23:45: 00 10-16 23:05 :00 No [id number] 30mg [facility] ibuprofen 800 mg tablet 2022-10 00:00: 00 Yes [id number] 800mg Take 1 tablet by mouth every 8 (eight) hours as needed (With meals). [facility] albuterol 90 mcg/actuati on inhaler 2022-10 00:00: 00 Yes [id number] 2{puff} Inhale 2 Puffs every 6 (six) hours as needed for Wheezing or Shortness of Breath. [facility] fluticasone propionate 50 mcg/actuati on nasal spray 2022-10 00:00: 00 Yes [id number] Use two sprays in each nostril daily for a week, then use one spray in each nostril daily [facility] promethazin e-dextromet horphan 6.25-15 mg/5 mL syrup 2022-10 00:00: 00 06-14 00:00 :00 No [id number] 5mL Take 5 mL by mouth 4 (four) times daily as needed for Cough. [facility] acute hospital nirmatrelvi r-ritonavir 300 mg (150 mg x 2)-100 mg tablet 2022-10 00:00: 00 11-10 00:00 :00 No [id number] 3{tbl} Take 3 tablets by mouth in the morning and 3 tablets in the evening. [facility] dextroamphe tamine-amph etamine (ADDERALL) 20 mg tablet 2022-10 00:00: 00 11-10 00:00 :00 No [id number] 20mg Take 1 tablet by mouth in the morning and 1 tablet at noon and 1 tablet in the evening. [facility] dextroamphe tamine-amph etamine (ADDERALL) 30 mg tablet 2022-10 00:00: 00 Yes [id number] 30mg Take 1 tablet by mouth in the morning and 1 tablet in the evening. [facility] dextroamphe tamine-amph etamine (ADDERALL) 30 mg tablet 2022-10 00:00: 00 10-06 00:00 :00 No [id number] 30mg Take 1 tablet by mouth in the morning and 1 tablet in the evening. [facility] dextroamphe tamine-amph etamine (ADDERALL) 30 mg tablet 2022-10 00:00: 00 Yes [id number] 30mg Take 1 tablet by mouth in the morning and 1 tablet in the evening. [facility] dextroamphe tamine-amph etamine (ADDERALL) 30 mg tablet 2022-10 00:00: 00 09-10 00:00 :00 No [id number] 30mg Take 1 tablet by mouth in the morning and 1 tablet in the evening. [facility] dextroamphe tamine-amph etamine (ADDERALL) 30 mg tablet 2022-10 00:00: 00 Yes [id number] 30mg Take 1 tablet by mouth in the morning and 1 tablet in the evening. [facility] dextroamphe tamine-amph etamine (ADDERALL) 30 mg tablet 2022-10 00:00: 00 09-03 00:00 :00 No [id number] 30mg Take 1 tablet by mouth in the morning and 1 tablet in the evening. [facility] VENTOLIN HFA 90 mcg/actuati on inhaler 2022-10 00:00: 00 08-11 00:00 :00 No [id number] INHALE 2 PUFFS BY MOUTH EVERY 6 HOURS NEEDED FOR WHEEZING [facility] acute hospital ketorolac (TORADOL) injection 30 mg 07-17 02:30: 00 07-17 01:48 :00 No [id number] 30mg [facility] traMADoL 50 mg tablet 07-17 00:00: 00 Yes 50mg Take 1 tablet by mouth in the morning and 1 tablet in the evening. [facility] hydrOXYzine 50 mg tablet 07-16 00:00: 00 08-11 00:00 :00 No [id number] 50mg Take 1 tablet by mouth in the morning and 1 tablet at noon and 1 tablet in the evening. [facility] diphenhydrA MINE (BENADRYL) tablet 25 mg 07-15 09:45: 00 07-15 09:40 :00 No 25mg 25 mg, Oral, ONCE, 1 dose, On Fri07/15/23 at 0445, CAMILA [facility] acute hospital dextroamphe tamine-amph etamine (ADDERALL) 30 mg tablet 07-07 00:00: 00 08-11 00:00 :00 No [id number] 30mg Take 1 tablet by mouth in the morning and 1 tablet in the evening. [facility] VENTOLIN HFA 90 mcg/actuati on inhaler 07-03 00:00: 00 07-28 00:00 :00 No [id number] INHALE 2 PUFFS BY MOUTH EVERY 6 HOURS NEEDED FOR WHEEZING [facility] hospital dextroamphe tamine-amph etamine (ADDERALL) 30 mg tablet 06-09 00:00: 00 07-07 00:00 :00 No [id number] 30mg Take 1 tablet by mouth in the morning and 1 tablet in the evening. [facility] VENTOLIN HFA 90 mcg/actuati on inhaler 06-06 00:00: 00 07-03 00:00 :00 No [id number] INHALE 2 PUFFS BY MOUTH EVERY 6 HOURS NEEDED FOR WHEEZING [facility] VENTOLIN HFA 90 mcg/actuati on inhaler 05-10 00:00: 00 06-06 00:00 :00 No [id number] INHALE 2 PUFFS BY MOUTH EVERY 6 HOURS NEEDED FOR WHEEZING [facility] acute hospital dextroamphe tamine-amph etamine (ADDERALL) 30 mg tablet 17 00:00: 00 06-09 00:00 :00 No [id number] 30mg Take 1 tablet by mouth in the morning and 1 tablet in the evening. [facility] acute hospital VENTOLIN HFA 90 mcg/actuati on inhaler 620 00:00: 00 05-10 00:00 :00 No [id number] INHALE 2 PUFFS BY MOUTH EVERY 6 HOURS NEEDED FOR WHEEZING [facility] hospital dextroamphe tamine-amph etamine (ADDERALL) 30 mg tablet 6-15 00:00: 00 05-05 00:00 :00 No [id number] 30mg Take 1 tablet by mouth in the morning and 1 tablet in the evening. [facility] dextroamphe tamine-amph etamine (ADDERALL) 30 mg tablet 5- 00:00: 00 04-03 00:00 :00 No [id number] 30mg Take 1 tablet by mouth in the morning and 1 tablet in the evening. [facility] VENTOLIN HFA 90 mcg/actuati on inhaler 20 00:00: 00 04-08 00:00 :00 No [id number] INHALE 2 PUFFS BY MOUTH EVERY 6 HOURS NEEDED FOR WHEEZING [facility] acute hospital ketorolac (TORADOL) injection 30 mg 02-07 15:45: 00 02-07 14:58 :00 No [id number] 30mg [facility] promethazin e-dextromet horphan 6.25-15 mg/5 mL syrup - 00:00: 00 02-18 04:59 :00 No [id number] 5mL Take 5 mL by mouth 4 (four) times daily for 10 days. [facility] acute hospital oseltamivir (TAMIFLU) 75 mg capsule 02-07 00:00: 00 02-13 04:59 :00 No [id number] 75mg Take 1 capsule by mouth in the morning and 1 capsule in the evening. Do all this for 5 days. [facility] acute [facility] traZODone 100 mg tablet -17 10:06: 00 02-03 00:00 :00 No 100mg Take 1 tablet by mouth at bedtime. [facility] dextroamphe tamine-amph etamine (ADDERALL) 30 mg tablet 17 00:00: 00 03-10 00:00 :00 No [id number] 30mg Take 1 tablet by mouth in the morning and 1 tablet in the evening. [facility] dextroamphe tamine-amph etamine (ADDERALL) 30 mg tablet 320 00:00: 00 02-03 00:00 :00 No [id number] 30mg Take 1 tablet by mouth in the morning and 1 tablet in the evening. [facility] promethazin e-dextromet horphan 6.25-15 mg/5 mL syrup 18 00:00: 00 01-15 04:59 :00 No [id number] 5mL Take 5 mL by mouth 4 (four) times daily for 10 days. [facility] traZODone 100 mg tablet 01-03 17:01: 55 Yes 100mg Take 1 tablet by mouth at bedtime. [facility] triamcinolo ne acetonide 0.1 % cream 01-03 00:00: 00 08-11 00:00 :00 No [id number] Apply to area(s) 2 (two) times daily. [facility] albuterol 90 mcg/actuati on inhaler 01-03 00:00: 00 06-06 00:00 :00 No [id number] 2{puff} Inhale 2 Puffs every 6 (six) hours as needed for Wheezing. [facility] benzonatate 100 mg capsule 01-03 00:00: 00 02-03 00:00 :00 No [id number] 200mg Take 2 capsules by mouth every 8 (eight) hours as needed for Cough. [facility] predniSONE 20 mg tablet 17 00:00: 00 01-09 04:59 :00 No [id number] 20mg Take 1 tablet by mouth in the morning for 5 days. [facility] albuterol (VENTOLIN HFA) 90 mcg/actuati on inhaler 3-14 00:00: 00 03-08 23:29 :11 No [id number] INHALE 2 PUFFS BY MOUTH EVERY 6 HOURS NEEDED FOR WHEEZING [facility] dextroamphe tamine-amph etamine (ADDERALL) 30 mg tablet 12-09 00:00: 00 01-06 00:00 :00 No [id number] 30mg Take 1 tablet by mouth in the morning and 1 tablet in the evening. [facility] azelastine 137 mcg (0.1 %) nasal spray 12-06 00:00: 00 08-11 00:00 :00 No [id number] 1{spray } Use 1 [place] in each nostril in the morning and 1 [place] in the evening. Use in each nostril as directed [facility] hospital benzonatate (TESSALON PERLES) 100 mg capsule 12-06 00:00: 00 02-03 00:00 :00 No [id number] 100mg Take 1 capsule by mouth every 8 (eight) hours as needed for Cough. [facility] acute [facility] methylPREDN ISolone (MEDROL, ADAM,) 4 mg tablets 12-06 00:00: 00 02-03 00:00 :00 No [id number] Take by mouth SEE-INSTRU CTIONS. follow package directions [facility] albuterol 90 mcg/actuati on inhaler 12-06 00:00: 00 12-31 00:00 :00 No [id number] 2{puff} Inhale 2 Puffs every 6 (six) hours as needed for Wheezing. [facility] triamcinolo ne acetonide 0.1 % cream 2 00:00: 00 01-03 00:00 :00 No [id number] Apply to area(s) 2 (two) times daily. [facility] acute [facility] sulfamethox azole-trime thoprim 800-160 mg per tablet 1-31 00:00: 00 12-06 00:00 :00 No [facility] hydrOXYzine 25 mg tablet - 00:00: 00 02-03 00:00 :00 No TAKE 1-2 TABLET BY MOUTH FOR SLEEP [facility] acute hospital mupirocin 2 % ointment 1- 00:00: 00 02-03 00:00 :00 No APPLY SPARINGLY TOPICALLY TO THE AFFECTED AREA TWICE DAILY [facility] acute hospital SENNA 8.6 mg tablet - 00:00: 00 02-03 00:00 :00 No TAKE 2-4 TABLETS BY MOUTH DIRECTED NEEDED. DO NOT EXCEED 4 TABLETS IN 24 HOURS [facility] predniSONE 20 mg tablet 11-13 00:00: 00 12-06 00:00 :00 No 20mg Take 20 mg by mouth every morning. [facility] omeprazole 40 mg capsule 11-11 00:00: 00 02-03 00:00 :00 No TAKE 1 CAPSULE BY MOUTH IN THE MORNING [facility] acute hospital FAMOTIDINE 11-05 00:00: 00 No LAMOTRIGINE 10-31 00:00: 00 No dextroamphe tamine-amph etamine (ADDERALL) 30 mg tablet 10-30 00:00: 00 12-09 00:00 :00 No [id number] 30mg Take 1 tablet by mouth in the morning and 1 tablet in the evening. [facility] ACYCLOVIR 2021-10 00:00: 00 No acyclovir 400 mg tablet 2021-10 00:00: 00 02-03 00:00 :00 No 400mg Take 1 tablet by mouth every 8 (eight) hours. [facility] TAKE 1-2 TABLET(S) FOR SLEEP 2021-10- 00:00: 00 No 25 TAKE 1 TABLET DAILY. 2021-10 00:00: 00 No 100 dextroamphe tamine-amph etamine (ADDERALL) 30 mg tablet 2021-10- 00:00: 00 Yes [id number] 30mg Take 1 tablet by mouth in the morning and 1 tablet in the evening. [facility] hospital AMPHET/DEXT R 30MG Tablets 2021-10- 00:00: 00 No FAMOTIDINE 2021-10 2- 00:00: 00 No OMEPRAZOLE 2021-10 2- 00:00: 00 No BUSPIRONE 2021-10 2-09 00:00: 00 No TRAMADOL HCL 2021-10 2-08 00:00: 00 No dextroamphe tamine-amph etamine (ADDERALL) 30 mg tablet 2021-10 2- 00:00: 00 10-10 00:00 :00 No [id number] 30mg Take 1 tablet by mouth in the morning and 1 tablet in the evening. [facility] TAKE 1 TABLET DAILY. 2021-10 00:00: 00 [...] 2021-10 00:00: 00 09-25 00:00 :00 No [id number] 20mg Take 1 tablet by mouth in the morning and 1 tablet in the evening. [facility] TRAZODONE 2021-10 00:00: 00 No TRAZODONE 2021-1028 00:00: 00 No dextroamphe tamine-amph etamine (ADDERALL) 20 mg tablet 2021-10 024 00:00: 00 Yes [id number] 20mg Take 1 tablet by mouth in the morning and 1 tablet in the evening. [facility] diazePAM (VALIUM) injection 2 mg 2021-10 020 02:15: 00 08-08 02:20 :00 No 2mg 2 mg, Slow IV Push, ONCE, 1 dose, On Fri08/07/22 at 2115, STAT [facility] acute [facility] diazePAM (VALIUM) injection 2 mg 2021-10 020 01:45: 00 08-08 01:43 :00 No 2mg 2 mg, Slow IV Push, ONCE, 1 dose, On Fri08/07/22 at 2045, STAT [facility] NaCl 0.9% (NS) bolus infusion 1,000 mL 2021-10 22:00: 00 08-08 00:30 :00 No 1000mL at 999 mL/hr, 1,000 mL, IV Infusion, ONCE, 1 dose, On Fri08/07/22 at 1700, CAMILA [facility] diazePAM (VALIUM) tablet 5 mg 2021-10 22:00: 00 08-07 21:48 :00 No 5mg 5 mg, Oral, ONCE, 1 dose, [facility]08/07/22 [facility] 1700[facility] 250MG 07-10 00:00: 00 No METRONIDAZO L TAB 500MG 07-10 00:00: 00 No traZODone 100 mg tablet 07-09 09:29: 11 Yes 100mg Take 100 mg by mouth at bedtime. [facility] acute [facility] clonazePAM 0.5 mg tablet 07-09 09:29: 09 07-09 00:00 :00 No .5mg Take 0.5 mg by mouth at bedtime. [facility] OXcarbazepi ne 300 mg tablet 07-09 09:28: 57 07-09 00:00 :00 No 300mg Take 300 mg by mouth at bedtime. [facility] amoxicillin -clavulanat e (AUGMENTIN) 875-125 mg per tablet 07-09 09:28: 22 07-09 00:00 :00 No 1{tbl} Take 1 tablet by mouth 2 (two) times daily. [facility] dextroamphe tamine-amph etamine (ADDERALL) 20 mg tablet 07-09 00:00: 00 08-12 00:00 :00 No [id number] 20mg Take 1 tablet by mouth in the morning and 1 tablet in the evening. [facility] TAKE 1 TABLET BY MOUTH ONCE DAILY 06-05 00:00: 00 No 10 METRONIDAZO L TAB 500MG 06-05 00:00: 00 No 500 AZITHROMYCI N TAB 250MG 06-05 00:00: 00 No 250 clonazePAM 0.5 mg tablet 06-04 13:20: 16 Yes .5mg Take 0.5 mg by mouth at bedtime. [facility] traZODone 50 mg tablet 06-04 13:19: 27 06-04 00:00 :00 No 50mg Take 50 mg by mouth at bedtime. [facility] lithium carbonate 300 mg tablet 06-04 13:17: 48 06-04 00:00 :00 No 900mg Take 900 mg by mouth at bedtime. [facility] dextroamphe tamine-amph etamine (ADDERALL) 20 mg tablet 06-04 00:00: 00 07-09 00:00 :00 No [id number] 20mg Take 1 tablet by mouth in the morning and 1 tablet in the evening. [facility] TAKE 1 TABLET BY MOUTH TWICE DAILY 04-30 00:00: 00 No 20 &lt 0 12 00:00: 00 No 100 benzonatate 100 mg capsule 04-28 00:00: 00 06-04 00:00 :00 No [id number] 100mg Take 1 capsule by mouth 3 (three) times daily as needed for Cough. [facility] acute hospital Lamictal 25 mg tablet 04-18 00:00: 00 No 2mg trazodone 50 mg tablet 04-18 00:00: 00 No 1mg &lt 0 30 00:00: 00 No Dose Unknown 04-18 00:00: 00 No TAKE 1 TABLET BY MOUTH ONCE DAILY 04-18 00:00: 00 No lamoTRIgine 25 mg tablet 04-18 00:00: 00 02-03 00:00 :00 No 50mg Take 2 tablets by mouth in the morning. [facility] acute hospital Dose Unknown 5-31 00:00: 00 No Dose Unknown 0 3-21 00:00: 00 No Dose Unknown 0 3-21 00:00: 00 No Dose Unknown 0 3-21 00:00: 00 No Dose Unknown 0 3-21 00:00: 00 No Dose Unknown 0 3-14 [...] tablet by mouth 2 (two) times daily. [facility] OXcarbazepi ne 300 mg tablet 07-18 15:10: 21 Yes 300mg Take 300 mg by mouth at bedtime. [facility] Lamictal 25 mg tablet 07-10 00:00: 00 No 1mg trazodone 50 mg tablet 07-10 00:00: 00 No 1mg Abilify 30 mg tablet 06-20 00:00: 00 No 1mg oxcarbazepi ne 600 mg tablet 06-20 00:00: 00 No 2mg lithium carbonate 300 mg capsule 06-20 00:00: 00 No 3mg benzonatate 100 mg capsule 05-05 00:00: 00 07-09 00:00 :00 No [id number] 100mg Take 1 capsule by mouth 3 (three) times daily as needed for Cough. [facility] acute hospital Lamictal 25 mg tablet - 00:00: 00 No 1mg hydroxyzine HCl 25 mg tablet 04-27 00:00: 00 No 1mg Lamictal 25 mg tablet 6- 00:00: 00 No 1mg hydroxyzine HCl 25 mg tablet 6 00:00: 00 No 1mg pantoprazol e 40 mg EC tablet 03-28 00:00: 00 02-03 00:00 :00 No [id number] 40mg Take 1 tablet by mouth daily. [facility] acute hospital Lamictal 25 mg tablet 5-14 00:00: 00 [...] mg tablet 2- 00:00: 00 No 1mg Macrobid 100 mg [...] LUISANA/J&J VACCINE 2021-01-15 00:00:00 Completed [facility] SARS-COV-2 COVID-19 LUISANA/J&J VACCINE 2021-01-15 00:00:00 Completed [facility] SARS-COV-2 COVID-19 LUISANA/J&J VACCINE 2021-01-15 00:00:00 Completed [facility] SARS-COV-2 COVID-19 LUISANA/J&J VACCINE 2021-01-15 00:00:00 Completed [facility] SARS-COV-2 COVID-19 LUISANA/J&J VACCINE 2021-01-15 00:00:00 Completed [facility] SARS-COV-2 COVID-19 LUISANA/J&J VACCINE 2021-01-15 00:00:00 Completed [facility] SARS-COV-2 COVID-19 LUISANA/J&J VACCINE 2021-01-15 00:00:00 Completed [facility] SARS-COV-2 COVID-19 LUISANA/J&J VACCINE 2021-01-15 00:00:00 Completed [facility] SARS-COV-2 COVID-19 LUISANA/J&J VACCINE 2021-01-15 00:00:00 Completed [facility] SARS-COV-2 COVID-19 LUISANA/J&J VACCINE 2021-01-15 00:00:00 Completed [facility] SARS-COV-2 COVID-19 LUISANA/J&J VACCINE 2021-01-15 00:00:00 Completed [facility] SARS-COV-2 COVID-19 LUISANA/J&J VACCINE 2021-01-15 00:00:00 Completed [facility] SARS-COV-2 COVID-19 LUISANA/J&J VACCINE 2021-01-15 00:00:00 Completed [facility] SARS-COV-2 COVID-19 LUISANA/J&J VACCINE 2021-01-15 00:00:00 Completed [facility] SARS-COV-2 COVID-19 LUISANA/J&J VACCINE 2021-01-15 00:00:00 Completed [facility] SARS-COV-2 COVID-19 LUISANA/J&J VACCINE 2021-01-15 00:00:00 Completed [facility] SARS-COV-2 COVID-19 LUISANA/J&J VACCINE 2021-01-15 00:00:00 Completed [facility] SARS-COV-2 COVID-19 LUISANA/J&J VACCINE 2021-01-15 00:00:00 Completed [facility] SARS-COV-2 COVID-19 LUISANA/J&J VACCINE 2021-01-15 00:00:00 Completed [facility] SARS-COV-2 COVID-19 LUISANA/J&J VACCINE 2021-01-15 00:00:00 Completed [facility] SARS-COV-2 COVID-19 LUISANA/J&J VACCINE 2021-01-15 00:00:00 Completed [facility] SARS-COV-2 COVID-19 LUISANA/J&J VACCINE 2021-01-15 00:00:00 Completed [facility] SARS-COV-2 COVID-19 LUISANA/J&J VACCINE 2021-01-15 00:00:00 Completed [facility] SARS-COV-2 COVID-19 LUISANA/J&J VACCINE 2021-01-15 00:00:00 Completed [facility] SARS-COV-2 COVID-19 LUISANA/J&J VACCINE 2021-01-15 00:00:00 Completed [facility] SARS-COV-2 COVID-19 LUISANA/J&J VACCINE 2021-01-15 00:00:00 Completed [facility] SARS-COV-2 COVID-19 LUISANA/J&J VACCINE 2021-01-15 00:00:00 Completed [facility] SARS-COV-2 COVID-19 LUISANA/J&J VACCINE 2021-01-15 00:00:00 Completed [facility] SARS-COV-2 COVID-19 LUISANA/J&J VACCINE 2021-01-15 00:00:00 Completed [facility] SARS-COV-2 COVID-19 LUISANA/J&J VACCINE 2021-01-15 00:00:00 Completed [facility] SARS-COV-2 COVID-19 LUISANA/J&J VACCINE 2021-01-15 00:00:00 Completed [facility] SARS-COV-2 COVID-19 LUISANA/J&J VACCINE 2021-01-15 00:00:00 Completed [facility] SARS-COV-2 COVID-19 LUISANA/J&J VACCINE 2021-01-15 00:00:00 Completed [facility] SARS-COV-2 COVID-19 LUISANA/J&J VACCINE 2021-01-15 00:00:00 Completed [facility] SARS-COV-2 COVID-19 LUISANA/J&J VACCINE 2021-01-15 00:00:00 Completed [facility] SARS-COV-2 COVID-19 LUISANA/J&J VACCINE 2021-01-15 00:00:00 Completed [facility] SARS-COV-2 COVID-19 LUISANA/J&J VACCINE 2021-01-15 00:00:00 Completed [facility] SARS-COV-2 COVID-19 LUISANA/J&J VACCINE 2021-01-15 00:00:00 Completed [facility] SARS-COV-2 COVID-19 LUISANA/J&J VACCINE 2021-01-15 00:00:00 Completed [facility] SARS-COV-2 COVID-19 LUISANA/J&J VACCINE 2021-01-15 00:00:00 Completed [facility] SARS-COV-2 COVID-19 LUISANA/J&J VACCINE 2021-01-15 00:00:00 Completed [facility] SARS-COV-2 COVID-19 LUISANA/J&J VACCINE 2021-01-15 00:00:00 Completed [facility] SARS-COV-2 COVID-19 LUISANA/J&J VACCINE 2021-01-15 00:00:00 Completed [facility] SARS-COV-2 COVID-19 LUISANA/J&J VACCINE 2021-01-15 00:00:00 Completed [facility] SARS-COV-2 COVID-19 LUISANA/J&J VACCINE 2021-01-15 00:00:00 Completed [facility] SARS-COV-2 COVID-19 LUISANA/J&J VACCINE 2021-01-15 00:00:00 Completed [facility] SARS-COV-2 COVID-19 LUISANA/J&J VACCINE 2021-01-15 00:00:00 Completed [facility] SARS-COV-2 COVID-19 LUISANA/J&J VACCINE 2021-01-15 00:00:00 Completed [facility] SARS-COV-2 COVID-19 LUISANA/J&J VACCINE 2021-01-15 00:00:00 Completed [facility] SARS-COV-2 COVID-19 LUISANA/J&J VACCINE 2021-01-15 00:00:00 Completed [facility] SARS-COV-2 COVID-19 LUISANA/J&J VACCINE Unknown Completed [facility] SARS-COV-2 COVID-19 LUISANA/J&J VACCINE Unknown Completed [facility] SARS-COV-2 COVID-19 LUISANA/J&J VACCINE Unknown Completed [facility] SARS-COV-2 COVID-19 LUISANA/J&J VACCINE Unknown Completed [facility] SARS-COV-2 COVID-19 LUISANA/J&J VACCINE Unknown Completed [facility] SARS-COV-2 COVID-19 LUISANA/J&J VACCINE Unknown Completed [facility] SARS-COV-2 COVID-19 LUISANA/J&J VACCINE Unknown Completed [facility] SARS-COV-2 COVID-19 LUISANA/J&J VACCINE Unknown Completed [facility] SARS-COV-2 COVID-19 LUISANA/J&J VACCINE Unknown Completed [facility] SARS-COV-2 COVID-19 LUISANA/J&J VACCINE Unknown Completed [facility] SARS-COV-2 COVID-19 LUISANA/J&J VACCINE Unknown Completed [facility] SARS-COV-2 COVID-19 LUISANA/J&J VACCINE Unknown Completed [facility] SARS-COV-2 COVID-19 LUISANA/J&J VACCINE Unknown Completed [facility] SARS-COV-2 COVID-19 LUISANA/J&J VACCINE Unknown Completed [facility] SARS-COV-2 COVID-19 LUISANA/J&J VACCINE Unknown Completed [facility] SARS-COV-2 COVID-19 LUISANA/J&J VACCINE Unknown Completed [facility] SARS-COV-2 COVID-19 LUISANA/J&J VACCINE Unknown Completed [facility] SARS-COV-2 COVID-19 LUISANA/J&J VACCINE Unknown Completed [facility] SARS-COV-2 COVID-19 LUISANA/J&J VACCINE Unknown Completed [facility] SARS-COV-2 COVID-19 LUISANA/J&J VACCINE Unknown Completed [facility] SARS-COV-2 COVID-19 LUISANA/J&J VACCINE Unknown Completed [facility] SARS-COV-2 COVID-19 LUISANA/J&J VACCINE Unknown Completed [facility] SARS-COV-2 COVID-19 LUISANA/J&J VACCINE Unknown Completed [facility] SARS-COV-2 COVID-19 LUISANA/J&J VACCINE Unknown Completed [facility] SARS-COV-2 COVID-19 LUISANA/J&J VACCINE Unknown Completed [facility] SARS-COV-2 COVID-19 LUISANA/J&J VACCINE Unknown Completed [facility] SARS-COV-2 COVID-19 LUISANA/J&J VACCINE Unknown Completed [facility] SARS-COV-2 COVID-19 LUISANA/J&J VACCINE Unknown Completed [facility] SARS-COV-2 COVID-19 LUISANA/J&J VACCINE Unknown Completed [facility] SARS-COV-2 COVID-19 LUISANA/J&J VACCINE Unknown Completed [facility] SARS-COV-2 COVID-19 LUISANA/J&J VACCINE Unknown Completed [facility] SARS-COV-2 COVID-19 LUISANA/J&J VACCINE Unknown Completed [facility] SARS-COV-2 COVID-19 LUISANA/J&J VACCINE Unknown Completed [facility] SARS-COV-2 COVID-19 LUISANA/J&J VACCINE Unknown Completed [facility] SARS-COV-2 COVID-19 LUISANA/J&J VACCINE Unknown Completed [facility] SARS-COV-2 COVID-19 LUISANA/J&J VACCINE Unknown Completed [facility] SARS-COV-2 COVID-19 LUISANA/J&J VACCINE Unknown Completed [facility] SARS-COV-2 COVID-19 LUISANA/J&J VACCINE Unknown Completed [facility] SARS-COV-2 COVID-19 LUISANA/J&J VACCINE Unknown Completed [facility] SARS-COV-2 COVID-19 LUISANA/J&J VACCINE Unknown Completed [facility] SARS-COV-2 COVID-19 LUISANA/J&J VACCINE Unknown Completed [facility] SARS-COV-2 COVID-19 LUISANA/J&J VACCINE Unknown Completed [facility] SARS-COV-2 COVID-19 LUISANA/J&J VACCINE Unknown Completed [facility] Vital Signs Vital Name Observation Time Observation Value Comments S ource Systolic blood pressure 2024-06-14 20:20:00 125 mm[Hg] [facility] Diastolic blood pressure 2024-06-14 20:20:00 83 mm[Hg] [facility] Heart rate 2024-06-14 20:20:00 102 /min [facility] Body weight 2024-06-14 20:20:00 66.679 kg [facility] BMI 2024-06-14 20:20:00 25.23 kg/m2 [facility] Systolic blood pressure 2024-01-07 20:03:00 148 mm[Hg] [facility] Diastolic blood pressure 2024-01-07 20:03:00 89 mm[Hg] [facility] Heart rate 2024-01-07 20:02:00 87 /min [facility] Body temperature 2024-01-07 20:02:00 36.61 Annia [facility] Body height 2024-01-07 20:02:00 162.6 cm [facility] Body weight 2024-01-07 20:02:00 65.318 kg [facility] BMI 2024-01-07 20:02:00 24.72 kg/m2 [facility] Systolic blood pressure 2024-01-04 20:56:00 126 mm[Hg] [facility] Diastolic blood pressure 2024-01-04 20:56:00 80 mm[Hg] [facility] Heart rate 2024-01-04 20:56:00 71 /min [facility] Body temperature 2024-01-04 20:56:00 36.72 Annia [facility] Respiratory rate 2024-01-04 20:56:00 20 /min [facility] Body height 2024-01-04 20:56:00 162.6 cm [facility] 2024-01-04 20:56:00 67.631 kg [facility] BMI 2024-01-04 20:56:00 25.59 kg/m2 [facility] Oxygen saturation in Arterial blood by Pulse oximetry 2024-01-04 20:56:00 100 /min [facility] Systolic blood pressure 2023-10-16 22:45:00 126 mm[Hg] [facility] Diastolic blood pressure 2023-10-16 22:45:00 79 mm[Hg] [facility] Heart rate 2023-10-16 22:45:00 94 /min [facility] Body temperature 2023-10-16 22:45:00 37.06 Annia [facility] Body height 2023-10-16 22:45:00 162.6 cm [facility] Body weight 2023-10-16 22:45:00 63.095 kg [facility] BMI 2023-10-16 22:45:00 23.88 kg/m2 [facility] Oxygen saturation in Arterial blood by Pulse oximetry 2023-10-16 22:45:00 99 /min [facility] Systolic blood pressure 2023-08-11 18:07:00 121 mm[Hg] [facility] Diastolic blood pressure 2023-08-11 18:07:00 80 mm[Hg] [facility] Heart rate 2023-08-11 18:07:00 96 /min [facility] Body height 2023-08-11 18:07:00 162.6 cm [facility] Body weight 2023-08-11 18:07:00 64.411 kg [facility] BMI 2023-08-11 18:07:00 24.37 kg/m2 [facility] Heart rate 2023-07-17 01:37:00 102 /min [facility] Respiratory rate 2023-07-17 01:37:00 17 /min [facility] Body weight 2023-07-17 01:37:00 65.998 kg [facility] BMI 2023-07-17 01:37:00 24.98 kg/m2 [facility] Oxygen saturation in Arterial blood by Pulse oximetry 2023-07-17 01:37:00 98 /min [facility] Systolic blood pressure 2023-07-15 09:08:00 152 mm[Hg] [facility] Diastolic blood pressure 2023-07-15 09:08:00 106 mm[Hg] [facility] Heart rate 2023-07-15 09:08:00 62 /min [facility] Body temperature 2023-07-15 09:08:00 37.22 Annia [facility] Respiratory rate 2023-07-15 09:08:00 18 /min [facility] Body height 2023-07-15 09:08:00 162.6 cm [facility] Body weight 2023-07-15 09:08:00 67.132 kg [facility] BMI 2023-07-15 09:08:00 25.40 kg/m2 [facility] Oxygen saturation in Arterial blood by Pulse oximetry 2023-07-15 09:08:00 100 /min [facility] Systolic blood pressure 2023-02-15 22:41:00 109 mm[Hg] [facility] Diastolic blood pressure 2023-02-15 22:41:00 72 mm[Hg] [facility] Heart rate 2023-02-15 22:41:00 87 /min [facility] Body temperature 2023-02-15 22:41:00 36.83 Annia [facility] Respiratory rate 2023-02-15 22:41:00 18 /min [facility] Body height 2023-02-15 22:41:00 162.6 cm [facility] Body weight 2023-02-15 22:41:00 68.947 kg [facility] BMI 2023-02-15 22:41:00 26.09 kg/m2 [facility] Oxygen saturation in Arterial blood by Pulse oximetry 2023-02-15 22:41:00 96 /min [facility] Systolic blood pressure 2023-02-07 14:41:00 124 mm[Hg] [facility] Diastolic blood pressure 2023-02-07 14:41:00 83 mm[Hg] [facility] Heart rate 2023-02-07 14:41:00 94 /min [facility] Body temperature 2023-02-07 14:41:00 36.67 Annia [facility] Body height 2023-02-07 14:41:00 162.6 cm [facility] Body weight 2023-02-07 14:41:00 69.718 kg [facility] BMI 2023-02-07 14:41:00 26.38 kg/m2 [facility] Oxygen saturation in Arterial blood by Pulse oximetry 2023-02-07 14:41:00 98 /min [facility] Systolic blood pressure 2023-02-03 14:53:00 125 mm[Hg] [facility] Diastolic blood pressure 2023-02-03 14:53:00 68 mm[Hg] [facility] Heart rate 2023-02-03 14:53:00 79 /min [facility] Body temperature 2023-02-03 14:53:00 36.33 Annia [facility] Body height 2023-02-03 14:53:00 162.6 cm [facility] Body weight 2023-02-03 14:53:00 68.629 kg [facility] BMI 2023-02-03 14:53:00 25.97 kg/m2 [facility] Oxygen saturation in Arterial blood by Pulse oximetry 2023-02-03 14:53:00 100 /min [facility] Systolic blood pressure 2023-01-03 21:59:00 133 mm[Hg] [facility] Diastolic blood pressure 2023-01-03 21:59:00 87 mm[Hg] [facility] Heart rate 2023-01-03 21:59:00 109 /min [facility] Body temperature 2023-01-03 21:59:00 36.89 Annia [facility] Respiratory rate 2023-01-03 21:59:00 17 /min [facility] Body weight 2023-01-03 21:59:00 70.308 kg [facility] BMI 2023-01-03 21:59:00 26.61 kg/m2 [facility] Oxygen saturation in Arterial blood by Pulse oximetry 2023-01-03 21:59:00 98 /min [facility] Systolic blood pressure 2022-12-06 15:29:00 132 mm[Hg] [facility] Diastolic blood pressure 2022-12-06 15:29:00 85 mm[Hg] [facility] Body temperature 2022-12-06 15:29:00 37.11 Annia [facility] Body height 2022-12-06 15:29:00 162.6 cm [facility] Body weight 2022-12-06 15:29:00 68.947 kg [facility] BMI 2022-12-06 15:29:00 26.09 kg/m2 [facility] Oxygen saturation in Arterial blood by Pulse oximetry 2022-12-06 15:29:00 99 /min [facility] Systolic blood pressure 2022-11-20 21:39:00 106 mm[Hg] [facility] Diastolic blood pressure 2022-11-20 21:39:00 63 mm[Hg] [facility] Heart rate 2022-11-20 21:39:00 118 /min [facility] Body temperature 2022-11-20 21:39:00 36.72 Annia [facility] Body height 2022-11-20 21:39:00 162.6 cm [facility] Body weight 2022-11-20 21:39:00 68.04 kg [facility] BMI 2022-11-20 21:39:00 25.75 kg/m2 [facility] Oxygen saturation in Arterial blood by Pulse oximetry 2022-11-20 21:39:00 99 /min [facility] Systolic blood pressure 2022-09-25 17:10:00 120 mm[Hg] [facility] Diastolic blood pressure 2022-09-25 17:10:00 80 mm[Hg] [facility] Heart rate 2022-09-25 17:10:00 92 /min [facility] Body height 2022-09-25 17:10:00 162.6 cm [facility] Body weight 2022-09-25 17:10:00 64.864 kg [facility] BMI 2022-09-25 17:10:00 24.55 kg/m2 [facility] Systolic blood pressure 2022-08-08 02:23:00 122 mm[Hg] [facility] Diastolic blood pressure 2022-08-08 02:23:00 78 mm[Hg] [facility] Heart rate 2022-08-08 02:23:00 76 /min [facility] Body temperature 2022-08-08 02:23:00 36.67 Annia [facility] Respiratory rate 2022-08-08 02:23:00 19 /min [facility] Oxygen saturation in Arterial blood by Pulse oximetry 2022-08-08 02:23:00 96 /min [facility] Body height 2022-08-07 20:26:00 162.6 cm [facility] Body weight 2022-08-07 20:26:00 64.1 kg [facility] BMI 2022-08-07 20:26:00 24.26 kg/m2 [facility] Heart rate 2022-07-09 14:25:00 88 /min [facility] Body height 2022-07-09 14:25:00 162.6 cm [facility] Body weight 2022-07-09 14:25:00 65.318 kg [facility] BMI 2022-07-09 14:25:00 24.72 kg/m2 [facility] Systolic blood pressure 2022-07-09 14:25:00 139 mm[Hg] [facility] Diastolic blood pressure 2022-07-09 14:25:00 94 mm[Hg] [facility] Systolic blood pressure 2022-06-04 18:16:00 115 mm[Hg] [facility] Diastolic blood pressure 2022-06-04 18:16:00 74 mm[Hg] [facility] Body height 2022-06-04 18:16:00 162.6 cm [facility] Body weight 2022-06-04 18:16:00 64.864 kg [facility] BMI 2022-06-04 18:16:00 24.55 kg/m2 [facility] BP Systolic 2022-11-12 09:56:00 119 mm[Hg] [...] / Time Performed Performing Clinicia n Source [facility] PATIENT FINANCIAL POLICY 2024-01-04 20:47:36 Doctor Unassigned, [place] [facility] POCT MOLECULAR FLU 2023-10-16 22:59:00 Gaby Palma [facility] POCT MOLECULAR STREP 2023-10-16 22:51:00 Annamaria Palma [facility] POCT SARS-COV-2 ANTIGEN (BINAX NOW) 2023-10-16 00:00:00 Gaby Palma [facility] ASSIGNMENT OF BENEFITS 2023-08-11 18:02:12 Docto r Unassigned, [place] [facility] NOTICE OF PRIVACY PRACTICES 2023-07-15 09:02:01 Doctor Unassigned, [place] [facility] CONSENT/REFUSAL FOR DIAGNOSIS AND TREATMENT 2023-07-15 09:01:33 Doctor Unassigned, [place] [facility] POCT SARS-COV-2 ANTIGEN (BINAX NOW) 2023-02-07 15:13:00 Vivienne Holt [facility] POCT MOLECULAR FLU 2023-02-07 15:06:00 Unknown, Attend ing [facility] POCT MOLECULAR STREP 2023-02-07 14:52:00 Unknown, Atte laura [facility] PATIENT FINANCIAL POLICY 2023-01-03 21:48:53 Doctor Unassigned, [place] [facility] EXTERNAL PROVIDER RECORDS 2022-12-24 06:01:00 Doctor Unassigned, [place] [facility] CREATINE KINASE 2022-08-07 21:44:00 Mila Keys [facility] LIPASE 2022-08-07 21:44:00 [facility]a [facility] TEST, SERUM 2022-08-07 21:44:00 Anaid Keys [facility] TROPONIN I 2022-08-07 21:44:00 Mila Keys [facility] HEPATIC FUNCTION PANEL ([id number]) (ALB,T.PRO,BILI T,BU/BC,ALT,AST,ALK PHOS) 2022-08-07 21:44:00 Mila Keys [facility] BASIC METABOLIC PANEL (NA, K, CL, CO2, GLUCOSE, BUN, CREATININE, CA) 2022-08-07 21:44:00 Ludmila Mila [facility] SALICYLATE 2022-08-07 21:44:00 Mila Keys [facility] ETHANOL 2022-08-07 21:44:00 Ludmila Mila [facility] CBC WITH DIFF 2022-08-07 [facility]:44[facility] Activity Planned Date Details Comments Source Goal Plan of Care Note [code = 12309-7] Goal Plan of Care Note [code = 38181-7] Goal Plan of Care Note [code = 55546-5] Goal Plan of Care Note [code = 28567-2] Goal Plan of Care Note [code = 13713-1] Goal Plan of Care Note [code = 90908-4] Goal Plan of Care Note [code = 23656-4] Goal Plan of Care Note [code = 62527-4] Goal Plan of Care Note [code = 38907-7] Goal Plan of Care Note [code = 89627-9] Goal Plan of Care Note [code = 08782-4] Goal Plan of Care Note [code = 23794-5] Goal Plan of Care Note [code = 79656-6] Goal Plan of Care Note [code = 91719-5] Goal Plan of Care Note [code = 59425-0] Goal Plan of Care Note [code = 34786-8] Goal Plan of Care Note [code = 79613-1] Goal Plan of Care Note [code = 72113-8] Goal Plan of Care Note [code = 48048-3] Goal Plan of Care Note [code = 42686-8] Goal Plan of Care Note [code = 38574-5] Goal Plan of Care Note [code = 90116-2] Goal Plan of Care Note [code = 82118-9] Goal Plan of Care Note [code = 01249-7] Goal Plan of Care Note [code = 12874-9] Goal Plan of Care Note [code = 08303-7] Goal Plan of Care Note [code = 83466-6] Goal Plan of Care Note [code = 33337-7] Goal Plan of Care Note [code = 87331-6] Goal Plan of Care Note [code = 58209-1] Goal Plan of Care Note [code = 67424-1] Goal Plan of Care Note [code = 57251-7] Goal Plan of Care Note [code = 23096-7] Encounters Start Date/Time End Date/Time Encounter Type Admission Type Attending Clinicians Care Facility Care Department Encounter ID Source 2021-08-20 08:51:37 Emergency [facility] [id number] General acute hospital 2024-06-14 15:30:00 2024-06-14 15:45:00 [facility] 1..840.114 350.1.13.10 4.2.7.2.686 [id number] General acute hospital 2024-06-14 15:30:00 2024-06-14 15:30:00 Outpatient LAURA AMADOR [facility] [id number] General acute hospital 2024-06-10 00:00:00 2024-06-10 11:04:17 Refill Ruby On license of [facility] LUCIUS?[facility] 1..840.114 350.1.13.10 4.2.7.2.686 [id number] General acute hospital 2024-05-12 00:00:00 2024-05-12 16:24:00 [facility] 1..840.114 350.1.13.10 4.2.7.2.686 [id number] General acute hospital 2024-05-10 13:45:00 2024-05-10 13:45:00 Outpatient LAURA AMADOR [facility] [id number] General acute hospital 2024-05-05 00:00:00 2024-05-05 15:51:20 [facility] 1..840.114 350.1.13.10 4.2.7.2.686 [id number] General acute hospital 2024-05-05 00:00:00 2024-05-05 08:52:26 Ming Aguilakinza Laura [facility] LUCIUS[facility] 1..840.114 350.1.13.10 4.2.7.2.686 [id number] General acute hospital 2024-04-14 00:00:00 2024-04-15 07:44:11 Laura Perez [facility] LUCIUS?[facility] 1.84.114 350.1.13.10 4.2.7.2.686 [id number] General acute hospital 2024-03-08 00:00:00 2024-03-08 11:42:52 [facility] 1..114 350.1.13.10 4.2.7.2.686 [id number] General acute hospital 2024-02-11 00:00:00 2024-02-11 00:00:00 Refill Laura Beltran Replaced by [facility] 1.84.114 350.1.13.10 4.2.7.2.686 [id number] General acute hospital 2024-01-14 14:30:00 2024-01-14 14:30:00 Outpatient R ENEIDA CANNON [facility] [id number] General acute hospital 2024-01-07 15:15:00 2024-01-07 15:30:00 Office Visit Laura Beltran Replaced by [facility] 1.84.114 350.1.13.10 4.2.7.2.686 [id number] General acute hospital 2024-01-07 15:15:00 2024-01-07 15:15:00 Outpatient R LAURA BELTRAN [facility] [id number] General acute hospital 2024-01-04 15:40:00 2024-01-04 16:00:00 Urgent Care Vivienne Holt Unknown, Attending [facility] 1.84.114 350.1.13.10 4.2.7.2.686 [id number] General acute hospital 2024-01-04 15:40:00 2024-01-04 15:40:00 Outpatient VIVIENNE ROYAL [facility] [id number] General acute hospital 2024-01-04 00:00:00 2024-01-04 00:00:00 Orders Only Doctor Unassigned, [place] [facility] 1.2840.114 350.1.13.10 4.2.7.2.686 [id number] General acute hospital 2024-01-01 00:00:00 2024-01-01 00:00:00 Refill Ruby [facility] 1.2840.114 350.1.13.10 4.2.7.2.686 [id number] 044 [id number] General acute hospital 2023-12-29 00:00:00 2023-12-29 00:00:00 Letter (Out) [facility] 1.284.114 350.1.13.10 4.2.7.2.686 [id number] General acute hospital 2023-12-24 00:00:00 2023-12-24 00:00:00 Telephone Laura Beltran Replaced by [facility] 1.840.114 350.1.13.10 4.2.7.2.686 [id number] 044 [id number] General acute hospital 2023-12-15 09:30:00 2023-12-15 09:30:00 Outpatient LAURA AMADOR [facility] [id number] General acute hospital 2023-12-11 00:00:00 2023-12-11 00:00:00 Telephone Laura Beltran [facility] 1.2.840.114 350.1.13.10 4.2.7.2.686 [id number] 044 [id number] General acute hospital 2023-12-11 00:00:00 2023-12-11 00:00:00 Telephone Laura Beltran [facility] 1.2.840.114 350.1.13.10 4.2.7.2.686 [id number] 044 [id number] General acute hospital 2023-12-09 00:00:00 2023-12-09 00:00:00 Telephone Laura Beltran [facility] 1.2.840.114 350.1.13.10 4.2.7.2.686 [id number] 044 [id number] General acute hospital 2023-12-08 00:00:00 2023-12-08 00:00:00 Refill Laura Beltran [facility] 1.2.840.114 350.1.13.10 4.2.7.2.686 [id number] 044 [id number] General acute hospital 2023-12-04 00:00:00 2023-12-04 00:00:00 Telephone Laura Beltran [facility] 1.2.840.114 350.1.13.10 4.2.7.2.686 [id number] 044 [id number] General acute hospital 2023-11-27 00:00:00 2023-11-27 00:00:00 Telephone Laura Beltran [facility] 1.2.840.114 350.1.13.10 4.2.7.2.686 [id number] 044 [id number] General acute hospital 2023-11-10 15:40:11 2023-11-10 15:40:11 Outpatient [facility] [id number] Ignacio Heredia 2023-11-08 00:00:00 2023-11-08 00:00:00 Telephone Laura Beltran [facility] 1.84.114 350.1.13.10 4.2.7.2.686 [id number] 044 [id number] General acute hospital 2023-10-16 16:40:00 2023-10-16 17:06:52 Outpatient R GABY PALMA [facility] [id number] General acute hospital 2023-10-16 16:40:00 2023-10-16 17:06:52 Office Visit Scarlett Gaby [facility] 1.84114 350.1.13.10 4.2.7.2.686 [id number] 044 [id number] General acute hospital 2023-10-08 00:00:00 2023-10-08 00:00:00 Telephone Juan Pabloartie Laura [facility] 1.284.114 350.1.13.10 4.2.7.2.686 [id number] 044 [id number] General acute hospital 2023-10-06 00:00:00 2023-10-06 00:00:00 Refill Laura Beltran [facility] 1.84.114 350.1.13.10 4.2.7.2.686 [id number] 044 [id number] General acute hospital 2023-10-06 00:00:00 2023-10-06 00:00:00 Telephone Laura Beltran [facility] 1.284.114 350.1.13.10 4.2.7.2.686 [id number] 044 [id number] General acute hospital 2023-09-17 00:00:00 2023-09-17 00:00:00 Refill Laura Beltran [facility] 1.2840.114 350.1.13.10 4.2.7.2.686 [id number] 044 [id number] General acute hospital 2023-09-10 00:00:00 2023-09-10 00:00:00 RefLaura Grday [facility] 1.2840.114 350.1.13.10 4.2.7.2.686 [id number] 044 [id number] General acute hospital 2023-09-09 00:00:00 2023-09-09 00:00:00 Telephone Laura Beltran [facility] 1.2840.114 350.1.13.10 4.2.7.2.686 [id number] 044 [id number] General acute hospital 2023-09-05 00:00:00 2023-09-05 00:00:00 Telephone Laura Beltran [facility] 1.2840.114 350.1.13.10 4.2.7.2.686 [id number] 044 [id number] General acute hospital 2023-09-03 00:00:00 2023-09-03 00:00:00 Refill Laura Beltran [facility] 1.2840.114 350.1.13.10 4.2.7.2.686 [id number] 044 [id number] General acute hospital 2023-08-11 13:00:00 2023-08-11 13:23:48 Outpatient R LAURA BELTRAN [facility] [id number] General acute hospital 2023-08-11 13:00:00 2023-08-11 13:23:48 Office Visit Laura Beltran [facility] 1.2840.114 350.1.13.10 4.2.7.2.686 [id number] 044 [id number] General acute hospital 2023-08-11 00:00:00 2023-08-11 00:00:00 Orders Only Doctor Unassigned, [place] [facility] 1.2840.114 350.1.13.10 4.2.7.2.686 [id number] [id number] General acute hospital 2023-08-05 00:00:00 2023-08-05 00:00:00 Refill Ruby [facility] 1..840.114 350.1.13.10 4.2.7.2.686 [id number] 044 [id number] General acute hospital 2023-07-26 00:00:00 2023-07-26 00:00:00 Refambika Beltran [facility] 1..840.114 350.1.13.10 4.2.7.2.686 [id number] 044 [id number] General acute hospital 2023-07-24 10:45:00 2023-07-24 10:45:00 Outpatient MAIKEL HINDS [facility] [id number] Tem[facility] 2023-07-16 20:20:00 2023-07-16 20:40:00 Urgent Care Vivienne Holt Unknown, Attending [facility] 1..840.114 350.1.13.10 4.2.7.2.686 [id number] General acute hospital 2023-07-16 20:20:00 2023-07-16 20:20:00 Outpatient R VIVIENNE HOLT [facility] [id number] General acute hospital 2023-07-15 04:10:00 2023-07-15 04:44:00 Emergency X [facility] E[facility] [id number] General acute hospital 2023-07-15 04:10:00 2023-07-15 04:44:[address] [facility] 1.2.840.114 350.1.13.10 4.2.7.2.686 [id number] 084 [id number] General acute hospital 2023-07-03 00:00:00 2023-07-03 00:00:00 Refill Laura Beltran [facility] 1.2.840.114 350.1.13.10 4.2.7.2.686 [id number] 044 [id number] General acute hospital 2023-07-03 00:00:00 2023-07-03 00:00:00 Refill Laura Beltran [facility] 1.2840.114 350.1.13.10 4.2.7.2.686 [id number] 044 [id number] General acute hospital 2023-06-16 00:00:00 2023-06-16 00:00:00 Telephone Ruby [facility] 1.2840.114 350.1.13.10 4.2.7.2.686 [id number] 044 [id number] General acute hospital 2023-06-09 00:00:00 2023-06-09 00:00:00 Refill Laura Beltran [facility] 1.2840.114 350.1.13.10 4.2.7.2.686 [id number] 044 [id number] General acute hospital 2023-06-06 00:00:00 2023-06-06 00:00:00 Refill Laura Beltran [facility] 1.2840.114 350.1.13.10 4.2.7.2.686 [id number] 044 [id number] General acute hospital 2023-06-04 10:00:00 2023-06-04 10:00:00 Outpatient LAURA AMADOR [facility] [id number] General acute hospital 2023-05-23 16:51:14 2023-05-23 23:59:00 [facility] 1.2840.114 350.1.13.10 4.2.7.2.686 [id number] General acute hospital 2023-05-23 16:50:23 2023-05-23 16:50:00 [id number] 2023-05-23 16:30:00 2023-05-23 16:50:00 [facility] 1.2840.114 350.1.13.10 4.2.7.2.686 [id number] [id number] General acute hospital 2023-05-13 00:00:00 2023-05-13 00:00:00 Patient Secure Msg Doctor Unassigned, [place] [facility] 1.84.114 350.1.13.10 4.2.7.2.686 [id number] 044 [id number] General acute hospital 2023-05-10 00:00:00 2023-05-10 00:00:00 Refill Laura Beltran [facility] 1.84.114 350.1.13.10 4.2.7.2.686 [id number] 044 [id number] General acute hospital 2023-05-07 00:00:00 2023-05-07 00:00:00 Patient Secure Msg Doctor Unassigned, [place] [facility] 1.840.114 350.1.13.10 4.2.7.2.686 [id number] General acute hospital 2023-05-05 00:00:00 2023-05-05 00:00:00 Telephone Ruby On license of [facility] 1.840.114 350.1.13.10 4.2.7.2.686 [id number] 044 [id number] General acute hospital 2023-05-02 00:00:00 2023-05-02 00:00:00 Outpatient Casey [facility] [id number] General acute hospital 2023-04-25 00:00:00 2023-04-25 00:00:00 Outpatient Casey [facility]AKAT [facility] [id number] General acute hospital 2023-04-08 00:00:00 2023-04-08 00:00:00 Refill Ruby On license of [facility] 1.840.114 350.1.13.10 4.2.7.2.686 [id number] 044 [id number] General acute hospital 2023-04-03 00:00:00 2023-04-03 00:00:00 Refill Ruby On license of [facility] 1.840.114 350.1.13.10 4.2.7.2.686 [id number] 044 [id number] General acute hospital 2023-03-10 00:00:00 2023-03-10 00:00:00 Telephone Laura Beltran [facility] 1.840.114 350.1.13.10 4.2.7.2.686 [id number] 044 [id number] General acute hospital 2023-03-08 00:00:00 2023-03-08 00:00:00 Refill Ruby On license of [facility] 1.2840.114 350.1.13.10 4.2.7.2.686 [id number] 044 [id number] General acute hospital 2023-03-07 00:00:00 2023-03-07 00:00:00 Refill Laura Beltran [facility] 1.2.840.114 350.1.13.10 4.2.7.2.686 [id number] 044 [id number] General acute hospital 2023-03-07 00:00:00 2023-03-07 00:00:00 [facility] 1.2.840.114 350.1.13.10 4.2.7.2.686 [id number] 044 [id number] General acute hospital 2023-02-17 00:00:00 2023-02-17 00:00:00 [facility] 1..840.114 350.1.13.10 4.2.7.2.686 [id number] 044 [id number] General acute hospital 2023-02-15 17:30:00 2023-02-15 17:41:47 Outpatient R ANDRIY WOOTEN [facility] [id number] General acute hospital 2023-02-15 17:30:00 2023-02-15 17:41:47 Nurse Visit Nurse, Jose Petty [facility] Unknown, [facility] 1.2.840.114 350.1.13.10 4.2.7.2.686 [id number] General acute hospital 2023-02-15 17:20:00 2023-02-15 17:20:00 Outpatient R UNKNOWN, ATTENDING [facility] [id number] General acute hospital 2023-02-07 09:20:00 2023-02-07 09:40:00 Urgent Care Vivienne Holt Joshua, Attending [facility] 1..840.114 350.1.13.10 4.2.7.2.686 [id number] 370 [id number] General acute hospital 2023-02-07 09:20:00 2023-02-07 09:20:00 Outpatient R JOSHUA, ATTENDING VIVIENNE HOLT [facility] [id number] General acute hospital 2023-02-03 10:15:00 2023-02-03 10:30:00 Office Visit Laura Beltran Replaced by [facility] 1..840.114 350.1.13.10 4.2.7.2.686 [id number] 044 [id number] General acute hospital 2023-02-03 10:15:00 2023-02-03 10:15:00 Outpatient LAURA AMADOR [facility] [id number] General acute hospital 2023-01-23 10:00:00 2023-01-23 10:00:00 Outpatient LAURA AMADOR [facility] [id number] General acute hospital 2023-01-06 00:00:00 2023-01-06 00:00:00 Refill Laura Beltran Replaced by [facility] 1..840.114 350.1.13.10 4.2.7.2.686 [id number] 044 [id number] General acute hospital 2023-01-04 00:00:00 2023-01-04 00:00:00 Telephone Provider, Jose Petty Urgent Care [facility] 1..840.114 350.1.13.10 4.2.7.2.686 [id number] General acute hospital 2023-01-03 16:40:00 2023-01-03 17:14:19 Outpatient FLOR FATIMA [facility] [id number] General acute hospital 2023-01-03 16:40:00 2023-01-03 17:14:19 Urgent Care Flor Infante Unknown, Attending [facility] 1.2.840.114 350.1.13.10 4.2.7.2.686 [id number] 370 [id number] General acute hospital 2023-01-03 00:00:00 2023-01-03 00:00:00 Orders Only Doctor Unassigned, [place] [facility] 1.2.840.114 350.1.13.10 4.2.7.2.686 [id number] General acute hospital 2023-01-03 00:00:00 2023-01-03 00:00:00 Letter (Out) Flor Infante [facility] 1.2.840.114 350.1.13.10 4.2.7.2.686 [id number] 370 [id number] General acute hospital 2023-01-02 00:00:00 2023-01-02 00:00:00 Refill Laura Beltran [facility] 1.2.840.114 350.1.13.10 4.2.7.2.686 [id number] 044 [id number] General acute hospital 2022-12-28 00:00:00 2022-12-28 00:00:00 Refill Trena Wyatt [facility] 1.2.840.114 350.1.13.10 4.2.7.2.686 [id number] 044 [id number] General acute hospital 2022-12-26 00:00:00 2022-12-26 00:00:00 Outpatient STU BORGES [facility] [id number] [facility] 2022-12-24 00:00:00 2022-12-24 00:00:00 Orders Only Doctor Unassigned, [place] [facility] 1..840.114 350.1.13.10 4.2.7.2.686 [id number] General acute hospital 2022-12-06 09:30:00 2022-12-06 09:56:07 Outpatient R PATRICIA WYATTLIE [facility] [id number] General acute hospital 2022-12-06 09:30:00 2022-12-06 09:56:07 Office Visit Trena Waytt [facility] 1..840.114 350.1.13.10 4.2.7.2.686 [id number] 044 [id number] General acute hospital 2022-12-06 07:00:00 2022-12-06 07:00:00 Outpatient R YVONNE, TRENA [facility] [id number] General acute hospital 2022-12-05 00:00:00 2022-12-05 00:00:00 Refill Laura Beltran [facility] 1.2.840.114 350.1.13.10 4.2.7.2.686 [id number] 044 [id number] General acute hospital 2022-11-20 15:30:00 2022-11-20 16:22:49 Outpatient R VAUGHN TAN [facility] [id number] General acute hospital 2022-11-20 15:30:00 2022-11-20 16:22:49 Office Visit Vaughn Tan [facility] 1.2.840.114 350.1.13.10 4.2.7.2.686 [id number] 044 [id number] General acute hospital 2022-11-19 09:30:00 2022-11-19 09:30:00 Outpatient R ARNEL ALARCON [facility] [id number] General acute hospital 2022-11-14 11:59:29 2022-11-14 11:59:29 Outpatient [facility] [id number] Ignacio Heredia 2022-11-13 00:00:00 2022-11-13 00:00:00 Telephone Laura Beltran [facility] 1..840.114 350.1.13.10 4.2.7.2.686 [id number] 044 [id number] General acute hospital 2022-11-12 09:48:10 2022-11-12 09:48:10 Outpatient [facility] [id number] Ignacio Heredia 2022-11-12 00:00:00 2022-11-12 00:00:00 Outpatient Visit [id number] 2022-11-11 09:15:00 2022-11-11 09:15:00 Outpatient R LAURA BELTRAN [facility] [id number] General acute hospital 2022-10-30 00:00:00 2022-10-30 00:00:00 Refill Ruby On license of [facility] 1..840.114 350.1.13.10 4.2.7.2.686 [id number] 044 [id number] General acute hospital 2022-10-10 00:00:00 2022-10-10 00:00:00 Telephone Ruby On license of [facility] 1..840.114 350.1.13.10 4.2.7.2.686 [id number] 044 [id number] General acute hospital 2022-10-07 00:00:00 2022-10-07 00:00:00 Telephone Ruby On license of [facility] 1..840.114 350.1.13.10 4.2.7.2.686 [id number] 044 [id number] General acute hospital 2022-09-25 11:00:00 2022-09-25 11:20:08 Outpatient R RUBY LAURA [facility] [id number] General acute hospital 2022-09-25 11:00:00 2022-09-25 11:20:08 Office Visit Ruby [facility] 1.2.840.114 350.1.13.10 4.2.7.2.686 [id number] 044 [id number] General acute hospital 2022-09-03 00:00:00 2022-09-03 00:00:00 Refill [facility] 1.2.840.114 350.1.13.10 4.2.7.2.686 [id number] 044 [id number] General acute hospital 2022-08-09 00:00:00 2022-08-09 00:00:00 Telephone [facility] 1.2840.114 350.1.13.10 4.2.7.2.686 [id number] 044 [id number] General acute hospital 2022-08-08 00:00:00 2022-08-08 00:00:00 Telephone [facility] 1.2840.114 350.1.13.10 4.2.7.2.686 [id number] 044 [id number] General acute hospital 2022-08-07 15:19:00 2022-08-07 21:35:00 Emergency X [facility]MILA [facility] [id number] General acute hospital 2022-08-07 15:19:00 2022-08-07 21:35:00 Emergency Ludmila [facility] 1.2840.114 350.1.13.10 4.2.7.2.686 [id number] [id number] General acute hospital 2022-07-10 00:00:00 2022-07-10 00:00:00 Telephone Laura Beltran [facility] 1.2.840.114 350.1.13.10 4.2.7.2.686 [id number] 044 [id number] General acute hospital 2022-07-09 09:15:00 2022-07-09 09:44:28 Outpatient R LAURA BELTRAN [facility] [id number] General acute hospital 2022-07-09 09:15:00 2022-07-09 09:30:00 Office Visit Laura Beltran Replaced by [facility] 1.2.840.114 350.1.13.10 4.2.7.2.686 [id number] General acute hospital 2022-07-09 00:00:00 2022-07-09 00:00:00 Telephone Laura Beltran Replaced by [facility] 1.2.840.114 350.1.13.10 4.2.7.2.686 [id number] General acute hospital 2022-06-04 13:15:00 2022-06-04 13:32:49 Outpatient R LAURA BELTRAN [facility] [id number] General acute hospital 2022-06-04 13:15:00 2022-06-04 13:30:00 Office Visit Laura Beltran Replaced by [facility] 1.2.840.114 350.1.13.10 4.2.7.2.686 [id number] General acute hospital 2022-06-04 13:15:00 2022-06-04 13:15:00 Outpatient R LAURA BELTRAN [facility] [id number] General acute hospital 2022-04-28 11:37:00 2022-04-28 12:24:00 Emergency X MUNDO PEDROZA [facility] ERT [id number] General acute hospital 2022-04-28 11:37:00 2022-04-28 12:24:[address] [facility] 1.2840.114 350.1.13.10 4.2.7.2.686 [id number] General acute hospital 2022-04-28 00:00:00 2022-04-28 00:00:00 Letter (Out) Lora Gould [facility] 1..114 350.1.13.10 4.2.7.2.686 [id number] General acute hospital 2021-07-18 14:56:51 2021-07-18 15:32:09 [facility] 1..114 350.1.13.10 4.2.7.2.686 [id number] [id number] General acute hospital 2021-07-18 15:00:00 2021-07-18 15:00:00 Outpatient R LAURA BELTRAN [facility] [id number] General acute hospital 2021-05-30 00:00:00 2021-05-30 00:00:00 Orders Only Doctor Unassigned, [place] [facility] 1..114 350.1.13.10 4.2.7.2.686 [id number] General acute hospital 2021-05-25 00:00:00 2021-05-25 00:00:00 Telephone Laura Beltran [facility] 1..114 350.1.13.10 4.2.7.2.686 [id number] [id number] 2021-05-25 00:00:00 2021-05-25 00:00:00 Telephone Laura Beltran [facility] 1.2840.114 350.1.13.10 4.2.7.2.686 [id number] 044 [id number] General acute hospital 2021-05-21 00:00:00 2021-05-21 00:00:00 Refill Ruby [facility] 1.2840.114 350.1.13.10 4.2.7.2.686 [id number] 044 [id number] 2021-05-21 00:00:00 2021-05-21 00:00:00 Refill Ruby [facility] 1.2840.114 350.1.13.10 4.2.7.2.686 [id number] 044 [id number] General acute hospital 2021-05-05 11:42:00 2021-05-05 13:42:00 Emergency [facility] 1.2.840.114 350.1.13.10 4.2.7.2.686 [id number] 2021-05-05 11:42:00 2021-05-05 13:42:00 Emergency [facility] 1.2840.114 350.1.13.10 4.2.7.2.686 [id number] 084 [id number] General acute hospital 2021-05-04 00:00:00 2021-05-04 00:00:00 Telephone [facility] 1.20.114 350.1.13.10 4.2.7.2.686 [id number] 044 [id number] 2021-05-04 00:00:00 2021-05-04 00:00:00 Telephone [facility] 1.2840.114 350.1.13.10 4.2.7.2.686 [id number] 044 [id number] General acute hospital 2021-05-03 17:09:02 2021-05-03 17:56:38 Urgent Care [facility] 1.2840.114 350.1.13.10 4.2.7.2.686 [id number] [id number] 2021-05-03 17:09:02 2021-05-03 17:56:38 Urgent Care [facility] 1.20.114 350.1.13.10 4.2.7.2.686 [id number] [id number] General acute hospital 2021-05-03 17:20:00 2021-05-03 17:20:00 Outpatient R [facility] [id number] General acute hospital 2021-04-25 10:32:12 2021-04-25 10:47:12 Office Visit Laura Beltran [facility] Office [facility] 1.2.114 350.1.13.10 4.2.7.2.686 [id number] 2021-04-25 10:32:12 2021-04-25 10:47:12 Office Visit Laura Beltran [facility] 1.2840.114 350.1.13.10 4.2.7.2.686 [id number] General acute hospital 2021-04-25 10:30:00 2021-04-25 10:30:00 Outpatient R LAURA BELTRAN [facility] [id number] General acute hospital 2021-04-25 00:00:00 2021-04-25 00:00:00 Orders Only Doctor Unassigned, [place] [facility] 1.2.840.114 350.1.13.10 4.2.7.2.686 [id number] 2021-04-25 00:00:00 2021-04-25 00:00:00 Orders Only Doctor Unassigned, [place] [facility] 1.2840.114 350.1.13.10 4.2.7.2.686 [id number] [id number] General acute hospital 2021-04-19 00:00:00 2021-04-19 00:00:00 Orders Only Doctor Unassigned, [place] [facility] 1.2840.114 350.1.13.10 4.2.7.2.686 [id number] [id number] General acute hospital 2021-04-11 15:30:00 2021-04-11 15:30:00 Outpatient JORDAN COSTA [facility] [id number] General acute hospital 2021-03-28 09:16:27 2021-03-28 09:46:27 Office Visit Laura Beltran [facility] 1.840.114 350.1.13.10 4.2.7.2.686 [id number] General acute hospital 2021-03-28 09:30:00 2021-03-28 09:30:00 Outpatient LAURA AMADOR [facility] [id number] General acute hospital 2021-02-20 00:00:00 2021-02-20 00:00:00 Patient Secure Msg Doctor Unassigned, [place] [facility] 1.2840.114 350.1.13.10 4.2.7.2.686 [id number] General acute hospital 2020-11-25 22:09:00 2020-11-26 00:35:00 Emergency Jhoana Arnold [facility] 1.2840.114 350.1.13.10 4.2.7.2.686 [id number] General acute hospital 2020-11-25 22:09:00 2020-11-26 00:35:00 Emergency X JHOANA ARNOLD [facility] [id number] General acute hospital 2020-10-17 11:03:50 2020-10-17 11:18:50 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, 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 Cristal Verma [facility] 1..840.114 350.1.13.10 4.2.7.2.686 [id number] General acute hospital 2020-10-17 11:00:00 2020-10-17 11:00:00 Outpatient R URSZULA, [place] [facility] [id number] General acute hospital 2020-10-17 00:00:00 2020-10-17 00:00:00 Orders Only Doctor Unassigned, [place] [facility] 1..840.114 350.1.13.10 4.2.7.2.686 [id number] General acute hospital 2020-10-05 09:47:00 2020-10-05 15:13:00 Emergency X KELSI CORBETT [facility] [id number] General acute hospital 2020-10-05 09:47:00 2020-10-05 15:13:00 Emergency Kelsi Corbett [facility] 1.840.114 350.1.13.10 4.2.7.2.686 [id number] General acute hospital Results Test Description Test Time Test Comments Results Result Co mments Source HERPES SIMPLEX AB, [id number] 13:50:57* Test Item Value Reference Range Interpretation Comme nts HERPES SIMPLEX AB, IgM (test code = 32986) 0.84 INDEX SEE BELOW INTERPRETATION U NITS RANGE ----- ----- NEGATIVE INDEX <=0.89 EQUIVOCAL INDEX 0.90-1.09 POSITIVE INDEX >=1.10 GONORRHEA, NAAT, [id number] 12:26:16* Test Item Value Reference Range Interpretation Comme nts GONORRHEA, NAAT, URINE (test code = 63686) NEGATIVE NEGATIVE Testing is perfo rmed with Pradeep VLADISLAV 6800/8800 systems usingreal-time polymerase chain reaction (PCR) method. A negative result does not exclude low level infection, specimensampling error, or collection error. CHLAMYDIA, NAAT, [id number] 12:26:16* Test Item Value Reference Range Interpretation Comme nts CHLAMYDIA, NAAT, URINE (test code = 79219) NEGATIVE NEGATIVE Testing is perfo rmed with Pradeep VLADISLAV 6800/8800 systems usingreal-time polymerase chain reaction (PCR) method. A negative result does not exclude low level infection, specimensampling error, or collection error. HERPES SIMPLEX 1/2 AB, IgG [id number] 04:35:18* Test Item Value Reference Range Interpretation [facility] HERPES SIMPLEX 1 AB, IgG (test code = 15006) 11.300 INDEX SEE BELOW H INTERPRETATION U NITS RANGE ----- ----- NON-REACTIVE INDEX <1.000 REACTIVE INDEX >=1.000 HERPES SIMPLEX 2 AB, IgG (test code = 35130) 0.072 INDEX SEE BELOW INTERPRETATION UNITS RANGE ----- ----- NON-REACTIVE INDEX <1.000 REACTIVE INDEX >=1.000 HEPATITIS PANEL, [id number] 04:35:18* Test Item Value Reference Range Interpretation Comme nts HEPATITIS A IgM (test code = 95651) NON-REACTIVE NON-REACTIVE HEPATITIS B CORE IgM (test code = 4644) NON-REACTIVE NON-REACTIVE HEPATITIS B SURF AG (test code = 2739) NON-REACTIVE NON-REACTIVE HEPATITIS C ANTIBODY (test code = 4675) NON-REACTIVE NON-REACTIVE INTERPRETATION HEPATITIS A: (test code = 2552) (NOTE) Hepatitis A sero logy shows no evidence of acute hepatitis A. INTERPRETATION HEPATITIS B: (test code = 28125) (NOTE) Hepatitis B sero logy shows no evidence of acute hepatitis B andno indication of exposure to hepatitis B virus in the previous onur eight months. INTERPRETATION HEPATITIS C: (test code = 75624) (NOTE) Hepatitis C sero logy shows no evidence of exposure to hepatitisC virus at this time. It can take up to 12 months after exposure tothe hepatitis C virus for antibodies to become detectable in the blood in certain patients. UNLESS OTHERWISE INDICATED, ALL TESTING PERFORMED AT [facility] [address] [place] [address] [employer] LINEMAN: GABY MALDONADO M.D. [place] NUMBER [id number] [facility] [place] [id number] HIV 1/2 4TH GEN, RFLX [id number] 04:35:18* Test Item Value Reference Range Interpretation Comme nts HIV 1/2 4TH GEN, RFLX CONF ( test code = 3514) NON-REACTIVE NON-REACTIVE RPR REFLEX TO T. PALLIDUM - [id number] 03:16:34* Test Item Value Reference Range Interpretation Comme nts RPR (test code = 72663) NON-REACTIVE NON-REACTIVE RPR TITER (test code = 3500) NOT INDIC. TITER NOT INDIC. POCT Molecular [id number] 23:10:47* Test Item Value Reference Range Interpretation Comme nts POCT Molecular FluA (test co de = 45033-1) Negative Negative POCT Molecular FluB (test co de = 86195-5) Negative Negative Lab Interpretation (test cod e = 84444-4) Normal [facility] Molecular [id number] 23:10:47* Test Item Value Reference Range Interpretation Comme nts POCT Molecular FluA (test co de = 73058-9) Negative Negative POCT Molecular FluB (test co de = 69355-0) Negative Negative Lab Interpretation (test cod e = 03425-9) Normal [facility] SARS-COV-2 ANTIGEN (BINAX NOW)2023-10-16 23:05:00* Test Item Value Reference Range Interpretation Comme nts POCT SARS-COV-2 ANTIGEN (gladys t code = 35404-4) Positive Not Detected A On board controls acceptable with C Line (test code = 3574) Yes Lab Interpretation (test cod e = 05300-1) Abnormal [facility] SARS-COV-2 ANTIGEN (BINAX NOW)2023-10-16 23:05:00* Test Item Value Reference Range Interpretation Comme nts POCT SARS-COV-2 ANTIGEN (gladys t code = 45235-6) Positive Not Detected A On board controls acceptable with C Line (test code = 3574) Yes Lab Interpretation (test cod e = 78056-6) Abnormal [facility] MOLECULAR [id number] 22:59:34* Test Item Value Reference Range Interpretation Comme nts POCT Molecular Strep (test c ode = 53893-1) Negative Negative Lab Interpretation (test cod e = 72667-2) Normal [facility] MOLECULAR [id number] 22:59:34* Test Item Value Reference Range Interpretation Comme nts POCT Molecular Strep (test c ode = 18066-9) Negative Negative Lab Interpretation (test cod e = 79558-0) Normal [facility] SARS-COV-2 ANTIGEN (BINAX NOW)2023-02-07 15:14:00* Test Item Value Reference Range Interpretation Comme nts POCT SARS-COV-2 ANTIGEN (test code = 13240-9) Not Detected Not Detected On board controls acceptable with C Line (test code = 3574) Yes GALLO (test code = GALLO) accurate developme nt and interpretation of all internal controls Lab Interpretation (test code = 26241-2) Normal [facility] MOLECULAR [id number] 15:10:42* Test Item Value Reference Range Interpretation Comme nts POCT Molecular FluA (test co de = 78799-1) Positive Negative A Lab Interpretation (test cod e = 80322-1) Abnormal [facility] MOLECULAR [id number] 14:59:48* Test Item Value Reference Range Interpretation Comme nts POCT Molecular Strep (test c ode = 13597-5) Negative Negative Lab Interpretation (test cod e = 83217-3) Normal [facility], [id number] 22:34:41* Test Item Value Reference Range Interpretation Comme nts PREG SERUM (test code = 7417643859) Negative GALLO (test code = GALLO) Less than 10 IU/L. ?If low titer or ectopic is suspected, resubmit specimen in 48-72 hours. [id number] 22:33:51* Test Item Value Reference Range Interpretation Comments TROPONIN I (test code = 9752283287) 0.002 ng/mL See_Comment [Automated message] The system [...] of biotin. Lab Interpretation (test code = 56736-4) Normal [facility] Hospital[facility]ALICYLATE2022-10-19 22:27:20 SALICYLATE<10mg/L1 5:27 PM [facility] SERVICESPOMERADO HOSPITALTherapeutic Range: ? Analgesic and Antipyretic Use ? 20-100 mg/L ? ? Anti-Inflammatory Use ? 100-250 mg/L Toxic Range: ? Greater than 300 mg/LUnB[facility] [id number] 22:27:15ALCOHOL<10mg/dL08/07/2022 5:27 PM [facility] SERVICESPOMERADO HOSPITALToxic Greater than or equal to 80 mg/dL. NOTE: Whole blood values are approximately 10% to 15% lower than serum and plasma.[facility] HospitalACETAMINOPHEN2022-10-19 22:27:10* Test Item Value Reference Range Interpretation Comme nts ACETAMINOP (test code = 9556563281) 10-30 L GALLO (test code = GALLO) Toxic: Greater sapphire n 200 ug/mL @ 4 hour post ingestion or greater than 50 ug/mL @ 12 hour post ingestion Lab Interpretation (test code = 96191-6) Abnormal [facility] (NA, K, CL, CO2, GLUCOSE, BUN, CREATININE, CA)2022-08-07 22:23:27* Test Item Value Reference Range Interpretation Comme nts NA (test code = 5508222609) 138 mmol/L 135-145 K (test code = 7187227646) 3.9 mmol/L 3.5-5 CL (test code = 6160787943) 102 mmol/L 98-108 CO2 TOTAL (test code = 7478388370) 27 mmol/L 23-31 AGAP (test code = 5450408998) 2-16 BUN (test code = 4759110005) 16 mg/dL 7-23 GLUCOSE (test code = 4851265784) 87 mg/dL 70-110 CREATININE (test code = 1454865623) 0.69 mg/dL 0.5-1.04 CALCIUM (test code = 7029246666) 9.7 mg/dL 8.6-10.6 eGFR (test code = 1980177719) mL/min/1.73m2 GALLO (test code = GALLO) Association [...] or abnormalities in imaging tests). [facility] HospitalCREATINE [id number] 22:23:27* Test Item Value Reference Range Interpretation Comme nts CK (test code = 8408977890) 45 U/L 33-194 Lab Interpretation (test cod e = 52451-8) Normal [facility] HospitalHEPATIC FUNCTION PANEL (52530) (ALB,T.PRO,BILI T,BU/BC,ALT,AST,ALK PHOS)2022-08-07 22:23:27* Test Item Value Reference Range Interpretation Comme nts TOTAL BILI (test code = 3757981427) 0.7 mg/dL 0.1-1.1 BILI UNCON (test code = 9357547622) 0.3 mg/dL 0.1-1.1 BILI CONJ (test code = 5713528759) 0.0 mg/dL 0-0.3 T PROTEIN (test code = 5262486704) 7.4 g/dL 6.3-8.2 ALBUMIN (test code = 1265900337) 4.4 g/dL 3.5-5 ALK PHOS (test code = 7239091636) 80 U/L 34-122 ALTv (test code = 1742-6) 15 U/L 5-35 AST(SGOT) (test code = 4979957287) 15 U/L 13-40 Lab Interpretation (test cod e = 56951-5) Normal [facility] HospitalLIPASE2022-10-19 22:23:27* Test Item Value Reference Range Interpretation Comme nts LIPASE (test code = 2078062322) 51 U/L 0-220 Lab Interpretation (test cod e = 51418-7) Normal [facility] HospitalCBC WITH [id number] 22:06:06* Test Item Value Reference Range Interpretation Comme nts WBC (test code = 6690-2) See_Comment H [Automated Tradiioa ge] The system which generated this result [...] g/dL 31.6-35.1 H RDW-SD (test code = 13024-2) 40.6 fL 39-49.9 RDW-CV (test code = 788-0) 13.1 % 12-15.5 PLT (test code = 777-3) See_Comment H [Automated messa ge] The system which generated this result transmitted reference range: 166 - 358 10*3/?L. The reference range was not used to interpret this result as normal/abnormal. MPV (test code = 40599-0) 10.1 fL 9.5-12.9 NRBC/100 WBC (test code = 3508742047) See_Comment [Automated Kantox ssage] The system which generated this result transmitted reference range: 0.0 - 10.0 /100 WBCs. The reference range was not used to interpret this result as normal/abnormal. NRBC x10^3 (test code = 8573931591) See_Comment [Automated Tradiioa ge] The system which generated this result transmitted reference range: 10*3/?L. The reference range was not used to interpret this result as normal/abnormal. GRAN MAT (NEUT) % (test code = 770-8) 62.7 % IMM GRAN % (test code = 5738464018) 0.40 % LYMPH % (test code = 736-9) 25.7 % MONO % (test code = 5905-5) 7.8 % EOS % (test code = 713-8) 2.8 % BASO % (test code = 706-2) 0.6 % GRAN MAT x10^3(ANC) (test code = 2967166731) 8.40 10*3/uL 1.88-7.09 H IMM GRAN x10^3 (test code = 9434469103) 0.06 10*3/uL 0-0.06 LYMPH x10^3 (test code = 731-0) 3.44 10*3/uL 1.32-3.29 H MONO x10^3 (test code = 742-7) 1.04 10*3/uL 0.33-0.92 H EOS x10^3 (test code = 711-2) 0.38 10*3/uL 0.03-0.39 BASO x10^3 (test code = 704-7) 0.08 10*3/uL 0.01-0.07 H Lab Interpretation (test code = 09309-7) Abnormal [facility] HospitalSARS-CoV-2 (COVID-19) by RT-PCR (HIGH RISK) 2021-06-29 00:00:00* Test Item Value Reference Range Interpretation Comme nts SARS-CoV-2 INTERPRETATION (t est code = 88547) NEGATIVE SOURCE (test code = 42457) NOT SPECIFIED COMPREHENSIVE METABOLIC [id number] 00:00:00* Test Item Value Reference Range Interpretation Comme nts GLUCOSE (test code = 2217) 92 MG/DL BUN (test code = 2208) 11 MG/DL CREATININE (test code = 2214) 0.80 MG/DL eGFR AMER. (test cod e = 38581) 108 ML/MIN/1.73 eGFR NON- AMER. (test code = 22369) 94 ML/MIN/1.73 CALC BUN/CREAT (test code = [...] ALT (test code = 2219) 11 U/L [id number] 00:00:00* Test Item Value Reference Range Interpretation Comme nts AMYLASE (test code = 2205) 52 U/L [id number] 00:00:00* Test Item Value Reference Range Interpretation Comme nts LIPASE (test code = 2058) 20 U/L CULTURE, URINE [ADDED]2021-01-20 00:00:00* Test Item Value Reference Range Interpretation Comme nts CULTURE, URINE (test code = 31690) SPECIMEN NUMBER: [id number] HIV AB/AG COMBO RFLX [id number] 00:00:00* Test Item Value Reference Range Interpretation Comme nts HIV 1/2 4TH GEN, RFLX CONF ( test code = 3514) NON-REACTIVE ACUTE HEPATITIS [id number] 00:00:00* Test Item Value Reference Range Interpretation Comme nts HEPATITIS A IgM (test code = 59991) NON-REACTIVE HEPATITIS B CORE IgM (test c ode = 4644) NON-REACTIVE HEPATITIS B SURF AG (test co de = 2739) NON-REACTIVE HEPATITIS C ANTIBODY (test c ode = 4610) NON-REACTIVE INTERPRETATION HEPATITIS A: (test code = 2552) (NOTE) INTERPRETATION HEPATITIS B: (test code = 59431) (NOTE) INTERPRETATION HEPATITIS C: (test code = 09899) (NOTE) CHLAMYDIA, AMPLIFIED, [id number] 00:00:00* Test Item Value Reference Range Interpretation Comme nts CHLAMYDIA, NAAT (test code = 01106) NEGATIVE GC, AMPLIFIED, [id number] 00:00:00* Test Item Value Reference Range Interpretation Comme nts GONORRHEA, NAAT (test code = 37711) NEGATIVE [id number] 00:00:00* Test Item Value Reference Range Interpretation Comme nts RPR RESULT (test code = 3501) NON-REACTIVE RPR TITER (test code = 3500) NOT INDIC. TITER VAGINAL PATHOGENS DNA [id number] 00:00:00* Test Item Value Reference Range Interpretation Comme nts CONRAD SPECIES (test code = 37346) NEGATIVE G. VAGINALIS (test code = 90820) POSITIVE T. VAGINALIS (test code = 63318) NEGATIVE CULTURE, [id number] 00:00:00* Test Item Value Reference Range Interpretation Comme nts CULTURE, URINE (test code = 93474) SPECIMEN NUMBER: [id number] CULTURE, [id number] 00:00:00* Test Item Value Reference Range Interpretation Comme nts CULTURE, URINE (test code = 78732) SPECIMEN NUMBER: [id number] SARS-CoV-2 (COVID-19) by RT-PCR (HIGH RISK)2020-11-03 00:00:00* Test Item Value Reference Range Interpretation Comme nts SARS-CoV-2 INTERPRETATION (t est code = 52428) NEGATIVE SOURCE (test code = 71702) NOT SPECIFIED CHLAMYDIA, AMPLIFIED, [id number] 00:00:00* Test Item Value Reference Range Interpretation Comme nts CHLAMYDIA, NAAT (test code = 87259) NEGATIVE GC, AMPLIFIED, [id number] 00:00:00* Test Item Value Reference Range Interpretation Comme nts GONORRHEA, NAAT (test code = 90222) NEGATIVE VAGINAL PATHOGENS DNA [id number] 00:00:00* Test Item Value Reference Range Interpretation Comme nts CONRAD SPECIES (test code = 38165) NEGATIVE G. VAGINALIS (test code = 08536) POSITIVE T. VAGINALIS (test code = 60595) NEGATIVE HIV AB/AG COMBO RFLX [id number] 00:00:00* Test Item Value Reference Range Interpretation Comme nts HIV 1/2 4TH GEN, RFLX CONF ( test code = 3514) NON-REACTIVE PAP TEST, THINPREP, [id number] 00:00:00* Test Item Value Reference Range Interpretation Comme nts SOURCE: (test code = 8001) Cervical/Endocervical SLIDES: (test code = 8011) 1 LMP: (test code = 8021) 05/11/2020 SPECIMEN ADEQUACY: (test code = 39797) (NOTE) INTERPRETATION: (test code = 06812) NILM/NO EPITH. ABNORMALITY;SEE BELOW INTERNATIONAL GUEST COORDINATOR: (test code = 8101) JACKSON Mao(ASCP) LOCATION: (test code = 11290) (NOTE) CPT: (test code = 8140) (NOTE) VAGINAL PATHOGENS DNA [id number] 00:00:00* Test Item Value Reference Range Interpretation Comme nts CONRAD SPECIES (test code = 79061) NEGATIVE G. VAGINALIS (test code = 11010) NEGATIVE T. VAGINALIS (test code = 65341) NEGATIVE ACUTE HEPATITIS [id number] 00:00:00* Test Item Value Reference Range Interpretation Comme nts HEPATITIS A IgM (test code = 01073) NON-REACTIVE HEPATITIS B CORE IgM (test c ode = 4644) NON-REACTIVE HEPATITIS B SURF AG (test co de = 2739) NON-REACTIVE HEPATITIS C ANTIBODY (test c ode = 4675) NON-REACTIVE INTERPRETATION HEPATITIS A: (test code = 2552) (NOTE) INTERPRETATION HEPATITIS B: (test code = 49070) (NOTE) INTERPRETATION HEPATITIS C: (test code = 95398) (NOTE) HPV HIGH RISK WITH GENOTYPE, [id number] 00:00:00* Test Item Value Reference Range Interpretation Comme nts HPV HIGH RISK INTERP (test c ode = 97433) NEGATIVE HPV 16 (test code = 49635) NEGATIVE HPV 18 (test code = 36340) NEGATIVE HPV, HR, OTHER GENOTYPES (te st code = 66311) NEGATIVE CHLAMYDIA, AMPLIFIED, [id number] 00:00:00* Test Item Value Reference Range Interpretation Comme nts CHLAMYDIA, TMA (test code = 39818) NEGATIVE GC, AMPLIFIED, [id number] 00:00:00* Test Item Value Reference Range Interpretation Comme nts GONORRHEA, TMA (test code = 97029) NEGATIVE [id number] 00:00:00* Test Item Value Reference Range Interpretation Comme nts RPR RESULT (test code = 3501) NON-REACTIVE RPR TITER (test code = 3500) NOT INDIC. TITER [id number] 00:00:00* Test Item Value Reference Range Interpretation Comme nts PROLACTIN (test code = 2800) 11.0 NG/ML [id number] 00:00:00* Test Item Value Reference Range Interpretation Comme nts TSH, THIRD GENERATION (test code = 2821) 0.793 UIU/ML Notes Date/Time Note Provider Source 2024-06-10 10:22:22 Recent Visits Date Type Provider Dept 01/07/24 Office Visit Laura Beltran MD [facility] 10/16/23 Office Visit Gaby Palma MD [facility] 08/11/23 Office Visit Laura Beltran MD [facility] 02/03/23 Office Visit Laura Beltran MD [facility] Showing recent visits within past 540 days with a meds authorizing provider and meeting all other requirements Future Appointments No visits were found meeting these conditions. Showing future appointments within next 150 days with a meds authorizing provider and meeting all other requirements Last refill was Disp Refills Start End AMARJIT dextroamphetamine-amphetamine (ADDERALL) 30 mg tablet 60 tablet 0 05/12/2024 [facility] 2024-06-10 09:15:51 Anne Marie Durham is a 43 year old female and is calling for a refill on her dextroamphetamine-amphetamine (ADDERALL) 30 mg tablet. [id number] - [place] - [address] AT [facility] & [place] [place] [address] [place] [address] [facility] 2024-05-12 15:09:01 Images from the original note were not included. Requested Renewals dextroamphetamine-amphetamine (ADDERALL) 30 mg tablet Possible duplicate: Hover to review recent actions on this medication Sig: Take 1 tablet by mouth in the morning and 1 tablet in the evening. Disp: 60 tablet Refills: 0 Start: 05/12/2024 Earliest Fill Date: 05/12/2024 Class: eRX Non-formulary For: Attention deficit disorder (ADD) in adult Last ordered: 3 weeks ago (04/15/2024) by aLura Beltran MD Provider Review Required Zltwvp39/ 02:31 PM Protocol Details This refill cannot be delegated Valid encounter within last 12 months To be filled at: [id number] - [place] - [address] AT [facility] Recent Visits Date Type Provider Dept 01/07/24 Office Visit Laura Beltran MD [facility] 10/16/23 Office Visit Gaby Palma MD [facility] 08/11/23 Office Visit Laura Beltran MD [facility] 02/03/23 Office Visit Laura Beltran MD [facility] 12/06/22 Office Visit Trena Wyatt PA [facility] 11/20/22 Office Visit Vaughn Tan FNP [facility] Showing recent visits within past 540 days with a meds authorizing provider and meeting all other requirements Future Appointments No visits were found meeting these conditions. Showing future appointments within next 150 days with a meds authorizing provider and meeting all other requirements Sirena Crowe LVN [facility] 2024-05-12 14:28:49 Anne Marie Druham is a 43 year old female and is calling for a refill on her medication dextroamphetamine-amphetamine (ADDERALL) 30 mg tablet. Pt stated that her local pharmacies are out of the 30 mg tablets and is asking if the medication can be changed this 1 time to 25 mg with a 90 day supply. [facility] #[id number] - [address] AT [facility] [address] [place] [address] [facility] 2024-05-05 15:51:06 Notified Patient T [facility] 2024-05-05 14:41:43 No I do not prescribe chronic pain medications V T [facility] 2024-05-05 08:59:04 Anne Marie Durham is a 43 year old female. Patient is calling stating that she had lost her insurance coverage. Patient was instructed by her pain management provider Dr. Barakat to contact Dr. Beltran to see if the provider would be willing to start prescribing the medications Tramadol 50mg or Hydrocodone 5-325 mg. Patient stated to see her Pain Clinic provider iits going to cost her $400 per visit. Blanca Olmos [facility] 2024-05-05 08:34:21 Pt is wanting to know if Dr Beltran can fill a new script for tramadol or hydro- codone an says that Dr Barakat said that Dr Beltran can fill due to his office visit costing $400 would be cheaper to see Dr Beltran. T [facility] 2024-04-14 09:45:44 Images from the original note were not included. Requested Renewals dextroamphetamine-amphetamine (ADDERALL) 30 mg tablet Sig: Take 1 tablet by mouth in the morning and 1 tablet in the evening. Disp: 60 tablet Refills: 0 Start: 04/14/2024 Earliest Fill Date: 04/14/2024 Class: eRX For: Attention deficit disorder (ADD) in adult Last ordered: 1 month ago (03/08/2024) by Laura Beltran MD Provider Review Required Lrgvpu8804/14/2024 09:33 AM Protocol Details This refill cannot be delegated Valid encounter within last 12 months To be filled at: [facility][id number] - [place], [place] - [address] AT [facility] MARY ANNE & LUCIA Recent Visits Date Type Provider Dept 01/07/24 Office Visit Laura Beltran MD [facility] 10/16/23 Office Visit Gaby Palma MD [facility] 08/11/23 Office Visit Laura Beltran MD [facility] 02/03/23 Office Visit Laura Beltran MD [facility] 12/06/22 Office Visit Trena Wyatt PA [facility] 11/20/22 Office Visit Vaughn Tan FNP [facility] Showing recent visits within past 540 days with a meds authorizing provider and meeting all other requirements Future Appointments No visits were found meeting these conditions. Showing future appointments within next 150 days with a meds authorizing provider and meeting all other requirements Sirena Crowe LVN [facility] 2024-03-08 10:07:44 Images from the original note were not included. Requested Renewals dextroamphetamine-amphetamine (ADDERALL) 30 mg tablet Sig: Take 1 tablet by mouth in the morning and 1 tablet in the evening. Disp: 60 tablet Refills: 0 Start: 03/08/2024 Earliest Fill Date: 03/08/2024 Class: eRX For: Attention deficit disorder (ADD) in adult Last ordered: 3 weeks ago (02/11/2024) by Laura Beltran MD Provider Review Required [id number]/08/2024 10:01 AM Protocol Details This refill cannot be delegated Valid encounter within last 12 months To be filled at: [facility] #[id number] - [place], [place] - [address] AT [facility] MARY ANNE & BRADY Recent Visits Date Type Provider Dept 01/07/24 Office Visit Laura Beltran MD [facility] 10/16/23 Office Visit Gaby Palma MD [facility] 08/11/23 Office Visit Laura Beltran MD [facility] 02/03/23 Office Visit Laura Beltran MD [facility] 12/06/22 Office Visit Trena Wyatt PA [facility] 11/20/22 Office Visit Vaughn Tan, CLAUDIA [facility] 09/25/22 Office Visit Laura Beltran MD [facility] Showing recent visits within past 540 days with a meds authorizing provider and meeting all other requirements Future Appointments No visits were found meeting these conditions. Showing future appointments within next 150 days with a meds authorizing provider and meeting all other requirements Sirena Crowe LVN [facility] 2024-02-11 14:59:40 Recent Visits Date Type Provider Dept 01/07/24 Office Visit Laura Beltran MD [facility] 10/16/23 Office Visit Gaby Palma MD [facility] 08/11/23 Office Visit Laura Beltran MD [facility] 02/03/23 Office Visit Laura Beltran MD [facility] 12/06/22 Office Visit Trena Wyatt PA [facility] 11/20/22 Office Visit Vaughn Tan, CLAUDIA [facility] 09/25/22 Office Visit [...] Last refill was dextroamphetamine-amphetamine (ADDERALL) 30 mg tablet 60 tablet 0 01/05/2024 -- -- Sig: Take 1 tablet by mouth in the morning and 1 tablet in the evening. [facility] [employer] 2024-02-11 14:42:36 Copied from [facility] #[id number]. Topic: Clinical - Order >> Feb 11, 2024 2:41 PM Patient Garment Presser wrote: Anne Marie Durham is a 43 year old female is calling in refill for dextroamphetamine-amphetamine 30 mg tablet (AdderalL) [facility] #[id number] - [place], [place] - [address] [facility] AT [facility] [address] Patient is completely out [facility] 2024-01-01 16:51:37 Images from the original note were not included. Requested Renewals dextroamphetamine-amphetamine (ADDERALL) 30 mg tablet Possible duplicate: Hover to review recent actions on this medication Sig: Take 1 tablet by mouth in the morning and 1 tablet in the evening. Disp: 60 tablet Refills: 0 Start: 01/01/2024 Earliest Fill Date: 01/01/2024 Class: eRX Non-formulary For: Attention deficit disorder (ADD) in adult Last ordered: 3 weeks ago (12/11/2023) by Laura Beltran MD Provider Review Required Udlkbg8901/01/2024 04:48 PM Protocol Details This refill cannot be delegated Valid encounter within last 12 months To be filled at: [facility][id number] [facility] [address] [facility] [place] Recent Visits Date Type Provider Dept 10/16/23 Office Visit Gaby Palma MD [facility] 08/11/23 Office Visit Laura Beltran MD [facility] 02/03/23 Office Visit Laura Beltran MD [facility] [...] authorizing provider and meeting all other requirements Sirena Crowe LVN [facility] 2024-01-01 16:46:45 Copied from [facility] #[id number]. Topic: Clinical - Order >> Jan 01, 2024 4:46 PM Patient Garment Presser wrote: Anne Marie Durham is a 43 year old female is calling in refill for : dextroamphetamine-amphetamine 30 mg tablet (AdderalL) [facility][id number] - [place], [place] - [address] AT [facility] [place] [address] [facility] [id number] [facility] 2023-12-24 09:00:54 Anne Marie Durham is a 43 year old female Patient requesting referral for ophthalmology and dermatology. Please advise. R ENERGY SYSTEM INSTALLER HELPER Saulo Carver [facility] 2023-12-11 15:06:12 Pt calling to report that she has contacted several pharmacies and has been told she will need to request a change in her Adderall medication to 60mg capsules or to 20mg tablets (disp 90) in order for her current pharmacy to fill. Pt states she does not want generic medication R ENERGY SYSTEM INSTALLER HELPER Eliza Landon [facility] 2023-12-11 11:24:13 Anne Marie Durham is a 43 year old female Patient calling asking if Rx dextroamphetamine-amphetamine (ADDERALL) 30 mg tablet ca be sent to [facility] in [place] instead. Please advise. R ENERGY SYSTEM INSTALLER HELPER Kaya Knight [facility] 2023-12-09 09:42:25 Anne Marie Durham is a 43 year old female Pt states that her pharmacy has the ADHD medication on back order, please resubmit to: [facility], [place] Delatorre [facility] 2023-12-08 14:58:12 Images from the original note were not included. Requested Renewals dextroamphetamine-amphetamine (ADDERALL) 30 mg tablet Sig: Take 1 tablet by mouth in the morning and 1 tablet in the evening. Disp: 60 tablet Refills: 0 Start: 12/08/2023 Earliest Fill Date: 12/08/2023 Class: eRX Non-formulary For: Attention deficit disorder (ADD) in adult Last ordered: 4 weeks ago (11/10/2023) by Laura Beltran MD Provider Review Required [id number]/08/2023 02:13 PM Protocol Details This refill cannot be delegated Valid encounter within last 12 months To be filled at: [facility] #[id number] [place], [place] - [address] [place], [place] [address] AT [facility] [employer] Recent Visits Date Type Provider Dept 10/16/23 Office Visit Gaby Palma MD [facility] 08/11/23 Office Visit Laura Beltran MD [facility] 02/03/23 Office Visit Laura Beltran MD [facility] [...] and meeting all other requirements Future Appointments Date Type Provider Dept 12/15/23 Appointment Laura Beltran MD [facility] Showing future appointments within next 150 days with a meds authorizing provider and meeting all other requirements R ENERGY SYSTEM INSTALLER HELPER Sirena Crowe LVN [facility] 2023-12-08 14:12:34 Anne Marie Durham is a 43 year old female Pt called requesting a refill. Pt is out of medication. [facility] #[id number] - [place], [place] - [facility] [employer] AT [facility] [address] [facility] 2023-12-04 12:13:53 1.Anne Marie Durham is a 43 year old female Pt is requesting a referral to Dr Gurjit Romeo, [facility] in [place]. [phone] First visit consultation. No appt currently per pt til referral placed. 2. Pt is requesting brand name of Teva- due to the dextroamphetamine-amphetamine (ADDERALL) 30 mg tablet does not like. [facility] 2023-11-27 08:27:14 error Deal [facility] 2023-11-10 11:09:04 Recent Visits Date Type Provider Dept 10/16/23 Office Visit Gaby Palma MD [facility] 08/11/23 Office Visit Laura Beltran MD [facility] 02/03/23 Office Visit Laura Beltran MD [facility] [...] and meeting all other requirements Future Appointments Date Type Provider Dept 12/15/23 Appointment Laura Beltran MD [facility] Showing future appointments within next 150 days with a meds authorizing provider and meeting all other requirements Patient is wanting to with back to 30 mg adderall [facility] 2023-11-10 09:11:44 Anne Marie Durham is a 43 year old female Pt called following up on request. Please advise. Villegas [facility] 2023-11-08 16:34:25 Anne Marie Durham is a 43 year old female Pt calling to request a prescription of her correct dosage of medication [facility] now has instock the 30mg pills dextroamphetamine-amphetamine 30 mg tablet (AdderalL) [id number] [address] [facility] [address] [facility] [address] [facility] [phone] [place] [facility] 2023-10-08 13:26:52 Anne Marie Durham is a 43 year old female Pt states that her pharmacy doesn't have dextroamphetamine-amphetamine 30 mg tablet (AdderalL) in stock but they do have dextroamphetamine-amphetamine 20 mg tablet (AdderalL) She is requesting the dosage be changed to 20mg with an adjusted quantity to equal her current 30mg dosage. She states she currently takes two 30mg pills daily. Please contact pt if necessary [phone] (home) [facility] #[id number] [place], [place] - [address] AT [facility] [address] [place] [facility] 2023-07-03 11:58:29 Formatting of this n ote is different from the original. Recent Visits Date Type Provider Dept 02/03/23 [...] Last refill was dextroamphetamine-amphetamine (ADDERALL) 30 mg tablet 60 tablet 0 06/09/2023 [facility] 2023-07-03 11:50:58 Formatting of this n ote might be different from the original. Anne Marie Durham is a 42 year old female Pt calling to have refill on medication and has 10 supplements left. dextroamphetamine-amphetamine (ADDERALL) 30 mg tablet Please advise [facility] #[id number] [place] - [address] AT [facility] [address] [facility] [place] [address] [facility] 2023-06-16 08:03:57 Formatting of this n ote might be different from the original. Patient presented to clinic with c/o face [...] understanding. Sirena Crowe LVN 06/16/2023 8:08 AM Sirena Crowe LVN [facility] 2023-06-09 10:48:12 Formatting of this n ote is different from the original. Recent Visits Date Type Provider Dept 02/03/23 [...] Last refill was dextroamphetamine-amphetamine (ADDERALL) 30 mg tablet 60 tablet 0 05/05/2023 [facility] 2023-06-09 09:19:15 Formatting of this n ote might be different from the original. Patient is requesting a refill. [facility] #[id number] - [place] [address] AT [facility] [address] T [facility]"
[2024-06-23] MEDS ORDERED: LORazepam 2 MG/ML VIAL ONE (16:16)
[2024-06-23 16:28] LABS: Absolute Eosinophils 0.2 K/uL (0-0.5); Absolute Lymphocytes (CBC) 3.3 K/uL (0.7-4.9); Absolute Monocytes 0.6 K/uL (0.1-1.3); Absolute Neutrophil 4.7 K/uL (1.8-8.0); Basophils % 0.2 % (0-1.3); Eosinophils % 2.7 % (0-4.4); Hematocrit 39.5 % (36.0-45.0); Hemoglobin 13.7 g/dL (12.0-15.0); Lymphocytes % 37.7 % (15.3-44.8); MCH 31.3 pg (27.0-35.0); MCHC 34.6 g/dL (32.0-36.0); MCV 90.4 fL (80-100); MPV 8.5 fL (7.6-11.3); Monocytes % 6.6 % (3.3-12.3); Neutrophils % 52.8 % (41.7-73.7); Nucleated Red Blood Cells % 0.1 % (0-0); Platelets 359 thou/uL (152-406); RBC Red Blood Cell Count 4.36 M/uL (3.86-4.86); Red Cell Distribution Width 13.4 % (12.1-15.2)
[2024-06-23 17:01] LABS: ALT/SGPT 19 U/L (13-56); Albumin 4.1 g/dL (3.4-5.0); Albumin/Globulin Ratio 1.1 (1.1-1.8); Alkaline Phosphatase 67 U/L (45-117); BUN Blood Urea Nitrogen 21 mg/dL (7-18); Bicarbonate 24 mEq/L (21-32); Bilirubin Total 0.5 mg/dL (0.2-1.0); Globulin 3.7 g/dL (2.3-3.5); Glomerular Filtration Rate 79 ml/min (=/>90); Glucose Level 143 mg/dL (74-106); Protein, Total 7.8 g/dL (6.4-8.2); Sodium Level 137 mEq/L (136-145)
[2024-06-23 17:02] LABS: AST/SGOT 13 U/L (15-37)
[2024-06-23 19:14] LABS: Specific Gravity 1.027 (1.005-1.030)
[2024-06-23 19:15] LABS: Specific Gravity 1.027 (1.005-1.030); Urine Bacteria None Seen /HPF (<20); Urine Bilirubin NEGATIVE (Negative); Urine Blood 1+ (Negative); Urine Clarity Extremely Turbid (Clear); Urine Color Yellow (Yellow); Urine Culture Reflex Order NOT NEEDED; Urine Glucose NEGATIVE (Negative); Urine Ketones TRACE (Negative); Urine Microscopic Reflex YN ORDER UMIC; Urine Mucus 1+ /HPF (None Seen); Urine Nitrite NEGATIVE (Negative); Urine Protein TRACE (Negative); Urine Urobilinogen Normal (Normal); Urine WBC <5 /HPF (<5)
[2024-06-23 19:20] LABS: Barbiturates NEGATIVE (NEGATIVE); Benzodiazepines NEGATIVE (NEGATIVE); Cocaine NEGATIVE (NEGATIVE); METHAMPHETAM POSITIVE (NEGATIVE); Methadone NEGATIVE (NEGATIVE); Opiates NEGATIVE (NEGATIVE); Phencyclidine NEGATIVE (NEGATIVE); THC Cannibis NEGATIVE (NEGATIVE)
[2024-06-23] MEDS ORDERED: NICOTINE 21 MG/PAT TD ONE (19:39)
--- NOTE | 2024-06-23 19:57 | ER ---
Nurse's Notes [facility] Name: Anne Marie Cruz Age: 43 yrs Sex: Female : 1980 Arrival Date: 06/23/2024 Time: 15:31 Bed 16 Private MD: Diagnosis: Auditory hallucinations;Bipolar disorder, current episode manic severe with psychotic features Presentation: 06/23 15:36 Chief complaint: Patient states: "they're doing all kinds of syringes around here and kc6 using hydrocdeine. I'm a nice person but they called the supervisor electric on me." pt denies SI or HI in triage. Coronavirus screen: At this time, the client does not indicate any symptoms associated with coronavirus-19. Ebola Screen: No symptoms or risks identified at this time. Initial Sepsis Screen: Does the patient meet any 2 criteria? Altered Mental Status. HR > 90 bpm. Does the patient have a suspected source of infection? No. Patient's initial sepsis screen is negative. Risk Assessment: Do you want to hurt yourself or someone else? Patient reports no desire to harm self or others. Onset of symptoms was June 23, 2024. 15:36 Acuity: PARISH 2 kc6 15:36 Method Of Arrival: Law Enforcement: [place] [employer] kc6 Triage Assessment: 15:42 General: Appears in no apparent distress. comfortable, well groomed, well developed, kc6 Behavior is calm, cooperative, appropriate for age. Pain: Denies pain. Neuro: Level of Consciousness is awake, alert, obeys commands, Oriented to person, place, time, situation, Appropriate for age. 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 - Infectious Disease History:: Denies. - Social history:: Smoking status: Patient reports the use of cigarette tobacco products, smokes two packs cigarettes per day. Screenin:44 [facility] ED Fall Risk Assessment (Adult) History of falling in the last 3 months, mb9 including since admission No falls in past 3 months (0 pts) Confusion or Disorientation Yes (5 pts) Intoxicated or Sedated No (0 pts) Impaired Gait No (0 pts) Mobility Assist Device Used No (0 pt) Altered Elimination No (0 pt) Score/Fall Risk Level 3 or more points = High Risk Oriented to surroundings, Maintained a safe environment, Educated pt \\T\\ family on fall prevention, incl call for assistance when getting out of bed, Assessed \\T\\ reinforced patient's understanding of fall precautions. Abuse screen: Denies threats or abuse. Nutritional screening: No deficits noted. Tuberculosis screening: No symptoms or risk factors identified. Assessment: 16:03 General: Appears in no apparent distress. Behavior is restless. General: Speech is mb9 rapid. PT talking to self in room. Pt denies SI and HI. Pain: Denies pain. Neuro: Level of Consciousness is awake, obeys commands, Oriented to person, place, time, situation. Cardiovascular: Patient's skin is warm and dry. Rhythm is sinus tachycardia. Respiratory: Airway is patent Respiratory effort is even, unlabored, Respiratory pattern is regular, symmetrical. GI: No signs and/or symptoms were reported involving the gastrointestinal system. : No signs and/or symptoms were reported regarding the genitourinary system. EENT: No signs and/or symptoms were reported regarding the EENT system. Derm: Skin is pink, warm \\T\\ dry. Musculoskeletal: Range of motion: intact in all extremities. 17:45 Reassessment: Patient appears in no apparent distress at this time. No changes from mb9 previously documented assessment. 19:00 Reassessment: Pts mom and sister at bedside. mb9 19:00 General: Appears in no apparent distress. Behavior is anxious, restless. rg5 19:00 Pain: Denies pain. Neuro: Level of Consciousness is awake, obeys commands, Oriented to rg5 person, place, time, situation. Cardiovascular: Patient's skin is warm and dry. Respiratory: Airway is patent Respiratory effort is even, unlabored, Respiratory pattern is regular, symmetrical. GI: No signs and/or symptoms were reported involving the gastrointestinal system. Abdomen is round. : No signs and/or symptoms were reported regarding the genitourinary system. EENT: No signs and/or symptoms were reported regarding the EENT system. Derm: Skin is intact, Skin is dry, Skin is normal. Musculoskeletal: Range of motion: intact in all extremities. 19:45 Reassessment: Pt stated to this nurse " I want to leave this world, I wanted to walk in jb4 front of a car and see if it would hit me." Family is present in the room when comments were made. Pt would respond saying " I am not suicidal, I just don't want to be in this world and I don't care if the car hit me." Per Jonelle, airbrush artist technical, Pt reportedly mentioned that she wanted to take 1000mg of Fentanyl to overdose and see if it would kill her. Per family, Pt jumped out of their car to run in traffic to try and get hit telling them to tell her kids and rest of the family that she loves them. 21:15 Reassessment: Patient and/or family updated on plan of care and expected duration. Pain rg5 level reassessed. Patient denies pain at this time. Respiratory: Airway is patent Trachea midline Respiratory effort is even, unlabored, Respiratory pattern is regular, symmetrical. 22:10 General: Behavior is aggressive to talk, talking to herself while in the room. she rg5 started screaming after initially injecting the geodon IM, she said I don't need it \\T\\ take it out.. 23:00 Reassessment: No changes from previously documented assessment. Patient and/or family rg5 updated on plan of care and expected duration. Pain level reassessed. 23:00 General: Behavior is calm. Respiratory: Airway is patent Trachea midline Respiratory rg5 effort is even, unlabored, Respiratory pattern is regular, symmetrical. 06/24 00:15 Reassessment: No changes from previously documented assessment. Patient and/or family rg5 updated on plan of care and expected duration. Pain level reassessed. Psych: 06/23 19:00 [place] Suicide Severity Screening: In the past month, have you wished you were rg5 or wished you could go to sleep and not wake up? Patient responds "yes." "In the past month, have you actually had any thoughts of killing yourself?" Patient responds "yes." "In your lifetime, have you ever done anything, started to do anything, or prepared to do anything to end your life?" Patient responds "yes." Patient reports suicidal intent within 3 past months. 19:00 Subjective: Hallucinations are visual, suspected. Objective: Patient is cooperative, rg5 restless. Interventions: Removed personal items and placed in bag. Patient placed in hospital gown. Searched person for dangerous items. Urine collected and sent for urine drug test. Belonging list filled out. Safety Checks: Personal items have been removed. Door is open. Visitors are present. Pt denies substance abuse. Commitment: Patient will be an involuntary commitment. Vital Signs: 15:36 BP 146 / 98; Pulse 118; Resp 18 S; Temp 98(O); Pulse Ox 97% on R/A; Weight 65.77 kg kc6 (R); Height 5 ft. 4 in. (R); 18:19 BP 138 / 86; Pulse 105; Resp 18; Pulse Ox 100% ; mb9 19:00 BP 126 / 90; Pulse 82; Resp 17; Temp 98.7(O); Pulse Ox 100% on R/A; vk 06/24 00:59 BP 118 / 87; Pulse 81; Resp 17; Temp 98(O); Pulse Ox 100% on R/A; Pain 0/10; rg5 06/23 15:36 Body Mass Index 24.89 (65.77 kg, 162.56 cm) 6 06/24 00:59 Pain Scale: Adult [facility] ED Course: 06/23 15:33 Patient arrived in ED. im 15:34 Vangie Grayson MD is Attending Physician. sd2 15:37 Thania Duncan, HILLARY is Primary Nurse. mb9 15:38 Triage completed. kc6 15:38 Arm band placed on. kc6 15:44 Bed in low position. Provided Education on: press call light if needing anything. mb9 15:44 No provider procedures requiring assistance completed. mb9 16:12 Ethanol Sent. mb9 16:12 Salicylate Sent. mb9 16:12 CBC with Diff Sent. mb9 16:12 CMP Sent. mb9 16:12 Acetaminophen Sent. mb9 18:58 Police notified at 19:00 to request LANDON on patient. ty 19:00 Patient has correct armband on for positive identification. Bed in low position. 5 19:08 Report given to HILLARY Hoskins. mb9 20:03 Safety checks: Items removed: Family/friend present: yes. Sitter present: Yes. Patient vk has correct armband on for positive identification. Bed in low position. Side rails up X 1. Adult w/ patient. All of patients belongings have been given to family, patient was also asked to give family wig stated "she was leaving and did not have to give me a damn thing" advised patient all property will have to be given to family or we can give property to security patient then threw wig at me and stated "here just take the damn thing." Family did take all patients belongings. 20:20 Diet: Patient given snack. vk 20:30 faxed pt clinical's to ([facility], [facility], [facility], [facility], [facility], [facility] and [facility]. 20:36 zenobia from [facility] called to do nurse to nurse. kmf 20:55 pt was accepted to [facility] by Dr. Roland Bay \\T\\ 2044. AOC given by Roy[facility] \\T\\2044. Contacted [facility] to get a transfer warrant signed by Judge Higginbotham. 21:15 No apparent distress. Resting quietly. rg5 21:50 transfer transportation to receiving facility. rg5 21:50 Sitter at bedside. Assisted to bathroom. rg5 22:00 Attending Physician role handed off by Vangie Grayson MD [facility] 22:00 Greg Barry MD is Attending Physician. efraín 22:07 Contacted [facility] to Transfer PT via mental health deputy. kmf 22:13 Appears angry. Appears restless. rg5 22:24 patient was given Geodon, while nurse was injecting medication patient was advised that vk it will burn. Patient then started screaming and cursing at staff stated that she was going to be leaving patient was advised that she is under a LANDON and given explanation by staff what it meant, patient then asked to speak with her edge banding machine offbearer to complain, advised patient we would call data warehouse consultant and directed patient back to room multiple times, finally patient agreed to go back to room still cursing staff. 23:00 Resting quietly. Appears to be sleeping. rg5 23:00 Noise minimized. Head of bed lowered. rg5 06/24 00:15 Resting quietly. Appears to be sleeping. rg5 01:02 IV discontinued, bleeding controlled, No redness/swelling at site. Pressure dressing rg5 applied. Administered Medications: 06/23 16:21 Not Given (Other Intervention Used): lorazepam2 mg IM once mb9 16:22 Drug: Ativan IVP 2 mg IVP once Route: IVP; Site: right forearm; mb9 18:47 Follow up: Response: No adverse reaction mb9 19:42 Drug: Nicotine Transdermal Patch 21 mg/24 hr 1 patches Transdermal once Route: rg5 Transdermal; Site: affected area; 20:25 Drug: Diazepam PO 5 mg PO once Route: PO; rg5 20:45 Follow up: Response: No adverse reaction rg5 22:10 Not Given (Patient Refused): ufmmax47 mg IM once rg5 Medication: 15:44 VIS not applicable for this client. mb9 Outcome: 19:57 ER care complete, transfer ordered by . sd2 06/24 01:00 Transferred Note: [facility] rg5 Condition: stable Discharge instructions given to police, Instructed on the need for transfer, 01:03 Patient left the ED. rg5 Signatures: Greg Barry MD MD cha Bryson, James, RN RN Vangie Ramos MD MD sd2 Blanca Telles RN RN kc6 Anna Marie Scott, RN RN kb3 Thania Duncan, RN RN mb9 Heather Torres Kelsey Maroul kmf Kruse, Vivian vk Yandell, Tylor ty Gallardo, Rommel, RN RN rg5 Corrections: (The following items were deleted from the chart) 06/23 15:42 15:36 Method Of Arrival: Ambulatory kc6 kc6 20:28 20:03 All of patients belongings have been given to family, patient was also asked to vk give family wig stated "she was leaving and did not have to give me a damn thing" advised patient all property will have to be given to family patient or we can give property to security patient then threw wig at me and stated "here just take the damn thing." vk 22:19 22:13 General: Behavior is rg5 rg5 22:21 22:12 General: Behavior is rg5 rg5 22:21 22:15 General: Behavior is aggressive to talk, talking to herself while in the room. rg5 she started screaming after initially injecting the geodon IM, she said I don't need it \\T\\ take it out.. rg5 23:39 23:00 Reassessment: Patient and/or family updated on plan of care and expected rg5 duration. Pain level reassessed. Patient is alert, oriented x 3, equal unlabored respirations, skin warm/dry/pink. rg5
--- NOTE | 2024-06-23 19:58 | EDPHYS ---
Physician Documentation [facility] Name: Anne Marie Cruz Age: 43 yrs Sex: Female : 1980 Arrival Date: 06/23/2024 Time: 15:31 Bed 16 Private MD: ELIA Physician Greg Barry HPI: 06/23 16:06 This 43 yrs old Female presents to ER via Law Enforcement with complaints of Psych sd2 Problem. 16:06 43 yo F presents via law enforcement with CC of psychiatric problem. Reports hx of sd2 bipolar disorder and per records amphetamine abuse. Before I walked into room, patient was speaking rapidly to a person she believed was in the room spying on her. She does not answer questions appropriately and is a poor historian with tangential thought processes and pressured speech. . 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 - Infectious Disease History:: Denies. - Social history:: Smoking status: Patient reports the use of cigarette tobacco products, smokes two packs cigarettes per day. ROS: 16:06 Unable to obtain ROS due to psychosis, unable to answer questions appropriately, sd2 Exam: 16:06 Constitutional: This is a well developed, well nourished patient who is awake, alert, sd2 and in no acute distress. Head/Face: Normocephalic, atraumatic. Eyes: EOMI, normal conjunctiva bilaterally Cardiovascular: Regular rate and rhythm with a normal S1 and S2. No gallops, murmurs, or rubs. 2+ distal pulses. Respiratory: Lungs have equal breath sounds bilaterally, clear to auscultation and percussion. No rales, rhonchi or wheezes noted. No increased work of breathing, no retractions or nasal flaring. Abdomen/GI: Soft, non-tender, with normal bowel sounds. No guarding or rebound. No evidence of tenderness throughout. Skin: Warm, dry with normal turgor. Normal color with no rashes, no lesions, and no evidence of cellulitis. MS/ Extremity: Pulses equal, no cyanosis. Neurovascular intact. Full, normal range of motion. Psych: Awake, alert, unclear orientation. Pt exhibits rapid pressured speech and responding to internal stimuli. Vital Signs: 15:36 BP 146 / 98; Pulse 118; Resp 18 S; Temp 98(O); Pulse Ox 97% on R/A; Weight 65.77 kg kc6 (R); Height 5 ft. 4 in. (R); 18:19 BP 138 / 86; Pulse 105; Resp 18; Pulse Ox 100% ; mb9 19:00 BP 126 / 90; Pulse 82; Resp 17; Temp 98.7(O); Pulse Ox 100% on R/A; vk 06/24 00:59 BP 118 / 87; Pulse 81; Resp 17; Temp 98(O); Pulse Ox 100% on R/A; Pain 0/10; rg5 06/23 15:36 Body Mass Index 24.89 (65.77 kg, 162.56 cm) 6 06/24 00:59 Pain Scale: Adult [facility] MDM: 06/23 16:04 Patient medically screened. sd2 16:06 Differential diagnosis: drug withdrawal. acute psychotic break, depression, psychosis sd2 secondary to non-compliance, among others. Data reviewed: vital signs, nurses notes. Historians other than the Patient: Law enforcement: provides initial report that patient was running into traffic. Care significantly affected by the following chronic conditions: Bipolar disorder. Care significantly affected by the following Social Determinants of Health: Misuse of alcohol and/or drugs. 19:55 ED course: Law enforcement writing [place] on patient due to decompensation to the point sd2 that patient is a harm to herself. She is medically cleared at this time. Pending transfer and MAT team evaluation. . 06/23 16:05 Order name: CBC with Diff; Complete Time: 17:16 sd2 06/23 16:05 Order name: CMP; Complete Time: 17:16 sd2 06/23 16:05 Order name: Acetaminophen; Complete Time: 17:16 sd2 06/23 16:05 Order name: Salicylate; Complete Time: 17:16 sd2 06/23 16:05 Order name: Ethanol; Complete Time: 17:16 sd2 06/23 16:05 Order name: Urine Drug Screen; Complete Time: 19:33 sd2 06/23 16:05 Order name: Urinalysis w/ reflexes; Complete Time: 19:33 sd2 06/23 16:05 Order name: Test, Urine; Complete Time: 19:33 sd2 Administered Medications: 16:21 Not Given (Other Intervention Used): lorazepam2 mg IM once mb9 16:22 Drug: Ativan IVP 2 mg IVP once Route: IVP; Site: right forearm; mb9 18:47 Follow up: Response: No adverse reaction mb9 19:42 Drug: Nicotine Transdermal Patch 21 mg/24 hr 1 patches Transdermal once Route: rg5 Transdermal; Site: affected area; 20:25 Drug: Diazepam PO 5 mg PO once Route: PO; rg5 20:45 Follow up: Response: No adverse reaction rg5 22:10 Not Given (Patient Refused): [id number] mg IM once rg5 Disposition: 19:57 Chart complete. sd2 Disposition Summary: 06/23/24 19:57 Transfer Ordered Notes: Transfer Location: Psych Facility sd2 Reason: Higher level of care sd2 Condition: Stable sd2 Problem: an acute exacerbation sd2 Symptoms: have improved sd2 Accepting Physician: Accepting (06/24/24 01:03) rg5 Diagnosis - Auditory hallucinations sd2 - Bipolar disorder, current episode manic severe with psychotic features sd2 Forms: - Medication Reconciliation Form sd2 - SBAR form sd2 Signatures: Dispatcher [employer] EDGreg Montiel MD MD cha Dunlop, Stephanie, MD MD sd2 Blanca Telles RN RN kc6 Anna Marie Scott RN RN kb3 Thania Duncan RN RN mb9 Gato Shaw RN RN rg5 Corrections: (The following items were deleted from the chart) 17:29 [facility] sd2 ph 06/24 01:03 06/23 19:57 Accepting MD gonzales rg5
[2024-06-23] MEDS ORDERED: DIAZEPAM 5 MG TABLET ONE (20:21)
[2024-06-23] MEDS ORDERED: ZIPRASIDONE MESYLA 20 MG/VIAL IM ONE (22:03)
[2024-06-24 01:11] VITALS: O2SAT 100
[2024-06-24 01:15] VITALS: BP 118/87; TEMP 98
== END 2024-06-24 01:03 ==
LOC: ER 15:31
DX: F31.2 Bipolar disorder, current episode manic severe with psychotic features (principal); F17.210 Nicotine dependence, cigarettes, uncomplicated
CPT/HCPCS: 85025; 81001; 36415; 81025; 80053; 80307; 96374; 99285; 80143; 80179; 82077; J3486